=== PATIENT | female | born 1970 | race Two or more races ===

== ENCOUNTER 2016-06-05 12:08 | Emergency (ER) | payer OTHER ==
[~2016-06-05] VITALS: Ht 162.6 cm; Wt 50.0 kg
[~2016-06-05 12:08] MED LIST: HUMALOG SQ; LANTUS2P SQ; OXYC-259 PO; OXYC-395 PO; PROM2SUP RECTAL; ZOFR4TAB PO
[2016-06-05 12:11] VITALS: BP 141/91; PULSE 117; RESP 14; TEMP 98.2; O2SAT 98
[2016-06-05 12:57] LABS: BLOOD, URINE NEG (NEG); GLUCOSE,URINE 1000 mg/dL (NEG); KETONE, URINE NEG (NEG); NITRITE,URINE NEG (NEG); PH, URINE 6.5 (5.0-8.5); SQUAMOUS EPITHELIAL CELL URINE 3 /hpf (0-5); URINE COLOR DARK-YELLOW (YELLW/STRAW)
[2016-06-05 13:03] LABS: COMMENT (UR) CULT NOT INDICATED; CULTURE IF INDICATED CULT NOT INDICATED
--- NOTE | 2016-06-05 13:09 | PD ---
HPI Chief Complaint: Flank/Kidney Pain Time Seen by Provider: 13:09 Travel History International Travel<30 days: No Contact w/Intl Traveler<30days: No Traveled to known affect area: No History of Present Illness HPI 45-year-old female with history of primary sclerosing cholangitis, history of non-Hodgkin's lymphoma, chronic recurrent abdominal pain, kidney stones, diabetes mellitus, presents to emergency department for evaluation of right upper quadrant and flank pain or sustained for the last 3-4 weeks. Patient was seen here at the end of April, admitted at one point in evaluated by general surgery. Patient was referred to [facility]. Patient states that she did go to [facility] and followed up and she has another appointment in August. She tells me that they're "doing nothing." She has been nauseous. She reports urinary frequency, urgency, and decreased output. No burning. Feels as though her abdomen is bloated. She has had nights sweats with no definitive fever. She has no other symptoms reported this time. 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) Cardiovascular Problems: No Chemotherapy: Yes (10/02) Chest Pain: Yes Diabetes: Yes Diminished Hearing: No Endocrine: Yes Gastrointestinal Disorders: Yes (BILIARY DRAIN ) Headaches: No Heparin Induced Thrombocytopen: No Implanted Vascular Access Dvce: Yes Kidney Stones: Yes Psychiatric: Yes (SLIGHTLY CLAUSTROPHOBIC) Respiratory: No Immunizations Current: No Menopausal: Yes : 2 Para: 2 Miscarriage: 0 : 0 Past Surgical History Abdominal Surgery: Yes ( SPLENECTOMY, 2004, BILIARY DRAIN PLACEMENT , LIVER BIOPSY) Body Medical Devices: BILIARY DRAIN Neurologic Surgery: No Other Surgery: Yes (BILIARY DRAIN PLACED, LIVER BIOPSY) Social History Alcohol Use: No Tobacco Use: No Substance Use: No Allergies-Medications (Allergen,Severity, Reaction): Coded Allergies: Gadolinium Derivatives (Verified Allergy, Severe, BREATHING PROBLEMS, N/V, CHILLS, 06/05/16) MRI PRECAUTION (Verified Allergy, Severe, NAUSEA; PER PATIENT IT IS A GADOLINIUM ALLERGY KMD 11/25/12, 06/05/16) Morphine (Verified Allergy, Severe, BREATHING PROBLEMS, 06/05/16) Toradol (Verified Allergy, Severe, Shortness of Breath, 06/05/16) *MDRO Multi-Drug Resistant Organism (Verified Adverse Reaction, Unknown, ) MRSA (abdomen) - 03/2013, 04/2014 MRSA screen NEGATIVE - 04/15/16 & 04/17/16 Cleared per Infection Control Reported Meds & Prescriptions Reported Meds & Active Scripts Active Phenergan Supp (Promethazine HCl) 12.5 Mg Supp 12.5 Mg RECTAL Q6H PRN Zofran (Ondansetron HCl) 4 Mg Tab 4 Mg PO Q6HR PRN Oxycodone (Oxycodone HCl) 10 Mg Tab 10 Mg PO Q4H PRN Oxycontin (Oxycodone HCl) 10 Mg Tab 20 Mg PO Q12HR Reported Humalog Inj (Insulin Human Lispro) 1,000 Unit/10 Ml Vial 3 Units SQ ACHS Max dose at bedtime:( )units; sugars< 70,(0)units; sugars 150-199,(1)unit; sugars 200-249,(3)units; sugars 250-299,(5)units; sugars 300-349,(7)units; sugars more than 349,(9)units. Lantus Inj (Insulin Glargine) 1,000 Unit/10 Ml Vial 15 Units SQ BIDAC Review of Systems Except as stated in HPI: all other systems reviewed are Neg Physical Exam Narrative GENERAL: Well-nourished female patient, ambulatory no acute distress SKIN: Warm and dry. HEAD: Atraumatic. Normocephalic. EYES: Pupils equal and round. No scleral icterus. No injection or drainage. ENT: No nasal bleeding or discharge. Mucous membranes pink and moist. NECK: Trachea midline. No JVD. CARDIOVASCULAR: Regular rate and rhythm. No murmur appreciated. RESPIRATORY: No accessory muscle use. Clear to auscultation. Breath sounds equal bilaterally. GASTROINTESTINAL: Abdomen soft, nondistended. Tenderness elicited to palpation right upper quadrant. Patient does have scar tissue on the abdomen and what is seems to be palpable scar tissue around her umbilicus MUSCULOSKELETAL: No obvious deformities. No clubbing. No cyanosis. No edema. NEUROLOGICAL: Awake and alert. No obvious cranial nerve deficits. Motor grossly within normal limits. Normal speech. PSYCHIATRIC: Appropriate mood and affect; insight and judgment normal. Data Data Last Documented VS Vital Signs Date Time Temp Pulse Resp B/P Pulse Ox O2 Delivery O2 Flow Rate FiO2 06/05/16 12:11 98.2 117 14 141/91 98 Room Air Orders Urinalysis - C+S If Indicated (06/05/16 12:22) Complete Blood Count With Diff (06/05/16 12:22) Comprehensive Metabolic Panel (06/05/16 13:09) Lipase (06/05/16 13:09) Labs Laboratory Tests Test 06/05/16 06/05/16 12:25 13:41 Urine Color DARK-YELLOW Urine Turbidity CLEAR Urine pH 6.5 Urine Specific [place] 1.030 Urine Protein 30 mg/dL Urine Glucose (UA) 1000 mg/dL Urine Ketones NEG mg/dL Urine Occult Blood NEG Urine Nitrite NEG Urine Bilirubin SMALL Urine Urobilinogen LESS THAN 2.0 MG/DL Urine Leukocyte Esterase NEG Urine RBC 1 /hpf Urine WBC 1 /hpf Urine Squamous Epithelial 3 /hpf Cells Urine Amorphous Sediment RARE Microscopic Urinalysis Comment CULT NOT INDICATED White Blood Count 10.7 TH/MM3 Red Blood Count 4.22 MIL/MM3 Hemoglobin 12.5 GM/DL Hematocrit 37.3 % Mean Corpuscular Volume 88.4 FL Mean Corpuscular Hemoglobin 29.6 PG Mean Corpuscular Hemoglobin 33.5 % Concent Red Cell Distribution Width 15.7 % Platelet Count 404 TH/MM3 Mean Platelet Volume 10.6 FL Neutrophils (%) (Auto) % Lymphocytes (%) (Auto) % Monocytes (%) (Auto) % Eosinophils (%) (Auto) % Basophils (%) (Auto) % Neutrophils # (Auto) TH/MM3 Lymphocytes # (Auto) TH/MM3 Monocytes # (Auto) TH/MM3 Eosinophils # (Auto) TH/MM3 Basophils # (Auto) TH/MM3 CBC Comment AUTO DIFF Differential Total Cells 100 Counted Neutrophils % (Manual) 76 % Band Neutrophils % 8 % Lymphocytes % 12 % Monocytes % 4 % Neutrophils # (Manual) 9.0 TH/MM3 Differential Comment FINAL DIFF MANUAL Platelet Estimate NORMAL Platelet Morphology Comment NORMAL Target Cells 2+ Sodium Level 134 MEQ/L Potassium Level 3.9 MEQ/L Chloride Level 98 MEQ/L Carbon Dioxide Level 26.2 MEQ/L Anion Gap 10 MEQ/L Blood Urea Nitrogen 8 MG/DL Creatinine 0.46 MG/DL Estimat Glomerular Filtration 147 ML/MIN Rate Random Glucose 323 MG/DL Calcium Level 8.8 MG/DL Total Bilirubin 2.6 MG/DL Aspartate Amino Transf 145 U/L (AST/SGOT) Alanine Aminotransferase 134 U/L (ALT/SGPT) Alkaline Phosphatase 1342 U/L Total Protein 7.2 GM/DL Albumin 2.5 GM/DL Lipase 165 U/L MDM Medical Decision Making Medical Screen Exam Complete: Yes Emergency Medical Condition: Yes Medical Record Reviewed: Yes Differential Diagnosis Recurrent abdominal pain, sclerosing cholangitis, cirrhosis, renal calculi, pyelonephritis Narrative Course 45 year-old female presents to emergency department for evaluation. Workup was initiated in the triage area. Once a medical bed becomes available, patient will be transferred to the care of the provider did not pod. Condition: Stable Mohini Coffey Jun 05, 2016 13:09
[2016-06-05 13:48] LABS: HEMATOCRIT 37.3 % (35.0-46.0); MEAN CELL VOLUME 88.4 FL (80.0-100.0); MEAN CORPUSCULAR HEMOGLOBIN 29.6 PG (27.0-34.0); MEAN CORPUSCULAR HGB CONC 33.5 % (32.0-36.0); PLATELET COUNT 404 TH/MM3 (150-450); RED BLOOD COUNT 4.22 MIL/MM3 (4.00-5.30); RED CELL DISTRIBUTION WIDTH 15.7 % (11.6-17.2); WHITE BLOOD COUNT 10.7 TH/MM3 (4.0-11.0)
[2016-06-05 13:55] LABS: HEMO FLAGS AUTO DIFF
[2016-06-05 14:23] LABS: ANION GAP 10 MEQ/L (5-15); AST (GOT) 145 U/L (15-37); BICARBONATE 26.2 MEQ/L (21.0-32.0); BLOOD UREA NITROGEN 8 MG/DL (7-18); CHLORIDE 98 MEQ/L (98-107); GLOMERULAR FILTRATION RATE 147 ML/MIN (>89); POTASSIUM 3.9 MEQ/L (3.5-5.1); SODIUM (NA) 134 MEQ/L (136-145)
[2016-06-05 14:36] LABS: BANDS 8 % (0-6); PLATELET ESTIMATE SMEAR NORMAL (NORMAL); PLATELET MORPHOLOGY NORMAL (NORMAL); POLYS (SEG NEUTROPHILS) 76 % (16-70); SCAN/DIFF FINAL DIFF MANUAL; TARGET CELLS 2+ (NORMAL); WBC DIFF SAMPLE 100
[2016-06-05 14:40] LABS: ALKALINE PHOSPHATASE 1342 U/L (45-117); ALT (GPT) 134 U/L (10-53); TOTAL BILIRUBIN ADULT 2.6 MG/DL (0.2-1.0)
[2016-06-05] MEDS ORDERED: HYDROmorphone HCL PF 1 MG/ML VIAL IV PUSH ONE (15:30)
[2016-06-05] MEDS ORDERED: SODIUM CHLOR 0.9% 1000 ML INJ 1,000 ML IV ONE (15:30)
[2016-06-05] MEDS ORDERED: ONDANSETRON HCL 4 MG/2 ML VIAL IV PUSH ONE (15:30)
--- NOTE | 2016-06-05 16:26 | RADRPT ---
EXAM DATE/TIME: 06/05/2016 15:51 [facility] COMPARISON: MRCP W/O CONTRAST, April 19, 2016, 18:24. CT ABDOMEN & PELVIS W/O CONTRAS T, March 13, 2016, 22:13. INDICATIONS : Right flank pain and nausea. ORAL CONTRAST: No oral contrast ingested. RADIATION DOSE: 13.4 CTDIvol (mGy) MEDICAL HISTORY : Renal calculi. Diabetes mellitus type 1. "Liver tumor." non-Hodgkin's lymphoma. SURGICAL HISTORY : Splenectomy. Biliary drain. ENCOUNTER: Initial ACUITY: 1 month PAIN SCALE: 8/10 LOCATION: Right flank TECHNIQUE: Volumetric scanning of the abdomen and pelvis was performed. Using automated exposure control and adjustment of the mA and/or kV according to patient size, radiation dose was kept as low as reasonably achievable to obtain optimal diagnostic quality images. FINDINGS: There is a cirrhotic appearance of the liver with atrophy of the right lobe and hypertr ophy of the left lobe. There continues to be pneumobilia. This was present previously. There is rg e heterogeneity to the right lobe of the liver. This was present previously. The liver has a nodular surface. The spleen appears absent. There is a 0.7 cm nonobstructing left renal stone seen at the inferior collecting system. The kidneys appear otherwise normal for a noncontrast CT examination. T he adrenal glands are unremarkable. The pancreatic duct appears dilated measuring up to 9 mm in the pancreatic body. The duct does not appear clearly dilated at the pancreatic head. The bowel is gross ly unremarkable. The pelvic structures appear grossly intact. The lung bases are clear. There is some degenerative change at the lower lumbar spine. CONCLUSION: 1. Cirrhotic liver. 2. Pneumobilia. This was present previously. 3. Dilatation of the pancreatic duct at the pancreatic body measuring 9 mm. This appearance was prese nt previously. The pancreatic duct does not appear definitely dilated at the pancreatic head. A con trast enhanced CT examination using a pancreatic protocol could be used to further evaluate for any c ause for some ductal obstruction. 4. Nonobstructing left renal stones. Mele Cuba MD on June 05, 2016 at 16:11 Board Certified Radiologist. This report was verified electronically.
[2016-06-05] MEDS ORDERED: OXYC-395 PO (16:38)
[2016-06-05] MEDS ORDERED: ZOFR4TAB3 SL (16:38)
--- NOTE | 2016-06-05 16:38 | PD ---
Data Data Last Documented VS Vital Signs Date Time Temp Pulse Resp B/P Pulse Ox O2 Delivery O2 Flow Rate FiO2 06/05/16 12:11 98.2 117 14 141/91 98 Room Air Orders Urinalysis - C+S If Indicated (06/05/16 12:22) Complete Blood Count With Diff (06/05/16 12:22) Comprehensive Metabolic Panel (06/05/16 13:09) Lipase (06/05/16 13:09) Ct Abd/Pel W/O Iv Contrast (06/05/16 ) Sodium Chlor 0.9% 1000 Ml Inj (Ns 1000 M (06/05/16 15:30) Hydromorphone Pf Inj (Dilaudid Pf Inj) (06/05/16 15:30) Ondansetron Inj (Zofran Inj) (06/05/16 15:30) Labs Laboratory Tests Test 06/05/16 06/05/16 12:25 13:41 Urine Color DARK-YELLOW Urine Turbidity CLEAR Urine pH 6.5 Urine Specific [place] 1.030 Urine Protein 30 mg/dL Urine Glucose (UA) 1000 mg/dL Urine Ketones NEG mg/dL Urine Occult Blood NEG Urine Nitrite NEG Urine Bilirubin SMALL Urine Urobilinogen LESS THAN 2.0 MG/DL Urine Leukocyte Esterase NEG Urine RBC 1 /hpf Urine WBC 1 /hpf Urine Squamous Epithelial 3 /hpf Cells Urine Amorphous Sediment RARE Microscopic Urinalysis Comment CULT NOT INDICATED White Blood Count 10.7 TH/MM3 Red Blood Count 4.22 MIL/MM3 Hemoglobin 12.5 GM/DL Hematocrit 37.3 % Mean Corpuscular Volume 88.4 FL Mean Corpuscular Hemoglobin 29.6 PG Mean Corpuscular Hemoglobin 33.5 % Concent Red Cell Distribution Width 15.7 % Platelet Count 404 TH/MM3 Mean Platelet Volume 10.6 FL Neutrophils (%) (Auto) % Lymphocytes (%) (Auto) % Monocytes (%) (Auto) % Eosinophils (%) (Auto) % Basophils (%) (Auto) % Neutrophils # (Auto) TH/MM3 Lymphocytes # (Auto) TH/MM3 Monocytes # (Auto) TH/MM3 Eosinophils # (Auto) TH/MM3 Basophils # (Auto) TH/MM3 CBC Comment AUTO DIFF Differential Total Cells 100 Counted Neutrophils % (Manual) 76 % Band Neutrophils % 8 % Lymphocytes % 12 % Monocytes % 4 % Neutrophils # (Manual) 9.0 TH/MM3 Differential Comment FINAL DIFF MANUAL Platelet Estimate NORMAL Platelet Morphology Comment NORMAL Target Cells 2+ Sodium Level 134 MEQ/L Potassium Level 3.9 MEQ/L Chloride Level 98 MEQ/L Carbon Dioxide Level 26.2 MEQ/L Anion Gap 10 MEQ/L Blood Urea Nitrogen 8 MG/DL Creatinine 0.46 MG/DL Estimat Glomerular Filtration 147 ML/MIN Rate Random Glucose 323 MG/DL Calcium Level 8.8 MG/DL Total Bilirubin 2.6 MG/DL Aspartate Amino Transf 145 U/L (AST/SGOT) Alanine Aminotransferase 134 U/L (ALT/SGPT) Alkaline Phosphatase 1342 U/L Total Protein 7.2 GM/DL Albumin 2.5 GM/DL Lipase 165 U/L [facility] Supervised Visit with MYRON: Yes Narrative Course The history, exam, and medical decision-making in the associated midlevel provider note were completed with my assistance. I reviewed and agree with the findings presented. I attest that I had a [id number] encounter with the patient on the same day, and personally performed and documented my assessment and findings in the medical record. *My assessment and Findings: This is a 45-year-old female who has a history of primary sclerosing cholangitis who presents to the emergency department with persistent right upper quadrant and right flank pain, constant, moderate severity, associated with intermittent vomiting. Her symptoms of been chronic and intermittent going on for more than a month. She's been trying to get into her primary care physician but can't get into him until early June taken and her flaring machine operator in [place] until August. She's not taking anything for pain at home. Her symptoms are somewhat different in that she has more right flank pain than normal and she thinks she may have a kidney stone. She is nontoxic appearing on exam. She does not appear dehydrated. Her labs appear similar to her baseline. She is not febrile. I long conversation with this patient as her symptoms are chronic in nature and she requires chronic pain management and a flaring machine operator to follow her. I don't think she requires admission to the hospital at this time as her symptoms are unchanged. Patient can be discharged home with pain control. Diagnosis Primary Impression: Sclerosing cholangitis Patient Instructions: General Instructions Additional Instruction: If you develop severe or worsening abdominal pain, fever>100.4, persistent vomiting or inability to eat or drink return to the emergency department immediately. Follow up with your primary care physician as soon as possible for further evaluation. Med/Other Pt SpecificInfo: Prescription(s) given Scripts Ondansetron Odt (Zofran Odt)4 Mg Tab4 Mg SL Q6HR PRN (Nausea/Vomiting) #30 TAB Ref 0 Prov:Vivian Fortune MD 06/05/16 Oxycodone 10 Mg Tab10 Mg PO Q6H PRN (PAIN) #20 TAB Ref 0 Prov:Vivian Fortune MD 06/05/16 Disposition: 01 DISCHARGE HOME Condition: Stable Vivian Fortune MD Jun 05, 2016 16:38
[2016-06-05 17:47] VITALS: BP 131/72
== END 2016-06-05 17:49 | disposition home or self-care (01) ==
LOC: NEPC 12:08
DX: K83.0 Cholangitis (principal); R11.0 Nausea; R11.10 Vomiting, unspecified; R14.0 Abdominal distension (gaseous); R39.15 Urgency of urination; E11.9 Type 2 diabetes mellitus without complications
CPT/HCPCS: 74176; 80053; 81001; 83690; 85007; 85027; 96374; 96375; 99284; J1170; J2405; J7030

== ENCOUNTER 2016-06-13 16:12 | Emergency (ER) | payer OTHER ==
[~2016-06-13] VITALS: Ht 162.6 cm; Wt 52.5 kg
[~2016-06-13 16:12] MED LIST changes: +ZOFR4TAB3 SL
[2016-06-13 16:48] VITALS: BP 112/76; PULSE 89; TEMP 98.7; O2SAT 99
[2016-06-13] MEDS ORDERED: SODIUM CHLOR 0.9% 1000 ML INJ 1,000 ML IV ONE ×2 (17:00→19:00)
[2016-06-13] MEDS ORDERED: ONDANSETRON HCL 4 MG/2 ML VIAL IV PUSH ONE (17:00)
[2016-06-13] MEDS ORDERED: HYDROmorphone HCL PF 1 MG/ML VIAL IV PUSH ONE (17:00)
[2016-06-13] MEDS ORDERED: SODIUM CHLORIDE 0.9% FLUSH 5 ML FLUSH IVF PRN (17:00)
[2016-06-13 17:21] LABS: BLOOD, URINE NEG (NEG); GLUCOSE,URINE 1000 mg/dL (NEG); KETONE, URINE NEG (NEG); NITRITE,URINE NEG (NEG); PH, URINE 6.5 (5.0-8.5); SQUAMOUS EPITHELIAL CELL URINE 2 /hpf (0-5); URINE COLOR YELLOW (YELLW/STRAW)
--- NOTE | 2016-06-13 17:24 | PD ---
HPI Chief Complaint: Abdominal Pain Time Seen by Provider: 16:45 Travel History International Travel<30 days: No Contact w/Intl Traveler<30days: No Traveled to known affect area: No History of Present Illness HPI 45-year-old female with history of non-Hodgkin's lymphoma status post chemotherapy in 2004, sclerosing cholangitis, chronic abdominal pain, seen in the emergency department several times for recurrent abdominal pain, last seen on 06/05/16, here for evaluation of right upper quadrant abdominal pain. The patient reports that her chocolate refining roller is in [place]. She states that her pain has been gone for the last 2 months. She called her chocolate refining roller today who advised her to go to her nearest emergency department for evaluation. The patient has had subjective fevers and chills. Pain is sharp, right upper quadrant, goes up and down her right flank, constant , moderate to severe, worse with movement and palpation. The patient also reports feeling nauseous and having several episodes of vomiting. No diarrhea. She states that her urine is dark and she thinks her eyes looked yellow. 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) Cardiovascular Problems: No Chemotherapy: Yes (10/02) Chest Pain: Yes Diabetes: Yes (insulin diabetic) Patient Takes Glucophage: No Diminished Hearing: No Endocrine: Yes Gastrointestinal Disorders: Yes Genitourinary: Yes Headaches: No Heparin Induced Thrombocytopen: No Implanted Vascular Access Dvce: Yes Kidney Stones: Yes Medical other: Yes Musculoskeletal: Yes Psychiatric: Yes (SLIGHTLY CLAUSTROPHOBIC) Respiratory: No Immunizations Current: No Ulcer: Yes ?: Unknown Menopausal: Yes : 2 Para: 2 Miscarriage: 0 : 0 Past Surgical History Surgical History: No Previous Surgery Body Medical Devices: BILIARY DRAIN Neurologic Surgery: No Other Surgery: Yes (BILIARY DRAIN PLACED, LIVER BIOPSY) Social History Alcohol Use: No Tobacco Use: No Substance Use: No Allergies-Medications (Allergen,Severity, Reaction): Coded Allergies: Gadolinium Derivatives (Verified Allergy, Severe, BREATHING PROBLEMS, N/V, CHILLS, 06/13/16) MRI PRECAUTION (Verified Allergy, Severe, NAUSEA; PER PATIENT IT IS A GADOLINIUM ALLERGY KMD 11/25/12, 06/13/16) Morphine (Verified Allergy, Severe, BREATHING PROBLEMS, 06/13/16) Toradol (Verified Allergy, Severe, Shortness of Breath, 06/13/16) *MDRO Multi-Drug Resistant Organism (Verified Adverse Reaction, Unknown, ) MRSA (abdomen) - 03/2013, 04/2014 MRSA screen NEGATIVE - 04/15/16 & 04/17/16 Cleared per Infection Control Reported Meds & Prescriptions Reported Meds & Active Scripts Active Reported Humalog Inj (Insulin Human Lispro) 1,000 Unit/10 Ml Vial 3 Units SQ ACHS Max dose at bedtime:( )units; sugars< 70,(0)units; sugars 150-199,(1)unit; sugars 200-249,(3)units; sugars 250-299,(5)units; sugars 300-349,(7)units; sugars more than 349,(9)units. Lantus Inj (Insulin Glargine) 1,000 Unit/10 Ml Vial 15 Units SQ BIDAC Review of Systems Except as stated in HPI: all other systems reviewed are Neg Physical Exam Narrative GENERAL: Well-developed, thin, comfortable, no acute distress. SKIN: Warm and dry. No rash. HEAD: Atraumatic. Normocephalic. EYES: Pupils equal and round. Mild scleral icterus. No injection or drainage. ENT: No nasal bleeding or discharge. Mucous membranes pink and moist. NECK: Trachea midline. No JVD. CARDIOVASCULAR: Regular rate and rhythm. RESPIRATORY: No accessory muscle use. Clear to auscultation. Breath sounds equal bilaterally. GASTROINTESTINAL: Abdomen soft, nondistended. Mild diffuse abdominal tenderness without peritoneal signs. MUSCULOSKELETAL: No obvious deformities. No clubbing. No cyanosis. No edema. NEUROLOGICAL: Awake and alert. No obvious cranial nerve deficits. Motor grossly within normal limits. Normal speech. PSYCHIATRIC: Appropriate mood and affect; insight and judgment normal. Data Data Last Documented VS Vital Signs Date Time Temp Pulse Resp B/P Pulse Ox O2 Delivery O2 Flow Rate FiO2 06/13/16 18:36 87 138/83 96 Room Air 06/13/16 16:48 98.7 Orders Beta Hcg (Quant/Titer) (06/13/16 16:52) Complete Blood Count With Diff (06/13/16 16:52) Comprehensive Metabolic Panel (06/13/16 16:52) Lipase (06/13/16 16:52) Lactic Acid (06/13/16 16:52) Prothrombin Time / Inr (Pt) (06/13/16 16:52) Act Partial Throm Time (Ptt) (06/13/16 16:52) Urinalysis - C+S If Indicated (06/13/16 16:52) Ct Abd/Pel W Iv Contrast(Rout) (06/13/16 16:52) Iv Access Insert/Monitor (06/13/16 16:52) Ecg Monitoring (06/13/16 16:52) Oximetry (06/13/16 16:52) Sodium Chloride 0.9% Flush (Ns Flush) (06/13/16 17:00) Sodium Chlor 0.9% 1000 Ml Inj (Ns 1000 M (06/13/16 17:00) Hydromorphone Pf Inj (Dilaudid Pf Inj) (06/13/16 17:00) Ondansetron Inj (Zofran Inj) (06/13/16 17:00) Labs Laboratory Tests Test 06/13/16 06/13/16 16:59 17:30 Urine Color YELLOW Urine Turbidity CLEAR Urine pH 6.5 Urine Specific [place] 1.032 Urine Protein NEG mg/dL Urine Glucose (UA) 1000 mg/dL Urine Ketones NEG mg/dL Urine Occult Blood NEG Urine Nitrite NEG Urine Bilirubin NEG Urine Urobilinogen LESS THAN 2.0 MG/DL Urine Leukocyte Esterase NEG Urine RBC 2 /hpf Urine WBC 1 /hpf Urine Squamous Epithelial 2 /hpf Cells Microscopic Urinalysis Comment CULT NOT INDICATED White Blood Count 6.4 TH/MM3 Red Blood Count 3.90 MIL/MM3 Hemoglobin 11.5 GM/DL Hematocrit 34.6 % Mean Corpuscular Volume 88.8 FL Mean Corpuscular Hemoglobin 29.6 PG Mean Corpuscular Hemoglobin 33.3 % Concent Red Cell Distribution Width 15.8 % Platelet Count 359 TH/MM3 Mean Platelet Volume 11.7 FL Neutrophils (%) (Auto) 69.8 % Lymphocytes (%) (Auto) 12.0 % Monocytes (%) (Auto) 13.9 % Eosinophils (%) (Auto) 1.5 % Basophils (%) (Auto) 2.8 % Neutrophils # (Auto) 4.5 TH/MM3 Lymphocytes # (Auto) 0.8 TH/MM3 Monocytes # (Auto) 0.9 TH/MM3 Eosinophils # (Auto) 0.1 TH/MM3 Basophils # (Auto) 0.2 TH/MM3 CBC Comment AUTO DIFF Differential Comment AUTO DIFF CONFIRMED Platelet Estimate NORMAL Platelet Morphology Comment ENLARGED Target Cells 1+ Germain Cells 1+ Prothrombin Time 11.4 SEC Prothromb Time International 1.0 RATIO Ratio Activated Partial 28.0 SEC Thromboplast Time Sodium Level 134 MEQ/L Potassium Level 3.7 MEQ/L Chloride Level 98 MEQ/L Carbon Dioxide Level 26.5 MEQ/L Anion Gap 10 MEQ/L Blood Urea Nitrogen 7 MG/DL Creatinine 0.57 MG/DL Estimat Glomerular Filtration 115 ML/MIN Rate Random Glucose 443 MG/DL Lactic Acid Level 0.8 mmol/L Calcium Level 8.3 MG/DL Aspartate Amino Transf 131 U/L (AST/SGOT) Albumin 2.3 GM/DL Lipase 105 U/L [facility] Medical Decision Making Medical Screen Exam Complete: Yes Emergency Medical Condition: Yes Medical Record Reviewed: Yes Differential Diagnosis Chronic abdominal pain secondary to sclerosing cholangitis, ascending cholangitis, cholecystitis, nephrolithiasis, pyelonephritis, drug-seeking Narrative Course Initial vital signs show heart rate 89, blood pressure 112/76, pulse ox 99% on room air, oral temp of 98.7 degrees Fahrenheit. CBC shows WBC 6.4, hemoglobin 11.5, hematocrit 34.6, platelets 359, CMP is remarkable for random glucose 443. Her bicarbonate is 26.5. She is not in DKA. Lactic acid is 0.8. UA shows 1000 glucose which she has had in the past, not suggestive of UTI. Patient was given IV insulin, and 2 L of normal saline IV. At approximately 7:00 PM at the end of my shift the patient was signed out to oncoming provider Dr. Fortune who will follow up with imaging results and will disposition the patient. Naresh Almanza MD Jun 13, 2016 17:24
[2016-06-13 17:25] VITALS: O2SAT 95
[2016-06-13 17:26] LABS: COMMENT (UR) CULT NOT INDICATED; CULTURE IF INDICATED CULT NOT INDICATED
[2016-06-13 17:55] LABS: AUTOMATED NEUTROPHIL # 4.5 TH/MM3 (1.8-7.7); BASOPHIL # 0.2 TH/MM3 (0-0.2); BASOPHIL % 2.8 % (0.0-2.0); EOSINOPHIL # 0.1 TH/MM3 (0-0.4); EOSINOPHIL % 1.5 % (0.0-4.0); HEMATOCRIT 34.6 % (35.0-46.0); LYMPHOCYTE # 0.8 TH/MM3 (1.0-4.8); MEAN CELL VOLUME 88.8 FL (80.0-100.0); MEAN CORPUSCULAR HEMOGLOBIN 29.6 PG (27.0-34.0); MEAN CORPUSCULAR HGB CONC 33.3 % (32.0-36.0); MONO % 13.9 % (0.0-8.0); NEUT % 69.8 % (16.0-70.0); PLATELET COUNT 359 TH/MM3 (150-450); RED CELL DISTRIBUTION WIDTH 15.8 % (11.6-17.2); WHITE BLOOD COUNT 6.4 TH/MM3 (4.0-11.0)
[2016-06-13 18:00] LABS: HEMO FLAGS AUTO DIFF
[2016-06-13 18:08] LABS: PROTHROMBIN TIME - PATIENT 11.4 SEC (9.8-11.6)
[2016-06-13 18:35] LABS: SCAN/DIFF AUTO DIFF CONFIRMED
[2016-06-13 18:36] VITALS: BP 138/83; PULSE 87; O2SAT 96
[2016-06-13 18:36] LABS: BURR CELLS 1+ (NORMAL); PLATELET ESTIMATE SMEAR NORMAL (NORMAL); PLATELET MORPHOLOGY ENLARGED (NORMAL); TARGET CELLS 1+ (NORMAL)
[2016-06-13 18:41] LABS: ANION GAP 10 MEQ/L (5-15); AST (GOT) 131 U/L (15-37); BICARBONATE 26.5 MEQ/L (21.0-32.0); BLOOD UREA NITROGEN 7 MG/DL (7-18); CHLORIDE 98 MEQ/L (98-107); GLOMERULAR FILTRATION RATE 115 ML/MIN (>89); POTASSIUM 3.7 MEQ/L (3.5-5.1); SODIUM (NA) 134 MEQ/L (136-145)
[2016-06-13 18:56] LABS: ALKALINE PHOSPHATASE 1520 U/L (45-117); ALT (GPT) 126 U/L (10-53); BETA HCG QUANT LESS THAN 1 MIU/ML (0-5); TOTAL BILIRUBIN ADULT 1.9 MG/DL (0.2-1.0)
[2016-06-13] MEDS ORDERED: INSULIN HUMAN REGULAR 1,000 UNITS/10 ML VIAL IV PUSH ONE (19:00)
[2016-06-13] MEDS ORDERED: POTASSIUM CL 40 MEQ/30 ML LIQ UDC PO ONE (19:00)
[2016-06-13 19:06] VITALS: BP 129/89; PULSE 89; O2SAT 96
[2016-06-13] MEDS ORDERED: IOHEXOL 350 MG/ML 10 ML VIAL (for RAD DIAG) IV ONE (19:37)
--- NOTE | 2016-06-13 19:50 | RADRPT ---
EXAM DATE/TIME: 06/13/2016 19:32 [facility] COMPARISON: CT ABDOMEN & PELVIS W/O CONTRAST, June 05, 2016, 15:51. CT ABDOMEN & PELVIS W CONTRAST, April 14, 2016, 22:04. INDICATIONS : Right abdominal pain for 2 months; worsening over the past week. IV CONTRAST: 96 cc Omnipaque 350 (iohexol) IV ORAL CONTRAST: No oral contrast ingested. RADIATION DOSE: 4.52 CTDIvol (mGy) MEDICAL HISTORY : Ulcers. Diabetes mellitus type 2. Renal calculi. Cirrhosis; Non-hodgkin's lymphoma. SURGICAL HISTORY : Splenectomy. Liver biopsy. ENCOUNTER: Initial ACUITY: 2 months PAIN SCALE: 10/10 LOCATION: Right Abdomen/pelvis TECHNIQUE: Volumetric scanning of the abdomen and pelvis was performed. Using automated exposure control and ad justment of the mA and/or kV according to patient size, radiation dose was kept as low as reasonably achievable to obtain optimal diagnostic quality images. FINDINGS: LOWER LUNGS: The visualized lower lungs are clear. LIVER: He liver remains cirrhotic in appearance with atrophy of the right lobe and hypertrophy of the left l obe. Margins are mildly lobular and has mild heterogeneity with no distinct focal mass or definite du ctal and dilatation. Pneumobilia is again noted and the patient is status post cholecystectomy. The p ortal venous system is patent. SPLEEN: Status post splenectomy. PANCREAS: The pancreas remains atrophic in appearance with mild dilatation of the duct again noted in the pancr eatic tail and body are not changed. This measures up to approximately 6-7 mm. There is no definite m ass. KIDNEYS: Normal in size and shape. There is no mass or hydronephrosis. A nonobstructing calculus is again not ed in the left lower pole. ADRENAL GLANDS: Within normal limits. VASCULAR: There is no aortic aneurysm. BOWEL/MESENTERY: Is mildly nonspecific bowel gas pattern with moderate amount of stool. There are multiple loops of no ndilated air-containing small bowel no free air or fluid. There is no free intraperitoneal air or flu id. ABDOMINAL WALL: Within normal limits. RETROPERITONEUM: There is no lymphadenopathy. BLADDER: No wall thickening or mass. REPRODUCTIVE: Within normal limits. INGUINAL: There is no lymphadenopathy or hernia. MUSCULOSKELETAL: Within normal limits for patient age. CONCLUSION: 1. The liver remains cirrhotic in appearance with pneumobilia again noted. 2. Mildly nonspecific bowel gas pattern with moderate amount of stool no evidence of obstruction. 3. Nonobstructing left renal calculi again noted. 4. The pancreas remains atrophic in appearance with dilatation of portions of the pancreatic duct aga in noted in the body and tell. Ayan Metcalf MD on June 13, 2016 at 19:43 Board Certified Radiologist. This report was verified electronically.
--- NOTE | 2016-06-13 19:57 | PD ---
Data Data Last Documented VS Vital Signs Date Time Temp Pulse Resp B/P Pulse Ox O2 Delivery O2 Flow Rate FiO2 06/13/16 19:07 17 06/13/16 19:06 89 129/89 96 Room Air 06/13/16 16:48 98.7 Orders Beta Hcg (Quant/Titer) (06/13/16 16:52) Complete Blood Count With Diff (06/13/16 16:52) Comprehensive Metabolic Panel (06/13/16 16:52) Lipase (06/13/16 16:52) Lactic Acid (06/13/16 16:52) Prothrombin Time / Inr (Pt) (06/13/16 16:52) Act Partial Throm Time (Ptt) (06/13/16 16:52) Urinalysis - C+S If Indicated (06/13/16 16:52) Ct Abd/Pel W Iv Contrast(Rout) (06/13/16 16:52) Iv Access Insert/Monitor (06/13/16 16:52) Ecg Monitoring (06/13/16 16:52) Oximetry (06/13/16 16:52) Sodium Chloride 0.9% Flush (Ns Flush) (06/13/16 17:00) Sodium Chlor 0.9% 1000 Ml Inj (Ns 1000 M (06/13/16 17:00) Hydromorphone Pf Inj (Dilaudid Pf Inj) (06/13/16 17:00) Ondansetron Inj (Zofran Inj) (06/13/16 17:00) Sodium Chlor 0.9% 1000 Ml Inj (Ns 1000 M (06/13/16 19:00) Potassium Cl 40 Meq/30 Ml Liq (Kcl 40 Me (06/13/16 19:00) Insulin Human Regular Inj (Novolin R Inj (06/13/16 19:00) Iohexol 350 Inj (Omnipaque 350 Inj) (06/13/16 19:37) Labs Laboratory Tests Test 06/13/16 06/13/16 16:59 17:30 Urine Color YELLOW Urine Turbidity CLEAR Urine pH 6.5 Urine Specific [place] 1.032 Urine Protein NEG mg/dL Urine Glucose (UA) 1000 mg/dL Urine Ketones NEG mg/dL Urine Occult Blood NEG Urine Nitrite NEG Urine Bilirubin NEG Urine Urobilinogen LESS THAN 2.0 MG/DL Urine Leukocyte Esterase NEG Urine RBC 2 /hpf Urine WBC 1 /hpf Urine Squamous Epithelial 2 /hpf Cells Microscopic Urinalysis Comment CULT NOT INDICATED White Blood Count 6.4 TH/MM3 Red Blood Count 3.90 MIL/MM3 Hemoglobin 11.5 GM/DL Hematocrit 34.6 % Mean Corpuscular Volume 88.8 FL Mean Corpuscular Hemoglobin 29.6 PG Mean Corpuscular Hemoglobin 33.3 % Concent Red Cell Distribution Width 15.8 % Platelet Count 359 TH/MM3 Mean Platelet Volume 11.7 FL Neutrophils (%) (Auto) 69.8 % Lymphocytes (%) (Auto) 12.0 % Monocytes (%) (Auto) 13.9 % Eosinophils (%) (Auto) 1.5 % Basophils (%) (Auto) 2.8 % Neutrophils # (Auto) 4.5 TH/MM3 Lymphocytes # (Auto) 0.8 TH/MM3 Monocytes # (Auto) 0.9 TH/MM3 Eosinophils # (Auto) 0.1 TH/MM3 Basophils # (Auto) 0.2 TH/MM3 CBC Comment AUTO DIFF Differential Comment AUTO DIFF CONFIRMED Platelet Estimate NORMAL Platelet Morphology Comment ENLARGED Target Cells 1+ [place] Cells 1+ Prothrombin Time 11.4 SEC Prothromb Time International 1.0 RATIO Ratio Activated Partial 28.0 SEC Thromboplast Time Sodium Level 134 MEQ/L Potassium Level 3.7 MEQ/L Chloride Level 98 MEQ/L Carbon Dioxide Level 26.5 MEQ/L Anion Gap 10 MEQ/L Blood Urea Nitrogen 7 MG/DL Creatinine 0.57 MG/DL Estimat Glomerular Filtration 115 ML/MIN Rate Random Glucose 443 MG/DL Lactic Acid Level 0.8 mmol/L Calcium Level 8.3 MG/DL Total Bilirubin 1.9 MG/DL Aspartate Amino Transf 131 U/L (AST/SGOT) Alanine Aminotransferase 126 U/L (ALT/SGPT) Alkaline Phosphatase 1520 U/L Total Protein 6.8 GM/DL Albumin 2.3 GM/DL Lipase 105 U/L Human Chorionic Gonadotropin, LESS THAN 1 Quant MIU/ML MDM Supervised Visit with MYRON: No Narrative Course This is a patient with a severe over care for from Dr. Almanza. She has a history of primary sclerosing cholangitis and presents again with abdominal pain and vomiting. She came in because she says her GI doctor was concerned that she may have acute cholangitis. She has a normal white blood cell count. She does have some hyperglycemia. LFTs are similar to her prior. CT was obtained which is unchanged from prior. Patient has no evidence of dehydration with no ketones in the urine and a normal BUN/creatinine. I think the patient is safe for discharge and follow-up with her outpatient physicians. Diagnosis Primary Impression: Sclerosing cholangitis Patient Instructions: General Instructions Additional Instruction: If you develop severe or worsening abdominal pain, fever>100.4, persistent vomiting or inability to eat or drink return to the emergency department immediately. Follow up with your primary care physician in 1-2 days for a check-up. Med/Other Pt SpecificInfo: No Change to Meds Disposition: 01 DISCHARGE HOME Condition: Stable Vivian Fortune MD Jun 13, 2016 19:57
== END 2016-06-13 21:03 | disposition home or self-care (01) ==
LOC: NEPC 16:12
DX: K83.0 Cholangitis (principal); E11.9 Type 2 diabetes mellitus without complications; G89.29 Other chronic pain
CPT/HCPCS: 74177; 80053; 81001; 83605; 83690; 84702; 85025; 85610; 85730; 96374; 96375; 99284; J1170; J1815; J2405; J7030; Q9967

== ENCOUNTER 2016-07-19 11:16 | Inpatient (IN) | payer OTHER ==
[~2016-07-19] VITALS: Ht 162.6 cm; Wt 56.5 kg
[2016-07-19] VITALS (11 sets, daily range): BP systolic 71–116; BP diastolic 47–70; PULSE 69–130; RESP 14–28; TEMP 98.3–100.7; O2SAT 90–99
[~2016-07-19 11:16] MED LIST changes: -OXYC-259 PO; -OXYC-395 PO; -PROM2SUP RECTAL; -ZOFR4TAB PO; -ZOFR4TAB3 SL
[2016-07-19] MEDS ORDERED: SODIUM CHLOR 0.9% 1000 ML INJ 800 ML IV ONE (11:41)
[2016-07-19] MEDS ORDERED: SODIUM CHLOR 0.9% 1000 ML INJ 1,000 ML IV ONE ×2 (11:41→16:00)
[2016-07-19] MEDS ORDERED: HYDROmorphone HCL PF 1 MG/ML VIAL IV PUSH ONE (11:45)
[2016-07-19] MEDS ORDERED: ONDANSETRON HCL 4 MG/2 ML VIAL IV PUSH ONE (11:45)
[2016-07-19] MEDS ORDERED: ACETAMINOPHEN 325 MG TAB PO ONE (11:45)
--- NOTE | 2016-07-19 12:39 | RADRPT ---
EXAM DATE/TIME: 07/19/2016 12:25 [facility] COMPARISON: GI LAB ERCP, April 27, 2016, 14:02. INDICATIONS : Patient has had chest pain since yesterday. MEDICAL HISTORY : Ulcers. Diabetes mellitus type 2. Renal calculi. Cirrhosis; Non-hodgkin's lymphoma. SURGICAL HISTORY : Splenectomy. Liver biopsy. ENCOUNTER: Initial ACUITY: 1 day PAIN SCORE: 5/10 LOCATION: chest FINDINGS: A single view of the chest demonstrates the lungs to be symmetrically aerated without evidence of mas s, infiltrate or effusion. The cardiomediastinal contours are unremarkable. Osseous structures are intact. CONCLUSION: 1. No acute cardiopulmonary findings. Farzad Morales MD on July 19, 2016 at 12:37 Board Certified Radiologist. This report was verified electronically.
[2016-07-19 12:40] LABS: BASOPHIL % 0.2 % (0.0-2.0); HEMATOCRIT 38.7 % (35.0-46.0); LYMPH % 6.5 % (9.0-44.0); LYMPHOCYTE # 1.1 TH/MM3 (1.0-4.8); MEAN CELL VOLUME 83.5 FL (80.0-100.0); MEAN CORPUSCULAR HEMOGLOBIN 27.7 PG (27.0-34.0); MEAN CORPUSCULAR HGB CONC 33.2 % (32.0-36.0); MONO % 1.8 % (0.0-8.0); NEUT % 91.5 % (16.0-70.0); PLATELET COUNT 359 TH/MM3 (150-450); RED BLOOD COUNT 4.64 MIL/MM3 (4.00-5.30); RED CELL DISTRIBUTION WIDTH 17.1 % (11.6-17.2); WHITE BLOOD COUNT 16.4 TH/MM3 (4.0-11.0)
[2016-07-19 12:43] LABS: HEMO FLAGS AUTO DIFF
[2016-07-19 12:47] LABS: ALT (GPT) 196 U/L (10-53); ANION GAP 15 MEQ/L (5-15); BICARBONATE 21.8 MEQ/L (21.0-32.0); BLOOD UREA NITROGEN 20 MG/DL (7-18); CHLORIDE 97 MEQ/L (98-107); GLOMERULAR FILTRATION RATE 53 ML/MIN (>89); SODIUM (NA) 134 MEQ/L (136-145)
[2016-07-19 12:48] LABS: AST (GOT) 262 U/L (15-37); POTASSIUM 4.7 MEQ/L (3.5-5.1)
[2016-07-19 12:58] LABS: ALKALINE PHOSPHATASE 1744 U/L (45-117)
[2016-07-19 13:14] LABS: TARGET CELLS 2+ (NORMAL)
[2016-07-19 13:16] LABS: HOWELL-JOLLY BODIES PRESENT (NONE SEEN); PLATELET ESTIMATE SMEAR HIGH (NORMAL); PLATELET MORPHOLOGY ENLARGED (NORMAL)
[2016-07-19 13:17] LABS: SCAN/DIFF AUTO DIFF CONFIRMED
[2016-07-19] MEDS ORDERED: NOREPINEPHRINE 4 MG/4 ML AMP ONE (14:14)
[2016-07-19] MEDS ORDERED: TERBUTALINE INJ 1 MG/ML AMP SQ PRN (14:15)
[2016-07-19] MEDS ORDERED: SODIUM CHLOR 0.9% 1000 ML INJ 1,000 ML IV SCH (14:15)
[2016-07-19] MEDS ORDERED: VANCOMYCIN INJ 800 MG in SODIUM CHLOR 0.9% 250 ML INJ 250 ML IV ONE (14:15)
[2016-07-19] MEDS ORDERED: PIPERACIL-TAZO 3.375 GM PREMIX 50 ML IV ONE (14:15)
[2016-07-19 14:19] LABS: LACTIC ACID GHOST NOT REPORTABLE
[2016-07-19] MEDS ORDERED: RESP: ALBUTEROL 2.5 MG/IPRATROPIUM 0.5 MG NEB (PRN) INH (15:15)
[2016-07-19] MEDS ORDERED: MISCELLANEOUS NURSING INFORMATION XX SCH (15:15)
[2016-07-19] MEDS ORDERED: CHLORHEXIDINE GLUCONATE 2 % 1 PACK (2 CLOTHS) TOP PRN (15:15)
[2016-07-19] MEDS ORDERED: GLUCAGON 1 MG/ML VIAL OTHER PRN (15:15)
[2016-07-19] MEDS ORDERED: DEXTROSE 50% IN WATER 50 ML VIAL(D50) IV PUSH PRN (15:15)
[2016-07-19] MEDS ORDERED: IOHEXOL 350 MG/ML 10 ML VIAL (for RAD DIAG) IV ONE (16:00)
[2016-07-19] MEDS: RESP: ALBUTEROL 2.5 MG/IPRATROPIUM 0.5 MG NEB (SCH) INH ×2 (16:00→22:00)
[2016-07-19] MEDS ORDERED: Vancomycin Consult Pharmacy XX SCH (16:15)
--- NOTE | 2016-07-19 16:15 | RADRPT ---
EXAM DATE/TIME: 07/19/2016 16:01 [facility] COMPARISON: No previous studies available for comparison. INDICATIONS : Fever, syncopal episode, hypotension. RADIATION DOSE: 56.35 CTDIvol (mGy) MEDICAL HISTORY : Diabetes mellitus type 2. Non-Hodgkin's lymphoma. SURGICAL HISTORY : Splenectomy. ENCOUNTER: Initial ACUITY: 1 day PAIN SCALE: 10/10 LOCATION: cranial TECHNIQUE: Multiple contiguous axial images were obtained of the head. Using automated exposure control and adj ustment of the mA and/or kV according to patient size, radiation dose was kept as low as reasonably a chievable to obtain optimal diagnostic quality images. FINDINGS: CEREBRUM: The ventricles are normal for age. No evidence of midline shift, mass lesion, hemorrhage or acute in farction. No extra-axial fluid collections are seen. POSTERIOR FOSSA: The cerebellum and brainstem are intact. The 4th ventricle is midline. The cerebellopontine angle i s unremarkable. EXTRACRANIAL: The visualized portion of the orbits is intact. SKULL: The calvaria is intact. No evidence of skull fracture. CONCLUSION: 1. No evidence of acute intracranial pathology. No masses are identified. Nestor Isabel MD on July 19, 2016 at 16:13 Board Certified Radiologist. This report was verified electronically.
--- NOTE | 2016-07-19 16:48 | RADRPT ---
EXAM DATE/TIME: 07/19/2016 16:00 [facility] COMPARISON: Prior study 06/15/2016 used for comparison. INDICATIONS : Abdominal pain, hypertension, fever. Non-Hodgkin's lymphoma. IV CONTRAST: 100 cc Omnipaque 350 (iohexol) IV ORAL CONTRAST: No oral contrast ingested. RADIATION DOSE: 9.96 CTDIvol (mGy) MEDICAL HISTORY : Diabetes mellitus type 2. Non-Hodgkin's lymphoma. SURGICAL HISTORY : Splenectomy. ENCOUNTER: Initial ACUITY: 1 day PAIN SCALE: 10/10 LOCATION: Bilateral abdomen TECHNIQUE: Volumetric scanning of the abdomen and pelvis was performed. Using automated exposure control and adjustment of the mA and/or kV according to patient size, radiation dose was kept as low as reasonably achievable to obtain optimal diagnostic quality images. FINDINGS: CT scan of the abdomen and pelvis was performed with IV and oral contrast. The liver a gain has a very nodular cirrhotic appearance. There are some areas of lower density on the right lob e of the liver with some pneumobilia similar to May. The portal vein is patent. The spleen is s urgically absent. There is hypertrophy of the left lobe of the liver. The kidneys and adrenal glands are unremarkable. There is a 5 mm stone lower pole left kidney. Bowel gas pattern is unremarkable. There is stool and air throughout the colon. Small bowel is not d ilated. The uterus is anteverted slightly to the left. Bladder is unremarkable. CONCLUSION: Continued cirrhotic appearance of the liver. Some areas of scarring or volume loss throughout the right lobe similar to the previous study. No definite solid mass is seen . Status post splenectomy. No significant retroperitoneal adenopathy. Fadi Deng MD on July 19, 2016 at 16:30 Board Certified Radiologist. This report was verified electronically.
--- NOTE | 2016-07-19 16:52 | MH ---
cc: MANISHA HERRERA M.D. DATE OF ADMISSION: 07/19/2016 DATE OF : 1970 HISTORY OF PRESENT ILLNESS The patient is 45 years old with a past medical history of non-Hodgkin's lymphoma status post chemotherapy in 2005, primary sclerosing cholangitis and strictures with multiple ERCPs in the past and diabetes mellitus. She presented to [facility] ED with abdominal pain generalized for several months associated with intractable nausea and vomiting. In addition, the patient had one episode of non-bloody diarrhea today. According to her friend, she was also febrile and had a temperature of 101.4 at home. On arrival to the ED, she was hypotensive with systolic blood pressure in the 70s and had a temperature of 100.7. In the ER, she was given 3 liters of crystalloids in addition to Vancomycin and Zosyn. The patient also received Dilaudid for pain, Vancomycin and Zosyn and started on Levophed drip which is currently at 4 mics. The patient also had a presyncopal episode prior to arrival and she is scheduled to undergo a CT scan of the brain without contrast and CT abdomen and pelvis. Her laboratory data is significant for leukocytosis with a WBC of 16 and lactic acidemia with lactic acid level of 3.1. Her last CT abdomen and pelvis performed in May which showed pneumobilia and cirrhotic liver with no evidence of any obstruction. The patient is awake, alert and she denies any chest pain or shortness of breath. In addition, she denies any cough or edema of the lower extremities. PAST MEDICAL HISTORY Significant for - 1. Sclerosing cholangitis and strictures. 2. Non-Hodgkin's lymphoma status post chemo back in 2005. 3. Diabetes mellitus. PAST SURGICAL HISTORY 1. Previous ERCPs in the past. 2. Previous splenectomy and biliary drain placement. ALLERGIES TORADOL, MORPHINE, GADOLINIUM DERIVATIVES. SOCIAL HISTORY Nonsmoker, nondrinker. FAMILY HISTORY Noncontributory. MEDICATIONS Insulin. REVIEW OF SYSTEMS As per HPI. The rest of the review of systems is unremarkable. PHYSICAL EXAMINATION GENERAL: A 45-year-old female, critically ill-appearing, lying in bed in no acute respiratory distress, on Levophed. VITAL SIGNS: Temperature 100.7, pulse 97, blood pressure 88/53, saturation of 94%, respiratory rate of 14. HEENT: Atraumatic, normocephalic. Pupils equal, round, reactive to light and accommodation. Extraocular muscles intact. Conjunctivae pink. Mild icteric sclerae. NECK: Supple. No JVD, adenopathy or thyromegaly. Trachea in the midline. CARDIOVASCULAR: Regular rate and rhythm. Normal S1, S2. No murmurs, rubs or gallops noted. PULMONARY: Bilateral equal air entry. No rales or wheezing. ABDOMEN: Soft, mild tenderness on palpation. Positive bowel sounds. No peritoneal signs. EXTREMITIES: No cyanosis, clubbing or edema. NEUROLOGIC: No focal sensory deficit. LABORATORY DATA WBC 16.4, hemoglobin 12.8, hematocrit 38, platelet count of 359. Sodium 134, potassium 4.7, chloride 97, CO2 21, BUN 20, creatinine 1.11, glucose 296, lactic acid 3.1, total bilirubin 4, AST 262, ALT 196, alk phos 1744. RADIOGRAPHIC STUDIES Chest x-ray on admission showed no acute cardiopulmonary disease. IMPRESSION 1. Septic shock. 2. Abdominal pain, rule out acute cholangitis. 3. Lactic acidemia. 4. Mild acute kidney injury. 5. Elevated liver enzymes with hyperbilirubinemia. 6. History of primary sclerosing cholangitis and strictures. 7. Leukocytosis. 8. Hyperglycemia with underlying history of diabetes mellitus. 9. History of non-Hodgkin's lymphoma status post chemo 10 years ago. 10. Chronic abdominal pain. RECOMMENDATIONS 1. Monitor neuro status closely and avoid any sedatives. The patient for a CT scan of the brain without contrast. 2. Continue with oxygen and maintain sats above 92%. 3. Bronchodilators in the form of Duo-Neb q.6 plus q.2 p.r.n. for shortness of breath. 4. Continue with Levophed. Monitor heart rate and blood pressure closely and maintain MAP greater than 65 mmHg. 5. Serial lactic acid monitoring. 6. She was given 3 liters of crystalloids in the ED. We will give an additional 1 liter bolus of normal saline followed by NS at 125 mL/hr. 7. Monitor renal function, Is and Os and electrolyte replacement per protocol. 8. IV hydration as stated above. 9. Keep n.p.o. for now. 10. Place on Protonix 40 mg IV daily for GI prophylaxis. We will consult GI service. Case discussed with Dr. Newberry, the patient might need ERCP. 11. Followup on CT scan of the abdomen and pelvis with IV contrast. 12. We will continue with broad-spectrum antibiotics in the form of Vancomycin and Zosyn and monitor for signs of infections which include fever and WBC. Followup on blood cultures. A chest x-ray in the ED negative for acute disease. In addition, she had a nasal washing done in the ER which was negative for influenza. 13. Monitor CBC and coags. 14. Place on medium sliding scale insulin with Accu-Cheks q.6 hours for glycemic control. 15. GI prophylaxis with Protonix 40 mg daily and DVT prophylaxis with SCDs. We will hold off on chemical anticoagulation prophylaxis for now for possible procedures. 16. Utilize peripheral IV. We will place a central line for CVP and hemodynamic monitoring. Critical care time 40 minutes excluding procedures. MD KIMMIE Bronson/SIA /3:50 PM /4:10 PM
--- NOTE | 2016-07-19 17:06 | PD.PROCEDR ---
Central Line Procedure REASON FOR PROCEDURE Central venous access PROCEDURE PERFORMED Central line placement: Right subclavian CVP CONSENT Informed consent for procedure was obtained . The risks and benefits of the procedure were discussed to include but limited to bleeding, clot formation, infection, and even . ANESTHESIA Local injection of 1% Lidocaine DESCRIPTION OF THE PROCEDURE The patient was placed in supine, mild Trendelenburg position. The area was exposed and cleansed with ChloraPrep, times two. Large sterile drape was used to cover the patient, with the site exposed, under sterile conditions including cap, face mask, sterile gown, and sterile gloves. On single attempt, the introducer needle was inserted with negative pressure in syringe and venous flash was obtained. The guide wire was then advanced without any restriction and the needle was removed. The dilator was used without any complications. Using Seldinger technique the catheter was advanced over the guide wire to a depth of 20 centimeters. The guide wire was removed. All ports were aspirated with dark venous blood return and flushed easily with sterile saline. All ports were capped. Antibiotic disc was placed around central line at puncture site. The central line was secured to the skin with two interrupted 2.0 silk sutures. The area was bandaged with sterile see-through central line bandage. RADIOLOGICAL DATA CXR ordered to verify line placement COMPLICATIONS: No apparent complications ESTIMATED BLOOD LOSS: Less than 1 cc. Michele Nickerson MD Jul 19, 2016 17:06
--- NOTE | 2016-07-19 17:29 | PD ---
HPI Chief Complaint: Syncope/Near-Syncope Time Seen by Provider: 11:33 Travel History International Travel<30 days: No Contact w/Intl Traveler<30days: No Traveled to known affect area: No History of Present Illness HPI This is a 45-year-old female who has a history of primary sclerosing cholangitis who has had episodes of cholecystitis in the past been thought to be too complex to do a cholecystectomy. She's been seen in consultation with Raisa in the past. She presents to the emergency department today with lightheadedness and fatigue that started this morning resulting in her passing out. She's had fevers and chills throughout the day and describes severe right upper quadrant and epigastric abdominal pain, constant, similar to pain she's had in the past. She feels nauseous and has had some dry heaves. Her took her blood pressure at home and it was in the 60s systolic prior to him calling the ambulance. 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) Cardiovascular Problems: No Chemotherapy: Yes (10/02) Chest Pain: Yes Diabetes: Yes Patient Takes Glucophage: No Diminished Hearing: No Endocrine: Yes Gastrointestinal Disorders: Yes Genitourinary: Yes Headaches: No Heparin Induced Thrombocytopen: No Implanted Vascular Access Dvce: Yes Kidney Stones: Yes Medical other: Yes (HX OF ENLARGED SPLEEN, SPLENECTOMY 2004) Musculoskeletal: Yes Psychiatric: Yes (SLIGHTLY CLAUSTROPHOBIC) Respiratory: No Immunizations Current: No Ulcer: Yes ?: Not Menopausal: Yes : 2 Para: 2 Miscarriage: 0 : 0 Past Surgical History Body Medical Devices: BILIARY DRAIN Neurologic Surgery: No Other Surgery: Yes (BILIARY DRAIN PLACED, LIVER BIOPSY) Social History Alcohol Use: No Tobacco Use: No Substance Use: No Allergies-Medications (Allergen,Severity, Reaction): Coded Allergies: Gadolinium Derivatives (Verified Allergy, Severe, BREATHING PROBLEMS, N/V, CHILLS, 07/19/16) MRI PRECAUTION (Verified Allergy, Severe, NAUSEA; PER PATIENT IT IS A GADOLINIUM ALLERGY KMD 11/25/12, 07/19/16) Morphine (Verified Allergy, Severe, BREATHING PROBLEMS, 07/19/16) Toradol (Verified Allergy, Severe, Shortness of Breath, 07/19/16) *MDRO Multi-Drug Resistant Organism (Verified Adverse Reaction, Unknown, ) MRSA (abdomen) - 03/2013, 04/2014 MRSA screen NEGATIVE - 04/15/16 & 04/17/16 Cleared per Infection Control Reported Meds & Prescriptions Reported Meds & Active Scripts Active Reported Humalog Inj (Insulin Human Lispro) 1,000 Unit/10 Ml Vial 3 Units SQ ACHS Max dose at bedtime:( )units; sugars< 70,(0)units; sugars 150-199,(1)unit; sugars 200-249,(3)units; sugars 250-299,(5)units; sugars 300-349,(7)units; sugars more than 349,(9)units. Lantus Inj (Insulin Glargine) 1,000 Unit/10 Ml Vial 15 Units SQ BIDAC Review of Systems Except as stated in HPI: all other systems reviewed are Neg Physical Exam Narrative GENERAL: Chronically ill-appearing SKIN: Warm and dry. HEAD: Atraumatic. Normocephalic. EYES: Pupils equal and round. No injection or drainage. ENT: Dry mucous membranes NECK: Trachea midline. CARDIOVASCULAR: Regular rate and rhythm. No murmur appreciated. RESPIRATORY: Clear to auscultation. Breath sounds equal bilaterally. GASTROINTESTINAL: Abdomen soft, tender to palpation in the right upper quadrant and epigastrium with guarding MUSCULOSKELETAL: No obvious deformities. NEUROLOGICAL: Awake and alert. No obvious cranial nerve deficits. Moving all extremities. PSYCHIATRIC: Appropriate mood and affect; insight and judgment normal. Data Data Last Documented VS Vital Signs Date Time Temp Pulse Resp B/P Pulse Ox O2 Delivery O2 Flow Rate FiO2 07/19/16 14:23 84 20 76/49 93 07/19/16 13:22 Room Air 07/19/16 11:19 100.7 Orders Complete Blood Count With Diff (07/19/16 11:41) Comprehensive Metabolic Panel (07/19/16 11:41) Lactic Acid Sepsis Protocol (07/19/16 11:41) Lipase (07/19/16 11:41) Urinalysis - C+S If Indicated (07/19/16 11:41) Influenzae A/B Antigen (07/19/16 11:41) Blood Culture (07/19/16 11:41) Chest, Single Ap (07/19/16 11:41) Blood Glucose (07/19/16 11:41) Ecg Monitoring (07/19/16 11:41) Iv Access Insert/Monitor (07/19/16 11:41) Oximetry (07/19/16 11:41) Oxygen Administration (07/19/16 11:41) Acetaminophen (Tylenol) (07/19/16 11:45) Sodium Chlor 0.9% 1000 Ml Inj (Ns 1000 M (07/19/16 11:41) Sodium Chlor 0.9% 1000 Ml Inj (Ns 1000 M (07/19/16 11:41) Hydromorphone Pf Inj (Dilaudid Pf Inj) (07/19/16 11:45) Ondansetron Inj (Zofran Inj) (07/19/16 11:45) Electrocardiogram (07/19/16 ) Ct Abd/Pel W Iv Contrast(Rout) (07/19/16 ) Norepinephrine-Dextrose Drip (Levophed-D (07/19/16 14:15) Terbutaline Inj (Brethine Inj) (07/19/16 14:15) Sodium Chlor 0.9% 1000 Ml Inj (Ns 1000 M (07/19/16 14:15) Piperacil-Tazo 3.375 Gm Premix (Zosyn 3. (07/19/16 14:15) Vancomycin Inj (Vancomycin Inj) (07/19/16 14:15) Norepinephrine Inj (Levophed Inj) (07/19/16 14:14) Prothrombin Time / Inr (Pt) (07/19/16 14:28) Act Partial Throm Time (Ptt) (07/19/16 14:28) Admit Order (Ed Use Only) (07/19/16 14:28) Labs Laboratory Tests Test 07/19/16 12:10 White Blood Count 16.4 TH/MM3 Red Blood Count 4.64 MIL/MM3 Hemoglobin 12.8 GM/DL Hematocrit 38.7 % Mean Corpuscular Volume 83.5 FL Mean Corpuscular Hemoglobin 27.7 PG Mean Corpuscular Hemoglobin 33.2 % Concent Red Cell Distribution Width 17.1 % Platelet Count 359 TH/MM3 Mean Platelet Volume 11.8 FL Neutrophils (%) (Auto) 91.5 % Lymphocytes (%) (Auto) 6.5 % Monocytes (%) (Auto) 1.8 % Eosinophils (%) (Auto) 0.0 % Basophils (%) (Auto) 0.2 % Neutrophils # (Auto) 15.0 TH/MM3 Lymphocytes # (Auto) 1.1 TH/MM3 Monocytes # (Auto) 0.3 TH/MM3 Eosinophils # (Auto) 0.0 TH/MM3 Basophils # (Auto) 0.0 TH/MM3 CBC Comment AUTO DIFF Differential Comment AUTO DIFF CONFIRMED Platelet Estimate HIGH Platelet Morphology Comment ENLARGED Target Cells 2+ [place] Bodies PRESENT Sodium Level 134 MEQ/L Potassium Level 4.7 MEQ/L Chloride Level 97 MEQ/L Carbon Dioxide Level 21.8 MEQ/L Anion Gap 15 MEQ/L Blood Urea Nitrogen 20 MG/DL Creatinine 1.11 MG/DL Estimat Glomerular Filtration 53 ML/MIN Rate Random Glucose 296 MG/DL Lactic Acid Level 3.1 mmol/L Calcium Level 8.8 MG/DL Total Bilirubin 4.0 MG/DL Aspartate Amino Transf 262 U/L (AST/SGOT) Alanine Aminotransferase 196 U/L (ALT/SGPT) Alkaline Phosphatase 1744 U/L Total Protein 6.8 GM/DL Albumin 2.3 GM/DL Lipase 77 U/L [facility] Medical Decision Making Medical Screen Exam Complete: Yes Emergency Medical Condition: Yes Interpretation(s) Fever, tachycardia, normotensive Leukocytosis 91% neutrophils Electrolytes are reassuring Lactic acid is 3.1 LFTs are chronically elevated but total bilirubin is higher than normal Differential Diagnosis Cholangitis, cholecystitis, sepsis, urinary tract infection, pyelonephritis Narrative Course This is a 45-year-old female who presents to the emergency department and septic shock. She is placed in a monitor and an IV was established. She was given 2 L of IV fluid and her blood pressure improved. She was given vancomycin and Zosyn. Labs demonstrate a leukocytosis. Her LFTs are chronically elevated. CT abdomen and pelvis was at baseline. Patient dropped her blood pressure despite IV hydration. She was started on levophed. I attempted to put in a right internal jugular central line but felt an obstruction about 8 cm down and was unable to pass it. Dr. Nickerson will try to obtain central access once the patient is transferred to the ICU. Critical Care Narrative Aggregate critical care time was 50 minutes. Time to perform other separately billable procedures was not included in the critical care time. My time did not include minutes spent treating any other patients simultaneously or on activities that did not directly contribute to the patient's treatment. The services I provided to this patient were to treat and/or prevent clinically significant deterioration that could result in: Disability, I provided critical care services requiring my management, as noted below: Chart data review, documentation time, medication orders and management, vital sign assessments/reviewing monitor data, ordering and reviewing lab tests, ordering and interpreting/reviewing x-rays and diagnostic studies, care of the patient and discussion of the patient with the admitting physicians. Procedures Procedure Narrative CENTRAL VENOUS LINE: The site was prepped with ChloraPrep and sterilely draped. It was infiltrated with 1% lidocaine plain. The deep vein was cannulated using normal Seldinger technique. I was unable to pass the wire along the right internal jugular. I advanced it about 8 cm and then felt an obstruction so discontinued the procedure. Diagnosis Primary Impression: Septic shock Admitting Information Admitting Physician Requests: Admit Vivian Fortune MD Jul 19, 2016 17:29
--- NOTE | 2016-07-19 17:44 | RADRPT ---
EXAM DATE/TIME: 07/19/2016 17:23 [place] COMPARISON: CHEST SINGLE AP, July 19, 2016, 12:25. INDICATIONS : PICC line placement. MEDICAL HISTORY : Ulcers. Diabetes mellitus type 2. Renal calculi. Cirrhosis; Non-hodgkin's SURGICAL HISTORY : Splenectomy. Liver biopsy. ENCOUNTER: Initial ACUITY: 1 day PAIN SCORE: 0/10 LOCATION: chest FINDINGS: A single view of the chest demonstrates the lungs to be symmetrically aerated without evidence of mas s, infiltrate or effusion. The cardiomediastinal contours are unremarkable. Osseous structures are intact. CONCLUSION: Normal examination. Right subclavian central line in excellent position. Fadi Deng MD on July 19, 2016 at 17:42 Board Certified Radiologist. This report was verified electronically.
[2016-07-19 18:19] LABS: BLOOD, URINE LARGE (NEG); CALCIUM OXALATE CRYSTALS,URINE FEW /hpf; COMMENT (UR) CULT NOT INDICATED; CULTURE IF INDICATED CULT NOT INDICATED; GLUCOSE,URINE 1000 mg/dL (NEG); HYALINE CAST, URINE 1 /lpf (RARE); KETONE, URINE NEG (NEG); MUCUS URINE FEW /lpf (OCC); NITRITE,URINE NEG (NEG); SQUAMOUS EPITHELIAL CELL URINE <1 /hpf (0-5); URINE COLOR DARK-YELLOW (YELLW/STRAW)
[2016-07-19 19:19] LABS: APTT (PATIENT) 38.5 SEC (24.3-30.1); INTERNATIONAL NORMALIZED RATIO 3.4 RATIO; PROTHROMBIN TIME - PATIENT 40.1 SEC (9.8-11.6)
[2016-07-19] MEDS: SODIUM CHLOR 0.9% 1000 ML INJ 1,000 ML IV SCH (20:58)
[2016-07-19] MEDS: INSULIN NovoLIN REGULAR SUPPLEMENTAL SCALE SQ SCH ×2 (20:59→21:15)
[2016-07-19] MEDS: PIPERACIL-TAZO 4.5 GM PREMIX 100 ML IV SCH (20:59)
[2016-07-19] MEDS: HYDROmorphone HCL PF 1 MG/ML VIAL IV PRN (22:02)
[2016-07-19] MEDS: NOREPINEPHRINE-DEXTROSE DRIP 250 ML IV SCH (22:57)
[2016-07-20] VITALS (12 sets, daily range): BP systolic 87–124; BP diastolic 57–79; PULSE 77–129; RESP 13–23; TEMP 97.8–103.2; O2SAT 96–98
[2016-07-20] MEDS: PIPERACIL-TAZO 4.5 GM PREMIX 100 ML IV SCH ×4 (01:00→20:25)
[2016-07-20] MEDS: ACETAMINOPHEN 650 MG/20.3 ML UDC PO PRN (01:00)
[2016-07-20 01:58] LABS: BACTERIA, URINE RARE /hpf; BLOOD, URINE SMALL (NEG); COMMENT (UR) CATH-CULTURE IND; CULTURE IF INDICATED CATH CULTURE IND; GLUCOSE,URINE NEG (NEG); KETONE, URINE NEG (NEG); MUCUS URINE FEW /lpf (OCC); NITRITE,URINE NEG (NEG); PH, URINE 5.5 (5.0-8.5); RENAL EPITHELIAL CELLS <1 /hpf; SQUAMOUS EPITHELIAL CELL URINE <1 /hpf (0-5); URINE COLOR YELLOW (YELLW/STRAW)
[2016-07-20] MEDS: HYDROmorphone HCL PF 1 MG/ML VIAL IV PRN ×6 (02:48→22:39)
[2016-07-20] MEDS: INSULIN NovoLIN REGULAR SUPPLEMENTAL SCALE SQ SCH ×4 (02:54→20:32)
[2016-07-20] MEDS: RESP: ALBUTEROL 2.5 MG/IPRATROPIUM 0.5 MG NEB (SCH) INH ×4 (03:03→22:00)
[2016-07-20 03:38] LABS: HEMATOCRIT 33.6 % (35.0-46.0); MEAN CELL VOLUME 83.5 FL (80.0-100.0); MEAN CORPUSCULAR HEMOGLOBIN 27.6 PG (27.0-34.0); MEAN CORPUSCULAR HGB CONC 33.1 % (32.0-36.0); PLATELET COUNT 213 TH/MM3 (150-450); RED BLOOD COUNT 4.03 MIL/MM3 (4.00-5.30); RED CELL DISTRIBUTION WIDTH 16.7 % (11.6-17.2); WHITE BLOOD COUNT 22.1 TH/MM3 (4.0-11.0)
[2016-07-20 03:40] LABS: HEMO FLAGS AUTO DIFF
[2016-07-20 03:52] LABS: ALKALINE PHOSPHATASE 1086 U/L (45-117); ALT (GPT) 136 U/L (10-53); ANION GAP 11 MEQ/L (5-15); AST (GOT) 151 U/L (15-37); BICARBONATE 21.4 MEQ/L (21.0-32.0); BLOOD UREA NITROGEN 13 MG/DL (7-18); CHLORIDE 109 MEQ/L (98-107); GLOMERULAR FILTRATION RATE 102 ML/MIN (>89); MAGNESIUM 1.3 MG/DL (1.5-2.5); SODIUM (NA) 141 MEQ/L (136-145)
[2016-07-20 03:54] LABS: TOTAL BILIRUBIN ADULT 3.2 MG/DL (0.2-1.0)
[2016-07-20 03:59] LABS: POTASSIUM 2.7 MEQ/L (3.5-5.1)
[2016-07-20] MEDS: CHLORHEXIDINE GLUCONATE 2 % 1 PACK (2 CLOTHS) TOP SCH (04:00)
[2016-07-20] MEDS ORDERED: MAGNESIUM SULFATE INJ 4 GM in SODIUM CHLORIDE 0.9% INJ 92 ML IV PRN (04:45)
[2016-07-20] MEDS ORDERED: POTASSIUM CL 40 MEQ/30 ML LIQ UDC PO/TUBE PRN ×2 (04:45)
[2016-07-20] MEDS ORDERED: MAGNESIUM OXIDE 400 MG TAB PO PRN (04:45)
[2016-07-20] MEDS ORDERED: POTASSIUM CHLOR 40 MEQ PREMIX 100 ML IV PRN (04:45)
[2016-07-20] MEDS ORDERED: POTASSIUM PHOSPHATE MONOBASIC 500 MG TAB PO/TUBE PRN (04:45)
[2016-07-20] MEDS ORDERED: POTASSIUM CHLOR 20 MEQ PREMIX 100 ML IV PRN ×2 (04:45)
[2016-07-20] MEDS: POTASSIUM CHLOR 40 MEQ PREMIX 100 ML IV PRN ×2 (05:21→08:35)
[2016-07-20 05:55] LABS: BANDS 41 % (0-6); DOHLE BODIES PRESENT (NONE SEEN); HOWELL-JOLLY BODIES PRESENT (NONE SEEN); METAMYELOCYTES 2 % (0-1); NEUTROPHIL # MANUAL DIFF 21.4 TH/MM3 (1.8-7.7); PLATELET ESTIMATE SMEAR NORMAL (NORMAL); PLATELET MORPHOLOGY ENLARGED (NORMAL); POLYS (SEG NEUTROPHILS) 54 % (16-70); SCAN/DIFF FINAL DIFF MANUAL; TOXIC GRANULATION 1+ (NORMAL); TOXIC VACUOLATION PRESENT (NONE SEEN); WBC DIFF SAMPLE 100
[2016-07-20 05:59] LABS: SPHEROCYTES OCC (NORMAL); TARGET CELLS 2+ (NORMAL)
[2016-07-20] MEDS: NOREPINEPHRINE-DEXTROSE DRIP 250 ML IV SCH (06:38)
[2016-07-20] MEDS ORDERED: SODIUM CHLOR 0.9% 1000 ML INJ 1,000 ML IV ONE (08:00)
--- NOTE | 2016-07-20 08:03 | HHI.CCPN ---
Subjective Remarks/Hospital Course The patient is 45 years old with a past medical history of non-Hodgkin's lymphoma status post chemotherapy in 2005, primary sclerosing cholangitis and strictures with multiple ERCPs in the past and diabetes mellitus. She presented to [facility] ED with abdominal pain generalized for several months associated with intractable nausea and vomiting. In addition, the patient had one episode of non-bloody diarrhea today. According to her friend, she was also febrile and had a temperature of 101.4 at home. On arrival to the ED, she was hypotensive with systolic blood pressure in the 70s and had a temperature of 100.7. In the ER, she was given 3 liters of crystalloids in addition to Vancomycin and Zosyn. The patient also received Dilaudid for pain, Vancomycin and Zosyn and started on Levophed drip which is currently at 4 mics. The patient also had a presyncopal episode prior to arrival and she is scheduled to undergo a CT scan of the brain without contrast and CT abdomen and pelvis. Her laboratory data is significant for leukocytosis with a WBC of 16 and lactic acidemia with lactic acid level of 3.1. Her last CT abdomen and pelvis performed in May which showed pneumobilia and cirrhotic liver with no evidence of any obstruction. The patient is awake, alert and she denies any chest pain or shortness of breath. In addition, she denies any cough or edema of the lower extremities. 07/20 Patient remains on Levophed 9 mics, CVP 5. WBC increased 22 with 41 bands. T 103.2 Objective Vital Signs Date Time Temp Pulse Resp B/P Pulse Ox O2 Delivery O2 Flow Rate FiO2 07/20/16 07:10 9 07/20/16 04:00 98.3 93 91/58 96 07/19/16 13:22 Room Air Intake and Output 07/19/16 07/19/16 07/20/16 08:00 16:00 00:00 Intake Total 1259 ml Output Total 1265 ml Balance -6 ml Result Diagram: 07/20/16 0300 07/20/16 0300 Other Results Laboratory Tests Test 07/19/16 07/19/16 07/19/16 07/19/16 12:10 16:40 17:15 18:46 White Blood Count 16.4 TH/MM3 Red Blood Count 4.64 MIL/MM3 Hemoglobin 12.8 GM/DL Hematocrit 38.7 % Mean Corpuscular Volume 83.5 FL Mean Corpuscular Hemoglobin 27.7 PG Mean Corpuscular Hemoglobin 33.2 % Concent Red Cell Distribution Width 17.1 % Platelet Count 359 TH/MM3 Mean Platelet Volume 11.8 FL Neutrophils (%) (Auto) 91.5 % Lymphocytes (%) (Auto) 6.5 % Monocytes (%) (Auto) 1.8 % Eosinophils (%) (Auto) 0.0 % Basophils (%) (Auto) 0.2 % Neutrophils # (Auto) 15.0 TH/MM3 Lymphocytes # (Auto) 1.1 TH/MM3 Monocytes # (Auto) 0.3 TH/MM3 Eosinophils # (Auto) 0.0 TH/MM3 Basophils # (Auto) 0.0 TH/MM3 CBC Comment AUTO DIFF Differential Comment AUTO DIFF CONFIRMED Platelet Estimate HIGH Platelet Morphology Comment ENLARGED Target Cells 2+ Kelly-Moffett Bodies PRESENT Sodium Level 134 MEQ/L Potassium Level 4.7 MEQ/L Chloride Level 97 MEQ/L Carbon Dioxide Level 21.8 MEQ/L Anion Gap 15 MEQ/L Blood Urea Nitrogen 20 MG/DL Creatinine 1.11 MG/DL Estimat Glomerular Filtration 53 ML/MIN Rate Random Glucose 296 MG/DL Lactic Acid Level 3.1 mmol/L 1.0 mmol/L Calcium Level 8.8 MG/DL Total Bilirubin 4.0 MG/DL Aspartate Amino Transf 262 U/L (AST/SGOT) Alanine Aminotransferase 196 U/L (ALT/SGPT) Alkaline Phosphatase 1744 U/L Total Protein 6.8 GM/DL Albumin 2.3 GM/DL Lipase 77 U/L Nasal Screen MRSA (PCR) POSITIVE Urine Color DARK-YELLOW Urine Turbidity HAZY Urine pH 6.0 Urine Specific Harmon 1.024 Urine Protein 100 mg/dL Urine Glucose (UA) 1000 mg/dL Urine Ketones NEG mg/dL Urine Occult Blood LARGE Urine Nitrite NEG Urine Bilirubin MOD Urine Urobilinogen LESS THAN 2.0 MG/DL Urine Leukocyte Esterase NEG Urine RBC 76 /hpf Urine WBC 3 /hpf Urine Squamous Epithelial <1 /hpf Cells Urine Calcium Oxalate Crystals FEW /hpf Urine Amorphous Sediment FEW Urine Hyaline Casts 1 /lpf Urine Mucus FEW /lpf Microscopic Urinalysis Comment CULT NOT INDICATED Prothrombin Time 40.1 SEC Prothromb Time International 3.4 RATIO Ratio Activated Partial 38.5 SEC Thromboplast Time Test 07/20/16 07/20/16 01:00 03:00 Urine Color YELLOW Urine Turbidity CLEAR Urine pH 5.5 Urine Specific Harmon 1.017 Urine Protein 30 mg/dL Urine Glucose (UA) NEG mg/dL Urine Ketones NEG mg/dL Urine Occult Blood SMALL Urine Nitrite NEG Urine Bilirubin SMALL Urine Urobilinogen LESS THAN 2.0 MG/DL Urine Leukocyte Esterase TRACE Urine RBC 4 /hpf Urine WBC 14 /hpf Urine Squamous Epithelial <1 /hpf Cells Urine Renal Epithelial Cells <1 /hpf Urine Bacteria RARE /hpf Urine Mucus FEW /lpf Urine Yeast (Budding) RARE Microscopic Urinalysis Comment CATH-CULTURE IND White Blood Count 22.1 TH/MM3 Red Blood Count 4.03 MIL/MM3 Hemoglobin 11.1 GM/DL Hematocrit 33.6 % Mean Corpuscular Volume 83.5 FL Mean Corpuscular Hemoglobin 27.6 PG Mean Corpuscular Hemoglobin 33.1 % Concent Red Cell Distribution Width 16.7 % Platelet Count 213 TH/MM3 Mean Platelet Volume 11.7 FL Neutrophils (%) (Auto) % Lymphocytes (%) (Auto) % Monocytes (%) (Auto) % Eosinophils (%) (Auto) % Basophils (%) (Auto) % Neutrophils # (Auto) TH/MM3 Lymphocytes # (Auto) TH/MM3 Monocytes # (Auto) TH/MM3 Eosinophils # (Auto) TH/MM3 Basophils # (Auto) TH/MM3 CBC Comment AUTO DIFF Differential Total Cells 100 Counted Neutrophils % (Manual) 54 % Band Neutrophils % 41 % Lymphocytes % 2 % Monocytes % 1 % Neutrophils # (Manual) 21.4 TH/MM3 Metamyelocytes 2 % Differential Comment FINAL DIFF MANUAL Toxic Granulation 1+ Toxic Vacuolation PRESENT Dohle Bodies PRESENT Platelet Estimate NORMAL Platelet Morphology Comment ENLARGED Spherocytes OCC Target Cells 2+ Kelly-Moffett Bodies PRESENT Sodium Level 141 MEQ/L Potassium Level 2.7 MEQ/L Chloride Level 109 MEQ/L Carbon Dioxide Level 21.4 MEQ/L Anion Gap 11 MEQ/L Blood Urea Nitrogen 13 MG/DL Creatinine 0.63 MG/DL Estimat Glomerular Filtration 102 ML/MIN Rate Random Glucose 219 MG/DL Calcium Level 7.6 MG/DL Phosphorus Level 2.0 MG/DL Magnesium Level 1.3 MG/DL Total Bilirubin 3.2 MG/DL Aspartate Amino Transf 151 U/L (AST/SGOT) Alanine Aminotransferase 136 U/L (ALT/SGPT) Alkaline Phosphatase 1086 U/L Total Protein 5.4 GM/DL Albumin 1.7 GM/DL Imaging Last Impressions Chest X-Ray 07/19/16 1141 Signed Impressions: Service Date/Time: July 12:25 - CONCLUSION: 1. No acute cardiopulmonary findings. Farzad Morales MD Head CT 07/19/16 0000 Signed Impressions: Service Date/Time: July 16:01 - CONCLUSION: 1. No evidence of acute intracranial pathology. No masses are identified. Nestor Isabel MD Abdomen/Pelvis CT 07/19/16 0000 Signed Impressions: Service Date/Time: July 16:00 - CONCLUSION: Continued cirrhotic appearance of the liver. Some areas of scarring or volume loss throughout the right lobe similar to the previous study. No definite solid mass is seen. Status post splenectomy. No significant retroperitoneal adenopathy. Fadi Deng MD Objective Remarks GENERAL: Patient is 46 yo ill appearing remains on Levophed 9 mics. SKIN: Warm and dry. HEAD: Normocephalic. EYES: No scleral icterus. No injection or drainage. NECK: Supple, trachea midline. No JVD or lymphadenopathy. CARDIOVASCULAR: Regular rate and rhythm without murmurs, gallops, or rubs. RESPIRATORY: Breath sounds equal bilaterally. No accessory muscle use. GASTROINTESTINAL: Abdomen soft, nondistended. Mild tenderness on palpation. MUSCULOSKELETAL: No cyanosis, or edema. Neuro: Awake and alert A/P Assessment and Plan 1. Septic shock. -Gram negative bacteremia 2. Abdominal pain, rule out acute cholangitis. 3. Lactic acidemia..resolved 4. Mild acute kidney injury. 5. Elevated liver enzymes with hyperbilirubinemia. 6. History of primary sclerosing cholangitis and strictures. 7. Leukocytosis with bandemia. 8. Hyperglycemia with underlying history of diabetes mellitus. 9. History of non-Hodgkin's lymphoma status post chemo 10 years ago. 10. Chronic abdominal pain. 11 Coagulopathy likely 2md liver disease Plan: Neuro: Monitor neuro status closely and avoid any sedatives. CT brain: No acute process Pulm: Continue with oxygen and maintain sats above 92%. Bronchodilators CV: Wean off Levophed monitor HR and BP maintain MAP >65 mmHg. Lactic acid resolved. CVP monitoring. Continue with IVF. Give additional 1L bolus NS. Given total 4L crystalloids since arrival. : Monitor renal function, Is and Os and electrolyte replacement per protocol. On NS@125ml/hr, will need K, Mg, Phos replacement today GI: Keep n.p.o. for now. on Protonix 40 mg IV daily for GI prophylaxis. GI is following might need ERCP CT abdomen/pelvis: No masses, cirrhotic appearance of liver ID: Continue with abx( Vancomycin, Zosyn add Flagyl) monitor for signs of infections(fever and WBC). CXR in the ED negative for acute disease. Nasal washing negative for influenza. Follow up on BC, ID consulted Heme: Monitor CBC and coags. Endo: On medium SSI with Accu-Cheks q.6 hours for glycemic control. GI prophylaxis with Protonix 40 mg daily and DVT prophylaxis with SCDs. INR: 3.4 on 3.2. No need for further AC. Lines: Right subclavian CVP placed 3/2 CCT 30 mins Michele Nickerson MD Jul 20, 2016 08:03
[2016-07-20] MEDS: MAGNESIUM SULFATE INJ 2 GM in SODIUM CHLORIDE 0.9% INJ 96 ML IV PRN (08:35)
[2016-07-20] MEDS: POTASSIUM PHOSPHATE MONOBASIC 500 MG TAB PO PRN (08:36)
[2016-07-20] MEDS: SODIUM CHLOR 0.9% 1000 ML INJ 1,000 ML IV SCH ×3 (08:37→20:29)
[2016-07-20] MEDS: metroNIDAZOLE 500 MG INJ 100 ML IV SCH ×2 (08:37→15:51)
[2016-07-20] MEDS: PANTOPRAZOLE SODIUM 40 MG VIAL IV SCH (08:38)
[2016-07-20] MEDS ORDERED: VANCOMYCIN INJ 1,000 MG in SODIUM CHLOR 0.9% 250 ML INJ 250 ML IV SCH (09:00)
[2016-07-20] MEDS: SODIUM PHOSPHATE INJ 30 MMOL in SODIUM CHLOR 0.9% 250 ML INJ 240 ML IV PRN (10:35)
--- NOTE | 2016-07-20 12:01 | PD.CONS ---
HPI History of Present Illness This is a 46 year old female with history of non-Hodgkin's lymphoma and completed chemotherapy in 2005, but has had an ongoing problem with biliary strictures and sclerosing cholangitis. who presents to the ER at [facility] for worsening symptoms of abdomen pain, fever, fainting, nausea and intermittent vomiting. She has chronic issues that never go away but they get worse at times. Patient had a recent admission in April of last year and was recommended to f/u with tertiary center. She did f/u with [facility] beginning of June and work up in processes. Patient had extensive work up in the past and was requiring frequent ERCP with stent exchanges in the past. For several years, they were unable to place an internal stent and therefore she required biliary drains with periodic exchanges. In November 2012, IR/ERCP attempted a rendezvous procedure and noted her stricture in the common bile duct and left internal hepatic duct, right internal hepatic duct system not opacified. Because of her severe intrahepatic disease of the left and right IHD, an external drain was placed by IR. She was also evaluated by Dr. Aguillon for possible bypass procedure versus liver transplant during an December 2013 hospitalization. She underwent a liver biopsy pn 01/19/14 of both her normal liver parenchyma and her liver mass. The normal liver parenchyma revealed chronic hepatitis with bridging fibrosis and cirrhosis grade 2/4, stage 3-4/4 exhibiting bile duct tubular damage and ductopenia. The liver mass suggested chronic hepatitis with bridging fibrosis 2 /4, stage III/4. The patient reports that Dr. Aguillon suggested that she be evaluated it at a tertiary center for further evaluation and treatment. She had ERCP was in May of 2015 at [facility] but hasn't been following up with them for a while . Last ERCP (04/27/16)---> primary sclerosing cholangitis, dominant stricture right intrahepatic duct, periampullary diverticulum. IR consulted for possible PTHC- do not feel that this can be done and therefore this was cancelled. Abnormal imaging of the gallbladder. HIDA (04/27/16)----> Nonvisualization of the gallbladder. ADDENDUM : Delayed imaging of the abdomen documents an ovoid area of activity in the right upper quadrant in the expected location of the gallbladder based on prior cross-sectional imaging studies. Delayed visualization the gallbladder should exclude complete cystic duct obstruction. However, based on prior imaging studies, the gallbladder demonstrated severe diffuse wall edema. S/P GS evaluation, does not plan to perform cholecystectomy at this time, recommends tx to tertiary. Pt presented to the ER at [facility] with complaints of worsening abdominal pain, nausea, intermittent vomiting, fevers and fainting. The RUQ pain radiates to her back, which she describes as a sharp and constant. She also has associated nausea but no vomiting. She reported intermittent fevers at home with Tmax 103 Pt has been started on (Vancomycin, Zosyn add Flagyl) She has alternating constipation and diarrhea. She denies seeing blood in her stool. Total Bili 4.0, AST 262, [id number], AlkPhos 1744 on arrival. Repeat labs today with noted Tbili 3.2, AST 151, ALT 136, AlkPhos 1086, (T. Bilirubin, usually runs 1.5-2.5. ) CT abdomen/pelvis (07/19/16): No masses, cirrhotic appearance of liver. she has leukocytosis, lactic acid normalized (Rita Burgos) PFSH Past Medical History Biliary obstruction secondary to strictures Sclerosing cholangitis Non-Hodgkin's lymphoma Diabetes Ureterolithiasis MRSA and wound Liver Mass. Past Surgical History Multiple ERCP with stent placement Splenectomy Biliary drain Liver biopsy Shockwave lithotripsy (Rita Burgos) Coded Allergies: Gadolinium Derivatives (Verified Allergy, Severe, BREATHING PROBLEMS, N/V, CHILLS, 07/19/16) MRI PRECAUTION (Verified Allergy, Severe, NAUSEA; PER PATIENT IT IS A GADOLINIUM ALLERGY KMD 11/25/12, 07/19/16) Morphine (Verified Allergy, Severe, BREATHING PROBLEMS, 07/19/16) Toradol (Verified Allergy, Severe, Shortness of Breath, 07/19/16) *MDRO Multi-Drug Resistant Organism (Verified Adverse Reaction, Unknown, MRSA, 07/20/16) MRSA (abdomen) - 03/2013, 04/2014 MRSA PCR (nares) POSITIVE - 07/19/16 Medications Current Medications Medications (Trade) Dose Ordered Sig/Celso Route Start Time Stop Time Status Last Admin (Levophed-Dextrose Drip) 250 ml @ 0 mls/hr TITRATE IV 07/19/16 14:15 07/20/16 06:38 (Brethine Inj) 1 mg UNSCH PRN SQ 07/19/16 14:15 (Protonix Inj) 40 mg DAILY IV 07/19/16 15:15 07/20/16 08:38 Miscellaneous Information 1 [id number] XX 07/19/16 15:15 (Chlorhexidine 2% Cloth) 3 pack Taper DAILY@04 TOP 07/20/16 04:00 07/16/17 03:59 Chlorhexidine Gluconate 3 pack 3 pack UNSCH PRN TOP 07/19/16 15:15 (NS 1000 ml Inj) 1,000 ml @ 125 mls/hr Q8H IV 07/19/16 15:15 07/20/16 08:37 (D50w (Vial) Inj) 25 ml UNSCH PRN IV PUSH 07/19/16 15:15 (Glucagon Inj) 1 mg UNSCH PRN OTHER 07/19/16 15:15 Insulin Human Regular 1 1 Q6H SQ 07/19/16 15:15 07/20/16 09:13 Vancomycin HCl 1000 mg/Sodium Chloride 250 ml @ 250 mls/hr Q12H IV 07/20/16 09:00 07/20/16 08:57 Piperacillin Sod/ Tazobactam Sod 100 ml @ 200 mls/hr Q6H IV 07/19/16 20:00 07/20/16 08:36 (Vancomycin Consult Pharmacy) ml @ 0 mls/hr UNSCH XX 07/19/16 16:15 Miscellaneous Information SPECIFIC LAB TO BE OTIS... ONCE ONCE XX 07/21/16 20:45 07/21/16 20:46 (Dilaudid Pf Inj) 0.5 mg Q4H PRN IV 07/19/16 21:45 07/20/16 10:34 Acetaminophen 650 mg 650 mg Q6H PRN PO 07/20/16 00:30 07/20/16 01:00 Potassium Chloride 100 ml @ 50 mls/hr Q2H PRN IV 07/20/16 04:45 07/20/16 08:35 (KCl 20 Meq Premix Inj) 100 ml @ 50 mls/hr Q2H PRN IV 07/20/16 04:45 Potassium Chloride 40 meq 40 meq UNSCH PRN PO/TUBE 07/20/16 04:45 Potassium Chloride 100 ml @ 25 mls/hr UNSCH PRN IV 07/20/16 04:45 Potassium Chloride 100 ml @ 50 mls/hr Q2H PRN IV 07/20/16 04:45 (Magnesium Sulfate Inj/NS Inj) 100 ml @ 50 mls/hr UNSCH PRN IV 07/20/16 04:45 Magnesium Oxide 800 mg 800 mg UNSCH PRN PO 07/20/16 04:45 (Magnesium Sulfate Inj/NS Inj) 100 ml @ 50 mls/hr UNSCH PRN IV 07/20/16 04:45 07/20/16 08:35 Potassium Phosphate 2000 mg 2,000 mg Q4H PRN PO 07/20/16 04:45 07/20/16 08:36 (Sodium Phosphate Inj/NS 250 ml Inj) 250 ml @ 42 mls/hr UNSCH PRN IV 07/20/16 04:45 07/20/16 10:35 (KCl 40 Meq/30 ml Liq) 40 meq UNSCH PRN PO/TUBE 07/20/16 04:45 Potassium Phosphate 2000 mg 2,000 mg UNSCH PRN PO/TUBE 07/20/16 04:45 Potassium Phosphate 30 mmol/ Sodium Chloride 260 ml @ 42 mls/hr UNSCH PRN IV 07/20/16 04:45 (Flagyl 500 Mg Inj) 100 ml @ 100 mls/hr Q8H IV 07/20/16 09:00 07/20/16 08:37 Family History No significant family history Social History Denies tobacco use. Denies alcohol use. Denies illicit drug use. (Rita Burgos) Review of Systems Constitutional: COMPLAINS OF: Fatigue, Fever, Chills Endocrine: DENIES: Polyuria Eyes: DENIES: Double Vision Ears, nose, mouth, throat: DENIES: Hoarseness Respiratory: DENIES: Shortness of breath Cardiovascular: DENIES: Lower Extremity Edema Gastrointestinal: COMPLAINS OF: Abdominal pain, Diarrhea, Nausea, Anorexia, DENIES: Black stools, Bloody stools, Constipation, Vomiting, Difficulty Swallowing, Odynophagia, Swelling of Abdomen, Heartburn, Hematemesis Genitourinary: DENIES: Hematuria Musculoskeletal: COMPLAINS OF: Back pain, DENIES: Neck pain Hematologic/lymphatic: DENIES: Bruising Immunologic/allergic: DENIES: Eczema Neurologic: DENIES: Abnormal gait Psychiatric: DENIES: Anxiety (Rita Burgos) GI Exam Vitals I&O Vital Signs Date Time Temp Pulse Resp B/P Pulse Ox O2 Delivery O2 Flow Rate FiO2 07/20/16 07:10 9 07/20/16 04:00 98.3 93 15 91/58 96 07/20/16 02:23 16 07/20/16 00:00 129 07/20/16 00:00 103.2 129 23 124/79 96 07/19/16 22:00 127 07/19/16 20:00 98.8 106 15 114/70 99 07/19/16 20:00 108 07/19/16 18:00 97 07/19/16 17:00 98.3 89 26 100/62 90 07/19/16 15:38 94 14 101/60 94 07/19/16 15:30 99 26 75/51 96 07/19/16 15:16 103 20 71/47 94 07/19/16 14:33 69 26 110/59 97 07/19/16 14:23 84 20 76/49 93 07/19/16 13:22 98 07/19/16 13:22 98 Room Air 07/19/16 11:19 100.7 130 28 116/57 95 Room Air I/O 07/19/16 07/19/16 07/19/16 07/20/16 07/20/16 07/20/16 07:00 15:00 23:00 07:00 15:00 23:00 Intake Total 1259 ml 1205 ml Output Total 1265 ml 575 ml Balance -6 ml 630 ml Intake Oral 240 ml 240 ml IV Total 1019 ml 965 ml Output Urine Total 1265 ml 575 ml Imaging Last Impressions Chest X-Ray 07/19/16 1141 Signed Impressions: Service Date/Time: July 12:25 - CONCLUSION: 1. No acute cardiopulmonary findings. Farzad Morales MD Head CT 07/19/16 0000 Signed Impressions: Service Date/Time: July 16:01 - CONCLUSION: 1. No evidence of acute intracranial pathology. No masses are identified. Nestor Isabel MD Abdomen/Pelvis CT 07/19/16 0000 Signed Impressions: Service Date/Time: July 16:00 - CONCLUSION: Continued cirrhotic appearance of the liver. Some areas of scarring or volume loss throughout the right lobe similar to the previous study. No definite solid mass is seen. Status post splenectomy. No significant retroperitoneal adenopathy. Fadi Deng MD Laboratory Test 07/19/16 07/19/16 07/19/16 07/19/16 12:10 16:40 17:15 18:46 White Blood Count 16.4 TH/MM3 Red Blood Count 4.64 MIL/MM3 Hemoglobin 12.8 GM/DL Hematocrit 38.7 % Mean Corpuscular Volume 83.5 FL Mean Corpuscular Hemoglobin 27.7 PG Mean Corpuscular Hemoglobin 33.2 % Concent Red Cell Distribution Width 17.1 % Platelet Count 359 TH/MM3 Mean Platelet Volume 11.8 FL Neutrophils (%) (Auto) 91.5 % Lymphocytes (%) (Auto) 6.5 % Monocytes (%) (Auto) 1.8 % Eosinophils (%) (Auto) 0.0 % Basophils (%) (Auto) 0.2 % Neutrophils # (Auto) 15.0 TH/MM3 Lymphocytes # (Auto) 1.1 TH/MM3 Monocytes # (Auto) 0.3 TH/MM3 Eosinophils # (Auto) 0.0 TH/MM3 Basophils # (Auto) 0.0 TH/MM3 CBC Comment AUTO DIFF Differential Comment AUTO DIFF CONFIRMED Platelet Estimate HIGH Platelet Morphology Comment ENLARGED Target Cells 2+ Kelly-Brandermill Bodies PRESENT Sodium Level 134 MEQ/L Potassium Level 4.7 MEQ/L Chloride Level 97 MEQ/L Carbon Dioxide Level 21.8 MEQ/L Anion Gap 15 MEQ/L Blood Urea Nitrogen 20 MG/DL Creatinine 1.11 MG/DL Estimat Glomerular Filtration 53 ML/MIN Rate Random Glucose 296 MG/DL Lactic Acid Level 3.1 mmol/L 1.0 mmol/L Calcium Level 8.8 MG/DL Total Bilirubin 4.0 MG/DL Aspartate Amino Transf 262 U/L (AST/SGOT) Alanine Aminotransferase 196 U/L (ALT/SGPT) Alkaline Phosphatase 1744 U/L Total Protein 6.8 GM/DL Albumin 2.3 GM/DL Lipase 77 U/L Nasal Screen MRSA (PCR) POSITIVE Urine Color DARK-YELLOW Urine Turbidity HAZY Urine pH 6.0 Urine Specific [place] 1.024 Urine Protein 100 mg/dL Urine Glucose (UA) 1000 mg/dL Urine Ketones NEG mg/dL Urine Occult Blood LARGE Urine Nitrite NEG Urine Bilirubin MOD Urine Urobilinogen LESS THAN 2.0 MG/DL Urine Leukocyte Esterase NEG Urine RBC 76 /hpf Urine WBC 3 /hpf Urine Squamous Epithelial <1 /hpf Cells Urine Calcium Oxalate Crystals FEW /hpf Urine Amorphous Sediment FEW Urine Hyaline Casts 1 /lpf Urine Mucus FEW /lpf Microscopic Urinalysis Comment CULT NOT INDICATED Prothrombin Time 40.1 SEC Prothromb Time International 3.4 RATIO Ratio Activated Partial 38.5 SEC Thromboplast Time Test 07/20/16 07/20/16 01:00 03:00 Urine Color YELLOW Urine Turbidity CLEAR Urine pH 5.5 Urine Specific [place] 1.017 Urine Protein 30 mg/dL Urine Glucose (UA) NEG mg/dL Urine Ketones NEG mg/dL Urine Occult Blood SMALL Urine Nitrite NEG Urine Bilirubin SMALL Urine Urobilinogen LESS THAN 2.0 MG/DL Urine Leukocyte Esterase TRACE Urine RBC 4 /hpf Urine WBC 14 /hpf Urine Squamous Epithelial <1 /hpf Cells Urine Renal Epithelial Cells <1 /hpf Urine Bacteria RARE /hpf Urine Mucus FEW /lpf Urine Yeast (Budding) RARE Microscopic Urinalysis Comment CATH-CULTURE IND White Blood Count 22.1 TH/MM3 Red Blood Count 4.03 MIL/MM3 Hemoglobin 11.1 GM/DL Hematocrit 33.6 % Mean Corpuscular Volume 83.5 FL Mean Corpuscular Hemoglobin 27.6 PG Mean Corpuscular Hemoglobin 33.1 % Concent Red Cell Distribution Width 16.7 % Platelet Count 213 TH/MM3 Mean Platelet Volume 11.7 FL Neutrophils (%) (Auto) % Lymphocytes (%) (Auto) % Monocytes (%) (Auto) % Eosinophils (%) (Auto) % Basophils (%) (Auto) % Neutrophils # (Auto) TH/MM3 Lymphocytes # (Auto) TH/MM3 Monocytes # (Auto) TH/MM3 Eosinophils # (Auto) TH/MM3 Basophils # (Auto) TH/MM3 CBC Comment AUTO DIFF Differential Total Cells 100 Counted Neutrophils % (Manual) 54 % Band Neutrophils % 41 % Lymphocytes % 2 % Monocytes % 1 % Neutrophils # (Manual) 21.4 TH/MM3 Metamyelocytes 2 % Differential Comment FINAL DIFF MANUAL Toxic Granulation 1+ Toxic Vacuolation PRESENT Dohle Bodies PRESENT Platelet Estimate NORMAL Platelet Morphology Comment ENLARGED Spherocytes OCC Target Cells 2+ Kelly-Brandermill Bodies PRESENT Sodium Level 141 MEQ/L Potassium Level 2.7 MEQ/L Chloride Level 109 MEQ/L Carbon Dioxide Level 21.4 MEQ/L Anion Gap 11 MEQ/L Blood Urea Nitrogen 13 MG/DL Creatinine 0.63 MG/DL Estimat Glomerular Filtration 102 ML/MIN Rate Random Glucose 219 MG/DL Calcium Level 7.6 MG/DL Phosphorus Level 2.0 MG/DL Magnesium Level 1.3 MG/DL Total Bilirubin 3.2 MG/DL Aspartate Amino Transf 151 U/L (AST/SGOT) Alanine Aminotransferase 136 U/L (ALT/SGPT) Alkaline Phosphatase 1086 U/L Total Protein 5.4 GM/DL Albumin 1.7 GM/DL Date/Time Procedure Status Source Growth 07/20/16 01:00 Urine Culture Received Urine Clean Catch Pending 07/19/16 12:40 Influenza Types A,B Antigen (MARION) - Final Complete Nasal Washing NEGATIVE FOR FLU A AND B ANTIGEN.... 07/19/16 12:10 Aerobic Blood Culture - Preliminary Resulted Blood Peripheral Gram Negative [place] 07/19/16 12:10 Anaerobic Blood Culture - Preliminary Resulted Gram Negative Kurtis Physical Examination HEENT: Pupils round and reactive to light; normocephalic; atraumatic; no jaundice. Throat is clear. NECK: Neck is supple, no JVD, no lymphadenopathy. CHEST: Chest is clear to auscultation and percussion. CARDIAC: Regular rate and rhythm with no murmur gallop or rubs. ABDOMEN: Soft, nondistended, diffused tenderness; bowel sounds are present in all four quadrants. EXTREMITIES: No clubbing, cyanosis, or edema. SKIN: Normal; no rash; no jaundice. COMBINATION PRESSER: No focal deficits; alert and oriented times three. (Rita Burgos [employer]) Assessment and Plan Plan - Sclerosing Cholangitis, N/V Abdominal pain, fevers, elevated LFTs in patient with hx of biliary strictures, sclerosing cholangitis with multiple admissions and extensive history. and had extensive work up in the past and was evaluated by GS, IR, tertiary center ( in [place]) and previous ERCP and attempts for ERCP/ permanent stent failed [facility]16)---> primary sclerosing cholangitis, dominant stricture right intrahepatic duct, periampullary diverticulum. During that admission, IR consulted for possible PTHC- do not feel that this can be done and therefore this was cancelled. Abnormal imaging of the gallbladder. HIDA (04/27/16)----> Nonvisualization of the gallbladder. ADDENDUM: Delayed imaging of the abdomen documents an ovoid area of activity in the right upper quadrant in the expected location of the gallbladder based on prior cross-sectional imaging studies. Delayed visualization the gallbladder should exclude complete cystic duct obstruction. However, based on prior imaging studies, the gallbladder demonstrated severe diffuse wall edema. S/P GS evaluation, does not plan to perform cholecystectomy at this time, recommends tx to tertiary. Pt presented to the ER at [facility] with complaints of worsening abdominal pain, N/V but no vomiting and fevers and fainting. The RUQ pain radiates to her back, which she describes as a sharp and constant. She also has associated nausea but and intermittent vomiting. She reported intermittent fevers at home with Tmax 103 Pt has been started on (Vancomycin, Zosyn add Flagyl) She has alternating constipation and diarrhea. She denies seeing blood in her stool. ( T. Bilirubin, usually runs 1.5-2.5), Total Bili 4.0, AST 262, INX650, AlkPhos 1744 on arrival. Repeat labs today with noted Tbili 3.2, AST 151, ALT 136, AlkPhos 1086. Abdomen/Pelvis CT (07/19/16)----> Continued cirrhotic appearance of the liver. Some areas of scarring or volume loss throughout the right lobe similar to the previous study. No definite solid mass is seen. Status post splenectomy. No significant retroperitoneal adenopathy. Will consider ERCP with possible stent placement on Saturday. - Coagulopathy. 11.7, will add vit.K - low albumin- will give albumin - Abnormal imaging of the gallbladder. HIDA (04/27/16)----> Nonvisualization of the gallbladder. ADDENDUM: Delayed imaging of the abdomen documents an ovoid area of activity in the right upper quadrant in the expected location of the gallbladder based on prior cross-sectional imaging studies. Delayed visualization the gallbladder should exclude complete cystic duct obstruction. However, based on prior imaging studies, the gallbladder demonstrated severe diffuse wall edema. S/P GS evaluation during last admission who does not plan to perform cholecystectomy and recommended tx to tertiary. IR was also consulted for possible PTC, they did not feel that they could reach area. - Liver cirrhosis. S/P liver biopsy at that time of both her normal liver parenchyma and her liver mass. The normal liver parenchyma revealed chronic hepatitis with bridging fibrosis and cirrhosis grade 2/4, stage 3-4/4 exhibiting bile duct tubular damage and ductopenia. The liver mass suggested chronic hepatitis with bridging fibrosis 2/4, stage III/4. She was evaluated by [facility], but states she was told that her MELD score was too low to be considered for liver transplant. Pt was reportedly not considered a liver transplant candidate due to recurrent lymphoma. - Leukocytosis/fevers, concern for sepsis. Blood Cx . Abx per ID Zosyn, vanco , and Flagyl . - She has a history of non-Hodgkin's lymphoma and completed chemotherapy in 2005, but has had an ongoing problem with biliary strictures and sclerosing cholangitis. Plan: - Full liquids - Monitor labs - cont abx per ID - Patient is following with [facility] Failed previous measures and attempts, s/p IR, GS consult and previous tertiary evaluation - Will monitor for now - Correct coagulopathy - Will need consider ERCP/stent on Saturday - Supportive care - Patient seen and examined by dr. Newberry and myself and this note is written on his behalf. (Rita Burgos) Physician Comments Patient seen and examined Agree with above Continue with current supportive care Monitor labs We will need to correct coagulopathy patient is given vitamin K We will need to correct hypoalbuminemia and albumin is also given (Markus Newberry MD) Rita Burgos Jul 20, 2016 12:00 Markus Newberry MD Jul 20, 2016 13:31
[2016-07-20 13:08] LABS: PROTHROMBIN TIME - PATIENT 136.3 SEC (9.8-11.6)
[2016-07-20 13:12] LABS: INTERNATIONAL NORMALIZED RATIO 11.1 RATIO
[2016-07-20] MEDS ORDERED: PHYTONADIONE INJ 10 MG in SODIUM CHLORIDE 0.9% INJ 50 ML IV ONE (14:00)
[2016-07-20] MEDS: ALBUMIN HUMAN 25% 25 GM/100 ML BAGP IV SCH ×2 (14:50→20:26)
--- NOTE | 2016-07-20 15:42 | PD.ID.CON ---
History of Present Illness Service ID Consult Requested By Dr Barajas Reason for Consult sepsis Primary Care Physician Gilmar Matos DO Diagnoses: History of Present Illness PT 46 yo F known to me from previous hospitalisation She has primary sclerosisng cholangitits and sp multiple stents/procedures She has a h/o biliary sepsis in the apst This time she developped RUQ paina and fevers chills started abruptly 2 days ago , weakness, malaise and presented with above complaints in ER She waas hypotensive and febrile with temp up to 103 and was started on broad spectrum abx (zosyn, vancomycin, flagyl) She feels better toady and her BP is normal All blood clx are + for GNR (Klebsiella) without resistance markers detected by verigene Review of Systems Except as stated in HPI: all other systems reviewed are Neg Past Family Social History Allergies: Coded Allergies: Gadolinium Derivatives (Verified Allergy, Severe, BREATHING PROBLEMS, N/V, CHILLS, 07/19/16) MRI PRECAUTION (Verified Allergy, Severe, NAUSEA; PER PATIENT IT IS A GADOLINIUM ALLERGY KMD 11/25/12, 07/19/16) Morphine (Verified Allergy, Severe, BREATHING PROBLEMS, 07/19/16) Toradol (Verified Allergy, Severe, Shortness of Breath, 07/19/16) *MDRO Multi-Drug Resistant Organism (Verified Adverse Reaction, Unknown, MRSA, 07/20/16) MRSA (abdomen) - 03/2013, 04/2014 MRSA PCR (nares) POSITIVE - 07/19/16 Past Medical History Biliary obstruction secondary to strictures Sclerosing cholangitis Non-Hodgkin's lymphoma Diabetes Ureterolithiasis MRSA and wound Liver Mass. Past Surgical History Multiple ERCP with stent placement Splenectomy Biliary drain Liver biopsy Shockwave lithotripsyreviewed Active Ordered Medications Medications where reviewed in EMR Antibiotics Include: zosyn, vancomycin, flagy Family History Non-Contributory. Social History No Tobacco. No ETOH. No Illicit Drugs. Physical Exam Vital Signs Vital Signs Date Time Temp Pulse Resp B/P Pulse Ox O2 Delivery O2 Flow Rate FiO2 07/20/16 14:00 83 07/20/16 12:00 99.1 81 16 96/65 97 07/20/16 12:00 81 07/20/16 11:15 13 07/20/16 10:00 77 07/20/16 08:00 77 07/20/16 08:00 98.8 77 13 108/69 98 07/20/16 04:00 98.3 93 15 91/58 96 07/20/16 02:23 16 07/20/16 00:00 129 07/20/16 00:00 103.2 129 23 124/79 96 07/19/16 22:00 127 07/19/16 20:00 98.8 106 15 114/70 99 07/19/16 20:00 108 07/19/16 18:00 97 07/19/16 17:00 98.3 89 26 100/62 90 Physical Exam CONSTITUTIONAL/GENERAL: This is a thin chronically ill appearing patient, in no apparent distress. SKIN: noo jaundice, rashes, or lesions. . Skin temperature appropriate. Not diaphoretic. HEAD: Atraumatic. Normocephalic. EYES: Pupils equal and round and reactive. Extraocular motions intact. minimal scleral icterus. No injection or drainage. Fundi not examined. ENT: Hearing grossly normal. Nose without bleeding or purulent drainage. Oral mucosae without visible erythema, exudates, masses, or lesions. Edentulous NECK: Trachea midline. Supple, nontender. No palpable thyroid enlargement or nodularity. CARDIOVASCULAR: Regular rate and rhythm without murmurs, gallops, or rubs. No JVD. Peripheral pulses symmetric. RESPIRATORY/CHEST: Symmetric, unlabored respirations. Clear to auscultation. Breath sounds equal bilaterally. No wheezes, rales, or rhonchi. GASTROINTESTINAL: Abdomen soft, marked RUQ tenderness w/o guarding or rebound , nondistended. + tender hepatomegaly, or palpable masses. No guarding. Bowel sounds present. GENITOURINARY: Without palpable bladder distension. MUSCULOSKELETAL: Extremities without clubbing, cyanosis, or edema. No joint tenderness or effusion noted. No calf tenderness. No mottling or clubbing. LYMPHATICS: No palpable cervical or supraclavicular adenopathy. NEUROLOGICAL: Awake and alert. Motor and sensory grossly within normal limits. Follows commands. Normal speech. Moves all extremities. PSYCHIATRIC: No obvious anxiety/depression. no apparent hallucinations or other psychotic thought process. Laboratory Laboratory Tests Test 07/19/16 07/19/16 07/19/16 07/20/16 16:40 17:15 18:46 01:00 Nasal Screen MRSA (PCR) POSITIVE Urine Color DARK-YELLOW YELLOW Urine Turbidity HAZY CLEAR Urine pH 6.0 5.5 Urine Specific [place] 1.024 1.017 Urine Protein 100 30 Urine Glucose (UA) 1000 NEG Urine Ketones NEG NEG Urine Occult Blood LARGE SMALL Urine Nitrite NEG NEG Urine Bilirubin MOD SMALL Urine Urobilinogen LESS THAN 2.0 LESS THAN 2.0 Urine Leukocyte Esterase NEG TRACE Urine RBC 76 4 Urine WBC 3 14 Urine Squamous Epithelial <1 <1 Cells Urine Calcium Oxalate Crystals FEW Urine Amorphous Sediment FEW Urine Hyaline Casts 1 Urine Mucus FEW FEW Microscopic Urinalysis Comment CULT NOT CATH-CULTURE INDICATED IND Prothrombin Time 40.1 Prothromb Time International 3.4 Ratio Activated Partial 38.5 Thromboplast Time Lactic Acid Level 1.0 Urine Renal Epithelial Cells <1 Urine Bacteria RARE Urine Yeast (Budding) RARE Test 07/20/16 07/20/16 07/20/16 07/20/16 03:00 11:42 13:13 14:49 White Blood Count 22.1 Red Blood Count 4.03 Hemoglobin 11.1 Hematocrit 33.6 Mean Corpuscular Volume 83.5 Mean Corpuscular Hemoglobin 27.6 Mean Corpuscular Hemoglobin 33.1 Concent Red Cell Distribution Width 16.7 Platelet Count 213 Mean Platelet Volume 11.7 Neutrophils (%) (Auto) Lymphocytes (%) (Auto) Monocytes (%) (Auto) Eosinophils (%) (Auto) Basophils (%) (Auto) Neutrophils # (Auto) Lymphocytes # (Auto) Monocytes # (Auto) Eosinophils # (Auto) Basophils # (Auto) CBC Comment AUTO DIFF Differential Total Cells 100 Counted Neutrophils % (Manual) 54 Band Neutrophils % 41 Lymphocytes % 2 Monocytes % 1 Neutrophils # (Manual) 21.4 Metamyelocytes 2 Differential Comment FINAL DIFF MANUAL Toxic Granulation 1+ Toxic Vacuolation PRESENT Dohle Bodies PRESENT Platelet Estimate NORMAL Platelet Morphology Comment ENLARGED Spherocytes OCC Target Cells 2+ Kelly-Hammett Bodies PRESENT Sodium Level 141 Potassium Level 2.7 Chloride Level 109 Carbon Dioxide Level 21.4 Anion Gap 11 Blood Urea Nitrogen 13 Creatinine 0.63 Estimat Glomerular Filtration 102 Rate Random Glucose 219 Calcium Level 7.6 Phosphorus Level 2.0 Magnesium Level 1.3 Total Bilirubin 3.2 Aspartate Amino Transf 151 (AST/SGOT) Alanine Aminotransferase 136 (ALT/SGPT) Alkaline Phosphatase 1086 Total Protein 5.4 Albumin 1.7 Prothrombin Time 136.3 Prothromb Time International 11.1 Ratio Blood Bank Comment Blood Type O NEGATIVE Date/Time Procedure Status Source Growth 07/20/16 01:00 Urine Culture Received Urine Clean Catch Pending 07/19/16 12:40 Influenza Types A,B Antigen (MARION) - Final Complete Nasal Washing NEGATIVE FOR FLU A AND B ANTIGEN.... 07/19/16 12:10 Aerobic Blood Culture - Preliminary Resulted Blood Peripheral Klebsiella Pneumoniae 07/19/16 12:10 Anaerobic Blood Culture - Preliminary Resulted Gram Negative Kurtis Result Diagram: 07/20/16 0300 07/20/16 0300 Imaging Last Impressions Chest X-Ray 07/19/16 1141 Signed Impressions: Service Date/Time: July 12:25 - CONCLUSION: 1. No acute cardiopulmonary findings. Farzad Morales MD Head CT 07/19/16 0000 Signed Impressions: Service Date/Time: , July 19, 2016 16:01 - CONCLUSION: 1. No evidence of acute intracranial pathology. No masses are identified. Nestor Isabel MD Abdomen/Pelvis CT 07/19/16 0000 Signed Impressions: Service Date/Time: July 16:00 - CONCLUSION: Continued cirrhotic appearance of the liver. Some areas of scarring or volume loss throughout the right lobe similar to the previous study. No definite solid mass is seen. Status post splenectomy. No significant retroperitoneal adenopathy. Fadi Deng MD Assessment and Plan Assessment and Plan Sepsis, Kleb pneumo, biliary origin Cholangitis PSC underlysing dz cont zosyn dc vancimycin - dc flagyl Discussed Condition With Christiane Odom MD Jul 20, 2016 15:41
--- NOTE | 2016-07-20 23:29 | EKG ---
Date Performed: 07/19/2016 Time Performed: 15:54:16 PTAGE: 45 years EKG: Sinus rhythm MARKED LEFT AXIS DEVIATION SEPTAL MYOCARDIAL INFARCTION ABNORMAL ECG PREVIOUS TRACING : 03/13/2016 21.08 DOCTOR: Ghada Campo Interpretating Date/Time 07/20/2016 23:27:14
[2016-07-21] VITALS (12 sets, daily range): BP systolic 103–113; BP diastolic 67–71; PULSE 76–97; RESP 12–24; TEMP 97.8–98.8; O2SAT 96–98
[2016-07-21 00:28] LABS: INTERNATIONAL NORMALIZED RATIO 1.1 RATIO
[2016-07-21 00:48] LABS: APTT (PATIENT) 33.3 SEC (24.3-30.1)
[2016-07-21 00:51] LABS: BICARBONATE 24.8 MEQ/L (21.0-32.0); MAGNESIUM 1.9 MG/DL (1.5-2.5); POTASSIUM 3.5 MEQ/L (3.5-5.1)
[2016-07-21] MEDS: POTASSIUM PHOSPHATE INJ 30 MMOL in SODIUM CHLOR 0.9% 250 ML INJ 250 ML IV PRN (02:55)
[2016-07-21] MEDS: PIPERACIL-TAZO 4.5 GM PREMIX 100 ML IV SCH ×4 (02:56→19:35)
[2016-07-21] MEDS: HYDROmorphone HCL PF 1 MG/ML VIAL IV PRN ×5 (02:56→19:35)
[2016-07-21] MEDS: CHLORHEXIDINE GLUCONATE 2 % 1 PACK (2 CLOTHS) TOP SCH (03:00)
[2016-07-21] MEDS: INSULIN NovoLIN REGULAR SUPPLEMENTAL SCALE SQ SCH ×4 (03:00→22:23)
[2016-07-21] MEDS: RESP: ALBUTEROL 2.5 MG/IPRATROPIUM 0.5 MG NEB (SCH) INH ×3 (04:00→14:50)
[2016-07-21 05:45] LABS: PROTHROMBIN TIME - PATIENT 11.1 SEC (9.8-11.6)
[2016-07-21 05:52] LABS: AUTOMATED NEUTROPHIL # 8.9 TH/MM3 (1.8-7.7); BASOPHIL # 0.3 TH/MM3 (0-0.2); EOSINOPHIL # 0.1 TH/MM3 (0-0.4); EOSINOPHIL % 0.6 % (0.0-4.0); HEMATOCRIT 29.7 % (35.0-46.0); LYMPHOCYTE # 6.7 TH/MM3 (1.0-4.8); MEAN CELL VOLUME 83.4 FL (80.0-100.0); MEAN CORPUSCULAR HEMOGLOBIN 27.6 PG (27.0-34.0); MEAN CORPUSCULAR HGB CONC 33.1 % (32.0-36.0); MONO % 1.9 % (0.0-8.0); NEUT % 54.5 % (16.0-70.0); PLATELET COUNT 162 TH/MM3 (150-450); RED BLOOD COUNT 3.57 MIL/MM3 (4.00-5.30); RED CELL DISTRIBUTION WIDTH 16.4 % (11.6-17.2); WHITE BLOOD COUNT 16.3 TH/MM3 (4.0-11.0)
[2016-07-21 06:13] LABS: ALT (GPT) 116 U/L (10-53); ANION GAP 9 MEQ/L (5-15); AST (GOT) 161 U/L (15-37); BICARBONATE 23.9 MEQ/L (21.0-32.0); BLOOD UREA NITROGEN 9 MG/DL (7-18); CHLORIDE 112 MEQ/L (98-107); GLOMERULAR FILTRATION RATE 188 ML/MIN (>89); MAGNESIUM 1.8 MG/DL (1.5-2.5); POTASSIUM 3.5 MEQ/L (3.5-5.1); SODIUM (NA) 145 MEQ/L (136-145)
[2016-07-21 06:14] LABS: ALKALINE PHOSPHATASE 728 U/L (45-117); TOTAL BILIRUBIN ADULT 4.4 MG/DL (0.2-1.0)
[2016-07-21 06:19] LABS: HEMO FLAGS AUTO DIFF
[2016-07-21] MEDS: ALBUMIN HUMAN 25% 25 GM/100 ML BAGP IV SCH ×3 (07:22→22:00)
[2016-07-21] MEDS ORDERED: BUMETANIDE INJ 1 MG/4 ML VIAL IV PUSH ONE (07:30)
[2016-07-21 07:35] LABS: BANDS 6 % (0-6); EOSINOPHILS 2 % (0-4); POLYS (SEG NEUTROPHILS) 86 % (16-70); WBC DIFF SAMPLE 100
[2016-07-21 07:37] LABS: HOWELL-JOLLY BODIES PRESENT (NONE SEEN)
[2016-07-21 07:38] LABS: PLATELET ESTIMATE SMEAR NORMAL (NORMAL); PLATELET MORPHOLOGY ENLARGED (NORMAL); SCAN/DIFF FINAL DIFF MANUAL; TARGET CELLS 1+ (NORMAL)
--- NOTE | 2016-07-21 07:38 | HHI.CCPN ---
Subjective Remarks/Hospital Course The patient is 45 years old with a past medical history of non-Hodgkin's lymphoma status post chemotherapy in 2005, primary sclerosing cholangitis and strictures with multiple ERCPs in the past and diabetes mellitus. She presented to [facility] ED with abdominal pain generalized for several months associated with intractable nausea and vomiting. In addition, the patient had one episode of non-bloody diarrhea today. According to her friend, she was also febrile and had a temperature of 101.4 at home. On arrival to the ED, she was hypotensive with systolic blood pressure in the 70s and had a temperature of 100.7. In the ER, she was given 3 liters of crystalloids in addition to Vancomycin and Zosyn. The patient also received Dilaudid for pain, Vancomycin and Zosyn and started on Levophed drip which is currently at 4 mics. The patient also had a presyncopal episode prior to arrival and she is scheduled to undergo a CT scan of the brain without contrast and CT abdomen and pelvis. Her laboratory data is significant for leukocytosis with a WBC of 16 and lactic acidemia with lactic acid level of 3.1. Her last CT abdomen and pelvis performed in May which showed pneumobilia and cirrhotic liver with no evidence of any obstruction. The patient is awake, alert and she denies any chest pain or shortness of breath. In addition, she denies any cough or edema of the lower extremities. 07/20 Patient remains on Levophed 9 mics, CVP 5. WBC increased 22 with 41 bands. T 103.2 07/21 Patient is off Levophed still reports abd pain. BC from 07/19 Kleb pneumonia, GNR. Afebrile. WBC trending down. Patient was given 3 u FFP and Vitamin K 10mg IV for INR 11 repeat INR 1.0 Objective Vital Signs Date Time Temp Pulse Resp B/P Pulse Ox O2 Delivery O2 Flow Rate FiO2 07/21/16 06:19 13 07/21/16 06:00 76 07/21/16 04:00 98.6 113/71 97 07/19/16 13:22 Room Air Intake and Output 07/20/16 07/20/16 07/21/16 08:00 16:00 00:00 Intake Total 1205 ml 2956 ml 2660 ml Output Total 575 ml 750 ml 610 ml Balance 630 ml 2206 ml 2050 ml Result Diagram: 07/21/16 0515 07/21/16 0515 Other Results Laboratory Tests Test 07/20/16 07/20/16 07/20/16 07/21/16 11:42 13:13 14:49 00:00 Prothrombin Time 136.3 SEC 12.0 SEC Prothromb Time International 11.1 RATIO 1.1 RATIO Ratio Blood Bank Comment Blood Type O NEGATIVE Activated Partial 33.3 SEC Thromboplast Time Sodium Level 145 MEQ/L Potassium Level 3.5 MEQ/L Chloride Level 112 MEQ/L Carbon Dioxide Level 24.8 MEQ/L Anion Gap 8 MEQ/L Blood Urea Nitrogen 11 MG/DL Creatinine 0.41 MG/DL Estimat Glomerular Filtration 167 ML/MIN Rate Random Glucose 232 MG/DL Calcium Level 8.2 MG/DL Phosphorus Level 1.0 MG/DL Magnesium Level 1.9 MG/DL Test 07/21/16 05:15 White Blood Count 16.3 TH/MM3 Red Blood Count 3.57 MIL/MM3 Hemoglobin 9.8 GM/DL Hematocrit 29.7 % Mean Corpuscular Volume 83.4 FL Mean Corpuscular Hemoglobin 27.6 PG Mean Corpuscular Hemoglobin 33.1 % Concent Red Cell Distribution Width 16.4 % Platelet Count 162 TH/MM3 Mean Platelet Volume 11.8 FL Neutrophils (%) (Auto) 54.5 % Lymphocytes (%) (Auto) 41.0 % Monocytes (%) (Auto) 1.9 % Eosinophils (%) (Auto) 0.6 % Basophils (%) (Auto) 2.0 % Neutrophils # (Auto) 8.9 TH/MM3 Lymphocytes # (Auto) 6.7 TH/MM3 Monocytes # (Auto) 0.3 TH/MM3 Eosinophils # (Auto) 0.1 TH/MM3 Basophils # (Auto) 0.3 TH/MM3 CBC Comment AUTO DIFF Prothrombin Time 11.1 SEC Prothromb Time International 1.0 RATIO Ratio Sodium Level 145 MEQ/L Potassium Level 3.5 MEQ/L Chloride Level 112 MEQ/L Carbon Dioxide Level 23.9 MEQ/L Anion Gap 9 MEQ/L Blood Urea Nitrogen 9 MG/DL Creatinine 0.37 MG/DL Estimat Glomerular Filtration 188 ML/MIN Rate Random Glucose 187 MG/DL Calcium Level 8.5 MG/DL Phosphorus Level 1.6 MG/DL Magnesium Level 1.8 MG/DL Total Bilirubin 4.4 MG/DL Aspartate Amino Transf 161 U/L (AST/SGOT) Alanine Aminotransferase 116 U/L (ALT/SGPT) Alkaline Phosphatase 728 U/L Total Protein 5.6 GM/DL Albumin 2.4 GM/DL Imaging Last Impressions Chest X-Ray 07/19/16 1141 Signed Impressions: Service Date/Time: July 12:25 - CONCLUSION: 1. No acute cardiopulmonary findings. Farzad Morales MD Head CT 07/19/16 0000 Signed Impressions: Service Date/Time: , July 19, 2016 16:01 - CONCLUSION: 1. No evidence of acute intracranial pathology. No masses are identified. Nestor Isabel MD Abdomen/Pelvis CT 07/19/16 0000 Signed Impressions: Service Date/Time: , July 19, 2016 16:00 - CONCLUSION: Continued cirrhotic appearance of the liver. Some areas of scarring or volume loss throughout the right lobe similar to the previous study. No definite solid mass is seen. Status post splenectomy. No significant retroperitoneal adenopathy. Fadi Deng MD Objective Remarks GENERAL: Patient is 46 yo ill appearing remains on Levophed 9 mics. SKIN: Warm and dry. HEAD: Normocephalic. EYES: No scleral icterus. No injection or drainage. NECK: Supple, trachea midline. No JVD or lymphadenopathy. CARDIOVASCULAR: Regular rate and rhythm without murmurs, gallops, or rubs. RESPIRATORY: Breath sounds equal bilaterally. No accessory muscle use. GASTROINTESTINAL: Abdomen soft, nondistended. Mild tenderness on palpation. MUSCULOSKELETAL: No cyanosis, or edema. Neuro: Awake and alert A/P Assessment and Plan 1. s/p Septic shock. -Gram negative bacteremia( Kleb pneumonia) 2. Abdominal pain, ? acute cholangitis. 3. Lactic acidemia..resolved 4. Mild acute kidney injury. 5. Elevated liver enzymes with hyperbilirubinemia. 6. History of primary sclerosing cholangitis and strictures. 7. Leukocytosis with bandemia. 8. Hyperglycemia with underlying history of diabetes mellitus. 9. History of non-Hodgkin's lymphoma status post chemo 10 years ago. 10. Chronic abdominal pain. 11 Coagulopathy likely 2md liver disease Plan: Neuro: Monitor neuro status closely and avoid any sedatives. CT brain: No acute process Pulm: Continue with oxygen and maintain sats above 92%. Bronchodilators CV: Off Levophed monitor HR and BP maintain MAP >65 mmHg. Lactic acid resolved. CVP monitoring. Continue with IVF. Given total 4L crystalloids since arrival. : Monitor renal function, Is and Os and electrolyte replacement per protocol. D/c IVF, on Albumin 25gms Q8 GI: On full liquid diet. on Protonix 40 mg IV daily for GI prophylaxis. GI is following possible ERCP on Saturday . CT abdomen/pelvis: No masses, cirrhotic appearance of liver ID: Continue with abx per ID(Zosyn) monitor for signs of infections(fever and WBC). CXR in the ED negative for acute disease. Nasal washing negative for influenza. BC 3/ Kleb pneumonia, GNR Heme: Monitor CBC and coags. s/p transfusion 3 u FFP and Vitamin K 10mg IV x1 on 07/20 for INR 11 now INR 1.0 On Vitamin K 10mg daily per GI Endo: On medium SSI with Accu-Cheks q.6 hours for glycemic control. GI prophylaxis with Protonix 40 mg daily and DVT prophylaxis with SCDs. INR: 3.4 on 3.2. No need for further AC. Lines: Right subclavian CVP placed 3/2 CCT 30 mins Michele Nickerson MD Jul 21, 2016 07:38
[2016-07-21] MEDS ORDERED: ALTEPLASE RECOMBINANT 2 MG VIAL INTRACATH ONE (07:45)
[2016-07-21] MEDS: PHYTONADIONE 10 MG/ML VIAL SQ SCH (09:00)
[2016-07-21] MEDS: PANTOPRAZOLE SODIUM 40 MG VIAL IV SCH (09:00)
[2016-07-21] MEDS ORDERED: HYDROmorphone HCL PF 1 MG/ML VIAL IV PUSH ONE (09:30)
--- NOTE | 2016-07-21 12:16 | HHI.GIFU ---
Subjective Remarks Resting in bed. Continues to have abdominal pain- no change. Denies fevers. ( Aliyah Mosher) Objective Vitals I&O Vital Signs Date Time Temp Pulse Resp B/P Pulse Ox O2 Delivery O2 Flow Rate FiO2 07/21/16 10:00 87 07/21/16 08:00 82 07/21/16 08:00 98.4 82 22 110/69 98 07/21/16 06:19 13 07/21/16 06:00 76 07/21/16 04:00 97 07/21/16 04:00 98.6 97 21 113/71 97 07/21/16 02:00 88 07/21/16 00:00 98.3 91 17 107/70 96 07/21/16 00:00 91 07/20/16 22:00 93 07/20/16 20:00 96 07/20/16 20:00 97.8 89 16 105/59 96 07/20/16 18:30 98.1 101 17 112/70 96 07/20/16 18:00 98 07/20/16 16:00 97.9 79 16 87/57 98 07/20/16 16:00 78 07/20/16 15:00 97.8 88 16 108/71 97 07/20/16 14:00 83 I/O 07/20/16 07/20/16 07/20/16 07/21/16 07/21/16 07/21/16 07:00 15:00 23:00 07:00 15:00 23:00 Intake Total 1205 ml 2956 ml 2660 ml 3548 ml Output Total 575 ml 750 ml 610 ml 1340 ml Balance 630 ml 2206 ml 2050 ml 2208 ml Intake Oral 240 ml 720 ml 480 ml 960 ml IV Total 965 ml 2236 ml 2180 ml 2588 ml Output Urine Total 575 ml 750 ml 610 ml 1340 ml Laboratory Laboratory Tests Test 07/20/16 07/20/16 07/21/16 07/21/16 13:13 14:49 00:00 05:15 Blood Bank Comment Blood Type O NEGATIVE Prothrombin Time 12.0 11.1 Prothromb Time International 1.1 1.0 Ratio Activated Partial 33.3 Thromboplast Time Sodium Level 145 145 Potassium Level 3.5 3.5 Chloride Level 112 112 Carbon Dioxide Level 24.8 23.9 Anion Gap 8 9 Blood Urea Nitrogen 11 9 Creatinine 0.41 0.37 Estimat Glomerular Filtration 167 188 Rate Random Glucose 232 187 Calcium Level 8.2 8.5 Phosphorus Level 1.0 1.6 Magnesium Level 1.9 1.8 White Blood Count 16.3 Red Blood Count 3.57 Hemoglobin 9.8 Hematocrit 29.7 Mean Corpuscular Volume 83.4 Mean Corpuscular Hemoglobin 27.6 Mean Corpuscular Hemoglobin 33.1 Concent Red Cell Distribution Width 16.4 Platelet Count 162 Mean Platelet Volume 11.8 Neutrophils (%) (Auto) 54.5 Lymphocytes (%) (Auto) 41.0 Monocytes (%) (Auto) 1.9 Eosinophils (%) (Auto) 0.6 Basophils (%) (Auto) 2.0 Neutrophils # (Auto) 8.9 Lymphocytes # (Auto) 6.7 Monocytes # (Auto) 0.3 Eosinophils # (Auto) 0.1 Basophils # (Auto) 0.3 CBC Comment AUTO DIFF Differential Total Cells 100 Counted Neutrophils % (Manual) 86 Band Neutrophils % 6 Lymphocytes % 4 Monocytes % 2 Eosinophils % 2 Neutrophils # (Manual) 15.0 Differential Comment FINAL DIFF MANUAL Platelet Estimate NORMAL Platelet Morphology Comment ENLARGED Target Cells 1+ Kelly-Sparkill Bodies PRESENT Hematology Comments Total Bilirubin 4.4 Aspartate Amino Transf 161 (AST/SGOT) Alanine Aminotransferase 116 (ALT/SGPT) Alkaline Phosphatase 728 Total Protein 5.6 Albumin 2.4 Date/Time Procedure Status Source Growth 07/21/16 08:52 Aerobic Blood Culture Received Blood Peripheral Pending 07/21/16 08:52 Anaerobic Blood Culture Received Blood Peripheral Pending 07/20/16 01:00 Urine Culture Received Urine Clean Catch Pending 07/19/16 12:40 Influenza Types A,B Antigen (MARION) - Final Complete Nasal Washing NEGATIVE FOR FLU A AND B ANTIGEN.... 07/19/16 12:10 Aerobic Blood Culture - Preliminary Resulted Blood Peripheral Klebsiella Pneumoniae 07/19/16 12:10 Anaerobic Blood Culture - Preliminary Resulted Gram Negative Kurtis Imaging Last Impressions Chest X-Ray 07/19/16 1141 Signed Impressions: Service Date/Time: July 12:25 - CONCLUSION: 1. No acute cardiopulmonary findings. Farzad Morales MD Head CT 07/19/16 0000 Signed Impressions: Service Date/Time: July 16:01 - CONCLUSION: 1. No evidence of acute intracranial pathology. No masses are identified. Nestor Isabel MD Abdomen/Pelvis CT 07/19/16 0000 Signed Impressions: Service Date/Time: July 16:00 - CONCLUSION: Continued cirrhotic appearance of the liver. Some areas of scarring or volume loss throughout the right lobe similar to the previous study. No definite solid mass is seen. Status post splenectomy. No significant retroperitoneal adenopathy. Fadi Deng MD Physical Exam HEENT: Normocephalic; atraumatic CHEST: CTA CARDIAC: RRR ABDOMEN: Soft, nondistended, diffuse tenderness-moderate; no hepatosplenomegaly ; bowel sounds are present in all four quadrants. EXTREMITIES: No clubbing, cyanosis, or edema. SKIN: Normal; no rash; + jaundice. [employer]: No focal deficits; alert and oriented times three. (Aliyah Mosher) Assessment and Plan Plan ASSESSMENT: - Sclerosing Cholangitis/Biliary Strictures with sepsis/fever, N/V/Abdominal pain. She is currently following with [facility]. Last ERCP (04/27/16)---> primary sclerosing cholangitis, dominant stricture right intrahepatic duct, periampullary diverticulum. During that admission, IR was consulted for possible PTHC, but they did not feel that this could be done and therefore it was cancelled. Abnormal imaging of the gallbladder. Abdomen/Pelvis CT (07/19/16)---- > Continued cirrhotic appearance of the liver. Some areas of scarring or volume loss throughout the right lobe similar to the previous study. No definite solid mass is seen. Status post splenectomy. No significant retroperitoneal adenopathy. She currently has bacteremia with Klebsiella, GNR, Elevated LFTs above her baseline (T. Bilirubin, usually runs 1.5-2.5, currently 4.4, AST 161, ALT 116, Alk Phosph 728. ID is following and she is getting Zosyn. Will monitor and consider ERCP with possible stent placement on Saturday. - Sepsis, Bacteremia, Fevers, Leukocytosis. BCx with Klebsiella, GNR. ID following, On Zosyn. - Liver cirrhosis. S/P liver biopsy at that time of both her normal liver parenchyma and her liver mass. The normal liver parenchyma revealed chronic hepatitis with bridging fibrosis and cirrhosis grade 2/4, stage 3-4/4 exhibiting bile duct tubular damage and ductopenia. The liver mass suggested chronic hepatitis with bridging fibrosis 2/4, stage III/4. She was evaluated by [facility], but states she was told that her MELD score was too low to be considered for liver transplant. Pt was reportedly not considered a liver transplant candidate due to recurrent lymphoma. - Hx of abnormal imaging of the gallbladder. HIDA (04/27/16)----> Nonvisualization of the gallbladder. ADDENDUM: Delayed imaging of the abdomen documents an ovoid area of activity in the right upper quadrant in the expected location of the gallbladder based on prior cross-sectional imaging studies. Delayed visualization the gallbladder should exclude complete cystic duct obstruction. However, based on prior imaging studies, the gallbladder demonstrated severe diffuse wall edema. S/P GS evaluation during last admission who did not feel this was contributing to her symptoms and did not recommend cholecystectomy. - Hx of non-Hodgkin's lymphoma and completed chemotherapy in 2005, but has had an ongoing problem with biliary strictures and sclerosing cholangitis. Plan: - Full liquids - Monitor labs - Zosyn - CBC, CMP in am - Supportive care - Possible ERCP with stent placement on Saturday - Patient seen and examined by Dr. Newberry and myself and this note is written on his behalf. (Aliyah Mosher) Physician Comments Patient seen and examined Agree with above Continue with current supportive care Monitor labs ERCP on Saturday to evaluate for possible biliary obstruction especially noting that her bilirubin is way above its baseline level and now with sepsis we need to rule obstruction out (Markus Newberry MD) Aliyah Mosher Jul 21, 2016 12:16 Markus Newberry MD Jul 21, 2016 14:19
[2016-07-21] MEDS: ONDANSETRON HCL 4 MG/2 ML VIAL IV PUSH PRN (13:33)
--- NOTE | 2016-07-21 14:53 | HHI.IDPN ---
Subjective Subjective Remarks pt is afebrile non hypotensive bandemia from 41% down to 6% co RUQ pain Antibiotics zosyn Allergies: Coded Allergies: Gadolinium Derivatives (Verified Allergy, Severe, BREATHING PROBLEMS, N/V, CHILLS, 07/19/16) MRI PRECAUTION (Verified Allergy, Severe, NAUSEA; PER PATIENT IT IS A GADOLINIUM ALLERGY KMD 11/25/12, 07/19/16) Morphine (Verified Allergy, Severe, BREATHING PROBLEMS, 07/19/16) Toradol (Verified Allergy, Severe, Shortness of Breath, 07/19/16) *MDRO Multi-Drug Resistant Organism (Verified Adverse Reaction, Unknown, MRSA, 07/20/16) 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 Vital Signs Date Time Temp Pulse Resp B/P Pulse Ox O2 Delivery O2 Flow Rate FiO2 07/21/16 10:00 87 07/21/16 08:00 82 07/21/16 08:00 98.4 82 22 110/69 98 07/21/16 06:19 13 07/21/16 06:00 76 07/21/16 04:00 97 07/21/16 04:00 98.6 97 21 113/71 97 07/21/16 02:00 88 07/21/16 00:00 98.3 91 17 107/70 96 07/21/16 00:00 91 07/20/16 22:00 93 07/20/16 20:00 96 07/20/16 20:00 97.8 89 16 105/59 96 07/20/16 18:30 98.1 101 17 112/70 96 07/20/16 18:00 98 07/20/16 16:00 97.9 79 16 87/57 98 07/20/16 16:00 78 07/20/16 15:00 97.8 88 16 108/71 97 07/20/16 07/20/16 07/21/16 15:00 23:00 07:00 Intake Total 2956 ml 2660 ml 3548 ml Output Total 750 ml 610 ml 1340 ml Balance 2206 ml 2050 ml 2208 ml Intake Oral 720 ml 480 ml 960 ml IV Total 2236 ml 2180 ml 2588 ml Output Urine Total 750 ml 610 ml 1340 ml . Laboratory Tests Test 07/20/16 07/21/16 03:00 05:15 White Blood Count 22.1 TH/MM3 16.3 TH/MM3 Red Blood Count 4.03 MIL/MM3 3.57 MIL/MM3 Hemoglobin 11.1 GM/DL 9.8 GM/DL Hematocrit 33.6 % 29.7 % Mean Corpuscular Volume 83.5 FL 83.4 FL Mean Corpuscular Hemoglobin 27.6 PG 27.6 PG Mean Corpuscular Hemoglobin 33.1 % 33.1 % Concent Red Cell Distribution Width 16.7 % 16.4 % Platelet Count 213 TH/MM3 162 TH/MM3 Mean Platelet Volume 11.7 FL 11.8 FL Neutrophils (%) (Auto) % 54.5 % Lymphocytes (%) (Auto) % 41.0 % Monocytes (%) (Auto) % 1.9 % Eosinophils (%) (Auto) % 0.6 % Basophils (%) (Auto) % 2.0 % Neutrophils # (Auto) TH/MM3 8.9 TH/MM3 Lymphocytes # (Auto) TH/MM3 6.7 TH/MM3 Monocytes # (Auto) TH/MM3 0.3 TH/MM3 Eosinophils # (Auto) TH/MM3 0.1 TH/MM3 Basophils # (Auto) TH/MM3 0.3 TH/MM3 CBC Comment AUTO DIFF AUTO DIFF Differential Total Cells 100 100 Counted Neutrophils % (Manual) 54 % 86 % Band Neutrophils % 41 % 6 % Lymphocytes % 2 % 4 % Monocytes % 1 % 2 % Neutrophils # (Manual) 21.4 TH/MM3 15.0 TH/MM3 Metamyelocytes 2 % Differential Comment FINAL DIFF FINAL DIFF MANUAL MANUAL Toxic Granulation 1+ Toxic Vacuolation PRESENT Dohle Bodies PRESENT Platelet Estimate NORMAL NORMAL Platelet Morphology Comment ENLARGED ENLARGED Spherocytes OCC Target Cells 2+ 1+ Kelly-[place] Bodies PRESENT PRESENT Eosinophils % 2 % Hematology Comments Laboratory Tests Test 07/19/16 07/20/16 07/21/16 07/21/16 18:46 03:00 00:00 05:15 Lactic Acid Level 1.0 mmol/L Sodium Level 141 MEQ/L 145 MEQ/L 145 MEQ/L Potassium Level 2.7 MEQ/L 3.5 MEQ/L 3.5 MEQ/L Chloride Level 109 MEQ/L 112 MEQ/L 112 MEQ/L Carbon Dioxide Level 21.4 MEQ/L 24.8 MEQ/L 23.9 MEQ/L Anion Gap 11 MEQ/L 8 MEQ/L 9 MEQ/L Blood Urea Nitrogen 13 MG/DL 11 MG/DL 9 MG/DL Creatinine 0.63 MG/DL 0.41 MG/DL 0.37 MG/DL Estimat Glomerular Filtration 102 ML/MIN 167 ML/MIN 188 ML/MIN Rate Random Glucose 219 MG/DL 232 MG/DL 187 MG/DL Calcium Level 7.6 MG/DL 8.2 MG/DL 8.5 MG/DL Phosphorus Level 2.0 MG/DL 1.0 MG/DL 1.6 MG/DL Magnesium Level 1.3 MG/DL 1.9 MG/DL 1.8 MG/DL Total Bilirubin 3.2 MG/DL 4.4 MG/DL Aspartate Amino Transf 151 U/L 161 U/L (AST/SGOT) Alanine Aminotransferase 136 U/L 116 U/L (ALT/SGPT) Alkaline Phosphatase 1086 U/L 728 U/L Total Protein 5.4 GM/DL 5.6 GM/DL Albumin 1.7 GM/DL 2.4 GM/DL Microbiology Date/Time Procedure Status Source Growth 07/19/16 11:50 Aerobic Blood Culture - Preliminary Resulted Blood Peripheral Gram Negative Kurtis 07/19/16 11:50 Anaerobic Blood Culture - Preliminary Resulted Gram Negative [place] 07/19/16 12:10 Aerobic Blood Culture - Preliminary Resulted Blood Peripheral Klebsiella Pneumoniae 07/19/16 12:10 Anaerobic Blood Culture - Preliminary Resulted Gram Negative Kurtis 07/19/16 12:40 Influenza Types A,B Antigen (MARION) - Final Complete Nasal Washing NEGATIVE FOR FLU A AND B ANTIGEN.... 07/20/16 01:00 Urine Culture - Preliminary Resulted Urine Clean Catch NO GROWTH IN 24 HOURS. 07/21/16 08:31 Aerobic Blood Culture Received Blood Peripheral Pending 07/21/16 08:31 Anaerobic Blood Culture Received Blood Peripheral Pending 07/21/16 08:52 Aerobic Blood Culture Received Blood Peripheral Pending 07/21/16 08:52 Anaerobic Blood Culture Received Blood Peripheral Pending Imaging Last Impressions Chest X-Ray 07/19/16 1141 Signed Impressions: Service Date/Time: July 12:25 - CONCLUSION: 1. No acute cardiopulmonary findings. Farzad Morales MD Head CT 07/19/16 0000 Signed Impressions: Service Date/Time: July 16:01 - CONCLUSION: 1. No evidence of acute intracranial pathology. No masses are identified. Nestor Isabel MD Abdomen/Pelvis CT 07/19/16 0000 Signed Impressions: Service Date/Time: July 16:00 - CONCLUSION: Continued cirrhotic appearance of the liver. Some areas of scarring or volume loss throughout the right lobe similar to the previous study. No definite solid mass is seen. Status post splenectomy. No significant retroperitoneal adenopathy. Fadi Deng MD Physical Exam CONSTITUTIONAL/GENERAL: This is a thin chronically ill appearing patient, in no apparent distress. SKIN: no jaundice, rashes, or lesions. . Skin temperature appropriate. Not diaphoretic. EYES: Pupils equal and round and reactive. Extraocular motions intact. minimal scleral icterus. No injection or drainage. Fundi not examined. CARDIOVASCULAR: Regular rate and rhythm without murmurs, gallops, or rubs. No JVD. Peripheral pulses symmetric. RESPIRATORY/CHEST: Symmetric, unlabored respirations. Clear to auscultation. Breath sounds equal bilaterally. No wheezes, rales, or rhonchi. GASTROINTESTINAL: Abdomen soft, marked RUQ tenderness w/o guarding or rebound , nondistended. + tender hepatomegaly, or palpable masses. No guarding. Bowel sounds present. MUSCULOSKELETAL: Extremities without clubbing, cyanosis, or edema. No joint tenderness or effusion noted. No calf tenderness. No mottling or clubbing. NEUROLOGICAL: Awake and alert. Motor and sensory grossly within normal limits. Follows commands. Normal speech. Moves all extremities. Assessment & Plan Remarks Sepsis, Kleb pneumo, biliary origin - improving clinically Cholangitis PSC underlysing dz cont zosyn ERCP planned anticipate eventual transition to po abx Christiane Jackosn MD Jul 21, 2016 14:53
[2016-07-21] MEDS ORDERED: PHARMACY ORDERED LAB XX ONE (20:45)
[2016-07-22] VITALS (11 sets, daily range): BP systolic 112–124; BP diastolic 68–80; PULSE 73–94; RESP 12–20; TEMP 97.8–98.9; O2SAT 95–97
[2016-07-22] MEDS: HYDROmorphone HCL PF 1 MG/ML VIAL IV PRN ×5 (01:11→22:39)
[2016-07-22] MEDS: CHLORHEXIDINE GLUCONATE 2 % 1 PACK (2 CLOTHS) TOP SCH (03:25)
[2016-07-22] MEDS: PIPERACIL-TAZO 4.5 GM PREMIX 100 ML IV SCH ×4 (03:25→19:38)
[2016-07-22] MEDS: INSULIN NovoLIN REGULAR SUPPLEMENTAL SCALE SQ SCH ×4 (03:25→19:41)
[2016-07-22] MEDS: RESP: ALBUTEROL 2.5 MG/IPRATROPIUM 0.5 MG NEB (SCH) INH ×4 (03:31→21:01)
[2016-07-22] MEDS: ALBUMIN HUMAN 25% 25 GM/100 ML BAGP IV SCH ×3 (05:53→22:00)
[2016-07-22 07:12] LABS: HEMATOCRIT 30.4 % (35.0-46.0); MEAN CELL VOLUME 82.7 FL (80.0-100.0); MEAN CORPUSCULAR HEMOGLOBIN 27.8 PG (27.0-34.0); MEAN CORPUSCULAR HGB CONC 33.6 % (32.0-36.0); PLATELET COUNT 167 TH/MM3 (150-450); RED BLOOD COUNT 3.67 MIL/MM3 (4.00-5.30); RED CELL DISTRIBUTION WIDTH 16.8 % (11.6-17.2); WHITE BLOOD COUNT 9.9 TH/MM3 (4.0-11.0)
[2016-07-22 07:14] LABS: HEMO FLAGS AUTO DIFF
[2016-07-22 07:35] LABS: ALKALINE PHOSPHATASE 859 U/L (45-117); ALT (GPT) 113 U/L (10-53); ANION GAP 9 MEQ/L (5-15); AST (GOT) 141 U/L (15-37); BICARBONATE 28.7 MEQ/L (21.0-32.0); BLOOD UREA NITROGEN 9 MG/DL (7-18); CHLORIDE 105 MEQ/L (98-107); GLOMERULAR FILTRATION RATE 200 ML/MIN (>89); MAGNESIUM 1.4 MG/DL (1.5-2.5); SODIUM (NA) 143 MEQ/L (136-145); TOTAL BILIRUBIN ADULT 5.2 MG/DL (0.2-1.0)
[2016-07-22] MEDS: PHYTONADIONE 10 MG/ML VIAL SQ SCH (07:35)
[2016-07-22] MEDS: PANTOPRAZOLE SODIUM 40 MG VIAL IV SCH (07:35)
[2016-07-22 07:38] LABS: POTASSIUM 2.9 MEQ/L (3.5-5.1)
[2016-07-22] MEDS: POTASSIUM CHLOR 40 MEQ PREMIX 100 ML IV PRN (07:42)
--- NOTE | 2016-07-22 08:16 | HHI.CCPN ---
Subjective Remarks/Hospital Course The patient is 45 years old with a past medical history of non-Hodgkin's lymphoma status post chemotherapy in 2005, primary sclerosing cholangitis and strictures with multiple ERCPs in the past and diabetes mellitus. She presented to [facility] ED with abdominal pain generalized for several months associated with intractable nausea and vomiting. In addition, the patient had one episode of non-bloody diarrhea today. According to her friend, she was also febrile and had a temperature of 101.4 at home. On arrival to the ED, she was hypotensive with systolic blood pressure in the 70s and had a temperature of 100.7. In the ER, she was given 3 liters of crystalloids in addition to Vancomycin and Zosyn. The patient also received Dilaudid for pain, Vancomycin and Zosyn and started on Levophed drip which is currently at 4 mics. The patient also had a presyncopal episode prior to arrival and she is scheduled to undergo a CT scan of the brain without contrast and CT abdomen and pelvis. Her laboratory data is significant for leukocytosis with a WBC of 16 and lactic acidemia with lactic acid level of 3.1. Her last CT abdomen and pelvis performed in May which showed pneumobilia and cirrhotic liver with no evidence of any obstruction. The patient is awake, alert and she denies any chest pain or shortness of breath. In addition, she denies any cough or edema of the lower extremities. 07/20 Patient remains on Levophed 9 mics, CVP 5. WBC increased 22 with 41 bands. T 103.2 07/21 Patient is off Levophed still reports abd pain. BC from 07/19 Kleb pneumonia, GNR. Afebrile. WBC trending down. Patient was given 3 u FFP and Vitamin K 10mg IV for INR 11 repeat INR 1.0 07/22 No acute events overnight. Afebrile. For ERCP tomorrow. WBC continue to trend down. Feeling somewhat better. Objective Vital Signs Date Time Temp Pulse Resp B/P Pulse Ox O2 Delivery O2 Flow Rate FiO2 07/22/16 06:00 80 07/22/16 04:00 98.4 12 117/68 96 07/19/16 13:22 Room Air Intake and Output 07/21/16 07/21/16 07/22/16 08:00 16:00 00:00 Intake Total 3548 ml 953 ml 836 ml Output Total 1340 ml 3425 ml 650 ml Balance 2208 ml -2472 ml 186 ml Result Diagram: 07/22/16 0600 07/22/16 0600 Other Results Laboratory Tests Test 07/22/16 06:00 White Blood Count 9.9 TH/MM3 Red Blood Count 3.67 MIL/MM3 Hemoglobin 10.2 GM/DL Hematocrit 30.4 % Mean Corpuscular Volume 82.7 FL Mean Corpuscular Hemoglobin 27.8 PG Mean Corpuscular Hemoglobin 33.6 % Concent Red Cell Distribution Width 16.8 % Platelet Count 167 TH/MM3 Mean Platelet Volume 12.3 FL Neutrophils (%) (Auto) % Lymphocytes (%) (Auto) % Monocytes (%) (Auto) % Eosinophils (%) (Auto) % Basophils (%) (Auto) % Neutrophils # (Auto) TH/MM3 Lymphocytes # (Auto) TH/MM3 Monocytes # (Auto) TH/MM3 Eosinophils # (Auto) TH/MM3 Basophils # (Auto) TH/MM3 CBC Comment AUTO DIFF Sodium Level 143 MEQ/L Potassium Level 2.9 MEQ/L Chloride Level 105 MEQ/L Carbon Dioxide Level 28.7 MEQ/L Anion Gap 9 MEQ/L Blood Urea Nitrogen 9 MG/DL Creatinine 0.35 MG/DL Estimat Glomerular Filtration 200 ML/MIN Rate Random Glucose 147 MG/DL Calcium Level 8.3 MG/DL Phosphorus Level 1.9 MG/DL Magnesium Level 1.4 MG/DL Total Bilirubin 5.2 MG/DL Aspartate Amino Transf 141 U/L (AST/SGOT) Alanine Aminotransferase 113 U/L (ALT/SGPT) Alkaline Phosphatase 859 U/L Total Protein 5.5 GM/DL Albumin 2.4 GM/DL Imaging Last Impressions Chest X-Ray 07/19/16 1141 Signed Impressions: Service Date/Time: July 12:25 - CONCLUSION: 1. No acute cardiopulmonary findings. Farzad Morales MD Head CT 07/19/16 0000 Signed Impressions: Service Date/Time: July 16:01 - CONCLUSION: 1. No evidence of acute intracranial pathology. No masses are identified. Nestor Isabel MD Abdomen/Pelvis CT 07/19/16 0000 Signed Impressions: Service Date/Time: July 16:00 - CONCLUSION: Continued cirrhotic appearance of the liver. Some areas of scarring or volume loss throughout the right lobe similar to the previous study. No definite solid mass is seen. Status post splenectomy. No significant retroperitoneal adenopathy. Fadi Deng MD Objective Remarks GENERAL: Patient is 46 yo ill appearing lying in bed in NAD SKIN: Warm and dry. HEAD: Normocephalic. EYES: No scleral icterus. No injection or drainage. NECK: Supple, trachea midline. No JVD or lymphadenopathy. CARDIOVASCULAR: Regular rate and rhythm without murmurs, gallops, or rubs. RESPIRATORY: Breath sounds equal bilaterally. No accessory muscle use. GASTROINTESTINAL: Abdomen soft, nondistended. Mild tenderness on palpation. MUSCULOSKELETAL: No cyanosis, or edema. Neuro: Awake and alert A/P Assessment and Plan 1. s/p Septic shock. -Gram negative bacteremia( Kleb pneumonia) 2. Abdominal pain, ? acute cholangitis. 3. Lactic acidemia..resolved 4. Mild acute kidney injury. 5. Elevated liver enzymes with hyperbilirubinemia. 6. History of primary sclerosing cholangitis and strictures. 7. Leukocytosis with bandemia. 8. Hyperglycemia with underlying history of diabetes mellitus. 9. History of non-Hodgkin's lymphoma status post chemo 10 years ago. 10. Chronic abdominal pain. 11 Coagulopathy likely 2md liver disease Plan: Neuro: Monitor neuro status closely and avoid any sedatives. CT brain: No acute process Pulm: Continue with oxygen and maintain sats above 92%. Bronchodilators CV: Off Levophed monitor HR and BP maintain MAP >65 mmHg. Lactic acid resolved : Monitor renal function, Is and Os and electrolyte replacement per protocol. on Albumin 25gms Q8. Will need K, Mg, Phos replacement today GI: On full liquid diet. on Protonix 40 mg IV daily for GI prophylaxis. GI is following for ERCP tomorrow CT abdomen/pelvis: No masses, cirrhotic appearance of liver ID: Continue with abx per ID(Zosyn) monitor for signs of infections(fever and WBC). CXR in the ED negative for acute disease. Nasal washing negative for influenza. BC 07/19 Kleb pneumonia, GNR, follow up on BC from 07/21 Heme: Monitor CBC and coags. s/p transfusion 3 u FFP and Vitamin K 10mg IV x1 on 07/20 for INR 11 now INR 1.0 On Vitamin K 10mg daily per GI Endo: On medium SSI with Accu-Cheks q.6 hours for glycemic control. GI prophylaxis with Protonix 40 mg daily and DVT prophylaxis with SCDs only Lines: Right subclavian CVP placed 3/2 Level 3 Michele Nickerson MD Jul 22, 2016 08:16
[2016-07-22 08:19] LABS: BANDS 3 % (0-6); EOSINOPHILS 1 % (0-4); HOWELL-JOLLY BODIES PRESENT (NONE SEEN); NEUTROPHIL # MANUAL DIFF 8.2 TH/MM3 (1.8-7.7); PLATELET ESTIMATE SMEAR NORMAL (NORMAL); PLATELET MORPHOLOGY ENLARGED (NORMAL); POLYS (SEG NEUTROPHILS) 80 % (16-70); SCAN/DIFF FINAL DIFF MANUAL; TARGET CELLS 2+ (NORMAL); WBC DIFF SAMPLE 100
[2016-07-22] MEDS: MAGNESIUM SULFATE INJ 2 GM in SODIUM CHLORIDE 0.9% INJ 96 ML IV PRN (10:04)
[2016-07-22] MEDS: POTASSIUM PHOSPHATE INJ 30 MMOL in SODIUM CHLOR 0.9% 250 ML INJ 250 ML IV PRN (13:04)
--- NOTE | 2016-07-22 17:59 | HHI.GIFU ---
Subjective Remarks Resting in bed. Continues to have abdominal pain, nausea without vomiting. Tolerating clear liquids. Labs essentially unchanged. D/W patient further evaluation with ERCP with possible stent placement- procedure, risks, benefits, and she would like to proceed. (Aliyah Mosher) Objective Vitals I&O Vital Signs Date Time Temp Pulse Resp B/P Pulse Ox O2 Delivery O2 Flow Rate FiO2 07/22/16 16:00 98.1 87 17 124/80 95 07/22/16 16:00 87 07/22/16 14:00 80 07/22/16 12:00 97.8 73 20 112/69 97 07/22/16 12:00 73 07/22/16 10:00 76 07/22/16 08:00 98.7 86 16 116/70 97 07/22/16 08:00 86 07/22/16 06:00 80 07/22/16 04:00 98.4 74 12 117/68 96 07/22/16 04:00 74 07/22/16 00:00 77 07/22/16 00:00 98.9 77 12 122/71 95 07/21/16 22:00 95 07/21/16 20:00 98.5 88 12 103/68 97 07/21/16 20:00 88 07/21/16 18:00 80 I/O 07/21/16 07/21/16 07/21/16 07/22/16 07/22/16 07/22/16 07:00 15:00 23:00 07:00 15:00 23:00 Intake Total 3548 ml 953 ml 836 ml 230 ml 741 ml Output Total 1340 ml 3425 ml 650 ml 275 ml 400 ml Balance 2208 ml -2472 ml 186 ml -45 ml 341 ml Intake Oral 960 ml 480 ml 500 ml 240 ml IV Total 2588 ml 473 ml 336 ml 230 ml 501 ml Output Urine Total 1340 ml 3425 ml 650 ml 275 ml 400 ml # Bowel Movements 0 0 Laboratory Laboratory Tests Test 07/22/16 06:00 White Blood Count 9.9 Red Blood Count 3.67 Hemoglobin 10.2 Hematocrit 30.4 Mean Corpuscular Volume 82.7 Mean Corpuscular Hemoglobin 27.8 Mean Corpuscular Hemoglobin 33.6 Concent Red Cell Distribution Width 16.8 Platelet Count 167 Mean Platelet Volume 12.3 Neutrophils (%) (Auto) Lymphocytes (%) (Auto) Monocytes (%) (Auto) Eosinophils (%) (Auto) Basophils (%) (Auto) Neutrophils # (Auto) Lymphocytes # (Auto) Monocytes # (Auto) Eosinophils # (Auto) Basophils # (Auto) CBC Comment AUTO DIFF Differential Total Cells 100 Counted Neutrophils % (Manual) 80 Band Neutrophils % 3 Lymphocytes % 7 Monocytes % 9 Eosinophils % 1 Neutrophils # (Manual) 8.2 Differential Comment FINAL DIFF MANUAL Platelet Estimate NORMAL Platelet Morphology Comment ENLARGED Target Cells 2+ Kelly-[place] Bodies PRESENT Sodium Level 143 Potassium Level 2.9 Chloride Level 105 Carbon Dioxide Level 28.7 Anion Gap 9 Blood Urea Nitrogen 9 Creatinine 0.35 Estimat Glomerular Filtration 200 Rate Random Glucose 147 Calcium Level 8.3 Phosphorus Level 1.9 Magnesium Level 1.4 Total Bilirubin 5.2 Aspartate Amino Transf 141 (AST/SGOT) Alanine Aminotransferase 113 (ALT/SGPT) Alkaline Phosphatase 859 Total Protein 5.5 Albumin 2.4 Date/Time Procedure Status Source Growth 07/21/16 08:52 Aerobic Blood Culture - Preliminary Resulted Blood Peripheral NO GROWTH IN 1 DAY 07/21/16 08:52 Anaerobic Blood Culture - Preliminary Resulted Blood Peripheral NO GROWTH IN 1 DAY 07/20/16 01:00 Urine Culture - Final Complete Urine Clean Catch NO GROWTH IN 48 HOURS. 07/19/16 12:40 Influenza Types A,B Antigen (MARION) - Final Complete Nasal Washing NEGATIVE FOR FLU A AND B ANTIGEN.... 07/19/16 12:10 Aerobic Blood Culture - Final Complete Blood Peripheral Klebsiella Pneumoniae 07/19/16 12:10 Anaerobic Blood Culture - Final Complete Klebsiella Pneumoniae Imaging Last Impressions Chest X-Ray 07/19/16 1141 Signed Impressions: Service Date/Time: July 12:25 - CONCLUSION: 1. No acute cardiopulmonary findings. Farzad Morales MD Head CT 07/19/16 0000 Signed Impressions: Service Date/Time: July 16:01 - CONCLUSION: 1. No evidence of acute intracranial pathology. No masses are identified. Nestor Isabel MD Abdomen/Pelvis CT 07/19/16 0000 Signed Impressions: Service Date/Time: July 16:00 - CONCLUSION: Continued cirrhotic appearance of the liver. Some areas of scarring or volume loss throughout the right lobe similar to the previous study. No definite solid mass is seen. Status post splenectomy. No significant retroperitoneal adenopathy. Fadi Deng MD Physical Exam HEENT: Normocephalic; atraumatic CHEST: CTA CARDIAC: RRR ABDOMEN: Soft, nondistended, diffuse tenderness-moderate; no hepatosplenomegaly ; bowel sounds are present in all four quadrants. EXTREMITIES: No clubbing, cyanosis, or edema. SKIN: Normal; no rash; + jaundice. COMMUNITY ADMINISTRATOR: No focal deficits; alert and oriented times three. (MosherAliyah Laresramiro FU) Assessment and Plan Plan ASSESSMENT: - Sclerosing Cholangitis/Biliary Strictures with sepsis/fever, N/V/Abdominal pain. She is currently following with [facility]. Last ERCP (04/27/16)---> primary sclerosing cholangitis, dominant stricture right intrahepatic duct, periampullary diverticulum. During that admission, IR was consulted for possible PTHC, but they did not feel that this could be done and therefore it was cancelled. Abnormal imaging of the gallbladder. Abdomen/Pelvis CT (07/19/16)---- > Continued cirrhotic appearance of the liver. Some areas of scarring or volume loss throughout the right lobe similar to the previous study. No definite solid mass is seen. Status post splenectomy. No significant retroperitoneal adenopathy. She currently has bacteremia with Klebsiella, GNR, Elevated LFTs above her baseline (T. Bilirubin, usually runs 1.5-2.5, now with LFTs above baseline and trending up 5.2, AST 141, ALT 113, Alk Phosph 859. ID is following and she is getting Zosyn. Plan for ERCP to evaluate for possible biliary obstruction especially noting that her bilirubin is way above its baseline level and now with sepsis we need to rule obstruction out. - Sepsis, Bacteremia, Fevers, Leukocytosis. BCx with Klebsiella, GNR. ID following, On Zosyn. WBC 9.9. Afebrile. - Liver cirrhosis. S/P liver biopsy at that time of both her normal liver parenchyma and her liver mass. The normal liver parenchyma revealed chronic hepatitis with bridging fibrosis and cirrhosis grade 2/4, stage 3-4/4 exhibiting bile duct tubular damage and ductopenia. The liver mass suggested chronic hepatitis with bridging fibrosis 2/4, stage III/4. She was evaluated by [facility], but states she was told that her MELD score was too low to be considered for liver transplant. Pt was reportedly not considered a liver transplant candidate due to recurrent lymphoma. - Hx of abnormal imaging of the gallbladder. HIDA (04/27/16)----> Nonvisualization of the gallbladder. ADDENDUM: Delayed imaging of the abdomen documents an ovoid area of activity in the right upper quadrant in the expected location of the gallbladder based on prior cross-sectional imaging studies. Delayed visualization the gallbladder should exclude complete cystic duct obstruction. However, based on prior imaging studies, the gallbladder demonstrated severe diffuse wall edema. S/P GS evaluation during last admission who did not feel this was contributing to her symptoms and did not recommend cholecystectomy. - Hx of non-Hodgkin's lymphoma and completed chemotherapy in 2005, but has had an ongoing problem with biliary strictures and sclerosing cholangitis. Plan: - Plan for ERCP in am - Obtain consents - NPO after MN - PPI - Zosyn - CBC, CMP in am - Supportive care - Further recommendations to follow based on results of above - Patient seen and examined by Dr. Newberry and myself and this note is written on his behalf. (Aliyah Mosher) Physician Comments Patient Seen and examined Agree with above Continue with current supportive care Monitor labs Plan for ERCP tomorrow (Markus Newberry MD) Aliyah Mosher Jul 22, 2016 17:59 Markus Newberry MD Jul 22, 2016 19:30
[2016-07-23] VITALS (12 sets, daily range): BP systolic 119–137; BP diastolic 74–86; PULSE 78–96; RESP 10–18; TEMP 98.4–99.3; O2SAT 94–98
[2016-07-23 00:19] LABS: MAGNESIUM 1.5 MG/DL (1.5-2.5); POTASSIUM 3.4 MEQ/L (3.5-5.1)
[2016-07-23] MEDS: MAGNESIUM SULFATE INJ 2 GM in SODIUM CHLORIDE 0.9% INJ 96 ML IV PRN ×2 (01:59→21:26)
[2016-07-23] MEDS: PIPERACIL-TAZO 4.5 GM PREMIX 100 ML IV SCH ×4 (01:59→21:07)
[2016-07-23] MEDS: POTASSIUM PHOSPHATE INJ 30 MMOL in SODIUM CHLOR 0.9% 250 ML INJ 250 ML IV PRN ×2 (01:59→21:26)
[2016-07-23] MEDS: INSULIN NovoLIN REGULAR SUPPLEMENTAL SCALE SQ SCH ×4 (03:13→21:07)
[2016-07-23] MEDS: HYDROmorphone HCL PF 1 MG/ML VIAL IV PRN ×5 (03:13→21:08)
[2016-07-23] MEDS: RESP: ALBUTEROL 2.5 MG/IPRATROPIUM 0.5 MG NEB (SCH) INH ×3 (03:15→16:00)
[2016-07-23] MEDS: CHLORHEXIDINE GLUCONATE 2 % 1 PACK (2 CLOTHS) TOP SCH (04:00)
[2016-07-23] MEDS: ALBUMIN HUMAN 25% 25 GM/100 ML BAGP IV SCH (06:00)
--- NOTE | 2016-07-23 08:02 | HHI.CCPN ---
Subjective Remarks/Hospital Course The patient is 45 years old with a past medical history of non-Hodgkin's lymphoma status post chemotherapy in 2005, primary sclerosing cholangitis and strictures with multiple ERCPs in the past and diabetes mellitus. She presented to [facility] ED with abdominal pain generalized for several months associated with intractable nausea and vomiting. In addition, the patient had one episode of non-bloody diarrhea today. According to her friend, she was also febrile and had a temperature of 101.4 at home. On arrival to the ED, she was hypotensive with systolic blood pressure in the 70s and had a temperature of 100.7. In the ER, she was given 3 liters of crystalloids in addition to Vancomycin and Zosyn. The patient also received Dilaudid for pain, Vancomycin and Zosyn and started on Levophed drip which is currently at 4 mics. The patient also had a presyncopal episode prior to arrival and she is scheduled to undergo a CT scan of the brain without contrast and CT abdomen and pelvis. Her laboratory data is significant for leukocytosis with a WBC of 16 and lactic acidemia with lactic acid level of 3.1. Her last CT abdomen and pelvis performed in May which showed pneumobilia and cirrhotic liver with no evidence of any obstruction. The patient is awake, alert and she denies any chest pain or shortness of breath. In addition, she denies any cough or edema of the lower extremities. 07/20 Patient remains on Levophed 9 mics, CVP 5. WBC increased 22 with 41 bands. T 103.2 07/21 Patient is off Levophed still reports abd pain. BC from 07/19 Kleb pneumonia, GNR. Afebrile. WBC trending down. Patient was given 3 u FFP and Vitamin K 10mg IV for INR 11 repeat INR 1.0 07/22 No acute events overnight. Afebrile. For ERCP tomorrow. WBC continue to trend down. Feeling somewhat better. 07/23 No acute events overnight. Patient is for ERCP today. Afebrile. Objective Vital Signs Date Time Temp Pulse Resp B/P Pulse Ox O2 Delivery O2 Flow Rate FiO2 07/23/16 06:00 79 07/23/16 04:00 98.9 10 123/77 96 07/19/16 13:22 Room Air Intake and Output 07/22/16 07/22/16 07/23/16 08:00 16:00 00:00 Intake Total 230 ml 741 ml 400 ml Output Total 275 ml 400 ml 1000 ml Balance -45 ml 341 ml -600 ml Result Diagram: 07/22/16 0600 07/22/16 2340 Other Results Laboratory Tests Test 07/22/16 23:40 Potassium Level 3.4 MEQ/L Phosphorus Level 2.1 MG/DL Magnesium Level 1.5 MG/DL Imaging Last Impressions Chest X-Ray 07/19/16 1141 Signed Impressions: Service Date/Time: July 12:25 - CONCLUSION: 1. No acute cardiopulmonary findings. Farzad Morales MD Head CT 07/19/16 0000 Signed Impressions: Service Date/Time: , July 19, 2016 16:01 - CONCLUSION: 1. No evidence of acute intracranial pathology. No masses are identified. Nestor Isabel MD Abdomen/Pelvis CT 07/19/16 0000 Signed Impressions: Service Date/Time: July 16:00 - CONCLUSION: Continued cirrhotic appearance of the liver. Some areas of scarring or volume loss throughout the right lobe similar to the previous study. No definite solid mass is seen. Status post splenectomy. No significant retroperitoneal adenopathy. Fadi Deng MD Objective Remarks GENERAL: Patient is 46 yo ill appearing lying in bed in NAD SKIN: Warm and dry. HEAD: Normocephalic. EYES: No scleral icterus. No injection or drainage. NECK: Supple, trachea midline. No JVD or lymphadenopathy. CARDIOVASCULAR: Regular rate and rhythm without murmurs, gallops, or rubs. RESPIRATORY: Breath sounds equal bilaterally. No accessory muscle use. GASTROINTESTINAL: Abdomen soft, nondistended. Mild tenderness on palpation. MUSCULOSKELETAL: No cyanosis, or edema. Neuro: Awake and alert A/P Assessment and Plan 1. s/p Septic shock. -Gram negative bacteremia( Kleb pneumonia) 2. Abdominal pain, ? acute cholangitis. 3. Lactic acidemia..resolved 4. Mild acute kidney injury. 5. Elevated liver enzymes with hyperbilirubinemia. 6. History of primary sclerosing cholangitis and strictures. 7. Leukocytosis with bandemia. 8. Hyperglycemia with underlying history of diabetes mellitus. 9. History of non-Hodgkin's lymphoma status post chemo 10 years ago. 10. Chronic abdominal pain. 11 Coagulopathy likely 2md liver disease Plan: Neuro: Monitor neuro status closely and avoid any sedatives. CT brain: No acute process Pulm: Continue with oxygen and maintain sats above 92%. Bronchodilators CV: Monitor HR and BP maintain MAP >65 mmHg. Lactic acid resolved : Monitor renal function, Is and Os and electrolyte replacement per protocol. on Albumin 25gms Q8. GI: On full liquid diet. on Protonix 40 mg IV daily for GI prophylaxis. GI is following for ERCP today CT abdomen/pelvis: No masses, cirrhotic appearance of liver ID: Continue with abx per ID(Zosyn) monitor for signs of infections(fever and WBC). CXR in the ED negative for acute disease. Nasal washing negative for influenza. BC 07/19 Kleb pneumonia, GNR, follow up on BC from 07/21..NGTD Heme: Monitor CBC and coags. s/p transfusion 3 u FFP and Vitamin K 10mg IV x1 on 07/20 for INR 11 now INR 1.0 On Vitamin K 10mg daily per GI Endo: On medium SSI with Accu-Cheks q.6 hours for glycemic control. GI prophylaxis with Protonix 40 mg daily and DVT prophylaxis with SCDs only Lines: Right subclavian CVP placed 07/19 Will sign off and transfer acre to [facility] Level 2 Michele Nickerson MD Jul 23, 2016 08:02
[2016-07-23] MEDS: PANTOPRAZOLE SODIUM 40 MG VIAL IV SCH (08:24)
[2016-07-23 08:46] LABS: MEAN CELL VOLUME 83.5 FL (80.0-100.0); MEAN CORPUSCULAR HEMOGLOBIN 27.2 PG (27.0-34.0); MEAN CORPUSCULAR HGB CONC 32.6 % (32.0-36.0); PLATELET COUNT 176 TH/MM3 (150-450); RED BLOOD COUNT 3.71 MIL/MM3 (4.00-5.30); RED CELL DISTRIBUTION WIDTH 16.6 % (11.6-17.2); WHITE BLOOD COUNT 9.4 TH/MM3 (4.0-11.0)
[2016-07-23 08:47] LABS: INTERNATIONAL NORMALIZED RATIO 0.9 RATIO; PROTHROMBIN TIME - PATIENT 9.9 SEC (9.8-11.6)
[2016-07-23 08:48] LABS: HEMO FLAGS AUTO DIFF
[2016-07-23 09:14] LABS: BANDS 3 % (0-6); EOSINOPHILS 2 % (0-4); NEUTROPHIL # MANUAL DIFF 7.8 TH/MM3 (1.8-7.7); POLYS (SEG NEUTROPHILS) 80 % (16-70); WBC DIFF SAMPLE 100
[2016-07-23 09:15] LABS: TARGET CELLS 3+ (NORMAL)
[2016-07-23 09:16] LABS: HOWELL-JOLLY BODIES PRESENT (NONE SEEN); PLATELET ESTIMATE SMEAR NORMAL (NORMAL); PLATELET MORPHOLOGY ENLARGED (NORMAL); SCAN/DIFF FINAL DIFF MANUAL
--- NOTE | 2016-07-23 13:18 | RADRPT ---
EXAM DATE/TIME: 07/23/2016 12:01 [place] COMPARISON: MRCP W/O CONTRAST, December 24, 2012, 15:55. MRCP W/O CONTRAST, November 25, 2012, 9:57. MRCP W/O CONTRAS T, March 16, 2016, 9:54. CT ABDOMEN & PELVIS W CONTRAST, November 10, 2012, 23:17. MRCP W/O CONTRAST, September 08, 2014, 17:18. CT ABDOMEN & PELVIS W CONTRAST, July 19, 2016, 16:00. MRCP W/O CONTRAST, D ec2015, 18:24. INDICATIONS : Abdominal pain. MEDICAL HISTORY : Lymphoma. SURGICAL HISTORY : Splenectomy. LIVER BIOPSY ENCOUNTER: Subsequent ACUITY: 4-6 days PAIN SCORE: 3/10 LOCATION: upper quadrant ABDOMEN TECHNIQUE: Multiplanar, multisequence magnetic resonance imaging of the abdomen was performed. High-resolution 3D dataset was utilized to reconstruct maximum-intensity projection (MIP) images. FINDINGS: INTRAHEPATIC BILE DUCTS: The left intrahepatic bile ducts are mildly dilated measuring up to 4-5 mm in diameter. There is abru pt caliber change in the region of the ankit hepatis. Right intrahepatic bile ducts are nondilated. T his appearance was similar to the August 2014 examination. EXTRAHEPATIC BILE DUCTS: The common bile duct is normal in size and measures between 3 and 4 mm throughout. No filling defect is visualized. GALLBLADDER: Decompressed with severe wall edema. No stones are visualized. LIVER: The liver measures 15.7 cm in length. No fat or iron deposition is appreciated. However, there is a n odular contour with right lobe atrophy diagnostic of cirrhosis. There is a 7 mm cyst in the right lob e but no solid-appearing lesion is seen on this noncontrast exam. PANCREAS: The main pancreatic duct within the tail is dilated measuring between 6 and 7 mm in diameter. There a re associated dilated sidebranches. There is an abrupt caliber change in the mid body of the pancreas . The duct in the head and uncinate process is normal. This finding has been present on multiple prio r studies dating back to 2014. No mass is appreciated. OTHER: There are small bilateral pleural effusions. There is a small to moderate volume of free fluid within the abdomen and pelvis. The spleen is absent. There is a clip in the left upper quadrant. CONCLUSION: 1. Abnormally dilated left intrahepatic bile ducts with caliber change near the ankit hepatis at the confluence. No mass is appreciated in this area on this examination or the recent CT of the abdomen. Therefore, etiology is nonspecific. Stricture or small mass are the differential diagnostic considera tions. These ducts have a similar appearance on the August 2014 examination. Suggest correlation with the clinical history. 2. Normal right intrahepatic bile ducts and common bile duct. Gallbladder is decompressed but demonst rates severe diffuse wall edema which may be related to the portal hypertension and chronic liver dis ease. 3. Abnormally dilated main pancreatic duct in the tail with associated dilated sidebranches. There is abrupt caliber change in the mid body. The appearance is similar to multiple prior studies dating ba ck to 2014. I do not see a mass as the cause and since there has been no significant change this may be related to a stricture. Segmental IPMN is also a consideration but felt less likely. Suggest atten tion to this at followup imaging to confirm stability. 4. The liver demonstrates features diagnostic of cirrhosis. There is a moderate volume of free fluid within the abdomen and pelvis likely related to portal hypertension. There are also small bilateral p leural effusions. Mele Yoo MD on July 23, 2016 at 13:00 Board Certified Radiologist. This report was verified electronically.
[2016-07-23 17:21] LABS: ANION GAP 8 MEQ/L (5-15); AST (GOT) 89 U/L (15-37); BICARBONATE 27.7 MEQ/L (21.0-32.0); BLOOD UREA NITROGEN 7 MG/DL (7-18); CHLORIDE 103 MEQ/L (98-107); GLOMERULAR FILTRATION RATE 188 ML/MIN (>89); MAGNESIUM 1.6 MG/DL (1.5-2.5); POTASSIUM 3.4 MEQ/L (3.5-5.1); SODIUM (NA) 139 MEQ/L (136-145)
[2016-07-23 17:35] LABS: ALKALINE PHOSPHATASE 996 U/L (45-117); ALT (GPT) 90 U/L (10-53); TOTAL BILIRUBIN ADULT 6.4 MG/DL (0.2-1.0)
--- NOTE | 2016-07-23 20:19 | HHI.GIFU ---
Subjective Remarks feels about the same, slight improvement of the abdominal pain, no fever. still jaundice Objective Vitals I&O Vital Signs Date Time Temp Pulse Resp B/P Pulse Ox O2 Delivery O2 Flow Rate FiO2 07/23/16 19:09 18 07/23/16 18:00 78 07/23/16 16:00 98.9 79 18 125/82 98 07/23/16 16:00 79 07/23/16 14:00 79 07/23/16 12:00 79 07/23/16 12:00 98.9 79 18 125/82 98 07/23/16 10:00 79 07/23/16 08:00 98.4 79 16 124/83 96 07/23/16 08:00 79 07/23/16 06:00 79 07/23/16 04:00 98.9 81 10 123/77 96 07/23/16 04:00 81 07/23/16 02:00 80 07/23/16 00:00 98.4 79 14 119/74 94 07/23/16 00:00 79 07/22/16 22:00 89 I/O 07/22/16 07/22/16 07/22/16 07/23/16 07/23/16 07/23/16 07:00 15:00 23:00 07:00 15:00 23:00 Intake Total 230 ml 741 ml 400 ml 454 ml 200 ml Output Total 275 ml 400 ml 1000 ml 650 ml 500 ml Balance -45 ml 341 ml -600 ml -196 ml -300 ml Intake Oral 240 ml 0 ml IV Total 230 ml 501 ml 400 ml 454 ml 200 ml Output Urine Total 275 ml 400 ml 1000 ml 650 ml 500 ml # Bowel Movements 0 0 Laboratory Laboratory Tests Test 07/22/16 07/23/16 07/23/16 23:40 06:00 16:40 Potassium Level 3.4 3.4 Phosphorus Level 2.1 2.3 Magnesium Level 1.5 1.6 White Blood Count 9.4 Red Blood Count 3.71 Hemoglobin 10.1 Hematocrit 31.0 Mean Corpuscular Volume 83.5 Mean Corpuscular Hemoglobin 27.2 Mean Corpuscular Hemoglobin 32.6 Concent Red Cell Distribution Width 16.6 Platelet Count 176 Mean Platelet Volume 12.1 Neutrophils (%) (Auto) Lymphocytes (%) (Auto) Monocytes (%) (Auto) Eosinophils (%) (Auto) Basophils (%) (Auto) Neutrophils # (Auto) Lymphocytes # (Auto) Monocytes # (Auto) Eosinophils # (Auto) Basophils # (Auto) CBC Comment AUTO DIFF Differential Total Cells 100 Counted Neutrophils % (Manual) 80 Band Neutrophils % 3 Lymphocytes % 5 Monocytes % 10 Eosinophils % 2 Neutrophils # (Manual) 7.8 Differential Comment FINAL DIFF MANUAL Platelet Estimate NORMAL Platelet Morphology Comment ENLARGED Target Cells 3+ Kelly-Bock Bodies PRESENT Prothrombin Time 9.9 Prothromb Time International 0.9 Ratio Sodium Level 139 Chloride Level 103 Carbon Dioxide Level 27.7 Anion Gap 8 Blood Urea Nitrogen 7 Creatinine 0.37 Estimat Glomerular Filtration 188 Rate Random Glucose 176 Calcium Level 7.9 Total Bilirubin 6.4 Aspartate Amino Transf 89 (AST/SGOT) Alanine Aminotransferase 90 (ALT/SGPT) Alkaline Phosphatase 996 Total Protein 5.5 Albumin 2.1 Date/Time Procedure Status Source Growth 07/21/16 08:52 Aerobic Blood Culture - Preliminary Resulted Blood Peripheral NO GROWTH IN 2 DAYS 07/21/16 08:52 Anaerobic Blood Culture - Preliminary Resulted Blood Peripheral NO GROWTH IN 2 DAYS 07/20/16 01:00 Urine Culture - Final Complete Urine Clean Catch NO GROWTH IN 48 HOURS. 07/19/16 12:40 Influenza Types A,B Antigen ([facility]) - Final Complete Nasal Washing NEGATIVE FOR FLU A AND B ANTIGEN.... 07/19/16 12:10 Aerobic Blood Culture - Final Complete Blood Peripheral Klebsiella Pneumoniae 07/19/16 12:10 Anaerobic Blood Culture - Final Complete Klebsiella Pneumoniae Physical Exam HEENT: Normocephalic; atraumatic CHEST: CTA CARDIAC: RRR ABDOMEN: Soft, nondistended, diffuse tenderness-moderate; no hepatosplenomegaly ; bowel sounds are present in all four quadrants. EXTREMITIES: No clubbing, cyanosis, or edema. SKIN: Normal; no rash; + jaundice. DEVELOPER SUPPORT ENGINEER: No focal deficits; alert and oriented times three. Assessment and Plan Plan ASSESSMENT: - Sclerosing Cholangitis/Biliary Strictures with sepsis/fever, N/V/Abdominal pain. She is currently following with [facility]. Last ERCP (04/27/16)---> primary sclerosing cholangitis, dominant stricture right intrahepatic duct, periampullary diverticulum. During that admission, IR was consulted for possible PTHC, but they did not feel that this could be done and therefore it was cancelled. Abnormal imaging of the gallbladder. Abdomen/Pelvis CT (07/19/16)---- > Continued cirrhotic appearance of the liver. Some areas of scarring or volume loss throughout the right lobe similar to the previous study. No definite solid mass is seen. Status post splenectomy. No significant retroperitoneal adenopathy. She currently has bacteremia with Klebsiella, GNR, Elevated LFTs above her baseline (T. Bilirubin, usually runs 1.5-2.5, now with LFTs above baseline and trending up 5.2, AST 141, ALT 113, Alk Phosph 859. ID is following and she is getting Zosyn. Plan for ERCP to evaluate for possible biliary obstruction especially noting that her bilirubin is way above its baseline level and now with sepsis we need to rule obstruction out. - Sepsis, Bacteremia, Fevers, Leukocytosis. BCx with Klebsiella, GNR. ID following, On Zosyn. WBC 9.9. Afebrile. - Liver cirrhosis. S/P liver biopsy at that time of both her normal liver parenchyma and her liver mass. The normal liver parenchyma revealed chronic hepatitis with bridging fibrosis and cirrhosis grade 2/4, stage 3-4/4 exhibiting bile duct tubular damage and ductopenia. The liver mass suggested chronic hepatitis with bridging fibrosis 2/4, stage III/4. She was evaluated by [facility], but states she was told that her MELD score was too low to be considered for liver transplant. Pt was reportedly not considered a liver transplant candidate due to recurrent lymphoma. - Hx of abnormal imaging of the gallbladder. HIDA (04/27/16)----> Nonvisualization of the gallbladder. ADDENDUM: Delayed imaging of the abdomen documents an ovoid area of activity in the right upper quadrant in the expected location of the gallbladder based on prior cross-sectional imaging studies. Delayed visualization the gallbladder should exclude complete cystic duct obstruction. However, based on prior imaging studies, the gallbladder demonstrated severe diffuse wall edema. S/P GS evaluation during last admission who did not feel this was contributing to her symptoms and did not recommend cholecystectomy. - Hx of non-Hodgkin's lymphoma and completed chemotherapy in 2005, but has had an ongoing problem with biliary strictures and sclerosing cholangitis. 2--17, [facility], being FU by [facility], WBC is improving, she had many previous evaluations of her biliary tree and few ERCPs last one was 2.5 months ago it did not show any structure, I repeated MRCP and had Dr. Pacheco review this study and compare it the previous studies, he did not feel that there is significant changes, his feeling that ERCP will not help since it does not seem to be a stricture in the main CBD or CHD. because of that, I will not do the ERCP, we will continue the ABx and feed patient slowly. if LFTs continue to be elevated we may consider transfer to [facility] since they they are familiar with her for further management but know seems to be doing better and WBC is improving Plan: - clear liquid advance as tolerated - continue PPI - continue ABx - CBC, CMP in am - Supportive care Armani Batista MD Jul 23, 2016 20:19
[2016-07-24] VITALS (12 sets, daily range): BP systolic 109–125; BP diastolic 73–79; PULSE 75–105; RESP 18–23; TEMP 97.7–99.8; O2SAT 94–96
[2016-07-24] MEDS: PIPERACIL-TAZO 4.5 GM PREMIX 100 ML IV SCH ×3 (02:51→13:57)
[2016-07-24] MEDS: INSULIN NovoLIN REGULAR SUPPLEMENTAL SCALE SQ SCH ×4 (02:52→23:44)
[2016-07-24] MEDS: HYDROmorphone HCL PF 1 MG/ML VIAL IV PRN ×7 (02:52→23:43)
[2016-07-24] MEDS: CHLORHEXIDINE GLUCONATE 2 % 1 PACK (2 CLOTHS) TOP SCH (04:00)
[2016-07-24] MEDS: PANTOPRAZOLE SODIUM 40 MG VIAL IV SCH (07:34)
[2016-07-24 09:24] LABS: HEMATOCRIT 31.9 % (35.0-46.0); MEAN CELL VOLUME 83.5 FL (80.0-100.0); MEAN CORPUSCULAR HEMOGLOBIN 27.1 PG (27.0-34.0); MEAN CORPUSCULAR HGB CONC 32.5 % (32.0-36.0); PLATELET COUNT 228 TH/MM3 (150-450); RED BLOOD COUNT 3.81 MIL/MM3 (4.00-5.30); RED CELL DISTRIBUTION WIDTH 17.2 % (11.6-17.2); WHITE BLOOD COUNT 11.4 TH/MM3 (4.0-11.0)
[2016-07-24 09:28] LABS: HEMO FLAGS AUTO DIFF
[2016-07-24 09:39] LABS: ALT (GPT) 80 U/L (10-53); ANION GAP 11 MEQ/L (5-15); AST (GOT) 76 U/L (15-37); BICARBONATE 26.1 MEQ/L (21.0-32.0); BLOOD UREA NITROGEN 7 MG/DL (7-18); CHLORIDE 101 MEQ/L (98-107); GLOMERULAR FILTRATION RATE 194 ML/MIN (>89); MAGNESIUM 1.7 MG/DL (1.5-2.5); POTASSIUM 3.5 MEQ/L (3.5-5.1); SODIUM (NA) 138 MEQ/L (136-145)
--- NOTE | 2016-07-24 09:40 | HHI.GIFU ---
Subjective Remarks Resting in bed. Continues to have abdominal pain. Controlled with pain meds. Low-grade fevers. (Aliyah Mosher) Objective Vitals I&O Vital Signs Date Time Temp Pulse Resp B/P Pulse Ox O2 Delivery O2 Flow Rate FiO2 07/24/16 08:00 90 07/24/16 08:00 97.7 90 23 125/77 94 07/24/16 06:00 76 07/24/16 04:00 75 07/24/16 04:00 98.5 75 22 125/73 94 07/24/16 02:00 76 07/24/16 00:00 89 07/24/16 00:00 99.1 89 22 118/73 94 07/23/16 22:00 86 07/23/16 20:00 99.3 96 14 137/86 98 07/23/16 20:00 96 07/23/16 19:09 18 07/23/16 18:00 78 07/23/16 16:00 98.9 79 18 125/82 98 07/23/16 16:00 79 07/23/16 14:00 79 07/23/16 12:00 79 07/23/16 12:00 98.9 79 18 125/82 98 07/23/16 10:00 79 I/O 07/23/16 07/23/16 07/23/16 07/24/16 07/24/16 07/24/16 07:00 15:00 23:00 07:00 15:00 23:00 Intake Total 454 ml 200 ml 100 ml 450 ml Output Total 650 ml 500 ml 1050 ml 850 ml Balance -196 ml -300 ml -950 ml -400 ml Intake Oral 0 ml IV Total 454 ml 200 ml 100 ml 450 ml Output Urine Total 650 ml 500 ml 1050 ml 850 ml # Bowel Movements 0 Laboratory Laboratory Tests Test 07/23/16 16:40 Sodium Level 139 Potassium Level 3.4 Chloride Level 103 Carbon Dioxide Level 27.7 Anion Gap 8 Blood Urea Nitrogen 7 Creatinine 0.37 Estimat Glomerular Filtration 188 Rate Random Glucose 176 Calcium Level 7.9 Phosphorus Level 2.3 Magnesium Level 1.6 Total Bilirubin 6.4 Aspartate Amino Transf 89 (AST/SGOT) Alanine Aminotransferase 90 (ALT/SGPT) Alkaline Phosphatase 996 Total Protein 5.5 Albumin 2.1 Date/Time Procedure Status Source Growth 07/21/16 08:52 Aerobic Blood Culture - Preliminary Resulted Blood Peripheral NO GROWTH IN 2 DAYS 07/21/16 08:52 Anaerobic Blood Culture - Preliminary Resulted Blood Peripheral NO GROWTH IN 2 DAYS 07/20/16 01:00 Urine Culture - Final Complete Urine Clean Catch NO GROWTH IN 48 HOURS. 07/19/16 12:40 Influenza Types A,B Antigen ([facility]) - Final Complete Nasal Washing NEGATIVE FOR FLU A AND B ANTIGEN.... 07/19/16 12:10 Aerobic Blood Culture - Final Complete Blood Peripheral Klebsiella Pneumoniae 07/19/16 12:10 Anaerobic Blood Culture - Final Complete Klebsiella Pneumoniae Imaging Last Impressions Cholangiopancreatography MRI 07/23/16 0000 Signed Impressions: Service Date/Time: Saturday, July 23, 2016 12:01 - CONCLUSION: 1. Abnormally dilated left intrahepatic bile ducts with caliber change near the ankit hepatis at the confluence. No mass is appreciated in this area on this examination or the recent CT of the abdomen. Therefore, etiology is nonspecific. Stricture or small mass are the differential diagnostic considerations. These ducts have a similar appearance on the August 2014 examination. Suggest correlation with the clinical history. 2. Normal right intrahepatic bile ducts and common bile duct. Gallbladder is decompressed but demonstrates severe diffuse wall edema which may be related to the portal hypertension and chronic liver disease. 3. Abnormally dilated main pancreatic duct in the tail with associated dilated sidebranches. There is abrupt caliber change in the mid body. The appearance is similar to multiple prior studies dating back to 2014. I do not see a mass as the cause and since there has been no significant change this may be related to a stricture. Segmental IPMN is also a consideration but felt less likely. Suggest attention to this at followup imaging to confirm stability. 4. The liver demonstrates features diagnostic of cirrhosis. There is a moderate volume of free fluid within the abdomen and pelvis likely related to portal hypertension. There are also small bilateral pleural effusions. Mele Yoo MD Chest X-Ray 07/19/16 1141 Signed Impressions: Service Date/Time: July 12:25 - CONCLUSION: 1. No acute cardiopulmonary findings. Farzad Morales MD Head CT 07/19/16 0000 Signed Impressions: Service Date/Time: July 16:01 - CONCLUSION: 1. No evidence of acute intracranial pathology. No masses are identified. Nestor Isabel MD Abdomen/Pelvis CT 07/19/16 0000 Signed Impressions: Service Date/Time: July 16:00 - CONCLUSION: Continued cirrhotic appearance of the liver. Some areas of scarring or volume loss throughout the right lobe similar to the previous study. No definite solid mass is seen. Status post splenectomy. No significant retroperitoneal adenopathy. Fadi Deng MD Physical Exam HEENT: Normocephalic; atraumatic CHEST: CTA CARDIAC: RRR ABDOMEN: Soft, nondistended, diffuse tenderness-moderate; no hepatosplenomegaly ; bowel sounds are present in all four quadrants. EXTREMITIES: No clubbing, cyanosis, or edema. SKIN: Normal; no rash; + jaundice. COFFEE ATTENDANT: No focal deficits; alert and oriented times three. (Aliyah Mosher) Assessment and Plan Plan ASSESSMENT: - Sclerosing Cholangitis/Biliary Strictures with sepsis/fever, N/V/Abdominal pain. She is currently following with [facility]. Last ERCP (04/27/16)---> primary sclerosing cholangitis, dominant stricture right intrahepatic duct, periampullary diverticulum. During that admission, IR was consulted for possible PTHC, but they did not feel that this could be done and therefore it was cancelled. Abnormal imaging of the gallbladder. Abdomen/Pelvis CT (07/19/16)----> Continued cirrhotic appearance of the liver. Some areas of scarring or volume loss throughout the right lobe similar to the previous study. No definite solid mass is seen. Status post splenectomy. No significant retroperitoneal adenopathy. MRCP (07/23/16)----> 1. Abnormally dilated left intrahepatic bile ducts with caliber change near the ankit hepatis at the confluence. No mass is appreciated in this area on this examination or the recent CT of the abdomen. Therefore, etiology is nonspecific. Stricture or small mass are the differential diagnostic considerations. These ducts have a similar appearance on the August 2014 examination. Suggest correlation with the clinical history. 2. Normal right intrahepatic bile ducts and common bile duct. Gallbladder is decompressed but demonstrates severe diffuse wall edema which may be related to the portal hypertension and chronic liver disease. 3. Abnormally dilated main pancreatic duct in the tail with associated dilated side branches. There is abrupt caliber change in the mid body. The appearance is similar to multiple prior studies dating back to 2015. I do not see a mass as the cause and since there has been no significant change this may be related to a stricture. Segmental IPMN is also a consideration but felt less likely. Suggest attention to this at followup imaging to confirm stability. 4. The liver demonstrates features diagnostic of cirrhosis. There is a moderate volume of free fluid within the abdomen and pelvis likely related to portal hypertension. There are also small bilateral pleural effusions. Bacteremia with Klebsiella, GNR. Rpt Cx with no growth in 2 days. Elevated LFTs above her baseline (T. Bilirubin , usually runs 1.5-2.5, now with LFTs above baseline and trending up- yesterday was 5.2, AST 141, ALT 113, Alk Phosph 859, but today's are pending ID is following and she is getting Zosyn. - Sepsis, Bacteremia, Fevers, Leukocytosis. BCx with Klebsiella, GNR. ID following, On Zosyn. Low grade fever. - Liver cirrhosis. S/P liver biopsy at that time of both her normal liver parenchyma and her liver mass. The normal liver parenchyma revealed chronic hepatitis with bridging fibrosis and cirrhosis grade 2/4, stage 3-4/4 exhibiting bile duct tubular damage and ductopenia. The liver mass suggested chronic hepatitis with bridging fibrosis 2/4, stage III/4. She was evaluated by [facility], but states she was told that her MELD score was too low to be considered for liver transplant. Pt was reportedly not considered a liver transplant candidate due to recurrent lymphoma. - Hx of abnormal imaging of the gallbladder. HIDA (04/27/16)----> Nonvisualization of the gallbladder. ADDENDUM: Delayed imaging of the abdomen documents an ovoid area of activity in the right upper quadrant in the expected location of the gallbladder based on prior cross-sectional imaging studies. Delayed visualization the gallbladder should exclude complete cystic duct obstruction. However, based on prior imaging studies, the gallbladder demonstrated severe diffuse wall edema. S/P GS evaluation during last admission who did not feel this was contributing to her symptoms and did not recommend cholecystectomy. - Hx of non-Hodgkin's lymphoma and completed chemotherapy in 2005, but has had an ongoing problem with biliary strictures and sclerosing cholangitis. 2-6-17, PSC, being FU by [facility], WBC is improving, she had many previous evaluations of her biliary tree and few ERCPs last one was 2.5 months ago it did not show any structure, I repeated MRCP and had Dr. Pacheco review this study and compare it the previous studies, he did not feel that there is significant changes, his feeling that ERCP will not help since it does not seem to be a stricture in the main CBD or CHD. because of that, I will not do the ERCP, we will continue the ABx and feed patient slowly. if LFTs continue to be elevated we may consider transfer to [facility] since they they are familiar with her for further management but know seems to be doing better and WBC is improving Plan: - Full liquids, advance as tolerated - Cont. PPI - Cont. Abx - Await today's labs - Supportive care - If pt has persistent or worsening LFTs, then consider transfer to [facility] - Pt seen and examined by Dr. Batista and myself and this note is written on his behalf ADDENDUM: Today's LFTs T. Bili 7.6, AST 76, ALT 80, Alk Phosph 1113. Will consult CM for tx to [facility]. (Aliyah Mosher) Physician Comments patient was seen and examined, agree with above note, I had a discussion with patient about doing ERCP and possible liver Bx, before [facility], she stated that she want to wait to see if she get transferred in next 1-2 days then she will wait to have the procedures done there, if not she will consider that, I explained to her that her LFTs ids going up and that we will recheck it in am to see how it is doing. (Armani Batista MD) Aliyah Mosher Jul 24, 2016 09:40 Armani Batista MD Jul 24, 2016 19:50
[2016-07-24 09:54] LABS: ALKALINE PHOSPHATASE 1113 U/L (45-117); TOTAL BILIRUBIN ADULT 7.6 MG/DL (0.2-1.0)
[2016-07-24 10:06] LABS: BANDS 14 % (0-6); CORRECTED NUCLEATED RBC 1 /100 WBC (0-0); EOSINOPHILS 1 % (0-4); NEUTROPHIL # MANUAL DIFF 9.3 TH/MM3 (1.8-7.7); POLYS (SEG NEUTROPHILS) 68 % (16-70); WBC DIFF SAMPLE 100
[2016-07-24 10:07] LABS: PLATELET ESTIMATE SMEAR NORMAL (NORMAL); PLATELET MORPHOLOGY ENLARGED (NORMAL); SCAN/DIFF FINAL DIFF MANUAL; TARGET CELLS 2+ (NORMAL)
[2016-07-24] MEDS: POTASSIUM PHOSPHATE INJ 30 MMOL in SODIUM CHLOR 0.9% 250 ML INJ 250 ML IV PRN (11:28)
--- NOTE | 2016-07-24 16:28 | HHI.PR ---
Subjective Remarks Patient resting in bed He asked about the plan today, I informed him that his alkaline phosphatase increase but liver enzyme did not I told him I will discuss with GI for possible transfer to [facility] He is afebrile today Objective Vitals Vital Signs Date Time Temp Pulse Resp B/P Pulse Ox O2 Delivery O2 Flow Rate FiO2 07/24/16 14:00 93 07/24/16 12:00 97.8 87 21 115/74 95 07/24/16 12:00 87 07/24/16 10:00 92 07/24/16 08:00 90 07/24/16 08:00 97.7 90 23 125/77 94 07/24/16 06:00 76 07/24/16 04:00 75 07/24/16 04:00 98.5 75 22 125/73 94 07/24/16 02:00 76 07/24/16 00:00 89 07/24/16 00:00 99.1 89 22 118/73 94 07/23/16 22:00 86 07/23/16 20:00 99.3 96 14 137/86 98 07/23/16 20:00 96 07/23/16 19:09 18 07/23/16 18:00 78 I/O 07/23/16 07/23/16 07/23/16 07/24/16 07/24/16 07/24/16 07:00 15:00 23:00 07:00 15:00 23:00 Intake Total 454 ml 200 ml 100 ml 450 ml 208 ml Output Total 650 ml 500 ml 1050 ml 850 ml 350 ml Balance -196 ml -300 ml -950 ml -400 ml -142 ml Intake Oral 0 ml IV Total 454 ml 200 ml 100 ml 450 ml 208 ml Output Urine Total 650 ml 500 ml 1050 ml 850 ml 350 ml # Bowel Movements 0 0 Result Diagram: 07/24/1616 07/24/16815 Objective Remarks GENERAL: 46 years old female in no acute distress SKIN: Warm and dry. HEAD: Normocephalic. EYES: No scleral icterus. No injection or drainage. NECK: Supple, trachea midline. No JVD or lymphadenopathy. CARDIOVASCULAR: Regular rate and rhythm without murmurs, gallops, or rubs. RESPIRATORY: Breath sounds equal bilaterally. No accessory muscle use. GASTROINTESTINAL: Abdomen soft, nondistended. Mild tenderness on palpation. MUSCULOSKELETAL: No cyanosis, or edema. A/P Assessment and Plan 07/24/16:Alkaline phosphatase increase to 1113, bilirubin 7.6, ALT/AST 76/80, discussed with GI REHABILITATION CASE COORDINATOR, most likely plan to transfer to [facility], she will discuss with attending, cyanide case hardener will work on the transfer A/P: - s/p Septic shock. -Gram negative bacteremia( Kleb pneumonia) - Abdominal pain, ? acute cholangitis. - Lactic acidemia..resolved - Mild acute kidney injury. - Elevated liver enzymes with hyperbilirubinemia. - History of primary sclerosing cholangitis and strictures. - Leukocytosis with bandemia. - Hyperglycemia with underlying history of diabetes mellitus. - History of non-Hodgkin's lymphoma status post chemo 10 years ago. - Chronic abdominal pain. - Coagulopathy likely 2md liver disease Plan: Monitor neuro status closely and avoid any sedatives. CT brain: No acute process Continue with oxygen and maintain sats above 92%. Bronchodilators Monitor HR and BP maintain MAP >65 mmHg. Lactic acid resolved Monitor renal function, Is and Os and electrolyte replacement per protocol. on Albumin 25gms Q8. On full liquid diet. on Protonix 40 mg IV daily for GI prophylaxis. GI is following for ERCP today CT abdomen/pelvis: No masses, cirrhotic appearance of liver Continue with abx per ID(Zosyn) monitor for signs of infections(fever and WBC) . CXR in the ED negative for acute disease. Nasal washing negative for influenza. BC 07/19 Kleb pneumonia, GNR, follow up on BC from 07/21..NGTD Monitor CBC and coags. s/p transfusion 3 u FFP and Vitamin K 10mg IV x1 on 07/20 for INR 11 now INR 1.0 On Vitamin K 10mg daily per GI On medium SSI with Accu-Cheks q.6 hours for glycemic control. GI prophylaxis with Protonix 40 mg daily and DVT prophylaxis with SCDs only Lines: Right subclavian CVP placed 07/19 Elizabeth Mac MD Jul 24, 2016 16:28
[2016-07-24] MEDS ORDERED: MIDAZOLAM HCL 5 MG/ML VIAL (1 ML) ONE (18:34)
[2016-07-24] MEDS ORDERED: SODIUM CHLOR 0.9% 250 ML INJ 250 ML ONE (18:48)
--- NOTE | 2016-07-24 19:50 | HHI.IDPN ---
Subjective Subjective Remarks delayed entry - pt was seen earlier today afebrile ERCP done ; result noted and dw GI still some RUQ pian Antibiotics zosyn Allergies: Coded Allergies: Gadolinium Derivatives (Verified Allergy, Severe, BREATHING PROBLEMS, N/V, CHILLS, 07/19/16) MRI PRECAUTION (Verified Allergy, Severe, NAUSEA; PER PATIENT IT IS A GADOLINIUM ALLERGY KMD 11/25/12, 07/19/16) Morphine (Verified Allergy, Severe, BREATHING PROBLEMS, 07/19/16) Toradol (Verified Allergy, Severe, Shortness of Breath, 07/19/16) *MDRO Multi-Drug Resistant Organism (Verified Adverse Reaction, Unknown, MRSA, 07/20/16) 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 Vital Signs Date Time Temp Pulse Resp B/P Pulse Ox O2 Delivery O2 Flow Rate FiO2 07/24/16 16:00 97 07/24/16 16:00 98.5 97 19 109/75 95 07/24/16 14:00 93 07/24/16 12:00 97.8 87 21 115/74 95 07/24/16 12:00 87 07/24/16 10:00 92 07/24/16 08:00 90 07/24/16 08:00 97.7 90 23 125/77 94 07/24/16 06:00 76 07/24/16 04:00 75 07/24/16 04:00 98.5 75 22 125/73 94 07/24/16 02:00 76 07/24/16 00:00 89 07/24/16 00:00 99.1 89 22 118/73 94 07/23/16 22:00 86 07/23/16 20:00 99.3 96 14 137/86 98 07/23/16 20:00 96 07/23/16 07/23/16 07/24/16 15:00 23:00 07:00 Intake Total 200 ml 100 ml 450 ml Output Total 500 ml 1050 ml 850 ml Balance -300 ml -950 ml -400 ml Intake Oral 0 ml IV Total 200 ml 100 ml 450 ml Output Urine Total 500 ml 1050 ml 850 ml # Bowel Movements 0 . Laboratory Tests Test 07/23/16 07/24/16 06:00 08:16 White Blood Count 9.4 TH/MM3 11.4 TH/MM3 Red Blood Count 3.71 MIL/MM3 3.81 MIL/MM3 Hemoglobin 10.1 GM/DL 10.3 GM/DL Hematocrit 31.0 % 31.9 % Mean Corpuscular Volume 83.5 FL 83.5 FL Mean Corpuscular Hemoglobin 27.2 PG 27.1 PG Mean Corpuscular Hemoglobin 32.6 % 32.5 % Concent Red Cell Distribution Width 16.6 % 17.2 % Platelet Count 176 TH/MM3 228 TH/MM3 Mean Platelet Volume 12.1 FL 12.0 FL Neutrophils (%) (Auto) % % Lymphocytes (%) (Auto) % % Monocytes (%) (Auto) % % Eosinophils (%) (Auto) % % Basophils (%) (Auto) % % Neutrophils # (Auto) TH/MM3 TH/MM3 Lymphocytes # (Auto) TH/MM3 TH/MM3 Monocytes # (Auto) TH/MM3 TH/MM3 Eosinophils # (Auto) TH/MM3 TH/MM3 Basophils # (Auto) TH/MM3 TH/MM3 CBC Comment AUTO DIFF AUTO DIFF Differential Total Cells 100 100 Counted Neutrophils % (Manual) 80 % 68 % Band Neutrophils % 3 % 14 % Lymphocytes % 5 % 10 % Monocytes % 10 % 7 % Eosinophils % 2 % 1 % Neutrophils # (Manual) 7.8 TH/MM3 9.3 TH/MM3 Differential Comment FINAL DIFF FINAL DIFF MANUAL MANUAL Platelet Estimate NORMAL NORMAL Platelet Morphology Comment ENLARGED ENLARGED Target Cells 3+ 2+ [place] Bodies PRESENT Nucleated Red Blood Cells 1 /100 WBC Laboratory Tests Test 07/22/16 07/23/16 07/24/16 23:40 16:40 08:16 Potassium Level 3.4 MEQ/L 3.4 MEQ/L 3.5 MEQ/L Phosphorus Level 2.1 MG/DL 2.3 MG/DL 2.3 MG/DL Magnesium Level 1.5 MG/DL 1.6 MG/DL 1.7 MG/DL Sodium Level 139 MEQ/L 138 MEQ/L Chloride Level 103 MEQ/L 101 MEQ/L Carbon Dioxide Level 27.7 MEQ/L 26.1 MEQ/L Anion Gap 8 MEQ/L 11 MEQ/L Blood Urea Nitrogen 7 MG/DL 7 MG/DL Creatinine 0.37 MG/DL 0.36 MG/DL Estimat Glomerular Filtration 188 ML/MIN 194 ML/MIN Rate Random Glucose 176 MG/DL 205 MG/DL Calcium Level 7.9 MG/DL 8.1 MG/DL Total Bilirubin 6.4 MG/DL 7.6 MG/DL Aspartate Amino Transf 89 U/L 76 U/L (AST/SGOT) Alanine Aminotransferase 90 U/L 80 U/L (ALT/SGPT) Alkaline Phosphatase 996 U/L 1113 U/L Total Protein 5.5 GM/DL 5.9 GM/DL Albumin 2.1 GM/DL 2.1 GM/DL Imaging Last Impressions Cholangiopancreatography MRI 07/23/16 0000 Signed Impressions: Service Date/Time: Saturday, July 23, 2016 12:01 - CONCLUSION: 1. Abnormally dilated left intrahepatic bile ducts with caliber change near the ankit hepatis at the confluence. No mass is appreciated in this area on this examination or the recent CT of the abdomen. Therefore, etiology is nonspecific. Stricture or small mass are the differential diagnostic considerations. These ducts have a similar appearance on the August 2014 examination. Suggest correlation with the clinical history. 2. Normal right intrahepatic bile ducts and common bile duct. Gallbladder is decompressed but demonstrates severe diffuse wall edema which may be related to the portal hypertension and chronic liver disease. 3. Abnormally dilated main pancreatic duct in the tail with associated dilated sidebranches. There is abrupt caliber change in the mid body. The appearance is similar to multiple prior studies dating back to 2014. I do not see a mass as the cause and since there has been no significant change this may be related to a stricture. Segmental IPMN is also a consideration but felt less likely. Suggest attention to this at followup imaging to confirm stability. 4. The liver demonstrates features diagnostic of cirrhosis. There is a moderate volume of free fluid within the abdomen and pelvis likely related to portal hypertension. There are also small bilateral pleural effusions. Mele Yoo MD Chest X-Ray 07/19/16 1141 Signed Impressions: Service Date/Time: July 12:25 - CONCLUSION: 1. No acute cardiopulmonary findings. Farzad Morales MD Head CT 07/19/16 0000 Signed Impressions: Service Date/Time: July 16:01 - CONCLUSION: 1. No evidence of acute intracranial pathology. No masses are identified. Nestor Isabel MD Abdomen/Pelvis CT 07/19/16 0000 Signed Impressions: Service Date/Time: July 16:00 - CONCLUSION: Continued cirrhotic appearance of the liver. Some areas of scarring or volume loss throughout the right lobe similar to the previous study. No definite solid mass is seen. Status post splenectomy. No significant retroperitoneal adenopathy. Fadi Deng MD Physical Exam CONSTITUTIONAL/GENERAL: This is a thin chronically ill appearing patient, in no apparent distress. SKIN: no jaundice, rashes, or lesions. . Skin temperature appropriate. Not diaphoretic. EYES: Pupils equal and round and reactive. Extraocular motions intact. minimal scleral icterus. No injection or drainage. Fundi not examined. CARDIOVASCULAR: Regular rate and rhythm without murmurs, gallops, or rubs. No JVD. Peripheral pulses symmetric. RESPIRATORY/CHEST: Symmetric, unlabored respirations. Clear to auscultation. Breath sounds equal bilaterally. No wheezes, rales, or rhonchi. GASTROINTESTINAL: Abdomen soft, marked RUQ tenderness w/o guarding or rebound , nondistended. + tender hepatomegaly, or palpable masses. No guarding. Bowel sounds present. MUSCULOSKELETAL: Extremities without clubbing, cyanosis, or edema. No joint tenderness or effusion noted. No calf tenderness. No mottling or clubbing. NEUROLOGICAL: Awake and alert. Motor and sensory grossly within normal limits. Follows commands. Normal speech. Moves all extremities. Assessment & Plan Remarks Sepsis, Kleb pneumo, biliary origin - improving clinically Cholangitis ERCP planned PSC underlysing macey Joelsyn - eventually will switch to po Augmentin Christiane Jackson MD Jul 24, 2016 19:50
[2016-07-24 23:28] LABS: POTASSIUM 3.9 MEQ/L (3.5-5.1)
[2016-07-25] VITALS (12 sets, daily range): BP systolic 107–129; BP diastolic 7–80; PULSE 80–100; RESP 15–31; TEMP 97.5–99.4; O2SAT 94–96
[2016-07-25] MEDS: HYDROmorphone HCL PF 1 MG/ML VIAL IV PRN ×7 (02:42→21:42)
[2016-07-25] MEDS: SODIUM PHOSPHATE INJ 30 MMOL in SODIUM CHLOR 0.9% 250 ML INJ 240 ML IV PRN (02:44)
[2016-07-25] MEDS: INSULIN NovoLIN REGULAR SUPPLEMENTAL SCALE SQ SCH ×4 (02:49→21:40)
[2016-07-25] MEDS: CHLORHEXIDINE GLUCONATE 2 % 1 PACK (2 CLOTHS) TOP SCH (02:49)
[2016-07-25 02:53] LABS: HEMATOCRIT 29.5 % (35.0-46.0); MEAN CELL VOLUME 83.2 FL (80.0-100.0); MEAN CORPUSCULAR HGB CONC 32.4 % (32.0-36.0); PLATELET COUNT 247 TH/MM3 (150-450); RED BLOOD COUNT 3.54 MIL/MM3 (4.00-5.30); RED CELL DISTRIBUTION WIDTH 16.9 % (11.6-17.2); WHITE BLOOD COUNT 8.9 TH/MM3 (4.0-11.0)
[2016-07-25 02:57] LABS: HEMO FLAGS AUTO DIFF
[2016-07-25 03:33] LABS: INDIRECT BILIRUBIN 1.5 MG/DL (0.0-0.8); TOTAL BILIRUBIN ADULT 5.5 MG/DL (0.2-1.0)
[2016-07-25] MEDS: AMPICILLIN-SULBACTAM INJ 3 GM in SODIUM CHLORIDE 0.9% INJ 100 ML IV SCH ×4 (04:49→20:18)
[2016-07-25 06:57] LABS: BANDS 5 % (0-6); EOSINOPHILS 1 % (0-4); METAMYELOCYTES 1 % (0-1); MYELOCYTES 1 % (0-0); NEUTROPHIL # MANUAL DIFF 6.9 TH/MM3 (1.8-7.7); POLYS (SEG NEUTROPHILS) 70 % (16-70); WBC DIFF SAMPLE 100
[2016-07-25 06:59] LABS: PLATELET ESTIMATE SMEAR NORMAL (NORMAL); TARGET CELLS 2+ (NORMAL)
[2016-07-25 07:00] LABS: HOWELL-JOLLY BODIES PRESENT (NONE SEEN); PLATELET MORPHOLOGY ENLARGED (NORMAL); SCAN/DIFF FINAL DIFF MANUAL
[2016-07-25] MEDS: PANTOPRAZOLE SODIUM 40 MG VIAL IV SCH (09:14)
--- NOTE | 2016-07-25 14:17 | HHI.GIFU ---
Subjective Remarks Resting in bed. Continues to have diffuse abdominal pain. Pain controlled with pain medications. Hungry and would like diet advanced Objective Vitals I&O Vital Signs Date Time Temp Pulse Resp B/P Pulse Ox O2 Delivery O2 Flow Rate FiO2 07/25/16 12:00 81 07/25/16 12:00 97.8 81 17 129/75 96 07/25/16 10:00 89 07/25/16 08:00 97.8 80 16 107/71 96 07/25/16 08:00 80 07/25/16 06:40 30 07/25/16 06:00 100 07/25/16 04:00 98.8 90 15 107/67 94 07/25/16 04:00 90 07/25/16 02:00 94 07/25/16 00:00 98.8 97 31 125/80 95 07/25/16 00:00 97 07/24/16 22:00 92 07/24/16 20:00 105 07/24/16 20:00 99.8 104 18 120/79 96 07/24/16 18:00 100 07/24/16 16:00 97 07/24/16 16:00 98.5 97 19 109/75 95 I/O 07/24/16 07/24/16 07/24/16 07/25/16 07/25/16 07/25/16 07:00 15:00 23:00 07:00 15:00 23:00 Intake Total 450 ml 208 ml 369 ml 243 ml Output Total 850 ml 350 ml 750 ml 200 ml Balance -400 ml -142 ml -381 ml 43 ml IV Total 450 ml 208 ml 369 ml 243 ml Output Urine Total 850 ml 350 ml 750 ml 200 ml # Voids 2 1 # Bowel Movements 0 Laboratory Laboratory Tests Test 07/24/16 07/25/16 22:00 02:10 Potassium Level 3.9 Phosphorus Level 1.8 White Blood Count 8.9 Red Blood Count 3.54 Hemoglobin 9.6 Hematocrit 29.5 Mean Corpuscular Volume 83.2 Mean Corpuscular Hemoglobin 27.0 Mean Corpuscular Hemoglobin 32.4 Concent Red Cell Distribution Width 16.9 Platelet Count 247 Mean Platelet Volume 11.3 Neutrophils (%) (Auto) Lymphocytes (%) (Auto) Monocytes (%) (Auto) Eosinophils (%) (Auto) Basophils (%) (Auto) Neutrophils # (Auto) Lymphocytes # (Auto) Monocytes # (Auto) Eosinophils # (Auto) Basophils # (Auto) CBC Comment AUTO DIFF Differential Total Cells 100 Counted Neutrophils % (Manual) 70 Band Neutrophils % 5 Lymphocytes % 6 Monocytes % 16 Eosinophils % 1 Neutrophils # (Manual) 6.9 Metamyelocytes 1 Myelocytes 1 Differential Comment FINAL DIFF MANUAL Platelet Estimate NORMAL Platelet Morphology Comment ENLARGED Target Cells 2+ Kelly-Ben Bolt Bodies PRESENT Total Bilirubin 5.5 Direct Bilirubin 4.0 Indirect Bilirubin 1.5 Gamma Glutamyl Transpeptidase 702 Aspartate Amino Transf 77 (AST/SGOT) Alanine Aminotransferase 78 (ALT/SGPT) Alkaline Phosphatase 1056 Total Protein 5.5 Albumin 2.1 Date/Time Procedure Status Source Growth 07/21/16 08:52 Aerobic Blood Culture - Preliminary Resulted Blood Peripheral NO GROWTH IN 4 DAYS 07/21/16 08:52 Anaerobic Blood Culture - Preliminary Resulted Blood Peripheral NO GROWTH IN 4 DAYS Imaging Last Impressions Cholangiopancreatography MRI 07/23/16 0000 Signed Impressions: Service Date/Time: Saturday, July 23, 2016 12:01 - CONCLUSION: 1. Abnormally dilated left intrahepatic bile ducts with caliber change near the ankit hepatis at the confluence. No mass is appreciated in this area on this examination or the recent CT of the abdomen. Therefore, etiology is nonspecific. Stricture or small mass are the differential diagnostic considerations. These ducts have a similar appearance on the August 2014 examination. Suggest correlation with the clinical history. 2. Normal right intrahepatic bile ducts and common bile duct. Gallbladder is decompressed but demonstrates severe diffuse wall edema which may be related to the portal hypertension and chronic liver disease. 3. Abnormally dilated main pancreatic duct in the tail with associated dilated sidebranches. There is abrupt caliber change in the mid body. The appearance is similar to multiple prior studies dating back to 2015. I do not see a mass as the cause and since there has been no significant change this may be related to a stricture. Segmental IPMN is also a consideration but felt less likely. Suggest attention to this at followup imaging to confirm stability. 4. The liver demonstrates features diagnostic of cirrhosis. There is a moderate volume of free fluid within the abdomen and pelvis likely related to portal hypertension. There are also small bilateral pleural effusions. Mele Yoo MD Chest X-Ray 07/19/16 1141 Signed Impressions: Service Date/Time: July 12:25 - CONCLUSION: 1. No acute cardiopulmonary findings. Farzad Morales MD Head CT 07/19/16 0000 Signed Impressions: Service Date/Time: July 16:01 - CONCLUSION: 1. No evidence of acute intracranial pathology. No masses are identified. Nestor Isabel MD Abdomen/Pelvis CT 07/19/16 0000 Signed Impressions: Service Date/Time: July 16:00 - CONCLUSION: Continued cirrhotic appearance of the liver. Some areas of scarring or volume loss throughout the right lobe similar to the previous study. No definite solid mass is seen. Status post splenectomy. No significant retroperitoneal adenopathy. Fadi Deng MD Physical Exam HEENT: Normocephalic; atraumatic CHEST: CTA CARDIAC: RRR ABDOMEN: Soft, nondistended, diffuse tenderness-moderate; no hepatosplenomegaly ; bowel sounds are present in all four quadrants. EXTREMITIES: No clubbing, cyanosis, or edema. SKIN: Normal; no rash; + jaundice. EMISSIONS TESTING AND REPAIR TECHNICIAN: No focal deficits; alert and oriented times three. Assessment and Plan Plan ASSESSMENT: - Sclerosing Cholangitis/Biliary Strictures with sepsis/fever, N/V/Abdominal pain. She is currently following with [facility]. Last ERCP (04/27/16)---> primary sclerosing cholangitis, dominant stricture right intrahepatic duct, periampullary diverticulum. During that admission, IR was consulted for possible PTHC, but they did not feel that this could be done and therefore it was cancelled. Abnormal imaging of the gallbladder. Abdomen/Pelvis CT (07/19/16)----> Continued cirrhotic appearance of the liver. Some areas of scarring or volume loss throughout the right lobe similar to the previous study. No definite solid mass is seen. Status post splenectomy. No significant retroperitoneal adenopathy. MRCP (07/23/16)----> 1. Abnormally dilated left intrahepatic bile ducts with caliber change near the ankit hepatis at the confluence. No mass is appreciated in this area on this examination or the recent CT of the abdomen. Therefore, etiology is nonspecific. Stricture or small mass are the differential diagnostic considerations. These ducts have a similar appearance on the August 2014 examination. Suggest correlation with the clinical history. 2. Normal right intrahepatic bile ducts and common bile duct. Gallbladder is decompressed but demonstrates severe diffuse wall edema which may be related to the portal hypertension and chronic liver disease. 3. Abnormally dilated main pancreatic duct in the tail with associated dilated side branches. There is abrupt caliber change in the mid body. The appearance is similar to multiple prior studies dating back to 2015. I do not see a mass as the cause and since there has been no significant change this may be related to a stricture. Segmental IPMN is also a consideration but felt less likely. Suggest attention to this at followup imaging to confirm stability. 4. The liver demonstrates features diagnostic of cirrhosis. There is a moderate volume of free fluid within the abdomen and pelvis likely related to portal hypertension. There are also small bilateral pleural effusions. Bacteremia with Klebsiella, GNR. Rpt Cx with no growth in 4 days. Elevated LFTs above her baseline (T. Bilirubin , usually runs 1.5-2.5). Her labs have improved today. T. BIli 5.5, AST 77, ALT 78, Alk Phosph 1056. ID following. Ampicillin. Will repeat LFT in am, if continues to trend down, will hold on ERCP. If they are not trending down , then we will consider ERCP. [facility] declined patient for transfer because they feel there is nothing they will do differently than we are doing here with regards to her care. - Sepsis, Bacteremia, Fevers, Leukocytosis. BCx with Klebsiella, GNR. ID following, On Zosyn. Low grade fever. - Liver cirrhosis. S/P liver biopsy (2013) at that time of both her normal liver parenchyma and her liver mass. The normal liver parenchyma revealed chronic hepatitis with bridging fibrosis and cirrhosis grade 2/4, stage 3-4/4 exhibiting bile duct tubular damage and ductopenia, chronic hepaititis with bridging fibrosis. Of note, specimen #1 suggested a differential diagnosis of primary biliary cirrhosis vs. drug induced disease. The histopathology did not suggest that of primary sclerosing cholangitis. The liver mass suggested chronic hepatitis with bridging fibrosis 2/4, stage III/4. Of note, she was evaluated by [facility], but states she was told that her MELD score was too low to be considered for liver transplant. Will repeat liver workup and will likely need repeat liver biopsy after these are resulted. - Hx of abnormal imaging of the gallbladder. HIDA (04/27/16)----> Nonvisualization of the gallbladder. ADDENDUM: Delayed imaging of the abdomen documents an ovoid area of activity in the right upper quadrant in the expected location of the gallbladder based on prior cross-sectional imaging studies. Delayed visualization the gallbladder should exclude complete cystic duct obstruction. However, based on prior imaging studies, the gallbladder demonstrated severe diffuse wall edema. S/P GS evaluation during last admission who did not feel this was contributing to her symptoms and did not recommend cholecystectomy. - Hx of non-Hodgkin's lymphoma and completed chemotherapy in 2005, but has had an ongoing problem with biliary strictures and sclerosing cholangitis. Plan: - Regular diet - NPO after MN - Rpt. Liver W/U- hepatitis, afp, marcello, asma, ama, ceruloplasmin, alpha 1 antitrypsin, ferritin, iron saturation. - LFT in am - Cont. PPI - Cont. Abx - Add Miralax 17 gram po daily - Supportive care - [facility] declined patient because they do not feel that they would do anything different with regards to her care - Consider repeat liver biopsy after rpt. liver workup - Consider paracentesis (diagnostic/therapeutic) at time of liver biopsy - If LFTs are not trending down tomorrow, will consider ERCP - Pt seen and examined by Dr. Batista and myself and this note is written on his behalf Aliyah Mosher Jul 25, 2016 14:17
[2016-07-25] MEDS: POLYETHYLENE GLYCOL 17 GM PKG PO SCH (15:00)
--- NOTE | 2016-07-25 16:55 | HHI.PR ---
Subjective Remarks Patient resting in bed stable and comfortable, however still have abdominal soreness especially with palpation, no nausea or vomiting Her LFT and alkaline phosphatase slightly dropped today, mostly the plan now is for ERCP per GI Objective Vitals Vital Signs Date Time Temp Pulse Resp B/P Pulse Ox O2 Delivery O2 Flow Rate FiO2 07/25/16 12:00 81 07/25/16 12:00 97.8 81 17 129/75 96 07/25/16 10:00 89 07/25/16 08:00 97.8 80 16 107/71 96 07/25/16 08:00 80 07/25/16 06:40 30 07/25/16 06:00 100 07/25/16 04:00 98.8 90 15 107/67 94 07/25/16 04:00 90 07/25/16 02:00 94 07/25/16 00:00 98.8 97 31 125/80 95 07/25/16 00:00 97 07/24/16 22:00 92 07/24/16 20:00 105 07/24/16 20:00 99.8 104 18 120/79 96 07/24/16 18:00 100 I/O 07/24/16 07/24/16 07/24/16 07/25/16 07/25/16 07/25/16 07:00 15:00 23:00 07:00 15:00 23:00 Intake Total 450 ml 208 ml 369 ml 243 ml 305 ml Output Total 850 ml 350 ml 750 ml 200 ml 800 ml Balance -400 ml -142 ml -381 ml 43 ml -495 ml IV Total 450 ml 208 ml 369 ml 243 ml 305 ml Output Urine Total 850 ml 350 ml 750 ml 200 ml 800 ml # Voids 2 1 1 # Bowel Movements 0 Result Diagram: 07/25/16 0210 07/24/160 Objective Remarks GENERAL: 46 years old female in no acute distress SKIN: Warm and dry. HEAD: Normocephalic. EYES: No scleral icterus. No injection or drainage. NECK: Supple, trachea midline. No JVD or lymphadenopathy. CARDIOVASCULAR: Regular rate and rhythm without murmurs, gallops, or rubs. RESPIRATORY: Breath sounds equal bilaterally. No accessory muscle use. GASTROINTESTINAL: Abdomen soft, nondistended. Mild tenderness on palpation. MUSCULOSKELETAL: No cyanosis, or edema. A/P Assessment and Plan 07/24/16:Alkaline phosphatase increase to 1113, bilirubin 7.6, ALT/AST 76/80, discussed with GI [facility] TE[facility], most likely plan to transfer to [facility], she will discuss with attending, case fitter will work on the transfer 07/25/16: Alkaline phosphatase LFT slightly dropped today Alkaline phosphatase 1113>> 1056, AST 77, ALT 78, GGT 702, Total bilirubin dropped 7.6-5.5, possible plan for ERCP today per GI A/P: - s/p Septic shock. -Gram negative bacteremia( Kleb pneumonia) - Abdominal pain, ? acute cholangitis. - Lactic acidemia..resolved - Mild acute kidney injury. - Elevated liver enzymes with hyperbilirubinemia. - History of primary sclerosing cholangitis and strictures. - Leukocytosis with bandemia. - Hyperglycemia with underlying history of diabetes mellitus. - History of non-Hodgkin's lymphoma status post chemo 10 years ago. - Chronic abdominal pain. - Coagulopathy likely 2md liver disease Plan: Monitor neuro status closely and avoid any sedatives. CT brain: No acute process Continue with oxygen and maintain sats above 92%. Bronchodilators Monitor HR and BP maintain MAP >65 mmHg. Lactic acid resolved Monitor renal function, Is and Os and electrolyte replacement per protocol. on Albumin 25gms Q8. On full liquid diet. on Protonix 40 mg IV daily for GI prophylaxis. GI is following for ERCP today CT abdomen/pelvis: No masses, cirrhotic appearance of liver Continue with abx per ID(Zosyn) monitor for signs of infections(fever and WBC) . CXR in the ED negative for acute disease. Nasal washing negative for influenza. BC 07/19 Kleb pneumonia, GNR, follow up on BC from 07/21..NGTD Monitor CBC and coags. s/p transfusion 3 u FFP and Vitamin K 10mg IV x1 on 07/20 for INR 11 now INR 1.0 On Vitamin K 10mg daily per GI On medium SSI with Accu-Cheks q.6 hours for glycemic control. GI prophylaxis with Protonix 40 mg daily and DVT prophylaxis with SCDs only Lines: Right subclavian CVP placed 07/19 Elizabeth Mac MD Jul 25, 2016 16:55
[2016-07-25 20:05] LABS: FERRITIN 159 NG/ML (8-252); TRANSFERRIN IRON PROFILE 215 MG/DL (200-360)
[2016-07-26] VITALS (10 sets, daily range): BP systolic 111–165; BP diastolic 69–86; PULSE 61–96; RESP 12–18; TEMP 97.9–99.6; O2SAT 96–99
[2016-07-26] MEDS: HYDROmorphone HCL PF 1 MG/ML VIAL IV PRN ×7 (00:16→23:45)
[2016-07-26] MEDS: SODIUM PHOSPHATE INJ 30 MMOL in SODIUM CHLOR 0.9% 250 ML INJ 240 ML IV PRN (02:30)
[2016-07-26] MEDS: AMPICILLIN-SULBACTAM INJ 3 GM in SODIUM CHLORIDE 0.9% INJ 100 ML IV SCH ×4 (02:30→20:41)
[2016-07-26] MEDS: INSULIN NovoLIN REGULAR SUPPLEMENTAL SCALE SQ SCH ×4 (03:28→20:42)
[2016-07-26] MEDS: CHLORHEXIDINE GLUCONATE 2 % 1 PACK (2 CLOTHS) TOP SCH (04:00)
[2016-07-26 04:59] LABS: INDIRECT BILIRUBIN 1.3 MG/DL (0.0-0.8); TOTAL BILIRUBIN ADULT 5.5 MG/DL (0.2-1.0)
--- NOTE | 2016-07-26 08:42 | HHI.GIFU ---
Subjective Remarks Resting in bed. Continues to have abdominal pain. NPO for possible ERCP. Objective Vitals I&O Vital Signs Date Time Temp Pulse Resp B/P Pulse Ox O2 Delivery O2 Flow Rate FiO2 07/26/16 06:00 89 07/26/16 04:00 88 07/26/16 04:00 98.5 88 16 111/69 97 07/26/16 02:00 93 07/26/16 00:46 16 07/26/16 00:00 99.6 96 16 121/77 98 07/26/16 00:00 96 07/25/16 22:00 96 07/25/16 20:00 99.4 97 16 120/76 95 07/25/16 20:00 97 07/25/16 18:00 96 07/25/16 16:00 89 07/25/16 16:00 97.5 82 18 119/75 96 07/25/16 14:00 82 07/25/16 12:00 81 07/25/16 12:00 97.8 81 17 129/75 96 07/25/16 10:00 89 I/O 07/25/16 07/25/16 07/25/16 07/26/16 07/26/16 07/26/16 07:00 15:00 23:00 07:00 15:00 23:00 Intake Total 243 ml 305 ml 419 ml 290 ml Output Total 200 ml 800 ml 325 ml 375 ml Balance 43 ml -495 ml 94 ml -85 ml Intake Oral 180 ml 60 ml IV Total 243 ml 305 ml 239 ml 230 ml Output Urine Total 200 ml 800 ml 325 ml 375 ml # Voids 1 1 # Bowel Movements 0 0 Laboratory Laboratory Tests Test 07/25/16 07/25/16 07/26/16 18:10 21:50 03:30 Phosphorus Level 2.1 Iron Level 54 Total Iron Binding Capacity 301 Percent Iron Saturation 17.9 Ferritin 159 Tumor Marker Alpha Fetoprotein 9.5 Total Bilirubin 5.5 Direct Bilirubin 4.2 Indirect Bilirubin 1.3 Aspartate Amino Transf 83 (AST/SGOT) Alanine Aminotransferase 71 (ALT/SGPT) Alkaline Phosphatase 1137 Total Protein 5.6 Albumin 2.1 Date/Time Procedure Status Source Growth 07/21/16 08:52 Aerobic Blood Culture - Preliminary Resulted Blood Peripheral NO GROWTH IN 4 DAYS 07/21/16 08:52 Anaerobic Blood Culture - Preliminary Resulted Blood Peripheral NO GROWTH IN 4 DAYS Imaging Last Impressions Cholangiopancreatography MRI 07/23/16 0000 Signed Impressions: Service Date/Time: Saturday, July 23, 2016 12:01 - CONCLUSION: 1. Abnormally dilated left intrahepatic bile ducts with caliber change near the ankit hepatis at the confluence. No mass is appreciated in this area on this examination or the recent CT of the abdomen. Therefore, etiology is nonspecific. Stricture or small mass are the differential diagnostic considerations. These ducts have a similar appearance on the August 2014 examination. Suggest correlation with the clinical history. 2. Normal right intrahepatic bile ducts and common bile duct. Gallbladder is decompressed but demonstrates severe diffuse wall edema which may be related to the portal hypertension and chronic liver disease. 3. Abnormally dilated main pancreatic duct in the tail with associated dilated sidebranches. There is abrupt caliber change in the mid body. The appearance is similar to multiple prior studies dating back to 2014. I do not see a mass as the cause and since there has been no significant change this may be related to a stricture. Segmental IPMN is also a consideration but felt less likely. Suggest attention to this at followup imaging to confirm stability. 4. The liver demonstrates features diagnostic of cirrhosis. There is a moderate volume of free fluid within the abdomen and pelvis likely related to portal hypertension. There are also small bilateral pleural effusions. Mele Yoo MD Chest X-Ray 07/19/16 1141 Signed Impressions: Service Date/Time: July 12:25 - CONCLUSION: 1. No acute cardiopulmonary findings. Farzad Morales MD Head CT 07/19/16 0000 Signed Impressions: Service Date/Time: July 16:01 - CONCLUSION: 1. No evidence of acute intracranial pathology. No masses are identified. Nestor Isabel MD Abdomen/Pelvis CT 07/19/16 0000 Signed Impressions: Service Date/Time: July 16:00 - CONCLUSION: Continued cirrhotic appearance of the liver. Some areas of scarring or volume loss throughout the right lobe similar to the previous study. No definite solid mass is seen. Status post splenectomy. No significant retroperitoneal adenopathy. Fadi Deng MD Physical Exam HEENT: Normocephalic; atraumatic CHEST: CTA CARDIAC: RRR ABDOMEN: Soft, nondistended, diffuse tenderness-moderate; no hepatosplenomegaly ; bowel sounds are present in all four quadrants. EXTREMITIES: No clubbing, cyanosis, or edema. SKIN: Normal; no rash; + jaundice. RAP ARTIST: No focal deficits; alert and oriented times three. Assessment and Plan Plan ASSESSMENT: - Sclerosing Cholangitis/Biliary Strictures with sepsis/fever, N/V/Abdominal pain. She is currently following with [facility]. Last ERCP (04/27/16)---> primary sclerosing cholangitis, dominant stricture right intrahepatic duct, periampullary diverticulum. During that admission, IR was consulted for possible PTHC, but they did not feel that this could be done and therefore it was cancelled. Abnormal imaging of the gallbladder. Abdomen/Pelvis CT (07/19/16)----> Continued cirrhotic appearance of the liver. Some areas of scarring or volume loss throughout the right lobe similar to the previous study. No definite solid mass is seen. Status post splenectomy. No significant retroperitoneal adenopathy. MRCP (07/23/16)----> 1. Abnormally dilated left intrahepatic bile ducts with caliber change near the ankit hepatis at the confluence. No mass is appreciated in this area on this examination or the recent CT of the abdomen. Therefore, etiology is nonspecific. Stricture or small mass are the differential diagnostic considerations. These ducts have a similar appearance on the August 2014 examination. Suggest correlation with the clinical history. 2. Normal right intrahepatic bile ducts and common bile duct. Gallbladder is decompressed but demonstrates severe diffuse wall edema which may be related to the portal hypertension and chronic liver disease. 3. Abnormally dilated main pancreatic duct in the tail with associated dilated side branches. There is abrupt caliber change in the mid body. The appearance is similar to multiple prior studies dating back to 2015. I do not see a mass as the cause and since there has been no significant change this may be related to a stricture. Segmental IPMN is also a consideration but felt less likely. Suggest attention to this at followup imaging to confirm stability. 4. The liver demonstrates features diagnostic of cirrhosis. There is a moderate volume of free fluid within the abdomen and pelvis likely related to portal hypertension. There are also small bilateral pleural effusions. Bacteremia with Klebsiella, GNR. Rpt Cx with no growth in 4 days. Elevated LFTs above her baseline (T. Bilirubin , usually runs 1.5-2.5). Her labs have improved today. T. BIli 5.5, AST 83, ALT 71, Alk Phosph 1137. ID following. Ampicillin. [facility] declined patient for transfer because they feel there is nothing they will do differently than we are doing here with regards to her care. Will plan for ERCP with possible stent placement today, as labs are essentially the same. - Sepsis, Bacteremia, Fevers, Leukocytosis. BCx with Klebsiella, GNR. ID following, On Ampicillin. Low grade fever, 99.6 - Liver cirrhosis. S/P liver biopsy (2013) at that time of both her normal liver parenchyma and her liver mass. The normal liver parenchyma revealed chronic hepatitis with bridging fibrosis and cirrhosis grade 2/4, stage 3-4/4 exhibiting bile duct tubular damage and ductopenia, chronic hepaititis with bridging fibrosis. Of note, specimen #1 suggested a differential diagnosis of primary biliary cirrhosis vs. drug induced disease. The histopathology did not suggest that of primary sclerosing cholangitis. The liver mass suggested chronic hepatitis with bridging fibrosis 2/4, stage III/4. Of note, she was evaluated by [facility], but states she was told that her MELD score was too low to be considered for liver transplant. Will repeat liver workup and will likely need repeat liver biopsy after these are resulted. AFP 9.5, Alpha 1 Antitrypsin pending, Ceruloplasmin pending. Hepatitis pending, MARCELLO/ASMA/AMA pending, Ferritin 159, Iron sat 17.9% - Hx of abnormal imaging of the gallbladder. HIDA (04/27/16)----> Nonvisualization of the gallbladder. ADDENDUM: Delayed imaging of the abdomen documents an ovoid area of activity in the right upper quadrant in the expected location of the gallbladder based on prior cross-sectional imaging studies. Delayed visualization the gallbladder should exclude complete cystic duct obstruction. However, based on prior imaging studies, the gallbladder demonstrated severe diffuse wall edema. S/P GS evaluation during last admission who did not feel this was contributing to her symptoms and did not recommend cholecystectomy. - Hx of non-Hodgkin's lymphoma and completed chemotherapy in 2005, but has had an ongoing problem with biliary strictures and sclerosing cholangitis. Plan: - Plan for ERCP with possible stent placement today. - Obtain consents - NPO - Rpt. Liver W/U- hepatitis, afp, marcello, asma, ama, ceruloplasmin, alpha 1 antitrypsin, ferritin, iron saturation. - CBC, LFT in am - Cont. PPI - Cont. Abx - Cont. Miralax - Supportive care - [facility] declined patient because they do not feel that they would do anything different with regards to her care - Consider repeat liver biopsy after rpt. liver workup - Consider paracentesis (diagnostic/therapeutic) at time of liver biopsy - Pt seen and examined by Dr. Batista and myself and this note is written on his behalf Aliyah Mosher Jul 26, 2016 08:42
[2016-07-26] MEDS: POLYETHYLENE GLYCOL 17 GM PKG PO SCH (09:00)
[2016-07-26] MEDS ORDERED: IOHEXOL 350 MG/ML 100 ML BTL (for Cath Lab) OTHER ONE (10:00)
[2016-07-26] MEDS ORDERED: PROPOFOL 200 MG/20 ML AMP IV ONE (10:17)
[2016-07-26] MEDS ORDERED: SUGAMMADEX SODIUM 200 MG/2 ML VIAL IV PUSH ONE ×2 (10:26)
[2016-07-26] MEDS ORDERED: *HYDROmorphone PF 1 MG VIAL PERIprocedural Use ONLY ONE (10:47)
--- NOTE | 2016-07-26 11:31 | RADRPT ---
EXAM DATE/TIME: 07/26/2016 10:22 [facility] COMPARISON: No previous studies available for comparison. INDICATIONS : Obstruction. FLUORO TIME: 1.52 minutes IMAGE COUNT: 3 CONTRAST: Instilled by Ordering Physician MEDICAL HISTORY : None. SURGICAL HISTORY : None. ENCOUNTER: Initial ACUITY: 1 day PAIN SCORE: Non-responsive. LOCATION: Right lower quadrant FINDINGS: An ERCP was performed by the ordering physician. The images demonstrate injection of contrast into the common bile duct. No discrete filling defects a re identified. There are changes of the intrahepatic artery ductal system that could be compatible wi th the reported history of sclerosing cholangitis. CONCLUSION: ERCP as above. Feng Rod MD on July 26, 2016 at 11:27 Board Certified Radiologist. This report was verified electronically.
[2016-07-26] MEDS: PANTOPRAZOLE SODIUM 40 MG VIAL IV SCH (11:42)
--- NOTE | 2016-07-26 14:16 | HHI.PR ---
Subjective Remarks Patient had ERCP, feeling tired and somnolent Afebrile today I discussed with the nurse earlier regarding transfer to medical floor Objective Vitals Vital Signs Date Time Temp Pulse Resp B/P Pulse Ox O2 Delivery O2 Flow Rate FiO2 07/26/16 12:00 98.3 80 16 127/86 98 07/26/16 12:00 80 07/26/16 11:00 98.3 83 16 123/82 95 Nasal Cannula 4 07/26/16 10:45 86 16 123/81 94 Nasal Cannula 4 07/26/16 10:39 98.4 90 16 116/82 92 Nasal Cannula 4 07/26/16 08:00 97.9 76 14 119/75 99 07/26/16 08:00 76 07/26/16 06:00 89 07/26/16 04:00 88 07/26/16 04:00 98.5 88 16 111/69 97 07/26/16 02:00 93 07/26/16 00:46 16 07/26/16 00:00 99.6 96 16 121/77 98 07/26/16 00:00 96 07/25/16 22:00 96 07/25/16 20:00 99.4 97 16 120/76 95 07/25/16 20:00 97 07/25/16 18:00 96 07/25/16 16:00 89 07/25/16 16:00 97.5 82 18 119/75 96 I/O 07/25/16 07/25/16 07/25/16 07/26/16 07/26/16 07/26/16 07:00 15:00 23:00 07:00 15:00 23:00 Intake Total 243 ml 305 ml 419 ml 290 ml 400 ml Output Total 200 ml 800 ml 325 ml 375 ml 0 ml Balance 43 ml -495 ml 94 ml -85 ml 400 ml Intake Oral 180 ml 60 ml 0 ml IV Total 243 ml 305 ml 239 ml 230 ml 200 ml Other 200 ml Output Urine Total 200 ml 800 ml 325 ml 375 ml 0 ml Estimated Blood Loss 0 ml # Voids 1 1 0 # Bowel Movements 0 0 Result Diagram: 07/25/1620907/24/162199 Objective Remarks GENERAL: 46 years old female in no acute distress SKIN: Warm and dry. HEAD: Normocephalic. EYES: No scleral icterus. No injection or drainage. NECK: Supple, trachea midline. No JVD or lymphadenopathy. CARDIOVASCULAR: Regular rate and rhythm without murmurs, gallops, or rubs. RESPIRATORY: Breath sounds equal bilaterally. No accessory muscle use. GASTROINTESTINAL: Abdomen soft, nondistended. Mild tenderness on palpation. MUSCULOSKELETAL: No cyanosis, or edema. A/P Assessment and Plan 07/24/16:Alkaline phosphatase increase to 1113, bilirubin 7.6, ALT/AST 76/80, discussed with GI MEDIA MARKETING DIRECTOR, most likely plan to transfer to [facility], she will discuss with attending, skilled nursing case manager will work on the transfer 07/25/16: Alkaline phosphatase LFT slightly dropped today Alkaline phosphatase 1113>> 1056, AST 77, ALT 78, GGT 702, Total bilirubin dropped 7.6-5.5, possible plan for ERCP today per GI 07/25/16: ERCP today with possible stenting placement and paracentesis, will transfer to medical floor, LFT is about the same except for alkaline phosphatase slightly increased today to 1160, CBC BMP mg phos in am A/P: - s/p Septic shock. -Gram negative bacteremia( Kleb pneumonia) - Abdominal pain, ? acute cholangitis. - Lactic acidemia..resolved - Mild acute kidney injury. - Elevated liver enzymes with hyperbilirubinemia. - History of primary sclerosing cholangitis and strictures. - Leukocytosis with bandemia. - Hyperglycemia with underlying history of diabetes mellitus. - History of non-Hodgkin's lymphoma status post chemo 10 years ago. - Chronic abdominal pain. - Coagulopathy likely 2md liver disease Plan: Monitor neuro status closely and avoid any sedatives. CT brain: No acute process Continue with oxygen and maintain sats above 92%. Bronchodilators Monitor HR and BP maintain MAP >65 mmHg. Lactic acid resolved Monitor renal function, Is and Os and electrolyte replacement per protocol. on Albumin 25gms Q8. On full liquid diet. on Protonix 40 mg IV daily for GI prophylaxis. GI is following for ERCP today CT abdomen/pelvis: No masses, cirrhotic appearance of liver Continue with abx per ID(Zosyn) monitor for signs of infections(fever and WBC) . CXR in the ED negative for acute disease. Nasal washing negative for influenza. BC 07/19 Kleb pneumonia, GNR, follow up on BC from 07/21..NGTD Monitor CBC and coags. s/p transfusion 3 u FFP and Vitamin K 10mg IV x1 on 07/20 for INR 11 now INR 1.0 On Vitamin K 10mg daily per GI On medium SSI with Accu-Cheks q.6 hours for glycemic control. GI prophylaxis with Protonix 40 mg daily and DVT prophylaxis with SCDs only Lines: Right subclavian CVP placed 07/19 Elizabeth Mac MD Jul 26, 2016 14:16
[2016-07-26 15:56] LABS: MEAN CORPUSCULAR HEMOGLOBIN 27.1 PG (27.0-34.0); MEAN CORPUSCULAR HGB CONC 32.3 % (32.0-36.0); PLATELET COUNT 314 TH/MM3 (150-450); RED BLOOD COUNT 3.46 MIL/MM3 (4.00-5.30); RED CELL DISTRIBUTION WIDTH 17.3 % (11.6-17.2); WHITE BLOOD COUNT 7.1 TH/MM3 (4.0-11.0)
[2016-07-26 15:59] LABS: HEMO FLAGS AUTO DIFF
[2016-07-26 16:06] LABS: MAGNESIUM 1.4 MG/DL (1.5-2.5); POTASSIUM 3.1 MEQ/L (3.5-5.1)
[2016-07-26 16:20] LABS: INDIRECT BILIRUBIN 1.2 MG/DL (0.0-0.8); TOTAL BILIRUBIN ADULT 4.7 MG/DL (0.2-1.0)
[2016-07-26 16:27] LABS: BANDS 10 % (0-6); CORRECTED NUCLEATED RBC 1 /100 WBC (0-0); EOSINOPHILS 5 % (0-4); METAMYELOCYTES 1 % (0-1); MYELOCYTES 1 % (0-0); NEUTROPHIL # MANUAL DIFF 5.3 TH/MM3 (1.8-7.7); POLYS (SEG NEUTROPHILS) 62 % (16-70); SCAN/DIFF FINAL DIFF MANUAL; TARGET CELLS 3+ (NORMAL); WBC DIFF SAMPLE 100
[2016-07-26 16:29] LABS: HOWELL-JOLLY BODIES PRESENT (NONE SEEN); KERATOCYTES OCC (NORMAL); PLATELET ESTIMATE SMEAR NORMAL (NORMAL); PLATELET MORPHOLOGY ENLARGED (NORMAL)
[2016-07-26] MEDS ORDERED: POTASSIUM CHLOR 20 MEQ PREMIX 100 ML IV ONE (16:45)
[2016-07-26] MEDS: D5-1/2 NS + KCL 20 MEQ INJ 1,000 ML IV SCH (16:53)
[2016-07-27] VITALS (8 sets, daily range): BP systolic 102–141; BP diastolic 66–77; PULSE 18–87; RESP 13–23; TEMP 97.7–99; O2SAT 95–98
[2016-07-27] MEDS: HYDROmorphone HCL PF 1 MG/ML VIAL IV PRN ×6 (02:44→21:19)
[2016-07-27] MEDS: INSULIN NovoLIN REGULAR SUPPLEMENTAL SCALE SQ SCH ×4 (03:13→21:15)
[2016-07-27] MEDS: AMPICILLIN-SULBACTAM INJ 3 GM in SODIUM CHLORIDE 0.9% INJ 100 ML IV SCH ×4 (03:13→21:17)
[2016-07-27] MEDS: CHLORHEXIDINE GLUCONATE 2 % 1 PACK (2 CLOTHS) TOP SCH (03:43)
[2016-07-27 07:22] LABS: MEAN CELL VOLUME 85.1 FL (80.0-100.0); MEAN CORPUSCULAR HEMOGLOBIN 28.6 PG (27.0-34.0); MEAN CORPUSCULAR HGB CONC 33.6 % (32.0-36.0); PLATELET COUNT 309 TH/MM3 (150-450); RED BLOOD COUNT 3.65 MIL/MM3 (4.00-5.30); RED CELL DISTRIBUTION WIDTH 17.6 % (11.6-17.2); WHITE BLOOD COUNT 8.7 TH/MM3 (4.0-11.0)
[2016-07-27 07:39] LABS: HEMO FLAGS AUTO DIFF
[2016-07-27 07:59] LABS: INDIRECT BILIRUBIN 1.4 MG/DL (0.0-0.8); TOTAL BILIRUBIN ADULT 4.2 MG/DL (0.2-1.0)
[2016-07-27] MEDS: PANTOPRAZOLE SODIUM 40 MG VIAL IV SCH (08:08)
[2016-07-27] MEDS: POLYETHYLENE GLYCOL 17 GM PKG PO SCH (09:00)
[2016-07-27 09:12] LABS: BANDS 17 % (0-6); BASOPHILS 1 % (0-2); NEUTROPHIL # MANUAL DIFF 6.9 TH/MM3 (1.8-7.7); POLYS (SEG NEUTROPHILS) 62 % (16-70); WBC DIFF SAMPLE 100
[2016-07-27 09:13] LABS: PLATELET ESTIMATE SMEAR NORMAL (NORMAL); PLATELET MORPHOLOGY ENLARGED (NORMAL); TARGET CELLS 2+ (NORMAL)
[2016-07-27 09:14] LABS: SCAN/DIFF FINAL DIFF MANUAL
[2016-07-27] MEDS ORDERED: POTASSIUM PHOSPHATE/SODIUM PHOSPHATE 250 MG TAB PO SCH (09:30)
[2016-07-27] MEDS ORDERED: MAGNESIUM SULFATE 1 GM PREMIX 100 ML IV SCH (10:00)
--- NOTE | 2016-07-27 10:42 | HHI.PR ---
Subjective Remarks Patient resting in bed stated she still have soreness in her abdomen around 7-8 out of 10 No nausea or vomiting she had ERCP yesterday which showed left hepatic tree possible stricture, GI recommending continuing antibiotic and liver biopsy I discussed with the nurse will repeat her electrolyte panel today she was on K , phosphorus and magnesium yesterday Objective Vitals Vital Signs Date Time Temp Pulse Resp B/P Pulse Ox O2 Delivery O2 Flow Rate FiO2 07/27/16 08:00 97.7 71 13 141/77 97 07/27/16 08:00 72 07/27/16 04:00 75 07/27/16 04:00 98.7 75 20 131/74 96 07/27/16 03:15 22 07/27/16 00:00 77 07/27/16 00:00 98.3 18 18 124/75 96 07/26/16 20:49 96 21 07/26/16 20:00 99.0 79 18 117/73 96 07/26/16 20:00 79 07/26/16 16:00 99.3 62 12 165/83 98 07/26/16 16:00 61 07/26/16 12:00 98.3 80 16 127/86 98 07/26/16 12:00 80 07/26/16 11:00 98.3 83 16 123/82 95 Nasal Cannula 4 07/26/16 10:45 86 16 123/81 94 Nasal Cannula 4 I/O 07/26/16 07/26/16 07/26/16 07/27/16 07/27/16 07/27/16 07:00 15:00 23:00 07:00 15:00 23:00 Intake Total 290 ml 614 ml 281 ml 4001 ml Output Total 375 ml 800 ml 600 ml 400 ml Balance -85 ml -186 ml -319 ml 3601 ml Intake Oral 60 ml 0 ml IV Total 230 ml 414 ml 281 ml 4001 ml Other 200 ml Output Urine Total 375 ml 800 ml 600 ml 400 ml Estimated Blood Loss 0 ml # Voids 0 # Bowel Movements 0 Result Diagram: 07/27/16 0627 07/26/16 1250 Objective Remarks GENERAL: 46 years old female in no acute distress SKIN: Warm and dry. HEAD: Normocephalic. EYES: No scleral icterus. No injection or drainage. NECK: Supple, trachea midline. No JVD or lymphadenopathy. CARDIOVASCULAR: Regular rate and rhythm without murmurs, gallops, or rubs. RESPIRATORY: Breath sounds equal bilaterally. No accessory muscle use. GASTROINTESTINAL: Abdomen soft, nondistended. Mild tenderness on palpation. MUSCULOSKELETAL: No cyanosis, or edema. A/P Assessment and Plan 07/24/16:Alkaline phosphatase increase to 1113, bilirubin 7.6, ALT/AST 76/80, discussed with GI MOLD BUNCH TRIMMER, most likely plan to transfer to [facility], she will discuss with attending, case finisher will work on the transfer 07/25/16: Alkaline phosphatase LFT slightly dropped today Alkaline phosphatase 1113>> 1056, AST 77, ALT 78, GGT 702, Total bilirubin dropped 7.6-5.5, possible plan for ERCP today per GI 07/25/16: ERCP today with possible stenting placement and paracentesis, will transfer to medical floor, LFT is about the same except for alkaline phosphatase slightly increased today to 1160, CBC BMP mg phos in am 07/27/16: ERCP yesterday showed left hepatic tree stricture, plan for liver biopsy, continue antibiotic per GI, monitor BMP MG, phosphorus A/P: - s/p Septic shock. -Gram negative bacteremia( Kleb pneumonia) - Abdominal pain, ? acute cholangitis. - Lactic acidemia..resolved - Mild acute kidney injury. - Elevated liver enzymes with hyperbilirubinemia. - History of primary sclerosing cholangitis and strictures. - Leukocytosis with bandemia. - Hyperglycemia with underlying history of diabetes mellitus. - History of non-Hodgkin's lymphoma status post chemo 10 years ago. - Chronic abdominal pain. - Coagulopathy likely 2md liver disease Plan: Status post ERCP 07/26/16> left hepatic tree stricture, continue antibiotic, GI recommending liver biopsy Monitor neuro status closely and avoid any sedatives. CT brain: No acute process Continue with oxygen and maintain sats above 92%. Bronchodilators Monitor HR and BP maintain MAP >65 mmHg. Lactic acid resolved Monitor renal function, Is and Os and electrolyte replacement per protocol. on Albumin 25gms Q8. On full liquid diet. on Protonix 40 mg IV daily for GI prophylaxis. GI is following for ERCP today CT abdomen/pelvis: No masses, cirrhotic appearance of liver Continue with abx per ID(Zosyn) monitor for signs of infections(fever and WBC) . CXR in the ED negative for acute disease. Nasal washing negative for influenza. BC 07/19 Kleb pneumonia, GNR, follow up on BC from 07/21..NGTD Monitor CBC and coags. s/p transfusion 3 u FFP and Vitamin K 10mg IV x1 on 07/20 for INR 11 now INR 1.0 On Vitamin K 10mg daily per GI On medium SSI with Accu-Cheks q.6 hours for glycemic control. GI prophylaxis with Protonix 40 mg daily and DVT prophylaxis with SCDs only Lines: Right subclavian CVP placed 07/19 Elizabeth Mac MD Jul 27, 2016 10:41
[2016-07-27] MEDS: D5-1/2 NS + KCL 20 MEQ INJ 1,000 ML IV SCH (11:03)
[2016-07-27 12:01] LABS: BICARBONATE 22.2 MEQ/L (21.0-32.0); MAGNESIUM 1.5 MG/DL (1.5-2.5); POTASSIUM 3.3 MEQ/L (3.5-5.1)
[2016-07-27] MEDS: POTASSIUM PHOSPHATE MONOBASIC 500 MG TAB PO PRN (12:36)
--- NOTE | 2016-07-27 13:26 | HHI.GIFU ---
Subjective Remarks Resting in bed. NPO. Continues to have abdominal pain, although controlled with pain meds. (Aliyah Mosher) Objective Vitals I&O Vital Signs Date Time Temp Pulse Resp B/P Pulse Ox O2 Delivery O2 Flow Rate FiO2 07/27/16 12:00 97.7 75 13 135/77 98 07/27/16 12:00 75 07/27/16 08:00 97.7 71 13 141/77 97 07/27/16 08:00 72 07/27/16 04:00 75 07/27/16 04:00 98.7 75 20 131/74 96 07/27/16 03:15 22 07/27/16 00:00 77 07/27/16 00:00 98.3 18 18 124/75 96 07/26/16 20:49 96 21 07/26/16 20:00 99.0 79 18 117/73 96 07/26/16 20:00 79 07/26/16 16:00 99.3 62 12 165/83 98 07/26/16 16:00 61 I/O 07/26/16 07/26/16 07/26/16 07/27/16 07/27/16 07/27/16 06:59 14:59 22:59 06:59 14:59 22:59 Intake Total 290 ml 614 ml 281 ml 4001 ml Output Total 375 ml 800 ml 600 ml 400 ml Balance -85 ml -186 ml -319 ml 3601 ml Intake Oral 60 ml 0 ml IV Total 230 ml 414 ml 281 ml 4001 ml Other 200 ml Output Urine Total 375 ml 800 ml 600 ml 400 ml Estimated Blood Loss 0 ml # Voids 0 # Bowel Movements 0 Laboratory Laboratory Tests Test 07/27/16 06:27 White Blood Count 8.7 Red Blood Count 3.65 Hemoglobin 10.4 Hematocrit 31.0 Mean Corpuscular Volume 85.1 Mean Corpuscular Hemoglobin 28.6 Mean Corpuscular Hemoglobin 33.6 Concent Red Cell Distribution Width 17.6 Platelet Count 309 Mean Platelet Volume 11.1 Neutrophils (%) (Auto) Lymphocytes (%) (Auto) Monocytes (%) (Auto) Eosinophils (%) (Auto) Basophils (%) (Auto) Neutrophils # (Auto) Lymphocytes # (Auto) Monocytes # (Auto) Eosinophils # (Auto) Basophils # (Auto) CBC Comment AUTO DIFF Differential Total Cells 100 Counted Neutrophils % (Manual) 62 Band Neutrophils % 17 Lymphocytes % 7 Monocytes % 13 Basophils % 1 Neutrophils # (Manual) 6.9 Differential Comment FINAL DIFF MANUAL Platelet Estimate NORMAL Platelet Morphology Comment ENLARGED Target Cells 2+ Sodium Level 139 Potassium Level 3.3 Chloride Level 106 Carbon Dioxide Level 22.2 Anion Gap 11 Blood Urea Nitrogen 4 Creatinine 0.26 Estimat Glomerular Filtration 283 Rate Random Glucose 161 Calcium Level 8.4 Phosphorus Level 2.0 Magnesium Level 1.5 Total Bilirubin 4.2 Direct Bilirubin 2.8 Indirect Bilirubin 1.4 Aspartate Amino Transf 79 (AST/SGOT) Alanine Aminotransferase 68 (ALT/SGPT) Alkaline Phosphatase 1124 Total Protein 5.6 Albumin 2.1 Imaging Last Impressions GI Procedure 07/26/16 0000 Signed Impressions: Service Date/Time: July 10:22 - CONCLUSION: ERCP as above. Feng Rod MD Cholangiopancreatography MRI 07/23/16 0000 Signed Impressions: Service Date/Time: Saturday, July 23, 2016 12:01 - CONCLUSION: 1. Abnormally dilated left intrahepatic bile ducts with caliber change near the ankit hepatis at the confluence. No mass is appreciated in this area on this examination or the recent CT of the abdomen. Therefore, etiology is nonspecific. Stricture or small mass are the differential diagnostic considerations. These ducts have a similar appearance on the August 2014 examination. Suggest correlation with the clinical history. 2. Normal right intrahepatic bile ducts and common bile duct. Gallbladder is decompressed but demonstrates severe diffuse wall edema which may be related to the portal hypertension and chronic liver disease. 3. Abnormally dilated main pancreatic duct in the tail with associated dilated sidebranches. There is abrupt caliber change in the mid body. The appearance is similar to multiple prior studies dating back to 2015. I do not see a mass as the cause and since there has been no significant change this may be related to a stricture. Segmental IPMN is also a consideration but felt less likely. Suggest attention to this at followup imaging to confirm stability. 4. The liver demonstrates features diagnostic of cirrhosis. There is a moderate volume of free fluid within the abdomen and pelvis likely related to portal hypertension. There are also small bilateral pleural effusions. Mele Yoo MD Chest X-Ray 07/19/16 1141 Signed Impressions: Service Date/Time: July 12:25 - CONCLUSION: 1. No acute cardiopulmonary findings. Farzad Morales MD Head CT 07/19/16 0000 Signed Impressions: Service Date/Time: July 16:01 - CONCLUSION: 1. No evidence of acute intracranial pathology. No masses are identified. Nestor Isabel MD Abdomen/Pelvis CT 07/19/16 0000 Signed Impressions: Service Date/Time: July 16:00 - CONCLUSION: Continued cirrhotic appearance of the liver. Some areas of scarring or volume loss throughout the right lobe similar to the previous study. No definite solid mass is seen. Status post splenectomy. No significant retroperitoneal adenopathy. Fadi Deng MD Physical Exam HEENT: Normocephalic; atraumatic CHEST: CTA CARDIAC: RRR ABDOMEN: Soft, nondistended, diffuse tenderness-moderate; no hepatosplenomegaly ; bowel sounds are present in all four quadrants. EXTREMITIES: No clubbing, cyanosis, or edema. SKIN: Normal; no rash; + jaundice. TOWER CLIMBER: No focal deficits; alert and oriented times three. (Aliyah Mosher) Assessment and Plan Plan ASSESSMENT: - Sclerosing Cholangitis/Biliary Strictures with sepsis/fever, N/V/Abdominal pain. She is currently following with [facility]. Last ERCP (04/27/16)---> primary sclerosing cholangitis, dominant stricture right intrahepatic duct, periampullary diverticulum. During that admission, IR was consulted for possible PTHC, but they did not feel that this could be done and therefore it was cancelled. Abnormal imaging of the gallbladder. Abdomen/Pelvis CT (07/19/16)----> Continued cirrhotic appearance of the liver. Some areas of scarring or volume loss throughout the right lobe similar to the previous study. No definite solid mass is seen. Status post splenectomy. No significant retroperitoneal adenopathy. MRCP (07/23/16)----> 1. Abnormally dilated left intrahepatic bile ducts with caliber change near the ankit hepatis at the confluence. No mass is appreciated in this area on this examination or the recent CT of the abdomen. Therefore, etiology is nonspecific. Stricture or small mass are the differential diagnostic considerations. These ducts have a similar appearance on the August 2014 examination. Suggest correlation with the clinical history. 2. Normal right intrahepatic bile ducts and common bile duct. Gallbladder is decompressed but demonstrates severe diffuse wall edema which may be related to the portal hypertension and chronic liver disease. 3. Abnormally dilated main pancreatic duct in the tail with associated dilated side branches. There is abrupt caliber change in the mid body. The appearance is similar to multiple prior studies dating back to 2015. I do not see a mass as the cause and since there has been no significant change this may be related to a stricture. Segmental IPMN is also a consideration but felt less likely. Suggest attention to this at followup imaging to confirm stability. 4. The liver demonstrates features diagnostic of cirrhosis. There is a moderate volume of free fluid within the abdomen and pelvis likely related to portal hypertension. There are also small bilateral pleural effusions. Bacteremia with Klebsiella, GNR. Rpt Cx with no growth in 4 days. Elevated LFTs above her baseline (T. Bilirubin , usually runs 1.5-2.5). S/P ERCP (07/26/16)-----> Ampulla C/W previous sphinctertomy, some sludge removed by balloon, free flow of bile, not able to see the left hepatic tree. No dye in that area, possible stricture, possible stricture in the left hepatic duct. ID following. Ampicillin. [facility] declined patient for transfer because they feel there is nothing they will do differently than we are doing here with regards to her care. - Sepsis, Bacteremia, Fevers, Leukocytosis. BCx with Klebsiella, GNR. ID following, abx per ID - Liver cirrhosis. S/P liver biopsy (2013) at that time of both her normal liver parenchyma and her liver mass. The normal liver parenchyma revealed chronic hepatitis with bridging fibrosis and cirrhosis grade 2/4, stage 3-4/4 exhibiting bile duct tubular damage and ductopenia, chronic hepaititis with bridging fibrosis. Of note, specimen #1 suggested a differential diagnosis of primary biliary cirrhosis vs. drug induced disease. The histopathology did not suggest that of primary sclerosing cholangitis. The liver mass suggested chronic hepatitis with bridging fibrosis 2/4, stage III/4. Of note, she was evaluated by [facility], but states she was told that her MELD score was too low to be considered for liver transplant. Will repeat liver workup and will likely need repeat liver biopsy after these are resulted. AFP 9.5, Alpha 1 Antitrypsin pending, Ceruloplasmin pending. Hepatitis pending, MARCELLO/ASMA/AMA pending, Ferritin 159, Iron sat 17.9% - Hx of abnormal imaging of the gallbladder. HIDA (04/27/16)----> Nonvisualization of the gallbladder. ADDENDUM: Delayed imaging of the abdomen documents an ovoid area of activity in the right upper quadrant in the expected location of the gallbladder based on prior cross-sectional imaging studies. Delayed visualization the gallbladder should exclude complete cystic duct obstruction. However, based on prior imaging studies, the gallbladder demonstrated severe diffuse wall edema. S/P GS evaluation during last admission who did not feel this was contributing to her symptoms and did not recommend cholecystectomy. T. Bili 4.2, AST 79, ALT 68, Alk Phosph 1124. AFP 9.5, Hepatitis panel negative, alpha 1 antitrypsin 291, ceruloplasmin pending, marcello negative, asma negative, ama negative. - Hx of non-Hodgkin's lymphoma and completed chemotherapy in 2005, but has had an ongoing problem with biliary strictures and sclerosing cholangitis. Plan: - NPO for liver biopsy today- okay to eat after this - CT guided liver biopsy - Await repeat liver W/U- marcello, asma, ama, ceruloplasmin - Cont. PPI - Cont. Abx - Cont. Miralax - Supportive care - Monitor labs - [facility] declined patient because they do not feel that they would do anything different with regards to her care - Pt seen and examined by Dr. Jarvis and myself and this note is written on his behalf (Aliyah Mosher) Physician Comments Seen and examined with PROFESSOR OF LITERACY, doing better, s/p liver biopsy today. ? PTC, will discuss with IR if possible to do. (Madison Jarvis MD) Aliyah Mosher Jul 27, 2016 13:25 Madison Jarvis MD Jul 27, 2016 19:58
[2016-07-27 14:24] LABS: ANA SCREEN NEG (NEG)
[2016-07-27] MEDS ORDERED: LIDOCAINE 1%/EPINEPHrine 1:100,000 SOLN 20 ML VIAL ONE (14:53)
[2016-07-27] MEDS ORDERED: MIDAZOLAM HCL 5 MG/5 ML VIAL ONE (14:57)
[2016-07-27] MEDS ORDERED: fentaNYL CITRATE 250 MCG/5 ML AMP ONE (14:57)
[2016-07-27] MEDS ORDERED: HYDROmorphone HCL PF 2 MG/ML VIAL ONE (15:40)
[2016-07-28] VITALS (7 sets, daily range): BP systolic 130–141; BP diastolic 77–90; PULSE 80–94; RESP 16–18; TEMP 98.1–98.6; O2SAT 95–98
[2016-07-28] MEDS: HYDROmorphone HCL PF 1 MG/ML VIAL IV PRN ×8 (00:30→22:25)
[2016-07-28] MEDS: AMPICILLIN-SULBACTAM INJ 3 GM in SODIUM CHLORIDE 0.9% INJ 100 ML IV SCH ×4 (01:06→21:18)
[2016-07-28] MEDS: INSULIN NovoLIN REGULAR SUPPLEMENTAL SCALE SQ SCH ×4 (03:20→21:33)
[2016-07-28] MEDS: CHLORHEXIDINE GLUCONATE 2 % 1 PACK (2 CLOTHS) TOP SCH (04:00)
[2016-07-28] MEDS: POLYETHYLENE GLYCOL 17 GM PKG PO SCH (09:23)
[2016-07-28] MEDS: PANTOPRAZOLE SODIUM 40 MG VIAL IV SCH (09:27)
[2016-07-28 10:15] LABS: INDIRECT BILIRUBIN 2.6 MG/DL (0.0-0.8); MAGNESIUM 1.6 MG/DL (1.5-2.5); TOTAL BILIRUBIN ADULT 4.6 MG/DL (0.2-1.0)
[2016-07-28 10:17] LABS: POTASSIUM 5.8 MEQ/L (3.5-5.1)
--- NOTE | 2016-07-28 12:00 | HHI.GIFU ---
GI Follow-up Note Consult Follow-up Subjective: Patient laying in bed comfortably, no new complaints except some abdominal pain Objective: PHYSICAL EXAMINATION: Vitals signs stable No fever HEENT: Pupils round and reactive to light; normocephalic; atraumatic; no jaundice. Throat is clear. NECK: Neck is supple, no JVD, no lymphadenopathy. CHEST: Chest is clear to auscultation and percussion. CARDIAC: Regular rate and rhythm with no murmur gallop or rubs. ABDOMEN: Soft, nondistended, nontender; no hepatosplenomegaly; bowel sounds are present in all four quadrants. EXTREMITIES: No clubbing, cyanosis, or edema. SKIN: Normal; no rash; no jaundice. 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 Available Data (labs, X- Rays, Procedues) : Last Impressions GI Procedure 07/26/16 0000 Signed Impressions: Service Date/Time: July 10:22 - CONCLUSION: ERCP as above. Feng Rod MD Cholangiopancreatography MRI 07/23/16 0000 Signed Impressions: Service Date/Time: Saturday, July 23, 2016 12:01 - CONCLUSION: 1. Abnormally dilated left intrahepatic bile ducts with caliber change near the ankit hepatis at the confluence. No mass is appreciated in this area on this examination or the recent CT of the abdomen. Therefore, etiology is nonspecific. Stricture or small mass are the differential diagnostic considerations. These ducts have a similar appearance on the August 2014 examination. Suggest correlation with the clinical history. 2. Normal right intrahepatic bile ducts and common bile duct. Gallbladder is decompressed but demonstrates severe diffuse wall edema which may be related to the portal hypertension and chronic liver disease. 3. Abnormally dilated main pancreatic duct in the tail with associated dilated sidebranches. There is abrupt caliber change in the mid body. The appearance is similar to multiple prior studies dating back to 2015. I do not see a mass as the cause and since there has been no significant change this may be related to a stricture. Segmental IPMN is also a consideration but felt less likely. Suggest attention to this at followup imaging to confirm stability. 4. The liver demonstrates features diagnostic of cirrhosis. There is a moderate volume of free fluid within the abdomen and pelvis likely related to portal hypertension. There are also small bilateral pleural effusions. Mele Yoo MD Chest X-Ray 3/2/17 1141 Signed Impressions: Service Date/Time: July 12:25 - CONCLUSION: 1. No acute cardiopulmonary findings. Farzad Morales MD Head CT 07/19/16 0000 Signed Impressions: Service Date/Time: July 16:01 - CONCLUSION: 1. No evidence of acute intracranial pathology. No masses are identified. Nestor Isabel MD Abdomen/Pelvis CT 07/19/16 0000 Signed Impressions: Service Date/Time: July 16:00 - CONCLUSION: Continued cirrhotic appearance of the liver. Some areas of scarring or volume loss throughout the right lobe similar to the previous study. No definite solid mass is seen. Status post splenectomy. No significant retroperitoneal adenopathy. Fadi Deng MD Laboratory Tests Test 07/26/16 07/27/16 07/28/16 12:50 06:27 09:06 White Blood Count 7.1 TH/MM3 8.7 TH/MM3 Red Blood Count 3.46 MIL/MM3 3.65 MIL/MM3 Hemoglobin 9.4 GM/DL 10.4 GM/DL Hematocrit 29.0 % 31.0 % Mean Corpuscular Volume 84.0 FL 85.1 FL Mean Corpuscular Hemoglobin 27.1 PG 28.6 PG Mean Corpuscular Hemoglobin 32.3 % 33.6 % Concent Red Cell Distribution Width 17.3 % 17.6 % Platelet Count 314 TH/MM3 309 TH/MM3 Mean Platelet Volume 11.3 FL 11.1 FL Neutrophils (%) (Auto) % % Lymphocytes (%) (Auto) % % Monocytes (%) (Auto) % % Eosinophils (%) (Auto) % % Basophils (%) (Auto) % % Neutrophils # (Auto) TH/MM3 TH/MM3 Lymphocytes # (Auto) TH/MM3 TH/MM3 Monocytes # (Auto) TH/MM3 TH/MM3 Eosinophils # (Auto) TH/MM3 TH/MM3 Basophils # (Auto) TH/MM3 TH/MM3 CBC Comment AUTO DIFF AUTO DIFF Differential Total Cells 100 100 Counted Neutrophils % (Manual) 62 % 62 % Band Neutrophils % 10 % 17 % Lymphocytes % 6 % 7 % Monocytes % 15 % 13 % Eosinophils % 5 % Neutrophils # (Manual) 5.3 TH/MM3 6.9 TH/MM3 Metamyelocytes 1 % Myelocytes 1 % Nucleated Red Blood Cells 1 /100 WBC Differential Comment FINAL DIFF FINAL DIFF MANUAL MANUAL Platelet Estimate NORMAL NORMAL Platelet Morphology Comment ENLARGED ENLARGED Target Cells 3+ 2+ [place] Bodies PRESENT Keratocytes OCC Sodium Level 141 MEQ/L 139 MEQ/L 134 MEQ/L Potassium Level 3.1 MEQ/L 3.3 MEQ/L 5.8 MEQ/L Chloride Level 103 MEQ/L 106 MEQ/L 102 MEQ/L Carbon Dioxide Level 29.0 MEQ/L 22.2 MEQ/L 25.0 MEQ/L Anion Gap 9 MEQ/L 11 MEQ/L 7 MEQ/L Blood Urea Nitrogen 5 MG/DL 4 MG/DL 4 MG/DL Creatinine 0.22 MG/DL 0.26 MG/DL 0.39 MG/DL Estimat Glomerular Filtration 343 ML/MIN 283 ML/MIN 177 ML/MIN Rate Random Glucose 186 MG/DL 161 MG/DL 238 MG/DL Calcium Level 8.1 MG/DL 8.4 MG/DL 8.2 MG/DL Phosphorus Level 2.4 MG/DL 2.0 MG/DL 2.5 MG/DL Magnesium Level 1.4 MG/DL 1.5 MG/DL 1.6 MG/DL Total Bilirubin 4.7 MG/DL 4.2 MG/DL 4.6 MG/DL Direct Bilirubin 3.5 MG/DL 2.8 MG/DL 2.0 MG/DL Indirect Bilirubin 1.2 MG/DL 1.4 MG/DL 2.6 MG/DL Aspartate Amino Transf 84 U/L 79 U/L 121 U/L (AST/SGOT) Alanine Aminotransferase 69 U/L 68 U/L 75 U/L (ALT/SGPT) Alkaline Phosphatase 1065 U/L 1124 U/L 1250 U/L Total Protein 5.3 GM/DL 5.6 GM/DL 6.1 GM/DL Albumin 2.0 GM/DL 2.1 GM/DL 2.0 GM/DL Basophils % 1 % Allergies Coded Allergies Type Severity Reaction Last Updated Verified Gadolinium Derivatives Allergy Severe BREATHING PROBLEMS, N/V,CHILLS 07/19/16 Yes MRI PRECAUTION Allergy Severe NAUSEA; PER PATIENT IT IS A GADOLINIUM ALLERGY KMD 11/25/12 07/19/16 Yes Morphine Allergy Severe BREATHING PROBLEMS 07/19/16 Yes Toradol Allergy Severe Shortness of Breath 07/19/16 Yes *MDRO Multi-Drug Resistant Organism Adverse Reaction Unknown MRSA 07/20/16 Yes Active Scripts Medications Dose Route/Sig Days Date Category Dose Instructions Humalog Inj (Insulin Human Lispro) 1,000 Unit/10 Ml Vial 3 Units SQ ACHS 03/18/16 Reported Max dose at bedtime:( )units; sugars< 70,(0)units ; sugars 150-199,(1)unit; sugars 200-249,(3)units; sugars 250-299,(5)units; sugars 300-349,(7)units; sugars more than 349,(9)units. Lantus Inj (Insulin Glargine) 1,000 Unit/10 Ml Vial 15 Units SQ BIDAC 03/18/16 Reported ASSESSMENT/PLAN: Seen and examined , doing better, LFTs still markedly elevated. Previously evaluated for cholecystitis and referred to tertiary center for cholecystectomy. Liver biopsy -p. PTC recommended. Continue anti biotics. It was a pleasure seeing Suni Peterson. Thank you for this consult. Entered by: Madison Lugo MD Jul 28, 2016 12:00
--- NOTE | 2016-07-28 14:53 | HHI.PR ---
Subjective Remarks FF ON s/p Septic shock. Gram negative bacteremia( Kleb pneumonia), Abdominal pain, ? acute cholangitis INC lft alk PHOS PT S/P ERCP and liver bx stable today , abd sorness the same no n/v K5.5 today , will dc ivf w k , will give Kayexalate Objective Vitals Vital Signs Date Time Temp Pulse Resp B/P Pulse Ox O2 Delivery O2 Flow Rate FiO2 07/28/16 12:00 98.1 92 18 141/90 98 07/28/16 08:00 98.3 80 18 130/82 97 07/28/16 04:00 98.3 83 16 130/77 95 07/28/16 00:00 98.5 94 16 135/87 97 07/27/16 20:00 99.0 87 13 123/74 95 07/27/16 20:00 87 07/27/16 18:00 98.8 87 15 117/75 97 07/27/16 17:30 98.8 83 20 117/74 98 07/27/16 17:15 98.2 83 23 102/66 95 I/O 07/27/16 07/27/16 07/27/16 07/28/16 07/28/16 07/28/16 07:00 15:00 23:00 07:00 15:00 23:00 Intake Total 4001 ml 745 ml 764 ml 490 ml Output Total 400 ml 925 ml 925 ml Balance 3601 ml -180 ml -161 ml 490 ml Intake Oral 120 ml IV Total 4001 ml 745 ml 644 ml 490 ml Output Urine Total 400 ml 925 ml 925 ml Stool Total 0 ml # Voids 2 # Bowel Movements 0 0 Result Diagram: 07/27/16 0627 07/28/16 0906 Imaging Last Impressions GI Procedure 07/26/16 0000 Signed Impressions: Service Date/Time: July 10:22 - CONCLUSION: ERCP as above. Feng Rod MD Cholangiopancreatography MRI 07/23/16 0000 Signed Impressions: Service Date/Time: Saturday, July 23, 2016 12:01 - CONCLUSION: 1. Abnormally dilated left intrahepatic bile ducts with caliber change near the ankit hepatis at the confluence. No mass is appreciated in this area on this examination or the recent CT of the abdomen. Therefore, etiology is nonspecific. Stricture or small mass are the differential diagnostic considerations. These ducts have a similar appearance on the August 2014 examination. Suggest correlation with the clinical history. 2. Normal right intrahepatic bile ducts and common bile duct. Gallbladder is decompressed but demonstrates severe diffuse wall edema which may be related to the portal hypertension and chronic liver disease. 3. Abnormally dilated main pancreatic duct in the tail with associated dilated sidebranches. There is abrupt caliber change in the mid body. The appearance is similar to multiple prior studies dating back to 2014. I do not see a mass as the cause and since there has been no significant change this may be related to a stricture. Segmental IPMN is also a consideration but felt less likely. Suggest attention to this at followup imaging to confirm stability. 4. The liver demonstrates features diagnostic of cirrhosis. There is a moderate volume of free fluid within the abdomen and pelvis likely related to portal hypertension. There are also small bilateral pleural effusions. Mele Yoo MD Chest X-Ray 07/19/16 1141 Signed Impressions: Service Date/Time: July 12:25 - CONCLUSION: 1. No acute cardiopulmonary findings. Farzad Morales MD Head CT 07/19/16 0000 Signed Impressions: Service Date/Time: July 16:01 - CONCLUSION: 1. No evidence of acute intracranial pathology. No masses are identified. Nestor Isabel MD Abdomen/Pelvis CT 07/19/16 0000 Signed Impressions: Service Date/Time: July 16:00 - CONCLUSION: Continued cirrhotic appearance of the liver. Some areas of scarring or volume loss throughout the right lobe similar to the previous study. No definite solid mass is seen. Status post splenectomy. No significant retroperitoneal adenopathy. Fadi Deng MD Objective Remarks GENERAL: 46 years old female in no acute distress SKIN: Warm and dry. HEAD: Normocephalic. EYES: No scleral icterus. No injection or drainage. NECK: Supple, trachea midline. No JVD or lymphadenopathy. CARDIOVASCULAR: Regular rate and rhythm without murmurs, gallops, or rubs. RESPIRATORY: Breath sounds equal bilaterally. No accessory muscle use. GASTROINTESTINAL: Abdomen soft, nondistended. Mild tenderness on palpation. MUSCULOSKELETAL: No cyanosis, or edema. A/P Assessment and Plan A/P: - s/p Septic shock. -Gram negative bacteremia( Kleb pneumonia) - Abdominal pain, ? acute cholangitis. -hyperkalemia 07/28>>dc ivf w K , kayexelate - Lactic acidemia..resolved - Mild acute kidney injury. - Elevated liver enzymes with hyperbilirubinemia. - History of primary sclerosing cholangitis and strictures. - Leukocytosis with bandemia. - Hyperglycemia with underlying history of diabetes mellitus. - History of non-Hodgkin's lymphoma status post chemo 10 years ago. - Chronic abdominal pain. - Coagulopathy likely 2md liver disease Plan: Status post ERCP 07/26/16> left hepatic tree stricture, continue antibiotic, S/P liver biopsy, gi FF Monitor neuro status closely and avoid any sedatives. CT brain: No acute process Continue with oxygen and maintain sats above 92%. Bronchodilators Monitor HR and BP maintain MAP >65 mmHg. Lactic acid resolved Monitor renal function, Is and Os and electrolyte replacement per protocol. on Albumin 25gms Q8. On full liquid diet. on Protonix 40 mg IV daily for GI prophylaxis. GI is following for ERCP today CT abdomen/pelvis: No masses, cirrhotic appearance of liver Continue with abx per ID(Zosyn) monitor for signs of infections(fever and WBC) . CXR in the ED negative for acute disease. Nasal washing negative for influenza. BC 07/19 Kleb pneumonia, GNR, follow up on BC from 07/21..NGTD Monitor CBC and coags. s/p transfusion 3 u FFP and Vitamin K 10mg IV x1 on 07/20 for INR 11 now INR 1.0 On Vitamin K 10mg daily per GI On medium SSI with Accu-Cheks q.6 hours for glycemic control. GI prophylaxis with Protonix 40 mg daily and DVT prophylaxis with SCDs only Lines: Right subclavian CVP placed 07/19 Elizabeth Mac MD Jul 28, 2016 14:53
[2016-07-28] MEDS ORDERED: SODIUM POLYSTYRENE SULFONATE SUSP 15 GM/60 ML CUP PO ONE (15:00)
[2016-07-29] VITALS (7 sets, daily range): BP systolic 123–134; BP diastolic 77–81; PULSE 72–95; RESP 18–20; TEMP 97.8–98.6; O2SAT 96–99
[2016-07-29] MEDS: AMPICILLIN-SULBACTAM INJ 3 GM in SODIUM CHLORIDE 0.9% INJ 100 ML IV SCH ×4 (01:24→19:58)
[2016-07-29] MEDS: HYDROmorphone HCL PF 1 MG/ML VIAL IV PRN ×7 (01:25→22:53)
[2016-07-29] MEDS: INSULIN NovoLIN REGULAR SUPPLEMENTAL SCALE SQ SCH ×4 (02:05→21:15)
[2016-07-29] MEDS: CHLORHEXIDINE GLUCONATE 2 % 1 PACK (2 CLOTHS) TOP SCH (04:00)
[2016-07-29 08:23] LABS: HEMATOCRIT 30.5 % (35.0-46.0); MEAN CELL VOLUME 85.7 FL (80.0-100.0); MEAN CORPUSCULAR HEMOGLOBIN 28.2 PG (27.0-34.0); MEAN CORPUSCULAR HGB CONC 32.9 % (32.0-36.0); PLATELET COUNT 377 TH/MM3 (150-450); RED BLOOD COUNT 3.56 MIL/MM3 (4.00-5.30); RED CELL DISTRIBUTION WIDTH 18.1 % (11.6-17.2); WHITE BLOOD COUNT 9.3 TH/MM3 (4.0-11.0)
[2016-07-29 08:52] LABS: HEMO FLAGS AUTO DIFF
[2016-07-29 08:55] LABS: POTASSIUM 3.8 MEQ/L (3.5-5.1)
[2016-07-29 08:58] LABS: INDIRECT BILIRUBIN 1.6 MG/DL (0.0-0.8); TOTAL BILIRUBIN ADULT 4.3 MG/DL (0.2-1.0)
[2016-07-29] MEDS: POLYETHYLENE GLYCOL 17 GM PKG PO SCH (09:00)
[2016-07-29] MEDS: PANTOPRAZOLE SODIUM 40 MG VIAL IV SCH (09:31)
[2016-07-29 10:44] LABS: BANDS 6 % (0-6); EOSINOPHILS 1 % (0-4); HOWELL-JOLLY BODIES PRESENT (NONE SEEN); MYELOCYTES 1 % (0-0); NEUTROPHIL # MANUAL DIFF 8.1 TH/MM3 (1.8-7.7); POLYS (SEG NEUTROPHILS) 80 % (16-70); TARGET CELLS 2+ (NORMAL); WBC DIFF SAMPLE 100
[2016-07-29 10:45] LABS: PLATELET ESTIMATE SMEAR NORMAL (NORMAL); PLATELET MORPHOLOGY ENLARGED (NORMAL); SCAN/DIFF FINAL DIFF MANUAL
--- NOTE | 2016-07-29 12:00 | HHI.PR ---
Subjective Remarks Patient reports persistent abdominal pain but it is controlled with the pain medication. No nausea or vomiting. Liver enzymes still elevated. Not eating much. Objective Vitals Vital Signs Date Time Temp Pulse Resp B/P Pulse Ox O2 Delivery O2 Flow Rate FiO2 07/29/16 08:00 97.8 82 18 131/80 96 07/29/16 06:24 79 07/29/16 00:00 98.1 95 18 134/81 96 07/28/16 20:00 98.3 82 18 133/83 97 07/28/16 19:29 Room Air 07/28/16 16:00 98.6 84 18 132/80 98 I/O 07/28/16 07/28/16 07/28/16 07/29/16 07/29/16 07/29/16 07:00 15:00 23:00 07:00 15:00 23:00 Intake Total 490 ml 820 ml 580 ml Balance 490 ml 820 ml 580 ml Intake Oral 720 ml 480 ml IV Total 490 ml 100 ml 100 ml # Voids 2 2 # Bowel Movements 0 1 Result Diagram: 07/29/1621 07/29/1621 Imaging Last Impressions GI Procedure 07/26/16 0000 Signed Impressions: Service Date/Time: July 10:22 - CONCLUSION: ERCP as above. Feng Rod MD Cholangiopancreatography MRI 07/23/16 0000 Signed Impressions: Service Date/Time: Saturday, July 23, 2016 12:01 - CONCLUSION: 1. Abnormally dilated left intrahepatic bile ducts with caliber change near the ankit hepatis at the confluence. No mass is appreciated in this area on this examination or the recent CT of the abdomen. Therefore, etiology is nonspecific. Stricture or small mass are the differential diagnostic considerations. These ducts have a similar appearance on the August 2014 examination. Suggest correlation with the clinical history. 2. Normal right intrahepatic bile ducts and common bile duct. Gallbladder is decompressed but demonstrates severe diffuse wall edema which may be related to the portal hypertension and chronic liver disease. 3. Abnormally dilated main pancreatic duct in the tail with associated dilated sidebranches. There is abrupt caliber change in the mid body. The appearance is similar to multiple prior studies dating back to 2015. I do not see a mass as the cause and since there has been no significant change this may be related to a stricture. Segmental IPMN is also a consideration but felt less likely. Suggest attention to this at followup imaging to confirm stability. 4. The liver demonstrates features diagnostic of cirrhosis. There is a moderate volume of free fluid within the abdomen and pelvis likely related to portal hypertension. There are also small bilateral pleural effusions. Mele Yoo MD Chest X-Ray 07/19/16 1141 Signed Impressions: Service Date/Time: July 12:25 - CONCLUSION: 1. No acute cardiopulmonary findings. Farzad Morales MD Head CT 07/19/16 0000 Signed Impressions: Service Date/Time: , July 19, 2016 16:01 - CONCLUSION: 1. No evidence of acute intracranial pathology. No masses are identified. Nestor Isabel MD Abdomen/Pelvis CT 07/19/16 0000 Signed Impressions: Service Date/Time: July 16:00 - CONCLUSION: Continued cirrhotic appearance of the liver. Some areas of scarring or volume loss throughout the right lobe similar to the previous study. No definite solid mass is seen. Status post splenectomy. No significant retroperitoneal adenopathy. Fadi Deng MD Objective Remarks GENERAL: Chronically ill-appearing female in no apparent distress. CARDIOVASCULAR: Normal rate and regular rhythm without murmurs, gallops, or rubs. RESPIRATORY: Good respiratory efforts. Breath sounds equal and clear to auscultation bilaterally. GASTROINTESTINAL: Abdomen soft, diffusely tender to palpation. Normal active bowel sounds MUSCULOSKELETAL: Extremities without cyanosis, or edema. NEURO: Alert & Oriented x4 to person, place, time, situation. Moves all ext x4 PSYCH: Appropriate mood and affect. A/P Assessment and Plan 46-year-old female: Status post septic shock, Klebsiella pneumonia bacteremia: -Antibiotics per infectious disease. Zosyn discontinued. Continue Unasyn with plans to transition to Augmentin per ID. - Repeat blood cultures no growth to date. Acute cholangitis/Liver cirrhosis: - Appreciate GI following. Liver enzymes still elevated. Status post ERCP > left hepatic tree stricture, continue antibiotic, S/P liver biopsy. - Patient was being considered for transfer to [facility]. However [facility] declined transfer as they do not believe they would do anything different. - I do note a consult by GI for invasive radiology for PTC Coagulopathy: Likely secondary to liver disease. - Monitor CBC and coags. s/p transfusion 3 u FFP and Vitamin K 10mg IV x1 on 07/20 for INR 11 now INR 1.0 On Vitamin K 10mg daily per GI GI prophylaxis: PPI. Stool softener PRN constipation. DVT PPx: SCDs. Michelle Barney MD Jul 29, 2016 12:00
--- NOTE | 2016-07-29 13:01 | HHI.GIFU ---
Subjective Remarks 46 yo female lying in bed in no apparent distress. Continues to have continuous abdominal pain. (Margo Oviedo) Objective Vitals I&O Vital Signs Date Time Temp Pulse Resp B/P Pulse Ox O2 Delivery O2 Flow Rate FiO2 07/29/16 12:00 97.8 90 18 128/77 99 07/29/16 08:00 97.8 82 18 131/80 96 07/29/16 06:24 79 07/29/16 00:00 98.1 95 18 134/81 96 07/28/16 20:00 98.3 82 18 133/83 97 07/28/16 19:29 Room Air 07/28/16 16:00 98.6 84 18 132/80 98 I/O 07/28/16 07/28/16 07/28/16 07/29/16 07/29/16 07/29/16 07:00 15:00 23:00 07:00 15:00 23:00 Intake Total 490 ml 820 ml 580 ml Balance 490 ml 820 ml 580 ml Intake Oral 720 ml 480 ml IV Total 490 ml 100 ml 100 ml # Voids 2 2 # Bowel Movements 0 1 Laboratory Laboratory Tests Test 07/28/16 07/29/16 21:06 06:21 Potassium Level 3.4 3.8 White Blood Count 9.3 Red Blood Count 3.56 Hemoglobin 10.0 Hematocrit 30.5 Mean Corpuscular Volume 85.7 Mean Corpuscular Hemoglobin 28.2 Mean Corpuscular Hemoglobin 32.9 Concent Red Cell Distribution Width 18.1 Platelet Count 377 Mean Platelet Volume 11.3 Neutrophils (%) (Auto) Lymphocytes (%) (Auto) Monocytes (%) (Auto) Eosinophils (%) (Auto) Basophils (%) (Auto) Neutrophils # (Auto) Lymphocytes # (Auto) Monocytes # (Auto) Eosinophils # (Auto) Basophils # (Auto) CBC Comment AUTO DIFF Differential Total Cells 100 Counted Neutrophils % (Manual) 80 Band Neutrophils % 6 Lymphocytes % 3 Monocytes % 9 Eosinophils % 1 Neutrophils # (Manual) 8.1 Myelocytes 1 Differential Comment FINAL DIFF MANUAL Platelet Estimate NORMAL Platelet Morphology Comment ENLARGED Target Cells 2+ Kelly-Hall Bodies PRESENT Sodium Level 139 Chloride Level 102 Carbon Dioxide Level 26.0 Anion Gap 11 Blood Urea Nitrogen 5 Creatinine 0.31 Estimat Glomerular Filtration 231 Rate Random Glucose 196 Calcium Level 8.8 Total Bilirubin 4.3 Direct Bilirubin 2.7 Indirect Bilirubin 1.6 Aspartate Amino Transf 126 (AST/SGOT) Alanine Aminotransferase 83 (ALT/SGPT) Alkaline Phosphatase 1281 Total Protein 6.1 Albumin 2.4 Imaging Last Impressions GI Procedure 07/26/16 0000 Signed Impressions: Service Date/Time: July 10:22 - CONCLUSION: ERCP as above. Feng Rod MD Cholangiopancreatography MRI 07/23/16 0000 Signed Impressions: Service Date/Time: Saturday, July 23, 2016 12:01 - CONCLUSION: 1. Abnormally dilated left intrahepatic bile ducts with caliber change near the ankit hepatis at the confluence. No mass is appreciated in this area on this examination or the recent CT of the abdomen. Therefore, etiology is nonspecific. Stricture or small mass are the differential diagnostic considerations. These ducts have a similar appearance on the August 2014 examination. Suggest correlation with the clinical history. 2. Normal right intrahepatic bile ducts and common bile duct. Gallbladder is decompressed but demonstrates severe diffuse wall edema which may be related to the portal hypertension and chronic liver disease. 3. Abnormally dilated main pancreatic duct in the tail with associated dilated sidebranches. There is abrupt caliber change in the mid body. The appearance is similar to multiple prior studies dating back to 2014. I do not see a mass as the cause and since there has been no significant change this may be related to a stricture. Segmental IPMN is also a consideration but felt less likely. Suggest attention to this at followup imaging to confirm stability. 4. The liver demonstrates features diagnostic of cirrhosis. There is a moderate volume of free fluid within the abdomen and pelvis likely related to portal hypertension. There are also small bilateral pleural effusions. Mele Yoo MD Chest X-Ray 07/19/16 1141 Signed Impressions: Service Date/Time: July 12:25 - CONCLUSION: 1. No acute cardiopulmonary findings. Farzad Morales MD Head CT 07/19/16 0000 Signed Impressions: Service Date/Time: July 16:01 - CONCLUSION: 1. No evidence of acute intracranial pathology. No masses are identified. Nestor Isabel MD Abdomen/Pelvis CT 07/19/16 0000 Signed Impressions: Service Date/Time: July 16:00 - CONCLUSION: Continued cirrhotic appearance of the liver. Some areas of scarring or volume loss throughout the right lobe similar to the previous study. No definite solid mass is seen. Status post splenectomy. No significant retroperitoneal adenopathy. Fadi Deng MD Physical Exam HEENT: PERRLA. Normocephalic; atraumatic CHEST: CTA CARDIAC: RRR ABDOMEN: Soft, nondistended, diffuse tenderness-moderate; no hepatosplenomegaly ; bowel sounds x 4 quadrants. EXTREMITIES: No clubbing, cyanosis, or edema. SKIN: Normal; no rash; + jaundice. CIRCULAR SAW FILER: No focal deficits; A&O x3. (Margo Oviedo) Assessment and Plan Plan ASSESSMENT: - Sclerosing Cholangitis/Biliary Strictures with sepsis/fever, N/V/Abdominal pain. She is currently following with [facility]. Last ERCP (04/27/16)---> primary sclerosing cholangitis, dominant stricture right intrahepatic duct, periampullary diverticulum. During that admission, IR was consulted for possible PTHC, but they did not feel that this could be done and therefore it was cancelled. Abnormal imaging of the gallbladder. Abdomen/Pelvis CT (07/19/16)----> Continued cirrhotic appearance of the liver. Some areas of scarring or volume loss throughout the right lobe similar to the previous study. No definite solid mass is seen. Status post splenectomy. No significant retroperitoneal adenopathy. MRCP (07/23/16)----> 1. Abnormally dilated left intrahepatic bile ducts with caliber change near the ankit hepatis at the confluence. No mass is appreciated in this area on this examination or the recent CT of the abdomen. Therefore, etiology is nonspecific. Stricture or small mass are the differential diagnostic considerations. These ducts have a similar appearance on the August 2014 examination. Suggest correlation with the clinical history. 2. Normal right intrahepatic bile ducts and common bile duct. Gallbladder is decompressed but demonstrates severe diffuse wall edema which may be related to the portal hypertension and chronic liver disease. 3. Abnormally dilated main pancreatic duct in the tail with associated dilated side branches. There is abrupt caliber change in the mid body. The appearance is similar to multiple prior studies dating back to 2015. I do not see a mass as the cause and since there has been no significant change this may be related to a stricture. Segmental IPMN is also a consideration but felt less likely. Suggest attention to this at followup imaging to confirm stability. 4. The liver demonstrates features diagnostic of cirrhosis. There is a moderate volume of free fluid within the abdomen and pelvis likely related to portal hypertension. There are also small bilateral pleural effusions. Bacteremia with Klebsiella, GNR. Rpt Cx with no growth in 4 days. Elevated LFTs above her baseline (T. Bilirubin , usually runs 1.5-2.5). S/P ERCP (07/26/16)-----> Ampulla C/W previous sphinctertomy, some sludge removed by balloon, free flow of bile, not able to see the left hepatic tree. No dye in that area, possible stricture, possible stricture in the left hepatic duct. ID following. Ampicillin. [facility] declined patient for transfer because they feel there is nothing they will do differently than we are doing here with regards to her care. - Sepsis, Bacteremia, Fevers, Leukocytosis. BCx with Klebsiella, GNR. ID following, abx per ID - Liver cirrhosis. S/P liver biopsy 07/27/16, results pending. S/P liver biopsy ( 2013) at that time of both her normal liver parenchyma and her liver mass. The normal liver parenchyma revealed chronic hepatitis with bridging fibrosis and cirrhosis grade 2/4, stage 3-4/4 exhibiting bile duct tubular damage and ductopenia, chronic hepaititis with bridging fibrosis. Of note, specimen #1 suggested a differential diagnosis of primary biliary cirrhosis vs. drug induced disease. The histopathology did not suggest that of primary sclerosing cholangitis. The liver mass suggested chronic hepatitis with bridging fibrosis 2/4, stage III/4. Of note, she was evaluated by [facility], but states she was told that her MELD score was too low to be considered for liver transplant. AFP 9.5, Ceruloplasmin pending. MARCELLO negative, ASMA negative, AMA pending, Ferritin 159, Iron sat 17.9% - Hx of abnormal imaging of the gallbladder. HIDA (04/27/16)----> Nonvisualization of the gallbladder. ADDENDUM: Delayed imaging of the abdomen documents an ovoid area of activity in the right upper quadrant in the expected location of the gallbladder based on prior cross-sectional imaging studies. Delayed visualization the gallbladder should exclude complete cystic duct obstruction. However, based on prior imaging studies, the gallbladder demonstrated severe diffuse wall edema. S/P GS evaluation during last admission who did not feel this was contributing to her symptoms and did not recommend cholecystectomy. No improvement in liver enzymes, which have increased. T. Bili 4.3, AST 126, ALT 83, Alk Phosph 1281. AFP 9.5, Hepatitis panel negative, alpha 1 antitrypsin 291, ceruloplasmin pending, marcello negative, asma negative, ama pending - Hx of non-Hodgkin's lymphoma and completed chemotherapy in 2005, but has had an ongoing problem with biliary strictures and sclerosing cholangitis. Plan: - Liver biopsy pending - Cont. PPI - Cont. Abx - Cont. Miralax - Supportive care - Monitor labs - [facility] declined patient because they do not feel that they would do anything different with regards to her care - Further recommendations to follow based on results of above. Pt seen and examined by Dr. Jarvis and myself and this note is written on his behalf (Margo Oviedo) Physician Comments Seen and examined with [facility], still with a lot of upper abdominal pain. Liver biopsy -p. P.T.C requested for tomorrow. (Madison Jarvis MD) Margo Oviedo Jul 29, 2016 13:01 Madison Jarvis MD Jul 29, 2016 15:13
[2016-07-30] VITALS (7 sets, daily range): BP systolic 119–142; BP diastolic 67–87; PULSE 74–102; RESP 12–20; TEMP 97.8–99.5; O2SAT 96–100
[2016-07-30] MEDS: HYDROmorphone HCL PF 1 MG/ML VIAL IV PRN ×7 (02:00→21:41)
[2016-07-30] MEDS: AMPICILLIN-SULBACTAM INJ 3 GM in SODIUM CHLORIDE 0.9% INJ 100 ML IV SCH ×4 (02:01→21:41)
[2016-07-30] MEDS: INSULIN NovoLIN REGULAR SUPPLEMENTAL SCALE SQ SCH ×4 (02:52→21:57)
[2016-07-30] MEDS: CHLORHEXIDINE GLUCONATE 2 % 1 PACK (2 CLOTHS) TOP SCH (04:00)
[2016-07-30 07:13] LABS: POTASSIUM 3.2 MEQ/L (3.5-5.1)
[2016-07-30 07:19] LABS: HEMATOCRIT 30.6 % (35.0-46.0); MEAN CELL VOLUME 83.6 FL (80.0-100.0); MEAN CORPUSCULAR HGB CONC 33.5 % (32.0-36.0); PLATELET COUNT 311 TH/MM3 (150-450); RED BLOOD COUNT 3.66 MIL/MM3 (4.00-5.30); RED CELL DISTRIBUTION WIDTH 18.2 % (11.6-17.2); REVIEW FLAG FINAL; WHITE BLOOD COUNT 7.4 TH/MM3 (4.0-11.0)
[2016-07-30 07:30] LABS: INDIRECT BILIRUBIN 1.4 MG/DL (0.0-0.8); TOTAL BILIRUBIN ADULT 4.1 MG/DL (0.2-1.0)
[2016-07-30] MEDS: PANTOPRAZOLE SODIUM 40 MG VIAL IV SCH (08:27)
[2016-07-30] MEDS: POLYETHYLENE GLYCOL 17 GM PKG PO SCH (09:00)
--- NOTE | 2016-07-30 14:40 | RADRPT ---
EXAM DATE/TIME: 07/30/2016 13:21 [facility] COMPARISON: CT ABDOMEN & PELVIS W CONTRAST, June 13, 2016, 19:32. GI LAB ERCP, July 26, 2016, 10:22. MRCP W /O CONTRAST, July 23, 2016, 12:01. INDICATIONS : Obstruction. Abdominal pain. MEDICAL HISTORY : Lymphoma. SURGICAL HISTORY : Splenectomy. Liver biopsy. ENCOUNTER: Subsequent ACUITY: 1 week PAIN SCORE: 3/10 LOCATION: Abdomen TECHNIQUE: Multiplanar, multisequence magnetic resonance imaging of the abdomen was performed. High-resolution 3D dataset was utilized to reconstruct maximum-intensity projection (MIP) images. FINDINGS: There is very prominent hypertrophy of the left lobe and atrophy of the right lobe. There is dilatat ion of the biliary ducts in the left lobe measuring up to 6 mm. There are filling defects throughout the left system. On the prior CT examination, the patient had air in the biliary system. There barrett ears to be narrowing of the central biliary ducts at the ankit hepatis region. Dilatation of the rig ht intrahepatic biliary ducts is not clearly seen. The common bile duct is not well visualized. The re is a 0.6 cm cyst at the superior aspect of the liver between the right and left lobe. There does appear to be some dilatation of the pancreatic duct with some side-branch filling. This co nfiguration is unchanged. It appears the pancreatic head and uncinate process is displaced to the le ft secondary to the enlarged liver. The spleen is not seen. The kidneys appear prominent measuring 14.7 cm on the left and 13.2 cm on the right in near linear dimension. No hydronephrosis is seen. CONCLUSION: 1. Dilatation of the left intrahepatic biliary ducts with multiple filling defects likely related to air. There does appear to be narrowing of the central biliary ducts. The common bile duct is not c learly recognizable. The configuration at the left ducts appears similar to the prior examination. 2. Very prominent hypertrophy of the left lobe and atrophy of the right lobe likely secondary to cir rhosis. The liver does appear enlarged. Mele Cuba MD on July 30, 2016 at 14:21 Board Certified Radiologist. This report was verified electronically.
--- NOTE | 2016-07-30 16:43 | HHI.PR ---
Subjective Remarks Patient just had MRCP. She continues to have persistent diffuse abdominal pain. No nausea or vomiting currently. Objective Vitals Vital Signs Date Time Temp Pulse Resp B/P Pulse Ox O2 Delivery O2 Flow Rate FiO2 07/30/16 12:00 99.2 100 12 142/82 100 07/30/16 10:05 Room Air 07/30/16 08:00 98.1 84 12 126/87 96 07/30/16 08:00 81 07/30/16 04:00 98.0 79 18 133/79 97 07/30/16 00:00 97.8 74 18 132/83 98 07/29/16 20:03 Room Air 07/29/16 20:00 85 07/29/16 20:00 98.3 82 20 123/81 99 I/O 07/29/16 07/29/16 07/29/16 07/30/16 07/30/16 07/30/16 07:00 15:00 23:00 07:00 15:00 23:00 Intake Total 580 ml 685 ml 240 ml 240 ml Balance 580 ml 685 ml 240 ml 240 ml Intake Oral 480 ml 480 ml 240 ml 240 ml IV Total 100 ml 205 ml # Voids 2 4 2 3 # Bowel Movements 1 1 0 Result Diagram: 07/30/16 0530 07/30/16 0530 Objective Remarks GENERAL: Chronically ill-appearing female in no apparent distress. CARDIOVASCULAR: Normal rate and regular rhythm without murmurs, gallops, or rubs. RESPIRATORY: Good respiratory efforts. Breath sounds equal and clear to auscultation bilaterally. GASTROINTESTINAL: Abdomen soft, diffusely tender to palpation. Normal active bowel sounds MUSCULOSKELETAL: Extremities without cyanosis, or edema. NEURO: Alert & Oriented x4 to person, place, time, situation. Moves all ext x4 PSYCH: Appropriate mood and affect. A/P Assessment and Plan 46-year-old female: Status post septic shock, Klebsiella pneumonia bacteremia: -Antibiotics per infectious disease. Zosyn discontinued. Continue Unasyn with plans to transition to Augmentin per ID. - Repeat blood cultures no growth to date. Acute cholangitis/Liver cirrhosis: - Appreciate GI following. Liver enzymes still elevated. Status post ERCP > left hepatic tree stricture, continue antibiotic, S/P liver biopsy. - Patient was being [facility] to [facility]. However [facility] declined transfer as they do not believe they would do anything different. -MRCP today per GI. Coagulopathy: Likely secondary to liver disease. - Monitor CBC and coags. s/p transfusion 3 u FFP and Vitamin K 10mg IV x1 on 07/20 for INR 11 now INR 1.0 On Vitamin K 10mg daily per GI GI prophylaxis: PPI. Stool softener PRN constipation. DVT PPx: SCDs. Michelle Barney MD Jul 30, 2016 16:43
--- NOTE | 2016-07-30 17:14 | HHI.GIFU ---
Subjective Remarks Resting in bed, feels the same, no nausea (Sangeeta Mcdonald) Objective Vitals I&O Vital Signs Date Time Temp Pulse Resp B/P Pulse Ox O2 Delivery O2 Flow Rate FiO2 07/30/16 12:00 99.2 100 12 142/82 100 07/30/16 10:05 Room Air 07/30/16 08:00 98.1 84 12 126/87 96 07/30/16 08:00 81 07/30/16 04:00 98.0 79 18 133/79 97 07/30/16 00:00 97.8 74 18 132/83 98 07/29/16 20:03 Room Air 07/29/16 20:00 85 07/29/16 20:00 98.3 82 20 123/81 99 I/O 07/29/16 07/29/16 07/29/16 07/30/16 07/30/16 07/30/16 07:00 15:00 23:00 07:00 15:00 23:00 Intake Total 580 ml 685 ml 240 ml 240 ml Balance 580 ml 685 ml 240 ml 240 ml Intake Oral 480 ml 480 ml 240 ml 240 ml IV Total 100 ml 205 ml # Voids 2 4 2 3 # Bowel Movements 1 1 0 Laboratory Laboratory Tests Test 07/30/16 05:30 White Blood Count 7.4 Red Blood Count 3.66 Hemoglobin 10.2 Hematocrit 30.6 Mean Corpuscular Volume 83.6 Mean Corpuscular Hemoglobin 28.0 Mean Corpuscular Hemoglobin 33.5 Concent Red Cell Distribution Width 18.2 Platelet Count 311 Mean Platelet Volume 10.7 Hematology Comments Sodium Level 138 Potassium Level 3.2 Chloride Level 100 Carbon Dioxide Level 26.0 Anion Gap 12 Blood Urea Nitrogen 7 Creatinine 0.38 Estimat Glomerular Filtration 182 Rate Random Glucose 258 Calcium Level 8.4 Total Bilirubin 4.1 Direct Bilirubin 2.7 Indirect Bilirubin 1.4 Aspartate Amino Transf 129 (AST/SGOT) Alanine Aminotransferase 89 (ALT/SGPT) Alkaline Phosphatase 1322 Total Protein 6.0 Albumin 2.2 Imaging Last Impressions GI Procedure 07/26/16 0000 Signed Impressions: Service Date/Time: July 10:22 - CONCLUSION: ERCP as above. Feng Rod MD Cholangiopancreatography MRI 07/23/16 0000 Signed Impressions: Service Date/Time: Saturday, July 23, 2016 12:01 - CONCLUSION: 1. Abnormally dilated left intrahepatic bile ducts with caliber change near the ankit hepatis at the confluence. No mass is appreciated in this area on this examination or the recent CT of the abdomen. Therefore, etiology is nonspecific. Stricture or small mass are the differential diagnostic considerations. These ducts have a similar appearance on the August 2014 examination. Suggest correlation with the clinical history. 2. Normal right intrahepatic bile ducts and common bile duct. Gallbladder is decompressed but demonstrates severe diffuse wall edema which may be related to the portal hypertension and chronic liver disease. 3. Abnormally dilated main pancreatic duct in the tail with associated dilated sidebranches. There is abrupt caliber change in the mid body. The appearance is similar to multiple prior studies dating back to 2014. I do not see a mass as the cause and since there has been no significant change this may be related to a stricture. Segmental IPMN is also a consideration but felt less likely. Suggest attention to this at followup imaging to confirm stability. 4. The liver demonstrates features diagnostic of cirrhosis. There is a moderate volume of free fluid within the abdomen and pelvis likely related to portal hypertension. There are also small bilateral pleural effusions. Mele Yoo MD Chest X-Ray 07/19/16 1141 Signed Impressions: Service Date/Time: July 12:25 - CONCLUSION: 1. No acute cardiopulmonary findings. Farzad Morales MD Head CT 07/19/16 0000 Signed Impressions: Service Date/Time: July 16:01 - CONCLUSION: 1. No evidence of acute intracranial pathology. No masses are identified. Nesotr Isabel MD Abdomen/Pelvis CT 07/19/16 0000 Signed Impressions: Service Date/Time: July 16:00 - CONCLUSION: Continued cirrhotic appearance of the liver. Some areas of scarring or volume loss throughout the right lobe similar to the previous study. No definite solid mass is seen. Status post splenectomy. No significant retroperitoneal adenopathy. Fadi Deng MD Physical Exam Reported Meds & Active Scripts Active Reported Humalog Inj (Insulin Human Lispro) 1,000 Unit/10 Ml Vial 3 Units SQ ACHS Max dose at bedtime:( )units; sugars< 70,(0)units; sugars 150-199,(1)unit; sugars 200-249,(3)units; sugars 250-299,(5)units; sugars 300-349,(7)units; sugars more than 349,(9)units. Lantus Inj (Insulin Glargine) 1,000 Unit/10 Ml Vial 15 Units SQ BIDAC HEENT: PERRLA. Normocephalic; atraumatic CHEST: CTA CARDIAC: RRR ABDOMEN: Soft, nondistended, diffuse tenderness-moderate; no hepatosplenomegaly ; bowel sounds x 4 quadrants. EXTREMITIES: No clubbing, cyanosis, or edema. SKIN: Normal; no rash; + jaundice. HOME LIGHTING ADVISER: No focal deficits; A&O x3. (Sangeeta Mcdonald) Assessment and Plan Plan ASSESSMENT: - Sclerosing Cholangitis/Biliary Strictures with sepsis/fever, N/V/Abdominal pain. She is currently following with [facility]. Last ERCP (04/27/16)---> primary sclerosing cholangitis, dominant stricture right intrahepatic duct, periampullary diverticulum. During that admission, IR was consulted for possible PTHC, but they did not feel that this could be done and therefore it was cancelled. Abnormal imaging of the gallbladder. Abdomen/Pelvis CT (07/19/16)----> Continued cirrhotic appearance of the liver. Some areas of scarring or volume loss throughout the right lobe similar to the previous study. No definite solid mass is seen. Status post splenectomy. No significant retroperitoneal adenopathy. MRCP (07/23/16)----> 1. Abnormally dilated left intrahepatic bile ducts with caliber change near the ankit hepatis at the confluence. No mass is appreciated in this area on this examination or the recent CT of the abdomen. Therefore, etiology is nonspecific. Stricture or small mass are the differential diagnostic considerations. These ducts have a similar appearance on the August 2014 examination. Suggest correlation with the clinical history. 2. Normal right intrahepatic bile ducts and common bile duct. Gallbladder is decompressed but demonstrates severe diffuse wall edema which may be related to the portal hypertension and chronic liver disease. 3. Abnormally dilated main pancreatic duct in the tail with associated dilated side branches. There is abrupt caliber change in the mid body. The appearance is similar to multiple prior studies dating back to 2015. I do not see a mass as the cause and since there has been no significant change this may be related to a stricture. Segmental IPMN is also a consideration but felt less likely. Suggest attention to this at followup imaging to confirm stability. 4. The liver demonstrates features diagnostic of cirrhosis. There is a moderate volume of free fluid within the abdomen and pelvis likely related to portal hypertension. There are also small bilateral pleural effusions. Bacteremia with Klebsiella, GNR. Rpt Cx with no growth in 4 days. Elevated LFTs above her baseline (T. Bilirubin , usually runs 1.5-2.5). S/P ERCP (07/26/16)-----> Ampulla C/W previous sphinctertomy, some sludge removed by balloon, free flow of bile, not able to see the left hepatic tree. No dye in that area, possible stricture, possible stricture in the left hepatic duct. ID following. Ampicillin. [facility] declined patient for transfer because they feel there is nothing they will do differently than we are doing here with regards to her care. - Sepsis, Bacteremia, Fevers, Leukocytosis. BCx with Klebsiella, GNR. ID following, abx per ID - Liver cirrhosis. S/P liver biopsy 07/27/16, results pending. S/P liver biopsy ( 2013) at that time of both her normal liver parenchyma and her liver mass. The normal liver parenchyma revealed chronic hepatitis with bridging fibrosis and cirrhosis grade 2/4, stage 3-4/4 exhibiting bile duct tubular damage and ductopenia, chronic hepaititis with bridging fibrosis. Of note, specimen #1 suggested a differential diagnosis of primary biliary cirrhosis vs. drug induced disease. The histopathology did not suggest that of primary sclerosing cholangitis. The liver mass suggested chronic hepatitis with bridging fibrosis 2/4, stage III/4. Of note, she was evaluated by [facility], but states she was told that her MELD score was too low to be considered for liver transplant. AFP 9.5, Ceruloplasmin pending. MARCELLO negative, ASMA negative, AMA pending, Ferritin 159, Iron sat 17.9% - Hx of abnormal imaging of the gallbladder. HIDA (04/27/16)----> Nonvisualization of the gallbladder. ADDENDUM: Delayed imaging of the abdomen documents an ovoid area of activity in the right upper quadrant in the expected location of the gallbladder based on prior cross-sectional imaging studies. Delayed visualization the gallbladder should exclude complete cystic duct obstruction. However, based on prior imaging studies, the gallbladder demonstrated severe diffuse wall edema. S/P GS evaluation during last admission who did not feel this was contributing to her symptoms and did not recommend cholecystectomy. No improvement in liver enzymes, which have increased. T. Bili 4.1, AST 129, ALT 9, Alk Phosph 1322. AFP 9.5, Hepatitis panel negative, alpha 1 antitrypsin 291, ceruloplasmin negative marcello negative, asma negative, ama pending - Hx of non-Hodgkin's lymphoma and completed chemotherapy in 2005, but has had an ongoing problem with biliary strictures and sclerosing cholangitis. 07/30/16--Had MRCP today, dilation of left intrahepatic biliary ducts with multiple filling defects likely related to air. Common bile duct not clearly recognizable, Prominent right and left liver lobes likely secondary to cirrhosis.Plan is for hepatic duct drain tomorrow with IR Plan: - Liver biopsy pending -Ir to do hepatic duct drain tomorrow - Cont. PPI - Cont. Abx - Cont. Miralax - Supportive care - Monitor labs - [facility] declined patient because they do not feel that they would do anything different with regards to her care - Further recommendations to follow based on results of above. Pt seen and examined by Dr. Jarvis and myself and this note is written on his behalf (Sangeeta Mcdonald) Physician Comments Seen and examined with HEALTH PROGRAM DIRECTOR, PTC on hold after Discussion with Dr. Dillard. Repeat MRCP ordered. Left IHD not draining well more difficult to reach by PTC. My last ERCP showed Tight stricture in Left system too high to place biliary stent. Bilirubin twice baseline as well as ALK Phos above baseline. Continue antibiotics. (Madison Jarvis MD) Sangeeta Mcdonald Jul 30, 2016 17:14 Madison Jarvis MD Jul 30, 2016 18:53
[2016-07-31] VITALS (10 sets, daily range): BP systolic 102–154; BP diastolic 64–86; PULSE 83–133; RESP 12–24; TEMP 97.8–102.8; O2SAT 95–99
[2016-07-31] MEDS: AMPICILLIN-SULBACTAM INJ 3 GM in SODIUM CHLORIDE 0.9% INJ 100 ML IV SCH ×4 (00:49→19:57)
[2016-07-31] MEDS: HYDROmorphone HCL PF 1 MG/ML VIAL IV PRN ×6 (00:49→19:57)
[2016-07-31] MEDS: INSULIN NovoLIN REGULAR SUPPLEMENTAL SCALE SQ SCH ×4 (03:15→20:02)
[2016-07-31 03:36] LABS: HEMATOCRIT 30.5 % (35.0-46.0); MEAN CELL VOLUME 85.4 FL (80.0-100.0); MEAN CORPUSCULAR HEMOGLOBIN 27.6 PG (27.0-34.0); MEAN CORPUSCULAR HGB CONC 32.3 % (32.0-36.0); PLATELET COUNT 398 TH/MM3 (150-450); RED BLOOD COUNT 3.58 MIL/MM3 (4.00-5.30); REVIEW FLAG FINAL; WHITE BLOOD COUNT 11.5 TH/MM3 (4.0-11.0)
[2016-07-31 03:49] LABS: MITOCHONDRIAL ABS LESS THAN 20.0 U (())
[2016-07-31] MEDS: CHLORHEXIDINE GLUCONATE 2 % 1 PACK (2 CLOTHS) TOP SCH (04:00)
[2016-07-31 04:17] LABS: BICARBONATE 26.9 MEQ/L (21.0-32.0); INDIRECT BILIRUBIN 1.1 MG/DL (0.0-0.8); TOTAL BILIRUBIN ADULT 4.6 MG/DL (0.2-1.0)
[2016-07-31 04:34] LABS: POTASSIUM 2.9 MEQ/L (3.5-5.1)
[2016-07-31] MEDS ORDERED: POTASSIUM CHLORIDE 10 MEQ CONTROLLED RELEASE TAB PO ONE (05:00)
[2016-07-31 05:09] LABS: MAGNESIUM 1.6 MG/DL (1.5-2.5)
[2016-07-31] MEDS ORDERED: ONDANSETRON HCL 4 MG/2 ML VIAL IV PUSH ONE (07:28)
[2016-07-31] MEDS ORDERED: PROPOFOL 200 MG/20 ML AMP IV ONE (07:28)
[2016-07-31] MEDS: PANTOPRAZOLE SODIUM 40 MG VIAL IV SCH (07:31)
[2016-07-31] MEDS: POLYETHYLENE GLYCOL 17 GM PKG PO SCH (09:00)
--- NOTE | 2016-07-31 14:05 | PD.RAD ---
Post Procedure Progress Note Pre Procedure Diagnosis: (1) Liver disease, chronic, with cirrhosis (2) Sclerosing cholangitis Post Procedure Diagnosis: (1) Liver disease, chronic, with cirrhosis (2) Sclerosing cholangitis Procedure Date: Jul 31, 2016 Supervising Radiologist: Adeel Esteban Proceduralist/Assist: Vidhya Bailey, RT(R), Kathleen Garcias RT(R)() Anesthesia: General, Local Plan of Activity Patient to Unit: Nursing Unit Patient Condition: Fair See PACS Report for procedural detail/treatment Drainage Procedure Procedure 1 Imaging Guidance: Fluoroscopy Side: Left Procedure Type: Biliary Drainage Procedure: Placement Urdu: 8 Fluid Description: Bilious Adeel Esteban MD Jul 31, 2016 14:05
[2016-07-31] MEDS ORDERED: DO NOT ADM ANY ANTICOAGULANT DRUGS XX PRN (14:06)
[2016-07-31] MEDS ORDERED: IOHEXOL 350 MG/ML 50 ML BTL (for RAD DIAG) ONE (14:08)
[2016-07-31] MEDS ORDERED: MIDAZOLAM HCL 2 MG/2 ML VIAL ONE (14:14)
[2016-07-31] MEDS ORDERED: *HYDROmorphone PF 1 MG VIAL PERIprocedural Use ONLY ONE (14:33)
--- NOTE | 2016-07-31 16:02 | HHI.PR ---
Subjective Remarks Patient underwent biliary drain placement today. She is complaining of persistent pain. She wants to advance diet. No nausea or vomiting. Objective Vitals Vital Signs Date Time Temp Pulse Resp B/P Pulse Ox O2 Delivery O2 Flow Rate FiO2 07/31/16 15:30 97.5 79 15 116/80 97 Nasal Cannula 2 07/31/16 15:15 78 14 118/68 98 Nasal Cannula 2 07/31/16 15:00 77 14 105/72 97 Nasal Cannula 2 07/31/16 14:45 73 12 96/63 95 Nasal Cannula 2 07/31/16 14:30 84 15 108/82 95 Nasal Cannula 2 07/31/16 14:15 74 15 115/80 97 Nasal Cannula 2 07/31/16 14:05 97.6 85 14 130/88 99 Simple Mask 6 07/31/16 09:36 83 07/31/16 09:00 Room Air 07/31/16 08:00 98.5 84 12 102/67 95 07/31/16 05:28 97.8 104 22 124/78 99 07/31/16 00:44 98.5 109 20 129/77 97 07/30/16 22:38 98.4 102 20 128/78 98 07/30/16 21:00 Room Air 07/30/16 20:00 99 I/O 07/30/16 07/30/16 07/30/16 07/31/16 07/31/16 07/31/16 07:00 15:00 23:00 07:00 15:00 23:00 Intake Total 240 ml 0 ml 520 ml 0 ml 400 ml Balance 240 ml 0 ml 520 ml 0 ml 400 ml Intake Oral 240 ml 0 ml 420 ml 0 ml IV Total 100 ml Other 400 ml # Voids 3 5 2 # Bowel Movements 0 0 1 0 Result Diagram: 07/31/16 0322 07/31/16 0322 Objective Remarks GENERAL: Chronically ill-appearing female appear to be in pain. CARDIOVASCULAR: Normal rate and regular rhythm without murmurs, gallops, or rubs. RESPIRATORY: Good respiratory efforts. Breath sounds equal and clear to auscultation bilaterally. GASTROINTESTINAL: Abdomen soft, diffusely tender to palpation. Normal active bowel sounds. There is a drain in place mid abdomen draining bilious fluid. MUSCULOSKELETAL: Extremities without cyanosis, or edema. NEURO: Alert & Oriented x4 to person, place, time, situation. Moves all ext x4 PSYCH: Appropriate mood and affect. A/P Assessment and Plan 46-year-old female: Status post septic shock, Klebsiella pneumonia bacteremia: -Antibiotics per infectious disease. Zosyn discontinued. Continue Unasyn with plans to transition to Augmentin per ID. - Repeat blood cultures no growth to date. Acute cholangitis/Liver cirrhosis: - Appreciate GI following. Liver enzymes still elevated. Status post ERCP > left hepatic tree stricture, continue antibiotic, S/P liver biopsy. - Patient was being considered for transfer to [facility]. However [facility] declined transfer as they do not believe they would do anything different. - S/P biliary drain placement today by IR per GI recs - Advance to full liquid diet as tolerated. Coagulopathy: Likely secondary to liver disease. - Monitor CBC and coags. s/p transfusion 3 u FFP and Vitamin K 10mg IV x1 on 07/20 for INR 11 now INR 1.0 On Vitamin K 10mg daily per GI GI prophylaxis: PPI. Stool softener PRN constipation. DVT PPx: SCDs. Michelle Barney MD Jul 31, 2016 16:02
--- NOTE | 2016-07-31 16:38 | HHI.GIFU ---
Subjective Remarks Just returned from having biliary drain inserted. Having 10/10 pain in epigastric area. Drain bag has bile colored drainage, denies N/V. LFTs trending up, H&h 9.9/30.5 (Sangeeta Mcdonald) Objective Vitals I&O Vital Signs Date Time Temp Pulse Resp B/P Pulse Ox O2 Delivery O2 Flow Rate FiO2 07/31/16 15:30 97.5 79 15 116/80 97 Nasal Cannula 2 07/31/16 15:15 78 14 118/68 98 Nasal Cannula 2 07/31/16 15:00 77 14 105/72 97 Nasal Cannula 2 07/31/16 14:45 73 12 96/63 95 Nasal Cannula 2 07/31/16 14:30 84 15 108/82 95 Nasal Cannula 2 07/31/16 14:15 74 15 115/80 97 Nasal Cannula 2 07/31/16 14:05 97.6 85 14 130/88 99 Simple Mask 6 07/31/16 09:36 83 07/31/16 09:00 Room Air 07/31/16 08:00 98.5 84 12 102/67 95 07/31/16 05:28 97.8 104 22 124/78 99 07/31/16 00:44 98.5 109 20 129/77 97 07/30/16 22:38 98.4 102 20 128/78 98 07/30/16 21:00 Room Air 07/30/16 20:00 99 I/O 07/30/16 07/30/16 07/30/16 07/31/16 07/31/16 07/31/16 07:00 15:00 23:00 07:00 15:00 23:00 Intake Total 240 ml 0 ml 520 ml 0 ml 400 ml 125 ml Output Total 10 ml Balance 240 ml 0 ml 520 ml 0 ml 400 ml 115 ml Intake Oral 240 ml 0 ml 420 ml 0 ml IV Total 100 ml 125 ml Other 400 ml Drainage Total 10 ml # Voids 3 5 2 # Bowel Movements 0 0 1 0 Laboratory Laboratory Tests Test 07/31/16 07/31/16 03:20 03:22 Blood Type O NEGATIVE Antibody Screen NEGATIVE White Blood Count 11.5 Red Blood Count 3.58 Hemoglobin 9.9 Hematocrit 30.5 Mean Corpuscular Volume 85.4 Mean Corpuscular Hemoglobin 27.6 Mean Corpuscular Hemoglobin 32.3 Concent Red Cell Distribution Width 19.0 Platelet Count 398 Mean Platelet Volume 10.3 Sodium Level 140 Potassium Level 2.9 Chloride Level 102 Carbon Dioxide Level 26.9 Anion Gap 11 Blood Urea Nitrogen 7 Creatinine 0.31 Estimat Glomerular Filtration 231 Rate Random Glucose 131 Calcium Level 8.3 Magnesium Level 1.6 Total Bilirubin 4.6 Direct Bilirubin 3.5 Indirect Bilirubin 1.1 Aspartate Amino Transf 144 (AST/SGOT) Alanine Aminotransferase 98 (ALT/SGPT) Alkaline Phosphatase 1400 Total Protein 6.1 Albumin 2.3 Imaging Last Impressions Cholangiopancreatography MRI 07/30/16 0000 Signed Impressions: Service Date/Time: Saturday, July 30, 2016 13:21 - CONCLUSION: 1. Dilatation of the left intrahepatic biliary ducts with multiple filling defects likely related to air. There does appear to be narrowing of the central biliary ducts. The common bile duct is not clearly recognizable. The configuration at the left ducts appears similar to the prior examination. 2. Very prominent hypertrophy of the left lobe and atrophy of the right lobe likely secondary to cirrhosis. The liver does appear enlarged. Mele Cuba MD GI Procedure 07/26/16 0000 Signed Impressions: Service Date/Time: July 10:22 - CONCLUSION: ERCP as above. Feng Rod MD Chest X-Ray 07/19/16 1141 Signed Impressions: Service Date/Time: July 12:25 - CONCLUSION: 1. No acute cardiopulmonary findings. Farzad Morales MD Head CT 07/19/16 0000 Signed Impressions: Service Date/Time: July 16:01 - CONCLUSION: 1. No evidence of acute intracranial pathology. No masses are identified. Nestor Isabel MD Abdomen/Pelvis CT 07/19/16 0000 Signed Impressions: Service Date/Time: July 16:00 - CONCLUSION: Continued cirrhotic appearance of the liver. Some areas of scarring or volume loss throughout the right lobe similar to the previous study. No definite solid mass is seen. Status post splenectomy. No significant retroperitoneal adenopathy. Fadi Deng MD Physical Exam Reported Meds & Active Scripts Active Reported Humalog Inj (Insulin Human Lispro) 1,000 Unit/10 Ml Vial 3 Units SQ ACHS Max dose at bedtime:( )units; sugars< 70,(0)units; sugars 150-199,(1)unit; sugars 200-249,(3)units; sugars 250-299,(5)units; sugars 300-349,(7)units; sugars more than 349,(9)units. Lantus Inj (Insulin Glargine) 1,000 Unit/10 Ml Vial 15 Units SQ BIDAC HEENT: PERRLA. Normocephalic; atraumatic CHEST: CTA CARDIAC: RRR ABDOMEN: Soft, nondistended, diffuse tenderness-moderate; no hepatosplenomegaly ; bowel sounds x 4 quadrants. EXTREMITIES: No clubbing, cyanosis, or edema. SKIN: Normal; no rash; + jaundice. MECHANICAL TEST ENGINEER: No focal deficits; A&O x3. (Sangeeta Mcdonald) Assessment and Plan Plan ASSESSMENT: - Sclerosing Cholangitis/Biliary Strictures with sepsis/fever, N/V/Abdominal pain. She is currently following with [facility]. Last ERCP (04/27/16)---> primary sclerosing cholangitis, dominant stricture right intrahepatic duct, periampullary diverticulum. During that admission, IR was consulted for possible PTHC, but they did not feel that this could be done and therefore it was cancelled. Abnormal imaging of the gallbladder. Abdomen/Pelvis CT (07/19/16)----> Continued cirrhotic appearance of the liver. Some areas of scarring or volume loss throughout the right lobe similar to the previous study. No definite solid mass is seen. Status post splenectomy. No significant retroperitoneal adenopathy. MRCP (07/23/16)----> 1. Abnormally dilated left intrahepatic bile ducts with caliber change near the ankit hepatis at the confluence. No mass is appreciated in this area on this examination or the recent CT of the abdomen. Therefore, etiology is nonspecific. Stricture or small mass are the differential diagnostic considerations. These ducts have a similar appearance on the August 2014 examination. Suggest correlation with the clinical history. 2. Normal right intrahepatic bile ducts and common bile duct. Gallbladder is decompressed but demonstrates severe diffuse wall edema which may be related to the portal hypertension and chronic liver disease. 3. Abnormally dilated main pancreatic duct in the tail with associated dilated side branches. There is abrupt caliber change in the mid body. The appearance is similar to multiple prior studies dating back to 2015. I do not see a mass as the cause and since there has been no significant change this may be related to a stricture. Segmental IPMN is also a consideration but felt less likely. Suggest attention to this at followup imaging to confirm stability. 4. The liver demonstrates features diagnostic of cirrhosis. There is a moderate volume of free fluid within the abdomen and pelvis likely related to portal hypertension. There are also small bilateral pleural effusions. Bacteremia with Klebsiella, GNR. Rpt Cx with no growth in 4 days. Elevated LFTs above her baseline (T. Bilirubin , usually runs 1.5-2.5). S/P ERCP (07/26/16)-----> Ampulla C/W previous sphinctertomy, some sludge removed by balloon, free flow of bile, not able to see the left hepatic tree. No dye in that area, possible stricture, possible stricture in the left hepatic duct. ID following. Ampicillin. [facility] declined patient for transfer because they feel there is nothing they will do differently than we are doing here with regards to her care. - Sepsis, Bacteremia, Fevers, Leukocytosis. BCx with Klebsiella, GNR. ID following, abx per ID - Liver cirrhosis. S/P liver biopsy 07/27/16, results pending. S/P liver biopsy ( 2013) at that time of both her normal liver parenchyma and her liver mass. The normal liver parenchyma revealed chronic hepatitis with bridging fibrosis and cirrhosis grade 2/4, stage 3-4/4 exhibiting bile duct tubular damage and ductopenia, chronic hepaititis with bridging fibrosis. Of note, specimen #1 suggested a differential diagnosis of primary biliary cirrhosis vs. drug induced disease. The histopathology did not suggest that of primary sclerosing cholangitis. The liver mass suggested chronic hepatitis with bridging fibrosis 2/4, stage III/4. Of note, she was evaluated by [facility], but states she was told that her MELD score was too low to be considered for liver transplant. AFP 9.5, Ceruloplasmin pending. MARCELLO negative, ASMA negative, AMA pending, Ferritin 159, Iron sat 17.9% - Hx of abnormal imaging of the gallbladder. HIDA (04/27/16)----> Nonvisualization of the gallbladder. ADDENDUM: Delayed imaging of the abdomen documents an ovoid area of activity in the right upper quadrant in the expected location of the gallbladder based on prior cross-sectional imaging studies. Delayed visualization the gallbladder should exclude complete cystic duct obstruction. However, based on prior imaging studies, the gallbladder demonstrated severe diffuse wall edema. S/P GS evaluation during last admission who did not feel this was contributing to her symptoms and did not recommend cholecystectomy. No improvement in liver enzymes, which have increased. T. Bili 4.1, AST 129, ALT 9, Alk Phosph 1322. AFP 9.5, Hepatitis panel negative, alpha 1 antitrypsin 291, ceruloplasmin negative marcello negative, asma negative, ama pending - Hx of non-Hodgkin's lymphoma and completed chemotherapy in 2005, but has had an ongoing problem with biliary strictures and sclerosing cholangitis. 07/30/16--Had MRCP today, dilation of left intrahepatic biliary ducts with multiple filling defects likely related to air. Common bile duct not clearly recognizable, Prominent right and left liver lobes likely secondary to cirrhosis.Plan is for hepatic duct drain tomorrow with IR 07/31/16-Seen S/P biliary drain insertion, having alot of epigastric pain 02/26, denies N/V. LFT's today show upward trend with bilirubin of 4.6, direct bilirubin is 3.5 indirect is 1.1, AST 144 Alt 88, Alk phos is 1400. H&H is 9.9/ 30.5. Liver results are pending. Plan: - Liver biopsy pending - LFT's in am - Pain management - Cont. PPI - Cont. Abx - Cont. Miralax - Supportive care - Monitor labs - [facility] declined patient because they do not feel that they would do anything different with regards to her care - Further recommendations to follow based on results of above. Pt seen and examined by Dr. Jarvis and myself and this note is written on his behalf (Sangeeta Mcdonald) Physician Comments Seen and examined with BLUE LINE TRIMMER, MRCP noted. PTC done today ofthe L IHD. Official report pending. Monitor labs. Antibiotics. (Madison Jarvis MD) Sangeeta Mcdonald Jul 31, 2016 16:38 Madison Jarvis MD Jul 31, 2016 18:03
--- NOTE | 2016-07-31 17:44 | RADRPT ---
EXAM DATE/TIME: 07/31/2016 13:05 [place] COMPARISON: No previous studies available for comparison. INDICATIONS : Patient with history of cholangitis in need of biliary drainage catheter placement. MEDICAL HISTORY : Non-Hodgkin's lymphoma with chemotherapy, Primary sclerosing cholangitis and strictures with multiple ERCP's, Diabetes, Kidney stones, Liver disease SURGICAL HISTORY : Splenectomy, Biliary drain placement and removal, Nephrostomy tube placement and removal, Liver biops y, Ureteral stent placement and removal ENCOUNTER: Subsequent ACUITY: >1 year PAIN SCORE: 7/10 LOCATION: Abdomen FLUORO TIME: 6.6 minutes IMAGE SERIES: 2 CONTRAST: 25 cc Omnipaque (iohexol) 350 DEVICE(S): 1.) 8 [place] Island[place] X35cm biliary drain Anesthesia and pain control was provided by the Anesthesia department. PROCEDURE : 1. Ultrasound guided puncture of the biliary tree. 2. Percutaneous antegrade cholangiogram. 3. Biliary stent placement. 4. Conscious sedation with continuous EKG and oximetry monitoring. The risks, benefits and alternatives to the procedure were explained and verbal and written consent w as obtained. The site was prepped in sterile fashion. Full sterile technique was used, including ca p, mask, sterile gloves and gown and a large sterile sheet. Hand hygiene and 2% chlorhexidine and/or betadine/alcohol prep was utilized per protocol for cutaneous antisepsis. The skin and subcutaneous tissues were infiltrated with local anesthetic solution. With ultrasound and fluoroscopic guidance the biliary tree was punctured with a 22 gauge Chiba needle and the biliary tree was opacified. An Accustick set was used to gain access to the biliary tree and a guidewire was passed into the duodenum. Serial dilatation was performed to accept the prescribed catheter. Injection of positive contrast demonstrates appropriate position. Cholangiogram demonstrates stenotic lesion centrally within the biliary tree. The left intrahepatic b iliary ducts are mildly to moderately distended. Internal/external biliary drain was placed and through the left biliary system into the duodenum. Conscious sedation was performed with the prescribed dosages and duration as above in the presence of an independent trained radiology nurse to assist in the monitoring of the patient. EKG and oximetry remained stable throughout the procedure. The patient tolerated the procedure well and there were n o complications. The patient was sent to post anesthesia recovery in stable condition. CONCLUSION: Uncomplicated biliary stent placement as above. Abnormal cholangiogram with stenotic lesions characteristic of the patient's known sclerosing cholang itis. Adeel Esteban MD on July 31, 2016 at 17:39 Board Certified Radiologist. This report was verified electronically.
[2016-07-31] MEDS ORDERED: SODIUM CHLOR 0.9% 1000 ML INJ 1,000 ML IV ONE (19:15)
[2016-07-31] MEDS ORDERED: ACETAMINOPHEN 325 MG TAB PO ONE (19:15)
[2016-08-01] VITALS (8 sets, daily range): BP systolic 93–125; BP diastolic 58–78; PULSE 76–118; RESP 16–18; TEMP 98–103; O2SAT 94–98
[2016-08-01] MEDS: AMPICILLIN-SULBACTAM INJ 3 GM in SODIUM CHLORIDE 0.9% INJ 100 ML IV SCH ×3 (02:00→14:29)
[2016-08-01] MEDS: CHLORHEXIDINE GLUCONATE 2 % 1 PACK (2 CLOTHS) TOP SCH ×2 (04:00→20:41)
[2016-08-01] MEDS: INSULIN NovoLIN REGULAR SUPPLEMENTAL SCALE SQ SCH ×4 (04:58→20:59)
[2016-08-01] MEDS: HYDROmorphone HCL PF 1 MG/ML VIAL IV PRN ×7 (04:59→23:10)
[2016-08-01] MEDS: PANTOPRAZOLE SODIUM 40 MG VIAL IV SCH (08:03)
[2016-08-01] MEDS: ACETAMINOPHEN 650 MG/20.3 ML UDC PO PRN ×2 (08:03→16:25)
[2016-08-01] MEDS: POLYETHYLENE GLYCOL 17 GM PKG PO SCH (08:04)
[2016-08-01] MEDS: SODIUM CHLORIDE 0.9% 10 ML VIAL IRRIGATION SCH (09:40)
--- NOTE | 2016-08-01 11:55 | HHI.PR ---
Subjective Remarks Patient had a high fever 103 this morning. Currently reports she is feeling okay except for persistent abdominal discomfort. She wants to try regular food. No nausea or vomiting. Objective Vitals Vital Signs Date Time Temp Pulse Resp B/P Pulse Ox O2 Delivery O2 Flow Rate FiO2 08/01/16 08:55 117 08/01/16 08:06 103.0 114 18 125/78 96 08/01/16 08:00 Room Air 08/01/16 04:00 98.0 76 16 107/66 98 08/01/16 03:09 Room Air 08/01/16 00:00 98.2 88 16 97/63 97 07/31/16 21:10 100.1 07/31/16 20:02 102.8 115 18 105/64 96 07/31/16 20:00 110 07/31/16 18:41 101.0 101 20 115/74 96 07/31/16 18:35 133 07/31/16 16:00 98.7 101 24 154/86 95 07/31/16 15:30 97.5 79 15 116/80 97 Nasal Cannula 2 07/31/16 15:15 78 14 118/68 98 Nasal Cannula 2 07/31/16 15:00 77 14 105/72 97 Nasal Cannula 2 07/31/16 14:45 73 12 96/63 95 Nasal Cannula 2 07/31/16 14:30 84 15 108/82 95 Nasal Cannula 2 07/31/16 14:15 74 15 115/80 97 Nasal Cannula 2 07/31/16 14:05 97.6 85 14 130/88 99 Simple Mask 6 I/O 07/31/16 07/31/16 07/31/16 08/01/16 08/01/16 08/01/16 07:00 15:00 23:00 07:00 15:00 23:00 Intake Total 0 ml 400 ml 1775 ml 502 ml Output Total 10 ml 850 ml Balance 0 ml 400 ml 1765 ml -348 ml Intake Oral 0 ml 550 ml 400 ml IV Total 1225 ml 102 ml Other 400 ml Output Urine Total 800 ml Drainage Total 10 ml 50 ml # Voids 2 3 # Bowel Movements 0 0 0 Result Diagram: 07/31/16 0322 07/31/16 0322 Other Results Laboratory Tests Test 08/01/16 12:06 White Blood Count 14.0 Red Blood Count 3.86 Hemoglobin 10.9 Hematocrit 33.3 Mean Corpuscular Volume 86.1 Mean Corpuscular Hemoglobin 28.2 Mean Corpuscular Hemoglobin 32.7 Concent Red Cell Distribution Width 19.8 Platelet Count 371 Mean Platelet Volume 11.0 Neutrophils (%) (Auto) Lymphocytes (%) (Auto) Monocytes (%) (Auto) Eosinophils (%) (Auto) Basophils (%) (Auto) Neutrophils # (Auto) Lymphocytes # (Auto) Monocytes # (Auto) Eosinophils # (Auto) Basophils # (Auto) CBC Comment AUTO DIFF Differential Total Cells 100 Counted Neutrophils % (Manual) 83 Band Neutrophils % 11 Lymphocytes % 4 Monocytes % 2 Neutrophils # (Manual) 13.2 Differential Comment FINAL DIFF MANUAL Platelet Estimate NORMAL Platelet Morphology Comment ENLARGED Target Cells 3+ [place] Bodies PRESENT Sodium Level 134 Potassium Level 3.3 Chloride Level 97 Carbon Dioxide Level 25.5 Anion Gap 12 Blood Urea Nitrogen 6 Creatinine 0.51 Estimat Glomerular Filtration 130 Rate Random Glucose 266 Calcium Level 8.4 Total Bilirubin 7.2 Aspartate Amino Transf 142 (AST/SGOT) Alanine Aminotransferase 100 (ALT/SGPT) Alkaline Phosphatase 1285 Total Protein 6.0 Albumin 2.3 Imaging Last Impressions Bile Duct Drainage 07/31/16 0000 Signed Impressions: Service Date/Time: Sunday, July 31, 2016 13:05 - CONCLUSION: Uncomplicated biliary stent placement as above. 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 Adeel Esteban MD Cholangiopancreatography MRI 07/30/16 0000 Signed Impressions: Service Date/Time: Saturday, July 30, 2016 13:21 - CONCLUSION: 1. Dilatation of the left intrahepatic biliary ducts with multiple filling defects likely related to air. There does appear to be narrowing of the central biliary ducts. The common bile duct is not clearly recognizable. The configuration at the left ducts appears similar to the prior examination. 2. Very prominent hypertrophy of the left lobe and atrophy of the right lobe likely secondary to cirrhosis. The liver does appear enlarged. Mele Cuba MD GI Procedure 07/26/16 0000 Signed Impressions: Service Date/Time: July 10:22 - CONCLUSION: ERCP as above. Feng Rod MD Chest X-Ray 07/19/16 1141 Signed Impressions: Service Date/Time: July 12:25 - CONCLUSION: 1. No acute cardiopulmonary findings. Farzad Morales MD Head CT 07/19/16 0000 Signed Impressions: Service Date/Time: July 16:01 - CONCLUSION: 1. No evidence of acute intracranial pathology. No masses are identified. Nestor Isabel MD Abdomen/Pelvis CT 07/19/16 0000 Signed Impressions: Service Date/Time: July 16:00 - CONCLUSION: Continued cirrhotic appearance of the liver. Some areas of scarring or volume loss throughout the right lobe similar to the previous study. No definite solid mass is seen. Status post splenectomy. No significant retroperitoneal adenopathy. Fadi Deng MD Objective Remarks GENERAL: Chronically ill-appearing female appear to be in pain. CARDIOVASCULAR: Normal rate and regular rhythm without murmurs, gallops, or rubs. RESPIRATORY: Good respiratory efforts. Breath sounds equal and clear to auscultation bilaterally. GASTROINTESTINAL: Abdomen soft, very tender to palpation. Normal active bowel sounds. There is a drain in place mid abdomen draining bilious fluid. MUSCULOSKELETAL: Extremities without cyanosis, or edema. NEURO: Alert & Oriented x4 to person, place, time, situation. Moves all ext x4 PSYCH: Appropriate mood and affect. Procedures Biliary drain placement. A/P Assessment and Plan 46-year-old female: Status post septic shock, Klebsiella pneumonia bacteremia: -Antibiotics per infectious disease. Zosyn discontinued. Continue Unasyn. - Repeat blood cultures no growth to date. - Fever this morning. Follow closely. Will discuss with infectious disease. Acute cholangitis/Liver cirrhosis: ? Sclerosing cholangitis - Appreciate GI following. Liver enzymes still elevated. Status post ERCP > left hepatic tree stricture, continue antibiotic, S/P liver biopsy. - Patient was being considered for transfer to [facility]. However [facility] declined transfer as they do not believe they would do anything different. - S/P biliary drain placement on 07/31/16 by IR per GI recs -Regular diet as tolerated. Monitor drain output. Coagulopathy: Likely secondary to liver disease. - Monitor CBC and coags. s/p transfusion 3 u FFP and Vitamin K 10mg IV x1 on 07/20 for INR 11 now INR 1.0 On Vitamin K 10mg daily per GI Hypokalemia: Replace and monitor. GI prophylaxis: PPI. Stool softener PRN constipation. DVT PPx: SCDs. Michelle Barney MD Aug 01, 2016 11:55
[2016-08-01 12:47] LABS: HEMATOCRIT 33.3 % (35.0-46.0); MEAN CELL VOLUME 86.1 FL (80.0-100.0); MEAN CORPUSCULAR HEMOGLOBIN 28.2 PG (27.0-34.0); MEAN CORPUSCULAR HGB CONC 32.7 % (32.0-36.0); PLATELET COUNT 371 TH/MM3 (150-450); RED BLOOD COUNT 3.86 MIL/MM3 (4.00-5.30); RED CELL DISTRIBUTION WIDTH 19.8 % (11.6-17.2)
[2016-08-01 12:58] LABS: HEMO FLAGS AUTO DIFF
[2016-08-01 13:02] LABS: ALT (GPT) 100 U/L (10-53); ANION GAP 12 MEQ/L (5-15); AST (GOT) 142 U/L (15-37); BICARBONATE 25.5 MEQ/L (21.0-32.0); BLOOD UREA NITROGEN 6 MG/DL (7-18); CHLORIDE 97 MEQ/L (98-107); GLOMERULAR FILTRATION RATE 130 ML/MIN (>89); POTASSIUM 3.3 MEQ/L (3.5-5.1); SODIUM (NA) 134 MEQ/L (136-145)
[2016-08-01 13:19] LABS: ALKALINE PHOSPHATASE 1285 U/L (45-117); TOTAL BILIRUBIN ADULT 7.2 MG/DL (0.2-1.0)
[2016-08-01 13:26] LABS: BANDS 11 % (0-6); NEUTROPHIL # MANUAL DIFF 13.2 TH/MM3 (1.8-7.7); POLYS (SEG NEUTROPHILS) 83 % (16-70); WBC DIFF SAMPLE 100
[2016-08-01 13:27] LABS: PLATELET ESTIMATE SMEAR NORMAL (NORMAL)
[2016-08-01 13:28] LABS: PLATELET MORPHOLOGY ENLARGED (NORMAL)
[2016-08-01 13:29] LABS: HOWELL-JOLLY BODIES PRESENT (NONE SEEN)
[2016-08-01 13:30] LABS: SCAN/DIFF FINAL DIFF MANUAL; TARGET CELLS 3+ (NORMAL)
--- NOTE | 2016-08-01 14:02 | HHI.GIFU ---
Subjective Remarks Resting in bed. Continues to have abdominal pain. Had fevers overnight. ( Aliyah Mosher) Objective Vitals I&O Vital Signs Date Time Temp Pulse Resp B/P Pulse Ox O2 Delivery O2 Flow Rate FiO2 08/01/16 12:07 99.2 102 18 109/71 98 08/01/16 08:55 117 08/01/16 08:06 103.0 114 18 125/78 96 08/01/16 08:00 Room Air 08/01/16 04:00 98.0 76 16 107/66 98 08/01/16 03:09 Room Air 08/01/16 00:00 98.2 88 16 97/63 97 07/31/16 21:10 100.1 07/31/16 20:02 102.8 115 18 105/64 96 07/31/16 20:00 110 07/31/16 18:41 101.0 101 20 115/74 96 07/31/16 18:35 133 07/31/16 16:00 98.7 101 24 154/86 95 07/31/16 15:30 97.5 79 15 116/80 97 Nasal Cannula 2 07/31/16 15:15 78 14 118/68 98 Nasal Cannula 2 07/31/16 15:00 77 14 105/72 97 Nasal Cannula 2 07/31/16 14:45 73 12 96/63 95 Nasal Cannula 2 07/31/16 14:30 84 15 108/82 95 Nasal Cannula 2 07/31/16 14:15 74 15 115/80 97 Nasal Cannula 2 07/31/16 14:05 97.6 85 14 130/88 99 Simple Mask 6 I/O 07/31/16 07/31/16 07/31/16 08/01/16 08/01/16 08/01/16 07:00 15:00 23:00 07:00 15:00 23:00 Intake Total 0 ml 400 ml 1775 ml 502 ml Output Total 10 ml 850 ml Balance 0 ml 400 ml 1765 ml -348 ml Intake Oral 0 ml 550 ml 400 ml IV Total 1225 ml 102 ml Other 400 ml Output Urine Total 800 ml Drainage Total 10 ml 50 ml # Voids 2 3 # Bowel Movements 0 0 0 Laboratory Laboratory Tests Test 08/01/16 12:06 White Blood Count 14.0 Red Blood Count 3.86 Hemoglobin 10.9 Hematocrit 33.3 Mean Corpuscular Volume 86.1 Mean Corpuscular Hemoglobin 28.2 Mean Corpuscular Hemoglobin 32.7 Concent Red Cell Distribution Width 19.8 Platelet Count 371 Mean Platelet Volume 11.0 Neutrophils (%) (Auto) Lymphocytes (%) (Auto) Monocytes (%) (Auto) Eosinophils (%) (Auto) Basophils (%) (Auto) Neutrophils # (Auto) Lymphocytes # (Auto) Monocytes # (Auto) Eosinophils # (Auto) Basophils # (Auto) CBC Comment AUTO DIFF Differential Total Cells 100 Counted Neutrophils % (Manual) 83 Band Neutrophils % 11 Lymphocytes % 4 Monocytes % 2 Neutrophils # (Manual) 13.2 Differential Comment FINAL DIFF MANUAL Platelet Estimate NORMAL Platelet Morphology Comment ENLARGED Target Cells 3+ [place] Bodies PRESENT Sodium Level 134 Potassium Level 3.3 Chloride Level 97 Carbon Dioxide Level 25.5 Anion Gap 12 Blood Urea Nitrogen 6 Creatinine 0.51 Estimat Glomerular Filtration 130 Rate Random Glucose 266 Calcium Level 8.4 Total Bilirubin 7.2 Aspartate Amino Transf 142 (AST/SGOT) Alanine Aminotransferase 100 (ALT/SGPT) Alkaline Phosphatase 1285 Total Protein 6.0 Albumin 2.3 Imaging Last Impressions Bile Duct Drainage 07/31/16 0000 Signed Impressions: Service Date/Time: Sunday, July 31, 2016 13:05 - CONCLUSION: Uncomplicated biliary stent placement as above. 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 Adeel Esteban MD Cholangiopancreatography MRI 07/30/16 0000 Signed Impressions: Service Date/Time: Saturday, July 30, 2016 13:21 - CONCLUSION: 1. Dilatation of the left intrahepatic biliary ducts with multiple filling defects likely related to air. There does appear to be narrowing of the central biliary ducts. The common bile duct is not clearly recognizable. The configuration at the left ducts appears similar to the prior examination. 2. Very prominent hypertrophy of the left lobe and atrophy of the right lobe likely secondary to cirrhosis. The liver does appear enlarged. Mele Cuba MD GI Procedure 07/26/16 0000 Signed Impressions: Service Date/Time: July 10:22 - CONCLUSION: ERCP as above. Feng Rod MD Chest X-Ray 07/19/16 1141 Signed Impressions: Service Date/Time: July 12:25 - CONCLUSION: 1. No acute cardiopulmonary findings. Farzad Morales MD Head CT 07/19/16 0000 Signed Impressions: Service Date/Time: July 16:01 - CONCLUSION: 1. No evidence of acute intracranial pathology. No masses are identified. Nestor Isabel MD Abdomen/Pelvis CT 07/19/16 0000 Signed Impressions: Service Date/Time: July 16:00 - CONCLUSION: Continued cirrhotic appearance of the liver. Some areas of scarring or volume loss throughout the right lobe similar to the previous study. No definite solid mass is seen. Status post splenectomy. No significant retroperitoneal adenopathy. Fadi Deng MD Physical Exam HEENT: Normocephalic; atraumatic, + jaundice CHEST: CTA CARDIAC: RRR ABDOMEN: Soft, nondistended, diffuse tenderness-moderate; no hepatosplenomegaly ; bowel sounds x 4 quadrants. EXTREMITIES: No clubbing, cyanosis, or edema. SKIN: Normal; no rash; + jaundice. 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 (Aliyah Mosher) Assessment and Plan Plan ASSESSMENT: - Sclerosing Cholangitis/Biliary Strictures with sepsis/fever, N/V/Abdominal pain. She is currently following with [facility]. Last ERCP (04/27/16)---> primary sclerosing cholangitis, dominant stricture right intrahepatic duct, periampullary diverticulum. During that admission, IR was consulted for possible PTHC, but they did not feel that this could be done and therefore it was cancelled. Abnormal imaging of the gallbladder. Abdomen/Pelvis CT (07/19/16)----> Continued cirrhotic appearance of the liver. Some areas of scarring or volume loss throughout the right lobe similar to the previous study. No definite solid mass is seen. Status post splenectomy. No significant retroperitoneal adenopathy. MRCP (07/23/16)----> 1. Abnormally dilated left intrahepatic bile ducts with caliber change near the ankit hepatis at the confluence. No mass is appreciated in this area on this examination or the recent CT of the abdomen. Therefore, etiology is nonspecific. Stricture or small mass are the differential diagnostic considerations. These ducts have a similar appearance on the August 2014 examination. Suggest correlation with the clinical history. 2. Normal right intrahepatic bile ducts and common bile duct. Gallbladder is decompressed but demonstrates severe diffuse wall edema which may be related to the portal hypertension and chronic liver disease. 3. Abnormally dilated main pancreatic duct in the tail with associated dilated side branches. There is abrupt caliber change in the mid body. The appearance is similar to multiple prior studies dating back to 2015. I do not see a mass as the cause and since there has been no significant change this may be related to a stricture. Segmental IPMN is also a consideration but felt less likely. Suggest attention to this at followup imaging to confirm stability. 4. The liver demonstrates features diagnostic of cirrhosis. There is a moderate volume of free fluid within the abdomen and pelvis likely related to portal hypertension. There are also small bilateral pleural effusions. Bacteremia with Klebsiella, GNR. Rpt Cx with no growth in 4 days. Elevated LFTs above her baseline (T. Bilirubin , usually runs 1.5-2.5). [facility] declined patient for transfer because they feel there is nothing they will do differently than we are doing here with regards to her care. S/P ERCP (07/26/16)-----> Ampulla C/W previous sphincterotomy, some sludge removed by balloon, free flow of bile, not able to see the left hepatic tree. No dye in that area, possible stricture, possible stricture in the left hepatic duct. 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 Pt with ongoing abdominal pain, persistent fevers with T. Max 103.0. WBC 14.0. T. Bili 7.2, AST 142, ALT 100, Alk Phosph 1285. Will ask ID to re-evaluate. Unasyn. - Sepsis, Bacteremia, Fevers, Leukocytosis. BCx with Klebsiella, GNR. ID following, abx per ID. Pt with worsening leukocytosis and fever of 103.0. - Liver cirrhosis. S/P liver biopsy 07/27/16, results pending. S/P liver biopsy ( 2013) at that time of both her normal liver parenchyma and her liver mass. The normal liver parenchyma revealed chronic hepatitis with bridging fibrosis and cirrhosis grade 2/4, stage 3-4/4 exhibiting bile duct tubular damage and ductopenia, chronic hepaititis with bridging fibrosis. Of note, specimen #1 suggested a differential diagnosis of primary biliary cirrhosis vs. drug induced disease. The histopathology did not suggest that of primary sclerosing cholangitis. The liver mass suggested chronic hepatitis with bridging fibrosis 2/4, stage III/4. Of note, she was evaluated by [facility], but states she was told that her MELD score was too low to be considered for liver transplant. AFP 9.5, Ceruloplasmin pending. MARCELLO negative, ASMA negative, AMA pending, Ferritin 159, Iron sat 17.9%. Liver biopsy pending. - Hx of abnormal imaging of the gallbladder. HIDA (04/27/16)----> Nonvisualization of the gallbladder. ADDENDUM: Delayed imaging of the abdomen documents an ovoid area of activity in the right upper quadrant in the expected location of the gallbladder based on prior cross-sectional imaging studies. Delayed visualization the gallbladder should exclude complete cystic duct obstruction. However, based on prior imaging studies, the gallbladder demonstrated severe diffuse wall edema. S/P GS evaluation during last admission who did not feel this was contributing to her symptoms and did not recommend cholecystectomy. No improvement in liver enzymes, which have increased. T. Bili 7.2, AST 142, ALT 100, Alk Phosph 1285. AFP 9.5, Hepatitis panel negative, alpha 1 antitrypsin 291 ceruloplasmin negative marcello negative, asma negative, ama pending - Hx of non-Hodgkin's lymphoma and completed chemotherapy in 2005, but has had an ongoing problem with biliary strictures and sclerosing cholangitis. Plan: - TOO - Await pathology from liver biopsy - Reconsult ID, worsening fever/leukocytosis - CBC, LFT's in am - Pain management - Cont. PPI - Cont. Abx per ID recommendations - Cont. Miralax - Supportive care - [facility] declined patient because they do not feel that they would do anything different with regards to her care - Further recommendations to follow based on results of above. - Pt seen and examined by Dr. Jarvis and myself and this note is written on his behalf ADDENDUM: LFT came back with T. Bili 7.2, AST 142, ALT 100, Alk Phosph 1285. Abx changed to Zosyn, Vanco by ID. Biliary drain with 50cc this shift, asked nurse to flush again. (Aliyah Mosher) Physician Comments Seen and examined with [facility], worsening fevers and abdominal pain after PTC. CT ordered.ID reconsulted. Cholangitis vs. Cholecystitis. Previously cholecystectomy refused by surgery at [facility] [place], pt. deemed too high risk. She does fu at [facility] in [facility]. (Madison Jarvis MD) Aliyah Mosher Aug 01, 2016 14:02 Madison Jarvis MD Aug 01, 2016 20:40
--- NOTE | 2016-08-01 14:58 | HHI.IDPN ---
Subjective Subjective Remarks sp Biliary Drainage placement 07/31 fever up to 103 today co abdominal pain no diarrhea no vomiting Antibiotics unasyn Allergies: Coded Allergies: Gadolinium Derivatives (Verified Allergy, Severe, BREATHING PROBLEMS, N/V, CHILLS, 07/19/16) MRI PRECAUTION (Verified Allergy, Severe, NAUSEA; PER PATIENT IT IS A GADOLINIUM ALLERGY KMD 11/25/12, 07/19/16) Morphine (Verified Allergy, Severe, BREATHING PROBLEMS, 07/19/16) Toradol (Verified Allergy, Severe, Shortness of Breath, 07/19/16) *MDRO Multi-Drug Resistant Organism (Verified Adverse Reaction, Unknown, MRSA, 07/20/16) 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 Vital Signs Date Time Temp Pulse Resp B/P Pulse Ox O2 Delivery O2 Flow Rate FiO2 08/01/16 12:07 99.2 102 18 109/71 98 08/01/16 08:55 117 08/01/16 08:06 103.0 114 18 125/78 96 08/01/16 08:00 Room Air 08/01/16 04:00 98.0 76 16 107/66 98 08/01/16 03:09 Room Air 08/01/16 00:00 98.2 88 16 97/63 97 07/31/16 21:10 100.1 07/31/16 20:02 102.8 115 18 105/64 96 07/31/16 20:00 110 07/31/16 18:41 101.0 101 20 115/74 96 07/31/16 18:35 133 07/31/16 16:00 98.7 101 24 154/86 95 07/31/16 15:30 97.5 79 15 116/80 97 Nasal Cannula 2 07/31/16 15:15 78 14 118/68 98 Nasal Cannula 2 07/31/16 15:00 77 14 105/72 97 Nasal Cannula 2 07/31/16 07/31/16 08/01/16 15:00 23:00 07:00 Intake Total 400 ml 1775 ml 502 ml Output Total 10 ml 850 ml Balance 400 ml 1765 ml -348 ml Intake Oral 550 ml 400 ml IV Total 1225 ml 102 ml Other 400 ml Output Urine Total 800 ml Drainage Total 10 ml 50 ml # Voids 3 # Bowel Movements 0 0 . Laboratory Tests Test 07/31/16 08/01/16 03:22 12:06 White Blood Count 11.5 TH/MM3 14.0 TH/MM3 Red Blood Count 3.58 MIL/MM3 3.86 MIL/MM3 Hemoglobin 9.9 GM/DL 10.9 GM/DL Hematocrit 30.5 % 33.3 % Mean Corpuscular Volume 85.4 FL 86.1 FL Mean Corpuscular Hemoglobin 27.6 PG 28.2 PG Mean Corpuscular Hemoglobin 32.3 % 32.7 % Concent Red Cell Distribution Width 19.0 % 19.8 % Platelet Count 398 TH/MM3 371 TH/MM3 Mean Platelet Volume 10.3 FL 11.0 FL Neutrophils (%) (Auto) % Lymphocytes (%) (Auto) % Monocytes (%) (Auto) % Eosinophils (%) (Auto) % Basophils (%) (Auto) % Neutrophils # (Auto) TH/MM3 Lymphocytes # (Auto) TH/MM3 Monocytes # (Auto) TH/MM3 Eosinophils # (Auto) TH/MM3 Basophils # (Auto) TH/MM3 CBC Comment AUTO DIFF Differential Total Cells 100 Counted Neutrophils % (Manual) 83 % Band Neutrophils % 11 % Lymphocytes % 4 % Monocytes % 2 % Neutrophils # (Manual) 13.2 TH/MM3 Differential Comment FINAL DIFF MANUAL Platelet Estimate NORMAL Platelet Morphology Comment ENLARGED Target Cells 3+ Kelly-[place] Bodies PRESENT Laboratory Tests Test 07/31/16 08/01/16 03:22 12:06 Sodium Level 140 MEQ/L 134 MEQ/L Potassium Level 2.9 MEQ/L 3.3 MEQ/L Chloride Level 102 MEQ/L 97 MEQ/L Carbon Dioxide Level 26.9 MEQ/L 25.5 MEQ/L Anion Gap 11 MEQ/L 12 MEQ/L Blood Urea Nitrogen 7 MG/DL 6 MG/DL Creatinine 0.31 MG/DL 0.51 MG/DL Estimat Glomerular Filtration 231 ML/MIN 130 ML/MIN Rate Random Glucose 131 MG/DL 266 MG/DL Calcium Level 8.3 MG/DL 8.4 MG/DL Magnesium Level 1.6 MG/DL Total Bilirubin 4.6 MG/DL 7.2 MG/DL Direct Bilirubin 3.5 MG/DL Indirect Bilirubin 1.1 MG/DL Aspartate Amino Transf 144 U/L 142 U/L (AST/SGOT) Alanine Aminotransferase 98 U/L 100 U/L (ALT/SGPT) Alkaline Phosphatase 1400 U/L 1285 U/L Total Protein 6.1 GM/DL 6.0 GM/DL Albumin 2.3 GM/DL 2.3 GM/DL Imaging Last Impressions Bile Duct Drainage 07/31/16 0000 Signed Impressions: Service Date/Time: Sunday, July 31, 2016 13:05 - CONCLUSION: Uncomplicated biliary stent placement as above. 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 Adeel Esteban MD Cholangiopancreatography MRI 07/30/16 0000 Signed Impressions: Service Date/Time: Saturday, July 30, 2016 13:21 - CONCLUSION: 1. Dilatation of the left intrahepatic biliary ducts with multiple filling defects likely related to air. There does appear to be narrowing of the central biliary ducts. The common bile duct is not clearly recognizable. The configuration at the left ducts appears similar to the prior examination. 2. Very prominent hypertrophy of the left lobe and atrophy of the right lobe likely secondary to cirrhosis. The liver does appear enlarged. Mele Cuba MD GI Procedure 07/26/16 0000 Signed Impressions: Service Date/Time: July 10:22 - CONCLUSION: ERCP as above. Feng Rod MD Chest X-Ray 07/19/16 1141 Signed Impressions: Service Date/Time: July 12:25 - CONCLUSION: 1. No acute cardiopulmonary findings. Farzad Morales MD Head CT 07/19/16 0000 Signed Impressions: Service Date/Time: July 16:01 - CONCLUSION: 1. No evidence of acute intracranial pathology. No masses are identified. Nestor Isabel MD Abdomen/Pelvis CT 07/19/16 0000 Signed Impressions: Service Date/Time: July 16:00 - CONCLUSION: Continued cirrhotic appearance of the liver. Some areas of scarring or volume loss throughout the right lobe similar to the previous study. No definite solid mass is seen. Status post splenectomy. No significant retroperitoneal adenopathy. Fadi Deng MD Physical Exam CONSTITUTIONAL/GENERAL: This is a thin chronically ill appearing patient, in no apparent distress. LINES: b/l forearms PIVs wo e/o infx SKIN: + mild jaundice, rashes, or lesions. . Skin temperature appropriate. Not diaphoretic. EYES: Pupils equal and round and reactive. Extraocular motions intact. + some mild scleral icterus. No injection or drainage. Fundi not examined. CARDIOVASCULAR: Regular rate and rhythm without murmurs, gallops, or rubs. No JVD. Peripheral pulses symmetric. RESPIRATORY/CHEST: Symmetric, unlabored respirations. Clear to auscultation. Breath sounds equal bilaterally. No wheezes, rales, or rhonchi. GASTROINTESTINAL: Abdomen soft, marked abdominal tenderness with max in RUQ w/ o guarding or rebound , + moderate distended. + tender hepatomegaly, or palpable masses. No guarding. Bowel sounds present. Bile draine in place c serosang drainage MUSCULOSKELETAL: Extremities without clubbing, cyanosis, or edema. No joint tenderness or effusion noted. No calf tenderness. No mottling or clubbing. NEUROLOGICAL: Awake and alert. Motor and sensory grossly within normal limits. Follows commands. Normal speech. Moves all extremities. Assessment & Plan Remarks Sepsis, Kleb pneumo, biliary origin - improving clinically Cholangitis sp biliary draine placement PSC underlysing dz New fever dc Unasyn start tra valadez, ,icafungin aleshak BC Christiane Jackson MD Aug 01, 2016 14:58
[2016-08-01] MEDS ORDERED: POTASSIUM CHLORIDE 10 MEQ CONTROLLED RELEASE TAB PO ONE (15:00)
[2016-08-01] MEDS ORDERED: Vancomycin Consult Pharmacy 1 EA IV SCH (15:00)
--- NOTE | 2016-08-01 16:18 | HHI.PR ---
Addendum to Inpatient Note Additional Information RN called Pt is now hypotensive and tachycardic NS 500 dw RN - start new abx orders Likely new biliary sepsis PCP was notified Christiane Jackson MD Aug 01, 2016 16:18
[2016-08-01] MEDS ORDERED: SODIUM CHLOR 0.9% 1000 ML INJ 1,000 ML IV STA (16:23)
[2016-08-01] MEDS ORDERED: SODIUM CHLORID 0.9% 500 ML INJ 500 ML IV ONE (16:30)
[2016-08-01] MEDS: MICAFUNGIN INJ 150 MG in SODIUM CHLORIDE 0.9% INJ 100 ML IV SCH (16:44)
[2016-08-01] MEDS: SODIUM CHLOR 0.9% 1000 ML INJ 1,000 ML IV SCH ×2 (16:45→20:41)
[2016-08-01] MEDS: VANCOMYCIN 1,000 MG/NS 250 ML IV SCH ×2 (18:28)
[2016-08-01] MEDS: PIPERACIL-TAZO 3.375 GM PREMIX 50 ML IV SCH (20:40)
[2016-08-01] MEDS ORDERED: DIATRIZOATE MEGLUM/DIATRIZOATE SOD 9 ML CUP PO ONE (20:47)
[2016-08-02] VITALS (17 sets, daily range): BP systolic 95–133; BP diastolic 57–88; PULSE 72–113; RESP 16–26; TEMP 98.2–100.3; O2SAT 95–100
[2016-08-02] MEDS: PIPERACIL-TAZO 3.375 GM PREMIX 50 ML IV SCH ×4 (02:12→20:00)
[2016-08-02] MEDS: HYDROmorphone HCL PF 1 MG/ML VIAL IV PRN ×7 (02:12→21:39)
[2016-08-02] MEDS: INSULIN NovoLIN REGULAR SUPPLEMENTAL SCALE SQ SCH ×4 (03:15→21:39)
[2016-08-02] MEDS: VANCOMYCIN 1,000 MG/NS 250 ML IV SCH ×4 (05:06→17:09)
[2016-08-02 05:36] LABS: HEMATOCRIT 32.9 % (35.0-46.0); MEAN CELL VOLUME 87.3 FL (80.0-100.0); MEAN CORPUSCULAR HEMOGLOBIN 27.9 PG (27.0-34.0); MEAN CORPUSCULAR HGB CONC 31.9 % (32.0-36.0); PLATELET COUNT 343 TH/MM3 (150-450); RED BLOOD COUNT 3.76 MIL/MM3 (4.00-5.30); RED CELL DISTRIBUTION WIDTH 19.9 % (11.6-17.2); WHITE BLOOD COUNT 14.6 TH/MM3 (4.0-11.0)
[2016-08-02 05:41] LABS: PROTHROMBIN TIME - PATIENT 11.2 SEC (9.8-11.6)
[2016-08-02 05:43] LABS: HEMO FLAGS AUTO DIFF
[2016-08-02 06:21] LABS: ALT (GPT) 96 U/L (10-53); ANION GAP 12 MEQ/L (5-15); AST (GOT) 116 U/L (15-37); BICARBONATE 24.8 MEQ/L (21.0-32.0); BLOOD UREA NITROGEN 8 MG/DL (7-18); CHLORIDE 101 MEQ/L (98-107); GLOMERULAR FILTRATION RATE 182 ML/MIN (>89); POTASSIUM 3.2 MEQ/L (3.5-5.1); SODIUM (NA) 138 MEQ/L (136-145)
[2016-08-02 06:44] LABS: ALKALINE PHOSPHATASE 1189 U/L (45-117); TOTAL BILIRUBIN ADULT 7.8 MG/DL (0.2-1.0)
[2016-08-02 07:07] LABS: BANDS 11 % (0-6); NEUTROPHIL # MANUAL DIFF 13.7 TH/MM3 (1.8-7.7); PLATELET ESTIMATE SMEAR NORMAL (NORMAL); PLATELET MORPHOLOGY NORMAL (NORMAL); POLYS (SEG NEUTROPHILS) 83 % (16-70); SCAN/DIFF FINAL DIFF MANUAL; TARGET CELLS 3+ (NORMAL); WBC DIFF SAMPLE 100
[2016-08-02 07:08] LABS: HOWELL-JOLLY BODIES PRESENT (NONE SEEN)
[2016-08-02] MEDS: PANTOPRAZOLE SODIUM 40 MG VIAL IV SCH (08:18)
[2016-08-02] MEDS: POLYETHYLENE GLYCOL 17 GM PKG PO SCH (08:19)
[2016-08-02] MEDS: SODIUM CHLORIDE 0.9% 10 ML VIAL IRRIGATION SCH (08:19)
--- NOTE | 2016-08-02 10:25 | RADRPT ---
EXAM DATE/TIME: 07/27/2016 15:47 [facility] COMPARISON: CT NEEDLE BIOPSY LIVER, January 19, 2014, 12:10. INDICATIONS : Liver biopsy. SEDATION TIME: 30 minutes BIOPSY SITE: Right liver MEDICATION(S): 1.) 2 mg midazolam (Versed) IV 2.) 1 mcg fentanyl (Sublimaze) IV DEVICE(S): 1.) 18 Fr Temno core biopsy needle MEDICAL HISTORY : None. SURGICAL HISTORY : None. ENCOUNTER: Initial ACUITY: 1 day PAIN SCORE: 0/10 LOCATION: liver A total of two core specimen(s) were obtained and sent to the laboratory for pathologic evaluation. PROCEDURE: 1. CT guided liver biopsy. 2. Conscious sedation with continuous EKG and oximetry monitoring. 3. EKG and oximetry remained stable throughout the procedure. Prior to the procedure informed consent was obtained. Any appropriate prior imaging studies were rev iewed. Using automated exposure control and adjustment of the mA and/or kV according to patient size, radiat ion dose was kept as low as reasonably achievable to obtain optimal diagnostic quality images. The site was prepped in a sterile fashion. Full sterile technique was used, including cap, mask, dia rile gloves and gown and a large sterile sheet. Hand hygiene and 2% chlorhexidine and/or betadine/al cohol prep was utilized per protocol for cutaneous antisepsis. The skin and subcutaneous tissues wer e infiltrated with local anesthetic solution. With CT guidance the left lobe of the liver was localized. The liver demonstrates morphology diagnost ic of cirrhosis. There is trace ascites and there is pneumobilia. Biopsy was performed using the pres cribed needle as above. Adequate hemostasis was obtained with compression at the puncture site. Follow-up CT scan reveals no hemorrhage. The patient tolerated the procedure well and there were no complications. The patient was returned to the Radiology Outpatient Unit in stable condition. CONCLUSION: Uncomplicated CT guided biopsy of the liver. Mele Yoo MD on August 02, 2016 at 10:22 Board Certified Radiologist. This report was verified electronically.
--- NOTE | 2016-08-02 10:29 | HHI.GIFU ---
Subjective Remarks Patient resting in bed. Reports that she continues to have ongoing constant abdominal pain, worse than her "normal abdominal pain." Did not have any fevers overnight. Patient was transferred to the unit yesterday for high fever , tachycardia, hypotension (Aliyah Mosher) Objective Vitals I&O Vital Signs Date Time Temp Pulse Resp B/P Pulse Ox O2 Delivery O2 Flow Rate FiO2 08/02/16 08:00 102 08/02/16 07:00 Room Air 08/02/16 06:00 89 08/02/16 04:00 98.8 90 16 111/66 96 08/02/16 04:00 90 08/02/16 02:00 78 08/02/16 00:00 98.2 72 16 95/57 95 08/02/16 00:00 72 08/01/16 22:00 81 08/01/16 20:00 98.9 101 18 93/58 95 08/01/16 20:00 101 08/01/16 19:00 Room Air 08/01/16 16:30 103.0 118 17 99/62 94 08/01/16 12:07 99.2 102 18 109/71 98 I/O 08/01/16 08/01/16 08/01/16 08/02/16 08/02/16 08/02/16 07:00 15:00 23:00 07:00 15:00 23:00 Intake Total 502 ml 1062 ml 949 ml 1120 ml Output Total 850 ml 50 ml 580 ml 600 ml Balance -348 ml 1012 ml 369 ml 520 ml Intake Oral 400 ml 960 ml 550 ml IV Total 102 ml 102 ml 399 ml 1120 ml Output Urine Total 800 ml 550 ml 550 ml Drainage Total 50 ml 50 ml 30 ml 50 ml # Voids 3 2 # Bowel Movements 0 0 Laboratory Laboratory Tests Test 08/01/16 08/02/16 12:06 04:51 White Blood Count 14.0 14.6 Red Blood Count 3.86 3.76 Hemoglobin 10.9 10.5 Hematocrit 33.3 32.9 Mean Corpuscular Volume 86.1 87.3 Mean Corpuscular Hemoglobin 28.2 27.9 Mean Corpuscular Hemoglobin 32.7 31.9 Concent Red Cell Distribution Width 19.8 19.9 Platelet Count 371 343 Mean Platelet Volume 11.0 11.0 Neutrophils (%) (Auto) Lymphocytes (%) (Auto) Monocytes (%) (Auto) Eosinophils (%) (Auto) Basophils (%) (Auto) Neutrophils # (Auto) Lymphocytes # (Auto) Monocytes # (Auto) Eosinophils # (Auto) Basophils # (Auto) CBC Comment AUTO DIFF AUTO DIFF Differential Total Cells 100 100 Counted Neutrophils % (Manual) 83 83 Band Neutrophils % 11 11 Lymphocytes % 4 4 Monocytes % 2 2 Neutrophils # (Manual) 13.2 13.7 Differential Comment FINAL DIFF FINAL DIFF MANUAL MANUAL Platelet Estimate NORMAL NORMAL Platelet Morphology Comment ENLARGED NORMAL Target Cells 3+ 3+ Kelly-[place] Bodies PRESENT PRESENT Sodium Level 134 138 Potassium Level 3.3 3.2 Chloride Level 97 101 Carbon Dioxide Level 25.5 24.8 Anion Gap 12 12 Blood Urea Nitrogen 6 8 Creatinine 0.51 0.38 Estimat Glomerular Filtration 130 182 Rate Random Glucose 266 164 Calcium Level 8.4 8.9 Total Bilirubin 7.2 7.8 Aspartate Amino Transf 142 116 (AST/SGOT) Alanine Aminotransferase 100 96 (ALT/SGPT) Alkaline Phosphatase 1285 1189 Total Protein 6.0 6.7 Albumin 2.3 2.3 Prothrombin Time 11.2 Prothromb Time International 1.0 Ratio Date/Time Procedure Status Source Growth 08/01/16 16:15 Aerobic Blood Culture Received Blood Peripheral Pending 08/01/16 16:15 Anaerobic Blood Culture Received Blood Peripheral Pending Imaging Last Impressions Bile Duct Drainage 07/31/16 0000 Signed Impressions: Service Date/Time: Sunday, July 31, 2016 13:05 - CONCLUSION: Uncomplicated biliary stent placement as above. 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 Adeel Esteban MD Cholangiopancreatography MRI 07/30/16 0000 Signed Impressions: Service Date/Time: Saturday, July 30, 2016 13:21 - CONCLUSION: 1. Dilatation of the left intrahepatic biliary ducts with multiple filling defects likely related to air. There does appear to be narrowing of the central biliary ducts. The common bile duct is not clearly recognizable. The configuration at the left ducts appears similar to the prior examination. 2. Very prominent hypertrophy of the left lobe and atrophy of the right lobe likely secondary to cirrhosis. The liver does appear enlarged. Mele Cuba MD GI Procedure 07/26/16 0000 Signed Impressions: Service Date/Time: July 10:22 - CONCLUSION: ERCP as above. Feng Rod MD Chest X-Ray 07/19/16 1141 Signed Impressions: Service Date/Time: July 12:25 - CONCLUSION: 1. No acute cardiopulmonary findings. Farzad Morales MD Head CT 07/19/16 0000 Signed Impressions: Service Date/Time: July 16:01 - CONCLUSION: 1. No evidence of acute intracranial pathology. No masses are identified. Nestor Isabel MD Abdomen/Pelvis CT 07/19/16 0000 Signed Impressions: Service Date/Time: July 16:00 - CONCLUSION: Continued cirrhotic appearance of the liver. Some areas of scarring or volume loss throughout the right lobe similar to the previous study. No definite solid mass is seen. Status post splenectomy. No significant retroperitoneal adenopathy. Fadi Deng MD Physical Exam HEENT: Normocephalic; atraumatic, + jaundice CHEST: CTA CARDIAC: RRR ABDOMEN: Soft, nondistended, diffuse tenderness-moderate; no hepatosplenomegaly ; bowel sounds x 4 quadrants. EXTREMITIES: No clubbing, cyanosis, or edema. SKIN: Normal; no rash; + jaundice. MEDICAL BILLER CODER: No focal deficits; A&O x3. (Aliyah Mosher) Assessment and Plan Plan ASSESSMENT: - Sclerosing Cholangitis/Biliary Strictures with sepsis/fever, N/V/Abdominal pain. She is currently following with [facility]. Last ERCP (04/27/16)---> primary sclerosing cholangitis, dominant stricture right intrahepatic duct, periampullary diverticulum. During that admission, IR was consulted for possible PTHC, but they did not feel that this could be done and therefore it was cancelled. Abnormal imaging of the gallbladder. Abdomen/Pelvis CT (07/19/16)----> Continued cirrhotic appearance of the liver. Some areas of scarring or volume loss throughout the right lobe similar to the previous study. No definite solid mass is seen. Status post splenectomy. No significant retroperitoneal adenopathy. MRCP (07/23/16)----> 1. Abnormally dilated left intrahepatic bile ducts with caliber change near the ankit hepatis at the confluence. No mass is appreciated in this area on this examination or the recent CT of the abdomen. Therefore, etiology is nonspecific. Stricture or small mass are the differential diagnostic considerations. These ducts have a similar appearance on the August 2014 examination. Suggest correlation with the clinical history. 2. Normal right intrahepatic bile ducts and common bile duct. Gallbladder is decompressed but demonstrates severe diffuse wall edema which may be related to the portal hypertension and chronic liver disease. 3. Abnormally dilated main pancreatic duct in the tail with associated dilated side branches. There is abrupt caliber change in the mid body. The appearance is similar to multiple prior studies dating back to 2014. I do not see a mass as the cause and since there has been no significant change this may be related to a stricture. Segmental IPMN is also a consideration but felt less likely. Suggest attention to this at followup imaging to confirm stability. 4. The liver demonstrates features diagnostic of cirrhosis. There is a moderate volume of free fluid within the abdomen and pelvis likely related to portal hypertension. There are also small bilateral pleural effusions. Bacteremia with Klebsiella, GNR. [facility] declined patient for transfer because they feel there is nothing they will do differently than we are doing here with regards to her care. S/P ERCP (07/26/16)-----> Ampulla C/W previous sphincterotomy, some sludge removed by balloon, free flow of bile, not able to see the left hepatic tree. No dye in that area, possible stricture, possible stricture in the left hepatic duct. 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 Pt with ongoing abdominal pain and had high fever of 103.0 yesterday. Her abx were changed by ID and she has remained afebrile since 4pm yesterday. WBC 14.6. T. Bili 7.8, AST 116, ALT 96, Alk Phosph 1189. Zosyn, Vanco. CT pending- to be done today. - Sepsis, Bacteremia, Fevers, Leukocytosis. BCx with Klebsiella, GNR. ID following, abx per ID. Pt had fever of 103.0 yesterday, but has been afebrile since yesterday afternoon after abx changed. Currently on zosyn and vanco. Rpt. cx pending. - Liver cirrhosis. S/P liver biopsy 07/27/16, results pending. S/P liver biopsy ( 2013) at that time of both her normal liver parenchyma and her liver mass. The normal liver parenchyma revealed chronic hepatitis with bridging fibrosis and cirrhosis grade 2/4, stage 3-4/4 exhibiting bile duct tubular damage and ductopenia, chronic hepaititis with bridging fibrosis. Of note, specimen #1 suggested a differential diagnosis of primary biliary cirrhosis vs. drug induced disease. The histopathology did not suggest that of primary sclerosing cholangitis. The liver mass suggested chronic hepatitis with bridging fibrosis 2/4, stage III/4. Of note, she was evaluated by [facility], but states she was told that her MELD score was too low to be considered for liver transplant. AFP 9.5, Ceruloplasmin pending. MARCELLO negative, ASMA negative, AMA pending, Ferritin 159, Iron sat 17.9%. Liver biopsy pending. - Hx of abnormal imaging of the gallbladder. HIDA (04/27/16)----> Nonvisualization of the gallbladder. ADDENDUM: Delayed imaging of the abdomen documents an ovoid area of activity in the right upper quadrant in the expected location of the gallbladder based on prior cross-sectional imaging studies. Delayed visualization the gallbladder should exclude complete cystic duct obstruction. However, based on prior imaging studies, the gallbladder demonstrated severe diffuse wall edema. S/P GS evaluation during last admission who did not feel this was contributing to her symptoms and did not recommend cholecystectomy. No improvement in liver enzymes, which have increased. T. Bili 7.2, AST 142, ALT 100, Alk Phosph 1285. AFP 9.5, Hepatitis panel negative, alpha 1 antitrypsin 291, ceruloplasmin negative marcello negative, asma negative, ama < 20.0 Rpt. Liver biopsy (07/30/16) with severe chronic hepatitis with bridging fibrosis and cirrhosis (grade 2/4; stage 3-4/4) with associated bile stasis, fatty change and histopathologic features most suggestive of drug induced liver disease ( including alcohol)- There is no evidence of primary biliary cirrhosis or primary sclerosing cholangitis in this biopsy material. Cyotplasmic inclusions suggestive of Alpha-antitrypsin are prsent as may be observed in cirrhotic livers however it is suggested that serologic studies be performed. The pathologic features present in this biopsy are different from that observed in the liver biopsy of 01/19/14. - Hx of non-Hodgkin's lymphoma and completed chemotherapy in 2005, but has had an ongoing problem with biliary strictures and sclerosing cholangitis. Plan: - TOO - Await CT scan abdomen/pelvis - Cont. Abx per ID recommendations - Cont. PPI - Cont. Miralax - CBC, LFT's in am - Pain management - Supportive care - [facility] declined patient because they do not feel that they would do anything different with regards to her care - Further recommendations to follow based on results of above. - Pt seen and examined by Dr. Jarvis and myself and this note is written on his behalf (Aliyah Mosher) Physician Comments Seen and examined with NICK[facility], sepsis from cholangitis vs. pneumonia. CT -p. Discussed with Izzy Darby and Adeel Dillard.PTC drain draining well with no pus or blood. Appreciate ID consult. MOnitor labs. (Madison Jarvis MD) Aliyah Mosher Aug 02, 2016 10:29 Madison Jarvis MD Aug 02, 2016 13:39
[2016-08-02] MEDS ORDERED: IOHEXOL 350 MG/ML 10 ML VIAL (for RAD DIAG) IV ONE (10:43)
--- NOTE | 2016-08-02 11:56 | RADRPT ---
EXAM DATE/TIME: 08/02/2016 10:43 [facility] COMPARISON: CT ABDOMEN & PELVIS W CONTRAST, July 19, 2016, 16:00. INDICATIONS: Abdominal pain. IV CONTRAST: 95 cc Omnipaque 350 (iohexol) IV ORAL CONTRAST: Prescribed oral contrast ingested. RADIATION DOSE: 6.09 CTDIvol (mGy) MEDICAL HISTORY: Ulcers. Lymphoma. Kidney stones. Diabetes. SURGICAL HISTORY: Splenectomy. ENCOUNTER: Subsequent ACUITY: 2 weeks PAIN SCALE: 10/10 LOCATION: All quadrants. TECHNIQUE: Volumetric scanning of the abdomen and pelvis was performed. Using automated exposure control and adjustment of the mA and/or kV according to patient size, radiation dose was kept as low as reasonably achievable to obtain optimal diagnostic quality images. FINDINGS: There is a cirrhotic liver. There is hypertrophy of the let lobe and atrophy of the right lobe. Pat ient has a biliary drain in place from the left lobe. There is pneumobilia. There is mild ascites seen around the live r and in the right pericolic gutter region. There is also some mild ascites in the left pericolic gutter region. The gallbladder does not appear to be distended. The spleen is absent. Patient is likely status post splenectomy. There is some dilatation of the pancreatic duct in the pancreatic body measuring 7 mm. This appearance is unchange d. The adrenal glands appear grossly normal. There is an 8 mm non-obstructing renal stone at the inferior l eft collecting system. The kidneys otherwise appear normal. There is no hydronephrosis. There is moderate amount of stool seen throughout the colon especially on the right. Significantly d ilated small bowel is not seen. The pelvic structures appear grossly intact. There is a mild amount of free flui d in the pelvis. There is a mild left pleural effusion. There is areas of atelectasis or consolidation seen at the po sterior lower lobes bilaterally being more prominent on the left. The bony structures are grossly intact. CONCLUSION: 1. Cirrhotic liver. 2. Biliary drain in place from the left lobe. There is pneumobilia seen. 3. Non-obstructing 8 mm left renal stone. 4. Status post splenectomy. 5. Mild ascites in the pericolic regions and in the pelvis. 6. Dilatation of the pancreatic duct and the pancreatic body. The pancreatic head is unremarkable. 7. Mild left pleural effusion. There is areas of atelectasis or consolidation at the lung bases megan aterally. Mele Cuba MD on August 02, 2016 at 11:15 Board Certified Radiologist. This report was verified electronically.
[2016-08-02] MEDS: SODIUM CHLOR 0.9% 1000 ML INJ 1,000 ML IV SCH (12:12)
--- NOTE | 2016-08-02 12:25 | HHI.PR ---
Subjective Remarks Patient became more septic yesterday and was instructed to the ICU. She reports feeling slightly better today. Still tachycardic but her blood pressure is better. She denies shortness of breath is still having persistent diffuse abdominal pain Objective Vitals Vital Signs Date Time Temp Pulse Resp B/P Pulse Ox O2 Delivery O2 Flow Rate FiO2 08/02/16 10:00 98 08/02/16 08:00 102 08/02/16 08:00 100.0 102 26 115/75 100 08/02/16 07:00 Room Air 08/02/16 06:00 89 08/02/16 04:00 98.8 90 16 111/66 96 08/02/16 04:00 90 08/02/16 02:00 78 08/02/16 00:00 98.2 72 16 95/57 95 08/02/16 00:00 72 08/01/16 22:00 81 08/01/16 20:00 98.9 101 18 93/58 95 08/01/16 20:00 101 08/01/16 19:00 Room Air 08/01/16 16:30 103.0 118 17 99/62 94 I/O 08/01/16 08/01/16 08/01/16 08/02/16 08/02/16 08/02/16 07:00 15:00 23:00 07:00 15:00 23:00 Intake Total 502 ml 1062 ml 949 ml 1120 ml Output Total 850 ml 50 ml 580 ml 600 ml Balance -348 ml 1012 ml 369 ml 520 ml Intake Oral 400 ml 960 ml 550 ml IV Total 102 ml 102 ml 399 ml 1120 ml Output Urine Total 800 ml 550 ml 550 ml Drainage Total 50 ml 50 ml 30 ml 50 ml # Voids 3 2 # Bowel Movements 0 0 Result Diagram: 08/02/16 0451 08/02/16 0451 Objective Remarks GENERAL: Chronically ill-appearing female appear to be in pain. CARDIOVASCULAR: Normal rate and regular rhythm without murmurs, gallops, or rubs. RESPIRATORY: Good respiratory efforts. Breath sounds equal and clear to auscultation bilaterally. GASTROINTESTINAL: Abdomen soft, very tender to palpation. Normal active bowel sounds. There is a drain in place mid abdomen draining bilious fluid. MUSCULOSKELETAL: Extremities without cyanosis, or edema. NEURO: Alert & Oriented x4 to person, place, time, situation. Moves all ext x4 PSYCH: Appropriate mood and affect. Procedures Biliary drain placement. A/P Assessment and Plan 46-year-old female: Septic shock, Klebsiella pneumonia bacteremia, cholangitis: Setback yesterday and was transferred back to the ICU. Improved today. Not on pressors. -Antibiotics per infectious disease. - Repeat blood cultures growing gram-negative romeo. - Follow closely. Acute cholangitis/Liver cirrhosis: cholangitis. Per Pathologist liver biopsy not consistent with PSC, more suggestive of Cirrhosis. - Appreciate GI following. Liver enzymes slightly improved. Status post ERCP > left hepatic tree stricture, continue antibiotic, S/P liver biopsy. - Patient was being considered for transfer to [facility]. However [facility] declined transfer as they do not believe they would do anything different. - S/P biliary drain placement on 07/31/16 by IR per GI recs -Regular diet as tolerated. Monitor drain output. Discussed with GI. Repeat abdominal CT today. Case to be reviewed with IR. Coagulopathy: Likely secondary to liver disease. - Monitor CBC and coags. s/p transfusion 3 u FFP and Vitamin K 10mg IV x1 on 07/20 for INR 11 now INR 1.0 On Vitamin K 10mg daily per GI Hypokalemia: Replace and monitor. GI prophylaxis: PPI. Stool softener PRN constipation. DVT PPx: SCDs. Discharge Planning Stable for transfer to floor. Michelle Barney MD Aug 02, 2016 12:25
--- NOTE | 2016-08-02 12:27 | HHI.PR ---
Objective Vitals Vital Signs Date Time Temp Pulse Resp B/P Pulse Ox O2 Delivery O2 Flow Rate FiO2 08/02/16 10:00 98 08/02/16 08:00 102 08/02/16 08:00 100.0 102 26 115/75 100 08/02/16 07:00 Room Air 08/02/16 06:00 89 08/02/16 04:00 98.8 90 16 111/66 96 08/02/16 04:00 90 08/02/16 02:00 78 08/02/16 00:00 98.2 72 16 95/57 95 08/02/16 00:00 72 08/01/16 22:00 81 08/01/16 20:00 98.9 101 18 93/58 95 08/01/16 20:00 101 08/01/16 19:00 Room Air 08/01/16 16:30 103.0 118 17 99/62 94 I/O 08/01/16 08/01/16 08/01/16 08/02/16 08/02/16 08/02/16 07:00 15:00 23:00 07:00 15:00 23:00 Intake Total 502 ml 1062 ml 949 ml 1120 ml Output Total 850 ml 50 ml 580 ml 600 ml Balance -348 ml 1012 ml 369 ml 520 ml Intake Oral 400 ml 960 ml 550 ml IV Total 102 ml 102 ml 399 ml 1120 ml Output Urine Total 800 ml 550 ml 550 ml Drainage Total 50 ml 50 ml 30 ml 50 ml # Voids 3 2 # Bowel Movements 0 0 Result Diagram: 08/02/16 0451 08/02/16 045 Objective Remarks GENERAL: Chronically ill-appearing female appear to be in pain. CARDIOVASCULAR: Normal rate and regular rhythm without murmurs, gallops, or rubs. RESPIRATORY: Good respiratory efforts. Breath sounds equal and clear to auscultation bilaterally. GASTROINTESTINAL: Abdomen soft, very tender to palpation. Normal active bowel sounds. There is a drain in place mid abdomen draining bilious fluid. MUSCULOSKELETAL: Extremities without cyanosis, or edema. NEURO: Alert & Oriented x4 to person, place, time, situation. Moves all ext x4 PSYCH: Appropriate mood and affect. Procedures Biliary drain placement. A/P Assessment and Plan 46-year-old female: Status post septic shock, Klebsiella pneumonia bacteremia: -Antibiotics per infectious disease. Zosyn discontinued. Continue Unasyn. - Repeat blood cultures no growth to date. - Fever this morning. Follow closely. Will discuss with infectious disease. Acute cholangitis/Liver cirrhosis: ? Sclerosing cholangitis - Appreciate GI following. Liver enzymes still elevated. Status post ERCP > left hepatic tree stricture, continue antibiotic, S/P liver biopsy. - Patient was being considered for transfer to [facility]. However [facility] declined transfer as they do not believe they would do anything different. - S/P biliary drain placement on 07/31/16 by IR per GI recs -Regular diet as tolerated. Monitor drain output. Coagulopathy: Likely secondary to liver disease. - Monitor CBC and coags. s/p transfusion 3 u FFP and Vitamin K 10mg IV x1 on 07/20 for INR 11 now INR 1.0 On Vitamin K 10mg daily per GI Hypokalemia: Replace and monitor. GI prophylaxis: PPI. Stool softener PRN constipation. DVT PPx: SCDs. Michelle Barney MD Aug 02, 2016 12:26
--- NOTE | 2016-08-02 13:09 | HHI.IDPN ---
Subjective Subjective Remarks sp Biliary Drainage placement 07/31 events noted Pt yday became hypotensive and ta hycardic, transferred to ICU Responded to IVF Not on pressors CT abd/pelv showed peumobilia and chronic findings She is better today Takes small amount o f PO slowly + Low grade fever up to 100.0 co abdominal pain slightly better Antibiotics zosyn vanco micafungin Lines PIVs in BL forearms wo e/o infx Allergies: Coded Allergies: Gadolinium Derivatives (Verified Allergy, Severe, BREATHING PROBLEMS, N/V, CHILLS, 07/19/16) MRI PRECAUTION (Verified Allergy, Severe, NAUSEA; PER PATIENT IT IS A GADOLINIUM ALLERGY KMD 11/25/12, 07/19/16) Morphine (Verified Allergy, Severe, BREATHING PROBLEMS, 07/19/16) Toradol (Verified Allergy, Severe, Shortness of Breath, 07/19/16) *MDRO Multi-Drug Resistant Organism (Verified Adverse Reaction, Unknown, MRSA, 07/20/16) 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 Vital Signs Date Time Temp Pulse Resp B/P Pulse Ox O2 Delivery O2 Flow Rate FiO2 08/02/16 10:00 98 08/02/16 08:00 102 08/02/16 08:00 100.0 102 26 115/75 100 08/02/16 07:00 Room Air 08/02/16 06:00 89 08/02/16 04:00 98.8 90 16 111/66 96 08/02/16 04:00 90 08/02/16 02:00 78 08/02/16 00:00 98.2 72 16 95/57 95 08/02/16 00:00 72 08/01/16 22:00 81 08/01/16 20:00 98.9 101 18 93/58 95 08/01/16 20:00 101 08/01/16 19:00 Room Air 08/01/16 16:30 103.0 118 17 99/62 94 08/01/16 08/01/16 08/02/16 15:00 23:00 07:00 Intake Total 1062 ml 949 ml 1120 ml Output Total 50 ml 580 ml 600 ml Balance 1012 ml 369 ml 520 ml Intake Oral 960 ml 550 ml IV Total 102 ml 399 ml 1120 ml Output Urine Total 550 ml 550 ml Drainage Total 50 ml 30 ml 50 ml # Voids 3 2 # Bowel Movements 0 . Laboratory Tests Test 08/01/16 08/02/16 12:06 04:51 White Blood Count 14.0 TH/MM3 14.6 TH/MM3 Red Blood Count 3.86 MIL/MM3 3.76 MIL/MM3 Hemoglobin 10.9 GM/DL 10.5 GM/DL Hematocrit 33.3 % 32.9 % Mean Corpuscular Volume 86.1 FL 87.3 FL Mean Corpuscular Hemoglobin 28.2 PG 27.9 PG Mean Corpuscular Hemoglobin 32.7 % 31.9 % Concent Red Cell Distribution Width 19.8 % 19.9 % Platelet Count 371 TH/MM3 343 TH/MM3 Mean Platelet Volume 11.0 FL 11.0 FL Neutrophils (%) (Auto) % % Lymphocytes (%) (Auto) % % Monocytes (%) (Auto) % % Eosinophils (%) (Auto) % % Basophils (%) (Auto) % % Neutrophils # (Auto) TH/MM3 TH/MM3 Lymphocytes # (Auto) TH/MM3 TH/MM3 Monocytes # (Auto) TH/MM3 TH/MM3 Eosinophils # (Auto) TH/MM3 TH/MM3 Basophils # (Auto) TH/MM3 TH/MM3 CBC Comment AUTO DIFF AUTO DIFF Differential Total Cells 100 100 Counted Neutrophils % (Manual) 83 % 83 % Band Neutrophils % 11 % 11 % Lymphocytes % 4 % 4 % Monocytes % 2 % 2 % Neutrophils # (Manual) 13.2 TH/MM3 13.7 TH/MM3 Differential Comment FINAL DIFF FINAL DIFF MANUAL MANUAL Platelet Estimate NORMAL NORMAL Platelet Morphology Comment ENLARGED NORMAL Target Cells 3+ 3+ Kelly-[place] Bodies PRESENT PRESENT Laboratory Tests Test 08/01/16 08/02/16 12:06 04:51 Sodium Level 134 MEQ/L 138 MEQ/L Potassium Level 3.3 MEQ/L 3.2 MEQ/L Chloride Level 97 MEQ/L 101 MEQ/L Carbon Dioxide Level 25.5 MEQ/L 24.8 MEQ/L Anion Gap 12 MEQ/L 12 MEQ/L Blood Urea Nitrogen 6 MG/DL 8 MG/DL Creatinine 0.51 MG/DL 0.38 MG/DL Estimat Glomerular Filtration 130 ML/MIN 182 ML/MIN Rate Random Glucose 266 MG/DL 164 MG/DL Calcium Level 8.4 MG/DL 8.9 MG/DL Total Bilirubin 7.2 MG/DL 7.8 MG/DL Aspartate Amino Transf 142 U/L 116 U/L (AST/SGOT) Alanine Aminotransferase 100 U/L 96 U/L (ALT/SGPT) Alkaline Phosphatase 1285 U/L 1189 U/L Total Protein 6.0 GM/DL 6.7 GM/DL Albumin 2.3 GM/DL 2.3 GM/DL Microbiology Date/Time Procedure Status Source Growth 08/01/16 16:15 Aerobic Blood Culture - Preliminary Resulted Blood Peripheral Gram Negative Kurtis 08/01/16 16:15 Anaerobic Blood Culture - Final Resulted Blood Peripheral QNS - SEE AEROBE REPORT 08/01/16 16:15 Aerobic Blood Culture - Preliminary Resulted Blood Peripheral NO GROWTH IN 1 DAY 08/01/16 16:15 Anaerobic Blood Culture - Final Resulted Blood Peripheral QNS - SEE AEROBE REPORT Imaging Last Impressions Bile Duct Drainage 07/31/16 0000 Signed Impressions: Service Date/Time: Sunday, July 31, 2016 13:05 - CONCLUSION: Uncomplicated biliary stent placement as above. 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 Adeel Esteban MD Cholangiopancreatography MRI 07/30/16 0000 Signed Impressions: Service Date/Time: Saturday, July 30, 2016 13:21 - CONCLUSION: 1. Dilatation of the left intrahepatic biliary ducts with multiple filling defects likely related to air. There does appear to be narrowing of the central biliary ducts. The common bile duct is not clearly recognizable. The configuration at the left ducts appears similar to the prior examination. 2. Very prominent hypertrophy of the left lobe and atrophy of the right lobe likely secondary to cirrhosis. The liver does appear enlarged. Mele Cuba MD Liver Biopsy CT 07/27/16 0000 Signed Impressions: Service Date/Time: Wednesday, July 27, 2016 15:47 - CONCLUSION: Uncomplicated CT guided biopsy of the liver. Mele Yoo MD GI Procedure 07/26/16 0000 Signed Impressions: Service Date/Time: July 10:22 - CONCLUSION: ERCP as above. Feng Rod MD Chest X-Ray 07/19/16 1141 Signed Impressions: Service Date/Time: July 12:25 - CONCLUSION: 1. No acute cardiopulmonary findings. Farzad Morales MD Head CT 07/19/16 0000 Signed Impressions: Service Date/Time: July 16:01 - CONCLUSION: 1. No evidence of acute intracranial pathology. No masses are identified. Nestor Isabel MD Abdomen/Pelvis CT 07/19/16 0000 Signed Impressions: Service Date/Time: July 16:00 - CONCLUSION: Continued cirrhotic appearance of the liver. Some areas of scarring or volume loss throughout the right lobe similar to the previous study. No definite solid mass is seen. Status post splenectomy. No significant retroperitoneal adenopathy. Fadi Deng MD Physical Exam CONSTITUTIONAL/GENERAL: This is a thin chronically ill appearing patient, in no apparent distress. Appers ill LINES: b/l forearms PIVs wo e/o infx SKIN: + jaundice, rashes, or lesions. . Skin temperature appropriate. Not diaphoretic. EYES: Pupils equal and round and reactive. Extraocular motions intact. + more prominent scleral icterus. No injection or drainage. Fundi not examined. CARDIOVASCULAR: Regular rate and rhythm without murmurs, gallops, or rubs. No JVD. Peripheral pulses symmetric. RESPIRATORY/CHEST: Symmetric, unlabored respirations. Clear to auscultation. Breath sounds equal bilaterally. No wheezes, rales, or rhonchi. GASTROINTESTINAL: Abdomen soft, marked abdominal tenderness with max in RUQ w/ o guarding or rebound , at least moderate ly distended. + tender hepatomegaly , or palpable masses. No guarding. Bowel sounds present. Bile draine in place c cloudy light brown bile MUSCULOSKELETAL: Extremities without clubbing, cyanosis, or edema. No joint tenderness or effusion noted. No calf tenderness. No mottling or clubbing. Well perfused NEUROLOGICAL: Awake and alert. Motor and sensory grossly within normal limits. Follows commands. Normal speech. Moves all extremities. Assessment & Plan Remarks Recurrent biliary sepsis Sepsis, Kleb pneumo, biliary origin - on admission Cholangitis sp biliary draine placement PSC underlysing dz New septic episode with biliary sepsis: GNR bacteremia - source is biliary cont zoyn, cont micafungin for now fu BC untill final dc tra shaver RN at b/s will dw GI re further tx plan Christiane Jackson MD Aug 02, 2016 13:09
[2016-08-02] MEDS ORDERED: POTASSIUM CHLORIDE 10 MEQ CONTROLLED RELEASE TAB PO ONE (14:15)
[2016-08-02] MEDS: MICAFUNGIN INJ 150 MG in SODIUM CHLORIDE 0.9% INJ 100 ML IV SCH (16:09)
[2016-08-03] VITALS (15 sets, daily range): BP systolic 101–122; BP diastolic 67–80; PULSE 82–118; RESP 16–22; TEMP 98.1–98.7; O2SAT 95–100
[2016-08-03] MEDS: SODIUM CHLOR 0.9% 1000 ML INJ 1,000 ML IV SCH ×4 (00:30→22:50)
[2016-08-03] MEDS: HYDROmorphone HCL PF 1 MG/ML VIAL IV PRN ×7 (02:53→22:49)
[2016-08-03] MEDS: CHLORHEXIDINE GLUCONATE 2 % 1 PACK (2 CLOTHS) TOP SCH ×2 (04:00→22:00)
[2016-08-03] MEDS: INSULIN NovoLIN REGULAR SUPPLEMENTAL SCALE SQ SCH ×4 (04:19→21:30)
[2016-08-03] MEDS: PIPERACIL-TAZO 3.375 GM PREMIX 50 ML IV SCH ×4 (04:40→21:30)
[2016-08-03] MEDS ORDERED: PHARMACY ORDERED LAB XX ONE ×2 (05:45→17:45)
[2016-08-03 05:56] LABS: HEMATOCRIT 28.1 % (35.0-46.0); MEAN CELL VOLUME 85.1 FL (80.0-100.0); MEAN CORPUSCULAR HEMOGLOBIN 27.6 PG (27.0-34.0); MEAN CORPUSCULAR HGB CONC 32.5 % (32.0-36.0); PLATELET COUNT 326 TH/MM3 (150-450); RED CELL DISTRIBUTION WIDTH 20.7 % (11.6-17.2); WHITE BLOOD COUNT 8.9 TH/MM3 (4.0-11.0)
[2016-08-03 05:58] LABS: REVIEW FLAG FINAL
[2016-08-03 06:10] LABS: BICARBONATE 25.2 MEQ/L (21.0-32.0); POTASSIUM 3.1 MEQ/L (3.5-5.1)
[2016-08-03] MEDS ORDERED: POTASSIUM CHLORIDE 10 MEQ CONTROLLED RELEASE TAB PO ONE (06:15)
[2016-08-03 06:31] LABS: INDIRECT BILIRUBIN 1.2 MG/DL (0.0-0.8); TOTAL BILIRUBIN ADULT 5.2 MG/DL (0.2-1.0)
[2016-08-03] MEDS: VANCOMYCIN 1,000 MG/NS 250 ML IV SCH ×2 (06:47)
[2016-08-03] MEDS: PANTOPRAZOLE SODIUM 40 MG VIAL IV SCH (07:51)
[2016-08-03] MEDS: SODIUM CHLORIDE 0.9% 10 ML VIAL IRRIGATION SCH (07:52)
[2016-08-03] MEDS: POLYETHYLENE GLYCOL 17 GM PKG PO SCH (07:52)
--- NOTE | 2016-08-03 08:54 | HHI.GIFU ---
Subjective Remarks Pt resting in bed. Tolerating diet. Low grade fever yesterday evening. None since 1899. Still with abdominal pain, although improved. Nausea without vomiting. States she had a bowel movement yesterday. (Aliyah Mosher ) Objective Vitals I&O Vital Signs Date Time Temp Pulse Resp B/P Pulse Ox O2 Delivery O2 Flow Rate FiO2 08/03/16 06:00 84 08/03/16 05:00 84 08/03/16 04:15 87 08/03/16 04:15 98.4 89 16 103/72 95 08/03/16 04:00 84 08/03/16 03:00 88 08/03/16 03:00 96 Room Air 08/03/16 02:00 98 08/03/16 01:00 94 08/03/16 00:00 96 08/02/16 23:00 88 08/02/16 23:00 98.9 113 20 133/88 98 08/02/16 23:00 96 Room Air 08/02/16 22:00 100 08/02/16 21:24 98 21 08/02/16 21:00 100 08/02/16 20:00 112 08/02/16 19:00 100.3 101 18 109/77 98 08/02/16 19:00 97 Room Air 08/02/16 19:00 97 08/02/16 18:41 99.6 103 20 130/85 98 08/02/16 18:41 98 08/02/16 18:00 98 08/02/16 16:00 95 08/02/16 14:00 104 08/02/16 12:00 109 08/02/16 12:00 98.4 109 21 104/62 97 08/02/16 10:00 98 I/O 08/02/16 08/02/16 08/02/16 08/03/16 08/03/16 08/03/16 07:00 15:00 23:00 07:00 15:00 23:00 Intake Total 1120 ml 2189 ml Output Total 600 ml 1010 ml 1000 ml Balance 520 ml 1179 ml -1000 ml Intake Oral 1420 ml IV Total 1120 ml 769 ml Output Urine Total 550 ml 1000 ml 1000 ml Drainage Total 50 ml 10 ml # Voids 2 2 # Bowel Movements 1 Laboratory Laboratory Tests Test 08/03/16 05:03 White Blood Count 8.9 Red Blood Count 3.30 Hemoglobin 9.1 Hematocrit 28.1 Mean Corpuscular Volume 85.1 Mean Corpuscular Hemoglobin 27.6 Mean Corpuscular Hemoglobin 32.5 Concent Red Cell Distribution Width 20.7 Platelet Count 326 Mean Platelet Volume 10.8 Sodium Level 137 Potassium Level 3.1 Chloride Level 101 Carbon Dioxide Level 25.2 Anion Gap 11 Blood Urea Nitrogen 4 Creatinine 0.31 Estimat Glomerular Filtration 231 Rate Random Glucose 240 Calcium Level 8.3 Total Bilirubin 5.2 Direct Bilirubin 4.0 Indirect Bilirubin 1.2 Aspartate Amino Transf 92 (AST/SGOT) Alanine Aminotransferase 73 (ALT/SGPT) Alkaline Phosphatase 956 Total Protein 5.3 Albumin 1.8 Date/Time Procedure Status Source Growth 08/01/16 16:15 Aerobic Blood Culture - Preliminary Resulted Blood Peripheral Gram Negative Kurtis 08/01/16 16:15 Anaerobic Blood Culture - Final Resulted Blood Peripheral QNS - SEE AEROBE REPORT Imaging Last Impressions Abdomen/Pelvis CT 08/02/16 0000 Signed Impressions: Service Date/Time: July 10:43 - CONCLUSION: 1. Cirrhotic liver. 2. Biliary drain in place from the left lobe. There is pneumobilia seen. 3. Non-obstructing 8 mm left renal stone. 4. Status post splenectomy. 5. Mild ascites in the pericolic regions and in the pelvis. 6. Dilatation of the pancreatic duct and the pancreatic body. The pancreatic head is unremarkable. 7. Mild left pleural effusion. There is areas of atelectasis or consolidation at the lung bases bilaterally. Mele Cuba MD Bile Duct Drainage 07/31/16 0000 Signed Impressions: Service Date/Time: Sunday, July 31, 2016 13:05 - CONCLUSION: Uncomplicated biliary stent placement as above. 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 Adeel Esteban MD Cholangiopancreatography MRI 07/30/16 0000 Signed Impressions: Service Date/Time: Saturday, July 30, 2016 13:21 - CONCLUSION: 1. Dilatation of the left intrahepatic biliary ducts with multiple filling defects likely related to air. There does appear to be narrowing of the central biliary ducts. The common bile duct is not clearly recognizable. The configuration at the left ducts appears similar to the prior examination. 2. Very prominent hypertrophy of the left lobe and atrophy of the right lobe likely secondary to cirrhosis. The liver does appear enlarged. Mele Cuba MD Liver Biopsy CT 07/27/16 0000 Signed Impressions: Service Date/Time: Wednesday, July 27, 2016 15:47 - CONCLUSION: Uncomplicated CT guided biopsy of the liver. Mele Yoo MD GI Procedure 07/26/16 0000 Signed Impressions: Service Date/Time: July 10:22 - CONCLUSION: ERCP as above. Feng Rod MD Chest X-Ray 07/19/16 1141 Signed Impressions: Service Date/Time: July 12:25 - CONCLUSION: 1. No acute cardiopulmonary findings. Farzad Morales MD Head CT 07/19/16 0000 Signed Impressions: Service Date/Time: July 16:01 - CONCLUSION: 1. No evidence of acute intracranial pathology. No masses are identified. Nestor Isabel MD Physical Exam HEENT: Normocephalic; atraumatic, + jaundice CHEST: CTA CARDIAC: RRR ABDOMEN: Soft, mildly distended, diffuse tenderness-improved; no hepatosplenomegaly; bowel sounds x 4 quadrants. Biliary drain with small amount dark green drainage EXTREMITIES: No clubbing, cyanosis, or edema. SKIN: Normal; no rash; + jaundice. ACADEMIC DEAN: No focal deficits; A&O x3. (Aliyah Mosher) Assessment and Plan Plan ASSESSMENT: - Sclerosing Cholangitis/Biliary Strictures with sepsis/fever, N/V/Abdominal pain. She is currently following with [facility]. Abdomen/Pelvis CT (07/19/16)----> Continued cirrhotic appearance of the liver. Some areas of scarring or volume loss throughout the right lobe similar to the previous study. No definite solid mass is seen. Status post splenectomy. No significant retroperitoneal adenopathy. MRCP (07/23/16)----> 1. Abnormally dilated left intrahepatic bile ducts with caliber change near the ankit hepatis at the confluence. No mass is appreciated in this area on this examination or the recent CT of the abdomen. Therefore, etiology is nonspecific. Stricture or small mass are the differential diagnostic considerations. These ducts have a similar appearance on the August 2014 examination. Suggest correlation with the clinical history. 2. Normal right intrahepatic bile ducts and common bile duct. Gallbladder is decompressed but demonstrates severe diffuse wall edema which may be related to the portal hypertension and chronic liver disease. 3. Abnormally dilated main pancreatic duct in the tail with associated dilated side branches. There is abrupt caliber change in the mid body. The appearance is similar to multiple prior studies dating back to 2015. I do not see a mass as the cause and since there has been no significant change this may be related to a stricture. Segmental IPMN is also a consideration but felt less likely. Suggest attention to this at followup imaging to confirm stability. 4. The liver demonstrates features diagnostic of cirrhosis. There is a moderate volume of free fluid within the abdomen and pelvis likely related to portal hypertension. There are also small bilateral pleural effusions. Bacteremia with Klebsiella, GNR. [facility] declined patient for transfer because they feel there is nothing they will do differently than we are doing here with regards to her care. S/P ERCP (07/26/16)-----> Ampulla C/W previous sphincterotomy, some sludge removed by balloon, free flow of bile, not able to see the left hepatic tree. No dye in that area, possible stricture, possible stricture in the left hepatic duct. 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 Pt had worsening pain, high fevers, hypotension, tachycardia on 08/01 and her abx were changed by ID to Zosyn and Vanco. Rpt Bcx from 08/01 with GNR, Citrobacter species. Rpt. Abdomen/ Pelvis CT (08/02/16)-------> 1. Cirrhotic liver. 2. Biliary drain in place from the left lobe. There is pneumobilia seen. 3. Non-obstructing 8 mm left renal stone. 4. Status post splenectomy. 5. Mild ascites in the pericolic regions and in the pelvis. 6. Dilatation of the pancreatic duct and the pancreatic body. The pancreatic head is unremarkable. 7. Mild left pleural effusion. There is areas of atelectasis or consolidation at the lung bases bilaterally. She has improved since abx changed. Had low grade fever yesterday evening, was afebrile overnight. Still with abdominal pain, although improved from yesterday. Biliary drain draining. LFTs improved today with T. Bili 5.2, AST 92, ALT 73, Alk phosph 956. Zosyn, Vanco, Micafungin - Sepsis, Bacteremia, Fevers, Leukocytosis. Original BCx with Klebsiella, GNR. Rpt. with GNR, Citrobacter species. Low grade fevers yesterday evening, none overnight. Zosyn, Vanco, Micafungin. - Liver cirrhosis. S/P liver biopsy 07/27/16, results pending. S/P liver biopsy ( 2013) at that time of both her normal liver parenchyma and her liver mass. The normal liver parenchyma revealed chronic hepatitis with bridging fibrosis and cirrhosis grade 2/4, stage 3-4/4 exhibiting bile duct tubular damage and ductopenia, chronic hepaititis with bridging fibrosis. Of note, specimen #1 suggested a differential diagnosis of primary biliary cirrhosis vs. drug induced disease. The histopathology did not suggest that of primary sclerosing cholangitis. The liver mass suggested chronic hepatitis with bridging fibrosis 2/4, stage III/4. Of note, she was evaluated by [facility], but states she was told that her MELD score was too low to be considered for liver transplant. AFP 9.5, Ceruloplasmin pending. MARCELLO negative, ASMA negative, AMA <20.0, Ferritin 159, Iron sat 17.9%. Liver biopsy pending. - Hx of abnormal imaging of the gallbladder. HIDA (04/27/16)----> Nonvisualization of the gallbladder. ADDENDUM: Delayed imaging of the abdomen documents an ovoid area of activity in the right upper quadrant in the expected location of the gallbladder based on prior cross-sectional imaging studies. Delayed visualization the gallbladder should exclude complete cystic duct obstruction. However, based on prior imaging studies, the gallbladder demonstrated severe diffuse wall edema. S/P GS evaluation during last admission who did not feel this was contributing to her symptoms and did not recommend cholecystectomy. AFP 9.5, Hepatitis panel negative, alpha 1 antitrypsin 291, ceruloplasmin negative marcello negative, asma negative, ama < 20.0 Rpt. Liver biopsy (07/30/16) with severe chronic hepatitis with bridging fibrosis and cirrhosis (grade 2/4; stage 3-4/4) with associated bile stasis, fatty change and histopathologic features most suggestive of drug induced liver disease ( including alcohol)- There is no evidence of primary biliary cirrhosis or primary sclerosing cholangitis in this biopsy material. Cyotplasmic inclusions suggestive of Alpha-antitrypsin are prsent as may be observed in cirrhotic livers however it is suggested that serologic studies be performed. The pathologic features present in this biopsy are different from that observed in the liver biopsy of 01/19/14. LFT improved. - Hx of non-Hodgkin's lymphoma and completed chemotherapy in 2005, but has had an ongoing problem with biliary strictures and sclerosing cholangitis. Plan: - TOO - Cont. Abx per ID recommendations - Add Ursodiol - Cont. PPI - Cont. Miralax - Monitor labs - Pain management - Cap Biliary drain. - Supportive care - [facility] declined patient because they do not feel that they would do anything different with regards to her care - Further recommendations to follow based on results of above. - Pt seen and examined by Dr. Jarvis and myself and this note is written on his behalf (Aliyah Mosher) Physician Comments Seen and examined with NICKIE, doing better today. Cap biliary drain. Fu at [facility] for possible cholecystectomy and ERCP/ stent. Actigal 300mg 1 po bid. ( Madison Jarvis MD) Aliyah Mosher Aug 03, 2016 08:54 Madison Jarvis MD Aug 03, 2016 12:21
[2016-08-03] MEDS: URSODIOL 300 MG CAP PO SCH ×2 (10:55→21:30)
--- NOTE | 2016-08-03 11:13 | HHI.PR ---
Subjective Remarks Patient still complains of abdominal pain. Sleeping when I arrived. No nausea or vomiting. Objective Vitals Vital Signs Date Time Temp Pulse Resp B/P Pulse Ox O2 Delivery O2 Flow Rate FiO2 08/03/16 10:00 82 08/03/16 09:00 118 08/03/16 08:00 110 08/03/16 07:00 88 08/03/16 07:00 98.7 97 20 119/80 98 08/03/16 06:00 84 08/03/16 05:00 84 08/03/16 04:15 87 08/03/16 04:15 98.4 89 16 103/72 95 08/03/16 04:00 84 08/03/16 03:00 88 08/03/16 03:00 96 Room Air 08/03/16 02:00 98 08/03/16 01:00 94 08/03/16 00:00 96 08/02/16 23:00 88 08/02/16 23:00 98.9 113 20 133/88 98 08/02/16 23:00 96 Room Air 08/02/16 22:00 100 08/02/16 21:24 98 21 08/02/16 21:00 100 08/02/16 20:00 112 08/02/16 19:00 100.3 101 18 109/77 98 08/02/16 19:00 97 Room Air 08/02/16 19:00 97 08/02/16 18:41 99.6 103 20 130/85 98 08/02/16 18:41 98 08/02/16 18:00 98 08/02/16 16:00 95 08/02/16 14:00 104 08/02/16 12:00 109 08/02/16 12:00 98.4 109 21 104/62 97 I/O 08/02/16 08/02/16 08/02/16 08/03/16 08/03/16 08/03/16 07:00 15:00 23:00 07:00 15:00 23:00 Intake Total 1120 ml 2189 ml Output Total 600 ml 1010 ml 1000 ml Balance 520 ml 1179 ml -1000 ml Intake Oral 1420 ml IV Total 1120 ml 769 ml Output Urine Total 550 ml 1000 ml 1000 ml Drainage Total 50 ml 10 ml # Voids 2 2 # Bowel Movements 1 Result Diagram: 08/03/16 0503 08/03/16 0503 Objective Remarks GENERAL: Chronically ill-appearing female appear to be in pain. CARDIOVASCULAR: Normal rate and regular rhythm without murmurs, gallops, or rubs. RESPIRATORY: Good respiratory efforts. Breath sounds equal and clear to auscultation bilaterally. GASTROINTESTINAL: Abdomen soft, Tender to palpation. Normal active bowel sounds. There is a drain in place mid abdomen draining bilious fluid. MUSCULOSKELETAL: Extremities without cyanosis, or edema. NEURO: Alert & Oriented x4 to person, place, time, situation. Moves all ext x4 PSYCH: Appropriate mood and affect. Procedures Biliary drain placement. A/P Assessment and Plan 46-year-old female: Septic shock, Klebsiella pneumonia bacteremia, cholangitis: Setback yesterday and was transferred back to the ICU. Improved today. Not on pressors. -Antibiotics per infectious disease. - Repeat blood cultures growing Citrobacter. - Follow closely. Acute cholangitis/Liver cirrhosis: cholangitis. Per Pathologist liver biopsy not consistent with PSC, more suggestive of Cirrhosis. - Appreciate GI following. Liver enzymes improving. Status post ERCP 07/26/16> left hepatic tree stricture, continue antibiotic, S/P liver biopsy. - Patient was being considered for transfer to [facility]. However [facility] declined transfer as they do not believe they would do anything different. - S/P biliary drain placement on 07/31/16 by IR per GI recs - Regular diet as tolerated. Monitor drain output. Cont antibiotics. Coagulopathy: Likely secondary to liver disease. - Monitor CBC and coags. s/p transfusion 3 u FFP and Vitamin K 10mg IV x1 on 07/20 for INR 11 now INR 1.0 On Vitamin K 10mg daily per GI Hypokalemia: Replace and monitor. GI prophylaxis: PPI. Stool softener PRN constipation. DVT PPx: SCDs. Michelle Barney MD Aug 03, 2016 11:13
[2016-08-03] MEDS: MICAFUNGIN INJ 150 MG in SODIUM CHLORIDE 0.9% INJ 100 ML IV SCH (15:00)
--- NOTE | 2016-08-03 19:33 | HHI.IDPN ---
Subjective Subjective Remarks sp Biliary Drainage placement 07/31 doing good afebrile today yday T max 100.3 still co RUQ pain Antibiotics zosyn vanco micafungin Lines PIVs in BL forearms wo e/o infx Allergies: Coded Allergies: Gadolinium Derivatives (Verified Allergy, Severe, BREATHING PROBLEMS, N/V, CHILLS, 07/19/16) MRI PRECAUTION (Verified Allergy, Severe, NAUSEA; PER PATIENT IT IS A GADOLINIUM ALLERGY KMD 11/25/12, 07/19/16) Morphine (Verified Allergy, Severe, BREATHING PROBLEMS, 07/19/16) Toradol (Verified Allergy, Severe, Shortness of Breath, 07/19/16) *MDRO Multi-Drug Resistant Organism (Verified Adverse Reaction, Unknown, MRSA, 07/20/16) 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 Vital Signs Date Time Temp Pulse Resp B/P Pulse Ox O2 Delivery O2 Flow Rate FiO2 08/03/16 16:00 98.1 90 18 106/68 100 08/03/16 12:00 98.3 89 16 101/67 96 08/03/16 10:00 82 08/03/16 09:00 118 08/03/16 08:00 110 08/03/16 07:00 88 08/03/16 07:00 98.7 97 20 119/80 98 08/03/16 06:00 84 08/03/16 05:00 84 08/03/16 04:15 87 08/03/16 04:15 98.4 89 16 103/72 95 08/03/16 04:00 84 08/03/16 03:00 88 08/03/16 03:00 96 Room Air 08/03/16 02:00 98 08/03/16 01:00 94 08/03/16 00:00 96 08/02/16 23:00 88 08/02/16 23:00 98.9 113 20 133/88 98 08/02/16 23:00 96 Room Air 08/02/16 22:00 100 08/02/16 21:24 98 21 08/02/16 21:00 100 08/02/16 20:00 112 08/02/16 08/02/16 08/03/16 15:00 23:00 07:00 Intake Total 2189 ml Output Total 1010 ml 1000 ml Balance 1179 ml -1000 ml Intake Oral 1420 ml IV Total 769 ml Output Urine Total 1000 ml 1000 ml Drainage Total 10 ml # Voids 2 # Bowel Movements 1 . Laboratory Tests Test 08/02/16 08/03/16 04:51 05:03 White Blood Count 14.6 TH/MM3 8.9 TH/MM3 Red Blood Count 3.76 MIL/MM3 3.30 MIL/MM3 Hemoglobin 10.5 GM/DL 9.1 GM/DL Hematocrit 32.9 % 28.1 % Mean Corpuscular Volume 87.3 FL 85.1 FL Mean Corpuscular Hemoglobin 27.9 PG 27.6 PG Mean Corpuscular Hemoglobin 31.9 % 32.5 % Concent Red Cell Distribution Width 19.9 % 20.7 % Platelet Count 343 TH/MM3 326 TH/MM3 Mean Platelet Volume 11.0 FL 10.8 FL Neutrophils (%) (Auto) % Lymphocytes (%) (Auto) % Monocytes (%) (Auto) % Eosinophils (%) (Auto) % Basophils (%) (Auto) % Neutrophils # (Auto) TH/MM3 Lymphocytes # (Auto) TH/MM3 Monocytes # (Auto) TH/MM3 Eosinophils # (Auto) TH/MM3 Basophils # (Auto) TH/MM3 CBC Comment AUTO DIFF Differential Total Cells 100 Counted Neutrophils % (Manual) 83 % Band Neutrophils % 11 % Lymphocytes % 4 % Monocytes % 2 % Neutrophils # (Manual) 13.7 TH/MM3 Differential Comment FINAL DIFF MANUAL Platelet Estimate NORMAL Platelet Morphology Comment NORMAL Target Cells 3+ [place] Bodies PRESENT Laboratory Tests Test 08/02/16 08/03/16 04:51 05:03 Sodium Level 138 MEQ/L 137 MEQ/L Potassium Level 3.2 MEQ/L 3.1 MEQ/L Chloride Level 101 MEQ/L 101 MEQ/L Carbon Dioxide Level 24.8 MEQ/L 25.2 MEQ/L Anion Gap 12 MEQ/L 11 MEQ/L Blood Urea Nitrogen 8 MG/DL 4 MG/DL Creatinine 0.38 MG/DL 0.31 MG/DL Estimat Glomerular Filtration 182 ML/MIN 231 ML/MIN Rate Random Glucose 164 MG/DL 240 MG/DL Calcium Level 8.9 MG/DL 8.3 MG/DL Total Bilirubin 7.8 MG/DL 5.2 MG/DL Aspartate Amino Transf 116 U/L 92 U/L (AST/SGOT) Alanine Aminotransferase 96 U/L 73 U/L (ALT/SGPT) Alkaline Phosphatase 1189 U/L 956 U/L Total Protein 6.7 GM/DL 5.3 GM/DL Albumin 2.3 GM/DL 1.8 GM/DL Magnesium Level 1.6 MG/DL Direct Bilirubin 4.0 MG/DL Indirect Bilirubin 1.2 MG/DL Microbiology Date/Time Procedure Status Source Growth 08/01/16 16:15 Aerobic Blood Culture - Preliminary Resulted Blood Peripheral Citrobacter Species 08/01/16 16:15 Anaerobic Blood Culture - Final Resulted Blood Peripheral QNS - SEE AEROBE REPORT 08/01/16 16:15 Aerobic Blood Culture - Preliminary Resulted Blood Peripheral Citrobacter Species 08/01/16 16:15 Anaerobic Blood Culture - Final Resulted Blood Peripheral QNS - SEE AEROBE REPORT Imaging Last Impressions Abdomen/Pelvis CT 08/02/16 0000 Signed Impressions: Service Date/Time: July 10:43 - CONCLUSION: 1. Cirrhotic liver. 2. Biliary drain in place from the left lobe. There is pneumobilia seen. 3. Non-obstructing 8 mm left renal stone. 4. Status post splenectomy. 5. Mild ascites in the pericolic regions and in the pelvis. 6. Dilatation of the pancreatic duct and the pancreatic body. The pancreatic head is unremarkable. 7. Mild left pleural effusion. There is areas of atelectasis or consolidation at the lung bases bilaterally. Mele Cuba MD Bile Duct Drainage 07/31/16 0000 Signed Impressions: Service Date/Time: Sunday, July 31, 2016 13:05 - CONCLUSION: Uncomplicated biliary stent placement as above. 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 Adeel Esteban MD Cholangiopancreatography MRI 07/30/16 0000 Signed Impressions: Service Date/Time: Saturday, July 30, 2016 13:21 - CONCLUSION: 1. Dilatation of the left intrahepatic biliary ducts with multiple filling defects likely related to air. There does appear to be narrowing of the central biliary ducts. The common bile duct is not clearly recognizable. The configuration at the left ducts appears similar to the prior examination. 2. Very prominent hypertrophy of the left lobe and atrophy of the right lobe likely secondary to cirrhosis. The liver does appear enlarged. Mele Cuba MD Liver Biopsy CT 07/27/16 0000 Signed Impressions: Service Date/Time: Wednesday, July 27, 2016 15:47 - CONCLUSION: Uncomplicated CT guided biopsy of the liver. Mele Yoo MD GI Procedure 07/26/16 0000 Signed Impressions: Service Date/Time: July 10:22 - CONCLUSION: ERCP as above. Feng Rod MD Chest X-Ray 07/19/16 1141 Signed Impressions: Service Date/Time: , July 19, 2016 12:25 - CONCLUSION: 1. No acute cardiopulmonary findings. Farzad Morales MD Head CT 07/19/16 0000 Signed Impressions: Service Date/Time: July 16:01 - CONCLUSION: 1. No evidence of acute intracranial pathology. No masses are identified. Nestor Isabel MD Physical Exam CONSTITUTIONAL/GENERAL: This is a thin chronically ill appearing patient, in no apparent distress. Appers ill LINES: b/l forearms PIVs wo e/o infx SKIN: + jaundice, rashes, or lesions. . Skin temperature appropriate. Not diaphoretic. EYES: Pupils equal and round and reactive. Extraocular motions intact. + more prominent scleral icterus. No injection or drainage. Fundi not examined. CARDIOVASCULAR: Regular rate and rhythm without murmurs, gallops, or rubs. No JVD. Peripheral pulses symmetric. RESPIRATORY/CHEST: Symmetric, unlabored respirations. Clear to auscultation. Breath sounds equal bilaterally. No wheezes, rales, or rhonchi. GASTROINTESTINAL: Abdomen soft, marked abdominal tenderness with max in RUQ w/ o guarding or rebound , at least moderate ly distended. + tender hepatomegaly , or palpable masses. No guarding. Bowel sounds present. Bile draine in place c cloudy light brown bile MUSCULOSKELETAL: Extremities without clubbing, cyanosis, or edema. Well perfused NEUROLOGICAL: Awake and alert. Motor and sensory grossly within normal limits. Follows commands. Normal speech. Moves all extremities. Assessment & Plan Remarks Recurrent biliary sepsis Sepsis, Kleb pneumo, biliary origin - on admission Cholangitis sp biliary draine placement - ? cholecystits - dw GI: cholecystectomy at tertiary center was recommended on last admsission PSC underlysing dz New septic episode with biliary sepsis: Citrobacter bacteremia - source is biliary; P sensitivities cont zoyn, fu sensitivities - would avoid CFTX in this pt even if sensitive isolate dc micafungin Christiane Arevalo Dr, MD Aug 03, 2016 19:33
[2016-08-04] MEDS: INSULIN NovoLIN REGULAR SUPPLEMENTAL SCALE SQ SCH ×4 (02:25→21:49)
[2016-08-04] MEDS: HYDROmorphone HCL PF 1 MG/ML VIAL IV PRN ×7 (02:28→21:40)
[2016-08-04] MEDS: PIPERACIL-TAZO 3.375 GM PREMIX 50 ML IV SCH ×4 (02:28→19:57)
[2016-08-04 04:00] VITALS: BP 108/74; PULSE 88; RESP 20; TEMP 98.3; O2SAT 98
[2016-08-04 06:23] LABS: HEMATOCRIT 27.9 % (35.0-46.0); MEAN CELL VOLUME 85.5 FL (80.0-100.0); MEAN CORPUSCULAR HEMOGLOBIN 27.9 PG (27.0-34.0); MEAN CORPUSCULAR HGB CONC 32.6 % (32.0-36.0); PLATELET COUNT 370 TH/MM3 (150-450); RED BLOOD COUNT 3.26 MIL/MM3 (4.00-5.30); RED CELL DISTRIBUTION WIDTH 20.5 % (11.6-17.2); REVIEW FLAG FINAL; WHITE BLOOD COUNT 7.5 TH/MM3 (4.0-11.0)
[2016-08-04 06:31] LABS: BICARBONATE 25.6 MEQ/L (21.0-32.0)
[2016-08-04 06:35] LABS: INDIRECT BILIRUBIN 1.1 MG/DL (0.0-0.8); TOTAL BILIRUBIN ADULT 4.4 MG/DL (0.2-1.0)
[2016-08-04 08:00] VITALS: BP 111/73; PULSE 81; RESP 16; TEMP 98.1; O2SAT 96
[2016-08-04] MEDS: PANTOPRAZOLE SODIUM 40 MG VIAL IV SCH (08:54)
[2016-08-04] MEDS: SODIUM CHLOR 0.9% 1000 ML INJ 1,000 ML IV SCH ×2 (08:54→16:21)
[2016-08-04] MEDS: URSODIOL 300 MG CAP PO SCH ×2 (08:54→19:57)
[2016-08-04] MEDS: POLYETHYLENE GLYCOL 17 GM PKG PO SCH (08:55)
--- NOTE | 2016-08-04 10:02 | HHI.PR ---
Subjective Remarks Patient reports that she is feeling slightly better today but her abdominal "soreness" persist. She does not want to transition to oral pain medication for now. Objective Vitals Vital Signs Date Time Temp Pulse Resp B/P Pulse Ox O2 Delivery O2 Flow Rate FiO2 08/04/16 04:00 98.3 88 20 108/74 98 08/03/16 20:00 96 08/03/16 20:00 94 22 122/76 98 08/03/16 16:00 98.1 90 18 106/68 100 08/03/16 12:00 98.3 89 16 101/67 96 I/O 08/03/16 08/03/16 08/03/16 08/04/16 08/04/16 08/04/16 07:00 15:00 23:00 07:00 15:00 23:00 Intake Total 1526 ml 480 ml 2655 ml Output Total 1000 ml 30 ml 30 ml Balance -1000 ml 1496 ml 480 ml 2625 ml Intake Oral 480 ml 480 ml 820 ml IV Total 1046 ml 1835 ml Output Urine Total 1000 ml Drainage Total 30 ml 30 ml # Voids 3 2 7 Result Diagram: 08/04/16 0550 08/04/16 0550 Objective Remarks GENERAL: Chronically ill-appearing female. Appear comfortable. CARDIOVASCULAR: Normal rate and regular rhythm without murmurs, gallops, or rubs. RESPIRATORY: Good respiratory efforts. Breath sounds equal and clear to auscultation bilaterally. GASTROINTESTINAL: Abdomen soft, Tender to palpation. Normal active bowel sounds. There is a drain in place mid abdomen. MUSCULOSKELETAL: Extremities without cyanosis, or edema. NEURO: Alert & Oriented x4 to person, place, time, situation. Moves all ext x4 PSYCH: Appropriate mood and affect. Procedures Biliary drain placement. A/P Assessment and Plan 46-year-old female: Septic shock, Klebsiella pneumonia bacteremia, cholangitis: Improving. - Antibiotics per infectious disease. - Repeat blood cultures from 08/01/16 growing Citrobacter. Repeat blood cultures today - Follow closely. Acute cholangitis/Liver cirrhosis: cholangitis. ERCP suggestive of primary sclerosing cholangitis. Per Pathologist liver biopsy not consistent with PSC, more suggestive of Cirrhosis. - Appreciate GI following. Liver enzymes improving. Status post ERCP 07/26/16> left hepatic tree stricture, continue antibiotic, S/P liver biopsy. - Patient was being considered for transfer to [facility]. However [facility] declined transfer as they do not believe they would do anything different. - S/P biliary drain placement on 07/31/16 by IR per GI recs - Regular diet as tolerated. Biliary drain is capped per GI. Coagulopathy: Likely secondary to liver disease. - Monitor CBC and coags. s/p transfusion 3 u FFP and Vitamin K 10mg IV x1 on 07/20 for INR 11 now INR 1.0 On Vitamin K 10mg daily per GI Hypokalemia: Replace and monitor. GI prophylaxis: PPI. Stool softener PRN constipation. DVT PPx: SCDs. Michelle Barney MD Aug 04, 2016 10:02
[2016-08-04] MEDS ORDERED: POTASSIUM CHLORIDE 10 MEQ CONTROLLED RELEASE TAB PO ONE (10:45)
[2016-08-04] MEDS ORDERED: MAGNESIUM SULFATE 1 GM PREMIX 100 ML IV ONE (11:00)
--- NOTE | 2016-08-04 11:07 | HHI.GIFU ---
Subjective Remarks Pt resting in bed in no distress. Biliary drain was capped yesterday- no worsening of symptoms after this was capped. Tolerating diet. Pain controlled although she reports that she continues to have diffuse abdominal pain. (Aliyah Mosher) Objective Vitals I&O Vital Signs Date Time Temp Pulse Resp B/P Pulse Ox O2 Delivery O2 Flow Rate FiO2 08/04/16 04:00 98.3 88 20 108/74 98 08/03/16 20:00 96 08/03/16 20:00 94 22 122/76 98 08/03/16 16:00 98.1 90 18 106/68 100 08/03/16 12:00 98.3 89 16 101/67 96 I/O 08/03/16 08/03/16 08/03/16 08/04/16 08/04/16 08/04/16 07:00 15:00 23:00 07:00 15:00 23:00 Intake Total 1526 ml 480 ml 2655 ml Output Total 1000 ml 30 ml 30 ml Balance -1000 ml 1496 ml 480 ml 2625 ml Intake Oral 480 ml 480 ml 820 ml IV Total 1046 ml 1835 ml Output Urine Total 1000 ml Drainage Total 30 ml 30 ml # Voids 3 2 7 Laboratory Laboratory Tests Test 08/04/16 05:50 White Blood Count 7.5 Red Blood Count 3.26 Hemoglobin 9.1 Hematocrit 27.9 Mean Corpuscular Volume 85.5 Mean Corpuscular Hemoglobin 27.9 Mean Corpuscular Hemoglobin 32.6 Concent Red Cell Distribution Width 20.5 Platelet Count 370 Mean Platelet Volume 10.5 Sodium Level 138 Potassium Level 3.0 Chloride Level 103 Carbon Dioxide Level 25.6 Anion Gap 9 Blood Urea Nitrogen 4 Creatinine 0.31 Estimat Glomerular Filtration 231 Rate Random Glucose 155 Calcium Level 7.7 Total Bilirubin 4.4 Direct Bilirubin 3.3 Indirect Bilirubin 1.1 Aspartate Amino Transf 88 (AST/SGOT) Alanine Aminotransferase 71 (ALT/SGPT) Alkaline Phosphatase 983 Total Protein 5.4 Albumin 1.8 Date/Time Procedure Status Source Growth 08/01/16 16:15 Aerobic Blood Culture - Final Complete Blood Peripheral Citrobacter Species 08/01/16 16:15 Anaerobic Blood Culture - Final Complete Blood Peripheral QNS - SEE AEROBE REPORT Imaging Last Impressions Abdomen/Pelvis CT 08/02/16 0000 Signed Impressions: Service Date/Time: July 10:43 - CONCLUSION: 1. Cirrhotic liver. 2. Biliary drain in place from the left lobe. There is pneumobilia seen. 3. Non-obstructing 8 mm left renal stone. 4. Status post splenectomy. 5. Mild ascites in the pericolic regions and in the pelvis. 6. Dilatation of the pancreatic duct and the pancreatic body. The pancreatic head is unremarkable. 7. Mild left pleural effusion. There is areas of atelectasis or consolidation at the lung bases bilaterally. Mele Cuba MD Bile Duct Drainage 07/31/16 0000 Signed Impressions: Service Date/Time: Sunday, July 31, 2016 13:05 - CONCLUSION: Uncomplicated biliary stent placement as above. 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 Adeel Esteban MD Cholangiopancreatography MRI 07/30/16 0000 Signed Impressions: Service Date/Time: Saturday, July 30, 2016 13:21 - CONCLUSION: 1. Dilatation of the left intrahepatic biliary ducts with multiple filling defects likely related to air. There does appear to be narrowing of the central biliary ducts. The common bile duct is not clearly recognizable. The configuration at the left ducts appears similar to the prior examination. 2. Very prominent hypertrophy of the left lobe and atrophy of the right lobe likely secondary to cirrhosis. The liver does appear enlarged. Mele Cuba MD Liver Biopsy CT 07/27/16 0000 Signed Impressions: Service Date/Time: Wednesday, July 27, 2016 15:47 - CONCLUSION: Uncomplicated CT guided biopsy of the liver. Mele Yoo MD GI Procedure 07/26/16 0000 Signed Impressions: Service Date/Time: July 10:22 - CONCLUSION: ERCP as above. Feng Rod MD Chest X-Ray 07/19/16 1141 Signed Impressions: Service Date/Time: July 12:25 - CONCLUSION: 1. No acute cardiopulmonary findings. Farzad Morales MD Head CT 07/19/16 0000 Signed Impressions: Service Date/Time: July 16:01 - CONCLUSION: 1. No evidence of acute intracranial pathology. No masses are identified. Nestor Isabel MD Physical Exam HEENT: Normocephalic; atraumatic, + jaundice CHEST: CTA CARDIAC: RRR ABDOMEN: Soft, mildly distended, diffuse tenderness-improved; no hepatosplenomegaly; bowel sounds x 4 quadrants. Biliary drain capped EXTREMITIES: No clubbing, cyanosis, or edema. SKIN: Normal; no rash; + jaundice. PHILATELIC CONSULTANT: No focal deficits; A&O x3. (MosherAliyah Kramer LEADER TIER) Assessment and Plan Plan ASSESSMENT: - Sclerosing Cholangitis/Biliary Strictures with sepsis/fever, N/V/Abdominal pain. She is currently following with [facility]. Abdomen/Pelvis CT (07/19/16)----> Continued cirrhotic appearance of the liver. Some areas of scarring or volume loss throughout the right lobe similar to the previous study. No definite solid mass is seen. Status post splenectomy. No significant retroperitoneal adenopathy. MRCP (07/23/16)----> 1. Abnormally dilated left intrahepatic bile ducts with caliber change near the ankit hepatis at the confluence. No mass is appreciated in this area on this examination or the recent CT of the abdomen. Therefore, etiology is nonspecific. Stricture or small mass are the differential diagnostic considerations. These ducts have a similar appearance on the August 2014 examination. Suggest correlation with the clinical history. 2. Normal right intrahepatic bile ducts and common bile duct. Gallbladder is decompressed but demonstrates severe diffuse wall edema which may be related to the portal hypertension and chronic liver disease. 3. Abnormally dilated main pancreatic duct in the tail with associated dilated side branches. There is abrupt caliber change in the mid body. The appearance is similar to multiple prior studies dating back to 2014. I do not see a mass as the cause and since there has been no significant change this may be related to a stricture. Segmental IPMN is also a consideration but felt less likely. Suggest attention to this at followup imaging to confirm stability. 4. The liver demonstrates features diagnostic of cirrhosis. There is a moderate volume of free fluid within the abdomen and pelvis likely related to portal hypertension. There are also small bilateral pleural effusions. Bacteremia with Klebsiella, GNR. [facility] declined patient for transfer because they feel there is nothing they will do differently than we are doing here with regards to her care. S/P ERCP (07/26/16)-----> Ampulla C/W previous sphincterotomy, some sludge removed by balloon, free flow of bile, not able to see the left hepatic tree. No dye in that area, possible stricture, possible stricture in the left hepatic duct. 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 Pt had worsening pain, high fevers, hypotension, tachycardia on 08/01 and her abx were changed by ID to Zosyn and Vanco. Rpt Bcx from 08/01 with Citrobacter species. Rpt. Abdomen/Pelvis CT (08/02/16)-------> 1. Cirrhotic liver. 2. Biliary drain in place from the left lobe. There is pneumobilia seen. 3. Non-obstructing 8 mm left renal stone. 4. Status post splenectomy. 5. Mild ascites in the pericolic regions and in the pelvis. 6. Dilatation of the pancreatic duct and the pancreatic body. The pancreatic head is unremarkable. 7. Mild left pleural effusion. There is areas of atelectasis or consolidation at the lung bases bilaterally. She has improved since abx changed. Biliary drain capped on 08/04/16. Stable. Nausea without vomiting, pain controlled, tolerating diet. LFTs improved today with T. Bili 4.4, AST 88, ALT 71, Alk phosph 983. Afebrile. Zosyn, Ursodiol. - Sepsis, Bacteremia, Fevers, Leukocytosis. Original BCx with Klebsiella, GNR. Rpt. with GNR, Citrobacter species. Afebrile. Vanco/Micafungin stopped. Zosyn - Liver cirrhosis. S/P liver biopsy 07/27/16, results pending. S/P liver biopsy ( 2013) at that time of both her normal liver parenchyma and her liver mass. The normal liver parenchyma revealed chronic hepatitis with bridging fibrosis and cirrhosis grade 2/4, stage 3-4/4 exhibiting bile duct tubular damage and ductopenia, chronic hepaititis with bridging fibrosis. Of note, specimen #1 suggested a differential diagnosis of primary biliary cirrhosis vs. drug induced disease. The histopathology did not suggest that of primary sclerosing cholangitis. The liver mass suggested chronic hepatitis with bridging fibrosis 2/4, stage III/4. Of note, she was evaluated by [facility], but states she was told that her MELD score was too low to be considered for liver transplant. AFP 9.5, Ceruloplasmin 46. MARCELLO negative, ASMA negative, AMA <20.0, Ferritin 159, Iron sat 17.9%. Rpt. Liver biopsy (07/30/16) with severe chronic hepatitis with bridging fibrosis and cirrhosis (grade 2/4; stage 3-4/4) with associated bile stasis, fatty change and histopathologic features most suggestive of drug induced liver disease (including alcohol)- There is no evidence of primary biliary cirrhosis or primary sclerosing cholangitis in this biopsy material. Cytoplasmic inclusions suggestive of Alpha-antitrypsin are prsent as may be observed in cirrhotic livers however it is suggested that serologic studies be performed. The pathologic features present in this biopsy are different from that observed in the liver biopsy of 01/19/14. Of note, alpha one antitrypsin 291 - Hx of abnormal imaging of the gallbladder. HIDA (04/27/16)----> Nonvisualization of the gallbladder. ADDENDUM: Delayed imaging of the abdomen documents an ovoid area of activity in the right upper quadrant in the expected location of the gallbladder based on prior cross-sectional imaging studies. Delayed visualization the gallbladder should exclude complete cystic duct obstruction. However, based on prior imaging studies, the gallbladder demonstrated severe diffuse wall edema. S/P GS evaluation during last admission who did not feel this was contributing to her symptoms and did not recommend cholecystectomy. AFP 9.5, Hepatitis panel negative, alpha 1 antitrypsin 291, ceruloplasmin negative marcello negative, asma negative, ama < 20.0 Rpt. Liver biopsy (07/30/16) with severe chronic hepatitis with bridging fibrosis and cirrhosis (grade 2/4; stage 3-4/4) with associated bile stasis, fatty change and histopathologic features most suggestive of drug induced liver disease ( including alcohol)- There is no evidence of primary biliary cirrhosis or primary sclerosing cholangitis in this biopsy material. Cyotplasmic inclusions suggestive of Alpha-antitrypsin are prsent as may be observed in cirrhotic livers however it is suggested that serologic studies be performed. The pathologic features present in this biopsy are different from that observed in the liver biopsy of 01/19/14. LFT improved. However, previous ERCPs consistent with sclerosing cholangitis. - Hx of non-Hodgkin's lymphoma and completed chemotherapy in 2005, but has had an ongoing problem with biliary strictures and sclerosing cholangitis. Plan: - TOO - Cont. Abx per ID recommendations - Cont. Ursodiol - Cont. PPI - Cont. Miralax - Monitor labs - Pain management - Biliary drain capped 08/03 - Supportive care - [facility] declined patient because they do not feel that they would do anything different with regards to her care - Further recommendations to follow based on results of above. - Pt seen and examined by Dr. Newberry and myself and this note is written on his behalf (Aliyah Mosher) Physician Comments Patient seen and examined Agree with above Continue with current supportive care Monitor labs (Markus Newberry MD) Aliyah Mosher Aug 04, 2016 11:07 Markus Newberry MD Aug 04, 2016 17:05
[2016-08-04 12:00] VITALS: BP 108/72; PULSE 79; RESP 16; TEMP 98.4; O2SAT 96
[2016-08-04] MEDS: POTASSIUM CHLOR 20 MEQ PREMIX 100 ML IV SCH ×2 (12:43→12:44)
[2016-08-04 16:00] VITALS: BP 102/70; PULSE 95; RESP 16; TEMP 98.5; O2SAT 98
[2016-08-04 20:00] VITALS: PULSE 96
[2016-08-04 20:09] VITALS: BP 118/87; PULSE 93; RESP 22; TEMP 98.6; O2SAT 100
[2016-08-05 00:12] VITALS: BP 116/86; PULSE 95; RESP 20; TEMP 98.2; O2SAT 97
[2016-08-05] MEDS: SODIUM CHLOR 0.9% 1000 ML INJ 1,000 ML IV SCH ×4 (00:30→20:55)
[2016-08-05] MEDS: HYDROmorphone HCL PF 1 MG/ML VIAL IV PRN ×8 (00:31→23:47)
[2016-08-05] MEDS: PIPERACIL-TAZO 3.375 GM PREMIX 50 ML IV SCH ×4 (03:33→20:54)
[2016-08-05] MEDS: CHLORHEXIDINE GLUCONATE 2 % 1 PACK (2 CLOTHS) TOP SCH ×2 (03:34→20:55)
[2016-08-05] MEDS: INSULIN NovoLIN REGULAR SUPPLEMENTAL SCALE SQ SCH ×4 (03:34→21:00)
[2016-08-05 04:09] VITALS: BP 125/88; PULSE 94; RESP 20; TEMP 98.1; O2SAT 98
[2016-08-05 04:56] LABS: MEAN CELL VOLUME 85.5 FL (80.0-100.0); MEAN CORPUSCULAR HEMOGLOBIN 27.6 PG (27.0-34.0); MEAN CORPUSCULAR HGB CONC 32.2 % (32.0-36.0); PLATELET COUNT 353 TH/MM3 (150-450); RED BLOOD COUNT 3.28 MIL/MM3 (4.00-5.30); RED CELL DISTRIBUTION WIDTH 20.1 % (11.6-17.2); WHITE BLOOD COUNT 6.5 TH/MM3 (4.0-11.0)
[2016-08-05 05:02] LABS: REVIEW FLAG FINAL
[2016-08-05 08:00] VITALS: BP 111/77; PULSE 87; RESP 16; TEMP 98.5; O2SAT 97
--- NOTE | 2016-08-05 08:52 | HHI.PR ---
Subjective Remarks Patient reports worsening abdominal pain today. Issues with lab collection this morning. It is being redrawn. Objective Vitals Vital Signs Date Time Temp Pulse Resp B/P Pulse Ox O2 Delivery O2 Flow Rate FiO2 08/05/16 04:09 98.1 94 20 125/88 98 08/05/16 00:12 98.2 95 20 116/86 97 08/04/16 20:09 98.6 93 22 118/87 100 08/04/16 20:00 96 08/04/16 16:05 16 08/04/16 16:00 98.5 95 16 102/70 98 08/04/16 12:00 98.4 79 16 108/72 96 I/O 08/04/16 08/04/16 08/04/16 08/05/16 08/05/16 08/05/16 07:00 15:00 23:00 07:00 15:00 23:00 Intake Total 2655 ml 480 ml 1516 ml 420 ml Output Total 30 ml Balance 2625 ml 480 ml 1516 ml 420 ml Intake Oral 820 ml 480 ml 520 ml 420 ml IV Total 1835 ml 996 ml Drainage Total 30 ml # Voids 7 4 5 5 # Bowel Movements 1 1 0 Result Diagram: 08/05/16 0440 08/04/16 0550 Objective Remarks GENERAL: Chronically ill-appearing female. Appear comfortable. CARDIOVASCULAR: Normal rate and regular rhythm without murmurs, gallops, or rubs. RESPIRATORY: Good respiratory efforts. Breath sounds equal and clear to auscultation bilaterally. GASTROINTESTINAL: Abdomen soft, very tender to palpation. Normal active bowel sounds. There is a drain in place mid abdomen. MUSCULOSKELETAL: Extremities without cyanosis, or edema. NEURO: Alert & Oriented x4 to person, place, time, situation. Moves all ext x4 PSYCH: Appropriate mood and affect. Procedures Biliary drain placement. A/P Assessment and Plan 46-year-old female: Septic shock, Klebsiella pneumonia bacteremia, cholangitis: Improving. - Antibiotics per infectious disease. - Repeat blood cultures from 08/01/16 growing Citrobacter. Repeat blood cultures today - Follow closely. Acute cholangitis/Liver cirrhosis: cholangitis. ERCP suggestive of primary sclerosing cholangitis. Per Pathologist liver biopsy not consistent with PSC, more suggestive of Cirrhosis. - Appreciate GI following. Liver enzymes stable today. Status post ERCP 07/26/16 > left hepatic tree stricture, continue antibiotic, S/P liver biopsy. - Patient was being considered for transfer to [facility]. However [facility] declined transfer as they do not believe they would do anything different. - S/P biliary drain placement on 07/31/16 by IR per GI recs. - Regular diet as tolerated. Biliary drain is capped per GI on 08/04. - Continue to follow for improvement in liver enzymes and pain. Coagulopathy: Likely secondary to liver disease. - Monitor CBC and coags. s/p transfusion 3 u FFP and Vitamin K 10mg IV x1 on 07/20 for INR 11 now INR 1.0 On Vitamin K 10mg daily per GI Hypokalemia: Replace and monitor. GI prophylaxis: PPI. Stool softener PRN constipation. DVT PPx: SCDs. Michelle Barney MD Aug 05, 2016 08:52
[2016-08-05] MEDS: POLYETHYLENE GLYCOL 17 GM PKG PO SCH (09:00)
[2016-08-05] MEDS: PANTOPRAZOLE SODIUM 40 MG VIAL IV SCH (09:55)
[2016-08-05] MEDS: URSODIOL 300 MG CAP PO SCH ×2 (09:56→20:54)
[2016-08-05 11:01] LABS: BICARBONATE 26.8 MEQ/L (21.0-32.0); INDIRECT BILIRUBIN 1.2 MG/DL (0.0-0.8); POTASSIUM 4.3 MEQ/L (3.5-5.1)
[2016-08-05 12:00] VITALS: BP 119/76; PULSE 81; RESP 16; TEMP 98.1; O2SAT 97
[2016-08-05 16:00] VITALS: BP 122/81; PULSE 85; RESP 16; TEMP 98.6; O2SAT 98
--- NOTE | 2016-08-05 17:16 | HHI.GIFU ---
Subjective Remarks Pt reports that her abdominal pain is unchanged. She is tolerating her diet Pt had a normal BM today Denies any nausea/vomiting Afebrile. (Isaura Espino) Objective Vitals I&O Vital Signs Date Time Temp Pulse Resp B/P Pulse Ox O2 Delivery O2 Flow Rate FiO2 08/05/16 12:00 98.1 81 16 119/76 97 08/05/16 08:00 98.5 87 16 111/77 97 08/05/16 04:09 98.1 94 20 125/88 98 08/05/16 00:12 98.2 95 20 116/86 97 08/04/16 20:09 98.6 93 22 118/87 100 08/04/16 20:00 96 I/O 08/04/16 08/04/16 08/04/16 08/05/16 08/05/16 08/05/16 07:00 15:00 23:00 07:00 15:00 23:00 Intake Total 2655 ml 480 ml 1516 ml 420 ml 395 ml Output Total 30 ml Balance 2625 ml 480 ml 1516 ml 420 ml 395 ml Intake Oral 820 ml 480 ml 520 ml 420 ml IV Total 1835 ml 996 ml 395 ml Drainage Total 30 ml # Voids 7 4 5 5 # Bowel Movements 1 1 0 Laboratory Laboratory Tests Test 08/05/16 08/05/16 04:40 09:29 White Blood Count 6.5 Red Blood Count 3.28 Hemoglobin 9.0 Hematocrit 28.0 Mean Corpuscular Volume 85.5 Mean Corpuscular Hemoglobin 27.6 Mean Corpuscular Hemoglobin 32.2 Concent Red Cell Distribution Width 20.1 Platelet Count 353 Mean Platelet Volume 10.2 Sodium Level 137 Potassium Level 4.3 Chloride Level 102 Carbon Dioxide Level 26.8 Anion Gap 8 Blood Urea Nitrogen 3 Creatinine 0.33 Estimat Glomerular Filtration 215 Rate Random Glucose 182 Calcium Level 8.5 Total Bilirubin 4.0 Direct Bilirubin 2.8 Indirect Bilirubin 1.2 Aspartate Amino Transf 101 (AST/SGOT) Alanine Aminotransferase 73 (ALT/SGPT) Alkaline Phosphatase 999 Total Protein 5.8 Albumin 1.9 Date/Time Procedure Status Source Growth 08/04/16 17:19 Aerobic Blood Culture - Preliminary Resulted Blood Peripheral NO GROWTH IN 1 DAY 08/04/16 17:19 Anaerobic Blood Culture - Preliminary Resulted Blood Peripheral NO GROWTH IN 1 DAY 08/01/16 16:15 Aerobic Blood Culture - Final Complete Blood Peripheral Citrobacter Species 08/01/16 16:15 Anaerobic Blood Culture - Final Complete Blood Peripheral QNS - SEE AEROBE REPORT Imaging Last Impressions Abdomen/Pelvis CT 08/02/16 0000 Signed Impressions: Service Date/Time: July 10:43 - CONCLUSION: 1. Cirrhotic liver. 2. Biliary drain in place from the left lobe. There is pneumobilia seen. 3. Non-obstructing 8 mm left renal stone. 4. Status post splenectomy. 5. Mild ascites in the pericolic regions and in the pelvis. 6. Dilatation of the pancreatic duct and the pancreatic body. The pancreatic head is unremarkable. 7. Mild left pleural effusion. There is areas of atelectasis or consolidation at the lung bases bilaterally. Mele Cuba MD Bile Duct Drainage 07/31/16 0000 Signed Impressions: Service Date/Time: Sunday, July 31, 2016 13:05 - CONCLUSION: Uncomplicated biliary stent placement as above. 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 Adeel Esteban MD Cholangiopancreatography MRI 07/30/16 0000 Signed Impressions: Service Date/Time: Saturday, July 30, 2016 13:21 - CONCLUSION: 1. Dilatation of the left intrahepatic biliary ducts with multiple filling defects likely related to air. There does appear to be narrowing of the central biliary ducts. The common bile duct is not clearly recognizable. The configuration at the left ducts appears similar to the prior examination. 2. Very prominent hypertrophy of the left lobe and atrophy of the right lobe likely secondary to cirrhosis. The liver does appear enlarged. Mele Cuba MD Liver Biopsy CT 07/27/16 0000 Signed Impressions: Service Date/Time: Wednesday, July 27, 2016 15:47 - CONCLUSION: Uncomplicated CT guided biopsy of the liver. Mele Yoo MD GI Procedure 07/26/16 0000 Signed Impressions: Service Date/Time: July 10:22 - CONCLUSION: ERCP as above. Feng Rod MD Chest X-Ray 07/19/16 1141 Signed Impressions: Service Date/Time: July 12:25 - CONCLUSION: 1. No acute cardiopulmonary findings. Farzad Morales MD Head CT 07/19/16 0000 Signed Impressions: Service Date/Time: July 16:01 - CONCLUSION: 1. No evidence of acute intracranial pathology. No masses are identified. Nestor Isabel MD Physical Exam HEENT: Normocephalic; atraumatic, + jaundice CHEST: CTA CARDIAC: RRR ABDOMEN: Soft, mildly distended, diffuse tenderness-improved; no hepatosplenomegaly; bowel sounds x 4 quadrants. Biliary drain capped EXTREMITIES: No clubbing, cyanosis, or edema. SKIN: Normal; no rash; + jaundice. R[employer]ER: No focal deficits; A&O x3. (Isaura Espino) Assessment and Plan Plan ASSESSMENT: - Sclerosing Cholangitis/Biliary Strictures with sepsis/fever, N/V/Abdominal pain. She is currently following with [facility]. Abdomen/Pelvis CT (07/19/16)----> Continued cirrhotic appearance of the liver. Some areas of scarring or volume loss throughout the right lobe similar to the previous study. No definite solid mass is seen. Status post splenectomy. No significant retroperitoneal adenopathy. MRCP (07/23/16)----> 1. Abnormally dilated left intrahepatic bile ducts with caliber change near the ankit hepatis at the confluence. No mass is appreciated in this area on this examination or the recent CT of the abdomen. Therefore, etiology is nonspecific. Stricture or small mass are the differential diagnostic considerations. These ducts have a similar appearance on the August 2014 examination. Suggest correlation with the clinical history. 2. Normal right intrahepatic bile ducts and common bile duct. Gallbladder is decompressed but demonstrates severe diffuse wall edema which may be related to the portal hypertension and chronic liver disease. 3. Abnormally dilated main pancreatic duct in the tail with associated dilated side branches. There is abrupt caliber change in the mid body. The appearance is similar to multiple prior studies dating back to 2015. I do not see a mass as the cause and since there has been no significant change this may be related to a stricture. Segmental IPMN is also a consideration but felt less likely. Suggest attention to this at followup imaging to confirm stability. 4. The liver demonstrates features diagnostic of cirrhosis. There is a moderate volume of free fluid within the abdomen and pelvis likely related to portal hypertension. There are also small bilateral pleural effusions. Bacteremia with Klebsiella, GNR. [facility] declined patient for transfer because they feel there is nothing they will do differently than we are doing here with regards to her care. S/P ERCP (07/26/16)-----> Ampulla C/W previous sphincterotomy, some sludge removed by balloon, free flow of bile, not able to see the left hepatic tree. No dye in that area, possible stricture, possible stricture in the left hepatic duct. 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 Pt had worsening pain, high fevers, hypotension, tachycardia on 08/01 and her abx were changed by ID to Zosyn and Vanco. Rpt Bcx from 08/01 with Citrobacter species. Rpt. Abdomen/Pelvis CT (08/02/16)-------> 1. Cirrhotic liver. 2. Biliary drain in place from the left lobe. There is pneumobilia seen. 3. Non-obstructing 8 mm left renal stone. 4. Status post splenectomy. 5. Mild ascites in the pericolic regions and in the pelvis. 6. Dilatation of the pancreatic duct and the pancreatic body. The pancreatic head is unremarkable. 7. Mild left pleural effusion. There is areas of atelectasis or consolidation at the lung bases bilaterally. She has improved since abx changed. Biliary drain capped on 08/04/16. Stable. Nausea without vomiting, pain controlled, tolerating diet. LFTs today with T. Bili 4.0, DBili 2.8, AST 101, ALT 73, Alk phosph 999. Afebrile. Zosyn, Ursodiol. - Sepsis, Bacteremia, Fevers, Leukocytosis. Original BCx with Klebsiella, GNR. Rpt. with GNR, Citrobacter species. Afebrile. Vanco/Micafungin stopped. Zosyn - Liver cirrhosis. S/P liver biopsy 07/27/16, results pending. S/P liver biopsy ( 2013) at that time of both her normal liver parenchyma and her liver mass. The normal liver parenchyma revealed chronic hepatitis with bridging fibrosis and cirrhosis grade 2/4, stage 3-4/4 exhibiting bile duct tubular damage and ductopenia, chronic hepaititis with bridging fibrosis. Of note, specimen #1 suggested a differential diagnosis of primary biliary cirrhosis vs. drug induced disease. The histopathology did not suggest that of primary sclerosing cholangitis. The liver mass suggested chronic hepatitis with bridging fibrosis 2/4, stage III/4. Of note, she was evaluated by [facility], but states she was told that her MELD score was too low to be considered for liver transplant. AFP 9.5, Ceruloplasmin 46. MARCELLO negative, ASMA negative, AMA <20.0, Ferritin 159, Iron sat 17.9%. Rpt. Liver biopsy (07/30/16) with severe chronic hepatitis with bridging fibrosis and cirrhosis (grade 2/4; stage 3-4/4) with associated bile stasis, fatty change and histopathologic features most suggestive of drug induced liver disease (including alcohol)- There is no evidence of primary biliary cirrhosis or primary sclerosing cholangitis in this biopsy material. Cytoplasmic inclusions suggestive of Alpha-antitrypsin are prsent as may be observed in cirrhotic livers however it is suggested that serologic studies be performed. The pathologic features present in this biopsy are different from that observed in the liver biopsy of 01/19/14. Of note, alpha one antitrypsin 291 - Hx of abnormal imaging of the gallbladder. HIDA (04/27/16)----> Nonvisualization of the gallbladder. ADDENDUM: Delayed imaging of the abdomen documents an ovoid area of activity in the right upper quadrant in the expected location of the gallbladder based on prior cross-sectional imaging studies. Delayed visualization the gallbladder should exclude complete cystic duct obstruction. However, based on prior imaging studies, the gallbladder demonstrated severe diffuse wall edema. S/P GS evaluation during last admission who did not feel this was contributing to her symptoms and did not recommend cholecystectomy. AFP 9.5, Hepatitis panel negative, alpha 1 antitrypsin 291, ceruloplasmin negative marcello negative, asma negative, ama < 20.0 Rpt. Liver biopsy (07/30/16) with severe chronic hepatitis with bridging fibrosis and cirrhosis (grade 2/4; stage 3-4/4) with associated bile stasis, fatty change and histopathologic features most suggestive of drug induced liver disease ( including alcohol)- There is no evidence of primary biliary cirrhosis or primary sclerosing cholangitis in this biopsy material. Cytoplasmic inclusions suggestive of Alpha-antitrypsin are prsent as may be observed in cirrhotic livers however it is suggested that serologic studies be performed. The pathologic features present in this biopsy are different from that observed in the liver biopsy of 01/19/14. LFT improved. However, previous ERCPs consistent with sclerosing cholangitis. - Hx of non-Hodgkin's lymphoma and completed chemotherapy in 2005, but has had an ongoing problem with biliary strictures and sclerosing cholangitis. Plan: - TOO - Cont. Abx per ID recommendations - Cont. Ursodiol - Cont. PPI - Cont. Miralax - Monitor labs - Pain management - Biliary drain capped 08/04 - Supportive care - [facility] declined patient because they do not feel that they would do anything different with regards to her care - Further recommendations as the case develops - Pt seen and examined by Dr. Newberry and myself and this note is written on his behalf (Isaura Espino) Physician Comments Patient seen and examined Agree with above Continue with current supportive care Monitor labs (Markus Newberry MD) Isaura Espino Aug 05, 2016 17:16 Markus Newberry MD Aug 05, 2016 18:38
[2016-08-05 20:00] VITALS: BP 122/77; PULSE 85; PULSE 86; RESP 20; TEMP 98.8; O2SAT 100
[2016-08-06] VITALS: BP 116/78; PULSE 82; RESP 20; TEMP 97.6; O2SAT 97
[2016-08-06] MEDS: PIPERACIL-TAZO 3.375 GM PREMIX 50 ML IV SCH ×4 (03:02→20:22)
[2016-08-06] MEDS: HYDROmorphone HCL PF 1 MG/ML VIAL IV PRN ×7 (03:02→21:16)
[2016-08-06] MEDS: INSULIN NovoLIN REGULAR SUPPLEMENTAL SCALE SQ SCH ×4 (03:05→20:25)
[2016-08-06 04:00] VITALS: BP 116/78; PULSE 82; RESP 20; TEMP 97.6; O2SAT 97
[2016-08-06 05:20] LABS: HEMATOCRIT 28.4 % (35.0-46.0); MEAN CELL VOLUME 86.5 FL (80.0-100.0); MEAN CORPUSCULAR HEMOGLOBIN 27.9 PG (27.0-34.0); MEAN CORPUSCULAR HGB CONC 32.2 % (32.0-36.0); PLATELET COUNT 378 TH/MM3 (150-450); RED BLOOD COUNT 3.29 MIL/MM3 (4.00-5.30); RED CELL DISTRIBUTION WIDTH 20.9 % (11.6-17.2); WHITE BLOOD COUNT 7.7 TH/MM3 (4.0-11.0)
[2016-08-06 05:39] LABS: BICARBONATE 25.2 MEQ/L (21.0-32.0); POTASSIUM 3.6 MEQ/L (3.5-5.1)
[2016-08-06 05:42] LABS: INDIRECT BILIRUBIN 0.6 MG/DL (0.0-0.8)
[2016-08-06 05:43] LABS: REVIEW FLAG FINAL
[2016-08-06 08:00] VITALS: BP 109/68; PULSE 77; RESP 16; TEMP 98; O2SAT 96
[2016-08-06] MEDS: SODIUM CHLOR 0.9% 1000 ML INJ 1,000 ML IV SCH ×2 (08:17→20:25)
[2016-08-06] MEDS: PANTOPRAZOLE SODIUM 40 MG VIAL IV SCH (08:17)
[2016-08-06] MEDS: POLYETHYLENE GLYCOL 17 GM PKG PO SCH (08:17)
[2016-08-06] MEDS: URSODIOL 300 MG CAP PO SCH ×2 (08:17→20:21)
--- NOTE | 2016-08-06 10:17 | HHI.PR ---
Subjective Remarks tolerated po well, no nausea or vomiting + stools, soft voiding spontaneously complains of abdominal discomfort- epigastric and right upper quadrant barely touch belly and patient jumped already Objective Vitals Vital Signs Date Time Temp Pulse Resp B/P Pulse Ox O2 Delivery O2 Flow Rate FiO2 08/06/16 08:00 98.0 77 16 109/68 96 08/06/16 04:00 97.6 82 20 116/78 97 08/06/16 00:00 97.6 82 20 116/78 97 08/05/16 20:00 98.8 86 20 122/77 100 08/05/16 20:00 85 08/05/16 16:00 98.6 85 16 122/81 98 08/05/16 12:00 98.1 81 16 119/76 97 I/O 08/05/16 08/05/16 08/05/16 08/06/16 08/06/16 08/06/16 07:00 15:00 23:00 07:00 15:00 23:00 Intake Total 420 ml 995 ml 1375 ml 1410 ml Output Total 600 ml 550 ml Balance 420 ml 995 ml 775 ml 860 ml Intake Oral 420 ml 600 ml 440 ml 480 ml IV Total 395 ml 935 ml 930 ml Output Urine Total 600 ml 550 ml # Voids 5 4 # Bowel Movements 0 1 0 0 Result Diagram: 08/06/16 0441 08/06/16 0441 Imaging Last Impressions Abdomen/Pelvis CT 08/02/16 0000 Signed Impressions: Service Date/Time: July 10:43 - CONCLUSION: 1. Cirrhotic liver. 2. Biliary drain in place from the left lobe. There is pneumobilia seen. 3. Non-obstructing 8 mm left renal stone. 4. Status post splenectomy. 5. Mild ascites in the pericolic regions and in the pelvis. 6. Dilatation of the pancreatic duct and the pancreatic body. The pancreatic head is unremarkable. 7. Mild left pleural effusion. There is areas of atelectasis or consolidation at the lung bases bilaterally. Mele Cuba MD Bile Duct Drainage 07/31/16 0000 Signed Impressions: Service Date/Time: Sunday, July 31, 2016 13:05 - CONCLUSION: Uncomplicated biliary stent placement as above. 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 Adeel F. Eulalia, MD Cholangiopancreatography MRI 07/30/16 0000 Signed Impressions: Service Date/Time: Saturday, July 30, 2016 13:21 - CONCLUSION: 1. Dilatation of the left intrahepatic biliary ducts with multiple filling defects likely related to air. There does appear to be narrowing of the central biliary ducts. The common bile duct is not clearly recognizable. The configuration at the left ducts appears similar to the prior examination. 2. Very prominent hypertrophy of the left lobe and atrophy of the right lobe likely secondary to cirrhosis. The liver does appear enlarged. Mele Cuba MD Liver Biopsy CT 07/27/16 0000 Signed Impressions: Service Date/Time: Wednesday, July 27, 2016 15:47 - CONCLUSION: Uncomplicated CT guided biopsy of the liver. Mele Yoo MD GI Procedure 07/26/16 0000 Signed Impressions: Service Date/Time: July 10:22 - CONCLUSION: ERCP as above. Feng Rod MD Chest X-Ray 07/19/16 1141 Signed Impressions: Service Date/Time: July 12:25 - CONCLUSION: 1. No acute cardiopulmonary findings. Farzad Morales MD Head CT 07/19/16 0000 Signed Impressions: Service Date/Time: July 16:01 - CONCLUSION: 1. No evidence of acute intracranial pathology. No masses are identified. Nestor Isabel MD Objective Remarks awake and alert appears comfortable at rest, anxious when belly examined lungs clear regular rhythm abdomen - biliary stent in place, soft on light touch, barely touch abdomen- patient jumped, + bowel sounds extremities no edema Procedures Biliary drain placement. A/P Assessment and Plan 46-year-old female: Septic shock, Klebsiella pneumonia bacteremia, cholangitis: now recent culture growing citrobacter - Antibiotics per infectious disease. - on zosyn - Follow closely. Acute cholangitis/Liver cirrhosis: cholangitis. ERCP suggestive of primary sclerosing cholangitis. Per Pathologist liver biopsy not consistent with PSC, more suggestive of Cirrhosis. - Appreciate GI following. Liver enzymes stable today. Status post ERCP 07/26/16 > left hepatic tree stricture, continue antibiotic, S/P liver biopsy. - Patient was being considered for transfer to [facility]. However [facility] declined transfer as they do not believe they would do anything different. - S/P biliary drain placement on 07/31/16 by IR per GI recs. - Regular diet as tolerated. Biliary drain is capped per GI on 08/04. - Continue to follow for improvement in liver enzymes and pain. - prn pain meds Coagulopathy: Likely secondary to liver disease. - Monitor CBC and coags. s/p transfusion 3 u FFP and Vitamin K 10mg IV x1 on 07/20 for INR 11 now INR 1.0 On Vitamin K 10mg daily per GI Hypokalemia: Replace and monitor. DM, type 2 insulin requiring. FF blood sugar with sliding scale GI prophylaxis: PPI. Stool softener PRN constipation. DVT PPx: SCDs. Eleno Patel MD Aug 06, 2016 10:17
[2016-08-06 12:00] VITALS: BP 114/72; PULSE 86; RESP 12; TEMP 98; O2SAT 97
[2016-08-06 16:00] VITALS: BP 112/75; PULSE 85; RESP 14; TEMP 98.8; O2SAT 98
--- NOTE | 2016-08-06 18:20 | HHI.IDPN ---
Subjective Subjective Remarks sp Biliary Drainage placement 07/31 co abdominal pain and distention afebrile + nausea/vomiting Antibiotics zosyn Lines PIVs in BL forearms wo e/o infx Allergies: Coded Allergies: Gadolinium Derivatives (Verified Allergy, Severe, BREATHING PROBLEMS, N/V, CHILLS, 07/19/16) MRI PRECAUTION (Verified Allergy, Severe, NAUSEA; PER PATIENT IT IS A GADOLINIUM ALLERGY KMD 11/25/12, 07/19/16) Morphine (Verified Allergy, Severe, BREATHING PROBLEMS, 07/19/16) Toradol (Verified Allergy, Severe, Shortness of Breath, 07/19/16) *MDRO Multi-Drug Resistant Organism (Verified Adverse Reaction, Unknown, MRSA, 07/20/16) 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 Vital Signs Date Time Temp Pulse Resp B/P Pulse Ox O2 Delivery O2 Flow Rate FiO2 08/06/16 16:00 98.8 85 14 112/75 98 08/06/16 12:45 18 08/06/16 12:00 98.0 86 12 114/72 97 08/06/16 08:00 98.0 77 16 109/68 96 08/06/16 04:00 97.6 82 20 116/78 97 08/06/16 00:00 97.6 82 20 116/78 97 08/05/16 20:00 98.8 86 20 122/77 100 08/05/16 20:00 85 08/05/16 08/05/16 08/06/16 15:00 23:00 07:00 Intake Total 995 ml 1375 ml 1410 ml Output Total 600 ml 550 ml Balance 995 ml 775 ml 860 ml Intake Oral 600 ml 440 ml 480 ml IV Total 395 ml 935 ml 930 ml Output Urine Total 600 ml 550 ml # Voids 4 # Bowel Movements 1 0 0 . Laboratory Tests Test 08/05/16 08/06/16 04:40 04:41 White Blood Count 6.5 TH/MM3 7.7 TH/MM3 Red Blood Count 3.28 MIL/MM3 3.29 MIL/MM3 Hemoglobin 9.0 GM/DL 9.2 GM/DL Hematocrit 28.0 % 28.4 % Mean Corpuscular Volume 85.5 FL 86.5 FL Mean Corpuscular Hemoglobin 27.6 PG 27.9 PG Mean Corpuscular Hemoglobin 32.2 % 32.2 % Concent Red Cell Distribution Width 20.1 % 20.9 % Platelet Count 353 TH/MM3 378 TH/MM3 Mean Platelet Volume 10.2 FL 10.6 FL Laboratory Tests Test 08/05/16 08/06/16 09:29 04:41 Sodium Level 137 MEQ/L 139 MEQ/L Potassium Level 4.3 MEQ/L 3.6 MEQ/L Chloride Level 102 MEQ/L 104 MEQ/L Carbon Dioxide Level 26.8 MEQ/L 25.2 MEQ/L Anion Gap 8 MEQ/L 10 MEQ/L Blood Urea Nitrogen 3 MG/DL 4 MG/DL Creatinine 0.33 MG/DL 0.27 MG/DL Estimat Glomerular Filtration 215 ML/MIN 270 ML/MIN Rate Random Glucose 182 MG/DL 216 MG/DL Calcium Level 8.5 MG/DL 8.1 MG/DL Total Bilirubin 4.0 MG/DL 3.0 MG/DL Direct Bilirubin 2.8 MG/DL 2.4 MG/DL Indirect Bilirubin 1.2 MG/DL 0.6 MG/DL Aspartate Amino Transf 101 U/L 68 U/L (AST/SGOT) Alanine Aminotransferase 73 U/L 56 U/L (ALT/SGPT) Alkaline Phosphatase 999 U/L 841 U/L Total Protein 5.8 GM/DL 4.9 GM/DL Albumin 1.9 GM/DL 1.5 GM/DL Microbiology Date/Time Procedure Status Source Growth 08/04/16 17:10 Aerobic Blood Culture - Preliminary Resulted Blood Peripheral NO GROWTH IN 2 DAYS 08/04/16 17:10 Anaerobic Blood Culture - Preliminary Resulted Blood Peripheral NO GROWTH IN 2 DAYS 08/04/16 17:19 Aerobic Blood Culture - Preliminary Resulted Blood Peripheral NO GROWTH IN 2 DAYS 08/04/16 17:19 Anaerobic Blood Culture - Preliminary Resulted Blood Peripheral NO GROWTH IN 2 DAYS Imaging Last Impressions Abdomen/Pelvis CT 08/02/16 0000 Signed Impressions: Service Date/Time: July 10:43 - CONCLUSION: 1. Cirrhotic liver. 2. Biliary drain in place from the left lobe. There is pneumobilia seen. 3. Non-obstructing 8 mm left renal stone. 4. Status post splenectomy. 5. Mild ascites in the pericolic regions and in the pelvis. 6. Dilatation of the pancreatic duct and the pancreatic body. The pancreatic head is unremarkable. 7. Mild left pleural effusion. There is areas of atelectasis or consolidation at the lung bases bilaterally. Mele Cuba MD Bile Duct Drainage 07/31/16 0000 Signed Impressions: Service Date/Time: Sunday, July 31, 2016 13:05 - CONCLUSION: Uncomplicated biliary stent placement as above. 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 Adeel Esteban MD Cholangiopancreatography MRI 07/30/16 0000 Signed Impressions: Service Date/Time: Saturday, July 30, 2016 13:21 - CONCLUSION: 1. Dilatation of the left intrahepatic biliary ducts with multiple filling defects likely related to air. There does appear to be narrowing of the central biliary ducts. The common bile duct is not clearly recognizable. The configuration at the left ducts appears similar to the prior examination. 2. Very prominent hypertrophy of the left lobe and atrophy of the right lobe likely secondary to cirrhosis. The liver does appear enlarged. Mele Cuba MD Liver Biopsy CT 07/27/16 0000 Signed Impressions: Service Date/Time: Wednesday, July 27, 2016 15:47 - CONCLUSION: Uncomplicated CT guided biopsy of the liver. Mele Yoo MD GI Procedure 07/26/16 0000 Signed Impressions: Service Date/Time: July 10:22 - CONCLUSION: ERCP as above. Feng Rod MD Chest X-Ray 07/19/16 1141 Signed Impressions: Service Date/Time: July 12:25 - CONCLUSION: 1. No acute cardiopulmonary findings. Farzad Morales MD Head CT 07/19/16 0000 Signed Impressions: Service Date/Time: July 16:01 - CONCLUSION: 1. No evidence of acute intracranial pathology. No masses are identified. Nestor Isabel MD Physical Exam CONSTITUTIONAL/GENERAL: This is a thin chronically ill appearing patient, in no apparent distress. Appers ill LINES: b/l forearms PIVs wo e/o infx SKIN: + jaundice, rashes, or lesions. . Skin temperature appropriate. Not diaphoretic. EYES: Pupils equal and round and reactive. Extraocular motions intact. + more prominent scleral icterus. No injection or drainage. Fundi not examined. CARDIOVASCULAR: Regular rate and rhythm without murmurs, gallops, or rubs. No JVD. Peripheral pulses symmetric. RESPIRATORY/CHEST: Symmetric, unlabored respirations. Clear to auscultation. Breath sounds equal bilaterally. No wheezes, rales, or rhonchi. GASTROINTESTINAL: Abdomen soft, marked abdominal tenderness with max in RUQ w/ o guarding or rebound , at least moderately distended. + tender hepatomegaly, or palpable masses. No guarding. Bowel sounds present. Bile draine in place capped MUSCULOSKELETAL: Extremities without clubbing, cyanosis, or edema. Well perfused NEUROLOGICAL: Awake and alert. Motor and sensory grossly within normal limits. Follows commands. Normal speech. Moves all extremities. Assessment & Plan Remarks Recurrent biliary sepsis Sepsis, Kleb pneumo, biliary origin - on admission Cholangitis sp biliary draine placement - ? cholecystits - dw GI: cholecystectomy at tertiary center was recommended on last admsission PSC underlysing dz New septic episode with biliary sepsis: Citrobacter bacteremia - source is biliary; sensitive to levaquine ryan fel[place], switch levaquin po when nausea/vomiting resolves - awaiting hyun on cholecystectomy Christiane Jackson MD Aug 06, 2016 18:20
[2016-08-06 20:00] VITALS: BP 117/76; PULSE 76; PULSE 92; RESP 20; TEMP 99.5; O2SAT 97
[2016-08-07] VITALS: BP 122/72; PULSE 90; RESP 20; TEMP 98.8; O2SAT 96
[2016-08-07] MEDS: HYDROmorphone HCL PF 1 MG/ML VIAL IV PRN ×8 (00:10→23:43)
[2016-08-07] MEDS: PIPERACIL-TAZO 3.375 GM PREMIX 50 ML IV SCH ×4 (01:29→20:35)
[2016-08-07] MEDS: CHLORHEXIDINE GLUCONATE 2 % 1 PACK (2 CLOTHS) TOP SCH (02:04)
[2016-08-07] MEDS: INSULIN NovoLIN REGULAR SUPPLEMENTAL SCALE SQ SCH ×4 (02:59→20:34)
[2016-08-07 04:00] VITALS: BP 122/72; PULSE 90; RESP 20; TEMP 98.8; O2SAT 96
[2016-08-07 08:00] VITALS: BP 119/77; PULSE 76; RESP 16; TEMP 96.9; O2SAT 97
--- NOTE | 2016-08-07 08:43 | HHI.PR ---
Subjective Remarks states persistent pain meds, po intake- improved , had a good BM this am patient appears comfortable asking for pain meds round the clock Objective Vitals Vital Signs Date Time Temp Pulse Resp B/P Pulse Ox O2 Delivery O2 Flow Rate FiO2 08/07/16 04:00 98.8 90 20 122/72 96 08/07/16 03:44 12 08/07/16 00:00 98.8 90 20 122/72 96 08/06/16 20:00 76 08/06/16 20:00 99.5 92 20 117/76 97 08/06/16 16:00 98.8 85 14 112/75 98 08/06/16 12:00 98.0 86 12 114/72 97 I/O 08/06/16 08/06/16 08/06/16 08/07/16 08/07/16 08/07/16 07:00 15:00 23:00 07:00 15:00 23:00 Intake Total 1410 ml 700 ml 480 ml Output Total 550 ml 650 ml Balance 860 ml 700 ml -170 ml Intake Oral 480 ml 700 ml 480 ml IV Total 930 ml Output Urine Total 550 ml 650 ml # Voids 5 # Bowel Movements 0 2 0 Result Diagram: 08/06/16 0441 08/06/16 0441 Imaging Last Impressions Abdomen/Pelvis CT 08/02/16 0000 Signed Impressions: Service Date/Time: July 10:43 - CONCLUSION: 1. Cirrhotic liver. 2. Biliary drain in place from the left lobe. There is pneumobilia seen. 3. Non-obstructing 8 mm left renal stone. 4. Status post splenectomy. 5. Mild ascites in the pericolic regions and in the pelvis. 6. Dilatation of the pancreatic duct and the pancreatic body. The pancreatic head is unremarkable. 7. Mild left pleural effusion. There is areas of atelectasis or consolidation at the lung bases bilaterally. Mele Cuba MD Bile Duct Drainage 07/31/16 0000 Signed Impressions: Service Date/Time: Sunday, July 31, 2016 13:05 - CONCLUSION: Uncomplicated biliary stent placement as above. 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 Adeel Esteban MD Cholangiopancreatography MRI 07/30/16 0000 Signed Impressions: Service Date/Time: Saturday, July 30, 2016 13:21 - CONCLUSION: 1. Dilatation of the left intrahepatic biliary ducts with multiple filling defects likely related to air. There does appear to be narrowing of the central biliary ducts. The common bile duct is not clearly recognizable. The configuration at the left ducts appears similar to the prior examination. 2. Very prominent hypertrophy of the left lobe and atrophy of the right lobe likely secondary to cirrhosis. The liver does appear enlarged. Mele Cuba MD Liver Biopsy CT 07/27/16 0000 Signed Impressions: Service Date/Time: Wednesday, July 27, 2016 15:47 - CONCLUSION: Uncomplicated CT guided biopsy of the liver. Mele Yoo MD GI Procedure 07/26/16 0000 Signed Impressions: Service Date/Time: July 10:22 - CONCLUSION: ERCP as above. Feng Rod MD Chest X-Ray 07/19/16 1141 Signed Impressions: Service Date/Time: July 12:25 - CONCLUSION: 1. No acute cardiopulmonary findings. Farzad Morales MD Head CT 07/19/16 0000 Signed Impressions: Service Date/Time: July 16:01 - CONCLUSION: 1. No evidence of acute intracranial pathology. No masses are identified. Nestor Isabel MD Objective Remarks awake and alert appears comfortable at rest, lungs clear regular rhythm abdomen - biliary stent in place, soft, barely touch abdomen- patient jumped, + bowel sounds extremities no edema Procedures Biliary drain placement. A/P Assessment and Plan 46-year-old female: S/P Septic shock- patient up and ambulating Klebsiella pneumonia bacteremia, cholangitis: now recent culture growing citrobacter - Antibiotics per infectious disease. -T down, WBC down - on Zosyn Acute cholangitis/Liver cirrhosis: cholangitis. ERCP suggestive of primary sclerosing cholangitis. Per Pathologist liver biopsy not consistent with PSC, more suggestive of Cirrhosis. - Appreciate GI following. Liver enzymes stable today. Status post ERCP 07/26/16 > left hepatic tree stricture, continue antibiotic, S/P liver biopsy. - Patient was being considered for transfer to [facility]. However [facility] declined transfer as they do not believe they would do anything different. - S/P biliary drain placement on 07/31/16 by IR per GI recs. - Regular diet as tolerated. Biliary drain is capped per GI on 08/04. - Continue to follow for improvement in liver enzymes and pain. - prn pain meds - LFTs trending down- recheck today - reconsult [facility]- re: cholecystectomy Coagulopathy: Likely secondary to liver disease. - Monitor CBC and coags. s/p transfusion 3 u FFP and Vitamin K 10mg IV x1 on 07/20 for INR 11 now INR 1.0 On Vitamin K 10mg daily per GI - INR today Hypokalemia: Replace and monitor. Recheck today DM type 2. improve po. Start Levemir 5 units bid. comtinue SS GI prophylaxis: PPI. Stool softener PRN constipation. DVT PPx: SCDs. Eleno Patel MD Aug 07, 2016 08:43
[2016-08-07] MEDS: POLYETHYLENE GLYCOL 17 GM PKG PO SCH (08:44)
[2016-08-07] MEDS: PANTOPRAZOLE SODIUM 40 MG VIAL IV SCH (08:44)
[2016-08-07] MEDS: URSODIOL 300 MG CAP PO SCH ×2 (08:45→20:34)
[2016-08-07] MEDS: INSULIN DETEMIR 100 UNITS/ML VIAL SQ SCH ×2 (10:00→20:34)
[2016-08-07 11:29] LABS: PROTHROMBIN TIME - PATIENT 10.6 SEC (9.8-11.6)
[2016-08-07] MEDS: SODIUM CHLOR 0.9% 1000 ML INJ 1,000 ML IV SCH ×2 (11:38→23:42)
[2016-08-07 11:52] LABS: ALT (GPT) 65 U/L (10-53); ANION GAP 9 MEQ/L (5-15); AST (GOT) 78 U/L (15-37); BICARBONATE 26.5 MEQ/L (21.0-32.0); BLOOD UREA NITROGEN 4 MG/DL (7-18); CHLORIDE 100 MEQ/L (98-107); GLOMERULAR FILTRATION RATE 194 ML/MIN (>89); POTASSIUM 3.2 MEQ/L (3.5-5.1); SODIUM (NA) 135 MEQ/L (136-145)
[2016-08-07 12:00] VITALS: BP 109/77; PULSE 86; RESP 17; TEMP 97.7; O2SAT 98
[2016-08-07 12:15] LABS: ALKALINE PHOSPHATASE 953 U/L (45-117); TOTAL BILIRUBIN ADULT 3.6 MG/DL (0.2-1.0)
--- NOTE | 2016-08-07 13:49 | HHI.GIFU ---
Subjective Remarks Patient reports that she has had worsening abdominal pain for the past 2 days. She has nausea without vomiting. She reports low-grade fevers. Into the EMR she had a temperature of 99.5 last night but has been afebrile since. She is tolerating her diet. Discussed with patient placing her biliary drain back to drainage, but she is very hesitant would like to keep this capped for now and consider this tomorrow if worsening of pain/labs. (Aliyah Mosher) Objective Vitals I&O Vital Signs Date Time Temp Pulse Resp B/P Pulse Ox O2 Delivery O2 Flow Rate FiO2 08/07/16 12:00 97.7 86 17 109/77 98 08/07/16 08:00 96.9 76 16 119/77 97 08/07/16 04:00 98.8 90 20 122/72 96 08/07/16 03:44 12 08/07/16 00:00 98.8 90 20 122/72 96 08/06/16 20:00 76 08/06/16 20:00 99.5 92 20 117/76 97 08/06/16 16:00 98.8 85 14 112/75 98 I/O 08/06/16 08/06/16 08/06/16 08/07/16 08/07/16 08/07/16 07:00 15:00 23:00 07:00 15:00 23:00 Intake Total 1410 ml 700 ml 480 ml Output Total 550 ml 650 ml Balance 860 ml 700 ml -170 ml Intake Oral 480 ml 700 ml 480 ml IV Total 930 ml Output Urine Total 550 ml 650 ml # Voids 5 # Bowel Movements 0 2 0 Laboratory Laboratory Tests Test 08/07/16 10:15 Prothrombin Time 10.6 Prothromb Time International 1.0 Ratio Sodium Level 135 Potassium Level 3.2 Chloride Level 100 Carbon Dioxide Level 26.5 Anion Gap 9 Blood Urea Nitrogen 4 Creatinine 0.36 Estimat Glomerular Filtration 194 Rate Random Glucose 276 Calcium Level 8.8 Total Bilirubin 3.6 Aspartate Amino Transf 78 (AST/SGOT) Alanine Aminotransferase 65 (ALT/SGPT) Alkaline Phosphatase 953 Total Protein 6.7 Albumin 2.3 Date/Time Procedure Status Source Growth 08/04/16 17:19 Aerobic Blood Culture - Preliminary Resulted Blood Peripheral NO GROWTH IN 3 DAYS 08/04/16 17:19 Anaerobic Blood Culture - Preliminary Resulted Blood Peripheral NO GROWTH IN 3 DAYS Imaging Last Impressions Abdomen/Pelvis CT 08/02/16 0000 Signed Impressions: Service Date/Time: July 10:43 - CONCLUSION: 1. Cirrhotic liver. 2. Biliary drain in place from the left lobe. There is pneumobilia seen. 3. Non-obstructing 8 mm left renal stone. 4. Status post splenectomy. 5. Mild ascites in the pericolic regions and in the pelvis. 6. Dilatation of the pancreatic duct and the pancreatic body. The pancreatic head is unremarkable. 7. Mild left pleural effusion. There is areas of atelectasis or consolidation at the lung bases bilaterally. Mele Cuba MD Bile Duct Drainage 07/31/16 0000 Signed Impressions: Service Date/Time: Sunday, July 31, 2016 13:05 - CONCLUSION: Uncomplicated biliary stent placement as above. 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 Adeel Esteban MD Cholangiopancreatography MRI 07/30/16 0000 Signed Impressions: Service Date/Time: Saturday, July 30, 2016 13:21 - CONCLUSION: 1. Dilatation of the left intrahepatic biliary ducts with multiple filling defects likely related to air. There does appear to be narrowing of the central biliary ducts. The common bile duct is not clearly recognizable. The configuration at the left ducts appears similar to the prior examination. 2. Very prominent hypertrophy of the left lobe and atrophy of the right lobe likely secondary to cirrhosis. The liver does appear enlarged. Mele Cuba MD Liver Biopsy CT 07/27/16 0000 Signed Impressions: Service Date/Time: Wednesday, July 27, 2016 15:47 - CONCLUSION: Uncomplicated CT guided biopsy of the liver. Mele Yoo MD GI Procedure 07/26/16 0000 Signed Impressions: Service Date/Time: July 10:22 - CONCLUSION: ERCP as above. Feng Rod MD Chest X-Ray 07/19/16 1141 Signed Impressions: Service Date/Time: July 12:25 - CONCLUSION: 1. No acute cardiopulmonary findings. Farzad Morales MD Head CT 07/19/16 0000 Signed Impressions: Service Date/Time: July 16:01 - CONCLUSION: 1. No evidence of acute intracranial pathology. No masses are identified. Nestor Isabel MD Physical Exam HEENT: Normocephalic; atraumatic, + jaundice CHEST: CTA CARDIAC: RRR ABDOMEN: Soft, mildly distended, diffuse tenderness-improved; no hepatosplenomegaly; bowel sounds x 4 quadrants. Biliary drain capped EXTREMITIES: No clubbing, cyanosis, or edema. SKIN: Normal; no rash; + jaundice. 1[employer] GR[employer]: No focal deficits; A&O x3. (MosherAliyah FINISH PATCHER) Assessment and Plan Plan ASSESSMENT: - Sclerosing Cholangitis/Biliary Strictures with sepsis/fever, N/V/Abdominal pain. She is currently following with [facility]. Abdomen/Pelvis CT (07/19/16)----> Continued cirrhotic appearance of the liver. Some areas of scarring or volume loss throughout the right lobe similar to the previous study. No definite solid mass is seen. Status post splenectomy. No significant retroperitoneal adenopathy. MRCP (07/23/16)----> 1. Abnormally dilated left intrahepatic bile ducts with caliber change near the ankit hepatis at the confluence. No mass is appreciated in this area on this examination or the recent CT of the abdomen. Therefore, etiology is nonspecific. Stricture or small mass are the differential diagnostic considerations. These ducts have a similar appearance on the August 2014 examination. Suggest correlation with the clinical history. 2. Normal right intrahepatic bile ducts and common bile duct. Gallbladder is decompressed but demonstrates severe diffuse wall edema which may be related to the portal hypertension and chronic liver disease. 3. Abnormally dilated main pancreatic duct in the tail with associated dilated side branches. There is abrupt caliber change in the mid body. The appearance is similar to multiple prior studies dating back to 2015. I do not see a mass as the cause and since there has been no significant change this may be related to a stricture. Segmental IPMN is also a consideration but felt less likely. Suggest attention to this at followup imaging to confirm stability. 4. The liver demonstrates features diagnostic of cirrhosis. There is a moderate volume of free fluid within the abdomen and pelvis likely related to portal hypertension. There are also small bilateral pleural effusions. Bacteremia with Klebsiella, GNR. [facility] declined patient for transfer because they feel there is nothing they will do differently than we are doing here with regards to her care. S/P ERCP (07/26/16)-----> Ampulla C/W previous sphincterotomy, some sludge removed by balloon, free flow of bile, not able to see the left hepatic tree. No dye in that area, possible stricture, possible stricture in the left hepatic duct. 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 Pt had worsening pain, high fevers, hypotension, tachycardia on 08/01 and her abx were changed by ID to Zosyn and Vanco. Rpt Bcx from 08/01 with Citrobacter species. Rpt. Abdomen/Pelvis CT (08/02/16)-------> 1. Cirrhotic liver. 2. Biliary drain in place from the left lobe. There is pneumobilia seen. 3. Non-obstructing 8 mm left renal stone. 4. Status post splenectomy. 5. Mild ascites in the pericolic regions and in the pelvis. 6. Dilatation of the pancreatic duct and the pancreatic body. The pancreatic head is unremarkable. 7. Mild left pleural effusion. There is areas of atelectasis or consolidation at the lung bases bilaterally. She has improved since abx changed. Biliary drain capped on 08/04/16. States her pain has been worse for the past two days. Nausea without vomiting, tolerating diet. LFTs today with T. Bili 3.6, AST 70, ALT 65, Alk phosph 953. One low grade temp last night of 99.5. Has been afebrile since that time. D/W patient placing biliary drain back to drainage, but she is refusing for now and would like to keep capped until tomorrow and see if her pain and labs improve. Zosyn, Ursodiol. Will ask CM to assist with transfer to [facility] for primary sclerosing cholangitis, persistent elevation of LFTs/pain despite PTHC. - Sepsis, Bacteremia, Fevers, Leukocytosis. Original BCx with Klebsiella, GNR. Rpt. with GNR, Citrobacter species. Afebrile. Vanco/Micafungin stopped. Zosyn - Liver cirrhosis. S/P liver biopsy 07/27/16, results pending. S/P liver biopsy ( 2013) at that time of both her normal liver parenchyma and her liver mass. The normal liver parenchyma revealed chronic hepatitis with bridging fibrosis and cirrhosis grade 2/4, stage 3-4/4 exhibiting bile duct tubular damage and ductopenia, chronic hepaititis with bridging fibrosis. Of note, specimen #1 suggested a differential diagnosis of primary biliary cirrhosis vs. drug induced disease. The histopathology did not suggest that of primary sclerosing cholangitis. The liver mass suggested chronic hepatitis with bridging fibrosis 2/4, stage III/4. Of note, she was evaluated by [facility], but states she was told that her MELD score was too low to be considered for liver transplant. AFP 9.5, Ceruloplasmin 46. MARCELLO negative, ASMA negative, AMA <20.0, Ferritin 159, Iron sat 17.9%. Rpt. Liver biopsy (07/30/16) with severe chronic hepatitis with bridging fibrosis and cirrhosis (grade 2/4; stage 3-4/4) with associated bile stasis, fatty change and histopathologic features most suggestive of drug induced liver disease (including alcohol)- There is no evidence of primary biliary cirrhosis or primary sclerosing cholangitis in this biopsy material. Cytoplasmic inclusions suggestive of Alpha-antitrypsin are prsent as may be observed in cirrhotic livers however it is suggested that serologic studies be performed. The pathologic features present in this biopsy are different from that observed in the liver biopsy of 01/19/14. Of note, alpha one antitrypsin 291 - Hx of abnormal imaging of the gallbladder. HIDA (04/27/16)----> Nonvisualization of the gallbladder. ADDENDUM: Delayed imaging of the abdomen documents an ovoid area of activity in the right upper quadrant in the expected location of the gallbladder based on prior cross-sectional imaging studies. Delayed visualization the gallbladder should exclude complete cystic duct obstruction. However, based on prior imaging studies, the gallbladder demonstrated severe diffuse wall edema. S/P GS evaluation during last admission who did not feel this was contributing to her symptoms and did not recommend cholecystectomy. AFP 9.5, Hepatitis panel negative, alpha 1 antitrypsin 291, ceruloplasmin negative marcello negative, asma negative, ama < 20.0 Rpt. Liver biopsy (07/30/16) with severe chronic hepatitis with bridging fibrosis and cirrhosis (grade 2/4; stage 3-4/4) with associated bile stasis, fatty change and histopathologic features most suggestive of drug induced liver disease ( including alcohol)- There is no evidence of primary biliary cirrhosis or primary sclerosing cholangitis in this biopsy material. Cytoplasmic inclusions suggestive of Alpha-antitrypsin are prsent as may be observed in cirrhotic livers however it is suggested that serologic studies be performed. The pathologic features present in this biopsy are different from that observed in the liver biopsy of 01/19/14. LFT improved. However, previous ERCPs consistent with sclerosing cholangitis. - Hx of non-Hodgkin's lymphoma and completed chemotherapy in 2005, but has had an ongoing problem with biliary strictures and sclerosing cholangitis. Plan: - TOO - Cont. Abx per ID recommendations - Cont. Ursodiol - Cont. PPI - Cont. Miralax - Monitor labs - Pain management - Supportive care - Biliary drain capped 08/04- Recommended placing back to drainage, but patient is refusing and would like to wait until tomorrow if her labs/pain do not improve - [facility] declined patient because they do not feel that they would do anything different with regards to her care - CM to assist with transfer to [facility], primary sclerosing cholangitis with ongoing pain and elevated LFTs despite PTHC- known to them. - Further recommendations as the case develops - Pt seen and examined by Dr. Israel and myself and this note is written on her behalf 1523: Spoke to Dr. Wallace at [facility], states that at this point , they would hold on doing any procedures for further evaluation/treatment because the biliary drain was just placed on 07/31/16 and they would not want to remove this prematurely, for fear of possible bile leak. He states at this point, he would continue current treatment and if no improvement by the end of the week, they would accept as hospital to hospital transfer at that time. ( Aliyah Mosher) Physician Comments seen, examined agree with above (Edel Israel MD) Aliyah Mosher Aug 07, 2016 13:49 Edel Israel MD Aug 07, 2016 16:46
--- NOTE | 2016-08-07 14:16 | PD.CONS ---
HPI Service General Surgery Consult Requested By Dr. Patel Reason for Consult Eval GB Primary Care Physician Gilmar Matos, DO History of Present Illness This is a 46-year-old female with past medical history of non-Hodgkin's lymphoma , sclerosing cholangeitis and diabetes mellitus. The patient arrived to the emergency department on July 19 with generalized abdominal pain times several months with nausea vomiting. The patient reports a temperature at home of 101.4. The patient was admitted to the intensive care unit for septic shock. The patient has a complicated hospitalization including MRCP, ERCP and biliary drain placement. The patient has generalized abdominal pain and a general surgery consultation has been requested for evaluation of her gallbladder. Review of Systems Constitutional: COMPLAINS OF: Fatigue, Weight loss Endocrine: DENIES: Polydipsia, Polyuria, Polyphagia Eyes: DENIES: Diplopia, Eye inflammation Ears, nose, mouth, throat: DENIES: Hearing loss, Vertigo Respiratory: DENIES: Apneas, Cough, Snoring Cardiovascular: DENIES: Chest pain Gastrointestinal: COMPLAINS OF: Abdominal pain, Nausea, Vomiting Genitourinary: DENIES: Urinary frequency, Urinary incontinence, Urgency Musculoskeletal: DENIES: Joint pain Integumentary: DENIES: Abnormal pigmentation Hematologic/lymphatic: DENIES: Bruising Immunologic/allergic: DENIES: Eczema Neurologic: DENIES: Abnormal gait, Headache Psychiatric: DENIES: Confusion, Mood changes Past Family Social History Past Medical History Sclerosing cholangitis Non-Hodgkin's lymphoma status post chemotherapy in 2005 Diabetes Past Surgical History Splenectomy Biliary drain placement Allergies: Coded Allergies: Gadolinium Derivatives (Verified Allergy, Severe, BREATHING PROBLEMS, N/V, CHILLS, 07/19/16) MRI PRECAUTION (Verified Allergy, Severe, NAUSEA; PER PATIENT IT IS A GADOLINIUM ALLERGY KMD 11/25/12, 07/19/16) Morphine (Verified Allergy, Severe, BREATHING PROBLEMS, 07/19/16) Toradol (Verified Allergy, Severe, Shortness of Breath, 07/19/16) *MDRO Multi-Drug Resistant Organism (Verified Adverse Reaction, Unknown, MRSA, 07/20/16) MRSA (abdomen) - 03/2013, 04/2014 MRSA PCR (nares) POSITIVE - 07/19/16 Active Ordered Medications Current Medications Medications (Trade) Dose Ordered Sig/Celso Route Start Time Stop Time Status Last Admin (Levophed-Dextrose Drip) 250 ml @ 0 mls/hr TITRATE IV 07/19/16 14:15 07/20/16 06:38 (Brethine Inj) 1 mg UNSCH PRN SQ 07/19/16 14:15 (Protonix Inj) 40 mg DAILY IV 07/19/16 15:15 08/07/16 08:44 Miscellaneous Information 1 Q361D XX 07/19/16 15:15 07/21/16 07:37 (Chlorhexidine 2% Cloth) Taper DAILY@04 TOP 07/20/16 04:00 07/16/17 03:59 08/01/16 20:41 (Chlorhexidine 2% Cloth) 3 pack UNSCH PRN TOP 07/19/16 15:15 (D50w (Vial) Inj) 25 ml UNSCH PRN IV PUSH 07/19/16 15:15 (Glucagon Inj) 1 mg UNSCH PRN OTHER 07/19/16 15:15 (NovoLIN R SUPPLEMENTAL SCALE) 1 Q6H SQ 07/19/16 15:15 08/07/16 09:01 (Tylenol 650 Mg/ 20 ml Liq) 650 mg Q6H PRN PO 07/20/16 00:30 08/01/16 16:25 (Zofran Inj) 4 mg Q8H PRN IV PUSH 07/21/16 08:15 07/21/16 13:33 (Dilaudid Pf Inj) 0.5 mg Q3H PRN IV 07/24/16 11:45 08/07/16 11:49 Polyethylene Glycol 17 gm 17 gm DAILY PO 07/25/16 15:00 07/28/16 09:23 Piperacillin Sod/ Tazobactam Sod 50 ml @ 100 mls/hr Q6H IV 08/01/16 20:00 08/07/16 13:25 (NS 1000 ml Inj) 1,000 ml @ 70 mls/hr [id number] IV 08/01/16 16:30 08/06/16 08:17 (Actigall) 300 mg Q12HR PO 08/03/16 10:30 08/07/16 08:45 (Levemir Inj) 5 units Q12HR SQ 08/07/16 10:00 08/07/16 10:00 Family History Noncontributory Social History Denies tobacco use Denies EtOH use Denies illicit drug use Physical Exam Vital Signs Vital Signs Date Time Temp Pulse Resp B/P Pulse Ox O2 Delivery O2 Flow Rate FiO2 08/07/16 12:00 97.7 86 17 109/77 98 08/07/16 08:00 96.9 76 16 119/77 97 08/07/16 04:00 98.8 90 20 122/72 96 08/07/16 03:44 12 08/07/16 00:00 98.8 90 20 122/72 96 08/06/16 20:00 76 08/06/16 20:00 99.5 92 20 117/76 97 08/06/16 16:00 98.8 85 14 112/75 98 Physical Exam GENERAL: Alert and awake resting in bed in no acute distress SKIN: Warm and dry. HEAD: Atraumatic. Normocephalic. EYES: Pupils equal and round. No scleral icterus. No injection or drainage. ENT: No nasal bleeding or discharge. Mucous membranes pink and moist. NECK: Trachea midline. CARDIOVASCULAR: Regular rate and rhythm. RESPIRATORY: No accessory muscle use. Clear to auscultation. Breath sounds equal bilaterally. GASTROINTESTINAL: Abdomen soft; generalized tenderness over the abdomen with light palpation; biliary drain Capped with dressing over insertion site; right lower quadrant healed incision MUSCULOSKELETAL: Extremities without clubbing, cyanosis, or edema. No obvious deformities. NEUROLOGICAL: Awake and alert. No obvious cranial nerve deficits. Motor grossly within normal limits. Five out of 5 muscle strength in the arms and legs. Normal speech. PSYCHIATRIC: Appropriate mood and affect; insight and judgment normal. Laboratory Laboratory Tests Test 08/07/16 10:15 Prothrombin Time 10.6 Prothromb Time International 1.0 Ratio Sodium Level 135 Potassium Level 3.2 Chloride Level 100 Carbon Dioxide Level 26.5 Anion Gap 9 Blood Urea Nitrogen 4 Creatinine 0.36 Estimat Glomerular Filtration 194 Rate Random Glucose 276 Calcium Level 8.8 Total Bilirubin 3.6 Aspartate Amino Transf 78 (AST/SGOT) Alanine Aminotransferase 65 (ALT/SGPT) Alkaline Phosphatase 953 Total Protein 6.7 Albumin 2.3 Date/Time Procedure Status Source Growth 08/04/16 17:19 Aerobic Blood Culture - Preliminary Resulted Blood Peripheral NO GROWTH IN 3 DAYS 08/04/16 17:19 Anaerobic Blood Culture - Preliminary Resulted Blood Peripheral NO GROWTH IN 3 DAYS Result Diagram: 08/06/16 0441 08/07/16 1015 Assessment and Plan Assessment and Plan 46-year-old female with sclerosing cholangitis status post biliary drain placement; chronic cholecystitis -Diet as tolerated -Monitor WBC -GI following---discussed case and CM is working on possible transfer to [facility] -Billary drain per GI--currently capped -Pain control -No indication for any surgical procedures at this time -Discussed with Dr. Martínez -Thank you for this consult Attending Statement The exam, history, and the medical decision-making described in the above note were completed with the assistance of the mid-level provider. I reviewed and agree with the findings presented. I attest that I had a [id number] encounter with the patient on the same day, and personally performed and documented my assessment and findings in the medical record. Multiple medical issues, sclerosing cholangitis s/p stent, cirrhosis with ascites abdominal exam benign, no sepsis or acute process requiring emergency surgery, likely chronic cholecystitis agree with current management, will need transfer to [facility]/Transplant center if needs any surgery (Cholecystectomy) thank you, will sign off Moira Henry Aug 07, 2016 14:16 Zach Martínez MD Aug 08, 2016 16:44
[2016-08-07 16:00] VITALS: BP 102/67; PULSE 80; RESP 16; TEMP 98.3; O2SAT 97
[2016-08-07 20:00] VITALS: BP 114/75; PULSE 81; PULSE 86; RESP 20; TEMP 99.4; O2SAT 98
[2016-08-07] MEDS: POTASSIUM CHLOR 10 MEQ PREMIX 100 ML IV SCH (23:41)
[2016-08-08] VITALS: BP 114/77; PULSE 82; RESP 20; TEMP 98.7; O2SAT 97
[2016-08-08] MEDS: PIPERACIL-TAZO 3.375 GM PREMIX 50 ML IV SCH ×2 (01:49→08:53)
[2016-08-08] MEDS: POTASSIUM CHLOR 10 MEQ PREMIX 100 ML IV SCH ×2 (02:25→04:35)
[2016-08-08] MEDS: HYDROmorphone HCL PF 1 MG/ML VIAL IV PRN ×7 (02:41→21:08)
[2016-08-08] MEDS: INSULIN NovoLIN REGULAR SUPPLEMENTAL SCALE SQ SCH ×4 (02:42→23:03)
[2016-08-08 04:00] VITALS: BP 116/76; PULSE 78; RESP 20; TEMP 98.5; O2SAT 97
[2016-08-08] MEDS: CHLORHEXIDINE GLUCONATE 2 % 1 PACK (2 CLOTHS) TOP SCH (04:00)
[2016-08-08 04:58] LABS: BICARBONATE 25.8 MEQ/L (21.0-32.0); INDIRECT BILIRUBIN 0.5 MG/DL (0.0-0.8); POTASSIUM 3.5 MEQ/L (3.5-5.1); TOTAL BILIRUBIN ADULT 2.5 MG/DL (0.2-1.0)
[2016-08-08 06:56] LABS: HEMATOCRIT 30.9 % (35.0-46.0); HEMO FLAGS AUTO DIFF; MEAN CELL VOLUME 89.1 FL (80.0-100.0); MEAN CORPUSCULAR HEMOGLOBIN 27.5 PG (27.0-34.0); MEAN CORPUSCULAR HGB CONC 30.9 % (32.0-36.0); PLATELET COUNT 412 TH/MM3 (150-450); RED BLOOD COUNT 3.47 MIL/MM3 (4.00-5.30); RED CELL DISTRIBUTION WIDTH 20.5 % (11.6-17.2); WHITE BLOOD COUNT 8.1 TH/MM3 (4.0-11.0)
[2016-08-08 07:42] LABS: BANDS 2 % (0-6); BASOPHILS 1 % (0-2); EOSINOPHILS 4 % (0-4); MYELOCYTES 1 % (0-0); NEUTROPHIL # MANUAL DIFF 5.8 TH/MM3 (1.8-7.7); POLYS (SEG NEUTROPHILS) 68 % (16-70); WBC DIFF SAMPLE 100
[2016-08-08 07:43] LABS: HOWELL-JOLLY BODIES PRESENT (NONE SEEN); PLATELET ESTIMATE SMEAR NORMAL (NORMAL); PLATELET MORPHOLOGY NORMAL (NORMAL); SCAN/DIFF FINAL DIFF MANUAL; TARGET CELLS 1+ (NORMAL)
[2016-08-08 08:00] VITALS: BP 108/74; PULSE 80; RESP 19; TEMP 98; O2SAT 97
[2016-08-08] MEDS: POLYETHYLENE GLYCOL 17 GM PKG PO SCH (08:52)
[2016-08-08] MEDS: INSULIN DETEMIR 100 UNITS/ML VIAL SQ SCH ×2 (08:52→21:08)
[2016-08-08] MEDS: URSODIOL 300 MG CAP PO SCH ×2 (08:53→21:08)
[2016-08-08] MEDS: PANTOPRAZOLE SODIUM 40 MG VIAL IV SCH (08:53)
[2016-08-08 12:00] VITALS: BP 110/71; PULSE 87; RESP 19; TEMP 97.9; O2SAT 96
--- NOTE | 2016-08-08 13:46 | HHI.IDPN ---
Subjective Subjective Remarks feeling OK biliary drain clampped for 3 days now co abdominal pain and distention, stable or slightly better afebrile no nausea/vomiting takes po Antibiotics zosyn Lines PIVs in BL forearms wo e/o infx Allergies: Coded Allergies: Gadolinium Derivatives (Verified Allergy, Severe, BREATHING PROBLEMS, N/V, CHILLS, 07/19/16) MRI PRECAUTION (Verified Allergy, Severe, NAUSEA; PER PATIENT IT IS A GADOLINIUM ALLERGY KMD 11/25/12, 07/19/16) Morphine (Verified Allergy, Severe, BREATHING PROBLEMS, 07/19/16) Toradol (Verified Allergy, Severe, Shortness of Breath, 07/19/16) *MDRO Multi-Drug Resistant Organism (Verified Adverse Reaction, Unknown, MRSA, 07/20/16) 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 Vital Signs Date Time Temp Pulse Resp B/P Pulse Ox O2 Delivery O2 Flow Rate FiO2 08/08/16 12:00 97.9 87 19 110/71 96 08/08/16 08:00 98.0 80 19 108/74 97 08/08/16 04:00 98.5 78 20 116/76 97 08/08/16 00:00 98.7 82 20 114/77 97 08/07/16 20:00 99.4 86 20 114/75 98 08/07/16 20:00 81 08/07/16 16:00 98.3 80 16 102/67 97 08/07/16 08/07/16 08/08/16 15:00 23:00 07:00 Intake Total 2361 ml 480 ml 120 ml Balance 2361 ml 480 ml 120 ml Intake Oral 840 ml 480 ml 120 ml IV Total 1521 ml # Voids 6 3 2 # Bowel Movements 2 1 . Laboratory Tests Test 08/08/16 04:13 White Blood Count 8.1 TH/MM3 Red Blood Count 3.47 MIL/MM3 Hemoglobin 9.5 GM/DL Hematocrit 30.9 % Mean Corpuscular Volume 89.1 FL Mean Corpuscular Hemoglobin 27.5 PG Mean Corpuscular Hemoglobin 30.9 % Concent Red Cell Distribution Width 20.5 % Platelet Count 412 TH/MM3 Mean Platelet Volume 10.7 FL Neutrophils (%) (Auto) % Lymphocytes (%) (Auto) % Monocytes (%) (Auto) % Eosinophils (%) (Auto) % Basophils (%) (Auto) % Neutrophils # (Auto) TH/MM3 Lymphocytes # (Auto) TH/MM3 Monocytes # (Auto) TH/MM3 Eosinophils # (Auto) TH/MM3 Basophils # (Auto) TH/MM3 CBC Comment AUTO DIFF Differential Total Cells 100 Counted Neutrophils % (Manual) 68 % Band Neutrophils % 2 % Lymphocytes % 12 % Monocytes % 12 % Eosinophils % 4 % Basophils % 1 % Neutrophils # (Manual) 5.8 TH/MM3 Myelocytes 1 % Differential Comment FINAL DIFF MANUAL Platelet Estimate NORMAL Platelet Morphology Comment NORMAL Target Cells 1+ [place] Bodies PRESENT Hematology Comments Laboratory Tests Test 08/07/16 08/08/16 10:15 04:13 Sodium Level 135 MEQ/L 140 MEQ/L Potassium Level 3.2 MEQ/L 3.5 MEQ/L Chloride Level 100 MEQ/L 105 MEQ/L Carbon Dioxide Level 26.5 MEQ/L 25.8 MEQ/L Anion Gap 9 MEQ/L 9 MEQ/L Blood Urea Nitrogen 4 MG/DL 4 MG/DL Creatinine 0.36 MG/DL 0.21 MG/DL Estimat Glomerular Filtration 194 ML/MIN 361 ML/MIN Rate Random Glucose 276 MG/DL 147 MG/DL Calcium Level 8.8 MG/DL 8.1 MG/DL Total Bilirubin 3.6 MG/DL 2.5 MG/DL Aspartate Amino Transf 78 U/L 64 U/L (AST/SGOT) Alanine Aminotransferase 65 U/L 50 U/L (ALT/SGPT) Alkaline Phosphatase 953 U/L 779 U/L Total Protein 6.7 GM/DL 5.3 GM/DL Albumin 2.3 GM/DL 1.8 GM/DL Direct Bilirubin 2.0 MG/DL Indirect Bilirubin 0.5 MG/DL Imaging Last Impressions Abdomen/Pelvis CT 08/02/16 0000 Signed Impressions: Service Date/Time: July 10:43 - CONCLUSION: 1. Cirrhotic liver. 2. Biliary drain in place from the left lobe. There is pneumobilia seen. 3. Non-obstructing 8 mm left renal stone. 4. Status post splenectomy. 5. Mild ascites in the pericolic regions and in the pelvis. 6. Dilatation of the pancreatic duct and the pancreatic body. The pancreatic head is unremarkable. 7. Mild left pleural effusion. There is areas of atelectasis or consolidation at the lung bases bilaterally. Mele Cuba MD Bile Duct Drainage 07/31/16 0000 Signed Impressions: Service Date/Time: Sunday, July 31, 2016 13:05 - CONCLUSION: Uncomplicated biliary stent placement as above. 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 Adeel Esteban MD Cholangiopancreatography MRI 07/30/16 0000 Signed Impressions: Service Date/Time: Saturday, July 30, 2016 13:21 - CONCLUSION: 1. Dilatation of the left intrahepatic biliary ducts with multiple filling defects likely related to air. There does appear to be narrowing of the central biliary ducts. The common bile duct is not clearly recognizable. The configuration at the left ducts appears similar to the prior examination. 2. Very prominent hypertrophy of the left lobe and atrophy of the right lobe likely secondary to cirrhosis. The liver does appear enlarged. eMle Cuba MD Liver Biopsy CT 07/27/16 0000 Signed Impressions: Service Date/Time: Wednesday, July 27, 2016 15:47 - CONCLUSION: Uncomplicated CT guided biopsy of the liver. Mele oYo MD GI Procedure 07/26/16 0000 Signed Impressions: Service Date/Time: July 10:22 - CONCLUSION: ERCP as above. Feng Rod MD Chest X-Ray 07/19/16 1141 Signed Impressions: Service Date/Time: July 12:25 - CONCLUSION: 1. No acute cardiopulmonary findings. Farzad Morales MD Head CT 07/19/16 0000 Signed Impressions: Service Date/Time: July 16:01 - CONCLUSION: 1. No evidence of acute intracranial pathology. No masses are identified. Nestor Isabel MD Physical Exam CONSTITUTIONAL/GENERAL: This is a thin chronically ill appearing patient, in no apparent distress. Appers ill LINES: b/l forearms PIVs wo e/o infx SKIN: less jaundice, rashes, or lesions. . Skin temperature appropriate. Not diaphoretic. EYES: Pupils equal and round and reactive. Extraocular motions intact. + less of scleral icterus. No injection or drainage. Fundi not examined. CARDIOVASCULAR: Regular rate and rhythm without murmurs, gallops, or rubs. No JVD. Peripheral pulses symmetric. RESPIRATORY/CHEST: Symmetric, unlabored respirations. Clear to auscultation. Breath sounds equal bilaterally. No wheezes, rales, or rhonchi. GASTROINTESTINAL: Abdomen soft, less of abdominal tenderness with max in RUQ w /o guarding or rebound , moderately distended. + tender hepatomegaly, or palpable masses. No guarding. Bowel sounds present. Bile draine in place capped MUSCULOSKELETAL: Extremities without clubbing, cyanosis, or edema. Well perfused NEUROLOGICAL: Awake and alert. Motor and sensory grossly within normal limits. Follows commands. Normal speech. Moves all extremities. Assessment & Plan Remarks Recurrent biliary sepsis Sepsis, Kleb pneumo, biliary origin - on admission Cholangitis sp biliary draine placement - ? cholecystits - dw GI: cholecystectomy at tertiary center was recommended on last admsission - seen by surgeon - transfer to tertiary enter recommended PSC underlysing dz New septic episode with biliary sepsis: Citrobacter bacteremia - source is biliary; sensitive to levaquine ryan felton, switch levaquin po when nausea/vomiting resolves - complete 14 days of abx - awaiting transfer to tertiary enter Christiane Jackson MD Aug 08, 2016 13:46
--- NOTE | 2016-08-08 15:01 | HHI.PR ---
Subjective Remarks tolerating po more still with abdominal discomfort + stools- loose, brown voiding spontaneously requiring and asking for IV pain meds q 3 hours Objective Vitals Vital Signs Date Time Temp Pulse Resp B/P Pulse Ox O2 Delivery O2 Flow Rate FiO2 08/08/16 12:00 97.9 87 19 110/71 96 08/08/16 08:00 98.0 80 19 108/74 97 08/08/16 04:00 98.5 78 20 116/76 97 08/08/16 00:00 98.7 82 20 114/77 97 08/07/16 20:00 99.4 86 20 114/75 98 08/07/16 20:00 81 08/07/16 16:00 98.3 80 16 102/67 97 I/O 08/07/16 08/07/16 08/07/16 08/08/16 08/08/16 08/08/16 07:00 15:00 23:00 07:00 15:00 23:00 Intake Total 2361 ml 480 ml 120 ml 120 ml Balance 2361 ml 480 ml 120 ml 120 ml Intake Oral 840 ml 480 ml 120 ml 120 ml IV Total 1521 ml # Voids 6 3 2 # Bowel Movements 2 1 Result Diagram: 08/08/16 0413 08/08/16 0413 Imaging Last Impressions Abdomen/Pelvis CT 08/02/16 0000 Signed Impressions: Service Date/Time: July 10:43 - CONCLUSION: 1. Cirrhotic liver. 2. Biliary drain in place from the left lobe. There is pneumobilia seen. 3. Non-obstructing 8 mm left renal stone. 4. Status post splenectomy. 5. Mild ascites in the pericolic regions and in the pelvis. 6. Dilatation of the pancreatic duct and the pancreatic body. The pancreatic head is unremarkable. 7. Mild left pleural effusion. There is areas of atelectasis or consolidation at the lung bases bilaterally. Mele Cuba MD Bile Duct Drainage 07/31/16 0000 Signed Impressions: Service Date/Time: Sunday, July 31, 2016 13:05 - CONCLUSION: Uncomplicated biliary stent placement as above. 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 Adeel Esteban MD Cholangiopancreatography MRI 07/30/16 0000 Signed Impressions: Service Date/Time: Saturday, July 30, 2016 13:21 - CONCLUSION: 1. Dilatation of the left intrahepatic biliary ducts with multiple filling defects likely related to air. There does appear to be narrowing of the central biliary ducts. The common bile duct is not clearly recognizable. The configuration at the left ducts appears similar to the prior examination. 2. Very prominent hypertrophy of the left lobe and atrophy of the right lobe likely secondary to cirrhosis. The liver does appear enlarged. Mele Cuba MD Liver Biopsy CT 07/27/16 0000 Signed Impressions: Service Date/Time: Wednesday, July 27, 2016 15:47 - CONCLUSION: Uncomplicated CT guided biopsy of the liver. Mele Yoo MD GI Procedure 07/26/16 0000 Signed Impressions: Service Date/Time: July 10:22 - CONCLUSION: ERCP as above. Feng Rod MD Chest X-Ray 07/19/16 1141 Signed Impressions: Service Date/Time: July 12:25 - CONCLUSION: 1. No acute cardiopulmonary findings. Farzad Morales MD Head CT 07/19/16 0000 Signed Impressions: Service Date/Time: July 16:01 - CONCLUSION: 1. No evidence of acute intracranial pathology. No masses are identified. Nestor Isabel MD Objective Remarks awake and alert appears comfortable lungs clear regular rhythm abdomen - biliary stent in place, soft, tender to even minmal touch, + bowel sounds extremities no edema Procedures Biliary drain placement. A/P Assessment and Plan 46-year-old female: S/P Septic shock- patient up and ambulating Klebsiella pneumonia bacteremia, cholangitis: now recent culture growing citrobacter - Antibiotics per infectious disease. -T down, WBC down - on Zosyn Acute cholangitis/Liver cirrhosis: cholangitis. ERCP suggestive of primary sclerosing cholangitis. Per Pathologist liver biopsy not consistent with PSC, more suggestive of Cirrhosis. - Appreciate GI following. Liver enzymes stable today. Status post ERCP 07/26/16 > left hepatic tree stricture, continue antibiotic, S/P liver biopsy. - Patient was being considered for transfer to [facility]. However [facility] declined transfer as they do not believe they would do anything different. - S/P biliary drain placement on 07/31/16 by IR per GI recs. - Regular diet as tolerated. Biliary drain is capped per GI on 08/04. - Continue to follow for improvement in liver enzymes and pain. - prn pain meds - LFTs trending down- recheck today - reconsulted GS- 08/07- recommended transfer to [facility] working with us Coagulopathy:.- corrected - Monitor CBC and coags. s/p transfusion 3 u FFP and Vitamin K 10mg IV x1 on 07/20 for INR 11 now INR 1.0 - INR good Hypokalemia: Replace and monitor. correcred DM type 2. improve po. continue Levemir 5 units bid. and increase gradually as po improvesomtinue SS GI prophylaxis: PPI. Stool softener PRN constipation. DVT PPx: SCDs. patient sitting on chair encourage IS hourly Eleno Patel MD Aug 08, 2016 15:01 Eleno Paetl MD Aug 08, 2016 15:01
[2016-08-08 16:00] VITALS: BP 108/71; PULSE 81; RESP 20; TEMP 97; O2SAT 98
[2016-08-08] MEDS: LEVOFLOXACIN 750 MG TAB PO SCH (16:06)
[2016-08-08] MEDS: SODIUM CHLOR 0.9% 1000 ML INJ 1,000 ML IV SCH ×2 (16:14→23:03)
[2016-08-08 20:00] VITALS: BP 113/70; PULSE 91; RESP 20; TEMP 98; O2SAT 98
[2016-08-09] VITALS: BP 118/72; PULSE 88; RESP 20; TEMP 97.4; O2SAT 97
[2016-08-09] MEDS: HYDROmorphone HCL PF 1 MG/ML VIAL IV PRN ×8 (00:12→21:25)
[2016-08-09] MEDS: INSULIN NovoLIN REGULAR SUPPLEMENTAL SCALE SQ SCH ×4 (03:15→21:24)
[2016-08-09 04:00] VITALS: BP 116/68; PULSE 84; RESP 20; TEMP 97.8; O2SAT 96
[2016-08-09] MEDS: CHLORHEXIDINE GLUCONATE 2 % 1 PACK (2 CLOTHS) TOP SCH (04:00)
[2016-08-09] MEDS: POLYETHYLENE GLYCOL 17 GM PKG PO SCH (07:45)
[2016-08-09] MEDS: PANTOPRAZOLE SODIUM 40 MG VIAL IV SCH (07:45)
[2016-08-09] MEDS: URSODIOL 300 MG CAP PO SCH (07:45)
[2016-08-09] MEDS: LEVOFLOXACIN 750 MG TAB PO SCH (07:46)
[2016-08-09] MEDS: INSULIN DETEMIR 100 UNITS/ML VIAL SQ SCH ×2 (07:47→21:24)
[2016-08-09 08:00] VITALS: BP 121/78; PULSE 89; RESP 20; TEMP 98.7; O2SAT 97
[2016-08-09] MEDS: ONDANSETRON HCL 4 MG/2 ML VIAL IV PUSH PRN (09:08)
[2016-08-09 12:00] VITALS: BP 122/77; PULSE 79; RESP 16; TEMP 97.6; O2SAT 98
--- NOTE | 2016-08-09 14:05 | HHI.PR ---
Subjective Remarks toelrating po, + BM minimal abdominal pain patient appears very comfortable from observation from outside when walked in- patient would start groaming jumped off the bed with barely touching the abdomen Objective Vitals Vital Signs Date Time Temp Pulse Resp B/P Pulse Ox O2 Delivery O2 Flow Rate FiO2 08/09/16 12:00 97.6 79 16 122/77 98 08/09/16 08:00 98.7 89 20 121/78 97 08/09/16 04:00 97.8 84 20 116/68 96 08/09/16 00:00 97.4 88 20 118/72 97 08/08/16 20:00 98.0 91 20 113/70 98 08/08/16 16:00 97.0 81 20 108/71 98 I/O 08/08/16 08/08/16 08/08/16 08/09/16 08/09/16 08/09/16 07:00 15:00 23:00 07:00 15:00 23:00 Intake Total 120 ml 880 ml 480 ml 440 ml 418 ml Output Total 450 ml 650 ml 700 ml Balance 120 ml 430 ml -170 ml -260 ml 418 ml Intake Oral 120 ml 880 ml 480 ml 440 ml IV Total 418 ml Output Urine Total 450 ml 650 ml 700 ml # Voids 2 # Bowel Movements 1 0 0 Result Diagram: 08/08/16 0413 08/08/16 0413 Imaging Last Impressions Abdomen/Pelvis CT 08/02/16 0000 Signed Impressions: Service Date/Time: July 10:43 - CONCLUSION: 1. Cirrhotic liver. 2. Biliary drain in place from the left lobe. There is pneumobilia seen. 3. Non-obstructing 8 mm left renal stone. 4. Status post splenectomy. 5. Mild ascites in the pericolic regions and in the pelvis. 6. Dilatation of the pancreatic duct and the pancreatic body. The pancreatic head is unremarkable. 7. Mild left pleural effusion. There is areas of atelectasis or consolidation at the lung bases bilaterally. Mele Cuba MD Bile Duct Drainage 07/31/16 0000 Signed Impressions: Service Date/Time: Sunday, July 31, 2016 13:05 - CONCLUSION: Uncomplicated biliary stent placement as above. 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 Adeel Esteban MD Cholangiopancreatography MRI 07/30/16 0000 Signed Impressions: Service Date/Time: Saturday, July 30, 2016 13:21 - CONCLUSION: 1. Dilatation of the left intrahepatic biliary ducts with multiple filling defects likely related to air. There does appear to be narrowing of the central biliary ducts. The common bile duct is not clearly recognizable. The configuration at the left ducts appears similar to the prior examination. 2. Very prominent hypertrophy of the left lobe and atrophy of the right lobe likely secondary to cirrhosis. The liver does appear enlarged. Mele Cuba MD Liver Biopsy CT 07/27/16 0000 Signed Impressions: Service Date/Time: Wednesday, July 27, 2016 15:47 - CONCLUSION: Uncomplicated CT guided biopsy of the liver. Mele Yoo MD GI Procedure 07/26/16 0000 Signed Impressions: Service Date/Time: July 10:22 - CONCLUSION: ERCP as above. Feng Rod MD Chest X-Ray 07/19/16 1141 Signed Impressions: Service Date/Time: July 12:25 - CONCLUSION: 1. No acute cardiopulmonary findings. Farzad Morales MD Head CT 07/19/16 0000 Signed Impressions: Service Date/Time: July 16:01 - CONCLUSION: 1. No evidence of acute intracranial pathology. No masses are identified. Nestor Isabel MD Objective Remarks awake and alert appears comfortable lungs clear regular rhythm abdomen - biliary stent in place, soft, + bowel sounds extremities no edema Procedures Biliary drain placement. A/P Assessment and Plan 46-year-old female: S/P Septic shock- patient up and ambulating Klebsiella pneumonia bacteremia, cholangitis: now recent culture growing citrobacter - Antibiotics per infectious disease. -T down, WBC down - on Zosyn Acute cholangitis/Liver cirrhosis: cholangitis. ERCP suggestive of primary sclerosing cholangitis. Per Pathologist liver biopsy not consistent with PSC, more suggestive of Cirrhosis. - Appreciate GI following. Liver enzymes stable today. Status post ERCP 07/26/16 > left hepatic tree stricture, continue antibiotic, S/P liver biopsy. - Patient was being considered for transfer to [facility]. However [facility] declined transfer as they do not believe they would do anything different. - S/P biliary drain placement on 07/31/16 by IR per GI recs. - Regular diet as tolerated. Biliary drain is capped per GI on 08/04. - Continue to follow for improvement in liver enzymes and pain. - prn pain meds - LFTs trending down- r - reconsulted GS- 08/07- recommended transfer to [facility] working with us -continue current pain regimen Coagulopathy:- corrected Likely secondary to liver disease.- - Monitor CBC and coags. s/p transfusion 3 u FFP and Vitamin K 10mg IV x1 on 07/20 for INR 11 now INR 1.0 - INR good Hypokalemia: Replace and monitor. correcred DM type 2. improve po. continue Levemir 5 units bid. and increase gradually as po improvesomtinue SS GI prophylaxis: PPI. Stool softener PRN constipation. DVT PPx: SCDs. patient sitting on chair encourage IS hourly Eleno Patel MD Aug 09, 2016 14:05 Eleno Patel MD Aug 09, 2016 14:05
[2016-08-09 16:00] VITALS: BP 152/44; PULSE 71; RESP 18; TEMP 98.3; O2SAT 99
--- NOTE | 2016-08-09 16:58 | HHI.GIFU ---
Subjective Remarks Sitting on the edge of bed. Nausea without vomiting. States her pain is the same. She and significant other at bedside state they are frustrated because they feel no one is "fixing her." They state many people have told them that her gallbladder was bad and needed to come out, but no one will take this and she is suffering in pain. D/W patient conversation with [facility] and how they said earlier in week that if there was no improvement, they would accept her at that time. Will call Dr. Wallace tomorrow to d/w him possible transfer. Pt is agreeable to this. (Aliyah Mosher) Objective Vitals I&O Vital Signs Date Time Temp Pulse Resp B/P Pulse Ox O2 Delivery O2 Flow Rate FiO2 08/09/16 16:00 98.3 71 18 152/44 99 08/09/16 12:00 97.6 79 16 122/77 98 08/09/16 08:00 98.7 89 20 121/78 97 08/09/16 04:00 97.8 84 20 116/68 96 08/09/16 00:00 97.4 88 20 118/72 97 08/08/16 20:00 98.0 91 20 113/70 98 I/O 08/08/16 08/08/16 08/08/16 08/09/16 08/09/16 08/09/16 07:00 15:00 23:00 07:00 15:00 23:00 Intake Total 120 ml 880 ml 480 ml 440 ml 898 ml Output Total 450 ml 650 ml 700 ml Balance 120 ml 430 ml -170 ml -260 ml 898 ml Intake Oral 120 ml 880 ml 480 ml 440 ml 480 ml IV Total 418 ml Output Urine Total 450 ml 650 ml 700 ml # Voids 2 3 # Bowel Movements 1 0 0 Laboratory Date/Time Procedure Status Source Growth 08/04/16 17:19 Aerobic Blood Culture - Final Complete Blood Peripheral NO GROWTH IN 5 DAYS 08/04/16 17:19 Anaerobic Blood Culture - Final Complete Blood Peripheral NO GROWTH IN 5 DAYS Imaging Last Impressions Abdomen/Pelvis CT 08/02/16 0000 Signed Impressions: Service Date/Time: July 10:43 - CONCLUSION: 1. Cirrhotic liver. 2. Biliary drain in place from the left lobe. There is pneumobilia seen. 3. Non-obstructing 8 mm left renal stone. 4. Status post splenectomy. 5. Mild ascites in the pericolic regions and in the pelvis. 6. Dilatation of the pancreatic duct and the pancreatic body. The pancreatic head is unremarkable. 7. Mild left pleural effusion. There is areas of atelectasis or consolidation at the lung bases bilaterally. Mele Cuba MD Bile Duct Drainage 07/31/16 0000 Signed Impressions: Service Date/Time: Sunday, July 31, 2016 13:05 - CONCLUSION: Uncomplicated biliary stent placement as above. 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 Adeel Esteban MD Cholangiopancreatography MRI 07/30/16 0000 Signed Impressions: Service Date/Time: Saturday, July 30, 2016 13:21 - CONCLUSION: 1. Dilatation of the left intrahepatic biliary ducts with multiple filling defects likely related to air. There does appear to be narrowing of the central biliary ducts. The common bile duct is not clearly recognizable. The configuration at the left ducts appears similar to the prior examination. 2. Very prominent hypertrophy of the left lobe and atrophy of the right lobe likely secondary to cirrhosis. The liver does appear enlarged. Mele Cuba MD Liver Biopsy CT 07/27/16 0000 Signed Impressions: Service Date/Time: Wednesday, July 27, 2016 15:47 - CONCLUSION: Uncomplicated CT guided biopsy of the liver. Mele Yoo MD GI Procedure 07/26/16 0000 Signed Impressions: Service Date/Time: July 10:22 - CONCLUSION: ERCP as above. Feng Rod MD Chest X-Ray 07/19/16 1141 Signed Impressions: Service Date/Time: July 12:25 - CONCLUSION: 1. No acute cardiopulmonary findings. Farzad Morales MD Head CT 07/19/16 0000 Signed Impressions: Service Date/Time: July 16:01 - CONCLUSION: 1. No evidence of acute intracranial pathology. No masses are identified. Nestor Isabel MD Physical Exam HEENT: Normocephalic; atraumatic, + jaundice CHEST: CTA CARDIAC: RRR ABDOMEN: Soft, mildly distended, diffuse tenderness-improved; no hepatosplenomegaly; bowel sounds x 4 quadrants. Biliary drain capped EXTREMITIES: No clubbing, cyanosis, or edema. SKIN: Normal; no rash; + jaundice. PAPER BAG MAKER: No focal deficits; A&O x3. (Aliyah Mosher) Assessment and Plan Plan ASSESSMENT: - Sclerosing Cholangitis/Biliary Strictures with sepsis/fever, N/V/Abdominal pain. She is currently following with [facility]. Abdomen/Pelvis CT (07/19/16)----> Continued cirrhotic appearance of the liver. Some areas of scarring or volume loss throughout the right lobe similar to the previous study. No definite solid mass is seen. Status post splenectomy. No significant retroperitoneal adenopathy. MRCP (07/23/16)----> 1. Abnormally dilated left intrahepatic bile ducts with caliber change near the ankit hepatis at the confluence. No mass is appreciated in this area on this examination or the recent CT of the abdomen. Therefore, etiology is nonspecific. Stricture or small mass are the differential diagnostic considerations. These ducts have a similar appearance on the August 2014 examination. Suggest correlation with the clinical history. 2. Normal right intrahepatic bile ducts and common bile duct. Gallbladder is decompressed but demonstrates severe diffuse wall edema which may be related to the portal hypertension and chronic liver disease. 3. Abnormally dilated main pancreatic duct in the tail with associated dilated side branches. There is abrupt caliber change in the mid body. The appearance is similar to multiple prior studies dating back to 2014. I do not see a mass as the cause and since there has been no significant change this may be related to a stricture. Segmental IPMN is also a consideration but felt less likely. Suggest attention to this at followup imaging to confirm stability. 4. The liver demonstrates features diagnostic of cirrhosis. There is a moderate volume of free fluid within the abdomen and pelvis likely related to portal hypertension. There are also small bilateral pleural effusions. Bacteremia with Klebsiella, GNR. [facility] declined patient for transfer because they feel there is nothing they will do differently than we are doing here with regards to her care. S/P ERCP (07/26/16)-----> Ampulla C/W previous sphincterotomy, some sludge removed by balloon, free flow of bile, not able to see the left hepatic tree. No dye in that area, possible stricture, possible stricture in the left hepatic duct. 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 Pt had worsening pain, high fevers, hypotension, tachycardia on 08/01 and her abx were changed by ID to Zosyn and Vanco. Rpt Bcx from 08/01 with Citrobacter species. Rpt. Abdomen/Pelvis CT (08/02/16)-------> 1. Cirrhotic liver. 2. Biliary drain in place from the left lobe. There is pneumobilia seen. 3. Non-obstructing 8 mm left renal stone. 4. Status post splenectomy. 5. Mild ascites in the pericolic regions and in the pelvis. 6. Dilatation of the pancreatic duct and the pancreatic body. The pancreatic head is unremarkable. 7. Mild left pleural effusion. There is areas of atelectasis or consolidation at the lung bases bilaterally. She has improved since abx changed. Biliary drain capped on 08/04/16. States her pain has been worse for the past two days. Nausea without vomiting, tolerating diet. Her LFTs are trending down and she seems to be tolerating capping of biliary drain by labs, but she continues to have abdominal pain- no improvement. Spoke to Dr. Wallace earlier in week and he was reluctant to accept pt at that time because he did not want to remove the biliary drain too soon for fear of a bile leak, but said if there was no improvement by the end of the week, he would accept patient as hospital to hospital transfer at that time. Will call in am to update on patient's condition, ongoing pain. Levaquin, Ursodiol. CM following. - Sepsis, Bacteremia, Fevers, Leukocytosis. Original BCx with Klebsiella, GNR. Rpt. with GNR, Citrobacter species. Afebrile. Levaquin. - Liver cirrhosis. S/P liver biopsy 07/27/16, results pending. S/P liver biopsy ( 2013) at that time of both her normal liver parenchyma and her liver mass. The normal liver parenchyma revealed chronic hepatitis with bridging fibrosis and cirrhosis grade 2/4, stage 3-4/4 exhibiting bile duct tubular damage and ductopenia, chronic hepaititis with bridging fibrosis. Of note, specimen #1 suggested a differential diagnosis of primary biliary cirrhosis vs. drug induced disease. The histopathology did not suggest that of primary sclerosing cholangitis. The liver mass suggested chronic hepatitis with bridging fibrosis 2/4, stage III/4. Of note, she was evaluated by [facility], but states she was told that her MELD score was too low to be considered for liver transplant. AFP 9.5, Ceruloplasmin 46. MARCELLO negative, ASMA negative, AMA <20.0, Ferritin 159, Iron sat 17.9%. Rpt. Liver biopsy (07/30/16) with severe chronic hepatitis with bridging fibrosis and cirrhosis (grade 2/4; stage 3-4/4) with associated bile stasis, fatty change and histopathologic features most suggestive of drug induced liver disease (including alcohol)- There is no evidence of primary biliary cirrhosis or primary sclerosing cholangitis in this biopsy material. Cytoplasmic inclusions suggestive of Alpha-antitrypsin are prsent as may be observed in cirrhotic livers however it is suggested that serologic studies be performed. The pathologic features present in this biopsy are different from that observed in the liver biopsy of 01/19/14. Of note, alpha one antitrypsin 291 - Hx of abnormal imaging of the gallbladder. HIDA (04/27/16)----> Nonvisualization of the gallbladder. ADDENDUM: Delayed imaging of the abdomen documents an ovoid area of activity in the right upper quadrant in the expected location of the gallbladder based on prior cross-sectional imaging studies. Delayed visualization the gallbladder should exclude complete cystic duct obstruction. However, based on prior imaging studies, the gallbladder demonstrated severe diffuse wall edema. S/P GS evaluation during last admission who did not feel this was contributing to her symptoms and did not recommend cholecystectomy. AFP 9.5, Hepatitis panel negative, alpha 1 antitrypsin 291, ceruloplasmin negative marcello negative, asma negative, ama < 20.0 Rpt. Liver biopsy (07/30/16) with severe chronic hepatitis with bridging fibrosis and cirrhosis (grade 2/4; stage 3-4/4) with associated bile stasis, fatty change and histopathologic features most suggestive of drug induced liver disease ( including alcohol)- There is no evidence of primary biliary cirrhosis or primary sclerosing cholangitis in this biopsy material. Cytoplasmic inclusions suggestive of Alpha-antitrypsin are prsent as may be observed in cirrhotic livers however it is suggested that serologic studies be performed. The pathologic features present in this biopsy are different from that observed in the liver biopsy of 01/19/14. LFT improved. However, previous ERCPs consistent with sclerosing cholangitis. - Hx of non-Hodgkin's lymphoma and completed chemotherapy in 2005, but has had an ongoing problem with biliary strictures and sclerosing cholangitis. Plan: - TOO - Cont. Abx per ID recommendations - Cont. Ursodiol - Cont. PPI - Cont. Miralax - Monitor labs - Pain management - Supportive care - Biliary drain capped 08/04- Recommended placing back to drainage, but patient is refusing and would like to wait until tomorrow if her labs/pain do not improve - [facility] declined patient because they do not feel that they would do anything different with regards to her care - Will contact Dr. Wallace at [facility] in am for possible transfer- he had said earlier in week if no improvement by Saturday, he would accept patient as hospital to hospital transfer. - Further recommendations as the case develops - Pt seen and examined by Dr. Israel and myself and this note is written on her behalf (Aliyah Mosher) Physician Comments seen, examined agree with above we will start Actigall/creon (Edel Israel MD) Aliyah Mosher Aug 09, 2016 16:58 Edel Israel MD Aug 09, 2016 17:47
[2016-08-09 20:14] VITALS: BP 119/74; PULSE 79; RESP 16; TEMP 98.9; O2SAT 97
[2016-08-10] MEDS: HYDROmorphone HCL PF 1 MG/ML VIAL IV PRN ×8 (00:14→21:37)
[2016-08-10 00:25] VITALS: BP 123/77; PULSE 100; RESP 16; TEMP 98.2; O2SAT 96
[2016-08-10] MEDS: INSULIN NovoLIN REGULAR SUPPLEMENTAL SCALE SQ SCH ×4 (03:28→21:36)
[2016-08-10] MEDS: CHLORHEXIDINE GLUCONATE 2 % 1 PACK (2 CLOTHS) TOP SCH ×2 (04:00→22:30)
[2016-08-10 04:45] VITALS: BP 108/69; PULSE 90; RESP 16; TEMP 97.7; O2SAT 96
[2016-08-10] MEDS: URSODIOL 300 MG CAP PO SCH ×2 (06:18→15:24)
[2016-08-10] MEDS: POLYETHYLENE GLYCOL 17 GM PKG PO SCH (07:17)
[2016-08-10 08:00] VITALS: BP 112/75; PULSE 87; RESP 16; TEMP 97.5; O2SAT 97
[2016-08-10] MEDS: LEVOFLOXACIN 750 MG TAB PO SCH (08:05)
[2016-08-10] MEDS: LIPASE/PROTEASE/AMYLASE (12,000/38,000/60,000) CAP PO SCH ×3 (08:05→15:24)
[2016-08-10] MEDS: INSULIN DETEMIR 100 UNITS/ML VIAL SQ SCH ×2 (08:07→21:37)
[2016-08-10] MEDS: PANTOPRAZOLE SODIUM 40 MG VIAL IV SCH (08:10)
--- NOTE | 2016-08-10 11:29 | HHI.GIFU ---
GI Follow-up Note Consult Follow-up Called [facility] to update on patient's condition- pt having ongoing abdominal pain- no improvement clinically/possible transfer to their facility. Spoke to Elvira, she will have the concrete rubber physician either call Dr. Israel or myself to further discuss. Entered by: Aliyah Jade Aug 10, 2016 11:28
[2016-08-10 12:00] VITALS: BP 123/78; PULSE 81; RESP 16; TEMP 96.9; O2SAT 99
[2016-08-10] MEDS: SODIUM CHLOR 0.9% 1000 ML INJ 1,000 ML IV SCH (12:16)
--- NOTE | 2016-08-10 13:16 | HHI.PR ---
Subjective Remarks appears very very comfortable, observed from afar- she is ambulating, sat on chair watching TV- states ate 1/2 of a sandwich and bowl of soup and tolerated well + BM brown soft stools, no chills, no nausea or vomiting states still with pain but states "better" - asking for meds RTC- - on exam -just even barely touching with scope and - she will groan instantly Objective Vitals Vital Signs Date Time Temp Pulse Resp B/P Pulse Ox O2 Delivery O2 Flow Rate FiO2 08/10/16 12:00 96.9 81 16 123/78 99 08/10/16 08:00 97.5 87 16 112/75 97 08/10/16 04:45 97.7 90 16 108/69 96 08/10/16 00:25 98.2 100 16 123/77 96 08/09/16 20:14 98.9 79 16 119/74 97 08/09/16 16:00 98.3 71 18 152/44 99 I/O 08/09/16 08/09/16 08/09/16 08/10/16 08/10/16 08/10/16 07:00 15:00 23:00 07:00 15:00 23:00 Intake Total 440 ml 898 ml 760 ml 480 ml 187 ml Output Total 700 ml Balance -260 ml 898 ml 760 ml 480 ml 187 ml Intake Oral 440 ml 480 ml 760 ml 480 ml IV Total 418 ml 187 ml Output Urine Total 700 ml # Voids 3 2 3 # Bowel Movements 0 1 Result Diagram: 08/08/16 0413 08/08/16 0413 Imaging Last Impressions Abdomen/Pelvis CT 08/02/16 0000 Signed Impressions: Service Date/Time: July 10:43 - CONCLUSION: 1. Cirrhotic liver. 2. Biliary drain in place from the left lobe. There is pneumobilia seen. 3. Non-obstructing 8 mm left renal stone. 4. Status post splenectomy. 5. Mild ascites in the pericolic regions and in the pelvis. 6. Dilatation of the pancreatic duct and the pancreatic body. The pancreatic head is unremarkable. 7. Mild left pleural effusion. There is areas of atelectasis or consolidation at the lung bases bilaterally. Mele Cuba MD Bile Duct Drainage 07/31/16 0000 Signed Impressions: Service Date/Time: Sunday, July 31, 2016 13:05 - CONCLUSION: Uncomplicated biliary stent placement as above. 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 Adeel Esteban MD Cholangiopancreatography MRI 07/30/16 0000 Signed Impressions: Service Date/Time: Saturday, July 30, 2016 13:21 - CONCLUSION: 1. Dilatation of the left intrahepatic biliary ducts with multiple filling defects likely related to air. There does appear to be narrowing of the central biliary ducts. The common bile duct is not clearly recognizable. The configuration at the left ducts appears similar to the prior examination. 2. Very prominent hypertrophy of the left lobe and atrophy of the right lobe likely secondary to cirrhosis. The liver does appear enlarged. Mele Cuba MD Liver Biopsy CT 07/27/16 0000 Signed Impressions: Service Date/Time: Wednesday, July 27, 2016 15:47 - CONCLUSION: Uncomplicated CT guided biopsy of the liver. Mele Yoo MD GI Procedure 07/26/16 0000 Signed Impressions: Service Date/Time: July 10:22 - CONCLUSION: ERCP as above. Feng Rod MD Chest X-Ray 07/19/16 1141 Signed Impressions: Service Date/Time: July 12:25 - CONCLUSION: 1. No acute cardiopulmonary findings. Farzad Morales MD Head CT 07/19/16 0000 Signed Impressions: Service Date/Time: July 16:01 - CONCLUSION: 1. No evidence of acute intracranial pathology. No masses are identified. Nestor Isabel MD Objective Remarks awake and alert appears comfortable lungs clear regular rhythm abdomen - biliary stent in place, soft, good bowel sounds, mild tenderness on right upper quadrant area extremities no edema Procedures Biliary drain placement. A/P Assessment and Plan 46-year-old female: S/P Septic shock- patient up and ambulating- clinically improved Klebsiella pneumonia bacteremia, cholangitis: now recent culture growing citrobacter - Antibiotics per infectious disease. 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 Per Pathologist liver biopsy not consistent with PSC, more suggestive of Cirrhosis. - Appreciate GI following. Liver enzymes stable today. Status post ERCP 07/26/16 > left hepatic tree stricture, continue antibiotic, S/P liver biopsy. - Patient being considered for transfer to [facility]. - - S/P biliary drain placement on 07/31/16 by IR - Regular diet as tolerated. Biliary drain is capped per GI since 08/04. - Continue to follow for improvement in liver enzymes and pain. - prn pain meds - LFTs trending down- - reconsulted GS- 08/07- recommended transfer to [facility] working with us - d.w her will not increase pain meds - continue pain regimen- IV dilaudid dosed decreased to 0.25 mg IV prn q3 -08/08 - watches the clock - - D/W Ms Mosher- - Dr. Urbina will be talking to GI specialist to get an accepting GI physician Coagulopathy: corrected Likely secondary to liver disease. - Monitor CBC and coags. s/p transfusion 3 u FFP and Vitamin K 10mg IV x1 on 07/20 for INR 11 now INR 1.0 - INR good Hypokalemia: Replace and corrected DM type 2. improve po. continue Levemir 5 units bid. and increase gradually as po improve. continue SS GI prophylaxis: PPI. Stool softener PRN for constipation. DVT PPx: SCDs. patient up and ambulating encourage IS hourly Eleno Patel MD Aug 10, 2016 13:16 Eleno Patel MD Aug 10, 2016 13:16 Eleno Patel MD Aug 10, 2016 13:16 Eleno Patel MD Aug 10, 2016 13:16
[2016-08-10 16:00] VITALS: BP 116/77; PULSE 91; RESP 17; TEMP 99.4; O2SAT 98
--- NOTE | 2016-08-10 16:34 | HHI.GIFU ---
GI Follow-up Note Consult Follow-up Subjective: Patient laying in bed comfortably, complaining of pain, nausea, no vomiting .Awaiting answer from [facility] for possible transfer if indicated . Objective: PHYSICAL EXAMINATION: Vitals signs stable No fever Vital Signs Date Time Temp Pulse Resp B/P Pulse Ox O2 Delivery O2 Flow Rate FiO2 08/10/16 16:00 99.4 91 17 116/77 98 08/10/16 12:00 96.9 81 16 123/78 99 HEENT: Pupils round and reactive to light; normocephalic; atraumatic; jaundice. Throat is clear. NECK: Neck is supple, no JVD, no lymphadenopathy. CHEST: Chest is clear to auscultation and percussion. CARDIAC: Regular rate and rhythm with no murmur gallop or rubs. ABDOMEN: Soft, mildly distended, tenderness epigastrium ; no hepatosplenomegaly ; bowel sounds are present in all four quadrants. EXTREMITIES: No clubbing, cyanosis, or edema. SKIN: Normal; no rash; jaundice. QUANTOMETER OPERATOR: No focal deficits; alert and oriented times three. Available Data (labs, X- Rays, Procedues) : ASSESSMENT/PLAN: recurrent biliary stricture, cholangitis -s/p biliary drainage, ercp sclerosing cholangitis liver cirrhosis -recent liver biopsy reviewed-patient denies any use of etoh , was not considered a liver transplant candidate sepsis secondary cholangitis-on antibiotics, management as per ID abnormal gb on ct /hida-was evaluated by local general surgeons and [facility]-no surgery indicated at this point Recommendations continue Actigall/Creon continue IV antibiotics supportive care transfer to [facility] if accepted if not and she remains stable consider d/c home with possible home care a fu with them op It was a pleasure seeing Suni Peterson. Thank you for this consult. Entered by: Edel Israel discussed with [facility]- nothing to offer at this point Edel Israel MD Aug 10, 2016 16:34
--- NOTE | 2016-08-10 17:16 | HHI.GIFU ---
GI Follow-up Note Consult Follow-up Spoke to Dr. Daley at [facility] re: possible transfer. He does not feel that they can do any interventional GI procedures at this time because the biliary drain takes 6 weeks to form a track and they would not remove this prior to that time. He thinks the best route to go if she is not improving would be to transfer her through the hepatology service and would like for us to call Chastity back at and she will connect us to the theater education teacher to see if he will approve transfer. Entered by: Aliyah Jade Aug 10, 2016 17:16
[2016-08-10 20:31] VITALS: BP 109/67; PULSE 84; RESP 18; TEMP 96.7; O2SAT 96
[2016-08-11] VITALS (7 sets, daily range): BP systolic 110–126; BP diastolic 69–80; PULSE 88–110; RESP 16–18; TEMP 96.2–99.5; O2SAT 96–99
[2016-08-11] MEDS: HYDROmorphone HCL PF 1 MG/ML VIAL IV PRN ×7 (01:07→20:55)
[2016-08-11] MEDS: INSULIN NovoLIN REGULAR SUPPLEMENTAL SCALE SQ SCH ×4 (03:14→21:00)
[2016-08-11] MEDS: URSODIOL 300 MG CAP PO SCH ×2 (06:07→17:54)
[2016-08-11] MEDS: LEVOFLOXACIN 750 MG TAB PO SCH (08:11)
[2016-08-11] MEDS: PANTOPRAZOLE SOD 40 MG DELAYED RELEASE TAB PO SCH (08:11)
[2016-08-11] MEDS: LIPASE/PROTEASE/AMYLASE (12,000/38,000/60,000) CAP PO SCH ×3 (08:11→17:54)
[2016-08-11] MEDS: POLYETHYLENE GLYCOL 17 GM PKG PO SCH (08:12)
[2016-08-11] MEDS: INSULIN DETEMIR 100 UNITS/ML VIAL SQ SCH ×2 (10:31→21:00)
--- NOTE | 2016-08-11 19:58 | HHI.PR ---
Subjective Remarks Patient crying ,states she lives in constant generalized abdominal pain, only IV pain medications work. C/o nausea but no vomiting. Objective Vitals Vital Signs Date Time Temp Pulse Resp B/P Pulse Ox O2 Delivery O2 Flow Rate FiO2 08/11/16 16:00 97.0 89 17 122/80 99 08/11/16 12:00 98.0 93 16 114/75 99 08/11/16 08:00 97.2 90 16 110/69 98 08/11/16 04:00 96.2 88 18 118/72 96 08/11/16 00:07 97.5 90 16 110/71 97 08/10/16 20:31 96.7 84 18 109/67 96 I/O 08/10/16 08/10/16 08/10/16 08/11/16 08/11/16 08/11/16 07:00 15:00 23:00 07:00 15:00 23:00 Intake Total 480 ml 1867 ml 700 ml 686 ml 660 ml Balance 480 ml 1867 ml 700 ml 686 ml 660 ml Intake Oral 480 ml 1680 ml 480 ml 480 ml 660 ml IV Total 187 ml 220 ml 206 ml 0 ml # Voids 3 3 3 2 3 # Bowel Movements 1 0 0 1 1 Result Diagram: 08/08/1641208/08/16412 Objective Remarks GENERAL: petite chronically ill CF patient. SKIN: Warm and dry. HEAD: Normocephalic. EYES: No scleral icterus. No injection or drainage. NECK: Supple, trachea midline. No JVD or lymphadenopathy. CARDIOVASCULAR: Regular rate and rhythm without murmurs, gallops, or rubs. RESPIRATORY: Breath sounds equal bilaterally. No accessory muscle use. GASTROINTESTINAL: Abdomen soft, tender to palpation throughout, left abdomen has biliary drain in place no erythema. EXTREMITIES: trace-1+pdema. NEUROLOGICAL: Awake, alert, and oriented x 3. Non-focal. Procedures Biliary drain placement. A/P Assessment and Plan 46-year-old female: S/P Septic shock- patient up and ambulating- clinically improved Klebsiella pneumonia bacteremia, cholangitis: now recent culture growing citrobacter - Antibiotics per infectious disease. 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 Per Pathologist liver biopsy not consistent with PSC, more suggestive of Cirrhosis. -GI ff. Status post ERCP 07/26/16> left hepatic tree stricture, continue antibiotic, S/P liver biopsy. - Patient being considered for transfer to [facility]. - - S/P biliary drain placement on 07/31/16 by IR - Regular diet as tolerated. Biliary drain is capped per GI since 08/04. - Continue to follow for improvement in liver enzymes and pain. LFts in a.m. - prn pain meds - LFTs trending down nicely - reconsulted GS- 08/07- recommended transfer to [facility] attempting/Dr. Israel -chronic constant abdominal pain - difficult to control, clock watching - patient agreeable to palliative care consult, but not interested in hospice, wants cure -apparently not a candidate for liver transfer Coagulopathy: corrected Likely secondary to liver disease. - Monitor CBC and coags. s/p transfusion 3 u FFP and Vitamin K 10mg IV x1 on 07/20 for INR 11 now INR 1.0 - INR good Hypokalemia: Replace and corrected DM type 2. improve po. continue Levemir 5 units bid. and increase gradually as po improve. continue SS GI prophylaxis: PPI. Stool softener PRN for constipation. DVT PPx: SCDs. Discharge Planning Per GI - attempt transfer to tertiary care center, but if not accepted and patient remain stable, may DC with OP f/u Arin Hickey MD Aug 11, 2016 19:58
[2016-08-12] VITALS (7 sets, daily range): BP systolic 105–132; BP diastolic 68–83; PULSE 93–116; RESP 16–17; TEMP 98.5–101.4; O2SAT 97–98
[2016-08-12] MEDS: HYDROmorphone HCL PF 1 MG/ML VIAL IV PRN ×8 (00:15→21:44)
[2016-08-12] MEDS: CHLORHEXIDINE GLUCONATE 2 % 1 PACK (2 CLOTHS) TOP SCH (01:28)
[2016-08-12] MEDS: INSULIN NovoLIN REGULAR SUPPLEMENTAL SCALE SQ SCH ×4 (03:26→21:48)
[2016-08-12 04:37] LABS: HEMATOCRIT 29.1 % (35.0-46.0); MEAN CORPUSCULAR HEMOGLOBIN 28.5 PG (27.0-34.0); MEAN CORPUSCULAR HGB CONC 33.6 % (32.0-36.0); PLATELET COUNT 462 TH/MM3 (150-450); RED BLOOD COUNT 3.43 MIL/MM3 (4.00-5.30); RED CELL DISTRIBUTION WIDTH 20.9 % (11.6-17.2); WHITE BLOOD COUNT 10.5 TH/MM3 (4.0-11.0)
[2016-08-12 04:43] LABS: ALT (GPT) 50 U/L (10-53); ANION GAP 7 MEQ/L (5-15); AST (GOT) 98 U/L (15-37); BICARBONATE 26.8 MEQ/L (21.0-32.0); BLOOD UREA NITROGEN 8 MG/DL (7-18); CHLORIDE 105 MEQ/L (98-107); GLOMERULAR FILTRATION RATE 432 ML/MIN (>89); POTASSIUM 3.6 MEQ/L (3.5-5.1); SODIUM (NA) 139 MEQ/L (136-145)
[2016-08-12 04:53] LABS: HEMO FLAGS AUTO DIFF
[2016-08-12 04:55] LABS: ALKALINE PHOSPHATASE 1008 U/L (45-117); TOTAL BILIRUBIN ADULT 2.2 MG/DL (0.2-1.0)
[2016-08-12] MEDS: URSODIOL 300 MG CAP PO SCH ×2 (06:35→15:55)
[2016-08-12 06:49] LABS: BANDS 1 % (0-6); EOSINOPHILS 3 % (0-4); METAMYELOCYTES 1 % (0-1); NEUTROPHIL # MANUAL DIFF 9.1 TH/MM3 (1.8-7.7); POLYS (SEG NEUTROPHILS) 85 % (16-70); WBC DIFF SAMPLE 100
[2016-08-12 06:50] LABS: OVALOCYTES 1+ (NORMAL); TARGET CELLS 1+ (NORMAL)
[2016-08-12 06:51] LABS: PLATELET ESTIMATE SMEAR HIGH (NORMAL); PLATELET MORPHOLOGY NORMAL (NORMAL); SCAN/DIFF FINAL DIFF MANUAL
[2016-08-12] MEDS: LIPASE/PROTEASE/AMYLASE (12,000/38,000/60,000) CAP PO SCH ×3 (08:49→17:04)
[2016-08-12] MEDS: PANTOPRAZOLE SOD 40 MG DELAYED RELEASE TAB PO SCH (08:49)
[2016-08-12] MEDS: LEVOFLOXACIN 750 MG TAB PO SCH (08:49)
[2016-08-12] MEDS: POLYETHYLENE GLYCOL 17 GM PKG PO SCH (08:51)
[2016-08-12] MEDS: INSULIN DETEMIR 100 UNITS/ML VIAL SQ SCH ×2 (08:52→21:48)
--- NOTE | 2016-08-12 21:15 | HHI.PR ---
Subjective Remarks Abdominal pain is much improved. Patient less tearful. Mood better. Objective Vitals Vital Signs Date Time Temp Pulse Resp B/P Pulse Ox O2 Delivery O2 Flow Rate FiO2 08/12/16 20:00 101.4 116 17 105/68 97 08/12/16 16:00 99.1 104 16 117/72 97 08/12/16 12:00 98.8 99 16 121/78 98 08/12/16 08:00 98.7 95 16 107/72 98 08/12/16 04:00 98.7 93 17 118/72 98 08/12/16 00:00 98.5 99 17 132/83 98 I/O 08/11/16 08/11/16 08/11/16 08/12/16 08/12/16 08/12/16 07:00 15:00 23:00 07:00 15:00 23:00 Intake Total 686 ml 660 ml 480 ml 240 ml 720 ml Balance 686 ml 660 ml 480 ml 240 ml 720 ml Intake Oral 480 ml 660 ml 480 ml 240 ml 720 ml IV Total 206 ml 0 ml 0 ml # Voids 2 3 3 3 5 # Bowel Movements 1 1 1 Result Diagram: 08/12/1640808/12/16408 Objective Remarks GENERAL: petite chronically ill CF patient. SKIN: Warm and dry. HEAD: Normocephalic. EYES: No scleral icterus. No injection or drainage. NECK: Supple, trachea midline. No JVD or lymphadenopathy. CARDIOVASCULAR: Regular rate and rhythm without murmurs, gallops, or rubs. RESPIRATORY: Breath sounds equal bilaterally. No accessory muscle use. GASTROINTESTINAL: Abdomen soft, tender to palpation throughout, left abdomen has biliary drain in place no erythema. EXTREMITIES: trace-1+pdema. NEUROLOGICAL: Awake, alert, and oriented x 3. Non-focal. Procedures Biliary drain placement. A/P Assessment and Plan 46-year-old female: S/P Septic shock- patient up and ambulating- clinically improved Klebsiella pneumonia bacteremia, cholangitis: now recent culture growing citrobacter - Antibiotics per infectious disease. 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 Per Pathologist liver biopsy not consistent with PSC, more suggestive of Cirrhosis. -GI ff. Status post ERCP 07/26/16> left hepatic tree stricture, continue antibiotic, S/P liver biopsy. - Patient being considered for transfer to [facility]. - - S/P biliary drain placement on 07/31/16 by IR - Regular diet as tolerated. Biliary drain is capped per GI since 08/04. - Continue to follow for improvement in liver enzymes and pain. LFts in a.m. - prn pain meds - LFTs trending down nicely - reconsulted GS- 08/07- recommended transfer to [place]- GI attempting/Dr. Israel -chronic constant abdominal pain - difficult to control, clock watching - patient agreeable to palliative care consult, but not interested in hospice, wants cure -apparently not a candidate for liver transfer Coagulopathy: corrected Likely secondary to liver disease. - Monitor CBC and coags. s/p transfusion 3 u FFP and Vitamin K 10mg IV x1 on 07/20 for INR 11 now INR 1.0 - INR good Hypokalemia: Replace and corrected DM type 2. improve po. continue Levemir 5 units bid. and increase gradually as po improve. continue SS GI prophylaxis: PPI. Stool softener PRN for constipation. DVT PPx: SCDs. Discharge Planning Per GI - attempt transfer to tertiary care center, but if not accepted and patient remain stable, may DC with OP f/u. Clinically she looks pretty good to me and if okay with GI I think she could be discharged, however she has questions regarding her biliary drain that will need to be answered by GI. Also palliative care consult is pending to see if pain management can be improved in the outpatient setting. Arin Hickey MD Aug 12, 2016 21:14
[2016-08-12] MEDS: ACETAMINOPHEN 650 MG/20.3 ML UDC PO PRN (21:44)
[2016-08-13] VITALS (7 sets, daily range): BP systolic 98–128; BP diastolic 62–82; PULSE 84–113; RESP 16–18; TEMP 96.7–98.4; O2SAT 97–99
[2016-08-13] MEDS: HYDROmorphone HCL PF 1 MG/ML VIAL IV PRN ×8 (00:49→22:08)
[2016-08-13] MEDS: CHLORHEXIDINE GLUCONATE 2 % 1 PACK (2 CLOTHS) TOP SCH ×2 (02:51→20:59)
[2016-08-13] MEDS: INSULIN NovoLIN REGULAR SUPPLEMENTAL SCALE SQ SCH ×4 (03:45→20:59)
[2016-08-13] MEDS: URSODIOL 300 MG CAP PO SCH ×2 (06:48→16:30)
[2016-08-13] MEDS: POLYETHYLENE GLYCOL 17 GM PKG PO SCH (09:00)
[2016-08-13] MEDS: PANTOPRAZOLE SOD 40 MG DELAYED RELEASE TAB PO SCH (09:17)
[2016-08-13] MEDS: LEVOFLOXACIN 750 MG TAB PO SCH (09:17)
[2016-08-13] MEDS: LIPASE/PROTEASE/AMYLASE (12,000/38,000/60,000) CAP PO SCH ×3 (09:17→16:30)
[2016-08-13] MEDS: INSULIN DETEMIR 100 UNITS/ML VIAL SQ SCH ×2 (09:18→20:58)
--- NOTE | 2016-08-13 11:44 | HHI.PR ---
Subjective Remarks Follow-up for acute cholangitis and bacteremia. Patient had fever last night 101.6. She stated that she feels awful but she is the same since hospitalization. Denying nausea or vomiting. No other issues. continue to have abdominal pain. Objective Vitals Vital Signs Date Time Temp Pulse Resp B/P Pulse Ox O2 Delivery O2 Flow Rate FiO2 08/13/16 08:00 96.7 86 16 110/74 98 08/13/16 04:00 97.1 84 17 114/70 98 08/13/16 00:00 97.7 113 17 114/71 97 08/12/16 20:00 101.4 116 17 105/68 97 08/12/16 19:01 110 08/12/16 16:00 99.1 104 16 117/72 97 08/12/16 12:00 98.8 99 16 121/78 98 I/O 08/12/16 08/12/16 08/12/16 08/13/16 08/13/16 08/13/16 07:00 15:00 23:00 07:00 15:00 23:00 Intake Total 240 ml 720 ml 480 ml 240 ml Balance 240 ml 720 ml 480 ml 240 ml Intake Oral 240 ml 720 ml 480 ml 240 ml IV Total 0 ml # Voids 3 5 3 3 # Bowel Movements 1 Result Diagram: 08/12/16 0409 08/12/16 0409 Objective Remarks GENERAL: in nad CARDIOVASCULAR: Regular rate and rhythm without murmurs, gallops, or rubs. RESPIRATORY: Breath sounds equal bilaterally. No accessory muscle use. GASTROINTESTINAL: Positive diffuse tenderness with palpation. Negative for any peritoneal signs. Drain in place. Wound is dry clean and intact. Procedures Biliary drain placement. Medications and IVs Current Medications Acetaminophen 650 mg 650 mg ONCE ONCE PO Last administered on 07/19/16 12:40; Start 07/19/16 at 11:45; Stop 07/19/16 at 11:46; Status DC Sodium Chloride 1,000 ml @ 1,000 mls/hr Q1H ONCE IV Last administered on 12:39; Start 07/19/16 at 11:41; Stop 07/19/16 at 12:40; Status DC Sodium Chloride (NS 1000 ml Inj) 800 ml @ 1,000 mls/hr Q48M ONCE IV Last administered on 07/19/16 12:40; Start 07/19/16 at 11:41; Stop 07/19/16 at 12:28; Status DC Hydromorphone HCl (Dilaudid Pf Inj) 1 mg ONCE ONCE IV PUSH Last administered on 07/19/16 12:39; Start 07/19/16 at 11:45; Stop 07/19/16 at 11:46; Status DC Ondansetron HCl 4 mg 4 mg ONCE ONCE IV PUSH Last administered on 07/19/16 12: 40; Start 07/19/16 at 11:45; Stop 07/19/16 at 11:46; Status DC Norepinephrine Bitartrate (Levophed-Dextrose Drip) 250 ml @ 0 mls/hr TITRATE IV Last administered on 07/20/16 06:38; Start 07/19/16 at 14:15; Stop 08/11/16 at 20:00; Status DC Terbutaline Sulfate 1 mg 1 mg UNSCH PRN SQ For Extravasation; Start 07/19/16 at 14:15; Stop 08/11/16 at 20:00; Status DC Sodium Chloride 1,000 ml @ 999 mls/hr Q1H1M IV Last administered on 07/19/16 14:26; Start 07/19/16 at 14:15; Stop 07/19/16 at 15:15; Status DC Piperacillin Sod/ Tazobactam Sod 50 ml @ 100 mls/hr ONCE ONCE IV Last administered on 07/19/16 14:25; Start 07/19/16 at 14:15; Stop 07/19/16 at 14:44; Status DC Vancomycin HCl/ Sodium Chloride (Vancomycin Inj/ NS 250 ml Inj) 258 ml @ 250 mls/hr ONCE ONCE IV ; Start 07/19/16 at 14:15; Stop 07/19/16 at 15:16; Status DC Norepinephrine Bitartrate (Levophed Inj) 4 mg STK-MED ONCE .ROUTE Last administered on 07/19/16 14:24; Start 07/19/16 at 14:14; Stop 07/19/16 at 14:15; Status DC Pantoprazole Sodium (Protonix Inj) 40 mg DAILY IV Last administered on 08:10; Start 07/19/16 at 15:15; Stop 08/10/16 at 21:00; Status DC Albuterol/ Ipratropium (Duoneb Neb) 1 ampule Q6HR NEB INH Last administered on 07/23/16 16:00; Start 07/19/16 at 16:00; Stop 07/23/16 at 16:00; Status DC Albuterol/ Ipratropium (Duoneb Neb) 1 ampule Q2HR NEB PRN INH WHEEZING; Start 07/19/16 at 15:15 Miscellaneous Information 1 Q361D XX Last administered on 07/21/16 07:37; Start 07/19/16 at 15:15 Chlorhexidine Gluconate (Chlorhexidine 2% Cloth) Taper DAILY@04 TOP Last administered on 08/01/16 20:41; Start 07/20/16 at 04:00; Stop 07/16/17 at 03:59 Chlorhexidine Gluconate 3 pack 3 pack UNSCH PRN TOP HYGIENIC CARE; Start at 15:15 Sodium Chloride (NS 1000 ml Inj) 1,000 ml @ 125 mls/hr Q8H IV Last administered on 07/20/16 20:29; Start 07/19/16 at 15:15; Stop 07/21/16 at 07:42; Status DC Dextrose (D50w (Vial) Inj) 25 ml UNSCH PRN IV PUSH HYPOGLYCEMIA-SEE COMMENTS; Start 07/19/16 at 15:15 Glucagon (Glucagon Inj) 1 mg UNSCH PRN OTHER HYPOGLYCEMIA-SEE COMMENTS; Start 07/19/16 at 15:15 Insulin Human Regular 1 1 Q6H SQ Last administered on 08/13/16 09:15; Start at 15:15 Vancomycin HCl 1000 mg/Sodium Chloride 250 ml @ 250 mls/hr Q12H IV Last administered on 07/20/16 08:57; Start 07/20/16 at 09:00; Stop 07/20/16 at 17:29; Status DC Piperacillin Sod/ Tazobactam Sod 100 ml @ 200 mls/hr Q6H IV Last administered on 07/24/16 13:57; Start 07/19/16 at 20:00; Stop 07/24/16 at 19:52; Status DC Sodium Chloride 1,000 ml @ 999 mls/hr BOLUS ONCE IV ; Start 07/19/16 at 16:00; Stop 07/19/16 at 17:00; Status DC Pharmacy Profile Note (Vancomycin Consult Pharmacy) ml @ 0 mls/hr UNSCH XX ; Start 07/19/16 at 16:15; Stop 07/20/16 at 17:29; Status DC Miscellaneous Information SPECIFIC LAB TO BE OTIS... ONCE ONCE XX ; Start at 20:45; Stop 07/21/16 at 20:45; Status DC Hydromorphone HCl (Dilaudid Pf Inj) 0.5 mg Q4H PRN IV Last administered on 07/24 07:10; Start 07/19/16 at 21:45; Stop 07/24/16 at 08:51; Status DC Acetaminophen 650 mg 650 mg Q6H PRN PO temp>101 Last administered on 08/12/16 21:44; Start 07/20/16 at 00:30 Potassium Chloride 100 ml @ 50 mls/hr Q2H PRN IV For Potassium 2.8 - 3.2 mEq/ L Last administered on 07/22/16 07:42; Start 07/20/16 at 04:45; Stop 07/28/16 at 07:29; Status DC Potassium Chloride (KCl 20 Meq Premix Inj) 100 ml @ 50 mls/hr Q2H PRN IV For Potassium 2.8 - 3.2 mEq/L; Start 07/20/16 at 04:45; Stop 07/28/16 at 07:29; Status DC Potassium Chloride 40 meq 40 meq UNSCH PRN PO/TUBE For Potassium 3.3 - 3.5 mEq/ L; Start 07/20/16 at 04:45; Stop 07/28/16 at 07:29; Status DC Potassium Chloride 100 ml @ 25 mls/hr UNSCH PRN IV For Potassium 3.3 - 3.5 mEq /L; Start 07/20/16 at 04:45; Stop 07/28/16 at 07:29; Status DC Potassium Chloride 100 ml @ 50 mls/hr Q2H PRN IV For Potassium 3.3 - 3.5 mEq/ L Last administered on 07/27/16 18:11; Start 07/20/16 at 04:45; Stop 07/28/16 at 07:29; Status DC Magnesium Sulfate/ Sodium Chloride (Magnesium Sulfate Inj/NS Inj) 100 ml @ 50 mls/hr UNSCH PRN IV For Magnesium 0.9 - 1.1 mg/dL; Start 07/20/16 at 04:45; Stop 07/28/16 at 07:29; Status DC Magnesium Oxide 800 mg 800 mg UNSCH PRN PO For Magnesium 1.2 - 1.6 mg/dL Last administered on 07/27/16 12:36; Start 07/20/16 at 04:45; Stop 07/28/16 at 07:29 ; Status DC Magnesium Sulfate/ Sodium Chloride (Magnesium Sulfate Inj/NS Inj) 100 ml @ 50 mls/hr UNSCH PRN IV For Magnesium 1.2 - 1.6 mg/dL Last administered on 21:26; Start 07/20/16 at 04:45; Stop 07/28/16 at 07:29; Status DC Potassium Phosphate 2000 mg 2,000 mg Q4H PRN PO For Phosphorus < 2.5 mg/dL Last administered on 07/20/16 08:36; Start 07/20/16 at 04:45; Stop 07/28/16 at 07 :29; Status DC Sodium Phosphate/ Sodium Chloride (Sodium Phosphate Inj/NS 250 ml Inj) 250 ml @ 42 mls/hr UNSCH PRN IV For Phosphorus < 2.5 mg/dL Last administered on 02:30; Start 07/20/16 at 04:45; Stop 07/28/16 at 07:29; Status DC Potassium Chloride (KCl 40 Meq/30 ml Liq) 40 meq UNSCH PRN PO/TUBE SEE LABEL COMMENTS; Start 07/20/16 at 04:45; Stop 07/28/16 at 07:29; Status DC Potassium Phosphate 2000 mg 2,000 mg UNSCH PRN PO/TUBE SEE LABEL COMMENTS Last administered on 07/27/16 16:56; Start 07/20/16 at 04:45; Stop 07/28/16 at 07:29 ; Status DC Potassium Phosphate 30 mmol/ Sodium Chloride 260 ml @ 42 mls/hr UNSCH PRN IV SEE LABEL COMMENTS Last administered on 07/24/16 11:28; Start 07/20/16 at 04:45; Stop 07/28/16 at 07:29; Status DC Sodium Chloride 1,000 ml @ 999 mls/hr BOLUS ONCE IV Last administered on 08:35; Start 07/20/16 at 08:00; Stop 07/20/16 at 09:00; Status DC Metronidazole 100 ml @ 100 mls/hr Q8H IV Last administered on 07/20/16 15:51; Start 07/20/16 at 09:00; Stop 07/20/16 at 17:29; Status DC Phytonadione/ Sodium Chloride (Vitamin K Inj/ NS Inj) 51 ml @ 102 mls/hr ONCE ONCE IV Last administered on 07/20/16 14:01; Start 07/20/16 at 14:00; Stop at 14:29; Status DC Phytonadione (Vitamin K Inj) 10 mg DAILY SQ Last administered on 07/22/16 07:35 ; Start 07/21/16 at 09:00; Stop 07/23/16 at 08:59; Status DC Albumin Human (Albumin 25% Inj) 25 gm Q8HR IV Last administered on 07/21/16 07: 22; Start 07/20/16 at 14:00; Stop 07/23/16 at 13:59; Status DC Iohexol (Omnipaque 350 Inj) 100 ml STK-MED ONCE IV ; Start 07/19/16 at 16:00; Stop 07/20/16 at 14:13; Status DC Bumetanide (Bumex Inj) 1 mg ONCE ONCE IV PUSH Last administered on 07/21/16 09 :00; Start 07/21/16 at 07:30; Stop 07/21/16 at 07:50; Status DC Alteplase, Recombinant (Cathflo Activase Inj) 2 mg ONCE ONCE INTRACATH Last administered on 07/21/16 09:00; Start 07/21/16 at 07:45; Stop 07/21/16 at 07:50; Status DC Ondansetron HCl (Zofran Inj) 4 mg Q8H PRN IV PUSH n/v Last administered on 08/09 09:08; Start 07/21/16 at 08:15 Hydromorphone HCl (Dilaudid Pf Inj) 0.5 mg NOW ONCE IV PUSH Last administered on 07/21/16 10:04; Start 07/21/16 at 09:30; Stop 07/21/16 at 09:31; Status DC Hydromorphone HCl (Dilaudid Pf Inj) 0.5 mg Q3H PRN IV pain 3-10 Last administered on 08/09/16 12:11; Start 07/24/16 at 11:45; Stop 08/09/16 at 14:08 ; Status DC Midazolam HCl 5 mg 5 mg STK-MED ONCE .ROUTE ; Start 07/24/16 at 18:34; Stop at 18:35; Status DC Sodium Chloride 250 ml @ As Directed STK-MED ONCE .ROUTE ; Start 07/24/16 at 18: 48; Stop 07/24/16 at 18:49; Status DC Ampicillin Sodium/ Sulbactam Sodium/ Sodium Chloride (Unasyn Inj/NS Inj) 100 ml @ 200 mls/hr Q6H IV Last administered on 08/01/16 14:29; Start 07/24/16 at 20: 00; Stop 08/01/16 at 15:00; Status DC Polyethylene Glycol (Miralax) 17 gm DAILY PO Last administered on 07/28/16 09: 23; Start 07/25/16 at 15:00 Sugammadex Sodium (Bridion Inj) 200 mg STK-MED ONCE IV PUSH ; Start 07/26/16 at 10:26; Stop 07/26/16 at 10:27; Status DC Hydromorphone HCl 1 mg 1 mg STK-MED ONCE .ROUTE Last administered on 07/26/16 10:47; Start 07/26/16 at 10:47; Stop 07/26/16 at 10:48; Status DC Potassium Chloride/Dextrose/ Sod Cl 1,000 ml @ 60 mls/hr [id number] IV Last administered on 07/27/16 11:03; Start 07/26/16 at 16:45; Stop 07/28/16 at 14:48 ; Status DC Potassium Chloride (KCl 20 Meq Premix Inj) 100 ml @ 50 mls/hr ONCE ONCE IV Last administered on 07/26/16 16:53; Start 07/26/16 at 16:45; Stop 07/27/16 at 09 :55; Status DC Iohexol 100 ml 100 ml STK-MED ONCE OTHER Last administered on 07/26/16 10:00; Start 07/26/16 at 10:00; Stop 07/26/16 at 16:58; Status DC Magnesium Sulfate/ Dextrose (Magnesium Sulfate 1 Gm Premix) 100 ml @ 100 mls/ hr Q1H IV ; Start 07/27/16 at 10:00; Stop 07/27/16 at 10:00; Status DC Potassium Phos/ Sodium Phos (K-Phos Neutral) 250 mg Q8HR PO ; Start 07/27/16 at 09:30; Stop 07/27/16 at 09:56; Status DC Propofol (Diprivan 200 Mg/20 ml Inj) 200 mg STK-MED ONCE IV ; Start 07/26/16 at 10:17; Stop 07/27/16 at 10:48; Status DC Lidocaine/ Epinephrine (Xylocaine-Epi 1%-1:100,000 Inj) 20 ml STK-MED ONCE .ROUTE ; Start 07/27/16 at 14:53; Stop 07/27/16 at 14:54; Status DC Midazolam HCl (Versed Inj) 5 mg STK-MED ONCE .ROUTE Last administered on 14:57; Start 07/27/16 at 14:57; Stop 07/27/16 at 14:58; Status DC Fentanyl Citrate (fentaNYL INJ) 250 mcg STK-MED ONCE .ROUTE ; Start 07/27/16 at 14:57; Stop 07/27/16 at 14:58; Status DC Hydromorphone HCl (Dilaudid Pf Inj) 2 mg STK-MED ONCE .ROUTE Last administered on 07/27/16 15:40; Start 07/27/16 at 15:40; Stop 07/27/16 at 15:41; Status DC Sodium Polystyrene Sulfonate (Kayexalate Liq) 15 gm ONCE ONCE PO Last administered on 07/28/16 15:43; Start 07/28/16 at 15:00; Stop 07/28/16 at 15:01 ; Status DC Potassium Chloride (KCl) 60 meq ONCE ONCE PO Last administered on 07/31/16 05 :17; Start 07/31/16 at 05:00; Stop 07/31/16 at 05:01; Status DC Sodium Chloride (NS Inj) 10 ml DAILY IRRIGATION Last administered on 08/03/16 07:52; Start 08/01/16 at 09:00; Stop 08/04/16 at 08:59; Status DC Iohexol (Omnipaque 350 Inj) 25 ml STK-MED ONCE .XX Last administered on 13:30; Start 07/31/16 at 14:08; Stop 07/31/16 at 14:09; Status DC Midazolam HCl (Versed Inj) 2 mg STK-MED ONCE .ROUTE ; Start 07/31/16 at 14:14; Stop 07/31/16 at 14:15; Status DC Fentanyl Citrate (fentaNYL INJ) 100 mcg STK-MED ONCE .ROUTE ; Start 07/31/16 at 14:14; Stop 07/31/16 at 14:15; Status DC Hydromorphone HCl (*DILAUDID PF INJ PERIprocedural ONLY) 1 mg STK-MED ONCE .ROUTE Last administered on 07/31/16 14:33; Start 07/31/16 at 14:33; Stop at 14:34; Status DC Miscellaneous Information ALL NURSING DEPARTME... UNSCH PRN XX SEE LABEL COMMENTS; Start 07/31/16 at 14:06; Stop 08/01/16 at 14:05; Status DC Sodium Chloride (NS 1000 ml Inj) 1,000 ml @ 999 mls/hr Q1H1M ONCE IV Last administered on 07/31/16 19:17; Start 07/31/16 at 19:15; Stop 07/31/16 at 20:15 ; Status DC Acetaminophen (Tylenol) 650 mg ONCE ONCE PO Last administered on 07/31/16 19: 15; Start 07/31/16 at 19:15; Stop 07/31/16 at 19:16; Status DC Potassium Chloride 30 meq 30 meq ONCE ONCE PO Last administered on 08/01/16 14:29; Start 08/01/16 at 15:00; Stop 08/01/16 at 15:01; Status DC Piperacillin Sod/ Tazobactam Sod 50 ml @ 100 mls/hr Q6H IV Last administered on 08/08/16 08:53; Start 08/01/16 at 20:00; Stop 08/08/16 at 13:48; Status DC Pharmacy Profile Note 0 ml @ 0 mls/hr UNSCH IV ; Start 08/01/16 at 15:00; Stop 08/03/16 at 12:26; Status DC Micafungin Sodium 150 mg/Sodium Chloride 100 ml @ 100 mls/hr Q24H IV Last administered on 08/03/16 15:00; Start 08/01/16 at 16:00; Stop 08/03/16 at 19:34 ; Status DC Vancomycin HCl/ Sodium Chloride (Vancomycin Inj/ NS 250 ml Inj) 250 ml @ 250 mls/hr Q12H IV Last administered on 08/03/16 06:47; Start 08/01/16 at 18:00; Stop 08/03/16 at 12:26; Status DC Miscellaneous Information SPECIFIC LAB TO BE DRAWN:VANCOMYCIN TROUGH DATE TO... ONCE ONCE XX Last administered on 08/03/16 05:45; Start 08/03/16 at 05:45; Stop 08/03/16 at 05:46; Status DC Sodium Chloride 500 ml @ 0 mls/hr NOW ONCE IV ; Start 08/01/16 at 16:30; Stop 08/01/16 at 16:31; Status DC Sodium Chloride 1,000 ml @ 999 mls/hr BOLUS STAT IV Last administered on 08/01 16:34; Start 08/01/16 at 16:23; Stop 08/01/16 at 17:23; Status DC Sodium Chloride (NS 1000 ml Inj) 1,000 ml @ 30 mls/hr Q24H IV Last administered on 08/10/16 12:16; Start 08/01/16 at 16:30; Stop 08/11/16 at 20:00 ; Status DC Diatrizoate Meglum/ Diatrizoate Sod ( Gastroview Liq) 18 ml ONCE ONCE PO Last administered on 08/02/16 06:25; Start 08/01/16 at 20:47; Stop 08/01/16 at 21:18; Status DC Propofol (Diprivan 200 Mg/20 ml Inj) 20 mg STK-MED ONCE IV ; Start 07/31/16 at 07:28; Stop 08/02/16 at 07:28; Status DC Ondansetron HCl (Zofran Inj) 4 mg STK-MED ONCE IV PUSH ; Start 07/31/16 at 07:28 ; Stop 08/02/16 at 07:28; Status DC Potassium Chloride (KCl) 30 meq ONCE ONCE PO Last administered on 08/02/16 14 :37; Start 08/02/16 at 14:15; Stop 08/02/16 at 14:17; Status DC Potassium Chloride (KCl) 60 meq ONCE ONCE PO Last administered on 08/03/16 06 :47; Start 08/03/16 at 06:15; Stop 08/03/16 at 06:16; Status DC Ursodiol (Actigall) 300 mg Q12HR PO Last administered on 08/09/16 07:45; Start 08/03/16 at 10:30; Stop 08/09/16 at 17:55; Status DC Miscellaneous Information SPECIFIC LAB TO BE OTIS... ONCE ONCE XX ; Start at 17:45; Stop 08/03/16 at 17:45; Status DC Magnesium Sulfate/ Dextrose (Magnesium Sulfate 1 Gm Premix) 100 ml @ 100 mls/ hr ONCE ONCE IV Last administered on 08/04/16 12:40; Start 08/04/16 at 11:00 ; Stop 08/04/16 at 11:59; Status DC Potassium Chloride 40 meq 40 meq ONCE ONCE PO Last administered on 08/04/16 12:40; Start 08/04/16 at 10:45; Stop 08/04/16 at 10:46; Status DC Potassium Chloride (KCl 20 Meq Premix Inj) 100 ml @ 50 mls/hr Q2H IV ; Start at 12:00; Stop 08/04/16 at 15:59; Status DC Iohexol (Omnipaque 350 Inj) 95 ml STK-MED ONCE IV Last administered on 10:43; Start 08/02/16 at 10:43; Stop 08/06/16 at 13:58; Status DC Insulin Detemir 5 units 5 units Q12HR SQ Last administered on 08/13/16 09:18; Start 08/07/16 at 10:00 Potassium Chloride (KCl 10 Meq Premix Inj) 100 ml @ 100 mls/hr Q1H IV Last administered on 08/08/16 04:35; Start 08/07/16 at 22:15; Stop 08/08/16 at 01:14 ; Status DC Levofloxacin (Levaquin) 750 mg DAILY PO Last administered on 08/13/16 09:17; Start 08/08/16 at 14:00; Stop 08/13/16 at 13:59 Hydromorphone HCl (Dilaudid Pf Inj) 0.25 mg Q3H PRN IV pain 3-10 Last administered on 08/11/16 17:55; Start 08/09/16 at 15:10; Stop 08/11/16 at 20:01 ; Status DC Ursodiol (Actigall) 300 mg BIDAC PO Last administered on 08/13/16 06:48; Start 08/10/16 at 07:00 Amylase/Lipase/ Protease (Creon 12-38-60) 1 cap TIDAC PO Last administered on 09:17; Start 08/10/16 at 08:00 Pantoprazole Sodium (Protonix) 40 mg DAILY PO Last administered on 08/13/16 09 :17; Start 08/11/16 at 09:00 Hydromorphone HCl (Dilaudid Pf Inj) 0.5 mg Q3H PRN IV pain 3-10 IF NPO Last administered on 08/13/16 09:31; Start 08/11/16 at 21:10 A/P Assessment and Plan 46-year-old female: Fever -Will get 2 sets of blood cultures, UA and chest x-ray. Patient has no leukocytosis. -Patient currently on Levaquin. We'll continue to monitor. S/P Septic shock Klebsiella pneumonia bacteremia, cholangitis: now recent culture growing citrobacter - Antibiotics per infectious disease. 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 Per Pathologist liver biopsy not consistent with PSC, more suggestive of Cirrhosis. -GI ff. Status post ERCP 07/26/16> left hepatic tree stricture, continue antibiotic, S/P liver biopsy. - Patient being considered for transfer to [facility]. - - S/P biliary drain placement on 07/31/16 by IR - Regular diet as tolerated. Biliary drain is capped per GI since 08/04. - Continue to follow for improvement in liver enzymes and pain. - prn pain meds - LFTs trending down nicely - Palliative care consulted. Unable to transfer patient. Once medically stable condition discharge to home. Coagulopathy: corrected Likely secondary to liver disease. - Monitor CBC and coags. s/p transfusion 3 u FFP and Vitamin K 10mg IV x1 on 07/20 for INR 11 now INR 1.0 - INR good Hypokalemia: Replace and corrected DM type 2. improve po. continue Levemir 5 units bid. and increase gradually as po improve. continue SS GI prophylaxis: PPI. Stool softener PRN for constipation. Discharge Planning Patient spiked a fever last night. When he obtained 2 more blood cultures. She needs to be afebrile for 48 hours. Once medically stable patient can be discharged to home. Poor prognosis. Palliative care following. Jayshree Whitehead MD Aug 13, 2016 11:44
--- NOTE | 2016-08-13 13:21 | RADRPT ---
EXAM DATE/TIME: 08/13/2016 12:12 [facility] COMPARISON: CHEST PA & LAT, April 26, 2016, 17:06. INDICATIONS : Fever MEDICAL HISTORY : Ulcers. Lymphoma. Kidney stones. Diabetes. SURGICAL HISTORY : Splenectomy. ENCOUNTER: Initial ACUITY: 2 weeks PAIN SCORE: 0/10 LOCATION: Bilateral chest FINDINGS: There are minimal consolidative changes in the left base with small left pleural effusion. Right ava g is clear. Heart is minimally enlarged, pulmonary vascularity is normal. CONCLUSION: Small left pleural effusion with minimal consolidative changes left base. Effusion has increased sli ghtly from 04/26/2016. You Morales MD FACR on August 13, 2016 at 12:55 Board Certified Radiologist. This report was verified electronically.
--- NOTE | 2016-08-13 14:39 | PD.CONS ---
Consult Service Palliative Care Consult Requested By Dr. Hickey . Primary Care Physician Gilmar Matos DO . Reason for Consultation a. To assist with evaluation and management of symptoms including: pain b. To assist medical decision maker(s) with: better understanding of current medical conditions; weighing benefits/burdens of medical treatment options; making medical treatment decisions. . HPI History of Present Illness This 46-year-old female was admitted on 07/19/16 with fever, abdominal pain, nausea, vomiting. The patient has had numerous hospitalizations at this facility, as well as at other [facility] facilities over the past 13 years. She was diagnosed with non-Hodgkin's lymphoma in 2004, and underwent chemotherapy that concluded in 2005. She says she has had no recurrence of the lymphoma since then, but has had other complications. She reports that complications with biliary and liver disease have become progressively worse over the past few years, and she has been hospitalized numerous times for recurrent cholangitis, sepsis, and pain. Biopsies of liver have revealed fibrosis, chronic hepatitis, cirrhosis. She has had repetitive, recurrent, persistent biliary strictures, and has undergone numerous stenting procedures and attempts , and currently has a transcutaneous drain. When the patient presented to the emergency department on 07/19/16, findings included: * Moderate pain * White count 16.4, hemoglobin 12.8 * Lactic acid 3.1, albumin 2 * Bilirubin 3.2, AST 151, ALT 136, alkaline phosphatase 1086 * CT abdomen/pelvis consistent with cirrhotic liver, contracted gallbladder Blood cultures at the time of admission eventually grew Klebsiella pneumoniae. The patient was admitted, and her abdominal pain was managed with parenteral opiates. Her pain is fairly constant, across the abdomen but worse on the right half, radiates to the right flank and right back, is worse with touch or movement, and is improved temporarily by the IV hydromorphone that she is receiving now. Over the last several days, she received 0.5 mg doses of parenteral hydromorphone 5 or 6 or 7 times per day (a total hydromorphone dose of 2.5 to 3.5 mg per 24 hours). She reports that that schedule does control her pain in a fashion that she feels is adequate. When she was at home, the patient has been on and off of hydrocodone/acetaminophen for pain, and at times was on oxycodone. She reports that she stopped taking the Lortab because of its Tylenol content, and that the oxycodone "would only work for a short time." She was tried on a fentanyl transdermal patch, but said it caused nausea within an hour or 2 of application and it subsided when the patch was removed. She does not believe she has ever been on morphine. Fever recurred yesterday, up to 101.4, but she is afebrile today. The patient' s blood grew Klebsiella from cultures on 07/19/16, and then grew Citrobacter from 08/01/16. Palliative Care was consulted to address the patient's chronic pain issues, particularly with the possibility of her returning home in the near future. There is still some attempt at finding a tertiary center to which she could be transferred, but it does not appear that that effort has been successful up to this time. . Function/Cognitive Trajectory The patient lives with her roommate Doug, but she reports that she is fairly independent at home. . Review of Systems Constitutional: COMPLAINS OF: Fever, Weight loss Endocrine: DENIES: Polyuria Eyes: DENIES: Eye inflammation Ears, nose, mouth, throat: DENIES: Epistaxis Respiratory: DENIES: Cough, Shortness of breath Cardiovascular: DENIES: Chest pain, Syncope Gastrointestinal: COMPLAINS OF: Abdominal pain, Diarrhea, Nausea, Vomiting Genitourinary: DENIES: Hematuria Musculoskeletal: DENIES: Back pain (lower back) Integumentary: DENIES: Rash Hematologic/Lymphatics: DENIES: Bruising Immunologic/Allergic: DENIES: Urticaria Neurologic: DENIES: Localized weakness, Seizures Psychiatric: COMPLAINS OF: Depression, DENIES: Hallucinations, Agitation Past Family Social History Coded Allergies: Gadolinium Derivatives (Verified Allergy, Severe, BREATHING PROBLEMS, N/V, CHILLS, 07/19/16) MRI PRECAUTION (Verified Allergy, Severe, NAUSEA; PER PATIENT IT IS A GADOLINIUM ALLERGY KMD 11/25/12, 07/19/16) Morphine (Verified Allergy, Severe, BREATHING PROBLEMS, 07/19/16) Toradol (Verified Allergy, Severe, Shortness of Breath, 07/19/16) *MDRO Multi-Drug Resistant Organism (Verified Adverse Reaction, Unknown, MRSA, 07/20/16) MRSA (abdomen) - 03/2013, 04/2014 MRSA PCR (nares) POSITIVE - 07/19/16 Past Medical History * Abdominal pain, acute and chronic * Biliary strictures/obstruction, with sclerosing cholangitis * Recurrent sepsis/cholangitis, with Klebsiella and Citrobacter bacteremias during this hospitalization * Non-Hodgkin's lymphoma 2004, no known residual disease * Hepatic cirrhosis/fibrosis/chronic hepatitis * Chronic anemia * Diabetes * Nephrolithiasis . Past Surgical History * Multiple ERCP with stent placement * Splenectomy 2004 * Biliary drain * Liver biopsy * lithotripsy . Reported Medications She had been on oxycodone at home . Current Medications Medications (Trade) Dose Ordered Sig/Celso Route Start Time Stop Time Status Last Admin Miscellaneous Information 1 Q361D XX 07/19/16 15:15 07/21/16 07:37 (Chlorhexidine 2% Cloth) Taper DAILY@04 TOP 07/20/16 04:00 07/16/17 03:59 08/01/16 20:41 (Chlorhexidine 2% Cloth) 3 pack UNSCH PRN TOP 07/19/16 15:15 (D50w (Vial) Inj) 25 ml UNSCH PRN IV PUSH 07/19/16 15:15 (Glucagon Inj) 1 mg UNSCH PRN OTHER 07/19/16 15:15 (NovoLIN R SUPPLEMENTAL SCALE) 1 Q6H SQ 07/19/16 15:15 08/13/16 09:15 (Tylenol 650 Mg/ 20 ml Liq) 650 mg Q6H PRN PO 07/20/16 00:30 08/12/16 21:44 (Zofran Inj) 4 mg Q8H PRN IV PUSH 07/21/16 08:15 08/09/16 09:08 (Miralax) 17 gm DAILY PO 07/25/16 15:00 07/28/16 09:23 (Levemir Inj) 5 units Q12HR SQ 08/07/16 10:00 08/13/16 09:18 (Actigall) 300 mg BIDAC PO 08/10/16 07:00 08/13/16 06:48 (Creon 12-38-60) 1 cap TIDAC PO 08/10/16 08:00 08/13/16 12:42 (Protonix) 40 mg DAILY PO 08/11/16 09:00 08/13/16 09:17 (Dilaudid Pf Inj) 0.5 mg Q3H PRN IV 08/11/16 21:10 08/13/16 12:43 Family History The patient's father is living. The patient's mother of an IN while in her 70s. There is no family history of chronic liver disease. . Substance Use Tobacco: None. Alcohol: None. Prescription med abuse: None. Illicits: None. . Psychosocial History The patient was born in [place], [place], but moved to [place] in 1984. She was once, but several years ago. She lives with a roommate, Doug German. The patient has 2 daughters, 22-year-old Aisha Peterson, and a 16-year-old. The patient worked as a banking center manager, as a paraprofessional aide teacher, and in the local [employer]. She is currently receiving disability payments because of her chronic illness. . Spiritual/Cultural Factors The patient has a Alevism background, she does not want visits from a carton stapler. . Living Will: Never completed Health Care Surrogate: Never completed Durable Power of Bottom Liquor Attendant: Never completed Today's verbally stated goals: The patient wants to continue aggressive care, and would want full resuscitation should the need arise. . Ethical and Legal Issues There are no ethical issues that would impact her care or decision-making at this time. The patient has capacity for decision-making. At the time of the initial consultation, she tells me that she would want to designate her daughter Aisha Peterson and her roommate/friend marry German has [id number] (co- healthcare surrogates) at this time. . Physical Exam Vital Signs Date Time Temp Pulse Resp B/P Pulse Ox O2 Delivery O2 Flow Rate FiO2 08/13/16 12:00 97.2 88 16 98/62 98 08/13/16 08:00 96.7 86 16 110/74 98 08/13/16 04:00 97.1 84 17 114/70 98 08/13/16 00:00 97.7 113 17 114/71 97 08/12/16 20:00 101.4 116 17 105/68 97 08/12/16 19:01 110 08/12/16 16:00 99.1 104 16 117/72 97 08/12/16 08/13/16 19:00 07:00 Intake Total 720 ml 720 ml Balance 720 ml 720 ml Intake Oral 720 ml 720 ml IV Total 0 ml # Voids 5 6 # Bowel Movements 1 Exam CONSTITUTIONAL/GENERAL: This is a chronically ill-appearing patient, in some pain when moving in the bed. Tearful at times. TUBES/LINES/DRAINS: Peripheral IV, transcutaneous biliary drain SKIN: No jaundice, rashes, or lesions. Ecchymoses on upper extremities. No wounds seen anteriorly. Skin temperature appropriate. Not diaphoretic. HEAD: Atraumatic. Normocephalic. EYES: Pupils equal and round and reactive. Extraocular motions intact. No scleral icterus. No injection or drainage. Fundi not examined. ENT: Hearing grossly normal. Nose without bleeding or purulent drainage. Throat without visible erythema, exudates, masses, or lesions. NECK: Trachea midline. Supple, nontender. No palpable thyroid enlargement or nodularity. CARDIOVASCULAR: Regular rate and rhythm without murmurs, gallops, or rubs. No JVD. Peripheral pulses symmetric. RESPIRATORY/CHEST: Symmetric, unlabored respirations. Clear to auscultation. Breath sounds equal bilaterally. No wheezes, rales, or rhonchi. GASTROINTESTINAL: Abdomen soft, and nondistended. Moderate tenderness diffusely , right side worse than left; no guarding or rebound. Some right flank tenderness. Bowel sounds present. GENITOURINARY: Without palpable bladder distension. MUSCULOSKELETAL: Extremities without clubbing, cyanosis, or edema. No joint tenderness or effusion noted. No calf tenderness. No mottling or clubbing. LYMPHATICS: No palpable cervical or supraclavicular adenopathy. NEUROLOGICAL: Awake and alert. Motor and sensory grossly within normal limits. Follows commands. Cognitively sharp. Moves all extremities. PSYCHIATRIC: Appears depressed at times. . Diagnostic Tests Laboratory Laboratory Tests Test 08/12/16 04:09 White Blood Count 10.5 TH/MM3 (4.0-11.0) Red Blood Count 3.43 MIL/MM3 (4.00-5.30) Hemoglobin 9.8 GM/DL (11.6-15.3) Hematocrit 29.1 % (35.0-46.0) Mean Corpuscular Volume 85.0 FL (80.0-100.0) Mean Corpuscular Hemoglobin 28.5 PG (27.0-34.0) Mean Corpuscular Hemoglobin 33.6 % Concent (32.0-36.0) Red Cell Distribution Width 20.9 % (11.6-17.2) Platelet Count 462 TH/MM3 (150-450) Mean Platelet Volume 10.2 FL (7.0-11.0) Neutrophils (%) (Auto) % (16.0-70.0) Lymphocytes (%) (Auto) % (9.0-44.0) Monocytes (%) (Auto) % (0.0-8.0) Eosinophils (%) (Auto) % (0.0-4.0) Basophils (%) (Auto) % (0.0-2.0) Neutrophils # (Auto) TH/MM3 (1.8-7.7) Lymphocytes # (Auto) TH/MM3 (1.0-4.8) Monocytes # (Auto) TH/MM3 (0-0.9) Eosinophils # (Auto) TH/MM3 (0-0.4) Basophils # (Auto) TH/MM3 (0-0.2) CBC Comment AUTO DIFF Differential Total Cells 100 Counted Neutrophils % (Manual) 85 % (16-70) Band Neutrophils % 1 % (0-6) Lymphocytes % 5 % (9-44) Monocytes % 5 % (0-8) Eosinophils % 3 % (0-4) Neutrophils # (Manual) 9.1 TH/MM3 (1.8-7.7) Metamyelocytes 1 % (0-1) Differential Comment FINAL DIFF MANUAL Platelet Estimate HIGH (NORMAL) Platelet Morphology Comment NORMAL (NORMAL) Target Cells 1+ (NORMAL) Ovalocytes 1+ (NORMAL) Sodium Level 139 MEQ/L (136-145) Potassium Level 3.6 MEQ/L (3.5-5.1) Chloride Level 105 MEQ/L (98-107) Carbon Dioxide Level 26.8 MEQ/L (21.0-32.0) Anion Gap 7 MEQ/L (5-15) Blood Urea Nitrogen 8 MG/DL (7-18) Creatinine 0.18 MG/DL (0.50-1.00) Estimat Glomerular Filtration 432 ML/MIN Rate (>89) Random Glucose 144 MG/DL (74-106) Calcium Level 8.7 MG/DL (8.5-10.1) Total Bilirubin 2.2 MG/DL (0.2-1.0) Aspartate Amino Transf 98 U/L (15-37) (AST/SGOT) Alanine Aminotransferase 50 U/L (10-53) (ALT/SGPT) Alkaline Phosphatase 1008 U/L (45-117) Total Protein 5.9 GM/DL (6.4-8.2) Albumin 2.1 GM/DL (3.4-5.0) Result Diagram: 08/12/16 0409 08/12/16 0409 Microbiology Microbiology Date/Time Procedure Status Source Growth 08/13/16 11:05 Aerobic Blood Culture Received Blood Peripheral Pending 08/13/16 11:05 Anaerobic Blood Culture Received Blood Peripheral Pending 08/13/16 11:12 Aerobic Blood Culture Received Blood Peripheral Pending 08/13/16 11:12 Anaerobic Blood Culture Received Blood Peripheral Pending Imaging Last Impressions Abdomen/Pelvis CT 08/02/16 0000 Signed Impressions: Service Date/Time: July 10:43 - CONCLUSION: 1. Cirrhotic liver. 2. Biliary drain in place from the left lobe. There is pneumobilia seen. 3. Non-obstructing 8 mm left renal stone. 4. Status post splenectomy. 5. Mild ascites in the pericolic regions and in the pelvis. 6. Dilatation of the pancreatic duct and the pancreatic body. The pancreatic head is unremarkable. 7. Mild left pleural effusion. There is areas of atelectasis or consolidation at the lung bases bilaterally. Mele Cuba MD Bile Duct Drainage 07/31/16 0000 Signed Impressions: Service Date/Time: Sunday, July 31, 2016 13:05 - CONCLUSION: Uncomplicated biliary stent placement as above. 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 Adeel Esteban MD Cholangiopancreatography MRI 07/30/16 0000 Signed Impressions: Service Date/Time: Saturday, July 30, 2016 13:21 - CONCLUSION: 1. Dilatation of the left intrahepatic biliary ducts with multiple filling defects likely related to air. There does appear to be narrowing of the central biliary ducts. The common bile duct is not clearly recognizable. The configuration at the left ducts appears similar to the prior examination. 2. Very prominent hypertrophy of the left lobe and atrophy of the right lobe likely secondary to cirrhosis. The liver does appear enlarged. Mele Cuba MD Liver Biopsy CT 07/27/16 0000 Signed Impressions: Service Date/Time: Wednesday, July 27, 2016 15:47 - CONCLUSION: Uncomplicated CT guided biopsy of the liver. Mele Yoo MD GI Procedure 07/26/16 0000 Signed Impressions: Service Date/Time: July 10:22 - CONCLUSION: ERCP as above. Feng Rod MD Chest X-Ray 07/19/16 1141 Signed Impressions: Service Date/Time: July 12:25 - CONCLUSION: 1. No acute cardiopulmonary findings. Farzad Morales MD Head CT 07/19/16 0000 Signed Impressions: Service Date/Time: , July 19, 2016 16:01 - CONCLUSION: 1. No evidence of acute intracranial pathology. No masses are identified. Nestor Isabel MD Procedures ERCP MRCP Biliary drain . Patient/Family Conference Present at Family Conference: The patient . Family Conference Time (mins): 76 Family Conference Location: Bedside Issues Discussed: * Palliative care role, purpose, approach * Additional medical, psychosocial, and spiritual history * Patients general health, functional status, and cognitive changes in the months leading up to the current hospitalization * Patient/family understanding of the current medical problems * Patient/family understanding of prognosis * Patients goals of care as best understood from advance directives and/or conversations and/or values * Current medical treatment options and benefits/burdens of those options * Likely scenarios comparing ongoing aggressive care with a transition to comfort measures only * Questions answered to the best of my ability * Palliative care contact information provided . Assessment and Plan Disease Oriented Problem List: (1) abdominal pain, acute and chronic (2) recurrent sepsis/cholangitis, with Klebsiella and Citrobacter bacteremias during this hospitalization (3) biliary strictures/obstruction, with sclerosing cholangitis (4) hepatic cirrhosis/fibrosis/chronic hepatitis (5) nephrolithiasis (6) non-Hodgkin's lymphoma 2004, no known residual disease (7) chronic anemia Symptom Scale: (1) pain 0-10 Scale: 4 (2) depression 0-10 Scale: Unable to quantify Pertinent Non-Medical Issues Psychosocial: , disabled, 2 daughters (22 years and 16 years old), lives with friend Doug German. Spiritual: Alevism but once no carton stapler visits Legal: The patient has capacity for decision-making. At the time of the initial consultation, she tells me that she would want to designate her daughter Aisha Peterson and her roommate/friend Doug German as co-decision- makers (co-healthcare surrogates) at this time. Ethical issues impacting care: None. . Prognosis The patient has chronic illness, including diabetes, chronic anemia, chronic pain, and gradually worsening hepatic cirrhosis and sclerosing cholangitis. She also has had recurrent sepsis episodes. With continued aggressive care, it is likely that she can live for some period of months or years. . Code Status: Full Code Plan * FULL CODE * DECISION-MAKING: The patient has capacity for decision-making. At the time of the initial consultation, she tells me that she would want to designate her daughter Aisha Peterson and her roommate/friend Doug German as co-decision- makers (co-healthcare surrogates) at this time. * GOALS: The patient wants to continue aggressive care; she would like her pain better managed when she eventually leaves the hospital. * SYMPTOMS: The patient's abdominal pain is acute and chronic. Prior trials of oxycodone and Lortab/hydrocodone at home have failed to manage her pain. A trial of transdermal fentanyl resulted in intolerable nausea. I discussed with her the advantages of being on a long-acting medication for pain, and she is willing to try that but not until she is back home. She does not want to consider a different pain medication regimen than what she is currently on as long as she is in the hospital, i.e., she wants to continue the PRN hydromorphone 0.5 mg IV dosing. === When it is time for her to go home, one pain medication regimen that could be considered would be long-acting morphine 30 mg PO q12h, and short acting morphine 15 mg q4h PRN for breakthrough pain. * Palliative Care will continue to check on the patient intermittently while she is hospitalized here. . Time Spent Total Floor Time (mins): 81 Face to Face Time (mins): 77 >50% Counseling/Coord of Care: Yes Thank you for the opportunity to participate in the care of Ms. Peterson. Attestation To help prompt me to consider important information that might be impacting today's encounter and assessment, information from prior notes written by myself or my colleagues may have been "brought forward" into today's note. My signature on this note, however, is an attestation that I personally performed the exam, history, and/or decision-making noted today, and, unless otherwise indicated, the interactions with patient, family, and staff as well as the review of records all occurred today. I also attest that the listed assessment and stated plan reflect my best clinical judgment today based on the combination of historical information, prior notes, and today's exam/ interactions. When time spent is documented, it refers only to time spent today by the signer, or if indicated, combined time spent today by collaborating physician/nurse practitioner. Denise Hewitt MD Aug 13, 2016 14:39
[2016-08-13 15:57] LABS: BLOOD, URINE NEG (NEG); CALCIUM OXALATE CRYSTALS,URINE MOD /hpf; GLUCOSE,URINE 70 mg/dL (NEG); KETONE, URINE NEG (NEG); MUCUS URINE FEW /lpf (OCC); NITRITE,URINE NEG (NEG); PH, URINE 6.5 (5.0-8.5); SQUAMOUS EPITHELIAL CELL URINE <1 /hpf (0-5); URINE COLOR YELLOW (YELLW/STRAW)
[2016-08-13 16:00] LABS: COMMENT (UR) CULT NOT INDICATED; CULTURE IF INDICATED CULT NOT INDICATED
[2016-08-14] VITALS: BP 109/71; PULSE 104; RESP 18; TEMP 99.4; O2SAT 99
[2016-08-14] MEDS: HYDROmorphone HCL PF 1 MG/ML VIAL IV PRN ×8 (01:40→23:55)
[2016-08-14] MEDS: INSULIN NovoLIN REGULAR SUPPLEMENTAL SCALE SQ SCH ×4 (04:05→20:04)
[2016-08-14 05:13] LABS: HEMATOCRIT 32.8 % (35.0-46.0); MEAN CELL VOLUME 85.1 FL (80.0-100.0); MEAN CORPUSCULAR HEMOGLOBIN 28.3 PG (27.0-34.0); MEAN CORPUSCULAR HGB CONC 33.2 % (32.0-36.0); PLATELET COUNT 471 TH/MM3 (150-450); RED BLOOD COUNT 3.85 MIL/MM3 (4.00-5.30); RED CELL DISTRIBUTION WIDTH 20.9 % (11.6-17.2); WHITE BLOOD COUNT 9.9 TH/MM3 (4.0-11.0)
[2016-08-14] MEDS: URSODIOL 300 MG CAP PO SCH ×2 (05:13→15:20)
[2016-08-14 05:24] LABS: REVIEW FLAG FINAL
[2016-08-14 05:39] LABS: BICARBONATE 27.9 MEQ/L (21.0-32.0); POTASSIUM 3.6 MEQ/L (3.5-5.1)
[2016-08-14 05:53] LABS: INDIRECT BILIRUBIN 0.8 MG/DL (0.0-0.8); TOTAL BILIRUBIN ADULT 2.9 MG/DL (0.2-1.0)
[2016-08-14 08:00] VITALS: BP 111/65; PULSE 95; RESP 17; TEMP 97.3; O2SAT 98
[2016-08-14] MEDS: LIPASE/PROTEASE/AMYLASE (12,000/38,000/60,000) CAP PO SCH ×3 (08:28→17:20)
[2016-08-14] MEDS: PANTOPRAZOLE SOD 40 MG DELAYED RELEASE TAB PO SCH (08:28)
[2016-08-14] MEDS: INSULIN DETEMIR 100 UNITS/ML VIAL SQ SCH ×2 (08:32→20:04)
[2016-08-14] MEDS: POLYETHYLENE GLYCOL 17 GM PKG PO SCH (08:34)
[2016-08-14] MEDS: ONDANSETRON HCL 4 MG/2 ML VIAL IV PUSH PRN (08:43)
[2016-08-14 12:00] VITALS: BP 112/70; PULSE 79; RESP 18; TEMP 96.6; O2SAT 99
[2016-08-14 16:00] VITALS: BP 118/79; PULSE 88; RESP 16; TEMP 97.8; O2SAT 99
--- NOTE | 2016-08-14 16:48 | HHI.PR ---
Subjective Remarks Follow for abdominal pain. Patient is sitting up and eating her food comfortably. She is asking me to not discontinue IV Dilaudid into give her until tonight. Otherwise she has no complaints. Deny nausea vomiting. She continues to complain the same chronic pain. Objective Vitals Vital Signs Date Time Temp Pulse Resp B/P Pulse Ox O2 Delivery O2 Flow Rate FiO2 08/14/16 12:00 96.6 79 18 112/70 99 08/14/16 08:00 97.3 95 17 111/65 98 08/14/16 00:00 99.4 104 18 109/71 99 08/13/16 20:00 97.4 92 18 128/82 99 08/13/16 19:10 87 I/O 08/13/16 08/13/16 08/13/16 08/14/16 08/14/16 08/14/16 07:00 15:00 23:00 07:00 15:00 23:00 Intake Total 240 ml 840 ml 360 ml 480 ml 700 ml Output Total 600 ml 950 ml 975 ml Balance 240 ml 840 ml -240 ml -470 ml -275 ml Intake Oral 240 ml 840 ml 360 ml 480 ml 700 ml IV Total 0 ml Output Urine Total 600 ml 950 ml 975 ml # Voids 3 3 # Bowel Movements 2 0 1 1 Result Diagram: 08/14/16 0454 08/14/16 0454 Objective Remarks GENERAL: in nad CARDIOVASCULAR: Regular rate and rhythm without murmurs, gallops, or rubs. RESPIRATORY: Breath sounds equal bilaterally. No accessory muscle use. GASTROINTESTINAL: Positive diffuse tenderness with palpation. Negative for any peritoneal signs. Drain in place. Wound is dry clean and intact. Procedures Biliary drain placement. Medications and IVs Current Medications Acetaminophen 650 mg 650 mg ONCE ONCE PO Last administered on 07/19/16 12:40; Start 07/19/16 at 11:45; Stop 07/19/16 at 11:46; Status DC Sodium Chloride 1,000 ml @ 1,000 mls/hr Q1H ONCE IV Last administered on 12:39; Start 07/19/16 at 11:41; Stop 07/19/16 at 12:40; Status DC Sodium Chloride (NS 1000 ml Inj) 800 ml @ 1,000 mls/hr Q48M ONCE IV Last administered on 07/19/16 12:40; Start 07/19/16 at 11:41; Stop 07/19/16 at 12:28; Status DC Hydromorphone HCl (Dilaudid Pf Inj) 1 mg ONCE ONCE IV PUSH Last administered on 07/19/16 12:39; Start 07/19/16 at 11:45; Stop 07/19/16 at 11:46; Status DC Ondansetron HCl 4 mg 4 mg ONCE ONCE IV PUSH Last administered on 07/19/16 12: 40; Start 07/19/16 at 11:45; Stop 07/19/16 at 11:46; Status DC Norepinephrine Bitartrate (Levophed-Dextrose Drip) 250 ml @ 0 mls/hr TITRATE IV Last administered on 07/20/16 06:38; Start 07/19/16 at 14:15; Stop 08/11/16 at 20:00; Status DC Terbutaline Sulfate 1 mg 1 mg UNSCH PRN SQ For Extravasation; Start 07/19/16 at 14:15; Stop 08/11/16 at 20:00; Status DC Sodium Chloride 1,000 ml @ 999 mls/hr Q1H1M IV Last administered on 07/19/16 14:26; Start 07/19/16 at 14:15; Stop 07/19/16 at 15:15; Status DC Piperacillin Sod/ Tazobactam Sod 50 ml @ 100 mls/hr ONCE ONCE IV Last administered on 07/19/16 14:25; Start 07/19/16 at 14:15; Stop 07/19/16 at 14:44; Status DC Vancomycin HCl/ Sodium Chloride (Vancomycin Inj/ NS 250 ml Inj) 258 ml @ 250 mls/hr ONCE ONCE IV ; Start 07/19/16 at 14:15; Stop 07/19/16 at 15:16; Status DC Norepinephrine Bitartrate (Levophed Inj) 4 mg STK-MED ONCE .ROUTE Last administered on 07/19/16 14:24; Start 07/19/16 at 14:14; Stop 07/19/16 at 14:15; Status DC Pantoprazole Sodium (Protonix Inj) 40 mg DAILY IV Last administered on 08:10; Start 07/19/16 at 15:15; Stop 08/10/16 at 21:00; Status DC Albuterol/ Ipratropium (Duoneb Neb) 1 ampule Q6HR NEB INH Last administered on 07/23/16 16:00; Start 07/19/16 at 16:00; Stop 07/23/16 at 16:00; Status DC Albuterol/ Ipratropium (Duoneb Neb) 1 ampule Q2HR NEB PRN INH WHEEZING; Start 07/19/16 at 15:15 Miscellaneous Information 1 [id number] XX Last administered on 07/21/16 07:37; Start 07/19/16 at 15:15 Chlorhexidine Gluconate (Chlorhexidine 2% Cloth) Taper DAILY@04 TOP Last administered on 08/01/16 20:41; Start 07/20/16 at 04:00; Stop 07/16/17 at 03:59 Chlorhexidine Gluconate 3 pack 3 pack UNSCH PRN TOP HYGIENIC CARE; Start at 15:15 Sodium Chloride (NS 1000 ml Inj) 1,000 ml @ 125 mls/hr Q8H IV Last administered on 07/20/16 20:29; Start 07/19/16 at 15:15; Stop 07/21/16 at 07:42; Status DC Dextrose (D50w (Vial) Inj) 25 ml UNSCH PRN IV PUSH HYPOGLYCEMIA-SEE COMMENTS; Start 07/19/16 at 15:15 Glucagon (Glucagon Inj) 1 mg UNSCH PRN OTHER HYPOGLYCEMIA-SEE COMMENTS; Start 07/19/16 at 15:15 Insulin Human Regular 1 1 Q6H SQ Last administered on 08/14/16 15:19; Start at 15:15 Vancomycin HCl 1000 mg/Sodium Chloride 250 ml @ 250 mls/hr Q12H IV Last administered on 07/20/16 08:57; Start 07/20/16 at 09:00; Stop 07/20/16 at 17:29; Status DC Piperacillin Sod/ Tazobactam Sod 100 ml @ 200 mls/hr Q6H IV Last administered on 07/24/16 13:57; Start 07/19/16 at 20:00; Stop 07/24/16 at 19:52; Status DC Sodium Chloride 1,000 ml @ 999 mls/hr BOLUS ONCE IV ; Start 07/19/16 at 16:00; Stop 07/19/16 at 17:00; Status DC Pharmacy Profile Note (Vancomycin Consult Pharmacy) ml @ 0 mls/hr UNSCH XX ; Start 07/19/16 at 16:15; Stop 07/20/16 at 17:29; Status DC Miscellaneous Information SPECIFIC LAB TO BE OTIS... ONCE ONCE XX ; Start at 20:45; Stop 07/21/16 at 20:45; Status DC Hydromorphone HCl (Dilaudid Pf Inj) 0.5 mg Q4H PRN IV Last administered on 07/24 07:10; Start 07/19/16 at 21:45; Stop 07/24/16 at 08:51; Status DC Acetaminophen 650 mg 650 mg Q6H PRN PO temp>101 Last administered on 08/12/16 21:44; Start 07/20/16 at 00:30 Potassium Chloride 100 ml @ 50 mls/hr Q2H PRN IV For Potassium 2.8 - 3.2 mEq/ L Last administered on 07/22/16 07:42; Start 07/20/16 at 04:45; Stop 07/28/16 at 07:29; Status DC Potassium Chloride (KCl 20 Meq Premix Inj) 100 ml @ 50 mls/hr Q2H PRN IV For Potassium 2.8 - 3.2 mEq/L; Start 07/20/16 at 04:45; Stop 07/28/16 at 07:29; Status DC Potassium Chloride 40 meq 40 meq UNSCH PRN PO/TUBE For Potassium 3.3 - 3.5 mEq/ L; Start 07/20/16 at 04:45; Stop 07/28/16 at 07:29; Status DC Potassium Chloride 100 ml @ 25 mls/hr UNSCH PRN IV For Potassium 3.3 - 3.5 mEq /L; Start 07/20/16 at 04:45; Stop 07/28/16 at 07:29; Status DC Potassium Chloride 100 ml @ 50 mls/hr Q2H PRN IV For Potassium 3.3 - 3.5 mEq/ L Last administered on 07/27/16 18:11; Start 07/20/16 at 04:45; Stop 07/28/16 at 07:29; Status DC Magnesium Sulfate/ Sodium Chloride (Magnesium Sulfate Inj/NS Inj) 100 ml @ 50 mls/hr UNSCH PRN IV For Magnesium 0.9 - 1.1 mg/dL; Start 07/20/16 at 04:45; Stop 07/28/16 at 07:29; Status DC Magnesium Oxide 800 mg 800 mg UNSCH PRN PO For Magnesium 1.2 - 1.6 mg/dL Last administered on 07/27/16 12:36; Start 07/20/16 at 04:45; Stop 07/28/16 at 07:29 ; Status DC Magnesium Sulfate/ Sodium Chloride (Magnesium Sulfate Inj/NS Inj) 100 ml @ 50 mls/hr UNSCH PRN IV For Magnesium 1.2 - 1.6 mg/dL Last administered on 21:26; Start 07/20/16 at 04:45; Stop 07/28/16 at 07:29; Status DC Potassium Phosphate 2000 mg 2,000 mg Q4H PRN PO For Phosphorus < 2.5 mg/dL Last administered on 07/20/16 08:36; Start 07/20/16 at 04:45; Stop 07/28/16 at 07 :29; Status DC Sodium Phosphate/ Sodium Chloride (Sodium Phosphate Inj/NS 250 ml Inj) 250 ml @ 42 mls/hr UNSCH PRN IV For Phosphorus < 2.5 mg/dL Last administered on 02:30; Start 07/20/16 at 04:45; Stop 07/28/16 at 07:29; Status DC Potassium Chloride (KCl 40 Meq/30 ml Liq) 40 meq UNSCH PRN PO/TUBE SEE LABEL COMMENTS; Start 07/20/16 at 04:45; Stop 07/28/16 at 07:29; Status DC Potassium Phosphate 2000 mg 2,000 mg UNSCH PRN PO/TUBE SEE LABEL COMMENTS Last administered on 07/27/16 16:56; Start 07/20/16 at 04:45; Stop 07/28/16 at 07:29 ; Status DC Potassium Phosphate 30 mmol/ Sodium Chloride 260 ml @ 42 mls/hr UNSCH PRN IV SEE LABEL COMMENTS Last administered on 07/24/16 11:28; Start 07/20/16 at 04:45; Stop 07/28/16 at 07:29; Status DC Sodium Chloride 1,000 ml @ 999 mls/hr BOLUS ONCE IV Last administered on 08:35; Start 07/20/16 at 08:00; Stop 07/20/16 at 09:00; Status DC Metronidazole 100 ml @ 100 mls/hr Q8H IV Last administered on 07/20/16 15:51; Start 07/20/16 at 09:00; Stop 07/20/16 at 17:29; Status DC Phytonadione/ Sodium Chloride (Vitamin K Inj/ NS Inj) 51 ml @ 102 mls/hr ONCE ONCE IV Last administered on 07/20/16 14:01; Start 07/20/16 at 14:00; Stop at 14:29; Status DC Phytonadione (Vitamin K Inj) 10 mg DAILY SQ Last administered on 07/22/16 07:35 ; Start 07/21/16 at 09:00; Stop 07/23/16 at 08:59; Status DC Albumin Human (Albumin 25% Inj) 25 gm Q8HR IV Last administered on 07/21/16 07: 22; Start 07/20/16 at 14:00; Stop 07/23/16 at 13:59; Status DC Iohexol (Omnipaque 350 Inj) 100 ml STK-MED ONCE IV ; Start 07/19/16 at 16:00; Stop 07/20/16 at 14:13; Status DC Bumetanide (Bumex Inj) 1 mg ONCE ONCE IV PUSH Last administered on 07/21/16 09 :00; Start 07/21/16 at 07:30; Stop 07/21/16 at 07:50; Status DC Alteplase, Recombinant (Cathflo Activase Inj) 2 mg ONCE ONCE INTRACATH Last administered on 07/21/16 09:00; Start 07/21/16 at 07:45; Stop 07/21/16 at 07:50; Status DC Ondansetron HCl (Zofran Inj) 4 mg Q8H PRN IV PUSH n/v Last administered on 08/14 08:43; Start 07/21/16 at 08:15 Hydromorphone HCl (Dilaudid Pf Inj) 0.5 mg NOW ONCE IV PUSH Last administered on 07/21/16 10:04; Start 07/21/16 at 09:30; Stop 07/21/16 at 09:31; Status DC Hydromorphone HCl (Dilaudid Pf Inj) 0.5 mg Q3H PRN IV pain 3-10 Last administered on 08/09/16 12:11; Start 07/24/16 at 11:45; Stop 08/09/16 at 14:08 ; Status DC Midazolam HCl 5 mg 5 mg STK-MED ONCE .ROUTE ; Start 07/24/16 at 18:34; Stop at 18:35; Status DC Sodium Chloride 250 ml @ As Directed STK-MED ONCE .ROUTE ; Start 07/24/16 at 18: 48; Stop 07/24/16 at 18:49; Status DC Ampicillin Sodium/ Sulbactam Sodium/ Sodium Chloride (Unasyn Inj/NS Inj) 100 ml @ 200 mls/hr Q6H IV Last administered on 08/01/16 14:29; Start 07/24/16 at 20: 00; Stop 08/01/16 at 15:00; Status DC Polyethylene Glycol (Miralax) 17 gm DAILY PO Last administered on 07/28/16 09: 23; Start 07/25/16 at 15:00 Sugammadex Sodium (Bridion Inj) 200 mg STK-MED ONCE IV PUSH ; Start 07/26/16 at 10:26; Stop 07/26/16 at 10:27; Status DC Hydromorphone HCl 1 mg 1 mg STK-MED ONCE .ROUTE Last administered on 07/26/16 10:47; Start 07/26/16 at 10:47; Stop 07/26/16 at 10:48; Status DC Potassium Chloride/Dextrose/ Sod Cl 1,000 ml @ 60 mls/hr [id number] IV Last administered on 07/27/16 11:03; Start 07/26/16 at 16:45; Stop 07/28/16 at 14:48 ; Status DC Potassium Chloride (KCl 20 Meq Premix Inj) 100 ml @ 50 mls/hr ONCE ONCE IV Last administered on 07/26/16 16:53; Start 07/26/16 at 16:45; Stop 07/27/16 at 09 :55; Status DC Iohexol 100 ml 100 ml STK-MED ONCE OTHER Last administered on 07/26/16 10:00; Start 07/26/16 at 10:00; Stop 07/26/16 at 16:58; Status DC Magnesium Sulfate/ Dextrose (Magnesium Sulfate 1 Gm Premix) 100 ml @ 100 mls/ hr Q1H IV ; Start 07/27/16 at 10:00; Stop 07/27/16 at 10:00; Status DC Potassium Phos/ Sodium Phos (K-Phos Neutral) 250 mg Q8HR PO ; Start 07/27/16 at 09:30; Stop 07/27/16 at 09:56; Status DC Propofol (Diprivan 200 Mg/20 ml Inj) 200 mg STK-MED ONCE IV ; Start 07/26/16 at 10:17; Stop 07/27/16 at 10:48; Status DC Lidocaine/ Epinephrine (Xylocaine-Epi 1%-1:100,000 Inj) 20 ml STK-MED ONCE .ROUTE ; Start 07/27/16 at 14:53; Stop 07/27/16 at 14:54; Status DC Midazolam HCl (Versed Inj) 5 mg STK-MED ONCE .ROUTE Last administered on 14:57; Start 07/27/16 at 14:57; Stop 07/27/16 at 14:58; Status DC Fentanyl Citrate (fentaNYL INJ) 250 mcg STK-MED ONCE .ROUTE ; Start 07/27/16 at 14:57; Stop 07/27/16 at 14:58; Status DC Hydromorphone HCl (Dilaudid Pf Inj) 2 mg STK-MED ONCE .ROUTE Last administered on 07/27/16 15:40; Start 07/27/16 at 15:40; Stop 07/27/16 at 15:41; Status DC Sodium Polystyrene Sulfonate (Kayexalate Liq) 15 gm ONCE ONCE PO Last administered on 07/28/16 15:43; Start 07/28/16 at 15:00; Stop 07/28/16 at 15:01 ; Status DC Potassium Chloride (KCl) 60 meq ONCE ONCE PO Last administered on 07/31/16 05 :17; Start 07/31/16 at 05:00; Stop 07/31/16 at 05:01; Status DC Sodium Chloride (NS Inj) 10 ml DAILY IRRIGATION Last administered on 08/03/16 07:52; Start 08/01/16 at 09:00; Stop 08/04/16 at 08:59; Status DC Iohexol (Omnipaque 350 Inj) 25 ml STK-MED ONCE .XX Last administered on 13:30; Start 07/31/16 at 14:08; Stop 07/31/16 at 14:09; Status DC Midazolam HCl (Versed Inj) 2 mg STK-MED ONCE .ROUTE ; Start 07/31/16 at 14:14; Stop 07/31/16 at 14:15; Status DC Fentanyl Citrate (fentaNYL INJ) 100 mcg STK-MED ONCE .ROUTE ; Start 07/31/16 at 14:14; Stop 07/31/16 at 14:15; Status DC Hydromorphone HCl (*DILAUDID PF INJ PERIprocedural ONLY) 1 mg STK-MED ONCE .ROUTE Last administered on 07/31/16 14:33; Start 07/31/16 at 14:33; Stop at 14:34; Status DC Miscellaneous Information ALL NURSING DEPARTME... UNSCH PRN XX SEE LABEL COMMENTS; Start 07/31/16 at 14:06; Stop 08/01/16 at 14:05; Status DC Sodium Chloride (NS 1000 ml Inj) 1,000 ml @ 999 mls/hr Q1H1M ONCE IV Last administered on 07/31/16 19:17; Start 07/31/16 at 19:15; Stop 07/31/16 at 20:15 ; Status DC Acetaminophen (Tylenol) 650 mg ONCE ONCE PO Last administered on 07/31/16 19: 15; Start 07/31/16 at 19:15; Stop 07/31/16 at 19:16; Status DC Potassium Chloride 30 meq 30 meq ONCE ONCE PO Last administered on 08/01/16 14:29; Start 08/01/16 at 15:00; Stop 08/01/16 at 15:01; Status DC Piperacillin Sod/ Tazobactam Sod 50 ml @ 100 mls/hr Q6H IV Last administered on 08/08/16 08:53; Start 08/01/16 at 20:00; Stop 08/08/16 at 13:48; Status DC Pharmacy Profile Note 0 ml @ 0 mls/hr UNSCH IV ; Start 08/01/16 at 15:00; Stop 08/03/16 at 12:26; Status DC Micafungin Sodium 150 mg/Sodium Chloride 100 ml @ 100 mls/hr Q24H IV Last administered on 08/03/16 15:00; Start 08/01/16 at 16:00; Stop 08/03/16 at 19:34 ; Status DC Vancomycin HCl/ Sodium Chloride (Vancomycin Inj/ NS 250 ml Inj) 250 ml @ 250 mls/hr Q12H IV Last administered on 08/03/16 06:47; Start 08/01/16 at 18:00; Stop 08/03/16 at 12:26; Status DC Miscellaneous Information SPECIFIC LAB TO BE DRAWN:VANCOMYCIN TROUGH DATE TO... ONCE ONCE XX Last administered on 08/03/16 05:45; Start 08/03/16 at 05:45; Stop 08/03/16 at 05:46; Status DC Sodium Chloride 500 ml @ 0 mls/hr NOW ONCE IV ; Start 08/01/16 at 16:30; Stop 08/01/16 at 16:31; Status DC Sodium Chloride 1,000 ml @ 999 mls/hr BOLUS STAT IV Last administered on 08/01 16:34; Start 08/01/16 at 16:23; Stop 08/01/16 at 17:23; Status DC Sodium Chloride (NS 1000 ml Inj) 1,000 ml @ 30 mls/hr Q24H IV Last administered on 08/10/16 12:16; Start 08/01/16 at 16:30; Stop 08/11/16 at 20:00 ; Status DC Diatrizoate Meglum/ Diatrizoate Sod ( Gastroview Liq) 18 ml ONCE ONCE PO Last administered on 08/02/16 06:25; Start 08/01/16 at 20:47; Stop 08/01/16 at 21:18; Status DC Propofol (Diprivan 200 Mg/20 ml Inj) 20 mg STK-MED ONCE IV ; Start 07/31/16 at 07:28; Stop 08/02/16 at 07:28; Status DC Ondansetron HCl (Zofran Inj) 4 mg STK-MED ONCE IV PUSH ; Start 07/31/16 at 07:28 ; Stop 08/02/16 at 07:28; Status DC Potassium Chloride (KCl) 30 meq ONCE ONCE PO Last administered on 08/02/16 14 :37; Start 08/02/16 at 14:15; Stop 08/02/16 at 14:17; Status DC Potassium Chloride (KCl) 60 meq ONCE ONCE PO Last administered on 08/03/16 06 :47; Start 08/03/16 at 06:15; Stop 08/03/16 at 06:16; Status DC Ursodiol (Actigall) 300 mg Q12HR PO Last administered on 08/09/16 07:45; Start 08/03/16 at 10:30; Stop 08/09/16 at 17:55; Status DC Miscellaneous Information SPECIFIC LAB TO BE OTIS... ONCE ONCE XX ; Start at 17:45; Stop 08/03/16 at 17:45; Status DC Magnesium Sulfate/ Dextrose (Magnesium Sulfate 1 Gm Premix) 100 ml @ 100 mls/ hr ONCE ONCE IV Last administered on 08/04/16 12:40; Start 08/04/16 at 11:00 ; Stop 08/04/16 at 11:59; Status DC Potassium Chloride 40 meq 40 meq ONCE ONCE PO Last administered on 08/04/16 12:40; Start 08/04/16 at 10:45; Stop 08/04/16 at 10:46; Status DC Potassium Chloride (KCl 20 Meq Premix Inj) 100 ml @ 50 mls/hr Q2H IV ; Start at 12:00; Stop 08/04/16 at 15:59; Status DC Iohexol (Omnipaque 350 Inj) 95 ml STK-MED ONCE IV Last administered on 10:43; Start 08/02/16 at 10:43; Stop 08/06/16 at 13:58; Status DC Insulin Detemir 5 units 5 units Q12HR SQ Last administered on 08/14/16 08:32; Start 08/07/16 at 10:00 Potassium Chloride (KCl 10 Meq Premix Inj) 100 ml @ 100 mls/hr Q1H IV Last administered on 08/08/16 04:35; Start 08/07/16 at 22:15; Stop 08/08/16 at 01:14 ; Status DC Levofloxacin (Levaquin) 750 mg DAILY PO Last administered on 08/13/16 09:17; Start 08/08/16 at 14:00; Stop 08/13/16 at 13:59; Status DC Hydromorphone HCl (Dilaudid Pf Inj) 0.25 mg Q3H PRN IV pain 3-10 Last administered on 08/11/16 17:55; Start 08/09/16 at 15:10; Stop 08/11/16 at 20:01 ; Status DC Ursodiol (Actigall) 300 mg BIDAC PO Last administered on 08/14/16 15:20; Start 08/10/16 at 07:00 Amylase/Lipase/ Protease (Creon 12-38-60) 1 cap TIDAC PO Last administered on 11:59; Start 08/10/16 at 08:00 Pantoprazole Sodium (Protonix) 40 mg DAILY PO Last administered on 08/14/16 08 :28; Start 08/11/16 at 09:00 Hydromorphone HCl (Dilaudid Pf Inj) 0.5 mg Q3H PRN IV pain 3-10 IF NPO Last administered on 08/14/16 11:57; Start 08/11/16 at 21:10 A/P Assessment and Plan 46-year-old female: Fever -No fever since that one episode. -Workup so far negative. Pending urine cultures. S/P Septic shock Klebsiella pneumonia bacteremia, cholangitis: now recent culture growing citrobacter - Antibiotics per infectious disease. 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 Per Pathologist liver biopsy not consistent with PSC, more suggestive of Cirrhosis. -GI ff. Status post ERCP 07/26/16> left hepatic tree stricture, continue antibiotic, S/P liver biopsy. - Patient being considered for transfer to [facility]. - - S/P biliary drain placement on 07/31/16 by IR - Regular diet as tolerated. Biliary drain is capped per GI since 08/04. - Continue to follow for improvement in liver enzymes and pain. - prn pain meds - LFTs trending down nicely - Palliative care consulted. Unable to transfer patient. Once medically stable condition discharge to home. Coagulopathy: corrected Likely secondary to liver disease. - Monitor CBC and coags. s/p transfusion 3 u FFP and Vitamin K 10mg IV x1 on 07/20 for INR 11 now INR 1.0 - INR good Hypokalemia: Replace and corrected DM type 2. improve po. continue Levemir 5 units bid. and increase gradually as po improve. continue SS GI prophylaxis: PPI. Stool softener PRN for constipation. Discharge Planning If blood cultures are negative for 48 hours remains afebrile she can be discharged then. Jayshree Whitehead MD Aug 14, 2016 16:48
[2016-08-14 20:00] VITALS: BP 127/77; PULSE 100; PULSE 98; RESP 18; TEMP 97.7; O2SAT 98
[2016-08-14] MEDS: CHLORHEXIDINE GLUCONATE 2 % 1 PACK (2 CLOTHS) TOP SCH (20:05)
--- NOTE | 2016-08-14 23:13 | HHI.GIFU ---
Subjective Remarks Complaining of abdominal discomfort Objective Vitals I&O Vital Signs Date Time Temp Pulse Resp B/P Pulse Ox O2 Delivery O2 Flow Rate FiO2 08/14/16 20:00 97.7 98 18 127/77 98 08/14/16 18:33 17 08/14/16 16:00 97.8 88 16 118/79 99 08/14/16 12:00 96.6 79 18 112/70 99 08/14/16 08:00 97.3 95 17 111/65 98 08/14/16 00:00 99.4 104 18 109/71 99 I/O 08/13/16 08/13/16 08/13/16 08/14/16 08/14/16 08/14/16 07:00 15:00 23:00 07:00 15:00 23:00 Intake Total 240 ml 840 ml 360 ml 480 ml 700 ml Output Total 600 ml 950 ml 975 ml Balance 240 ml 840 ml -240 ml -470 ml -275 ml Intake Oral 240 ml 840 ml 360 ml 480 ml 700 ml IV Total 0 ml Output Urine Total 600 ml 950 ml 975 ml # Voids 3 3 # Bowel Movements 2 0 1 1 Laboratory Laboratory Tests Test 08/14/16 04:54 White Blood Count 9.9 Red Blood Count 3.85 Hemoglobin 10.9 Hematocrit 32.8 Mean Corpuscular Volume 85.1 Mean Corpuscular Hemoglobin 28.3 Mean Corpuscular Hemoglobin 33.2 Concent Red Cell Distribution Width 20.9 Platelet Count 471 Mean Platelet Volume 10.3 Sodium Level 137 Potassium Level 3.6 Chloride Level 101 Carbon Dioxide Level 27.9 Anion Gap 8 Blood Urea Nitrogen 9 Creatinine 0.29 Estimat Glomerular Filtration 249 Rate Random Glucose 166 Calcium Level 9.3 Total Bilirubin 2.9 Direct Bilirubin 2.1 Indirect Bilirubin 0.8 Aspartate Amino Transf 156 (AST/SGOT) Alanine Aminotransferase 84 (ALT/SGPT) Alkaline Phosphatase 1271 Total Protein 7.0 Albumin 2.6 Date/Time Procedure Status Source Growth 08/13/16 11:12 Aerobic Blood Culture - Preliminary Resulted Blood Peripheral NO GROWTH IN 1 DAY 08/13/16 11:12 Anaerobic Blood Culture - Preliminary Resulted Blood Peripheral NO GROWTH IN 1 DAY Imaging Last 48 hours Impressions Chest X-Ray 08/13/16 0000 Signed Impressions: Service Date/Time: Saturday, August 13, 2016 12:12 - CONCLUSION: Small left pleural effusion with minimal consolidative changes left base. Effusion has increased slightly from 04/26/2016. You Morales MD FACR Physical Exam HEENT: Normocephalic; atraumatic, + jaundice CHEST: CTA CARDIAC: RRR ABDOMEN: Soft, mildly distended, moderate tenderness; no hepatosplenomegaly; bowel sounds x 4 quadrants. Biliary drain capped EXTREMITIES: No clubbing, cyanosis, or edema. SKIN: Normal; no rash; + jaundice. AEROSPACE MECHANIC: No focal deficits; A&O x3. Assessment and Plan Plan ASSESSMENT: - Sclerosing Cholangitis/Biliary Strictures with sepsis/fever, N/V/Abdominal pain. She is currently following with [facility]. Abdomen/Pelvis CT (07/19/16)----> Continued cirrhotic appearance of the liver. Some areas of scarring or volume loss throughout the right lobe similar to the previous study. No definite solid mass is seen. Status post splenectomy. No significant retroperitoneal adenopathy. MRCP (07/23/16)----> 1. Abnormally dilated left intrahepatic bile ducts with caliber change near the ankit hepatis at the confluence. No mass is appreciated in this area on this examination or the recent CT of the abdomen. Therefore, etiology is nonspecific. Stricture or small mass are the differential diagnostic considerations. These ducts have a similar appearance on the August 2014 examination. Suggest correlation with the clinical history. 2. Normal right intrahepatic bile ducts and common bile duct. Gallbladder is decompressed but demonstrates severe diffuse wall edema which may be related to the portal hypertension and chronic liver disease. 3. Abnormally dilated main pancreatic duct in the tail with associated dilated side branches. There is abrupt caliber change in the mid body. The appearance is similar to multiple prior studies dating back to 2015. I do not see a mass as the cause and since there has been no significant change this may be related to a stricture. Segmental IPMN is also a consideration but felt less likely. Suggest attention to this at followup imaging to confirm stability. 4. The liver demonstrates features diagnostic of cirrhosis. There is a moderate volume of free fluid within the abdomen and pelvis likely related to portal hypertension. There are also small bilateral pleural effusions. Bacteremia with Klebsiella, GNR. [facility] declined patient for transfer because they feel there is nothing they will do differently than we are doing here with regards to her care. S/P ERCP (07/26/16)-----> Ampulla C/W previous sphincterotomy, some sludge removed by balloon, free flow of bile, not able to see the left hepatic tree. No dye in that area, possible stricture, possible stricture in the left hepatic duct. 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 Pt had worsening pain, high fevers, hypotension, tachycardia on 08/01 and her abx were changed by ID to Zosyn and Vanco. Rpt Bcx from 08/01 with Citrobacter species. Rpt. Abdomen/Pelvis CT (08/02/16)-------> 1. Cirrhotic liver. 2. Biliary drain in place from the left lobe. There is pneumobilia seen. 3. Non-obstructing 8 mm left renal stone. 4. Status post splenectomy. 5. Mild ascites in the pericolic regions and in the pelvis. 6. Dilatation of the pancreatic duct and the pancreatic body. The pancreatic head is unremarkable. 7. Mild left pleural effusion. There is areas of atelectasis or consolidation at the lung bases bilaterally. She has improved since abx changed. Biliary drain capped on 08/04/16. States her pain has been worse for the past two days. Nausea without vomiting, tolerating diet. Her LFTs are trending down and she seems to be tolerating capping of biliary drain by labs, but she continues to have abdominal pain- no improvement. Spoke to Dr. Wallace earlier in week and he was reluctant to accept pt at that time because he did not want to remove the biliary drain too soon for fear of a bile leak, but said if there was no improvement by the end of the week, he would accept patient as hospital to hospital transfer at that time. Will call in am to update on patient's condition, ongoing pain. Levaquin, Ursodiol. CM following. - Sepsis, Bacteremia, Fevers, Leukocytosis. Original BCx with Klebsiella, GNR. Rpt. with GNR, Citrobacter species. Afebrile. Levaquin. - Liver cirrhosis. S/P liver biopsy 07/27/16, results pending. S/P liver biopsy ( 2013) at that time of both her normal liver parenchyma and her liver mass. The normal liver parenchyma revealed chronic hepatitis with bridging fibrosis and cirrhosis grade 2/4, stage 3-4/4 exhibiting bile duct tubular damage and ductopenia, chronic hepaititis with bridging fibrosis. Of note, specimen #1 suggested a differential diagnosis of primary biliary cirrhosis vs. drug induced disease. The histopathology did not suggest that of primary sclerosing cholangitis. The liver mass suggested chronic hepatitis with bridging fibrosis 2/4, stage III/4. Of note, she was evaluated by [facility], but states she was told that her MELD score was too low to be considered for liver transplant. AFP 9.5, Ceruloplasmin 46. MARCELLO negative, ASMA negative, AMA <20.0, Ferritin 159, Iron sat 17.9%. Rpt. Liver biopsy (07/30/16) with severe chronic hepatitis with bridging fibrosis and cirrhosis (grade 2/4; stage 3-4/4) with associated bile stasis, fatty change and histopathologic features most suggestive of drug induced liver disease (including alcohol)- There is no evidence of primary biliary cirrhosis or primary sclerosing cholangitis in this biopsy material. Cytoplasmic inclusions suggestive of Alpha-antitrypsin are prsent as may be observed in cirrhotic livers however it is suggested that serologic studies be performed. The pathologic features present in this biopsy are different from that observed in the liver biopsy of 01/19/14. Of note, alpha one antitrypsin 291 - Hx of abnormal imaging of the gallbladder. HIDA (04/27/16)----> Nonvisualization of the gallbladder. ADDENDUM: Delayed imaging of the abdomen documents an ovoid area of activity in the right upper quadrant in the expected location of the gallbladder based on prior cross-sectional imaging studies. Delayed visualization the gallbladder should exclude complete cystic duct obstruction. However, based on prior imaging studies, the gallbladder demonstrated severe diffuse wall edema. S/P GS evaluation during last admission who did not feel this was contributing to her symptoms and did not recommend cholecystectomy. AFP 9.5, Hepatitis panel negative, alpha 1 antitrypsin 291, ceruloplasmin negative marcello negative, asma negative, ama < 20.0 Rpt. Liver biopsy (07/30/16) with severe chronic hepatitis with bridging fibrosis and cirrhosis (grade 2/4; stage 3-4/4) with associated bile stasis, fatty change and histopathologic features most suggestive of drug induced liver disease ( including alcohol)- There is no evidence of primary biliary cirrhosis or primary sclerosing cholangitis in this biopsy material. Cytoplasmic inclusions suggestive of Alpha-antitrypsin are prsent as may be observed in cirrhotic livers however it is suggested that serologic studies be performed. The pathologic features present in this biopsy are different from that observed in the liver biopsy of 01/19/14. LFT improved. However, previous ERCPs consistent with sclerosing cholangitis. - Hx of non-Hodgkin's lymphoma and completed chemotherapy in 2005, but has had an ongoing problem with biliary strictures and sclerosing cholangitis. Plan: - TOO - Cont. Abx per ID recommendations - Cont. Ursodiol - Cont. PPI - Cont. Miralax - Monitor labs -LFTs seem to be rising we will obtain CT of the abdomen - Supportive care - Biliary drain capped 08/04- Recommended placing back to drainage, but patient is refusing and would like to wait until tomorrow if her labs/pain do not improve - [facility] declined patient because they do not feel that they would do anything different with regards to her care -We will continue to look for a tertiary care center that would be willing to accept her. - Further recommendations as the case develops Markus Newberry MD Aug 14, 2016 23:13
[2016-08-15] VITALS: BP 108/65; PULSE 85; RESP 18; TEMP 96.6; O2SAT 100
[2016-08-15] MEDS: HYDROmorphone HCL PF 1 MG/ML VIAL IV PRN ×3 (02:56→08:46)
[2016-08-15] MEDS: INSULIN NovoLIN REGULAR SUPPLEMENTAL SCALE SQ SCH ×5 (03:01→22:01)
[2016-08-15 04:56] LABS: HEMATOCRIT 29.2 % (35.0-46.0); MEAN CORPUSCULAR HEMOGLOBIN 27.8 PG (27.0-34.0); MEAN CORPUSCULAR HGB CONC 32.3 % (32.0-36.0); PLATELET COUNT 408 TH/MM3 (150-450); RED BLOOD COUNT 3.39 MIL/MM3 (4.00-5.30); RED CELL DISTRIBUTION WIDTH 20.8 % (11.6-17.2); REVIEW FLAG FINAL; WHITE BLOOD COUNT 8.2 TH/MM3 (4.0-11.0)
[2016-08-15 05:35] LABS: ALKALINE PHOSPHATASE 1052 U/L (45-117); ALT (GPT) 71 U/L (10-53); ANION GAP 6 MEQ/L (5-15); AST (GOT) 117 U/L (15-37); BICARBONATE 27.8 MEQ/L (21.0-32.0); BLOOD UREA NITROGEN 11 MG/DL (7-18); CHLORIDE 102 MEQ/L (98-107); GLOMERULAR FILTRATION RATE 259 ML/MIN (>89); POTASSIUM 3.8 MEQ/L (3.5-5.1); SODIUM (NA) 136 MEQ/L (136-145); TOTAL BILIRUBIN ADULT 2.2 MG/DL (0.2-1.0)
[2016-08-15] MEDS: URSODIOL 300 MG CAP PO SCH ×2 (05:54→15:24)
[2016-08-15 08:00] VITALS: BP 117/74; PULSE 97; RESP 15; TEMP 98.2; O2SAT 99
[2016-08-15] MEDS: PANTOPRAZOLE SOD 40 MG DELAYED RELEASE TAB PO SCH (08:47)
[2016-08-15] MEDS: LIPASE/PROTEASE/AMYLASE (12,000/38,000/60,000) CAP PO SCH ×3 (08:47→17:57)
[2016-08-15] MEDS: INSULIN DETEMIR 100 UNITS/ML VIAL SQ SCH ×2 (08:48→21:03)
[2016-08-15] MEDS: POLYETHYLENE GLYCOL 17 GM PKG PO SCH (08:52)
[2016-08-15] MEDS ORDERED: LANTUS2P SQ (09:27)
[2016-08-15] MEDS ORDERED: HUMALOG SQ (09:27)
[2016-08-15] MEDS ORDERED: POLY17S PO (09:27)
[2016-08-15] MEDS ORDERED: Ursodiol PO (09:27)
[2016-08-15] MEDS ORDERED: PANT40TA3 PO (09:27)
[2016-08-15] MEDS ORDERED: CREON12 PO (09:27)
[2016-08-15] MEDS ORDERED: MORP1TAB25 PO (09:28)
[2016-08-15] MEDS ORDERED: MSIR15 PO (09:28)
[2016-08-15] MEDS ORDERED: MORPHINE SULFATE 15 MG TAB PO PRN (09:30)
--- NOTE | 2016-08-15 09:38 | HHI.PR ---
Subjective Remarks f/u for abdominal pain. patient asking to keep her IV pain medication until tomorrow. c/o same pain. remains afebrile. no other issues. tolerating PO intake. Objective Vitals Vital Signs Date Time Temp Pulse Resp B/P Pulse Ox O2 Delivery O2 Flow Rate FiO2 08/15/16 08:00 98.2 97 15 117/74 99 08/15/16 00:00 96.6 85 18 108/65 100 08/14/16 20:00 97.7 98 18 127/77 98 08/14/16 20:00 100 08/14/16 20:00 100 08/14/16 18:33 17 08/14/16 16:00 97.8 88 16 118/79 99 08/14/16 12:00 96.6 79 18 112/70 99 I/O 08/14/16 08/14/16 08/14/16 08/15/16 08/15/16 08/15/16 07:00 15:00 23:00 07:00 15:00 23:00 Intake Total 480 ml 700 ml 320 ml 480 ml Output Total 950 ml 975 ml 1000 ml 950 ml Balance -470 ml -275 ml -680 ml -470 ml Intake Oral 480 ml 700 ml 320 ml 480 ml IV Total 0 ml Output Urine Total 950 ml 975 ml 1000 ml 950 ml # Bowel Movements 1 1 0 0 Result Diagram: 08/15/1640908/15/16409 Objective Remarks GENERAL: in nad CARDIOVASCULAR: Regular rate and rhythm without murmurs, gallops, or rubs. RESPIRATORY: Breath sounds equal bilaterally. No accessory muscle use. GASTROINTESTINAL: Positive diffuse tenderness with palpation. Negative for any peritoneal signs. Drain in place. Wound is dry clean and intact. Procedures Biliary drain placement. Medications and IVs Current Medications Acetaminophen 650 mg 650 mg ONCE ONCE PO Last administered on 07/19/16 12:40; Start 07/19/16 at 11:45; Stop 07/19/16 at 11:46; Status DC Sodium Chloride 1,000 ml @ 1,000 mls/hr Q1H ONCE IV Last administered on 12:39; Start 07/19/16 at 11:41; Stop 07/19/16 at 12:40; Status DC Sodium Chloride (NS 1000 ml Inj) 800 ml @ 1,000 mls/hr Q48M ONCE IV Last administered on 07/19/16 12:40; Start 07/19/16 at 11:41; Stop 07/19/16 at 12:28; Status DC Hydromorphone HCl (Dilaudid Pf Inj) 1 mg ONCE ONCE IV PUSH Last administered on 07/19/16 12:39; Start 07/19/16 at 11:45; Stop 07/19/16 at 11:46; Status DC Ondansetron HCl 4 mg 4 mg ONCE ONCE IV PUSH Last administered on 07/19/16 12: 40; Start 07/19/16 at 11:45; Stop 07/19/16 at 11:46; Status DC Norepinephrine Bitartrate (Levophed-Dextrose Drip) 250 ml @ 0 mls/hr TITRATE IV Last administered on 07/20/16 06:38; Start 07/19/16 at 14:15; Stop 08/11/16 at 20:00; Status DC Terbutaline Sulfate 1 mg 1 mg UNSCH PRN SQ For Extravasation; Start 07/19/16 at 14:15; Stop 08/11/16 at 20:00; Status DC Sodium Chloride 1,000 ml @ 999 mls/hr Q1H1M IV Last administered on 07/19/16 14:26; Start 07/19/16 at 14:15; Stop 07/19/16 at 15:15; Status DC Piperacillin Sod/ Tazobactam Sod 50 ml @ 100 mls/hr ONCE ONCE IV Last administered on 07/19/16 14:25; Start 07/19/16 at 14:15; Stop 07/19/16 at 14:44; Status DC Vancomycin HCl/ Sodium Chloride (Vancomycin Inj/ NS 250 ml Inj) 258 ml @ 250 mls/hr ONCE ONCE IV ; Start 07/19/16 at 14:15; Stop 07/19/16 at 15:16; Status DC Norepinephrine Bitartrate (Levophed Inj) 4 mg STK-MED ONCE .ROUTE Last administered on 07/19/16 14:24; Start 07/19/16 at 14:14; Stop 07/19/16 at 14:15; Status DC Pantoprazole Sodium (Protonix Inj) 40 mg DAILY IV Last administered on 08:10; Start 07/19/16 at 15:15; Stop 08/10/16 at 21:00; Status DC Albuterol/ Ipratropium (Duoneb Neb) 1 ampule Q6HR NEB INH Last administered on 07/23/16 16:00; Start 07/19/16 at 16:00; Stop 07/23/16 at 16:00; Status DC Albuterol/ Ipratropium (Duoneb Neb) 1 ampule Q2HR NEB PRN INH WHEEZING; Start 07/19/16 at 15:15 Miscellaneous Information 1 [id number] XX Last administered on 07/21/16 07:37; Start 07/19/16 at 15:15 Chlorhexidine Gluconate (Chlorhexidine 2% Cloth) Taper DAILY@04 TOP Last administered on 08/01/16 20:41; Start 07/20/16 at 04:00; Stop 07/16/17 at 03:59 Chlorhexidine Gluconate 3 pack 3 pack UNSCH PRN TOP HYGIENIC CARE; Start at 15:15 Sodium Chloride (NS 1000 ml Inj) 1,000 ml @ 125 mls/hr Q8H IV Last administered on 07/20/16 20:29; Start 07/19/16 at 15:15; Stop 07/21/16 at 07:42; Status DC Dextrose (D50w (Vial) Inj) 25 ml UNSCH PRN IV PUSH HYPOGLYCEMIA-SEE COMMENTS; Start 07/19/16 at 15:15 Glucagon (Glucagon Inj) 1 mg UNSCH PRN OTHER HYPOGLYCEMIA-SEE COMMENTS; Start 07/19/16 at 15:15 Insulin Human Regular 1 1 Q6H SQ Last administered on 08/15/16 08:57; Start at 15:15 Vancomycin HCl 1000 mg/Sodium Chloride 250 ml @ 250 mls/hr Q12H IV Last administered on 07/20/16 08:57; Start 07/20/16 at 09:00; Stop 07/20/16 at 17:29; Status DC Piperacillin Sod/ Tazobactam Sod 100 ml @ 200 mls/hr Q6H IV Last administered on 07/24/16 13:57; Start 07/19/16 at 20:00; Stop 07/24/16 at 19:52; Status DC Sodium Chloride 1,000 ml @ 999 mls/hr BOLUS ONCE IV ; Start 07/19/16 at 16:00; Stop 07/19/16 at 17:00; Status DC Pharmacy Profile Note (Vancomycin Consult Pharmacy) ml @ 0 mls/hr UNSCH XX ; Start 07/19/16 at 16:15; Stop 07/20/16 at 17:29; Status DC Miscellaneous Information SPECIFIC LAB TO BE OTIS... ONCE ONCE XX ; Start at 20:45; Stop 07/21/16 at 20:45; Status DC Hydromorphone HCl (Dilaudid Pf Inj) 0.5 mg Q4H PRN IV Last administered on 07/24 07:10; Start 07/19/16 at 21:45; Stop 07/24/16 at 08:51; Status DC Acetaminophen 650 mg 650 mg Q6H PRN PO temp>101 Last administered on 08/12/16 21:44; Start 07/20/16 at 00:30 Potassium Chloride 100 ml @ 50 mls/hr Q2H PRN IV For Potassium 2.8 - 3.2 mEq/ L Last administered on 07/22/16 07:42; Start 07/20/16 at 04:45; Stop 07/28/16 at 07:29; Status DC Potassium Chloride (KCl 20 Meq Premix Inj) 100 ml @ 50 mls/hr Q2H PRN IV For Potassium 2.8 - 3.2 mEq/L; Start 07/20/16 at 04:45; Stop 07/28/16 at 07:29; Status DC Potassium Chloride 40 meq 40 meq UNSCH PRN PO/TUBE For Potassium 3.3 - 3.5 mEq/ L; Start 07/20/16 at 04:45; Stop 07/28/16 at 07:29; Status DC Potassium Chloride 100 ml @ 25 mls/hr UNSCH PRN IV For Potassium 3.3 - 3.5 mEq /L; Start 07/20/16 at 04:45; Stop 07/28/16 at 07:29; Status DC Potassium Chloride 100 ml @ 50 mls/hr Q2H PRN IV For Potassium 3.3 - 3.5 mEq/ L Last administered on 07/27/16 18:11; Start 07/20/16 at 04:45; Stop 07/28/16 at 07:29; Status DC Magnesium Sulfate/ Sodium Chloride (Magnesium Sulfate Inj/NS Inj) 100 ml @ 50 mls/hr UNSCH PRN IV For Magnesium 0.9 - 1.1 mg/dL; Start 07/20/16 at 04:45; Stop 07/28/16 at 07:29; Status DC Magnesium Oxide 800 mg 800 mg UNSCH PRN PO For Magnesium 1.2 - 1.6 mg/dL Last administered on 07/27/16 12:36; Start 07/20/16 at 04:45; Stop 07/28/16 at 07:29 ; Status DC Magnesium Sulfate/ Sodium Chloride (Magnesium Sulfate Inj/NS Inj) 100 ml @ 50 mls/hr UNSCH PRN IV For Magnesium 1.2 - 1.6 mg/dL Last administered on 21:26; Start 07/20/16 at 04:45; Stop 07/28/16 at 07:29; Status DC Potassium Phosphate 2000 mg 2,000 mg Q4H PRN PO For Phosphorus < 2.5 mg/dL Last administered on 07/20/16 08:36; Start 07/20/16 at 04:45; Stop 07/28/16 at 07 :29; Status DC Sodium Phosphate/ Sodium Chloride (Sodium Phosphate Inj/NS 250 ml Inj) 250 ml @ 42 mls/hr UNSCH PRN IV For Phosphorus < 2.5 mg/dL Last administered on 02:30; Start 07/20/16 at 04:45; Stop 07/28/16 at 07:29; Status DC Potassium Chloride (KCl 40 Meq/30 ml Liq) 40 meq UNSCH PRN PO/TUBE SEE LABEL COMMENTS; Start 07/20/16 at 04:45; Stop 07/28/16 at 07:29; Status DC Potassium Phosphate 2000 mg 2,000 mg UNSCH PRN PO/TUBE SEE LABEL COMMENTS Last administered on 07/27/16 16:56; Start 07/20/16 at 04:45; Stop 07/28/16 at 07:29 ; Status DC Potassium Phosphate 30 mmol/ Sodium Chloride 260 ml @ 42 mls/hr UNSCH PRN IV SEE LABEL COMMENTS Last administered on 07/24/16 11:28; Start 07/20/16 at 04:45; Stop 07/28/16 at 07:29; Status DC Sodium Chloride 1,000 ml @ 999 mls/hr BOLUS ONCE IV Last administered on 08:35; Start 07/20/16 at 08:00; Stop 07/20/16 at 09:00; Status DC Metronidazole 100 ml @ 100 mls/hr Q8H IV Last administered on 07/20/16 15:51; Start 07/20/16 at 09:00; Stop 07/20/16 at 17:29; Status DC Phytonadione/ Sodium Chloride (Vitamin K Inj/ NS Inj) 51 ml @ 102 mls/hr ONCE ONCE IV Last administered on 07/20/16 14:01; Start 07/20/16 at 14:00; Stop at 14:29; Status DC Phytonadione (Vitamin K Inj) 10 mg DAILY SQ Last administered on 07/22/16 07:35 ; Start 07/21/16 at 09:00; Stop 07/23/16 at 08:59; Status DC Albumin Human (Albumin 25% Inj) 25 gm Q8HR IV Last administered on 07/21/16 07: 22; Start 07/20/16 at 14:00; Stop 07/23/16 at 13:59; Status DC Iohexol (Omnipaque 350 Inj) 100 ml STK-MED ONCE IV ; Start 07/19/16 at 16:00; Stop 07/20/16 at 14:13; Status DC Bumetanide (Bumex Inj) 1 mg ONCE ONCE IV PUSH Last administered on 07/21/16 09 :00; Start 07/21/16 at 07:30; Stop 07/21/16 at 07:50; Status DC Alteplase, Recombinant (Cathflo Activase Inj) 2 mg ONCE ONCE INTRACATH Last administered on 07/21/16 09:00; Start 07/21/16 at 07:45; Stop 07/21/16 at 07:50; Status DC Ondansetron HCl (Zofran Inj) 4 mg Q8H PRN IV PUSH n/v Last administered on 08/14 08:43; Start 07/21/16 at 08:15 Hydromorphone HCl (Dilaudid Pf Inj) 0.5 mg NOW ONCE IV PUSH Last administered on 07/21/16 10:04; Start 07/21/16 at 09:30; Stop 07/21/16 at 09:31; Status DC Hydromorphone HCl (Dilaudid Pf Inj) 0.5 mg Q3H PRN IV pain 3-10 Last administered on 08/09/16 12:11; Start 07/24/16 at 11:45; Stop 08/09/16 at 14:08 ; Status DC Midazolam HCl 5 mg 5 mg STK-MED ONCE .ROUTE ; Start 07/24/16 at 18:34; Stop at 18:35; Status DC Sodium Chloride 250 ml @ As Directed STK-MED ONCE .ROUTE ; Start 07/24/16 at 18: 48; Stop 07/24/16 at 18:49; Status DC Ampicillin Sodium/ Sulbactam Sodium/ Sodium Chloride (Unasyn Inj/NS Inj) 100 ml @ 200 mls/hr Q6H IV Last administered on 08/01/16 14:29; Start 07/24/16 at 20: 00; Stop 08/01/16 at 15:00; Status DC Polyethylene Glycol (Miralax) 17 gm DAILY PO Last administered on 07/28/16 09: 23; Start 07/25/16 at 15:00 Sugammadex Sodium (Bridion Inj) 200 mg STK-MED ONCE IV PUSH ; Start 07/26/16 at 10:26; Stop 07/26/16 at 10:27; Status DC Hydromorphone HCl 1 mg 1 mg STK-MED ONCE .ROUTE Last administered on 07/26/16 10:47; Start 07/26/16 at 10:47; Stop 07/26/16 at 10:48; Status DC Potassium Chloride/Dextrose/ Sod Cl 1,000 ml @ 60 mls/hr [id number] IV Last administered on 07/27/16 11:03; Start 07/26/16 at 16:45; Stop 07/28/16 at 14:48 ; Status DC Potassium Chloride (KCl 20 Meq Premix Inj) 100 ml @ 50 mls/hr ONCE ONCE IV Last administered on 07/26/16 16:53; Start 07/26/16 at 16:45; Stop 07/27/16 at 09 :55; Status DC Iohexol 100 ml 100 ml STK-MED ONCE OTHER Last administered on 07/26/16 10:00; Start 07/26/16 at 10:00; Stop 07/26/16 at 16:58; Status DC Magnesium Sulfate/ Dextrose (Magnesium Sulfate 1 Gm Premix) 100 ml @ 100 mls/ hr Q1H IV ; Start 07/27/16 at 10:00; Stop 07/27/16 at 10:00; Status DC Potassium Phos/ Sodium Phos (K-Phos Neutral) 250 mg Q8HR PO ; Start 07/27/16 at 09:30; Stop 07/27/16 at 09:56; Status DC Propofol (Diprivan 200 Mg/20 ml Inj) 200 mg STK-MED ONCE IV ; Start 07/26/16 at 10:17; Stop 07/27/16 at 10:48; Status DC Lidocaine/ Epinephrine (Xylocaine-Epi 1%-1:100,000 Inj) 20 ml STK-MED ONCE .ROUTE ; Start 07/27/16 at 14:53; Stop 07/27/16 at 14:54; Status DC Midazolam HCl (Versed Inj) 5 mg STK-MED ONCE .ROUTE Last administered on 14:57; Start 07/27/16 at 14:57; Stop 07/27/16 at 14:58; Status DC Fentanyl Citrate (fentaNYL INJ) 250 mcg STK-MED ONCE .ROUTE ; Start 07/27/16 at 14:57; Stop 07/27/16 at 14:58; Status DC Hydromorphone HCl (Dilaudid Pf Inj) 2 mg STK-MED ONCE .ROUTE Last administered on 07/27/16 15:40; Start 07/27/16 at 15:40; Stop 07/27/16 at 15:41; Status DC Sodium Polystyrene Sulfonate (Kayexalate Liq) 15 gm ONCE ONCE PO Last administered on 07/28/16 15:43; Start 07/28/16 at 15:00; Stop 07/28/16 at 15:01 ; Status DC Potassium Chloride (KCl) 60 meq ONCE ONCE PO Last administered on 07/31/16 05 :17; Start 07/31/16 at 05:00; Stop 07/31/16 at 05:01; Status DC Sodium Chloride (NS Inj) 10 ml DAILY IRRIGATION Last administered on 08/03/16 07:52; Start 08/01/16 at 09:00; Stop 08/04/16 at 08:59; Status DC Iohexol (Omnipaque 350 Inj) 25 ml STK-MED ONCE .XX Last administered on 13:30; Start 07/31/16 at 14:08; Stop 07/31/16 at 14:09; Status DC Midazolam HCl (Versed Inj) 2 mg STK-MED ONCE .ROUTE ; Start 07/31/16 at 14:14; Stop 07/31/16 at 14:15; Status DC Fentanyl Citrate (fentaNYL INJ) 100 mcg STK-MED ONCE .ROUTE ; Start 07/31/16 at 14:14; Stop 07/31/16 at 14:15; Status DC Hydromorphone HCl (*DILAUDID PF INJ PERIprocedural ONLY) 1 mg STK-MED ONCE .ROUTE Last administered on 07/31/16 14:33; Start 07/31/16 at 14:33; Stop at 14:34; Status DC Miscellaneous Information ALL NURSING DEPARTME... UNSCH PRN XX SEE LABEL COMMENTS; Start 07/31/16 at 14:06; Stop 08/01/16 at 14:05; Status DC Sodium Chloride (NS 1000 ml Inj) 1,000 ml @ 999 mls/hr Q1H1M ONCE IV Last administered on 07/31/16 19:17; Start 07/31/16 at 19:15; Stop 07/31/16 at 20:15 ; Status DC Acetaminophen (Tylenol) 650 mg ONCE ONCE PO Last administered on 07/31/16 19: 15; Start 07/31/16 at 19:15; Stop 07/31/16 at 19:16; Status DC Potassium Chloride 30 meq 30 meq ONCE ONCE PO Last administered on 08/01/16 14:29; Start 08/01/16 at 15:00; Stop 08/01/16 at 15:01; Status DC Piperacillin Sod/ Tazobactam Sod 50 ml @ 100 mls/hr Q6H IV Last administered on 08/08/16 08:53; Start 08/01/16 at 20:00; Stop 08/08/16 at 13:48; Status DC Pharmacy Profile Note 0 ml @ 0 mls/hr UNSCH IV ; Start 08/01/16 at 15:00; Stop 08/03/16 at 12:26; Status DC Micafungin Sodium 150 mg/Sodium Chloride 100 ml @ 100 mls/hr Q24H IV Last administered on 08/03/16 15:00; Start 08/01/16 at 16:00; Stop 08/03/16 at 19:34 ; Status DC Vancomycin HCl/ Sodium Chloride (Vancomycin Inj/ NS 250 ml Inj) 250 ml @ 250 mls/hr Q12H IV Last administered on 08/03/16 06:47; Start 08/01/16 at 18:00; Stop 08/03/16 at 12:26; Status DC Miscellaneous Information SPECIFIC LAB TO BE DRAWN:VANCOMYCIN TROUGH DATE TO... ONCE ONCE XX Last administered on 08/03/16 05:45; Start 08/03/16 at 05:45; Stop 08/03/16 at 05:46; Status DC Sodium Chloride 500 ml @ 0 mls/hr NOW ONCE IV ; Start 08/01/16 at 16:30; Stop 08/01/16 at 16:31; Status DC Sodium Chloride 1,000 ml @ 999 mls/hr BOLUS STAT IV Last administered on 08/01 16:34; Start 08/01/16 at 16:23; Stop 08/01/16 at 17:23; Status DC Sodium Chloride (NS 1000 ml Inj) 1,000 ml @ 30 mls/hr Q24H IV Last administered on 08/10/16 12:16; Start 08/01/16 at 16:30; Stop 08/11/16 at 20:00 ; Status DC Diatrizoate Meglum/ Diatrizoate Sod ( Gastroview Liq) 18 ml ONCE ONCE PO Last administered on 08/02/16 06:25; Start 08/01/16 at 20:47; Stop 08/01/16 at 21:18; Status DC Propofol (Diprivan 200 Mg/20 ml Inj) 20 mg STK-MED ONCE IV ; Start 07/31/16 at 07:28; Stop 08/02/16 at 07:28; Status DC Ondansetron HCl (Zofran Inj) 4 mg STK-MED ONCE IV PUSH ; Start 07/31/16 at 07:28 ; Stop 08/02/16 at 07:28; Status DC Potassium Chloride (KCl) 30 meq ONCE ONCE PO Last administered on 08/02/16 14 :37; Start 08/02/16 at 14:15; Stop 08/02/16 at 14:17; Status DC Potassium Chloride (KCl) 60 meq ONCE ONCE PO Last administered on 08/03/16 06 :47; Start 08/03/16 at 06:15; Stop 08/03/16 at 06:16; Status DC Ursodiol (Actigall) 300 mg Q12HR PO Last administered on 08/09/16 07:45; Start 08/03/16 at 10:30; Stop 08/09/16 at 17:55; Status DC Miscellaneous Information SPECIFIC LAB TO BE OTIS... ONCE ONCE XX ; Start at 17:45; Stop 08/03/16 at 17:45; Status DC Magnesium Sulfate/ Dextrose (Magnesium Sulfate 1 Gm Premix) 100 ml @ 100 mls/ hr ONCE ONCE IV Last administered on 08/04/16 12:40; Start 08/04/16 at 11:00 ; Stop 08/04/16 at 11:59; Status DC Potassium Chloride 40 meq 40 meq ONCE ONCE PO Last administered on 08/04/16 12:40; Start 08/04/16 at 10:45; Stop 08/04/16 at 10:46; Status DC Potassium Chloride (KCl 20 Meq Premix Inj) 100 ml @ 50 mls/hr Q2H IV ; Start at 12:00; Stop 08/04/16 at 15:59; Status DC Iohexol (Omnipaque 350 Inj) 95 ml STK-MED ONCE IV Last administered on 10:43; Start 08/02/16 at 10:43; Stop 08/06/16 at 13:58; Status DC Insulin Detemir 5 units 5 units Q12HR SQ Last administered on 08/15/16 08:48; Start 08/07/16 at 10:00 Potassium Chloride (KCl 10 Meq Premix Inj) 100 ml @ 100 mls/hr Q1H IV Last administered on 08/08/16 04:35; Start 08/07/16 at 22:15; Stop 08/08/16 at 01:14 ; Status DC Levofloxacin (Levaquin) 750 mg DAILY PO Last administered on 08/13/16 09:17; Start 08/08/16 at 14:00; Stop 08/13/16 at 13:59; Status DC Hydromorphone HCl (Dilaudid Pf Inj) 0.25 mg Q3H PRN IV pain 3-10 Last administered on 08/11/16 17:55; Start 08/09/16 at 15:10; Stop 08/11/16 at 20:01 ; Status DC Ursodiol (Actigall) 300 mg BIDAC PO Last administered on 08/15/16 05:54; Start 08/10/16 at 07:00 Amylase/Lipase/ Protease (Creon 12-38-60) 1 cap TIDAC PO Last administered on 08:47; Start 08/10/16 at 08:00 Pantoprazole Sodium (Protonix) 40 mg DAILY PO Last administered on 08/15/16 08 :47; Start 08/11/16 at 09:00 Hydromorphone HCl (Dilaudid Pf Inj) 0.5 mg Q3H PRN IV pain 3-10 IF NPO Last administered on 08/15/16 08:46; Start 08/11/16 at 21:10; Stop 08/15/16 at 09:22 ; Status DC Morphine Sulfate (Oramorph Sr) 30 mg Q12HR PO ; Start 08/15/16 at 09:30; Status UNV Morphine Sulfate (Msir) 15 mg Q4H PRN PO pain; Start 08/15/16 at 09:30; Status UNV A/P Assessment and Plan 46-year-old female: Fever -No fever since that one episode on -Workup so far negative. -sp far blood cultures negative. S/P Septic shock Klebsiella pneumonia bacteremia, cholangitis: now recent culture growing citrobacter - Antibiotics per infectious disease. -T down, WBC down - patient on Levaquin po till 08/13. Acute cholangitis/Liver cirrhosis: cholangitis. ERCP suggestive of primary sclerosing cholangitis. Per Pathologist liver biopsy not consistent with PSC, more suggestive of Cirrhosis. -GI ff. Status post ERCP 07/26/16> left hepatic tree stricture, continue antibiotic, S/P liver biopsy. - S/P biliary drain placement on 07/31/16 by IR - Regular diet as tolerated. Biliary drain is capped per GI since 08/04. 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 she has been stable and very comfortable. d/c IV dilaudid and per recommendations of palliative care start morphine SR 30 mg PO BID and IR 15 mg PO Q4H PRN for breakthrough pain. - Palliative care consulted. Unable to transfer patient. Once medically stable condition discharge to home. -Gi ordered CT scan of ab/pel. patient clinically stable. will d/w GI in regards to management. Coagulopathy: corrected Likely secondary to liver disease. - Monitor CBC and coags. s/p transfusion 3 u FFP and Vitamin K 10mg IV x1 on 07/20 for INR 11 now INR 1.0 - INR good Hypokalemia: Replace and corrected DM type 2. improve po. continue Levemir 5 units bid. and increase gradually as po improve. continue SS GI prophylaxis: PPI. Stool softener PRN for constipation. Discharge Planning If blood cultures are negative for 48 hours remains afebrile she can be discharged then. Will d/w GI in regards to discharge. Jayshree Whitehead MD Aug 15, 2016 09:38
[2016-08-15] MEDS ORDERED: DIATRIZOATE MEGLUM/DIATRIZOATE SOD 9 ML CUP PO ONE (09:45)
[2016-08-15] MEDS ORDERED: MORPHINE SULFATE 30 MG CONTROLLED RELEASE TAB PO SCH (10:00)
[2016-08-15 12:00] VITALS: BP 122/78; PULSE 95; RESP 12; TEMP 97.8; O2SAT 99
--- NOTE | 2016-08-15 13:52 | HHI.HCPN ---
Reason for visit a. To assist with evaluation and management of symptoms including: pain b. To assist medical decision maker(s) with: better understanding of current medical conditions; weighing benefits/burdens of medical treatment options; making medical treatment decisions. . Subjective/Interval History INTERVAL NOTE: No new pain. Patient is up in chair. She remains afebrile. White count today 8.2, and transaminase enzymes changed only slightly. Dr. Whitehead has initiated long-acting opiate today.. . Advance Directives Living Will: Never completed Health Care Surrogate: Never completed Durable Power of Mixed Crop Farmer: Never completed Objective Vital Signs Date Time Temp Pulse Resp B/P Pulse Ox O2 Delivery O2 Flow Rate FiO2 08/15/16 12:00 97.8 95 12 122/78 99 08/15/16 08:00 98.2 97 15 117/74 99 08/15/16 00:00 96.6 85 18 108/65 100 08/14/16 20:00 97.7 98 18 127/77 98 08/14/16 20:00 100 08/14/16 20:00 100 08/14/16 18:33 17 08/14/16 16:00 97.8 88 16 118/79 99 Intake & Output 08/15/16 08/15/16 07:00 19:00 Intake Total 800 ml Output Total 1950 ml Balance -1150 ml Intake Oral 800 ml Output Urine Total 1950 ml # Bowel Movements 0 Physical Exam CONSTITUTIONAL/GENERAL: This is a chronically ill-appearing patient, in some pain when moving in the bed. Tearful at times. TUBES/LINES/DRAINS: Peripheral IV, transcutaneous biliary drain NECK: Trachea midline. Supple, nontender. No palpable thyroid enlargement or nodularity. CARDIOVASCULAR: Regular rate and rhythm without murmurs, gallops, or rubs. No JVD. Peripheral pulses symmetric. RESPIRATORY/CHEST: Symmetric, unlabored respirations. Clear to auscultation. Breath sounds equal bilaterally. No wheezes, rales, or rhonchi. GASTROINTESTINAL: Abdomen soft, and nondistended. Moderate tenderness diffusely , right side worse than left; no guarding or rebound. Some right flank tenderness. Bowel sounds present. GENITOURINARY: Without palpable bladder distension. MUSCULOSKELETAL: Extremities without clubbing, cyanosis, or edema. No joint tenderness or effusion noted. No calf tenderness. No mottling or clubbing. NEUROLOGICAL: Awake and alert. Motor and sensory grossly within normal limits. Follows commands. Cognitively sharp. Moves all extremities. PSYCHIATRIC: Appears depressed at times. . Diagnostic Tests Laboratory Laboratory Tests Test 08/13/16 08/14/16 08/15/16 09:49 04:54 04:10 Urine Color YELLOW (YELLW/STRAW) Urine Turbidity CLEAR (CLEAR) Urine pH 6.5 (5.0-8.5) Urine Specific [place]well 1.010 (1.002-1.035) Urine Protein TRACE mg/dL (NEG-TRACE) Urine Glucose (UA) 70 mg/dL (NEG) Urine Ketones NEG mg/dL (NEG) Urine Occult Blood NEG (NEG) Urine Nitrite NEG (NEG) Urine Bilirubin SMALL (NEG) Urine Urobilinogen LESS THAN 2.0 MG/DL (LESS THAN 2.0) Urine Leukocyte Esterase NEG (NEG) Urine RBC 2 /hpf (0-3) Urine WBC 2 /hpf (0-5) Urine Squamous Epithelial <1 /hpf (0-5) Cells Urine Calcium Oxalate Crystals MOD /hpf (NONE) Urine Mucus FEW /lpf (OCC) Microscopic Urinalysis Comment CULT NOT INDICATED White Blood Count 9.9 TH/MM3 8.2 TH/MM3 (4.0-11.0) (4.0-11.0) Red Blood Count 3.85 MIL/MM3 3.39 MIL/MM3 (4.00-5.30) (4.00-5.30) Hemoglobin 10.9 GM/DL 9.4 GM/DL (11.6-15.3) (11.6-15.3) Hematocrit 32.8 % 29.2 % (35.0-46.0) (35.0-46.0) Mean Corpuscular Volume 85.1 FL 86.0 FL (80.0-100.0) (80.0-100.0) Mean Corpuscular Hemoglobin 28.3 PG 27.8 PG (27.0-34.0) (27.0-34.0) Mean Corpuscular Hemoglobin 33.2 % 32.3 % Concent (32.0-36.0) (32.0-36.0) Red Cell Distribution Width 20.9 % 20.8 % (11.6-17.2) (11.6-17.2) Platelet Count 471 TH/MM3 408 TH/MM3 (150-450) (150-450) Mean Platelet Volume 10.3 FL 10.5 FL (7.0-11.0) (7.0-11.0) Sodium Level 137 MEQ/L 136 MEQ/L (136-145) (136-145) Potassium Level 3.6 MEQ/L 3.8 MEQ/L (3.5-5.1) (3.5-5.1) Chloride Level 101 MEQ/L 102 MEQ/L (98-107) (98-107) Carbon Dioxide Level 27.9 MEQ/L 27.8 MEQ/L (21.0-32.0) (21.0-32.0) Anion Gap 8 MEQ/L (5-15) 6 MEQ/L (5-15) Blood Urea Nitrogen 9 MG/DL (7-18) 11 MG/DL (7-18) Creatinine 0.29 MG/DL 0.28 MG/DL (0.50-1.00) (0.50-1.00) Estimat Glomerular Filtration 249 ML/MIN 259 ML/MIN Rate (>89) (>89) Random Glucose 166 MG/DL 326 MG/DL (74-106) (74-106) Calcium Level 9.3 MG/DL 8.3 MG/DL (8.5-10.1) (8.5-10.1) Total Bilirubin 2.9 MG/DL 2.2 MG/DL (0.2-1.0) (0.2-1.0) Direct Bilirubin 2.1 MG/DL 1.6 MG/DL (0.0-0.2) (0.0-0.2) Indirect Bilirubin 0.8 MG/DL (0.0-0.8) Aspartate Amino Transf 156 U/L (15-37) 117 U/L (15-37) (AST/SGOT) Alanine Aminotransferase 84 U/L (10-53) 71 U/L (10-53) (ALT/SGPT) Alkaline Phosphatase 1271 U/L 1052 U/L (45-117) (45-117) Total Protein 7.0 GM/DL 5.8 GM/DL (6.4-8.2) (6.4-8.2) Albumin 2.6 GM/DL 2.1 GM/DL (3.4-5.0) (3.4-5.0) Result Diagram: 08/15/1640908/15/16 041 Microbiology Microbiology Date/Time Procedure Status Source Growth 08/13/16 11:05 Aerobic Blood Culture - Preliminary Resulted Blood Peripheral NO GROWTH IN 2 DAYS 08/13/16 11:05 Anaerobic Blood Culture - Preliminary Resulted Blood Peripheral NO GROWTH IN 2 DAYS 08/13/16 11:12 Aerobic Blood Culture - Preliminary Resulted Blood Peripheral NO GROWTH IN 2 DAYS 08/13/16 11:12 Anaerobic Blood Culture - Preliminary Resulted Blood Peripheral NO GROWTH IN 2 DAYS Procedures ERCP MRCP Biliary drain . Assessment and Plan Disease Oriented Problem List: (1) abdominal pain, acute and chronic (2) recurrent sepsis/cholangitis, with Klebsiella and Citrobacter bacteremias during this hospitalization (3) biliary strictures/obstruction, with sclerosing cholangitis (4) hepatic cirrhosis/fibrosis/chronic hepatitis (5) nephrolithiasis (6) non-Hodgkin's lymphoma 2004, no known residual disease (7) chronic anemia Symptom Scale: (1) pain 0-10 Scale: 4 (2) depression 0-10 Scale: Unable to quantify Pertinent Non-Medical Issues Psychosocial: , disabled, 2 daughters (22 years and 16 years old), lives with friend Doug German. 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 At the time of the initial consultation, she tells me that she would want to designate her daughter Aisha Tellez and her roommate/friend Doug German as co-decision- makers (co-healthcare surrogates) at this time. Ethical issues impacting care: None. . Prognosis The patient has chronic illness, including diabetes, chronic anemia, chronic pain, and gradually worsening hepatic cirrhosis and sclerosing cholangitis. She also has had recurrent sepsis episodes. With continued aggressive care, it is likely that she can live for some period of months or years. . Code Status: Full Code Plan * FULL CODE * DECISION-MAKING: The patient has capacity for decision-making. At the time of the initial consultation, she tells me that she would want to designate her daughter Aisha Tellez and her roommate/friend Doug German as co-decision- makers (co-healthcare surrogates) at this time. * GOALS: The patient wants to continue aggressive care; she would like her pain better managed when she eventually leaves the hospital. * SYMPTOMS: The patient's abdominal pain is acute and chronic. Prior trials of oxycodone and Lortab/hydrocodone at home have failed to manage her pain. A trial of transdermal fentanyl resulted in intolerable nausea. I discussed with her the advantages of being on a long-acting medication for pain, and she is willing to try that.. === When it is time for her to go home, she could be kept on a long-acting opiate for her pain, and a short-acting dose PRN for breakthrough pain. She was started on OxyContin 08/15/16. * Palliative Care will continue to check on the patient intermittently while she is hospitalized here. . Attestation To help prompt me to consider important information that might be impacting today's encounter and assessment, information from prior notes written by myself or my colleagues may have been "brought forward" into today's note. My signature on this note, however, is an attestation that I personally performed the exam, history, and/or decision-making noted today, and, unless otherwise indicated, the interactions with patient, family, and staff as well as the review of records all occurred today. I also attest that the listed assessment and stated plan reflect my best clinical judgment today based on the combination of historical information, prior notes, and today's exam/ interactions. When time spent is documented, it refers only to time spent today by the signer, or if indicated, combined time spent today by collaborating physician/nurse practitioner. Denise Hewitt MD Aug 15, 2016 13:52
[2016-08-15] MEDS: oxyCODONE HCL 10 MG CONTROLLED RELEASE TAB PO SCH ×2 (14:31→22:00)
[2016-08-15 16:00] VITALS: BP 110/74; PULSE 96; RESP 14; TEMP 98.9; O2SAT 100
[2016-08-15] MEDS ORDERED: IOHEXOL 350 MG/ML 10 ML VIAL (for RAD DIAG) IV ONE (18:51)
--- NOTE | 2016-08-15 19:13 | RADRPT ---
EXAM DATE/TIME: 08/15/2016 17:13 [facility] COMPARISON: CT ABDOMEN & PELVIS W CONTRAST, August 02, 2016, 10:43. INDICATIONS : History of primary sclerosis cholangitis with a rising LFTs IV CONTRAST: 93 cc Omnipaque 350 (iohexol) IV ORAL CONTRAST: Prescribed oral contrast ingested. RADIATION DOSE: 4.65 CTDIvol (mGy) MEDICAL HISTORY : Non-Hodgkin's lymphoma. Diabetes. SURGICAL HISTORY : Splenectomy. ENCOUNTER: Initial ACUITY: 1 day PAIN SCALE: 0/10 LOCATION: Abdomen TECHNIQUE: Volumetric scanning of the abdomen and pelvis was performed. Using automated exposure control and ad justment of the mA and/or kV according to patient size, radiation dose was kept as low as reasonably achievable to obtain optimal diagnostic quality images. FINDINGS: The liver is enlarged and nodular in contour consistent with cirrhosis. An internal/external biliary drain is identified and appears to be in good position. No biliary ductal dilatation is noted. Min imal ascites is noted along the edge of the liver. The gallbladder is nondistended and unchanged in appearance compared to the previous examination. Pneumobilia is again noted. The patient is status post splenectomy. A tiny residual left pleural effusion is noted. The visualized lung bases are elisha ar. The main pancreatic duct remains mildly dilated. There is no pancreatic mass or acute pancreati tis. The adrenal glands are normal bilaterally. There is a stable calcified lower pole nonobstructi ng left renal calculus. The kidneys demonstrate no solid mass or hydronephrosis. The abdominal aorta and inferior vena cava are unremarkable. There is no paraaortic, retroperitoneal or mesenteric lymp hadenopathy. No pelvic lymphadenopathy is noted. The urinary bladder is unremarkable. No bowel obs truction is noted. The bony structures are unremarkable. CONCLUSION: 1. Enlarged nodular liver consistent with cirrhosis. 2. No evidence of biliary ductal dilatation status post placement of internal/external biliary drain which appears to be adequate in position. 3. Mild pancreatic ductal dilatation. 4. Tiny left pleural effusion. 5. 8 mm calcified nonobstructing lower pole left renal calculus. 6. Minimal ascites. Tunde Hdez MD on August 15, 2016 at 18:47 Board Certified Radiologist. This report was verified electronically.
[2016-08-15 20:00] VITALS: BP 107/74; PULSE 95; PULSE 97; RESP 17; TEMP 99.5; O2SAT 98
[2016-08-16] VITALS: BP 112/76; PULSE 94; RESP 17; TEMP 96.7; O2SAT 98
[2016-08-16] MEDS: INSULIN NovoLIN REGULAR SUPPLEMENTAL SCALE SQ SCH ×3 (03:15→15:35)
[2016-08-16] MEDS: CHLORHEXIDINE GLUCONATE 2 % 1 PACK (2 CLOTHS) TOP SCH (03:24)
[2016-08-16 04:00] VITALS: BP 113/75; PULSE 85; RESP 17; TEMP 96.3; O2SAT 98
[2016-08-16] MEDS: URSODIOL 300 MG CAP PO SCH ×2 (05:49→15:34)
[2016-08-16] MEDS: oxyCODONE HCL 10 MG CONTROLLED RELEASE TAB PO SCH ×2 (05:49→15:24)
[2016-08-16 08:00] VITALS: BP 104/70; PULSE 85; RESP 17; TEMP 97.4; O2SAT 100
[2016-08-16] MEDS ORDERED: OXYC-392 PO (08:59)
[2016-08-16] MEDS ORDERED: OXYC-259 PO (08:59)
--- NOTE | 2016-08-16 10:46 | HHI.GIFU ---
Subjective Remarks Ambulating in room without distress. Tolerating diet. No n/v. States she always has pain. She is concerned about being discharged today- not sure how she will be able to follow up, as her GI physician is in [place]. (Aliyah Mosher) Objective Vitals I&O Vital Signs Date Time Temp Pulse Resp B/P Pulse Ox O2 Delivery O2 Flow Rate FiO2 08/16/16 08:00 97.4 85 17 104/70 100 08/16/16 04:00 96.3 85 17 113/75 98 08/16/16 00:00 96.7 94 17 112/76 98 08/15/16 20:00 95 08/15/16 20:00 99.5 97 17 107/74 98 08/15/16 16:00 98.9 96 14 110/74 100 08/15/16 12:00 97.8 95 12 122/78 99 I/O 08/15/16 08/15/16 08/15/16 08/16/16 08/16/16 08/16/16 07:00 15:00 23:00 07:00 15:00 23:00 Intake Total 480 ml 960 ml 480 ml 240 ml Output Total 950 ml Balance -470 ml 960 ml 480 ml 240 ml Intake Oral 480 ml 960 ml 480 ml 240 ml IV Total 0 ml 0 ml 0 ml Output Urine Total 950 ml # Voids 5 3 4 # Bowel Movements 0 2 Laboratory Date/Time Procedure Status Source Growth 08/13/16 11:12 Aerobic Blood Culture - Preliminary Resulted Blood Peripheral NO GROWTH IN 2 DAYS 08/13/16 11:12 Anaerobic Blood Culture - Preliminary Resulted Blood Peripheral NO GROWTH IN 2 DAYS Imaging Last Impressions Abdomen/Pelvis CT 08/14/16 0000 Signed Impressions: Service Date/Time: Monday, August 15, 2016 17:13 - CONCLUSION: 1. Enlarged nodular liver consistent with cirrhosis. 2. No evidence of biliary ductal dilatation status post placement of internal/external biliary drain which appears to be adequate in position. 3. Mild pancreatic ductal dilatation. 4. Tiny left pleural effusion. 5. 8 mm calcified nonobstructing lower pole left renal calculus. 6. Minimal ascites. Tunde Hdez MD Chest X-Ray 08/13/16 0000 Signed Impressions: Service Date/Time: Saturday, August 13, 2016 12:12 - CONCLUSION: Small left pleural effusion with minimal consolidative changes left base. Effusion has increased slightly from 04/26/2016. You Morales MD FACR Bile Duct Drainage 07/31/16 0000 Signed Impressions: Service Date/Time: Sunday, July 31, 2016 13:05 - CONCLUSION: Uncomplicated biliary stent placement as above. 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 Adeel Esteban MD Cholangiopancreatography MRI 07/30/16 0000 Signed Impressions: Service Date/Time: Saturday, July 30, 2016 13:21 - CONCLUSION: 1. Dilatation of the left intrahepatic biliary ducts with multiple filling defects likely related to air. There does appear to be narrowing of the central biliary ducts. The common bile duct is not clearly recognizable. The configuration at the left ducts appears similar to the prior examination. 2. Very prominent hypertrophy of the left lobe and atrophy of the right lobe likely secondary to cirrhosis. The liver does appear enlarged. Mele Cuba MD Liver Biopsy CT 07/27/16 0000 Signed Impressions: Service Date/Time: Wednesday, July 27, 2016 15:47 - CONCLUSION: Uncomplicated CT guided biopsy of the liver. Mele Yoo MD GI Procedure 07/26/16 0000 Signed Impressions: Service Date/Time: July 10:22 - CONCLUSION: ERCP as above. Feng Rod MD Head CT 07/19/16 0000 Signed Impressions: Service Date/Time: July 16:01 - CONCLUSION: 1. No evidence of acute intracranial pathology. No masses are identified. Nestor Isabel MD Physical Exam HEENT: Normocephalic; atraumatic, + jaundice CHEST: CTA CARDIAC: RRR ABDOMEN: Soft, non distended, mild tenderness; no hepatosplenomegaly; bowel sounds x 4 quadrants. Biliary drain capped EXTREMITIES: No clubbing, cyanosis, or edema. SKIN: Normal; no rash; + jaundice. TANKER DRIVER: No focal deficits; A&O x3. (Aliyah Mosher) Assessment and Plan Plan ASSESSMENT: - Sclerosing Cholangitis/Biliary Strictures with sepsis/fever, N/V/Abdominal pain. She is currently following with [facility]. Abdomen/Pelvis CT (07/19/16)----> Continued cirrhotic appearance of the liver. Some areas of scarring or volume loss throughout the right lobe similar to the previous study. No definite solid mass is seen. Status post splenectomy. No significant retroperitoneal adenopathy. MRCP (07/23/16)----> 1. Abnormally dilated left intrahepatic bile ducts with caliber change near the ankit hepatis at the confluence. No mass is appreciated in this area on this examination or the recent CT of the abdomen. Therefore, etiology is nonspecific. Stricture or small mass are the differential diagnostic considerations. These ducts have a similar appearance on the August 2014 examination. Suggest correlation with the clinical history. 2. Normal right intrahepatic bile ducts and common bile duct. Gallbladder is decompressed but demonstrates severe diffuse wall edema which may be related to the portal hypertension and chronic liver disease. 3. Abnormally dilated main pancreatic duct in the tail with associated dilated side branches. There is abrupt caliber change in the mid body. The appearance is similar to multiple prior studies dating back to 2014. I do not see a mass as the cause and since there has been no significant change this may be related to a stricture. Segmental IPMN is also a consideration but felt less likely. Suggest attention to this at followup imaging to confirm stability. 4. The liver demonstrates features diagnostic of cirrhosis. There is a moderate volume of free fluid within the abdomen and pelvis likely related to portal hypertension. There are also small bilateral pleural effusions. Bacteremia with Klebsiella, GNR. [facility] declined patient for transfer because they feel there is nothing they will do differently than we are doing here with regards to her care. S/P ERCP (07/26/16)-----> Ampulla C/W previous sphincterotomy, some sludge removed by balloon, free flow of bile, not able to see the left hepatic tree. No dye in that area, possible stricture, possible stricture in the left hepatic duct. 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 Pt had worsening pain, high fevers, hypotension, tachycardia on 08/01 and her abx were changed by ID to Zosyn and Vanco. Rpt Bcx from 08/01 with Citrobacter species. Rpt. Abdomen/Pelvis CT (08/02/16)-------> 1. Cirrhotic liver. 2. Biliary drain in place from the left lobe. There is pneumobilia seen. 3. Non-obstructing 8 mm left renal stone. 4. Status post splenectomy. 5. Mild ascites in the pericolic regions and in the pelvis. 6. Dilatation of the pancreatic duct and the pancreatic body. The pancreatic head is unremarkable. 7. Mild left pleural effusion. There is areas of atelectasis or consolidation at the lung bases bilaterally. She has improved since abx changed. Biliary drain capped on 08/04/16. States her pain has been worse for the past two days. Nausea without vomiting, tolerating diet. Her LFTs are trending down and she seems to be tolerating capping of biliary drain. She continues to have chronic abdominal pain. Rpt. Abdomen/ Pelvis CT (08/14/16)----> 1. Enlarged nodular liver consistent with cirrhosis. 2. No evidence of biliary ductal dilatation status post placement of internal/external biliary drain which appears to be adequate in position. 3. Mild pancreatic ductal dilatation. 4. Tiny left pleural effusion. 5. 8 mm calcified nonobstructing lower pole left renal calculus. 6. Minimal ascites. Creon, Ursodiol. She has been declined for transfer at [facility] and [facility]. [facility] will see patient once Biliary drain has been in place for 6 weeks. We have also placed referral to [place] as outpatient for second opinion. - Sepsis, Bacteremia, Fevers, Leukocytosis. S/P tx. RESOLVED. - Liver cirrhosis. S/P liver biopsy 07/27/16, results pending. S/P liver biopsy ( 2013) at that time of both her normal liver parenchyma and her liver mass. The normal liver parenchyma revealed chronic hepatitis with bridging fibrosis and cirrhosis grade 2/4, stage 3-4/4 exhibiting bile duct tubular damage and ductopenia, chronic hepaititis with bridging fibrosis. Of note, specimen #1 suggested a differential d diagnosis of primary biliary cirrhosis vs. drug induced disease. The histopathology did not suggest that of primary sclerosing cholangitis. The liver mass suggested chronic hepatitis with bridging fibrosis 2/4, stage III/4. Of note, she was evaluated by [facility], but states she was told that her MELD score was too low to be considered for liver transplant. AFP 9.5, Ceruloplasmin 46. MARCELLO negative, ASMA negative, AMA <20.0, Ferritin 159, Iron sat 17.9%. Rpt. Liver biopsy (07/30/16) with severe chronic hepatitis with bridging fibrosis and cirrhosis (grade 2/4; stage 3-4/4) with associated bile stasis, fatty change and histopathologic features most suggestive of drug induced liver disease (including alcohol)- There is no evidence of primary biliary cirrhosis or primary sclerosing cholangitis in this biopsy material. Cytoplasmic inclusions suggestive of Alpha-antitrypsin are prsent as may be observed in cirrhotic livers however it is suggested that serologic studies be performed. The pathologic features present in this biopsy are different from that observed in the liver biopsy of 01/19/14. Of note, alpha one antitrypsin 291 - Hx of abnormal imaging of the gallbladder. HIDA (04/27/16)----> Nonvisualization of the gallbladder. ADDENDUM: Delayed imaging of the abdomen documents an ovoid area of activity in the right upper quadrant in the expected location of the gallbladder based on prior cross-sectional imaging studies. Delayed visualization the gallbladder should exclude complete cystic duct obstruction. However, based on prior imaging studies, the gallbladder demonstrated severe diffuse wall edema. S/P GS evaluation during last admission who did not feel this was contributing to her symptoms and did not recommend cholecystectomy. AFP 9.5, Hepatitis panel negative, alpha 1 antitrypsin 291, ceruloplasmin negative marcello negative, asma negative, ama < 20.0 Rpt. Liver biopsy (07/30/16) with severe chronic hepatitis with bridging fibrosis and cirrhosis (grade 2/4; stage 3-4/4) with associated bile stasis, fatty change and histopathologic features most suggestive of drug induced liver disease ( including alcohol)- There is no evidence of primary biliary cirrhosis or primary sclerosing cholangitis in this biopsy material. Cytoplasmic inclusions suggestive of Alpha-antitrypsin are prsent as may be observed in cirrhotic livers however it is suggested that serologic studies be performed. The pathologic features present in this biopsy are different from that observed in the liver biopsy of 01/19/14. LFT improved. However, previous ERCPs consistent with sclerosing cholangitis. - Hx of non-Hodgkin's lymphoma and completed chemotherapy in 2005, but has had an ongoing problem with biliary strictures and sclerosing cholangitis. Plan: - Okay to d/c home from GI standpoint - TOO - Cont. Ursodiol - Cont. PPI - [facility] has agreed to see patient after biliary drain has been in place for 6 weeks (any procedure they would do would require removal of biliary drain and they would like to wait 6 weeks to allow tract to form, to reduce the risk of biliary leak. - Outpatient referral to [place] for second opinion - FU with [facility] as outpatient (her primary qa developer at this time) - Instructed to notify her physician of any signs of infection (fever/chills/etc ) - Pt seen and examined by Dr. Newberry and myself and this note is written on his behalf (Aliyah Mosher) Physician Comments Patient seen and examined Agree with above Continue with current supportive care Monitor labs Okay for discharge to follow-up with GI and hopefully will be able to get her to a tertiary care center (Markus Newberry MD) Aliyah Mosher Aug 16, 2016 10:46 Markus Newberry MD Aug 16, 2016 19:12
[2016-08-16] MEDS: LIPASE/PROTEASE/AMYLASE (12,000/38,000/60,000) CAP PO SCH ×2 (10:52→15:35)
[2016-08-16] MEDS: PANTOPRAZOLE SOD 40 MG DELAYED RELEASE TAB PO SCH (10:52)
[2016-08-16] MEDS: POLYETHYLENE GLYCOL 17 GM PKG PO SCH (10:52)
[2016-08-16] MEDS: INSULIN DETEMIR 100 UNITS/ML VIAL SQ SCH (10:53)
--- NOTE | 2016-08-16 11:36 | HHI.DCPOC ---
Discharge Care Plan Diagnosis: (1) blocked biliary tube (2) recurrent sepsis/cholangitis, with Klebsiella and Citrobacter bacteremias during this hospitalization (3) biliary strictures/obstruction, with sclerosing cholangitis (4) pain (5) hepatic cirrhosis/fibrosis/chronic hepatitis (6) abdominal pain, acute and chronic Goals to Promote Your Health * To prevent worsening of your condition and complications * To maintain your health at the optimal level Directions to Meet Your Goals Take your medications as prescribed Follow your dietary instruction Follow activity as directed Keep your appointments as scheduled Take your immunizations and boosters as scheduled If your symptoms worsen call your PCP, if no PCP go to Urgent Care Center or Emergency Room Smoking is Dangerous to Your Health. Avoid second hand smoke Call the 24-hour hour crisis hotline for domestic abuse at Jayshree Whitehead MD Aug 16, 2016 11:36
--- NOTE | 2016-08-16 11:36 | HHI.DS ---
Discharge Summary Admission Date Jul 19, 2016 at 14:30 Discharge Date: Aug 16, 2016 Admitting Diagnosis septic shock (1) recurrent sepsis/cholangitis, with Klebsiella and Citrobacter bacteremias during this hospitalization Diagnosis: Principal (2) biliary strictures/obstruction, with sclerosing cholangitis Diagnosis: Principal (3) hepatic cirrhosis/fibrosis/chronic hepatitis Diagnosis: Secondary (4) Septic shock ICD Code: A41.9 Diagnosis: Principal Procedures Biliary drain placement. Brief History - From Admission The patient is 45 years old with a past medical history of non-Hodgkin's lymphoma status post chemotherapy in 2005, primary sclerosing cholangitis and strictures with multiple ERCPs in the past and diabetes mellitus. She presented to [facility] ED with abdominal pain generalized for, several months associated with intractable nausea and vomiting. In addition, the patient had one episode of non-bloody diarrhea today. CBC/BMP: 08/15/16 0410 08/15/16 0410 Significant Findings Laboratory Tests Test 08/14/16 08/15/16 04:54 04:10 Red Blood Count 3.85 MIL/MM3 3.39 MIL/MM3 (4.00-5.30) (4.00-5.30) Hemoglobin 10.9 GM/DL 9.4 GM/DL (11.6-15.3) (11.6-15.3) Hematocrit 32.8 % 29.2 % (35.0-46.0) (35.0-46.0) Red Cell Distribution Width 20.9 % 20.8 % (11.6-17.2) (11.6-17.2) Platelet Count 471 TH/MM3 (150-450) Creatinine 0.29 MG/DL 0.28 MG/DL (0.50-1.00) (0.50-1.00) Random Glucose 166 MG/DL 326 MG/DL (74-106) (74-106) Total Bilirubin 2.9 MG/DL 2.2 MG/DL (0.2-1.0) (0.2-1.0) Direct Bilirubin 2.1 MG/DL 1.6 MG/DL (0.0-0.2) (0.0-0.2) Aspartate Amino Transf 156 U/L (15-37) 117 U/L (15-37) (AST/SGOT) Alanine Aminotransferase 84 U/L (10-53) 71 U/L (10-53) (ALT/SGPT) Alkaline Phosphatase 1271 U/L 1052 U/L (45-117) (45-117) Albumin 2.6 GM/DL 2.1 GM/DL (3.4-5.0) (3.4-5.0) Calcium Level 8.3 MG/DL (8.5-10.1) Total Protein 5.8 GM/DL (6.4-8.2) Imaging Last Impressions Lower Extremity Ultrasound 08/16/16 0000 Signed Impressions: Service Date/Time: July 12:57 - CONCLUSION: No evidence of right lower extremity DVT. Parminder Corbin MD Abdomen/Pelvis CT 08/14/16 0000 Signed Impressions: Service Date/Time: Monday, August 15, 2016 17:13 - CONCLUSION: 1. Enlarged nodular liver consistent with cirrhosis. 2. No evidence of biliary ductal dilatation status post placement of internal/external biliary drain which appears to be adequate in position. 3. Mild pancreatic ductal dilatation. 4. Tiny left pleural effusion. 5. 8 mm calcified nonobstructing lower pole left renal calculus. 6. Minimal ascites. Tunde Hdez MD Chest X-Ray 08/13/16 0000 Signed Impressions: Service Date/Time: Saturday, August 13, 2016 12:12 - CONCLUSION: Small left pleural effusion with minimal consolidative changes left base. Effusion has increased slightly from 04/26/2016. You Morales MD FACR Bile Duct Drainage 07/31/16 0000 Signed Impressions: Service Date/Time: Sunday, July 31, 2016 13:05 - CONCLUSION: Uncomplicated biliary stent placement as above. 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 Adeel Esteban MD Cholangiopancreatography MRI 07/30/16 0000 Signed Impressions: Service Date/Time: Saturday, July 30, 2016 13:21 - CONCLUSION: 1. Dilatation of the left intrahepatic biliary ducts with multiple filling defects likely related to air. There does appear to be narrowing of the central biliary ducts. The common bile duct is not clearly recognizable. The configuration at the left ducts appears similar to the prior examination. 2. Very prominent hypertrophy of the left lobe and atrophy of the right lobe likely secondary to cirrhosis. The liver does appear enlarged. Mele Cuba MD Liver Biopsy CT 07/27/16 0000 Signed Impressions: Service Date/Time: Wednesday, July 27, 2016 15:47 - CONCLUSION: Uncomplicated CT guided biopsy of the liver. Mele Yoo MD GI Procedure 07/26/16 0000 Signed Impressions: Service Date/Time: July 10:22 - CONCLUSION: ERCP as above. Feng Rod MD Head CT 07/19/16 0000 Signed Impressions: Service Date/Time: July 16:01 - CONCLUSION: 1. No evidence of acute intracranial pathology. No masses are identified. Nestor Isabel MD PE at Discharge GENERAL: in nad CARDIOVASCULAR: Regular rate and rhythm without murmurs, gallops, or rubs. RESPIRATORY: Breath sounds equal bilaterally. No accessory muscle use. GASTROINTESTINAL: Positive diffuse tenderness with palpation. Negative for any peritoneal signs. Drain in place. Wound is dry clean and intact. Pt update on day of discharge f/u for acute cholangitis and chronic abdominal pain. Patient continues to c/o same chronic abdominal pain. Denied any N/V. She is ambulating and eating PO intake without any difficulty. Looks very comfortable. patient stated she is okay with going home today. + right foot swelling. Otherwise no complaints. Hospital Course Septic shock -due to Klebsiella pneumonia bacteremia, cholangitis:recent culture growing citrobacter -sepsis protocol followed. patient given IVFs, IV antibiotics and supportive care. blood cultures obtained and + Klebsiella penumonia. -repeat blood cultures grew citrobacter. - infectious disease ff. -finished antibiotic treatment on 08/13. Acute cholangitis/Liver cirrhosis: cholangitis. ERCP suggestive of primary sclerosing cholangitis. Per Pathologist liver biopsy not consistent with PSC, more suggestive of Cirrhosis. -GI ff. Status post ERCP 07/26/16> left hepatic tree stricture, continue antibiotic, S/P liver biopsy. - S/P biliary drain placement on 07/31/16 by IR - Biliary drain is capped per GI since 08/04. GI wanted to uncap again on 08/14 but patient refused. patient was tolerating diet very well. -Gi ordered CT scan of ab/pel repeat on 08/14 which was reviewed and showed no obstruction. - [facility] has agreed to see patient after biliary drain has been in place for 6 weeks (any procedure they would do would require removal of biliary drain and they would like to wait 6 weeks to allow tract to form, to reduce the risk of biliary leak. - Outpatient referral to [place] for second opinion - patient told to FU with Raisa as outpatient (her primary patient care technician at this time) - Instructed to notify her physician of any signs of infection (fever/chills/etc ) - Pt seen and examined by Dr. Newberry and myself and this note is written on his behalf Chronic pain in abdomen -due to the above. -patient put on IV dialudid and refused to be weaned off of it. - patient seems to display addiction to IV dilaudid since she did not want to be weaned off of IV and refused to try PO medication. She stated that when she is discharge she will not required IV. After treatment of illness patient did not display any signs or symptoms of pain and was very comfortable. Before discharge I told patient I had to get her off the IV pain medication and see how she does on oral medication. She was very upset with this. IV dilaudid was discontinued and per recommendations of palliative care start morphine SR 30 mg PO BID and IR 15 mg PO Q4H PRN for breakthrough pain. Initially when I told patient that I will put her on morphine she stated only at home and not in the hospital. But when I put her on morphine in the hospital to see how she does she told nurse she was allergic to it and get SOB. Then I tried oxycodone. Patient was upset without even trying the medication, but the next day she was stable and stated pain is the same as always. She stated on day of discharge she had no complaints and was okay with the regimen. Coagulopathy -Likely secondary to liver disease. - patient transfusion 3 u FFP and Vitamin K 10mg IV x1 on 07/20 for INR 11 now INR 1.0 - INR was then normal. Hypokalemia - Replace and corrected DM type 2. -labile varies from 90s to 400s depending on what she eats. -patient was put on Levemir 5 units bid. -he was on SSI. Pt Condition on Discharge: Stable Discharge Disposition: Discharge Home Discharge Time: > 30 minutes Discharge Instructions DIET: Follow Instructions for: Heart Healthy Diet Activities you can perform: Regular-No Restrictions Other Activity Instructions: Drainaged to be kept as directed by your [facility]. They will need it in for 6 weeks in order for any procedure to be done. Follow up Referrals: Gastroenterology - 08/30/16 with Armani Batista MD PCP Follow-up - 1 Week New Medications: Oxycodone (Oxycodone) 5 Mg Tab 5 MG PO Q4H PRN breakthrough pain #30 Ref 0 TAB Oxycodone ER (Oxycontin) 10 Mg Tab 10 MG PO Q8HR chronic pain #30 Ref 0 TAB Pancrelipase (Creon) 12,000-38,000-60,000 Units Cap 1 CAP PO TIDAC supplement Days 30 Ref 0 CAP Pantoprazole (Pantoprazole) 40 Mg Tab 40 MG PO DAILY GERD #30 TAB Polyethylene Glycol 3350 Powder (Polyethylene Glycol 3350 Powder) 17 Gm Pow 17 GM PO DAILY constipation #10 Ref 0 PACK ([Ursodiol]) 300 MG CAP 300 MG PO BIDAC GI Days 30 Ref 0 CAP Changed Medications: Insulin Glargine Inj (Lantus Inj) 1,000 Unit/10 Ml Vial 5 UNITS SQ BIDAC Blood Sugar Management Days 30 Ref 0 VIAL (Changed from: 15 UNITS) Insulin Lispro (Human) Inj (Humalog Inj) 1,000 Unit/10 Ml Vial 1 UNITS SQ ACHS Max dose at bedtime:( )units; sugars< 70,(0)units; sugars 150- 199,(1)unit; sugars 200-249,(3)units; sugars 250-299,(5)units; sugars 300-349,(7 )units; sugars more than 349,(9)units. blood pressure management #1 Ref 0 VIAL ( Changed from: 3 UNITS) Jayshree Whitehead MD Aug 16, 2016 11:36
--- NOTE | 2016-08-16 14:13 | RADRPT ---
EXAM DATE/TIME: 08/16/2016 12:57 [facility] COMPARISON: No previous studies available for comparison. INDICATIONS : Right leg swelling. MEDICAL HISTORY : Renal calculi. Methicillin-resistant Staphylococcus aureus. Non Hodgkins lymphoma. Chest pain. Abdomi nal pain. Paresthesia. Diabetes. Liver disease. Depression. SURGICAL HISTORY : Splenectomy. Biliary drain placement. Liver biopsy. Chemotherapy. Blood transfusions. ENCOUNTER: Initial ACUITY: 1 day PAIN SCORE: 7/10 LOCATION: Right leg. TECHNIQUE: Venous ultrasound of the leg was performed from the inguinal ligament to the proximal calf. Real-dg e, color Doppler and spectral tracing, compression and augmentation techniques were used. FINDINGS: There is normal compressibility of the deep venous system from the inguinal region to the proximal ca lf. No echogenic clot is seen in the lumen of the common femoral, femoral, popliteal, and posterior tibial veins. There is a normal response of the venous system to proximal and distal augmentation an d respiration. CONCLUSION: No evidence of right lower extremity DVT. Parminder Corbin MD on August 16, 2016 at 14:12 Board Certified Radiologist. This report was verified electronically.
== END 2016-08-16 16:06 | disposition home or self-care (01) | DRG 871 ==
LOC: NEPE 11:16 → NEDA 14:30 → HIME 16:25 → N04A 07-27 23:15 → HIMN 08-01 19:00 → HCIS 08-02 18:23 → HCPC 08-03 11:10 → N07B 08-05 07:41
PROVIDERS: ADMIT Family Medicine; ATTEND Family Medicine
PROC: 02HV33Z Insertion of Infusion Device into Superior Vena Cava, Percutaneous Approach (ICD-10-PCS; principal; 2016-07-19)
PROC: 30243K1 Transfusion of Nonautologous Frozen Plasma into Central Vein, Percutaneous Approach (ICD-10-PCS; 2016-07-20)
PROC: 0F998ZX Drainage of Common Bile Duct, Via Natural or Artificial Opening Endoscopic, Diagnostic (ICD-10-PCS; 2016-07-26)
PROC: BF101ZZ Fluoroscopy of Bile Ducts using Low Osmolar Contrast (ICD-10-PCS; 2016-07-31)
PROC: 0F793DZ Dilation of Common Bile Duct with Intraluminal Device, Percutaneous Approach (ICD-10-PCS; 2016-07-31)
PROC: 0FB03ZX Excision of Liver, Percutaneous Approach, Diagnostic (ICD-10-PCS; 2016-08-02)
DX: A41.59 Other Gram-negative sepsis (principal); R65.21 Severe sepsis with septic shock; E87.2 Acidosis; N17.9 Acute kidney failure, unspecified; J90 Pleural effusion, not elsewhere classified; D68.4 Acquired coagulation factor deficiency; K83.1 Obstruction of bile duct; D68.9 Coagulation defect, unspecified; K83.0 Cholangitis; R18.8 Other ascites; K76.6 Portal hypertension; J98.11 Atelectasis; E87.6 Hypokalemia; E88.09 Other disorders of plasma-protein metabolism, not elsewhere classified; D64.9 Anemia, unspecified; E87.5 Hyperkalemia; N20.0 Calculus of kidney; E11.9 Type 2 diabetes mellitus without complications; G89.29 Other chronic pain; K59.00 Constipation, unspecified; K81.1 Chronic cholecystitis; K74.60 Unspecified cirrhosis of liver; K73.9 Chronic hepatitis, unspecified; Z79.4 Long term (current) use of insulin; F32.9 Major depressive disorder, single episode, unspecified; Z85.72 Personal history of non-Hodgkin lymphomas; Z88.5 Allergy status to narcotic agent; Z86.14 Personal history of Methicillin resistant Staphylococcus aureus infection; Z90.81 Acquired absence of spleen; Z92.21 Personal history of antineoplastic chemotherapy
CPT/HCPCS: 36430; 36556; 47000; 47534; 70450; 71010; 71020; 74177; 74181; 74330; 76377; 76937; 77012; 80048; 80053; 80074; 80076; 80202; 81001; 82103; 82105; 82248; 82390; 82728; 82948; 82977; 83520; 83540; 83550; 83605; 83690; 83735; 84100; 84132; 85007; 85025; 85027; 85610; 85730; 86038; 86256; 86850; 86900; 86901; 86927; 87040; 87077; 87086; 87186; 87205; 87641; 87804; 88307; 88313; 93005; 93971; 96374; 96375; C1729; C1769; C1887; C1894; C9113; J0295; J1170; J2248; J2250; J2405; J2543; J2997; J3010; J3370; J3430; J3475; J3480; J7030; J7050; P9017; P9047; Q9963; Q9967

== ENCOUNTER 2016-08-19 14:21 | Observation (INO) | payer OTHER ==
[~2016-08-19] VITALS: Ht 162.6 cm; Wt 50.0 kg
[~2016-08-19 14:21] MED LIST changes: +CREON12 PO; +OXYC-259 PO; +OXYC-392 PO; +PANT40TA3 PO; +POLY17S PO; +Ursodiol PO
[2016-08-19 14:25] VITALS: BP 171/100; PULSE 113; RESP 20; TEMP 98.2; O2SAT 99
[2016-08-19 14:43] VITALS: BP 153/97; PULSE 99; RESP 24; O2SAT 98
[2016-08-19] MEDS ORDERED: SODIUM CHLOR 0.9% 1000 ML INJ 1,000 ML IV SCH (14:51)
--- NOTE | 2016-08-19 14:53 | PD ---
HPI Chief Complaint: Abdominal Pain Time Seen by Provider: 14:53 Travel History International Travel<30 days: No Contact w/Intl Traveler<30days: No Traveled to known affect area: No History of Present Illness HPI This is a 46-year-old female with a past medical history of non-Hodgkin's lymphoma status post chemotherapy in 2005, primary sclerosing cholangitis and strictures with multiple ERCPs in the past, hepatic cirrhosis, and diabetes mellitus. She was discharged on August 16, 2016 after being admitted for septic shock. The patient states that she has had not yet filled her prescriptions that she was discharged with including insulin, oxycodone, Creon, Protonix, MiraLAX. The patient states that she was doing fine until approximately 1-2 hours ago she started with severe abdominal pain. She states is diffuse, but worse in the right upper and epigastric region. She states she has nausea, no vomiting. She's had 2 episodes of diarrhea today and states she had a little bit of blood in each stool. She is supposed to follow up at [facility] this month, but has been unable to follow-up since she has been discharged. She reports low -grade temperatures of 99. She denies any chest pain or shortness of breath. She has a biliary drain to the abdomen which is currently capped. 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) Cardiovascular Problems: No Chemotherapy: Yes (10/02) Chest Pain: Yes Diabetes: Yes Patient Takes Glucophage: No Diminished Hearing: No Endocrine: Yes Gastrointestinal Disorders: Yes (NON-FUNCTIONAL GALLBLADDER) Genitourinary: Yes Headaches: No Heparin Induced Thrombocytopen: No Implanted Vascular Access Dvce: Yes Kidney Stones: Yes Medical other: Yes (HX OF ENLARGED SPLEEN, SPLENECTOMY 2004) Musculoskeletal: Yes Psychiatric: Yes (SLIGHTLY CLAUSTROPHOBIC) Respiratory: No Immunizations Current: No Ulcer: Yes Influenza Vaccination: Yes ?: Not Menopausal: Yes : 2 Para: 2 Miscarriage: 0 : 0 Past Surgical History Abdominal Surgery: Yes (splenectomy, liver biopsy) Body Medical Devices: BILIARY DRAIN Neurologic Surgery: No Other Surgery: Yes (BILIARY DRAIN PLACED, LIVER BIOPSY) Social History Alcohol Use: No Tobacco Use: No Substance Use: No Allergies-Medications (Allergen,Severity, Reaction): Coded Allergies: Gadolinium Derivatives (Verified Allergy, Severe, BREATHING PROBLEMS, N/V, CHILLS, 4/2/17) MRI PRECAUTION (Verified Allergy, Severe, NAUSEA; PER PATIENT IT IS A GADOLINIUM ALLERGY KMD 11/25/12, 08/19/16) Morphine (Verified Allergy, Severe, BREATHING PROBLEMS, 08/19/16) Toradol (Verified Allergy, Severe, Shortness of Breath, 08/19/16) *MDRO Multi-Drug Resistant Organism (Verified Adverse Reaction, Unknown, MRSA, 08/19/16) MRSA (abdomen) - 03/2013, 04/2014 MRSA PCR (nares) POSITIVE - 07/19/16 Reported Meds & Prescriptions Reported Meds & Active Scripts Active Oxycodone (Oxycodone HCl) 5 Mg Tab 5 Mg PO Q4H PRN Oxycontin (Oxycodone HCl) 10 Mg Tab 10 Mg PO Q8HR [Ursodiol] 300 MG Cap 300 Mg PO BIDAC 30 Days Polyethylene Glycol 3350 Powder (Polyethylene Glycol) 17 Gm Pow 17 Gm PO DAILY Pantoprazole (Pantoprazole Sodium) 40 Mg Tab 40 Mg PO DAILY Creon (Amylase/Lipase/Protease) 12,000-38,000-60,000 Units Cap 1 Cap PO TIDAC 30 Days Humalog Inj (Insulin Human Lispro) 1,000 Unit/10 Ml Vial 1 Units SQ ACHS Max dose at bedtime:( )units; sugars< 70,(0)units; sugars 150-199,(1)unit; sugars 200-249,(3)units; sugars 250-299,(5)units; sugars 300-349,(7)units; sugars more than 349,(9)units. Lantus Inj (Insulin Glargine) 1,000 Unit/10 Ml Vial 5 Units SQ BIDAC 30 Days Review of Systems Except as stated in HPI: all other systems reviewed are Neg Physical Exam Narrative GENERAL: Well-nourished, well-developed female patient, patient is crying in pain. SKIN: Focused skin assessment warm/dry. HEAD: Normocephalic. Atraumatic. EYES: No scleral icterus. No injection or drainage. NECK: Supple, trachea midline. No JVD or lymphadenopathy. CARDIOVASCULAR: Regular rate and rhythm without murmurs, gallops, or rubs. RESPIRATORY: Breath sounds equal bilaterally. No accessory muscle use. Lungs sounds are clear to auscultation. GASTROINTESTINAL: Abdomen soft and distended. She has tenderness over the diffuse abdomen, worse in the right upper quadrant epigastric region. She has a biliary drain noted to the epigastric region which is currently capped. MUSCULOSKELETAL: No cyanosis, or edema. BACK: Nontender without obvious deformity. No CVA tenderness. Data Data Last Documented VS Vital Signs Date Time Temp Pulse Resp B/P Pulse Ox O2 Delivery O2 Flow Rate FiO2 08/19/16 16:10 85 13 124/80 99 Room Air 08/19/16 14:25 98.2 Orders Complete Blood Count With Diff (08/19/16 14:51) Comprehensive Metabolic Panel (08/19/16 14:51) Lipase (08/19/16 14:51) Prothrombin Time / Inr (Pt) (08/19/16 14:51) Act Partial Throm Time (Ptt) (08/19/16 14:51) Urinalysis - C+S If Indicated (08/19/16 14:51) Ct Abd/Pel W Iv Contrast(Rout) (08/19/16 14:51) Iv Access Insert/Monitor (08/19/16 14:51) Ecg Monitoring (08/19/16 14:51) Oximetry (08/19/16 14:51) Ondansetron Inj (Zofran Inj) (08/19/16 15:00) Sodium Chlor 0.9% 1000 Ml Inj (Ns 1000 M (08/19/16 14:51) Sodium Chloride 0.9% Flush (Ns Flush) (08/19/16 15:00) Electrocardiogram (08/19/16 14:51) Lactic Acid Sepsis Protocol (08/19/16 14:51) Blood Culture (08/19/16 14:51) Hydromorphone Pf Inj (Dilaudid Pf Inj) (08/19/16 15:00) Piperacil-Tazo 4.5 Gm Premix (Zosyn 4.5 (08/19/16 16:36) Iohexol 350 Inj (Omnipaque 350 Inj) (08/19/16 17:15) Invasive Rad Dept Consult (08/19/16 ) Labs Laboratory Tests Test 08/19/16 08/19/16 15:05 16:08 White Blood Count 7.8 TH/MM3 Red Blood Count 4.54 MIL/MM3 Hemoglobin 12.6 GM/DL Hematocrit 39.3 % Mean Corpuscular Volume 86.6 FL Mean Corpuscular Hemoglobin 27.7 PG Mean Corpuscular Hemoglobin 32.0 % Concent Red Cell Distribution Width 20.7 % Platelet Count 500 TH/MM3 Mean Platelet Volume 11.1 FL Neutrophils (%) (Auto) % Lymphocytes (%) (Auto) % Monocytes (%) (Auto) % Eosinophils (%) (Auto) % Basophils (%) (Auto) % Neutrophils # (Auto) TH/MM3 Lymphocytes # (Auto) TH/MM3 Monocytes # (Auto) TH/MM3 Eosinophils # (Auto) TH/MM3 Basophils # (Auto) TH/MM3 CBC Comment AUTO DIFF Differential Total Cells 100 Counted Neutrophils % (Manual) 80 % Band Neutrophils % 6 % Lymphocytes % 11 % Monocytes % 3 % Neutrophils # (Manual) 6.7 TH/MM3 Differential Comment FINAL DIFF MANUAL Platelet Estimate HIGH Platelet Morphology Comment ENLARGED Target Cells 2+ Ovalocytes 1+ Prothrombin Time 10.1 SEC Prothromb Time International 0.9 RATIO Ratio Activated Partial 26.7 SEC Thromboplast Time Sodium Level 133 MEQ/L Potassium Level 4.3 MEQ/L Chloride Level 95 MEQ/L Carbon Dioxide Level 27.9 MEQ/L Anion Gap 10 MEQ/L Blood Urea Nitrogen 7 MG/DL Creatinine 0.73 MG/DL Estimat Glomerular Filtration 86 ML/MIN Rate Random Glucose 498 MG/DL Lactic Acid Level 1.7 mmol/L Calcium Level 9.7 MG/DL Total Bilirubin 3.7 MG/DL Aspartate Amino Transf 207 U/L (AST/SGOT) Alanine Aminotransferase 159 U/L (ALT/SGPT) Alkaline Phosphatase 1900 U/L Total Protein 8.5 GM/DL Albumin 3.2 GM/DL Lipase 185 U/L Urine Color YELLOW Urine Turbidity CLEAR Urine pH 6.0 Urine Specific [place] 1.026 Urine Protein TRACE mg/dL Urine Glucose (UA) 1000 mg/dL Urine Ketones NEG mg/dL Urine Occult Blood NEG Urine Nitrite NEG Urine Bilirubin NEG Urine Urobilinogen LESS THAN 2.0 MG/DL Urine Leukocyte Esterase NEG Urine RBC 1 /hpf Urine WBC 1 /hpf Urine Squamous Epithelial 1 /hpf Cells Urine Mucus FEW /lpf Microscopic Urinalysis Comment CULT NOT INDICATED MDM Medical Decision Making Medical Screen Exam Complete: Yes Emergency Medical Condition: Yes Medical Record Reviewed: Yes Interpretation(s) Last Impressions Abdomen/Pelvis CT 08/19/16 1591 Signed Impressions: Service Date/Time: Friday, August 19, 2016 17:02 - CONCLUSION: 1. Stable appearance of internal/external biliary drain in good position. Stable pneumobilia. No new fluid collections within the abdomen and pelvis. 2. Mild constipation. Overall no significant change since August 15. Feng Rod MD Differential Diagnosis sclerosing cholangitis vs. sepsis vs. chronic pain vs. cirrhosis Narrative Course This is a 46-year-old female who was discharged in the hospital on , 3 days ago after being admitted for septic shock. She states that she was doing fine until approximately 2 hours ago she started with severe abdominal pain. She does have a biliary drain that is currently capped. EKG, CBC, CMP, lipase, PTT, PTT/INR, lactic acid, blood cultures 2, CT abdomen/pelvis are ordered and pending. Patient is given normal saline liter IV bolus, Zofran 4 mg IV push, Dilaudid [address] abdomen/pelvis with IV contrast is ordered and pending. EKG shows sinus rhythm, heart rate 70, no acute ST changes.. CBC shows no acute abnormality. CMP shows glucose 498, bilirubin 3.7, AST 207, LT 159, alkaline phosphatase 1900. Lipase is 185. Coags are unremarkable. Lactic acid is 1.7. UA shows no evidence of acute infection. CT abdomen/pelvis shows 1. Stable appearance of internal/external biliary drain in good position. Stable pneumobilia. No new fluid collections within the abdomen and pelvis. 2. Mild constipation. Overall no significant change since August 15. Dr. Rogers spoke to radiologist and interventional radiology. Dr. Rogers admitted patient to Dr. Patel who accepted admission. Diagnosis Primary Impression: Sclerosing cholangitis Admitting Information Admitting Physician Requests: Observation Jess Hermosillo Aug 19, 2016 14:53
[2016-08-19] MEDS ORDERED: ONDANSETRON HCL 4 MG/2 ML VIAL IVP ONE (15:00)
[2016-08-19] MEDS ORDERED: SODIUM CHLORIDE 0.9% FLUSH 10 ML FLUSH IV FLUSH PRN ×2 (15:00→19:30)
[2016-08-19] MEDS ORDERED: HYDROmorphone HCL PF 1 MG/ML VIAL IV PUSH ONE (15:00)
[2016-08-19 15:25] LABS: HEMATOCRIT 39.3 % (35.0-46.0); MEAN CELL VOLUME 86.6 FL (80.0-100.0); MEAN CORPUSCULAR HEMOGLOBIN 27.7 PG (27.0-34.0); PLATELET COUNT 500 TH/MM3 (150-450); RED BLOOD COUNT 4.54 MIL/MM3 (4.00-5.30); RED CELL DISTRIBUTION WIDTH 20.7 % (11.6-17.2); WHITE BLOOD COUNT 7.8 TH/MM3 (4.0-11.0)
[2016-08-19 15:33] LABS: HEMO FLAGS AUTO DIFF
[2016-08-19 15:34] LABS: APTT (PATIENT) 26.7 SEC (24.3-30.1); INTERNATIONAL NORMALIZED RATIO 0.9 RATIO; PROTHROMBIN TIME - PATIENT 10.1 SEC (9.8-11.6)
[2016-08-19 15:57] LABS: BANDS 6 % (0-6); NEUTROPHIL # MANUAL DIFF 6.7 TH/MM3 (1.8-7.7); OVALOCYTES 1+ (NORMAL); PLATELET ESTIMATE SMEAR HIGH (NORMAL); PLATELET MORPHOLOGY ENLARGED (NORMAL); POLYS (SEG NEUTROPHILS) 80 % (16-70); SCAN/DIFF FINAL DIFF MANUAL; TARGET CELLS 2+ (NORMAL); WBC DIFF SAMPLE 100
[2016-08-19 16:04] LABS: ALKALINE PHOSPHATASE 1900 U/L (45-117); ALT (GPT) 159 U/L (10-53); ANION GAP 10 MEQ/L (5-15); AST (GOT) 207 U/L (15-37); BICARBONATE 27.9 MEQ/L (21.0-32.0); BLOOD UREA NITROGEN 7 MG/DL (7-18); CHLORIDE 95 MEQ/L (98-107); GLOMERULAR FILTRATION RATE 86 ML/MIN (>89); SODIUM (NA) 133 MEQ/L (136-145); TOTAL BILIRUBIN ADULT 3.7 MG/DL (0.2-1.0)
[2016-08-19 16:05] LABS: POTASSIUM 4.3 MEQ/L (3.5-5.1)
[2016-08-19 16:10] VITALS: BP 124/80; PULSE 85; RESP 13; O2SAT 99
[2016-08-19 16:31] LABS: BLOOD, URINE NEG (NEG); COMMENT (UR) CULT NOT INDICATED; CULTURE IF INDICATED CULT NOT INDICATED; GLUCOSE,URINE 1000 mg/dL (NEG); KETONE, URINE NEG (NEG); MUCUS URINE FEW /lpf (OCC); NITRITE,URINE NEG (NEG); SQUAMOUS EPITHELIAL CELL URINE 1 /hpf (0-5); URINE COLOR YELLOW (YELLW/STRAW)
[2016-08-19] MEDS ORDERED: PIPERACIL-TAZO 4.5 GM PREMIX 100 ML IV STA (16:36)
[2016-08-19] MEDS ORDERED: IOHEXOL 350 MG/ML 10 ML VIAL (for RAD DIAG) IV ONE (17:15)
--- NOTE | 2016-08-19 18:01 | RADRPT ---
EXAM DATE/TIME: 08/19/2016 17:02 [facility] COMPARISON: CT ABDOMEN & PELVIS W CONTRAST, August 15, 2016, 17:13. INDICATIONS : Right abdominal pain near drain placement. IV CONTRAST: 95 cc Omnipaque 350 (iohexol) IV ORAL CONTRAST: No oral contrast ingested. RADIATION DOSE: 7.41 CTDIvol (mGy) MEDICAL HISTORY : Non hodgkins lymphoma. Diabetes. SURGICAL HISTORY : Splenectomy. ENCOUNTER: Initial ACUITY: 3 days PAIN SCALE: 6/10 LOCATION: abdomen/pelvis TECHNIQUE: Volumetric scanning of the abdomen and pelvis was performed. Using automated exposure control and ad justment of the mA and/or kV according to patient size, radiation dose was kept as low as reasonably achievable to obtain optimal diagnostic quality images. FINDINGS: Compare August 15. Again seen are changes of suspected liver cirrhosis. There is pneumobilia. There is an internal/external biliary drain in good position. Minimal prominence of the biliary ductal system . Minimal free fluid. Postop changes of splenectomy are noted. Trace left pleural fluid. No focal consolidation at the lung bases. No significant abnormality in the adrenals. Kidneys unremarkable except nonobstructing calculus lower pole left kidney. No adenopathy. No bowel obstruction. No acute bony abnormality. Mild constipation. CONCLUSION: 1. Stable appearance of internal/external biliary drain in good position. Stable pneumobilia. No new fluid collections within the abdomen and pelvis. 2. Mild constipation. Overall no significant change since August 15. Feng Rod MD on August 19, 2016 at 17:51 Board Certified Radiologist. This report was verified electronically.
[2016-08-19] MEDS ORDERED: SODIUM CHLORID 0.9% 500 ML INJ 500 ML IV ONE (18:15)
--- NOTE | 2016-08-19 18:22 | PD ---
Physical Exam Narrative GENERAL: Thin patient in no apparent distress SKIN: Warm and dry. Biliary drain noted with cap in place HEAD: Normocephalic EYES: No injection or drainage. ENT: No nasal drainage noted. NECK: Supple, trachea midline. CARDIOVASCULAR: Regular rate and rhythm RESPIRATORY: No increased effort. No accessory muscle use. GASTROINTESTINAL: Abdomen soft, mild tenderness diffusely NEUROLOGICAL: Awake and alert. Moves all extremities. Normal speech. Data Data Last Documented VS Vital Signs Date Time Temp Pulse Resp B/P Pulse Ox O2 Delivery O2 Flow Rate FiO2 08/19/16 16:10 85 13 124/80 99 Room Air 08/19/16 14:25 98.2 Orders Complete Blood Count With Diff (08/19/16 14:51) Comprehensive Metabolic Panel (08/19/16 14:51) Lipase (08/19/16 14:51) Prothrombin Time / Inr (Pt) (08/19/16 14:51) Act Partial Throm Time (Ptt) (08/19/16 14:51) Urinalysis - C+S If Indicated (08/19/16 14:51) Ct Abd/Pel W Iv Contrast(Rout) (08/19/16 14:51) Iv Access Insert/Monitor (08/19/16 14:51) Ecg Monitoring (08/19/16 14:51) Oximetry (08/19/16 14:51) Ondansetron Inj (Zofran Inj) (08/19/16 15:00) Sodium Chlor 0.9% 1000 Ml Inj (Ns 1000 M (08/19/16 14:51) Sodium Chloride 0.9% Flush (Ns Flush) (08/19/16 15:00) Electrocardiogram (08/19/16 14:51) Lactic Acid Sepsis Protocol (08/19/16 14:51) Blood Culture (08/19/16 14:51) Hydromorphone Pf Inj (Dilaudid Pf Inj) (08/19/16 15:00) Piperacil-Tazo 4.5 Gm Premix (Zosyn 4.5 (08/19/16 16:36) Iohexol 350 Inj (Omnipaque 350 Inj) (08/19/16 17:15) Invasive Rad Dept Consult (08/19/16 ) Admit Order (Ed Use Only) (08/19/16 18:06) ^ Other Nursing Orders (08/19/16 18:12) Ns (Bolus) Inj (08/19/16 18:15) Labs Laboratory Tests Test 08/19/16 08/19/16 15:05 16:08 White Blood Count 7.8 TH/MM3 Red Blood Count 4.54 MIL/MM3 Hemoglobin 12.6 GM/DL Hematocrit 39.3 % Mean Corpuscular Volume 86.6 FL Mean Corpuscular Hemoglobin 27.7 PG Mean Corpuscular Hemoglobin 32.0 % Concent Red Cell Distribution Width 20.7 % Platelet Count 500 TH/MM3 Mean Platelet Volume 11.1 FL Neutrophils (%) (Auto) % Lymphocytes (%) (Auto) % Monocytes (%) (Auto) % Eosinophils (%) (Auto) % Basophils (%) (Auto) % Neutrophils # (Auto) TH/MM3 Lymphocytes # (Auto) TH/MM3 Monocytes # (Auto) TH/MM3 Eosinophils # (Auto) TH/MM3 Basophils # (Auto) TH/MM3 CBC Comment AUTO DIFF Differential Total Cells 100 Counted Neutrophils % (Manual) 80 % Band Neutrophils % 6 % Lymphocytes % 11 % Monocytes % 3 % Neutrophils # (Manual) 6.7 TH/MM3 Differential Comment FINAL DIFF MANUAL Platelet Estimate HIGH Platelet Morphology Comment ENLARGED Target Cells 2+ Ovalocytes 1+ Prothrombin Time 10.1 SEC Prothromb Time International 0.9 RATIO Ratio Activated Partial 26.7 SEC Thromboplast Time Sodium Level 133 MEQ/L Potassium Level 4.3 MEQ/L Chloride Level 95 MEQ/L Carbon Dioxide Level 27.9 MEQ/L Anion Gap 10 MEQ/L Blood Urea Nitrogen 7 MG/DL Creatinine 0.73 MG/DL Estimat Glomerular Filtration 86 ML/MIN Rate Random Glucose 498 MG/DL Lactic Acid Level 1.7 mmol/L Calcium Level 9.7 MG/DL Total Bilirubin 3.7 MG/DL Aspartate Amino Transf 207 U/L (AST/SGOT) Alanine Aminotransferase 159 U/L (ALT/SGPT) Alkaline Phosphatase 1900 U/L Total Protein 8.5 GM/DL Albumin 3.2 GM/DL Lipase 185 U/L Urine Color YELLOW Urine Turbidity CLEAR Urine pH 6.0 Urine Specific [place] 1.026 Urine Protein TRACE mg/dL Urine Glucose (UA) 1000 mg/dL Urine Ketones NEG mg/dL Urine Occult Blood NEG Urine Nitrite NEG Urine Bilirubin NEG Urine Urobilinogen LESS THAN 2.0 MG/DL Urine Leukocyte Esterase NEG Urine RBC 1 /hpf Urine WBC 1 /hpf Urine Squamous Epithelial 1 /hpf Cells Urine Mucus FEW /lpf Microscopic Urinalysis Comment CULT NOT INDICATED MDM Supervised Visit with MYRON: Yes Interpretation(s) CBC & BMP Diagram 08/19/16 15:05 Last 24 hours Impressions Abdomen/Pelvis CT 08/19/16 1451 Signed Impressions: Service Date/Time: Friday, August 19, 2016 17:02 - CONCLUSION: 1. Stable appearance of internal/external biliary drain in good position. Stable pneumobilia. No new fluid collections within the abdomen and pelvis. 2. Mild constipation. Overall no significant change since August 15. Feng Rod MD Narrative Course I, Dr. rogers, have reviewed the advance practice practitioner's documentation and am in agreement, met with the patient face to face, made the diagnosis, and the medical decision making was done by me. *My assessment and Findings: 46 y/o female with h/o biliary strictures and sclerosing cholangitis with biliary drain notes abdominal pain with recent admission for sepsis. LFTs are elevated from prior and CT is stable. Elevated white count with recent sepsis Will give 1 dose of Zosyn. Blood work shows elevated glucose but no signs of DKA. IR states to place drained to gravity and bring into the hospital for monitoring. Will proceed with plan of care. Physician Communication Physician Communication Dr. Rod states to talk with IR dr alamo states to place a drain to gravity with all-purpose bag and they will follow Dr. coronel states to place under Dr. ambrocio, will place initial orders Diagnosis Primary Impression: biliary tube dysfunction Additional Impressions: Elevated LFTs Poorly controlled diabetes mellitus Admitting Information Admitting Physician Requests: Admit Cara Rogers MD Aug 19, 2016 18:22
[2016-08-19 18:44] VITALS: BP 136/91; PULSE 95; RESP 17; O2SAT 98
--- NOTE | 2016-08-19 19:21 | HHI.HP ---
[facility] Primary Care Physician Gilmar Matos DO Admission Diagnosis abdominal pain, elevated bilirubin Diagnoses: (1) Biliary drain displacement Diagnosis: Principal (2) PSC (primary sclerosing cholangitis) Diagnosis: Principal (3) Abdominal pain Diagnosis: Principal (4) Chronic pain Diagnosis: Principal (5) DM (diabetes mellitus) Diagnosis: Principal Travel History International Travel<30 Days: No Contact w/Intl Traveler <30 Da: No Traveled to Known Affected Are: No History of Present Illness This is a 46-year-old female with a PMH of NHL s/p Chemo, PSC/Cirrhosis, Chronic Pain, Narcotic Dependence and DM who presented to the ER w/ complaints of severe abdominal pain starting earlier today. Reports associated nausea and few episodes of diarrhea, however no vomiting. Recent admit w/ prolonged hospitalization from 07/19-08/16/16 for Sepsis secondary to Klebsiella PNA/ Bacteremia s/p IV Abx, Acute Cholangitis s/p Biliary Drain Placement 07/31/16 and capped 08/04/16, ERCP 08/05/16 w/ left hepatic tree stricture, s/p liver biopsy suggestive of PSC vs Cirrhosis, plan to uncap drain by GI on 08/14/16 however pt had refused. Repeat CT Abd/Pelvis 08/14/16 negative for obstruction. Per records, O agreed to eval pt after drain in place x6 wks and given outpatient referral to [facility] w/ follow up to [facility] w/ her primary GI doctor. Per pt she has not filled her prescriptions from time of discharge on 08/16/16, including Oxycodone, Creon, Protonix, Miralax and Insulin. On arrival, BP 171/ 100, HR 113, O2 sat 99% on RA, Afebrile. Currently BP 124/80, HR 85. CBC at baseline. BS 498. Lactic Acid 1.7. LFTs elevated, mildly increased in comparison the labs on 08/15/16. UA negative. CT Abd/Pelvis w. Stable appearance of internal/external biliary drain in good position, stable pneumobilia no new fluid collections in the abdomen and pelvis, mild constipation. ER physician spoke w/ IR, recommended drain be placed to gravity and they will evaluate in am for drain malfunction. Review of Systems Except as stated in HPI: all other systems reviewed are Neg ROS: 14 point review of systems otherwise negative. Past Family Social History Past Medical History PMH: NHL s/p Chemo, PSC/Cirrhosis, Chronic Pain, Narcotic Dependence and DM Past Surgical History PAST SURGICAL HISTORY: Splenectomy, Biliary Drain, Liver Biopsy Allergies: Coded Allergies: Gadolinium Derivatives (Verified Allergy, Severe, BREATHING PROBLEMS, N/V, CHILLS, 08/19/16) MRI PRECAUTION (Verified Allergy, Severe, NAUSEA; PER PATIENT IT IS A GADOLINIUM ALLERGY KMD 11/25/12, 08/19/16) Morphine (Verified Allergy, Severe, BREATHING PROBLEMS, 08/19/16) Toradol (Verified Allergy, Severe, Shortness of Breath, 08/19/16) *MDRO Multi-Drug Resistant Organism (Verified Adverse Reaction, Unknown, MRSA, 08/19/16) MRSA (abdomen) - 03/2013, 04/2014 MRSA PCR (nares) POSITIVE - 07/19/16 Family History PAST FAMILY HISTORY: Reviewed. No h/o DM or CAD Social History PAST SOCIAL HISTORY: Negative for alcohol, tobacco or drugs. Physical Exam Vital Signs Vital Signs Date Time Temp Pulse Resp B/P Pulse Ox O2 Delivery O2 Flow Rate FiO2 08/19/16 18:44 95 17 136/91 98 Room Air 08/19/16 16:10 85 13 124/80 99 Room Air 08/19/16 14:43 99 24 153/97 98 Room Air 08/19/16 14:25 98.2 113 20 171/100 99 Physical Exam PE: GENERAL: Middle-aged white female in no acute distress, sitting up in bed. HEENT: PERRLA, EOMI. No scleral icterus or conjunctival pallor. No lid lag or facial droop. CARDIOVASCULAR: Regular rate and rhythm. No obvious murmurs to auscultation. No chest tenderness to palpation. RESPIRATORY: No obvious rhonchi or wheezing. Clear to auscultation. Breath sounds equal bilaterally. GASTROINTESTINAL: Abdomen soft, mild generalized tenderness to palpation, nondistended. BS normal. Biliary drain in place, MUSCULOSKELETAL: Extremities without clubbing, cyanosis, or edema. No obvious deformities. NEUROLOGICAL: Awake, alert and oriented x4. No focal neurologic deficits. Moving both upper and lower extremities spontaneously. Laboratory Laboratory Tests Test 08/19/16 08/19/16 15:05 16:08 White Blood Count 7.8 Red Blood Count 4.54 Hemoglobin 12.6 Hematocrit 39.3 Mean Corpuscular Volume 86.6 Mean Corpuscular Hemoglobin 27.7 Mean Corpuscular Hemoglobin 32.0 Concent Red Cell Distribution Width 20.7 Platelet Count 500 Mean Platelet Volume 11.1 Neutrophils (%) (Auto) Lymphocytes (%) (Auto) Monocytes (%) (Auto) Eosinophils (%) (Auto) Basophils (%) (Auto) Neutrophils # (Auto) Lymphocytes # (Auto) Monocytes # (Auto) Eosinophils # (Auto) Basophils # (Auto) CBC Comment AUTO DIFF Differential Total Cells 100 Counted Neutrophils % (Manual) 80 Band Neutrophils % 6 Lymphocytes % 11 Monocytes % 3 Neutrophils # (Manual) 6.7 Differential Comment FINAL DIFF MANUAL Platelet Estimate HIGH Platelet Morphology Comment ENLARGED Target Cells 2+ Ovalocytes 1+ Prothrombin Time 10.1 Prothromb Time International 0.9 Ratio Activated Partial 26.7 Thromboplast Time Sodium Level 133 Potassium Level 4.3 Chloride Level 95 Carbon Dioxide Level 27.9 Anion Gap 10 Blood Urea Nitrogen 7 Creatinine 0.73 Estimat Glomerular Filtration 86 Rate Random Glucose 498 Lactic Acid Level 1.7 Calcium Level 9.7 Total Bilirubin 3.7 Aspartate Amino Transf 207 (AST/SGOT) Alanine Aminotransferase 159 (ALT/SGPT) Alkaline Phosphatase 1900 Total Protein 8.5 Albumin 3.2 Lipase 185 Urine Color YELLOW Urine Turbidity CLEAR Urine pH 6.0 Urine Specific [place] 1.026 Urine Protein TRACE Urine Glucose (UA) 1000 Urine Ketones NEG Urine Occult Blood NEG Urine Nitrite NEG Urine Bilirubin NEG Urine Urobilinogen LESS THAN 2.0 Urine Leukocyte Esterase NEG Urine RBC 1 Urine WBC 1 Urine Squamous Epithelial 1 Cells Urine Mucus FEW Microscopic Urinalysis Comment CULT NOT INDICATED Date/Time Procedure Status Source Growth 08/19/16 15:45 Aerobic Blood Culture Received Blood Peripheral Pending 08/19/16 15:45 Anaerobic Blood Culture Received Blood Peripheral Pending Result Diagram: 08/19/16 1505 08/19/16 1505 Assessment and Plan Problem List: (1) Biliary drain displacement ICD Code: T85.520A Status: Acute (2) Abdominal pain ICD Code: R10.9 Status: Acute (3) Chronic pain ICD Code: G89.29 Status: Acute (4) PSC (primary sclerosing cholangitis) ICD Code: K83.0 Status: Acute (5) DM (diabetes mellitus) ICD Code: E11.9 Status: Chronic Assessment and Plan A/P: 1. Biliary Drain Malfunction: recent admit 3-08/16/16 w/ prolonged hospitalization secondary to Sepsis/Bacteremia, found to have acute cholangitis s/p ERCP and Liver Biopsy, s/p Biliary Drain 07/31/16 by IR, drain currently capped, now w/ severe abdominal pain and increasing LFTs. CT Abd/Pelvis w/ stable appearance of internal/external biliary drain in good position and stable pneumobilia with no new fluid collections, images reviewed by me. ER physician spoke with Dr. Rod w/ Radiology who recommended IR consultation, Dr. Isaac consulted by ER physician, recommended drain be placed to gravity and will eval in am for Biliary Drain Malfunction. IR Consult placed. NPO after midnight. 2. PSC: Recent admit w/ Acute Cholangitis, s/p ERCP 07/26/16 w/ hepatic stricture, s/p liver biopsy w/ pathology suggestive of PSC/Cirrhosis. S/p eval by Dr. Newberry on last admit, [facility] has agreed to eval pt after drain in place x6 wks. Pt referred to [facility] for 2nd opinion and instructed to follow up w/ [facility] w/ her primary GI doctor. Has not followed up as of yet, questionable compliance, urged to follow up and fill prescriptions-reports hasn't gotten prescriptions since her d/c on 08/16/16. 3. Chronic Pain: w/ Narcotic Dependence, per previous records, pt w/ evidence of drug seeking behavior. Will resume home Oxycodone IR/SR. 4. Abdominal Pain: H/o chronic pain w/ acute exacerbation, likely compounded by malfunctioning biliary drain, caution w/ reported drug seeking behavior. Continue home medications. Protonix IV, Dilaudid IV 5. DM: Uncontrolled. Non-compliant w/ meds. Resume home Insulin. Sliding scale w/ Accu-Cheks. 6. DVT Prophylaxis: h/o coagulopathy requiring Vit K and FFP, no anticoagulation. INR 0.9. 7. Social work for d/c planning as needed. 8. Case discussed w/ ER physician at length Ai Bellamy MD Aug 19, 2016 19:21
[2016-08-19] MEDS ORDERED: DEXTROSE 50% IN WATER 50 ML VIAL(D50) IV PUSH PRN (19:30)
[2016-08-19] MEDS ORDERED: GLUCAGON 1 MG/ML VIAL OTHER PRN (19:30)
[2016-08-19] MEDS ORDERED: BISACODYL 10 MG SUPP RECTAL PRN (19:30)
[2016-08-19 20:12] VITALS: BP 137/93; PULSE 89; RESP 17; O2SAT 99
[2016-08-19] MEDS: PANTOPRAZOLE SODIUM 40 MG VIAL IV PUSH SCH (20:13)
[2016-08-19] MEDS: HYDROmorphone HCL PF 1 MG/ML VIAL IV PRN ×2 (20:14→23:13)
[2016-08-19] MEDS: INSULIN ASPART SUPPLEMENTAL SCALE SQ SCH (20:14)
[2016-08-19 20:59] VITALS: BP 137/93
[2016-08-19] MEDS: SODIUM CHLORIDE 0.9% FLUSH 10 ML FLUSH IV FLUSH SCH (21:21)
[2016-08-19] MEDS: oxyCODONE HCL 10 MG CONTROLLED RELEASE TAB PO SCH (21:22)
[2016-08-20] VITALS (7 sets, daily range): BP systolic 105–130; BP diastolic 73–84; PULSE 74–99; RESP 17–21; TEMP 95.9–98.8; O2SAT 94–98
[2016-08-20] MEDS: HYDROmorphone HCL PF 1 MG/ML VIAL IV PRN ×7 (02:40→23:32)
[2016-08-20 03:56] LABS: MEAN CELL VOLUME 84.7 FL (80.0-100.0); MEAN CORPUSCULAR HEMOGLOBIN 27.6 PG (27.0-34.0); MEAN CORPUSCULAR HGB CONC 32.6 % (32.0-36.0); PLATELET COUNT 405 TH/MM3 (150-450); RED BLOOD COUNT 3.54 MIL/MM3 (4.00-5.30); RED CELL DISTRIBUTION WIDTH 20.1 % (11.6-17.2)
[2016-08-20 03:58] LABS: HEMO FLAGS AUTO DIFF
[2016-08-20 04:37] LABS: ALKALINE PHOSPHATASE 1320 U/L (45-117); ALT (GPT) 125 U/L (10-53); ANION GAP 7 MEQ/L (5-15); AST (GOT) 170 U/L (15-37); BICARBONATE 28.1 MEQ/L (21.0-32.0); BLOOD UREA NITROGEN 7 MG/DL (7-18); CHLORIDE 108 MEQ/L (98-107); GLOMERULAR FILTRATION RATE 296 ML/MIN (>89); POTASSIUM 3.3 MEQ/L (3.5-5.1); SODIUM (NA) 143 MEQ/L (136-145); TOTAL BILIRUBIN ADULT 2.5 MG/DL (0.2-1.0)
[2016-08-20] MEDS: oxyCODONE HCL 10 MG CONTROLLED RELEASE TAB PO SCH ×3 (05:40→21:26)
[2016-08-20] MEDS: ONDANSETRON HCL 4 MG/2 ML VIAL IVP PRN ×2 (05:43→15:29)
[2016-08-20] MEDS: INSULIN ASPART SUPPLEMENTAL SCALE SQ SCH ×4 (05:54→21:00)
[2016-08-20] MEDS: INSULIN DETEMIR 100 UNITS/ML VIAL SQ SCH ×2 (05:54→16:00)
[2016-08-20 07:01] LABS: BANDS 6 % (0-6); BASOPHILS 1 % (0-2); EOSINOPHILS 1 % (0-4); NEUTROPHIL # MANUAL DIFF 7.8 TH/MM3 (1.8-7.7); POLYS (SEG NEUTROPHILS) 81 % (16-70); WBC DIFF SAMPLE 100
[2016-08-20 07:02] LABS: HOWELL-JOLLY BODIES PRESENT (NONE SEEN); PLATELET ESTIMATE SMEAR NORMAL (NORMAL); PLATELET MORPHOLOGY NORMAL (NORMAL); SCAN/DIFF FINAL DIFF MANUAL; TARGET CELLS 2+ (NORMAL)
[2016-08-20] MEDS: LIPASE/PROTEASE/AMYLASE (12,000/38,000/60,000) CAP PO SCH ×3 (08:00→17:00)
[2016-08-20] MEDS: POLYETHYLENE GLYCOL 17 GM PKG PO SCH (09:00)
[2016-08-20] MEDS: PANTOPRAZOLE SODIUM 40 MG VIAL IV PUSH SCH ×2 (09:27→20:30)
[2016-08-20] MEDS: SODIUM CHLORIDE 0.9% FLUSH 10 ML FLUSH IV FLUSH SCH ×2 (09:30→20:30)
--- NOTE | 2016-08-20 10:19 | HHI.PR ---
Subjective Remarks Follow up for acute cholangitis, possible malfunctioning biliary drain. The patient reports continued diffuse abdominal pain, worse at epigastric and RUQ, temporarily relieved by IV Dilaudid. She also reports continued nausea, relieved by IV Zofran. No episodes of vomiting overnight. She would like to eat. Denies fevers or chills. Denies any other medical complaints at this time. Objective Vitals Vital Signs Date Time Temp Pulse Resp B/P Pulse Ox O2 Delivery O2 Flow Rate FiO2 08/20/16 07:53 98.0 84 17 124/84 97 08/20/16 06:17 16 08/20/16 05:35 98.8 90 21 130/83 96 08/19/16 22:56 16 08/19/16 20:59 92 18 137/93 98 08/19/16 20:12 89 17 137/93 99 Room Air 08/19/16 18:44 95 17 136/91 98 Room Air 08/19/16 16:10 85 13 124/80 99 Room Air 08/19/16 14:43 99 24 153/97 98 Room Air 08/19/16 14:25 98.2 113 20 171/100 99 Result Diagram: 08/20/16 0309 08/20/16 0309 Imaging Last Impressions Abdomen/Pelvis CT 08/19/16 1451 Signed Impressions: Service Date/Time: Friday, August 19, 2016 17:02 - CONCLUSION: 1. Stable appearance of internal/external biliary drain in good position. Stable pneumobilia. No new fluid collections within the abdomen and pelvis. 2. Mild constipation. Overall no significant change since August 15. Feng Rod MD Objective Remarks GENERAL: Thin female patient in NAD. SKIN: Warm and dry. No rash. HEENT: Normocephalic. Atraumatic. Pupils equal and round. No scleral icterus. No injection or drainage. Mucous membranes pink and moist. NECK: Supple. Trachea midline. CARDIOVASCULAR: Regular rate and rhythm. S1, S2 noted. No murmur appreciated. RESPIRATORY: No accessory muscle use. Clear to auscultation. Breath sounds equal bilaterally. GASTROINTESTINAL: Abdomen soft, nondistended, diffuse TTP, worse at RUQ. Normoactive bowel sounds x4. Biliary drain in place. MUSCULOSKELETAL: No obvious deformities. Extremities without clubbing, cyanosis , or edema. NEUROLOGICAL: Awake and alert. No obvious cranial nerve deficits. Motor grossly within normal limits. 5/5 muscle strength in bilateral upper and lower extremities. Normal speech. PSYCHIATRIC: Appropriate mood and affect; insight and judgment normal. Medications and IVs Current Medications Medications (Trade) Dose Ordered Sig/Celso Route Start Time Stop Time Status Last Admin (NS Flush) 2 ml UNSCH PRN IV FLUSH 08/19/16 15:00 (D50w (Vial) Inj) 25 ml UNSCH PRN IV PUSH 08/19/16 19:30 (Glucagon Inj) 1 mg UNSCH PRN OTHER 08/19/16 19:30 (NS Flush) 2 ml UNSCH PRN IV FLUSH 08/19/16 19:30 (NS Flush) 2 ml BID IV FLUSH 08/19/16 21:00 08/20/16 09:30 (Zofran Inj) 4 mg Q6H PRN IVP 08/19/16 19:30 08/20/16 05:43 (Dulcolax Supp) 10 mg DAILY PRN RECTAL 08/19/16 19:30 (Dilaudid Pf Inj) 1 mg Q3H PRN IV 08/19/16 19:30 08/20/16 09:27 (Roxicodone) 5 mg Q4H PRN PO 08/19/16 19:30 (OxyCONTIN CR) 10 mg Q8HR PO 08/19/16 22:00 08/19/16 21:22 (Creon 12-38-60) 1 cap TIDAC PO 08/20/16 08:00 (Protonix Inj) 40 mg Q12H IV PUSH 08/19/16 20:00 08/20/16 09:27 (Levemir Inj) 5 units BIDAC SQ 08/20/16 07:00 (Miralax) 17 gm DAILY PO 08/20/16 09:00 A/P Problem List: (1) Biliary drain displacement ICD Code: T85.520A Status: Acute (2) Abdominal pain ICD Code: R10.9 Status: Acute (3) Chronic pain ICD Code: G89.29 Status: Acute (4) PSC (primary sclerosing cholangitis) ICD Code: K83.0 Status: Acute (5) DM (diabetes mellitus) ICD Code: E11.9 Status: Chronic Assessment and Plan 46-year-old female with a PMH of NHL s/p Chemo, PSC/Cirrhosis, Chronic Pain, Narcotic Dependence and DM who presented to the ER w/ complaints of severe abdominal pain starting earlier today. Biliary Drain Malfunction: recent admit 07/19-08/16/16 w/ prolonged hospitalization secondary to Sepsis/Bacteremia, found to have acute cholangitis s/p ERCP and Liver Biopsy, s/p Biliary Drain 07/31/16 by IR, drain currently capped, now w/ severe abdominal pain and increasing LFTs. CT Abd/Pelvis w/ stable appearance of internal/external biliary drain in good position and stable pneumobilia with no new fluid collections, images reviewed by me. ER physician spoke with Dr. Rod w/ Radiology who recommended IR consultation, Dr. Isaac consulted by ER physician, recommended drain be placed to gravity and will eval today for Biliary Drain Malfunction. -IR Consult placed. -NPO after midnight. -monitor LFTs PSC: Recent admit w/ Acute Cholangitis, s/p ERCP 07/26/16 w/ hepatic stricture, s /p liver biopsy w/ pathology suggestive of PSC/Cirrhosis. S/p eval by Dr. Newberry on last admit, [facility] has agreed to eval pt after drain in place x6 wks. Pt referred to [facility] for 2nd opinion and instructed to follow up w/ [facility] w/ her primary GI doctor. Has not followed up yet, questionable compliance, hasn' t gotten prescriptions since her d/c on 08/16/16. -Counseled on compliance with medications and treatment plan, patient verbalized understanding. Chronic Pain: w/ Narcotic Dependence, per previous records, pt w/ evidence of drug seeking behavior. -Resume home Oxycodone IR/SR. Abdominal Pain: H/o chronic pain w/ acute exacerbation, likely compounded by malfunctioning biliary drain, caution w/ reported drug seeking behavior. -Continue home medications. -Protonix IV, Dilaudid IV DM: Uncontrolled. Non-compliant w/ meds. -Resume home Insulin. -Sliding scale w/ Accu-Cheks. DVT Prophylaxis: h/o coagulopathy requiring Vit K and FFP, no anticoagulation. INR 0.9. Vidhya Mcgowan PA-C Aug 20, 2016 10:19 am
--- NOTE | 2016-08-20 10:42 | EKG ---
Date Performed: 08/19/2016 Time Performed: 15:50:54 PTAGE: 46 years EKG: Sinus rhythm MINIMAL VOLTAGE CRITERIA FOR LVH, CONSIDER NORMAL VARIANT SEPTAL MYOCARDIAL INFARCTION ABNORMAL ECG PREVIOUS TRACING : 07/19/2016 15.54 DOCTOR: Zi Bowen Interpretating Date/Time 08/20/2016 10:37:37
[2016-08-20] MEDS ORDERED: fentaNYL CITRATE 250 MCG/5 ML AMP ONE (11:51)
[2016-08-20] MEDS ORDERED: MIDAZOLAM HCL 5 MG/5 ML VIAL ONE (11:51)
[2016-08-20] MEDS ORDERED: LEVOFLOXACIN 500 MG PREMIX INJ 100 ML IV ONE (11:54)
[2016-08-20] MEDS ORDERED: IOHEXOL 350 MG/ML 50 ML BTL (for RAD DIAG) ONE (12:34)
--- NOTE | 2016-08-20 12:42 | PD.RAD ---
Post Procedure Progress Note Pre Procedure Diagnosis: (1) hepatic cirrhosis/fibrosis/chronic hepatitis (2) Elevated LFTs (3) blocked biliary tube Post Procedure Diagnosis: (1) hepatic cirrhosis/fibrosis/chronic hepatitis (2) Biliary drain displacement (3) blocked biliary tube Procedure Date: Aug 20, 2016 Supervising Radiologist: Noel Isaac Proceduralist/Assist: Vidhya Bailey, RT(R), Kathleen Garcias RT(R)() Anesthesia: Local, Analgesia, Conscious Sedation Plan of Activity Patient to Unit: ROPU Patient Condition: Good See PACS Report for procedural detail/treatment Drainage Procedure Procedure 1 Imaging Guidance: Fluoroscopy Procedure Type: Biliary Drainage Procedure: Replacement Citizen Of The [place]: 8 Drainage: [place] drainage Fluid Description: Bilious Findings: Exisiting tube pulled back above ampulla in CBD. New tube placed with cope loop in duodenum Noel Isaac MD Aug 20, 2016 12:42
--- NOTE | 2016-08-20 15:50 | RADRPT ---
EXAM DATE/TIME: 08/20/2016 11:44 [place] COMPARISON: BILIARY DRAINAGE W STENT PLACE, July 31, 2016, 13:05. CHANGE OF BILIARY CATHETER, May 17, 2014 , 14:50. INDICATIONS : Patient with history of acute cholangitis in need of biliary drain exchange. MEDICAL HISTORY : Diabetes, Cirrhosis, Chronic pain, Sepsis, Non-Hodgkin's lymphoma, Chemotherapy, Narcotic dependence SURGICAL HISTORY : Splenectomy, Biliary drain, Liver biopsy, Nephrostomy tube placement and removal, Ureteral stent plac ement and removal ENCOUNTER: Subsequent ACUITY: >1 year PAIN SCORE: 8/10 LOCATION: Abdomen FLUORO TIME: 3.2 minutes IMAGE SERIES: 2 SEDATION TIME: 30 minutes CONTRAST: 10 cc Omnipaque (iohexol) 350 MEDICATION(S): 1.) 2 mg midazolam (Versed) IV 2.) 100 mcg fentanyl (Sublimaze) IV 3.) 500 mg Levaquin IV Prophylactic antibiotics were administered with appropriate pre-procedure timing. Intra-procedural antibiotics were given as prescribed above. DEVICE(S): 1.) 8 [place] X35cm biliary drain PROCEDURE : 1. Cholangiogram through existing catheter. 2. Biliary stent change. 3. Conscious sedation with continuous EKG and oximetry monitoring. The risks, benefits and alternatives to the procedure were explained and verbal and written consent w as obtained. The site was prepped in sterile fashion. Full sterile technique was used, including ca p, mask, sterile gloves and gown and a large sterile sheet. Hand hygiene and 2% chlorhexidine and/or betadine/alcohol prep was utilized per protocol for cutaneous antisepsis. The skin and subcutaneous tissues were infiltrated with local anesthetic solution. Contrast injection into the original tube shows the [place] loop to retracted above the sphincter of [place]rick e into the CBD. Catheter was accessed and a straight Glidewire. The malposition catheter was removed. Wire was guided into the duodenum with a hockey-stick catheter. A new 8 [place]ic biliary drainage cath eter was then advanced over the wire. [place] loop was formed in the second portion of the duodenum. Conscious sedation was performed with the prescribed dosages and duration as above in the presence of an independent trained radiology nurse to assist in the monitoring of the patient. EKG and oximetry remained stable throughout the procedure. The patient tolerated the procedure well and there were n o complications. The patient was sent to post anesthesia recovery in stable condition. CONCLUSION: 1. Uncomplicated biliary catheter change. 2. Malfunction of the original catheter was due to the fact that the [place] loop had retracted above th e sphincter of [place] into the common bile duct. 3. Patient was instructed to leave the catheter to gravity drainage for 24-48 hours. If symptoms reso lve, can cap catheter the catheter at that time Noel Isaac MD on August 20, 2016 at 15:44 Board Certified Radiologist. This report was verified electronically.
[2016-08-21] MEDS: HYDROmorphone HCL PF 1 MG/ML VIAL IV PRN ×3 (02:32→09:14)
[2016-08-21] MEDS: oxyCODONE HCL 10 MG CONTROLLED RELEASE TAB PO SCH (05:20)
[2016-08-21] MEDS: INSULIN ASPART SUPPLEMENTAL SCALE SQ SCH ×2 (05:46→12:37)
[2016-08-21] MEDS: INSULIN DETEMIR 100 UNITS/ML VIAL SQ SCH (06:00)
[2016-08-21 06:07] VITALS: BP 124/81; PULSE 95; RESP 20; O2SAT 96
[2016-08-21 08:10] LABS: HEMATOCRIT 29.2 % (35.0-46.0); MEAN CELL VOLUME 84.3 FL (80.0-100.0); MEAN CORPUSCULAR HEMOGLOBIN 28.4 PG (27.0-34.0); MEAN CORPUSCULAR HGB CONC 33.7 % (32.0-36.0); PLATELET COUNT 373 TH/MM3 (150-450); RED BLOOD COUNT 3.46 MIL/MM3 (4.00-5.30); RED CELL DISTRIBUTION WIDTH 20.2 % (11.6-17.2); WHITE BLOOD COUNT 7.1 TH/MM3 (4.0-11.0)
[2016-08-21 08:11] LABS: HEMO FLAGS AUTO DIFF
[2016-08-21 08:17] VITALS: BP 116/76; PULSE 88; RESP 17; TEMP 98.4; O2SAT 97
[2016-08-21 08:44] LABS: BANDS 8 % (0-6); EOSINOPHILS 3 % (0-4); NEUTROPHIL # MANUAL DIFF 5.3 TH/MM3 (1.8-7.7); POLYS (SEG NEUTROPHILS) 67 % (16-70); TARGET CELLS 2+ (NORMAL); WBC DIFF SAMPLE 100
[2016-08-21 08:45] LABS: PLATELET ESTIMATE SMEAR NORMAL (NORMAL); PLATELET MORPHOLOGY ENLARGED (NORMAL); SCAN/DIFF FINAL DIFF MANUAL
[2016-08-21 08:56] LABS: ALKALINE PHOSPHATASE 1189 U/L (45-117); ALT (GPT) 97 U/L (10-53); ANION GAP 10 MEQ/L (5-15); AST (GOT) 112 U/L (15-37); BICARBONATE 30.4 MEQ/L (21.0-32.0); BLOOD UREA NITROGEN 7 MG/DL (7-18); CHLORIDE 100 MEQ/L (98-107); GLOMERULAR FILTRATION RATE 325 ML/MIN (>89); MAGNESIUM 1.7 MG/DL (1.5-2.5); SODIUM (NA) 140 MEQ/L (136-145); TOTAL BILIRUBIN ADULT 2.5 MG/DL (0.2-1.0)
[2016-08-21] MEDS: POLYETHYLENE GLYCOL 17 GM PKG PO SCH (09:00)
[2016-08-21] MEDS: LIPASE/PROTEASE/AMYLASE (12,000/38,000/60,000) CAP PO SCH ×2 (09:15→12:34)
[2016-08-21] MEDS: PANTOPRAZOLE SODIUM 40 MG VIAL IV PUSH SCH (09:15)
[2016-08-21] MEDS: SODIUM CHLORIDE 0.9% FLUSH 10 ML FLUSH IV FLUSH SCH (09:15)
[2016-08-21] MEDS ORDERED: POTASSIUM CHLORIDE 20 MEQ CONTROLLED RELEASE TAB PO ONE (10:00)
--- NOTE | 2016-08-21 10:08 | HHI.PR ---
Subjective Remarks Follow up for cholangitis, biliary drain malfunction, elevated LFTs. The patient reports feeling slightly better today, had some chronic mild abdominal pain. She is very hesitant about trying po pain medication, discussed extensively. She is also hesitant about being discharged. She vomited twice yesterday but none today. She was able to tolerate breakfast. 05/23 blood cultures positive, patient evaluated by ID on last admission with +Citrobacter bacteremia, recommended po Levaquin [id number]. Patient says she dropped off her prescriptions but never picked up the medications after discharge. Objective Vitals Vital Signs Date Time Temp Pulse Resp B/P Pulse Ox O2 Delivery O2 Flow Rate FiO2 08/21/16 08:17 98.4 88 17 116/76 97 08/21/16 06:36 16 08/21/16 06:07 95 20 124/81 96 08/20/16 19:47 99 18 124/82 96 08/20/16 15:48 95.9 94 17 123/73 98 08/20/16 13:20 74 18 115/77 95 08/20/16 12:50 78 18 105/73 94 08/20/16 12:35 97.7 80 18 117/82 94 I/O 08/20/16 08/20/16 08/20/16 08/21/16 08/21/16 08/21/16 07:00 15:00 23:00 07:00 15:00 23:00 Output Total 50 ml Balance -50 ml Output Drainage Total 50 ml # Voids 2 6 # Bowel Movements 0 Result Diagram: 08/21/16 0700 08/21/16 0700 Imaging Last Impressions Catheter Change 08/20/16 0000 Signed Impressions: Service Date/Time: Saturday, August 20, 2016 11:44 - CONCLUSION: 1. Uncomplicated biliary catheter change. 2. Malfunction of the original catheter was due to the fact that the [place] loop had retracted above the sphincter of [place] into the common bile duct. 3. Patient was instructed to leave the catheter to gravity drainage for 24-48 hours. If symptoms resolve, can cap catheter the catheter at that time Noel Isaac MD Abdomen/Pelvis CT 08/19/16 1451 Signed Impressions: Service Date/Time: Friday, August 19, 2016 17:02 - CONCLUSION: 1. Stable appearance of internal/external biliary drain in good position. Stable pneumobilia. No new fluid collections within the abdomen and pelvis. 2. Mild constipation. Overall no significant change since August 15. Feng Rod MD Objective Remarks GENERAL: Thin female patient in NAD. Sitting upright on side of bed. SKIN: Warm and dry. No rash. HEENT: Normocephalic. Atraumatic. Pupils equal and round. No scleral icterus. No injection or drainage. Mucous membranes pink and moist. NECK: Supple. Trachea midline. CARDIOVASCULAR: Regular rate and rhythm. S1, S2 noted. No murmur appreciated. RESPIRATORY: No accessory muscle use. Clear to auscultation. Breath sounds equal bilaterally. GASTROINTESTINAL: Abdomen soft, nondistended, mild diffuse TTP, worse at RUQ. Normoactive bowel sounds x4. Biliary drain in place with green/brown drainage.. MUSCULOSKELETAL: No obvious deformities. Extremities without clubbing, cyanosis , or edema. NEUROLOGICAL: Awake and alert. No obvious cranial nerve deficits. Motor grossly within normal limits. Normal speech. PSYCHIATRIC: Appropriate mood and affect; insight and judgment normal. Medications and IVs Current Medications Medications (Trade) Dose Ordered Sig/Celso Route Start Time Stop Time Status Last Admin (NS Flush) 2 ml UNSCH PRN IV FLUSH 08/19/16 15:00 08/21/16 05:46 (D50w (Vial) Inj) 25 ml UNSCH PRN IV PUSH 08/19/16 19:30 (Glucagon Inj) 1 mg UNSCH PRN OTHER 08/19/16 19:30 (NS Flush) 2 ml UNSCH PRN IV FLUSH 08/19/16 19:30 08/21/16 05:46 (NS Flush) 2 ml BID IV FLUSH 08/19/16 21:00 08/21/16 09:15 (Zofran Inj) 4 mg Q6H PRN IVP 08/19/16 19:30 08/20/16 15:29 (Dulcolax Supp) 10 mg DAILY PRN RECTAL 08/19/16 19:30 (Dilaudid Pf Inj) 1 mg Q3H PRN IV 08/19/16 19:30 08/21/16 09:14 (Roxicodone) 5 mg Q4H PRN PO 08/19/16 19:30 (OxyCONTIN CR) 10 mg Q8HR PO 08/19/16 22:00 4/2/17 21:22 (Creon 12-38-60) 1 cap TIDAC PO 08/20/16 08:00 08/21/16 09:15 (Protonix Inj) 40 mg Q12H IV PUSH 08/19/16 20:00 08/21/16 09:15 (Levemir Inj) 5 units BIDAC SQ 08/20/16 07:00 08/21/16 06:00 (Miralax) 17 gm DAILY PO 08/20/16 09:00 Urinary Catheter: No Vascular Central Line Catheter: No A/P Problem List: (1) Biliary drain displacement ICD Code: T85.520A Status: Acute (2) Abdominal pain ICD Code: R10.9 Status: Acute (3) Chronic pain ICD Code: G89.29 Status: Acute (4) PSC (primary sclerosing cholangitis) ICD Code: K83.0 Status: Acute (5) DM (diabetes mellitus) ICD Code: E11.9 Status: Chronic Assessment and Plan 46-year-old female with a PMH of NHL s/p Chemo, PSC/Cirrhosis, Chronic Pain, Narcotic Dependence and DM who presented to the ER w/ complaints of severe abdominal pain starting earlier today. Biliary Drain Malfunction: recent admit 07/19-08/16/16 w/ prolonged hospitalization secondary to Sepsis/Bacteremia, found to have acute cholangitis s/p ERCP and Liver Biopsy, s/p Biliary Drain 07/31/16 by IR, drain currently capped, now w/ severe abdominal pain and increasing LFTs. CT Abd/Pelvis w/ stable appearance of internal/external biliary drain in good position and stable pneumobilia with no new fluid collections, images reviewed by me. ER physician spoke with Dr. Rod w/ Radiology who recommended IR consultation, Dr. Isaac consulted by ER physician, recommended drain be placed to gravity and will eval today for Biliary Drain Malfunction. -IR Consulted, biliary drain replaced / -LFTs trending down, abdominal pain improving PSC: Recent admit w/ Acute Cholangitis, s/p ERCP 07/26/16 w/ hepatic stricture, s /p liver biopsy w/ pathology suggestive of PSC/Cirrhosis. S/p eval by Dr. Newberry on last admit, [facility] has agreed to eval pt after drain in place x6 wks. Pt referred to [place] for 2nd opinion and instructed to follow up w/ [facility] w/ her primary GI doctor. Has not followed up yet, questionable compliance, hasn' t gotten prescriptions since her d/c on 08/16/16. -Counseled on compliance with medications and treatment plan, patient verbalized understanding -LFTs trended down to patient's baseline -outpatient f/up at [facility] with primary GI doctor Citrobacter Bacteremia: seen in aerobic blood cultures on last admission -ID recommended po Levaquin [id number] -repeat blood cultures 05/23 with staph epidermidis, likely contaminant; afebrile , no leukocytosis -continue to follow cultures Chronic Pain: w/ Narcotic Dependence, per previous records, pt w/ evidence of drug seeking behavior. -Resume home Oxycodone IR/SR. -wean off IV dilaudid Abdominal Pain: H/o chronic pain w/ acute exacerbation, likely compounded by malfunctioning biliary drain, caution w/ reported drug seeking behavior. (see prior discharge summary) -Continue home medications. -Protonix IV, Dilaudid IV q8h breakthrough pain DM: Uncontrolled. Non-compliant w/ meds. -Resume home Insulin. -Sliding scale w/ Accu-Cheks. DVT Prophylaxis: h/o coagulopathy requiring Vit K and FFP, no anticoagulation. INR 0.9. Written by Vidhya Mcgowan, acting as scribe for Dr. Sky on 08/21/16 at 09:58. All or portions of this note were transcribed by ROXANE Andrews . I , Dr. Ton Sky personally performed the history, physical exam, and medical decision making; and confirmed the accuracy of the information in the transcribed note. Authenticated by Dr. Ton Sky on 08/22/16 at 00:03. Discharge Planning Likely discharge today if tolerating oral intake. Discharge patient to home Condition on discharge: Improved Diabetic Diet as tolerated Ad Linda activity Rx written: Levaquin Follow-up with primary care physician and gastroenterology at [facility] Vidhya Mcgowan PA-C Aug 21, 2016 10:08 Anibal Sky DO Aug 22, 2016 00:05
[2016-08-21] MEDS ORDERED: LEVOFLOXACIN 500 MG TAB PO SCH (12:00)
[2016-08-21 12:05] VITALS: BP 106/71; PULSE 87; RESP 16; TEMP 98.4; O2SAT 97
[2016-08-21] MEDS ORDERED: LEVA750T PO (13:18)
--- NOTE | 2016-08-21 13:18 | HHI.DCPOC ---
Discharge Care Plan Diagnosis: (1) Biliary drain displacement (2) Abdominal pain (3) Elevated LFTs Goals to Promote Your Health * To prevent worsening of your condition and complications * To maintain your health at the optimal level Directions to Meet Your Goals Take your medications as prescribed Follow your dietary instruction Follow activity as directed Keep your appointments as scheduled Take your immunizations and boosters as scheduled If your symptoms worsen call your PCP, if no PCP go to Urgent Care Center or Emergency Room Smoking is Dangerous to Your Health. Avoid second hand smoke Call the 24-hour hour crisis hotline for domestic abuse at Vidhya Mcgowan PA-C Aug 21, 2016 1:18 pm
[2016-08-21] MEDS ORDERED: HYDROmorphone HCL PF 1 MG/ML VIAL IV PRN (13:30)
== END 2016-08-21 14:26 | disposition home or self-care (01) ==
LOC: NEPE 14:21 → NEDA 18:08 → NEPHCDU 20:59
PROVIDERS: ADMIT Hospitalist; ATTEND Hospitalist
DX: T85.520A Displacement of bile duct prosthesis, initial encounter (principal); E11.65 Type 2 diabetes mellitus with hyperglycemia; R10.9 Unspecified abdominal pain; G89.29 Other chronic pain; K83.0 Cholangitis; Z92.21 Personal history of antineoplastic chemotherapy; Z88.5 Allergy status to narcotic agent; Z88.8 Allergy status to other drugs, medicaments and biological substances; Z85.72 Personal history of non-Hodgkin lymphomas; Z90.81 Acquired absence of spleen; Z79.4 Long term (current) use of insulin; Z91.14 Patient's other noncompliance with medication regimen; Z98.890 Other specified postprocedural states; Y83.1 Surgical operation with implant of artificial internal device as the cause of abnormal reaction of the patient, or of later complication, without mention of misadventure at the time of the procedure
CPT/HCPCS: 47536; 74177; 80053; 81001; 82948; 83605; 83690; 83735; 85007; 85027; 85610; 85730; 87040; 87149; 87186; 87205; 93005; 96361; 96365; 96375; 99152; 99153; 99285; C1729; C1769; C1887; C9113; G0378; J1170; J1815; J1956; J2250; J2405; J2543; J3010; J7030; J7040; Q9967

== ENCOUNTER 2016-09-04 18:10 | Emergency (ER) | payer OTHER ==
[~2016-09-04] VITALS: Ht 162.6 cm; Wt 50.0 kg
[~2016-09-04 18:10] MED LIST changes: +LEVA750T PO
[2016-09-04 18:14] VITALS: BP 143/92; PULSE 100; RESP 20; TEMP 99; O2SAT 97
[2016-09-04] MEDS ORDERED: SODIUM CHLOR 0.9% 1000 ML INJ 1,000 ML IV SCH (23:59)
[2016-09-05] MEDS ORDERED: MORPHINE SULFATE 4 MG/ML INJ IV PUSH ONE
[2016-09-05] MEDS ORDERED: ONDANSETRON HCL 4 MG/2 ML VIAL IVP ONE
--- NOTE | 2016-09-05 00:14 | PD ---
HPI Chief Complaint: GI Complaint Time Seen by Provider: 23:49 Travel History International Travel<30 days: No Contact w/Intl Traveler<30days: No Traveled to known affect area: No History of Present Illness HPI 46 years old female complains of abdominal pain with nausea. Patient has history of chronic recurrent abdominal pain with nausea. Patient has biliary drain in place. Patient states that she was admitted to [facility] and discharged 4 days ago. Patient was seen by personal physician this morning. Patient states that she has increasing pain and nausea for the past few days. Patient denies any fever chills. Patient denies any dysuria or frequency. Patient denies any blood in the stool. Patient states that she was on oxycodone for pain and that does not help to alleviate the abdominal pain. Patient also has history of primary sclerosing cholangitis and diabetes. 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) Cardiovascular Problems: No Chemotherapy: Yes (10/02) Chest Pain: Yes Cirrhosis: Yes Diabetes: Yes Diminished Hearing: No Endocrine: Yes Gastrointestinal Disorders: Yes (NON-FUNCTIONAL GALLBLADDER) Genitourinary: Yes Headaches: No Heparin Induced Thrombocytopen: No Implanted Vascular Access Dvce: Yes Kidney Stones: Yes Musculoskeletal: Yes Psychiatric: Yes (SLIGHTLY CLAUSTROPHOBIC) Respiratory: No Immunizations Current: No Ulcer: Yes Menopausal: Yes : 2 Para: 2 Miscarriage: 0 : 0 Past Surgical History Abdominal Surgery: Yes (splenectomy, liver biopsy) Body Medical Devices: BILIARY DRAIN Other Surgery: Yes (BILIARY DRAIN PLACED, LIVER BIOPSY) Social History Alcohol Use: No Tobacco Use: No Substance Use: No Allergies-Medications (Allergen,Severity, Reaction): Coded Allergies: Gadolinium Derivatives (Verified Allergy, Severe, BREATHING PROBLEMS, N/V, CHILLS, 09/04/16) MRI PRECAUTION (Verified Allergy, Severe, NAUSEA; PER PATIENT IT IS A GADOLINIUM ALLERGY KMD 11/25/12, 09/04/16) Morphine (Verified Allergy, Severe, BREATHING PROBLEMS, 09/04/16) Toradol (Verified Allergy, Severe, Shortness of Breath, 09/04/16) *MDRO Multi-Drug Resistant Organism (Verified Adverse Reaction, Unknown, MRSA, 09/04/16) MRSA (abdomen) - 03/2013, 04/2014 MRSA PCR (nares) POSITIVE - 07/19/16 Reported Meds & Prescriptions Reported Meds & Active Scripts Active Levaquin (Levofloxacin) 750 Mg Tab 750 Mg PO DAILY Oxycodone (Oxycodone HCl) 5 Mg Tab 5 Mg PO Q4H PRN Oxycontin (Oxycodone HCl) 10 Mg Tab 10 Mg PO Q8HR [Ursodiol] 300 MG Cap 300 Mg PO BIDAC 30 Days Polyethylene Glycol 3350 Powder (Polyethylene Glycol) 17 Gm Pow 17 Gm PO DAILY Pantoprazole (Pantoprazole Sodium) 40 Mg Tab 40 Mg PO DAILY Creon (Amylase/Lipase/Protease) 12,000-38,000-60,000 Units Cap 1 Cap PO TIDAC 30 Days Humalog Inj (Insulin Human Lispro) 1,000 Unit/10 Ml Vial 1 Units SQ ACHS Max dose at bedtime:( )units; sugars< 70,(0)units; sugars 150-199,(1)unit; sugars 200-249,(3)units; sugars 250-299,(5)units; sugars 300-349,(7)units; sugars more than 349,(9)units. Lantus Inj (Insulin Glargine) 1,000 Unit/10 Ml Vial 5 Units SQ BIDAC 30 Days Review of Systems General / Constitutional: No: Fever Eyes: No: Visual changes HENT: No: Headaches Cardiovascular: No: Chest Pain or Discomfort Respiratory: No: Shortness of Breath Gastrointestinal: Positive: Nausea, Abdominal Pain Genitourinary: No: Dysuria Musculoskeletal: No: Pain Skin: No Rash Neurologic: No: Weakness Psychiatric: No: Depression Endocrine: No: Polydipsia Hematologic/Lymphatic: No: Easy Bruising Physical Exam Narrative GENERAL: Well-nourished, well-developed patient. SKIN: Focused skin assessment warm/dry. HEAD: Normocephalic. EYES: No scleral icterus. No injection or drainage. NECK: Supple, trachea midline. No JVD or lymphadenopathy. CARDIOVASCULAR: Regular rate and rhythm without murmurs, gallops, or rubs. RESPIRATORY: Breath sounds equal bilaterally. No accessory muscle use. GASTROINTESTINAL: Abdomen soft, nondistended. Biliary drain in place. Patient has moderate diffuse tenderness over the abdomen. No rebound tenderness. No mass. MUSCULOSKELETAL: No cyanosis, or edema. BACK: Nontender without obvious deformity. No CVA tenderness. Neurologic exam normal. Data Data Last Documented VS Vital Signs Date Time Temp Pulse Resp B/P Pulse Ox O2 Delivery O2 Flow Rate FiO2 09/05/16 00:20 99 20 141/93 100 09/04/16 18:14 99.0 Orders Complete Blood Count With Diff (09/04/16 23:59) Comprehensive Metabolic Panel (09/04/16 23:59) Lipase (09/04/16 23:59) Prothrombin Time / Inr (Pt) (09/04/16 23:59) Act Partial Throm Time (Ptt) (09/04/16 23:59) Urinalysis - C+S If Indicated (09/04/16 23:59) Abdomen, Flat & Upright (09/04/16 ) Iv Access Insert/Monitor (09/04/16 23:59) Ecg Monitoring (09/04/16 23:59) Oximetry (09/04/16 23:59) Morphine Inj (Morphine Inj) (09/05/16 00:00) Ondansetron Inj (Zofran Inj) (09/05/16 00:00) Sodium Chlor 0.9% 1000 Ml Inj (Ns 1000 M (09/04/16 23:59) Hydromorphone Pf Inj (Dilaudid Pf Inj) (09/05/16 00:15) Ondansetron Inj (Zofran Inj) (09/05/16 00:28) Labs Laboratory Tests Test 09/05/16 00:05 White Blood Count 9.7 TH/MM3 Red Blood Count 4.18 MIL/MM3 Hemoglobin 11.4 GM/DL Hematocrit 34.6 % Mean Corpuscular Volume 82.8 FL Mean Corpuscular Hemoglobin 27.3 PG Mean Corpuscular Hemoglobin 33.0 % Concent Red Cell Distribution Width 19.2 % Platelet Count 437 TH/MM3 Mean Platelet Volume 10.6 FL Neutrophils (%) (Auto) % Lymphocytes (%) (Auto) % Monocytes (%) (Auto) % Eosinophils (%) (Auto) % Basophils (%) (Auto) % Neutrophils # (Auto) TH/MM3 Lymphocytes # (Auto) TH/MM3 Monocytes # (Auto) TH/MM3 Eosinophils # (Auto) TH/MM3 Basophils # (Auto) TH/MM3 CBC Comment AUTO DIFF Differential Total Cells 100 Counted Neutrophils % (Manual) 77 % Band Neutrophils % 1 % Lymphocytes % 16 % Monocytes % 5 % Basophils % 1 % Neutrophils # (Manual) 7.6 TH/MM3 Differential Comment FINAL DIFF MANUAL Platelet Estimate HIGH Platelet Morphology Comment ENLARGED Target Cells 2+ [place] Bodies PRESENT Prothrombin Time 10.0 SEC Prothromb Time International 0.9 RATIO Ratio Activated Partial 26.4 SEC Thromboplast Time Sodium Level 134 MEQ/L Potassium Level 3.3 MEQ/L Chloride Level 100 MEQ/L Carbon Dioxide Level 27.1 MEQ/L Anion Gap 7 MEQ/L Blood Urea Nitrogen 12 MG/DL Creatinine 0.29 MG/DL Estimat Glomerular Filtration 249 ML/MIN Rate Random Glucose 267 MG/DL Calcium Level 9.1 MG/DL Total Bilirubin 2.4 MG/DL Aspartate Amino Transf 163 U/L (AST/SGOT) Alanine Aminotransferase 157 U/L (ALT/SGPT) Alkaline Phosphatase 1817 U/L Total Protein 6.9 GM/DL Albumin 2.6 GM/DL Lipase 616 U/L MDM Medical Decision Making Medical Screen Exam Complete: Yes Emergency Medical Condition: Yes Interpretation(s) 2 AM. Last Impressions Abdomen X-Ray 09/04/16 0000 Signed Impressions: Service Date/Time: Monday, September 05, 2016 00:39 - CONCLUSION: Normal examination with a cholangiogram catheter in good position. Moderate stool throughout the colon. Fadi Deng MD 2 AM. CBC within normal limit. Sodium 134. Potassium 3.3. Lipase 616 Differential Diagnosis Differential diagnosis including gastritis, PUD, pancreatitis, colitis, UTI, pyelonephritis, acute exacerbation of chronic pain. Narrative Course 46 years old female with worsening of abdominal pain and nausea. History of biliary drain in place. Normal saline solution 1 25 cc an hour. Morphine 4 mg IV. Zofran 4 mg IV. Patient has mild elevation of lipase. Diagnosis Primary Impression: abdominal pain, acute and chronic Additional Impression: Pancreatitis Qualified Code: K85.90 - Acute pancreatitis without infection or necrosis, unspecified pancreatitis type Patient Instructions: General Instructions Additional Instructions: Take medications as needed for pain and nausea. Follow-up with personal physician GI specialist. Return if worse. Med/Other Pt SpecificInfo: Prescription(s) given Scripts Hydrocodone-Acetaminophen ([place])5-325 mg Tab1 Tab PO Q6H PRN (PAIN) #20 TAB Ref 0 Prov:Pete Kirk MD 4/19/17 Promethazine (Phenergan)25 Mg Tab25 Mg PO Q6H PRN (Nausea/Vomiting) #20 TAB Ref 0 Prov:Pete Kirk MD 09/05/16 Ondansetron Odt (Zofran Odt)4 Mg Tab4 Mg SL Q6HR PRN (Nausea/Vomiting) #20 TAB Prov:Pete Kirk MD 09/05/16 Disposition: 01 DISCHARGE HOME Condition: Stable Pete Kirk MD Sep 05, 2016 00:13
[2016-09-05] MEDS ORDERED: HYDROmorphone HCL PF 1 MG/ML VIAL IM ONE (00:15)
[2016-09-05 00:20] VITALS: BP 141/93; PULSE 99; RESP 20; O2SAT 100
[2016-09-05] MEDS ORDERED: ONDANSETRON HCL 4 MG/2 ML VIAL ONE (00:28)
[2016-09-05 00:29] LABS: HEMATOCRIT 34.6 % (35.0-46.0); MEAN CELL VOLUME 82.8 FL (80.0-100.0); MEAN CORPUSCULAR HEMOGLOBIN 27.3 PG (27.0-34.0); PLATELET COUNT 437 TH/MM3 (150-450); RED BLOOD COUNT 4.18 MIL/MM3 (4.00-5.30); RED CELL DISTRIBUTION WIDTH 19.2 % (11.6-17.2); WHITE BLOOD COUNT 9.7 TH/MM3 (4.0-11.0)
[2016-09-05 00:40] LABS: APTT (PATIENT) 26.4 SEC (24.3-30.1); INTERNATIONAL NORMALIZED RATIO 0.9 RATIO
[2016-09-05 00:45] LABS: HEMO FLAGS AUTO DIFF
[2016-09-05 00:49] LABS: ANION GAP 7 MEQ/L (5-15); AST (GOT) 163 U/L (15-37); BICARBONATE 27.1 MEQ/L (21.0-32.0); BLOOD UREA NITROGEN 12 MG/DL (7-18); CHLORIDE 100 MEQ/L (98-107); GLOMERULAR FILTRATION RATE 249 ML/MIN (>89); POTASSIUM 3.3 MEQ/L (3.5-5.1); SODIUM (NA) 134 MEQ/L (136-145)
[2016-09-05 00:56] LABS: ALT (GPT) 157 U/L (10-53); TOTAL BILIRUBIN ADULT 2.4 MG/DL (0.2-1.0)
--- NOTE | 2016-09-05 01:08 | RADRPT ---
EXAM DATE/TIME: 09/05/2016 00:39 [facility] COMPARISON: No previous studies available for comparison. INDICATIONS : Right flank pain. MEDICAL HISTORY : Non hodgkins lymphoma. Diabetes SURGICAL HISTORY : Splenectomy. Biliary cath ENCOUNTER: Initial ACUITY: 2 days PAIN SCORE: 8/10 LOCATION: Right abdomen FINDINGS: Supine and upright views of the abdomen were performed. The abdominal bowel gas pattern is normal. No air fluid levels are seen. No abnormal masses, calcifications, or organomegaly is seen. The visu alized lower lungs are clear. No evidence of free intraperitoneal gas. The osseous structures are u nremarkable. CONCLUSION: Normal examination with a cholangiogram catheter in good position. Moderate stool throughout the col on. Fadi Deng MD on September 05, 2016 at 1:06 Board Certified Radiologist. This report was verified electronically.
[2016-09-05 01:20] LABS: ALKALINE PHOSPHATASE 1817 U/L (45-117)
[2016-09-05 01:37] LABS: BANDS 1 % (0-6); BASOPHILS 1 % (0-2); NEUTROPHIL # MANUAL DIFF 7.6 TH/MM3 (1.8-7.7); POLYS (SEG NEUTROPHILS) 77 % (16-70); WBC DIFF SAMPLE 100
[2016-09-05 01:38] LABS: HOWELL-JOLLY BODIES PRESENT (NONE SEEN); TARGET CELLS 2+ (NORMAL)
[2016-09-05 01:40] LABS: PLATELET ESTIMATE SMEAR HIGH (NORMAL); PLATELET MORPHOLOGY ENLARGED (NORMAL); SCAN/DIFF FINAL DIFF MANUAL
[2016-09-05 01:59] VITALS: BP 141/76; PULSE 87; RESP 20; O2SAT 97
[2016-09-05] MEDS ORDERED: NORC5TAB PO (02:09)
[2016-09-05] MEDS ORDERED: PROM25TA5 PO (02:09)
[2016-09-05] MEDS ORDERED: ZOFR4TAB3 SL (02:09)
== END 2016-09-05 02:12 | disposition home or self-care (01) ==
LOC: NEPC 18:10
DX: K85.90 Acute pancreatitis without necrosis or infection, unspecified (principal)
CPT/HCPCS: 74020; 80053; 83690; 85007; 85027; 85610; 85730; 96372; 96374; 99284; J1170; J2405

== ENCOUNTER 2016-09-11 09:24 | Emergency (ER) | payer OTHER ==
[~2016-09-11 09:24] MED LIST changes: +NORC5TAB PO; +PROM25TA5 PO; +ZOFR4TAB3 SL
[2016-09-11 09:25] VITALS: BP 147/87; PULSE 85; RESP 17; TEMP 98.1; O2SAT 100
[2016-09-11] MEDS ORDERED: LANTUS2P SQ (09:49)
[2016-09-11] MEDS ORDERED: ONDANSETRON HCL 4 MG/2 ML VIAL IV PUSH ONE ×2 (10:15→12:30)
[2016-09-11] MEDS ORDERED: HYDROmorphone HCL PF 1 MG/ML VIAL IV PUSH ONE ×2 (10:30→12:30)
[2016-09-11 10:42] LABS: APTT (PATIENT) 26.1 SEC (24.3-30.1); INTERNATIONAL NORMALIZED RATIO 0.9 RATIO; PROTHROMBIN TIME - PATIENT 10.3 SEC (9.8-11.6)
[2016-09-11 10:44] LABS: AUTOMATED NEUTROPHIL # 6.3 TH/MM3 (1.8-7.7); BASOPHIL # 0.2 TH/MM3 (0-0.2); BASOPHIL % 2.2 % (0.0-2.0); EOSINOPHIL % 0.6 % (0.0-4.0); HEMATOCRIT 36.1 % (35.0-46.0); LYMPH % 7.8 % (9.0-44.0); LYMPHOCYTE # 0.6 TH/MM3 (1.0-4.8); MEAN CELL VOLUME 84.2 FL (80.0-100.0); MEAN CORPUSCULAR HEMOGLOBIN 28.3 PG (27.0-34.0); MEAN CORPUSCULAR HGB CONC 33.6 % (32.0-36.0); MONO % 12.8 % (0.0-8.0); NEUT % 76.6 % (16.0-70.0); PLATELET COUNT 342 TH/MM3 (150-450); RED BLOOD COUNT 4.29 MIL/MM3 (4.00-5.30); RED CELL DISTRIBUTION WIDTH 19.1 % (11.6-17.2); WHITE BLOOD COUNT 8.3 TH/MM3 (4.0-11.0)
[2016-09-11 10:46] LABS: HEMO FLAGS AUTO DIFF
[2016-09-11 10:52] LABS: ALT (GPT) 149 U/L (10-53); ANION GAP 9 MEQ/L (5-15); AST (GOT) 130 U/L (15-37); BICARBONATE 27.5 MEQ/L (21.0-32.0); BLOOD UREA NITROGEN 6 MG/DL (7-18); CHLORIDE 103 MEQ/L (98-107); GLOMERULAR FILTRATION RATE 239 ML/MIN (>89); MAGNESIUM 1.7 MG/DL (1.5-2.5); POTASSIUM 3.1 MEQ/L (3.5-5.1); SODIUM (NA) 139 MEQ/L (136-145)
[2016-09-11 11:05] LABS: ALKALINE PHOSPHATASE 1496 U/L (45-117); TOTAL BILIRUBIN ADULT 1.9 MG/DL (0.2-1.0)
[2016-09-11 11:15] LABS: HOWELL-JOLLY BODIES PRESENT (NONE SEEN); TARGET CELLS 2+ (NORMAL)
[2016-09-11 11:16] LABS: PLATELET ESTIMATE SMEAR HIGH (NORMAL); PLATELET MORPHOLOGY ENLARGED (NORMAL); SCAN/DIFF AUTO DIFF CONFIRMED
[2016-09-11] MEDS ORDERED: IOHEXOL 350 MG/ML 10 ML VIAL (for RAD DIAG) IV ONE (11:33)
--- NOTE | 2016-09-11 11:58 | RADRPT ---
EXAM DATE/TIME: 09/11/2016 11:19 [facility] COMPARISON: CT ABDOMEN & PELVIS W CONTRAST, September 08, 2014, 1:31. CT ABDOMEN & PELVIS W CONTRAST, February 28 16, 18:52. MRCP W/O CONTRAST, April 19, 2016, 18:24. MRCP W/O CONTRAST, July 30, 2016, 13:21. CT ABDOMEN & PELVIS W CONTRAST, August 15, 2016, 17:13. CT ABDOMEN & PELVIS W CONTRAST, August 19, 17:02. INDICATIONS : Vomiting bile. IV CONTRAST: 95 cc Omnipaque 350 (iohexol) IV ORAL CONTRAST: No oral contrast ingested. RADIATION DOSE: 7.05 CTDIvol (mGy) MEDICAL HISTORY : Diabetes, Non-Hodgkins Lymphoma, cirrhosis SURGICAL HISTORY : Splenectomy. ENCOUNTER: Initial ACUITY: 1 day PAIN SCALE: 6/10 LOCATION: Bilateral abdomen TECHNIQUE: Volumetric scanning of the abdomen and pelvis was performed. Using automated exposure control and ad justment of the mA and/or kV according to patient size, radiation dose was kept as low as reasonably achievable to obtain optimal diagnostic quality images. FINDINGS: LOWER LUNGS: The visualized lower lungs are clear. LIVER: Left lobe hypertrophy with nodular contours indicative of cirrhosis. There is chronic capsular retrac tion along the lateral margin of the right anterior liver. Pneumobilia remains present. There is a in ternal/external bile duct drain present which extends to the left lobe the liver, through the common duct, and distal end looped within the duodenum at the junction of the second and third portion. Ther e is minimal intrahepatic bile duct distention is similar to the prior examinations. No enhancing marcelina er lesion is identified. The gallbladder is absent. Portal vein demonstrates no abnormality. SPLEEN: Surgically absent. There is a clip in the left upper quadrant. PANCREAS: The pancreas has a stable appearance with abnormal duct dilatation and the pancreatic tail measuring up to 6 mm with abrupt caliber change in the proximal body or neck region. This has been present on [facility] prior studies dating back to 2014. No mass is identified at the transition point. There is no pancreas calcifications. KIDNEYS: Normal in size and shape. There is no mass or hydronephrosis. There is a stable 7 mm nonobstructing stone in the left lower pole collecting system. ADRENAL GLANDS: Within normal limits. VASCULAR: There is no aortic aneurysm. There is mild atherosclerotic disease. BOWEL/MESENTERY: The stomach, small bowel, and colon demonstrate no acute abnormality. There is no free intraperitone al air. There is contrast within the appendix. Trace perihepatic free fluid is present. ABDOMINAL WALL: Within normal limits. RETROPERITONEUM: There is no lymphadenopathy. BLADDER: No wall thickening or mass. REPRODUCTIVE: Within normal limits. INGUINAL: There is no lymphadenopathy or hernia. MUSCULOSKELETAL: No acute osseous abnormality is identified. There is a stable bone island in the right femoral head. CONCLUSION: 1. Liver demonstrates morphology characteristic of cirrhosis. No enhancing liver lesion is identified . 2. Internal and external bile duct drain remains present. Distal end is looped within the duodenum. T here is stable mild distention of the intrahepatic bile ducts but no significant bile duct dilatation is present. 3. Stable appearance of the pancreas with dilated duct in the distal body and tail with abrupt calibe r change in the midline. This has been present since at least 2014 and is of uncertain etiology. No m ass is visualized so a benign stricture is a consideration. Suggest continued attention to this that followup imaging. 4. Trace perihepatic free fluid. Mele Yoo MD on September 11, 2016 at 11:43 Board Certified Radiologist. This report was verified electronically.
[2016-09-11 12:10] LABS: BLOOD, URINE NEG (NEG); COMMENT (UR) CULT NOT INDICATED; CULTURE IF INDICATED CULT NOT INDICATED; GLUCOSE,URINE TRACE mg/dL (NEG); KETONE, URINE NEG (NEG); MUCUS URINE FEW /lpf (OCC); NITRITE,URINE NEG (NEG); PH, URINE 7.5 (5.0-8.5); SQUAMOUS EPITHELIAL CELL URINE 3 /hpf (0-5); URINE COLOR YELLOW (YELLW/STRAW)
[2016-09-11] MEDS ORDERED: ZOFR4TAB3 SL (12:25)
--- NOTE | 2016-09-11 12:26 | PD ---
HPI Chief Complaint: GI Complaint Time Seen by Provider: 10:08 Travel History International Travel<30 days: No Contact w/Intl Traveler<30days: No Traveled to known affect area: No History of Present Illness HPI 46-year-old female notes nonbloody emesis and abdominal pain. She states she talked with her international exchange coordinator at [facility] who said she likely will need to be transferred up there. She states she's working on getting on the transplant list. She states that she hasn't had any fever or other concurrent complaints. She notes multiple episodes. She denies specific modifying factors. She provides me with a number of her international exchange coordinator. Quality of pain is sharp. It is severe per patient. Duration is months. She states it feels worse today. 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) Cardiovascular Problems: No Chemotherapy: Yes (10/02) Chest Pain: Yes Cirrhosis: Yes Diabetes: Yes Patient Takes Glucophage: Yes Diminished Hearing: No Endocrine: Yes Gastrointestinal Disorders: Yes (NON-FUNCTIONAL GALLBLADDER) Genitourinary: Yes Headaches: No Heparin Induced Thrombocytopen: No Hypertension: No Implanted Vascular Access Dvce: Yes Kidney Stones: Yes Medical other: Yes (HX OF ENLARGED SPLEEN, SPLENECTOMY 2004) Musculoskeletal: Yes Psychiatric: Yes (SLIGHTLY CLAUSTROPHOBIC) Respiratory: No Immunizations Current: No Ulcer: Yes ?: Not Menopausal: Yes : 2 Para: 2 Miscarriage: 0 : 0 Past Surgical History Abdominal Surgery: Yes (splenectomy, liver biopsy) Body Medical Devices: BILIARY DRAIN Neurologic Surgery: No Other Surgery: Yes (BILIARY DRAIN PLACED, LIVER BIOPSY) Social History Alcohol Use: No Tobacco Use: No Substance Use: No Allergies-Medications (Allergen,Severity, Reaction): Coded Allergies: Gadolinium Derivatives (Verified Allergy, Severe, BREATHING PROBLEMS, N/V, CHILLS, 09/04/16) MRI PRECAUTION (Verified Allergy, Severe, NAUSEA; PER PATIENT IT IS A GADOLINIUM ALLERGY KMD 11/25/12, 09/04/16) Morphine (Verified Allergy, Severe, BREATHING PROBLEMS, 09/04/16) Toradol (Verified Allergy, Severe, Shortness of Breath, 09/04/16) *MDRO Multi-Drug Resistant Organism (Verified Adverse Reaction, Unknown, MRSA, 09/04/16) MRSA (abdomen) - 03/2013, 04/2014 MRSA PCR (nares) POSITIVE - 07/19/16 Reported Meds & Prescriptions Reported Meds & Active Scripts Active Zofran Odt (Ondansetron Odt) 4 Mg Tab 4 Mg SL Q6HR PRN Humalog Inj (Insulin Human Lispro) 1,000 Unit/10 Ml Vial 1 Units SQ ACHS Max dose at bedtime:( )units; sugars< 70,(0)units; sugars 150-199,(1)unit; sugars 200-249,(3)units; sugars 250-299,(5)units; sugars 300-349,(7)units; sugars more than 349,(9)units. Reported Lantus Inj (Insulin Glargine) 1,000 Unit/10 Ml Vial 30 Units SQ HS Review of Systems Except as stated in HPI: all other systems reviewed are Neg Physical Exam Narrative GENERAL: thin, well-developed patient. SKIN: Warm and dry. HEAD: Normocephalic and atraumatic. EYES: No injection or drainage. ENT: No nasal drainage noted. NECK: Supple, trachea midline. CARDIOVASCULAR: Regular rate and rhythm RESPIRATORY: No increased effort. No accessory muscle use. GASTROINTESTINAL: Abdomen soft, ttp and right upper quadrant, nondistended. NEUROLOGICAL: Awake and alert. Moves all extremities. Normal speech. Data Data Last Documented VS Vital Signs Date Time Temp Pulse Resp B/P Pulse Ox O2 Delivery O2 Flow Rate FiO2 09/11/16 09:44 16 09/11/16 09:25 98.1 85 147/87 100 Orders Complete Blood Count With Diff (09/11/16 10:08) Comprehensive Metabolic Panel (09/11/16 10:08) Urinalysis - C+S If Indicated (09/11/16 10:08) Lipase (09/11/16 10:08) Iv Access Insert/Monitor (09/11/16 10:08) Magnesium (Mg) (09/11/16 10:08) Phosphorus (Po4) (09/11/16 10:08) Act Partial Throm Time (Ptt) (09/11/16 10:08) Prothrombin Time / Inr (Pt) (09/11/16 10:08) Ammonia (09/11/16 10:08) Ondansetron Inj (Zofran Inj) (09/11/16 10:15) Hydromorphone Pf Inj (Dilaudid Pf Inj) (09/11/16 10:30) Ct Abd/Pel W Iv Contrast(Rout) (09/11/16 ) Iohexol 350 Inj (Omnipaque 350 Inj) (09/11/16 11:33) Radiology Film Requests (09/11/16 ) Ondansetron Inj (Zofran Inj) (09/11/16 12:30) Hydromorphone Pf Inj (Dilaudid Pf Inj) (09/11/16 12:30) Labs Laboratory Tests Test 09/11/16 09/11/16 10:20 11:45 White Blood Count 8.3 TH/MM3 Red Blood Count 4.29 MIL/MM3 Hemoglobin 12.1 GM/DL Hematocrit 36.1 % Mean Corpuscular Volume 84.2 FL Mean Corpuscular Hemoglobin 28.3 PG Mean Corpuscular Hemoglobin 33.6 % Concent Red Cell Distribution Width 19.1 % Platelet Count 342 TH/MM3 Mean Platelet Volume 11.1 FL Neutrophils (%) (Auto) 76.6 % Lymphocytes (%) (Auto) 7.8 % Monocytes (%) (Auto) 12.8 % Eosinophils (%) (Auto) 0.6 % Basophils (%) (Auto) 2.2 % Neutrophils # (Auto) 6.3 TH/MM3 Lymphocytes # (Auto) 0.6 TH/MM3 Monocytes # (Auto) 1.1 TH/MM3 Eosinophils # (Auto) 0.0 TH/MM3 Basophils # (Auto) 0.2 TH/MM3 CBC Comment AUTO DIFF Differential Comment AUTO DIFF CONFIRMED Platelet Estimate HIGH Platelet Morphology Comment ENLARGED Target Cells 2+ [place] Bodies PRESENT Prothrombin Time 10.3 SEC Prothromb Time International 0.9 RATIO Ratio Activated Partial 26.1 SEC Thromboplast Time Sodium Level 139 MEQ/L Potassium Level 3.1 MEQ/L Chloride Level 103 MEQ/L Carbon Dioxide Level 27.5 MEQ/L Anion Gap 9 MEQ/L Blood Urea Nitrogen 6 MG/DL Creatinine 0.30 MG/DL Estimat Glomerular Filtration 239 ML/MIN Rate Random Glucose 118 MG/DL Calcium Level 9.5 MG/DL Phosphorus Level 3.1 MG/DL Magnesium Level 1.7 MG/DL Total Bilirubin 1.9 MG/DL Aspartate Amino Transf 130 U/L (AST/SGOT) Alanine Aminotransferase 149 U/L (ALT/SGPT) Alkaline Phosphatase 1496 U/L Total Protein 7.3 GM/DL Albumin 2.8 GM/DL Lipase 385 U/L Urine Color YELLOW Urine Turbidity CLEAR Urine pH 7.5 Urine Specific [place] 1.023 Urine Protein TRACE mg/dL Urine Glucose (UA) TRACE mg/dL Urine Ketones NEG mg/dL Urine Occult Blood NEG Urine Nitrite NEG Urine Bilirubin NEG Urine Urobilinogen LESS THAN 2.0 MG/DL Urine Leukocyte Esterase NEG Urine RBC LESS THAN 1 /hpf Urine WBC LESS THAN 1 /hpf Urine Squamous Epithelial 3 /hpf Cells Urine Mucus FEW /lpf Microscopic Urinalysis Comment CULT NOT INDICATED MDM Medical Decision Making Medical Screen Exam Complete: Yes Emergency Medical Condition: Yes Medical Record Reviewed: Yes (past history confirm, recent visit reviewed) Interpretation(s) CBC & BMP Diagram 09/11/16 10:20 Last 24 hours Impressions Abdomen/Pelvis CT 09/11/16 0000 Signed Impressions: Service Date/Time: Sunday, September 11, 2016 11:19 - CONCLUSION: 1. Liver demonstrates morphology characteristic of cirrhosis. No enhancing liver lesion is identified. 2. Internal and external bile duct drain remains present. Distal end is looped within the duodenum. There is stable mild distention of the intrahepatic bile ducts but no significant bile duct dilatation is present. 3. Stable appearance of the pancreas with dilated duct in the distal body and tail with abrupt caliber change in the midline. This has been present since at least 2014 and is of uncertain etiology. No mass is visualized so a benign stricture is a consideration. Suggest continued attention to this that followup imaging. 4. Trace perihepatic free fluid. Mele Yoo MD Differential Diagnosis Biliary drain blockage, renal failure, electrolyte abnormality, pancreatitis Narrative Course Will check blood work and discuss with her international exchange coordinator Patient updated and agrees to CT, given Zofran, Dilaudid and fluids No emesis here, workup stable. Agrees to follow-up with transplant team on as an outpatient, Patient denies any new complaints, all questions answered. Patient knows that follow up is incumbent on them and to return to the emergency room immediately if new or worsening symptoms develop. Patient given strict return precautions, vitals reviewed and are normal, agrees to further workup as an outpatient. Physician Communication Physician Communication ollie her nurse international exchange coordinator states that they are working her up to see if she can be on the transplant list. She has needing triphasic CT Discussed with radiologist who will help coordinate triphasic CT Transplant team updated and agree to discharge and requests CD to go home with, will call her for close follow-up with home Zofran Diagnosis Primary Impression: abdominal pain, acute and chronic Additional Impression: Hypokalemia Patient Instructions: General Instructions Additional Instructions: return as needed, follow with the transplant team on , zofran as needed , keep hydrated Med/Other Pt SpecificInfo: Prescription(s) given Scripts Ondansetron Odt (Zofran Odt)4 Mg Tab4 Mg SL Q6HR PRN (Nausea/Vomiting) #10 TAB Ref 0 Prov:Cara Rogers MD 09/11/16 Disposition: 01 DISCHARGE HOME Condition: Stable Cara Rogers MD Sep 11, 2016 12:26
== END 2016-09-11 14:07 | disposition home or self-care (01) ==
LOC: NEPC 09:24
DX: R10.9 Unspecified abdominal pain (principal); E87.6 Hypokalemia; R11.10 Vomiting, unspecified; E11.9 Type 2 diabetes mellitus without complications; K74.60 Unspecified cirrhosis of liver; Z79.4 Long term (current) use of insulin; Z85.72 Personal history of non-Hodgkin lymphomas
CPT/HCPCS: 74177; 80053; 81001; 83690; 83735; 84100; 85025; 85610; 85730; 96374; 96375; 96376; 99284; J1170; J2405; Q9967

== ENCOUNTER 2017-01-14 10:21 | Inpatient (IN) | payer OTHER ==
[~2017-01-14] VITALS: Ht 152.4 cm; Wt 66.5 kg
[2017-01-14] VITALS (15 sets, daily range): BP systolic 61–112; BP diastolic 40–71; PULSE 94–143; RESP 15–22; TEMP 99–103.2; O2SAT 93–100
[~2017-01-14 10:21] MED LIST changes: -CREON12 PO; -LEVA750T PO; -NORC5TAB PO; -OXYC-259 PO; -OXYC-392 PO; -PANT40TA3 PO; -POLY17S PO; -PROM25TA5 PO; -Ursodiol PO
[2017-01-14] MEDS ORDERED: SODIUM CHLOR 0.9% 1000 ML INJ 1,000 ML IV ONE ×3 (10:36→13:45)
[2017-01-14] MEDS ORDERED: SODIUM CHLOR 0.9% 1000 ML INJ 800 ML IV ONE (10:36)
[2017-01-14] MEDS ORDERED: ACETAMINOPHEN 325 MG TAB PO ONE (10:45)
[2017-01-14] MEDS ORDERED: ONDANSETRON HCL 4 MG/2 ML VIAL IV ONE (10:45)
[2017-01-14] MEDS ORDERED: HYDROmorphone HCL PF 1 MG/ML VIAL IV PUSH ONE (10:45)
--- NOTE | 2017-01-14 11:08 | PD ---
HPI Chief Complaint: Abdominal Pain Time Seen by Provider: 10:26 Travel History International Travel<30 days: No Contact w/Intl Traveler<30days: No Traveled to known affect area: No History of Present Illness HPI The patient is a 46-year-old female who presents to the emergency department for 3 days of back pain, abdominal pain, nausea, and fever. The patient notes a three-day history of back pain located bilaterally in the mid lumbar region. She also complains of mild nausea, decreased appetite, dark colored urine. The patient denies any dysuria, frequency, or urgency. The patient also complains of fevers high as 104 at home. 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 She has been followed at [facility] in the past for possible future liver transplant, however, is not currently on the transplant list. She does note decreased appetite over the last several days with increasing weakness and pain. The patient denies any history of alcohol use. She denies any acute chest pain, cough, sore throat, or rash. However, a friend in the room does state that the patient's skin appears discolored. 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) Cardiovascular Problems: No Chemotherapy: Yes (10/02) Chest Pain: Yes Cirrhosis: Yes Diabetes: Yes Patient Takes Glucophage: No Diminished Hearing: No Endocrine: Yes Gastrointestinal Disorders: Yes (NON-FUNCTIONAL GALLBLADDER) Genitourinary: Yes Headaches: No Heparin Induced Thrombocytopen: No Hypertension: No Implanted Vascular Access Dvce: Yes Kidney Stones: Yes Medical other: Yes (HX OF ENLARGED SPLEEN, SPLENECTOMY 2004) Musculoskeletal: Yes Psychiatric: Yes (SLIGHTLY CLAUSTROPHOBIC) Respiratory: No Immunizations Current: No Migraines: No Thyroid Disease: No Ulcer: Yes ?: Not Menopausal: Yes : 2 Para: 2 Miscarriage: 0 : 0 Past Surgical History Abdominal Surgery: Yes (splenectomy, liver biopsy) Body Medical Devices: BILIARY DRAIN Neurologic Surgery: No Other Surgery: Yes (BILIARY DRAIN PLACED, LIVER BIOPSY) Social History Alcohol Use: No Tobacco Use: No Substance Use: No Allergies-Medications (Allergen,Severity, Reaction): Coded Allergies: MRI PRECAUTION (Verified Allergy, Severe, NAUSEA; PER PATIENT IT IS A GADOLINIUM ALLERGY KMD 11/25/12, 09/04/16) gadobenic acid (Unverified Allergy, Severe, BREATHING PROBLEMS, N/V,CHILLS , 01/01/17) gadodiamide (Unverified Allergy, Severe, BREATHING PROBLEMS, N/V,CHILLS, ) gadoteridol (Unverified Allergy, Severe, BREATHING PROBLEMS, N/V,CHILLS, ) ketorolac (Unverified Allergy, Severe, Shortness of Breath, 01/01/17) morphine (Unverified Allergy, Severe, BREATHING PROBLEMS, 01/01/17) *MDRO Multi-Drug Resistant Organism (Verified Adverse Reaction, Unknown, MRSA, 09/04/16) MRSA (abdomen) - 03/2013, 04/2014 MRSA PCR (nares) POSITIVE - 07/19/16 Reported Meds & Prescriptions Reported Meds & Active Scripts Active Zofran Odt (Ondansetron Odt) 4 Mg Tab 4 Mg SL Q6HR PRN Humalog Inj (Insulin Human Lispro) 1,000 Unit/10 Ml Vial 1 Units SQ ACHS Max dose at bedtime:( )units; sugars< 70,(0)units; sugars 150-199,(1)unit; sugars 200-249,(3)units; sugars 250-299,(5)units; sugars 300-349,(7)units; sugars more than 349,(9)units. Reported Lantus Inj (Insulin Glargine) 1,000 Unit/10 Ml Vial 30 Units SQ HS Review of Systems Except as stated in HPI: all other systems reviewed are Neg General / Constitutional: Positive: Fever HENT: No: Lightheadedness Cardiovascular: No: Chest Pain or Discomfort Respiratory: No: Cough, Shortness of Breath Gastrointestinal: Positive: Nausea, Abdominal Pain, Loss of Appetite, No: Vomiting, Diarrhea Genitourinary: Positive: Other (dark-colored urine), No: Dysuria Musculoskeletal: Positive: Weakness, Pain (back pain) Skin: Positive Change in Pigmentation Neurologic: Positive: Weakness Physical Exam Narrative GENERAL: Awake, alert, cachectic appearing 46-year-old female. SKIN: Focused skin assessment warm/dry. Jaundiced. HEAD: Atraumatic. Normocephalic. EYES: Pupils equal and round. Bilateral icterus. ENT: No nasal bleeding or discharge. Dry mucous membranes. NECK: Trachea midline. No JVD. CARDIOVASCULAR: Regular, tachycardic with a heart rate in the 130s. RESPIRATORY: No accessory muscle use. Diminished in the right base. GASTROINTESTINAL: Abdomen reveals an enlarged liver border. Mild tenderness. MUSCULOSKELETAL: No obvious deformities. No clubbing. No cyanosis. No edema. NEUROLOGICAL: Awake and alert. No obvious cranial nerve deficits. Motor grossly within normal limits. Normal speech. Nonfocal. PSYCHIATRIC: Appropriate mood and affect; insight and judgment normal. Data Data Last Documented VS Vital Signs Date Time Temp Pulse Resp B/P (MAP) Pulse Ox O2 Delivery O2 Flow Rate FiO2 01/14/17 15:15 62/46 (51) Automatic Cuff 01/14/17 14:57 100 01/14/17 13:48 99.0 01/14/17 13:48 94 Room Air 01/14/17 13:42 20 Orders Orders Electrocardiogram (01/14/17 10:36) Complete Blood Count With Diff (01/14/17 10:36) Comprehensive Metabolic Panel (01/14/17 10:36) Lactic Acid Sepsis Protocol (01/14/17 10:36) Lipase (01/14/17 10:36) Urinalysis - C+S If Indicated (01/14/17 10:36) Blood Culture (01/14/17 10:36) Chest, Single Ap (01/14/17 10:36) Blood Glucose (01/14/17 10:36) Ecg Monitoring (01/14/17 10:36) Iv Access Insert/Monitor (01/14/17 10:36) Oximetry (01/14/17 10:36) Oxygen Administration (01/14/17 10:36) Acetaminophen (Tylenol) (01/14/17 10:45) Ondansetron Inj (Zofran Inj) (01/14/17 10:45) Ct Abd/Pel W Iv Contrast(Rout) (01/14/17 10:36) Sodium Chlor 0.9% 1000 Ml Inj (Ns 1000 M (01/14/17 10:36) Sodium Chlor 0.9% 1000 Ml Inj (Ns 1000 M (01/14/17 10:36) Hydromorphone Pf Inj (Dilaudid Pf Inj) (01/14/17 10:45) Piperacil-Tazo 4.5 Gm Premix (Zosyn 4.5 (01/14/17 13:30) Sodium Chlor 0.9% 1000 Ml Inj (Ns 1000 M (01/14/17 13:45) Sodium Chlor 0.9% 1000 Ml Inj (Ns 1000 M (01/14/17 13:45) Norepinephrine-Dextrose Drip (Levophed-D (01/14/17 14:09) Terbutaline Inj (Brethine Inj) (01/14/17 14:15) Lactic Acid Sepsis Protocol (01/14/17 14:09) Iohexol 350 Inj (Omnipaque 350 Inj) (01/14/17 15:00) Cath For Specimen (01/14/17 15:17) Insulin Aspart Inj (Novolog Inj) (01/14/17 16:15) Urine Culture (01/14/17 16:00) Admit Order (Ed Use Only) (01/14/17 16:43) Labs Laboratory Tests Test 01/14/17 11:00 01/14/17 13:00 01/14/17 16:00 White Blood Count 10.7 TH/MM3 Red Blood Count 4.62 MIL/MM3 Hemoglobin 12.5 GM/DL Hematocrit 40.3 % Mean Corpuscular Volume 87.3 FL Mean Corpuscular Hemoglobin 27.1 PG Mean Corpuscular Hemoglobin Concent 31.1 % Red Cell Distribution Width 17.9 % Platelet Count 189 TH/MM3 Mean Platelet Volume 11.7 FL CBC Comment AUTO DIFF Differential Total Cells Counted 100 Neutrophils % (Manual) 72 % Band Neutrophils % 26 % Lymphocytes % 1 % Neutrophils # (Manual) 10.6 TH/MM3 Metamyelocytes 1 % Differential Comment FINAL DIFF MANUAL Toxic Vacuolation PRESENT Platelet Estimate NORMAL Platelet Morphology Comment ENLARGED Target Cells 1+ Blood Urea Nitrogen 29 MG/DL Creatinine 1.10 MG/DL Random Glucose 475 MG/DL Total Protein 5.4 GM/DL Albumin 1.5 GM/DL Calcium Level 7.8 MG/DL Alkaline Phosphatase 1173 U/L Aspartate Amino Transf (AST/SGOT) 155 U/L Alanine Aminotransferase (ALT/SGPT) 174 U/L Total Bilirubin 6.3 MG/DL Sodium Level 131 MEQ/L Potassium Level 3.9 MEQ/L Chloride Level 99 MEQ/L Carbon Dioxide Level 19.8 MEQ/L Anion Gap 12 MEQ/L Estimat Glomerular Filtration Rate 53 ML/MIN Lactic Acid Level 1.8 mmol/L Lipase 77 U/L Urine Color DARK-YELLOW Urine Turbidity HAZY Urine pH 5.5 Urine Specific [place] 1.022 Urine Protein 30 mg/dL Urine Glucose (UA) 1000 mg/dL Urine Ketones NEG mg/dL Urine Occult Blood NEG Urine Nitrite NEG Urine Bilirubin MOD Urine Urobilinogen LESS THAN 2.0 MG/DL Urine Leukocyte Esterase NEG Urine RBC 1 /hpf Urine WBC 16 /hpf Urine Squamous Epithelial Cells <1 /hpf Urine Transitional Epithelial Cells 2 /hpf Urine Amorphous Sediment RARE Urine Bacteria OCC /hpf Microscopic Urinalysis Comment CATH-CULTURE IND MDM Medical Decision Making Medical Screen Exam Complete: Yes Emergency Medical Condition: Yes Medical Record Reviewed: Yes Interpretation(s) EKG reveals sinus tachycardia with a heart rate of 137. Q wave noted in lead V1 and V2. Differential Diagnosis Differential diagnosis includes sepsis, pneumonia, UTI, cholangitis, dehydration , electrolyte abnormality, pyelonephritis, hyponatremia. Narrative Course IV was established, labs are drawn and sent, and the patient was placed on cardiac telemetry monitoring and continuous pulse oximetry monitoring. EKG was ordered and interpreted. Chest x-ray was obtained. Blood culture and lactic acid were sent to lab. The patient was administered 2 L of IV fluids. CT of the abdomen and pelvis was ordered with IV contrast. The patient's white count was normal, however, the patient had bandemia of 26. The patient's LFTs were elevated, glucose was elevated at 475, however, anion gap is normal. This does not appear to be DKA. Lactic acid was normal. The patient's blood pressure trended down to a systolic in the 60s, however heart rate did improve from the 140s down to 100 and her temperature came down to 99. The blood pressure did not correlate with her clinical exam as she was awake, alert, however, the patient was administered 2 more liters of IV fluids and placed on Levophed to keep the maps above 65. An ultrasound-guided IV was placed in the right upper extremity for the administration of Levophed. The patient's repeat blood glucose was 405, therefore, the patient was administered insulin 8 units subcutaneously. The patient had a manual blood pressure which revealed a systolic in the 60s, however, patient continued be awake and alert. The patient will be admitted to the intensive care unit, catheter UA was sent to lab. The on-call intake coordinator was paged for admission. UA reveals 16 WBCs, otherwise unremarkable. CT of the abdomen and pelvis reveals ascites. Critical Care Narrative Aggregate critical care time was 45 minutes. Time to perform other separately billable procedures was not included in the critical care time. My time did not include minutes spent treating any other patients simultaneously or on activities that did not directly contribute to the patient's treatment. The services I provided to this patient were to treat and/or prevent clinically significant deterioration that could result in: Septic shock, multiorgan dysfunction/failure, . I provided critical care services requiring my management, as noted below: Chart data review, documentation time, medication orders and management, vital sign assessments/reviewing monitor data, ordering and reviewing lab tests, ordering and interpreting/reviewing x-rays and diagnostic studies, care of the patient and discussion of the patient with the admitting physicians. Procedures Procedure Narrative I placed a 1.88 inch, 18-gauge ultrasound-guided IV in the right upper extremity using a linear probe. There was good blood return, the IV flowed easily, there is no obvious complications. The patient tolerated the procedure without difficulty. Sepsis Criteria SIRS Criteria (2 or more): Temp > 100.9 or < 96.8, Heart rate over 90, WBC > 10660, < 4000 or > 10% bands Severe Sepsis (+one): Hypotension Septic Shock Criteria: Unresponsive to 30ml/kg fluid bolus Criteria Outcome: Meets septic shock criteria Physician Communication Physician Communication The on-call intake coordinator was paged for admission. I discussed the patient with Dr. Marshall who agrees with admission. Diagnosis Primary Impression: Septic shock Additional Impressions: UTI (urinary tract infection) Qualified Codes: N10 - Acute pyelonephritis Ascites Qualified Codes: R18.8 - Other ascites Admitting Information Admitting Physician Requests: Admit Condition: Serious Burt Wilkins MD Jan 14, 2017 11:08
[2017-01-14 11:44] LABS: HEMATOCRIT 40.3 % (35.0-46.0); MEAN CELL VOLUME 87.3 FL (80.0-100.0); MEAN CORPUSCULAR HEMOGLOBIN 27.1 PG (27.0-34.0); MEAN CORPUSCULAR HGB CONC 31.1 % (32.0-36.0); PLATELET COUNT 189 TH/MM3 (150-450); RED BLOOD COUNT 4.62 MIL/MM3 (4.00-5.30); RED CELL DISTRIBUTION WIDTH 17.9 % (11.6-17.2); WHITE BLOOD COUNT 10.7 TH/MM3 (4.0-11.0)
[2017-01-14 11:45] LABS: HEMO FLAGS AUTO DIFF
--- NOTE | 2017-01-14 11:45 | RADRPT ---
EXAM DATE/TIME: 01/14/2017 11:09 [facility] COMPARISON: CHEST SINGLE AP, July 19, 2016, 17:23. INDICATIONS : Fever. MEDICAL HISTORY : Diabetes, Non-Hodgkins Lymphoma, cirrhosis. SURGICAL HISTORY : Splenectomy. ENCOUNTER: Initial ACUITY: 1 day PAIN SCORE: 0/10 LOCATION: Bilateral chest FINDINGS: A single view of the chest demonstrates the lungs to be symmetrically aerated without evidence of mas s, infiltrate or effusion. The cardiomediastinal contours are unremarkable. Osseous structures are intact. CONCLUSION: No acute disease. You Morales MD FACR on January 14, 2017 at 11:43 Board Certified Radiologist. This report was verified electronically.
[2017-01-14 12:21] LABS: BANDS 26 % (0-6); METAMYELOCYTES 1 % (0-1); NEUTROPHIL # MANUAL DIFF 10.6 TH/MM3 (1.8-7.7); POLYS (SEG NEUTROPHILS) 72 % (16-70); WBC DIFF SAMPLE 100
[2017-01-14 12:22] LABS: PLATELET ESTIMATE SMEAR NORMAL (NORMAL); PLATELET MORPHOLOGY ENLARGED (NORMAL); SCAN/DIFF FINAL DIFF MANUAL; TARGET CELLS 1+ (NORMAL); TOXIC VACUOLATION PRESENT (NONE SEEN)
[2017-01-14] MEDS ORDERED: PIPERACIL-TAZO 4.5 GM PREMIX 100 ML IV ONE (13:30)
[2017-01-14 13:52] LABS: ALKALINE PHOSPHATASE 1173 U/L (45-117); ALT (GPT) 174 U/L (10-53); ANION GAP 12 MEQ/L (5-15); AST (GOT) 155 U/L (15-37); BICARBONATE 19.8 MEQ/L (21.0-32.0); BLOOD UREA NITROGEN 29 MG/DL (7-18); CHLORIDE 99 MEQ/L (98-107); GLOMERULAR FILTRATION RATE 53 ML/MIN (>89); POTASSIUM 3.9 MEQ/L (3.5-5.1); SODIUM (NA) 131 MEQ/L (136-145); TOTAL BILIRUBIN ADULT 6.3 MG/DL (0.2-1.0)
[2017-01-14] MEDS ORDERED: NOREPINEPHRINE-DEXTROSE DRIP 250 ML IV PRN (14:09)
[2017-01-14] MEDS ORDERED: TERBUTALINE INJ 1 MG/ML AMP SQ PRN ×2 (14:15→17:30)
[2017-01-14] MEDS ORDERED: IOHEXOL 350 MG/ML 10 ML VIAL (for RAD DIAG) IVCONTRAST ONE (15:00)
--- NOTE | 2017-01-14 15:45 | RADRPT ---
EXAM DATE/TIME: 01/14/2017 14:53 [facility] COMPARISON: CT ABDOMEN & PELVIS W CONTRAST, September 11, 2016, 11:19. INDICATIONS : Diffuse abdomen pain with nausea and vomiting today. IV CONTRAST: 70 cc Omnipaque 350 (iohexol) IV ORAL CONTRAST: No oral contrast ingested. RADIATION DOSE: 6.64 CTDIvol (mGy) MEDICAL HISTORY : Lymphoma. Renal calculi. diabetes SURGICAL HISTORY : Splenectomy. ENCOUNTER: Initial ACUITY: 1 day PAIN SCALE: 8/10 LOCATION: Bilateral abdomen TECHNIQUE: Volumetric scanning of the abdomen and pelvis was performed. Using automated exposure control and adjustment of the mA and/or kV according to patient size, radiation dose was kept as low as reasonably achievable to obtain optimal diagnostic quality images. DICOM format image data is av ailable electronically for review and comparison. FINDINGS: Minimal bibasilar parenchymal changes are evident. There is moderate ascites. There is intrahepatic air in the biliary tree. There is inhomogeneous enhancement in the liver. Spleen is surgically abs ent. Pancreas is unremarkable. Renal stone is present on the left than obstruction. In the pelvis there is moderate ascites evident. Moderate stool is present in the colon. CONCLUSION: Moderate ascites is evident intrahepatic air evident. Inhomogeneous contrast enhancement of the liver. Nonobstructing left renal stone There is no free air. You Morales MD FACR on January 14, 2017 at 15:40 Board Certified Radiologist. This report was verified electronically.
[2017-01-14] MEDS ORDERED: INSULIN ASPART 1,000 UNITS/10 ML VIAL SQ ONE (16:15)
[2017-01-14 16:16] LABS: BACTERIA, URINE OCC /hpf; BLOOD, URINE NEG (NEG); GLUCOSE,URINE 1000 mg/dL (NEG); KETONE, URINE NEG (NEG); NITRITE,URINE NEG (NEG); PH, URINE 5.5 (5.0-8.5); SQUAMOUS EPITHELIAL CELL URINE <1 /hpf (0-5); TRANSITIONAL EPI CELLS, URINE 2 /hpf; URINE COLOR DARK-YELLOW (YELLW/STRAW)
[2017-01-14 16:26] LABS: COMMENT (UR) CATH-CULTURE IND; CULTURE IF INDICATED CATH CULTURE IND
--- NOTE | 2017-01-14 17:26 | HHI.HP ---
[facility] Service Critical Care Medicine Primary Care Physician Gilmar Matos, DO Admission Diagnosis septic shock, UTI, ascites, rule out cholangitis Diagnosis: (1) Septic shock Diagnosis: Principal (2) Sclerosing cholangitis Diagnosis: Principal (3) Calculus of kidney Diagnosis: Secondary (4) Non-Hodgkin lymphoma Diagnosis: Secondary (5) Diabetes mellitus Diagnosis: Principal (6) Ascites Diagnosis: Principal (7) Elevated LFTs Diagnosis: Principal (8) hepatic cirrhosis/fibrosis/chronic hepatitis Diagnosis: Principal Chief Complaint: Abdominal pain Travel History International Travel<30 Days: No Contact w/Intl Traveler <30 Da: No Traveled to Known Affected Are: No Sepsis Criteria Sepsis Criteria (SIRS+source): Infect source susp/known Severe Sepsis (+one): Organ Dysfunction, Hypotension History of Present Illness This is a 46-year-old female. Date of admission 01/06/2017. Past medical history includes PSC - follows Dr. Elian Moncada [facility], biliary stenosis/strictures, non-Hodgkin's lymphomas completed chemotherapy 2005, IVs mellitus, chronic abdominal pain, urolithiasis and history of MRSA. Back in July, patient had a liver biopsy revealed severe chronic hepatitis, bridging cirrhosis and grade 2/4,'s stage 3/4 biliary stasis, fatty liver. No signs of PBC or PSC. Patient presented as an years piece indicative of PSC. Transitions with elevated during hospitalization patient was on vasopressors for short period time. Patient be hospitalized in August at [facility]. Patient still has her gallbladder. Patient presented to [place] with a 2-3 day history generalized abdominal pain associated with nausea. Resume upon presentation patient was normotensive however became hypotensive. CT abdomen/pelvis revealed moderate ascites. Intrahepatic gas, similar to 06/05, nonobstructing left renal stone. Patient received 4 L normal saline and peripheral norepinephrine to maintain map. Patient is mentating appropriately present time. Received piperacillin/tazobactam P blood cultures sent 7 drawn. Lactate 1.8. Review of Systems Constitutional: COMPLAINS OF: Fatigue, Weight loss, DENIES: Fever, Weight gain , Chills, Dizziness Endocrine: DENIES: Polydipsia, Polyuria Eyes: DENIES: Blurred vision Ears, nose, mouth, throat: DENIES: Tinnitus Respiratory: DENIES: Apneas Cardiovascular: DENIES: Chest pain Gastrointestinal: COMPLAINS OF: Abdominal pain, Nausea, Vomiting, Anorexia, DENIES: Difficulty Swallowing Genitourinary: DENIES: Urgency Musculoskeletal: DENIES: Joint pain Integumentary: DENIES: Abnormal pigmentation Hematologic/lymphatic: DENIES: Bruising Immunologic/allergic: DENIES: Eczema Neurologic: DENIES: Abnormal gait Psychiatric: DENIES: Anxiety, Confusion, Depression Past Family Social History Allergies: Coded Allergies: MRI PRECAUTION (Verified Allergy, Severe, NAUSEA; PER PATIENT IT IS A GADOLINIUM ALLERGY KMD 11/25/12, 09/04/16) gadobenic acid (Unverified Allergy, Severe, BREATHING PROBLEMS, N/V,CHILLS , 01/01/17) gadodiamide (Unverified Allergy, Severe, BREATHING PROBLEMS, N/V,CHILLS, ) gadoteridol (Unverified Allergy, Severe, BREATHING PROBLEMS, N/V,CHILLS, ) ketorolac (Unverified Allergy, Severe, Shortness of Breath, 01/01/17) morphine (Unverified Allergy, Severe, BREATHING PROBLEMS, 01/01/17) Past Medical History Primary sclerosing cholangitis Biliary stenosis History of non-Hodgkin's lymphoma status post chemotherapy 2005 Diabetes mellitus Chronic abdominal pain Left-sided nephrolithiasis Past Surgical History History of ERCP Status post splenectomy History biliary drain History of shock lithotripsy Reported Medications Zofran Odt (Ondansetron Odt) 4 Mg Tab 4 Mg SL Q6HR PRN Humalog Inj (Insulin Human Lispro) 1,000 Unit/10 Ml Vial 1 Units SQ ACHS Max dose at bedtime:( )units; sugars< 70,(0)units; sugars 150-199,(1)unit; sugars 200-249,(3)units; sugars 250-299,(5)units; sugars 300-349,(7)units; sugars more than 349,(9)units. Reported Lantus Inj (Insulin Glargine) 1,000 Unit/10 Ml Vial 30 Units SQ HS Active Ordered Medications Reviewed in EMR Family History No family history of primary biliary cirrhosis. No history of heart disease. Social History Denies tobacco, alcohol or IV drug use Physical Exam Vital Signs Vital Signs Date Time Temp Pulse Resp B/P (MAP) Pulse Ox O2 Delivery O2 Flow Rate FiO2 01/14/17 15:15 62/46 (51) Automatic Cuff 01/14/17 14:57 100 70/47 (55) 01/14/17 14:46 94 63/43 01/14/17 14:45 102 61/41 (48) 01/14/17 13:48 99.0 01/14/17 13:48 94 Room Air 01/14/17 13:42 110 20 66/46 (53) 94 Room Air 01/14/17 13:31 118 20 67/46 (53) 93 Room Air 01/14/17 11:31 103.1 135 22 95/61 (72) 97 Room Air 01/14/17 11:30 103.1 135 22 95/61 (72) 96 Room Air 01/14/17 10:23 103.2 143 22 112/71 (85) 99 Physical Exam GENERAL: 46-year-old female, critically ill currently resting in bed in no acute distress SKIN: Warm and dry. Well perfused. No rash. Positive jaundice. HEAD: Atraumatic. Normocephalic. EYES: Pupils equal and round about 2 mm bilaterally and reactive. Positive scleral icterus. No injection or drainage. ENT: No nasal bleeding or discharge. Mucous membranes pink and moist. NECK: Trachea midline. No JVD. CARDIOVASCULAR: Tachycardic, RR. S1, S2 no S4. RESPIRATORY: Clear to auscultation. Breath sounds equal bilaterally. GASTROINTESTINAL: Abdomen soft, tender to palpation epigastric region with radiation effect. Voluntary guarding. No rigidity.. MUSCULOSKELETAL: Extremities without significant peripheral edema. No obvious deformities. NEUROLOGICAL: Awake and alert. No obvious cranial nerve deficits. Motor grossly within normal limits. Five out of 5 muscle strength in the arms and legs. Normal speech. PSYCHIATRIC: Appropriate mood and affect; insight and judgment normal. Laboratory Laboratory Tests Test 01/14/17 11:00 01/14/17 13:00 01/14/17 16:00 White Blood Count 10.7 Red Blood Count 4.62 Hemoglobin 12.5 Hematocrit 40.3 Mean Corpuscular Volume 87.3 Mean Corpuscular Hemoglobin 27.1 Mean Corpuscular Hemoglobin Concent 31.1 Red Cell Distribution Width 17.9 Platelet Count 189 Mean Platelet Volume 11.7 CBC Comment AUTO DIFF Differential Total Cells Counted 100 Neutrophils % (Manual) 72 Band Neutrophils % 26 Lymphocytes % 1 Neutrophils # (Manual) 10.6 Metamyelocytes 1 Differential Comment FINAL DIFF MANUAL Toxic Vacuolation PRESENT Platelet Estimate NORMAL Platelet Morphology Comment ENLARGED Target Cells 1+ Blood Urea Nitrogen 29 Creatinine 1.10 Random Glucose 475 Total Protein 5.4 Albumin 1.5 Calcium Level 7.8 Alkaline Phosphatase 1173 Aspartate Amino Transf (AST/SGOT) 155 Alanine Aminotransferase (ALT/SGPT) 174 Total Bilirubin 6.3 Sodium Level 131 Potassium Level 3.9 Chloride Level 99 Carbon Dioxide Level 19.8 Anion Gap 12 Estimat Glomerular Filtration Rate 53 Lactic Acid Level 1.8 Lipase 77 Urine Color DARK-YELLOW Urine Turbidity HAZY Urine pH 5.5 Urine Specific [place] 1.022 Urine Protein 30 Urine Glucose (UA) 1000 Urine Ketones NEG Urine Occult Blood NEG Urine Nitrite NEG Urine Bilirubin MOD Urine Urobilinogen LESS THAN 2.0 Urine Leukocyte Esterase NEG Urine RBC 1 Urine WBC 16 Urine Squamous Epithelial Cells <1 Urine Transitional Epithelial Cells 2 Urine Amorphous Sediment RARE Urine Bacteria OCC Microscopic Urinalysis Comment CATH-CULTURE IND Date/Time Source Procedure Growth Status 01/14/17 11:10 Blood Peripheral Aerobic Blood Culture Pending Received 01/14/17 11:10 Blood Peripheral Anaerobic Blood Culture Pending Received 01/14/17 16:00 Urine Catheterized Urine Urine Culture Pending Received Result Diagram: 01/14/17 1100 01/14/17 1300 Imaging Last Impressions Chest X-Ray 01/14/17 1036 Signed Impressions: Service Date/Time: Saturday, January 14, 2017 11:09 - CONCLUSION: No acute disease. You Morales MD FACR Abdomen/Pelvis CT 01/14/17 1036 Signed Impressions: Service Date/Time: Saturday, January 14, 2017 14:53 - CONCLUSION: Moderate ascites is evident intrahepatic air evident. Inhomogeneous contrast enhancement of the liver. Nonobstructing left renal stone There is no free air. You Morales MD FACR Caprini VTE Risk Assessment Caprini VTE Risk Assessment: No/Low Risk (score <= 1) VTE Pharm Contraindication: Caprini Risk Assessment Model Point Value = 1 Point Value = 2 Point Value = 3 Point Value = 5 Age 41-60 Minor surgery BMI > 25 kg/m2 Swollen legs Varicose veins or History of unexplained or recurrent spontaneous Oral contraceptives or hormone replacement Sepsis (< 1 month) Serious lung disease, including pneumonia (< 1 month) Abnormal pulmonary function Acute myocardial infarction Congestive heart failure (< 1 month) History of inflammatory bowel disease Medical patient at bed rest Age 61-74 Arthroscopic surgery Major open surgery (> 45 min) Laparoscopic surgery (> 45 min) Malignancy Confined to bed (> 72 hours) Immobilizing plaster cast Central venous access Age >= 75 History of VTE Family history of VTE Factor V Leiden Prothrombin [id number] Lupus anticoagulant Anticardiolipin antibodies Elevated serum homocysteine Heparin-induced thrombocytopenia Other congenital or acquired thrombophilia Stroke (< 1 month) Elective arthroplasty Hip, pelvis, or leg fracture Acute spinal cord injury (< 1 month) Prophylaxis Regimen Total Risk Factor Score Risk Level Prophylaxis Regimen 0-1 Low Early ambulation 2 Moderate Order ONE of the following: *Sequential Compression Device (SCD) *Heparin 5000 units SQ BID 3-4 Higher Order ONE of the following medications: *Heparin 5000 units SQ TID *Enoxaparin/Lovenox 40 mg SQ daily (WT < 150 kg, CrCl > 30 mL/min) *Enoxaparin/Lovenox 30 mg SQ daily (WT < 150 kg, CrCl > 10-29 mL/min) *Enoxaparin/Lovenox 30 mg SQ BID (WT < 150 kg, CrCl > 30 mL/min) AND/OR *Sequential Compression Device (SCD) 5 or more Highest Order ONE of the following medications: *Heparin 5000 units SQ TID (Preferred with Epidurals) *Enoxaparin/Lovenox 40 mg SQ daily (WT < 150 kg, CrCl > 30 mL/min) *Enoxaparin/Lovenox 30 mg SQ daily (WT < 150 kg, CrCl > 10-29 mL/min) *Enoxaparin/Lovenox 30 mg SQ BID (WT < 150 kg, CrCl > 30 mL/min) AND *Sequential Compression Device (SCD) Assessment and Plan Assessment and Plan Neuro/Psych: Chronic abdominal pain Hold acetaminophen secondary to elevated transaminases initially Hydromorphone as needed for pain management CV: Severe septic shock Status post 4 L crystalloid. Will give 50 g colloid stat. Norepinephrine to maintain MAP greater than 65 Currently normal saline at 84 cc an hour. Initial lactate 1.8. Recheck at midnight and at 6 AM. Resp: Nasal cannula to maintain saturations greater than or equal to 92% Incentive spirometry while awake Chest x-ray revealed no acute cardio pulmonary findings GI: History of primary sclerosing cholangitis Elevated transaminases Intrahepatic air - chronic? History biliary stenosis Hypoalbuminemia CT abdomen/pelvis revealed hepatic air. Left renal stone. Moderate ascites. Gastric urology consultation. Has had ERCPs in the past which indicated PSC. Her GI doctors Dr. Plummer at [facility]. IF Surgical intervention indicated she will need transfer to tertiary facility. Evaluated by general surgeon this facility in April and July. They recommended transfer. : History of ureterolithiasis Fuentes catheter only if indicated Endo: Diabetes mellitus Hyperglycemia with a normal anion gap Home medication is insulin glargine 30 units at night and insulin lispro sliding scale as needed. Currently on sliding scale insulin with Accu-Cheks before meals/at bedtime 0300 hours. High protocol. Novulog Renal: Monitor creatinine. Accurate I's and O's Monitor urine output Heme: CBC within normal limits. ID: Currently on piperacillin//tazobactam, vancomycin and metronidazole. Blood cultures 2 ordered. Source of infection biliary tract likely Infectious disease consulted. MSK: PT evaluate and treat FEN: Hyponatremia Follow BMP in a.m. Access - Utilize peripheral IV. Central line if indicated Prophylaxis - GI - pantoprazole - DVT - SCDs, enoxaparin Critical Care: The total critical care time was 35 minutes. Time to perform other separately billable procedures was not included in the critical care time. Code Status Full code Discussed Condition With Patient. ED physician. Care plan discussed. All questions answered. Problem Qualifiers (1) Non-Hodgkin lymphoma: Qualified Codes: C85.90 - Non-Hodgkin lymphoma, unspecified, unspecified site (2) Diabetes mellitus: Qualified Codes: E10.8 - Type 1 diabetes mellitus with unspecified complications (3) Ascites: Qualified Codes: R18.8 - Other ascites John Marshall MD Jan 14, 2017 17:26
[2017-01-14] MEDS ORDERED: SENNOSIDES 8.6 MG TAB PO PRN (17:30)
[2017-01-14] MEDS ORDERED: Vancomycin Consult Pharmacy 1 EA OTHER SCH (17:30)
[2017-01-14] MEDS ORDERED: RESP: ALBUTEROL 2.5 MG/3 ML NEB (PRN) INH (17:30)
[2017-01-14] MEDS ORDERED: ONDANSETRON HCL 4 MG/2 ML VIAL IV PRN (17:30)
[2017-01-14] MEDS ORDERED: MISCELLANEOUS NURSING INFORMATION XX SCH (17:30)
[2017-01-14] MEDS ORDERED: LACTULOSE SYRUP 20 GM/30 ML CUP PO PRN (17:30)
[2017-01-14] MEDS ORDERED: BISACODYL 10 MG SUPP RECTAL PRN (17:30)
[2017-01-14] MEDS ORDERED: GLUCAGON 1 MG/ML VIAL OTHER PRN (17:30)
[2017-01-14] MEDS ORDERED: DEXTROSE 50% IN WATER 50 ML VIAL(D50) IV PRN (17:30)
[2017-01-14] MEDS ORDERED: MAGNESIUM HYDROXIDE SUSP 30 ML CUP PO PRN (17:30)
[2017-01-14] MEDS ORDERED: CHLORHEXIDINE GLUCONATE 2 % 1 PACK (2 CLOTHS) TOP PRN (17:30)
[2017-01-14] MEDS: ARTIFICIAL TEARS OPTH SOLN 15 ML BTL EACH EYE SCH (18:00)
[2017-01-14] MEDS ORDERED: ALBUMIN HUMAN 25% 25 GM/100 ML BAGP IV ONE (19:30)
[2017-01-14] MEDS ORDERED: VANCOMYCIN 1,000 MG/NS 250 ML IV ONE ×2 (20:00)
[2017-01-14] MEDS: metroNIDAZOLE 500 MG INJ 100 ML IV SCH (20:00)
[2017-01-14] MEDS: INSULIN NovoLIN REGULAR SUPPLEMENTAL SCALE SQ SCH (20:07)
[2017-01-14] MEDS: SODIUM CHLOR 0.9% 1000 ML INJ 1,000 ML IV SCH (20:07)
[2017-01-14] MEDS: NOREPINEPHRINE INJ 4 MG in SODIUM CHLOR 0.9% 250 ML INJ 246 ML IV PRN (20:08)
[2017-01-14] MEDS: PIPERACIL-TAZO 4.5 GM PREMIX 100 ML IV SCH (20:53)
[2017-01-14] MEDS: HYDROmorphone HCL PF 1 MG/ML VIAL IV PRN (20:53)
[2017-01-14] MEDS: HEPARIN SODIUM - SQ 10,000 UNITS/ML VIAL SQ SCH (20:54)
[2017-01-14] MEDS: DOCUSATE SODIUM 50 MG/SENNA 8.6 MG TAB PO SCH (20:55)
[2017-01-14] MEDS: SODIUM CHLORIDE 0.9% FLUSH 10 ML FLUSH IV FLUSH SCH (20:55)
--- NOTE | 2017-01-14 21:50 | PD.PROCEDR ---
Procedure Note Procedure Centerline placement A time-out was completed verifying correct patient, procedure, site, positioning , and special equipment if applicable. The patient was placed in a dependent position appropriate for central line placement based on the vein to be cannulated. The patients left neck was prepped and draped in sterile fashion. 1 % Lidocaine was used to anesthetize the surrounding skin area. A triple lumen 9 Polish Cordis catheter was introduced into the the internal jugular vein using the Seldinger technique and under ultrasound guidance. The catheter was threaded smoothly over the guide wire and appropriate blood return was obtained. Each lumen of the catheter was evacuated of air and flushed with sterile saline. The catheter was then sutured in place to the skin and a sterile dressing applied. Perfusion to the extremity distal to the point of catheter insertion was checked and found to be adequate. Estimated Blood Loss: 1ml The patient tolerated the procedure well and there were no complications. Manolo Belle MD Jan 14, 2017 21:50
--- NOTE | 2017-01-14 23:19 | RADRPT ---
EXAM DATE/TIME: 01/14/2017 22:01 [place] COMPARISON: CHEST SINGLE AP, January 14, 2017, 11:09. INDICATIONS : Central line placement. MEDICAL HISTORY : Diabetes, Non-Hodgkins Lymphoma, cirrhosis. SURGICAL HISTORY : Splenectomy. ENCOUNTER: Subsequent ACUITY: 1 week PAIN SCORE: 0/10 LOCATION: Bilateral chest FINDINGS: There is a left internal jugular central line in place with the tip overlying the right atrium. No pn eumothorax is seen. The heart size is normal. There is increased density at the left base. The right lung is grossly clear. CONCLUSION: 1. Left base atelectasis or consolidation. This is new. 2. New left internal jugular central line in place without evidence of a pneumothorax. Mele Cuba MD on January 14, 2017 at 23:16 Board Certified Radiologist. This report was verified electronically.
[2017-01-14 23:56] LABS: LACTIC ACID GHOST NOT REPORTABLE
[2017-01-15] VITALS (30 sets, daily range): BP systolic 83–103; BP diastolic 51–65; PULSE 89–125; RESP 11–30; TEMP 98.5–99.2; O2SAT 89–99
[2017-01-15] MEDS: HYDROmorphone HCL PF 1 MG/ML VIAL IV PRN ×6 (01:15→22:16)
[2017-01-15] MEDS: metroNIDAZOLE 500 MG INJ 100 ML IV SCH ×3 (03:28→22:04)
[2017-01-15] MEDS: PIPERACIL-TAZO 4.5 GM PREMIX 100 ML IV SCH ×4 (03:28→22:04)
[2017-01-15] MEDS: CHLORHEXIDINE GLUCONATE 2 % 1 PACK (2 CLOTHS) TOP SCH (03:33)
[2017-01-15] MEDS: NOREPINEPHRINE INJ 4 MG in SODIUM CHLOR 0.9% 250 ML INJ 246 ML IV PRN ×2 (05:15→22:08)
[2017-01-15] MEDS: INSULIN NovoLIN REGULAR SUPPLEMENTAL SCALE SQ SCH ×4 (06:00→17:30)
[2017-01-15 06:11] LABS: HEMATOCRIT 31.4 % (35.0-46.0); MEAN CELL VOLUME 85.7 FL (80.0-100.0); MEAN CORPUSCULAR HEMOGLOBIN 27.9 PG (27.0-34.0); MEAN CORPUSCULAR HGB CONC 32.5 % (32.0-36.0); PLATELET COUNT 86 TH/MM3 (150-450); RED BLOOD COUNT 3.66 MIL/MM3 (4.00-5.30); RED CELL DISTRIBUTION WIDTH 17.2 % (11.6-17.2); WHITE BLOOD COUNT 17.2 TH/MM3 (4.0-11.0)
[2017-01-15 06:18] LABS: HEMO FLAGS AUTO DIFF
[2017-01-15 06:21] LABS: APTT (PATIENT) 32.2 SEC (24.3-30.1); INTERNATIONAL NORMALIZED RATIO 1.1 RATIO; PROTHROMBIN TIME - PATIENT 12.2 SEC (9.8-11.6)
[2017-01-15 06:44] LABS: ALKALINE PHOSPHATASE 784 U/L (45-117); ALT (GPT) 146 U/L (10-53); ANION GAP 12 MEQ/L (5-15); AST (GOT) 166 U/L (15-37); BICARBONATE 19.6 MEQ/L (21.0-32.0); BLOOD UREA NITROGEN 19 MG/DL (7-18); CHLORIDE 105 MEQ/L (98-107); GLOMERULAR FILTRATION RATE 124 ML/MIN (>89); MAGNESIUM 1.9 MG/DL (1.5-2.5); POTASSIUM 3.5 MEQ/L (3.5-5.1); SODIUM (NA) 137 MEQ/L (136-145); TOTAL BILIRUBIN ADULT 6.5 MG/DL (0.2-1.0)
[2017-01-15 08:09] LABS: BANDS 32 % (0-6); NEUTROPHIL # MANUAL DIFF 16.3 TH/MM3 (1.8-7.7); PLATELET ESTIMATE SMEAR LOW (NORMAL); POLYS (SEG NEUTROPHILS) 63 % (16-70); WBC DIFF SAMPLE 100
[2017-01-15 08:10] LABS: PLATELET MORPHOLOGY NORMAL (NORMAL); SCAN/DIFF FINAL DIFF MANUAL; TOXIC VACUOLATION PRESENT (NONE SEEN)
[2017-01-15 08:11] LABS: HOWELL-JOLLY BODIES PRESENT (NONE SEEN); TARGET CELLS 1+ (NORMAL)
[2017-01-15] MEDS: PANTOPRAZOLE SODIUM 40 MG VIAL IV SCH (08:49)
[2017-01-15] MEDS: DOCUSATE SODIUM 50 MG/SENNA 8.6 MG TAB PO SCH ×2 (08:49→21:00)
[2017-01-15] MEDS: ARTIFICIAL TEARS OPTH SOLN 15 ML BTL EACH EYE SCH ×3 (09:00→17:31)
[2017-01-15] MEDS: SODIUM CHLORIDE 0.9% FLUSH 10 ML FLUSH IV FLUSH SCH ×2 (09:00→22:05)
[2017-01-15] MEDS: HEPARIN SODIUM - SQ 10,000 UNITS/ML VIAL SQ SCH ×2 (09:18→22:04)
[2017-01-15] MEDS: VANCOMYCIN 1,000 MG/NS 250 ML IV SCH ×4 (11:17→22:08)
--- NOTE | 2017-01-15 11:58 | HHI.CCPN ---
Subjective Remarks/Hospital Course This is a 46-year-old female. Date of admission 01/06/2017. Past medical history includes PSC - follows Dr. Elian Moncada [facility], biliary stenosis/strictures, non-Hodgkin's lymphomas completed chemotherapy 2005, IVs mellitus, chronic abdominal pain, urolithiasis and history of MRSA. Back in July, patient had a liver biopsy revealed severe chronic hepatitis, bridging cirrhosis and grade 2/4,'s stage 3/4 biliary stasis, fatty liver. No signs of PBC or PSC. Patient presented as an years piece indicative of PSC. Transitions with elevated during hospitalization patient was on vasopressors for short period time. Patient be hospitalized in August at [facility]. Patient still has her gallbladder. Patient presented to [place] with a 2-3 day history generalized abdominal pain associated with nausea. Resume upon presentation patient was normotensive however became hypotensive. CT abdomen/pelvis revealed moderate ascites. Intrahepatic gas, similar to 06/05, nonobstructing left renal stone. Patient received 4 L normal saline and peripheral norepinephrine to maintain map. Patient is mentating appropriately present time. Received piperacillin/tazobactam P blood cultures sent 7 drawn. Lactate 1.8. Subjective 01/15: Blood cultures positive for gram-negative rods. Continues to have abdominal pain requiring hydromorphone. Tolerating clear ice chips. Requesting discontinuation of vancomycin. Objective Vital Signs Date Time Temp Pulse Resp B/P (MAP) Pulse Ox O2 Delivery O2 Flow Rate FiO2 01/15/17 06:00 102 01/15/17 04:00 98.5 17 103/57 (72) 95 01/14/17 20:33 21 01/14/17 20:00 Room Air Intake and Output 01/15/17 01/15/17 01/16/17 08:00 16:00 00:00 Intake Total 1501 ml 100 ml Balance 1501 ml 100 ml Result Diagram: 01/15/17 0600 01/15/17 0600 Other Results Microbiology Date/Time Source Procedure Growth Status 01/14/17 11:10 Blood Peripheral Aerobic Blood Culture - Preliminary Gram Negative Kurtis Resulted 01/14/17 11:10 Anaerobic Blood Culture - Preliminary Gram Negative Kurtis Resulted 01/14/17 16:00 Urine Catheterized Urine Urine Culture Pending Received Imaging Last Impressions Chest X-Ray 01/14/17 1036 Signed Impressions: Service Date/Time: Saturday, January 14, 2017 11:09 - CONCLUSION: No acute disease. You Morales MD FACR Abdomen/Pelvis CT 01/14/17 1036 Signed Impressions: Service Date/Time: Saturday, January 14, 2017 14:53 - CONCLUSION: Moderate ascites is evident intrahepatic air evident. Inhomogeneous contrast enhancement of the liver. Nonobstructing left renal stone There is no free air. You Morales MD FACR Objective Remarks GENERAL: 46-year-old female, critically ill currently resting in bed in no acute distress SKIN: Warm and dry. Well perfused. No rash. Positive jaundice. HEAD: Atraumatic. Normocephalic. EYES: Pupils equal and round about 2 mm bilaterally and reactive. Positive scleral icterus. No injection or drainage. ENT: No nasal bleeding or discharge. Mucous membranes pink and moist. NECK: Trachea midline. No JVD. CARDIOVASCULAR: Tachycardic, RR. S1, S2 no S4. RESPIRATORY: Clear to auscultation. Breath sounds equal bilaterally. GASTROINTESTINAL: Abdomen soft, tender to palpation epigastric region with radiation effect. Voluntary guarding. No rigidity.. MUSCULOSKELETAL: Extremities without significant peripheral edema. No obvious deformities. NEUROLOGICAL: Awake and alert. No obvious cranial nerve deficits. Motor grossly within normal limits. Five out of 5 muscle strength in the arms and legs. Normal speech. PSYCHIATRIC: Appropriate mood and affect; insight and judgment normal. Vascular Central Line Catheter: Yes Assessment to: Continue Line: Central Venous Catheter Side: Left Location: Internal, Jugular A/P Assessment and Plan Neuro/Psych: Chronic abdominal pain Hold acetaminophen secondary to elevated transaminases initially Hydromorphone as needed for pain management CV: Severe septic shock Status post 4 L crystalloid and 50 g colloid stat. Norepinephrine currently at 4 mics grams per minute to maintain MAP greater than 65 Currently normal saline at 84 cc an hour. Initial lactate 1.8. Recheck at midnight was elevated currently down to 0.3 Resp: Nasal cannula to maintain saturations greater than or equal to 92% Incentive spirometry while awake Chest x-ray revealed no acute cardio pulmonary findings GI: History of primary sclerosing cholangitis Elevated transaminases Intrahepatic air - chronic? History biliary stenosis Hypoalbuminemia CT abdomen/pelvis revealed hepatic air. Left renal stone. Moderate ascites. Gastric urology consultation. Has had ERCPs in the past which indicated PSC. Her GI doctors Dr. Plummer at [facility]. IF Surgical intervention indicated she will need transfer to tertiary facility. Evaluated by general surgeon this facility in April and July. They recommended transfer at that time. : History of ureterolithiasis Fuentes catheter only if indicated Endo: Diabetes mellitus Hyperglycemia with a normal anion gap Home medication is insulin glargine 30 units at night and insulin lispro sliding scale as needed. Currently on sliding scale insulin with Accu-Cheks before meals/at bedtime 0300 hours. High protocol. Novulog Renal: Monitor creatinine. Accurate I's and O's Monitor urine output Heme: Leukocytosis Anemia Thrombocytopenia Likely secondary to underlying inflammatory type process. Recheck in AM. Monitor trends. ID: Gram-negative kurtis bacteremia Currently on piperacillin//tazobactam, vancomycin and metronidazole. Blood cultures 2 01/14 gram-negative rods Source of infection biliary tract likely Infectious disease consulted. MSK: PT evaluate and treat FEN: Hyponatremia Hypophosphatemia Follow BMP in a.m. 30 mmol sodium phosphate IV 1 now. Recheck in a.m. Access - Utilize peripheral IV. Central line if indicated Prophylaxis - GI - pantoprazole - DVT - SCDs, heparin Critical Care: The total critical care time was 35 minutes. Time to perform other separately billable procedures was not included in the critical care time. John Marshall MD Jan 15, 2017 11:58
--- NOTE | 2017-01-15 13:17 | PD.CONS ---
HPI History of Present Illness This is a 46 year old female who came to the emergency room for evaluation of abdominal pain and high fevers. She has a history of non-Hodgkin's lymphoma and completed chemotherapy in 2005, but has had an ongoing problem with biliary strictures and sclerosing cholangitis. At one point, she was requiring frequent ERCP with stent exchanges for this, but more recently, she has not been able to have an internal stent placed and has required biliary drains periodically. Her last liver biopsy was on (07/27/16) and revealed severe chronic hepatitis with bridging fibrosis and cirrhosis (grade 2/4; stage 3-4/4) with associated bile stasis, fatty change and histopathologic features most suggestive of drug induced liver disease (including alcohol)- no evidence of primary biliary cirrhosis or primary sclerosing cholangitis in this biopsy. Cytoplasmic inclusions suggestive of Alpha 1 Antitrypsin are present as may be observed in cirrhotic livers however it is suggested that serologic studies be performed. The pathological features present in this biopsy material are different from that observed in the liver biopsy of 01/19/14. She was seen at [facility] for liver transplant evaluation and states that she underwent ERCP in May of 2015 with them. More recently she has been seen by [facility] and was last hospitalized in August of this year for cholangitis/sepsis. She did not require any procedures at that time. The patient reports that they are starting the workup for possible liver transplant at [facility]. She reports that she has been doing pretty well at home and has been able to eat without abdominal pain and has gained some weight. However, about 3 days ago, she had the sudden onset of severe pressure/dull ache pain in her epigastric area that radiates around her right side and to her back. She has some associated nausea without vomiting and has been having about 2 loose stools per day. She denies any mucous or blood in her stools. She also reports that she has been having fever and chills with a T. Max at home of 104.0. (Aliyah Mosher) [facility] Past Medical History Biliary obstruction secondary to strictures Gastroparesis Sclerosing cholangitis Non-Hodgkin's lymphoma Diabetes Ureterolithiasis MRSA and wound Liver Mass. Past Surgical History Multiple ERCP with stent placement Splenectomy Biliary drain Liver biopsy Shockwave lithotripsy Biliary drain placement (Aliyah Mosher) Coded Allergies: MRI PRECAUTION (Verified Allergy, Severe, NAUSEA; PER PATIENT IT IS A GADOLINIUM ALLERGY D 11/25/12, 09/04/16) gadobenic acid (Unverified Allergy, Severe, BREATHING PROBLEMS, N/V,CHILLS , 01/01/17) gadodiamide (Unverified Allergy, Severe, BREATHING PROBLEMS, N/V,CHILLS, ) gadoteridol (Unverified Allergy, Severe, BREATHING PROBLEMS, N/V,CHILLS, ) ketorolac (Unverified Allergy, Severe, Shortness of Breath, 01/01/17) morphine (Unverified Allergy, Severe, BREATHING PROBLEMS, 01/01/17) Medications Allergies Coded Allergies Type Severity Reaction Last Updated Verified MRI PRECAUTION Allergy Severe NAUSEA; PER PATIENT IT IS A GADOLINIUM ALLERGY D 11/25/12 09/04/16 Yes gadobenic acid Allergy Severe BREATHING PROBLEMS, N/V,CHILLS 01/01/17 No gadodiamide Allergy Severe BREATHING PROBLEMS, N/V,CHILLS 01/01/17 No gadoteridol Allergy Severe BREATHING PROBLEMS, N/V,CHILLS 01/01/17 No ketorolac Allergy Severe Shortness of Breath 01/01/17 No morphine Allergy Severe BREATHING PROBLEMS 01/01/17 No Active Scripts Medications Dose Route/Sig Max Daily Dose Days Date Category Dose Instructions Lantus Inj (Insulin Glargine) 1,000 Unit/10 Ml Vial 30 Units SQ HS 09/11/16 Reported Humalog Inj (Insulin Human Lispro) 1,000 Unit/10 Ml Vial 1 Units SQ ACHS 08/15/16 Rx Max dose at bedtime:( )units; sugars< 70,(0)units; sugars 150-199,(1)unit; sugars 200-249,(3)units; sugars 250-299,(5)units; sugars 300-349,(7)units; sugars more than 349,(9)units. Family History States father had mild stomach issues, but she is not sure what these were. Social History No use of tobacco, illicit drug use, alcohol (Aliyah MosherP) Review of Systems Constitutional: COMPLAINS OF: Fatigue, Fever, Chills, DENIES: Weight loss Respiratory: DENIES: Cough, Shortness of breath Cardiovascular: DENIES: Chest pain Gastrointestinal: COMPLAINS OF: Abdominal pain, Diarrhea, Nausea, DENIES: Black stools, Bloody stools, Constipation, Vomiting, Heartburn Musculoskeletal: COMPLAINS OF: Back pain Integumentary: DENIES: Abnormal pigmentation Hematologic/lymphatic: DENIES: Bruising Neurologic: COMPLAINS OF: Headache Psychiatric: DENIES: Confusion (Aliyah Mosher) GI Exam Vitals I&O Vital Signs Date Time Temp Pulse Resp B/P (MAP) Pulse Ox O2 Delivery O2 Flow Rate FiO2 01/15/17 12:00 98.9 01/15/17 08:00 99.0 01/15/17 06:00 102 01/15/17 04:00 98.5 118 17 103/57 (72) 95 01/15/17 04:00 108 01/15/17 02:00 103 01/15/17 00:00 99.2 103 27 83/56 (65) 93 01/15/17 00:00 107 01/14/17 20:33 97 21 01/14/17 20:15 99.0 107 15 80/60 (67) 95 01/14/17 20:13 01/14/17 20:00 98 01/14/17 20:00 108 18 88/62 (71) 98 Room Air 01/14/17 19:00 108 18 86/58 (67) 97 Room Air 01/14/17 17:00 100 15 69/51 (57) 100 Room Air 01/14/17 15:15 62/46 (51) Automatic Cuff 01/14/17 14:57 100 70/47 (55) 01/14/17 14:46 94 63/43 01/14/17 14:45 102 61/41 (48) 01/14/17 13:48 99.0 01/14/17 13:48 94 Room Air 01/14/17 13:42 110 20 66/46 (53) 94 Room Air 01/14/17 13:31 118 20 67/46 (53) 93 Room Air 01/14/17 13:30 94 16 63/40 (48) 97 I/O 01/14/17 01/14/17 01/14/17 01/15/17 01/15/17 01/15/17 06:59 14:59 22:59 06:59 14:59 22:59 Intake Total 3900 ml 1501 ml 350 ml Balance 3900 ml 1501 ml 350 ml Intake IV Total 3900 ml 1501 ml 350 ml # Voids 2 # Bowel Movements 1 Imaging Last Impressions Chest X-Ray 01/14/17 1036 Signed Impressions: Service Date/Time: Saturday, January 14, 2017 11:09 - CONCLUSION: No acute disease. You Morales MD FACR Abdomen/Pelvis CT 01/14/17 1036 Signed Impressions: Service Date/Time: Saturday, January 14, 2017 14:53 - CONCLUSION: Moderate ascites is evident intrahepatic air evident. Inhomogeneous contrast enhancement of the liver. Nonobstructing left renal stone There is no free air. You Morales MD FACR Laboratory Test 01/14/17 16:00 01/14/17 21:46 01/15/17 06:00 Urine Color DARK-YELLOW Urine Turbidity HAZY Urine pH 5.5 Urine Specific [place] 1.022 Urine Protein 30 mg/dL Urine Glucose (UA) 1000 mg/dL Urine Ketones NEG mg/dL Urine Occult Blood NEG Urine Nitrite NEG Urine Bilirubin MOD Urine Urobilinogen LESS THAN 2.0 MG/DL Urine Leukocyte Esterase NEG Urine RBC 1 /hpf Urine WBC 16 /hpf Urine Squamous Epithelial Cells <1 /hpf Urine Transitional Epithelial Cells 2 /hpf Urine Amorphous Sediment RARE Urine Bacteria OCC /hpf Microscopic Urinalysis Comment CATH-CULTURE IND Lactic Acid Level 2.5 mmol/L 0.3 mmol/L White Blood Count 17.2 TH/MM3 Red Blood Count 3.66 MIL/MM3 Hemoglobin 10.2 GM/DL Hematocrit 31.4 % Mean Corpuscular Volume 85.7 FL Mean Corpuscular Hemoglobin 27.9 PG Mean Corpuscular Hemoglobin Concent 32.5 % Red Cell Distribution Width 17.2 % Platelet Count 86 TH/MM3 Mean Platelet Volume 11.8 FL CBC Comment AUTO DIFF Differential Total Cells Counted 100 Neutrophils % (Manual) 63 % Band Neutrophils % 32 % Lymphocytes % 5 % Neutrophils # (Manual) 16.3 TH/MM3 Differential Comment FINAL DIFF MANUAL Toxic Vacuolation PRESENT Platelet Estimate LOW Platelet Morphology Comment NORMAL Target Cells 1+ Kelly-Secor Bodies PRESENT Prothrombin Time 12.2 SEC Prothromb Time International Ratio 1.1 RATIO Activated Partial Thromboplast Time 32.2 SEC Blood Urea Nitrogen 19 MG/DL Creatinine 0.53 MG/DL Random Glucose 248 MG/DL Total Protein 5.4 GM/DL Albumin 2.1 GM/DL Calcium Level 7.6 MG/DL Phosphorus Level 1.5 MG/DL Magnesium Level 1.9 MG/DL Alkaline Phosphatase 784 U/L Aspartate Amino Transf (AST/SGOT) 166 U/L Alanine Aminotransferase (ALT/SGPT) 146 U/L Total Bilirubin 6.5 MG/DL Sodium Level 137 MEQ/L Potassium Level 3.5 MEQ/L Chloride Level 105 MEQ/L Carbon Dioxide Level 19.6 MEQ/L Anion Gap 12 MEQ/L Estimat Glomerular Filtration Rate 124 ML/MIN Date/Time Source Procedure Growth Status 01/14/17 11:10 Blood Peripheral Aerobic Blood Culture - Preliminary Gram Negative Kurtis Resulted 01/14/17 11:10 Anaerobic Blood Culture - Preliminary Gram Negative Kurtis Resulted 01/14/17 16:00 Urine Catheterized Urine Urine Culture - Preliminary NO GROWTH IN 24 HOURS. Resulted Physical Examination HEENT: Normocephalic; atraumatic; + jaundice. CHEST: CTA CARDIAC: RRR ABDOMEN: Soft, nondistended, moderate epigastric/ruq tenderness; hepatosplenomegaly; bowel sounds are present in all four quadrants. EXTREMITIES: No clubbing, cyanosis, or edema. SKIN: Normal; no rash; + jaundice. 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 (Aliyah Mosher) Assessment and Plan Plan ASSESSMENT: - Abdominal pain/nausea/diarrhea fevers with hx of recurrent cholangitis, biliary strictures. Pt has recurrent abdominal pain/cholangitis. States she has been good recently, but started having epigastric/ruq pain 3 days ago with associated fever of 104.0. CT Scan abdomen and pelvis with IV contrast (01/14/17)----> Moderate ascites is evident intrahepatic air evident, inhomogeneous contrast enhancement of the liver, nonobstructing left renal stone, there is no free air. LFTs elevated 6.5, AST 166, ALT 146, Alk Phosph 784. (In august, LFTs were 1.9, 130, 149, 1496.). Suspect cholangitis. Vanco, Zosyn. Flagyl - Sepsis, Bandemia, Bacteremia, Leukocytosis. Suspect Cholangitis. WBC 17.2. BCx with GNR, Citrobacter species, GNR. Vanco, Zosyn. Flagyl - Liver cirrhosis. 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 Cytoplasmic inclusions suggestive of Alpha 1 Antitrypsin are present as may be observed in cirrhotic livers however it is suggested that serologic studies be performed. The pathological features present in this biopsy material are different from that observed in the liver biopsy of 01/19/14. She is followed by Dr. Plummer at [facility]- she states that they are starting workup for liver transplant evaluation. She was last seen in August of this year. - Anemia. No acute blood loss. .4. - Gastroparesis. Dx a few months ago - DM per attending. 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 At one point, she was requiring frequent ERCP with stent exchanges for this, but more recently, she has not been able to have an internal stent placed and has required biliary drains periodically. She was evaluated at [facility] for liver transplant evaluation and states that she underwent ERCP in May of 2015 with them. More recently she has been seen by [facility] (Dr. Plummer) and was last hospitalized in August of this year for cholangitis/sepsis. She did not require any procedures at that time. The patient reports that they are starting the workup for possible liver transplant at [facility]. PLAN: - NPO - MRCP without contrast secondary to allergy - Await final cultures - Cont. Abx- Vanco, Zosyn, Flagyl - CBC, CMP in am - Supportive care - Further recommendations to follow based on results of above - ? need for PTC - If worsening condition, consider tx to [facility] - PT seen and examined by Dr. Crawford and myself and this note is written on his behalf (Aliyah Mosher) Physician Comments Agree with the plan as above, will check MRCP and will consider transfer to [facility] if listed there for transplant. Further recommendations to follow. (Ty,MohammaAliyah Perales Jan 15, 2017 13:17 Junior Crawford MD Jan 15, 2017 14:44
--- NOTE | 2017-01-15 15:06 | EKG ---
Date Performed: 01/14/2017 Time Performed: 11:10:55 PTAGE: 46 years EKG: SINUS TACHYCARDIA MARKED LEFT AXIS DEVIATION PATTERN CONSISTENT WITH PULMONARY DISEASE SEPT AL MYOCARDIAL INFARCTION ABNORMAL ECG PREVIOUS TRACING : 08/19/2016 15.50 Since the prior tracing, the marked sinus tachycardia is a new finding. Clinical correlation advised. DOCTOR: Alejandra Joshua Interpretating Date/Time 01/15/2017 15:05:23
[2017-01-15] MEDS: SODIUM CHLOR 0.9% 1000 ML INJ 1,000 ML IV SCH (16:30)
[2017-01-15] MEDS ORDERED: VANCOMYCIN INJ 850 MG in SODIUM CHLOR 0.9% 250 ML INJ 250 ML IV SCH (23:00)
[2017-01-16] VITALS (14 sets, daily range): BP systolic 101–122; BP diastolic 64–81; PULSE 75–137; RESP 13–18; TEMP 97.7–98.5; O2SAT 92–98
[2017-01-16] MEDS: HYDROmorphone HCL PF 1 MG/ML VIAL IV PRN ×5 (02:35→21:39)
[2017-01-16] MEDS: metroNIDAZOLE 500 MG INJ 100 ML IV SCH ×3 (02:35→21:36)
[2017-01-16] MEDS: CHLORHEXIDINE GLUCONATE 2 % 1 PACK (2 CLOTHS) TOP SCH (04:00)
[2017-01-16] MEDS: PIPERACIL-TAZO 4.5 GM PREMIX 100 ML IV SCH ×3 (05:41→21:37)
[2017-01-16] MEDS: SODIUM CHLOR 0.9% 1000 ML INJ 1,000 ML IV SCH ×2 (05:45→10:00)
[2017-01-16] MEDS: INSULIN NovoLIN REGULAR SUPPLEMENTAL SCALE SQ SCH ×4 (06:00→18:00)
[2017-01-16 06:13] LABS: HEMATOCRIT 34.6 % (35.0-46.0); MEAN CELL VOLUME 85.9 FL (80.0-100.0); MEAN CORPUSCULAR HEMOGLOBIN 27.8 PG (27.0-34.0); MEAN CORPUSCULAR HGB CONC 32.4 % (32.0-36.0); PLATELET COUNT 90 TH/MM3 (150-450); RED BLOOD COUNT 4.02 MIL/MM3 (4.00-5.30); RED CELL DISTRIBUTION WIDTH 17.6 % (11.6-17.2); WHITE BLOOD COUNT 14.5 TH/MM3 (4.0-11.0)
[2017-01-16 06:18] LABS: HEMO FLAGS AUTO DIFF
[2017-01-16 06:26] LABS: ANION GAP 12 MEQ/L (5-15); AST (GOT) 219 U/L (15-37); BICARBONATE 20.3 MEQ/L (21.0-32.0); BLOOD UREA NITROGEN 13 MG/DL (7-18); CHLORIDE 106 MEQ/L (98-107); GLOMERULAR FILTRATION RATE 215 ML/MIN (>89); POTASSIUM 3.2 MEQ/L (3.5-5.1); SODIUM (NA) 138 MEQ/L (136-145)
[2017-01-16 06:28] LABS: ALT (GPT) 172 U/L (10-53)
[2017-01-16 06:30] LABS: ALKALINE PHOSPHATASE 902 U/L (45-117); INDIRECT BILIRUBIN 1.1 MG/DL (0.0-0.8); MAGNESIUM 1.6 MG/DL (1.5-2.5); TOTAL BILIRUBIN ADULT 6.4 MG/DL (0.2-1.0)
[2017-01-16 08:05] LABS: BANDS 6 % (0-6); CORRECTED NUCLEATED RBC 2 /100 WBC (0-0); METAMYELOCYTES 6 % (0-1); NEUTROPHIL # MANUAL DIFF 13.6 TH/MM3 (1.8-7.7); POLYS (SEG NEUTROPHILS) 82 % (16-70); WBC DIFF SAMPLE 100
[2017-01-16 08:06] LABS: HOWELL-JOLLY BODIES PRESENT (NONE SEEN); PLATELET ESTIMATE SMEAR LOW (NORMAL); PLATELET MORPHOLOGY ENLARGED (NORMAL); TARGET CELLS 1+ (NORMAL)
[2017-01-16 08:07] LABS: SCAN/DIFF FINAL DIFF MANUAL; TOXIC VACUOLATION PRESENT (NONE SEEN)
[2017-01-16] MEDS: ARTIFICIAL TEARS OPTH SOLN 15 ML BTL EACH EYE SCH ×3 (09:00→17:00)
[2017-01-16] MEDS: DOCUSATE SODIUM 50 MG/SENNA 8.6 MG TAB PO SCH ×2 (09:00→21:00)
[2017-01-16] MEDS: SODIUM CHLORIDE 0.9% FLUSH 10 ML FLUSH IV FLUSH SCH ×2 (09:00→21:00)
[2017-01-16] MEDS: PANTOPRAZOLE SODIUM 40 MG VIAL IV SCH (09:59)
[2017-01-16] MEDS: HEPARIN SODIUM - SQ 10,000 UNITS/ML VIAL SQ SCH ×2 (10:00→21:36)
[2017-01-16] MEDS ORDERED: PHARMACY ORDERED LAB ONE ×2 (10:45→22:45)
[2017-01-16] MEDS: VANCOMYCIN 1,000 MG/NS 250 ML IV SCH ×4 (13:12→23:00)
--- NOTE | 2017-01-16 13:51 | HHI.GIFU ---
Subjective Remarks Resting in bed. States pain is better controlled, but still having abdominal discomfort. Refused MRCP earlier today secondary to claustrophobia, but is now agreeable to have it done tomorrow. Requesting diet. (Aliyah Mosher) Objective Vitals I&O Vital Signs Date Time Temp Pulse Resp B/P (MAP) Pulse Ox O2 Delivery O2 Flow Rate FiO2 01/16/17 12:00 75 01/16/17 10:00 79 01/16/17 08:54 97 01/16/17 08:00 125 01/16/17 08:00 97.7 95 16 118/78 (91) 95 01/16/17 06:00 79 01/16/17 04:00 98.5 91 14 103/67 (79) 92 01/16/17 04:00 103 01/16/17 02:00 106 01/16/17 00:00 98.2 108 13 101/64 (76) 95 01/16/17 00:00 114 01/15/17 22:00 116 01/15/17 21:18 99 21 01/15/17 20:00 114 01/15/17 20:00 98.7 101 19 93/62 (72) 92 01/15/17 18:30 113 19 95/65 (75) 97 01/15/17 18:15 105 24 93/59 (70) 94 01/15/17 18:00 105 01/15/17 18:00 105 17 96/65 (75) 92 01/15/17 17:45 116 17 94/63 (73) 93 01/15/17 17:30 123 26 99/61 (74) 94 01/15/17 17:15 120 30 92/53 (66) 89 01/15/17 17:00 123 27 94/56 (69) 94 01/15/17 16:45 125 11 90/55 (67) 94 01/15/17 16:30 119 17 95/60 (72) 92 01/15/17 16:15 113 14 91/57 (68) 92 01/15/17 16:00 121 19 87/51 (63) 93 01/15/17 14:54 96 21 01/15/17 14:18 121 01/15/17 14:15 105 01/15/17 14:00 105 01/15/17 13:45 110 I/O 01/15/17 01/15/17 01/15/17 01/16/17 01/16/17 01/16/17 07:00 15:00 23:00 07:00 15:00 23:00 Intake Total 1501 ml 450 ml 761 ml 1989 ml 400 ml Output Total 500 ml Balance 1501 ml -50 ml 761 ml 1989 ml 400 ml Intake Oral 120 ml IV Total 1501 ml 450 ml 641 ml 1989 ml 400 ml Output Urine Total 500 ml # Voids 2 1 # Bowel Movements 1 Laboratory Laboratory Tests Test 01/15/17 19:53 01/16/17 05:45 Tumor Marker Alpha Fetoprotein 6.1 White Blood Count 14.5 Red Blood Count 4.02 Hemoglobin 11.2 Hematocrit 34.6 Mean Corpuscular Volume 85.9 Mean Corpuscular Hemoglobin 27.8 Mean Corpuscular Hemoglobin Concent 32.4 Red Cell Distribution Width 17.6 Platelet Count 90 Mean Platelet Volume 12.8 CBC Comment AUTO DIFF Differential Total Cells Counted 100 Neutrophils % (Manual) 82 Band Neutrophils % 6 Lymphocytes % 4 Monocytes % 2 Neutrophils # (Manual) 13.6 Metamyelocytes 6 Nucleated Red Blood Cells 2 Differential Comment FINAL DIFF MANUAL Toxic Vacuolation PRESENT Platelet Estimate LOW Platelet Morphology Comment ENLARGED Target Cells 1+ Kelly-Merino Bodies PRESENT Blood Urea Nitrogen 13 Creatinine 0.33 Random Glucose 224 Total Protein 5.4 Albumin 1.9 Calcium Level 8.1 Phosphorus Level 0.8 Magnesium Level 1.6 Alkaline Phosphatase 902 Aspartate Amino Transf (AST/SGOT) 219 Alanine Aminotransferase (ALT/SGPT) 172 Total Bilirubin 6.4 Direct Bilirubin 5.3 Sodium Level 138 Potassium Level 3.2 Chloride Level 106 Carbon Dioxide Level 20.3 Anion Gap 12 Estimat Glomerular Filtration Rate 215 Indirect Bilirubin 1.1 Date/Time Source Procedure Growth Status 01/14/17 11:10 Blood Peripheral Aerobic Blood Culture - Preliminary Gram Negative Kurtis Resulted 01/14/17 11:10 Anaerobic Blood Culture - Preliminary Gram Negative Kurtis Resulted 01/14/17 16:00 Urine Catheterized Urine Urine Culture - Final NO GROWTH IN 48 HOURS. Complete Imaging Last Impressions Chest X-Ray 01/14/17 1036 Signed Impressions: Service Date/Time: Saturday, January 14, 2017 11:09 - CONCLUSION: No acute disease. You Morales MD FACR Abdomen/Pelvis CT 01/14/17 1036 Signed Impressions: Service Date/Time: Saturday, January 14, 2017 14:53 - CONCLUSION: Moderate ascites is evident intrahepatic air evident. Inhomogeneous contrast enhancement of the liver. Nonobstructing left renal stone There is no free air. You Morales MD FACR Physical Exam HEENT: Normocephalic; atraumatic;+ jaundice. CHEST: CTA CARDIAC: RRR. ABDOMEN: Soft,mildly bloated, mild epigastric/ruq tenderness; hepatosplenomegaly; bowel sounds are present in all four quadrants. EXTREMITIES: No clubbing, cyanosis, or edema. SKIN: Normal; no rash;+ jaundice. 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 (Aliyah Mosher) Assessment and Plan Plan ASSESSMENT: - Abdominal pain/nausea/diarrhea fevers with hx of recurrent cholangitis, biliary strictures. Pt has recurrent abdominal pain/cholangitis. States she has been good recently, but started having epigastric/ruq pain 3 days ago with associated fever of 104.0. CT Scan abdomen and pelvis with IV contrast (01/14/17)----> Moderate ascites is evident intrahepatic air evident, inhomogeneous contrast enhancement of the liver, nonobstructing left renal stone, there is no free air. LFTs elevated 6.4, AST 219, ALT 172, Alk Phosph 902. (In august, LFTs were 1.9, 130, 149, 1496.). Suspect cholangitis. Refused MRCP, but is agreeable to have it done tomorrow. Vanco, Zosyn. Flagyl. WBC improved, 14.5. ? need for PTC. - Sepsis, Bandemia, Bacteremia, Leukocytosis. Suspect Cholangitis. WBC 14.5. BCx with GNR, Citrobacter species, GNR. Vanco, Zosyn. Flagyl - Liver cirrhosis. 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 Cytoplasmic inclusions suggestive of Alpha 1 Antitrypsin are present as may be observed in cirrhotic livers however it is suggested that serologic studies be performed. The pathological features present in this biopsy material are different from that observed in the liver biopsy of 01/19/14. She is followed by Dr. Plummer at [facility]- she states that they are starting workup for liver transplant evaluation. She was last seen in August of this year. - Anemia. No acute blood loss. 11.2/34.6. - Gastroparesis. Dx a few months ago - DM per attending. 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 At one point, she was requiring frequent ERCP with stent exchanges for this, but more recently, she has not been able to have an internal stent placed and has required biliary drains periodically. She was evaluated at [facility] for liver transplant evaluation and states that she underwent ERCP in May of 2015 with them. More recently she has been seen by [facility] (Dr. Plummer) and was last hospitalized in August of this year for cholangitis/sepsis. She did not require any procedures at that time. The patient reports that they are starting the workup for possible liver transplant at [facility]. AFP 6.1. PLAN: - Full liquids - NPO after MN for MRCP, in case intervention needed - MRCP without contrast secondary to allergy- refused today, okay for tomorrow - Await final cultures - Cont. Abx- Vanco, Zosyn, Flagyl - CBC, CMP in am - Supportive care - Further recommendations to follow based on results of above - ? need for PTC - If worsening condition, consider tx to [facility] - PT seen and examined by Dr. Crawford and myself and this note is written on his behalf (Aliyah Mosher) Physician Comments Agree with the assessment and plan as above, check MRCP results, continue current treatment plan. (Junior Crawford MD) Aliyah Mosher Jan 16, 2017 13:51 Junior Crawford MD Jan 16, 2017 14:14
--- NOTE | 2017-01-16 14:33 | HHI.CCPN ---
Subjective Remarks/Hospital Course This is a 46-year-old female. Date of admission 01/06/2017. Past medical history includes PSC - follows Dr. Elian Moncada [facility], biliary stenosis/strictures, non-Hodgkin's lymphomas completed chemotherapy 2005, IVs mellitus, chronic abdominal pain, urolithiasis and history of MRSA. Back in July, patient had a liver biopsy revealed severe chronic hepatitis, bridging cirrhosis and grade 2/4,'s stage 3/4 biliary stasis, fatty liver. No signs of PBC or PSC. Patient presented as an years piece indicative of PSC. Transitions with elevated during hospitalization patient was on vasopressors for short period time. Patient be hospitalized in August at [facility]. Patient still has her gallbladder. Patient presented to [facility] with a 2-3 day history generalized abdominal pain associated with nausea. Resume upon presentation patient was normotensive however became hypotensive. CT abdomen/pelvis revealed moderate ascites. Intrahepatic gas, similar to 06/05, nonobstructing left renal stone. Patient received 4 L normal saline and peripheral norepinephrine to maintain map. Patient is mentating appropriately present time. Received piperacillin/tazobactam P blood cultures sent 7 drawn. Lactate 1.8. 01/15: Blood cultures positive for gram-negative rods. Continues to have abdominal pain requiring hydromorphone. Tolerating clear ice chips. Requesting discontinuation of vancomycin. Subjective 01/16: Currently resting in bed in no acute distress. Receiving IV hydromorphone for pain management. Requesting advancement in diet. Agreeable to MRCP in AM. Objective Vital Signs Date Time Temp Pulse Resp B/P (MAP) Pulse Ox O2 Delivery O2 Flow Rate FiO2 01/16/17 12:00 75 01/16/17 08:54 97 01/16/17 08:00 97.7 16 118/78 (91) 01/15/17 21:18 21 01/14/17 20:00 Room Air Intake and Output 01/16/17 01/16/17 01/16/17 07:59 15:59 23:59 Intake Total 1989 ml 400 ml Balance 1989 ml 400 ml Result Diagram: 01/16/17 0545 01/16/17 0545 Other Results Microbiology Date/Time Source Procedure Growth Status 01/14/17 11:10 Blood Peripheral Aerobic Blood Culture - Preliminary Gram Negative Kurtis Resulted 01/14/17 11:10 Anaerobic Blood Culture - Preliminary Gram Negative Kurtis Resulted 01/14/17 16:00 Urine Catheterized Urine Urine Culture - Final NO GROWTH IN 48 HOURS. Complete Imaging Last Impressions Chest X-Ray 01/14/17 1036 Signed Impressions: Service Date/Time: Saturday, January 14, 2017 11:09 - CONCLUSION: No acute disease. You Morales MD FACR Abdomen/Pelvis CT 01/14/17 1036 Signed Impressions: Service Date/Time: Saturday, January 14, 2017 14:53 - CONCLUSION: Moderate ascites is evident intrahepatic air evident. Inhomogeneous contrast enhancement of the liver. Nonobstructing left renal stone There is no free air. You Morales MD FACR Objective Remarks GENERAL: 46-year-old female, critically ill currently resting in bed in no acute distress SKIN: Warm and dry. Well perfused. No rash. Positive jaundice. HEAD: Atraumatic. Normocephalic. EYES: Pupils equal and round about 2 mm bilaterally and reactive. Positive scleral icterus. No injection or drainage. ENT: No nasal bleeding or discharge. Mucous membranes pink and moist. NECK: Trachea midline. No JVD. CARDIOVASCULAR: Tachycardic, RR. S1, S2 no S4. RESPIRATORY: Clear to auscultation. Breath sounds equal bilaterally. GASTROINTESTINAL: Abdomen soft, tender to palpation epigastric region with radiation effect. Voluntary guarding. No rigidity.. MUSCULOSKELETAL: Extremities without significant peripheral edema. No obvious deformities. NEUROLOGICAL: Awake and alert. No obvious cranial nerve deficits. Motor grossly within normal limits. Five out of 5 muscle strength in the arms and legs. Normal speech. PSYCHIATRIC: Appropriate mood and affect; insight and judgment normal. Vascular Central Line Catheter: Yes Assessment to: Continue Date of Insertion: Jan 14, 2017 Line: Central Venous Catheter Side: Left Location: Internal, Jugular A/P Assessment and Plan Neuro/Psych: Chronic abdominal pain Hold acetaminophen secondary to elevated transaminases initially Hydromorphone as needed for pain management CV: Severe septic shock Status post 4 L crystalloid and 50 g colloid Norepinephrine currently at 4 mics grams per minute to maintain MAP greater than 65 Currently normal saline at 84 cc an hour. Initial lactate 1.8. Recheck at midnight was elevated currently down to 0.3 Resp: Nasal cannula to maintain saturations greater than or equal to 92% Incentive spirometry while awake Chest x-ray revealed no acute cardio pulmonary findings GI: History of primary sclerosing cholangitis Elevated transaminases Intrahepatic air - chronic? History biliary stenosis Hypoalbuminemia CT abdomen/pelvis revealed hepatic air. Left renal stone. Moderate ascites. Gastroenterology consultation. Has had ERCPs in the past which indicated PSC. Plan for MRCP in a.m. Her GI doctors Dr. Plummer at [facility]. IF Surgical intervention indicated she will need transfer to tertiary facility. Evaluated by general surgeon this facility in April and July. They recommended transfer at that time. : History of ureterolithiasis Fuentes catheter only if indicated Endo: Diabetes mellitus Hyperglycemia with a normal anion gap Home medication is insulin glargine 30 units at night and insulin lispro sliding scale as needed. Currently on sliding scale insulin with Accu-Cheks every 6 hours. High protocol. Novulog Renal: Monitor creatinine. Accurate I's and O's Monitor urine output Heme: Leukocytosis Anemia Thrombocytopenia Likely secondary to underlying inflammatory type process. Recheck in AM. Monitor trends. ID: Gram-negative kurtis bacteremia Currently on piperacillin//tazobactam, vancomycin and metronidazole. Blood cultures 2 01/14 gram-negative rods Source of infection biliary tract likely Infectious disease consulted. MSK: PT evaluate and treat FEN: Hyponatremia Hypophosphatemia Hypopotassemia Follow BMP in a.m. 30 mmol sodium phosphate IV 1 now. Recheck at 2100 Access - Utilize peripheral IV. Central line if indicated Prophylaxis - GI - pantoprazole - DVT - SCDs, heparin Level II follow-up John Marshall MD Jan 16, 2017 14:33
[2017-01-16] MEDS ORDERED: POTASSIUM PHOSPHATE INJ 30 MMOL in SODIUM CHLOR 0.9% 250 ML INJ 250 ML IV ONE (15:00)
[2017-01-16] MEDS: MAGNESIUM SULFATE 1 GM PREMIX 100 ML IV SCH ×2 (16:46→18:23)
[2017-01-17] VITALS (22 sets, daily range): BP systolic 89–157; BP diastolic 56–77; PULSE 81–128; RESP 12–25; TEMP 98.3–98.5; O2SAT 95–99
[2017-01-17 02:03] LABS: MAGNESIUM 1.8 MG/DL (1.5-2.5)
[2017-01-17] MEDS: metroNIDAZOLE 500 MG INJ 100 ML IV SCH ×2 (02:35→11:09)
[2017-01-17] MEDS: HYDROmorphone HCL PF 1 MG/ML VIAL IV PRN ×4 (02:35→20:43)
[2017-01-17] MEDS ORDERED: POTASSIUM CHLORIDE 25 MEQ EFFERVESCENT TAB PO PRN (04:00)
[2017-01-17] MEDS ORDERED: POTASSIUM PHOSPHATE MONOBASIC 500 MG TAB PO/TUBE PRN (04:00)
[2017-01-17] MEDS ORDERED: MAGNESIUM SULFATE INJ 2 GM in SODIUM CHLORIDE 0.9% INJ 96 ML IV PRN (04:00)
[2017-01-17] MEDS: CHLORHEXIDINE GLUCONATE 2 % 1 PACK (2 CLOTHS) TOP SCH (04:00)
[2017-01-17] MEDS ORDERED: SODIUM PHOSPHATE INJ 30 MMOL in SODIUM CHLOR 0.9% 250 ML INJ 240 ML IV PRN (04:00)
[2017-01-17] MEDS ORDERED: POTASSIUM PHOSPHATE MONOBASIC 500 MG TAB PO PRN (04:00)
[2017-01-17] MEDS ORDERED: POTASSIUM CHLOR 40 MEQ PREMIX 100 ML IV PRN ×2 (04:00)
[2017-01-17] MEDS ORDERED: MAGNESIUM OXIDE 400 MG TAB PO PRN (04:00)
[2017-01-17] MEDS ORDERED: POTASSIUM CHLOR 20 MEQ PREMIX 100 ML IV PRN ×2 (04:00)
[2017-01-17] MEDS ORDERED: MAGNESIUM SULFATE INJ 4 GM in SODIUM CHLORIDE 0.9% INJ 92 ML IV PRN (04:00)
[2017-01-17] MEDS: PIPERACIL-TAZO 4.5 GM PREMIX 100 ML IV SCH ×4 (05:00→23:32)
[2017-01-17] MEDS: SODIUM CHLOR 0.9% 1000 ML INJ 1,000 ML IV SCH ×2 (05:35→20:45)
[2017-01-17] MEDS: POTASSIUM PHOSPHATE INJ 30 MMOL in SODIUM CHLOR 0.9% 250 ML INJ 250 ML IV PRN (05:45)
[2017-01-17] MEDS: INSULIN NovoLIN REGULAR SUPPLEMENTAL SCALE SQ SCH ×4 (06:00→18:00)
[2017-01-17 06:59] LABS: HEMATOCRIT 35.8 % (35.0-46.0); MEAN CELL VOLUME 85.7 FL (80.0-100.0); MEAN CORPUSCULAR HEMOGLOBIN 28.1 PG (27.0-34.0); MEAN CORPUSCULAR HGB CONC 32.8 % (32.0-36.0); PLATELET COUNT 98 TH/MM3 (150-450); RED BLOOD COUNT 4.18 MIL/MM3 (4.00-5.30); RED CELL DISTRIBUTION WIDTH 17.3 % (11.6-17.2)
[2017-01-17 07:02] LABS: ANION GAP 10 MEQ/L (5-15); AST (GOT) 187 U/L (15-37); BICARBONATE 22.5 MEQ/L (21.0-32.0); BLOOD UREA NITROGEN 5 MG/DL (7-18); CHLORIDE 107 MEQ/L (98-107); GLOMERULAR FILTRATION RATE 207 ML/MIN (>89); MAGNESIUM 1.7 MG/DL (1.5-2.5); POTASSIUM 3.2 MEQ/L (3.5-5.1); SODIUM (NA) 139 MEQ/L (136-145)
[2017-01-17 07:03] LABS: ALT (GPT) 160 U/L (10-53)
[2017-01-17 07:09] LABS: HEMO FLAGS AUTO DIFF
[2017-01-17 07:16] LABS: ALKALINE PHOSPHATASE 1196 U/L (45-117)
[2017-01-17] MEDS: SODIUM CHLORIDE 0.9% FLUSH 10 ML FLUSH IV FLUSH SCH ×2 (07:57→20:44)
[2017-01-17] MEDS: SODIUM CHLORIDE 0.9% FLUSH 10 ML FLUSH IV FLUSH PRN (07:57)
[2017-01-17 08:46] LABS: BANDS 3 % (0-6); NEUTROPHIL # MANUAL DIFF 6.3 TH/MM3 (1.8-7.7); PLATELET ESTIMATE SMEAR LOW (NORMAL); POLYS (SEG NEUTROPHILS) 76 % (16-70); SCAN/DIFF FINAL DIFF MANUAL; WBC DIFF SAMPLE 100
[2017-01-17 08:47] LABS: HOWELL-JOLLY BODIES PRESENT (NONE SEEN); PLATELET MORPHOLOGY ENLARGED (NORMAL); TARGET CELLS 2+ (NORMAL); TOXIC VACUOLATION PRESENT (NONE SEEN)
[2017-01-17] MEDS: ARTIFICIAL TEARS OPTH SOLN 15 ML BTL EACH EYE SCH ×3 (09:00→18:00)
--- NOTE | 2017-01-17 10:56 | HHI.CCPN ---
Subjective Remarks/Hospital Course This is a 46-year-old female. Date of admission 01/06/2017. Past medical history includes PSC - follows Dr. Elian Moncada [facility], biliary stenosis/strictures, non-Hodgkin's lymphomas completed chemotherapy 2005, IVs mellitus, chronic abdominal pain, urolithiasis and history of MRSA. Back in July, patient had a liver biopsy revealed severe chronic hepatitis, bridging cirrhosis and grade 2/4,'s stage 3/4 biliary stasis, fatty liver. No signs of PBC or PSC. Patient presented as an years piece indicative of PSC. Transitions with elevated during hospitalization patient was on vasopressors for short period time. Patient be hospitalized in August at [facility]. Patient still has her gallbladder. Patient presented to [facility] with a 2-3 day history generalized abdominal pain associated with nausea. Resume upon presentation patient was normotensive however became hypotensive. CT abdomen/pelvis revealed moderate ascites. Intrahepatic gas, similar to 06/05, nonobstructing left renal stone. Patient received 4 L normal saline and peripheral norepinephrine to maintain map. Patient is mentating appropriately present time. Received piperacillin/tazobactam P blood cultures sent 7 drawn. Lactate 1.8. 01/15: Blood cultures positive for gram-negative rods. Continues to have abdominal pain requiring hydromorphone. Tolerating clear ice chips. Requesting discontinuation of vancomycin. 01/16: Currently resting in bed in no acute distress. Receiving IV hydromorphone for pain management. Requesting advancement in diet. Agreeable to MRCP in AM. Subjective 01/17: Currently resting in bed. States pain is 9 out of 10. Plan for MRCP today. Off all vasopressors. Objective Vital Signs Date Time Temp Pulse Resp B/P (MAP) Pulse Ox O2 Delivery O2 Flow Rate FiO2 01/17/17 09:19 96 21 01/17/17 06:00 89 01/17/17 04:00 98.3 15 118/77 (91) 01/14/17 20:00 Room Air Intake and Output 01/17/17 01/17/17 01/18/17 08:00 16:00 00:00 Output Total 1000 ml Balance -1000 ml Result Diagram: 01/17/17 0630 01/17/17 06 Other Results Microbiology Date/Time Source Procedure Growth Status 01/14/17 11:10 Blood Peripheral Aerobic Blood Culture - Final Klebsiella Pneumoniae Complete 01/14/17 11:10 Anaerobic Blood Culture - Final Klebsiella Pneumoniae Complete 01/14/17 16:00 Urine Catheterized Urine Urine Culture - Final NO GROWTH IN 48 HOURS. Complete Imaging Last Impressions Chest X-Ray 01/14/17 1036 Signed Impressions: Service Date/Time: Saturday, January 14, 2017 11:09 - CONCLUSION: No acute disease. You Morales MD FACR Abdomen/Pelvis CT 01/14/17 1036 Signed Impressions: Service Date/Time: Saturday, January 14, 2017 14:53 - CONCLUSION: Moderate ascites is evident intrahepatic air evident. Inhomogeneous contrast enhancement of the liver. Nonobstructing left renal stone There is no free air. You Morales MD FACR Objective Remarks GENERAL: 46-year-old female, critically ill currently resting in bed in no acute distress SKIN: Warm and dry. Well perfused. No rash. Positive jaundice. HEAD: Atraumatic. Normocephalic. EYES: Pupils equal and round about 2 mm bilaterally and reactive. Positive scleral icterus. No injection or drainage. ENT: No nasal bleeding or discharge. Mucous membranes pink and moist. NECK: Trachea midline. No JVD. CARDIOVASCULAR: Tachycardic, RR. S1, S2 no S4. RESPIRATORY: Clear to auscultation. Breath sounds equal bilaterally. GASTROINTESTINAL: Abdomen soft, tender to palpation epigastric region with radiation effect. Voluntary guarding. No rigidity.. MUSCULOSKELETAL: Extremities without significant peripheral edema. No obvious deformities. NEUROLOGICAL: Awake and alert. No obvious cranial nerve deficits. Motor grossly within normal limits. Five out of 5 muscle strength in the arms and legs. Normal speech. PSYCHIATRIC: Appropriate mood and affect; insight and judgment normal. Date of Insertion: Jan 14, 2017 Line: Central Venous Catheter Side: Left Location: Internal, Jugular A/P Assessment and Plan Neuro/Psych: Chronic abdominal pain Hold acetaminophen secondary to elevated transaminases initially Hydromorphone as needed for pain management CV: Severe septic shock Status post 4 L crystalloid and 50 g colloid Norepinephrine currently has been weaned off to maintain MAP greater than 65 Currently normal saline at 84 cc an hour. Initial lactate 1.8. Recheck at midnight was elevated currently down to 0.3 Resp: Nasal cannula to maintain saturations greater than or equal to 92% Incentive spirometry while awake Chest x-ray revealed no acute cardio pulmonary findings GI: History of primary sclerosing cholangitis Elevated transaminases Intrahepatic air - chronic? History biliary stenosis Hypoalbuminemia CT abdomen/pelvis revealed hepatic air. Left renal stone. Moderate ascites. Gastroenterology consultation. Has had ERCPs in the past which indicated PSC. Plan for MRCP in a.m. 01/17. Her GI doctors Dr. Plummer at [facility]. IF Surgical intervention indicated she will need transfer to tertiary facility. Evaluated by general surgeon this facility in April and July. They recommended transfer at that time. : History of ureterolithiasis Feuntes catheter only if indicated Endo: Diabetes mellitus Hyperglycemia with a normal anion gap Home medication is insulin glargine 30 units at night and insulin lispro sliding scale as needed. Currently on sliding scale insulin with Accu-Cheks every 6 hours. High protocol. Novulog Renal: Monitor creatinine. Accurate I's and O's Monitor urine output Heme: Thrombocytopenia Likely secondary to underlying inflammatory type process. Recheck in AM. Monitor trends. ID: Klebsiella pneumonia bacteremia Currently on piperacillin//tazobactam, vancomycin and metronidazole. Blood cultures 2 01/14 Klebsiella pneumonia Source of infection biliary tract likely Infectious disease consulted. MSK: PT evaluate and treat FEN: Hypopotassemia Follow BMP in a.m. 40 mEq KCl IV 1. Recheck at 1800 Access -Left IJ CVL day 4 Prophylaxis - GI - pantoprazole - DVT - SCDs, heparin Level II follow-up John Marshall MD Jan 17, 2017 10:56
[2017-01-17] MEDS ORDERED: POTASSIUM CHLOR 40 MEQ PREMIX 100 ML IV ONE (11:00)
[2017-01-17] MEDS: PANTOPRAZOLE SODIUM 40 MG VIAL IV SCH (11:04)
[2017-01-17] MEDS: DOCUSATE SODIUM 50 MG/SENNA 8.6 MG TAB PO SCH ×2 (11:04→20:44)
[2017-01-17] MEDS: HEPARIN SODIUM - SQ 10,000 UNITS/ML VIAL SQ SCH ×2 (11:07→20:44)
[2017-01-17] MEDS ORDERED: VANCOMYCIN 1,000 MG/NS 250 ML IV SCH ×2 (12:00)
[2017-01-17] MEDS: MAGNESIUM SULFATE 1 GM PREMIX 100 ML IV SCH ×2 (12:00→13:27)
[2017-01-17] MEDS ORDERED: LORazepam 2 MG/ML VIAL IV PUSH ONE (14:00)
--- NOTE | 2017-01-17 14:59 | PD.ID.CON ---
History of Present Illness Service ID Consult Requested By Breezy Marshall Reason for Consult PSC; bacteremia Primary Care Physician Gilmar Matos, DO Diagnoses: History of Present Illness 46 yo female well known to me from her previous numerous admissions Pt has a h/o primary sclerosing cholangitis (PSC) and numerous biliary stents placed i the padst, she was admitted multiple times with biliary sepsis She is followed by [facility] for her PSC, but is not yet on transplant list She presented with ,malaise, fever and RUQ pain as well as back pain x few days to 1 week On admission she w as hypotensice, febrile, up to 103, has leukocytosis and bandemia Her blood clx are growing Kleb pneum Urine is mildly abnormal (16 WBC), but clx with no growth QUite abnormal LFTs will alk phos > 1100 CT showed Moderate ascites is evident intrahepatic air evident Pt significant ly improved and today she is off pressors and afebrile MRCP is planned Review of Systems Constitutional: COMPLAINS OF: Fatigue, Fever Gastrointestinal: COMPLAINS OF: Abdominal pain Musculoskeletal: COMPLAINS OF: Back pain Except as stated in HPI: all other systems reviewed are Neg Past Family Social History Allergies: Coded Allergies: MRI PRECAUTION (Verified Allergy, Severe, NAUSEA; PER PATIENT IT IS A GADOLINIUM ALLERGY KMD 11/25/12, 02/14/17) gadobenic acid (Unverified Allergy, Severe, BREATHING PROBLEMS, N/V,CHILLS , 02/14/17) gadodiamide (Unverified Allergy, Severe, BREATHING PROBLEMS, N/V,CHILLS, ) gadoteridol (Unverified Allergy, Severe, BREATHING PROBLEMS, N/V,CHILLS, ) ketorolac (Unverified Allergy, Severe, Shortness of Breath, 02/14/17) morphine (Unverified Allergy, Severe, BREATHING PROBLEMS, 02/14/17) Past Medical History Biliary obstruction secondary to strictures Sclerosing cholangitis Non-Hodgkin's lymphoma Diabetes Ureterolithiasis MRSA and wound Liver Mass. Past Surgical History Multiple ERCP with stent placement Splenectomy Biliary drain Liver biopsy Shockwave lithotripsyreviewed Active Ordered Medications Medications where reviewed in EMR Antibiotics Include: zosyn flagyl vancomycin Family History reviewed Non-Contributory. Social History No Tobacco. No ETOH. No Illicit Drugs. Physical Exam Vital Signs Vital Signs Date Time Temp Pulse Resp B/P (MAP) Pulse Ox O2 Delivery O2 Flow Rate FiO2 01/17/17 09:19 96 21 01/17/17 08:24 12 01/17/17 08:00 157/54 01/17/17 06:00 89 01/17/17 04:00 98.3 86 15 118/77 (91) 95 01/17/17 04:00 86 01/17/17 02:00 94 01/17/17 00:00 91 01/17/17 00:00 98.3 91 18 116/76 (89) 97 01/16/17 22:00 96 01/16/17 20:00 84 01/16/17 20:00 98.4 84 18 122/78 (93) 98 01/16/17 19:13 97 01/16/17 18:00 107 01/16/17 16:00 97.9 79 16 103/73 (83) 95 01/16/17 16:00 137 Physical Exam CONSTITUTIONAL/GENERAL: This is a thin chronically ill appearing patient, in no apparent distress. SKIN: + mild jaundice, rashes, or lesions. . Skin temperature appropriate. Not diaphoretic. HEAD: Atraumatic. Normocephalic. EYES: Pupils equal and round and reactive. Extraocular motions intact. mild scleral icterus. No injection or drainage. Fundi not examined. ENT: Hearing grossly normal. Nose without bleeding or purulent drainage. Oral mucosae without visible erythema, exudates, masses, or lesions. Edentulous NECK: Trachea midline. Supple, nontender. CARDIOVASCULAR: Regular rate and rhythm without murmurs, gallops, or rubs. No JVD. Peripheral pulses symmetric. RESPIRATORY/CHEST: Symmetric, unlabored respirations. Clear to auscultation. Breath sounds equal bilaterally. No wheezes, rales, or rhonchi. GASTROINTESTINAL: Abdomen soft, marked RUQ tenderness w/o guarding or rebound , nondistended. No guarding. Bowel sounds present. GENITOURINARY: Without palpable bladder distension. No suprapubic tenderness + b/l CVA tenderness MUSCULOSKELETAL: Extremities without clubbing, cyanosis, or edema. No joint tenderness or effusion noted. No calf tenderness. No mottling or clubbing. LYMPHATICS: No palpable cervical or supraclavicular adenopathy. NEUROLOGICAL: Awake and alert. Motor and sensory grossly within normal limits. Follows commands. Normal speech. Moves all extremities. PSYCHIATRIC: No obvious anxiety/depression. no apparent hallucinations or other psychotic thought process. Laboratory Laboratory Tests Test 01/16/17 23:30 01/17/17 06:30 Potassium Level 3.0 3.2 Phosphorus Level 1.8 1.1 Magnesium Level 1.8 1.7 Vancomycin Level Trough 7.8 White Blood Count 8.0 Red Blood Count 4.18 Hemoglobin 11.7 Hematocrit 35.8 Mean Corpuscular Volume 85.7 Mean Corpuscular Hemoglobin 28.1 Mean Corpuscular Hemoglobin Concent 32.8 Red Cell Distribution Width 17.3 Platelet Count 98 Mean Platelet Volume 12.5 CBC Comment AUTO DIFF Differential Total Cells Counted 100 Neutrophils % (Manual) 76 Band Neutrophils % 3 Lymphocytes % 8 Monocytes % 13 Neutrophils # (Manual) 6.3 Differential Comment FINAL DIFF MANUAL Toxic Vacuolation PRESENT Platelet Estimate LOW Platelet Morphology Comment ENLARGED Target Cells 2+ Kelly-Yuba Bodies PRESENT Blood Urea Nitrogen 5 Creatinine 0.34 Random Glucose 268 Total Protein 5.1 Albumin 1.7 Calcium Level 8.0 Alkaline Phosphatase 1196 Aspartate Amino Transf (AST/SGOT) 187 Alanine Aminotransferase (ALT/SGPT) 160 Total Bilirubin 6.0 Sodium Level 139 Chloride Level 107 Carbon Dioxide Level 22.5 Anion Gap 10 Estimat Glomerular Filtration Rate 207 Date/Time Source Procedure Growth Status 01/14/17 11:10 Blood Peripheral Aerobic Blood Culture - Final Klebsiella Pneumoniae Complete 01/14/17 11:10 Anaerobic Blood Culture - Final Klebsiella Pneumoniae Complete 01/14/17 16:00 Urine Catheterized Urine Urine Culture - Final NO GROWTH IN 48 HOURS. Complete Result Diagram: 01/17/1730 01/17/17 0630 Imaging Last Impressions Chest X-Ray 01/14/17 1036 Signed Impressions: Service Date/Time: Saturday, January 14, 2017 11:09 - CONCLUSION: No acute disease. You Morales MD FACR Abdomen/Pelvis CT 01/14/17 1036 Signed Impressions: Service Date/Time: Saturday, January 14, 2017 14:53 - CONCLUSION: Moderate ascites is evident intrahepatic air evident. Inhomogeneous contrast enhancement of the liver. Nonobstructing left renal stone There is no free air. You Morales MD FACR Assessment and Plan Assessment and Plan PSC : primary sclerosing cholangitis Cholangitis Kleb pneumo, citrobacter bacteremia, sepsis, recurrent - she ws here in July with the same problem Source is likely billiary, pt probably has another episode of cholangitis Unlikely UTI cont zosyn - dc vancomycin, flagyl - will fu MRCP results Discussed Condition With Christiane Gardner MD Jan 17, 2017 14:59
--- NOTE | 2017-01-17 15:23 | HHI.GIFU ---
Subjective Remarks Sitting up in bed. Pain is controlled and she is feeling better. She wants to eat. MRCP is scheduled for today. (Aliyah Mosher) Objective Vitals I&O Vital Signs Date Time Temp Pulse Resp B/P (MAP) Pulse Ox O2 Delivery O2 Flow Rate FiO2 01/17/17 11:00 90 19 92/57 (69) 95 01/17/17 10:00 91 21 97/62 (74) 97 01/17/17 09:19 96 21 01/17/17 09:00 93 13 98/63 (75) 95 01/17/17 08:24 12 01/17/17 08:01 98.5 128 15 157/64 (95) 96 01/17/17 08:00 157/54 01/17/17 07:00 120 25 132/63 (86) 96 01/17/17 06:00 89 01/17/17 04:00 98.3 86 15 118/77 (91) 95 01/17/17 04:00 86 01/17/17 02:00 94 01/17/17 00:00 91 01/17/17 00:00 98.3 91 18 116/76 (89) 97 01/16/17 22:00 96 01/16/17 20:00 84 01/16/17 20:00 98.4 84 18 122/78 (93) 98 01/16/17 19:13 97 01/16/17 18:00 107 01/16/17 16:00 97.9 79 16 103/73 (83) 95 01/16/17 16:00 137 I/O 01/16/17 01/16/17 01/16/17 01/17/17 01/17/17 01/17/17 07:00 15:00 23:00 07:00 15:00 23:00 Intake Total 1989 ml 500 ml 1020 ml 250 ml 232 ml Output Total 800 ml 1000 ml Balance 1989 ml 500 ml 220 ml -750 ml 232 ml Intake Oral 120 ml IV Total 1989 ml 500 ml 900 ml 250 ml 232 ml Output Urine Total 800 ml 1000 ml # Voids 1 # Bowel Movements 0 Laboratory Laboratory Tests Test 01/16/17 23:30 01/17/17 06:30 Potassium Level 3.0 3.2 Phosphorus Level 1.8 1.1 Magnesium Level 1.8 1.7 Vancomycin Level Trough 7.8 White Blood Count 8.0 Red Blood Count 4.18 Hemoglobin 11.7 Hematocrit 35.8 Mean Corpuscular Volume 85.7 Mean Corpuscular Hemoglobin 28.1 Mean Corpuscular Hemoglobin Concent 32.8 Red Cell Distribution Width 17.3 Platelet Count 98 Mean Platelet Volume 12.5 CBC Comment AUTO DIFF Differential Total Cells Counted 100 Neutrophils % (Manual) 76 Band Neutrophils % 3 Lymphocytes % 8 Monocytes % 13 Neutrophils # (Manual) 6.3 Differential Comment FINAL DIFF MANUAL Toxic Vacuolation PRESENT Platelet Estimate LOW Platelet Morphology Comment ENLARGED Target Cells 2+ [place] Bodies PRESENT Blood Urea Nitrogen 5 Creatinine 0.34 Random Glucose 268 Total Protein 5.1 Albumin 1.7 Calcium Level 8.0 Alkaline Phosphatase 1196 Aspartate Amino Transf (AST/SGOT) 187 Alanine Aminotransferase (ALT/SGPT) 160 Total Bilirubin 6.0 Sodium Level 139 Chloride Level 107 Carbon Dioxide Level 22.5 Anion Gap 10 Estimat Glomerular Filtration Rate 207 Date/Time Source Procedure Growth Status 01/14/17 11:10 Blood Peripheral Aerobic Blood Culture - Final Klebsiella Pneumoniae Complete 01/14/17 11:10 Anaerobic Blood Culture - Final Klebsiella Pneumoniae Complete 01/14/17 16:00 Urine Catheterized Urine Urine Culture - Final NO GROWTH IN 48 HOURS. Complete Imaging Last Impressions Chest X-Ray 01/14/17 1036 Signed Impressions: Service Date/Time: Saturday, January 14, 2017 11:09 - CONCLUSION: No acute disease. You Morales MD FACR Abdomen/Pelvis CT 01/14/17 1036 Signed Impressions: Service Date/Time: Saturday, January 14, 2017 14:53 - CONCLUSION: Moderate ascites is evident intrahepatic air evident. Inhomogeneous contrast enhancement of the liver. Nonobstructing left renal stone There is no free air. You Morales MD FACR Physical Exam HEENT: Normocephalic; atraumatic;+ jaundice. CHEST: CTA CARDIAC: RRR. ABDOMEN: Soft,mildly bloated, mild epigastric/ruq tenderness; hepatosplenomegaly; bowel sounds are present in all four quadrants. EXTREMITIES: No clubbing, cyanosis, or edema. SKIN: Normal; no rash;+ jaundice. GREASE MAKER HEAD: No focal deficits; alert and oriented times three. (Aliyah Mosher) Assessment and Plan Plan ASSESSMENT: - Abdominal pain/nausea/diarrhea fevers with hx of recurrent cholangitis, biliary strictures. Pt has recurrent abdominal pain/cholangitis. States she has been good recently, but started having epigastric/ruq pain 3 days ago with associated fever of 104.0. CT Scan abdomen and pelvis with IV contrast (01/14/17)----> Moderate ascites is evident intrahepatic air evident, inhomogeneous contrast enhancement of the liver, nonobstructing left renal stone, there is no free air. LFTs elevated 6.0, AST 187, ALT 160, Alk Phosph 1196. (In august, LFTs were 1.9, 130, 149, 1496.). Suspect cholangitis. MRCP is ordered- spoke to MRI, they have a few stat MRI's and then will call. Ruben Dodge. WBC improved, 8.0. ? need for PTC- await MRCP, will follow this. - Sepsis, Bandemia, Bacteremia, Leukocytosis. Suspect Cholangitis. WBC 14.5. BCx with Klebseilla pneumoniae, Citrobacter species Ruben Dodge. Improving, WBC down to 8.0. Afebrile, feeling better. - Liver cirrhosis. 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 Cytoplasmic inclusions suggestive of Alpha 1 Antitrypsin are present as may be observed in cirrhotic livers however it is suggested that serologic studies be performed. The pathological features present in this biopsy material are different from that observed in the liver biopsy of 01/19/14. She is followed by Dr. Plummer at [facility]- she states that they are starting workup for liver transplant evaluation. She was last seen in August of this year. - Anemia. No acute blood loss. 11.7/35.8. - Gastroparesis. Dx a few months ago - DM per attending. 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 At one point, she was requiring frequent ERCP with stent exchanges for this, but more recently, she has not been able to have an internal stent placed and has required biliary drains periodically. She was evaluated at [facility] for liver transplant evaluation and states that she underwent ERCP in May of 2015 with them. More recently she has been seen by [facility] (Dr. Plummer) and was last hospitalized in August of this year for cholangitis/sepsis. She did not require any procedures at that time. The patient reports that they are starting the workup for possible liver transplant at [facility]. AFP 6.1. PLAN: - NPO for MRCP - Can have full liquids after MRCP - Await MRCP - Cont. Abx- Vanco, Zosyn - Monitor labs - Supportive care - Further recommendations to follow based on results of above - ? need for PTC, await MRCP - If worsening condition, consider tx to [facility] - PT seen and examined by Dr. Crawford and myself and this note is written on his behalf (Aliyah Mosher) Physician Comments Agreed to have MRCP, will check results and recommendations to follow. (Junior Crawford MD) Aliyah Mosher Jan 17, 2017 15:23 Junior Crawford MD Jan 17, 2017 17:43
[2017-01-17] MEDS ORDERED: NOREPINEPHRINE INJ 4 MG in SODIUM CHLOR 0.9% 250 ML INJ 246 ML IV PRN (17:30)
--- NOTE | 2017-01-17 19:33 | RADRPT ---
EXAM DATE/TIME: 01/17/2017 17:12 [facility] COMPARISON: BILIARY DRAINAGE W STENT PLACE, July 31, 2016, 13:05. CHOLANGIOGRAM, PERCUT ANEOUS, July 31, 2016, 0:00. CHEST SINGLE AP, January 14, 2017, 11:09. CT ABDOMEN & PELVIS W CONTRA ST, September 11, 2016, 11:19. MRCP W/O CONTRAST, July 30, 2016, 13:21. INDICATIONS : Abdominal pain. MEDICAL HISTORY : Diabetes mellitus type 2. Cirrhosis. Non-Hodgkin's lymphoma. SURGICAL HISTORY : Splenectomy. ENCOUNTER: Initial ACUITY: 4-6 days PAIN SCORE: 5/10 LOCATION: Abdomen. TECHNIQUE: Multiplanar, multisequence magnetic resonance imaging of the abdomen was performed. H igh-resolution 3D dataset was utilized to reconstruct maximum-intensity projection (MIP) images. FINDINGS: The liver is diffusely abnormal with very prominent hypertrophy at the left lobe. There is a nodular liver surface consistent with cirrhosis. There does appear to be atrophy of the right lobe of the liver. There is some persistent increased signal seen at the right lobe of the liver whi ch is nonspecific. The patient is status post splenectomy. It appears the pancreatic tail has been at least partially resected. The pancreatic duct remains dilated in the pancreatic body measuring 1.1 cm. Dilatation of the pancreatic duct in the pancreatic head is not seen. The common bile duct belo w the ankit hepatis is seen. It appears slightly distended at 7 mm. The common bile duct at the port a hepatis is not clearly identified. There is dilatation of the intrahepatic biliary ducts. Biliary ducts at the confluence between the right and left biliary ductal system is not clearly seen. The dil atation of the intrahepatic biliary ducts appears worse on the left lobe. There is some nonspecific increased signal seen in the ankit hepatis region at the expected location of the confluence of the i ntrahepatic biliary ducts. The patient is status post cholecystectomy. There is a moderate amount o f ascites present. The kidneys are unremarkable. The adrenal glands appear normal. There is a mild right pleural effus ion. There is consolidation or atelectasis at the lung bases posteriorly. CONCLUSION: 1. Diffusely abnormal appearance of the liver consistent with cirrhosis. 2. Dilatation of the intrahepatic biliary ducts. The common bile duct below the ankit hepatis appears only minimally distended at 7 mm. There is nonvisualization of the biliary confluence and common he patic duct. This could be secondary to these areas being scarred down versus a mass in this region. A distinct mass on this MRI is not clearly identified. There is some increased signal which is nonspe cific in this region. This should be correlated with the patient's history. 3. Status post splenectomy. 4. Dilatation of the pancreatic duct in the pancreatic body. The pancreatic duct does not appear dis tended in the pancreatic head region. An underlying mass causing this change cannot be excluded. Gi joseph the difficulty in evaluating the biliary system and the pancreatic duct, an ERCP may be helpful. 5. Moderate ascites. 6. Mild right pleural effusion with areas of atelectasis or consolidation at the lung bases bilateral ly. Mele Cuba MD on January 17, 2017 at 19:06 Board Certified Radiologist. This report was verified electronically.
[2017-01-18] VITALS (20 sets, daily range): BP systolic 90–150; BP diastolic 55–94; PULSE 91–133; RESP 11–30; TEMP 98–98.4; O2SAT 91–95
[2017-01-18] MEDS ORDERED: PHARMACY ORDERED LAB ONE (03:45)
[2017-01-18] MEDS: CHLORHEXIDINE GLUCONATE 2 % 1 PACK (2 CLOTHS) TOP SCH (04:00)
[2017-01-18] MEDS: SODIUM CHLOR 0.9% 1000 ML INJ 1,000 ML IV SCH ×2 (04:59→14:38)
[2017-01-18] MEDS: PIPERACIL-TAZO 4.5 GM PREMIX 100 ML IV SCH ×5 (04:59→23:52)
[2017-01-18] MEDS: HYDROmorphone HCL PF 1 MG/ML VIAL IV PRN ×5 (05:08→23:52)
[2017-01-18] MEDS: INSULIN NovoLIN REGULAR SUPPLEMENTAL SCALE SQ SCH ×4 (05:22→18:00)
[2017-01-18 08:04] LABS: HEMATOCRIT 35.9 % (35.0-46.0); MEAN CELL VOLUME 87.3 FL (80.0-100.0); MEAN CORPUSCULAR HEMOGLOBIN 27.1 PG (27.0-34.0); MEAN CORPUSCULAR HGB CONC 31.1 % (32.0-36.0); PLATELET COUNT 114 TH/MM3 (150-450); RED BLOOD COUNT 4.11 MIL/MM3 (4.00-5.30); RED CELL DISTRIBUTION WIDTH 17.3 % (11.6-17.2); WHITE BLOOD COUNT 7.2 TH/MM3 (4.0-11.0)
--- NOTE | 2017-01-18 08:04 | HHI.GIFU ---
Subjective Remarks Resting in bed. No distress. Clinically improved. Upset that she was made NPO - explained that this is only until I speak to IR and if they have no plans for any interventions I will resume her diet. States she cannot go on without eating. Pain controlled No vomiting. Afebrile (Aliyah Mosher) Objective Vitals I&O Vital Signs Date Time Temp Pulse Resp B/P (MAP) Pulse Ox O2 Delivery O2 Flow Rate FiO2 01/18/17 06:00 97 01/18/17 05:42 16 01/18/17 04:00 98.0 96 16 99/55 (70) 94 01/18/17 04:00 96 01/18/17 02:00 98 01/18/17 00:00 98.2 96 18 102/63 (76) 95 01/18/17 00:00 96 01/17/17 22:00 95 01/17/17 20:00 93 01/17/17 20:00 98.4 93 17 110/76 (87) 95 01/17/17 19:27 96 01/17/17 18:11 88 13 104/56 (72) 96 01/17/17 18:03 86 12 105/66 (79) 97 01/17/17 17:00 85 12 94/66 (75) 98 01/17/17 16:53 86 14 103/67 (79) 96 01/17/17 16:00 98.3 84 14 93/62 (72) 97 01/17/17 15:00 93 22 89/57 (68) 96 01/17/17 14:00 87 23 98/65 (76) 99 01/17/17 13:00 81 12 96/63 (74) 96 01/17/17 12:00 86 18 90/61 (71) 96 01/17/17 11:00 90 19 92/57 (69) 95 01/17/17 10:00 91 21 97/62 (74) 97 01/17/17 09:19 96 21 01/17/17 09:00 93 13 98/63 (75) 95 01/17/17 08:01 98.5 128 15 157/64 (95) 96 01/17/17 08:00 157/54 I/O 01/17/17 01/17/17 01/17/17 01/18/1701/18/17 9/1/17 07:00 15:00 23:00 07:00 15:00 23:00 Intake Total 250 ml 232 ml 830 ml 0 ml Output Total 1000 ml 450 ml 350 ml Balance -750 ml 232 ml 380 ml -350 ml Intake Oral 30 ml 0 ml IV Total 250 ml 232 ml 800 ml Output Urine Total 1000 ml 450 ml 350 ml # Bowel Movements 0 0 0 Laboratory Laboratory Tests Test 01/17/17 19:32 01/18/17 04:30 Potassium Level 3.9 Date/Time Source Procedure Growth Status 01/14/17 11:10 Blood Peripheral Aerobic Blood Culture - Final Klebsiella Pneumoniae Complete 01/14/17 11:10 Anaerobic Blood Culture - Final Klebsiella Pneumoniae Complete 01/14/17 16:00 Urine Catheterized Urine Urine Culture - Final NO GROWTH IN 48 HOURS. Complete Imaging Last Impressions Cholangiopancreatography MRI 01/17/17 0000 Signed Impressions: Service Date/Time: December 17:12 - CONCLUSION: 1. Diffusely abnormal appearance of the liver consistent with cirrhosis. 2. Dilatation of the intrahepatic biliary ducts. The common bile duct below the ankit hepatis appears only minimally distended at 7 mm. There is nonvisualization of the biliary confluence and common hepatic duct. This could be secondary to these areas being scarred down versus a mass in this region. A distinct mass on this MRI is not clearly identified. There is some increased signal which is nonspecific in this region. This should be correlated with the patient's history. 3. Status post splenectomy. 4. Dilatation of the pancreatic duct in the pancreatic body. The pancreatic duct does not appear distended in the pancreatic head region. An underlying mass causing this change cannot be excluded. Given the difficulty in evaluating the biliary system and the pancreatic duct, an ERCP may be helpful. 5. Moderate ascites. 6. Mild right pleural effusion with areas of atelectasis or consolidation at the lung bases bilaterally. Mele Cuba MD Chest X-Ray 01/14/17 1036 Signed Impressions: Service Date/Time: Saturday, January 14, 2017 11:09 - CONCLUSION: No acute disease. You Morales MD FACR Abdomen/Pelvis CT 01/14/17 1036 Signed Impressions: Service Date/Time: Saturday, January 14, 2017 14:53 - CONCLUSION: Moderate ascites is evident intrahepatic air evident. Inhomogeneous contrast enhancement of the liver. Nonobstructing left renal stone There is no free air. You Morales MD FACR Physical Exam HEENT: Normocephalic; atraumatic;+ jaundice. CHEST: CTA CARDIAC: RRR. ABDOMEN: Soft,mildly bloated, mild epigastric/ruq tenderness; hepatosplenomegaly; bowel sounds are present in all four quadrants. EXTREMITIES: No clubbing, cyanosis, or edema. SKIN: Normal; no rash;+ jaundice. BOWLING ALLEY MANAGER: No focal deficits; alert and oriented times three. (MosherAliyah Laresissa DIGITAL COURT REPORTER) Assessment and Plan Plan ASSESSMENT: - Recurrent cholangitis, biliary strictures, obstruction with abdominal pain. Presented to ER with 3 day hx of epigastric/ruq pain and fever of 104.0. CT Scan abdomen and pelvis with IV contrast (01/14/17)----> Moderate ascites is evident intrahepatic air evident, inhomogeneous contrast enhancement of the liver, nonobstructing left renal stone, there is no free air. MRCP without contrast (01/17/17)----> Diffusely abnormal appearance of the liver consistent with cirrhosis. Dilatation of the intrahepatic biliary ducts. The CBD below the ankit hepatis appears only minimally distended at 7 mm. There is nonvisualization of the biliary confluence and common hepatic duct. this could be secondary to these areas being scarred down versus a mass in this region. A distinct mass on this MRI is not clearly identified. There is some increased signal which is nonspecific in this region. This should be correlated with the patient's history. S/P splenectomy. Dilatation of the pancreatic duct in the pancreatic body. The pancreatic duct does not appear distended in the pancreatic head region. An underlying mass causing this change cannot be excluded. Given the difficulty in evaluating the biliary system and the pancreatic duct, an ERCP may be helpful. Moderate ascites. Mild right pleural effusion with areas of atelectasis or consolidation at the lung bases bilaterally. LFTs remain elevated with T. Bilirubin 6.0, AST 187, ALT 160, Alk Phosph 1196. Blood cx (+) on 01/14 with Klebsiella pneumoniae, citrobacter species. WBC/ fever improving with abx- Zosyn. We have not been able to perform successful ERCP due to anatomy/strictures. Will discuss case with IR, if they do not feel that they have any interventions to offer, will contact Dr. Plummer at [facility] for possible transfer to tertiary ( pt known to him) - Sepsis, Bandemia, Bacteremia, Leukocytosis. Suspect Cholangitis. BCx with Klebseilla pneumoniae, Citrobacter species (01/14) improving on abx. Zosyn. Afebrile. - Liver cirrhosis. 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 Cytoplasmic inclusions suggestive of Alpha 1 Antitrypsin are present as may be observed in cirrhotic livers however it is suggested that serologic studies be performed. The pathological features present in this biopsy material are different from that observed in the liver biopsy of 01/19/14. She is followed by Dr. Plummer at [facility]- she states that they are starting workup for liver transplant evaluation. She was last seen in August of this year. AFP 6.1. - Anemia. No acute blood loss. CBC pending. - Gastroparesis. Dx a few months ago - DM per attending. 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 At one point, she was requiring frequent ERCP with stent exchanges for this, but more recently, she has not been able to have an internal stent placed and has required biliary drains periodically. She was evaluated at [facility] for liver transplant evaluation and states that she underwent ERCP in May of 2015 with them. More recently she has been seen by [facility] (Dr. Plummer) and was last hospitalized in August of this year for cholangitis/sepsis. She did not require any procedures at that time. The patient reports that they are starting the workup for possible liver transplant at [facility]. AFP 6.1. PLAN: - NPO until I am able to speak to IR - Cont. Abx- Zosyn - Monitor labs - Supportive care - Further recommendations to follow based on results of above - Will discuss case with IR for possible PTBD, if they feel patient is not a candidate, will contact Dr. Plummer at [facility] for possible tx - PT seen and examined by Dr. Prince and myself and this note is written on his behalf [id number], d/w Dr. Limon in IR, does not feel she is a candidate for PTBD, as she has multiple ducts obstructed. Call placed to [facility] . Dr. Zapata is asset protection professional- awaiting call back, face sheet needs to be faxed to [phone], but unable to print fax sheet from this computer. . (Aliyah Mosher) Plan Agree with above. Patient needs transfer to tertiary care if possible. She has cholangitis, may develop sepsis. Her illness is severe. (Wilfredo Prince MD) Aliyah Mosher Jan 18, 2017 08:04 Wilfredo Prince MD Jan 18, 2017 12:49
[2017-01-18 08:07] LABS: ALT (GPT) 123 U/L (10-53); ANION GAP 10 MEQ/L (5-15); AST (GOT) 130 U/L (15-37); BLOOD UREA NITROGEN 7 MG/DL (7-18); CHLORIDE 108 MEQ/L (98-107); GLOMERULAR FILTRATION RATE 361 ML/MIN (>89); MAGNESIUM 1.7 MG/DL (1.5-2.5); POTASSIUM 3.6 MEQ/L (3.5-5.1); SODIUM (NA) 142 MEQ/L (136-145)
[2017-01-18 08:11] LABS: HEMO FLAGS AUTO DIFF
[2017-01-18 08:21] LABS: ALKALINE PHOSPHATASE 1330 U/L (45-117); TOTAL BILIRUBIN ADULT 5.4 MG/DL (0.2-1.0)
[2017-01-18] MEDS: SODIUM CHLORIDE 0.9% FLUSH 10 ML FLUSH IV FLUSH SCH ×2 (08:59→15:17)
[2017-01-18] MEDS: HEPARIN SODIUM - SQ 10,000 UNITS/ML VIAL SQ SCH ×2 (08:59→09:46)
[2017-01-18] MEDS: POTASSIUM PHOSPHATE INJ 30 MMOL in SODIUM CHLOR 0.9% 250 ML INJ 250 ML IV PRN (09:00)
[2017-01-18] MEDS: DOCUSATE SODIUM 50 MG/SENNA 8.6 MG TAB PO SCH ×2 (09:00→19:41)
[2017-01-18] MEDS: ARTIFICIAL TEARS OPTH SOLN 15 ML BTL EACH EYE SCH ×3 (09:00→18:00)
[2017-01-18] MEDS: PANTOPRAZOLE SODIUM 40 MG VIAL IV SCH (09:47)
[2017-01-18 10:01] LABS: BANDS 9 % (0-6); EOSINOPHILS 3 % (0-4); NEUTROPHIL # MANUAL DIFF 4.8 TH/MM3 (1.8-7.7); PLATELET ESTIMATE SMEAR LOW (NORMAL); POLYS (SEG NEUTROPHILS) 57 % (16-70); SCAN/DIFF FINAL DIFF MANUAL; WBC DIFF SAMPLE 100
[2017-01-18 10:02] LABS: HOWELL-JOLLY BODIES PRESENT (NONE SEEN); TARGET CELLS 2+ (NORMAL)
[2017-01-18 10:03] LABS: PLATELET MORPHOLOGY ENLARGED (NORMAL)
--- NOTE | 2017-01-18 10:26 | HHI.CCPN ---
Subjective Remarks/Hospital Course This is a 46-year-old female. Date of admission 01/06/2017. Past medical history includes PSC - follows Dr. Elian Moncada [facility], biliary stenosis/strictures, non-Hodgkin's lymphomas completed chemotherapy 2005, IVs mellitus, chronic abdominal pain, urolithiasis and history of MRSA. Back in July, patient had a liver biopsy revealed severe chronic hepatitis, bridging cirrhosis and grade 2/4,'s stage 3/4 biliary stasis, fatty liver. No signs of PBC or PSC. Patient presented as an years piece indicative of PSC. Transitions with elevated during hospitalization patient was on vasopressors for short period time. Patient be hospitalized in August at [facility]. Patient still has her gallbladder. Patient presented to [place] with a 2-3 day history generalized abdominal pain associated with nausea. Resume upon presentation patient was normotensive however became hypotensive. CT abdomen/pelvis revealed moderate ascites. Intrahepatic gas, similar to 06/05, nonobstructing left renal stone. Patient received 4 L normal saline and peripheral norepinephrine to maintain map. Patient is mentating appropriately present time. Received piperacillin/tazobactam P blood cultures sent 7 drawn. Lactate 1.8. 01/15: Blood cultures positive for gram-negative rods. Continues to have abdominal pain requiring hydromorphone. Tolerating clear ice chips. Requesting discontinuation of vancomycin. 01/16: Currently resting in bed in no acute distress. Receiving IV hydromorphone for pain management. Requesting advancement in diet. Agreeable to MRCP in AM. Subjective 01/17: Currently resting in bed. States pain is 9 out of 10. Plan for MRCP today. Off all vasopressors. Objective Vital Signs Date Time Temp Pulse Resp B/P (MAP) Pulse Ox O2 Delivery O2 Flow Rate FiO2 01/18/17 08:56 94 01/18/17 06:00 97 01/18/17 05:42 16 01/18/17 04:00 98.0 99/55 (70) 01/17/17 09:19 21 01/14/17 20:00 Room Air Intake and Output 01/18/17 01/18/17 01/18/17 07:59 15:59 23:59 Intake Total 0 ml Output Total 350 ml Balance -350 ml Result Diagram: 01/18/17 04301/18/17 043 Imaging Last Impressions Chest X-Ray 01/14/17 1036 Signed Impressions: Service Date/Time: Saturday, January 14, 2017 11:09 - CONCLUSION: No acute disease. You Morales MD FACR Abdomen/Pelvis CT 01/14/17 1036 Signed Impressions: Service Date/Time: Saturday, January 14, 2017 14:53 - CONCLUSION: Moderate ascites is evident intrahepatic air evident. Inhomogeneous contrast enhancement of the liver. Nonobstructing left renal stone There is no free air. You Morales MD FACR Objective Remarks GENERAL: 46-year-old female, critically ill currently resting in bed in no acute distress SKIN: Warm and dry. Well perfused. No rash. Positive jaundice. HEAD: Atraumatic. Normocephalic. EYES: Pupils equal and round about 2 mm bilaterally and reactive. Positive scleral icterus. No injection or drainage. ENT: No nasal bleeding or discharge. Mucous membranes pink and moist. NECK: Trachea midline. No JVD. CARDIOVASCULAR: Tachycardic, RR. S1, S2 no S4. RESPIRATORY: Clear to auscultation. Breath sounds equal bilaterally. GASTROINTESTINAL: Abdomen soft, tender to palpation epigastric region with radiation effect. Voluntary guarding. No rigidity.. MUSCULOSKELETAL: Extremities without significant peripheral edema. No obvious deformities. NEUROLOGICAL: Awake and alert. No obvious cranial nerve deficits. Motor grossly within normal limits. Five out of 5 muscle strength in the arms and legs. Normal speech. PSYCHIATRIC: Appropriate mood and affect; insight and judgment normal. Date of Insertion: Jan 14, 2017 Line: Central Venous Catheter Side: Left Location: Internal, Jugular A/P Assessment and Plan Neuro/Psych: Chronic abdominal pain Hold acetaminophen secondary to elevated transaminases initially Hydromorphone as needed for pain management CV: Severe septic shock Status post 4 L crystalloid and 50 g colloid Norepinephrine currently has been weaned off to maintain MAP greater than 65 Currently normal saline at 84 cc an hour. Initial lactate 1.8. Recheck at midnight was elevated currently down to 0.3 Resp: Nasal cannula to maintain saturations greater than or equal to 92% Incentive spirometry while awake Chest x-ray revealed no acute cardio pulmonary findings GI: History of primary sclerosing cholangitis Elevated transaminases Intrahepatic air - chronic? History biliary stenosis Hypoalbuminemia CT abdomen/pelvis revealed hepatic air. Left renal stone. Moderate ascites. Gastroenterology consultation. Has had ERCPs in the past which indicated PSC. MRCP 01/17 - Diffusely abnormal appearance of the liver consistent with cirrhosis. Dilatation of the intrahepatic biliary ducts. The common bile duct below the ankit hepatis appears only minimally distended at 7 mm. There is nonvisualization of the biliary confluence and common hepatic duct. This could be secondary to these areas being scarred down versus a mass in this region. A distinct mass on this MRI is not clearly identified. There is some increased signal which is nonspecific in this region. This should be correlated with the patient's history. Status post splenectomy. Dilatation of the pancreatic duct in the pancreatic body. The pancreatic duct does not appear distended in the pancreatic head region. An underlying mass causing this change cannot be excluded. Given the difficulty in evaluating the biliary system and the pancreatic duct, an ERCP may be helpful. Moderate ascites. Mild right pleural effusion with areas of atelectasis or consolidation at the lung bases bilaterally. Her GI doctors Dr. Plummer at [facility]. Dr. Limon - RICHAR, does not feel she is a candidate for PTBD, as she has multiple ducts obstructed. Call placed to [facility] . Dr. Zapata is construction site crossing guard- awaiting call back, face sheet needs to be faxed to . IF Surgical intervention indicated she will need transfer to tertiary facility. Evaluated by general surgeon this facility in April and July. They recommended transfer at that time. : History of ureterolithiasis Fuentes catheter only if indicated Endo: Diabetes mellitus Hyperglycemia with a normal anion gap Home medication is insulin glargine 30 units at night and insulin lispro sliding scale as needed. Currently on sliding scale insulin with Accu-Cheks every 6 hours. High protocol. Novulog Renal: Monitor creatinine. Accurate I's and O's Monitor urine output Heme: Thrombocytopenia Likely secondary to underlying inflammatory type process. Recheck in AM. Monitor trends. ID: Klebsiella pneumonia bacteremia Currently on piperacillin//tazobactam enough for 01/16 vancomycin and metronidazole. Discontinued Blood cultures 2 01/14 Klebsiella pneumonia Source of infection biliary tract likely Infectious disease MSK: PT evaluate and treat FEN: Hypopotassemia Hypophosphatemia Follow BMP in a.m. Electrolyte protocol initiated. Access -Left IJ CVL day 5 Prophylaxis - GI - pantoprazole - DVT - SCDs, heparin Level II follow-up John Marshall MD Jan 18, 2017 10:26
[2017-01-18] MEDS: SODIUM CHLORIDE 0.9% FLUSH 10 ML FLUSH IV FLUSH PRN (10:39)
[2017-01-18] MEDS ORDERED: POTASSIUM CHLOR 20 MEQ PREMIX 100 ML IV ONE (11:00)
[2017-01-18] MEDS ORDERED: POTASSIUM PHOSPHATE INJ 30 MMOL in SODIUM CHLOR 0.9% 250 ML INJ 250 ML IV ONE (11:15)
[2017-01-18] MEDS: MAGNESIUM SULFATE 1 GM PREMIX 100 ML IV SCH ×3 (12:43→16:30)
[2017-01-18] MEDS ORDERED: MAGNESIUM SULFATE 1 GM PREMIX 100 ML ONE (16:26)
[2017-01-19] VITALS (19 sets, daily range): BP systolic 97–132; BP diastolic 64–89; PULSE 78–109; RESP 11–21; TEMP 98.3–98.5; O2SAT 92–96
[2017-01-19] MEDS: PIPERACIL-TAZO 4.5 GM PREMIX 100 ML IV SCH ×4 (03:57→23:21)
[2017-01-19] MEDS: HYDROmorphone HCL PF 1 MG/ML VIAL IV PRN ×2 (03:57→08:48)
[2017-01-19] MEDS: CHLORHEXIDINE GLUCONATE 2 % 1 PACK (2 CLOTHS) TOP SCH (04:00)
[2017-01-19 05:57] LABS: HEMATOCRIT 33.4 % (35.0-46.0); MEAN CELL VOLUME 85.3 FL (80.0-100.0); MEAN CORPUSCULAR HEMOGLOBIN 27.7 PG (27.0-34.0); MEAN CORPUSCULAR HGB CONC 32.5 % (32.0-36.0); PLATELET COUNT 123 TH/MM3 (150-450); RED BLOOD COUNT 3.92 MIL/MM3 (4.00-5.30); RED CELL DISTRIBUTION WIDTH 17.6 % (11.6-17.2); WHITE BLOOD COUNT 8.8 TH/MM3 (4.0-11.0)
[2017-01-19] MEDS: INSULIN NovoLIN REGULAR SUPPLEMENTAL SCALE SQ SCH ×6 (06:00→21:00)
[2017-01-19 06:03] LABS: HEMO FLAGS AUTO DIFF
[2017-01-19 07:12] LABS: BICARBONATE 26.5 MEQ/L (21.0-32.0); CALCIUM-PROTEIN CORRECTED 8.7 MG/DL (8.5-10.1); MAGNESIUM 1.9 MG/DL (1.5-2.5); POTASSIUM 3.5 MEQ/L (3.5-5.1)
[2017-01-19 07:57] LABS: BANDS 3 % (0-6); EOSINOPHILS 3 % (0-4); MYELOCYTES 1 % (0-0); NEUTROPHIL # MANUAL DIFF 7.2 TH/MM3 (1.8-7.7); POLYS (SEG NEUTROPHILS) 78 % (16-70); WBC DIFF SAMPLE 100
[2017-01-19 07:58] LABS: HOWELL-JOLLY BODIES PRESENT (NONE SEEN); PLATELET ESTIMATE SMEAR LOW (NORMAL); PLATELET MORPHOLOGY ENLARGED (NORMAL); SCAN/DIFF FINAL DIFF MANUAL; TARGET CELLS 1+ (NORMAL)
[2017-01-19] MEDS: SODIUM CHLORIDE 0.9% FLUSH 10 ML FLUSH IV FLUSH SCH ×2 (08:24→23:19)
[2017-01-19] MEDS: PANTOPRAZOLE SODIUM 40 MG VIAL IV SCH (08:24)
[2017-01-19] MEDS: DOCUSATE SODIUM 50 MG/SENNA 8.6 MG TAB PO SCH ×2 (08:24→21:00)
[2017-01-19] MEDS: HEPARIN SODIUM - SQ 10,000 UNITS/ML VIAL SQ SCH ×2 (08:25→23:20)
[2017-01-19] MEDS ORDERED: POTASSIUM PHOSPHATE/SODIUM PHOSPHATE 250 MG TAB PO ONE (10:45)
[2017-01-19] MEDS ORDERED: POTASSIUM PHOSPHATE INJ 30 MMOL in SODIUM CHLOR 0.9% 250 ML INJ 250 ML IV ONE (10:45)
[2017-01-19] MEDS: ARTIFICIAL TEARS OPTH SOLN 15 ML BTL EACH EYE SCH (11:10)
--- NOTE | 2017-01-19 12:24 | HHI.CCPN ---
Subjective Remarks/Hospital Course This is a 46-year-old female. Date of admission 01/06/2017. Past medical history includes PSC - follows Dr. Elian Moncada [facility], biliary stenosis/strictures, non-Hodgkin's lymphomas completed chemotherapy 2005, IVs mellitus, chronic abdominal pain, urolithiasis and history of MRSA. Back in July, patient had a liver biopsy revealed severe chronic hepatitis, bridging cirrhosis and grade 2/4,'s stage 3/4 biliary stasis, fatty liver. No signs of PBC or PSC. Patient presented as an years piece indicative of PSC. Transitions with elevated during hospitalization patient was on vasopressors for short period time. Patient be hospitalized in August at [facility]. Patient still has her gallbladder. Patient presented to [place] with a 2-3 day history generalized abdominal pain associated with nausea. Resume upon presentation patient was normotensive however became hypotensive. CT abdomen/pelvis revealed moderate ascites. Intrahepatic gas, similar to 06/05, nonobstructing left renal stone. Patient received 4 L normal saline and peripheral norepinephrine to maintain map. Patient is mentating appropriately present time. Received piperacillin/tazobactam P blood cultures sent 7 drawn. Lactate 1.8. 01/15: Blood cultures positive for gram-negative rods. Continues to have abdominal pain requiring hydromorphone. Tolerating clear ice chips. Requesting discontinuation of vancomycin. 01/16: Currently resting in bed in no acute distress. Receiving IV hydromorphone for pain management. Requesting advancement in diet. Agreeable to MRCP in AM. 01/17: Currently resting in bed. States pain is 9 out of 10. Plan for MRCP today. Off all vasopressors. 01/18: Afebrile. Plan for to transfer to [facility] once bed available if they accept. Awaiting phone call per GI. Transaminase continued decline. Subjective 01/19: Still requiring pain medication. Hemodynamically stable. Transaminase continued to decline. Afebrile. Objective Vital Signs Date Time Temp Pulse Resp B/P (MAP) Pulse Ox O2 Delivery O2 Flow Rate FiO2 01/19/17 12:00 91 01/19/17 10:12 12 01/19/17 09:35 113/80 (91) 96 01/19/17 08:00 98.3 01/18/17 23:00 21 Intake and Output 9/201/19/17 01/19/17 07:59 15:59 23:59 Intake Total 850 ml Output Total 650 ml Balance 200 ml Result Diagram: 01/19/17 0515 01/19/17 0515 Other Results Microbiology Date/Time Source Procedure Growth Status 01/14/17 11:10 Blood Peripheral Aerobic Blood Culture - Final Klebsiella Pneumoniae Complete 01/14/17 11:10 Anaerobic Blood Culture - Final Klebsiella Pneumoniae Complete 01/14/17 16:00 Urine Catheterized Urine Urine Culture - Final NO GROWTH IN 48 HOURS. Complete Imaging Last Impressions Cholangiopancreatography MRI 01/17/17 0000 Signed Impressions: Service Date/Time: December 17:12 - CONCLUSION: 1. Diffusely abnormal appearance of the liver consistent with cirrhosis. 2. Dilatation of the intrahepatic biliary ducts. The common bile duct below the ankit hepatis appears only minimally distended at 7 mm. There is nonvisualization of the biliary confluence and common hepatic duct. This could be secondary to these areas being scarred down versus a mass in this region. A distinct mass on this MRI is not clearly identified. There is some increased signal which is nonspecific in this region. This should be correlated with the patient's history. 3. Status post splenectomy. 4. Dilatation of the pancreatic duct in the pancreatic body. The pancreatic duct does not appear distended in the pancreatic head region. An underlying mass causing this change cannot be excluded. Given the difficulty in evaluating the biliary system and the pancreatic duct, an ERCP may be helpful. 5. Moderate ascites. 6. Mild right pleural effusion with areas of atelectasis or consolidation at the lung bases bilaterally. Mele Cuba MD Chest X-Ray 01/14/17 1036 Signed Impressions: Service Date/Time: Saturday, January 14, 2017 11:09 - CONCLUSION: No acute disease. You Morales MD FACR Abdomen/Pelvis CT 01/14/17 1036 Signed Impressions: Service Date/Time: Saturday, January 14, 2017 14:53 - CONCLUSION: Moderate ascites is evident intrahepatic air evident. Inhomogeneous contrast enhancement of the liver. Nonobstructing left renal stone There is no free air. You Morales MD FACR Objective Remarks GENERAL: 46-year-old female, critically ill currently resting in bed in no acute distress SKIN: Warm and dry. Well perfused. No rash. Positive jaundice. HEAD: Atraumatic. Normocephalic. EYES: Pupils equal and round about 2 mm bilaterally and reactive. Positive scleral icterus. No injection or drainage. ENT: No nasal bleeding or discharge. Mucous membranes pink and moist. NECK: Trachea midline. No JVD. CARDIOVASCULAR: Tachycardic, RR. S1, S2 no S4. RESPIRATORY: Clear to auscultation. Breath sounds equal bilaterally. GASTROINTESTINAL: Abdomen soft, tender to palpation epigastric region with radiation effect. Voluntary guarding. No rigidity.. MUSCULOSKELETAL: Extremities without significant peripheral edema. No obvious deformities. NEUROLOGICAL: Awake and alert. No obvious cranial nerve deficits. Motor grossly within normal limits. Five out of 5 muscle strength in the arms and legs. Normal speech. PSYCHIATRIC: Appropriate mood and affect; insight and judgment normal. Date of Insertion: Jan 14, 2017 Line: Central Venous Catheter Side: Left Location: Internal, Jugular A/P Assessment and Plan Neuro/Psych: Chronic abdominal pain Hold acetaminophen secondary to elevated transaminases initially Hydromorphone as needed for pain management CV: Severe septic shock Status post 4 L crystalloid and 50 g colloid Norepinephrine currently has been weaned off to maintain MAP greater than 65 Discontinued IV fluids Resp: Nasal cannula to maintain saturations greater than or equal to 92% Incentive spirometry while awake Chest x-ray revealed no acute cardio pulmonary findings GI: History of primary sclerosing cholangitis Elevated transaminases Intrahepatic air - chronic? History biliary stenosis Hypoalbuminemia CT abdomen/pelvis revealed hepatic air. Left renal stone. Moderate ascites. Gastroenterology consultation. Has had ERCPs in the past which indicated PSC. MRCP 01/17 - Diffusely abnormal appearance of the liver consistent with cirrhosis. Dilatation of the intrahepatic biliary ducts. The common bile duct below the ankit hepatis appears only minimally distended at 7 mm. There is nonvisualization of the biliary confluence and common hepatic duct. This could be secondary to these areas being scarred down versus a mass in this region. A distinct mass on this MRI is not clearly identified. There is some increased signal which is nonspecific in this region. This should be correlated with the patient's history. Status post splenectomy. Dilatation of the pancreatic duct in the pancreatic body. The pancreatic duct does not appear distended in the pancreatic head region. An underlying mass causing this change cannot be excluded. Given the difficulty in evaluating the biliary system and the pancreatic duct, an ERCP may be helpful. Moderate ascites. Mild right pleural effusion with areas of atelectasis or consolidation at the lung bases bilaterally. Her GI doctors Dr. Plummer at [facility]. Dr. Limon - RICHAR, does not feel she is a candidate for PTBD, as she has multiple ducts obstructed. Call placed to [facility] [phone]. Dr. Zapata is flight operations engineer- awaiting call back, face sheet needs to be faxed to . IF Surgical intervention indicated she will need transfer to tertiary facility. Evaluated by general surgeon this facility in April and July. They recommended transfer at that time. : History of ureterolithiasis Fuentes catheter only if indicated Endo: Diabetes mellitus Hyperglycemia with a normal anion gap Home medication is insulin glargine 30 units at night and insulin lispro sliding scale as needed. Currently on sliding scale insulin with Accu-Cheks every 6 hours. High protocol. Novulog We'll start on low-dose detemir 7 units twice a day Renal: Monitor creatinine. Accurate I's and O's Monitor urine output Heme: Thrombocytopenia Likely secondary to underlying inflammatory type process. Recheck in AM. Monitor trends. ID: Klebsiella pneumonia bacteremia Currently on piperacillin//tazobactam 01/16 vancomycin and metronidazole. Discontinued Blood cultures 2 01/14 Klebsiella pneumonia Source of infection biliary tract likely Infectious disease consul appreciated MSK: PT evaluate and treat FEN: Hypopotassemia Hypophosphatemia Follow BMP in a.m. Electrolyte protocol initiated. Access -Left IJ CVL day 6 Prophylaxis - GI - pantoprazole - DVT - SCDs, heparin Level II follow-up John Marshall MD Jan 19, 2017 12:24
--- NOTE | 2017-01-19 12:48 | HHI.IDPN ---
Subjective Subjective Remarks pt feels better afebrile tolerates ab ok She is growing Citrobacter and Klebsiella, same organisms she grew in July Antibiotics derrick Past Medical History PBS Allergies: Coded Allergies: MRI PRECAUTION (Verified Allergy, Severe, NAUSEA; PER PATIENT IT IS A GADOLINIUM ALLERGY KMD 11/25/12, 09/04/16) gadobenic acid (Unverified Allergy, Severe, BREATHING PROBLEMS, N/V,CHILLS , 01/01/17) gadodiamide (Unverified Allergy, Severe, BREATHING PROBLEMS, N/V,CHILLS, ) gadoteridol (Unverified Allergy, Severe, BREATHING PROBLEMS, N/V,CHILLS, ) ketorolac (Unverified Allergy, Severe, Shortness of Breath, 01/01/17) morphine (Unverified Allergy, Severe, BREATHING PROBLEMS, 01/01/17) Objective . Vital Signs Date Time Temp Pulse Resp B/P (MAP) Pulse Ox O2 Delivery O2 Flow Rate FiO2 01/19/17 12:00 91 01/19/17 11:00 87 01/19/17 10:12 12 01/19/17 10:00 91 01/19/17 09:35 99 20 113/80 (91) 96 01/19/17 09:35 99 01/19/17 09:01 96 16 114/67 (83) 94 01/19/17 09:01 96 01/19/17 09:00 92 01/19/17 09:00 92 11 93 01/19/17 08:46 109 01/19/17 08:46 109 21 132/89 (103) 93 01/19/17 08:01 95 01/19/17 08:00 87 01/19/17 08:00 98.3 01/19/17 08:00 78 01/19/17 08:00 87 12 01/19/17 06:00 102 01/19/17 04:00 95 01/19/17 04:00 98.5 95 21 119/88 (98) 96 01/19/17 02:00 89 01/19/17 00:00 98.3 91 12 97/64 (75) 92 01/19/17 00:00 91 01/18/17 23:00 93 21 01/18/17 22:00 105 01/18/17 20:00 104 01/18/17 20:00 98.1 104 15 92/59 (70) 91 01/18/17 17:00 119 19 90/65 (73) 92 01/18/17 16:01 133 26 150/93 (112) 92 01/18/17 16:00 97 26 93 01/18/17 15:00 128 30 126/94 (105) 91 01/18/17 15:00 99 22 126/94 (105) 92 01/18/17 14:00 100 24 128/82 (97) 92 01/18/17 13:00 91 12 98/70 (79) 93 . Laboratory Tests Test 01/18/17 04:30 01/19/17 05:15 White Blood Count 7.2 TH/MM3 8.8 TH/MM3 Red Blood Count 4.11 MIL/MM3 3.92 MIL/MM3 Hemoglobin 11.2 GM/DL 10.9 GM/DL Hematocrit 35.9 % 33.4 % Mean Corpuscular Volume 87.3 FL 85.3 FL Mean Corpuscular Hemoglobin 27.1 PG 27.7 PG Mean Corpuscular Hemoglobin Concent 31.1 % 32.5 % Red Cell Distribution Width 17.3 % 17.6 % Platelet Count 114 TH/MM3 123 TH/MM3 Mean Platelet Volume 11.8 FL 10.8 FL CBC Comment AUTO DIFF AUTO DIFF Differential Total Cells Counted 100 100 Neutrophils % (Manual) 57 % 78 % Band Neutrophils % 9 % 3 % Lymphocytes % 7 % 9 % Monocytes % 24 % 6 % Eosinophils % 3 % 3 % Neutrophils # (Manual) 4.8 TH/MM3 7.2 TH/MM3 Differential Comment FINAL DIFF MANUAL FINAL DIFF MANUAL Platelet Estimate LOW LOW Platelet Morphology Comment ENLARGED ENLARGED Target Cells 2+ 1+ [place] Bodies PRESENT PRESENT Myelocytes 1 % Laboratory Tests Test 01/17/17 19:32 01/18/17 04:30 01/19/17 05:15 Potassium Level 3.9 MEQ/L 3.6 MEQ/L 3.5 MEQ/L Blood Urea Nitrogen 7 MG/DL 4 MG/DL Creatinine 0.21 MG/DL 0.29 MG/DL Random Glucose 206 MG/DL 155 MG/DL Total Protein 4.9 GM/DL 4.6 GM/DL Albumin 1.5 GM/DL 1.4 GM/DL Calcium Level 7.5 MG/DL 7.3 MG/DL Phosphorus Level 1.0 MG/DL 1.0 MG/DL Magnesium Level 1.7 MG/DL 1.9 MG/DL Alkaline Phosphatase 1330 U/L 1454 U/L Aspartate Amino Transf (AST/SGOT) 130 U/L 123 U/L Alanine Aminotransferase (ALT/SGPT) 123 U/L 105 U/L Total Bilirubin 5.4 MG/DL 5.0 MG/DL Sodium Level 142 MEQ/L 139 MEQ/L Chloride Level 108 MEQ/L 106 MEQ/L Carbon Dioxide Level 24.0 MEQ/L 26.5 MEQ/L Anion Gap 10 MEQ/L 7 MEQ/L Estimat Glomerular Filtration Rate 361 ML/MIN 249 ML/MIN Protein Corrected Calcium 8.7 MG/DL Imaging Last Impressions Cholangiopancreatography MRI 01/17/17 0000 Signed Impressions: Service Date/Time: December 17:12 - CONCLUSION: 1. Diffusely abnormal appearance of the liver consistent with cirrhosis. 2. Dilatation of the intrahepatic biliary ducts. The common bile duct below the ankit hepatis appears only minimally distended at 7 mm. There is nonvisualization of the biliary confluence and common hepatic duct. This could be secondary to these areas being scarred down versus a mass in this region. A distinct mass on this MRI is not clearly identified. There is some increased signal which is nonspecific in this region. This should be correlated with the patient's history. 3. Status post splenectomy. 4. Dilatation of the pancreatic duct in the pancreatic body. The pancreatic duct does not appear distended in the pancreatic head region. An underlying mass causing this change cannot be excluded. Given the difficulty in evaluating the biliary system and the pancreatic duct, an ERCP may be helpful. 5. Moderate ascites. 6. Mild right pleural effusion with areas of atelectasis or consolidation at the lung bases bilaterally. Mele Cuba MD Chest X-Ray 01/14/17 1036 Signed Impressions: Service Date/Time: Saturday, January 14, 2017 11:09 - CONCLUSION: No acute disease. You Morales MD FACR Abdomen/Pelvis CT 01/14/17 1036 Signed Impressions: Service Date/Time: Saturday, January 14, 2017 14:53 - CONCLUSION: Moderate ascites is evident intrahepatic air evident. Inhomogeneous contrast enhancement of the liver. Nonobstructing left renal stone There is no free air. You Morales MD FACR Physical Exam CONSTITUTIONAL/GENERAL: This is a thin chronically ill appearing patient, in no apparent distress. SKIN: + mild jaundice, rashes, or lesions. . Skin temperature appropriate. Not diaphoretic. HEAD: Atraumatic. Normocephalic. EYES: Pupils equal and round and reactive. Extraocular motions intact. mild scleral icterus. No injection or drainage. Fundi not examined. ENT: Hearing grossly normal. Nose without bleeding or purulent drainage. Oral mucosae without visible erythema, exudates, masses, or lesions. Edentulous NECK: Trachea midline. Supple, nontender. CARDIOVASCULAR: Regular rate and rhythm without murmurs, gallops, or rubs. No JVD. Peripheral pulses symmetric. RESPIRATORY/CHEST: Symmetric, unlabored respirations. Clear to auscultation. Breath sounds equal bilaterally. No wheezes, rales, or rhonchi. GASTROINTESTINAL: Abdomen soft, marked RUQ tenderness w/o guarding or rebound , markedly distended. No guarding. Bowel sounds present. GENITOURINARY: Without palpable bladder distension. MUSCULOSKELETAL: Extremities without clubbing, cyanosis, or edema. No joint tenderness or effusion noted. No calf tenderness. No mottling or clubbing. LYMPHATICS: No palpable cervical or supraclavicular adenopathy. NEUROLOGICAL: Awake and alert. Motor and sensory grossly within normal limits. Follows commands. Normal speech. Moves all extremities. PSYCHIATRIC: No obvious anxiety/depression. no apparent hallucinations or other psychotic thought process. Assessment & Plan Remarks PSC Cholangitis Kleb pneumo, citrobacter bacteremia, sepsis, recurrent - source is biliary - she ws here in July with the same problem MRCP with cirrhosis. nonvisualization of the biliary confluence and common hepatic duct. ? mass i Moderate ascites Source is likely billiary, pt probably has another episode of cholangitis - ERCP was recommended, but IR found her not a good candidate for PTBD, as she has multiple ducts obstructed. - she is awiting [facility]fer to [facility] UTI cont zosyn monitor clinically agree with plan to [facility]fer pt to [facility] dw Christiane Gardner MD Jan 19, 2017 12:48
[2017-01-19] MEDS: HYDROmorphone HCL PF 1 MG/ML VIAL IV PUSH PRN ×3 (14:43→23:20)
[2017-01-19] MEDS ORDERED: GLUCAGON 1 MG/ML VIAL OTHER PRN (15:30)
[2017-01-19] MEDS ORDERED: LACTULOSE SYRUP 20 GM/30 ML CUP PO PRN (15:30)
[2017-01-19] MEDS ORDERED: ONDANSETRON HCL 4 MG/2 ML VIAL IV PRN (15:30)
[2017-01-19] MEDS ORDERED: SENNOSIDES 8.6 MG TAB PO PRN (15:30)
[2017-01-19] MEDS ORDERED: MAGNESIUM HYDROXIDE SUSP 30 ML CUP PO PRN (15:30)
[2017-01-19] MEDS ORDERED: RESP: ALBUTEROL 2.5 MG/3 ML NEB (PRN) INH (15:30)
[2017-01-19] MEDS ORDERED: SODIUM CHLORIDE 0.9% FLUSH 10 ML FLUSH IV FLUSH PRN (15:30)
[2017-01-19] MEDS ORDERED: DEXTROSE 50% IN WATER 50 ML VIAL(D50) IV PRN (15:30)
[2017-01-19] MEDS ORDERED: BISACODYL 10 MG SUPP RECTAL PRN (15:30)
[2017-01-19] MEDS ORDERED: PANT40P IV (15:35)
[2017-01-19] MEDS ORDERED: PIPE4INJ IV (15:35)
[2017-01-19] MEDS ORDERED: NOVORP2 SQ (15:35)
--- NOTE | 2017-01-19 15:37 | HHI.DS ---
Discharge Summary Admission Date Jan 14, 2017 at 16:45 Admitting Diagnosis septic shock, UTI, ascites, rule out cholangitis (1) Septic shock ICD Code: A41.9 - Sepsis, unspecified organism; R65.21 - Severe sepsis with septic shock Diagnosis: Principal Status: Acute (2) Sclerosing cholangitis ICD Code: K83.0 - Sclerosing cholangitis Diagnosis: Principal Status: Chronic (3) Calculus of kidney ICD Code: N20.0 - Calculus of kidney Diagnosis: Secondary Status: Chronic (4) Non-Hodgkin lymphoma ICD Code: C85.90 - Non-Hodgkin lymphoma Diagnosis: Secondary Status: Acute (5) Diabetes mellitus ICD Code: E11.9 - Diabetes mellitus Diagnosis: Principal Status: Acute (6) Ascites ICD Code: R18.8 - Other ascites Diagnosis: Principal Status: Acute (7) Elevated LFTs ICD Code: R94.5 - Abnormal results of liver function studies Diagnosis: Principal Status: Acute (8) hepatic cirrhosis/fibrosis/chronic hepatitis Diagnosis: Principal Status: Acute Brief History This is a 46-year-old female. Date of admission 01/06/2017. Past medical history includes PSC - follows Dr. Elian Moncada [facility], biliary stenosis/strictures, non-Hodgkin's lymphomas completed chemotherapy 2005, IVs mellitus, chronic abdominal pain, urolithiasis and history of MRSA. Back in July, patient had a liver biopsy revealed severe chronic hepatitis, bridging cirrhosis and grade 2/4,'s stage 3/4 biliary stasis, fatty liver. No signs of PBC or PSC. Patient presented as an years piece indicative of PSC. Transitions with elevated during hospitalization patient was on vasopressors for short period time. Patient be hospitalized in August at [facility]. Patient still has her gallbladder. Patient presented to [place] with a 2-3 day history generalized abdominal pain associated with nausea. Resume upon presentation patient was normotensive however became hypotensive. CT abdomen/pelvis revealed moderate ascites. Intrahepatic gas, similar to 06/05, nonobstructing left renal stone. Patient received 4 L normal saline and peripheral norepinephrine to maintain map. Patient is mentating appropriately present time. Received piperacillin/tazobactam P blood cultures sent 7 drawn. Lactate 1.8. CBC/BMP: 01/19/17 0515 01/19/17 0515 Significant Findings Laboratory Tests Test 01/16/17 23:30 01/17/17 06:30 01/17/17 19:32 01/18/17 04:30 Potassium Level 3.0 MEQ/L (3.5-5.1) 3.2 MEQ/L (3.5-5.1) Phosphorus Level 1.8 MG/DL (2.5-4.9) 1.1 MG/DL (2.5-4.9) 1.0 MG/DL (2.5-4.9) Red Cell Distribution Width 17.3 % (11.6-17.2) 17.3 % (11.6-17.2) Platelet Count 98 TH/MM3 (150-450) 114 TH/MM3 (150-450) Mean Platelet Volume 12.5 FL (7.0-11.0) 11.8 FL (7.0-11.0) Neutrophils % (Manual) 76 % (16-70) Lymphocytes % 8 % (9-44) 7 % (9-44) Monocytes % 13 % (0-8) 24 % (0-8) Toxic Vacuolation PRESENT (NONE SEEN) Platelet Estimate LOW (NORMAL) LOW (NORMAL) Platelet Morphology Comment ENLARGED (NORMAL) ENLARGED (NORMAL) Target Cells 2+ (NORMAL) 2+ (NORMAL) Blood Urea Nitrogen 5 MG/DL (7-18) Creatinine 0.34 MG/DL (0.50-1.00) 0.21 MG/DL (0.50-1.00) Random Glucose 268 MG/DL (74-106) 206 MG/DL (74-106) Total Protein 5.1 GM/DL (6.4-8.2) 4.9 GM/DL (6.4-8.2) Albumin 1.7 GM/DL (3.4-5.0) 1.5 GM/DL (3.4-5.0) Calcium Level 8.0 MG/DL (8.5-10.1) 7.5 MG/DL (8.5-10.1) Alkaline Phosphatase 1196 U/L (45-117) 1330 U/L (45-117) Aspartate Amino Transf (AST/SGOT) 187 U/L (15-37) 130 U/L (15-37) Alanine Aminotransferase (ALT/SGPT) 160 U/L (10-53) 123 U/L (10-53) Total Bilirubin 6.0 MG/DL (0.2-1.0) 5.4 MG/DL (0.2-1.0) Hemoglobin 11.2 GM/DL (11.6-15.3) Mean Corpuscular Hemoglobin Concent 31.1 % (32.0-36.0) Band Neutrophils % 9 % (0-6) Chloride Level 108 MEQ/L (98-107) Test 01/19/17 05:15 Red Blood Count 3.92 MIL/MM3 (4.00-5.30) Hemoglobin 10.9 GM/DL (11.6-15.3) Hematocrit 33.4 % (35.0-46.0) Red Cell Distribution Width 17.6 % (11.6-17.2) Platelet Count 123 TH/MM3 (150-450) Neutrophils % (Manual) 78 % (16-70) Myelocytes 1 % (0-0) Platelet Estimate LOW (NORMAL) Platelet Morphology Comment ENLARGED (NORMAL) Target Cells 1+ (NORMAL) Blood Urea Nitrogen 4 MG/DL (7-18) Creatinine 0.29 MG/DL (0.50-1.00) Random Glucose 155 MG/DL (74-106) Total Protein 4.6 GM/DL (6.4-8.2) Albumin 1.4 GM/DL (3.4-5.0) Calcium Level 7.3 MG/DL (8.5-10.1) Phosphorus Level 1.0 MG/DL (2.5-4.9) Alkaline Phosphatase 1454 U/L (45-117) Aspartate Amino Transf (AST/SGOT) 123 U/L (15-37) Alanine Aminotransferase (ALT/SGPT) 105 U/L (10-53) Total Bilirubin 5.0 MG/DL (0.2-1.0) Imaging Last Impressions Cholangiopancreatography MRI 01/17/17 0000 Signed Impressions: Service Date/Time: December 17:12 - CONCLUSION: 1. Diffusely abnormal appearance of the liver consistent with cirrhosis. 2. Dilatation of the intrahepatic biliary ducts. The common bile duct below the ankit hepatis appears only minimally distended at 7 mm. There is nonvisualization of the biliary confluence and common hepatic duct. This could be secondary to these areas being scarred down versus a mass in this region. A distinct mass on this MRI is not clearly identified. There is some increased signal which is nonspecific in this region. This should be correlated with the patient's history. 3. Status post splenectomy. 4. Dilatation of the pancreatic duct in the pancreatic body. The pancreatic duct does not appear distended in the pancreatic head region. An underlying mass causing this change cannot be excluded. Given the difficulty in evaluating the biliary system and the pancreatic duct, an ERCP may be helpful. 5. Moderate ascites. 6. Mild right pleural effusion with areas of atelectasis or consolidation at the lung bases bilaterally. Mele Cuba MD Chest X-Ray 01/14/17 1036 Signed Impressions: Service Date/Time: Saturday, January 14, 2017 11:09 - CONCLUSION: No acute disease. You Morales MD FACR Abdomen/Pelvis CT 01/14/17 1036 Signed Impressions: Service Date/Time: Saturday, January 14, 2017 14:53 - CONCLUSION: Moderate ascites is evident intrahepatic air evident. Inhomogeneous contrast enhancement of the liver. Nonobstructing left renal stone There is no free air. You Morales MD FACR PE at Discharge GENERAL: 46-year-old female, critically ill currently resting in bed in no acute distress SKIN: Warm and dry. Well perfused. No rash. Positive jaundice. HEAD: Atraumatic. Normocephalic. EYES: Pupils equal and round about 2 mm bilaterally and reactive. Positive scleral icterus. No injection or drainage. ENT: No nasal bleeding or discharge. Mucous membranes pink and moist. NECK: Trachea midline. No JVD. CARDIOVASCULAR: Tachycardic, RR. S1, S2 no S4. RESPIRATORY: Clear to auscultation. Breath sounds equal bilaterally. GASTROINTESTINAL: Abdomen soft, tender to palpation epigastric region with radiation effect. Voluntary guarding. No rigidity.. MUSCULOSKELETAL: Extremities without significant peripheral edema. No obvious deformities. NEUROLOGICAL: Awake and alert. No obvious cranial nerve deficits. Motor grossly within normal limits. Five out of 5 muscle strength in the arms and legs. Normal speech. PSYCHIATRIC: Appropriate mood and affect; insight and judgment normal. Date of Insertion: Jan 14, 2017 Line: Central Venous Catheter Side: Left Location: Internal, Jugular Transfer Summary Neuro/Psych: Chronic abdominal pain Hold acetaminophen secondary to elevated transaminases initially Hydromorphone as needed for pain management CV: Severe septic shock Status post 4 L crystalloid and 50 g colloid Norepinephrine currently has been weaned off to maintain MAP greater than 65 Discontinued IV fluids Resp: Nasal cannula to maintain saturations greater than or equal to 92% Incentive spirometry while awake Chest x-ray revealed no acute cardio pulmonary findings GI: History of primary sclerosing cholangitis Elevated transaminases Intrahepatic air - chronic? History biliary stenosis Hypoalbuminemia CT abdomen/pelvis revealed hepatic air. Left renal stone. Moderate ascites. Gastroenterology consultation. Has had ERCPs in the past which indicated PSC. MRCP 01/17 - Diffusely abnormal appearance of the liver consistent with cirrhosis. Dilatation of the intrahepatic biliary ducts. The common bile duct below the ankit hepatis appears only minimally distended at 7 mm. There is nonvisualization of the biliary confluence and common hepatic duct. This could be secondary to these areas being scarred down versus a mass in this region. A distinct mass on this MRI is not clearly identified. There is some increased signal which is nonspecific in this region. This should be correlated with the patient's history. Status post splenectomy. Dilatation of the pancreatic duct in the pancreatic body. The pancreatic duct does not appear distended in the pancreatic head region. An underlying mass causing this change cannot be excluded. Given the difficulty in evaluating the biliary system and the pancreatic duct, an ERCP may be helpful. Moderate ascites. Mild right pleural effusion with areas of atelectasis or consolidation at the lung bases bilaterally. Her GI doctors Dr. Plummer at [facility]. Dr. Limon - RICHAR, does not feel she is a candidate for PTBD, as she has multiple ducts obstructed. Call placed to [facility] . Dr. Zapata is carbon paper coating machine setter- awaiting call back, face sheet needs to be faxed to . Discussed with Dr Zapata on recorded line for [facility]. Agree to except patient to hospital service in elective transfer. IF Surgical intervention indicated she will need transfer to tertiary facility. Evaluated by general surgeon this facility in April and July. They recommended transfer at that time. : History of ureterolithiasis Fuentes catheter only if indicated Endo: Diabetes mellitus Hyperglycemia with a normal anion gap Home medication is insulin glargine 30 units at night and insulin lispro sliding scale as needed. Currently on sliding scale insulin with Accu-Cheks every 6 hours. High protocol. Novulog We'll start on low-dose detemir 7 units twice a day Renal: Monitor creatinine. Accurate I's and O's Monitor urine output Heme: Thrombocytopenia Likely secondary to underlying inflammatory type process. Recheck in AM. Monitor trends. ID: Klebsiella pneumonia bacteremia Currently on piperacillin//tazobactam 01/16 vancomycin and metronidazole. Discontinued Blood cultures 2 01/14 Klebsiella pneumonia Source of infection biliary tract likely Infectious disease consul appreciated MSK: PT evaluate and treat FEN: Hypopotassemia Hypophosphatemia Follow BMP in a.m. Electrolyte protocol initiated. Access -Left IJ CVL day 6 Prophylaxis - GI - pantoprazole - DVT - SCDs, heparin Discussed with Dr Zapata on recorded line for [facility]. Agree to except patient to hospital service in elective transfer. Hospital Course This is a 46-year-old female. Date of admission 01/06/2017. Past medical history includes PSC - follows Dr. Elian Moncada [facility], biliary stenosis/strictures, non-Hodgkin's lymphomas completed chemotherapy 2005, IVs mellitus, chronic abdominal pain, urolithiasis and history of MRSA. Back in July, patient had a liver biopsy revealed severe chronic hepatitis, bridging cirrhosis and grade 2/4,'s stage 3/4 biliary stasis, fatty liver. No signs of PBC or PSC. Patient presented as an years piece indicative of PSC. Transitions with elevated during hospitalization patient was on vasopressors for short period time. Patient be hospitalized in August at [facility]. Patient still has her gallbladder. Patient presented to [place] with a 2-3 day history generalized abdominal pain associated with nausea. Resume upon presentation patient was normotensive however became hypotensive. CT abdomen/pelvis revealed moderate ascites. Intrahepatic gas, similar to 06/05, nonobstructing left renal stone. Patient received 4 L normal saline and peripheral norepinephrine to maintain map. Patient is mentating appropriately present time. Received piperacillin/tazobactam P blood cultures sent 7 drawn. Lactate 1.8. 01/15: Blood cultures positive for gram-negative rods. Continues to have abdominal pain requiring hydromorphone. Tolerating clear ice chips. Requesting discontinuation of vancomycin. 01/16: Currently resting in bed in no acute distress. Receiving IV hydromorphone for pain management. Requesting advancement in diet. Agreeable to MRCP in AM. 01/17: Currently resting in bed. States pain is 9 out of 10. Plan for MRCP today. Off all vasopressors. 01/18: Afebrile. Plan for to transfer to [facility] once bed available if they accept. Awaiting phone call per GI. Transaminase continued decline. Subjective 01/19: Still requiring pain medication. Hemodynamically stable. Transaminase continued to decline. Afebrile. Pt Condition on Discharge: Stable Discharge Disposition: Trnsfr to Other Facility Discharge Instructions DIET: Follow Instructions for: Full Liquid Diet Activities you can perform: Regular-No Restrictions John Marshall MD Jan 19, 2017 15:37
--- NOTE | 2017-01-19 16:27 | HHI.GIFU ---
Subjective Remarks Patient is resting in bed, still with abd pain, some nausea but no vomiting. (Rita Burgos PROCESS AUTOMATION ENGINEER) Objective Vitals I&O Vital Signs Date Time Temp Pulse Resp B/P (MAP) Pulse Ox O2 Delivery O2 Flow Rate FiO2 01/19/17 15:19 14 01/19/17 12:00 91 01/19/17 11:00 87 01/19/17 10:12 12 01/19/17 10:00 91 01/19/17 09:35 99 20 113/80 (91) 96 01/19/17 09:35 99 01/19/17 09:01 96 16 114/67 (83) 94 01/19/17 09:01 96 01/19/17 09:00 92 01/19/17 09:00 92 11 93 01/19/17 08:46 109 01/19/17 08:46 109 21 132/89 (103) 93 01/19/17 08:01 95 01/19/17 08:00 87 01/19/17 08:00 98.3 01/19/17 08:00 78 01/19/17 08:00 87 12 01/19/17 06:00 102 01/19/17 04:00 95 01/19/17 04:00 98.5 95 21 119/88 (98) 96 01/19/17 02:00 89 01/19/17 00:00 98.3 91 12 97/64 (75) 92 01/19/17 00:00 91 01/18/17 23:00 93 21 01/18/17 22:00 105 01/18/17 20:00 104 01/18/17 20:00 98.1 104 15 92/59 (70) 91 01/18/17 17:00 119 19 90/65 (73) 92 I/O 01/18/17 01/18/17 01/18/17 01/19/17 01/19/17 01/19/17 06:59 14:59 22:59 06:59 14:59 22:59 Intake Total 0 ml 1000 ml 1270 ml 850 ml 1000 ml Output Total 350 ml 850 ml 650 ml Balance -350 ml 150 ml 1270 ml 200 ml 1000 ml Intake Oral 0 ml 720 ml 850 ml IV Total 1000 ml 550 ml 1000 ml Output Urine Total 350 ml 850 ml 650 ml # Bowel Movements 0 0 0 1 Laboratory Laboratory Tests Test 01/19/17 05:15 White Blood Count 8.8 Red Blood Count 3.92 Hemoglobin 10.9 Hematocrit 33.4 Mean Corpuscular Volume 85.3 Mean Corpuscular Hemoglobin 27.7 Mean Corpuscular Hemoglobin Concent 32.5 Red Cell Distribution Width 17.6 Platelet Count 123 Mean Platelet Volume 10.8 CBC Comment AUTO DIFF Differential Total Cells Counted 100 Neutrophils % (Manual) 78 Band Neutrophils % 3 Lymphocytes % 9 Monocytes % 6 Eosinophils % 3 Neutrophils # (Manual) 7.2 Myelocytes 1 Differential Comment FINAL DIFF MANUAL Platelet Estimate LOW Platelet Morphology Comment ENLARGED Target Cells 1+ Kelly-Kl[place]ike Bodies PRESENT Blood Urea Nitrogen 4 Creatinine 0.29 Random Glucose 155 Total Protein 4.6 Albumin 1.4 Calcium Level 7.3 Phosphorus Level 1.0 Magnesium Level 1.9 Alkaline Phosphatase 1454 Aspartate Amino Transf (AST/SGOT) 123 Alanine Aminotransferase (ALT/SGPT) 105 Total Bilirubin 5.0 Sodium Level 139 Potassium Level 3.5 Chloride Level 106 Carbon Dioxide Level 26.5 Anion Gap 7 Estimat Glomerular Filtration Rate 249 Protein Corrected Calcium 8.7 Date/Time Source Procedure Growth Status 01/14/17 11:10 Blood Peripheral Aerobic Blood Culture - Final Klebsiella Pneumoniae Complete 01/14/17 11:10 Anaerobic Blood Culture - Final Klebsiella Pneumoniae Complete 01/14/17 16:00 Urine Catheterized Urine Urine Culture - Final NO GROWTH IN 48 HOURS. Complete Imaging Last Impressions Cholangiopancreatography MRI 01/17/17 0000 Signed Impressions: Service Date/Time: December 17:12 - CONCLUSION: 1. Diffusely abnormal appearance of the liver consistent with cirrhosis. 2. Dilatation of the intrahepatic biliary ducts. The common bile duct below the ankit hepatis appears only minimally distended at 7 mm. There is nonvisualization of the biliary confluence and common hepatic duct. This could be secondary to these areas being scarred down versus a mass in this region. A distinct mass on this MRI is not clearly identified. There is some increased signal which is nonspecific in this region. This should be correlated with the patient's history. 3. Status post splenectomy. 4. Dilatation of the pancreatic duct in the pancreatic body. The pancreatic duct does not appear distended in the pancreatic head region. An underlying mass causing this change cannot be excluded. Given the difficulty in evaluating the biliary system and the pancreatic duct, an ERCP may be helpful. 5. Moderate ascites. 6. Mild right pleural effusion with areas of atelectasis or consolidation at the lung bases bilaterally. Mele Cuba MD Chest X-Ray 01/14/17 1036 Signed Impressions: Service Date/Time: Saturday, January 14, 2017 11:09 - CONCLUSION: No acute disease. You Morales MD FACR Abdomen/Pelvis CT 01/14/17 1036 Signed Impressions: Service Date/Time: Saturday, January 14, 2017 14:53 - CONCLUSION: Moderate ascites is evident intrahepatic air evident. Inhomogeneous contrast enhancement of the liver. Nonobstructing left renal stone There is no free air. You Morales MD FACR Physical Exam HEENT: Normocephalic; atraumatic;+ jaundice. CHEST: CTA CARDIAC: RRR. ABDOMEN: Soft,mildly bloated, mild epigastric/ruq tenderness; hepatosplenomegaly; bowel sounds are present in all four quadrants. EXTREMITIES: No clubbing, cyanosis, or edema. SKIN: Normal; no rash;+ jaundice. ORNAMENTAL IRONWORKER: No focal deficits; alert and oriented times three. (Rita Burgos) Assessment and Plan Plan ASSESSMENT: - Recurrent cholangitis, biliary strictures, obstruction with abdominal pain. Presented to ER with 3 day hx of epigastric/ruq pain and fever of 104.0. CT Scan abdomen and pelvis with IV contrast (01/14/17)----> Moderate ascites is evident intrahepatic air evident, inhomogeneous contrast enhancement of the liver, nonobstructing left renal stone, there is no free air. MRCP without contrast (01/17/17)----> Diffusely abnormal appearance of the liver consistent with cirrhosis. Dilatation of the intrahepatic biliary ducts. The CBD below the ankit hepatis appears only minimally distended at 7 mm. There is nonvisualization of the biliary confluence and common hepatic duct. this could be secondary to these areas being scarred down versus a mass in this region. A distinct mass on this MRI is not clearly identified. There is some increased signal which is nonspecific in this region. This should be correlated with the patient's history. S/P splenectomy. Dilatation of the pancreatic duct in the pancreatic body. The pancreatic duct does not appear distended in the pancreatic head region. An underlying mass causing this change cannot be excluded. Given the difficulty in evaluating the biliary system and the pancreatic duct, an ERCP may be helpful. Moderate ascites. Mild right pleural effusion with areas of atelectasis or consolidation at the lung bases bilaterally. LFTs remain elevated with T. Bilirubin 6.0, AST 187, ALT 160, Alk Phosph 1196. Blood cx (+) on 01/14 with Klebsiella pneumoniae, citrobacter species. WBC/ fever improving with abx- Zosyn. We have not been able to perform successful ERCP due to anatomy/strictures. Will discuss case with IR, if they do not feel that they have any interventions to offer, will contact Dr. Plummer at [facility] for possible transfer to tertiary ( pt known to him) - Sepsis, Bandemia, Bacteremia, Leukocytosis. Suspect Cholangitis. BCx with Klebseilla pneumoniae, Citrobacter species (01/14) improving on abx. Zosyn. Afebrile. - Liver cirrhosis. 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 Cytoplasmic inclusions suggestive of Alpha 1 Antitrypsin are present as may be observed in cirrhotic livers however it is suggested that serologic studies be performed. The pathological features present in this biopsy material are different from that observed in the liver biopsy of 01/19/14. She is followed by Dr. Plummer at [facility]- she states that they are starting workup for liver transplant evaluation. She was last seen in August of this year. AFP 6.1. - Anemia. No acute blood loss. CBC pending. - Gastroparesis. Dx a few months ago - DM per attending. 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 At one point, she was requiring frequent ERCP with stent exchanges for this, but more recently, she has not been able to have an internal stent placed and has required biliary drains periodically. She was evaluated at [facility] for liver transplant evaluation and states that she underwent ERCP in May of 2015 with them. More recently she has been seen by [facility] (Dr. Plummer) and was last hospitalized in August of this year for cholangitis/sepsis. She did not require any procedures at that time. The patient reports that they are starting the workup for possible liver transplant at [facility]. AFP 6.1. 9-2-17- LFTs trending down, WBC is normalizing, patient is stable PLAN: - Full liquid diet - Cont. Abx- Zosyn - ID following - Monitor labs - Supportive care - Further recommendations to follow based on results of above - IR for possible PTBD, they feel patient is not a candidate,as she has multiple ducts obstructed. - Spoke to Dr. Zapata today who feels it is up to the attending physician to assess for the need for the transfer and initiate the processes. [facility] - PT seen and examined by Dr. Prince and myself and this note is written on his behalf (Rita Burgos) Plan I spoke with GI physicians at [facility] who have accepted the patient for transfer. The ICU physician will call ICU physician here to discuss and arrange the rest of transfer. (Wilfredo Prince MD) Rita Burgos Jan 19, 2017 16:27 Wilfredo Prince MD Jan 19, 2017 16:49
[2017-01-20] VITALS (15 sets, daily range): PULSE 90–135; RESP 16; O2SAT 92–94
[2017-01-20] MEDS: INSULIN NovoLIN REGULAR SUPPLEMENTAL SCALE SQ SCH ×5 (03:00→15:58)
[2017-01-20] MEDS: HYDROmorphone HCL PF 1 MG/ML VIAL IV PUSH PRN ×4 (03:33→15:58)
[2017-01-20] MEDS: PIPERACIL-TAZO 4.5 GM PREMIX 100 ML IV SCH ×3 (03:33→15:58)
[2017-01-20 06:16] LABS: HEMATOCRIT 35.1 % (35.0-46.0); MEAN CELL VOLUME 86.1 FL (80.0-100.0); MEAN CORPUSCULAR HEMOGLOBIN 27.7 PG (27.0-34.0); MEAN CORPUSCULAR HGB CONC 32.2 % (32.0-36.0); PLATELET COUNT 147 TH/MM3 (150-450); RED BLOOD COUNT 4.07 MIL/MM3 (4.00-5.30); RED CELL DISTRIBUTION WIDTH 17.2 % (11.6-17.2); WHITE BLOOD COUNT 10.4 TH/MM3 (4.0-11.0)
[2017-01-20 06:28] LABS: HEMO FLAGS AUTO DIFF
[2017-01-20 06:37] LABS: ANION GAP 7 MEQ/L (5-15); AST (GOT) 151 U/L (15-37); BICARBONATE 27.8 MEQ/L (21.0-32.0); BLOOD UREA NITROGEN 4 MG/DL (7-18); CHLORIDE 104 MEQ/L (98-107); GLOMERULAR FILTRATION RATE 325 ML/MIN (>89); MAGNESIUM 1.7 MG/DL (1.5-2.5); POTASSIUM 3.5 MEQ/L (3.5-5.1); SODIUM (NA) 139 MEQ/L (136-145)
[2017-01-20 06:39] LABS: ALT (GPT) 112 U/L (10-53)
[2017-01-20 06:52] LABS: ALKALINE PHOSPHATASE 1615 U/L (45-117); TOTAL BILIRUBIN ADULT 5.6 MG/DL (0.2-1.0)
--- NOTE | 2017-01-20 07:34 | HHI.PR ---
Subjective Remarks Patient seen and examined this am. Vitals stable and afebrile. Feels well overall. Reports RUQ abdominal pain. Tolerating her diet. Denies CP or SOB. Plan to transfer to [facility], she is aware. Objective Vital Signs Date Time Temp Pulse Resp B/P (MAP) Pulse Ox O2 Delivery O2 Flow Rate FiO2 01/20/17 00:00 95 01/19/17 22:00 95 01/19/17 20:00 107 01/19/17 19:55 93 21 01/19/17 18:00 97 01/19/17 17:00 99 01/19/17 16:00 106 01/19/17 15:19 14 01/19/17 12:00 91 01/19/17 11:00 87 01/19/17 10:12 12 01/19/17 10:00 91 01/19/17 09:35 99 20 113/80 (91) 96 01/19/17 09:35 99 01/19/17 09:01 96 16 114/67 (83) 94 01/19/17 09:01 96 01/19/17 09:00 92 01/19/17 09:00 92 11 93 01/19/17 08:46 109 01/19/17 08:46 109 21 132/89 (103) 93 01/19/17 08:01 95 01/19/17 08:00 87 01/19/17 08:00 98.3 01/19/17 08:00 78 01/19/17 08:00 87 12 I/O 01/19/17 01/19/17 01/19/17 01/20/17 01/20/17 01/20/17 07:00 15:00 23:00 07:00 15:00 23:00 Intake Total 850 ml 1000 ml 960 ml Output Total 650 ml Balance 200 ml 1000 ml 960 ml Intake Oral 850 ml 960 ml IV Total 1000 ml Output Urine Total 650 ml # Voids 1 # Bowel Movements 1 1 Result Diagram: 01/20/17 0535 01/20/17 0535 Imaging Last Impressions Cholangiopancreatography MRI 01/17/17 0000 Signed Impressions: Service Date/Time: December 17:12 - CONCLUSION: 1. Diffusely abnormal appearance of the liver consistent with cirrhosis. 2. Dilatation of the intrahepatic biliary ducts. The common bile duct below the ankit hepatis appears only minimally distended at 7 mm. There is nonvisualization of the biliary confluence and common hepatic duct. This could be secondary to these areas being scarred down versus a mass in this region. A distinct mass on this MRI is not clearly identified. There is some increased signal which is nonspecific in this region. This should be correlated with the patient's history. 3. Status post splenectomy. 4. Dilatation of the pancreatic duct in the pancreatic body. The pancreatic duct does not appear distended in the pancreatic head region. An underlying mass causing this change cannot be excluded. Given the difficulty in evaluating the biliary system and the pancreatic duct, an ERCP may be helpful. 5. Moderate ascites. 6. Mild right pleural effusion with areas of atelectasis or consolidation at the lung bases bilaterally. Mele Cuba MD Chest X-Ray 01/14/17 1036 Signed Impressions: Service Date/Time: Saturday, January 14, 2017 11:09 - CONCLUSION: No acute disease. You Morales MD FACR Abdomen/Pelvis CT 01/14/17 1036 Signed Impressions: Service Date/Time: Saturday, January 14, 2017 14:53 - CONCLUSION: Moderate ascites is evident intrahepatic air evident. Inhomogeneous contrast enhancement of the liver. Nonobstructing left renal stone There is no free air. You Morales MD FACR Objective Remarks GENERAL: nad SKIN: Warm and dry. Jaundice HEAD: Normocephalic. EYES: + scleral icterus. No injection or drainage. NECK: Supple, trachea midline. No JVD or lymphadenopathy. CARDIOVASCULAR: Regular rate and rhythm without murmurs, gallops, or rubs. RESPIRATORY: Breath sounds equal bilaterally. No accessory muscle use. GASTROINTESTINAL: Abdomen soft, epigastric and RUQ tenderness. Hepatomegaly. MUSCULOSKELETAL: No cyanosis, or edema. BACK: Nontender without obvious deformity. A/P Problem List: (1) recurrent sepsis/cholangitis, with Klebsiella and Citrobacter bacteremias during this hospitalization Status: Acute (2) biliary strictures/obstruction, with sclerosing cholangitis Status: Acute (3) DM (diabetes mellitus) ICD Code: E11.9 - Type 2 diabetes mellitus without complications Status: Chronic (4) Elevated LFTs ICD Code: R94.5 - Abnormal results of liver function studies Status: Acute (5) UTI (urinary tract infection) ICD Code: N39.0 - UTI (urinary tract infection) Status: Acute Assessment and Plan This is a 46-year-old female with recurrent cholangitis, biliary strictures with obstruction who presented to [place] ER on January 06 found to be in septic shock. GI and I infectious disease were consulted. The patient was initially managed by critical care and care was transferred to hospitalist on 01/19. Per Dr. farah on January 19 he has discussed the case with Dr. Zapata at [facility] who agreed to accept the patient. Septic cholangitis, sclerosing cholangitis - Blood cultures positive Klebsiella pneumonia, Citrobacter. Blood cultures in July for the same. She is status post aggressive IV fluids and pressors. She status post MRCP with cirrhosis. ERCP was recommended but patient was do not a good candidate for PTBD due to multiple obstructed ducts. Plan is for the patient to be transferred to . - Hold acetaminophen, hydromorphone as needed for pain - Imaging MRCP 01/17 - "Diffusely abnormal appearance of the liver consistent with cirrhosis. Dilatation of the intrahepatic biliary ducts. The common bile duct below the ankit hepatis appears only minimally distended at 7 mm. There is nonvisualization of the biliary confluence and common hepatic duct. This could be secondary to these areas being scarred down versus a mass in this region. A distinct mass on this MRI is not clearly identified. There is some increased signal which is nonspecific in this region. This should be correlated with the patient's history. Status post splenectomy. Dilatation of the pancreatic duct in the pancreatic body. The pancreatic duct does not appear distended in the pancreatic head region. An underlying mass causing this change cannot be excluded. Given the difficulty in evaluating the biliary system and the pancreatic duct, an ERCP may be helpful. Moderate ascites." - Consults GI, she is known to Dr. Elian whitmore ID Dr. Jackson following, the patient is currently on Zosyn. Abx hx: vanc & flagyl d/c Non-Hodgkin's lymphoma Diabetes - Continue sliding scale - Levemir 7 units twice a day Ascites Chronic hepatitis - Trending LFTs UTI - UA is suggestive of UTI, urine culture shows no growth in 48 hours Discharge Planning Transfer to medical floor Plan to transfer to [facility], discussed with Dr. Marshall & patients nurse Paper work has been submitted, case management to assist Problem Qualifiers (1) UTI (urinary tract infection): Qualified Codes: N10 - Acute pyelonephritis Kathleen Freeman MD Jan 20, 2017 07:34
[2017-01-20] MEDS: SODIUM CHLORIDE 0.9% FLUSH 10 ML FLUSH IV FLUSH SCH (08:06)
[2017-01-20] MEDS: HEPARIN SODIUM - SQ 10,000 UNITS/ML VIAL SQ SCH (08:06)
[2017-01-20] MEDS: DOCUSATE SODIUM 50 MG/SENNA 8.6 MG TAB PO SCH ×2 (08:07→08:19)
[2017-01-20 08:20] LABS: BANDS 3 % (0-6); EOSINOPHILS 1 % (0-4); MYELOCYTES 1 % (0-0); NEUTROPHIL # MANUAL DIFF 8.2 TH/MM3 (1.8-7.7); POLYS (SEG NEUTROPHILS) 75 % (16-70); WBC DIFF SAMPLE 100
[2017-01-20 08:22] LABS: HOWELL-JOLLY BODIES PRESENT (NONE SEEN); PLATELET ESTIMATE SMEAR LOW (NORMAL); PLATELET MORPHOLOGY ENLARGED (NORMAL); SCAN/DIFF FINAL DIFF MANUAL; TARGET CELLS 2+ (NORMAL)
[2017-01-20] MEDS ORDERED: PANTOPRAZOLE SODIUM 40 MG VIAL IV SCH (09:00)
--- NOTE | 2017-01-20 10:40 | HHI.GIFU ---
Subjective Remarks Lying in bed in no apparent distress. Continues to have abdominal pain at right side with radiation to back. Denies nausea or vomiting. Tolerating diet Objective Vitals I&O Vital Signs Date Time Temp Pulse Resp B/P (MAP) Pulse Ox O2 Delivery O2 Flow Rate FiO2 01/20/17 08:37 16 01/20/17 06:00 96 01/20/17 04:00 90 01/20/17 02:00 102 01/20/17 00:00 95 01/19/17 22:00 95 01/19/17 20:00 107 01/19/17 19:55 93 21 01/19/17 18:00 97 01/19/17 17:00 99 01/19/17 16:00 106 01/19/17 12:00 91 01/19/17 11:00 87 I/O 01/19/17 01/19/17 01/19/17 01/20/17 01/20/17 01/20/17 06:59 14:59 22:59 06:59 14:59 22:59 Intake Total 850 ml 1000 ml 960 ml Output Total 650 ml 675 ml Balance 200 ml 1000 ml 960 ml -675 ml Intake Oral 850 ml 960 ml IV Total 1000 ml Output Urine Total 650 ml 675 ml # Voids 1 # Bowel Movements 1 1 1 Laboratory Laboratory Tests Test 01/20/17 05:35 White Blood Count 10.4 Red Blood Count 4.07 Hemoglobin 11.3 Hematocrit 35.1 Mean Corpuscular Volume 86.1 Mean Corpuscular Hemoglobin 27.7 Mean Corpuscular Hemoglobin Concent 32.2 Red Cell Distribution Width 17.2 Platelet Count 147 Mean Platelet Volume 10.7 CBC Comment AUTO DIFF Differential Total Cells Counted 100 Neutrophils % (Manual) 75 Band Neutrophils % 3 Lymphocytes % 9 Monocytes % 11 Eosinophils % 1 Neutrophils # (Manual) 8.2 Myelocytes 1 Differential Comment FINAL DIFF MANUAL Platelet Estimate LOW Platelet Morphology Comment ENLARGED Target Cells 2+ [place] Bodies PRESENT Blood Urea Nitrogen 4 Creatinine 0.23 Random Glucose 203 Total Protein 5.0 Albumin 1.5 Calcium Level 7.7 Phosphorus Level 1.8 Magnesium Level 1.7 Alkaline Phosphatase 1615 Aspartate Amino Transf (AST/SGOT) 151 Alanine Aminotransferase (ALT/SGPT) 112 Total Bilirubin 5.6 Sodium Level 139 Potassium Level 3.5 Chloride Level 104 Carbon Dioxide Level 27.8 Anion Gap 7 Estimat Glomerular Filtration Rate 325 Date/Time Source Procedure Growth Status 01/14/17 11:10 Blood Peripheral Aerobic Blood Culture - Final Klebsiella Pneumoniae Complete 01/14/17 11:10 Anaerobic Blood Culture - Final Klebsiella Pneumoniae Complete 01/14/17 16:00 Urine Catheterized Urine Urine Culture - Final NO GROWTH IN 48 HOURS. Complete Imaging Last Impressions Cholangiopancreatography MRI 01/17/17 0000 Signed Impressions: Service Date/Time: December 17:12 - CONCLUSION: 1. Diffusely abnormal appearance of the liver consistent with cirrhosis. 2. Dilatation of the intrahepatic biliary ducts. The common bile duct below the ankit hepatis appears only minimally distended at 7 mm. There is nonvisualization of the biliary confluence and common hepatic duct. This could be secondary to these areas being scarred down versus a mass in this region. A distinct mass on this MRI is not clearly identified. There is some increased signal which is nonspecific in this region. This should be correlated with the patient's history. 3. Status post splenectomy. 4. Dilatation of the pancreatic duct in the pancreatic body. The pancreatic duct does not appear distended in the pancreatic head region. An underlying mass causing this change cannot be excluded. Given the difficulty in evaluating the biliary system and the pancreatic duct, an ERCP may be helpful. 5. Moderate ascites. 6. Mild right pleural effusion with areas of atelectasis or consolidation at the lung bases bilaterally. Mele Cuba MD Chest X-Ray 01/14/17 1036 Signed Impressions: Service Date/Time: Saturday, January 14, 2017 11:09 - CONCLUSION: No acute disease. You Morales MD FACR Abdomen/Pelvis CT 01/14/17 1036 Signed Impressions: Service Date/Time: Saturday, January 14, 2017 14:53 - CONCLUSION: Moderate ascites is evident intrahepatic air evident. Inhomogeneous contrast enhancement of the liver. Nonobstructing left renal stone There is no free air. You Morales MD FACR Physical Exam HEENT: Normocephalic; atraumatic;+ jaundice. CHEST: CTA CARDIAC: RRR. ABDOMEN: Soft,mildly bloated, mild epigastric/ruq tenderness; hepatosplenomegaly; bowel sounds are present x 4. SKIN: Normal; no rash;+ jaundice. NUT FEEDER: No focal deficits; alert and oriented x 3 Assessment and Plan Plan ASSESSMENT: - Recurrent cholangitis, biliary strictures, obstruction with abdominal pain. Presented to ER with 3 day hx of epigastric/ruq pain and fever of 104.0. CT Scan abdomen and pelvis with IV contrast (01/14/17)----> Moderate ascites is evident intrahepatic air evident, inhomogeneous contrast enhancement of the liver, nonobstructing left renal stone, there is no free air. MRCP without contrast (01/17/17)----> Diffusely abnormal appearance of the liver consistent with cirrhosis. Dilatation of the intrahepatic biliary ducts. The CBD below the ankit hepatis appears only minimally distended at 7 mm. There is nonvisualization of the biliary confluence and common hepatic duct. this could be secondary to these areas being scarred down versus a mass in this region. A distinct mass on this MRI is not clearly identified. There is some increased signal which is nonspecific in this region. This should be correlated with the patient's history. S/P splenectomy. Dilatation of the pancreatic duct in the pancreatic body. The pancreatic duct does not appear distended in the pancreatic head region. An underlying mass causing this change cannot be excluded. Given the difficulty in evaluating the biliary system and the pancreatic duct, an ERCP may be helpful. Moderate ascites. Mild right pleural effusion with areas of atelectasis or consolidation at the lung bases bilaterally. LFTs remain elevated with T. Bilirubin 6.0, AST 187, ALT 160, Alk Phosph 1196. Blood cx (+) on 01/14 with Klebsiella pneumoniae, citrobacter species. WBC/ fever improving with abx- Zosyn. We have not been able to perform successful ERCP due to anatomy/strictures. Will discuss case with IR, if they do not feel that they have any interventions to offer, will contact Dr. Plummer at [facility] for possible transfer to tertiary ( pt known to him) - Sepsis, Bandemia, Bacteremia, Leukocytosis. Suspect Cholangitis. BCx with Klebseilla pneumoniae, Citrobacter species (01/14) improving on abx. Zosyn. Afebrile. - Liver cirrhosis. 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 Cytoplasmic inclusions suggestive of Alpha 1 Antitrypsin are present as may be observed in cirrhotic livers however it is suggested that serologic studies be performed. The pathological features present in this biopsy material are different from that observed in the liver biopsy of 01/19/14. She is followed by Dr. Plummer at [facility]- she states that they are starting workup for liver transplant evaluation. She was last seen in August of this year. AFP 6.1. - Anemia. No acute blood loss. CBC pending. - Gastroparesis. Dx a few months ago - DM per attending. 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 At one point, she was requiring frequent ERCP with stent exchanges for this, but more recently, she has not been able to have an internal stent placed and has required biliary drains periodically. She was evaluated at [facility] for liver transplant evaluation and states that she underwent ERCP in May of 2015 with them. More recently she has been seen by [facility] (Dr. Plummer) and was last hospitalized in August of this year for cholangitis/sepsis. She did not require any procedures at that time. The patient reports that they are starting the workup for possible liver transplant at [facility]. AFP 6.1. 01-19-17- LFTs trending down, WBC is normalizing, patient is stable 01-20-17--AST 151, ALT 112, ALK PHOS 1615, T Bili 5.6. Tolerating diet. Continues to have right sided abdominal pain. No N/V this morning. PLAN: - Full liquid diet - Cont. Abx- Zosyn - ID following - Monitor labs - Supportive care - Patient has been accepted to [facility] for transfer. ICU physician to call ICU physician here to discuss and arrange the transfer. - Further recommendations to follow based on results of above Patient seen and examined by Dr. Prince and myself and this note is written on his behalf Margo Oviedo Jan 20, 2017 10:40
--- NOTE | 2017-01-20 11:11 | HHI.FPPN ---
Addendum to progress note ADDENDUM Reason for addendum: Additonal documentation Additional information Received call from nurse that patient HR in the 130s since 10:15am. She was not complaining of CP. Reports someone had just been in the room and patient may be a little anxious. Telemetry recorded sinus. BP was stable. O2 sat dropped to 88% on room air so she was placed on nasal canula. I had a stat EKG done which showed sinus tach in the 130s, when compared to previous appears unchanged except for rate. I order a 500 cc bolus. Went and examined the patient. She denies CP or SOB. She reported feeling some anxiety, by not knowing when shes being transferred and her daughter is worried. Will order a one time ativan dose to see if this helps with her anxiety. May also d/c central line. Discussed case with nurse and Kathleen Gonazlez MD Jan 20, 2017 11:11
[2017-01-20] MEDS ORDERED: SODIUM CHLORID 0.9% 500 ML INJ 500 ML IV ONE (12:00)
--- NOTE | 2017-01-20 12:35 | EKG ---
Date Performed: 01/20/2017 Time Performed: 10:59:48 PTAGE: 46 years EKG: SINUS TACHYCARDIA SEPTAL MYOCARDIAL INFARCTION , OF INDETERMINATE AGE ABNORMAL ECG PREVIOUS TRACING : 01/14/2017 11.10 DOCTOR: Fadi Campbell Interpretating Date/Time 01/20/2017 12:34:44
[2017-01-20] MEDS ORDERED: LORazepam 0.5 MG TAB PO ONE (13:00)
== END 2017-01-20 19:20 | disposition short-term general hospital (02) | DRG 871 ==
LOC: NEPC 10:21 → NEDH 16:45 → NEDA 19:03 → HIMN 20:10
PROVIDERS: ADMIT Family Medicine; ATTEND Family Medicine
PROC: 02H633Z Insertion of Infusion Device into Right Atrium, Percutaneous Approach (ICD-10-PCS; principal; 2017-01-14)
PROC: B544ZZA Ultrasonography of Left Jugular Veins, Guidance (ICD-10-PCS; 2017-01-14)
DX: A41.4 Sepsis due to anaerobes (principal); R65.21 Severe sepsis with septic shock; K83.0 Cholangitis; J90 Pleural effusion, not elsewhere classified; R18.8 Other ascites; E87.1 Hypo-osmolality and hyponatremia; E10.65 Type 1 diabetes mellitus with hyperglycemia; J98.11 Atelectasis; E88.09 Other disorders of plasma-protein metabolism, not elsewhere classified; K31.84 Gastroparesis; E10.43 Type 1 diabetes mellitus with diabetic autonomic (poly)neuropathy; K73.9 Chronic hepatitis, unspecified; K74.60 Unspecified cirrhosis of liver; N20.0 Calculus of kidney; D64.9 Anemia, unspecified; E83.39 Other disorders of phosphorus metabolism; E87.6 Hypokalemia; K76.0 Fatty (change of) liver, not elsewhere classified; F40.240 Claustrophobia; Z79.4 Long term (current) use of insulin; Z85.72 Personal history of non-Hodgkin lymphomas; Z86.14 Personal history of Methicillin resistant Staphylococcus aureus infection; Z88.5 Allergy status to narcotic agent; Z90.81 Acquired absence of spleen; Z92.21 Personal history of antineoplastic chemotherapy
CPT/HCPCS: 36556; 71010; 74177; 74181; 76377; 76937; 80053; 80202; 81001; 82105; 82248; 82948; 83605; 83690; 83735; 84100; 84132; 85007; 85027; 85610; 85730; 87040; 87077; 87086; 87186; 87205; 87641; 93005; 94150; 96360; 96361; 96365; 96366; 96372; 96374; 96375; C9113; J1170; J1644; J1815; J2060; J2405; J2543; J3370; J3475; J3480; J7030; J7040; J7050; P9047; P9612; Q9967

== ENCOUNTER 2017-02-14 19:03 | Inpatient (IN) | payer OTHER ==
[~2017-02-14] VITALS: Ht 162.6 cm; Wt 53.8 kg
[~2017-02-14 19:03] MED LIST changes: -HUMALOG SQ; -LANTUS2P SQ; +NOVORP2 SQ; +PANT40P IV; +PIPE4INJ IV; -ZOFR4TAB3 SL
[2017-02-14 19:06] VITALS: BP 112/78; PULSE 98; RESP 15; TEMP 99; O2SAT 98
[2017-02-14 20:31] VITALS: BP 109/78; PULSE 81; RESP 18; O2SAT 99
[2017-02-14] MEDS ORDERED: SODIUM CHLORIDE 0.9% FLUSH 10 ML FLUSH IV FLUSH PRN (20:45)
[2017-02-14] MEDS ORDERED: PIPERACIL-TAZO 4.5 GM PREMIX 100 ML IV ONE (20:45)
--- NOTE | 2017-02-14 21:21 | RADRPT ---
EXAM DATE/TIME: 02/14/2017 21:02 [facility] COMPARISON: No previous studies available for comparison. INDICATIONS : Free air. MEDICAL HISTORY : Cirrhosis. Diabetes mellitus type I. Colongitis, Non-Hodgkins lymphoma. SURGICAL HISTORY : Splenectomy. Liver biopsy. ENCOUNTER: Initial ACUITY: 1 month PAIN SCORE: 10/10 LOCATION: abdomen FINDINGS: Mild left base consolidation and a small pleural effusion. Right lung appears reasonably clear. Heart size stable, upper limits of normal. No pneumothorax. CONCLUSION: Mild consolidation and small pleural effusion of the left lung base. Mele Shelton MD on February 14, 2017 at 21:19 Board Certified Radiologist. This report was verified electronically.
--- NOTE | 2017-02-14 21:39 | PD ---
HPI Chief Complaint: Edema Time Seen by Provider: 20:42 Travel History International Travel<30 days: No Contact w/Intl Traveler<30days: No Traveled to known affect area: No History of Present Illness HPI 46-year-old female with known cirrhosis presents to the emergency department with expanding abdominal girth abdominal pain and back pain 2 days with lower extremity pain and swelling. PFSH Past Medical History Narrative Medical Septic shock December 2016 primary sclerosing cholangitis chronic kidney stones non-Hodgkin lymphoma completed chemotherapy 2005 diabetes ascites secondary to hepatic cirrhosis/fibrosis/chronic hepatitis elevated LFTs under care of Dr. Elian Nelson MRSA infection liver biopsy 2016 severe chronic hepatitis bridging cirrhosis biliary stasis fatty liver; no tobacco no alcohol; nursing notes and medical record reviewed Arthritis: No Asthma: No Autoimmune Disease: No Anxiety: No Depression: No Heart Rhythm Problems: No Cancer: Yes (NON HODGKINS LYMPHOMA 2004 -- CHEMOTHERAPY) Cardiovascular Problems: No High Cholesterol: No Chemotherapy: Yes (10/02) Chest Pain: Yes Congestive Heart Failure: No Cirrhosis: Yes COPD: No Cerebrovascular Accident: No Diabetes: Yes Patient Takes Glucophage: No Diminished Hearing: No Endocrine: Yes Gastrointestinal Disorders: Yes (NON-FUNCTIONAL GALLBLADDER) GERD: No Genitourinary: Yes Headaches: No Hiatal Hernia: No Heparin Induced Thrombocytopen: No Hypertension: No Immune Disorder: No Implanted Vascular Access Dvce: Yes Kidney Stones: Yes Medical other: Yes (HX OF ENLARGED SPLEEN, SPLENECTOMY 2004) Musculoskeletal: Yes Neurologic: No Psychiatric: Yes (SLIGHTLY CLAUSTROPHOBIC) Reproductive: No Respiratory: No Immunizations Current: No Migraines: No Radiation Therapy: No Renal Failure: No Seizures: No Sickle Cell Disease: No Sleep Apnea: No Thyroid Disease: No Ulcer: Yes Tetanus Vaccination: < 5 Years Influenza Vaccination: No ?: Not Menopausal: Yes : 2 Para: 2 Miscarriage: 0 : 0 Past Surgical History Abdominal Surgery: Yes (splenectomy, liver biopsy) AICD: No Arteriovenous Shunt: No Body Medical Devices: BILIARY DRAIN Cardiac Surgery: No Ear Surgery: No Endocrine Surgery: No Eye Surgery: No Genitourinary Surgery: No Gynecologic Surgery: No Insulin Pump: No Joint Replacement: No Neurologic Surgery: No Oral Surgery: No Pacemaker: No Thoracic Surgery: No Other Surgery: Yes (BILIARY DRAIN PLACED, LIVER BIOPSY) Social History Alcohol Use: No Tobacco Use: No Substance Use: No Allergies-Medications (Allergen,Severity, Reaction): Coded Allergies: MRI PRECAUTION (Verified Allergy, Severe, NAUSEA; PER PATIENT IT IS A GADOLINIUM ALLERGY KMD 11/25/12, 02/14/17) gadobenic acid (Unverified Allergy, Severe, BREATHING PROBLEMS, N/V,CHILLS , 02/14/17) gadodiamide (Unverified Allergy, Severe, BREATHING PROBLEMS, N/V,CHILLS, ) gadoteridol (Unverified Allergy, Severe, BREATHING PROBLEMS, N/V,CHILLS, ) ketorolac (Unverified Allergy, Severe, Shortness of Breath, 02/14/17) morphine (Unverified Allergy, Severe, BREATHING PROBLEMS, 02/14/17) Reported Meds & Prescriptions Reported Meds & Active Scripts Active Novolin R Inj (Insulin Human Regular) 1,000 Unit/10 Ml Vial 1 % SQ ACHS03 SLIDE SCALE Review of Systems Except as stated in HPI: all other systems reviewed are Neg General / Constitutional: No: Fever, Chills HENT: No: Congestion Cardiovascular: No: Chest Pain or Discomfort Respiratory: No: Shortness of Breath Gastrointestinal: Positive: Diarrhea, Abdominal Pain, No: Nausea Genitourinary: No: Dysuria Musculoskeletal: Positive: Edema, No: Myalgias, Arthralgias Neurologic: Positive: Weakness, No: Dizziness, Syncope, Focal Abnormalities, Coordination Problem Psychiatric: No: Anxiety Hematologic/Lymphatic: No: Easy Bruising Physical Exam Narrative GENERAL: Well-developed mildly ill-appearing female in no acute distress no respiratory distress SKIN: Warm and dry. HEAD: Normocephalic. EYES: No scleral icterus. No injection or drainage. NECK: Supple, trachea midline. No JVD or lymphadenopathy. CARDIOVASCULAR: Regular rate and rhythm without murmurs, gallops, or rubs. RESPIRATORY: Breath sounds equal bilaterally. No accessory muscle use. GASTROINTESTINAL: Abdomen soft, diffusely mildly tender to palpation, positive fluid wave, increased non-tense abdominal girth. MUSCULOSKELETAL: No cyanosis, bilateral lower leg 2+ pitting edema. BACK: Nontender without obvious deformity. No CVA tenderness. Data Data Last Documented VS Vital Signs Date Time Temp Pulse Resp B/P (MAP) Pulse Ox O2 Delivery O2 Flow Rate FiO2 02/14/17 23:20 92 18 99/61 (74) 99 Room Air 02/14/17 19:06 99.0 Orders Orders Complete Blood Count With Diff (02/14/17 20:42) Comprehensive Metabolic Panel (02/14/17 20:42) Lipase (02/14/17 20:42) Lactic Acid (02/14/17 20:42) Prothrombin Time / Inr (Pt) (02/14/17 20:42) Act Partial Throm Time (Ptt) (02/14/17 20:42) Urinalysis - C+S If Indicated (02/14/17 20:42) Ct Abd/Pel W Iv Contrast(Rout) (02/14/17 20:42) Iv Access Insert/Monitor (02/14/17 20:42) Ecg Monitoring (02/14/17 20:42) Oximetry (02/14/17 20:42) Sodium Chloride 0.9% Flush (Ns Flush) (02/14/17 20:45) Electrocardiogram (02/14/17 20:42) Chest, Single Ap (02/14/17 20:42) Ammonia (02/14/17 20:42) Magnesium (Mg) (02/14/17 20:42) Blood Culture (02/14/17 20:42) Enteric Path (Stool) (02/14/17 20:42) C Diff Toxin Pcr (02/14/17 20:42) Piperacil-Tazo 4.5 Gm Premix (Zosyn 4.5 (02/14/17 20:45) Ondansetron Inj (Zofran Inj) (02/14/17 22:00) Hydromorphone Pf Inj (Dilaudid Pf Inj) (02/14/17 22:00) Sodium Chlor 0.9% 250 Ml Inj (Ns 250 Ml (02/14/17 22:15) Iohexol 350 Inj (Omnipaque 350 Inj) (02/14/17 22:51) Admit Order (Ed Use Only) (02/15/17 ) ^ Saline Lock (02/15/17 00:31) Resp Oxygen [place] C Titrat 1-4 L (02/15/17 ) Notify Dr: Other (02/15/17 00:31) Sodium Chloride 0.9% Flush (Ns Flush) (02/15/17 09:00) Sodium Chloride 0.9% Flush (Ns Flush) (02/15/17 00:45) Labs Laboratory Tests Test 02/14/17 21:10 02/14/17 23:01 02/14/17 23:20 Prothrombin Time 10.3 SEC Prothromb Time International Ratio 0.9 RATIO Activated Partial Thromboplast Time 23.9 SEC Blood Urea Nitrogen 9 MG/DL Creatinine 0.24 MG/DL Random Glucose 347 MG/DL Total Protein 5.6 GM/DL Albumin 1.5 GM/DL Calcium Level 8.1 MG/DL Magnesium Level 1.6 MG/DL Alkaline Phosphatase 1721 U/L Aspartate Amino Transf (AST/SGOT) 118 U/L Alanine Aminotransferase (ALT/SGPT) 75 U/L Total Bilirubin 3.0 MG/DL Sodium Level 135 MEQ/L Potassium Level 3.9 MEQ/L Chloride Level 104 MEQ/L Carbon Dioxide Level 24.7 MEQ/L Anion Gap 6 MEQ/L Estimat Glomerular Filtration Rate 310 ML/MIN Lactic Acid Level 0.4 mmol/L Ammonia LESS THAN 10 MCMOL/L Lipase 137 U/L White Blood Count 9.0 TH/MM3 Red Blood Count 3.49 MIL/MM3 Hemoglobin 10.2 GM/DL Hematocrit 32.4 % Mean Corpuscular Volume 92.8 FL Mean Corpuscular Hemoglobin 29.2 PG Mean Corpuscular Hemoglobin Concent 31.5 % Red Cell Distribution Width 19.9 % Platelet Count 325 TH/MM3 Mean Platelet Volume 12.3 FL CBC Comment AUTO DIFF Differential Total Cells Counted 100 Neutrophils % (Manual) 78 % Lymphocytes % 7 % Monocytes % 11 % Eosinophils % 3 % Neutrophils # (Manual) 7.1 TH/MM3 Myelocytes 1 % Differential Comment FINAL DIFF MANUAL Platelet Estimate NORMAL Platelet Morphology Comment ENLARGED Target Cells 1+ Kelly-Poteau Bodies PRESENT Urine Color YELLOW Urine Turbidity CLEAR Urine pH 7.5 Urine Specific [place] 1.034 Urine Protein NEG mg/dL Urine Glucose (UA) 1000 mg/dL Urine Ketones NEG mg/dL Urine Occult Blood NEG Urine Nitrite NEG Urine Bilirubin SMALL Urine Urobilinogen LESS THAN 2.0 MG/DL Urine Leukocyte Esterase NEG Urine RBC 2 /hpf Urine WBC 4 /hpf Urine Squamous Epithelial Cells 4 /hpf Urine Bacteria RARE /hpf Microscopic Urinalysis Comment CULT NOT INDICATED MDM Medical Decision Making Medical Screen Exam Complete: Yes Emergency Medical Condition: Yes Medical Record Reviewed: Yes Interpretation(s) EKG: Normal sinus rhythm first degree AV block rate 75 QS septally V1 V2 age- indeterminate no acute ST elevation or injury pattern change noted; septal infarct previously noted on prior EKG Differential Diagnosis Abdominal pain, cholecystitis, ascending cholangitis, pancreatitis, peritonitis , UTI, pneumonia, colitis, diverticulitis Narrative Course Patient placed on cardiac rn and pulse oximetry IV access obtained blood cultures lactic acid and serum ammonia levels collected patient presumptively treated with Zosyn 4.5 g IV times one dose Patient or crusting repeatedly pain medication systolic blood pressure is 106 mmHg will administer small fluid bolus along with Dilaudid 0.2 mg IV and Zofran 4 mg IV Diagnosis Primary Impression: abdominal pain, acute and chronic Additional Impressions: Liver disease, chronic, with cirrhosis Diabetes mellitus Amaris Bishop MD Feb 14, 2017 21:39
[2017-02-14] MEDS ORDERED: HYDROmorphone HCL PF 1 MG/ML VIAL IV PUSH ONE (22:00)
[2017-02-14] MEDS ORDERED: ONDANSETRON HCL 4 MG/2 ML VIAL IV PUSH ONE (22:00)
[2017-02-14 22:05] LABS: APTT (PATIENT) 23.9 SEC (24.3-30.1); INTERNATIONAL NORMALIZED RATIO 0.9 RATIO; PROTHROMBIN TIME - PATIENT 10.3 SEC (9.8-11.6)
[2017-02-14 22:06] LABS: ANION GAP 6 MEQ/L (5-15); AST (GOT) 118 U/L (15-37); BICARBONATE 24.7 MEQ/L (21.0-32.0); BLOOD UREA NITROGEN 9 MG/DL (7-18); CHLORIDE 104 MEQ/L (98-107); GLOMERULAR FILTRATION RATE 310 ML/MIN (>89); MAGNESIUM 1.6 MG/DL (1.5-2.5); POTASSIUM 3.9 MEQ/L (3.5-5.1); SODIUM (NA) 135 MEQ/L (136-145)
[2017-02-14 22:08] LABS: ALT (GPT) 75 U/L (10-53)
[2017-02-14] MEDS ORDERED: SODIUM CHLOR 0.9% 250 ML INJ 250 ML IV ONE (22:15)
[2017-02-14 22:19] LABS: ALKALINE PHOSPHATASE 1721 U/L (45-117)
[2017-02-14 22:23] VITALS: BP 98/67; PULSE 84; RESP 18; O2SAT 98
[2017-02-14] MEDS ORDERED: IOHEXOL 350 MG/ML 10 ML VIAL (for RAD DIAG) IVCONTRAST ONE (22:51)
--- NOTE | 2017-02-14 23:03 | RADRPT ---
EXAM DATE/TIME: 02/14/2017 22:40 [facility] COMPARISON: CT ABDOMEN & PELVIS W CONTRAST, January 14, 2017, 14:53. INDICATIONS : Back pain with edema. IV CONTRAST: 100 cc Omnipaque 350 (iohexol) IV ORAL CONTRAST: No oral contrast ingested. RADIATION DOSE: 6.64 CTDIvol (mGy) MEDICAL HISTORY : Lymphoma. Renal calculi. Cirrhosis.Ulcer. SURGICAL HISTORY : Splenectomy. ENCOUNTER: Initial ACUITY: 1 day PAIN SCALE: 6/10 LOCATION: Bilateral abdomen TECHNIQUE: Volumetric scanning of the abdomen and pelvis was performed. Using automated exposure control and ad justment of the mA and/or kV according to patient size, radiation dose was kept as low as reasonably achievable to obtain optimal diagnostic quality images. DICOM format image data is available electro nically for review and comparison. FINDINGS: Small to moderate left effusion increased from January 14. Trace right pleural fluid. There is moderate ascites, increased from January 14. There is placement of a biliary stent. Pneumobil ia is present. Diffuse liver cirrhosis. Spleen surgically absent. No hydronephrosis. Nonobstructing calculus lower pole left kidney measuring about 8 mm. Right kidney unremarkable. Pancreas unremarkable. No pelvic masses. Moderate anasarca. CONCLUSION: 1. Moderate ascites, increased from January 14. Liver cirrhosis. Splenectomy. Interval placement of bi liary stent without significant ductal dilatation.. 2. Moderate-sized left effusion increased from January 14. 3. Moderate anasarca. 4. Nonobstructing left renal calculus. Feng Rod MD on February 14, 2017 at 22:55 Board Certified Radiologist. This report was verified electronically.
[2017-02-14 23:16] LABS: HEMATOCRIT 32.4 % (35.0-46.0); MEAN CELL VOLUME 92.8 FL (80.0-100.0); MEAN CORPUSCULAR HEMOGLOBIN 29.2 PG (27.0-34.0); MEAN CORPUSCULAR HGB CONC 31.5 % (32.0-36.0); PLATELET COUNT 325 TH/MM3 (150-450); RED BLOOD COUNT 3.49 MIL/MM3 (4.00-5.30); RED CELL DISTRIBUTION WIDTH 19.9 % (11.6-17.2)
[2017-02-14 23:20] VITALS: BP 99/61; PULSE 92; RESP 18; O2SAT 99
[2017-02-14 23:23] LABS: HEMO FLAGS AUTO DIFF
[2017-02-14 23:54] LABS: BACTERIA, URINE RARE /hpf; BLOOD, URINE NEG (NEG); COMMENT (UR) CULT NOT INDICATED; CULTURE IF INDICATED CULT NOT INDICATED; GLUCOSE,URINE 1000 mg/dL (NEG); KETONE, URINE NEG (NEG); NITRITE,URINE NEG (NEG); PH, URINE 7.5 (5.0-8.5); SQUAMOUS EPITHELIAL CELL URINE 4 /hpf (0-5); URINE COLOR YELLOW (YELLW/STRAW)
[2017-02-15] VITALS (11 sets, daily range): BP systolic 93–111; BP diastolic 54–72; PULSE 62–75; RESP 14–20; TEMP 96.8–98.2; O2SAT 94–99
[2017-02-15 00:01] LABS: EOSINOPHILS 3 % (0-4); MYELOCYTES 1 % (0-0); NEUTROPHIL # MANUAL DIFF 7.1 TH/MM3 (1.8-7.7); POLYS (SEG NEUTROPHILS) 78 % (16-70); WBC DIFF SAMPLE 100
[2017-02-15 00:02] LABS: PLATELET ESTIMATE SMEAR NORMAL (NORMAL); PLATELET MORPHOLOGY ENLARGED (NORMAL); SCAN/DIFF FINAL DIFF MANUAL
[2017-02-15 00:03] LABS: HOWELL-JOLLY BODIES PRESENT (NONE SEEN); TARGET CELLS 1+ (NORMAL)
[2017-02-15] MEDS ORDERED: SODIUM CHLORIDE 0.9% FLUSH 10 ML FLUSH IVF PRN (00:45)
[2017-02-15] MEDS ORDERED: NALOXONE HCL 0.4 MG/ML AMP IV PUSH PRN (01:00)
[2017-02-15] MEDS ORDERED: SODIUM CHLORIDE 0.9% FLUSH 10 ML FLUSH IV FLUSH PRN (01:00)
--- NOTE | 2017-02-15 02:01 | HHI.HP ---
[facility] Gilmar Matos DO Admission Diagnosis abdominal pain/ascites; L pleural effusion; hyperglycemia/DM Diagnoses: Chief Complaint: abdominal pain Travel History International Travel<30 Days: No Contact w/Intl Traveler <30 Da: No Traveled to Known Affected Are: No History of Present Illness Written by NICKIE Farfan acting as scribe for [Dariana] on 02/15/17 at 01: 49. 46 y/o with a history of cirrhosis due to sclerosing cholangitis, DM, and non Hodgkin lymphoma 2005 presented to the ED with multiple complaints. Patient states for the last 2 days she has had increased abdominal pressure pain and distention with associated nausea. She also complains of increased leg swelling , fatigue and diarrhea, orange in color and foul smelling, 5-6x a day. She states she was so weak her friend had to help her get around. She denies any vomiting, chest pain, fevers or sob. She does have an appointment at [facility] for evaluation for a transplant list. It is unclear if they have started the process yet. She is currently not on any medications for cirrhosis, and states she was not told she had to be. PCP: Dr. Matos GI: Dr. Plummer at [facility] Past Family Social History Past Medical History Sclerosing cholangitis Cirrhosis DM Non Hodgkin lymphoma 2005 Past Surgical History Splenectomy Biliary stent placement Liver biopsy Reported Medications Reported Meds & Active Scripts Active Novolin R Inj (Insulin Human Regular) 1,000 Unit/10 Ml Vial 1 % SQ ACHS03 SLIDE SCALE Allergies: Coded Allergies: MRI PRECAUTION (Verified Allergy, Severe, NAUSEA; PER PATIENT IT IS A GADOLINIUM ALLERGY KMD 11/25/12, 02/14/17) gadobenic acid (Unverified Allergy, Severe, BREATHING PROBLEMS, N/V,CHILLS , 02/14/17) gadodiamide (Unverified Allergy, Severe, BREATHING PROBLEMS, N/V,CHILLS, ) gadoteridol (Unverified Allergy, Severe, BREATHING PROBLEMS, N/V,CHILLS, ) ketorolac (Unverified Allergy, Severe, Shortness of Breath, 02/14/17) morphine (Unverified Allergy, Severe, BREATHING PROBLEMS, 02/14/17) Active Ordered Medications Current Medications Medications (Trade) Dose Ordered Sig/Celso Route Start Time Stop Time Status Last Admin (NS Flush) 2 ml UNSCH PRN IV FLUSH 02/15/17 01:00 (NS Flush) 2 ml BID IV FLUSH 02/15/17 09:00 (Narcan Inj) 0.4 mg UNSCH PRN IV PUSH 02/15/17 01:00 Family History Dad: Heart disease, CVA x 2 Mom: DM Social History Tobacco use: Denies Alcohol use: Denies Illicit drug use: Denies Physical Exam Vital Signs Vital Signs Date Time Temp Pulse Resp B/P (MAP) Pulse Ox O2 Delivery O2 Flow Rate FiO2 02/15/17 01:40 02/15/17 01:29 66 18 100/67 (78) 99 Room Air 02/14/17 23:20 92 18 99/61 (74) 99 Room Air 02/14/17 22:23 84 18 98/67 (77) 98 Room Air 02/14/17 20:31 81 18 109/78 (88) 99 Room Air 02/14/17 20:05 18 98 Room Air 02/14/17 19:06 99.0 98 15 112/78 (89) 98 Room Air Physical Exam GENERAL: This is a ill looking patient who is very painful SKIN: Jaundice HEAD: Atraumatic. Normocephalic. EYES: sceral icterus. ENT: Nose without bleeding, purulent drainage or septal hematoma. Airway patent. NECK: Trachea midline. No JVD. CARDIOVASCULAR: Regular rate and rhythm without murmurs, gallops, or rubs. RESPIRATORY: Clear to auscultation. Breath sounds equal bilaterally. No wheezes , rales, or rhonchi. GASTROINTESTINAL: Abdomen round, tender in all quadrants, moderately distended. MUSCULOSKELETAL: +3 pitting edema in bilateral lower extremities. No calf tenderness. NEUROLOGICAL: Awake and alert. Motor and sensory grossly within normal limits. Normal speech. Laboratory Laboratory Tests Test 02/14/17 21:10 02/14/17 23:01 02/14/17 23:20 Prothrombin Time 10.3 Prothromb Time International Ratio 0.9 Activated Partial Thromboplast Time 23.9 Blood Urea Nitrogen 9 Creatinine 0.24 Random Glucose 347 Total Protein 5.6 Albumin 1.5 Calcium Level 8.1 Magnesium Level 1.6 Alkaline Phosphatase 1721 Aspartate Amino Transf (AST/SGOT) 118 Alanine Aminotransferase (ALT/SGPT) 75 Total Bilirubin 3.0 Sodium Level 135 Potassium Level 3.9 Chloride Level 104 Carbon Dioxide Level 24.7 Anion Gap 6 Estimat Glomerular Filtration Rate 310 Lactic Acid Level 0.4 Ammonia LESS THAN 10 Lipase 137 White Blood Count 9.0 Red Blood Count 3.49 Hemoglobin 10.2 Hematocrit 32.4 Mean Corpuscular Volume 92.8 Mean Corpuscular Hemoglobin 29.2 Mean Corpuscular Hemoglobin Concent 31.5 Red Cell Distribution Width 19.9 Platelet Count 325 Mean Platelet Volume 12.3 CBC Comment AUTO DIFF Differential Total Cells Counted 100 Neutrophils % (Manual) 78 Lymphocytes % 7 Monocytes % 11 Eosinophils % 3 Neutrophils # (Manual) 7.1 Myelocytes 1 Differential Comment FINAL DIFF MANUAL Platelet Estimate NORMAL Platelet Morphology Comment ENLARGED Target Cells 1+ Kelly-Joppa Bodies PRESENT Urine Color YELLOW Urine Turbidity CLEAR Urine pH 7.5 Urine Specific [place] 1.034 Urine Protein NEG Urine Glucose (UA) 1000 Urine Ketones NEG Urine Occult Blood NEG Urine Nitrite NEG Urine Bilirubin SMALL Urine Urobilinogen LESS THAN 2.0 Urine Leukocyte Esterase NEG Urine RBC 2 Urine WBC 4 Urine Squamous Epithelial Cells 4 Urine Bacteria RARE Microscopic Urinalysis Comment CULT NOT INDICATED Date/Time Source Procedure Growth Status 02/14/17 21:10 Blood Peripheral Aerobic Blood Culture Pending Received 02/14/17 21:10 Blood Peripheral Anaerobic Blood Culture Pending Received Result Diagram: 02/14/17 2301 02/14/172109 Imaging Last Impressions Chest X-Ray 02/14/172041 Signed Impressions: Service Date/Time: January 21:02 - CONCLUSION: Mild consolidation and small pleural effusion of the left lung base. Mele Shelton MD Abdomen/Pelvis CT 02/14/172041 Signed Impressions: Service Date/Time: January 22:40 - CONCLUSION: 1. Moderate ascites, increased from January 14. Liver cirrhosis. Splenectomy. Interval placement of biliary stent without significant ductal dilatation.. 2. Moderate-sized left effusion increased from January 14. 3. Moderate anasarca. 4. Nonobstructing left renal calculus. Feng Rod MD [place] VTE Risk Assessment Caprini VTE Risk Assessment: Mod/High Risk (score >= 2) VTE Pharm Contraindication: End Stage Liver Disease Caprini Risk Assessment Model Point Value = 1 Point Value = 2 Point Value = 3 Point Value = 5 Age 41-60 Minor surgery BMI > 25 kg/m2 Swollen legs Varicose veins or History of unexplained or recurrent spontaneous Oral contraceptives or hormone replacement Sepsis (< 1 month) Serious lung disease, including pneumonia (< 1 month) Abnormal pulmonary function Acute myocardial infarction Congestive heart failure (< 1 month) History of inflammatory bowel disease Medical patient at bed rest Age 61-74 Arthroscopic surgery Major open surgery (> 45 min) Laparoscopic surgery (> 45 min) Malignancy Confined to bed (> 72 hours) Immobilizing plaster cast Central venous access Age >= 75 History of VTE Family history of VTE Factor V Leiden Prothrombin [id number] Lupus anticoagulant Anticardiolipin antibodies Elevated serum homocysteine Heparin-induced thrombocytopenia Other congenital or acquired thrombophilia Stroke (< 1 month) Elective arthroplasty Hip, pelvis, or leg fracture Acute spinal cord injury (< 1 month) Prophylaxis Regimen Total Risk Factor Score Risk Level Prophylaxis Regimen 0-1 Low Early ambulation 2 Moderate Order ONE of the following: *Sequential Compression Device (SCD) *Heparin 5000 units SQ BID 3-4 Higher Order ONE of the following medications: *Heparin 5000 units SQ TID *Enoxaparin/Lovenox 40 mg SQ daily (WT < 150 kg, CrCl > 30 mL/min) *Enoxaparin/Lovenox 30 mg SQ daily (WT < 150 kg, CrCl > 10-29 mL/min) *Enoxaparin/Lovenox 30 mg SQ BID (WT < 150 kg, CrCl > 30 mL/min) AND/OR *Sequential Compression Device (SCD) 5 or more Highest Order ONE of the following medications: *Heparin 5000 units SQ TID (Preferred with Epidurals) *Enoxaparin/Lovenox 40 mg SQ daily (WT < 150 kg, CrCl > 30 mL/min) *Enoxaparin/Lovenox 30 mg SQ daily (WT < 150 kg, CrCl > 10-29 mL/min) *Enoxaparin/Lovenox 30 mg SQ BID (WT < 150 kg, CrCl > 30 mL/min) AND *Sequential Compression Device (SCD) Assessment and Plan Problem List: (1) Ascites ICD Code: R18.8 - Other ascites (2) Diabetes ICD Code: E11.9 - Type 2 diabetes mellitus without complications (3) Sclerosing cholangitis ICD Code: K83.0 - Sclerosing cholangitis Status: Chronic Assessment and Plan 46 y/o with a history of cirrhosis secondary to PSC, DM, Hepatitis, and non Hodgkin lymphoma 2005 presented to the ED with multiple complaints. Ascites due to chronic cirrhosis from sclerosing cholangitis Abdominal CT reviewed and shows Moderate ascites, and moderate left effusion that is increased from January 14. -US guided Paracentesis in AM, peritoneal cell count and culture and gram stain ordered- will not give antibiotics yet as suspicion for SBP is low and pt is having diarrhea- would need to rule out cdiff -Consult GI for recommendations regarding treatment for cirrhosis -Patient will need thoracentesis after paracentesis for left effusion- please to order -Dilaudid IV for pain management Diarrhea, recent hospitalization with antibiotic use -Check c diff DM, chronic, uncontrolled -Accu checks AC/Hs -Resume home medication when patient is no longer NPO DVT prophylaxis: SCDs This note was transcribed by dionne [Mireya Burns]. I, Dr. Mackenzie Westbrook personally performed the history, physical exam, and medical decision making; and confirmed the accuracy of the information in the transcribed note. Authenticated by Dr. Mackenzie Westbrook on 02/15/17 at 01:49. Discussed Condition With Patient and RN Physician Certification 2 Midnight Certification Type: Admission for Inpatient Services Order for Inpatient Services The services are ordered in accordance with Medicare regulations or non- Medicare payer requirements, as applicable. In the case of services not specified as inpatient-only, they are appropriately provided as inpatient services in accordance with the 2-midnight benchmark. Estimated LOS (days): 3 days is the estimated time the patient will need to remain in the hospital, assuming treatment plan goals are met and no additional complications. Post-Hospital Plan: Mireya Freeman Feb 15, 2017 02:01 Mackenzie Westbrook MD Feb 15, 2017 10:37
[2017-02-15] MEDS: HYDROmorphone HCL PF 1 MG/ML VIAL IV PUSH PRN ×5 (02:37→20:57)
[2017-02-15] MEDS ORDERED: DEXTROSE 50% IN WATER 50 ML VIAL(D50) IV PUSH PRN (03:45)
[2017-02-15] MEDS ORDERED: GLUCAGON 1 MG/ML VIAL OTHER PRN (03:45)
[2017-02-15] MEDS ORDERED: SODIUM CHLORIDE 0.9% FLUSH 10 ML FLUSH IV FLUSH SCH (09:00)
[2017-02-15] MEDS ORDERED: LIDOCAINE HCL 1% 20 ML VIAL ONE (09:55)
--- NOTE | 2017-02-15 10:03 | RADRPT ---
EXAM DATE/TIME: 02/15/2017 08:32 [facility] COMPARISON: No previous studies available for comparison. EXTERNAL COMPARISON: [facility], US ABDOMEN - UPPER LIMITED February 09, 2016 INDICATIONS : Ascites. MEDICAL HISTORY : Sclerosing cholangitis. Gallbladder disease. Ulcer. Diabetes. Cirrhosis. Non hodgkins lymphoma. Chemo therapy. MRSA. SURGICAL HISTORY : Splenectomy. Liver biopsy. Biliary drain placed in liver and stents. ENCOUNTER: Initial ACUITY: 1 day PAIN SCORE: 0/10 LOCATION: Right lower quadrant FLUID: Total volume of 2,700 cc of clear, yellow fluid was removed. Fluid was sent to lab for ordered studies. Post procedure scanning reveals no hematoma or other complication. TECHNIQUE: 1. Ultrasound guidance for abdominal paracentesis. 2. Paracentesis. The risks, benefits, and alternatives to ultrasound guided paracentesis were explained to the patient in detail including the risk of bleeding and infection. Written and verbal informed consent was obt ained. With the patient on the ultrasound table, ultrasound imaging was used to select the most appropriate approach for paracentesis. Overlying skin was prepped and draped in the usual sterile fashion and wi th a local anesthetic, a dermatotomy was made with an 11 blade scalpel. A 6 [place] [id number] ca theter was introduced into the peritoneal cavity and fluid was collected. The patient tolerated the procedure well and left the ultrasound suite in stable condition. CONCLUSION: Uncomplicated ultrasound guided paracentesis. Carlos Tobias MD on February 15, 2017 at 10:02 Board Certified Radiologist. This report was verified electronically.
--- NOTE | 2017-02-15 10:24 | EKG ---
Date Performed: 02/14/2017 Time Performed: 21:20:09 PTAGE: 46 years EKG: Sinus rhythm WITH FIRST DEGREE AV BLOCK SEPTAL MYOCARDIAL INFARCTION ABNORMAL ECG PREVIOUS TRACING : 01/20/2017 10.59 Compared to prior tracing no significant change DOCTOR: Nestor Perez Interpretating Date/Time 02/15/2017 10:18:47
[2017-02-15 10:42] LABS: PERITONEAL HISTIOCYTES 44 %; PERITONEAL LYMPHS 29 %; PERITONEAL MESOTHELIAL 21 %; PERITONEAL MONOS 1 %; PERITONEAL POLYS(SEGS) 5 %; PERITONEAL WBC 331 /MM3 (0-10)
[2017-02-15] MEDS: SODIUM CHLORIDE 0.9% FLUSH 10 ML FLUSH IV FLUSH SCH ×2 (10:53→20:58)
--- NOTE | 2017-02-15 13:27 | HHI.PR ---
Subjective Remarks feeling better abdomen softer, tolerated paracentesis- 2.9 L out with abdominal pain- generalized Objective Vitals Vital Signs Date Time Temp Pulse Resp B/P (MAP) Pulse Ox O2 Delivery O2 Flow Rate FiO2 02/15/17 09:55 96.8 62 14 93/61 (72) 97 02/15/17 09:40 97.0 62 14 100/65 (77) 98 02/15/17 08:38 97.0 71 14 100/72 (81) 94 02/15/17 04:34 75 02/15/17 04:00 Room Air 02/15/17 02:15 97.1 64 16 111/61 (78) 97 02/15/17 01:48 98 21 02/15/17 01:40 02/15/17 01:29 66 18 100/67 (78) 99 Room Air 02/14/17 23:20 92 18 99/61 (74) 99 Room Air 02/14/17 22:23 84 18 98/67 (77) 98 Room Air 02/14/17 20:31 81 18 109/78 (88) 99 Room Air 02/14/17 20:05 18 98 Room Air 02/14/17 19:06 99.0 98 15 112/78 (89) 98 Room Air I/O 02/14/17 02/14/17 02/14/17 02/15/17 02/15/17 02/15/17 07:00 15:00 23:00 07:00 15:00 23:00 Intake Total 0 ml Output Total 400 ml Balance -400 ml Intake Oral 0 ml Output Urine Total 400 ml # Bowel Movements 0 Result Diagram: 02/14/17 2301 02/14/172109 Imaging Last Impressions Cyst Biopsy Asp-Paracentesis US 02/15/17 0000 Signed Impressions: Service Date/Time: Wednesday, February 15, 2017 08:32 - CONCLUSION: Uncomplicated ultrasound guided paracentesis. Carlos Tobias MD Chest X-Ray 02/14/172041 Signed Impressions: Service Date/Time: January 21:02 - CONCLUSION: Mild consolidation and small pleural effusion of the left lung base. Mele Shelton MD Abdomen/Pelvis CT 02/14/172041 Signed Impressions: Service Date/Time: January 22:40 - CONCLUSION: 1. Moderate ascites, increased from January 14. Liver cirrhosis. Splenectomy. Interval placement of biliary stent without significant ductal dilatation.. 2. Moderate-sized left effusion increased from January 14. 3. Moderate anasarca. 4. Nonobstructing left renal calculus. 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 Ascites due to chronic cirrhosis from sclerosing cholangitis S/P Paracentesis- 2.9 L out- fluid + neutrophils R/P SBP- ff fluid studies Start patient on Ceftriaxone -Consult GI for recommendations regarding treatment for cirrhosis - consider paracentesis tomorrow -Dilaudid IV for pain management - Aldactone 25 mg po bid Diarrhea, recent hospitalization with antibiotic use -Check c diff DM, chronic, uncontrolled -Accu checks AC/Hs start diet DVT prophylaxis: Eleno Rhoades MD Feb 15, 2017 13:27
[2017-02-15] MEDS: cefTRIAXone INJ 2,000 MG in SODIUM CHLORIDE 0.9% INJ 100 ML IV SCH (15:00)
--- NOTE | 2017-02-15 15:31 | PD.CONS ---
HPI History of Present Illness This is a 46 year old female who came to the emergency room for evaluation of bilateral lower extremity and abdominal swelling x 3 days and diarrhea. She has a history of non-Hodgkin's lymphoma and completed chemotherapy in 2005, but has had an ongoing problem with biliary strictures and sclerosing cholangitis. At one point, she was requiring frequent ERCP with stent exchanges for this, but more recently, she has not been able to have an internal stent placed and has required biliary drains periodically. Her last liver biopsy was on (07/27/16 ) and revealed severe chronic hepatitis with bridging fibrosis and cirrhosis ( grade 2/4; stage 3-4/4) with associated bile stasis, fatty change and histopathologic features most suggestive of drug induced liver disease ( including alcohol)- no evidence of primary biliary cirrhosis or primary sclerosing cholangitis in this biopsy. Cytoplasmic inclusions suggestive of Alpha 1 Antitrypsin are present as may be observed in cirrhotic livers however it is suggested that serologic studies be performed. The pathological features present in this biopsy material are different from that observed in the liver biopsy of 01/19/14. She was seen at [facility] for liver transplant evaluation and states that she underwent ERCP in May of 2015 with them. More recently she has been seen by [facility] for tertiary. She was hospitalized in late December/early January of this year for sepsis secondary to recurrent cholangitis, biliary strictures, obstruction. During that hospitalization, we discussed with Dr. Limon in IR her abnormal imaging on MRCP, but he did not feel that she was a candidate for PTBD, as she had multiple ducts obstructed. We did contact [facility] for possible inpatient transfer, but they did not accept patient and wanted her to follow up as outpatient. Since her last hospitalization, she did go to [facility] (Dr. Plummer) for liver transplant evaluation. Afterwards, she also went to the ER at [facility] for abdominal pain and was hospitalized and had a stent placed. She cannot tell me the details of this, but states she had a ERCP with stent placement. She has a follow up appointment next month at [facility]. She now presents to the ER with a 3 day history of lower extremity and abdominal swelling. She has never had this before. She denies any fevers or chills. She also has some associated abdominal discomfort/pressure like, more in the LUQ with no aggravating or alleviating factors. She started having diarrhea with 4-5 loose orangish "odd smelling" stools per day about 2 days ago. Of note, she has had multiple hospitalizations and courses of antibiotics. She is not on any diuretics at home, but states she has never had any issues with fluid retention in the past. (Aliyah Mosher) PFSH Past Medical History Biliary obstruction secondary to strictures Gastroparesis Sclerosing cholangitis Non-Hodgkin's lymphoma Diabetes Ureterolithiasis MRSA and wound Liver Mass. Past Surgical History Multiple ERCP with stent placement Splenectomy Biliary drain Liver biopsy Shockwave lithotripsy Biliary drain placement (Aliyah Mosher) Coded Allergies: MRI PRECAUTION (Verified Allergy, Severe, NAUSEA; PER PATIENT IT IS A GADOLINIUM ALLERGY KMD 11/25/12, 02/14/17) gadobenic acid (Unverified Allergy, Severe, BREATHING PROBLEMS, N/V,CHILLS , 02/14/17) gadodiamide (Unverified Allergy, Severe, BREATHING PROBLEMS, N/V,CHILLS, ) gadoteridol (Unverified Allergy, Severe, BREATHING PROBLEMS, N/V,CHILLS, ) ketorolac (Unverified Allergy, Severe, Shortness of Breath, 02/14/17) morphine (Unverified Allergy, Severe, BREATHING PROBLEMS, 02/14/17) Medications Allergies Coded Allergies Type Severity Reaction Last Updated Verified MRI PRECAUTION Allergy Severe NAUSEA; PER PATIENT IT IS A GADOLINIUM ALLERGY D 11/25/12 02/14/17 Yes gadobenic acid Allergy Severe BREATHING PROBLEMS, N/V,CHILLS 02/14/17 No gadodiamide Allergy Severe BREATHING PROBLEMS, N/V,CHILLS 02/14/17 No gadoteridol Allergy Severe BREATHING PROBLEMS, N/V,CHILLS 02/14/17 No ketorolac Allergy Severe Shortness of Breath 02/14/17 No morphine Allergy Severe BREATHING PROBLEMS 02/14/17 No Active Scripts Medications Dose Route/Sig Max Daily Dose Days Date Category Novolin R Inj (Insulin Human Regular) 1,000 Unit/10 Ml Vial 1 % SQ [id number] SLIDE SCALE 01/19/17 Rx Family History Dad: Heart disease, CVA x 2 Mom: DM Social History No use of tobacco, illicit drug use, alcohol (Aliyah Mosher) Review of Systems Constitutional: DENIES: Fever, Weight loss, Chills, Change in appetite Respiratory: COMPLAINS OF: Shortness of breath, DENIES: Cough Cardiovascular: COMPLAINS OF: Lower Extremity Edema, DENIES: Chest pain Gastrointestinal: COMPLAINS OF: Abdominal pain, Diarrhea, Swelling of Abdomen, DENIES: Black stools, Bloody stools, Constipation, Nausea, Vomiting, Heartburn, Hematemesis Musculoskeletal: COMPLAINS OF: Joint pain, Muscle aches, Back pain Integumentary: DENIES: Jaundice Neurologic: DENIES: Headache Psychiatric: DENIES: Confusion (Aliyah Mosher) GI Exam Vitals I&O Vital Signs Date Time Temp Pulse Resp B/P (MAP) Pulse Ox O2 Delivery O2 Flow Rate FiO2 02/15/17 12:07 97.5 62 16 97/62 (74) 96 02/15/17 09:55 96.8 62 14 93/61 (72) 97 02/15/17 09:40 97.0 62 14 100/65 (77) 98 02/15/17 08:38 97.0 71 14 100/72 (81) 94 02/15/17 04:34 75 02/15/17 04:00 Room Air 02/15/17 02:15 97.1 64 16 111/61 (78) 97 02/15/17 01:48 98 21 02/15/17 01:40 02/15/17 01:29 66 18 100/67 (78) 99 Room Air 02/14/17 23:20 92 18 99/61 (74) 99 Room Air 02/14/17 22:23 84 18 98/67 (77) 98 Room Air 02/14/17 20:31 81 18 109/78 (88) 99 Room Air 02/14/17 20:05 18 98 Room Air 02/14/17 19:06 99.0 98 15 112/78 (89) 98 Room Air I/O 02/14/17 02/14/17 02/14/17 02/15/17 02/15/17 02/15/17 07:00 15:00 23:00 07:00 15:00 23:00 Intake Total 0 ml Output Total 400 ml Balance -400 ml Intake Oral 0 ml Output Urine Total 400 ml # Bowel Movements 0 Imaging Last Impressions Cyst Biopsy Asp-Paracentesis US 02/15/17 0000 Signed Impressions: Service Date/Time: Wednesday, February 15, 2017 08:32 - CONCLUSION: Uncomplicated ultrasound guided paracentesis. Carlos Tobias MD Chest X-Ray 02/14/172041 Signed Impressions: Service Date/Time: January 21:02 - CONCLUSION: Mild consolidation and small pleural effusion of the left lung base. Mele Shelton MD Abdomen/Pelvis CT 02/14/172041 Signed Impressions: Service Date/Time: January 22:40 - CONCLUSION: 1. Moderate ascites, increased from January 14. Liver cirrhosis. Splenectomy. Interval placement of biliary stent without significant ductal dilatation.. 2. Moderate-sized left effusion increased from January 14. 3. Moderate anasarca. 4. Nonobstructing left renal calculus. Feng Rod MD Laboratory Test 02/14/17 21:10 02/14/17 23:01 02/14/17 23:20 02/15/17 09:00 Prothrombin Time 10.3 SEC Prothromb Time International Ratio 0.9 RATIO Activated Partial Thromboplast Time 23.9 SEC Blood Urea Nitrogen 9 MG/DL Creatinine 0.24 MG/DL Random Glucose 347 MG/DL Total Protein 5.6 GM/DL Albumin 1.5 GM/DL Calcium Level 8.1 MG/DL Magnesium Level 1.6 MG/DL Alkaline Phosphatase 1721 U/L Aspartate Amino Transf (AST/SGOT) 118 U/L Alanine Aminotransferase (ALT/SGPT) 75 U/L Total Bilirubin 3.0 MG/DL Sodium Level 135 MEQ/L Potassium Level 3.9 MEQ/L Chloride Level 104 MEQ/L Carbon Dioxide Level 24.7 MEQ/L Anion Gap 6 MEQ/L Estimat Glomerular Filtration Rate 310 ML/MIN Lactic Acid Level 0.4 mmol/L Ammonia LESS THAN 10 MCMOL/L Lipase 137 U/L White Blood Count 9.0 TH/MM3 Red Blood Count 3.49 MIL/MM3 Hemoglobin 10.2 GM/DL Hematocrit 32.4 % Mean Corpuscular Volume 92.8 FL Mean Corpuscular Hemoglobin 29.2 PG Mean Corpuscular Hemoglobin Concent 31.5 % Red Cell Distribution Width 19.9 % Platelet Count 325 TH/MM3 Mean Platelet Volume 12.3 FL CBC Comment AUTO DIFF Differential Total Cells Counted 100 Neutrophils % (Manual) 78 % Lymphocytes % 7 % Monocytes % 11 % Eosinophils % 3 % Neutrophils # (Manual) 7.1 TH/MM3 Myelocytes 1 % Differential Comment FINAL DIFF MANUAL Platelet Estimate NORMAL Platelet Morphology Comment ENLARGED Target Cells 1+ Kelly-Walworth Bodies PRESENT Urine Color YELLOW Urine Turbidity CLEAR Urine pH 7.5 Urine Specific [place] 1.034 Urine Protein NEG mg/dL Urine Glucose (UA) 1000 mg/dL Urine Ketones NEG mg/dL Urine Occult Blood NEG Urine Nitrite NEG Urine Bilirubin SMALL Urine Urobilinogen LESS THAN 2.0 MG/DL Urine Leukocyte Esterase NEG Urine RBC 2 /hpf Urine WBC 4 /hpf Urine Squamous Epithelial Cells 4 /hpf Urine Bacteria RARE /hpf Microscopic Urinalysis Comment CULT NOT INDICATED Peritoneal Fluid WBC 331 /MM3 Peritoneal Fluid RBC 281 /MM3 Peritoneal Fluid Neutrophils 5 % Peritoneal Fluid Lymphocytes 29 % Peritoneal Fluid Monocytes 1 % Peritoneal Fluid Histiocytes 44 % Peritoneal Fluid Mesothelial Cells 21 % Date/Time Source Procedure Growth Status 02/14/17 21:10 Blood Peripheral Aerobic Blood Culture - Preliminary NO GROWTH IN 1 DAY Resulted 02/14/17 21:10 Blood Peripheral Anaerobic Blood Culture - Preliminary NO GROWTH IN 1 DAY Resulted 02/15/17 09:00 Fluid Peritoneal Fluid Gram Stain - Final Resulted 02/15/17 09:00 Fluid Peritoneal Fluid Body Fluid Culture Pending Resulted Physical Examination HEENT: Normocephalic; atraumatic; no jaundice. CHEST: Resp. even/unlabored, bases diminished CARDIAC: RRR. ABDOMEN: Soft, mildly distended, mild diffuse tenderness; bowel sounds are present in all four quadrants. EXTREMITIES: BLE edema. SKIN: Normal; no rash; no jaundice. BILLIARD TABLE MECHANIC: No focal deficits; alert and oriented times three. (Aliyah Mosher [facility]) Assessment and Plan Plan ASSESSMENT: - New onset ascites, lower extremity edema. S/P US Guided paracentesis (02/15/17 )---> 2,700cc removed. Peritoneal WBC 331. RBC 281. Cx pending. - Diarrhea. 2 day hx. She started having diarrhea with 4-5 loose orangish " odd smelling" stools per day about 2 days ago. Of note, she has had multiple hospitalizations and courses of antibiotics. Will check for CDiff, stool studies. - Liver cirrhosis. 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 Cytoplasmic inclusions suggestive of Alpha 1 Antitrypsin are present as may be observed in cirrhotic livers however it is suggested that serologic studies be performed. The pathological features present in this biopsy material are different from that observed in the liver biopsy of 01/19/14. She is followed by Dr. Plummer at [facility]. She was seen earlier this month and has follow up appointment next month. - Recurrent cholangitis, biliary strictures, obstruction with abdominal pain. S/P recent ERCP with stent placement at [facility] in January. LFTs seem to be at her baseline. T. BIli 3.0, AST 118 , ALT 75, ALT 1721. - Anemia. No acute blood loss. .32.4. - Gastroparesis. Dx a few months ago - DM per attending. 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 PLAN: - 2 gram sodium diet - Lasix 20mg IV daily - Spironolactone 25mg po BID - Cont. Ceftriaxone - CBC, CMP in am - Obtain records from [facility], recent hospitalization, ERCP. Dr. Plummer - Supportive care - Further recommendations to follow based on results of above - Pt seen and examined by Dr. Batista and myself and this note is written on his behalf (Aliyah Mosher) Plan Patient was seen and examined, agree with above note, continue current care, we will try to obtain old records (Armani Batista MD) Aliyah Mosher Feb 15, 2017 15:31 Armani Batista MD Feb 16, 2017 20:24
[2017-02-15] MEDS: SPIRONOLACTONE 25 MG TAB PO SCH (17:07)
[2017-02-15] MEDS: INSULIN ASPART SUPPLEMENTAL SCALE SQ SCH (23:42)
[2017-02-16] VITALS (8 sets, daily range): BP systolic 94–110; BP diastolic 57–71; PULSE 66–83; RESP 16–19; TEMP 97.6–98.2; O2SAT 96–98
[2017-02-16] MEDS: HYDROmorphone HCL PF 1 MG/ML VIAL IV PUSH PRN ×6 (01:13→21:57)
[2017-02-16 06:12] LABS: HEMATOCRIT 27.2 % (35.0-46.0); MEAN CELL VOLUME 90.9 FL (80.0-100.0); MEAN CORPUSCULAR HEMOGLOBIN 29.6 PG (27.0-34.0); MEAN CORPUSCULAR HGB CONC 32.6 % (32.0-36.0); PLATELET COUNT 267 TH/MM3 (150-450); RED CELL DISTRIBUTION WIDTH 18.9 % (11.6-17.2); WHITE BLOOD COUNT 7.6 TH/MM3 (4.0-11.0)
[2017-02-16 06:22] LABS: INTERNATIONAL NORMALIZED RATIO 0.9 RATIO; PROTHROMBIN TIME - PATIENT 10.3 SEC (9.8-11.6)
[2017-02-16 06:37] LABS: HEMO FLAGS AUTO DIFF
[2017-02-16 06:49] LABS: ALT (GPT) 71 U/L (10-53); ANION GAP 8 MEQ/L (5-15); AST (GOT) 121 U/L (15-37); BICARBONATE 27.1 MEQ/L (21.0-32.0); BLOOD UREA NITROGEN 8 MG/DL (7-18); CHLORIDE 102 MEQ/L (98-107); GLOMERULAR FILTRATION RATE 461 ML/MIN (>89); SODIUM (NA) 137 MEQ/L (136-145)
[2017-02-16 06:51] LABS: POTASSIUM 4.4 MEQ/L (3.5-5.1)
[2017-02-16 06:57] LABS: ALKALINE PHOSPHATASE 1574 U/L (45-117); TOTAL BILIRUBIN ADULT 2.7 MG/DL (0.2-1.0)
[2017-02-16 07:34] LABS: BANDS 3 % (0-6); EOSINOPHILS 1 % (0-4); NEUTROPHIL # MANUAL DIFF 5.2 TH/MM3 (1.8-7.7); POLYS (SEG NEUTROPHILS) 66 % (16-70); WBC DIFF SAMPLE 100
[2017-02-16 07:35] LABS: PLATELET ESTIMATE SMEAR NORMAL (NORMAL); PLATELET MORPHOLOGY ENLARGED (NORMAL); SCAN/DIFF FINAL DIFF MANUAL; TARGET CELLS 1+ (NORMAL)
[2017-02-16] MEDS: INSULIN ASPART SUPPLEMENTAL SCALE SQ SCH ×4 (08:00→21:15)
[2017-02-16] MEDS ORDERED: PNEUMOCOCCAL POLYVALENT INJ 25 MCG/0.5 ML SYR IM ONE (09:00)
[2017-02-16] MEDS ORDERED: INFLUENZA VIRUS VACCINE (QUADRIVALENT) 0.5 ML SYR IM ONE (09:00)
[2017-02-16] MEDS: SPIRONOLACTONE 25 MG TAB PO SCH ×2 (09:08→18:00)
[2017-02-16] MEDS: FUROSEMIDE 20 MG/2 ML VIAL IV PUSH SCH (09:09)
[2017-02-16] MEDS: SODIUM CHLORIDE 0.9% FLUSH 10 ML FLUSH IV FLUSH SCH ×2 (09:16→20:41)
--- NOTE | 2017-02-16 14:56 | HHI.GIFU ---
Subjective Remarks Lying in bed. Reports continued diffuse abdominal pain and LE swelling. States she is tolerating her diet. No nausea or vomiting. (Margo Oviedo) Objective Vitals I&O Vital Signs Date Time Temp Pulse Resp B/P (MAP) Pulse Ox O2 Delivery O2 Flow Rate FiO2 02/16/17 12:00 97.6 69 16 98/62 (74) 97 02/16/17 11:04 21 02/16/17 08:00 98.2 70 16 106/64 (78) 96 02/16/17 04:00 70 96/64 (75) 02/16/17 00:00 97.8 72 19 94/64 (74) 97 02/15/17 20:43 Room Air 02/15/17 20:00 98.0 70 20 106/54 (71) 94 02/15/17 20:00 71 02/15/17 16:07 98.2 67 16 102/60 (74) 98 I/O 02/15/17 02/15/17 02/15/17 02/16/17 02/16/17 02/16/17 07:00 15:00 23:00 07:00 15:00 23:00 Intake Total 0 ml 420 ml 480 ml Output Total 400 ml 1200 ml Balance -400 ml 420 ml -720 ml Intake Oral 0 ml 420 ml 480 ml Output Urine Total 400 ml 1200 ml # Voids 5 # Bowel Movements 0 1 Laboratory Laboratory Tests Test 02/16/17 05:04 White Blood Count 7.6 Red Blood Count 3.00 Hemoglobin 8.9 Hematocrit 27.2 Mean Corpuscular Volume 90.9 Mean Corpuscular Hemoglobin 29.6 Mean Corpuscular Hemoglobin Concent 32.6 Red Cell Distribution Width 18.9 Platelet Count 267 Mean Platelet Volume 12.0 CBC Comment AUTO DIFF Differential Total Cells Counted 100 Neutrophils % (Manual) 66 Band Neutrophils % 3 Lymphocytes % 11 Monocytes % 19 Eosinophils % 1 Neutrophils # (Manual) 5.2 Differential Comment FINAL DIFF MANUAL Platelet Estimate NORMAL Platelet Morphology Comment ENLARGED Target Cells 1+ Prothrombin Time 10.3 Prothromb Time International Ratio 0.9 Blood Urea Nitrogen 8 Creatinine 0.17 Random Glucose 208 Total Protein 5.1 Albumin 1.4 Calcium Level 8.2 Alkaline Phosphatase 1574 Aspartate Amino Transf (AST/SGOT) 121 Alanine Aminotransferase (ALT/SGPT) 71 Total Bilirubin 2.7 Sodium Level 137 Potassium Level 4.4 Chloride Level 102 Carbon Dioxide Level 27.1 Anion Gap 8 Estimat Glomerular Filtration Rate 461 Date/Time Source Procedure Growth Status 02/14/17 21:10 Blood Peripheral Aerobic Blood Culture - Preliminary NO GROWTH IN 2 DAYS Resulted 02/14/17 21:10 Blood Peripheral Anaerobic Blood Culture - Preliminary NO GROWTH IN 2 DAYS Resulted 02/15/17 09:00 Fluid Peritoneal Fluid Gram Stain - Final Resulted 02/15/17 09:00 Fluid Peritoneal Fluid Body Fluid Culture Pending Resulted Imaging Last Impressions Cyst Biopsy Asp-Paracentesis US 02/15/17 0000 Signed Impressions: Service Date/Time: Wednesday, February 15, 2017 08:32 - CONCLUSION: Uncomplicated ultrasound guided paracentesis. Carlos Tobias MD Chest X-Ray 02/14/172041 Signed Impressions: Service Date/Time: January 21:02 - CONCLUSION: Mild consolidation and small pleural effusion of the left lung base. Mele Shelton MD Abdomen/Pelvis CT 02/14/172041 Signed Impressions: Service Date/Time: January 22:40 - CONCLUSION: 1. Moderate ascites, increased from January 14. Liver cirrhosis. Splenectomy. Interval placement of biliary stent without significant ductal dilatation.. 2. Moderate-sized left effusion increased from January 14. 3. Moderate anasarca. 4. Nonobstructing left renal calculus. Feng Rod MD Physical Exam HEENT: Normocephalic; atraumatic; no jaundice. NECK: Neck is supple. CHEST: CTA, diminished in bases CARDIAC: RRR ABDOMEN: Soft, distended, mild diffuse tenderness to light palpation; bowel sounds are present EXTREMITIES: BLE edema SKIN: Normal; no rash; no jaundice. AIRCRAFT PNEUDRAULIC SYSTEMS MECHANIC: No focal deficits; alert and oriented times three. (Margo Oviedo) Assessment and Plan Plan ASSESSMENT: - New onset ascites, lower extremity edema. S/P US Guided paracentesis (02/15/17 )---> 2,700cc removed. Peritoneal WBC 331. RBC 281. Cx pending. - Diarrhea. 2 day hx. She started having diarrhea with 4-5 loose orangish " odd smelling" stools per day about 2 days ago. Of note, she has had multiple hospitalizations and courses of antibiotics. Stool studies pending. - Liver cirrhosis. 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 Cytoplasmic inclusions suggestive of Alpha 1 Antitrypsin are present as may be observed in cirrhotic livers however it is suggested that serologic studies be performed. The pathological features present in this biopsy material are different from that observed in the liver biopsy of 01/19/14. She is followed by Dr. Plummer at [facility]. She was seen earlier this month and has follow up appointment next month. - Recurrent cholangitis, biliary strictures, obstruction with abdominal pain. S/P recent ERCP with stent placement at [facility] in January. LFTs seem to be at her baseline. T. BIli 2.7, AST 121 , ALT 71, ALK PHOS 1574 - Anemia. No acute blood loss. 10.2/32.4 (02/14), 8.9/27.2 (02/16) - Gastroparesis. Dx a few months ago - DM per attending. 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 PLAN: - 2 gram sodium diet - Lasix 20mg IV daily - Spironolactone 25mg po BID - Cont. Ceftriaxone - Await stool studies - Obtain records from [facility], recent hospitalization, ERCP. Dr. Plummer - Supportive care - Further recommendations to follow based on results of above Patient seen and examined by Dr. Batista and myself and this note is written on his behalf (Margo Oviedo) Plan Patient was seen and examined, agree with the above notes, awaiting for [facility], which seems to be doing better today, less edema in her legs, still having abdominal discomfort (Armani Batista MD) Margo Oviedo Feb 16, 2017 14:56 Armani Batista MD Feb 17, 2017 08:51
[2017-02-16] MEDS: cefTRIAXone INJ 2,000 MG in SODIUM CHLORIDE 0.9% INJ 100 ML IV SCH (15:00)
[2017-02-17] VITALS (9 sets, daily range): BP systolic 90–113; BP diastolic 52–68; PULSE 64–76; RESP 16–20; TEMP 97.4–98.1; O2SAT 94–98
[2017-02-17] MEDS: HYDROmorphone HCL PF 1 MG/ML VIAL IV PUSH PRN ×5 (02:22→21:05)
[2017-02-17] MEDS: FUROSEMIDE 20 MG/2 ML VIAL IV PUSH SCH (07:55)
[2017-02-17] MEDS: SPIRONOLACTONE 25 MG TAB PO SCH ×2 (07:56→18:25)
[2017-02-17] MEDS: INSULIN ASPART SUPPLEMENTAL SCALE SQ SCH ×4 (07:57→21:08)
[2017-02-17] MEDS: SODIUM CHLORIDE 0.9% FLUSH 10 ML FLUSH IV FLUSH SCH ×2 (09:00→21:06)
--- NOTE | 2017-02-17 09:54 | HHI.PR ---
Subjective Remarks late entry notes from 02/16 visit tolerated paracentesis still with abdominal pain complains no diarrhea Objective Vitals Vital Signs Date Time Temp Pulse Resp B/P (MAP) Pulse Ox O2 Delivery O2 Flow Rate FiO2 02/17/17 08:07 97.5 76 16 102/68 (79) 94 02/17/17 04:00 98.1 74 20 105/65 (78) 95 02/17/17 02:21 113/58 (76) 02/17/17 00:00 97.7 74 18 90/59 (69) 96 02/16/17 21:58 107/71 (83) 02/16/17 20:45 98.0 68 18 94/57 (69) 97 02/16/17 20:40 Room Air 02/16/17 20:00 66 02/16/17 16:00 98.0 71 16 110/62 (78) 98 02/16/17 12:00 97.6 69 16 98/62 (74) 97 02/16/17 11:04 21 I/O 02/16/17 02/16/17 02/16/17 02/17/17 02/17/17 02/17/17 07:00 15:00 23:00 07:00 15:00 23:00 Intake Total 480 ml 1060 ml Output Total 1200 ml Balance -720 ml 1060 ml Intake Oral 480 ml 960 ml IV Total 100 ml Output Urine Total 1200 ml # Voids 5 4 # Bowel Movements 1 0 Result Diagram: 02/16/17 0504 02/16/17 0504 Imaging Last Impressions Cyst Biopsy Asp-Paracentesis US 02/15/17 0000 Signed Impressions: Service Date/Time: Wednesday, February 15, 2017 08:32 - CONCLUSION: Uncomplicated ultrasound guided paracentesis. Carlos Tobias MD Chest X-Ray 02/14/172041 Signed Impressions: Service Date/Time: January 21:02 - CONCLUSION: Mild consolidation and small pleural effusion of the left lung base. Mele Shelton MD Abdomen/Pelvis CT 02/14/172041 Signed Impressions: Service Date/Time: January 22:40 - CONCLUSION: 1. Moderate ascites, increased from January 14. Liver cirrhosis. Splenectomy. Interval placement of biliary stent without significant ductal dilatation.. 2. Moderate-sized left effusion increased from January 14. 3. Moderate anasarca. 4. Nonobstructing left renal calculus. 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 Ascites due to chronic cirrhosis from sclerosing cholangitis S/P Paracentesis- 2.9 L out- fluid + neutrophils R/P SBP- ff fluid studies - on IV antibiotics start on Lasix 20 mg IV daily continue on Aldactone 25 mg po bid Diarrhea, recent hospitalization with antibiotic use -Check c diff- negative DM, chronic, uncontrolled -Accu checks AC/Hs start diet DVT prophylaxis: Eleno Rhoades MD Feb 17, 2017 09:54
--- NOTE | 2017-02-17 10:11 | HHI.PR ---
Subjective Remarks tolerating po well states still with some loose stools- yellow green, no melena still complains of epigastric pain, no nausea or vomiting Objective Vitals Vital Signs Date Time Temp Pulse Resp B/P (MAP) Pulse Ox O2 Delivery O2 Flow Rate FiO2 02/17/17 08:07 97.5 76 16 102/68 (79) 94 02/17/17 04:00 98.1 74 20 105/65 (78) 95 02/17/17 02:21 113/58 (76) 02/17/17 00:00 97.7 74 18 90/59 (69) 96 02/16/17 21:58 107/71 (83) 02/16/17 20:45 98.0 68 18 94/57 (69) 97 02/16/17 20:40 Room Air 02/16/17 20:00 66 02/16/17 16:00 98.0 71 16 110/62 (78) 98 02/16/17 12:00 97.6 69 16 98/62 (74) 97 02/16/17 11:04 21 I/O 02/16/17 02/16/17 02/16/17 02/17/17 02/17/17 02/17/17 07:00 15:00 23:00 07:00 15:00 23:00 Intake Total 480 ml 1060 ml Output Total 1200 ml Balance -720 ml 1060 ml Intake Oral 480 ml 960 ml IV Total 100 ml Output Urine Total 1200 ml # Voids 5 4 # Bowel Movements 1 0 Result Diagram: 02/16/17 0504 02/16/17 0504 Imaging Last Impressions Cyst Biopsy Asp-Paracentesis US 02/15/17 0000 Signed Impressions: Service Date/Time: Wednesday, February 15, 2017 08:32 - CONCLUSION: Uncomplicated ultrasound guided paracentesis. Carlos Tobias MD Chest X-Ray 02/14/172041 Signed Impressions: Service Date/Time: January 21:02 - CONCLUSION: Mild consolidation and small pleural effusion of the left lung base. Mele Shelton MD Abdomen/Pelvis CT 02/14/172041 Signed Impressions: Service Date/Time: January 22:40 - CONCLUSION: 1. Moderate ascites, increased from January 14. Liver cirrhosis. Splenectomy. Interval placement of biliary stent without significant ductal dilatation.. 2. Moderate-sized left effusion increased from January 14. 3. Moderate anasarca. 4. Nonobstructing left renal calculus. 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 Ascites due to chronic cirrhosis from sclerosing cholangitis History of Kebsiella sepsis S/P Paracentesis- 2.9 L out- fluid + neutrophils- 02/15 R/P SBP + WBC on fluid, culture negative so far. NO leukocytosis on CBC DC Ceftriaxone. Reviewed previous admissions- was resistant to it change to Zosyn 4.5 gm IV q 6 GI ff. ID consult for recommendation- need for continuation of antibiotics -Dilaudid 0.2 mg IV for pain management- patient asks for it RTC - Aldactone 25 mg po bid -started on Lsix 20 mg IV daily -weigh patient daily - monitor - for need of repeat paracentesis Diarrhea, recent hospitalization with antibiotic use -Check c diff- d./w patient to call nurse for specimen when she have BM DM, chronic, uncontrolled -Accu checks AC/Hs started on diet start on Insulin standing- (as OP on Lantus hs start levemer here 5 units hs DVT prophylaxis: SCDs patient up and ambulating daily- 2-3x a day in her room Eleno Patel MD Feb 17, 2017 10:11
--- NOTE | 2017-02-17 12:02 | HHI.GIFU ---
Subjective Remarks Have not received records from [facility]. Resting in bed in no distress. Swelling in ble, abdomen much improves. Tolerating diet. Still with some mid abdominal discomfort. (Aliyah Mosher) Objective Vitals I&O Vital Signs Date Time Temp Pulse Resp B/P (MAP) Pulse Ox O2 Delivery O2 Flow Rate FiO2 02/17/17 09:00 Room Air 02/17/17 08:07 97.5 76 16 102/68 (79) 94 02/17/17 04:00 98.1 74 20 105/65 (78) 95 02/17/17 02:21 113/58 (76) 02/17/17 00:00 97.7 74 18 90/59 (69) 96 02/16/17 21:58 107/71 (83) 02/16/17 20:45 98.0 68 18 94/57 (69) 97 02/16/17 20:40 Room Air 02/16/17 20:00 66 02/16/17 16:00 98.0 71 16 110/62 (78) 98 02/16/17 12:00 97.6 69 16 98/62 (74) 97 I/O 02/16/17 02/16/17 02/16/17 02/17/17 02/17/17 02/17/17 07:00 15:00 23:00 07:00 15:00 23:00 Intake Total 480 ml 1060 ml Output Total 1200 ml Balance -720 ml 1060 ml Intake Oral 480 ml 960 ml IV Total 100 ml Output Urine Total 1200 ml # Voids 5 4 # Bowel Movements 1 0 Laboratory Date/Time Source Procedure Growth Status 02/14/17 21:10 Blood Peripheral Aerobic Blood Culture - Preliminary NO GROWTH IN 3 DAYS Resulted 02/14/17 21:10 Blood Peripheral Anaerobic Blood Culture - Preliminary NO GROWTH IN 3 DAYS Resulted 02/15/17 09:00 Fluid Peritoneal Fluid Gram Stain - Final Resulted 02/15/17 09:00 Fluid Peritoneal Fluid Body Fluid Culture - Preliminary NO GROWTH IN 48 HOURS. Resulted Imaging Last Impressions Cyst Biopsy Asp-Paracentesis US 02/15/17 0000 Signed Impressions: Service Date/Time: Wednesday, February 15, 2017 08:32 - CONCLUSION: Uncomplicated ultrasound guided paracentesis. Carlos Tobias MD Chest X-Ray 02/14/172041 Signed Impressions: Service Date/Time: January 21:02 - CONCLUSION: Mild consolidation and small pleural effusion of the left lung base. Mele Shelton MD Abdomen/Pelvis CT 02/14/172041 Signed Impressions: Service Date/Time: January 22:40 - CONCLUSION: 1. Moderate ascites, increased from January 14. Liver cirrhosis. Splenectomy. Interval placement of biliary stent without significant ductal dilatation.. 2. Moderate-sized left effusion increased from January 14. 3. Moderate anasarca. 4. Nonobstructing left renal calculus. Feng Rod MD Physical Exam HEENT: Normocephalic; atraumatic; no jaundice. NECK: Neck is supple. CHEST: CTA, diminished in bases CARDIAC: RRR ABDOMEN: Soft, distended, mild diffuse tenderness to light palpation; bowel sounds are present EXTREMITIES: Mild BLE edema (much improved) SKIN: Normal; no rash; no jaundice. 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 (Aliyah MosherP) Assessment and Plan Plan ASSESSMENT: - New onset ascites, lower extremity edema. S/P US Guided paracentesis (02/15/17 )---> 2,700cc removed. Peritoneal WBC 331. RBC 281. Cx no growth 48 hours. Much improved clinically. Lasix, Spironolactone, Ceftriaxone. - Diarrhea. 2 day hx. She started having diarrhea with 4-5 loose orangish " odd smelling" stools per day about 2 days ago. Of note, she has had multiple hospitalizations and courses of antibiotics. CDiff, stool studies not sent yet. Improved. - Liver cirrhosis. 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 Cytoplasmic inclusions suggestive of Alpha 1 Antitrypsin are present as may be observed in cirrhotic livers however it is suggested that serologic studies be performed. The pathological features present in this biopsy material are different from that observed in the liver biopsy of 01/19/14. She is followed by Dr. Plummer at [facility]. She was seen earlier this month and has follow up appointment next month. - Recurrent cholangitis, biliary strictures, obstruction with abdominal pain. S/P recent ERCP with stent placement at [facility] in January. LFTs seem to be at her baseline. LFTs stable- T. Bili 2.7, 121, 71, 1574. This seems to be at her baseline. Awaiting records from [facility]- has not arrived yet. - Anemia, drop in hgb. No acute blood loss. 10.2/32.4---> 8.9/27.2 with no obvious blood loss. Will recheck for today. - Gastroparesis. Dx a few months ago, not having n/v at this time. Tolerating diet. - DM per attending. 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 PLAN: - 2 gram sodium diet - Lasix 20mg IV daily - Spironolactone 25mg po BID - Cont. Ceftriaxone - CBC today - Hemoccult stool - CBC, CMP in am - Await records from [facility], recent hospitalization, ERCP. Dr. Plummer - Supportive care - Further recommendations to follow based on results of above - Pt seen and examined by Dr. Batista and myself and this note is written on his behalf (Aliyah Mosher) Plan Patient was seen and examined, agree with above Notes, we will check ultrasound to rule out residual ascites (Armani Batista MD) Aliyah Mosher Feb 17, 2017 12:02 Armani Batista MD Feb 17, 2017 17:44
[2017-02-17 13:05] LABS: HEMATOCRIT 32.3 % (35.0-46.0); MEAN CELL VOLUME 90.5 FL (80.0-100.0); PLATELET COUNT 334 TH/MM3 (150-450); RED BLOOD COUNT 3.57 MIL/MM3 (4.00-5.30); WHITE BLOOD COUNT 9.2 TH/MM3 (4.0-11.0)
[2017-02-17 13:06] LABS: HEMO FLAGS AUTO DIFF
[2017-02-17 13:35] LABS: NEUTROPHIL # MANUAL DIFF 8.4 TH/MM3 (1.8-7.7); PLATELET ESTIMATE SMEAR NORMAL (NORMAL); PLATELET MORPHOLOGY NORMAL (NORMAL); POLYS (SEG NEUTROPHILS) 91 % (16-70); SCAN/DIFF FINAL DIFF MANUAL; TARGET CELLS 2+ (NORMAL); WBC DIFF SAMPLE 100
[2017-02-17] MEDS: cefTRIAXone INJ 2,000 MG in SODIUM CHLORIDE 0.9% INJ 100 ML IV SCH (16:10)
[2017-02-17] MEDS: PIPERACIL-TAZO 4.5 GM PREMIX 100 ML IV SCH ×2 (18:25→22:33)
[2017-02-17] MEDS: INSULIN DETEMIR 100 UNITS/ML VIAL SQ SCH (21:07)
[2017-02-18] VITALS (8 sets, daily range): BP systolic 97–106; BP diastolic 61–67; PULSE 58–87; RESP 16–18; TEMP 97.9–98.4; O2SAT 95–97
[2017-02-18] MEDS: HYDROmorphone HCL PF 1 MG/ML VIAL IV PUSH PRN ×6 (01:20→23:15)
[2017-02-18] MEDS: PIPERACIL-TAZO 4.5 GM PREMIX 100 ML IV SCH ×4 (05:17→23:15)
[2017-02-18] MEDS: FUROSEMIDE 20 MG/2 ML VIAL IV PUSH SCH (08:34)
[2017-02-18] MEDS: SPIRONOLACTONE 25 MG TAB PO SCH ×2 (08:34→17:09)
[2017-02-18] MEDS: SODIUM CHLORIDE 0.9% FLUSH 10 ML FLUSH IV FLUSH SCH ×2 (08:35→22:10)
[2017-02-18] MEDS: INSULIN ASPART SUPPLEMENTAL SCALE SQ SCH ×4 (08:35→22:11)
[2017-02-18 10:24] LABS: HEMATOCRIT 32.2 % (35.0-46.0); MEAN CELL VOLUME 90.7 FL (80.0-100.0); MEAN CORPUSCULAR HEMOGLOBIN 29.4 PG (27.0-34.0); MEAN CORPUSCULAR HGB CONC 32.4 % (32.0-36.0); PLATELET COUNT 327 TH/MM3 (150-450); RED BLOOD COUNT 3.56 MIL/MM3 (4.00-5.30); RED CELL DISTRIBUTION WIDTH 19.3 % (11.6-17.2); WHITE BLOOD COUNT 7.8 TH/MM3 (4.0-11.0)
[2017-02-18 10:35] LABS: HEMO FLAGS AUTO DIFF
[2017-02-18 10:43] LABS: ALT (GPT) 77 U/L (10-53); ANION GAP 8 MEQ/L (5-15); AST (GOT) 137 U/L (15-37); BICARBONATE 25.4 MEQ/L (21.0-32.0); BLOOD UREA NITROGEN 10 MG/DL (7-18); CHLORIDE 105 MEQ/L (98-107); GLOMERULAR FILTRATION RATE 296 ML/MIN (>89); POTASSIUM 3.2 MEQ/L (3.5-5.1); SODIUM (NA) 138 MEQ/L (136-145)
--- NOTE | 2017-02-18 10:58 | HHI.PR ---
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 She states she was so weak her friend had to help her get around. She does have an appointment at [facility] for evaluation for a transplant list. seen in her bedroom no complaint status post paracentesis GI specialist following. Objective Vital Signs Date Time Temp Pulse Resp B/P (MAP) Pulse Ox O2 Delivery O2 Flow Rate FiO2 02/18/17 09:45 98.0 87 16 106/64 (78) 97 02/18/17 08:47 98.3 71 16 103/65 (78) 96 02/18/17 08:09 58 02/18/17 08:00 Room Air 02/18/17 04:00 Room Air 02/18/17 04:00 98.4 64 18 101/62 (75) 95 02/18/17 02:20 18 02/18/17 00:00 98.1 76 17 99/63 (75) 96 02/18/17 00:00 Room Air 02/17/17 21:10 Room Air 02/17/17 20:01 69 02/17/17 20:00 97.4 64 16 102/52 (69) 98 02/17/17 16:07 97.6 65 16 98/54 (69) 96 02/17/17 12:07 97.6 64 16 99/58 (72) 96 I/O 02/17/17 02/17/17 02/17/17 02/18/17 02/18/17 02/18/17 07:00 15:00 23:00 07:00 15:00 23:00 Intake Total 560 ml 680 ml Output Total 1800 ml Balance 560 ml -1120 ml Intake Oral 360 ml 480 ml IV Total 200 ml 200 ml Output Urine Total 1800 ml # Voids 4 6 # Bowel Movements 0 1 Result Diagram: 02/18/17 0956 02/18/17 0956 Imaging Last Impressions Cyst Biopsy Asp-Paracentesis US 02/15/17 0000 Signed Impressions: Service Date/Time: Wednesday, February 15, 2017 08:32 - CONCLUSION: Uncomplicated ultrasound guided paracentesis. Carlos Tobias MD Chest X-Ray 02/14/172041 Signed Impressions: Service Date/Time: January 21:02 - CONCLUSION: Mild consolidation and small pleural effusion of the left lung base. Mele Shelton MD Abdomen/Pelvis CT 02/14/172041 Signed Impressions: Service Date/Time: January 22:40 - CONCLUSION: 1. Moderate ascites, increased from January 14. Liver cirrhosis. Splenectomy. Interval placement of biliary stent without significant ductal dilatation.. 2. Moderate-sized left effusion increased from January 14. 3. Moderate anasarca. 4. Nonobstructing left renal calculus. Feng Rod MD Procedures 02/15 Paracentesis. Other Results Laboratory Tests Test 02/14/17 21:10 02/14/17 23:01 02/14/17 23:20 02/15/17 09:00 Activated Partial Thromboplast Time 23.9 SEC Lactic Acid Level 0.4 mmol/L Blood Urea Nitrogen 9 MG/DL Creatinine 0.24 MG/DL Random Glucose 347 MG/DL Total Protein 5.6 GM/DL Albumin 1.5 GM/DL Calcium Level 8.1 MG/DL Magnesium Level 1.6 MG/DL Alkaline Phosphatase 1721 U/L Aspartate Amino Transf (AST/SGOT) 118 U/L Alanine Aminotransferase (ALT/SGPT) 75 U/L Total Bilirubin 3.0 MG/DL Sodium Level 135 MEQ/L Potassium Level 3.9 MEQ/L Chloride Level 104 MEQ/L Carbon Dioxide Level 24.7 MEQ/L Ammonia LESS THAN 10 MCMOL/L Lipase 137 U/L Myelocytes 1 % Kelly-[place] Bodies PRESENT Urine Color YELLOW Urine Turbidity CLEAR Urine pH 7.5 Urine Specific [place] 1.034 Urine Protein NEG mg/dL Urine Glucose (UA) 1000 mg/dL Urine Ketones NEG mg/dL Urine Occult Blood NEG Urine Nitrite NEG Urine Bilirubin SMALL Urine Urobilinogen LESS THAN 2.0 MG/DL Urine Leukocyte Esterase NEG Urine RBC 2 /hpf Urine WBC 4 /hpf Urine Squamous Epithelial Cells 4 /hpf Urine Bacteria RARE /hpf Microscopic Urinalysis Comment CULT NOT INDICATED Peritoneal Fluid WBC 331 /MM3 Peritoneal Fluid RBC 281 /MM3 Peritoneal Fluid Neutrophils 5 % Peritoneal Fluid Lymphocytes 29 % Peritoneal Fluid Monocytes 1 % Peritoneal Fluid Histiocytes 44 % Peritoneal Fluid Mesothelial Cells 21 % Test 02/16/17 05:04 02/18/17 09:56 02/18/17 13:20 Prothrombin Time 10.3 SEC Prothromb Time International Ratio 0.9 RATIO White Blood Count 7.8 TH/MM3 Red Blood Count 3.56 MIL/MM3 Hemoglobin 10.4 GM/DL Hematocrit 32.2 % Mean Corpuscular Volume 90.7 FL Mean Corpuscular Hemoglobin 29.4 PG Mean Corpuscular Hemoglobin Concent 32.4 % Red Cell Distribution Width 19.3 % Platelet Count 327 TH/MM3 Mean Platelet Volume 11.2 FL CBC Comment AUTO DIFF Differential Total Cells Counted 100 Neutrophils % (Manual) 67 % Band Neutrophils % 10 % Lymphocytes % 10 % Monocytes % 10 % Eosinophils % 3 % Neutrophils # (Manual) 6.0 TH/MM3 Differential Comment FINAL DIFF MANUAL Platelet Estimate NORMAL Platelet Morphology Comment ENLARGED Target Cells 2+ Blood Urea Nitrogen 10 MG/DL Creatinine 0.25 MG/DL Random Glucose 177 MG/DL Total Protein 5.7 GM/DL Albumin 1.7 GM/DL Calcium Level 8.0 MG/DL Alkaline Phosphatase 1678 U/L Aspartate Amino Transf (AST/SGOT) 137 U/L Alanine Aminotransferase (ALT/SGPT) 77 U/L Total Bilirubin 2.5 MG/DL Sodium Level 138 MEQ/L Potassium Level 3.2 MEQ/L Chloride Level 105 MEQ/L Carbon Dioxide Level 25.4 MEQ/L Anion Gap 8 MEQ/L Estimat Glomerular Filtration Rate 296 ML/MIN Stool C. difficile Toxin (PCR) NEGATIVE Stl C. difficile Toxin Epiderm 027 PRESUMPTIVE NEGATIVE Objective Remarks GENERAL: Alert and oriented x 3. no acute distress. SKIN: Warm and dry. HEAD: Atraumatic. Normocephalic. EYES: Pupils equal and round. scleral icteric. ENT: No nasal bleeding or discharge. Mucous membranes pink and moist. NECK: Trachea midline. No JVD. CARDIOVASCULAR: Regular rate and rhythm. RESPIRATORY: No accessory muscle use. Clear to auscultation. GASTROINTESTINAL: Soft and mild distention. MUSCULOSKELETAL: Extremities without clubbing, cyanosis, or edema. NEUROLOGICAL: Awake and alert. No obvious cranial nerve deficits. PSYCHIATRIC: Appropriate mood and affect. Medications and IVs Current Medications Medications (Trade) Dose Ordered Sig/Celso Route Start Time Stop Time Status Last Admin (NS Flush) 2 ml UNSCH PRN IV FLUSH 02/15/17 01:00 (NS Flush) 2 ml BID IV FLUSH 02/15/17 09:00 02/18/17 08:35 (Narcan Inj) 0.4 mg UNSCH PRN IV PUSH 02/15/17 01:00 (Dilaudid Pf Inj) 0.2 mg Q4H PRN IV PUSH 02/15/17 02:15 02/18/17 14:48 (D50w (Vial) Inj) 50 ml UNSCH PRN IV PUSH 02/15/17 03:45 (Glucagon Inj) 1 mg UNSCH PRN OTHER 02/15/17 03:45 (Aldactone) 25 mg BID@09,18 PO 02/15/17 18:00 02/18/17 08:34 (Lasix Inj) 20 mg DAILY IV PUSH 02/16/17 09:00 02/18/17 08:34 (NovoLOG SUPPLEMENTAL SCALE) 1 ACHS SLIDING SCALE SQ 02/16/17 08:00 02/18/17 13:23 (Levemir Inj) 5 units HS SQ 02/17/17 21:00 02/17/17 21:07 Piperacillin Sod/ Tazobactam Sod 100 ml @ 200 mls/hr Q6H IV 02/17/17 17:00 02/18/17 10:03 A/P Assessment and Plan 1. Sclerosing Cholangitis with secondary Cirrhosis, S/P US Guided paracentesis (02/15/17)---> 2,700cc removed. Peritoneal WBC 331.RBC 281. Cx no growth 48 hours. Much improved clinically. Lasix, Spironolactone, Ceftriaxone. Liver Biopsy revealed severe chronic hepatitis with bridging fibrosis and cirrhosis (grade 2/4; stage 3-4/4) with associated bile stasis , fatty change and histopathologic features most suggestive of drug induced liver disease (including alcohol)- no evidence of primary biliary cirrhosis or primary sclerosing cholangitis in this biopsy. Cytoplasmic inclusions suggestive of Alpha 1 Antitrypsin are present as may be observed in cirrhotic livers however it is suggested that serologic studies be performed. The pathological features present in this biopsy material are different from that observed in the liver biopsy of 01/19/14. She is followed by Dr. Plummer at [facility]. She was seen earlier this month and has follow up appointment next month. S/P recent ERCP with stent placement at [facility] in January. LFTs seem to be at her baseline. LFTs stable- T. Bili 2.7, 121, 71, 1574. Ceftriaxone discontinued changed to Zosyn, ID consulted by Doctor Patel, Negative culture, Zosyn discontinued by ID specialist. 2. Diarrhea, recent hospitalization with antibiotic use -Check c diff- d./w patient to call nurse for specimen when she have BM 3. DM, chronic, better control. -Accu checks AC/Hs slidkng scale and Long lasting insulin. 4. electrolyte derangement replaced. DVT prophylaxis: SCDs = Discharge Planning Once cleared by GI specialist. Feliberto Stephenson MD Feb 18, 2017 10:58
[2017-02-18 10:59] LABS: ALKALINE PHOSPHATASE 1678 U/L (45-117); TOTAL BILIRUBIN ADULT 2.5 MG/DL (0.2-1.0)
--- NOTE | 2017-02-18 11:37 | PD.ID.CON ---
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 Liver cirrhosis. Splenectomy. Interval placement of biliary stent without significant ductal dilatation She is afebrile with normal WBC studiess and her BC are negative 2/2 @ 4 days She presented with ascites and paracenthesis was perforemed Her ANC is 16.5 anfd negative culture which essentially rules out SBP Review of Systems Gastrointestinal: COMPLAINS OF: Abdominal pain, Diarrhea, Nausea, Vomiting Except as stated in HPI: all other systems reviewed are Neg Past Family Social History Allergies: Coded Allergies: MRI PRECAUTION (Verified Allergy, Severe, NAUSEA; PER PATIENT IT IS A GADOLINIUM ALLERGY KMD 11/25/12, 02/14/17) gadobenic acid (Unverified Allergy, Severe, BREATHING PROBLEMS, N/V,CHILLS , 02/14/17) gadodiamide (Unverified Allergy, Severe, BREATHING PROBLEMS, N/V,CHILLS, ) gadoteridol (Unverified Allergy, Severe, BREATHING PROBLEMS, N/V,CHILLS, ) ketorolac (Unverified Allergy, Severe, Shortness of Breath, 02/14/17) morphine (Unverified Allergy, Severe, BREATHING PROBLEMS, 02/14/17) Past Medical History Biliary obstruction secondary to strictures Gastroparesis Sclerosing cholangitis Non-Hodgkin's lymphoma Diabetes Ureterolithiasis MRSA and wound Liver Mass. Past Surgical History Multiple ERCP with stent placement Splenectomy Biliary drain Liver biopsy Shockwave lithotripsy Biliary drain placement Active Ordered Medications Medications where reviewed in EMR Antibiotics Include: CFTX Family History reviewed [place] disaeas, CVA Social History No Tobacco. No ETOH. No Illicit Drugs. Physical Exam Vital Signs Vital Signs Date Time Temp Pulse Resp B/P (MAP) Pulse Ox O2 Delivery O2 Flow Rate FiO2 02/18/17 09:45 98.0 87 16 106/64 (78) 97 02/18/17 08:47 98.3 71 16 103/65 (78) 96 02/18/17 08:09 58 02/18/17 08:00 Room Air 02/18/17 04:00 Room Air 02/18/17 04:00 98.4 64 18 101/62 (75) 95 02/18/17 02:20 18 02/18/17 00:00 98.1 76 17 99/63 (75) 96 02/18/17 00:00 Room Air 02/17/17 21:10 Room Air 02/17/17 20:01 69 02/17/17 20:00 97.4 64 16 102/52 (69) 98 02/17/17 16:07 97.6 65 16 98/54 (69) 96 02/17/17 12:07 97.6 64 16 99/58 (72) 96 Physical Exam CONSTITUTIONAL/GENERAL: This is a thin middle aged patient, in no apparent distress. TUBES/LINES/DRAINS: SKIN: + minimally apparent jaundice, rashes, or lesions. Skin temperature appropriate. Not diaphoretic. HEAD: Atraumatic. Normocephalic. EYES: Pupils equal and round and reactive. Extraocular motions intact. + very mild scleral icterus. No injection or drainage. Fundi not examined. ENT: Hearing grossly normal. Nose without bleeding or purulent drainage. Oral mucosae without visible erythema, exudates, masses, or lesions. NECK: Trachea midline. Supple, nontender. CARDIOVASCULAR: Regular rate and rhythm without murmurs, gallops, or rubs. No JVD. Peripheral pulses symmetric. RESPIRATORY/CHEST: Symmetric, unlabored respirations. Clear to auscultation. Breath sounds equal bilaterally. No wheezes, rales, or rhonchi. GASTROINTESTINAL: Abdomen soft, + quite tender with some guarding RUQ, nondistended. No hepato-splenomegaly, or palpable masses. No guarding. Bowel sounds present. MUSCULOSKELETAL: Extremities without clubbing, cyanosis, or edema. No joint tenderness or effusion noted. No calf tenderness. No mottling or clubbing. LYMPHATICS: No palpable cervical or supraclavicular adenopathy. NEUROLOGICAL: Awake and alert. Motor and sensory grossly within normal limits. Follows commands. Clear speech. Moves all extremities. PSYCHIATRIC: No obvious anxiety/depression. no apparent hallucinations or other psychotic thought process. Laboratory Laboratory Tests Test 02/17/17 12:40 02/18/17 09:56 White Blood Count 9.2 7.8 Red Blood Count 3.57 3.56 Hemoglobin 10.3 10.4 Hematocrit 32.3 32.2 Mean Corpuscular Volume 90.5 90.7 Mean Corpuscular Hemoglobin 29.0 29.4 Mean Corpuscular Hemoglobin Concent 32.0 32.4 Red Cell Distribution Width 19.0 19.3 Platelet Count 334 327 Mean Platelet Volume 11.4 11.2 CBC Comment AUTO DIFF AUTO DIFF Differential Total Cells Counted 100 Neutrophils % (Manual) 91 Lymphocytes % 6 Monocytes % 3 Neutrophils # (Manual) 8.4 Differential Comment FINAL DIFF MANUAL Platelet Estimate NORMAL Platelet Morphology Comment NORMAL Target Cells 2+ Blood Urea Nitrogen 10 Creatinine 0.25 Random Glucose 177 Total Protein 5.7 Albumin 1.7 Calcium Level 8.0 Alkaline Phosphatase 1678 Aspartate Amino Transf (AST/SGOT) 137 Alanine Aminotransferase (ALT/SGPT) 77 Total Bilirubin 2.5 Sodium Level 138 Potassium Level 3.2 Chloride Level 105 Carbon Dioxide Level 25.4 Anion Gap 8 Estimat Glomerular Filtration Rate 296 Date/Time Source Procedure Growth Status 02/14/17 21:10 Blood Peripheral Aerobic Blood Culture - Preliminary NO GROWTH IN 4 DAYS Resulted 02/14/17 21:10 Blood Peripheral Anaerobic Blood Culture - Preliminary NO GROWTH IN 4 DAYS Resulted 02/15/17 09:00 Fluid Peritoneal Fluid Gram Stain - Final Complete 02/15/17 09:00 Fluid Peritoneal Fluid Body Fluid Culture - Final NO GROWTH IN 72 HRS.--AEROBICALLY OR ... Complete Result Diagram: 02/18/1756 02/18/1756 Imaging Last Impressions Cyst Biopsy Asp-Paracentesis US 02/15/17 0000 Signed Impressions: Service Date/Time: Wednesday, February 15, 2017 08:32 - CONCLUSION: Uncomplicated ultrasound guided paracentesis. Carlos Tobias MD Chest X-Ray 02/14/172041 Signed Impressions: Service Date/Time: January 21:02 - CONCLUSION: Mild consolidation and small pleural effusion of the left lung base. Mele Shelton MD Abdomen/Pelvis CT 02/14/172041 Signed Impressions: Service Date/Time: January 22:40 - CONCLUSION: 1. Moderate ascites, increased from January 14. Liver cirrhosis. Splenectomy. Interval placement of biliary stent without significant ductal dilatation.. 2. Moderate-sized left effusion increased from January 14. 3. Moderate anasarca. 4. Nonobstructing left renal calculus. Feng Rod MD Assessment and Plan Assessment and Plan PSC Recurrent cholangitis, though this time I doubt it ( no fever, no chills, negatve clx, no leukocytosis, basline LFTs) Diarrhea, h/o abx exposure Ascites, not cw SBP Dc zosyedwin ro C.diff Christiane Jackson MD Feb 18, 2017 11:37
[2017-02-18 11:42] LABS: BANDS 10 % (0-6); EOSINOPHILS 3 % (0-4); PLATELET ESTIMATE SMEAR NORMAL (NORMAL); PLATELET MORPHOLOGY ENLARGED (NORMAL); POLYS (SEG NEUTROPHILS) 67 % (16-70); SCAN/DIFF FINAL DIFF MANUAL; TARGET CELLS 2+ (NORMAL); WBC DIFF SAMPLE 100
[2017-02-18 15:20] LABS: C. DIFF EPI 027 PRESUMPTIVE NEGATIVE (NEGATIVE)
[2017-02-18] MEDS ORDERED: POTASSIUM CHLORIDE 20 MEQ CONTROLLED RELEASE TAB PO ONE ×2 (16:45→18:00)
[2017-02-18] MEDS: INSULIN DETEMIR 100 UNITS/ML VIAL SQ SCH (22:10)
[2017-02-19] VITALS (8 sets, daily range): BP systolic 94–120; BP diastolic 57–69; PULSE 62–84; RESP 18–20; TEMP 97.3–97.9; O2SAT 96–99
[2017-02-19] MEDS: HYDROmorphone HCL PF 1 MG/ML VIAL IV PUSH PRN ×5 (03:18→20:53)
[2017-02-19] MEDS: PIPERACIL-TAZO 4.5 GM PREMIX 100 ML IV SCH ×2 (05:22→08:32)
[2017-02-19] MEDS: FUROSEMIDE 20 MG/2 ML VIAL IV PUSH SCH (08:32)
[2017-02-19] MEDS: SPIRONOLACTONE 25 MG TAB PO SCH ×2 (08:32→16:57)
[2017-02-19] MEDS: SODIUM CHLORIDE 0.9% FLUSH 10 ML FLUSH IV FLUSH SCH ×2 (08:32→20:15)
[2017-02-19] MEDS: INSULIN ASPART SUPPLEMENTAL SCALE SQ SCH ×4 (08:33→20:15)
--- NOTE | 2017-02-19 16:15 | HHI.PR ---
Addendum to Inpatient Note Additional Information final clx are negative will dc abx Christiane Jackson MD Feb 19, 2017 16:15
--- NOTE | 2017-02-19 16:53 | HHI.PR ---
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 She states she was so weak her friend had to help her get around. She does have an appointment at [facility] for evaluation for a transplant list. seen in her bedroom no complaint status post paracentesis GI specialist following. Seen in her room no new issues, awaiting final recommendations by GI specialist and ID for discharge, as per ID specialist okay to discharge no need for further antibiotics. No nausea, vomit or diarrhea. Objective Vital Signs Date Time Temp Pulse Resp B/P (MAP) Pulse Ox O2 Delivery O2 Flow Rate FiO2 02/19/17 12:00 97.3 73 20 102/69 (80) 96 02/19/17 08:44 62 02/19/17 08:44 Room Air 02/19/17 08:00 97.5 70 20 120/66 (84) 97 02/19/17 04:00 Room Air 02/19/17 04:00 97.5 74 18 102/62 (75) 97 02/19/17 00:00 Room Air 02/19/17 00:00 97.6 73 18 96/58 (71) 99 02/18/17 20:00 97.9 85 18 97/65 (76) 96 02/18/17 20:00 81 02/18/17 20:00 Room Air 02/18/17 17:17 98.3 77 16 104/61 (75) 97 I/O 02/18/17 02/18/17 02/18/17 02/19/17 02/19/17 02/19/17 07:00 15:00 23:00 07:00 15:00 23:00 Intake Total 680 ml 100 ml 100 ml 720 ml 100 ml Output Total 1800 ml 900 ml Balance -1120 ml -800 ml 100 ml 720 ml 100 ml Intake Oral 480 ml 720 ml IV Total 200 ml 100 ml 100 ml 100 ml Output Urine Total 1800 ml 900 ml # Voids 4 # Bowel Movements 0 Result Diagram: 02/18/1756 02/18/17955 Imaging Last Impressions Cyst Biopsy Asp-Paracentesis US 02/15/17 0000 Signed Impressions: Service Date/Time: Wednesday, February 15, 2017 08:32 - CONCLUSION: Uncomplicated ultrasound guided paracentesis. Carlos Tobias MD Chest X-Ray 02/14/172041 Signed Impressions: Service Date/Time: January 21:02 - CONCLUSION: Mild consolidation and small pleural effusion of the left lung base. Mele Shelton MD Abdomen/Pelvis CT 02/14/172041 Signed Impressions: Service Date/Time: January 22:40 - CONCLUSION: 1. Moderate ascites, increased from January 14. Liver cirrhosis. Splenectomy. Interval placement of biliary stent without significant ductal dilatation.. 2. Moderate-sized left effusion increased from January 14. 3. Moderate anasarca. 4. Nonobstructing left renal calculus. Feng Rod MD Procedures 02/15 Paracentesis. Other Results Laboratory Tests Test 02/14/17 21:10 02/14/17 23:01 02/14/17 23:20 02/15/17 09:00 Activated Partial Thromboplast Time 23.9 SEC Lactic Acid Level 0.4 mmol/L Blood Urea Nitrogen 9 MG/DL Creatinine 0.24 MG/DL Random Glucose 347 MG/DL Total Protein 5.6 GM/DL Albumin 1.5 GM/DL Calcium Level 8.1 MG/DL Magnesium Level 1.6 MG/DL Alkaline Phosphatase 1721 U/L Aspartate Amino Transf (AST/SGOT) 118 U/L Alanine Aminotransferase (ALT/SGPT) 75 U/L Total Bilirubin 3.0 MG/DL Sodium Level 135 MEQ/L Potassium Level 3.9 MEQ/L Chloride Level 104 MEQ/L Carbon Dioxide Level 24.7 MEQ/L Ammonia LESS THAN 10 MCMOL/L Lipase 137 U/L Myelocytes 1 % [place] Bodies PRESENT Urine Color YELLOW Urine Turbidity CLEAR Urine pH 7.5 Urine Specific [place] 1.034 Urine Protein NEG mg/dL Urine Glucose (UA) 1000 mg/dL Urine Ketones NEG mg/dL Urine Occult Blood NEG Urine Nitrite NEG Urine Bilirubin SMALL Urine Urobilinogen LESS THAN 2.0 MG/DL Urine Leukocyte Esterase NEG Urine RBC 2 /hpf Urine WBC 4 /hpf Urine Squamous Epithelial Cells 4 /hpf Urine Bacteria RARE /hpf Microscopic Urinalysis Comment CULT NOT INDICATED Peritoneal Fluid WBC 331 /MM3 Peritoneal Fluid RBC 281 /MM3 Peritoneal Fluid Neutrophils 5 % Peritoneal Fluid Lymphocytes 29 % Peritoneal Fluid Monocytes 1 % Peritoneal Fluid Histiocytes 44 % Peritoneal Fluid Mesothelial Cells 21 % Test 02/16/17 05:04 02/18/17 09:56 02/18/17 13:20 02/19/17 05:10 Prothrombin Time 10.3 SEC Prothromb Time International Ratio 0.9 RATIO White Blood Count 7.8 TH/MM3 Red Blood Count 3.56 MIL/MM3 Hemoglobin 10.4 GM/DL Hematocrit 32.2 % Mean Corpuscular Volume 90.7 FL Mean Corpuscular Hemoglobin 29.4 PG Mean Corpuscular Hemoglobin Concent 32.4 % Red Cell Distribution Width 19.3 % Platelet Count 327 TH/MM3 Mean Platelet Volume 11.2 FL CBC Comment AUTO DIFF Differential Total Cells Counted 100 Neutrophils % (Manual) 67 % Band Neutrophils % 10 % Lymphocytes % 10 % Monocytes % 10 % Eosinophils % 3 % Neutrophils # (Manual) 6.0 TH/MM3 Differential Comment FINAL DIFF MANUAL Platelet Estimate NORMAL Platelet Morphology Comment ENLARGED Target Cells 2+ Blood Urea Nitrogen 10 MG/DL Creatinine 0.25 MG/DL Random Glucose 177 MG/DL Total Protein 5.7 GM/DL Albumin 1.7 GM/DL Calcium Level 8.0 MG/DL Alkaline Phosphatase 1678 U/L Aspartate Amino Transf (AST/SGOT) 137 U/L Alanine Aminotransferase (ALT/SGPT) 77 U/L Total Bilirubin 2.5 MG/DL Sodium Level 138 MEQ/L Potassium Level 3.2 MEQ/L Chloride Level 105 MEQ/L Carbon Dioxide Level 25.4 MEQ/L Anion Gap 8 MEQ/L Estimat Glomerular Filtration Rate 296 ML/MIN Stool C. difficile Toxin (PCR) NEGATIVE Stl C. difficile Toxin Epiderm 027 PRESUMPTIVE NEGATIVE Fasting Glucose 215 MG/DL Objective Remarks GENERAL: Alert and oriented x 3. no acute distress. SKIN: Warm and dry. HEAD: Atraumatic. Normocephalic. EYES: Pupils equal and round. scleral icteric. ENT: No nasal bleeding or discharge. Mucous membranes pink and moist. NECK: Trachea midline. No JVD. CARDIOVASCULAR: Regular rate and rhythm. RESPIRATORY: No accessory muscle use. Clear to auscultation. GASTROINTESTINAL: Soft and mild distention. MUSCULOSKELETAL: Extremities without clubbing, cyanosis, or edema. NEUROLOGICAL: Awake and alert. No obvious cranial nerve deficits. PSYCHIATRIC: Appropriate mood and affect. Medications and IVs Current Medications Medications (Trade) Dose Ordered Sig/Celso Route Start Time Stop Time Status Last Admin (NS Flush) 2 ml UNSCH PRN IV FLUSH 02/15/17 01:00 (NS Flush) 2 ml BID IV FLUSH 02/15/17 09:00 02/19/17 08:32 (Narcan Inj) 0.4 mg UNSCH PRN IV PUSH 02/15/17 01:00 (Dilaudid Pf Inj) 0.2 mg Q4H PRN IV PUSH 02/15/17 02:15 02/19/17 12:36 (D50w (Vial) Inj) 50 ml UNSCH PRN IV PUSH 02/15/17 03:45 (Glucagon Inj) 1 mg UNSCH PRN OTHER 02/15/17 03:45 (Aldactone) 25 mg BID@09,18 PO 02/15/17 18:00 02/19/17 08:32 (Lasix Inj) 20 mg DAILY IV PUSH 02/16/17 09:00 02/19/17 08:32 (NovoLOG SUPPLEMENTAL SCALE) 1 ACHS SLIDING SCALE SQ 02/16/17 08:00 02/19/17 12:35 (Levemir Inj) 5 units HS SQ 02/17/17 21:00 02/18/17 22:10 A/P Assessment and Plan 1. Sclerosing Cholangitis with secondary Cirrhosis, S/P US Guided paracentesis (02/15/17)---> 2,700cc removed. Peritoneal WBC 331.RBC 281. Cx no growth 48 hours. Much improved clinically. Lasix, Spironolactone, Ceftriaxone. Liver Biopsy revealed severe chronic hepatitis with bridging fibrosis and cirrhosis (grade 2/4; stage 3-4/4) with associated bile stasis , fatty change and histopathologic features most suggestive of drug induced liver disease (including alcohol)- no evidence of primary biliary cirrhosis or primary sclerosing cholangitis in this biopsy. Cytoplasmic inclusions suggestive of Alpha 1 Antitrypsin are present as may be observed in cirrhotic livers however it is suggested that serologic studies be performed. The pathological features present in this biopsy material are different from that observed in the liver biopsy of 01/19/14. She is followed by Dr. Plummer at [facility]. She was seen earlier this month and has follow up appointment next month. S/P recent ERCP with stent placement at [facility] in January. LFTs seem to be at her baseline. LFTs stable- T. Bili 2.7, 121, 71, 1574. Ceftriaxone discontinued changed to Zosyn, ID consulted by Doctor Amanda, Negative culture, Zosyn discontinued by ID specialist. no need to continue antibiotics as per ID not yet cleared for discharge by GI specialist. 2. Diarrhea, recent hospitalization with antibiotic use -Check c diff- negative on no antibiotics. 3. DM, chronic, better control. -Accu checks AC/Hs slidkng scale and Long lasting insulin. 4. electrolyte derangement replaced. DVT prophylaxis: SCDs = Discharge Planning Once cleared by GI specialist. Feliberto Stephenson MD Feb 19, 2017 16:53
[2017-02-19 17:28] LABS: MAGNESIUM 1.5 MG/DL (1.5-2.5); POTASSIUM 3.5 MEQ/L (3.5-5.1)
[2017-02-19] MEDS: INSULIN DETEMIR 100 UNITS/ML VIAL SQ SCH (20:14)
[2017-02-20] VITALS (8 sets, daily range): BP systolic 94–126; BP diastolic 60–69; PULSE 65–93; RESP 18–19; TEMP 97.5–98.1; O2SAT 94–98
[2017-02-20] MEDS: HYDROmorphone HCL PF 1 MG/ML VIAL IV PUSH PRN ×6 (00:51→21:10)
[2017-02-20] MEDS: FUROSEMIDE 40 MG TAB PO SCH (09:32)
[2017-02-20] MEDS: SPIRONOLACTONE 25 MG TAB PO SCH ×2 (09:33→17:22)
[2017-02-20] MEDS: INSULIN ASPART SUPPLEMENTAL SCALE SQ SCH ×4 (09:35→21:10)
[2017-02-20] MEDS: SODIUM CHLORIDE 0.9% FLUSH 10 ML FLUSH IV FLUSH SCH ×2 (09:36→21:00)
[2017-02-20] MEDS ORDERED: POTASSIUM CHLORIDE 20 MEQ CONTROLLED RELEASE TAB PO ONE (10:00)
--- NOTE | 2017-02-20 10:01 | HHI.PR ---
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 She states she was so weak her friend had to help her get around. She does have an appointment at [facility] for evaluation for a transplant list. seen in her bedroom no complaint status post paracentesis GI specialist following. Stable no complaint, wants to go home, Records from [facility] are in Chart right now, discussed with Charge nurse will follow final recommendations by GI specialist for possible discharge later, as per ID specialist no further antibiotics, no nausea, vomit or diarrhea. Objective Vital Signs Date Time Temp Pulse Resp B/P (MAP) Pulse Ox O2 Delivery O2 Flow Rate FiO2 02/20/17 08:00 97.5 73 18 126/68 (87) 96 02/20/17 04:00 Room Air 02/20/17 03:46 97.8 67 18 106/69 (81) 97 02/20/17 00:28 97.6 70 18 103/60 (74) 96 02/20/17 00:00 Room Air 02/19/17 20:37 69 02/19/17 20:22 97.9 84 18 94/64 (74) 96 02/19/17 20:00 Room Air 02/19/17 16:00 97.9 83 20 94/57 (69) 98 02/19/17 12:00 97.3 73 20 102/69 (80) 96 I/O 02/19/17 02/19/17 02/19/17 02/20/17 02/20/17 02/20/17 07:00 15:00 23:00 07:00 15:00 23:00 Intake Total 720 ml 860 ml Output Total 1000 ml Balance 720 ml -140 ml Intake Oral 720 ml 760 ml IV Total 100 ml Output Urine Total 1000 ml # Voids 4 # Bowel Movements 0 1 Result Diagram: 02/18/17 0956 02/19/17 0414 Imaging Last Impressions Cyst Biopsy Asp-Paracentesis US 02/15/17 0000 Signed Impressions: Service Date/Time: Wednesday, February 15, 2017 08:32 - CONCLUSION: Uncomplicated ultrasound guided paracentesis. Carlos Tobias MD Chest X-Ray 02/14/172041 Signed Impressions: Service Date/Time: January 21:02 - CONCLUSION: Mild consolidation and small pleural effusion of the left lung base. Mele Shelton MD Abdomen/Pelvis CT 02/14/172041 Signed Impressions: Service Date/Time: January 22:40 - CONCLUSION: 1. Moderate ascites, increased from January 14. Liver cirrhosis. Splenectomy. Interval placement of biliary stent without significant ductal dilatation.. 2. Moderate-sized left effusion increased from January 14. 3. Moderate anasarca. 4. Nonobstructing left renal calculus. Feng Rod MD Procedures 02/15 Paracentesis. Other Results Laboratory Tests Test 02/14/17 21:10 02/14/17 23:01 02/14/17 23:20 02/15/17 09:00 Activated Partial Thromboplast Time 23.9 SEC Lactic Acid Level 0.4 mmol/L Ammonia LESS THAN 10 MCMOL/L Lipase 137 U/L Myelocytes 1 % [place] Bodies PRESENT Urine Color YELLOW Urine Turbidity CLEAR Urine pH 7.5 Urine Specific [place] 1.034 Urine Protein NEG mg/dL Urine Glucose (UA) 1000 mg/dL Urine Ketones NEG mg/dL Urine Occult Blood NEG Urine Nitrite NEG Urine Bilirubin SMALL Urine Urobilinogen LESS THAN 2.0 MG/DL Urine Leukocyte Esterase NEG Urine RBC 2 /hpf Urine WBC 4 /hpf Urine Squamous Epithelial Cells 4 /hpf Urine Bacteria RARE /hpf Microscopic Urinalysis Comment CULT NOT INDICATED Peritoneal Fluid WBC 331 /MM3 Peritoneal Fluid RBC 281 /MM3 Peritoneal Fluid Neutrophils 5 % Peritoneal Fluid Lymphocytes 29 % Peritoneal Fluid Monocytes 1 % Peritoneal Fluid Histiocytes 44 % Peritoneal Fluid Mesothelial Cells 21 % Test 02/16/17 05:04 02/18/17 09:56 02/18/17 13:20 02/19/17 04:14 Prothrombin Time 10.3 SEC Prothromb Time International Ratio 0.9 RATIO White Blood Count 7.8 TH/MM3 Red Blood Count 3.56 MIL/MM3 Hemoglobin 10.4 GM/DL Hematocrit 32.2 % Mean Corpuscular Volume 90.7 FL Mean Corpuscular Hemoglobin 29.4 PG Mean Corpuscular Hemoglobin Concent 32.4 % Red Cell Distribution Width 19.3 % Platelet Count 327 TH/MM3 Mean Platelet Volume 11.2 FL CBC Comment AUTO DIFF Differential Total Cells Counted 100 Neutrophils % (Manual) 67 % Band Neutrophils % 10 % Lymphocytes % 10 % Monocytes % 10 % Eosinophils % 3 % Neutrophils # (Manual) 6.0 TH/MM3 Differential Comment FINAL DIFF MANUAL Platelet Estimate NORMAL Platelet Morphology Comment ENLARGED Target Cells 2+ Blood Urea Nitrogen 10 MG/DL Creatinine 0.25 MG/DL Random Glucose 177 MG/DL Total Protein 5.7 GM/DL Albumin 1.7 GM/DL Calcium Level 8.0 MG/DL Alkaline Phosphatase 1678 U/L Aspartate Amino Transf (AST/SGOT) 137 U/L Alanine Aminotransferase (ALT/SGPT) 77 U/L Total Bilirubin 2.5 MG/DL Sodium Level 138 MEQ/L Potassium Level 3.2 MEQ/L 3.5 MEQ/L Chloride Level 105 MEQ/L Carbon Dioxide Level 25.4 MEQ/L Anion Gap 8 MEQ/L Estimat Glomerular Filtration Rate 296 ML/MIN Stool C. difficile Toxin (PCR) NEGATIVE Stl C. difficile Toxin Epiderm 027 PRESUMPTIVE NEGATIVE Magnesium Level 1.5 MG/DL Test 02/19/17 05:10 Fasting Glucose 215 MG/DL Objective Remarks GENERAL: Alert and oriented x 3. no acute distress. SKIN: Warm and dry. HEAD: Atraumatic. Normocephalic. EYES: Pupils equal and round. scleral icteric. ENT: No nasal bleeding or discharge. Mucous membranes pink and moist. NECK: Trachea midline. No JVD. CARDIOVASCULAR: Regular rate and rhythm. RESPIRATORY: No accessory muscle use. Clear to auscultation. GASTROINTESTINAL: Soft and mild distention. MUSCULOSKELETAL: Extremities without clubbing, cyanosis, or edema. NEUROLOGICAL: Awake and alert. No obvious cranial nerve deficits. PSYCHIATRIC: Appropriate mood and affect. Medications and IVs Current Medications Medications (Trade) Dose Ordered Sig/Celso Route Start Time Stop Time Status Last Admin (NS Flush) 2 ml UNSCH PRN IV FLUSH 02/15/17 01:00 (NS Flush) 2 ml BID IV FLUSH 02/15/17 09:00 02/20/17 09:36 (Narcan Inj) 0.4 mg UNSCH PRN IV PUSH 02/15/17 01:00 (Dilaudid Pf Inj) 0.2 mg Q4H PRN IV PUSH 02/15/17 02:15 02/20/17 09:33 (D50w (Vial) Inj) 50 ml UNSCH PRN IV PUSH 02/15/17 03:45 (Glucagon Inj) 1 mg UNSCH PRN OTHER 02/15/17 03:45 (Aldactone) 25 mg BID@09,18 PO 02/15/17 18:00 02/20/17 09:33 (NovoLOG SUPPLEMENTAL SCALE) 1 ACHS SLIDING SCALE SQ 02/16/17 08:00 02/20/17 09:35 (Levemir Inj) 5 units HS SQ 02/17/17 21:00 02/19/17 20:14 (Lasix) 40 mg DAILY PO 02/20/17 09:00 02/20/17 09:32 A/P Assessment and Plan 1. Sclerosing Cholangitis with secondary Cirrhosis, S/P US Guided paracentesis (02/15/17)---> 2,700cc removed. Peritoneal WBC 331.RBC 281. Cx no growth 48 hours. Much improved clinically. Lasix, Spironolactone, Ceftriaxone. Liver Biopsy revealed severe chronic hepatitis with bridging fibrosis and cirrhosis (grade 2/4; stage 3-4/4) with associated bile stasis , fatty change and histopathologic features most suggestive of drug induced liver disease (including alcohol)- no evidence of primary biliary cirrhosis or primary sclerosing cholangitis in this biopsy. Cytoplasmic inclusions suggestive of Alpha 1 Antitrypsin are present as may be observed in cirrhotic livers however it is suggested that serologic studies be performed. The pathological features present in this biopsy material are different from that observed in the liver biopsy of 01/19/14. She is followed by Dr. Plummer at [facility]. She was seen earlier this month and has follow up appointment next month. S/P recent ERCP with stent placement at [facility] in January. LFTs seem to be at her baseline. LFTs stable- T. Bili 2.7, 121, 71, 1574. Ceftriaxone discontinued changed to Zosyn, ID consulted by Doctor Patel, Negative culture, Zosyn discontinued by ID specialist. no need to continue antibiotics as per ID not yet cleared for discharge by GI specialist. 2. Diarrhea, recent hospitalization with antibiotic use -Check c diff- negative on no antibiotics. 3. DM, chronic, better control. -Accu checks AC/Hs sliding scale and Long lasting insulin. 4. electrolyte derangement replaced today. DVT prophylaxis: SCDs = Discharge Planning Once cleared by GI specialist. Feliberto Stephenson MD Feb 20, 2017 10:01
--- NOTE | 2017-02-20 12:26 | HHI.GIFU ---
Subjective Remarks Resting in bed. Tolerating diet. Continues to have mild abdominal discomfort. 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) Objective Vitals I&O Vital Signs Date Time Temp Pulse Resp B/P (MAP) Pulse Ox O2 Delivery O2 Flow Rate FiO2 02/20/17 08:00 97.5 73 18 126/68 (87) 96 02/20/17 04:00 Room Air 02/20/17 03:46 97.8 67 18 106/69 (81) 97 02/20/17 00:28 97.6 70 18 103/60 (74) 96 02/20/17 00:00 Room Air 02/19/17 20:37 69 02/19/17 20:22 97.9 84 18 94/64 (74) 96 02/19/17 20:00 Room Air 02/19/17 16:00 97.9 83 20 94/57 (69) 98 I/O 02/19/17 02/19/17 02/19/17 02/20/17 02/20/17 02/20/17 07:00 15:00 23:00 07:00 15:00 23:00 Intake Total 720 ml 860 ml Output Total 1000 ml Balance 720 ml -140 ml Intake Oral 720 ml 760 ml IV Total 100 ml Output Urine Total 1000 ml # Voids 4 # Bowel Movements 0 1 Laboratory Date/Time Source Procedure Growth Status 02/14/17 21:10 Blood Peripheral Aerobic Blood Culture - Final NO GROWTH IN 5 DAYS Complete 02/14/17 21:10 Blood Peripheral Anaerobic Blood Culture - Final NO GROWTH IN 5 DAYS Complete 02/15/17 09:00 Fluid Peritoneal Fluid Gram Stain - Final Complete 02/15/17 09:00 Fluid Peritoneal Fluid Body Fluid Culture - Final NO GROWTH IN 72 HRS.--AEROBICALLY OR ... Complete Imaging Last Impressions Cyst Biopsy Asp-Paracentesis US 02/15/17 0000 Signed Impressions: Service Date/Time: Wednesday, February 15, 2017 08:32 - CONCLUSION: Uncomplicated ultrasound guided paracentesis. Carlos Tobias MD Chest X-Ray 02/14/172041 Signed Impressions: Service Date/Time: January 21:02 - CONCLUSION: Mild consolidation and small pleural effusion of the left lung base. Mele Shelton MD Abdomen/Pelvis CT 02/14/172041 Signed Impressions: Service Date/Time: January 22:40 - CONCLUSION: 1. Moderate ascites, increased from January 14. Liver cirrhosis. Splenectomy. Interval placement of biliary stent without significant ductal dilatation.. 2. Moderate-sized left effusion increased from January 14. 3. Moderate anasarca. 4. Nonobstructing left renal calculus. Feng Rod MD Physical Exam HEENT: Normocephalic; atraumatic; no jaundice. NECK: Neck is supple. CHEST: CTA, diminished in bases CARDIAC: RRR ABDOMEN: Soft, mildly distended, mild diffuse tenderness to light palpation; bowel sounds are present EXTREMITIES: Mild BLE edema (much improved) SKIN: Normal; no rash; no jaundice. VENDETTE: No focal deficits; alert and oriented times three. (Aliyah Mosher) Assessment and Plan Plan ASSESSMENT: - New onset ascites, lower extremity edema. S/P US Guided paracentesis (02/15/17 )---> 2,700cc removed. Peritoneal WBC 331. RBC 281. Cx no growth 48 hours. Much improved clinically, although still with some lower extremity edema and mild ascites. Lasix, Spironolactone. Reviewed records from [facility], she actually was seen there for decompensated liver disease with ascites. She was evaluated for TIPS but this was held secondary to EF 30-35% and portal vein thrombosis. She told me she was not on diuretics at home. I cannot see what meds she was discharged home on. Will go up on Spironolactone to 50mg po daily Cont. lasix. - Diarrhea. 2 day hx. She started having diarrhea with 4-5 loose orangish " odd smelling" stools per day about 2 days ago. Of note, she has had multiple hospitalizations and courses of antibiotics. CDiff neg. stool studies were not sent yet. Improved. - Liver cirrhosis. 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 Cytoplasmic inclusions suggestive of Alpha 1 Antitrypsin are present as may be observed in cirrhotic livers however it is suggested that serologic studies be performed. The pathological features present in this biopsy material are different from that observed in the liver biopsy of 01/19/14. She is followed by Dr. Plummer at [facility]. She was seen earlier this month and has follow up appointment next month. See records below. - Recurrent cholangitis, biliary strictures, obstruction with abdominal pain. Pt reports that she had a recent ERCP with stent placement at [facility] in January. I reviewed records and it appears that her cholangitis was treated with abx. - Anemia. Stable. - Gastroparesis. Dx a few months ago, not having n/v at this time. Tolerating diet. - DM per attending. 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 PLAN: - 2 gram sodium diet - Lasix 20mg po daily - Spironolactone 50mg po BID - Monitor labs - Records reviewed from [facility]----> Records obtained from [facility]. I do not see where she had an ERCP. From the records that were sent to this facility, it looks like she was tx'd for cholangitis with abx and while there, she developed ascites, requiring a paracentesis. She was evaluated by IR for possible TIPS, but this was held secondary to VISHAL showing EF of 30-35% and a portal veint thrombosis. They decided that it would be best to do EGD with variceal banding given the hx of decompensated cirrhosis with ascites accumulation as prior EGD showed varices. She underwent EGD, but this was negative for varices. She remained stable and was discharged home. OI do not see what meds she was discharged home on. LFTs seem to be at her baseline. - Okay to d/c home from GI standpoint - FU OAN[facility] in 2 weeks - Keep appointment with [facility] - Pt seen and examined by Dr. Israel and myself and this note is written on her behalf (Aliyah Mosher) Aliyah Mosher Feb 20, 2017 12:26 Edel Israel MD Feb 20, 2017 18:49
[2017-02-20] MEDS: MAGNESIUM SULFATE 1 GM PREMIX 100 ML IV SCH ×2 (13:52→15:05)
[2017-02-20] MEDS: INSULIN DETEMIR 100 UNITS/ML VIAL SQ SCH (21:09)
[2017-02-21] VITALS: BP 100/52; PULSE 88; RESP 18; TEMP 98.4; O2SAT 95
[2017-02-21] MEDS: HYDROmorphone HCL PF 1 MG/ML VIAL IV PUSH PRN ×3 (01:16→09:14)
[2017-02-21 04:00] VITALS: BP 112/73; PULSE 77; RESP 18; TEMP 97.7; O2SAT 97
[2017-02-21 08:00] VITALS: BP 104/65; PULSE 63; PULSE 65; RESP 16; TEMP 98; O2SAT 99
[2017-02-21] MEDS: FUROSEMIDE 40 MG TAB PO SCH (08:27)
[2017-02-21] MEDS: SODIUM CHLORIDE 0.9% FLUSH 10 ML FLUSH IV FLUSH SCH (08:28)
[2017-02-21] MEDS: SPIRONOLACTONE 25 MG TAB PO SCH (08:28)
[2017-02-21] MEDS: INSULIN ASPART SUPPLEMENTAL SCALE SQ SCH (08:29)
[2017-02-21] MEDS ORDERED: MAGNESIUM OXIDE 400 MG TAB PO SCH (09:00)
--- NOTE | 2017-02-21 10:04 | HHI.PR ---
Subjective Remarks Tolerating diet. Pain control; no other concerns at this time. will follow-up with KILO Kline. Objective Vitals Vital Signs Date Time Temp Pulse Resp B/P (MAP) Pulse Ox O2 Delivery O2 Flow Rate FiO2 02/21/17 08:00 98.0 63 16 104/65 (78) 99 02/21/17 04:00 97.7 77 18 112/73 (86) 97 02/21/17 00:00 98.4 88 18 100/52 (68) 95 02/21/17 00:00 Room Air 02/20/17 20:14 93 02/20/17 20:00 Room Air 02/20/17 20:00 97.9 86 19 96/60 (72) 94 02/20/17 16:00 98.1 85 18 94/66 (75) 98 02/20/17 12:00 97.8 69 18 110/65 (80) 95 I/O 02/20/17 02/20/17 02/20/17 02/21/17 02/21/17 02/21/17 07:00 15:00 23:00 07:00 15:00 23:00 Intake Total 2060 ml 925 ml Output Total 1600 ml Balance 460 ml 925 ml Intake Oral 1960 ml 925 ml IV Total 100 ml Output Urine Total 1600 ml # Voids 1 3 # Bowel Movements 0 3 Result Diagram: 02/18/17 0956 02/19/17 0414 Other Results Item Value Date Time Bedside Blood Glucose 190 mg/dl 02/21/17 0829 Bedside Blood Glucose 249 mg/dl 02/20/172109 Objective Remarks GENERAL: This is a well-nourished, well-developed patient, in no apparent distress. CARDIOVASCULAR: Regular rate and rhythm RESPIRATORY: Clear to auscultation. Breath sounds equal bilaterally. No wheezes , rales, or rhonchi. GASTROINTESTINAL: Abdomen soft, non-tender, mild distention. Normal active bowel sounds MUSCULOSKELETAL: Extremities without clubbing, cyanosis, trace edema NEURO: Alert & Oriented x4 to person, place, time, situation. Moves all ext x4 Procedures 02/15- paracentesis A/P Problem List: (1) Ascites ICD Code: R18.8 - Other ascites Status: Resolved (2) Diabetes ICD Code: E11.9 - Type 2 diabetes mellitus without complications Status: Chronic (3) Sclerosing cholangitis ICD Code: K83.0 - Sclerosing cholangitis Status: Chronic Assessment and Plan 1. Sclerosing Cholangitis with secondary Cirrhosis, S/P US Guided paracentesis (02/15/17)---> 2,700 ml removed. Initial Peritoneal WBC 331.RBC 281. Ascitic fluid cultures showed no growth 48 hours. Much improved clinically. Anaprox was discontinued by infectious disease Lasix, Spironolactone, Liver Biopsy revealed severe chronic hepatitis with bridging fibrosis and cirrhosis (grade 2/4; stage 3-4/4) with associated bile stasis, fatty change and histopathologic features most suggestive of drug induced liver disease (including alcohol)- no evidence of primary biliary cirrhosis or primary sclerosing cholangitis in this biopsy. Cytoplasmic inclusions suggestive of Alpha 1 Antitrypsin are present as may be observed in cirrhotic livers however it is suggested that serologic studies be performed. The pathological features present in this biopsy material are different from that observed in the liver biopsy of 01/19/14. She is followed by Dr. Plummer at [facility]. She was seen earlier this month and has follow up appointment next month. S/P recent ERCP with stent placement at [facility] in January. LFTs seem to be at her baseline. LFTs stable- T. Bili 2.7, 121, 71, 1574. GI has also review records and now cleared the patient for discharge. 2. Diarrhea, recent hospitalization with antibiotic use - has improved. -Check c diff- negative on no antibiotics. 3. DM, chronic, uncontrolled but overall adequately controlled -Accu checks AC/Hs sliding scale and Long acting basal insulin, LEVEMIR. DVT prophylaxis: SCDs, no anti-coagulation due to chronic liver disease. Problem Qualifiers (1) Ascites: Qualified Codes: R18.8 - Other ascites (2) Diabetes: Nica Logan MD Feb 21, 2017 10:04
[2017-02-21] MEDS ORDERED: SPIR25 PO (10:07)
[2017-02-21] MEDS ORDERED: FURO40TA PO (10:07)
[2017-02-21] MEDS ORDERED: MAGN400T3 PO (10:07)
--- NOTE | 2017-02-21 10:11 | HHI.DS ---
Discharge Summary Admission Date Feb 15, 2017 at 00:56 Discharge Date: Feb 21, 2017 Admitting Diagnosis abdominal pain/ascites; L pleural effusion; hyperglycemia/DM (1) Sclerosing cholangitis ICD Code: K83.0 - Sclerosing cholangitis Diagnosis: Principal Status: Chronic (2) Ascites ICD Code: R18.8 - Other ascites Diagnosis: Principal Status: Resolved (3) Diabetes ICD Code: E11.9 - Type 2 diabetes mellitus without complications Status: Chronic Procedures 02/15- paracentesis Brief History - From Admission Written by NICKIE Farfan acting as scribe for [Dariana] on 02/15/17 at 01: 49. 46 y/o with a history of cirrhosis due to sclerosing cholangitis, DM, and non Hodgkin lymphoma 2006 presented to the ED with multiple complaints. Patient states for the last 2 days she has had increased abdominal pressure pain and distention with associated nausea. She also complains of increased leg swelling , fatigue and diarrhea, orange in color and foul smelling, 5-6x a day. She states she was so weak her friend had to help her get around. She denies any vomiting, chest pain, fevers or sob. She does have an appointment at [facility] for evaluation for a transplant list. It is unclear if they have started the process yet. She is currently not on any medications for cirrhosis, and states she was not told she had to be. PCP: Dr. Matos GI: Dr. Plummer at [facility] CBC/BMP: 02/18/17 0956 02/19/17 0414 Significant Findings Laboratory Tests Test 02/18/17 13:20 02/19/17 04:14 02/19/17 05:10 Fasting Glucose 215 MG/DL (74-99) Imaging Last Impressions Cyst Biopsy Asp-Paracentesis US 02/15/17 0000 Signed Impressions: Service Date/Time: Wednesday, February 15, 2017 08:32 - CONCLUSION: Uncomplicated ultrasound guided paracentesis. Carlos Tobias MD Chest X-Ray 02/14/172041 Signed Impressions: Service Date/Time: January 21:02 - CONCLUSION: Mild consolidation and small pleural effusion of the left lung base. Mele Shelton MD Abdomen/Pelvis CT 02/14/172041 Signed Impressions: Service Date/Time: January 22:40 - CONCLUSION: 1. Moderate ascites, increased from January 14. Liver cirrhosis. Splenectomy. Interval placement of biliary stent without significant ductal dilatation.. 2. Moderate-sized left effusion increased from January 14. 3. Moderate anasarca. 4. Nonobstructing left renal calculus. Feng Rod MD PE at Discharge GENERAL: This is a well-nourished, well-developed patient, in no apparent distress. CARDIOVASCULAR: Regular rate and rhythm RESPIRATORY: Clear to auscultation. Breath sounds equal bilaterally. No wheezes , rales, or rhonchi. GASTROINTESTINAL: Abdomen soft, non-tender, mild distention. Normal active bowel sounds MUSCULOSKELETAL: Extremities without clubbing, cyanosis, trace edema NEURO: Alert & Oriented x4 to person, place, time, situation. Moves all ext x4 Hospital Course These are the medical issues addressed during this hospitalization: 1. Sclerosing Cholangitis with secondary Cirrhosis, S/P US Guided paracentesis (02/15/17)---> 2,700cc removed. Initial result revealed Peritoneal WBC 331.RBC 281 with acidic fluids culture showed. no growth 48 hours. Patient's presenting as ascites improved on Lasix, Spironolactone; initially patient was placed on Zosyn and switch to Ceftriaxone and which infectious disease was consulted. Wound cultures did not show any organism, and box was discontinued. Liver Biopsy revealed severe chronic hepatitis with bridging fibrosis and cirrhosis (grade 2/4; stage 3-4/4) with associated bile stasis, fatty change and histopathologic features most suggestive of drug induced liver disease ( including alcohol)- no evidence of primary biliary cirrhosis or primary sclerosing cholangitis in this biopsy. Cytoplasmic inclusions suggestive of Alpha 1 Antitrypsin are present as may be observed in cirrhotic livers however it is suggested that serologic studies be performed. The pathological features present in this biopsy material are different from that observed in the liver biopsy of 01/19/14. She is followed by Dr. Plummer at [facility]. She was seen earlier this month and has follow up appointment next month. S/P recent ERCP with stent placement at [facility] in January. LFTs seem to be at her baseline. LFTs stable- T. Bili 2.7, 121, 71, 1574. Patient was Was placed on LEVEMIR & scale insulin for her history of diabetes mellitus with adequate blood sugar control during the hospitalization. At this time GI has cleared patient for discharge and she has gained maximum benefit from hospital stay, she will be discharged home with outpatient follow with [facility]. Pt Condition on Discharge: Good Discharge Disposition: Discharge Home Discharge Time: <= 30 minutes Discharge Instructions DIET: Follow Instructions for: As Tolerated, No Restrictions, Diabetic Diet Activities you can perform: Regular-No Restrictions Follow up Referrals: Gastroenterology - 2 Weeks @ [facility] PCP Follow-up New Medications: Furosemide (Furosemide) 40 Mg Tab 40 MG PO DAILY for prevent swelling, #30 TAB Magnesium Oxide (Magnesium Oxide) 400 Mg Tab 400 MG PO DAILY for Electrolyte Replacement, #30 TAB Spironolactone (Aldactone) 25 Mg Tab 50 MG PO BID@,18 for prevent swelling, #60 TAB Continued Medications: Insulin Human Regular Inj (Novolin R Inj) 1,000 Unit/10 Ml Vial 1 % SQ ACHS03 SLIDE SCALE for dm, #1 INJECTION Nica Logan MD Feb 21, 2017 10:11
== END 2017-02-21 11:42 | disposition home or self-care (01) | DRG 433 ==
LOC: NEPC 19:03 → NEDA 02-15 00:34 → OBSVTOIN 02-15 00:56 → N04B 02-15 02:15
PROVIDERS: ADMIT Family Medicine; ATTEND Family Medicine
PROC: 0W9G3ZZ Drainage of Peritoneal Cavity, Percutaneous Approach (ICD-10-PCS; principal; 2017-02-15)
DX: K74.69 Other cirrhosis of liver (principal); K83.0 Cholangitis; J91.8 Pleural effusion in other conditions classified elsewhere; R18.8 Other ascites; K31.84 Gastroparesis; E11.43 Type 2 diabetes mellitus with diabetic autonomic (poly)neuropathy; E11.65 Type 2 diabetes mellitus with hyperglycemia; Z23 Encounter for immunization; Z79.4 Long term (current) use of insulin; Z92.21 Personal history of antineoplastic chemotherapy; Z85.72 Personal history of non-Hodgkin lymphomas; Z86.14 Personal history of Methicillin resistant Staphylococcus aureus infection; R19.7 Diarrhea, unspecified; D64.9 Anemia, unspecified; F40.240 Claustrophobia; K73.9 Chronic hepatitis, unspecified; K76.0 Fatty (change of) liver, not elsewhere classified; K72.90 Hepatic failure, unspecified without coma; R60.0 Localized edema
CPT/HCPCS: 49083; 71010; 74177; 76937; 80053; 81001; 82140; 82947; 82948; 83605; 83690; 83735; 84132; 85007; 85027; 85610; 85730; 87040; 87070; 87205; 87493; 89051; 90686; 93005; 96361; 96365; 96375; C1729; J0696; J1170; J1815; J1940; J2405; J2543; J3475; J7050; Q2038; Q9967

== ENCOUNTER 2017-02-23 13:02 | Observation (INO) | payer OTHER ==
[2017-02-23] VITALS (7 sets, daily range): BP systolic 107–141; BP diastolic 69–89; PULSE 69–91; RESP 16–21; TEMP 97.8–98; O2SAT 97–100
[~2017-02-23] VITALS: Ht 162.6 cm; Wt 50.4 kg
[~2017-02-23 13:02] MED LIST changes: +FURO40TA PO; +MAGN400T3 PO; -PANT40P IV; -PIPE4INJ IV; +SPIR25 PO
[2017-02-23] MEDS ORDERED: SODIUM CHLORIDE 0.9% FLUSH 10 ML FLUSH IV FLUSH PRN ×2 (14:00→17:30)
[2017-02-23] MEDS ORDERED: HYDROmorphone HCL PF 1 MG/ML VIAL SQ ONE (14:30)
[2017-02-23] MEDS ORDERED: ONDANSETRON ODT 4 MG TAB PO ONE (14:30)
--- NOTE | 2017-02-23 14:30 | PD ---
HPI Chief Complaint: Abdominal Pain Time Seen by Provider: 13:27 Travel History International Travel<30 days: No Contact w/Intl Traveler<30days: No Traveled to known affect area: No History of Present Illness HPI Patient is a 46-year-old female presents emergency department for evaluation of epigastric abdominal pain. Patient has significant history of malignancy at or around her liver which was previously treated with radiation and chemotherapy. She states she's not had a dose of either in some time. She was recently admitted to the hospital for end-stage liver disease and ascites, suspicion of spontaneous bacterial peritonitis with negative ascites cultures at 48 hours. Patient was ultimately discharged to follow-up with her physicians at [facility] for consideration of liver transplant. The patient states that ever since leaving she's had gradually worsening epigastric pain. Denies history of alcohol use denies a history of Tylenol use. Denies any fevers. PFSH Past Medical History Arthritis: No Asthma: No Autoimmune Disease: No Anxiety: No Depression: No Heart Rhythm Problems: No Cancer: Yes (NON HODGKINS LYMPHOMA 2004 -- CHEMOTHERAPY) Cardiovascular Problems: No High Cholesterol: No Chemotherapy: Yes (10/02) Chest Pain: No Congestive Heart Failure: No Cirrhosis: Yes COPD: No Cerebrovascular Accident: No Diabetes: Yes Patient Takes Glucophage: No Diminished Hearing: No Endocrine: Yes Gastrointestinal Disorders: Yes (NON-FUNCTIONAL GALLBLADDER) GERD: No Genitourinary: Yes Headaches: No Hiatal Hernia: No Heparin Induced Thrombocytopen: No Hypertension: No Immune Disorder: No Implanted Vascular Access Dvce: Yes Kidney Stones: Yes Medical other: Yes (HX OF ENLARGED SPLEEN, SPLENECTOMY 2004) Musculoskeletal: No Neurologic: No Psychiatric: Yes (SLIGHTLY CLAUSTROPHOBIC) Reproductive: No Respiratory: No Immunizations Current: No Migraines: No Radiation Therapy: No Renal Failure: No Seizures: No Sickle Cell Disease: No Sleep Apnea: No Thyroid Disease: No Ulcer: Yes ?: Not Menopausal: Yes : 2 Para: 2 Miscarriage: 0 : 0 Past Surgical History Abdominal Surgery: Yes (splenectomy, liver biopsy) AICD: No Arteriovenous Shunt: No Body Medical Devices: BILIARY DRAIN Cardiac Surgery: No Ear Surgery: No Endocrine Surgery: No Eye Surgery: No Genitourinary Surgery: No Gynecologic Surgery: No Insulin Pump: No Joint Replacement: No Neurologic Surgery: No Oral Surgery: No Pacemaker: No Thoracic Surgery: No Other Surgery: Yes (BILIARY DRAIN PLACED, LIVER BIOPSY,splenectomy, biliary stents) Social History Alcohol Use: No Tobacco Use: No Substance Use: No Allergies-Medications (Allergen,Severity, Reaction): Coded Allergies: MRI PRECAUTION (Verified Allergy, Severe, NAUSEA; PER PATIENT IT IS A GADOLINIUM ALLERGY KMD 11/25/12, 02/23/17) gadobenic acid (Unverified Allergy, Severe, BREATHING PROBLEMS, N/V,CHILLS , 02/23/17) gadodiamide (Unverified Allergy, Severe, BREATHING PROBLEMS, N/V,CHILLS, 02/23/17) gadoteridol (Unverified Allergy, Severe, BREATHING PROBLEMS, N/V,CHILLS, 02/23/17) ketorolac (Unverified Allergy, Severe, Shortness of Breath, 02/23/17) morphine (Unverified Allergy, Severe, BREATHING PROBLEMS, 02/23/17) Reported Meds & Prescriptions Reported Meds & Active Scripts Active Novolin R Inj (Insulin Human Regular) 1,000 Unit/10 Ml Vial 1 % SQ ACHS03 SLIDE SCALE Review of Systems Except as stated in HPI: all other systems reviewed are Neg Physical Exam Narrative GENERAL: Well-developed, jaundiced, thin. SKIN: Jaundiced, no skin breakdown the lacerations or bruising. HEAD: Atraumatic. Normocephalic. EYES: Pupils equal and round. Positive scleral icterus. No injection or drainage. ENT: No nasal bleeding or discharge. Mucous membranes pink and moist. NECK: Trachea midline. No JVD. CARDIOVASCULAR: Regular rate and rhythm. No murmur appreciated. RESPIRATORY: No accessory muscle use. Clear to auscultation. Breath sounds equal bilaterally. GASTROINTESTINAL: Abdomen soft, non-tender, in moderately distended ascites present consistent with late second term abdomen. No rebound no percussive tenderness. No CVA tenderness. MUSCULOSKELETAL: No obvious deformities. No clubbing. No cyanosis. No edema. NEUROLOGICAL: Awake and alert. No obvious cranial nerve deficits. Motor grossly within normal limits. Normal speech. PSYCHIATRIC: Appropriate mood and affect; insight and judgment normal. Data Data Last Documented VS Vital Signs Date Time Temp Pulse Resp B/P (MAP) Pulse Ox O2 Delivery O2 Flow Rate FiO2 02/23/17 16:31 91 16 134/89 (104) 98 Room Air 02/23/17 13:30 98.0 Orders Orders Complete Blood Count With Diff (02/23/17 13:49) Comprehensive Metabolic Panel (02/23/17 13:49) Lipase (02/23/17 13:49) Lactic Acid (02/23/17 13:49) Prothrombin Time / Inr (Pt) (02/23/17 13:49) Act Partial Throm Time (Ptt) (02/23/17 13:49) Urinalysis - C+S If Indicated (02/23/17 13:49) Iv Access Insert/Monitor (02/23/17 13:49) Ecg Monitoring (02/23/17 13:49) Oximetry (02/23/17 13:49) Sodium Chloride 0.9% Flush (Ns Flush) (02/23/17 14:00) Ed Urine Pregnancytest Poc (02/23/17 13:49) Vascular Access Team Consult/P PRN (02/23/17 14:25) Vascular Poc Ultrasound (02/23/17 ) Hydromorphone Pf Inj (Dilaudid Pf Inj) (02/23/17 14:30) Ondansetron Odt (Zofran Odt) (02/23/17 14:30) Hydromorphone Pf Inj (Dilaudid Pf Inj) (02/23/17 16:30) Admit Order (Ed Use Only) (02/23/17 ) Labs Laboratory Tests Test 02/23/17 14:53 02/23/17 15:05 Urine Color YELLOW Urine Turbidity CLEAR Urine pH 6.5 Urine Specific [place] 1.030 Urine Protein NEG mg/dL Urine Glucose (UA) 1000 mg/dL Urine Ketones NEG mg/dL Urine Occult Blood NEG Urine Nitrite NEG Urine Bilirubin NEG Urine Urobilinogen LESS THAN 2.0 MG/DL Urine Leukocyte Esterase NEG Urine RBC 1 /hpf Urine WBC LESS THAN 1 /hpf Urine Squamous Epithelial Cells 1 /hpf Microscopic Urinalysis Comment CULT NOT INDICATED White Blood Count 8.5 TH/MM3 Red Blood Count 3.35 MIL/MM3 Hemoglobin 9.9 GM/DL Hematocrit 30.2 % Mean Corpuscular Volume 90.0 FL Mean Corpuscular Hemoglobin 29.5 PG Mean Corpuscular Hemoglobin Concent 32.8 % Red Cell Distribution Width 18.6 % Platelet Count 410 TH/MM3 Mean Platelet Volume 11.3 FL CBC Comment AUTO DIFF Differential Total Cells Counted 100 Neutrophils % (Manual) 84 % Band Neutrophils % 2 % Lymphocytes % 11 % Monocytes % 3 % Neutrophils # (Manual) 7.3 TH/MM3 Differential Comment FINAL DIFF MANUAL Platelet Estimate HIGH Platelet Morphology Comment ENLARGED Target Cells 3+ Prothrombin Time 10.4 SEC Prothromb Time International Ratio 0.9 RATIO Activated Partial Thromboplast Time 25.9 SEC Blood Urea Nitrogen 8 MG/DL Creatinine 0.37 MG/DL Random Glucose 390 MG/DL Total Protein 6.5 GM/DL Albumin 2.3 GM/DL Calcium Level 8.6 MG/DL Alkaline Phosphatase 1592 U/L Aspartate Amino Transf (AST/SGOT) 115 U/L Alanine Aminotransferase (ALT/SGPT) 88 U/L Total Bilirubin 3.2 MG/DL Sodium Level 136 MEQ/L Potassium Level 3.3 MEQ/L Chloride Level 103 MEQ/L Carbon Dioxide Level 25.8 MEQ/L Anion Gap 7 MEQ/L Estimat Glomerular Filtration Rate 188 ML/MIN Lactic Acid Level 0.7 mmol/L Lipase 1348 U/L [facility] Medical Decision Making Medical Screen Exam Complete: Yes Emergency Medical Condition: Yes Differential Diagnosis Abdominal pain, pancreatitis, chronic liver disease, cirrhosis, Narrative Course Patient roomed emergency department, appears to be chronically ill from failing liver. She does have a tender abdomen but certainly no peritoneal signs. She has a positive lipase which is new for her in the low thousands. She states that she has been at home throwing up and vomiting. She states the pain is fairly severe in her abdomen. She was given initially 0.5 mg of Dilaudid IM, vascular access team arrived to start IV, she was given an additional dose of 1 mg of IV Dilaudid at that time. Patient quite concerned over her failing health. Discussed with her that she could consider following up with her GI doctor in [facility] but she would like to have her nausea under control prior to going home. At this time I think the patient warrants observation status and the patient was discussed with hospitalist on-call and will be admitted for observation. Diagnosis Primary Impression: Pancreatitis Qualified Codes: K85.90 - Acute pancreatitis without necrosis or infection, unspecified Additional Impression: Liver disease, chronic, with cirrhosis Admitting Information Admitting Physician Requests: Observation Condition: Stable Tunde Moses MD Feb 23, 2017 14:30
[2017-02-23 15:33] LABS: HEMATOCRIT 30.2 % (35.0-46.0); MEAN CORPUSCULAR HEMOGLOBIN 29.5 PG (27.0-34.0); MEAN CORPUSCULAR HGB CONC 32.8 % (32.0-36.0); PLATELET COUNT 410 TH/MM3 (150-450); RED BLOOD COUNT 3.35 MIL/MM3 (4.00-5.30); RED CELL DISTRIBUTION WIDTH 18.6 % (11.6-17.2); WHITE BLOOD COUNT 8.5 TH/MM3 (4.0-11.0)
[2017-02-23 15:35] LABS: HEMO FLAGS AUTO DIFF
[2017-02-23 15:50] LABS: APTT (PATIENT) 25.9 SEC (24.3-30.1); INTERNATIONAL NORMALIZED RATIO 0.9 RATIO; PROTHROMBIN TIME - PATIENT 10.4 SEC (9.8-11.6)
[2017-02-23 16:01] LABS: ALT (GPT) 88 U/L (10-53); ANION GAP 7 MEQ/L (5-15); AST (GOT) 115 U/L (15-37); BANDS 2 % (0-6); BICARBONATE 25.8 MEQ/L (21.0-32.0); BLOOD UREA NITROGEN 8 MG/DL (7-18); CHLORIDE 103 MEQ/L (98-107); GLOMERULAR FILTRATION RATE 188 ML/MIN (>89); NEUTROPHIL # MANUAL DIFF 7.3 TH/MM3 (1.8-7.7); PLATELET ESTIMATE SMEAR HIGH (NORMAL); PLATELET MORPHOLOGY ENLARGED (NORMAL); POLYS (SEG NEUTROPHILS) 84 % (16-70); POTASSIUM 3.3 MEQ/L (3.5-5.1); SCAN/DIFF FINAL DIFF MANUAL; SODIUM (NA) 136 MEQ/L (136-145); TARGET CELLS 3+ (NORMAL); WBC DIFF SAMPLE 100
[2017-02-23 16:14] LABS: BLOOD, URINE NEG (NEG); COMMENT (UR) CULT NOT INDICATED; CULTURE IF INDICATED CULT NOT INDICATED; GLUCOSE,URINE 1000 mg/dL (NEG); KETONE, URINE NEG (NEG); NITRITE,URINE NEG (NEG); PH, URINE 6.5 (5.0-8.5); SQUAMOUS EPITHELIAL CELL URINE 1 /hpf (0-5); URINE COLOR YELLOW (YELLW/STRAW)
[2017-02-23 16:15] LABS: ALKALINE PHOSPHATASE 1592 U/L (45-117); TOTAL BILIRUBIN ADULT 3.2 MG/DL (0.2-1.0)
[2017-02-23] MEDS ORDERED: HYDROmorphone HCL PF 1 MG/ML VIAL IV PUSH ONE (16:30)
--- NOTE | 2017-02-23 17:28 | HHI.HP ---
[facility] Gil[facility] Admission Diagnosis Pancreatitis, Anasarca Diagnoses: Chief Complaint: Abdominal pain, bilateral leg swelling Travel History International Travel<30 Days: No Contact w/Intl Traveler <30 Da: No Traveled to Known Affected Are: No History of Present Illness Written by Landy Jaimes, acting as scribe for Dr. Mac on 02/23/17 at 17:30. Patient is a 46 year old female with primary medical history of liver failure, non-Hodgkin's lymphoma, DM 2 who came into the hospital for complaints of increasing abdominal pain, leg swelling. Patient states "my stomach is enlarged and is painful and also I have my legs and feet were swollen." Male Friend at the bedside, states that previous days ago in the swelling of her legs were more so than now and that she was also jaundiced. Patient states that abdominal pain is 10 over 10 more on the right upper quadrant associated with nausea, low-grade temperature of 99, radiating to the back, is not being relieved by anything or is not being aggravated by movement. States that she is newly getting established at [facility], not on transplant list yet as she is fairly new. Denies SOB/ dyspnea. Denies chest pain, palpitations, headaches, dizziness. Denies vomiting, diarrhea, constipation. Denies hematuria , dysuria. Review of Systems Constitutional: COMPLAINS OF: Fatigue, Fever Eyes: DENIES: Vision loss Ears, nose, mouth, throat: DENIES: Hearing loss Respiratory: DENIES: Cough, Sputum production, Shortness of breath Cardiovascular: DENIES: Chest pain Gastrointestinal: COMPLAINS OF: Abdominal pain, Nausea, DENIES: Black stools, Bloody stools, Constipation, Diarrhea, Vomiting, Difficulty Swallowing Except as stated in HPI: all other systems reviewed are Neg Past Family Social History Past Medical History Liver failure Non-Hodgkin's lymphoma in 2004 underwent chemotherapy DM 2 Past Surgical History Splenectomy Biliary stent Tumor removal in the liver Reported Medications Reported Meds & Active Scripts Active Novolin R Inj (Insulin Human Regular) 1,000 Unit/10 Ml Vial 1 % SQ ACHS03 SLIDE SCALE Allergies: Coded Allergies: MRI PRECAUTION (Verified Allergy, Severe, NAUSEA; PER PATIENT IT IS A GADOLINIUM ALLERGY KMD 11/25/12, 02/23/17) gadobenic acid (Unverified Allergy, Severe, BREATHING PROBLEMS, N/V,CHILLS , 02/23/17) gadodiamide (Unverified Allergy, Severe, BREATHING PROBLEMS, N/V,CHILLS, 02/23/17) gadoteridol (Unverified Allergy, Severe, BREATHING PROBLEMS, N/V,CHILLS, 02/23/17) ketorolac (Unverified Allergy, Severe, Shortness of Breath, 02/23/17) morphine (Unverified Allergy, Severe, BREATHING PROBLEMS, 02/23/17) Active Ordered Medications Current Medications Medications (Trade) Dose Ordered Sig/Celso Route Start Time Stop Time Status Last Admin (NS Flush) 2 ml UNSCH PRN IV FLUSH 02/23/17 14:00 Family History Onset have lymphoma cancer Social History Denies alcohol use Denies tobacco use Denies illicit drug use Physical Exam Vital Signs Vital Signs Date Time Temp Pulse Resp B/P (MAP) Pulse Ox O2 Delivery O2 Flow Rate FiO2 02/23/17 16:31 91 16 134/89 (104) 98 Room Air 02/23/17 15:00 69 21 141/76 (97) 99 Room Air 02/23/17 14:34 20 98 Room Air 02/23/17 13:30 21 02/23/17 13:30 98.0 79 20 109/71 (84) 99 Room Air 02/23/17 13:04 97.8 89 16 116/70 (85) 97 Physical Exam GENERAL: This is a thin appearing, well-developed patient, in no apparent distress. SKIN: Warm and dry. HEAD: Normocephalic. No temporal or scalp tenderness. EYES: Pupils equal round and reactive. Extraocular motions intact. Positive mild scleral icterus. No injection or drainage. ENT: Nose without bleeding. Throat without erythema. Uvula midline. Airway patent. NECK: Trachea midline. Supple. CARDIOVASCULAR: Regular rate and rhythm without murmurs, gallops, or rubs. RESPIRATORY: Clear to auscultation. Breath sounds equal bilaterally. No wheezes , rales, or rhonchi. GASTROINTESTINAL: Abdomen soft, ascites noted. Tenderness to bilateral flank area, right upper quadrant, mid epigastric region MUSCULOSKELETAL: Extremities without clubbing, cyanosis, bilateral lower extremity +2 edema. NEUROLOGICAL: Awake and alert. Cranial nerves II through XII intact. Motor and sensory grossly within normal limits. Normal speech. Laboratory Laboratory Tests Test 02/23/17 14:53 02/23/17 15:05 Urine Color YELLOW Urine Turbidity CLEAR Urine pH 6.5 Urine Specific [place] 1.030 Urine Protein NEG Urine Glucose (UA) 1000 Urine Ketones NEG Urine Occult Blood NEG Urine Nitrite NEG Urine Bilirubin NEG Urine Urobilinogen LESS THAN 2.0 Urine Leukocyte Esterase NEG Urine RBC 1 Urine WBC LESS THAN 1 Urine Squamous Epithelial Cells 1 Microscopic Urinalysis Comment CULT NOT INDICATED White Blood Count 8.5 Red Blood Count 3.35 Hemoglobin 9.9 Hematocrit 30.2 Mean Corpuscular Volume 90.0 Mean Corpuscular Hemoglobin 29.5 Mean Corpuscular Hemoglobin Concent 32.8 Red Cell Distribution Width 18.6 Platelet Count 410 Mean Platelet Volume 11.3 CBC Comment AUTO DIFF Differential Total Cells Counted 100 Neutrophils % (Manual) 84 Band Neutrophils % 2 Lymphocytes % 11 Monocytes % 3 Neutrophils # (Manual) 7.3 Differential Comment FINAL DIFF MANUAL Platelet Estimate HIGH Platelet Morphology Comment ENLARGED Target Cells 3+ Prothrombin Time 10.4 Prothromb Time International Ratio 0.9 Activated Partial Thromboplast Time 25.9 Blood Urea Nitrogen 8 Creatinine 0.37 Random Glucose 390 Total Protein 6.5 Albumin 2.3 Calcium Level 8.6 Alkaline Phosphatase 1592 Aspartate Amino Transf (AST/SGOT) 115 Alanine Aminotransferase (ALT/SGPT) 88 Total Bilirubin 3.2 Sodium Level 136 Potassium Level 3.3 Chloride Level 103 Carbon Dioxide Level 25.8 Anion Gap 7 Estimat Glomerular Filtration Rate 188 Lactic Acid Level 0.7 Lipase 1348 Result Diagram: 02/23/17 1505 02/23/17 1505 Caprini VTE Risk Assessment Caprini VTE Risk Assessment: Mod/High Risk (score >= 2) Caprini Risk Assessment Model Point Value = 1 Point Value = 2 Point Value = 3 Point Value = 5 Age 41-60 Minor surgery BMI > 25 kg/m2 Swollen legs Varicose veins or History of unexplained or recurrent spontaneous Oral contraceptives or hormone replacement Sepsis (< 1 month) Serious lung disease, including pneumonia (< 1 month) Abnormal pulmonary function Acute myocardial infarction Congestive heart failure (< 1 month) History of inflammatory bowel disease Medical patient at bed rest Age 61-74 Arthroscopic surgery Major open surgery (> 45 min) Laparoscopic surgery (> 45 min) Malignancy Confined to bed (> 72 hours) Immobilizing plaster cast Central venous access Age >= 75 History of VTE Family history of VTE Factor V Leiden Prothrombin [id number] Lupus anticoagulant Anticardiolipin antibodies Elevated serum homocysteine Heparin-induced thrombocytopenia Other congenital or acquired thrombophilia Stroke (< 1 month) Elective arthroplasty Hip, pelvis, or leg fracture Acute spinal cord injury (< 1 month) Prophylaxis Regimen Total Risk Factor Score Risk Level Prophylaxis Regimen 0-1 Low Early ambulation 2 Moderate Order ONE of the following: *Sequential Compression Device (SCD) *Heparin 5000 units SQ BID 3-4 Higher Order ONE of the following medications: *Heparin 5000 units SQ TID *Enoxaparin/Lovenox 40 mg SQ daily (WT < 150 kg, CrCl > 30 mL/min) *Enoxaparin/Lovenox 30 mg SQ daily (WT < 150 kg, CrCl > 10-29 mL/min) *Enoxaparin/Lovenox 30 mg SQ BID (WT < 150 kg, CrCl > 30 mL/min) AND/OR *Sequential Compression Device (SCD) 5 or more Highest Order ONE of the following medications: *Heparin 5000 units SQ TID (Preferred with Epidurals) *Enoxaparin/Lovenox 40 mg SQ daily (WT < 150 kg, CrCl > 30 mL/min) *Enoxaparin/Lovenox 30 mg SQ daily (WT < 150 kg, CrCl > 10-29 mL/min) *Enoxaparin/Lovenox 30 mg SQ BID (WT < 150 kg, CrCl > 30 mL/min) AND *Sequential Compression Device (SCD) Assessment and Plan Problem List: (1) Non-Hodgkin lymphoma ICD Code: C85.90 - Non-Hodgkin lymphoma Status: Acute (2) Pancreatitis ICD Code: K85.9 - Pancreatitis Status: Acute (3) Liver disease, chronic, with cirrhosis ICD Code: K74.60 - Unspecified cirrhosis of liver; K76.9 - Liver disease, unspecified Status: Chronic (4) DM (diabetes mellitus) ICD Code: E11.9 - Type 2 diabetes mellitus without complications Status: Chronic Assessment and Plan Patient is a 46 year old female with primary medical history of liver failure, non-Hodgkin's lymphoma, DM 2 who came into the hospital for complaints of increasing abdominal pain, leg swelling. Pancreatitis, acute - Lipase 1348 - Nothing by mouth for now - Hold off IV fluids since patient has liver failure and anasarca - Pain management - Follow up labs in a.m. Liver failure, acute on chronic - Reports of jaundice, anasarca, bilateral lowers extremity edema - Newly followed in [facility] - Trend LFTs. Compared to prior admission 02/18/17 LFTs have improved slightly - Consult GI for recommendations. Patient has biliary stent prior. - Patient has recently had paracentesis 02/15/17 removed 2700 cc of clear, yellow fluid - 02/14/17 CT of the abdomen and pelvis reviewed by me showed moderate ascites , increased from January 14. Liver cirrhosis. Splenectomy. Interval placement of biliary stent without significant ductal dilatation. 2. Moderate size left effusion increased from January 14. 3. Moderate anasarca. 4. Nonobstructive left renal calculus DM 2, hyperglycemia - Blood glucose 390 - Insulin sliding scale. Monitor Accu-Cheks - Monitor for hypoglycemia - Check hemoglobin A1c DVT prop SCDs Code Status Full code Discussed Condition With Patient, nursing, ED attending Physician Certification 2 Midnight Certification Type: Admission for Inpatient Services Order for Inpatient Services The services are ordered in accordance with Medicare regulations or non- Medicare payer requirements, as applicable. In the case of services not specified as inpatient-only, they are appropriately provided as inpatient services in accordance with the 2-midnight benchmark. Estimated LOS (days): 1 days is the estimated time the patient will need to remain in the hospital, assuming treatment plan goals are met and no additional complications. Post-Hospital Plan: Home Notes: Observational Status Landy Lopez Feb 23, 2017 17:28 Elizabeth Mac MD Feb 23, 2017 17:30
[2017-02-23] MEDS ORDERED: LACTULOSE SYRUP 20 GM/30 ML CUP PO PRN (17:30)
[2017-02-23] MEDS ORDERED: MORPHINE SULFATE 4 MG/ML INJ IV PUSH PRN ×2 (17:30)
[2017-02-23] MEDS ORDERED: MAGNESIUM HYDROXIDE SUSP 30 ML CUP PO PRN (17:30)
[2017-02-23] MEDS ORDERED: BISACODYL 10 MG SUPP RECTAL PRN (17:30)
[2017-02-23] MEDS ORDERED: SENNOSIDES 8.6 MG TAB PO PRN (17:30)
[2017-02-23] MEDS ORDERED: NALOXONE HCL 0.4 MG/ML AMP IV PUSH PRN (17:30)
[2017-02-23] MEDS ORDERED: ONDANSETRON HCL 4 MG/2 ML VIAL IVP PRN (17:30)
--- NOTE | 2017-02-23 17:58 | HHI.HP ---
HPI Service [facility] [place] Primary Care Physician Gilmar Matos DO Admission Diagnosis Pancreatitis, Anasarca Diagnoses: (1) Non-Hodgkin lymphoma (2) Pancreatitis (3) Liver disease, chronic, with cirrhosis (4) DM (diabetes mellitus) Travel History International Travel<30 Days: No Contact w/Intl Traveler <30 Da: No Traveled to Known Affected Are: No History of Present Illness Written by Landy Jaimes, acting as scribe for Dr. Mac on 02/23/17 at 18:01. Patient is a 46 year old female with primary medical history of liver failure, non-Hodgkin's lymphoma, DM 2 who came into the hospital for complaints of increasing abdominal pain, leg swelling. Patient states "my stomach is enlarged and is painful and also I have my legs and feet were swollen." Male Friend at the bedside, states that previous days ago in the swelling of her legs were more so than now and that she was also jaundiced. Patient states that abdominal pain is 10 over 10 more on the right upper quadrant associated with nausea, low-grade temperature of 99, radiating to the back, is not being relieved by anything or is not being aggravated by movement. States that she is newly getting established at [facility], not on transplant list yet as she is fairly new. Denies SOB/ dyspnea. Denies chest pain, palpitations, headaches, dizziness. Denies vomiting, diarrhea, constipation. Denies hematuria , dysuria. Review of Systems Constitutional: COMPLAINS OF: Fatigue, Fever Eyes: DENIES: Vision loss Ears, nose, mouth, throat: DENIES: Tinnitus, Throat pain, Hoarseness, Running Nose Respiratory: DENIES: Sputum production, Shortness of breath Cardiovascular: DENIES: Palpitations Gastrointestinal: COMPLAINS OF: Abdominal pain, Nausea, DENIES: Black stools, Bloody stools, Constipation, Diarrhea, Vomiting, Difficulty Swallowing Except as stated in HPI: all other systems reviewed are Neg Past Family Social History Past Medical History Liver failure Non-Hodgkin's lymphoma in 2004 underwent chemotherapy DM 2 Past Surgical History Splenectomy Biliary stent Tumor removal in the liver Reported Medications Reported Meds & Active Scripts Active Novolin R Inj (Insulin Human Regular) 1,000 Unit/10 Ml Vial 1 % SQ ACHS03 SLIDE SCALE Allergies: Coded Allergies: MRI PRECAUTION (Verified Allergy, Severe, NAUSEA; PER PATIENT IT IS A GADOLINIUM ALLERGY KMD 11/25/12, 02/23/17) gadobenic acid (Unverified Allergy, Severe, BREATHING PROBLEMS, N/V,CHILLS , 02/23/17) gadodiamide (Unverified Allergy, Severe, BREATHING PROBLEMS, N/V,CHILLS, 02/23/17) gadoteridol (Unverified Allergy, Severe, BREATHING PROBLEMS, N/V,CHILLS, 02/23/17) ketorolac (Unverified Allergy, Severe, Shortness of Breath, 02/23/17) morphine (Unverified Allergy, Severe, BREATHING PROBLEMS, 02/23/17) Active Ordered Medications Current Medications Medications (Trade) Dose Ordered Sig/Celso Route Start Time Stop Time Status Last Admin (NS Flush) 2 ml UNSCH PRN IV FLUSH 02/23/17 14:00 (NS Flush) 2 ml UNSCH PRN IV FLUSH 02/23/17 17:30 UNV (NS Flush) 2 ml BID IV FLUSH 02/23/17 21:00 UNV (Zofran Inj) 4 mg Q6H PRN IVP 02/23/17 17:30 UNV (Heparin Inj) 5,000 units Q12H SQ 02/23/17 17:30 UNV (Morphine Inj) 2 mg Q3H PRN IV PUSH 02/23/17 17:30 UNV (Morphine Inj) 4 mg Q3H PRN IV PUSH 02/23/17 17:30 UNV (Narcan Inj) 0.4 mg UNSCH PRN IV PUSH 02/23/17 17:30 UNV (Tish-Colace) 1 tab BID PO 02/23/17 21:00 UNV (Milk Of Magnesia Liq) 30 ml Q12H PRN PO 02/23/17 17:30 UNV (Senokot) 17.2 mg Q12H PRN PO 02/23/17 17:30 UNV (Dulcolax Supp) 10 mg DAILY PRN RECTAL 02/23/17 17:30 UNV (Lactulose Liq) 30 ml DAILY PRN PO 02/23/17 17:30 UNV Family History Aunts have lymphoma cancer Social History Denies alcohol use Denies tobacco use Denies illicit drug use Physical Exam Vital Signs Vital Signs Date Time Temp Pulse Resp B/P (MAP) Pulse Ox O2 Delivery O2 Flow Rate FiO2 02/23/17 17:40 78 21 130/81 (97) 99 Room Air 02/23/17 16:31 91 16 134/89 (104) 98 Room Air 02/23/17 15:00 69 21 141/76 (97) 99 Room Air 02/23/17 14:34 20 98 Room Air 02/23/17 13:30 21 02/23/17 13:30 98.0 79 20 109/71 (84) 99 Room Air 02/23/17 13:04 97.8 89 16 116/70 (85) 97 Physical Exam GENERAL: This is a thin appearing, well-developed patient, in no apparent distress. SKIN: Warm and dry. HEAD: Normocephalic. No temporal or scalp tenderness. EYES: Pupils equal round and reactive. Extraocular motions intact. Positive mild scleral icterus. No injection or drainage. ENT: Nose without bleeding. Throat without erythema. Uvula midline. Airway patent. NECK: Trachea midline. Supple. CARDIOVASCULAR: Regular rate and rhythm without murmurs, gallops, or rubs. RESPIRATORY: Clear to auscultation. Breath sounds equal bilaterally. No wheezes , rales, or rhonchi. GASTROINTESTINAL: Abdomen soft, ascites noted. Tenderness to bilateral flank area, right upper quadrant, mid epigastric region MUSCULOSKELETAL: Extremities without clubbing, cyanosis, bilateral lower extremity +2 edema. NEUROLOGICAL: Awake and alert. Cranial nerves II through XII intact. Motor and sensory grossly within normal limits. Normal speech. Laboratory Laboratory Tests Test 02/23/17 14:53 02/23/17 15:05 Urine Color YELLOW Urine Turbidity CLEAR Urine pH 6.5 Urine Specific [place] 1.030 Urine Protein NEG Urine Glucose (UA) 1000 Urine Ketones NEG Urine Occult Blood NEG Urine Nitrite NEG Urine Bilirubin NEG Urine Urobilinogen LESS THAN 2.0 Urine Leukocyte Esterase NEG Urine RBC 1 Urine WBC LESS THAN 1 Urine Squamous Epithelial Cells 1 Microscopic Urinalysis Comment CULT NOT INDICATED White Blood Count 8.5 Red Blood Count 3.35 Hemoglobin 9.9 Hematocrit 30.2 Mean Corpuscular Volume 90.0 Mean Corpuscular Hemoglobin 29.5 Mean Corpuscular Hemoglobin Concent 32.8 Red Cell Distribution Width 18.6 Platelet Count 410 Mean Platelet Volume 11.3 CBC Comment AUTO DIFF Differential Total Cells Counted 100 Neutrophils % (Manual) 84 Band Neutrophils % 2 Lymphocytes % 11 Monocytes % 3 Neutrophils # (Manual) 7.3 Differential Comment FINAL DIFF MANUAL Platelet Estimate HIGH Platelet Morphology Comment ENLARGED Target Cells 3+ Prothrombin Time 10.4 Prothromb Time International Ratio 0.9 Activated Partial Thromboplast Time 25.9 Blood Urea Nitrogen 8 Creatinine 0.37 Random Glucose 390 Total Protein 6.5 Albumin 2.3 Calcium Level 8.6 Alkaline Phosphatase 1592 Aspartate Amino Transf (AST/SGOT) 115 Alanine Aminotransferase (ALT/SGPT) 88 Total Bilirubin 3.2 Sodium Level 136 Potassium Level 3.3 Chloride Level 103 Carbon Dioxide Level 25.8 Anion Gap 7 Estimat Glomerular Filtration Rate 188 Lactic Acid Level 0.7 Lipase 1348 Result Diagram: 02/23/17 1505 02/23/17 1505 Caprini VTE Risk Assessment Caprini VTE Risk Assessment: Mod/High Risk (score >= 2) Caprini Risk Assessment Model Point Value = 1 Point Value = 2 Point Value = 3 Point Value = 5 Age 41-60 Minor surgery BMI > 25 kg/m2 Swollen legs Varicose veins or History of unexplained or recurrent spontaneous Oral contraceptives or hormone replacement Sepsis (< 1 month) Serious lung disease, including pneumonia (< 1 month) Abnormal pulmonary function Acute myocardial infarction Congestive heart failure (< 1 month) History of inflammatory bowel disease Medical patient at bed rest Age 61-74 Arthroscopic surgery Major open surgery (> 45 min) Laparoscopic surgery (> 45 min) Malignancy Confined to bed (> 72 hours) Immobilizing plaster cast Central venous access Age >= 75 History of VTE Family history of VTE Factor V Leiden Prothrombin [id number] Lupus anticoagulant Anticardiolipin antibodies Elevated serum homocysteine Heparin-induced thrombocytopenia Other congenital or acquired thrombophilia Stroke (< 1 month) Elective arthroplasty Hip, pelvis, or leg fracture Acute spinal cord injury (< 1 month) Prophylaxis Regimen Total Risk Factor Score Risk Level Prophylaxis Regimen 0-1 Low Early ambulation 2 Moderate Order ONE of the following: *Sequential Compression Device (SCD) *Heparin 5000 units SQ BID 3-4 Higher Order ONE of the following medications: *Heparin 5000 units SQ TID *Enoxaparin/Lovenox 40 mg SQ daily (WT < 150 kg, CrCl > 30 mL/min) *Enoxaparin/Lovenox 30 mg SQ daily (WT < 150 kg, CrCl > 10-29 mL/min) *Enoxaparin/Lovenox 30 mg SQ BID (WT < 150 kg, CrCl > 30 mL/min) AND/OR *Sequential Compression Device (SCD) 5 or more Highest Order ONE of the following medications: *Heparin 5000 units SQ TID (Preferred with Epidurals) *Enoxaparin/Lovenox 40 mg SQ daily (WT < 150 kg, CrCl > 30 mL/min) *Enoxaparin/Lovenox 30 mg SQ daily (WT < 150 kg, CrCl > 10-29 mL/min) *Enoxaparin/Lovenox 30 mg SQ BID (WT < 150 kg, CrCl > 30 mL/min) AND *Sequential Compression Device (SCD) Assessment and Plan Problem List: (1) Non-Hodgkin lymphoma ICD Code: C85.90 - Non-Hodgkin lymphoma Status: Acute (2) Pancreatitis ICD Code: K85.9 - Pancreatitis Status: Acute (3) Liver disease, chronic, with cirrhosis ICD Code: K74.60 - Unspecified cirrhosis of liver; K76.9 - Liver disease, unspecified Status: Chronic (4) DM (diabetes mellitus) ICD Code: E11.9 - Type 2 diabetes mellitus without complications Status: Chronic Assessment and Plan Patient is a 46 year old female with primary medical history of liver failure, non-Hodgkin's lymphoma, DM 2 who came into the hospital for complaints of increasing abdominal pain, leg swelling. Pancreatitis, acute - Lipase 1348 - Nothing by mouth for now - Hold off IV fluids since patient has liver failure and anasarca - Pain management - Follow up labs in a.m. Liver failure, acute on chronic - Reports of jaundice, anasarca, bilateral lowers extremity edema - Newly followed in [facility] - Trend LFTs. Compared to prior admission 02/18/17 LFTs have improved slightly - Consult GI for recommendations. Patient has biliary stent prior. - Patient has recently had paracentesis 02/15/17 removed 2700 cc of clear, yellow fluid - 02/14/17 CT of the abdomen and pelvis reviewed by me showed moderate ascites , increased from January 14. Liver cirrhosis. Splenectomy. Interval placement of biliary stent without significant ductal dilatation. 2. Moderate size left effusion increased from January 14. 3. Moderate anasarca. 4. Nonobstructive left renal calculus DM 2, hyperglycemia - Blood glucose 390 - Insulin sliding scale. Monitor Accu-Cheks - Monitor for hypoglycemia - Check hemoglobin A1c DVT prop SCDs Code Status Full code Discussed Condition With Patient, nursing, ED attending This note was transcribed by scribe [ Landy Jaimes ]. I, Dr. Elizabeth Mac personally performed the history, physical exam, and medical decision making; and confirmed the accuracy of the information in the transcribed note. Authenticated by Dr. Elizabeth Mac on 02/23/17 at 18:01. Problem Qualifiers (1) Pancreatitis: Qualified Codes: K85.90 - Acute pancreatitis without necrosis or infection, unspecified Landy Lopez Feb 23, 2017 17:58 Elizabeth Mac MD Feb 23, 2017 18:01
[2017-02-23] MEDS: HEPARIN SODIUM - SQ 10,000 UNITS/ML VIAL SQ SCH (18:09)
[2017-02-23] MEDS ORDERED: HYDROmorphone HCL PF 1 MG/ML VIAL IV PUSH PRN (18:30)
[2017-02-23] MEDS ORDERED: GLUCAGON 1 MG/ML VIAL OTHER PRN (20:30)
[2017-02-23] MEDS ORDERED: DEXTROSE 50% IN WATER 50 ML VIAL(D50) IV PUSH PRN (20:30)
[2017-02-23] MEDS: DOCUSATE SODIUM 50 MG/SENNA 8.6 MG TAB PO SCH (21:00)
[2017-02-23] MEDS: INSULIN ASPART SUPPLEMENTAL SCALE SQ SCH (21:00)
[2017-02-23] MEDS: SODIUM CHLORIDE 0.9% FLUSH 10 ML FLUSH IV FLUSH SCH (22:40)
[2017-02-23] MEDS: HYDROmorphone HCL PF 1 MG/ML VIAL IV PUSH PRN (22:40)
[2017-02-24] VITALS (11 sets, daily range): BP systolic 99–113; BP diastolic 61–75; PULSE 65–94; RESP 12–18; TEMP 96.8–98.5; O2SAT 96–100
[2017-02-24] MEDS: HYDROmorphone HCL PF 1 MG/ML VIAL IV PUSH PRN ×5 (03:45→20:46)
[2017-02-24] MEDS: HEPARIN SODIUM - SQ 10,000 UNITS/ML VIAL SQ SCH ×2 (06:19→16:43)
[2017-02-24] MEDS: DOCUSATE SODIUM 50 MG/SENNA 8.6 MG TAB PO SCH ×2 (08:16→20:46)
[2017-02-24] MEDS: INSULIN ASPART SUPPLEMENTAL SCALE SQ SCH ×3 (08:38→20:46)
--- NOTE | 2017-02-24 09:27 | PD.CONS ---
HPI History of Present Illness This is a 46 year old female who came to the emergency room for evaluation of severe abd pain, bilateral lower extremity and abdominal swelling, bloating and diarrhea. She has a history of non-Hodgkin's lymphoma and completed chemotherapy in 2005, but has had an ongoing problem with biliary strictures and sclerosing cholangitis. At one point, she was requiring frequent ERCP with stent exchanges for this, but more recently, she has not been able to have an internal stent placed and has required biliary drains periodically. Her last liver biopsy was on (07/27/16) and revealed severe chronic hepatitis with bridging fibrosis and cirrhosis (grade 2/4; stage 3-4/4) with associated bile stasis, fatty change and histopathologic features most suggestive of drug induced liver disease (including alcohol)- no evidence of primary biliary cirrhosis or primary sclerosing cholangitis in this biopsy. Cytoplasmic inclusions suggestive of Alpha 1 Antitrypsin are present as may be observed in cirrhotic livers however it is suggested that serologic studies be performed. The pathological features present in this biopsy material are different from that observed in the liver biopsy of 01/19/14. She was seen at [facility] for liver transplant evaluation and states that she underwent ERCP in May of 2015 with them. More recently she has been seen by [facility] for tertiary. She was hospitalized in late December/early January of this year for sepsis secondary to recurrent cholangitis, biliary strictures, obstruction. During that hospitalization, we discussed with Dr. Limon in IR her abnormal imaging on MRCP, but he did not feel that she was a candidate for PTBD, as she had multiple ducts obstructed. We did contact [facility] for possible inpatient transfer, but they did not accept patient and wanted her to follow up as outpatient. Since her last hospitalization, she did go to [facility] (Dr. Plummer) for liver transplant evaluation. She is not suer if she had a recent ERCP at [facility] or not. She has a follow up appointment next month at [facility]. She now presents to the ER with severe abd pain, this in RUQ area associated with nausea , bloating and low grad fever. She reports loose stools few times a day for few days . she has had multiple hospitalizations and courses of antibiotics. She is not on any diuretics at home. She is S/P US Guided paracentesis (02/15/17) ---> 2,700cc removed. Peritoneal WBC 331. RBC 281. Cx negative. (Rita Burgos) PFSH Past Medical History Liver failure Non-Hodgkin's lymphoma in 2005 underwent chemotherapy DM 2 Past Surgical History Splenectomy Biliary stent Tumor removal in the liver (Rita Burgos) Coded Allergies: MRI PRECAUTION (Verified Allergy, Severe, NAUSEA; PER PATIENT IT IS A GADOLINIUM ALLERGY KMD 11/25/12, 02/28/17) gadobenic acid (Unverified Allergy, Severe, BREATHING PROBLEMS, N/V,CHILLS , 02/28/17) gadodiamide (Unverified Allergy, Severe, BREATHING PROBLEMS, N/V,CHILLS, 02/28/17) gadoteridol (Unverified Allergy, Severe, BREATHING PROBLEMS, N/V,CHILLS, 02/28/17) ketorolac (Unverified Allergy, Severe, Shortness of Breath, 02/28/17) morphine (Unverified Allergy, Severe, BREATHING PROBLEMS, 02/28/17) Medications Current Medications Medications (Trade) Dose Ordered Sig/Celso Route Start Time Stop Time Status Last Admin (NS Flush) 2 ml UNSCH PRN IV FLUSH 02/23/17 17:30 (NS Flush) 2 ml BID IV FLUSH 02/23/17 21:00 02/23/17 22:40 (Zofran Inj) 4 mg Q6H PRN IVP 02/23/17 17:30 (Heparin Inj) 5,000 units Q12H SQ 02/23/17 18:00 02/24/17 06:19 (Narcan Inj) 0.4 mg UNSCH PRN IV PUSH 02/23/17 17:30 (Tish-Colace) 1 tab BID PO 02/23/17 21:00 (Milk Of Magnesia Liq) 30 ml Q12H PRN PO 02/23/17 17:30 (Senokot) 17.2 mg Q12H PRN PO 02/23/17 17:30 (Dulcolax Supp) 10 mg DAILY PRN RECTAL 02/23/17 17:30 (Lactulose Liq) 30 ml DAILY PRN PO 02/23/17 17:30 (Dilaudid Pf Inj) 0.2 mg Q4H PRN IV PUSH 02/23/17 18:30 (Dilaudid Pf Inj) 0.5 mg Q4H PRN IV PUSH 02/23/17 18:30 02/24/17 08:16 (NovoLOG SUPPLEMENTAL SCALE) 1 ACHS SLIDING SCALE SQ 02/23/17 21:00 02/24/17 08:38 (D50w (Vial) Inj) 50 ml UNSCH PRN IV PUSH 02/23/17 20:30 (Glucagon Inj) 1 mg UNSCH PRN OTHER 02/23/17 20:30 Family History Aunts have lymphoma cancer Social History Denies alcohol use Denies tobacco use Denies illicit drug use (Rita Burgos) Review of Systems Constitutional: COMPLAINS OF: Fatigue, Change in appetite Endocrine: DENIES: Polyuria Eyes: DENIES: Double Vision Ears, nose, mouth, throat: DENIES: Hoarseness Respiratory: DENIES: Shortness of breath Cardiovascular: COMPLAINS OF: Lower Extremity Edema Gastrointestinal: COMPLAINS OF: Abdominal pain, Diarrhea, Nausea, Swelling of Abdomen, DENIES: Black stools, Bloody stools, Constipation, Vomiting, Difficulty Swallowing, Anorexia, Odynophagia, Heartburn, Hematemesis Genitourinary: DENIES: Hematuria Musculoskeletal: DENIES: Neck pain Integumentary: COMPLAINS OF: Jaundice Hematologic/lymphatic: DENIES: Bruising Immunologic/allergic: DENIES: Eczema Neurologic: DENIES: Abnormal gait Psychiatric: DENIES: Anxiety (Rita Burgos) GI Exam Vitals I&O Vital Signs Date Time Temp Pulse Resp B/P (MAP) Pulse Ox O2 Delivery O2 Flow Rate FiO2 02/24/17 08:28 98.1 86 16 101/64 (76) 96 02/24/17 04:00 97.8 87 18 113/74 (87) 99 02/24/17 00:00 96.8 94 18 110/66 (81) 99 02/23/17 20:00 97.8 73 18 107/69 (82) 100 02/23/17 18:56 02/23/17 17:40 78 21 130/81 (97) 99 Room Air 02/23/17 16:31 91 16 134/89 (104) 98 Room Air 02/23/17 15:00 69 21 141/76 (97) 99 Room Air 02/23/17 14:34 20 98 Room Air 02/23/17 13:30 21 02/23/17 13:30 98.0 79 20 109/71 (84) 99 Room Air 02/23/17 13:04 97.8 89 16 116/70 (85) 97 Laboratory Test 02/23/17 14:53 02/23/17 15:05 Urine Color YELLOW Urine Turbidity CLEAR Urine pH 6.5 Urine Specific [place] 1.030 Urine Protein NEG mg/dL Urine Glucose (UA) 1000 mg/dL Urine Ketones NEG mg/dL Urine Occult Blood NEG Urine Nitrite NEG Urine Bilirubin NEG Urine Urobilinogen LESS THAN 2.0 MG/DL Urine Leukocyte Esterase NEG Urine RBC 1 /hpf Urine WBC LESS THAN 1 /hpf Urine Squamous Epithelial Cells 1 /hpf Microscopic Urinalysis Comment CULT NOT INDICATED White Blood Count 8.5 TH/MM3 Red Blood Count 3.35 MIL/MM3 Hemoglobin 9.9 GM/DL Hematocrit 30.2 % Mean Corpuscular Volume 90.0 FL Mean Corpuscular Hemoglobin 29.5 PG Mean Corpuscular Hemoglobin Concent 32.8 % Red Cell Distribution Width 18.6 % Platelet Count 410 TH/MM3 Mean Platelet Volume 11.3 FL CBC Comment AUTO DIFF Differential Total Cells Counted 100 Neutrophils % (Manual) 84 % Band Neutrophils % 2 % Lymphocytes % 11 % Monocytes % 3 % Neutrophils # (Manual) 7.3 TH/MM3 Differential Comment FINAL DIFF MANUAL Platelet Estimate HIGH Platelet Morphology Comment ENLARGED Target Cells 3+ Prothrombin Time 10.4 SEC Prothromb Time International Ratio 0.9 RATIO Activated Partial Thromboplast Time 25.9 SEC Blood Urea Nitrogen 8 MG/DL Creatinine 0.37 MG/DL Random Glucose 390 MG/DL Total Protein 6.5 GM/DL Albumin 2.3 GM/DL Calcium Level 8.6 MG/DL Alkaline Phosphatase 1592 U/L Aspartate Amino Transf (AST/SGOT) 115 U/L Alanine Aminotransferase (ALT/SGPT) 88 U/L Total Bilirubin 3.2 MG/DL Sodium Level 136 MEQ/L Potassium Level 3.3 MEQ/L Chloride Level 103 MEQ/L Carbon Dioxide Level 25.8 MEQ/L Anion Gap 7 MEQ/L Estimat Glomerular Filtration Rate 188 ML/MIN Lactic Acid Level 0.7 mmol/L Lipase 1348 U/L Physical Examination HEENT: normocephalic; atraumatic; no jaundice. Throat is clear. NECK: Neck is supple, no JVD, no lymphadenopathy. CHEST: Chest is clear to auscultation and percussion. CARDIAC: Regular rate and rhythm with no murmur gallop or rubs. ABDOMEN: Soft, nondistended, diffused tenderness;bowel sounds are present in all four quadrants. EXTREMITIES:BLE edema. SKIN: Normal; no rash; no jaundice. CAN SORTER: No focal deficits; alert and oriented times three. (Rita Burgos) Assessment and Plan Plan - RUQ pain associated with bloating, nausea, swelling. Lipase is 1348. 02/14/17 CT of the abdomen and pelvis showed moderate ascites, increased from January 14. Liver cirrhosis. Splenectomy. Interval placement of biliary stent without significant ductal dilatation. 2. Moderate size left effusion increased from January 14. 3. Moderate anasarca. 4. Nonobstructive left renal calculus She is S/P US Guided paracentesis (02/15/17)---> 2,700cc removed. Peritoneal WBC 331. RBC 281. Cx negative - Diarrhea. for few days multiple hospitalizations and courses of antibiotics. Will check for CDiff, stool studies. - Liver cirrhosis. 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 Cytoplasmic inclusions suggestive of Alpha 1 Antitrypsin are present as may be observed in cirrhotic livers however it is suggested that serologic studies be performed. The pathological features present in this biopsy material are different from that observed in the liver biopsy of 01/19/14. She is followed by Dr. Plummer at [facility]. She was seen earlier this month and has follow up appointment next month. - Recurrent cholangitis, biliary strictures, obstruction with abdominal pain. Not sure if she had an ERCP with stent at [facility]. LFTs seem to be at her baseline. - Anemia. No acute blood loss. .2 - Gastroparesis. Dx a few months ago - DM per attending. 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 PLAN: - NPO/ can have few ice chips - Aggressive IV hydration - Pain and antiemetics meds - Ceftriaxone - CBC, CMP, lipase in am - US to asses for ascites - Stool studies - She had multiple CTs this year alone, will discuss with Dr. Israel if she would like to have another one done - Obtain records from [facility], recent hospitalization, Dr. Plummer - Supportive care - Further recommendations to follow based on results of above - Pt seen and examined by Dr. Israel and myself and this note is written on her behalf (Rita Burgos) Physician Comments seen, examined agree with above clear liquid diet supportive care (Edel Israel MD) Rita Burgos Feb 24, 2017 09:27 Edel Israel MD Feb 24, 2017 15:23
[2017-02-24] MEDS ORDERED: GLUCAGON 1 MG/ML VIAL OTHER PRN (10:45)
[2017-02-24] MEDS ORDERED: PLEASE DISCONTINUE PREVIOUS SUPPLEMENTAL SCALE INSULIN ORDERS ONE (10:45)
[2017-02-24] MEDS ORDERED: DEXTROSE 50% IN WATER 50 ML VIAL(D50) IV PUSH PRN (10:45)
--- NOTE | 2017-02-24 11:05 | RADRPT ---
EXAM DATE/TIME: 02/24/2017 09:55 [place] COMPARISON: CT ABDOMEN & PELVIS W CONTRAST, February 14, 2017, 22:40. US GUIDED ABD PARACENTESIS, February 15, 2017, 8:32. INDICATIONS : Cirrhosis. MEDICAL HISTORY : Enlarged liver. Cholangitis. Diabetes. Kidney stones. Liver tumor. Carcinoma, non-hodgkins lymp galileo. Chemotherapy. Cirrhosis. MRSA. SURGICAL HISTORY : Splenectomy. Liver biopsy. Bile duct stent. Mass removal lower left abdomen. ENCOUNTER: Initial ACUITY: 2 months PAIN SCORE: 7/10 LOCATION: Bilateral upper quadrant MEASUREMENTS: LIVER: 18.1 cm length COMMON DUCT: 3 mm RIGHT KIDNEY: 13.4 x 6.8 x 5.6 cm SPLEEN: NOT VISUALIZED. cm length FINDINGS: LIVER: The liver is heterogeneous in echotexture with a nodular contour suggesting moderate cirrhosis. There is ascites within the upper abdomen. No intrahepatic biliary duct dilation is identified. COMMON DUCT: No intraluminal mass or stone visualized. GALLBLADDER: Not identified. PANCREAS: The visualized portions are within normal limits. RIGHT KIDNEY: No hydronephrosis, stone or mass. SPLEEN: Not identified. CONCLUSION: 1. Heterogeneous, cirrhotic appearing liver. No definite focal mass or intrahepatic biliary ductal di lation identified. 2. Ascites. 3. The patient is post splenectomy and cholecystectomy. 4. The right kidney is normal in appearance. Farzad Morales MD on February 24, 2017 at 11:01 Board Certified Radiologist. This report was verified electronically.
[2017-02-24] MEDS ORDERED: INSULIN DETEMIR 100 UNITS/ML VIAL SQ ONE (12:00)
[2017-02-24] MEDS ORDERED: MEDIUM DOSE INSULIN NOVOLOG SUPPLEMENTAL SCALE SQ SCH (12:00)
[2017-02-24] MEDS: SODIUM CHLORIDE 0.9% FLUSH 10 ML FLUSH IV FLUSH SCH ×2 (12:09→20:46)
[2017-02-24] MEDS: cefTRIAXone INJ 1,000 MG in SODIUM CHLORIDE 0.9% INJ 100 ML IV SCH ×2 (12:09→21:57)
[2017-02-24 13:49] LABS: ALT (GPT) 80 U/L (10-53); ANION GAP 10 MEQ/L (5-15); AST (GOT) 129 U/L (15-37); BICARBONATE 24.9 MEQ/L (21.0-32.0); BLOOD UREA NITROGEN 5 MG/DL (7-18); CHLORIDE 104 MEQ/L (98-107); GLOMERULAR FILTRATION RATE 533 ML/MIN (>89); POTASSIUM 3.1 MEQ/L (3.5-5.1); SODIUM (NA) 139 MEQ/L (136-145)
[2017-02-24 13:56] LABS: ALKALINE PHOSPHATASE 1536 U/L (45-117); TOTAL BILIRUBIN ADULT 2.6 MG/DL (0.2-1.0)
--- NOTE | 2017-02-24 17:05 | HHI.PR ---
Subjective Remarks laying in bed , still in abd pain no n/v bg 425 today while npo Objective Vitals Vital Signs Date Time Temp Pulse Resp B/P (MAP) Pulse Ox O2 Delivery O2 Flow Rate FiO2 02/24/17 15:46 98.2 67 16 106/68 (81) 100 02/24/17 12:18 97.6 78 16 99/65 (76) 98 02/24/17 08:28 98.1 86 16 101/64 (76) 96 02/24/17 04:00 97.8 87 18 113/74 (87) 99 02/24/17 00:00 96.8 94 18 110/66 (81) 99 02/23/17 20:00 97.8 73 18 107/69 (82) 100 02/23/17 18:56 02/23/17 17:40 78 21 130/81 (97) 99 Room Air Result Diagram: 02/23/17 1505 02/24/17 1238 Objective Remarks GENERAL: This is a thin appearing, well-developed patient, in no apparent distress. SKIN: Warm and dry. HEAD: Normocephalic. No temporal or scalp tenderness. EYES: Pupils equal round and reactive. Extraocular motions intact. Positive mild scleral icterus. No injection or drainage. ENT: Nose without bleeding. Throat without erythema. Uvula midline. Airway patent. NECK: Trachea midline. Supple. CARDIOVASCULAR: Regular rate and rhythm without murmurs, gallops, or rubs. RESPIRATORY: Clear to auscultation. Breath sounds equal bilaterally. No wheezes , rales, or rhonchi. GASTROINTESTINAL: Abdomen soft, ascites noted. Tenderness to bilateral flank area, right upper quadrant, mid epigastric region MUSCULOSKELETAL: Extremities without clubbing, cyanosis, bilateral lower extremity +2 edema. NEUROLOGICAL: Awake and alert. Cranial nerves II through XII intact. Motor and sensory grossly within normal limits. Normal speech. A/P Problem List: (1) Non-Hodgkin lymphoma ICD Code: C85.90 - Non-Hodgkin lymphoma Status: Acute (2) Pancreatitis ICD Code: K85.9 - Pancreatitis Status: Acute (3) Liver disease, chronic, with cirrhosis ICD Code: K74.60 - Unspecified cirrhosis of liver; K76.9 - Liver disease, unspecified Status: Chronic (4) DM (diabetes mellitus) ICD Code: E11.9 - Type 2 diabetes mellitus without complications Status: Chronic Assessment and Plan 02/24: appreciate GI consult , npo , with hydration , monitor LFT. hyperglycemia , BG 400s despite ISS , given 3 units NovoLog with close monitoring of BG q3h A/P Patient is a 46 year old female with primary medical history of liver failure, non-Hodgkin's lymphoma, DM 2 who came into the hospital for complaints of increasing abdominal pain, leg swelling. Pancreatitis, acute - Lipase 1348 - Nothing by mouth for now - Hold off IV fluids since patient has liver failure and anasarca - Pain management - Follow up labs in a.m. Liver failure, acute on chronic - Reports of jaundice, anasarca, bilateral lowers extremity edema - Newly followed in [facility] - Trend LFTs. Compared to prior admission 02/18/17 LFTs have improved slightly - Consult GI for recommendations. Patient has biliary stent prior. - Patient has recently had paracentesis 02/15/17 removed 2700 cc of clear, yellow fluid - 02/14/17 CT of the abdomen and pelvis reviewed by me showed moderate ascites , increased from January 14. Liver cirrhosis. Splenectomy. Interval placement of biliary stent without significant ductal dilatation. 2. Moderate size left effusion increased from January 14. 3. Moderate anasarca. 4. Nonobstructive left renal calculus DM 2, hyperglycemia - Blood glucose 390 - Insulin sliding scale. Monitor Accu-Cheks - Monitor for hypoglycemia - Check hemoglobin A1c DVT prop SCDs Problem Qualifiers (1) Pancreatitis: Qualified Codes: K85.90 - Acute pancreatitis without necrosis or infection, unspecified Elizabeth Mac MD Feb 24, 2017 17:05
[2017-02-25] VITALS (10 sets, daily range): BP systolic 98–106; BP diastolic 58–70; PULSE 60–103; RESP 17–22; TEMP 98.1–99.7; O2SAT 97–98
[2017-02-25] MEDS: HYDROmorphone HCL PF 1 MG/ML VIAL IV PUSH PRN ×5 (00:52→22:31)
[2017-02-25] MEDS: HEPARIN SODIUM - SQ 10,000 UNITS/ML VIAL SQ SCH ×2 (05:05→17:30)
[2017-02-25 07:42] LABS: BASOPHIL # 0.1 TH/MM3 (0-0.2); BASOPHIL % 1.7 % (0.0-2.0); EOSINOPHIL # 0.1 TH/MM3 (0-0.4); EOSINOPHIL % 2.1 % (0.0-4.0); HEMATOCRIT 29.8 % (35.0-46.0); LYMPHOCYTE # 0.6 TH/MM3 (1.0-4.8); MEAN CELL VOLUME 88.9 FL (80.0-100.0); MEAN CORPUSCULAR HEMOGLOBIN 28.6 PG (27.0-34.0); MEAN CORPUSCULAR HGB CONC 32.2 % (32.0-36.0); MONO % 15.5 % (0.0-8.0); NEUT % 71.7 % (16.0-70.0); PLATELET COUNT 383 TH/MM3 (150-450); RED BLOOD COUNT 3.36 MIL/MM3 (4.00-5.30); RED CELL DISTRIBUTION WIDTH 18.6 % (11.6-17.2); WHITE BLOOD COUNT 6.9 TH/MM3 (4.0-11.0)
[2017-02-25 07:57] LABS: HEMO FLAGS AUTO DIFF
[2017-02-25] MEDS: INSULIN ASPART SUPPLEMENTAL SCALE SQ SCH ×4 (08:00→20:29)
[2017-02-25 08:13] LABS: ANION GAP 7 MEQ/L (5-15); AST (GOT) 174 U/L (15-37); BLOOD UREA NITROGEN 5 MG/DL (7-18); CHLORIDE 104 MEQ/L (98-107); GLOMERULAR FILTRATION RATE 495 ML/MIN (>89); POTASSIUM 3.4 MEQ/L (3.5-5.1); SODIUM (NA) 138 MEQ/L (136-145)
[2017-02-25 08:15] LABS: ALT (GPT) 88 U/L (10-53)
--- NOTE | 2017-02-25 08:17 | HHI.GIFU ---
Subjective Remarks Resting in bed. Continues to have epigastric pain radiating to both sides of abdomen and nausea without vomiting. No fevers/chills. States she is on a clear liquid diet and would like this advanced to a regular diet. (Aliyah Mosher) Objective Vitals I&O Vital Signs Date Time Temp Pulse Resp B/P (MAP) Pulse Ox O2 Delivery O2 Flow Rate FiO2 02/25/17 07:38 21 02/25/17 06:03 18 02/25/17 03:55 60 02/25/17 03:32 98.5 70 17 103/63 (76) 98 02/24/17 23:55 89 18 106/61 (76) 97 02/24/17 23:24 70 02/24/17 20:01 72 02/24/17 19:45 98.5 88 18 111/75 (87) 99 02/24/17 15:46 98.2 67 16 106/68 (81) 100 02/24/17 15:00 77 02/24/17 12:18 97.6 78 16 99/65 (76) 98 02/24/17 08:28 98.1 86 16 101/64 (76) 96 I/O 02/24/17 02/24/17 02/24/17 02/25/17 02/25/17 02/25/17 07:00 15:00 23:00 07:00 15:00 23:00 Intake Total 300 ml Balance 300 ml Intake IV Total 300 ml Laboratory Laboratory Tests Test 02/24/17 12:38 02/24/17 20:00 02/25/17 06:35 Blood Urea Nitrogen 5 Creatinine LESS THAN 0.15 Random Glucose 87 Total Protein 5.7 Albumin 2.0 Calcium Level 8.8 Alkaline Phosphatase 1536 Aspartate Amino Transf (AST/SGOT) 129 Alanine Aminotransferase (ALT/SGPT) 80 Total Bilirubin 2.6 Sodium Level 139 Potassium Level 3.1 Chloride Level 104 Carbon Dioxide Level 24.9 Anion Gap 10 Estimat Glomerular Filtration Rate 533 Lipase 101 White Blood Count 6.9 Red Blood Count 3.36 Hemoglobin 9.6 Hematocrit 29.8 Mean Corpuscular Volume 88.9 Mean Corpuscular Hemoglobin 28.6 Mean Corpuscular Hemoglobin Concent 32.2 Red Cell Distribution Width 18.6 Platelet Count 383 Mean Platelet Volume 11.1 Neutrophils (%) (Auto) 71.7 Lymphocytes (%) (Auto) 9.0 Monocytes (%) (Auto) 15.5 Eosinophils (%) (Auto) 2.1 Basophils (%) (Auto) 1.7 Neutrophils # (Auto) 5.0 Lymphocytes # (Auto) 0.6 Monocytes # (Auto) 1.1 Eosinophils # (Auto) 0.1 Basophils # (Auto) 0.1 CBC Comment AUTO DIFF Imaging Last Impressions Liver Ultrasound 02/24/17 0000 Signed Impressions: Service Date/Time: Friday, February 24, 2017 09:55 - CONCLUSION: 1. Heterogeneous, cirrhotic appearing liver. No definite focal mass or intrahepatic biliary ductal dilation identified. 2. Ascites. 3. The patient is post splenectomy and cholecystectomy. 4. The right kidney is normal in appearance. Farzad Morales MD Physical Exam HEENT: Normocephalic; atraumatic; no jaundice. CHEST: Resp. even/unlabored CARDIAC: RRR ABDOMEN: Soft, nondistended, mild epigastric tenderness; hepatosplenomegaly; bowel sounds are present in all four quadrants. Mild ascites EXTREMITIES: Trace ble edema. SKIN: Normal; no rash; no jaundice. HOSPITAL EDUCATION COORDINATOR: No focal deficits; alert and oriented times three. (Aliyah Mosher) Assessment and Plan Plan ASSESSMENT: - RUQ pain associated with bloating, nausea, swelling. US (02/24/17)----> heterogeneous, cirrhotic appearing liver. No definite focal mass or intrahepatic biliary ductal dilatation identified. Ascites. The patient is post splenectomy and cholecystectomy. The right kidney is normal in appearance. WBC unremarkable. Lipase was 1348 on admission, normalized yesterday. Today's labs are pending, but her LFTs were stable/at baseline yesterday. Clinically, c/o pain still, but requesting that her diet be changed to regular diet. - Diarrhea. for few days multiple hospitalizations and courses of antibiotics. Will check for CDiff, stool studies. None documented. - Ascites. Recently evaluated at [facility] for possible TIPS, but was not a candidate secondary to portal vein thrombosis and low EF. She was discharged on Lasix 40mg po daily, Spironolactone 50mg po BID. She reports that she was taking this, but it is not listed on home meds. She had a US Guided paracentesis ()---> 2,700cc removed. Cx was negative. and it was thought that she did NOT have SBP based on neutrophil count and negative cx. - Liver cirrhosis. 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 Cytoplasmic inclusions suggestive of Alpha 1 Antitrypsin are present as may be observed in cirrhotic livers however it is suggested that serologic studies be performed. The pathological features present in this biopsy material are different from that observed in the liver biopsy of 01/19/14. She is followed by Dr. Plummer at [facility]. She was seen earlier this month and has follow up appointment next month. - Recurrent cholangitis, biliary strictures, obstruction. She does not have any signs of cholangitis at this time. Her LFTs are at her baseline. She did not recently have ERCP at [facility] (records reviewed during last hospitalization). - Anemia. No acute blood loss. 8. - Gastroparesis. Dx a few months ago - DM per attending. 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 PLAN: - 2 gram sodium diet - Add Lasix 40mg po daily - Add Spironolactone 50mg po BID - Monitor labs - Stool studies if diarrhea, she is not currently having - Supportive care - Further recommendations to follow based on results of above - Pt seen and examined by Dr. Jarvis and myself and this note is written on his behalf (Aliyah Mosher) Physician Comments Seen and examined with NICKIE, doing better . Monitor labs, advance diet. Fu at [facility]. (Madison Jarvis MD) Aliyah Mosher Feb 25, 2017 08:17 Madison Jarvis MD Feb 25, 2017 11:13
[2017-02-25 08:29] LABS: ALKALINE PHOSPHATASE 1577 U/L (45-117); TOTAL BILIRUBIN ADULT 2.4 MG/DL (0.2-1.0)
[2017-02-25 08:44] LABS: PLATELET ESTIMATE SMEAR NORMAL (NORMAL); PLATELET MORPHOLOGY ENLARGED (NORMAL); TARGET CELLS 1+ (NORMAL)
[2017-02-25 08:45] LABS: SCAN/DIFF AUTO DIFF CONFIRMED
[2017-02-25] MEDS: DOCUSATE SODIUM 50 MG/SENNA 8.6 MG TAB PO SCH ×2 (09:00→20:28)
[2017-02-25] MEDS: cefTRIAXone INJ 1,000 MG in SODIUM CHLORIDE 0.9% INJ 100 ML IV SCH ×2 (10:07→22:30)
[2017-02-25] MEDS: FUROSEMIDE 40 MG TAB PO SCH (10:08)
[2017-02-25] MEDS: SODIUM CHLORIDE 0.9% FLUSH 10 ML FLUSH IV FLUSH SCH ×2 (10:08→20:28)
[2017-02-25] MEDS: SPIRONOLACTONE 50 MG TAB PO SCH ×2 (10:41→17:30)
[2017-02-25 10:44] LABS: HEMOGLOBIN A1a 1.2 %; HEMOGLOBIN A1b 0.7 %; HEMOGLOBIN Ao 83.1 %; HEMOGLOBIN F 1.3 %; HEMOGLOBIN LA1C 1.4 %; HEMOGLOBIN P3 4.5 %
--- NOTE | 2017-02-25 19:56 | HHI.PR ---
Subjective Remarks Follow-up for abdominal pain, diabetes, liver failure. Pt seen and examined. Pt reporting abdominal pain going to her right flank. Pt reported she is receiving pain medication that "helps a bit." Pt reported her abdomen is "bigger than I like" and is due to swelling. She reported having had "3L of fluid drained off my stomach a few months ago." Pt reported having had 'swollen legs". No other acute issues noted or reported by pt. Objective Vitals Vital Signs Date Time Temp Pulse Resp B/P (MAP) Pulse Ox O2 Delivery O2 Flow Rate FiO2 02/25/17 15:56 98.5 92 22 104/64 (77) 97 02/25/17 12:36 98.1 88 22 103/70 (81) 98 02/25/17 08:09 98.2 67 20 98/58 (71) 97 02/25/17 07:38 21 02/25/17 06:03 18 02/25/17 03:55 60 02/25/17 03:32 98.5 70 17 103/63 (76) 98 02/24/17 23:55 89 18 106/61 (76) 97 02/24/17 23:24 70 02/24/17 20:01 72 02/24/17 19:45 98.5 88 18 111/75 (87) 99 I/O 02/24/17 02/24/17 02/24/17 02/25/17 02/25/17 02/25/17 07:00 15:00 23:00 07:00 15:00 23:00 Intake Total 300 ml 100 ml Output Total 950 ml 700 ml Balance 300 ml -850 ml -700 ml Intake IV Total 300 ml 100 ml Output Urine Total 950 ml 700 ml Result Diagram: 02/25/17 0635 02/25/17 0635 Imaging Last Impressions Liver Ultrasound 02/24/17 0000 Signed Impressions: Service Date/Time: Friday, February 24, 2017 09:55 - CONCLUSION: 1. Heterogeneous, cirrhotic appearing liver. No definite focal mass or intrahepatic biliary ductal dilation identified. 2. Ascites. 3. The patient is post splenectomy and cholecystectomy. 4. The right kidney is normal in appearance. Farzad Morales MD Objective Remarks GENERAL: Pt encountered laying a bed, thin in appearance (BMI 18.9), NAD. SKIN: Warm and dry. HEAD: Normocephalic. EYES: No scleral icterus. No injection or drainage. NECK: Supple, trachea midline. No lymphadenopathy. CARDIOVASCULAR: Regular rate and rhythm without murmurs, gallops, or rubs. RESPIRATORY: Breath sounds equal bilaterally. No wheezing, rhonchi or crackles. No accessory muscle use. GASTROINTESTINAL: Abdomen soft, diffusely tender with guarding noted, distended. MUSCULOSKELETAL: No cyanosis, or edema. PSYCHIATRIC: Mood and affect appropriate, no overt signs of anxiety/depression, speech was clear and fluent. Medications and IVs Current Medications Medications (Trade) Dose Ordered Sig/Celso Route Start Time Stop Time Status Last Admin (NS Flush) 2 ml UNSCH PRN IV FLUSH 02/23/17 17:30 (NS Flush) 2 ml BID IV FLUSH 02/23/17 21:00 02/25/17 10:08 (Zofran Inj) 4 mg Q6H PRN IVP 02/23/17 17:30 (Heparin Inj) 5,000 units Q12H SQ 02/23/17 18:00 02/25/17 17:30 (Narcan Inj) 0.4 mg UNSCH PRN IV PUSH 02/23/17 17:30 (Tish-Colace) 1 tab BID PO 02/23/17 21:00 (Milk Of Magnesia Liq) 30 ml Q12H PRN PO 02/23/17 17:30 (Senokot) 17.2 mg Q12H PRN PO 02/23/17 17:30 (Dulcolax Supp) 10 mg DAILY PRN RECTAL 02/23/17 17:30 (Lactulose Liq) 30 ml DAILY PRN PO 02/23/17 17:30 (Dilaudid Pf Inj) 0.2 mg Q4H PRN IV PUSH 02/23/17 18:30 02/25/17 14:27 (Dilaudid Pf Inj) 0.5 mg Q4H PRN IV PUSH 02/23/17 18:30 02/25/17 18:36 Ceftriaxone Sodium 1000 mg/ Sodium Chloride 100 ml @ 200 mls/hr Q12H IV 02/24/17 10:00 02/25/17 10:07 (D50w (Vial) Inj) 50 ml UNSCH PRN IV PUSH 02/24/17 10:45 (Glucagon Inj) 1 mg UNSCH PRN OTHER 02/24/17 10:45 (NovoLOG SUPPLEMENTAL SCALE) 1 ACHS SLIDING SCALE SQ 02/24/17 17:00 02/25/17 17:00 (Lasix) 40 mg DAILY PO 02/25/17 09:00 02/25/17 10:08 (Aldactone) 50 mg BID@09,18 PO 02/25/17 09:00 02/25/17 17:30 A/P Problem List: (1) Non-Hodgkin lymphoma ICD Code: C85.90 - Non-Hodgkin lymphoma Status: Acute (2) Pancreatitis ICD Code: K85.9 - Pancreatitis Status: Acute (3) Liver disease, chronic, with cirrhosis ICD Code: K74.60 - Unspecified cirrhosis of liver; K76.9 - Liver disease, unspecified Status: Chronic (4) DM (diabetes mellitus) ICD Code: E11.9 - Type 2 diabetes mellitus without complications Status: Chronic Assessment and Plan Patient is a 46 year old female with primary medical history of liver failure, non-Hodgkin's lymphoma, DM 2 who came into the hospital for complaints of increasing abdominal pain, leg swelling. Acute pancreatitis: Lipase level 75. GI has ordered healthy heart diet. Pain medication administered on PRN basis. Liver failure, acute on chronic: LFT's increased over past 24 hours. Albumin 1.8, decreased from 2.3 upon admission. Check labs in am. GI following. Diabetes: A1c 7.8. Pt on sliding scale insulin protocol.13 units given over past 24 hours. Pancreatitis, acute - Lipase 1348 - Nothing by mouth for now - Hold off IV fluids since patient has liver failure and anasarca - Pain management - Follow up labs in a.m. Liver failure, acute on chronic - Reports of jaundice, anasarca, bilateral lowers extremity edema - Newly followed in [facility] - Trend LFTs. Compared to prior admission 02/18/17 LFTs have improved slightly - Consult GI for recommendations. Patient has biliary stent prior. - Patient has recently had paracentesis 02/15/17 removed 2700 cc of clear, yellow fluid - 02/14/17 CT of the abdomen and pelvis reviewed by me showed moderate ascites , increased from January 14. Liver cirrhosis. Splenectomy. Interval placement of biliary stent without significant ductal dilatation. 2. Moderate size left effusion increased from January 14. 3. Moderate anasarca. 4. Nonobstructive left renal calculus DM 2, hyperglycemia - Blood glucose 390 - Insulin sliding scale. Monitor Accu-Cheks - Monitor for hypoglycemia - Check hemoglobin A1c DVT prop SCDs Case discussed with pt and Dr. Mac Problem Qualifiers (1) Pancreatitis: Qualified Codes: K85.90 - Acute pancreatitis without necrosis or infection, unspecified (2) DM (diabetes mellitus): Qualified Codes: E11.65 - Type 2 diabetes mellitus with hyperglycemia; Z79.4 - [facility] (current) use of insulin Davy Del Real Jr. Feb 25, 2017 19:56
[2017-02-26] MEDS: HYDROmorphone HCL PF 1 MG/ML VIAL IV PUSH PRN ×4 (03:15→16:43)
[2017-02-26] MEDS: HEPARIN SODIUM - SQ 10,000 UNITS/ML VIAL SQ SCH (06:42)
[2017-02-26 07:59] VITALS: BP 107/68; PULSE 76; RESP 22; TEMP 98; O2SAT 98
--- NOTE | 2017-02-26 09:14 | HHI.PR ---
Subjective Remarks Written by Chelly Mendez, acting as scribe for Dr. Mac on 02/26/17 at 11:46. Follow up abdominal pain, DM and liver failure. Patient seen and examined today , lying in bed comfortably in nad. Denies any new acute complaint overnight. Slept well. Has been eating well, denies any associated vomiting or diarrhea. Does complain of intermittent nausea. Ambulating well. Denies any recent fever, chills, cough, chest pain, shortness of breath, dysuria. Does complain of diffuse abdominal tenderness to palpation. Objective Vitals Vital Signs Date Time Temp Pulse Resp B/P (MAP) Pulse Ox O2 Delivery O2 Flow Rate FiO2 02/26/17 07:59 98.0 76 22 107/68 (81) 98 02/25/17 23:45 98 02/25/17 23:25 99.1 97 18 106/60 (75) 97 02/25/17 20:00 103 02/25/17 19:57 97 02/25/17 19:42 99.7 93 18 105/67 (80) 98 02/25/17 15:56 98.5 92 22 104/64 (77) 97 02/25/17 12:36 98.1 88 22 103/70 (81) 98 I/O 02/25/17 02/25/17 02/25/17 02/26/17 02/26/17 02/26/17 07:00 15:00 23:00 07:00 15:00 23:00 Intake Total 100 ml Output Total 950 ml 700 ml Balance -850 ml -700 ml Intake IV Total 100 ml Output Urine Total 950 ml 700 ml Result Diagram: 02/25/17 0635 02/25/17 0635 Imaging Last Impressions Liver Ultrasound 02/24/17 0000 Signed Impressions: Service Date/Time: Friday, February 24, 2017 09:55 - CONCLUSION: 1. Heterogeneous, cirrhotic appearing liver. No definite focal mass or intrahepatic biliary ductal dilation identified. 2. Ascites. 3. The patient is post splenectomy and cholecystectomy. 4. The right kidney is normal in appearance. Farzad Morales MD Objective Remarks GENERAL: Pt encountered laying in bed, thin in appearance, in NAD. SKIN: Warm and dry. No rash. HEAD: Normocephalic. PERRL. IEOMs. No scleral icterus. No injection or drainage. NECK: Supple, trachea midline. No lymphadenopathy. CARDIOVASCULAR: Regular rate and rhythm without murmurs, gallops, or rubs. S1 and S2 present. RESPIRATORY: Breath sounds equal bilaterally. No wheezing, rhonchi or crackles. No accessory muscle use. GASTROINTESTINAL: Abdomen soft, diffusely tender with guarding noted, distended. Active bs x 4q. MUSCULOSKELETAL: No cyanosis, or edema. PSYCHIATRIC: Mood and affect appropriate, no overt signs of anxiety/depression, speech was clear and fluent. A/P Problem List: (1) Non-Hodgkin lymphoma ICD Code: C85.90 - Non-Hodgkin lymphoma Status: Acute (2) Pancreatitis ICD Code: K85.9 - Pancreatitis Status: Acute (3) Liver disease, chronic, with cirrhosis ICD Code: K74.60 - Unspecified cirrhosis of liver; K76.9 - Liver disease, unspecified Status: Chronic (4) DM (diabetes mellitus) ICD Code: E11.9 - Type 2 diabetes mellitus without complications Status: Chronic Assessment and Plan Patient is a 46 year old female with primary medical history of liver failure, non-Hodgkin's lymphoma, DM 2 who came into the hospital for complaints of increasing abdominal pain, leg swelling. Pancreatitis, acute - Lipase 1348 --> 75. - GI has been following patient, appreciate input. Awaiting stool cultures. - Continue heart healthy diet. - Hold off IV fluids since patient has liver failure and anasarca - Pain management Liver failure, acute on chronic - Reports of jaundice, anasarca, bilateral lowers extremity edema - Newly followed in [facility] - Trend LFTs. Compared to prior admission 02/18/17 LFTs have improved slightly - Patient has biliary stent prior. - Patient has recently had paracentesis 02/15/17 removed 2700 cc of clear, yellow fluid - 02/14/17 CT of the abdomen and pelvis reviewed by me showed moderate ascites , increased from January 14. Liver cirrhosis. Splenectomy. Interval placement of biliary stent without significant ductal dilatation. 2. Moderate size left effusion increased from January 14. 3. Moderate anasarca. 4. Nonobstructive left renal calculus - Continue Lasix 40 mg PO daily and Spironolactone 50 mg PO BID. DM 2, hyperglycemia - Blood sugars uncontrolled. Patient states that she usually has labile blood sugars at home. Takes Levemir 30 units sq HS. Will give Levemir 15 units sq now and 15 units tonight. - Insulin sliding scale. Monitor Accu-Cheks - Monitor for hypoglycemia - hemoglobin A1c 7.8 DVT prophylaxis: SCDs Case discussed with pt and Dr. Mac 1400: Spoke to GI who said to have patient follow up in office and OK to DC today. Patient tolerating PO intake. Denies any vomiting. Blood sugars are elevated, given Levemir 15 units x 1 and encouraged patient to take additional Levemir 15 units tonight. Random glucose 243. Patient agreeable with plan and eager to go home. Discharge Planning Discharge today. Attending Statement This note was transcribed by scribe [Chelly Mendez ]. I, Dr. Elizabeth Mac personally performed the history, physical exam, and medical decision making; and confirmed the accuracy of the information in the transcribed note. Authenticated by Dr. Elizabeth Mac on 02/26/17 at 11:46. Problem Qualifiers (1) Pancreatitis: Qualified Codes: K85.90 - Acute pancreatitis without necrosis or infection, unspecified (2) DM (diabetes mellitus): Qualified Codes: E11.65 - Type 2 diabetes mellitus with hyperglycemia; Z79.4 - [facility] Chelly Mendez Feb 26, 2017 09:13 Elizabeth Mac MD Feb 26, 2017 13:47
[2017-02-26] MEDS: FUROSEMIDE 40 MG TAB PO SCH (10:15)
[2017-02-26] MEDS: DOCUSATE SODIUM 50 MG/SENNA 8.6 MG TAB PO SCH (10:15)
[2017-02-26] MEDS: SPIRONOLACTONE 50 MG TAB PO SCH (10:15)
[2017-02-26] MEDS: INSULIN ASPART SUPPLEMENTAL SCALE SQ SCH (10:26)
[2017-02-26 11:39] VITALS: BP 109/74; PULSE 87; RESP 24; TEMP 98.5; O2SAT 99
[2017-02-26] MEDS ORDERED: INSULIN DETEMIR 100 UNITS/ML VIAL SQ SCH ×2 (11:45→21:00)
[2017-02-26] MEDS: SODIUM CHLORIDE 0.9% FLUSH 10 ML FLUSH IV FLUSH SCH (12:00)
[2017-02-26] MEDS: cefTRIAXone INJ 1,000 MG in SODIUM CHLORIDE 0.9% INJ 100 ML IV SCH (12:02)
[2017-02-26 13:03] LABS: HEMATOCRIT 30.8 % (35.0-46.0); MEAN CELL VOLUME 88.9 FL (80.0-100.0); MEAN CORPUSCULAR HEMOGLOBIN 29.2 PG (27.0-34.0); MEAN CORPUSCULAR HGB CONC 32.8 % (32.0-36.0); PLATELET COUNT 357 TH/MM3 (150-450); RED BLOOD COUNT 3.47 MIL/MM3 (4.00-5.30); RED CELL DISTRIBUTION WIDTH 18.5 % (11.6-17.2); WHITE BLOOD COUNT 6.3 TH/MM3 (4.0-11.0)
[2017-02-26 13:11] LABS: HEMO FLAGS AUTO DIFF
[2017-02-26 13:36] LABS: BICARBONATE 23.6 MEQ/L (21.0-32.0); POTASSIUM 3.6 MEQ/L (3.5-5.1)
--- NOTE | 2017-02-26 13:52 | HHI.DCPOC ---
Discharge Care Plan Diagnosis: (1) Abdominal pain (2) Liver disease, chronic, with cirrhosis (3) DM (diabetes mellitus) (4) Elevated LFTs (5) hepatic cirrhosis/fibrosis/chronic hepatitis Additional Problems Abdominal pain Elevated blood sugars Goals to Promote Your Health * To prevent worsening of your condition and complications * To maintain your health at the optimal level Directions to Meet Your Goals Take your medications as prescribed Follow your dietary instruction Follow activity as directed Keep your appointments as scheduled Take your immunizations and boosters as scheduled If your symptoms worsen call your PCP, if no PCP go to Urgent Care Center or Emergency Room Smoking is Dangerous to Your Health. Avoid second hand smoke Call the 24-hour hour crisis hotline for domestic abuse at Chelly Mendez Feb 26, 2017 13:52
--- NOTE | 2017-02-26 13:52 | HHI.DS ---
Discharge Summary Admission Date Feb 23, 2017 at 16:54 Discharge Date: Feb 26, 2017 Admitting Diagnosis Pancreatitis, Anasarca (1) Non-Hodgkin lymphoma ICD Code: C85.90 - Non-Hodgkin lymphoma Status: Acute (2) Pancreatitis ICD Code: K85.9 - Pancreatitis Status: Acute (3) Liver disease, chronic, with cirrhosis ICD Code: K74.60 - Unspecified cirrhosis of liver; K76.9 - Liver disease, unspecified Status: Chronic (4) DM (diabetes mellitus) ICD Code: E11.9 - Type 2 diabetes mellitus without complications Status: Chronic Procedures see attached Brief History - From Admission Patient is a 46 year old female with primary medical history of liver failure, non-Hodgkin's lymphoma, DM 2 who came into the hospital for complaints of increasing abdominal pain, leg swelling. Patient states "my stomach is enlarged and is painful and also I have my legs and feet were swollen." Male Friend at the bedside, states that previous days ago in the swelling of her legs were more so than now and that she was also jaundiced. Patient states that abdominal pain is 10 over 10 more on the right upper quadrant associated with nausea, low-grade temperature of 99, radiating to the back, is not being relieved by anything or is not being aggravated by movement. States that she is newly getting established at [facility], not on transplant list yet as she is fairly new. Denies SOB/ dyspnea. Denies chest pain, palpitations, headaches, dizziness. Denies vomiting, diarrhea, constipation. Denies hematuria , dysuria. CBC/BMP: 02/26/17 1242 02/26/17 1242 Significant Findings Laboratory Tests Test 02/23/17 14:53 02/23/17 15:05 02/24/17 12:38 02/24/17 20:00 Urine Glucose (UA) 1000 mg/dL (NEG) Red Blood Count 3.35 MIL/MM3 (4.00-5.30) Hemoglobin 9.9 GM/DL (11.6-15.3) Hematocrit 30.2 % (35.0-46.0) Red Cell Distribution Width 18.6 % (11.6-17.2) Mean Platelet Volume 11.3 FL (7.0-11.0) Neutrophils % (Manual) 84 % (16-70) Platelet Estimate HIGH (NORMAL) Platelet Morphology Comment ENLARGED (NORMAL) Target Cells 3+ (NORMAL) Creatinine 0.37 MG/DL (0.50-1.00) LESS THAN 0.15 MG/DL Random Glucose 390 MG/DL (74-106) Albumin 2.3 GM/DL (3.4-5.0) 2.0 GM/DL (3.4-5.0) Alkaline Phosphatase 1592 U/L (45-117) 1536 U/L (45-117) Aspartate Amino Transf (AST/SGOT) 115 U/L (15-37) 129 U/L (15-37) Alanine Aminotransferase (ALT/SGPT) 88 U/L (10-53) 80 U/L (10-53) Total Bilirubin 3.2 MG/DL (0.2-1.0) 2.6 MG/DL (0.2-1.0) Potassium Level 3.3 MEQ/L (3.5-5.1) 3.1 MEQ/L (3.5-5.1) Lipase 1348 U/L (73-393) Blood Urea Nitrogen 5 MG/DL (7-18) Total Protein 5.7 GM/DL (6.4-8.2) Hemoglobin A1c 7.8 % (4.3-6.0) Test 02/25/17 06:35 02/26/17 12:42 Red Blood Count 3.36 MIL/MM3 (4.00-5.30) 3.47 MIL/MM3 (4.00-5.30) Hemoglobin 9.6 GM/DL (11.6-15.3) 10.1 GM/DL (11.6-15.3) Hematocrit 29.8 % (35.0-46.0) 30.8 % (35.0-46.0) Red Cell Distribution Width 18.6 % (11.6-17.2) 18.5 % (11.6-17.2) Mean Platelet Volume 11.1 FL (7.0-11.0) Neutrophils (%) (Auto) 71.7 % (16.0-70.0) Monocytes (%) (Auto) 15.5 % (0.0-8.0) Lymphocytes # (Auto) 0.6 TH/MM3 (1.0-4.8) Monocytes # (Auto) 1.1 TH/MM3 (0-0.9) Platelet Morphology Comment ENLARGED (NORMAL) Target Cells 1+ (NORMAL) Blood Urea Nitrogen 5 MG/DL (7-18) Creatinine 0.16 MG/DL (0.50-1.00) 0.21 MG/DL (0.50-1.00) Random Glucose 138 MG/DL (74-106) 243 MG/DL (74-106) Total Protein 5.4 GM/DL (6.4-8.2) Albumin 1.8 GM/DL (3.4-5.0) Alkaline Phosphatase 1577 U/L (45-117) Aspartate Amino Transf (AST/SGOT) 174 U/L (15-37) Alanine Aminotransferase (ALT/SGPT) 88 U/L (10-53) Total Bilirubin 2.4 MG/DL (0.2-1.0) Potassium Level 3.4 MEQ/L (3.5-5.1) Sodium Level 134 MEQ/L (136-145) Imaging Last Impressions Liver Ultrasound 02/24/17 0000 Signed Impressions: Service Date/Time: Friday, February 24, 2017 09:55 - CONCLUSION: 1. Heterogeneous, cirrhotic appearing liver. No definite focal mass or intrahepatic biliary ductal dilation identified. 2. Ascites. 3. The patient is post splenectomy and cholecystectomy. 4. The right kidney is normal in appearance. Farzad Morales MD PE at Discharge GENERAL: Pt encountered laying in bed, thin in appearance, in NAD. SKIN: Warm and dry. No rash. HEAD: Normocephalic. PERRL. IEOMs. No scleral icterus. No injection or drainage. NECK: Supple, trachea midline. No lymphadenopathy. CARDIOVASCULAR: Regular rate and rhythm without murmurs, gallops, or rubs. S1 and S2 present. RESPIRATORY: Breath sounds equal bilaterally. No wheezing, rhonchi or crackles. No accessory muscle use. GASTROINTESTINAL: Abdomen soft, diffusely tender with guarding noted, distended. Active bs x 4q. MUSCULOSKELETAL: No cyanosis, or edema. PSYCHIATRIC: Mood and affect appropriate, no overt signs of anxiety/depression, speech was clear and fluent. Pt update on day of discharge Follow up abdominal pain, DM and liver failure. Patient seen and examined today , lying in bed comfortably in [facility]. Denies any new acute complaint overnight. Slept well. Has been eating well, denies any associated vomiting or diarrhea. Does complain of intermittent nausea. Ambulating well. Denies any recent fever, chills, cough, chest pain, shortness of breath, dysuria. Does complain of diffuse abdominal tenderness to palpation. Hospital Course Patient is a 46 year old female with primary medical history of liver failure, non-Hodgkin's lymphoma, DM 2 who came into the hospital for complaints of increasing abdominal pain, leg swelling. Patient reportedly has been followed at [facility] for newly reported liver failure. 02/14/17 CT of the abdomen and pelvis reviewed by me showed moderate ascites, increased from January 14. Liver cirrhosis. Splenectomy. Interval placement of biliary stent without significant ductal dilatation. Moderate size left effusion increased from January 14. Moderate anasarca. Nonobstructive left renal calculus. Acute pancreatitis lipase of 1348 on presentation, decreased to 75. Gi followed patient during hospitalization, LFTs trended. Compared to prior admission LFTs have improved slightly. Patient has recently had paracentesis 02/15/17 removed 2700 cc of clear, yellow fluid. Continued Lasix 40 mg PO daily and Spironolactone 50 mg PO BID. Blood sugars were controlled in the beginning of hospitalization and uncontrolled later, Levemir was held due to NPO status. Patient states that she usually has labile blood sugars at home. Takes Levemir 30 units sq HS. Spoke to GI who said to have patient follow up in office and OK to [place] today. Patient tolerating PO intake. Denies any vomiting. Blood sugar is333, given Levemir 15 units x 1. and encouraged to check her BG q4 h and cover with ISS . Patient agreeable with plan and eager to go home. Pt Condition on Discharge: Stable Discharge Disposition: Discharge Home Discharge Time: > 30 minutes Discharge Instructions DIET: Follow Instructions for: Diabetic Diet (Also 2 gram sodium restricted diet) Speech Therapy-Diet Recommends: Regular Activities you can perform: Regular-No Restrictions Follow up Referrals: Gastroenterology - 1 Week PCP Follow-up - 1 Week New Medications: Furosemide (Furosemide) 40 Mg Tab 40 MG PO DAILY for ascites for 30 Days, #30 TAB Spironolactone (Aldactone) 50 Mg Tab 50 MG PO BID@,18 for ascites for 30 Days, #60 TAB Continued Medications: Insulin Human Regular Inj (Novolin R Inj) 1,000 Unit/10 Ml Vial 1 % SQ [id number] SLIDE SCALE for dm, #1 INJECTION Additional Information This note was transcribed by scribe [Chelly Mendez ]. I, Dr. Elizabeth Mac personally performed the history, physical exam, and medical decision making; and confirmed the accuracy of the information in the transcribed note. Authenticated by Dr. Elizabeth Mac 02/26/17 at 11:46. Chelly Mendez Feb 26, 2017 13:52 Elizabeth Mac MD Feb 26, 2017 18:19
[2017-02-26] MEDS ORDERED: FURO40TA PO (13:54)
[2017-02-26] MEDS ORDERED: ALDA50TA2 PO (13:54)
[2017-02-26 14:08] LABS: BANDS 2 % (0-6); BASOPHILS 1 % (0-2); NEUTROPHIL # MANUAL DIFF 4.7 TH/MM3 (1.8-7.7); POLYS (SEG NEUTROPHILS) 73 % (16-70); WBC DIFF SAMPLE 100
[2017-02-26 14:09] LABS: TARGET CELLS 2+ (NORMAL)
[2017-02-26 14:11] LABS: PLATELET ESTIMATE SMEAR NORMAL (NORMAL); PLATELET MORPHOLOGY ENLARGED (NORMAL); SCAN/DIFF FINAL DIFF MANUAL
[2017-02-26] MEDS ORDERED: INSULIN ASPART SUPPLEMENTAL SCALE SQ SCH (17:00)
[2017-02-26] MEDS ORDERED: LEVEMIR SQ (18:23)
== END 2017-02-26 17:53 | disposition home or self-care (01) ==
LOC: NEPC 13:02 → INTOOBSV 16:54 → NEDA 16:54 → NEPHCDU 18:59
PROVIDERS: ADMIT Hospitalist; ATTEND Hospitalist
DX: C85.90 Non-Hodgkin lymphoma, unspecified, unspecified site (principal); K85.90 Acute pancreatitis without necrosis or infection, unspecified; K74.60 Unspecified cirrhosis of liver; M79.89 Other specified soft tissue disorders; R18.8 Other ascites; N20.0 Calculus of kidney; K72.90 Hepatic failure, unspecified without coma; E11.65 Type 2 diabetes mellitus with hyperglycemia; Z92.21 Personal history of antineoplastic chemotherapy; E11.43 Type 2 diabetes mellitus with diabetic autonomic (poly)neuropathy; K31.84 Gastroparesis; F40.240 Claustrophobia; D64.9 Anemia, unspecified; K83.0 Cholangitis; K73.9 Chronic hepatitis, unspecified; Z79.4 Long term (current) use of insulin; Z79.899 Other long term (current) drug therapy; Z92.3 Personal history of irradiation
CPT/HCPCS: 76705; 80048; 80053; 81001; 82948; 83036; 83605; 83690; 84703; 85007; 85025; 85027; 85610; 85730; 96365; 96366; 96372; 96375; 96376; 99285; G0378; J0696; J1170; J1644; J1815

== ENCOUNTER 2017-02-28 20:07 | Emergency (ER) | payer OTHER ==
[~2017-02-28] VITALS: Ht 162.6 cm; Wt 50.0 kg
[~2017-02-28 20:07] MED LIST changes: +ALDA50TA2 PO; +LEVEMIR SQ; -MAGN400T3 PO; -SPIR25 PO
[2017-02-28 20:10] VITALS: BP 117/79; PULSE 90; RESP 16; TEMP 99.1; O2SAT 98
[2017-02-28] MEDS ORDERED: SODIUM CHLOR 0.9% 1000 ML INJ 1,000 ML IV SCH (21:25)
[2017-02-28] MEDS ORDERED: SODIUM CHLORIDE 0.9% FLUSH 10 ML FLUSH IV FLUSH PRN (21:30)
--- NOTE | 2017-02-28 21:38 | PD ---
HPI Chief Complaint: Abdominal Pain Time Seen by Provider: 21:25 Travel History International Travel<30 days: No Contact w/Intl Traveler<30days: No Traveled to known affect area: No History of Present Illness HPI C/O 3 DAYS OF DIFFUSE ABD PAIN, CRAMPY, 8/10, NONRAD, ASSOC WITH NAUSEA, NO ACTUAL V/D YET. ALL: TORADOL AND MORPHINE CAUSE "BREATHING PROBLEMS" BUT STATES THAT "DILAUDID DOES NOT CAUSE ANY PROBLEMS" PCP DR ROSANNE BRASWELL PSHX: SPLENECTOMY, GB FOR CHOLANGITIS, PMHX:NONHODGKINS PFSH Past Medical History Arthritis: No Asthma: No Autoimmune Disease: No Blood Disorders: No Anxiety: No Depression: No Heart Rhythm Problems: No Cancer: Yes (NON HODGKINS LYMPHOMA) Cardiovascular Problems: No High Cholesterol: No Chemotherapy: Yes Chest Pain: No Congestive Heart Failure: No Cirrhosis: Yes COPD: No Cerebrovascular Accident: No Diabetes: Yes Diminished Hearing: No Endocrine: No Gastrointestinal Disorders: Yes (NON-FUNCTIONAL GALLBLADDER) GERD: No Genitourinary: No Headaches: No Hiatal Hernia: No Heparin Induced Thrombocytopen: No Hypertension: No Immune Disorder: No Implanted Vascular Access Dvce: Yes Kidney Stones: Yes Musculoskeletal: No Neurologic: No Psychiatric: No Reproductive: No Respiratory: No Immunizations Current: No Migraines: No Radiation Therapy: No Renal Failure: No Seizures: No Sickle Cell Disease: No Sleep Apnea: No Thyroid Disease: No Ulcer: Yes Menopausal: Yes : 2 Para: 2 Miscarriage: 0 : 0 Past Surgical History Abdominal Surgery: Yes (splenectomy, liver biopsy) AICD: No Arteriovenous Shunt: No Body Medical Devices: BILIARY DRAIN Cardiac Surgery: No Ear Surgery: No Endocrine Surgery: No Eye Surgery: No Genitourinary Surgery: No Gynecologic Surgery: No Insulin Pump: No Joint Replacement: No Neurologic Surgery: No Oral Surgery: No Pacemaker: No Thoracic Surgery: No Other Surgery: Yes (BILIARY DRAIN PLACED, LIVER BIOPSY,splenectomy, biliary stents) Social History Alcohol Use: No Tobacco Use: No Substance Use: No Allergies-Medications (Allergen,Severity, Reaction): Coded Allergies: MRI PRECAUTION (Verified Allergy, Severe, NAUSEA; PER PATIENT IT IS A GADOLINIUM ALLERGY KMD 11/25/12, 02/28/17) gadobenic acid (Unverified Allergy, Severe, BREATHING PROBLEMS, N/V,CHILLS , 02/28/17) gadodiamide (Unverified Allergy, Severe, BREATHING PROBLEMS, N/V,CHILLS, 02/28/17) gadoteridol (Unverified Allergy, Severe, BREATHING PROBLEMS, N/V,CHILLS, 02/28/17) ketorolac (Unverified Allergy, Severe, Shortness of Breath, 02/28/17) morphine (Unverified Allergy, Severe, BREATHING PROBLEMS, 02/28/17) Reported Meds & Prescriptions Reported Meds & Active Scripts Active Zofran Odt (Ondansetron Odt) 4 Mg Tab 4 Mg SL Q6HR PRN Ultram (Tramadol HCl) 50 Mg Tab 50 Mg PO Q4H PRN Levemir Inj (Insulin Detemir) 1,000 unit/ 10 ML Vial 20 Units SQ HS Do not mix with any other Insulin. Furosemide 40 Mg Tab 40 Mg PO DAILY 30 Days Aldactone (Spironolactone) 50 Mg Tab 50 Mg PO BID@,18 30 Days Novolin R Inj (Insulin Human Regular) 1,000 Unit/10 Ml Vial 1 % SQ [id number] SLIDE SCALE Review of Systems Except as stated in HPI: all other systems reviewed are Neg Gastrointestinal: Positive: Nausea, Abdominal Pain Physical Exam Narrative GENERAL: SKIN: Warm and dry. HEAD: Atraumatic. Normocephalic. EYES: Pupils equal and round. No scleral icterus. No injection or drainage. ENT: No nasal bleeding or discharge. Mucous membranes pink and moist. NECK: Trachea midline. No JVD. CARDIOVASCULAR: Regular rate and rhythm. RESPIRATORY: No accessory muscle use. Clear to auscultation. Breath sounds equal bilaterally. GASTROINTESTINAL: Abdomen DIFFUSELY TTP, distended. HYPOACTIVE BOWEL SOUNDS, NO RIGIDITY, MUSCULOSKELETAL: Extremities without clubbing, cyanosis, or edema. No obvious deformities. NEUROLOGICAL: Awake and alert. No obvious cranial nerve deficits. Motor grossly within normal limits. Five out of 5 muscle strength in the arms and legs. Normal speech. PSYCHIATRIC: Appropriate mood and affect; insight and judgment normal. Data Data Last Documented VS Vital Signs Date Time Temp Pulse Resp B/P (MAP) Pulse Ox O2 Delivery O2 Flow Rate FiO2 03/01/17 01:25 03/01/17 01:24 16 03/01/17 01:23 72 95 Room Air 02/28/17 20:10 99.1 Orders Orders Complete Blood Count With Diff (02/28/17 21:25) Comprehensive Metabolic Panel (02/28/17 21:25) Lipase (02/28/17 21:25) Ct Abd/Pel W/O Iv Contrast (02/28/17 21:25) Iv Access Insert/Monitor (02/28/17 21:25) Ecg Monitoring (02/28/17 21:25) Oximetry (02/28/17 21:25) Sodium Chlor 0.9% 1000 Ml Inj (Ns 1000 M (02/28/17 21:25) Sodium Chloride 0.9% Flush (Ns Flush) (02/28/17 21:30) Ed Urine Pregnancytest Poc (02/28/17 21:25) Insulin Human Regular Inj (Novolin R Inj (03/01/17 00:30) Ed Discharge Order (03/01/17 00:26) Hydromorphone Pf Inj (Dilaudid Pf Inj) (03/01/17 00:45) Labs Laboratory Tests Test 02/28/17 22:07 02/28/17 23:30 Blood Urea Nitrogen 13 MG/DL Creatinine 0.47 MG/DL Random Glucose 460 MG/DL Total Protein 7.4 GM/DL Albumin 2.5 GM/DL Calcium Level 9.2 MG/DL Alkaline Phosphatase 2011 U/L Aspartate Amino Transf (AST/SGOT) 183 U/L Alanine Aminotransferase (ALT/SGPT) 121 U/L Total Bilirubin 3.3 MG/DL Sodium Level 129 MEQ/L Potassium Level 5.0 MEQ/L Chloride Level 98 MEQ/L Carbon Dioxide Level 25.2 MEQ/L Anion Gap 6 MEQ/L Estimat Glomerular Filtration Rate 143 ML/MIN Lipase 181 U/L White Blood Count 7.4 TH/MM3 Red Blood Count 3.33 MIL/MM3 Hemoglobin 9.5 GM/DL Hematocrit 29.9 % Mean Corpuscular Volume 89.7 FL Mean Corpuscular Hemoglobin 28.6 PG Mean Corpuscular Hemoglobin Concent 31.9 % Red Cell Distribution Width 18.1 % Platelet Count 351 TH/MM3 Mean Platelet Volume 11.2 FL CBC Comment AUTO DIFF Differential Total Cells Counted 100 Neutrophils % (Manual) 84 % Band Neutrophils % 3 % Lymphocytes % 8 % Monocytes % 4 % Basophils % 1 % Neutrophils # (Manual) 6.4 TH/MM3 Differential Comment FINAL DIFF MANUAL Platelet Estimate NORMAL Platelet Morphology Comment NORMAL Target Cells 1+ Kelly-Ball Bodies PRESENT MDM Medical Decision Making Medical Screen Exam Complete: Yes Emergency Medical Condition: Yes Medical Record Reviewed: Yes Differential Diagnosis SBO V PERF V ILEUS V PANCREATITIS Narrative Course patient has h/o sclerosing cholangitis which explain the patient developing chonic liver disease/cirrhosis. similar lab values as in past, no new findings today. currently patient tolerated po challenge in ed, will d/c home Diagnosis Primary Impression: abdominal pain, acute and chronic Additional Impressions: Hyperglycemia PSEUDOHYPONATREMIA DUE TO HYPERGLYCEMIA ABNORMAL LIVER ENZYMES DUE TO CIRRHOSIS Scripts Ondansetron Odt (Zofran Odt) 4 Mg Tab 4 MG SL Q6HR Y for Nausea/Vomiting, #12 TAB 0 Refills Prov: Neal Ríos MD 03/01/17 Tramadol (Ultram) 50 Mg Tab 50 MG PO Q4H Y for PAIN, #20 TAB 0 Refills Prov: Neal Ríos MD 03/01/17 Disposition: 01 DISCHARGE HOME Condition: Stable Neal Ríos MD Feb 28, 2017 21:38
[2017-02-28 22:48] LABS: ALT (GPT) 121 U/L (10-53); ANION GAP 6 MEQ/L (5-15); AST (GOT) 183 U/L (15-37); BICARBONATE 25.2 MEQ/L (21.0-32.0); BLOOD UREA NITROGEN 13 MG/DL (7-18); CHLORIDE 98 MEQ/L (98-107); GLOMERULAR FILTRATION RATE 143 ML/MIN (>89); SODIUM (NA) 129 MEQ/L (136-145)
[2017-02-28 23:17] LABS: ALKALINE PHOSPHATASE 2011 U/L (45-117); TOTAL BILIRUBIN ADULT 3.3 MG/DL (0.2-1.0)
--- NOTE | 2017-02-28 23:22 | RADRPT ---
EXAM DATE/TIME: 02/28/2017 22:53 [facility] COMPARISON: CT ABDOMEN & PELVIS W CONTRAST, February 14, 2017, 22:40. INDICATIONS : Right flank pain with nausea and vomiting. ORAL CONTRAST: No oral contrast ingested. RADIATION DOSE: 7.24 CTDIvol (mGy) MEDICAL HISTORY : Ulcers. Renal calculi. Lymphoma.Diabetes. Cirrhosis. SURGICAL HISTORY : Splenectomy. Bile duct stent. Mass removal lower left abdomen. ENCOUNTER: Initial ACUITY: 1 day PAIN SCALE: 6/10 LOCATION: Right flank TECHNIQUE: Volumetric scanning of the abdomen and pelvis was performed. Using automated exposure control and ad justment of the mA and/or kV according to patient size, radiation dose was kept as low as reasonably achievable to obtain optimal diagnostic quality images. DICOM format image data is available electro nically for review and comparison. FINDINGS: Compare February 14. Previous left pleural effusion has resolved. Lung bases clear. There is mild ascites, improved from February 14. Biliary stent remains present with pneumobilia. Di ffuse liver cirrhosis. Spleen is surgically absent. No hydronephrosis. Nonobstructing calculus lower pole left kidney measuring up to about [address] Right kidney unremarkable. Pancreas unremarkable. No pelvic masses. Mild anasarca. No acute bony findings. CONCLUSION: 1. No obstructive uropathy. Nonobstructing 10 mm calculus left kidney. 2. Resolution of previous pleural effusions. 3. Mild ascites improved from February 14. 4. Biliary stent unchanged. Diffuse liver cirrhosis. Feng Rod MD on February 28, 2017 at 23:17 Board Certified Radiologist. This report was verified electronically.
[2017-02-28 23:42] LABS: HEMATOCRIT 29.9 % (35.0-46.0); MEAN CELL VOLUME 89.7 FL (80.0-100.0); MEAN CORPUSCULAR HEMOGLOBIN 28.6 PG (27.0-34.0); MEAN CORPUSCULAR HGB CONC 31.9 % (32.0-36.0); PLATELET COUNT 351 TH/MM3 (150-450); RED BLOOD COUNT 3.33 MIL/MM3 (4.00-5.30); RED CELL DISTRIBUTION WIDTH 18.1 % (11.6-17.2); WHITE BLOOD COUNT 7.4 TH/MM3 (4.0-11.0)
[2017-02-28 23:45] LABS: HEMO FLAGS AUTO DIFF
[2017-03-01 00:15] LABS: BANDS 3 % (0-6); BASOPHILS 1 % (0-2); NEUTROPHIL # MANUAL DIFF 6.4 TH/MM3 (1.8-7.7); POLYS (SEG NEUTROPHILS) 84 % (16-70); SCAN/DIFF FINAL DIFF MANUAL; WBC DIFF SAMPLE 100
[2017-03-01 00:16] LABS: PLATELET ESTIMATE SMEAR NORMAL (NORMAL)
[2017-03-01 00:17] LABS: PLATELET MORPHOLOGY NORMAL (NORMAL); TARGET CELLS 1+ (NORMAL)
[2017-03-01 00:18] LABS: HOWELL-JOLLY BODIES PRESENT (NONE SEEN)
[2017-03-01] MEDS ORDERED: ZOFR4TAB3 SL ×2 (00:25→01:07)
[2017-03-01] MEDS ORDERED: ULTR50TA5 PO ×2 (00:25→01:07)
[2017-03-01] MEDS ORDERED: INSULIN HUMAN REGULAR 1,000 UNITS/10 ML VIAL IV PUSH ONE (00:30)
[2017-03-01] MEDS ORDERED: HYDROmorphone HCL PF 1 MG/ML VIAL IV PUSH ONE (00:45)
[2017-03-01 01:23] VITALS: BP 120/80; PULSE 72; RESP 16; O2SAT 95
[2017-03-01 01:24] VITALS: RESP 16
== END 2017-03-01 01:38 | disposition home or self-care (01) ==
LOC: NEPD 20:07
DX: E11.65 Type 2 diabetes mellitus with hyperglycemia (principal); R10.9 Unspecified abdominal pain; E87.1 Hypo-osmolality and hyponatremia; K74.60 Unspecified cirrhosis of liver; Z79.4 Long term (current) use of insulin; Z79.899 Other long term (current) drug therapy
CPT/HCPCS: 74176; 80053; 83690; 84703; 85007; 85027; 96361; 96374; 96375; 99285; J1170; J1815; J7030

== ENCOUNTER 2017-03-09 15:04 | Emergency (ER) | payer OTHER ==
[~2017-03-09 15:04] MED LIST changes: +ULTR50TA5 PO; +ZOFR4TAB3 SL
[2017-03-09 15:07] VITALS: BP 126/82; PULSE 99; RESP 16; TEMP 98.6; O2SAT 99
[2017-03-09] MEDS ORDERED: LANTUS2P SQ (15:41)
[2017-03-09] MEDS ORDERED: HUMALOG SQ (15:52)
[2017-03-09] MEDS ORDERED: SODIUM CHLORIDE 0.9% FLUSH 10 ML FLUSH IV FLUSH PRN (16:15)
--- NOTE | 2017-03-09 16:50 | PD ---
HPI . Abdominal pain Chief Complaint: Abdominal Pain Time Seen by Provider: 16:01 Travel History International Travel<30 days: No Contact w/Intl Traveler<30days: No Traveled to known affect area: No History of Present Illness HPI This patient presents with a chief complaint of abdominal pain. Her significant other reports chronic abdominal pain. She states that her abdominal pain became worse approximately a week ago. The majority of the pain is on the right side. She is also complaining with abdominal swelling and extremity swelling. She states that she has had this before and has been treated with Lasix before. She believes that she finished that approximately 1- 2 months ago. She states that she did well as far as her swelling was concerned until a week ago. She has not noted any exacerbating or relieving factors. She states that her pain is severe. Her pertinent past history includes lymphoma which is in remission, ascending cholangitis, cirrhosis, history of splenectomy secondary to lymphoma, DM and recent pancreatitis She is followed by Dr. Gilmar Matos locally and at [facility] [place] for her chronic liver disease. She states that she is allergic to Toradol and morphine but can take Dilaudid. [id number]: Right upper quadrant SEVERITY: Severe DURATION: Chronic but worse for the past week TIMING: Continuous CONTEXT: History of cirrhosis MODIFYING FACTORS: No modifying factors ASSOCIATED SYMPTOMS: Abdominal and lower extremity swelling PFSH Past Medical History Arthritis: No Asthma: No Autoimmune Disease: No Blood Disorders: No Anxiety: No Depression: No Heart Rhythm Problems: No Cancer: Yes (NON HODGKINS LYMPHOMA) Cardiovascular Problems: No High Cholesterol: No Chemotherapy: Yes Chest Pain: No Congestive Heart Failure: No Cirrhosis: Yes COPD: No Cerebrovascular Accident: No Diabetes: Yes (INSULIN) Patient Takes Glucophage: No Diminished Hearing: No Endocrine: No Gastrointestinal Disorders: Yes (NON-FUNCTIONAL GALLBLADDER) GERD: No Genitourinary: No Headaches: No Hiatal Hernia: No Heparin Induced Thrombocytopen: No Hypertension: No Immune Disorder: No Implanted Vascular Access Dvce: Yes Kidney Stones: Yes Medical other: Yes (HX OF ENLARGED SPLEEN, SPLENECTOMY 2004) Musculoskeletal: No Neurologic: No Psychiatric: No Reproductive: No Respiratory: No Immunizations Current: No Migraines: No Radiation Therapy: No Renal Failure: No Seizures: No Sickle Cell Disease: No Sleep Apnea: No Thyroid Disease: No Ulcer: Yes Tetanus Vaccination: < 5 Years Influenza Vaccination: Yes ?: Not Menopausal: Yes : 2 Para: 2 Miscarriage: 0 : 0 Past Surgical History Abdominal Surgery: Yes (splenectomy, liver biopsy) AICD: No Arteriovenous Shunt: No Body Medical Devices: BILIARY DRAIN Cardiac Surgery: No Ear Surgery: No Endocrine Surgery: No Eye Surgery: No Genitourinary Surgery: No Gynecologic Surgery: No Insulin Pump: No Joint Replacement: No Neurologic Surgery: No Oral Surgery: No Pacemaker: No Thoracic Surgery: No Other Surgery: Yes (BILIARY DRAIN PLACED, LIVER BIOPSY,splenectomy, biliary stents) Social History Alcohol Use: No Tobacco Use: No Substance Use: No Allergies-Medications (Allergen,Severity, Reaction): Coded Allergies: gadobenic acid (Verified Allergy, Severe, BREATHING PROBLEMS, N/V,CHILLS, 03/09/17) gadodiamide (Verified Allergy, Severe, BREATHING PROBLEMS, N/V,CHILLS, ) gadoteridol (Verified Allergy, Severe, BREATHING PROBLEMS, N/V,CHILLS, ) ketorolac (Verified Allergy, Severe, Shortness of Breath, 03/09/17) morphine (Verified Allergy, Severe, BREATHING PROBLEMS, 03/09/17) MRI PRECAUTION (Verified Adverse Reaction, Severe, NAUSEA; PER PATIENT IT IS A GADOLINIUM ALLERGY KMD 11/25/12, 03/09/17) Reported Meds & Prescriptions Reported Meds & Active Scripts Active Reported Humalog Inj (Insulin Human Lispro) 1,000 Unit/10 Ml Vial 8 Units SQ TID Max dose at bedtime:( )units; sugars< 70,(0)units; sugars 150-199,(1)unit; sugars 200-249,(3)units; sugars 250-299,(5)units; sugars 300-349,(7)units; sugars more than 349,(9)units. Lantus Inj (Insulin Glargine) 1,000 Unit/10 Ml Vial 30 Units SQ HS Review of Systems Except as stated in HPI: all other systems reviewed are Neg General / Constitutional: No: Fever, Chills Gastrointestinal: Positive: Abdominal Pain, No: Loss of Appetite Genitourinary: No: Urgency, Frequency, Dysuria Musculoskeletal: Positive: Edema Physical Exam Narrative GENERAL: This is a thin woman who is awake and alert and does not appear to be in any acute distress. SKIN: warm/dry. Normal color. HEAD: Normocephalic. Atraumatic. EYES: Pupils equal and round. No scleral icterus. No injection or drainage. ENT: No nasal bleeding or discharge. Mucous membranes pink and moist. NECK: Trachea midline. Full range of motion without pain.. CARDIOVASCULAR: Regular rate and rhythm. Heart sounds are normal. RESPIRATORY: No accessory muscle use. Clear to auscultation. Breath sounds equal bilaterally. GASTROINTESTINAL: She has a scar on the left side of her upper abdomen and another scar on the right side of her upper abdomen. Abdomen soft. Nontender. Her liver is palpable to at least the umbilicus. Bowel sounds present. Her abdomen does not look ascitic. MUSCULOSKELETAL: No obvious deformities. NEUROLOGICAL: Awake and alert. No obvious cranial nerve deficits. Motor grossly within normal limits. Normal speech. PSYCHIATRIC: Appropriate mood and affect; insight and judgment normal. Data Data Last Documented VS Vital Signs Date Time Temp Pulse Resp B/P (MAP) Pulse Ox O2 Delivery O2 Flow Rate FiO2 03/09/17 18:29 17 03/09/17 18:01 97.8 89 128/83 (98) 98 Room Air Orders Orders Complete Blood Count With Diff (03/09/17 16:01) Comprehensive Metabolic Panel (03/09/17 16:01) Lipase (03/09/17 16:01) Urinalysis - C+S If Indicated (03/09/17 16:01) Iv Access Insert/Monitor (03/09/17 16:01) Sodium Chloride 0.9% Flush (Ns Flush) (03/09/17 16:15) Tramadol (Ultram) (03/09/17 17:45) Sodium Chlor 0.9% 1000 Ml Inj (Ns 1000 M (03/09/17 18:00) Sodium Chlor 0.9% 1000 Ml Inj (Ns 1000 M (03/09/17 18:00) Insulin Human Regular Inj (Novolin R Inj (03/09/17 18:00) Blood Glucose (03/09/17 17:50) Blood Glucose (03/09/17 17:50) Blood Glucose (03/09/17 18:50) Hydromorphone Pf Inj (Dilaudid Pf Inj) (03/09/17 18:00) Labs Laboratory Tests Test 03/09/17 16:15 White Blood Count 6.9 TH/MM3 Red Blood Count 3.66 MIL/MM3 Hemoglobin 10.5 GM/DL Hematocrit 33.1 % Mean Corpuscular Volume 90.2 FL Mean Corpuscular Hemoglobin 28.7 PG Mean Corpuscular Hemoglobin Concent 31.8 % Red Cell Distribution Width 18.4 % Platelet Count 350 TH/MM3 Mean Platelet Volume 11.9 FL Neutrophils (%) (Auto) 71.5 % Lymphocytes (%) (Auto) 8.0 % Monocytes (%) (Auto) 17.1 % Eosinophils (%) (Auto) 1.7 % Basophils (%) (Auto) 1.7 % Neutrophils # (Auto) 4.9 TH/MM3 Lymphocytes # (Auto) 0.6 TH/MM3 Monocytes # (Auto) 1.2 TH/MM3 Eosinophils # (Auto) 0.1 TH/MM3 Basophils # (Auto) 0.1 TH/MM3 CBC Comment AUTO DIFF Differential Comment AUTO DIFF CONFIRMED Urine Color YELLOW Urine Turbidity CLEAR Urine pH 6.5 Urine Specific [place] 1.030 Urine Protein NEG mg/dL Urine Glucose (UA) 1000 mg/dL Urine Ketones NEG mg/dL Urine Occult Blood NEG Urine Nitrite NEG Urine Bilirubin NEG Urine Urobilinogen LESS THAN 2.0 MG/DL Urine Leukocyte Esterase NEG Urine WBC LESS THAN 1 /hpf Urine Squamous Epithelial Cells 1 /hpf Microscopic Urinalysis Comment CULT NOT INDICATED Blood Urea Nitrogen 10 MG/DL Creatinine 0.47 MG/DL Random Glucose 543 MG/DL Total Protein 6.9 GM/DL Albumin 2.4 GM/DL Calcium Level 8.3 MG/DL Alkaline Phosphatase 1447 U/L Aspartate Amino Transf (AST/SGOT) 145 U/L Alanine Aminotransferase (ALT/SGPT) 112 U/L Total Bilirubin 2.6 MG/DL Sodium Level 129 MEQ/L Potassium Level 5.3 MEQ/L Chloride Level 100 MEQ/L Carbon Dioxide Level 23.8 MEQ/L Anion Gap 5 MEQ/L Estimat Glomerular Filtration Rate 143 ML/MIN Lipase 165 U/L MDM Medical Decision Making Medical Screen Exam Complete: Yes Emergency Medical Condition: Yes Medical Record Reviewed: Yes (records reviewed. Pertinent history is noted in the history of present illness.) Differential Diagnosis Differential diagnosis of abdominal pain includes but is not limited to gastritis, pancreatitis, hepatitis, gastroenteritis, gallbladder disease, constipation, urinary retention, UTI, peptic ulcer disease, diverticulitis or appendicitis Narrative Course Patient presents complaining with upper abdominal pain. Her significant other reports that this is a chronic problem for her. She states that his been worse for the last week. She is complaining with abdominal bloating and peripheral edema. Her abdomen is not tight. Her extremities do not have any pitting edema. She is asking repeatedly for pain medications. She reports allergies to Toradol and morphine. I have ordered Ultram. This should be safe in a patient who has cirrhosis. The patient reports that she is allergic to Ultram. CBC & BMP Diagram 03/09/17 16:15 Total Protein 6.9, Albumin 2.4 L, Calcium Level 8.3 L, Alkaline Phosphatase 1447 H, Aspartate Amino Transf (AST/SGOT) 145 H, Alanine Aminotransferase (ALT/ SGPT) 112 H, Total Bilirubin 2.6 H These liver function studies are actually improved since her most recent labs done here on 02/28. I have ordered IV fluids 2 L and regular insulin 5 units IV. We will recheck her sugar in an hour. Her potassium should improve with this treatment. Case discussed with Dr. Mac who does not feel the patient needs to be admitted to the hospital. He states that he knows her well. This is her typical presentation. He suggests that we get her sugar down a little bit and then discharge her to follow-up with her doctor. Physician Communication Physician Communication Dr. Mac Diagnosis Primary Impression: Chronic pain Qualified Codes: G89.4 - Chronic pain syndrome Additional Impressions: Hyperglycemia DM (diabetes mellitus) Qualified Codes: E11.9 - Type 2 diabetes mellitus without complications; Z79.4 - terminal computer operator (current) use of insulin Hyperkalemia Patient Instructions: Chronic Abdominal Pain (ED), Diabetic Hyperglycemia (DC) , General Instructions, Narcotic given in the ED Disposition: 01 DISCHARGE HOME Condition: Stable Mayte Brink MD Mar 09, 2017 16:50
[2017-03-09 17:19] LABS: BILIRUBIN, URINE NEG (NEG); BLOOD, URINE NEG (NEG); GLUCOSE,URINE 1000 mg/dL (NEG); KETONE, URINE NEG (NEG); NITRITE,URINE NEG (NEG); PH, URINE 6.5 (5.0-8.5); SQUAMOUS EPITHELIAL CELL URINE 1 /hpf (0-5); URINE COLOR YELLOW (YELLW/STRAW); URINE LEUKOCYTE ESTERASE NEG (NEG)
[2017-03-09 17:23] LABS: AUTOMATED NEUTROPHIL # 4.9 TH/MM3 (1.8-7.7); BASOPHIL # 0.1 TH/MM3 (0-0.2); BASOPHIL % 1.7 % (0.0-2.0); EOSINOPHIL # 0.1 TH/MM3 (0-0.4); EOSINOPHIL % 1.7 % (0.0-4.0); HEMATOCRIT 33.1 % (35.0-46.0); HEMOGLOBIN 10.5 GM/DL (11.6-15.3); LYMPHOCYTE # 0.6 TH/MM3 (1.0-4.8); MEAN CELL VOLUME 90.2 FL (80.0-100.0); MEAN CORPUSCULAR HEMOGLOBIN 28.7 PG (27.0-34.0); MEAN CORPUSCULAR HGB CONC 31.8 % (32.0-36.0); MEAN PLATELET VOLUME 11.9 FL (7.0-11.0); MONO % 17.1 % (0.0-8.0); MONOCYTE # 1.2 TH/MM3 (0-0.9); NEUT % 71.5 % (16.0-70.0); PLATELET COUNT 350 TH/MM3 (150-450); RED BLOOD COUNT 3.66 MIL/MM3 (4.00-5.30); RED CELL DISTRIBUTION WIDTH 18.4 % (11.6-17.2); WHITE BLOOD COUNT 6.9 TH/MM3 (4.0-11.0)
[2017-03-09 17:44] LABS: ALBUMIN 2.4 GM/DL (3.4-5.0); ALKALINE PHOSPHATASE 1447 U/L (45-117); ALT (GPT) 112 U/L (10-53); AST (GOT) 145 U/L (15-37); BICARBONATE 23.8 MEQ/L (21.0-32.0); BLOOD UREA NITROGEN 10 MG/DL (7-18); CALCIUM 8.3 MG/DL (8.5-10.1); CHLORIDE 100 MEQ/L (98-107); CREATININE 0.47 MG/DL (0.50-1.00); GLOMERULAR FILTRATION RATE 143 ML/MIN (>89); LIPASE 165 U/L (73-393); SODIUM (NA) 129 MEQ/L (136-145); TOTAL BILIRUBIN ADULT 2.6 MG/DL (0.2-1.0); TOTAL PROTEIN 6.9 GM/DL (6.4-8.2)
[2017-03-09] MEDS ORDERED: traMADol HCL 50 MG TAB PO ONE (17:45)
[2017-03-09 17:47] LABS: GLUCOSE,RANDOM 543 MG/DL (74-106)
[2017-03-09] MEDS ORDERED: SODIUM CHLOR 0.9% 1000 ML INJ 1,000 ML IV ONE ×2 (18:00)
[2017-03-09] MEDS ORDERED: INSULIN HUMAN REGULAR 1,000 UNITS/10 ML VIAL IV PUSH ONE (18:00)
[2017-03-09] MEDS ORDERED: HYDROmorphone HCL PF 0.5 MG/0.5 ML SYRINGE IV PUSH ONE (18:00)
[2017-03-09 18:01] VITALS: BP 128/83; PULSE 89; RESP 17; TEMP 97.8; O2SAT 98
[2017-03-09 19:14] VITALS: BP 116/79; PULSE 89; RESP 18
== END 2017-03-09 19:37 | disposition home or self-care (01) ==
LOC: NEPE 15:04
DX: G89.4 Chronic pain syndrome (principal); E11.65 Type 2 diabetes mellitus with hyperglycemia; E87.5 Hyperkalemia; K74.60 Unspecified cirrhosis of liver; Z79.4 Long term (current) use of insulin; Z85.72 Personal history of non-Hodgkin lymphomas
CPT/HCPCS: 80053; 81001; 83690; 85025; 96361; 96374; 96375; 99284; J1170; J1815; J7030

== ENCOUNTER 2017-04-01 16:21 | Observation (INO) | payer OTHER ==
[~2017-04-01 16:21] MED LIST changes: -ALDA50TA2 PO; -FURO40TA PO; +HUMALOG SQ; +LANTUS2P SQ; -LEVEMIR SQ; -NOVORP2 SQ; -ULTR50TA5 PO; -ZOFR4TAB3 SL
[2017-04-01 16:38] VITALS: BP 125/78; PULSE 112; RESP 18; TEMP 98.6; O2SAT 98
[2017-04-01 17:15] LABS: HEMATOCRIT 33.4 % (35.0-46.0); MEAN CELL VOLUME 85.1 FL (80.0-100.0); MEAN CORPUSCULAR HEMOGLOBIN 26.8 PG (27.0-34.0); MEAN CORPUSCULAR HGB CONC 31.5 % (32.0-36.0); PLATELET COUNT 346 TH/MM3 (150-450); RED BLOOD COUNT 3.92 MIL/MM3 (4.00-5.30); RED CELL DISTRIBUTION WIDTH 17.8 % (11.6-17.2); WHITE BLOOD COUNT 7.5 TH/MM3 (4.0-11.0)
[2017-04-01 17:15] LABS: BLOOD, URINE NEG (NEG); GLUCOSE,URINE 1000 mg/dL (NEG); KETONE, URINE NEG (NEG); NITRITE,URINE NEG (NEG); PH, URINE 6.5 (5.0-8.5); SQUAMOUS EPITHELIAL CELL URINE 1 /hpf (0-5); URINE COLOR YELLOW (YELLW/STRAW)
[2017-04-01 17:23] LABS: COMMENT (UR) CULT NOT INDICATED; CULTURE IF INDICATED CULT NOT INDICATED
[2017-04-01 17:33] LABS: BICARBONATE 23.6 MEQ/L (21.0-32.0); POTASSIUM 3.7 MEQ/L (3.5-5.1)
[2017-04-01 17:38] LABS: HEMO FLAGS AUTO DIFF
[2017-04-01 18:35] LABS: BANDS 2 % (0-6); EOSINOPHILS 1 % (0-4); NEUTROPHIL # MANUAL DIFF 6.4 TH/MM3 (1.8-7.7); POLYS (SEG NEUTROPHILS) 83 % (16-70); SCAN/DIFF FINAL DIFF MANUAL; TARGET CELLS 2+ (NORMAL); WBC DIFF SAMPLE 100
[2017-04-01 18:36] LABS: PLATELET ESTIMATE SMEAR NORMAL (NORMAL); PLATELET MORPHOLOGY ENLARGED (NORMAL)
--- NOTE | 2017-04-01 18:36 | PD ---
HPI Chief Complaint: Abdominal Pain Time Seen by Provider: 18:08 Travel History International Travel<30 days: No Contact w/Intl Traveler<30days: No Traveled to known affect area: No History of Present Illness HPI Patient is a 46-year-old female presenting to the emergency department for evaluation of abdominal pain. Patient localizes the pain to the right upper quadrant with radiation to her back. She states this has been going on for over 2 years. She reports that the pain has been the same but has increased in intensity. She states it's a 10 out of 10 and sharp. She reports diarrhea, nausea and vomiting, last episode of vomiting was 2 days ago. She reports chills but no fevers. She reports a 20 pound weight loss last 2 months. She reports a history of type 1 diabetes which she states was diagnosed 4 years ago. She states that she is always in pain, she has no quality of life. She reports respiratory depression with morphine and pain medications. Her primary care provider is Dr. Matos, she has no GI specialist that she follows with. She was recently seen at [facility] and she states she had gallstones removed at that time. PFS Past Medical History Arthritis: No Asthma: No Autoimmune Disease: No Blood Disorders: No Anxiety: No Depression: No Heart Rhythm Problems: No Cancer: Yes (NON HODGKINS LYMPHOMA) Cardiovascular Problems: No High Cholesterol: No Chemotherapy: Yes Chest Pain: No Congestive Heart Failure: No Cirrhosis: Yes COPD: No Cerebrovascular Accident: No Diabetes: Yes Patient Takes Glucophage: No Diminished Hearing: No Endocrine: No Gastrointestinal Disorders: Yes (sclerosing cholangitis) GERD: No Genitourinary: No Headaches: No Hiatal Hernia: No Heparin Induced Thrombocytopen: No Hypertension: No Immune Disorder: No Kidney Stones: Yes Musculoskeletal: No Neurologic: No Psychiatric: No Reproductive: No Respiratory: No Immunizations Current: No Migraines: No Radiation Therapy: No Renal Failure: No Seizures: No Sickle Cell Disease: No Sleep Apnea: No Thyroid Disease: No Ulcer: Yes Tetanus Vaccination: < 5 Years Influenza Vaccination: Yes ?: Not Menopausal: Yes : 2 Para: 2 Miscarriage: 0 : 0 Past Surgical History Abdominal Surgery: Yes (splenectomy, liver biopsy) AICD: No Arteriovenous Shunt: No Body Medical Devices: BILIARY DRAIN Cardiac Surgery: No Cholecystectomy: Yes Ear Surgery: No Endocrine Surgery: No Eye Surgery: No Genitourinary Surgery: No Gynecologic Surgery: No Insulin Pump: No Joint Replacement: No Neurologic Surgery: No Oral Surgery: No Pacemaker: No Thoracic Surgery: No Other Surgery: Yes (BILIARY DRAIN PLACED, LIVER BIOPSY,splenectomy, biliary stents) Social History Alcohol Use: No Tobacco Use: No Substance Use: No Allergies-Medications (Allergen,Severity, Reaction): Coded Allergies: gadobenic acid (Verified Allergy, Severe, BREATHING PROBLEMS, N/V,CHILLS, 03/09/17) gadodiamide (Verified Allergy, Severe, BREATHING PROBLEMS, N/V,CHILLS, ) gadoteridol (Verified Allergy, Severe, BREATHING PROBLEMS, N/V,CHILLS, ) ketorolac (Verified Allergy, Severe, Shortness of Breath, 03/09/17) morphine (Verified Allergy, Severe, BREATHING PROBLEMS, 03/09/17) tramadol (Verified Allergy, Mild, Shortness of Breath, 04/01/17) MRI PRECAUTION (Verified Adverse Reaction, Severe, NAUSEA; PER PATIENT IT IS A GADOLINIUM ALLERGY KMD 11/25/12, 03/09/17) Reported Meds & Prescriptions Reported Meds & Active Scripts Active Reported Humalog Inj (Insulin Human Lispro) 1,000 Unit/10 Ml Vial 8 Units SQ TID Max dose at bedtime:( )units; sugars< 70,(0)units; sugars 150-199,(1)unit; sugars 200-249,(3)units; sugars 250-299,(5)units; sugars 300-349,(7)units; sugars more than 349,(9)units. Lantus Inj (Insulin Glargine) 1,000 Unit/10 Ml Vial 30 Units SQ HS Review of Systems Except as stated in HPI: all other systems reviewed are Neg General / Constitutional: No: Fever HENT: No: Headaches Cardiovascular: No: Chest Pain or Discomfort Respiratory: No: Shortness of Breath Gastrointestinal: Positive: Nausea, Vomiting, Diarrhea, Abdominal Pain Genitourinary: No: Dysuria Neurologic: No: Weakness, Dizziness Physical Exam Narrative GENERAL: Thin, well-developed, alert female. Resting comfortably in no acute distress. SKIN: Warm and dry. HEAD: Atraumatic. Normocephalic. EYES: Pupils equal and round. No scleral icterus. No injection or drainage. ENT: No nasal bleeding or discharge. Mucous membranes pink and moist. NECK: Trachea midline. No JVD. CARDIOVASCULAR: Regular rate and rhythm. RESPIRATORY: No accessory muscle use. Clear to auscultation. Breath sounds equal bilaterally. GASTROINTESTINAL: Abdomen soft, mildly tender to palpation diffusely, positive bowel sounds, no rebound, no guarding. Positive CVAT on the right MUSCULOSKELETAL: Extremities without clubbing, cyanosis, or edema. No obvious deformities. NEUROLOGICAL: Awake and alert. No obvious cranial nerve deficits. Motor grossly within normal limits. Five out of 5 muscle strength in the arms and legs. Normal speech. PSYCHIATRIC: Appropriate mood and affect; insight and judgment normal. Data Data Last Documented VS Vital Signs Date Time Temp Pulse Resp B/P (MAP) Pulse Ox O2 Delivery O2 Flow Rate FiO2 04/01/17 20:49 100 18 113/75 (88) 97 Room Air 04/01/17 16:38 98.6 Orders Orders Basic Metabolic Panel (Bmp) (04/01/17 16:43) Complete Blood Count With Diff (04/01/17 16:43) Urinalysis - C+S If Indicated (04/01/17 16:43) Beta Hydroxybutyrate (Acetone) (04/01/17 18:08) Ct Abd/Pel W/O Iv Contrast (04/01/17 ) Ed Urine Pregnancytest Poc (04/01/17 18:12) Blood Glucose (04/01/17 18:13) Insulin Human Regular Inj (Novolin R Inj (04/01/17 18:45) Sodium Chlor 0.9% 1000 Ml Inj (Ns 1000 M (04/01/17 18:45) Hydromorphone Pf Inj (Dilaudid Pf Inj) (04/01/17 18:45) Ondansetron Inj (Zofran Inj) (04/01/17 18:45) Hepatic Functional Panel (04/01/17 19:41) Lipase (04/01/17 19:41) Prochlorperazine Inj (Compazine Inj) (04/01/17 20:00) Hydromorphone Pf Inj (Dilaudid Pf Inj) (04/01/17 20:45) Insulin Human Regular Inj (Novolin R Inj (04/01/17 20:45) Admit Order (Ed Use Only) (04/01/17 21:38) Labs Laboratory Tests Test 04/01/17 16:50 04/01/17 16:57 White Blood Count 7.5 TH/MM3 Red Blood Count 3.92 MIL/MM3 Hemoglobin 10.5 GM/DL Hematocrit 33.4 % Mean Corpuscular Volume 85.1 FL Mean Corpuscular Hemoglobin 26.8 PG Mean Corpuscular Hemoglobin Concent 31.5 % Red Cell Distribution Width 17.8 % Platelet Count 346 TH/MM3 Mean Platelet Volume 11.7 FL CBC Comment AUTO DIFF Differential Total Cells Counted 100 Neutrophils % (Manual) 83 % Band Neutrophils % 2 % Lymphocytes % 7 % Monocytes % 7 % Eosinophils % 1 % Neutrophils # (Manual) 6.4 TH/MM3 Differential Comment FINAL DIFF MANUAL Platelet Estimate NORMAL Platelet Morphology Comment ENLARGED Target Cells 2+ Blood Urea Nitrogen 7 MG/DL Creatinine 0.61 MG/DL Random Glucose 788 MG/DL Calcium Level 8.3 MG/DL Sodium Level 130 MEQ/L Potassium Level 3.7 MEQ/L Chloride Level 96 MEQ/L Carbon Dioxide Level 23.6 MEQ/L Anion Gap 10 MEQ/L Estimat Glomerular Filtration Rate 106 ML/MIN Total Bilirubin 2.5 MG/DL Direct Bilirubin 2.1 MG/DL Indirect Bilirubin 0.4 MG/DL Aspartate Amino Transf (AST/SGOT) 203 U/L Alanine Aminotransferase (ALT/SGPT) 166 U/L Alkaline Phosphatase 1521 U/L Total Protein 6.6 GM/DL Albumin 2.3 GM/DL Lipase 106 U/L B-Hydroxybutyrate 0.09 MMOL/L Urine Color YELLOW Urine Turbidity CLEAR Urine pH 6.5 Urine Specific [place] 1.031 Urine Protein NEG mg/dL Urine Glucose (UA) 1000 mg/dL Urine Ketones NEG mg/dL Urine Occult Blood NEG Urine Nitrite NEG Urine Bilirubin NEG Urine Urobilinogen LESS THAN 2.0 MG/DL Urine Leukocyte Esterase NEG Urine WBC 1 /hpf Urine Squamous Epithelial Cells 1 /hpf Microscopic Urinalysis Comment CULT NOT INDICATED MDM Medical Decision Making Medical Screen Exam Complete: Yes Emergency Medical Condition: Yes Medical Record Reviewed: Yes Interpretation(s) Vital Signs Date Time Temp Pulse Resp B/P (MAP) Pulse Ox O2 Delivery O2 Flow Rate FiO2 04/01/17 18:07 18 04/01/17 16:38 98.6 112 18 125/78 (94) 98 Laboratory Tests Test 04/01/17 16:50 04/01/17 16:57 White Blood Count 7.5 TH/MM3 Red Blood Count 3.92 MIL/MM3 Hemoglobin 10.5 GM/DL Hematocrit 33.4 % Mean Corpuscular Volume 85.1 FL Mean Corpuscular Hemoglobin 26.8 PG Mean Corpuscular Hemoglobin Concent 31.5 % Red Cell Distribution Width 17.8 % Platelet Count 346 TH/MM3 Mean Platelet Volume 11.7 FL CBC Comment AUTO DIFF Differential Total Cells Counted 100 Neutrophils % (Manual) 83 % Band Neutrophils % 2 % Lymphocytes % 7 % Monocytes % 7 % Eosinophils % 1 % Neutrophils # (Manual) 6.4 TH/MM3 Differential Comment FINAL DIFF MANUAL Platelet Estimate NORMAL Platelet Morphology Comment ENLARGED Target Cells 2+ Blood Urea Nitrogen 7 MG/DL Creatinine 0.61 MG/DL Random Glucose 788 MG/DL Calcium Level 8.3 MG/DL Sodium Level 130 MEQ/L Potassium Level 3.7 MEQ/L Chloride Level 96 MEQ/L Carbon Dioxide Level 23.6 MEQ/L Anion Gap 10 MEQ/L Estimat Glomerular Filtration Rate 106 ML/MIN B-Hydroxybutyrate 0.09 MMOL/L Urine Color YELLOW Urine Turbidity CLEAR Urine pH 6.5 Urine Specific [place] 1.031 Urine Protein NEG mg/dL Urine Glucose (UA) 1000 mg/dL Urine Ketones NEG mg/dL Urine Occult Blood NEG Urine Nitrite NEG Urine Bilirubin NEG Urine Urobilinogen LESS THAN 2.0 MG/DL Urine Leukocyte Esterase NEG Urine WBC 1 /hpf Urine Squamous Epithelial Cells 1 /hpf Microscopic Urinalysis Comment CULT NOT INDICATED Vital Signs Date Time Temp Pulse Resp B/P (MAP) Pulse Ox O2 Delivery O2 Flow Rate FiO2 04/01/17 18:07 18 04/01/17 16:38 98.6 112 18 125/78 (94) 98 Differential Diagnosis Pyelonephritis versus kidney stone versus metabolic abnormality versus obstruction versus musculoskeletal pain versus cholangitis versus other Narrative Course Patient is a 46-year-old female that presented to emergency department for evaluation of right upper quadrant abdominal pain that has been going on for several years with exacerbation for the last few days. Patient's vital signs are stable, she is mildly tachycardic on arrival. There was no complaint of shortness of breath or chest pain. Protocols were ordered while patient was waiting in triage. Dilaudid and Zofran ordered for pain, IV fluids. CBC reviewed, stable when compared to prior results. Chemistry with a sodium of 130, blood glucose of 788. Blood glucose fingerstick was reassessed with patient arrived to the room at 578. 10 units of regular insulin ordered. CT the abdomen and pelvis which was read by the radiologist shows a cirrhotic liver, persistent pneumobilia. The biliary stent is no longer seen. There is a hazy density seen around the pancreas concerning for pancreatitis. The appearance is unchanged. There is persistent dilatation of the pancreatic duct. There also nonobstructing renal stones seen bilaterally measuring 8 mm in the inferior left collecting system and 2 mm at the superior right collecting system. Patient is status post splenectomy. Due to patient's persistent pain and symptomology she will be admitted under observation. Discussed with Dr. Whyte who accepted admission. Patient and friend are agreeable to plan. Diagnosis Primary Impression: Elevated LFTs Additional Impressions: Abdominal pain Qualified Codes: R10.11 - Right upper quadrant pain Hyperglycemia Hyponatremia Admitting Information Admitting Physician Requests: Observation Condition: Stable Tiffani Gonzales [facility] Apr 01, 2017 18:36
[2017-04-01] MEDS ORDERED: ONDANSETRON HCL 4 MG/2 ML VIAL IV PUSH ONE (18:45)
[2017-04-01] MEDS ORDERED: SODIUM CHLOR 0.9% 1000 ML INJ 1,000 ML IV ONE (18:45)
[2017-04-01] MEDS ORDERED: INSULIN HUMAN REGULAR 1,000 UNITS/10 ML VIAL SQ ONE ×2 (18:45→20:45)
[2017-04-01] MEDS ORDERED: HYDROmorphone HCL PF 0.5 MG/0.5 ML SYRINGE IV PUSH ONE ×2 (18:45→20:45)
--- NOTE | 2017-04-01 19:48 | RADRPT ---
EXAM DATE/TIME: 04/01/2017 19:09 [place] COMPARISON: CT ABDOMEN & PELVIS W/O CONTRAST, February 28, 2017, 22:53. INDICATIONS : Left upper abdomen pain today. ORAL CONTRAST: No oral contrast ingested. RADIATION DOSE: 4.58 CTDIvol (mGy) MEDICAL HISTORY : Lymphoma. diabetes SURGICAL HISTORY : Splenectomy. ENCOUNTER: Initial ACUITY: 1 day PAIN SCALE: 7/10 LOCATION: Left upper quadrant TECHNIQUE: Volumetric scanning of the abdomen and pelvis was performed. Using automated exposure control and ad justment of the mA and/or kV according to patient size, radiation dose was kept as low as reasonably achievable to obtain optimal diagnostic quality images. DICOM format image data is available electro nically for review and comparison. FINDINGS: LOWER LUNGS: The visualized lower lungs are clear. LIVER: The liver appears cirrhotic with hypertrophy of the left lobe and caudate and atrophy of the right lo be. There is pneumobilia. The previously seen biliary stent is no longer present. SPLEEN: The patient is status post splenectomy. PANCREAS: There is dilatation of the pancreatic duct measuring 7 mm. There is absence of the pancreatic tail. T here is atrophy of the remaining aspect of the pancreas. There is hazy density seen in the fat around the pancreas. KIDNEYS: There is an 8mm nonobstructing left renal stone seen in the inferior left collecting system. There is a 2 mm nonobstructing stone seen in the superior right collecting system, best seen on coronal image s. No hydronephrosis is seen. ADRENAL GLANDS: Within normal limits. VASCULAR: There is no aortic aneurysm. BOWEL/MESENTERY: The stomach, small bowel, and colon demonstrate no acute abnormality. There is no free intraperitone al air or fluid. ABDOMINAL WALL: Within normal limits. RETROPERITONEUM: There is no lymphadenopathy. BLADDER: No wall thickening or mass. REPRODUCTIVE: Within normal limits. INGUINAL: There is no lymphadenopathy or hernia. Clips are seen at the left inguinal region. MUSCULOSKELETAL: There is degenerative change in the lumbar spine. CONCLUSION: 1. Cirrhotic liver. 2. Persistent pneumobilia. The biliary stent is no longer seen. 3. Hazy density seen around the pancreas concerning for pancreatitis. This appearance is unchanged. T here is persistent dilatation of the pancreatic duct. 4. Nonobstructing renal stones seen bilaterally measuring 8 mm at the inferior left collecting system and 2 mm at the superior right collecting system. 5. Status post splenectomy. Mele Cuba MD on April 01, 2017 at 19:39 Board Certified Radiologist. This report was verified electronically.
[2017-04-01 19:50] VITALS: BP 124/82; PULSE 100; RESP 18; O2SAT 98
[2017-04-01] MEDS ORDERED: PROCHLORPERAZINE INJ 10 MG/2 ML VIAL IV PUSH ONE (20:00)
[2017-04-01 20:47] LABS: INDIRECT BILIRUBIN 0.4 MG/DL (0.0-0.8); TOTAL BILIRUBIN ADULT 2.5 MG/DL (0.2-1.0)
[2017-04-01 20:49] VITALS: BP 113/75; PULSE 100; RESP 18; O2SAT 97
[2017-04-01] MEDS ORDERED: SODIUM CHLOR 0.9% 1000 ML INJ 1,000 ML IV SCH (22:08)
[2017-04-01] MEDS ORDERED: ONDANSETRON HCL 4 MG/2 ML VIAL IVP PRN (22:15)
[2017-04-01] MEDS ORDERED: DEXTROSE 50% IN WATER 50 ML VIAL(D50) IV PUSH PRN ×2 (22:15→23:00)
[2017-04-01] MEDS ORDERED: GLUCAGON 1 MG/ML VIAL OTHER PRN ×2 (22:15→23:00)
[2017-04-01] MEDS ORDERED: NALOXONE HCL 0.4 MG/ML AMP IV PUSH PRN (22:15)
[2017-04-01] MEDS: HEPARIN SODIUM - SQ 10,000 UNITS/ML VIAL SQ SCH (22:58)
--- NOTE | 2017-04-01 23:16 | HHI.HP ---
[facility] Primary Care Physician Gilmar Matos DO Admission Diagnosis ABDOMINAL PAIN, TRANSAMINITIS, HYPONATREMIA Diagnoses: Travel History International Travel<30 Days: No Contact w/Intl Traveler <30 Da: No Traveled to Known Affected Are: No History of Present Illness 46-year-old female with a past medical history significant for primary sclerosing cholangitis, non-Hodgkin's lymphoma and type 1 diabetes mellitus presents with acutely worsening right upper quadrant abdominal pain. The patient reports she has had abdominal pain for months and has been undergoing workup for a liver transplant at [facility] in [place]. She states 2 months ago she had an endoscopy and GI workup that showed biliary and pancreatic duct strictures. She cannot remember if any stenting was performed. She presents today with intractable abdominal pain that acutely worsened today. She endorses subjective chills, nausea and diarrhea. Blood glucose was 788 on her arrival, beta hydroxybutyrate 0.09. Hyperglycemia resolved with IV insulin 2, current blood sugar is 112. She has a transaminitis with AST/ALT of 203/166 and an alkaline phosphatase of 1521. CT of the abdomen and pelvis showed a cirrhotic liver with a hazy density around the pancreas concerning for pancreatitis that is unchanged from previous imaging and persistent dilation of the pancreatic duct. Review of Systems Denies fever, positive subjective chills Denies blurry vision, otorrhea, rhinorrhea Denies sore throat and cough No chest pain, palpitations, shortness of breath Abdominal pain Nausea and diarrhea Denies muscle pain/weakness No rashes Past Family Social History Past Medical History Primary sclerosing cholangitis History of non-Hodgkin's lymphoma Biliary/pancreatic strictures Type 1 diabetes mellitus Past Surgical History Liver tumor resection in 2004 Splenectomy Reported Medications Reported Meds & Active Scripts Active Reported Humalog Inj (Insulin Human Lispro) 1,000 Unit/10 Ml Vial 8 Units SQ TID Max dose at bedtime:( )units; sugars< 70,(0)units; sugars 150-199,(1)unit; sugars 200-249,(3)units; sugars 250-299,(5)units; sugars 300-349,(7)units; sugars more than 349,(9)units. Lantus Inj (Insulin Glargine) 1,000 Unit/10 Ml Vial 30 Units SQ HS Allergies: Coded Allergies: gadobenic acid (Verified Allergy, Severe, BREATHING PROBLEMS, N/V,CHILLS, 03/09/17) gadodiamide (Verified Allergy, Severe, BREATHING PROBLEMS, N/V,CHILLS, ) gadoteridol (Verified Allergy, Severe, BREATHING PROBLEMS, N/V,CHILLS, ) ketorolac (Verified Allergy, Severe, Shortness of Breath, 03/09/17) morphine (Verified Allergy, Severe, BREATHING PROBLEMS, 03/09/17) tramadol (Verified Allergy, Mild, Shortness of Breath, 04/01/17) MRI PRECAUTION (Verified Adverse Reaction, Severe, NAUSEA; PER PATIENT IT IS A GADOLINIUM ALLERGY KMD 11/25/12, 03/09/17) Family History Father with coronary artery disease. Social History Less tobacco, alcohol or illicit drugs. Physical Exam Vital Signs Vital Signs Date Time Temp Pulse Resp B/P (MAP) Pulse Ox O2 Delivery O2 Flow Rate FiO2 04/01/17 22:06 18 04/01/17 20:49 100 18 113/75 (88) 97 Room Air 04/01/17 19:50 100 18 124/82 (96) 98 Room Air 04/01/17 18:07 18 04/01/17 16:38 98.6 112 18 125/78 (94) 98 Physical Exam GENERAL: female lying in bed SKIN: No rashes, ecchymoses or lesions. Cool and dry. HEAD: Atraumatic. Normocephalic. No temporal or scalp tenderness. EYES: Pupils equal round and reactive. Extraocular motions intact. No scleral icterus. No injection or drainage. ENT: Nose without bleeding, purulent drainage or septal hematoma. Throat without erythema, tonsillar hypertrophy or exudate. Uvula midline. Airway patent. NECK: Trachea midline. No JVD or lymphadenopathy. Supple, nontender, no meningeal signs. CARDIOVASCULAR: Regular rate and rhythm without murmurs, gallops, or rubs. RESPIRATORY: Clear to auscultation. Breath sounds equal bilaterally. No wheezes , rales, or rhonchi. GASTROINTESTINAL: Abdomen soft, nondistended. Tender to palpation in all 4 quadrants, worse in the right upper quadrant. Voluntary guarding. No peritoneal signs. MUSCULOSKELETAL: Extremities without clubbing, cyanosis, or edema. No joint tenderness, effusion, or edema noted. No calf tenderness. NEUROLOGICAL: Awake and alert. Cranial nerves II through XII intact. Motor and sensory grossly within normal limits. Normal speech. Laboratory Laboratory Tests Test 04/01/17 16:50 04/01/17 16:57 White Blood Count 7.5 Red Blood Count 3.92 Hemoglobin 10.5 Hematocrit 33.4 Mean Corpuscular Volume 85.1 Mean Corpuscular Hemoglobin 26.8 Mean Corpuscular Hemoglobin Concent 31.5 Red Cell Distribution Width 17.8 Platelet Count 346 Mean Platelet Volume 11.7 CBC Comment AUTO DIFF Differential Total Cells Counted 100 Neutrophils % (Manual) 83 Band Neutrophils % 2 Lymphocytes % 7 Monocytes % 7 Eosinophils % 1 Neutrophils # (Manual) 6.4 Differential Comment FINAL DIFF MANUAL Platelet Estimate NORMAL Platelet Morphology Comment ENLARGED Target Cells 2+ Blood Urea Nitrogen 7 Creatinine 0.61 Random Glucose 788 Calcium Level 8.3 Sodium Level 130 Potassium Level 3.7 Chloride Level 96 Carbon Dioxide Level 23.6 Anion Gap 10 Estimat Glomerular Filtration Rate 106 Total Bilirubin 2.5 Direct Bilirubin 2.1 Indirect Bilirubin 0.4 Aspartate Amino Transf (AST/SGOT) 203 Alanine Aminotransferase (ALT/SGPT) 166 Alkaline Phosphatase 1521 Total Protein 6.6 Albumin 2.3 Lipase 106 B-Hydroxybutyrate 0.09 Urine Color YELLOW Urine Turbidity CLEAR Urine pH 6.5 Urine Specific [place] 1.031 Urine Protein NEG Urine Glucose (UA) 1000 Urine Ketones NEG Urine Occult Blood NEG Urine Nitrite NEG Urine Bilirubin NEG Urine Urobilinogen LESS THAN 2.0 Urine Leukocyte Esterase NEG Urine WBC 1 Urine Squamous Epithelial Cells 1 Microscopic Urinalysis Comment CULT NOT INDICATED Result Diagram: 04/01/17 1650 04/01/17 1650 Imaging Last Impressions Abdomen/Pelvis CT 04/01/17 0000 Signed Impressions: Service Date/Time: Saturday, April 01, 2017 19:09 - CONCLUSION: 1. Cirrhotic liver. 2. Persistent pneumobilia. The biliary stent is no longer seen. 3. Hazy density seen around the pancreas concerning for pancreatitis. This appearance is unchanged. There is persistent dilatation of the pancreatic duct. 4. Nonobstructing renal stones seen bilaterally measuring 8 mm at the inferior left collecting system and 2 mm at the superior right collecting system. 5. Status post splenectomy. Mele Cuba MD Caprini VTE Risk Assessment Caprini VTE Risk Assessment: No/Low Risk (score <= 1) Caprini Risk Assessment Model Point Value = 1 Point Value = 2 Point Value = 3 Point Value = 5 Age 41-60 Minor surgery BMI > 25 kg/m2 Swollen legs Varicose veins or History of unexplained or recurrent spontaneous Oral contraceptives or hormone replacement Sepsis (< 1 month) Serious lung disease, including pneumonia (< 1 month) Abnormal pulmonary function Acute myocardial infarction Congestive heart failure (< 1 month) History of inflammatory bowel disease Medical patient at bed rest Age 61-74 Arthroscopic surgery Major open surgery (> 45 min) Laparoscopic surgery (> 45 min) Malignancy Confined to bed (> 72 hours) Immobilizing plaster cast Central venous access Age >= 75 History of VTE Family history of VTE Factor V Leiden Prothrombin [id number] Lupus anticoagulant Anticardiolipin antibodies Elevated serum homocysteine Heparin-induced thrombocytopenia Other congenital or acquired thrombophilia Stroke (< 1 month) Elective arthroplasty Hip, pelvis, or leg fracture Acute spinal cord injury (< 1 month) Prophylaxis Regimen Total Risk Factor Score Risk Level Prophylaxis Regimen 0-1 Low Early ambulation 2 Moderate Order ONE of the following: *Sequential Compression Device (SCD) *Heparin 5000 units SQ BID 3-4 Higher Order ONE of the following medications: *Heparin 5000 units SQ TID *Enoxaparin/Lovenox 40 mg SQ daily (WT < 150 kg, CrCl > 30 mL/min) *Enoxaparin/Lovenox 30 mg SQ daily (WT < 150 kg, CrCl > 10-29 mL/min) *Enoxaparin/Lovenox 30 mg SQ BID (WT < 150 kg, CrCl > 30 mL/min) AND/OR *Sequential Compression Device (SCD) 5 or more Highest Order ONE of the following medications: *Heparin 5000 units SQ TID (Preferred with Epidurals) *Enoxaparin/Lovenox 40 mg SQ daily (WT < 150 kg, CrCl > 30 mL/min) *Enoxaparin/Lovenox 30 mg SQ daily (WT < 150 kg, CrCl > 10-29 mL/min) *Enoxaparin/Lovenox 30 mg SQ BID (WT < 150 kg, CrCl > 30 mL/min) AND *Sequential Compression Device (SCD) Assessment and Plan Assessment and Plan 46-year-old female with PSC, biliary and pancreatic duct strictures and type 1 diabetes mellitus presents with a 1 day history of intractable right upper quadrant pain. 1. Abdominal pain/PSC/Strictures/Cirrhosis/Transaminitis Consult Gastroenterology, appreciate recommendations NPO Dilaudid for pain Patient being followed at [facility] for possible liver transplant Transaminitis is chronic CT of the abdomen with no acute changes 2. Diabetes mellitus with hyperglycemia Patient responded to insulin in the ED Continue home insulin Add sliding scale A1c pending 3. Hyponatremia Sodium 130, this is baseline Normal saline FEN NPO NS at 60 cc/hr Electrolytes: Replete prn SCDs Isaura Whyte MD Apr 01, 2017 23:16
[2017-04-01 23:21] VITALS: BP 108/62; PULSE 67; RESP 18; TEMP 98.4; O2SAT 98
[2017-04-02] MEDS: SODIUM CHLORIDE 0.9% FLUSH 10 ML FLUSH IV FLUSH PRN ×2 (01:25→05:25)
[2017-04-02] MEDS: HYDROmorphone HCL PF 0.5 MG/0.5 ML SYRINGE IV PUSH PRN ×5 (01:25→21:41)
[2017-04-02 03:45] VITALS: BP 111/74; PULSE 90; RESP 18; TEMP 98.5; O2SAT 99
[2017-04-02 07:52] VITALS: BP 103/65; PULSE 80; RESP 16; TEMP 98.1; O2SAT 98
[2017-04-02] MEDS ORDERED: INSULIN ASPART SUPPLEMENTAL SCALE SQ SCH ×2 (08:00)
[2017-04-02] MEDS ORDERED: SENNOSIDES 8.6 MG TAB PO PRN (08:45)
[2017-04-02] MEDS ORDERED: MAGNESIUM HYDROXIDE SUSP 30 ML CUP PO PRN (08:45)
[2017-04-02] MEDS ORDERED: HYDROmorphone HCL 2 MG TAB PO PRN ×2 (08:45)
[2017-04-02] MEDS ORDERED: BISACODYL 10 MG SUPP RECTAL PRN (08:45)
[2017-04-02] MEDS ORDERED: LACTULOSE SYRUP 20 GM/30 ML CUP PO PRN (08:45)
[2017-04-02] MEDS ORDERED: PILL SPLITTER OTHER PRN (09:00)
[2017-04-02 09:20] LABS: HEMATOCRIT 29.3 % (35.0-46.0); MEAN CELL VOLUME 82.6 FL (80.0-100.0); MEAN CORPUSCULAR HEMOGLOBIN 28.3 PG (27.0-34.0); MEAN CORPUSCULAR HGB CONC 34.2 % (32.0-36.0); PLATELET COUNT 309 TH/MM3 (150-450); RED BLOOD COUNT 3.54 MIL/MM3 (4.00-5.30); RED CELL DISTRIBUTION WIDTH 17.3 % (11.6-17.2); WHITE BLOOD COUNT 10.3 TH/MM3 (4.0-11.0)
[2017-04-02 09:21] LABS: HEMO FLAGS AUTO DIFF
[2017-04-02 09:24] LABS: ALKALINE PHOSPHATASE 1212 U/L (45-117); ALT (GPT) 141 U/L (10-53); ANION GAP 7 MEQ/L (5-15); AST (GOT) 214 U/L (15-37); BICARBONATE 26.7 MEQ/L (21.0-32.0); BLOOD UREA NITROGEN 7 MG/DL (7-18); CHLORIDE 107 MEQ/L (98-107); GLOMERULAR FILTRATION RATE 382 ML/MIN (>89); SODIUM (NA) 141 MEQ/L (136-145); TOTAL BILIRUBIN ADULT 2.3 MG/DL (0.2-1.0)
[2017-04-02 09:56] LABS: BANDS 7 % (0-6); NEUTROPHIL # MANUAL DIFF 8.5 TH/MM3 (1.8-7.7); PLATELET ESTIMATE SMEAR NORMAL (NORMAL); POLYS (SEG NEUTROPHILS) 76 % (16-70); SCAN/DIFF FINAL DIFF MANUAL; WBC DIFF SAMPLE 100
[2017-04-02 09:57] LABS: PLATELET MORPHOLOGY ENLARGED (NORMAL); TARGET CELLS 3+ (NORMAL)
[2017-04-02] MEDS: PANTOPRAZOLE SOD 40 MG DELAYED RELEASE TAB PO SCH (10:01)
[2017-04-02] MEDS: SODIUM CHLORIDE 0.9% FLUSH 10 ML FLUSH IV FLUSH SCH ×2 (10:01→21:00)
[2017-04-02] MEDS: D5-NS + KCL 20 MEQ INJ 1,000 ML IV SCH (10:02)
[2017-04-02 11:18] VITALS: BP 113/77; PULSE 80; RESP 16; TEMP 98.1; O2SAT 98
[2017-04-02] MEDS: HEPARIN SODIUM - SQ 10,000 UNITS/ML VIAL SQ SCH ×2 (12:10→21:41)
[2017-04-02] MEDS: INSULIN ASPART SUPPLEMENTAL SCALE SQ SCH ×3 (13:18→21:42)
[2017-04-02 13:27] LABS: FERRITIN 22 NG/ML (8-252); HDL CHOLESTEROL 25.3 MG/DL (40.0-60.0); LDL CHOLESTEROL 224 MG/DL (0-99); TRANSFERRIN IRON PROFILE 261 MG/DL (200-360)
[2017-04-02 16:11] VITALS: BP 126/85; PULSE 78; RESP 18; TEMP 98; O2SAT 100
[2017-04-02] MEDS ORDERED: POTASSIUM CHLORIDE 10 MEQ CONTROLLED RELEASE TAB PO ONE (17:00)
--- NOTE | 2017-04-02 17:02 | HHI.PR ---
Subjective Remarks Follow-up abdominal pain. Requesting to continue intravenous narcotics at this time. Dw RN Objective Vitals Vital Signs Date Time Temp Pulse Resp B/P (MAP) Pulse Ox O2 Delivery O2 Flow Rate FiO2 04/02/17 16:11 98.0 78 18 126/85 (99) 100 04/02/17 11:18 98.1 80 16 113/77 (89) 98 04/02/17 07:52 98.1 80 16 103/65 (78) 98 04/02/17 03:45 98.5 90 18 111/74 (86) 99 04/01/17 23:21 98.4 67 18 108/62 (77) 98 04/01/17 23:13 04/01/17 22:06 18 04/01/17 20:49 100 18 113/75 (88) 97 Room Air 04/01/17 19:50 100 18 124/82 (96) 98 Room Air 04/01/17 18:07 18 I/O 04/01/17 04/01/17 04/01/17 04/02/17 04/02/17 04/02/17 07:00 15:00 23:00 07:00 15:00 23:00 Intake Total 1000 ml Balance 1000 ml Intake IV Total 1000 ml Result Diagram: 04/02/17 0624 04/02/17 0624 Imaging Last Impressions Abdomen/Pelvis CT 04/01/17 0000 Signed Impressions: Service Date/Time: Saturday, April 01, 2017 19:09 - CONCLUSION: 1. Cirrhotic liver. 2. Persistent pneumobilia. The biliary stent is no longer seen. 3. Hazy density seen around the pancreas concerning for pancreatitis. This appearance is unchanged. There is persistent dilatation of the pancreatic duct. 4. Nonobstructing renal stones seen bilaterally measuring 8 mm at the inferior left collecting system and 2 mm at the superior right collecting system. 5. Status post splenectomy. Mele Cuba MD Objective Remarks GENERAL: female lying in bed in pain SKIN: No rashes, ecchymoses or lesions. Cool and dry. CARDIOVASCULAR: Regular rate and rhythm without murmurs, gallops, or rubs. RESPIRATORY: Clear to auscultation. Breath sounds equal bilaterally. No wheezes , rales, or rhonchi. GASTROINTESTINAL: Abdomen soft, nondistended. Tender to palpation in all 4 quadrants, worse in the right upper quadrant. Voluntary guarding. No peritoneal signs. MUSCULOSKELETAL: Extremities without clubbing, cyanosis, or edema. No joint tenderness, effusion, or edema noted. No calf tenderness. NEUROLOGICAL: Awake and alert. Cranial nerves II through XII intact. Motor and sensory grossly within normal limits. Normal speech. A/P Problem List: (1) Abdominal pain ICD Code: R10.9 - Abdominal pain Status: Acute (2) Diabetes mellitus ICD Code: E11.9 - Diabetes mellitus Status: Acute Assessment and Plan 46-year-old female with PSC, biliary and pancreatic duct strictures and type 1 diabetes mellitus presents with a 1 day history of intractable right upper quadrant pain. 1. Abdominal pain/PSC/Strictures/Cirrhosis/Transaminitis Consult Gastroenterology, appreciate recommendations Start clear liquid Dilaudid for pain consulted regarding narcotics Patient being followed at [facility] for possible liver transplant Transaminitis is chronic CT of the abdomen with no acute changes 2. Diabetes mellitus with erratic control Patient responded to insulin in the ED Continue home insulin Add sliding scale A1c pending 3. Hyponatremia. Improved Hypokalemia. Potassium 60 mEq by mouth 1. Repeat BMP in the morning FEN prn NS at 60 cc/hr Electrolytes: Replete prn SCDs Discharge Planning Not ready for discharge Problem Qualifiers (1) Abdominal pain: Qualified Codes: R10.11 - Right upper quadrant pain Dillon Landeros MD Apr 02, 2017 17:02
--- NOTE | 2017-04-02 17:03 | PD.CONS ---
HPI History of Present Illness This is a 46 year old with hx cirrhosis, primary sclerosing cholangitis, biliary strictures who presented with abdominal pain. Pain is on the right side , onset 1 week ago, sharp in nature. NO exacerbating or relieving factors. NOt affected by eating. Some nausea, soft stools. Admits loss 20 lbs in 2 months. Admits jaundice, chills. NO vomiting, blood in stool, black and tarry. SHe admits recent ERCP but does not know when or where. She says she may have had the stent taken out in [place] but is unable to provide further details. She says she had liver transplant eval at [facility] in December and is due to go back next month. Poor historian. Never had colonoscopy. (Brionna Cisse) PFSH Past Medical History Primary sclerosing cholangitis History of non-Hodgkin's lymphoma Biliary/pancreatic strictures Type 1 diabetes mellitus Past Surgical History Liver tumor resection in 2004 Splenectomy (Brionna Cisse) Coded Allergies: gadobenic acid (Verified Allergy, Severe, BREATHING PROBLEMS, N/V,CHILLS, 03/09/17) gadodiamide (Verified Allergy, Severe, BREATHING PROBLEMS, N/V,CHILLS, ) gadoteridol (Verified Allergy, Severe, BREATHING PROBLEMS, N/V,CHILLS, ) ketorolac (Verified Allergy, Severe, Shortness of Breath, 03/09/17) morphine (Verified Allergy, Severe, BREATHING PROBLEMS, 03/09/17) tramadol (Verified Allergy, Mild, Shortness of Breath, 04/01/17) MRI PRECAUTION (Verified Adverse Reaction, Severe, NAUSEA; PER PATIENT IT IS A GADOLINIUM ALLERGY KMD 11/25/12, 03/09/17) Family History Father with coronary artery disease. Social History no ETOH, tobacco, illicit drug use. (Brionna Cisse) GI Exam Vitals I&O Vital Signs Date Time Temp Pulse Resp B/P (MAP) Pulse Ox O2 Delivery O2 Flow Rate FiO2 04/02/17 16:11 98.0 78 18 126/85 (99) 100 04/02/17 11:18 98.1 80 16 113/77 (89) 98 04/02/17 07:52 98.1 80 16 103/65 (78) 98 04/02/17 03:45 98.5 90 18 111/74 (86) 99 04/01/17 23:21 98.4 67 18 108/62 (77) 98 04/01/17 23:13 04/01/17 22:06 18 04/01/17 20:49 100 18 113/75 (88) 97 Room Air 04/01/17 19:50 100 18 124/82 (96) 98 Room Air 04/01/17 18:07 18 I/O 04/01/17 04/01/17 04/01/17 04/02/17 04/02/17 04/02/17 07:00 15:00 23:00 07:00 15:00 23:00 Intake Total 1000 ml Balance 1000 ml Intake IV Total 1000 ml Laboratory Test 04/01/17 16:57 04/02/17 06:24 Urine Color YELLOW Urine Turbidity CLEAR Urine pH 6.5 Urine Specific [place] 1.031 Urine Protein NEG mg/dL Urine Glucose (UA) 1000 mg/dL Urine Ketones NEG mg/dL Urine Occult Blood NEG Urine Nitrite NEG Urine Bilirubin NEG Urine Urobilinogen LESS THAN 2.0 MG/DL Urine Leukocyte Esterase NEG Urine WBC 1 /hpf Urine Squamous Epithelial Cells 1 /hpf Microscopic Urinalysis Comment CULT NOT INDICATED White Blood Count 10.3 TH/MM3 Red Blood Count 3.54 MIL/MM3 Hemoglobin 10.0 GM/DL Hematocrit 29.3 % Mean Corpuscular Volume 82.6 FL Mean Corpuscular Hemoglobin 28.3 PG Mean Corpuscular Hemoglobin Concent 34.2 % Red Cell Distribution Width 17.3 % Platelet Count 309 TH/MM3 Mean Platelet Volume 11.7 FL CBC Comment AUTO DIFF Differential Total Cells Counted 100 Neutrophils % (Manual) 76 % Band Neutrophils % 7 % Lymphocytes % 9 % Monocytes % 8 % Neutrophils # (Manual) 8.5 TH/MM3 Differential Comment FINAL DIFF MANUAL Platelet Estimate NORMAL Platelet Morphology Comment ENLARGED Target Cells 3+ Blood Urea Nitrogen 7 MG/DL Creatinine 0.20 MG/DL Random Glucose 89 MG/DL Total Protein 5.4 GM/DL Albumin 1.9 GM/DL Calcium Level 8.1 MG/DL Alkaline Phosphatase 1212 U/L Aspartate Amino Transf (AST/SGOT) 214 U/L Alanine Aminotransferase (ALT/SGPT) 141 U/L Total Bilirubin 2.3 MG/DL Sodium Level 141 MEQ/L Potassium Level 3.0 MEQ/L Chloride Level 107 MEQ/L Carbon Dioxide Level 26.7 MEQ/L Anion Gap 7 MEQ/L Estimat Glomerular Filtration Rate 382 ML/MIN Iron Level 35 MCG/DL Total Iron Binding Capacity 365 MCG/DL Percent Iron Saturation 9.6 % Ferritin 22 NG/ML Triglycerides Level 138 MG/DL Cholesterol Level 277 MG/DL LDL Cholesterol 224 MG/DL HDL Cholesterol 25.3 MG/DL Cholesterol/HDL Ratio 10.94 RATIO Vitamin B12 Level 894 PG/ML Folate 19.8 NG/ML Physical Examination HEENT: PERRL; normocephalic; atraumatic; mild icterus CHEST: CTA CARDIAC: RRR ABDOMEN: Soft, firmness palpated epigastrium, diffusely TTP; bowel sounds are present in all four quadrants. EXTREMITIES: No clubbing, cyanosis, or edema. SKIN: Normal; no rash; no jaundice. CONCESSION WORKER: No focal deficits; alert and oriented times three. (Brionna Cisse) Assessment and Plan Plan ASSESSMENT - RUQ pain, nausea - hx cirrhosis, sclerosing cholangitis, biliary strictures. CT showing cirrhotic liver, biliary stent no longer seen, unchanged appearance of pancreatitis, persistent dilatation pancreatic duct. WBC WNL at this time. lipase WNL. undergoing eval for liver transplant at [facility], pt says she has upcoming appointment. - elevated LFTs - chronic, close to baseline. cirrhosis, sclerosing cholangitis , biliary strictures. PLAN - pain management - advance diet as tolerated - f/u at [facility] - supportive care This pt seen by myself and Dr Newberry and this note is written on his behalf (Brionna Cisse) Physician Comments Patient seen and examined Agree with above Continue with current supportive care Monitor labs At this point the patient appears to be at baseline with regards to her liver function tests Patient will need to follow-up with [facility] [place] [facility] [place] more in [place] care Main issue of focus at this point is pain control and we will defer to attending physician Not much to add from a GI perspective we will sign off (Markus Newberry MD) Brionna Cisse Apr 02, 2017 17:03 Markus Newberry MD Apr 02, 2017 21:26
[2017-04-02 20:40] LABS: HEMOGLOBIN A1b 0.8 %; HEMOGLOBIN Ao 78.7 %; HEMOGLOBIN F 1.7 %; HEMOGLOBIN LA1C 1.5 %; HEMOGLOBIN P3 4.9 %
[2017-04-02] MEDS ORDERED: INSULIN DETEMIR 100 UNITS/ML VIAL SQ SCH (21:00)
[2017-04-02 21:13] VITALS: BP 114/74; PULSE 93; RESP 18; TEMP 98.4; O2SAT 99
[2017-04-02] MEDS: ASCORBIC ACID 500 MG TAB PO SCH (21:41)
[2017-04-02] MEDS: FERROUS SULFATE 325 MG (65 MG ELEMENTAL IRON) TAB PO SCH (21:41)
[2017-04-02] MEDS ORDERED: SODIUM CHLOR 0.9% 1000 ML INJ 1,000 ML IV PRN (22:08)
[2017-04-02 23:20] VITALS: BP 110/67; PULSE 91; RESP 16; TEMP 96.6; O2SAT 100
[2017-04-03] MEDS: D5-NS + KCL 20 MEQ INJ 1,000 ML IV SCH (01:02)
[2017-04-03] MEDS: HYDROmorphone HCL PF 0.5 MG/0.5 ML SYRINGE IV PUSH PRN ×3 (02:09→10:37)
[2017-04-03] MEDS: INSULIN ASPART SUPPLEMENTAL SCALE SQ SCH ×2 (03:00→08:00)
[2017-04-03 03:50] VITALS: BP 110/73; PULSE 88; RESP 16; TEMP 96.3; O2SAT 98
[2017-04-03 07:17] VITALS: BP 100/60; PULSE 91; RESP 18; TEMP 98.2; O2SAT 99
[2017-04-03] MEDS: SODIUM CHLORIDE 0.9% FLUSH 10 ML FLUSH IV FLUSH SCH (08:01)
[2017-04-03] MEDS: HEPARIN SODIUM - SQ 10,000 UNITS/ML VIAL SQ SCH (09:22)
[2017-04-03] MEDS: FERROUS SULFATE 325 MG (65 MG ELEMENTAL IRON) TAB PO SCH (09:23)
[2017-04-03] MEDS: PANTOPRAZOLE SOD 40 MG DELAYED RELEASE TAB PO SCH (09:23)
[2017-04-03] MEDS: ASCORBIC ACID 500 MG TAB PO SCH (09:23)
[2017-04-03 09:51] LABS: BICARBONATE 27.1 MEQ/L (21.0-32.0); MAGNESIUM 1.8 MG/DL (1.5-2.5); POTASSIUM 3.5 MEQ/L (3.5-5.1)
[2017-04-03 11:11] VITALS: RESP 20
[2017-04-03] MEDS ORDERED: INSULIN ASPART SUPPLEMENTAL SCALE SQ SCH (12:00)
[2017-04-03] MEDS ORDERED: HYDROmorphone HCL 2 MG TAB PO PRN ×2 (13:00)
[2017-04-03] MEDS ORDERED: FERR325T20 PO (15:38)
--- NOTE | 2017-04-03 15:40 | HHI.DCPOC ---
Discharge Care Plan Diagnosis: (1) abdominal pain, acute and chronic Goals to Promote Your Health * To prevent worsening of your condition and complications * To maintain your health at the optimal level Directions to Meet Your Goals Take your medications as prescribed Follow your dietary instruction Follow activity as directed Keep your appointments as scheduled Take your immunizations and boosters as scheduled If your symptoms worsen call your PCP, if no PCP go to Urgent Care Center or Emergency Room Smoking is Dangerous to Your Health. Avoid second hand smoke Call the 24-hour hour crisis hotline for domestic abuse at Margie Collins Apr 03, 2017 15:40
[2017-04-03] MEDS ORDERED: DILA2TAB4 PO (16:31)
[2017-04-03] MEDS ORDERED: ASCO500 PO (16:32)
--- NOTE | 2017-04-03 16:46 | HHI.PR ---
Subjective Remarks Follow-up abdominal pain. She is improved tolerating diet. Counseled regarding narcotics. Cleared for discharge by GI Objective Vitals Vital Signs Date Time Temp Pulse Resp B/P (MAP) Pulse Ox O2 Delivery O2 Flow Rate FiO2 04/03/17 11:11 20 04/03/17 08:00 18 04/03/17 07:17 98.2 91 18 100/60 (73) 99 04/03/17 03:50 96.3 88 16 110/73 (85) 98 04/02/17 23:20 96.6 91 16 110/67 (81) 100 04/02/17 21:13 98.4 93 18 114/74 (87) 99 I/O 04/02/17 04/02/17 04/02/17 04/03/17 04/03/17 04/03/17 07:00 15:00 23:00 07:00 15:00 23:00 Intake Total 600 ml Balance 600 ml Intake IV Total 600 ml Result Diagram: 04/02/17 0624 04/03/17 0836 Imaging Last Impressions Abdomen/Pelvis CT 04/01/17 0000 Signed Impressions: Service Date/Time: Saturday, April 01, 2017 19:09 - CONCLUSION: 1. Cirrhotic liver. 2. Persistent pneumobilia. The biliary stent is no longer seen. 3. Hazy density seen around the pancreas concerning for pancreatitis. This appearance is unchanged. There is persistent dilatation of the pancreatic duct. 4. Nonobstructing renal stones seen bilaterally measuring 8 mm at the inferior left collecting system and 2 mm at the superior right collecting system. 5. Status post splenectomy. Mele Cuba MD Objective Remarks GENERAL: female lying in bed in no distress SKIN: No rashes, ecchymoses or lesions. Cool and dry. CARDIOVASCULAR: Regular rate and rhythm without murmurs, gallops, or rubs. RESPIRATORY: Clear to auscultation. Breath sounds equal bilaterally. No wheezes , rales, or rhonchi. GASTROINTESTINAL: Abdomen soft, nondistended. No peritoneal signs. MUSCULOSKELETAL: Extremities without clubbing, cyanosis, or edema. No joint tenderness, effusion, or edema noted. No calf tenderness. NEUROLOGICAL: Awake and alert. Cranial nerves II through XII intact. Motor and sensory grossly within normal limits. Normal speech. Procedures None A/P Problem List: (1) Abdominal pain ICD Code: R10.9 - Abdominal pain Status: Acute (2) Diabetes mellitus ICD Code: E11.9 - Diabetes mellitus Status: Acute Assessment and Plan 46-year-old female with PSC, biliary and pancreatic duct strictures and type 1 diabetes mellitus presents with a 1 day history of intractable right upper quadrant pain. 1. Abdominal pain/PSC/Strictures/Cirrhosis/Transaminitis Consult Gastroenterology, appreciate recommendations. Conservative management. Stable for discharge if tolerating by mouth and pain management with by mouth medication Diet as tolerated Dilaudid for pain consulted regarding narcotics Patient being followed at [facility] for possible liver transplant Transaminitis is chronic CT of the abdomen with no acute changes 2. Diabetes mellitus with erratic control Patient responded to insulin in the ED Continue home insulin Add sliding scale A1c 10.7. Diabetic education 3. Hyponatremia. Improved Hypokalemia. Potassium 60 mEq by mouth 1. Repeat BMP improved FEN prn NS at 60 cc/hr Electrolytes: Replete prn SCDs Discharge Planning Discharge patient to home Condition on discharge: Improved Regular Diet as tolerated Ad Linda activity no driving Rx written: Dilaudid, iron and ascorbic acid Follow-up with primary care physician and GI Problem Qualifiers (1) Abdominal pain: Qualified Codes: R10.11 - Right upper quadrant pain Dillon Landeros MD Apr 03, 2017 16:46
== END 2017-04-03 18:28 | disposition home or self-care (01) ==
LOC: NEPE 16:21 → NEDA 21:41 → NEPHCDU 23:00
PROVIDERS: ADMIT Internal Medicine; ATTEND Internal Medicine
DX: R10.11 Right upper quadrant pain (principal); E10.65 Type 1 diabetes mellitus with hyperglycemia; E87.1 Hypo-osmolality and hyponatremia; K74.60 Unspecified cirrhosis of liver; K83.0 Cholangitis; R74.0 Nonspecific elevation of levels of transaminase and lactic acid dehydrogenase [LDH]; N20.0 Calculus of kidney; R68.83 Chills (without fever); R19.7 Diarrhea, unspecified; R11.2 Nausea with vomiting, unspecified; R00.0 Tachycardia, unspecified; E87.6 Hypokalemia; R79.89 Other specified abnormal findings of blood chemistry; Z85.72 Personal history of non-Hodgkin lymphomas; Z87.442 Personal history of urinary calculi; Z90.81 Acquired absence of spleen
CPT/HCPCS: 74176; 80048; 80053; 80061; 80076; 81001; 82010; 82607; 82728; 82746; 82948; 83036; 83540; 83550; 83690; 83735; 84703; 85007; 85027; 96361; 96365; 96366; 96372; 96375; 96376; 99285; G0378; J0780; J1170; J1644; J1815; J2405; J3480; J7030

== ENCOUNTER 2017-04-08 10:49 | Emergency (ER) | payer OTHER ==
[~2017-04-08] VITALS: Ht 162.6 cm; Wt 60.0 kg
[~2017-04-08 10:49] MED LIST changes: +ASCO500 PO; +DILA2TAB4 PO; +FERR325T20 PO
[2017-04-08 10:51] VITALS: BP 124/79; PULSE 89; RESP 18; TEMP 98.2; O2SAT 95
[2017-04-08] MEDS ORDERED: SODIUM CHLOR 0.9% 1000 ML INJ 1,000 ML IV SCH ×2 (11:53→14:33)
--- NOTE | 2017-04-08 11:58 | PD ---
HPI Chief Complaint: Diabetic Time Seen by Provider: 11:50 Travel History International Travel<30 days: No Contact w/Intl Traveler<30days: No Traveled to known affect area: No History of Present Illness HPI This is a 46-year-old female with history of type 1 diabetes, PTSD, biliary and pancreatic duct strictures who presents for evaluation. She reports that she took her typical 30 units of Lantus yesterday evening. This morning the patient felt that her blood sugar was low as she and her were driving to [facility]. She drinks 3 glasses of orange juice and drinks legs. Since then she has felt some nausea, some dizziness, she has had increased abdominal pain. Pain is a sharp pain in the right upper quadrant and right flank which is constant, worse this morning. She reports some increased urinary frequency and pressure when urinating for the past few weeks as well. She denies vomiting, acute diarrhea, chest pain or shortness of breath, fevers or chills. Her blood sugar is noted to be critically high in triage. She follows with GI at [facility] in [place]. This patient was admitted here for abdominal pain on April 01 with consultation to gastroenterology. She reports that she is prescribed oxycodone however she does not take it because it causes nausea. No other complaints. PFSH Past Medical History Arthritis: No Asthma: No Autoimmune Disease: No Blood Disorders: No Anxiety: No Depression: No Heart Rhythm Problems: No Cancer: Yes (NON HODGKINS LYMPHOMA) Cardiovascular Problems: No High Cholesterol: No Chemotherapy: Yes Chest Pain: No Congestive Heart Failure: No Cirrhosis: Yes COPD: No Cerebrovascular Accident: No Diabetes: Yes Patient Takes Glucophage: No Diminished Hearing: No Endocrine: No Gastrointestinal Disorders: Yes (sclerosing cholangitis) GERD: No Genitourinary: No Headaches: No Hiatal Hernia: No Heparin Induced Thrombocytopen: No Hypertension: No Immune Disorder: No Implanted Vascular Access Dvce: Yes Kidney Stones: Yes Medical other: Yes (HX OF ENLARGED SPLEEN, SPLENECTOMY 2004) Musculoskeletal: No Neurologic: No Psychiatric: No Reproductive: No Respiratory: No Immunizations Current: No Migraines: No Radiation Therapy: No Renal Failure: No Seizures: No Sickle Cell Disease: No Sleep Apnea: No Thyroid Disease: No Ulcer: Yes Tetanus Vaccination: < 5 Years ?: Not Menopausal: Yes : 2 Para: 2 Miscarriage: 0 : 0 Past Surgical History Abdominal Surgery: Yes (splenectomy, liver biopsy) AICD: No Arteriovenous Shunt: No Body Medical Devices: BILIARY DRAIN Cardiac Surgery: No Cholecystectomy: Yes Ear Surgery: No Endocrine Surgery: No Eye Surgery: No Genitourinary Surgery: No Gynecologic Surgery: No Insulin Pump: No Joint Replacement: No Neurologic Surgery: No Oral Surgery: No Pacemaker: No Thoracic Surgery: No Other Surgery: Yes (BILIARY DRAIN PLACED, LIVER BIOPSY,splenectomy, biliary stents) Social History Alcohol Use: No Tobacco Use: No Substance Use: No Allergies-Medications (Allergen,Severity, Reaction): Coded Allergies: gadobenic acid (Verified Allergy, Severe, BREATHING PROBLEMS, N/V,CHILLS, 04/08/17) gadodiamide (Verified Allergy, Severe, BREATHING PROBLEMS, N/V,CHILLS, ) gadoteridol (Verified Allergy, Severe, BREATHING PROBLEMS, N/V,CHILLS, ) ketorolac (Verified Allergy, Severe, Shortness of Breath, 04/08/17) morphine (Verified Allergy, Severe, BREATHING PROBLEMS, 04/08/17) tramadol (Verified Allergy, Mild, Shortness of Breath, 04/08/17) MRI PRECAUTION (Verified Adverse Reaction, Severe, NAUSEA; PER PATIENT IT IS A GADOLINIUM ALLERGY KMD 11/25/12, 04/08/17) Reported Meds & Prescriptions Reported Meds & Active Scripts Active Sm Chewable C (Ascorbic Acid) 500 Mg Chw 500 Mg PO BID 30 Days Dilaudid (Hydromorphone HCl) 2 Mg Tab 1 Mg PO Q6HR PRN Ferosul (Ferrous Sulfate) 325 Mg (65 Mg Iron) Tablet 325 Mg PO BID Reported Humalog Inj (Insulin Human Lispro) 1,000 Unit/10 Ml Vial 8 Units SQ TID Max dose at bedtime:( )units; sugars< 70,(0)units; sugars 150-199,(1)unit; sugars 200-249,(3)units; sugars 250-299,(5)units; sugars 300-349,(7)units; sugars more than 349,(9)units. Lantus Inj (Insulin Glargine) 1,000 Unit/10 Ml Vial 30 Units SQ HS Review of Systems Except as stated in HPI: all other systems reviewed are Neg Physical Exam Narrative GENERAL: Well-developed well-nourished female in no acute distress SKIN: Warm and dry. HEAD: Atraumatic. Normocephalic. EYES: Pupils equal and round. No scleral icterus. No injection or drainage. ENT: No nasal bleeding or discharge. Mucous membranes pink and moist. NECK: Trachea midline. No JVD. CARDIOVASCULAR: Regular rate and rhythm. No murmur appreciated. RESPIRATORY: No accessory muscle use. Clear to auscultation. Breath sounds equal bilaterally. GASTROINTESTINAL: Abdomen soft, hepatomegaly noted, right upper quadrant/ epigastric/right CVA tenderness is present without guarding. MUSCULOSKELETAL: No obvious deformities. No clubbing. No cyanosis. No edema. NEUROLOGICAL: Awake and alert. No obvious cranial nerve deficits. Motor grossly within normal limits. Normal speech. PSYCHIATRIC: Appropriate mood and affect; insight and judgment normal. Data Data Last Documented VS Vital Signs Date Time Temp Pulse Resp B/P (MAP) Pulse Ox O2 Delivery O2 Flow Rate FiO2 04/08/17 13:45 86 18 132/74 (93) 99 Room Air 04/08/17 10:51 98.2 Orders Orders Complete Blood Count With Diff (04/08/17 11:53) Comprehensive Metabolic Panel (04/08/17 11:53) Lipase (04/08/17 11:53) Urinalysis - C+S If Indicated (04/08/17 11:53) Iv Access Insert/Monitor (04/08/17 11:53) Ecg Monitoring (04/08/17 11:53) Sodium Chlor 0.9% 1000 Ml Inj (Ns 1000 M (04/08/17 11:53) Electrocardiogram (04/08/17 11:53) Beta Hydroxybutyrate (Acetone) (04/08/17 11:53) Hydromorphone Pf Inj (Dilaudid Pf Inj) (04/08/17 12:00) Ondansetron Inj (Zofran Inj) (04/08/17 12:00) Hydromorphone Pf Inj (Dilaudid Pf Inj) (04/08/17 13:45) Insulin Human Regular Inj (Novolin R Inj (04/08/17 14:45) Sodium Chlor 0.9% 1000 Ml Inj (Ns 1000 M (04/08/17 14:33) Ed Discharge Order (04/08/17 15:26) Labs Laboratory Tests Test 04/08/17 11:45 11/20/17 12:20 04/08/17 13:30 Urine Color YELLOW Urine Turbidity CLEAR Urine pH 6.0 Urine Specific [place] 1.031 Urine Protein NEG mg/dL Urine Glucose (UA) 1000 mg/dL Urine Ketones NEG mg/dL Urine Occult Blood NEG Urine Nitrite NEG Urine Bilirubin NEG Urine Urobilinogen LESS THAN 2.0 MG/DL Urine Leukocyte Esterase NEG Urine RBC LESS THAN 1 /hpf Urine WBC 1 /hpf Microscopic Urinalysis Comment CULT NOT INDICATED White Blood Count 8.8 TH/MM3 Red Blood Count 4.49 MIL/MM3 Hemoglobin 11.9 GM/DL Hematocrit 38.4 % Mean Corpuscular Volume 85.6 FL Mean Corpuscular Hemoglobin 26.4 PG Mean Corpuscular Hemoglobin Concent 30.9 % Red Cell Distribution Width 18.3 % Platelet Count 380 TH/MM3 Mean Platelet Volume 11.7 FL CBC Comment AUTO DIFF Differential Total Cells Counted 100 Neutrophils % (Manual) 74 % Band Neutrophils % 2 % Lymphocytes % 12 % Monocytes % 12 % Neutrophils # (Manual) 6.7 TH/MM3 Differential Comment FINAL DIFF MANUAL Platelet Estimate NORMAL Platelet Morphology Comment ENLARGED Target Cells 2+ Blood Urea Nitrogen 11 MG/DL Creatinine 0.42 MG/DL Random Glucose 626 MG/DL Total Protein 6.6 GM/DL Albumin 2.3 GM/DL Calcium Level 8.5 MG/DL Alkaline Phosphatase 1502 U/L Aspartate Amino Transf (AST/SGOT) 140 U/L Alanine Aminotransferase (ALT/SGPT) 127 U/L Total Bilirubin 2.7 MG/DL Sodium Level 127 MEQ/L Potassium Level 4.4 MEQ/L Chloride Level 97 MEQ/L Carbon Dioxide Level 21.0 MEQ/L Anion Gap 9 MEQ/L Estimat Glomerular Filtration Rate 162 ML/MIN Lipase 145 U/L B-Hydroxybutyrate 0.16 MMOL/L [facility] Medical Decision Making Medical Screen Exam Complete: Yes Emergency Medical Condition: Yes Medical Record Reviewed: Yes Differential Diagnosis Hyperglycemia, DKA, primary sclerosing cholangitis, chronic pain, pancreatitis, renal stone, pyelonephritis Narrative Course The patient was placed on a monitor and pulse oximetry. Blood sugar was obtained in triage reading "critically high." The patient was given IV fluids, Zofran, Dilaudid. Plan is for basic lab work, urinalysis. CBC reveals no acute abnormalities. CMP reveals a random glucose of 627 with resultant pseudohyponatremia, anion gap is normal with a normal carbon dioxide level, no evidence for DKA. AST 140, ALT 127, ALP 05/24/01, total bilirubin 2.7, consistent with her baseline liver function tests. Urinalysis reveals 1000 glucose with no ketones. Upon reexamination she is feeling improved. The patient will be given IV insulin bolus and then she will be discharged- repeat blood sugar 350. Diagnosis Primary Impression: abdominal pain, acute and chronic Additional Impression: Hyperglycemia Additional Instructions: Monitor blood sugar on a regular basis, advance diet as tolerated, follow-up with your solar energy technician and primary care physician and return for any emergent medical conditions. Med/Other Pt SpecificInfo: No Change to Meds Disposition: 01 DISCHARGE HOME Condition: Stable Damaso Panda Apr 08, 2017 11:58
[2017-04-08] MEDS ORDERED: ONDANSETRON HCL 4 MG/2 ML VIAL IV PUSH ONE (12:00)
[2017-04-08] MEDS ORDERED: HYDROmorphone HCL PF 0.5 MG/0.5 ML SYRINGE IV PUSH ONE ×2 (12:00→13:45)
[2017-04-08 12:26] LABS: BLOOD, URINE NEG (NEG); GLUCOSE,URINE 1000 mg/dL (NEG); KETONE, URINE NEG (NEG); NITRITE,URINE NEG (NEG); URINE COLOR YELLOW (YELLW/STRAW)
[2017-04-08 12:32] LABS: COMMENT (UR) CULT NOT INDICATED; CULTURE IF INDICATED CULT NOT INDICATED
[2017-04-08 12:47] LABS: HEMATOCRIT 38.4 % (35.0-46.0); MEAN CELL VOLUME 85.6 FL (80.0-100.0); MEAN CORPUSCULAR HEMOGLOBIN 26.4 PG (27.0-34.0); MEAN CORPUSCULAR HGB CONC 30.9 % (32.0-36.0); PLATELET COUNT 380 TH/MM3 (150-450); RED BLOOD COUNT 4.49 MIL/MM3 (4.00-5.30); RED CELL DISTRIBUTION WIDTH 18.3 % (11.6-17.2); WHITE BLOOD COUNT 8.8 TH/MM3 (4.0-11.0)
[2017-04-08 12:55] LABS: HEMO FLAGS AUTO DIFF
[2017-04-08 13:30] LABS: BANDS 2 % (0-6); NEUTROPHIL # MANUAL DIFF 6.7 TH/MM3 (1.8-7.7); POLYS (SEG NEUTROPHILS) 74 % (16-70); WBC DIFF SAMPLE 100
[2017-04-08 13:31] LABS: PLATELET ESTIMATE SMEAR NORMAL (NORMAL); PLATELET MORPHOLOGY ENLARGED (NORMAL); TARGET CELLS 2+ (NORMAL)
[2017-04-08 13:32] LABS: SCAN/DIFF FINAL DIFF MANUAL
[2017-04-08 13:45] VITALS: BP 132/74; PULSE 86; RESP 18; O2SAT 99
[2017-04-08 14:14] LABS: ANION GAP 9 MEQ/L (5-15)
[2017-04-08 14:19] LABS: ALT (GPT) 127 U/L (10-53); AST (GOT) 140 U/L (15-37); BETA-HYDROXYBUTYRATE 0.16 MMOL/L (0.00-0.39); BLOOD UREA NITROGEN 11 MG/DL (7-18); CHLORIDE 97 MEQ/L (98-107); GLOMERULAR FILTRATION RATE 162 ML/MIN (>89); POTASSIUM 4.4 MEQ/L (3.5-5.1); SODIUM (NA) 127 MEQ/L (136-145); TOTAL BILIRUBIN ADULT 2.7 MG/DL (0.2-1.0)
[2017-04-08 14:31] LABS: ALKALINE PHOSPHATASE 1502 U/L (45-117)
[2017-04-08] MEDS ORDERED: INSULIN HUMAN REGULAR 1,000 UNITS/10 ML VIAL IV PUSH ONE (14:45)
[2017-04-08 15:31] VITALS: RESP 18
[2017-04-08 15:43] VITALS: BP 112/68
== END 2017-04-08 15:59 | disposition home or self-care (01) ==
LOC: NEPE 10:49
DX: R10.9 Unspecified abdominal pain (principal); E10.65 Type 1 diabetes mellitus with hyperglycemia; F43.10 Post-traumatic stress disorder, unspecified; R11.0 Nausea; R42 Dizziness and giddiness; R10.11 Right upper quadrant pain; K74.60 Unspecified cirrhosis of liver; Z85.72 Personal history of non-Hodgkin lymphomas; Z87.442 Personal history of urinary calculi
CPT/HCPCS: 80053; 81001; 82010; 83690; 85007; 85027; 96361; 96374; 96375; 99284; J1170; J1815; J2405; J7030

== ENCOUNTER 2017-04-16 12:51 | Emergency (ER) | payer OTHER ==
[~2017-04-16] VITALS: Ht 162.6 cm; Wt 45.0 kg
[2017-04-16 12:53] VITALS: BP 130/76; PULSE 99; RESP 18; TEMP 99.2; O2SAT 100
[2017-04-16 13:22] VITALS: BP_DIAS 82; PULSE 96; RESP 20; O2SAT 100
[2017-04-16] MEDS ORDERED: ONDANSETRON HCL 4 MG/2 ML VIAL IV PUSH ONE (14:00)
[2017-04-16] MEDS ORDERED: HYDROmorphone HCL 2 MG TAB PO ONE ×2 (14:00→15:15)
--- NOTE | 2017-04-16 14:00 | PD ---
HPI Chief Complaint: GI Complaint Time Seen by Provider: 13:08 Travel History International Travel<30 days: No Contact w/Intl Traveler<30days: No Traveled to known affect area: No History of Present Illness HPI Is a 46-year-old woman with a primary sclerosing cholangitis, recurrent pancreatitis, biliary and pancreatic strictures, non-Hodgkin's lymphoma, type 1 diabetes. She has recurrent chronic abdominal pain. She reports not taking any medicine at home. She is given oxycodone earlier in the month from [facility]. She states she hasn't taken it makes her feel sick. She's had worsening pain last night and feels more jaundiced. She states she feels miserable. History Past Medical History Narrative Medical Primary Zosyn cholangitis Non-Hodgkin's lymphoma 2004, no recurrent disease Diabetes Biliary suspect extraction is Chronic recurrent abdominal pain Tetanus Vaccination: > 5 Years Influenza Vaccination: Yes Menopausal: Yes : 2 Para: 2 Social History Alcohol Use: No Tobacco Use: No Allergies-Medications (Allergen,Severity, Reaction): Coded Allergies: Gadolinium-Containing Contrast Medi (Verified Allergy, Severe, 04/16/17) gadobenic acid (Verified Allergy, Severe, BREATHING PROBLEMS, N/V,CHILLS, 04/16/17) gadodiamide (Verified Allergy, Severe, BREATHING PROBLEMS, N/V,CHILLS, ) gadoteridol (Verified Allergy, Severe, BREATHING PROBLEMS, N/V,CHILLS, ) ketorolac (Verified Allergy, Severe, Shortness of Breath, 04/16/17) morphine (Verified Allergy, Severe, BREATHING PROBLEMS, 04/16/17) tramadol (Verified Allergy, Mild, Shortness of Breath, 04/16/17) MRI PRECAUTION (Verified Adverse Reaction, Severe, NAUSEA; PER PATIENT IT IS A GADOLINIUM ALLERGY KMD 11/25/12, 04/16/17) Reported Meds & Prescriptions Reported Meds & Active Scripts Active Zofran Odt (Ondansetron Odt) 4 Mg Tab 4 Mg SL Q6HR PRN Hydromorphone (Hydromorphone HCl) 2 Mg Tab 2 Mg PO Q6H PRN Reported Humalog Inj (Insulin Human Lispro) 1,000 Unit/10 Ml Vial 8 Units SQ TID Max dose at bedtime:( )units; sugars< 70,(0)units; sugars 150-199,(1)unit; sugars 200-249,(3)units; sugars 250-299,(5)units; sugars 300-349,(7)units; sugars more than 349,(9)units. Lantus Inj (Insulin Glargine) 1,000 Unit/10 Ml Vial 30 Units SQ HS Review of Systems Except as stated in HPI: all other systems reviewed are Neg Physical Exam Narrative GENERAL: The 46-year-old woman, chronically ill-appearing, nontoxic. SKIN: Focused skin assessment warm/dry. HEAD: Atraumatic. Normocephalic. EYES: Pupils equal and round. No scleral icterus. No injection or drainage. ENT: No nasal bleeding or discharge. Mucous membranes pink and moist. NECK: Trachea midline. No JVD. CARDIOVASCULAR: Regular rate and rhythm. No murmur appreciated. RESPIRATORY: No accessory muscle use. Clear to auscultation. Breath sounds equal bilaterally. GASTROINTESTINAL: Abdomen flat. There is a epigastric ventral wall hernia that is tender but reducible. Otherwise abdomen is fairly scaphoid with moderate generalized tenderness. MUSCULOSKELETAL: No obvious deformities. No edema. NEUROLOGICAL: Awake and alert. No obvious cranial nerve deficits. Motor grossly within normal limits. Normal speech. Data Data Last Documented VS Vital Signs Date Time Temp Pulse Resp B/P (MAP) Pulse Ox O2 Delivery O2 Flow Rate FiO2 04/16/17 15:05 16 04/16/17 13:22 96 /82 100 Room Air 04/16/17 12:53 99.2 Orders Orders Complete Blood Count With Diff (04/16/17 13:47) Comprehensive Metabolic Panel (04/16/17 13:47) Lipase (04/16/17 13:47) Iv Access Insert/Monitor (04/16/17 13:47) Ondansetron Inj (Zofran Inj) (04/16/17 14:00) Hydromorphone (Dilaudid) (04/16/17 14:00) Hydromorphone (Dilaudid) (04/16/17 15:15) Insulin Human Regular Inj (Novolin R Inj (04/16/17 16:30) Labs Laboratory Tests Test 04/16/17 14:10 04/16/17 14:45 White Blood Count 12.7 TH/MM3 Red Blood Count 4.31 MIL/MM3 Hemoglobin 11.4 GM/DL Hematocrit 36.1 % Mean Corpuscular Volume 83.6 FL Mean Corpuscular Hemoglobin 26.3 PG Mean Corpuscular Hemoglobin Concent 31.5 % Red Cell Distribution Width 18.9 % Platelet Count 435 TH/MM3 Mean Platelet Volume 12.0 FL CBC Comment AUTO DIFF Differential Total Cells Counted 100 Neutrophils % (Manual) 78 % Band Neutrophils % 3 % Lymphocytes % 13 % Monocytes % 4 % Basophils % 2 % Neutrophils # (Manual) 10.3 TH/MM3 Differential Comment FINAL DIFF MANUAL Atypical Lymphocytes % Platelet Estimate NORMAL Platelet Morphology Comment ENLARGED Target Cells 2+ Blood Urea Nitrogen 6 MG/DL Creatinine 0.47 MG/DL Random Glucose 514 MG/DL Total Protein 7.5 GM/DL Albumin 2.4 GM/DL Calcium Level 8.9 MG/DL Alkaline Phosphatase 1890 U/L Aspartate Amino Transf (AST/SGOT) 251 U/L Alanine Aminotransferase (ALT/SGPT) 182 U/L Total Bilirubin 3.5 MG/DL Sodium Level 128 MEQ/L Potassium Level 4.9 MEQ/L Chloride Level 96 MEQ/L Carbon Dioxide Level 26.5 MEQ/L Anion Gap 6 MEQ/L Estimat Glomerular Filtration Rate 143 ML/MIN Lipase 103 U/L MDM Medical Decision Making Medical Screen Exam Complete: Yes Emergency Medical Condition: Yes Interpretation(s) LABS: CBC remarkable for mild leukocytosis. CMP: Remarkable for total bili 3.5, mildly elevated AST and ALT consistent with previous. Glucose is 514. Lipase: Normal. Differential Diagnosis Biliary obstruction, cholecystitis, biliary strictures, score sick cholangitis, other Narrative Course 46-year-old woman, chronic recurrent abdominal pain related to primary sclerosing cholangitis,11 CT scans this year alone, here for recurrent pain. Recent admission to [facility] with reportedly choledocholithiasis treated with ERCP. Feels like she is more jaundiced. Bilirubin runs between 6 and 2. We' ll recheck labs. Recommend oral medications for pain given her chronic recurrent abdominal pain, in the fact she is not taking anything regularly at home. Reassess. FINAL: 4:30 PM: On reassessment, patient was much more comfortable, using her phone, states she feels somewhat improved. Blood sugars elevated. We'll give her IV insulin. Offered to keep her from observation in the ED that she prefer to follow up at home. She has styloid tendon slip home and is comfortable managing her blood sugar. She'll follow-up with her specialist at [facility]. Diagnosis Primary Impression: abdominal pain, acute and chronic Additional Impression: Diabetes mellitus Additional Instructions: Hydromorphone as needed for pain. Use Zofran as needed for pain. Follow-up with your GI doctor at [facility]. Recheck your blood sugar when you get home. Monitor blood sugar and take insulin regularly as prescribed. Med/Other Pt SpecificInfo: Prescription(s) given Scripts Ondansetron Odt (Zofran Odt) 4 Mg Tab 4 MG SL Q6HR Y for Nausea/Vomiting, #30 TAB 0 Refills Prov: Fadi Ashford MD 04/16/17 Hydromorphone (Hydromorphone) 2 Mg Tab 2 MG PO Q6H Y for PAIN, #20 TAB 0 Refills Prov: Fadi Ashford MD 04/16/17 Disposition: 01 DISCHARGE HOME Condition: Stable Fadi Ashford MD Apr 16, 2017 14:00
[2017-04-16 14:33] LABS: HEMATOCRIT 36.1 % (35.0-46.0); HEMO FLAGS AUTO DIFF; MEAN CELL VOLUME 83.6 FL (80.0-100.0); MEAN CORPUSCULAR HEMOGLOBIN 26.3 PG (27.0-34.0); MEAN CORPUSCULAR HGB CONC 31.5 % (32.0-36.0); PLATELET COUNT 435 TH/MM3 (150-450); RED BLOOD COUNT 4.31 MIL/MM3 (4.00-5.30); RED CELL DISTRIBUTION WIDTH 18.9 % (11.6-17.2); WHITE BLOOD COUNT 12.7 TH/MM3 (4.0-11.0)
[2017-04-16 15:55] LABS: BANDS 3 % (0-6); BASOPHILS 2 % (0-2); NEUTROPHIL # MANUAL DIFF 10.3 TH/MM3 (1.8-7.7); POLYS (SEG NEUTROPHILS) 78 % (16-70); WBC DIFF SAMPLE 100
[2017-04-16 15:56] LABS: PLATELET ESTIMATE SMEAR NORMAL (NORMAL); PLATELET MORPHOLOGY ENLARGED (NORMAL); SCAN/DIFF FINAL DIFF MANUAL
[2017-04-16 15:58] LABS: TARGET CELLS 2+ (NORMAL)
[2017-04-16 16:12] LABS: ALT (GPT) 182 U/L (10-53); ANION GAP 6 MEQ/L (5-15); AST (GOT) 251 U/L (15-37); BICARBONATE 26.5 MEQ/L (21.0-32.0); CHLORIDE 96 MEQ/L (98-107); GLOMERULAR FILTRATION RATE 143 ML/MIN (>89); SODIUM (NA) 128 MEQ/L (136-145); TOTAL BILIRUBIN ADULT 3.5 MG/DL (0.2-1.0)
[2017-04-16 16:20] VITALS: RESP 16
[2017-04-16 16:21] LABS: POTASSIUM 4.9 MEQ/L (3.5-5.1)
[2017-04-16 16:23] LABS: BLOOD UREA NITROGEN 6 MG/DL (7-18)
[2017-04-16] MEDS ORDERED: ZOFR4TAB3 SL (16:30)
[2017-04-16] MEDS ORDERED: HYDR2TAB PO (16:30)
[2017-04-16] MEDS ORDERED: INSULIN HUMAN REGULAR 1,000 UNITS/10 ML VIAL IV PUSH ONE (16:30)
[2017-04-16 16:33] LABS: ALKALINE PHOSPHATASE 1890 U/L (45-117)
== END 2017-04-16 17:05 | disposition home or self-care (01) ==
LOC: NEPD 12:51
DX: R10.9 Unspecified abdominal pain (principal); G89.29 Other chronic pain; E10.9 Type 1 diabetes mellitus without complications; K83.0 Cholangitis; K86.1 Other chronic pancreatitis; Z85.72 Personal history of non-Hodgkin lymphomas; Z79.4 Long term (current) use of insulin
CPT/HCPCS: 80053; 83690; 85007; 85027; 96374; 96375; 99285; J1815; J2405

== ENCOUNTER 2017-04-24 14:18 | Emergency (ER) | payer OTHER ==
[~2017-04-24 14:18] MED LIST changes: -ASCO500 PO; -DILA2TAB4 PO; -FERR325T20 PO; +HYDR2TAB PO; +ZOFR4TAB3 SL
[2017-04-24 14:19] VITALS: BP 132/83; PULSE 90; RESP 16; TEMP 98.5; O2SAT 98
[2017-04-24] MEDS ORDERED: SODIUM CHLOR 0.9% 1000 ML INJ 1,000 ML IV SCH (15:42)
[2017-04-24] MEDS ORDERED: SODIUM CHLORIDE 0.9% FLUSH 10 ML FLUSH IV FLUSH PRN (15:45)
[2017-04-24] MEDS ORDERED: ONDANSETRON HCL 4 MG/2 ML VIAL IVP ONE (15:45)
[2017-04-24] MEDS ORDERED: HYDROmorphone HCL PF 1 MG/ML VIAL IVS ONE (15:45)
--- NOTE | 2017-04-24 15:50 | PD ---
HPI Chief Complaint: Abdominal Pain Time Seen by Provider: 15:37 Travel History International Travel<30 days: No Contact w/Intl Traveler<30days: No Traveled to known affect area: No History of Present Illness HPI 46-year-old woman with a primary sclerosing cholangitis, recurrent pancreatitis , biliary and pancreatic strictures, non-Hodgkin's lymphoma, type 1 diabetes. She has recurrent chronic abdominal pain. She reports not taking any medicine at home. She was recently seen here by Dr. Ashford on April 16, treated with insulin for hyperglycemia, as given 2 mg hydromorphone by mouth #20, as well as Zofran 4 mg by mouth. She has not filled either of these prescriptions at this time. Patient is followed by [facility], has an appointment next week with them. Patient is concerned about her worsening pain today. Convinced her skin turned yellow earlier but now has improved. Patient's current pain is 8 out of 10. Patient has multiple allergies please see list. PFSH Past Medical History Arthritis: No Asthma: No Autoimmune Disease: No Blood Disorders: No Anxiety: No Depression: No Heart Rhythm Problems: No Cancer: Yes (NON HODGKINS LYMPHOMA) Cardiovascular Problems: No High Cholesterol: No Chemotherapy: Yes Chest Pain: No Congestive Heart Failure: No Cirrhosis: Yes COPD: No Cerebrovascular Accident: No Diabetes: Yes Diminished Hearing: No Endocrine: No Gastrointestinal Disorders: Yes (sclerosing cholangitis) GERD: No Genitourinary: No Headaches: No Hiatal Hernia: No Heparin Induced Thrombocytopen: No Hypertension: No Immune Disorder: No Implanted Vascular Access Dvce: Yes Kidney Stones: Yes Musculoskeletal: No Neurologic: No Psychiatric: No Reproductive: No Respiratory: No Immunizations Current: No Migraines: No Radiation Therapy: No Renal Failure: No Seizures: No Sickle Cell Disease: No Sleep Apnea: No Thyroid Disease: No Ulcer: Yes Menopausal: Yes : 2 Para: 2 Miscarriage: 0 : 0 Past Surgical History Abdominal Surgery: Yes (splenectomy, liver biopsy) AICD: No Arteriovenous Shunt: No Body Medical Devices: BILIARY DRAIN Cardiac Surgery: No Cholecystectomy: Yes Ear Surgery: No Endocrine Surgery: No Eye Surgery: No Genitourinary Surgery: No Gynecologic Surgery: No Insulin Pump: No Joint Replacement: No Neurologic Surgery: No Oral Surgery: No Pacemaker: No Thoracic Surgery: No Other Surgery: Yes (BILIARY DRAIN PLACED, LIVER BIOPSY,splenectomy, biliary stents) Social History Alcohol Use: No Tobacco Use: No Substance Use: No Allergies-Medications (Allergen,Severity, Reaction): Coded Allergies: Gadolinium-Containing Contrast Medi (Verified Allergy, Severe, 04/16/17) gadobenic acid (Verified Allergy, Severe, BREATHING PROBLEMS, N/V,CHILLS, 04/16/17) gadodiamide (Verified Allergy, Severe, BREATHING PROBLEMS, N/V,CHILLS, ) gadoteridol (Verified Allergy, Severe, BREATHING PROBLEMS, N/V,CHILLS, ) ketorolac (Verified Allergy, Severe, Shortness of Breath, 04/16/17) morphine (Verified Allergy, Severe, BREATHING PROBLEMS, 04/16/17) tramadol (Verified Allergy, Mild, Shortness of Breath, 04/16/17) MRI PRECAUTION (Verified Adverse Reaction, Severe, NAUSEA; PER PATIENT IT IS A GADOLINIUM ALLERGY KMD 11/25/12, 04/16/17) Reported Meds & Prescriptions Reported Meds & Active Scripts Active Zofran Odt (Ondansetron Odt) 4 Mg Tab 4 Mg SL Q6HR PRN Hydromorphone (Hydromorphone HCl) 2 Mg Tab 2 Mg PO Q6H PRN Reported Humalog Inj (Insulin Human Lispro) 1,000 Unit/10 Ml Vial 8 Units SQ TID Max dose at bedtime:( )units; sugars< 70,(0)units; sugars 150-199,(1)unit; sugars 200-249,(3)units; sugars 250-299,(5)units; sugars 300-349,(7)units; sugars more than 349,(9)units. Lantus Inj (Insulin Glargine) 1,000 Unit/10 Ml Vial 30 Units SQ HS Review of Systems Except as stated in HPI: all other systems reviewed are Neg General / Constitutional: No: Fever Eyes: No: Visual changes HENT: No: Headaches Cardiovascular: No: Chest Pain or Discomfort Respiratory: No: Shortness of Breath Gastrointestinal: Positive: Nausea, Abdominal Pain Genitourinary: No: Dysuria Musculoskeletal: No: Pain Skin: No Rash Neurologic: No: Weakness Psychiatric: No: Depression Endocrine: No: Polydipsia Hematologic/Lymphatic: No: Easy Bruising Physical Exam Narrative GENERAL: Patient is in mild to moderate distress. Patient has cachectic appearance. SKIN: Warm and dry. Mild if any jaundice noted, decreased turgor with mild tenting. HEAD: Atraumatic. Normocephalic. EYES: Pupils equal and round. No scleral icterus. No injection or drainage. ENT: No nasal bleeding or discharge. Mucous membranes pink and moist. Normal pharynx. Airway is patent. NECK: Trachea midline. Supple and nontender. CARDIOVASCULAR: Regular rate and rhythm. RESPIRATORY: No accessory muscle use. Clear to auscultation. Breath sounds equal bilaterally. GASTROINTESTINAL: Abdomen soft, moderate generalized tenderness, nondistended. Hepatic and splenic margins not palpable. MUSCULOSKELETAL: Extremities without clubbing, cyanosis, or edema. No obvious deformities. NEUROLOGICAL: Awake and alert. No obvious cranial nerve deficits. Motor grossly within normal limits. Five out of 5 muscle strength in the arms and legs. Normal speech. PSYCHIATRIC: Appropriate mood and affect; insight and judgment normal. Data Data Last Documented VS Vital Signs Date Time Temp Pulse Resp B/P (MAP) Pulse Ox O2 Delivery O2 Flow Rate FiO2 04/24/17 16:01 98 04/24/17 14:19 98.5 90 16 Orders Orders Complete Blood Count With Diff (04/24/17 14:55) Comprehensive Metabolic Panel (04/24/17 14:55) Direct Bilirubin (04/24/17 14:55) Lipase (04/24/17 14:55) Urinalysis - C+S If Indicated (04/24/17 15:42) Iv Access Insert/Monitor (04/24/17 15:42) Ecg Monitoring (04/24/17 15:42) Oximetry (04/24/17 15:42) Ondansetron Inj (Zofran Inj) (04/24/17 15:45) Sodium Chlor 0.9% 1000 Ml Inj (Ns 1000 M (04/24/17 15:42) Sodium Chloride 0.9% Flush (Ns Flush) (04/24/17 15:45) Hydromorphone Pf Inj (Dilaudid Pf Inj) (04/24/17 15:45) Insulin Human Regular Inj (Novolin R Inj (04/24/17 17:00) Labs Laboratory Tests Test 04/24/17 15:45 04/24/17 16:00 White Blood Count 8.9 TH/MM3 Red Blood Count 4.62 MIL/MM3 Hemoglobin 12.0 GM/DL Hematocrit 37.9 % Mean Corpuscular Volume 82.1 FL Mean Corpuscular Hemoglobin 25.9 PG Mean Corpuscular Hemoglobin Concent 31.5 % Red Cell Distribution Width 18.5 % Platelet Count 354 TH/MM3 Mean Platelet Volume 11.2 FL CBC Comment AUTO DIFF Blood Urea Nitrogen 6 MG/DL Creatinine 0.49 MG/DL Random Glucose 419 MG/DL Total Protein 7.3 GM/DL Albumin 2.4 GM/DL Calcium Level 8.9 MG/DL Alkaline Phosphatase 1995 U/L Aspartate Amino Transf (AST/SGOT) 223 U/L Alanine Aminotransferase (ALT/SGPT) 190 U/L Total Bilirubin 3.1 MG/DL Direct Bilirubin 2.5 MG/DL Sodium Level 132 MEQ/L Potassium Level 4.0 MEQ/L Chloride Level 102 MEQ/L Carbon Dioxide Level 21.8 MEQ/L Anion Gap 8 MEQ/L Estimat Glomerular Filtration Rate 136 ML/MIN Lipase 134 U/L Urine Color YELLOW Urine Turbidity CLEAR Urine pH 6.5 Urine Specific [place] 1.035 Urine Protein NEG mg/dL Urine Glucose (UA) 1000 mg/dL Urine Ketones NEG mg/dL Urine Occult Blood NEG Urine Nitrite NEG Urine Bilirubin NEG Urine Urobilinogen LESS THAN 2.0 MG/DL Urine Leukocyte Esterase NEG Urine RBC LESS THAN 1 /hpf Urine WBC 2 /hpf Urine Squamous Epithelial Cells 8 /hpf Microscopic Urinalysis Comment CULT NOT INDICATED MDM Medical Decision Making Medical Screen Exam Complete: Yes Emergency Medical Condition: Yes Medical Record Reviewed: Yes Differential Diagnosis Abdominal pain. Nausea. Cholangitis. Chronic liver disease with cirrhosis. History of pancreatitis. Diabetes. Narrative Course Patient appears medically stable at time of exam. Labs are checked including CBC, CMP, and lipase. IV access is obtained patient is given 4 mg Zofran IV as well as 1 mg hydromorphone IV. Patient is given 1000 mg normal saline bolus. Blood sugar is 419. Labs otherwise are essentially unchanged from previous. She continues to have transaminitis. These are not significantly elevated compared to previous lab. She is given 5 units regular insulin IV. Patient feels improved. Patient will be discharged home with recommendation to fill the pain medicine she received on April 16, 2017. Patient to follow up with [facility] next week as scheduled. Diagnosis Primary Impression: abdominal pain, acute and chronic Additional Impressions: Hyperglycemia diabetes Referrals: Primary Care Physician Patient Instructions: Abdominal Pain (ED), Diabetic Hyperglycemia (ED), General Instructions Additional Instructions: Patient will be discharged home with recommendation to fill the pain medicine she received on April 16, 2017. Patient to follow up with [facility] next week as scheduled. Med/Other Pt SpecificInfo: No Change to Meds Disposition: 01 DISCHARGE HOME Condition: Stable Zach Soliman Apr 24, 2017 15:50
[2017-04-24 16:01] VITALS: O2SAT 98
[2017-04-24 16:11] LABS: HEMATOCRIT 37.9 % (35.0-46.0); MEAN CELL VOLUME 82.1 FL (80.0-100.0); MEAN CORPUSCULAR HEMOGLOBIN 25.9 PG (27.0-34.0); MEAN CORPUSCULAR HGB CONC 31.5 % (32.0-36.0); PLATELET COUNT 354 TH/MM3 (150-450); RED BLOOD COUNT 4.62 MIL/MM3 (4.00-5.30); RED CELL DISTRIBUTION WIDTH 18.5 % (11.6-17.2); WHITE BLOOD COUNT 8.9 TH/MM3 (4.0-11.0)
[2017-04-24 16:13] LABS: BLOOD, URINE NEG (NEG); COMMENT (UR) CULT NOT INDICATED; CULTURE IF INDICATED CULT NOT INDICATED; GLUCOSE,URINE 1000 mg/dL (NEG); KETONE, URINE NEG (NEG); NITRITE,URINE NEG (NEG); PH, URINE 6.5 (5.0-8.5); SQUAMOUS EPITHELIAL CELL URINE 8 /hpf (0-5); URINE COLOR YELLOW (YELLW/STRAW)
[2017-04-24 16:21] LABS: HEMO FLAGS AUTO DIFF
[2017-04-24 16:32] LABS: ANION GAP 8 MEQ/L (5-15)
[2017-04-24 16:44] LABS: ALKALINE PHOSPHATASE 1995 U/L (45-117); ALT (GPT) 190 U/L (10-53); AST (GOT) 223 U/L (15-37); BICARBONATE 21.8 MEQ/L (21.0-32.0); BLOOD UREA NITROGEN 6 MG/DL (7-18); CHLORIDE 102 MEQ/L (98-107); GLOMERULAR FILTRATION RATE 136 ML/MIN (>89); SODIUM (NA) 132 MEQ/L (136-145); TOTAL BILIRUBIN ADULT 3.1 MG/DL (0.2-1.0)
[2017-04-24] MEDS ORDERED: INSULIN HUMAN REGULAR 1,000 UNITS/10 ML VIAL IV PUSH ONE (17:00)
[2017-04-24 17:02] LABS: BANDS 2 % (0-6); BASOPHILS 2 % (0-2); NEUTROPHIL # MANUAL DIFF 6.9 TH/MM3 (1.8-7.7); POLYS (SEG NEUTROPHILS) 75 % (16-70); WBC DIFF SAMPLE 100
[2017-04-24 17:03] LABS: TARGET CELLS 2+ (NORMAL)
[2017-04-24 17:04] LABS: PLATELET ESTIMATE SMEAR NORMAL (NORMAL); PLATELET MORPHOLOGY ENLARGED (NORMAL); SCAN/DIFF FINAL DIFF MANUAL
== END 2017-04-24 18:11 | disposition home or self-care (01) ==
LOC: NEPD 14:18
DX: R10.9 Unspecified abdominal pain (principal); G89.29 Other chronic pain; E10.65 Type 1 diabetes mellitus with hyperglycemia; Z79.4 Long term (current) use of insulin
CPT/HCPCS: 80053; 81001; 82248; 83690; 85007; 85027; 96374; 96375; 99284; J1170; J1815; J2405; J7030

== ENCOUNTER 2017-06-01 12:07 | Emergency (ER) | payer OTHER ==
[~2017-06-01] VITALS: Ht 162.6 cm; Wt 46.0 kg
[2017-06-01 12:09] VITALS: BP 135/75; PULSE 94; RESP 14; TEMP 97.7; O2SAT 100
[2017-06-01 13:10] VITALS: BP 123/82; PULSE 93; RESP 18; O2SAT 99
[2017-06-01] MEDS ORDERED: SODIUM CHLOR 0.9% 1000 ML INJ 1,000 ML IV SCH (13:17)
--- NOTE | 2017-06-01 13:26 | PD ---
HPI Chief Complaint: Abdominal Pain Time Seen by Provider: 13:03 Travel History International Travel<30 days: No Contact w/Intl Traveler<30days: No Traveled to known affect area: No History of Present Illness HPI 46-year-old female with a history of noncompliance and primary sclerosing cholangitis and type 1 diabetes presents emergency department with diffuse abdominal pain for approximately 5 days. Patient states that she is also has some nausea with occasional nonbloody vomiting. States she has had intermittent diarrhea and constipation as well. Patient states her abdominal pain is mainly in the right upper quadrant but also extends into the left upper quadrant. Nothing improves or relieves her pain. Patient does not take any medication at home for this. Patient has not taken any medication to relieve her pain. She states this pain is similar to previous episodes. Patient has a surgical history significant for a liver biopsy and splenectomy. Denies fever but does state she has had chills. Her father states that she has had a 20 pound weight loss in the last year. PFSH Past Medical History Arthritis: No Asthma: No Autoimmune Disease: No Blood Disorders: No Anxiety: No Depression: No Heart Rhythm Problems: No Cancer: Yes (NON HODGKINS LYMPHOMA) Cardiovascular Problems: No High Cholesterol: No Chemotherapy: Yes Chest Pain: No Congestive Heart Failure: No Cirrhosis: Yes COPD: No Cerebrovascular Accident: No Diabetes: Yes Patient Takes Glucophage: No Diminished Hearing: No Endocrine: No Gastrointestinal Disorders: Yes (sclerosing cholangitis) GERD: No Genitourinary: No Headaches: No Hepatitis: No Hiatal Hernia: No Heparin Induced Thrombocytopen: No Hypertension: No Immune Disorder: No Implanted Vascular Access Dvce: Yes Kidney Stones: Yes Medical other: Yes (HX OF ENLARGED SPLEEN, SPLENECTOMY 2004) Musculoskeletal: No Neurologic: No Psychiatric: No Reproductive: No Respiratory: No Immunizations Current: No Migraines: No Radiation Therapy: No Renal Failure: No Seizures: No Sickle Cell Disease: No Sleep Apnea: No Thyroid Disease: No Ulcer: Yes ?: Not Menopausal: Yes : 2 Para: 2 Miscarriage: 0 : 0 Past Surgical History Abdominal Surgery: Yes (splenectomy, liver biopsy) AICD: No Arteriovenous Shunt: No Body Medical Devices: BILIARY DRAIN Cardiac Surgery: No Cholecystectomy: Yes Ear Surgery: No Endocrine Surgery: No Eye Surgery: No Genitourinary Surgery: No Gynecologic Surgery: No Insulin Pump: No Joint Replacement: No Neurologic Surgery: No Oral Surgery: No Pacemaker: No Thoracic Surgery: No Other Surgery: Yes (BILIARY DRAIN PLACED, LIVER BIOPSY,splenectomy, biliary stents) Social History Alcohol Use: No Tobacco Use: No Substance Use: No Allergies-Medications (Allergen,Severity, Reaction): Coded Allergies: Gadolinium-Containing Contrast Medi (Verified Allergy, Severe, 06/01/17) fentanyl (Verified Allergy, Severe, SOB, 06/01/17) gadobenic acid (Verified Allergy, Severe, BREATHING PROBLEMS, N/V,CHILLS, 06/01/17) gadodiamide (Verified Allergy, Severe, BREATHING PROBLEMS, N/V,CHILLS, ) gadoteridol (Verified Allergy, Severe, BREATHING PROBLEMS, N/V,CHILLS, ) ketorolac (Verified Allergy, Severe, Shortness of Breath, 06/01/17) morphine (Verified Allergy, Severe, BREATHING PROBLEMS, 06/01/17) tramadol (Verified Allergy, Mild, Shortness of Breath, 06/01/17) MRI PRECAUTION (Verified Adverse Reaction, Severe, NAUSEA; PER PATIENT IT IS A GADOLINIUM ALLERGY KMD 11/25/12, 06/01/17) Reported Meds & Prescriptions Reported Meds & Active Scripts Active Zofran Odt (Ondansetron Odt) 4 Mg Tab 4 Mg SL Q8HR PRN 7 Days Lantus Inj (Insulin Glargine) 1,000 Unit/10 Ml Vial 30 Units SQ HS 14 Days Reported Humalog Inj (Insulin Human Lispro) 1,000 Unit/10 Ml Vial 8 Units SQ TID Max dose at bedtime:( )units; sugars< 70,(0)units; sugars 150-199,(1)unit; sugars 200-249,(3)units; sugars 250-299,(5)units; sugars 300-349,(7)units; sugars more than 349,(9)units. Lantus Inj (Insulin Glargine) 1,000 Unit/10 Ml Vial 30 Units SQ HS Review of Systems Except as stated in HPI: all other systems reviewed are Neg Physical Exam Narrative GENERAL: Well developed, well-nourished sitting comfortably in bed SKIN: Focused skin assessment warm/dry. HEAD: Atraumatic. Normocephalic. EYES: Pupils equal and round. Scleral icterus present. No injection or drainage. ENT: No nasal bleeding or discharge. Mucous membranes pink and moist. NECK: Trachea midline. No JVD. No lymphadenopathy CARDIOVASCULAR: Regular rate and rhythm. No murmur appreciated. RESPIRATORY: No accessory muscle use. Clear to auscultation. Breath sounds equal bilaterally. GASTROINTESTINAL: Abdomen soft, nondistended. No fluid wave. No caput descent. TTP diffusely but localizes to the right upper and left upper quadrants. No rebound tenderness. No ecchymosis or rashes. 2 scars consistent with patient's history of his splenectomy and liver biopsy. MUSCULOSKELETAL: No obvious deformities. No clubbing. No cyanosis. No edema. NEUROLOGICAL: Awake and alert. No obvious cranial nerve deficits. Motor grossly within normal limits. Normal speech. PSYCHIATRIC: Appropriate mood and affect; insight and judgment normal. Data Data Last Documented VS Vital Signs Date Time Temp Pulse Resp B/P (MAP) Pulse Ox O2 Delivery O2 Flow Rate FiO2 06/01/17 18:26 06/01/17 14:47 84 14 100 Room Air 06/01/17 12:09 97.7 Orders Orders Complete Blood Count With Diff (06/01/17 13:17) Comprehensive Metabolic Panel (06/01/17 13:17) Lipase (06/01/17 13:17) Urinalysis - C+S If Indicated (06/01/17 13:17) Ondansetron Inj (Zofran Inj) (06/01/17 13:30) Sodium Chlor 0.9% 1000 Ml Inj (Ns 1000 M (06/01/17 13:17) Hydromorphone Pf Inj (Dilaudid Pf Inj) (06/01/17 13:30) Direct Bilirubin (06/01/17 13:18) Ct Abd/Pel W/O Iv Contrast (06/01/17 ) Hydromorphone Pf Inj (Dilaudid Pf Inj) (06/01/17 15:30) Sodium Chlor 0.9% 1000 Ml Inj (Ns 1000 M (06/01/17 15:30) Beta Hydroxybutyrate (Acetone) (06/01/17 15:32) Insulin Human Regular Inj (Novolin R Inj (06/01/17 16:15) Ed Discharge Order (06/01/17 17:39) Labs Laboratory Tests Test 1/13/18 13:40 06/01/17 16:15 White Blood Count 15.3 TH/MM3 Red Blood Count 4.05 MIL/MM3 Hemoglobin 11.2 GM/DL Hematocrit 35.5 % Mean Corpuscular Volume 87.7 FL Mean Corpuscular Hemoglobin 27.7 PG Mean Corpuscular Hemoglobin Concent 31.6 % Red Cell Distribution Width 19.2 % Platelet Count 290 TH/MM3 Mean Platelet Volume 12.0 FL Neutrophils (%) (Auto) 30.7 % Lymphocytes (%) (Auto) 62.5 % Monocytes (%) (Auto) 5.0 % Eosinophils (%) (Auto) 0.8 % Basophils (%) (Auto) 1.0 % Neutrophils # (Auto) 4.7 TH/MM3 Lymphocytes # (Auto) 9.6 TH/MM3 Monocytes # (Auto) 0.8 TH/MM3 Eosinophils # (Auto) 0.1 TH/MM3 Basophils # (Auto) 0.2 TH/MM3 CBC Comment AUTO DIFF Differential Total Cells Counted 100 Neutrophils % (Manual) 80 % Band Neutrophils % 1 % Lymphocytes % 15 % Monocytes % 4 % Neutrophils # (Manual) 12.4 TH/MM3 Differential Comment FINAL DIFF MANUAL Platelet Estimate NORMAL Platelet Morphology Comment ENLARGED Target Cells 2+ Urine Color YELLOW Urine Turbidity CLEAR Urine pH 7.0 Urine Specific [place] 1.028 Urine Protein NEG mg/dL Urine Glucose (UA) 1000 mg/dL Urine Ketones NEG mg/dL Urine Occult Blood NEG Urine Nitrite NEG Urine Bilirubin NEG Urine Urobilinogen LESS THAN 2.0 MG/DL Urine Leukocyte Esterase NEG Urine RBC 1 /hpf Urine WBC 1 /hpf Urine Squamous Epithelial Cells 5 /hpf Microscopic Urinalysis Comment CULT NOT INDICATED Blood Urea Nitrogen 8 MG/DL Creatinine 0.50 MG/DL Random Glucose 562 MG/DL Total Protein 6.7 GM/DL Albumin 2.1 GM/DL Calcium Level 8.4 MG/DL Alkaline Phosphatase 1916 U/L Aspartate Amino Transf (AST/SGOT) 215 U/L Alanine Aminotransferase (ALT/SGPT) 178 U/L Total Bilirubin 4.1 MG/DL Sodium Level 128 MEQ/L Potassium Level 4.2 MEQ/L Chloride Level 95 MEQ/L Carbon Dioxide Level 24.9 MEQ/L Anion Gap 8 MEQ/L Estimat Glomerular Filtration Rate 133 ML/MIN Direct Bilirubin 3.6 MG/DL Lipase 85 U/L B-Hydroxybutyrate 0.08 MMOL/L MDM Medical Decision Making Medical Screen Exam Complete: Yes Emergency Medical Condition: Yes Differential Diagnosis Primary sclerosing cholangitis, hepatitis, urinary tract infection, Narrative Course 46-year-old female with a history of noncompliance, primary sclerosing cholangitis, and type 1 diabetes presents emergency department with diffuse abdominal pain for approximately 5 days. Patient states that she is also has some nausea with occasional nonbloody vomiting. States she has had intermittent diarrhea and constipation as well. Patient states her abdominal pain is mainly in the right upper quadrant but also extends into the left upper quadrant. Nothing improves or relieves her pain. Patient does not take any medication at home for this. Patient has not taken any medication to relieve her pain. She states this pain is similar to previous episodes. Patient has a surgical history significant for a liver biopsy and splenectomy. Denies fever but does state she has had chills. Her father states that she has had a 20 pound weight loss in the last year. Patient is a poor historian. She is unable to tell me what medications she has used for her nausea and vomiting previously. She does not follow-up with a gastrointestinal doctor or other specialist. She states that she was secondary to insurance issues and that not many gastric intestinal doctors take her insurance. CBC & BMP Diagram 06/01/17 13:40 Total Protein 6.7, Albumin 2.1 L, Calcium Level 8.4 L, Alkaline Phosphatase 1916 H, Aspartate Amino Transf (AST/SGOT) 215 H, Alanine Aminotransferase (ALT/ SGPT) 178 H, Total Bilirubin 4.1 H Last Impressions Abdomen/Pelvis CT 06/01/17 0000 Signed Impressions: Service Date/Time: Thursday, June 01, 2017 14:52 - CONCLUSION: 1. The liver remains cirrhotic in appearance. There is stable pneumobilia. 2. Nonobstructing renal calculi again noted. 3. Status post splenectomy. 4. The pancreas is not well visualized were evaluated due to lack of intravenous and oral contrast. There is apparent ductal dilatation in the tail region again noted without change. Ayan Metcalf MD 1000 cc normal saline bolus administer. Beta hydroxybutyrate normal. An additional 0.5 hydromorphone and 1000 cc normal saline administered. Patient will be admitted for abdominal pain, leukocytosis, and hyperglycemia. Patient has had similar episodes previously however, she is not had leukocytosis and combination with her abdominal pain. She is unable to have contrast with her CT abdomen and pelvis so this really limits our evaluation however, patient should be admitted for observation. After review of the EMR, it appears the patient goes to [facility] for her chronic abdominal pain. After inquiring about her visits to [facility], patient states that she went out there a couple of days ago for the same issue but did not want to wait so she left. I spoke with Dr. Whyte who is familiar with this patient from previous admissions. Patient was previously admitted for observation given pain medication, IVF, and discharged. I explained to the patient and her father that based off of all the information that I received today, patient is stable to return home. Patient is highly encouraged to follow-up with the gastrointestinal doctor. Patient will be discharged with nausea medication along with a refill of her Lantus. I gave the patient Dr. Oviedo's information on the discharge paperwork. Advised patient may return at any point for her abdominal pain will be evaluated. Diagnosis Primary Impression: Diabetes mellitus Qualified Codes: E10.8 - Type 1 diabetes mellitus with unspecified complications Additional Impressions: Hyperglycemia Leukocytosis Qualified Codes: D72.829 - Elevated white blood cell count, unspecified abdominal pain, acute and chronic Referrals: Edel Israel MD Additional Instructions: Follow-up with the gastrointestinal doctor as soon as possible. Take all medication as prescribed. Encourage healthy fluid intake with proper nutrition. If your symptoms persist or worsen return to the emergency department. Scripts Ondansetron Odt (Zofran Odt) 4 Mg Tab 4 MG SL Q8HR Y for Nausea/Vomiting for 7 Days, #21 TAB 0 Refills Prov: Sue Andrade 06/01/17 Insulin Glargine Inj (Lantus Inj) 1,000 Unit/10 Ml Vial 30 UNITS SQ HS for Blood Sugar Management for 14 Days, #1 VIAL Prov: Sue Andrade 06/01/17 Disposition: 01 DISCHARGE HOME Condition: Stable Sue Andrade Jun 01, 2017 13:26
[2017-06-01] MEDS ORDERED: ONDANSETRON HCL 4 MG/2 ML VIAL IVP ONE (13:30)
[2017-06-01] MEDS ORDERED: HYDROmorphone HCL PF 1 MG/ML VIAL IVS ONE (13:30)
[2017-06-01 13:53] LABS: AUTOMATED NEUTROPHIL # 4.7 TH/MM3 (1.8-7.7); BASOPHIL # 0.2 TH/MM3 (0-0.2); EOSINOPHIL # 0.1 TH/MM3 (0-0.4); EOSINOPHIL % 0.8 % (0.0-4.0); HEMATOCRIT 35.5 % (35.0-46.0); HEMOGLOBIN 11.2 GM/DL (11.6-15.3); LYMPH % 62.5 % (9.0-44.0); LYMPHOCYTE # 9.6 TH/MM3 (1.0-4.8); MEAN CELL VOLUME 87.7 FL (80.0-100.0); MEAN CORPUSCULAR HEMOGLOBIN 27.7 PG (27.0-34.0); MEAN CORPUSCULAR HGB CONC 31.6 % (32.0-36.0); MONOCYTE # 0.8 TH/MM3 (0-0.9); NEUT % 30.7 % (16.0-70.0); PLATELET COUNT 290 TH/MM3 (150-450); RED BLOOD COUNT 4.05 MIL/MM3 (4.00-5.30); RED CELL DISTRIBUTION WIDTH 19.2 % (11.6-17.2); WHITE BLOOD COUNT 15.3 TH/MM3 (4.0-11.0)
[2017-06-01 14:02] LABS: BILIRUBIN, URINE NEG (NEG); BLOOD, URINE NEG (NEG); GLUCOSE,URINE 1000 mg/dL (NEG); KETONE, URINE NEG (NEG); NITRITE,URINE NEG (NEG); SQUAMOUS EPITHELIAL CELL URINE 5 /hpf (0-5); URINE COLOR YELLOW (YELLW/STRAW); URINE LEUKOCYTE ESTERASE NEG (NEG)
[2017-06-01 14:23] LABS: ALBUMIN 2.1 GM/DL (3.4-5.0); ALKALINE PHOSPHATASE 1916 U/L (45-117); ALT (GPT) 178 U/L (10-53); AST (GOT) 215 U/L (15-37); BANDS 1 % (0-6); BICARBONATE 24.9 MEQ/L (21.0-32.0); BLOOD UREA NITROGEN 8 MG/DL (7-18); CALCIUM 8.4 MG/DL (8.5-10.1); CHLORIDE 95 MEQ/L (98-107); GLOMERULAR FILTRATION RATE 133 ML/MIN (>89); LIPASE 85 U/L (73-393); LYMPHOCYTES 15 % (9-44); MONOCYTES 4 % (0-8); NEUTROPHIL # MANUAL DIFF 12.4 TH/MM3 (1.8-7.7); POLYS (SEG NEUTROPHILS) 80 % (16-70); SODIUM (NA) 128 MEQ/L (136-145); TOTAL BILIRUBIN ADULT 4.1 MG/DL (0.2-1.0); TOTAL PROTEIN 6.7 GM/DL (6.4-8.2)
[2017-06-01 14:24] LABS: TARGET CELLS 2+ (NORMAL)
[2017-06-01 14:26] LABS: GLUCOSE,RANDOM 562 MG/DL (74-106)
[2017-06-01 14:47] VITALS: BP 119/77; PULSE 84; RESP 14; O2SAT 100
--- NOTE | 2017-06-01 15:07 | RADRPT ---
EXAM DATE/TIME: 06/01/2017 14:52 [facility] COMPARISON: CT ABDOMEN & PELVIS W/O CONTRAST, April 01, 2017, 19:09. INDICATIONS : Right upper abdomen pain for five days. ORAL CONTRAST: No oral contrast ingested. RADIATION DOSE: 4.52 CTDIvol (mGy) MEDICAL HISTORY : Lymphoma. SURGICAL HISTORY : Cholecystectomy. Splenectomy. ENCOUNTER: Initial ACUITY: 4 - 6 days PAIN SCALE: 7/10 LOCATION: Right upper quadrant TECHNIQUE: Volumetric scanning of the abdomen and pelvis was performed. Using automated exposure control and ad justment of the mA and/or kV according to patient size, radiation dose was kept as low as reasonably achievable to obtain optimal diagnostic quality images. DICOM format image data is available electro nically for review and comparison. FINDINGS: LOWER LUNGS: The visualized lower lungs are clear. LIVER: Liver remains cirrhotic in appearance with hypertrophy of left lobe and caudate lobe. There is atroph y of the right lobe lobular contour. Pneumobilia is again noted without significant change. There is no discrete focal mass identified on this noncontrast exam limiting sensitivity. Status post cholecys tectomy. SPLEEN: Status post splenectomy. PANCREAS: Stable appearance. The pancreas is not well delineated and evaluated. Ductal dilatation is again note d canal without change. Measures approximately 7 mm in size. No distinct mass is identified. KIDNEYS: Normal in size and shape. There is no mass or hydronephrosis. An 8mm nonobstructing left renal calcu sivakumar is again noted. There is a tiny nonobstructing right renal calculus. ADRENAL GLANDS: Within normal limits. VASCULAR: There is no aortic aneurysm. BOWEL/MESENTERY: The stomach, small bowel, and colon demonstrate no acute abnormality. There is no free intraperitone al air or fluid. ABDOMINAL WALL: Within normal limits. RETROPERITONEUM: There is no lymphadenopathy. BLADDER: No wall thickening or mass. REPRODUCTIVE: Within normal limits. INGUINAL: There is no lymphadenopathy or hernia. MUSCULOSKELETAL: Stable appearance with mild degenerative change. CONCLUSION: 1. The liver remains cirrhotic in appearance. There is stable pneumobilia. 2. Nonobstructing renal calculi again noted. 3. Status post splenectomy. 4. The pancreas is not well visualized were evaluated due to lack of intravenous and oral contrast. T here is apparent ductal dilatation in the tail region again noted without change. Ayan Metcalf MD on June 01, 2017 at 14:58 Board Certified Radiologist. This report was verified electronically.
[2017-06-01] MEDS ORDERED: HYDROmorphone HCL PF 1 MG/ML VIAL IV PUSH ONE (15:30)
[2017-06-01] MEDS ORDERED: SODIUM CHLOR 0.9% 1000 ML INJ 1,000 ML IV ONE (15:30)
[2017-06-01] MEDS ORDERED: INSULIN HUMAN REGULAR 1,000 UNITS/10 ML VIAL IV PUSH ONE (16:15)
--- NOTE | 2017-06-01 17:35 | PD ---
Physical Exam Date Seen by Provider: Jun 01, 2017 Time Seen by Provider: 16:00 Narrative I, Dr. Flores, have reviewed the advance practice practitioner's documentation and am in agreement, met with the patient face to face, made the diagnosis, and the medical decision making was done by me. *My assessment and Findings: Patient seen and evaluated with PA, please see PA note for further details. She has had history of long-standing liver disease, cholangitis, and has been in to the hospital multiple times for related issues. She apparently was recently admitted. She is here for worsening nausea, vomiting, abdominal discomfort. Laboratory Tests Test 06/01/17 13:40 06/01/17 16:15 White Blood Count 15.3 TH/MM3 (4.0-11.0) Hemoglobin 11.2 GM/DL (11.6-15.3) Mean Corpuscular Hemoglobin Concent 31.6 % (32.0-36.0) Red Cell Distribution Width 19.2 % (11.6-17.2) Mean Platelet Volume 12.0 FL (7.0-11.0) Lymphocytes (%) (Auto) 62.5 % (9.0-44.0) Lymphocytes # (Auto) 9.6 TH/MM3 (1.0-4.8) Neutrophils % (Manual) 80 % (16-70) Neutrophils # (Manual) 12.4 TH/MM3 (1.8-7.7) Platelet Morphology Comment ENLARGED (NORMAL) Target Cells 2+ (NORMAL) Urine Glucose (UA) 1000 mg/dL (NEG) Random Glucose 562 MG/DL (74-106) Albumin 2.1 GM/DL (3.4-5.0) Calcium Level 8.4 MG/DL (8.5-10.1) Alkaline Phosphatase 1916 U/L (45-117) Aspartate Amino Transf (AST/SGOT) 215 U/L (15-37) Alanine Aminotransferase (ALT/SGPT) 178 U/L (10-53) Total Bilirubin 4.1 MG/DL (0.2-1.0) Sodium Level 128 MEQ/L (136-145) Chloride Level 95 MEQ/L (98-107) Direct Bilirubin 3.6 MG/DL (0.0-0.2) Last 24 hours Impressions Abdomen/Pelvis CT 06/01/17 0000 Signed Impressions: Service Date/Time: Thursday, June 01, 2017 14:52 - CONCLUSION: 1. The liver remains cirrhotic in appearance. There is stable pneumobilia. 2. Nonobstructing renal calculi again noted. 3. Status post splenectomy. 4. The pancreas is not well visualized were evaluated due to lack of intravenous and oral contrast. There is apparent ductal dilatation in the tail region again noted without change. Ayan Metcalf MD Lab work shows significant liver enzyme elevations and she has underlying icterus and significant bilirubin elevations. However, these appear to be fairly baseline when compared to previous lab work. Her CAT scan did not show any signs of acute processes. And considering her symptoms, I was considering getting her admitted as an observation. Case is discussed with Dr. Whyte who states that she knows her well, states that this is baseline for this patient. She is post to be following up with [facility] regarding this issue. Dr. Whyte would encourage treatment of blood sugars and if she does not have any further episodes of vomiting, can be released with follow-up to [facility]. Data Data Last Documented VS Vital Signs Date Time Temp Pulse Resp B/P (MAP) Pulse Ox O2 Delivery O2 Flow Rate FiO2 06/01/17 14:47 84 14 119/77 (91) 100 Room Air 06/01/17 12:09 97.7 Orders Orders Complete Blood Count With Diff (06/01/17 13:17) Comprehensive Metabolic Panel (06/01/17 13:17) Lipase (06/01/17 13:17) Urinalysis - C+S If Indicated (06/01/17 13:17) Ondansetron Inj (Zofran Inj) (06/01/17 13:30) Sodium Chlor 0.9% 1000 Ml Inj (Ns 1000 M (06/01/17 13:17) Hydromorphone Pf Inj (Dilaudid Pf Inj) (06/01/17 13:30) Direct Bilirubin (06/01/17 13:18) Ct Abd/Pel W/O Iv Contrast (06/01/17 ) Hydromorphone Pf Inj (Dilaudid Pf Inj) (06/01/17 15:30) Sodium Chlor 0.9% 1000 Ml Inj (Ns 1000 M (06/01/17 15:30) Beta Hydroxybutyrate (Acetone) (06/01/17 15:32) Insulin Human Regular Inj (Novolin R Inj (06/01/17 16:15) Labs Laboratory Tests Test 06/01/17 13:40 06/01/17 16:15 White Blood Count 15.3 TH/MM3 Red Blood Count 4.05 MIL/MM3 Hemoglobin 11.2 GM/DL Hematocrit 35.5 % Mean Corpuscular Volume 87.7 FL Mean Corpuscular Hemoglobin 27.7 PG Mean Corpuscular Hemoglobin Concent 31.6 % Red Cell Distribution Width 19.2 % Platelet Count 290 TH/MM3 Mean Platelet Volume 12.0 FL Neutrophils (%) (Auto) 30.7 % Lymphocytes (%) (Auto) 62.5 % Monocytes (%) (Auto) 5.0 % Eosinophils (%) (Auto) 0.8 % Basophils (%) (Auto) 1.0 % Neutrophils # (Auto) 4.7 TH/MM3 Lymphocytes # (Auto) 9.6 TH/MM3 Monocytes # (Auto) 0.8 TH/MM3 Eosinophils # (Auto) 0.1 TH/MM3 Basophils # (Auto) 0.2 TH/MM3 CBC Comment AUTO DIFF Differential Total Cells Counted 100 Neutrophils % (Manual) 80 % Band Neutrophils % 1 % Lymphocytes % 15 % Monocytes % 4 % Neutrophils # (Manual) 12.4 TH/MM3 Differential Comment FINAL DIFF MANUAL Platelet Estimate NORMAL Platelet Morphology Comment ENLARGED Target Cells 2+ Urine Color YELLOW Urine Turbidity CLEAR Urine pH 7.0 Urine Specific [place] 1.028 Urine Protein NEG mg/dL Urine Glucose (UA) 1000 mg/dL Urine Ketones NEG mg/dL Urine Occult Blood NEG Urine Nitrite NEG Urine Bilirubin NEG Urine Urobilinogen LESS THAN 2.0 MG/DL Urine Leukocyte Esterase NEG Urine RBC 1 /hpf Urine WBC 1 /hpf Urine Squamous Epithelial Cells 5 /hpf Microscopic Urinalysis Comment CULT NOT INDICATED Blood Urea Nitrogen 8 MG/DL Creatinine 0.50 MG/DL Random Glucose 562 MG/DL Total Protein 6.7 GM/DL Albumin 2.1 GM/DL Calcium Level 8.4 MG/DL Alkaline Phosphatase 1916 U/L Aspartate Amino Transf (AST/SGOT) 215 U/L Alanine Aminotransferase (ALT/SGPT) 178 U/L Total Bilirubin 4.1 MG/DL Sodium Level 128 MEQ/L Potassium Level 4.2 MEQ/L Chloride Level 95 MEQ/L Carbon Dioxide Level 24.9 MEQ/L Anion Gap 8 MEQ/L Estimat Glomerular Filtration Rate 133 ML/MIN Direct Bilirubin 3.6 MG/DL Lipase 85 U/L B-Hydroxybutyrate 0.08 MMOL/L [facility] Medical Record Reviewed: Yes Supervised Visit with MYRON: Yes Diagnosis Primary Impression: Diabetes mellitus Qualified Codes: E10.8 - Type 1 diabetes mellitus with unspecified complications Additional Impressions: Hyperglycemia Leukocytosis Qualified Codes: D72.829 - Elevated white blood cell count, unspecified abdominal pain, acute and chronic Disposition: 01 DISCHARGE HOME Condition: Stable Franky Flores MD Jun 01, 2017 17:35
[2017-06-01] MEDS ORDERED: ZOFR4TAB3 SL (17:36)
[2017-06-01] MEDS ORDERED: LANTUS2P SQ (17:36)
== END 2017-06-01 18:27 | disposition home or self-care (01) ==
LOC: NEPE 12:07
DX: E10.65 Type 1 diabetes mellitus with hyperglycemia (principal); D72.829 Elevated white blood cell count, unspecified; K74.60 Unspecified cirrhosis of liver; K83.0 Cholangitis; K76.89 Other specified diseases of liver; N20.0 Calculus of kidney; R19.7 Diarrhea, unspecified; K59.00 Constipation, unspecified; Z87.442 Personal history of urinary calculi
CPT/HCPCS: 74176; 80053; 81001; 82010; 82248; 83690; 85007; 85027; 96361; 96374; 96375; 96376; 99285; J1170; J1815; J2405; J7030

== ENCOUNTER 2017-06-03 15:22 | Emergency (ER) | payer OTHER ==
[~2017-06-03] VITALS: Ht 162.6 cm; Wt 45.9 kg
[2017-06-03 15:24] VITALS: BP 126/76; PULSE 96; RESP 16; TEMP 98.6; O2SAT 99
[2017-06-03 16:42] LABS: HEMATOCRIT 35.8 % (35.0-46.0); HEMOGLOBIN 11.4 GM/DL (11.6-15.3); MEAN CELL VOLUME 87.2 FL (80.0-100.0); MEAN CORPUSCULAR HEMOGLOBIN 27.8 PG (27.0-34.0); MEAN CORPUSCULAR HGB CONC 31.8 % (32.0-36.0); PLATELET COUNT 291 TH/MM3 (150-450); RED CELL DISTRIBUTION WIDTH 18.5 % (11.6-17.2); WHITE BLOOD COUNT 9.1 TH/MM3 (4.0-11.0)
--- NOTE | 2017-06-03 16:52 | PD ---
HPI Chief Complaint: Abdominal Pain Time Seen by Provider: 16:08 Travel History International Travel<30 days: No Contact w/Intl Traveler<30days: No Traveled to known affect area: No History of Present Illness HPI This is a 46-year-old female who has a history of primary sclerosing cholangitis with repeated strictures who presents to the emergency department with 1 week of worsening jaundice. She says her skin is been yellowing, constant, associated with itching and some increasing sharp right upper quadrant abdominal pain. She denies any fevers or chills. She is followed by Dr. Plummer at [facility] and last saw them in April. She is currently being evaluated for a liver transplant. The patient was seen in the emergency department 2 evenings ago for similar symptoms. She says her liver function tests were trending upward and she spoke to her software support specialist today who told her to come back to the emergency department. PFSH Past Medical History Arthritis: No Asthma: No Autoimmune Disease: No Blood Disorders: No Anxiety: No Depression: No Heart Rhythm Problems: No Cancer: Yes (HX NON HODGKINS LYMPHOMA) Cardiovascular Problems: No High Cholesterol: No Chemotherapy: Yes (HX) Chest Pain: No Congestive Heart Failure: No Cirrhosis: Yes COPD: No Cerebrovascular Accident: No Diabetes: Yes Patient Takes Glucophage: No Diminished Hearing: No Endocrine: No Gastrointestinal Disorders: Yes (sclerosing cholangitis) GERD: No Genitourinary: No Headaches: No Hepatitis: No Hiatal Hernia: No Heparin Induced Thrombocytopen: No Hypertension: No Immune Disorder: No Implanted Vascular Access Dvce: Yes Kidney Stones: Yes Medical other: Yes (HX OF ENLARGED SPLEEN, SPLENECTOMY 2004) Musculoskeletal: No Neurologic: No Psychiatric: No Reproductive: No Respiratory: No Immunizations Current: No Migraines: No Radiation Therapy: No Renal Failure: No Seizures: No Sickle Cell Disease: No Sleep Apnea: No Thyroid Disease: No Ulcer: Yes ?: Not Menopausal: Yes : 2 Para: 2 Miscarriage: 0 : 0 Past Surgical History Abdominal Surgery: Yes (splenectomy, liver biopsy) AICD: No Arteriovenous Shunt: No Body Medical Devices: BILIARY DRAIN Cardiac Surgery: No Cholecystectomy: Yes Ear Surgery: No Endocrine Surgery: No Eye Surgery: No Genitourinary Surgery: No Gynecologic Surgery: No Insulin Pump: No Joint Replacement: No Neurologic Surgery: No Oral Surgery: No Pacemaker: No Thoracic Surgery: No Other Surgery: Yes (BILIARY DRAIN PLACED, LIVER BIOPSY, biliary stents) Social History Alcohol Use: No Tobacco Use: No Substance Use: No Allergies-Medications (Allergen,Severity, Reaction): Coded Allergies: Gadolinium-Containing Contrast Medi (Verified Allergy, Severe, 06/03/17) fentanyl (Verified Allergy, Severe, SOB, 06/03/17) gadobenic acid (Verified Allergy, Severe, BREATHING PROBLEMS, N/V,CHILLS, 06/03/17) gadodiamide (Verified Allergy, Severe, BREATHING PROBLEMS, N/V,CHILLS, ) gadoteridol (Verified Allergy, Severe, BREATHING PROBLEMS, N/V,CHILLS, ) ketorolac (Verified Allergy, Severe, Shortness of Breath, 06/03/17) morphine (Verified Allergy, Severe, BREATHING PROBLEMS, 06/03/17) tramadol (Verified Allergy, Mild, Shortness of Breath, 06/03/17) MRI PRECAUTION (Verified Adverse Reaction, Severe, NAUSEA; PER PATIENT IT IS A GADOLINIUM ALLERGY KMD 11/25/12, 06/03/17) Reported Meds & Prescriptions Reported Meds & Active Scripts Active Zofran Odt (Ondansetron Odt) 4 Mg Tab 4 Mg SL Q8HR PRN 7 Days Lantus Inj (Insulin Glargine) 1,000 Unit/10 Ml Vial 30 Units SQ HS 14 Days Reported Humalog Inj (Insulin Human Lispro) 1,000 Unit/10 Ml Vial 8 Units SQ TID Max dose at bedtime:( )units; sugars< 70,(0)units; sugars 150-199,(1)unit; sugars 200-249,(3)units; sugars 250-299,(5)units; sugars 300-349,(7)units; sugars more than 349,(9)units. Lantus Inj (Insulin Glargine) 1,000 Unit/10 Ml Vial 30 Units SQ HS Review of Systems Except as stated in HPI: all other systems reviewed are Neg Physical Exam Narrative GENERAL:cachectic, chronically ill appearing SKIN: jaundiced HEAD: Atraumatic. Normocephalic. EYES: Pupils equal and round. No injection or drainage. scleral icterus. ENT: Moist mucous membranes NECK: Trachea midline. CARDIOVASCULAR: Regular rate and rhythm. No murmur appreciated. RESPIRATORY: Clear to auscultation. Breath sounds equal bilaterally. GASTROINTESTINAL: Abdomen soft, tender to palpation to the right upper quadrant with no rebound/guarding. MUSCULOSKELETAL: No obvious deformities. NEUROLOGICAL: Awake and alert. No obvious cranial nerve deficits. Moving all extremities PSYCHIATRIC: Appropriate mood and affect; insight and judgment normal. Data Data Last Documented VS Vital Signs Date Time Temp Pulse Resp B/P (MAP) Pulse Ox O2 Delivery O2 Flow Rate FiO2 06/03/17 15:24 98.6 96 16 126/76 (93) 99 Orders Orders Complete Blood Count With Diff (06/03/17 16:18) Comprehensive Metabolic Panel (06/03/17 16:18) ^ Insert Iv (06/03/17 16:18) Lipase (06/03/17 16:18) Labs Laboratory Tests Test 06/03/17 16:26 [facility] Medical Decision Making Medical Screen Exam Complete: Yes Emergency Medical Condition: Yes Differential Diagnosis Cholangitis, urinary tract infection, sepsis, electrolyte abnormality, dehydration Narrative Course This is a 46-year-old female who has a history of primary sclerosing cholangitis who presents to the emergency department with increasing jaundice. She also says she's had increasing abdominal pain. She is followed at [facility] by Dr. Plummer. Her total bilirubin is elevated from prior on her labs from 2 days ago and she did have a leukocytosis. I think it's reasonable to recheck labs today. If they're trending worse she may require admission for imminent cholangitis as the patient has had septic shock in the past due to biliary obstruction. Patient will be dispositioned by oncoming provider. Vivian Fortune MD Jun 03, 2017 16:52
[2017-06-03 17:14] LABS: ALKALINE PHOSPHATASE 2009 U/L (45-117); ALT (GPT) 183 U/L (10-53); AST (GOT) 216 U/L (15-37); BICARBONATE 23.1 MEQ/L (21.0-32.0); BLOOD UREA NITROGEN 9 MG/DL (7-18); CALCIUM 8.3 MG/DL (8.5-10.1); CHLORIDE 99 MEQ/L (98-107); GLOMERULAR FILTRATION RATE 133 ML/MIN (>89); LIPASE 73 U/L (73-393); SODIUM (NA) 130 MEQ/L (136-145); TOTAL BILIRUBIN ADULT 4.1 MG/DL (0.2-1.0); TOTAL PROTEIN 6.6 GM/DL (6.4-8.2)
[2017-06-03 17:18] LABS: GLUCOSE,RANDOM 455 MG/DL (74-106)
[2017-06-03 17:38] LABS: BANDS 6 % (0-6); LYMPHOCYTES 15 % (9-44); MONOCYTES 7 % (0-8); NEUTROPHIL # MANUAL DIFF 7.1 TH/MM3 (1.8-7.7); POLYS (SEG NEUTROPHILS) 72 % (16-70); TARGET CELLS 2+ (NORMAL)
--- NOTE | 2017-06-03 18:03 | PD ---
Physical Exam Narrative Patient was seen by ED physician and signed out to me. Data Data Last Documented VS Vital Signs Date Time Temp Pulse Resp B/P (MAP) Pulse Ox O2 Delivery O2 Flow Rate FiO2 06/03/17 15:24 98.6 96 16 126/76 (93) 99 Orders Orders Complete Blood Count With Diff (06/03/17 16:18) Comprehensive Metabolic Panel (06/03/17 16:18) ^ Insert Iv (06/03/17 16:18) Lipase (06/03/17 16:18) Labs Laboratory Tests Test 06/03/17 16:26 White Blood Count 9.1 TH/MM3 Red Blood Count 4.10 MIL/MM3 Hemoglobin 11.4 GM/DL Hematocrit 35.8 % Mean Corpuscular Volume 87.2 FL Mean Corpuscular Hemoglobin 27.8 PG Mean Corpuscular Hemoglobin Concent 31.8 % Red Cell Distribution Width 18.5 % Platelet Count 291 TH/MM3 Mean Platelet Volume 11.0 FL CBC Comment AUTO DIFF Differential Total Cells Counted 100 Neutrophils % (Manual) 72 % Band Neutrophils % 6 % Lymphocytes % 15 % Monocytes % 7 % Neutrophils # (Manual) 7.1 TH/MM3 Differential Comment FINAL DIFF MANUAL Platelet Estimate NORMAL Platelet Morphology Comment ENLARGED Target Cells 2+ Blood Urea Nitrogen 9 MG/DL Creatinine 0.50 MG/DL Random Glucose 455 MG/DL Total Protein 6.6 GM/DL Albumin 2.0 GM/DL Calcium Level 8.3 MG/DL Alkaline Phosphatase 2009 U/L Aspartate Amino Transf (AST/SGOT) 216 U/L Alanine Aminotransferase (ALT/SGPT) 183 U/L Total Bilirubin 4.1 MG/DL Sodium Level 130 MEQ/L Potassium Level 4.0 MEQ/L Chloride Level 99 MEQ/L Carbon Dioxide Level 23.1 MEQ/L Anion Gap 8 MEQ/L Estimat Glomerular Filtration Rate 133 ML/MIN Lipase 73 U/L [facility] Supervised Visit with MYRON: No Interpretation(s) 1753 PM. CBC WBC 9.1. Hemoglobin 11.4 hematocrit 35.8. 72 neutrophil. Sodium 1:30. Bicarbonate 23.1. Glucose 455. Calcium 8.3. AST 216. ALT 183. Alkaline phosphatase 2008. Narrative Course Patient was seen and examined by ED physician and signed out to me. History of chronic abdominal pain from primary sclerosing cholangitis and repeated strictures. Patient has increasing jaundice and persistent right upper quadrant abdominal pain. Patient has been seen by physician at [facility]. Patient's awaiting liver transplant. Blood test including CBC and CMP done today and patient's at baseline. Total bili has not change much. Patient has elevated blood glucose. Patient will be given insulin subcutaneous injection and discharged for follow-up with local physician. Novolin R, 5 units IV given. Diagnosis Primary Impression: PSC (primary sclerosing cholangitis) Additional Impressions: Abdominal pain, non-surgical Hyperglycemia Patient Instructions: General Instructions Additional Instruction: Accu-Chek blood sugar daily. Follow-up with personal physician. Follow-up with [facility] for liver problem and abdominal pain. Return if worse. Med/Other Pt SpecificInfo: No Change to Meds Disposition: 01 DISCHARGE HOME Condition: Stable Pete Kirk MD Jun 03, 2017 18:03
[2017-06-03] MEDS ORDERED: INSULIN HUMAN REGULAR 1,000 UNITS/10 ML VIAL IV PUSH ONE (18:15)
== END 2017-06-03 18:28 | disposition home or self-care (01) ==
LOC: NEPD 15:22
DX: K83.0 Cholangitis (principal); R10.9 Unspecified abdominal pain; E11.65 Type 2 diabetes mellitus with hyperglycemia
CPT/HCPCS: 80053; 83690; 85007; 85027; 96374; 99284; J1815

== ENCOUNTER 2017-06-06 13:04 | Emergency (ER) | payer OTHER ==
[~2017-06-06] VITALS: Ht 162.6 cm; Wt 46.0 kg
[~2017-06-06 13:04] MED LIST changes: -HYDR2TAB PO
[2017-06-06 13:06] VITALS: BP 123/83; PULSE 108; RESP 18; O2SAT 98
[2017-06-06 15:12] LABS: BILIRUBIN, URINE NEG (NEG); BLOOD, URINE NEG (NEG); GLUCOSE,URINE 1000 mg/dL (NEG); KETONE, URINE NEG (NEG); NITRITE,URINE NEG (NEG); SQUAMOUS EPITHELIAL CELL URINE 1 /hpf (0-5); URINE COLOR YELLOW (YELLW/STRAW); URINE LEUKOCYTE ESTERASE NEG (NEG)
[2017-06-06] MEDS ORDERED: ONDANSETRON HCL 4 MG/2 ML VIAL IV PUSH ONE (15:45)
[2017-06-06] MEDS ORDERED: MORPHINE SULFATE 2 MG/ML INJ IV PUSH ONE ×2 (15:45→18:00)
--- NOTE | 2017-06-06 15:45 | PD ---
HPI Chief Complaint: Abdominal Pain Time Seen by Provider: 15:38 Travel History International Travel<30 days: No Contact w/Intl Traveler<30days: No Traveled to known affect area: No History of Present Illness HPI Patient has a 46-year-old female presents the emergency department for evaluation of right upper quadrant abdominal pain. She weighs here a few days ago with similar complaints, has a history of sclerosing cholangitis in his on the liver transplant list at [facility]. She had blood work then because she noticed that she with increased jaundice, it showed that she was not hyperglycemic, she is concerned because can continues to be jaundiced has been hurting in her abdomen for 2 weeks. She denies any chest pain shortness of breath easy bruising or bleeding. Mild nausea without vomiting no diarrhea no blood in the stool no blood in emesis she states she has not tried anything for pain prior to arrival. She has not followed up with her doctors at [facility] since this pain started 2 weeks ago. States symptoms are moderate, constant, context as above, associated signs symptoms as above PFSH Past Medical History Arthritis: No Asthma: No Autoimmune Disease: No Blood Disorders: No Anxiety: No Depression: No Heart Rhythm Problems: No Cancer: Yes (HX NON HODGKINS LYMPHOMA) Cardiovascular Problems: No High Cholesterol: No Chemotherapy: Yes (HX) Chest Pain: No Congestive Heart Failure: No Cirrhosis: Yes COPD: No Cerebrovascular Accident: No Diabetes: Yes Patient Takes Glucophage: No Diminished Hearing: No Endocrine: No Gastrointestinal Disorders: Yes (sclerosing cholangitis) GERD: No Genitourinary: No Headaches: No Hepatitis: No Hiatal Hernia: No Heparin Induced Thrombocytopen: No Hypertension: No Immune Disorder: No Implanted Vascular Access Dvce: Yes Kidney Stones: Yes Medical other: Yes (HX OF ENLARGED SPLEEN, SPLENECTOMY 2004) Musculoskeletal: No Neurologic: No Psychiatric: No Reproductive: No Respiratory: No Immunizations Current: No Migraines: No Radiation Therapy: No Renal Failure: No Seizures: No Sickle Cell Disease: No Sleep Apnea: No Thyroid Disease: No Ulcer: Yes Tetanus Vaccination: < 5 Years Influenza Vaccination: Yes ?: Not Menopausal: Yes : 2 Para: 2 Miscarriage: 0 : 0 Past Surgical History Abdominal Surgery: Yes (splenectomy, liver biopsy) AICD: No Arteriovenous Shunt: No Body Medical Devices: BILIARY DRAIN Cardiac Surgery: No Cholecystectomy: Yes Ear Surgery: No Endocrine Surgery: No Eye Surgery: No Genitourinary Surgery: No Gynecologic Surgery: No Insulin Pump: No Joint Replacement: No Neurologic Surgery: No Oral Surgery: No Pacemaker: No Thoracic Surgery: No Other Surgery: Yes (BILIARY DRAIN PLACED, LIVER BIOPSY, biliary stents) Social History Alcohol Use: No Tobacco Use: No Substance Use: No Allergies-Medications (Allergen,Severity, Reaction): Coded Allergies: Gadolinium-Containing Contrast Medi (Verified Allergy, Severe, 06/06/17) fentanyl (Verified Allergy, Severe, SOB, 06/06/17) gadobenic acid (Verified Allergy, Severe, BREATHING PROBLEMS, N/V,CHILLS, 06/06/17) gadodiamide (Verified Allergy, Severe, BREATHING PROBLEMS, N/V,CHILLS, ) gadoteridol (Verified Allergy, Severe, BREATHING PROBLEMS, N/V,CHILLS, ) ketorolac (Verified Allergy, Severe, Shortness of Breath, 06/06/17) tramadol (Verified Allergy, Mild, Shortness of Breath, 06/06/17) MRI PRECAUTION (Verified Adverse Reaction, Severe, NAUSEA; PER PATIENT IT IS A GADOLINIUM ALLERGY KMD 11/25/12, 06/06/17) Reported Meds & Prescriptions Reported Meds & Active Scripts Active Reported Humalog Inj (Insulin Human Lispro) 1,000 Unit/10 Ml Vial 8 Units SQ TID Max dose at bedtime:( )units; sugars< 70,(0)units; sugars 150-199,(1)unit; sugars 200-249,(3)units; sugars 250-299,(5)units; sugars 300-349,(7)units; sugars more than 349,(9)units. Lantus Inj (Insulin Glargine) 1,000 Unit/10 Ml Vial 30 Units SQ HS Review of Systems Except as stated in HPI: all other systems reviewed are Neg Physical Exam Narrative GENERAL: Well-developed thin female, no obvious distress. Ambulates with an even narrow-base gait. SKIN: Focused skin assessment warm/dry. HEAD: Atraumatic. Normocephalic. EYES: Pupils equal and round. No scleral icterus. No injection or drainage. ENT: No nasal bleeding or discharge. Mucous membranes pink and moist. NECK: Trachea midline. No JVD. CARDIOVASCULAR: Regular rate and rhythm. No murmur appreciated. RESPIRATORY: No accessory muscle use. Clear to auscultation. Breath sounds equal bilaterally. GASTROINTESTINAL: Abdomen soft, non-tender, nondistended. Massive hepatomegaly , no splenomegaly appreciated, there are some dilated veins on the abdominal skin consistent with portal hypertension. No rebound no percussive tenderness, Raygoza's sign negative. MUSCULOSKELETAL: No obvious deformities. No clubbing. No cyanosis. No edema. NEUROLOGICAL: Awake and alert. No obvious cranial nerve deficits. Motor grossly within normal limits. Normal speech. PSYCHIATRIC: Appropriate mood and affect; insight and judgment normal. Data Data Last Documented VS Vital Signs Date Time Temp Pulse Resp B/P (MAP) Pulse Ox O2 Delivery O2 Flow Rate FiO2 06/06/17 19:27 06/06/17 17:54 99 20 97 Room Air Orders Orders Complete Blood Count With Diff (06/06/17 13:12) Comprehensive Metabolic Panel (06/06/17 13:12) Lipase (06/06/17 13:12) Prothrombin Time / Inr (Pt) (06/06/17 13:12) Act Partial Throm Time (Ptt) (06/06/17 13:12) Urinalysis - C+S If Indicated (06/06/17 13:12) Morphine Inj (Morphine Inj) (06/06/17 15:45) Ondansetron Inj (Zofran Inj) (06/06/17 15:45) Morphine Inj (Morphine Inj) (06/06/17 18:00) Ed Discharge Order (06/06/17 19:02) Labs Laboratory Tests Test 06/06/17 13:53 06/06/17 16:00 06/06/17 17:15 Urine Color YELLOW Urine Turbidity CLEAR Urine pH 6.0 Urine Specific [place] 1.034 Urine Protein NEG mg/dL Urine Glucose (UA) 1000 mg/dL Urine Ketones NEG mg/dL Urine Occult Blood NEG Urine Nitrite NEG Urine Bilirubin NEG Urine Urobilinogen LESS THAN 2.0 MG/DL Urine Leukocyte Esterase NEG Urine RBC 2 /hpf Urine WBC 1 /hpf Urine Squamous Epithelial Cells 1 /hpf Microscopic Urinalysis Comment CULT NOT INDICATED White Blood Count 10.5 TH/MM3 Red Blood Count 4.30 MIL/MM3 Hemoglobin 11.9 GM/DL Hematocrit 37.6 % Mean Corpuscular Volume 87.5 FL Mean Corpuscular Hemoglobin 27.6 PG Mean Corpuscular Hemoglobin Concent 31.6 % Red Cell Distribution Width 18.5 % Platelet Count 303 TH/MM3 Mean Platelet Volume 11.9 FL CBC Comment AUTO DIFF Differential Total Cells Counted 100 Neutrophils % (Manual) 76 % Band Neutrophils % 2 % Lymphocytes % 13 % Monocytes % 9 % Neutrophils # (Manual) 8.2 TH/MM3 Differential Comment FINAL DIFF MANUAL Platelet Estimate NORMAL Platelet Morphology Comment NORMAL Target Cells 2+ Stomatocytes 1+ Prothrombin Time 9.6 SEC Prothromb Time International Ratio 0.9 RATIO Activated Partial Thromboplast Time 24.7 SEC Blood Urea Nitrogen 8 MG/DL Creatinine 0.39 MG/DL Random Glucose 367 MG/DL Total Protein 6.6 GM/DL Albumin 2.0 GM/DL Calcium Level 8.4 MG/DL Alkaline Phosphatase 2155 U/L Aspartate Amino Transf (AST/SGOT) 231 U/L Alanine Aminotransferase (ALT/SGPT) 182 U/L Total Bilirubin 4.0 MG/DL Sodium Level 132 MEQ/L Potassium Level 4.0 MEQ/L Chloride Level 99 MEQ/L Carbon Dioxide Level 24.1 MEQ/L Anion Gap 9 MEQ/L Estimat Glomerular Filtration Rate 177 ML/MIN Lipase 89 U/L [facility] Medical Decision Making Medical Screen Exam Complete: Yes Emergency Medical Condition: Yes Differential Diagnosis Chronic abdominal pain, diabetes, hyperglycemia, chronic abdominal pain, sclerosing cholangitis. Highly doubt DKA. Narrative Course Patient room to the emergency department, morphine Zofran given, review of the records show that a few days ago the patient had a CT abdomen at this facility showing no acute intra-abdominal process: CONCLUSION: 1. The liver remains cirrhotic in appearance. There is stable pneumobilia. 2. Nonobstructing renal calculi again noted. 3. Status post splenectomy. 4. The pancreas is not well visualized were evaluated due to lack of intravenous and oral contrast. There is apparent ductal dilatation in the tail region again noted without change. Patient CBC as unremarkable, chemistry has called several times requesting repeat draws. At the end of my shift at 1700 the patient with discussed with Dr. Naresh Almanza To follow-up the lives in disposition the patient appropriately. My impression of this patient should probably at her baseline bilirubin levels and baseline abdominal pain. She unfortunately does need a liver transplant according to her history. Likely her symptoms do not represent a medical emergency. Tunde Moses MD Jun 06, 2017 15:45
[2017-06-06 16:25] LABS: HEMATOCRIT 37.6 % (35.0-46.0); HEMOGLOBIN 11.9 GM/DL (11.6-15.3); MEAN CELL VOLUME 87.5 FL (80.0-100.0); MEAN CORPUSCULAR HEMOGLOBIN 27.6 PG (27.0-34.0); MEAN CORPUSCULAR HGB CONC 31.6 % (32.0-36.0); MEAN PLATELET VOLUME 11.9 FL (7.0-11.0); PLATELET COUNT 303 TH/MM3 (150-450); RED CELL DISTRIBUTION WIDTH 18.5 % (11.6-17.2); WHITE BLOOD COUNT 10.5 TH/MM3 (4.0-11.0)
[2017-06-06 16:26] LABS: INTERNATIONAL NORMALIZED RATIO 0.9 RATIO; PROTHROMBIN TIME - PATIENT 9.6 SEC (9.8-11.6)
[2017-06-06 17:09] LABS: BANDS 2 % (0-6); LYMPHOCYTES 13 % (9-44); MONOCYTES 9 % (0-8); NEUTROPHIL # MANUAL DIFF 8.2 TH/MM3 (1.8-7.7); POLYS (SEG NEUTROPHILS) 76 % (16-70)
[2017-06-06 17:10] LABS: STOMATOCYTES 1+ (NORMAL); TARGET CELLS 2+ (NORMAL)
[2017-06-06 17:54] VITALS: BP 126/79; PULSE 99; RESP 20; O2SAT 97
[2017-06-06 18:33] LABS: ALT (GPT) 182 U/L (10-53); AST (GOT) 231 U/L (15-37); BICARBONATE 24.1 MEQ/L (21.0-32.0); BLOOD UREA NITROGEN 8 MG/DL (7-18); CALCIUM 8.4 MG/DL (8.5-10.1); CHLORIDE 99 MEQ/L (98-107); CREATININE 0.39 MG/DL (0.50-1.00); GLOMERULAR FILTRATION RATE 177 ML/MIN (>89); GLUCOSE,RANDOM 367 MG/DL (74-106); LIPASE 89 U/L (73-393); SODIUM (NA) 132 MEQ/L (136-145)
[2017-06-06 18:43] LABS: ALKALINE PHOSPHATASE 2155 U/L (45-117); TOTAL PROTEIN 6.6 GM/DL (6.4-8.2)
--- NOTE | 2017-06-06 18:57 | PD ---
Data Data Last Documented VS Vital Signs Date Time Temp Pulse Resp B/P (MAP) Pulse Ox O2 Delivery O2 Flow Rate FiO2 06/06/17 17:54 99 20 126/79 (95) 97 Room Air Orders Orders Complete Blood Count With Diff (06/06/17 13:12) Comprehensive Metabolic Panel (06/06/17 13:12) Lipase (06/06/17 13:12) Prothrombin Time / Inr (Pt) (06/06/17 13:12) Act Partial Throm Time (Ptt) (06/06/17 13:12) Urinalysis - C+S If Indicated (06/06/17 13:12) Morphine Inj (Morphine Inj) (06/06/17 15:45) Ondansetron Inj (Zofran Inj) (06/06/17 15:45) Type And Screen (06/06/17 16:15) Morphine Inj (Morphine Inj) (06/06/17 18:00) Labs Laboratory Tests Test 06/06/17 13:53 06/06/17 16:00 06/06/17 17:15 Urine Color YELLOW Urine Turbidity CLEAR Urine pH 6.0 Urine Specific [place] 1.034 Urine Protein NEG mg/dL Urine Glucose (UA) 1000 mg/dL Urine Ketones NEG mg/dL Urine Occult Blood NEG Urine Nitrite NEG Urine Bilirubin NEG Urine Urobilinogen LESS THAN 2.0 MG/DL Urine Leukocyte Esterase NEG Urine RBC 2 /hpf Urine WBC 1 /hpf Urine Squamous Epithelial Cells 1 /hpf Microscopic Urinalysis Comment CULT NOT INDICATED White Blood Count 10.5 TH/MM3 Red Blood Count 4.30 MIL/MM3 Hemoglobin 11.9 GM/DL Hematocrit 37.6 % Mean Corpuscular Volume 87.5 FL Mean Corpuscular Hemoglobin 27.6 PG Mean Corpuscular Hemoglobin Concent 31.6 % Red Cell Distribution Width 18.5 % Platelet Count 303 TH/MM3 Mean Platelet Volume 11.9 FL CBC Comment AUTO DIFF Differential Total Cells Counted 100 Neutrophils % (Manual) 76 % Band Neutrophils % 2 % Lymphocytes % 13 % Monocytes % 9 % Neutrophils # (Manual) 8.2 TH/MM3 Differential Comment FINAL DIFF MANUAL Platelet Estimate NORMAL Platelet Morphology Comment NORMAL Target Cells 2+ Stomatocytes 1+ Prothrombin Time 9.6 SEC Prothromb Time International Ratio 0.9 RATIO Activated Partial Thromboplast Time 24.7 SEC Blood Urea Nitrogen 8 MG/DL Creatinine 0.39 MG/DL Random Glucose 367 MG/DL Total Protein 6.6 GM/DL Albumin 2.0 GM/DL Calcium Level 8.4 MG/DL Alkaline Phosphatase 2155 U/L Aspartate Amino Transf (AST/SGOT) 231 U/L Alanine Aminotransferase (ALT/SGPT) 182 U/L Total Bilirubin 4.0 MG/DL Sodium Level 132 MEQ/L Potassium Level 4.0 MEQ/L Chloride Level 99 MEQ/L Carbon Dioxide Level 24.1 MEQ/L Anion Gap 9 MEQ/L Estimat Glomerular Filtration Rate 177 ML/MIN Lipase 89 U/L MDM Supervised Visit with MYRON: No Narrative Course The patient was initially evaluated by the previous provider and sent out to me at the beginning of my shift pending labs and disposition. See his note for further details. Briefly this is a 46 old female with history of primary sclerosing cholangitis who is currently on the liver transplant list at [facility], here for evaluation because she believes she is having increasing jaundice. She also has chronic abdominal pain which is no worse than usual. She had a CT abdomen pelvis performed one week ago that showed several chronic changes without acute pathology. An exam she is very comfortable and there are no peritoneal signs. CBC is essentially unremarkable. CMP is remarkable for random glucose 367, T bili 4, AST 231, ALT 182, alkaline phosphatase 2155. All of these values are around her baseline. The patient was given 2 doses of morphine with improvement in symptoms. She does not want me to prescribe anything for pain. At this point she is stable for discharge home with outpatient follow-up with her doctors at [facility]. She was advised on when to return to the emergency department pitcher verbalizes understanding and agreement with plan. Diagnosis Primary Impression: abdominal pain, acute and chronic Referrals: Primary Care Physician 3 days Additional Instruction: Follow-up with all of your physicians at [facility] this week. Return to the emergency department for worsening symptoms or any other concerns. Disposition: 01 DISCHARGE HOME Condition: Stable Naresh Almanza MD Jun 06, 2017 18:57
== END 2017-06-06 19:28 | disposition home or self-care (01) ==
LOC: NEPD 13:04
DX: R10.11 Right upper quadrant pain (principal); N20.0 Calculus of kidney; K83.0 Cholangitis; K74.60 Unspecified cirrhosis of liver; E11.9 Type 2 diabetes mellitus without complications; Z79.4 Long term (current) use of insulin; Z76.82 Awaiting organ transplant status; Z90.81 Acquired absence of spleen
CPT/HCPCS: 80053; 81001; 83690; 85007; 85027; 85610; 85730; 96374; 96375; 96376; 99284; J2270; J2405

== ENCOUNTER 2017-06-26 14:26 | Emergency (ER) | payer OTHER ==
[~2017-06-26] VITALS: Ht 162.6 cm; Wt 48.0 kg
[~2017-06-26 14:26] MED LIST changes: -ZOFR4TAB3 SL
[2017-06-26 14:27] VITALS: BP 126/82; PULSE 87; RESP 18; TEMP 97.6; O2SAT 99
[2017-06-26 16:02] LABS: BILIRUBIN, URINE NEG (NEG); BLOOD, URINE NEG (NEG); GLUCOSE,URINE 1000 mg/dL (NEG); KETONE, URINE NEG (NEG); NITRITE,URINE NEG (NEG); PH, URINE 6.5 (5.0-8.5); SQUAMOUS EPITHELIAL CELL URINE <1 /hpf (0-5); URINE COLOR YELLOW (YELLW/STRAW); URINE LEUKOCYTE ESTERASE NEG (NEG)
[2017-06-26 16:03] LABS: INTERNATIONAL NORMALIZED RATIO 0.9 RATIO; PROTHROMBIN TIME - PATIENT 9.4 SEC (9.8-11.6)
[2017-06-26 16:12] LABS: ALBUMIN 2.2 GM/DL (3.4-5.0); ALT (GPT) 212 U/L (10-53); AST (GOT) 276 U/L (15-37); BICARBONATE 25.1 MEQ/L (21.0-32.0); BLOOD UREA NITROGEN 6 MG/DL (7-18); CALCIUM 8.5 MG/DL (8.5-10.1); CHLORIDE 98 MEQ/L (98-107); CREATININE 0.72 MG/DL (0.50-1.00); GLOMERULAR FILTRATION RATE 87 ML/MIN (>89); SODIUM (NA) 131 MEQ/L (136-145)
[2017-06-26 16:18] LABS: GLUCOSE,RANDOM 496 MG/DL (74-106)
[2017-06-26 16:40] LABS: ALKALINE PHOSPHATASE 2216 U/L (45-117); TOTAL BILIRUBIN ADULT 3.7 MG/DL (0.2-1.0); TOTAL PROTEIN 7.5 GM/DL (6.4-8.2)
[2017-06-26] MEDS ORDERED: INSU100C SQ (17:59)
[2017-06-26] MEDS ORDERED: LANTUS2P SQ (17:59)
[2017-06-26] MEDS ORDERED: ONDANSETRON HCL 4 MG/2 ML VIAL IV PUSH ONE (18:00)
[2017-06-26] MEDS ORDERED: MORPHINE SULFATE 2 MG/ML INJ IV PUSH ONE (18:00)
[2017-06-26 18:01] VITALS: BP 126/80; PULSE 92; RESP 19; O2SAT 100
--- NOTE | 2017-06-26 18:06 | PD ---
HPI Chief Complaint: Abdominal Pain Time Seen by Provider: 17:48 Travel History International Travel<30 days: No Contact w/Intl Traveler<30days: No Traveled to known affect area: No History of Present Illness HPI 46-year-old female with history of primary sclerosing cholangitis, followed closely at [facility] in [place], on the transplant list, here for evaluation of abdominal pain, chills, nausea, lower extremity edema. Symptoms have been going on for a couple of days, worse last night and today. Pain is diffuse, moderate, worse with movements. She is unsure if she has had a fever. No vomiting. She states that a few hours after eating she feels as though her abdomen is distended. PFSH Past Medical History Arthritis: No Asthma: No Autoimmune Disease: No Blood Disorders: No Anxiety: No Depression: No Heart Rhythm Problems: No Cancer: Yes (HX NON HODGKINS LYMPHOMA) Cardiovascular Problems: No High Cholesterol: No Chemotherapy: Yes (HX) Chest Pain: No Congestive Heart Failure: No Cirrhosis: Yes COPD: No Cerebrovascular Accident: No Diabetes: Yes Patient Takes Glucophage: No Diminished Hearing: No Endocrine: No Gastrointestinal Disorders: Yes (sclerosing cholangitis) GERD: No Genitourinary: No Headaches: No Hepatitis: No Hiatal Hernia: No Heparin Induced Thrombocytopen: No Hypertension: No Immune Disorder: No Implanted Vascular Access Dvce: Yes Kidney Stones: Yes Medical other: Yes (HX OF ENLARGED SPLEEN, SPLENECTOMY 2004) Musculoskeletal: No Neurologic: No Psychiatric: No Reproductive: No Respiratory: No Immunizations Current: No Migraines: No Radiation Therapy: No Renal Failure: No Seizures: No Sickle Cell Disease: No Sleep Apnea: No Thyroid Disease: No Ulcer: Yes Tetanus Vaccination: < 5 Years Influenza Vaccination: Yes ?: Not Menopausal: Yes : 2 Para: 2 Miscarriage: 0 : 0 Past Surgical History Abdominal Surgery: Yes (splenectomy, liver biopsy) AICD: No Arteriovenous Shunt: No Body Medical Devices: BILIARY DRAIN Cardiac Surgery: No Cholecystectomy: Yes Ear Surgery: No Endocrine Surgery: No Eye Surgery: No Genitourinary Surgery: No Gynecologic Surgery: No Insulin Pump: No Joint Replacement: No Neurologic Surgery: No Oral Surgery: No Pacemaker: No Thoracic Surgery: No Other Surgery: Yes (BILIARY DRAIN PLACED, LIVER BIOPSY, biliary stents) Social History Alcohol Use: No Tobacco Use: No Substance Use: No Allergies-Medications (Allergen,Severity, Reaction): Coded Allergies: Gadolinium-Containing Contrast Medi (Verified Allergy, Severe, 06/06/17) fentanyl (Verified Allergy, Severe, SOB, 06/06/17) gadobenic acid (Verified Allergy, Severe, BREATHING PROBLEMS, N/V,CHILLS, 06/06/17) gadodiamide (Verified Allergy, Severe, BREATHING PROBLEMS, N/V,CHILLS, ) gadoteridol (Verified Allergy, Severe, BREATHING PROBLEMS, N/V,CHILLS, ) ketorolac (Verified Allergy, Severe, Shortness of Breath, 06/06/17) morphine (Verified Allergy, Severe, SOB, 06/26/17) tramadol (Verified Allergy, Mild, Shortness of Breath, 06/06/17) MRI PRECAUTION (Verified Adverse Reaction, Severe, NAUSEA; PER PATIENT IT IS A GADOLINIUM ALLERGY KMD 11/25/12, 06/06/17) Reported Meds & Prescriptions Reported Meds & Active Scripts Active Reported Lantus Inj (Insulin Glargine) 1,000 Unit/10 Ml Vial 35 Units SQ HS Humalog (Insulin Lispro) 100 Unit/Ml Cartridge 12 SQ TID Humalog Inj (Insulin Human Lispro) 1,000 Unit/10 Ml Vial 8 Units SQ TID Max dose at bedtime:( )units; sugars< 70,(0)units; sugars 150-199,(1)unit; sugars 200-249,(3)units; sugars 250-299,(5)units; sugars 300-349,(7)units; sugars more than 349,(9)units. Lantus Inj (Insulin Glargine) 1,000 Unit/10 Ml Vial 30 Units SQ HS Review of Systems Except as stated in HPI: all other systems reviewed are Neg Physical Exam Narrative GENERAL: Well-developed, thin, comfortable, no apparent distress. SKIN: Focused skin assessment warm/dry. HEAD: Atraumatic. Normocephalic. EYES: Pupils equal and round. No scleral icterus. No injection or drainage. ENT: No nasal bleeding or discharge. Mucous membranes pink and moist. NECK: Trachea midline. No JVD. CARDIOVASCULAR: Regular rate and rhythm. No murmur appreciated. RESPIRATORY: No accessory muscle use. Clear to auscultation. Breath sounds equal bilaterally. GASTROINTESTINAL: Abdomen soft, distended, fluid wave, hepatomegaly, mild diffuse tenderness, no peritoneal signs. MUSCULOSKELETAL: No obvious deformities. No clubbing. No cyanosis. Mild bilateral lower extremity edema. NEUROLOGICAL: Awake and alert. No obvious cranial nerve deficits. Motor grossly within normal limits. Normal speech. PSYCHIATRIC: Appropriate mood and affect; insight and judgment normal. Data Data Last Documented VS Vital Signs Date Time Temp Pulse Resp B/P (MAP) Pulse Ox O2 Delivery O2 Flow Rate FiO2 06/26/17 18:01 18 06/26/17 18:01 92 126/80 (95) 100 Room Air 06/26/17 14:27 97.6 Orders Orders Complete Blood Count With Diff (06/26/17 14:38) Comprehensive Metabolic Panel (06/26/17 14:38) Lipase (06/26/17 14:38) Prothrombin Time / Inr (Pt) (06/26/17 14:38) Act Partial Throm Time (Ptt) (06/26/17 14:38) Urinalysis - C+S If Indicated (06/26/17 14:38) Ed Urine Pregnancytest Poc (06/26/17 14:38) Morphine Inj (Morphine Inj) (06/26/17 18:00) Ondansetron Inj (Zofran Inj) (06/26/17 18:00) Insulin Human Regular Inj (Novolin R Inj (06/26/17 18:15) Hydromorphone Pf Inj (Dilaudid Pf Inj) (06/26/17 18:15) Bedside Glucose ZANE.CSUGAR (06/26/17 19:06) Labs Laboratory Tests Test 06/26/17 15:15 06/26/17 15:20 06/26/17 18:20 Prothrombin Time 9.4 SEC Prothromb Time International Ratio 0.9 RATIO Activated Partial Thromboplast Time 24.6 SEC Blood Urea Nitrogen 6 MG/DL Creatinine 0.72 MG/DL Random Glucose 496 MG/DL Total Protein 7.5 GM/DL Albumin 2.2 GM/DL Calcium Level 8.5 MG/DL Alkaline Phosphatase 2216 U/L Aspartate Amino Transf (AST/SGOT) 276 U/L Alanine Aminotransferase (ALT/SGPT) 212 U/L Total Bilirubin 3.7 MG/DL Sodium Level 131 MEQ/L Potassium Level 3.7 MEQ/L Chloride Level 98 MEQ/L Carbon Dioxide Level 25.1 MEQ/L Anion Gap 8 MEQ/L Estimat Glomerular Filtration Rate 87 ML/MIN Lipase 95 U/L Urine Color YELLOW Urine Turbidity CLEAR Urine pH 6.5 Urine Specific [place] 1.032 Urine Protein NEG mg/dL Urine Glucose (UA) 1000 mg/dL Urine Ketones NEG mg/dL Urine Occult Blood NEG Urine Nitrite NEG Urine Bilirubin NEG Urine Urobilinogen LESS THAN 2.0 MG/DL Urine Leukocyte Esterase NEG Urine RBC LESS THAN 1 /hpf Urine Squamous Epithelial Cells <1 /hpf Microscopic Urinalysis Comment CULT NOT INDICATED White Blood Count 7.9 TH/MM3 Red Blood Count 4.45 MIL/MM3 Hemoglobin 12.8 GM/DL Hematocrit 39.6 % Mean Corpuscular Volume 89.1 FL Mean Corpuscular Hemoglobin 28.9 PG Mean Corpuscular Hemoglobin Concent 32.4 % Red Cell Distribution Width 17.0 % Platelet Count 274 TH/MM3 Mean Platelet Volume 12.5 FL CBC Comment AUTO DIFF Differential Total Cells Counted 100 Neutrophils % (Manual) 82 % Lymphocytes % 10 % Monocytes % 5 % Eosinophils % 2 % Basophils % 1 % Neutrophils # (Manual) 6.5 TH/MM3 Differential Comment FINAL DIFF MANUAL Platelet Estimate NORMAL Platelet Morphology Comment ENLARGED Target Cells 2+ MDM Medical Decision Making Medical Screen Exam Complete: Yes Emergency Medical Condition: Yes Medical Record Reviewed: Yes Differential Diagnosis Chronic abdominal pain, ascites, SBP unlikely Narrative Course Vital signs reviewed and are within normal limits. CBC is essentially unremarkable. CMP is remarkable for sodium 131, random glucose 496, T bili 3.7, AST 276, ALT 212, alkaline phosphatase 2216. LFTs are around the patient's baseline. UA shows 1000 glucose, otherwise unremarkable. Patient was given 10 units of IV insulin and repeat BGL is 229. The patient was also given a dose of Dilaudid. There are no peritoneal signs on her exam. She does have fluid wave indicative of ascites, however her abdomen is soft. She does have an enlarged liver on exam. She appears comfortable. Patient has primary sclerosing cholangitis and is followed closely by physicians at [facility] in [place]. At this point I believe she is stable for discharge home with follow-up with them. She has an appointment with them for 07/12/17. She was advised on when to return to the emergency department. She verbalizes understanding and agreement with plan. Diagnosis Primary Impression: abdominal pain, acute and chronic Referrals: Primary Care Physician 1 week Additional Instructions: Follow-up with your physicians at [facility] as scheduled. Return to the emergency department for worsening symptoms or any other concerns. Disposition: 01 DISCHARGE HOME Condition: Stable Naresh Almanza MD Jun 26, 2017 18:06
[2017-06-26] MEDS ORDERED: HYDROmorphone HCL PF 2 MG/ML VIAL IV PUSH ONE (18:15)
[2017-06-26] MEDS ORDERED: INSULIN HUMAN REGULAR 1,000 UNITS/10 ML VIAL IV PUSH ONE (18:15)
[2017-06-26 18:45] LABS: HEMATOCRIT 39.6 % (35.0-46.0); HEMOGLOBIN 12.8 GM/DL (11.6-15.3); MEAN CELL VOLUME 89.1 FL (80.0-100.0); MEAN CORPUSCULAR HEMOGLOBIN 28.9 PG (27.0-34.0); MEAN CORPUSCULAR HGB CONC 32.4 % (32.0-36.0); MEAN PLATELET VOLUME 12.5 FL (7.0-11.0); PLATELET COUNT 274 TH/MM3 (150-450); RED BLOOD COUNT 4.45 MIL/MM3 (4.00-5.30); WHITE BLOOD COUNT 7.9 TH/MM3 (4.0-11.0)
[2017-06-26 19:16] LABS: BASOPHILS 1 % (0-2); LYMPHOCYTES 10 % (9-44); MONOCYTES 5 % (0-8); NEUTROPHIL # MANUAL DIFF 6.5 TH/MM3 (1.8-7.7); POLYS (SEG NEUTROPHILS) 82 % (16-70); TARGET CELLS 2+ (NORMAL)
== END 2017-06-26 19:50 | disposition home or self-care (01) ==
LOC: NEPD 14:26
DX: R10.9 Unspecified abdominal pain (principal); G89.29 Other chronic pain; K83.0 Cholangitis; E11.9 Type 2 diabetes mellitus without complications; K74.60 Unspecified cirrhosis of liver; Z85.72 Personal history of non-Hodgkin lymphomas; Z79.4 Long term (current) use of insulin
CPT/HCPCS: 80053; 81001; 83690; 84703; 85007; 85027; 85610; 85730; 96374; 96375; 99284; J1170; J1815; J2405

== ENCOUNTER 2017-06-29 14:33 | Emergency (ER) | payer OTHER ==
[~2017-06-29] VITALS: Ht 162.6 cm; Wt 47.5 kg
[~2017-06-29 14:33] MED LIST changes: +INSU100C SQ
[2017-06-29 14:35] VITALS: BP 113/69; PULSE 91; RESP 14; TEMP 98.2; O2SAT 98
--- NOTE | 2017-06-29 17:22 | PD ---
HPI Chief Complaint: Abdominal Pain Time Seen by Provider: 17:11 Travel History International Travel<30 days: No Contact w/Intl Traveler<30days: No Traveled to known affect area: No History of Present Illness HPI patient is here c/o ruq pain, and increased swelling to her feet/lower extremity , states pain is 5/10, denies n/v/d/, is having bm's but noted there's been a change in color for 2 days and then resolved. PFSH Past Medical History Arthritis: No Asthma: No Autoimmune Disease: No Blood Disorders: No Anxiety: No Depression: No Heart Rhythm Problems: No Cancer: Yes (HX NON HODGKINS LYMPHOMA) Cardiovascular Problems: No High Cholesterol: No Chemotherapy: Yes (HX) Chest Pain: No Congestive Heart Failure: No Cirrhosis: Yes COPD: No Cerebrovascular Accident: No Diabetes: Yes Diminished Hearing: No Endocrine: No Gastrointestinal Disorders: Yes (sclerosing cholangitis) GERD: No Genitourinary: No Headaches: No Hepatitis: No Hiatal Hernia: No Heparin Induced Thrombocytopen: No Hypertension: No Immune Disorder: No Implanted Vascular Access Dvce: Yes Kidney Stones: Yes Musculoskeletal: No Neurologic: No Psychiatric: No Reproductive: No Respiratory: No Immunizations Current: No Migraines: No Radiation Therapy: No Renal Failure: No Seizures: No Sickle Cell Disease: No Sleep Apnea: No Thyroid Disease: No Ulcer: Yes Menopausal: Yes : 2 Para: 2 Miscarriage: 0 : 0 Past Surgical History Abdominal Surgery: Yes (splenectomy, liver biopsy) AICD: No Arteriovenous Shunt: No Body Medical Devices: BILIARY DRAIN Cardiac Surgery: No Cholecystectomy: Yes Ear Surgery: No Endocrine Surgery: No Eye Surgery: No Genitourinary Surgery: No Gynecologic Surgery: No Insulin Pump: No Joint Replacement: No Neurologic Surgery: No Oral Surgery: No Pacemaker: No Thoracic Surgery: No Other Surgery: Yes (BILIARY DRAIN PLACED, LIVER BIOPSY, biliary stents) Social History Alcohol Use: No Tobacco Use: No Substance Use: No Allergies-Medications (Allergen,Severity, Reaction): Coded Allergies: Gadolinium-Containing Contrast Medi (Verified Allergy, Severe, 06/06/17) fentanyl (Verified Allergy, Severe, SOB, 06/06/17) gadobenic acid (Verified Allergy, Severe, BREATHING PROBLEMS, N/V,CHILLS, 06/06/17) gadodiamide (Verified Allergy, Severe, BREATHING PROBLEMS, N/V,CHILLS, ) gadoteridol (Verified Allergy, Severe, BREATHING PROBLEMS, N/V,CHILLS, ) ketorolac (Verified Allergy, Severe, Shortness of Breath, 06/06/17) morphine (Verified Allergy, Severe, SOB, 06/26/17) tramadol (Verified Allergy, Mild, Shortness of Breath, 06/06/17) MRI PRECAUTION (Verified Adverse Reaction, Severe, NAUSEA; PER PATIENT IT IS A GADOLINIUM ALLERGY KMD 11/25/12, 06/06/17) Reported Meds & Prescriptions Reported Meds & Active Scripts Active Reported Lantus Inj (Insulin Glargine) 1,000 Unit/10 Ml Vial 35 Units SQ HS Humalog (Insulin Lispro) 100 Unit/Ml Cartridge 12 SQ TID Humalog Inj (Insulin Human Lispro) 1,000 Unit/10 Ml Vial 8 Units SQ TID Max dose at bedtime:( )units; sugars< 70,(0)units; sugars 150-199,(1)unit; sugars 200-249,(3)units; sugars 250-299,(5)units; sugars 300-349,(7)units; sugars more than 349,(9)units. Lantus Inj (Insulin Glargine) 1,000 Unit/10 Ml Vial 30 Units SQ HS Review of Systems General / Constitutional: No: Fever Eyes: No: Visual changes HENT: No: Headaches Cardiovascular: No: Chest Pain or Discomfort Respiratory: No: Shortness of Breath Gastrointestinal: Positive: Abdominal Pain (ruq) Genitourinary: No: Dysuria Musculoskeletal: No: Pain Skin: No Rash Neurologic: No: Weakness Psychiatric: No: Depression Endocrine: No: Polydipsia Hematologic/Lymphatic: No: Easy Bruising Physical Exam Narrative GENERAL: pt is not in any distress, was fully clothed and seemed bothered to have to undo her skinderian jeans for examination. . SKIN: Warm and dry. HEAD: Atraumatic. Normocephalic. EYES: Pupils equal and round. No scleral icterus. No injection or drainage. ENT: No nasal bleeding or discharge. Mucous membranes pink and moist. NECK: Trachea midline. No JVD. CARDIOVASCULAR: Regular rate and rhythm. RESPIRATORY: No accessory muscle use. Clear to auscultation. Breath sounds equal bilaterally. GASTROINTESTINAL: Abdomen soft, nontender, distension noted with fluid shift c/ w ascites....when distracted no rebound/guarding/rigidity noted at all MUSCULOSKELETAL: Extremities without clubbing, cyanosis, or edema. No obvious deformities. NEUROLOGICAL: Awake and alert. No obvious cranial nerve deficits. Motor grossly within normal limits. Five out of 5 muscle strength in the arms and legs. Normal speech. PSYCHIATRIC: Appropriate mood and affect; insight and judgment normal. Data Data Last Documented VS Vital Signs Date Time Temp Pulse Resp B/P (MAP) Pulse Ox O2 Delivery O2 Flow Rate FiO2 06/29/17 14:35 98.2 91 14 113/69 (84) 98 Orders Orders Complete Blood Count With Diff (06/29/17 17:13) Comprehensive Metabolic Panel (06/29/17 17:13) Prothrombin Time / Inr (Pt) (06/29/17 17:13) Act Partial Throm Time (Ptt) (06/29/17 17:13) Urinalysis - C+S If Indicated (06/29/17 17:13) Abdomen, Flat & Upright (06/29/17 ) Iv Access Insert/Monitor (06/29/17 17:13) Ecg Monitoring (06/29/17 17:13) Oximetry (06/29/17 17:13) NPO (06/29/17 17:13) Sodium Chloride 0.9% Flush (Ns Flush) (06/29/17 17:15) Furosemide Inj (Lasix Inj) (06/29/17 17:30) Insulin Human Regular Inj (Novolin R Inj (06/29/17 19:45) Insulin Human Regular Inj (Novolin R Inj (06/29/17 19:45) Labs Laboratory Tests Test 06/29/17 17:50 06/29/17 18:45 Urine Color YELLOW Urine Turbidity CLEAR Urine pH 7.0 Urine Specific [place] 1.031 Urine Protein NEG mg/dL Urine Glucose (UA) 1000 mg/dL Urine Ketones NEG mg/dL Urine Occult Blood NEG Urine Nitrite NEG Urine Bilirubin NEG Urine Urobilinogen LESS THAN 2.0 MG/DL Urine Leukocyte Esterase NEG Urine RBC 1 /hpf Urine WBC LESS THAN 1 /hpf Urine Squamous Epithelial Cells 3 /hpf Urine Bacteria RARE /hpf Microscopic Urinalysis Comment CULT NOT INDICATED White Blood Count 7.1 TH/MM3 Red Blood Count 4.15 MIL/MM3 Hemoglobin 11.8 GM/DL Hematocrit 36.1 % Mean Corpuscular Volume 86.9 FL Mean Corpuscular Hemoglobin 28.4 PG Mean Corpuscular Hemoglobin Concent 32.7 % Red Cell Distribution Width 16.5 % Platelet Count 293 TH/MM3 Mean Platelet Volume 12.1 FL CBC Comment AUTO DIFF Differential Total Cells Counted 100 Neutrophils % (Manual) 78 % Band Neutrophils % 4 % Lymphocytes % 11 % Monocytes % 7 % Neutrophils # (Manual) 5.8 TH/MM3 Differential Comment FINAL DIFF MANUAL Platelet Estimate NORMAL Platelet Morphology Comment ENLARGED Target Cells 2+ Prothrombin Time 9.6 SEC Prothromb Time International Ratio 0.9 RATIO Activated Partial Thromboplast Time 24.7 SEC Blood Urea Nitrogen 6 MG/DL Creatinine 0.43 MG/DL Random Glucose 410 MG/DL Total Protein 6.1 GM/DL Albumin 1.8 GM/DL Calcium Level 8.1 MG/DL Alkaline Phosphatase 1631 U/L Aspartate Amino Transf (AST/SGOT) 188 U/L Alanine Aminotransferase (ALT/SGPT) 162 U/L Total Bilirubin 2.9 MG/DL Sodium Level 133 MEQ/L Potassium Level 3.4 MEQ/L Chloride Level 101 MEQ/L Carbon Dioxide Level 24.8 MEQ/L Anion Gap 7 MEQ/L Estimat Glomerular Filtration Rate 158 ML/MIN [facility] Medical Decision Making Medical Screen Exam Complete: Yes Emergency Medical Condition: Yes Medical Record Reviewed: Yes Differential Diagnosis perforation v free air v sbo v ileus v sepsis v poorly controlled diabetes Narrative Course patient has had multiple visits for same complainte, patient is made aware that she has cirrhosis from primary sclerosing cholangitis and that her condition is chronic...below is last CT in may 2017: CONCLUSION: 1. The liver remains cirrhotic in appearance. There is stable pneumobilia. 2. Nonobstructing renal calculi again noted. 3. Status post splenectomy. 4. The pancreas is not well visualized were evaluated due to lack of intravenous and oral contrast. There is apparent ductal dilatation in the tail region again noted without change. Ayan Metcalf MD on June 01, 2017 at 14:58 Board Certified Radiologist. This report was verified electronically. 3 days ago patient seen here for same complaints. had cmp/cbc/coags done at that time which were c/w cirrhosis patient. today will repeat to ensure no e/o bacteremia/sepsis/ which are highly doubted since patient is nontoxic appearing feb 2 to jun 7 labs AST 276 down to 188 today, alt 212 down to 162, alk phos 2216 down to 1631 so although all labs are abnl, which is expected from her PSG they are actually improving. thus today paitnet is treated as acute exac of chronic pain Diagnosis Primary Impression: abdominal pain, acute and chronic Patient Instructions: Chronic Abdominal Pain (ED), Diabetic Hyperglycemia (ED) , General Instructions Scripts Dicyclomine (Bentyl) 10 Mg Cap 10 MG PO TID Y for Bowel Management, #15 CAP 0 Refills Prov: Neal Ríos MD 06/29/17 Disposition: 01 DISCHARGE HOME Condition: Stable Neal Ríos MD Jun 29, 2017 17:21
[2017-06-29] MEDS ORDERED: FUROSEMIDE 20 MG/2 ML VIAL IVP ONE (17:30)
--- NOTE | 2017-06-29 18:19 | RADRPT ---
EXAM DATE/TIME: 06/29/2017 17:54 [facility] COMPARISON: CT ABDOMEN & PELVIS W/O CONTRAST, April 01, 2017, 19:09. ABDOMEN FLAT & UPRIGHT, September 05, 2016, 0:39. INDICATIONS : Right side abdominal pain. Diarrhea. MEDICAL HISTORY : Lymphoma. SURGICAL HISTORY : Splenectomy. Cholecystectomy. ENCOUNTER: Initial ACUITY: 2 weeks PAIN SCORE: 8/10 LOCATION: Right abdomen. FINDINGS: Supine and upright views of the abdomen were performed. The abdominal bowel gas pattern is normal. No air fluid levels are seen. No abnormal masses, calcifications, or organomegaly is seen. Gas is s een in several biliary ducts, similar to prior. The visualized lower lungs are clear. No evidence o f free intraperitoneal gas. The osseous structures are unremarkable. CONCLUSION: No dilated loops of small or large bowel. Stable pneumobilia. Michael Santamaria MD on June 29, 2017 at 18:15 Board Certified Radiologist. This report was verified electronically.
[2017-06-29 18:32] LABS: BACTERIA, URINE RARE /hpf; BILIRUBIN, URINE NEG (NEG); BLOOD, URINE NEG (NEG); GLUCOSE,URINE 1000 mg/dL (NEG); KETONE, URINE NEG (NEG); NITRITE,URINE NEG (NEG); SQUAMOUS EPITHELIAL CELL URINE 3 /hpf (0-5); URINE COLOR YELLOW (YELLW/STRAW); URINE LEUKOCYTE ESTERASE NEG (NEG)
[2017-06-29 19:19] LABS: INTERNATIONAL NORMALIZED RATIO 0.9 RATIO; PROTHROMBIN TIME - PATIENT 9.6 SEC (9.8-11.6)
[2017-06-29 19:24] LABS: HEMATOCRIT 36.1 % (35.0-46.0); HEMOGLOBIN 11.8 GM/DL (11.6-15.3); MEAN CELL VOLUME 86.9 FL (80.0-100.0); MEAN CORPUSCULAR HEMOGLOBIN 28.4 PG (27.0-34.0); MEAN CORPUSCULAR HGB CONC 32.7 % (32.0-36.0); MEAN PLATELET VOLUME 12.1 FL (7.0-11.0); PLATELET COUNT 293 TH/MM3 (150-450); RED BLOOD COUNT 4.15 MIL/MM3 (4.00-5.30); RED CELL DISTRIBUTION WIDTH 16.5 % (11.6-17.2); WHITE BLOOD COUNT 7.1 TH/MM3 (4.0-11.0)
[2017-06-29] MEDS: SODIUM CHLORIDE 0.9% FLUSH 10 ML FLUSH IV FLUSH PRN ×2 (19:32→20:04)
[2017-06-29 19:38] LABS: ALBUMIN 1.8 GM/DL (3.4-5.0); ALT (GPT) 162 U/L (10-53); AST (GOT) 188 U/L (15-37); BICARBONATE 24.8 MEQ/L (21.0-32.0); BLOOD UREA NITROGEN 6 MG/DL (7-18); CALCIUM 8.1 MG/DL (8.5-10.1); CHLORIDE 101 MEQ/L (98-107); CREATININE 0.43 MG/DL (0.50-1.00); GLOMERULAR FILTRATION RATE 158 ML/MIN (>89); SODIUM (NA) 133 MEQ/L (136-145)
[2017-06-29 19:39] LABS: GLUCOSE,RANDOM 410 MG/DL (74-106)
[2017-06-29] MEDS ORDERED: INSULIN HUMAN REGULAR 1,000 UNITS/10 ML VIAL IV PUSH ONE (19:45)
[2017-06-29] MEDS ORDERED: INSULIN HUMAN REGULAR 1,000 UNITS/10 ML VIAL SQ ONE (19:45)
[2017-06-29 19:51] LABS: ALKALINE PHOSPHATASE 1631 U/L (45-117); TOTAL BILIRUBIN ADULT 2.9 MG/DL (0.2-1.0); TOTAL PROTEIN 6.1 GM/DL (6.4-8.2)
[2017-06-29 19:56] LABS: BANDS 4 % (0-6); LYMPHOCYTES 11 % (9-44); MONOCYTES 7 % (0-8); NEUTROPHIL # MANUAL DIFF 5.8 TH/MM3 (1.8-7.7); POLYS (SEG NEUTROPHILS) 78 % (16-70)
[2017-06-29 19:57] LABS: TARGET CELLS 2+ (NORMAL)
[2017-06-29] MEDS ORDERED: DICY10 PO (20:27)
[2017-06-29] MEDS ORDERED: DICYCLOMINE HCL 20 MG/2 ML VIAL IM ONE (20:30)
== END 2017-06-29 21:04 | disposition home or self-care (01) ==
LOC: NEPD 14:33
DX: R10.11 Right upper quadrant pain (principal); G89.29 Other chronic pain; M79.89 Other specified soft tissue disorders; K74.60 Unspecified cirrhosis of liver; E11.9 Type 2 diabetes mellitus without complications
CPT/HCPCS: 74019; 80053; 81001; 85007; 85027; 85610; 85730; 96372; 96374; 96375; 99284; J1815; J1940

== ENCOUNTER 2017-07-13 13:13 | Emergency (ER) | payer OTHER ==
[~2017-07-13] VITALS: Ht 162.6 cm; Wt 47.5 kg
[~2017-07-13 13:13] MED LIST changes: +DICY10 PO
[2017-07-13 13:15] VITALS: BP 117/75; PULSE 94; RESP 14; TEMP 97.9; O2SAT 100
[2017-07-13] MEDS ORDERED: SODIUM CHLOR 0.9% 1000 ML INJ 1,000 ML IV SCH (13:29)
[2017-07-13] MEDS ORDERED: SODIUM CHLORIDE 0.9% FLUSH 10 ML FLUSH IV FLUSH PRN (13:30)
[2017-07-13] MEDS ORDERED: ONDANSETRON HCL 4 MG/2 ML VIAL IVP ONE (13:30)
[2017-07-13 13:35] VITALS: RESP 16; O2SAT 99
[2017-07-13] MEDS ORDERED: MORPHINE SULFATE 2 MG/ML INJ IV PUSH ONE (13:45)
[2017-07-13 13:50] VITALS: BP 125/80; PULSE 94; RESP 16; TEMP 97.8; O2SAT 99
--- NOTE | 2017-07-13 13:52 | PD ---
HPI Chief Complaint: Abdominal Pain Time Seen by Provider: 13:28 Travel History International Travel<30 days: No Contact w/Intl Traveler<30days: No Traveled to known affect area: No History of Present Illness HPI 46-year-old female with history of primary sclerosing cholangitis, T2 DM presents to the ED for evaluation of worsening right upper quadrant abdominal pain, jaundice, increased urinary urgency and left sided flank pain. Abdominal pain is rated 9/10, constant, sharp. She endorses mild nausea. She denies fever, chills, vomiting, dysuria. She states that she is being evaluated for transplant at the [facility]. She states that she missed her last appointment. She states that her blood sugar was high this morning but has not administered insulin today. She states that she is not currently taking any other medications at home. PCP Dr. Gilmar Matos. [facility] Past Medical History Hx Anticoagulant Therapy: No Arthritis: No Asthma: No Autoimmune Disease: No Blood Disorders: No Anxiety: No Depression: No Heart Rhythm Problems: No Cancer: Yes (HX NON HODGKINS LYMPHOMA) Cardiovascular Problems: No High Cholesterol: No Chemotherapy: No Chest Pain: No Congestive Heart Failure: No Cirrhosis: Yes COPD: No Cerebrovascular Accident: No Diabetes: Yes Patient Takes Glucophage: No Diminished Hearing: No Endocrine: No Gastrointestinal Disorders: Yes (sclerosing cholangitis) GERD: No Genitourinary: No Headaches: No Hepatitis: No Hiatal Hernia: No Heparin Induced Thrombocytopen: No Hypertension: No Immune Disorder: No Implanted Vascular Access Dvce: Yes Kidney Stones: Yes Medical other: Yes (HX OF ENLARGED SPLEEN, SPLENECTOMY 2004) Musculoskeletal: No Neurologic: No Psychiatric: No Reproductive: No Respiratory: No Immunizations Current: No Migraines: No Radiation Therapy: No Renal Failure: No Seizures: No Sickle Cell Disease: No Sleep Apnea: No Thyroid Disease: No Ulcer: Yes Tetanus Vaccination: < 5 Years Influenza Vaccination: Yes ?: Unknown Menopausal: Yes : 2 Para: 2 Miscarriage: 0 : 0 Past Surgical History Abdominal Surgery: Yes (splenectomy, liver biopsy) AICD: No Arteriovenous Shunt: No Body Medical Devices: BILIARY DRAIN Cardiac Surgery: No Cholecystectomy: Yes Ear Surgery: No Endocrine Surgery: No Eye Surgery: No Genitourinary Surgery: No Gynecologic Surgery: No Hysterectomy: No Insulin Pump: No Joint Replacement: No Neurologic Surgery: No Oral Surgery: No Pacemaker: No Thoracic Surgery: No Other Surgery: Yes (BILIARY DRAIN PLACED, LIVER BIOPSY, biliary stents) Social History Alcohol Use: No (pt denies) Tobacco Use: No (pt denies ) Substance Use: No (pt denies) Allergies-Medications (Allergen,Severity, Reaction): Coded Allergies: fentanyl (Verified Allergy, Severe, SOB, 06/06/17) gadobenic acid (Verified Allergy, Severe, BREATHING PROBLEMS, N/V,CHILLS, 06/06/17) gadodiamide (Verified Allergy, Severe, BREATHING PROBLEMS, N/V,CHILLS, ) gadoteridol (Verified Allergy, Severe, BREATHING PROBLEMS, N/V,CHILLS, ) ketorolac (Verified Allergy, Severe, Shortness of Breath, 06/06/17) morphine (Verified Allergy, Severe, SOB, 06/26/17) tramadol (Verified Allergy, Mild, Shortness of Breath, 06/06/17) Gadolinium-Containing Contrast Medi (Verified Adverse Reaction, Severe, nauseas /vomiting, 07/13/17) MRI PRECAUTION (Verified Adverse Reaction, Severe, NAUSEA; PER PATIENT IT IS A GADOLINIUM ALLERGY KMD 11/25/12, 06/06/17) Reported Meds & Prescriptions Reported Meds & Active Scripts Active Reported Lantus Inj (Insulin Glargine) 1,000 Unit/10 Ml Vial 35 Units SQ HS Humalog Inj (Insulin Human Lispro) 1,000 Unit/10 Ml Vial 8 Units SQ TID Max dose at bedtime:( )units; sugars< 70,(0)units; sugars 150-199,(1)unit; sugars 200-249,(3)units; sugars 250-299,(5)units; sugars 300-349,(7)units; sugars more than 349,(9)units. Review of Systems Except as stated in HPI: all other systems reviewed are Neg Physical Exam Narrative GENERAL: Well-nourished, well-developed petite female in no acute distress. SKIN: Focused skin assessment warm/dry. Mild jaundice. HEAD: Normocephalic. EYES: No scleral icterus. No injection or drainage. NECK: Supple, trachea midline. No JVD or lymphadenopathy. CARDIOVASCULAR: Regular rate and rhythm without murmurs, gallops, or rubs. RESPIRATORY: Breath sounds clear and equal bilaterally. No accessory muscle use. GASTROINTESTINAL: Abdomen soft. Hepatomegaly noted. ++ RUQ TTP. Active bowel sounds. No fluid wave. MUSCULOSKELETAL: No cyanosis, or edema. BACK: Nontender without obvious deformity. + bilateral CVA tenderness. Data Data Last Documented VS Vital Signs Date Time Temp Pulse Resp B/P (MAP) Pulse Ox O2 Delivery O2 Flow Rate FiO2 07/13/17 16:04 97.8 76 16 130/78 (95) 99 07/13/17 14:45 Room Air Orders Orders Complete Blood Count With Diff (07/13/17 13:29) Comprehensive Metabolic Panel (07/13/17 13:29) Prothrombin Time / Inr (Pt) (07/13/17 13:29) Act Partial Throm Time (Ptt) (07/13/17 13:29) Urinalysis - C+S If Indicated (07/13/17 13:29) Iv Access Insert/Monitor (07/13/17 13:29) Ecg Monitoring (07/13/17 13:29) Oximetry (07/13/17 13:29) Ondansetron Inj (Zofran Inj) (07/13/17 13:30) Sodium Chlor 0.9% 1000 Ml Inj (Ns 1000 M (07/13/17 13:29) Sodium Chloride 0.9% Flush (Ns Flush) (07/13/17 13:30) Ed Urine Pregnancytest Poc (07/13/17 13:29) Blood Glucose (07/13/17 13:35) Lipase (07/13/17 13:56) Hydromorphone Pf Inj (Dilaudid Pf Inj) (07/13/17 14:15) Ed Discharge Order (07/13/17 15:48) Acetamin-Hydrocod 325-5 Mg ([place] 5-325 (07/13/17 16:00) Labs Laboratory Tests Test 07/13/17 13:40 07/13/17 14:45 White Blood Count 8.9 TH/MM3 Red Blood Count 4.33 MIL/MM3 Hemoglobin 12.4 GM/DL Hematocrit 37.3 % Mean Corpuscular Volume 86.1 FL Mean Corpuscular Hemoglobin 28.7 PG Mean Corpuscular Hemoglobin Concent 33.3 % Red Cell Distribution Width 16.4 % Platelet Count 285 TH/MM3 Mean Platelet Volume 11.6 FL CBC Comment AUTO DIFF Differential Total Cells Counted 100 Neutrophils % (Manual) 77 % Lymphocytes % 11 % Monocytes % 11 % Eosinophils % 1 % Neutrophils # (Manual) 6.9 TH/MM3 Differential Comment FINAL DIFF MANUAL Platelet Estimate NORMAL Platelet Morphology Comment NORMAL Target Cells 2+ Prothrombin Time 9.7 SEC Prothromb Time International Ratio 1.0 RATIO Activated Partial Thromboplast Time 25.0 SEC Blood Urea Nitrogen 5 MG/DL Creatinine 0.41 MG/DL Random Glucose 450 MG/DL Total Protein 6.7 GM/DL Albumin 1.9 GM/DL Calcium Level 8.1 MG/DL Alkaline Phosphatase 1453 U/L Aspartate Amino Transf (AST/SGOT) 207 U/L Alanine Aminotransferase (ALT/SGPT) 144 U/L Total Bilirubin 3.1 MG/DL Sodium Level 132 MEQ/L Potassium Level 4.3 MEQ/L Chloride Level 98 MEQ/L Carbon Dioxide Level 27.1 MEQ/L Anion Gap 7 MEQ/L Estimat Glomerular Filtration Rate 167 ML/MIN Lipase 71 U/L Urine Color YELLOW Urine Turbidity CLEAR Urine pH 7.5 Urine Specific [place] 1.028 Urine Protein NEG mg/dL Urine Glucose (UA) 1000 mg/dL Urine Ketones NEG mg/dL Urine Occult Blood NEG Urine Nitrite NEG Urine Bilirubin NEG Urine Urobilinogen LESS THAN 2.0 MG/DL Urine Leukocyte Esterase SMALL Urine RBC 1 /hpf Urine WBC 1 /hpf Urine Squamous Epithelial Cells 4 /hpf Urine Mucus FEW /lpf Microscopic Urinalysis Comment CULT NOT INDICATED MDM Medical Decision Making Medical Screen Exam Complete: Yes Emergency Medical Condition: Yes Differential Diagnosis Acute on chronic abdominal pain versus UTI versus cholangitis versus other Narrative Course 46-year-old female with history of primary sclerosing cholangitis, T2 DM presents to the ED for evaluation of worsening RUQ abdominal pain, jaundice, increased urinary urgency and left sided flank pain. Abdominal pain is rated 9/ 10, constant, sharp. She endorses mild nausea. She is being evaluated for transplant at the . She missed her last appointment. She states that her blood sugar was high this morning but has not administered insulin today. PCP Dr. Gilmar Matos. Vitals reviewed. On exam this is a thin, nontoxic-appearing female in no acute distress. There is hepatomegaly, tenderness diffusely throughout the abdomen, and bilateral CVA tenderness. Bedside blood glucose is 482. IV was established. Patient was administered 1 L normal saline, 4 mg Zofran, half milligram of Dilaudid. 07/13/17 13:40 Total Protein 6.7, Albumin 1.9 L, Calcium Level 8.1 L, Alkaline Phosphatase 1453 H, Aspartate Amino Transf (AST/SGOT) 207 H, Alanine Aminotransferase (ALT/ SGPT) 144 H, Total Bilirubin 3.1 H UA: No culture indicated Lipase: 71. I reviewed the patient's chart. Liver functions are actually improved from last visit. Patient's had over a dozen CT scans in the last few years. I discussed the results of the workup with the patient. Pain is improved but not fully resolved on presentation. She is administered as well as 5 mg [place]. I recommended the patient seek chronic pain management. I feel that her presentation to the emergency room with these symptoms generally results in a full workup including a CT abdomen. I recommended that the patient seek with her primary care provider regarding regular pain medications as well. The patient and her actually are in agreement with my evaluation and further reassured by the improving labs as well as the otherwise negative workup. The patient is stable and discharged for follow-up with the primary care and specialists at . Diagnosis Primary Impression: abdominal pain, acute and chronic Additional Impression: Poorly controlled diabetes mellitus Referrals: Primary Care Physician Patient Instructions: Chronic Abdominal Pain (ED), General Instructions Additional Instructions: Rest, hydrate. Monitor blood glucose and administer insulin as prescribed. Follow up with the PCP and specialist in [place]. Return to the ED for worsening symptoms or any urgent/emergent medical condition. Disposition: 01 DISCHARGE HOME Condition: Stable Eloise Griffiths Jul 13, 2017 13:52
[2017-07-13 14:11] LABS: HEMATOCRIT 37.3 % (35.0-46.0); HEMOGLOBIN 12.4 GM/DL (11.6-15.3); MEAN CELL VOLUME 86.1 FL (80.0-100.0); MEAN CORPUSCULAR HEMOGLOBIN 28.7 PG (27.0-34.0); MEAN CORPUSCULAR HGB CONC 33.3 % (32.0-36.0); MEAN PLATELET VOLUME 11.6 FL (7.0-11.0); PLATELET COUNT 285 TH/MM3 (150-450); RED BLOOD COUNT 4.33 MIL/MM3 (4.00-5.30); RED CELL DISTRIBUTION WIDTH 16.4 % (11.6-17.2); WHITE BLOOD COUNT 8.9 TH/MM3 (4.0-11.0)
[2017-07-13] MEDS ORDERED: HYDROmorphone HCL PF 2 MG/ML VIAL IV PUSH ONE (14:15)
[2017-07-13 14:17] LABS: PROTHROMBIN TIME - PATIENT 9.7 SEC (9.8-11.6)
[2017-07-13 14:45] VITALS: BP 132/85; PULSE 93; RESP 15; TEMP 97.7; O2SAT 99
[2017-07-13 14:47] LABS: LYMPHOCYTES 11 % (9-44); MONOCYTES 11 % (0-8); NEUTROPHIL # MANUAL DIFF 6.9 TH/MM3 (1.8-7.7); POLYS (SEG NEUTROPHILS) 77 % (16-70)
[2017-07-13 14:48] LABS: ALBUMIN 1.9 GM/DL (3.4-5.0); ALKALINE PHOSPHATASE 1453 U/L (45-117); ALT (GPT) 144 U/L (10-53); AST (GOT) 207 U/L (15-37); BICARBONATE 27.1 MEQ/L (21.0-32.0); BLOOD UREA NITROGEN 5 MG/DL (7-18); CALCIUM 8.1 MG/DL (8.5-10.1); CHLORIDE 98 MEQ/L (98-107); CREATININE 0.41 MG/DL (0.50-1.00); GLOMERULAR FILTRATION RATE 167 ML/MIN (>89); GLUCOSE,RANDOM 450 MG/DL (74-106); SODIUM (NA) 132 MEQ/L (136-145); TARGET CELLS 2+ (NORMAL); TOTAL BILIRUBIN ADULT 3.1 MG/DL (0.2-1.0); TOTAL PROTEIN 6.7 GM/DL (6.4-8.2)
[2017-07-13 15:02] VITALS: RESP 16
[2017-07-13 15:12] LABS: BILIRUBIN, URINE NEG (NEG); BLOOD, URINE NEG (NEG); GLUCOSE,URINE 1000 mg/dL (NEG); KETONE, URINE NEG (NEG); MUCUS URINE FEW /lpf (OCC); NITRITE,URINE NEG (NEG); PH, URINE 7.5 (5.0-8.5); SQUAMOUS EPITHELIAL CELL URINE 4 /hpf (0-5); URINE COLOR YELLOW (YELLW/STRAW); URINE LEUKOCYTE ESTERASE SMALL (NEG)
[2017-07-13] MEDS ORDERED: ACETAMINOPHEN/HYDROcodone 325 MG/5 MG TAB PO ONE (16:00)
[2017-07-13 16:04] VITALS: BP 130/78; TEMP 97.8
== END 2017-07-13 16:05 | disposition home or self-care (01) ==
LOC: NEPC 13:13
DX: R10.11 Right upper quadrant pain (principal); E11.65 Type 2 diabetes mellitus with hyperglycemia; R39.15 Urgency of urination; K83.0 Cholangitis; Z79.4 Long term (current) use of insulin
CPT/HCPCS: 80053; 81001; 83690; 84703; 85007; 85027; 85610; 85730; 96361; 96374; 96375; 99284; J1170; J2405; J7030

== ENCOUNTER 2017-07-17 09:09 | Emergency (ER) | payer OTHER ==
[~2017-07-17] VITALS: Ht 165.1 cm; Wt 48.0 kg
[~2017-07-17 09:09] MED LIST changes: -DICY10 PO; -INSU100C SQ
[2017-07-17 09:13] VITALS: BP 100/75; PULSE 100; RESP 16; TEMP 97.8; O2SAT 99
--- NOTE | 2017-07-17 09:59 | PD ---
HPI Chief Complaint: GI Complaint Time Seen by Provider: 09:30 Travel History International Travel<30 days: No Contact w/Intl Traveler<30days: No Traveled to known affect area: No History of Present Illness HPI The patient was seen and examined in the presence of the nurse. She complains of diarrhea. She also has chronic abdominal pain. She is trying to get on the liver transplant list. She is a frequent visitor here. This is her fourth visit this month alone. She was seen here 4 days ago for the abdominal pain. Severity is moderate. She denies vomiting but has some nausea. No fever. No ill contacts. No alleviating factors. No exacerbating factors. She does not have any stents or drains and at present. She drinks no alcohol. Duration of diarrhea is 2 days PFSH Past Medical History Hx Anticoagulant Therapy: No Arthritis: No Asthma: No Autoimmune Disease: No Blood Disorders: No Anxiety: No Depression: No Heart Rhythm Problems: No Cancer: Yes (HX NON HODGKINS LYMPHOMA) Cardiovascular Problems: No High Cholesterol: No Chemotherapy: Yes Chest Pain: No Congestive Heart Failure: No Cirrhosis: Yes COPD: No Cerebrovascular Accident: No Diabetes: Yes Patient Takes Glucophage: No Diminished Hearing: No Endocrine: No Gastrointestinal Disorders: Yes (sclerosing cholangitis) GERD: No Genitourinary: No Headaches: No Hepatitis: No Hiatal Hernia: No Heparin Induced Thrombocytopen: No Hypertension: No Immune Disorder: No Implanted Vascular Access Dvce: Yes Kidney Stones: Yes Medical other: Yes (HX OF ENLARGED SPLEEN, SPLENECTOMY 2004) Musculoskeletal: No Neurologic: No Psychiatric: No Reproductive: No Respiratory: No Immunizations Current: No Migraines: No Radiation Therapy: No Renal Failure: No Seizures: No Sickle Cell Disease: No Sleep Apnea: No Thyroid Disease: No Ulcer: Yes ?: Not Menopausal: Yes : 2 Para: 2 Miscarriage: 0 : 0 Past Surgical History Abdominal Surgery: Yes (splenectomy, liver biopsy) AICD: No Arteriovenous Shunt: No Body Medical Devices: BILIARY DRAIN Cardiac Surgery: No Cholecystectomy: Yes Ear Surgery: No Endocrine Surgery: No Eye Surgery: No Genitourinary Surgery: No Gynecologic Surgery: No Hysterectomy: No Insulin Pump: No Joint Replacement: No Neurologic Surgery: No Oral Surgery: No Pacemaker: No Thoracic Surgery: No Other Surgery: Yes (BILIARY DRAIN PLACED, LIVER BIOPSY, biliary stents) Social History Alcohol Use: No (pt denies) Tobacco Use: No (pt denies ) Substance Use: No Allergies-Medications (Allergen,Severity, Reaction): Coded Allergies: fentanyl (Verified Allergy, Severe, SOB, 07/17/17) gadobenic acid (Verified Allergy, Severe, BREATHING PROBLEMS, N/V,CHILLS, 07/17/17) gadodiamide (Verified Allergy, Severe, BREATHING PROBLEMS, N/V,CHILLS, ) gadoteridol (Verified Allergy, Severe, BREATHING PROBLEMS, N/V,CHILLS, ) ketorolac (Verified Allergy, Severe, Shortness of Breath, 07/17/17) morphine (Verified Allergy, Severe, SOB, 07/17/17) tramadol (Verified Allergy, Mild, Shortness of Breath, 07/17/17) Gadolinium-Containing Contrast Medi (Verified Adverse Reaction, Severe, nauseas /vomiting, 07/17/17) MRI PRECAUTION (Verified Adverse Reaction, Severe, NAUSEA; PER PATIENT IT IS A GADOLINIUM ALLERGY KMD 11/25/12, 07/17/17) Reported Meds & Prescriptions Reported Meds & Active Scripts Active Reported Lantus Inj (Insulin Glargine) 1,000 Unit/10 Ml Vial 35 Units SQ HS Humalog Inj (Insulin Human Lispro) 1,000 Unit/10 Ml Vial 8 Units SQ TID Max dose at bedtime:( )units; sugars< 70,(0)units; sugars 150-199,(1)unit; sugars 200-249,(3)units; sugars 250-299,(5)units; sugars 300-349,(7)units; sugars more than 349,(9)units. Review of Systems General / Constitutional: No: Fever Eyes: No: Visual changes HENT: No: Headaches Cardiovascular: No: Chest Pain or Discomfort Respiratory: No: Shortness of Breath Gastrointestinal: Positive: Nausea, Diarrhea, Abdominal Pain Genitourinary: No: Dysuria Musculoskeletal: No: Pain Skin: Positive Change in Pigmentation, No Rash Neurologic: No: Weakness Psychiatric: No: Depression Endocrine: No: Polydipsia Hematologic/Lymphatic: No: Easy Bruising Physical Exam Narrative GENERAL: Well-nourished, well-developed patient with abdominal pain and diarrhea . SKIN: Focused skin assessment reveals no rash and nodules. Skin is Warm and dry. HEAD: Atraumatic. Normocephalic. EYES: Pupils equal and round. No scleral icterus. No injection or drainage. ENT: No nasal bleeding or discharge. Mucous membranes pink and moist. NECK: Trachea midline. No JVD. CARDIOVASCULAR: Regular rate and rhythm. No murmur appreciated. RESPIRATORY: No accessory muscle use. Clear to auscultation. Breath sounds equal bilaterally. GASTROINTESTINAL: Abdomen soft, non-tender, nondistended. Hepatic and splenic margins not palpable. Multiple surgical scars well-healed. Vague fullness in the epigastrium MUSCULOSKELETAL: No obvious deformities. No clubbing. No cyanosis. No edema. NEUROLOGICAL: Awake and alert. No obvious cranial nerve deficits. Motor grossly within normal limits. Normal speech. PSYCHIATRIC: Appropriate mood and affect; insight and judgment normal. Data Data Last Documented VS Vital Signs Date Time Temp Pulse Resp B/P (MAP) Pulse Ox O2 Delivery O2 Flow Rate FiO2 07/17/17 09:13 97.8 100 16 100/75 (83) 99 Orders Orders Complete Blood Count With Diff (07/17/17 09:48) Comprehensive Metabolic Panel (07/17/17 09:48) Lipase (07/17/17 09:48) Iv Access Insert/Monitor (07/17/17 09:48) Ondansetron Inj (Zofran Inj) (07/17/17 10:00) Sodium Chloride 0.9% Flush (Ns Flush) (07/17/17 10:00) Sodium Chlor 0.9% 1000 Ml Inj (Ns 1000 M (07/17/17 10:00) Labs Laboratory Tests Test 07/17/17 10:05 White Blood Count 8.7 TH/MM3 Red Blood Count 4.59 MIL/MM3 Hemoglobin 12.9 GM/DL Hematocrit 39.4 % Mean Corpuscular Volume 85.9 FL Mean Corpuscular Hemoglobin 28.2 PG Mean Corpuscular Hemoglobin Concent 32.8 % Red Cell Distribution Width 16.4 % Platelet Count 299 TH/MM3 Mean Platelet Volume 11.6 FL CBC Comment AUTO DIFF Differential Total Cells Counted 100 Neutrophils % (Manual) 79 % Band Neutrophils % 3 % Lymphocytes % 6 % Monocytes % 11 % Eosinophils % 1 % Neutrophils # (Manual) 7.1 TH/MM3 Differential Comment FINAL DIFF MANUAL Platelet Estimate NORMAL Platelet Morphology Comment ENLARGED Target Cells 2+ Blood Urea Nitrogen 5 MG/DL Creatinine 0.32 MG/DL Random Glucose 148 MG/DL Total Protein 6.6 GM/DL Albumin 1.9 GM/DL Calcium Level 8.7 MG/DL Alkaline Phosphatase 1504 U/L Aspartate Amino Transf (AST/SGOT) 231 U/L Alanine Aminotransferase (ALT/SGPT) 143 U/L Total Bilirubin 3.0 MG/DL Sodium Level 134 MEQ/L Potassium Level 3.7 MEQ/L Chloride Level 102 MEQ/L Carbon Dioxide Level 27.0 MEQ/L Anion Gap 5 MEQ/L Estimat Glomerular Filtration Rate 222 ML/MIN Lipase 57 U/L MDM Medical Decision Making Medical Screen Exam Complete: Yes Emergency Medical Condition: Yes Medical Record Reviewed: Yes Differential Diagnosis Gastroenteritis, colitis, medication side effect, chronic abdominal pain, primarily sclerosing cholangitis Narrative Course I have reviewed the patient's electronic medical record. Reviewed her last visit here from 4 days ago. I reviewed her last CT scan of the abdomen and pelvis which was last month. 09 56: I evaluated the patient. I've ordered lab studies Given her chronic abdominal situation with many many evaluations here and CT last month, I don't feel at this point CT would be helpful and changing management 1120: Labs reviewed CBC reasonably normal Electrolytes normal LFTs are elevated but improved from prior Lipase normal 1220: Another recheck of the patient reveals that she is doing well. She is not having acute pain at this point. I don't have concern for invasive bacterial diarrhea, suggested she could try some Imodium. Follow-up with her primary physician Dr. Matos Diagnosis Primary Impression: Diarrhea Qualified Codes: R19.7 - Diarrhea, unspecified Additional Impressions: Liver disease, chronic, with cirrhosis biliary strictures/obstruction, with sclerosing cholangitis Additional Instructions: The patient was advised to follow up with their physician and return if they worsen. Med/Other Pt SpecificInfo: Other Disposition: 01 DISCHARGE HOME Condition: Stable Aurelio Dumont MD Jul 17, 2017 09:59
[2017-07-17] MEDS ORDERED: ONDANSETRON HCL 4 MG/2 ML VIAL IVP ONE (10:00)
[2017-07-17] MEDS ORDERED: SODIUM CHLOR 0.9% 1000 ML INJ 1,000 ML IV ONE (10:00)
[2017-07-17] MEDS ORDERED: SODIUM CHLORIDE 0.9% FLUSH 10 ML FLUSH IV FLUSH PRN (10:00)
[2017-07-17 10:29] LABS: HEMATOCRIT 39.4 % (35.0-46.0); HEMOGLOBIN 12.9 GM/DL (11.6-15.3); MEAN CELL VOLUME 85.9 FL (80.0-100.0); MEAN CORPUSCULAR HEMOGLOBIN 28.2 PG (27.0-34.0); MEAN CORPUSCULAR HGB CONC 32.8 % (32.0-36.0); MEAN PLATELET VOLUME 11.6 FL (7.0-11.0); PLATELET COUNT 299 TH/MM3 (150-450); RED BLOOD COUNT 4.59 MIL/MM3 (4.00-5.30); RED CELL DISTRIBUTION WIDTH 16.4 % (11.6-17.2); WHITE BLOOD COUNT 8.7 TH/MM3 (4.0-11.0)
[2017-07-17 10:58] LABS: ALBUMIN 1.9 GM/DL (3.4-5.0); ALT (GPT) 143 U/L (10-53); AST (GOT) 231 U/L (15-37); BLOOD UREA NITROGEN 5 MG/DL (7-18); CALCIUM 8.7 MG/DL (8.5-10.1); CHLORIDE 102 MEQ/L (98-107); CREATININE 0.32 MG/DL (0.50-1.00); GLOMERULAR FILTRATION RATE 222 ML/MIN (>89); GLUCOSE,RANDOM 148 MG/DL (74-106); SODIUM (NA) 134 MEQ/L (136-145)
[2017-07-17 11:04] LABS: ALKALINE PHOSPHATASE 1504 U/L (45-117); TOTAL PROTEIN 6.6 GM/DL (6.4-8.2)
[2017-07-17 11:25] LABS: BANDS 3 % (0-6); LYMPHOCYTES 6 % (9-44); MONOCYTES 11 % (0-8); NEUTROPHIL # MANUAL DIFF 7.1 TH/MM3 (1.8-7.7); POLYS (SEG NEUTROPHILS) 79 % (16-70)
[2017-07-17 11:26] LABS: TARGET CELLS 2+ (NORMAL)
== END 2017-07-17 13:12 | disposition home or self-care (01) ==
LOC: NEPE 09:09
DX: R19.7 Diarrhea, unspecified (principal); K74.60 Unspecified cirrhosis of liver; K74.5 Biliary cirrhosis, unspecified; K83.0 Cholangitis; K83.1 Obstruction of bile duct; G89.29 Other chronic pain; R10.9 Unspecified abdominal pain
CPT/HCPCS: 80053; 83690; 85007; 85027; 96361; 96374; 99284; J2405; J7030

== ENCOUNTER 2017-07-22 12:54 | Emergency (ER) | payer OTHER ==
--- NOTE | 2017-07-22 13:44 | PD ---
HPI Chief Complaint: GI Complaint Time Seen by Provider: 13:23 Travel History International Travel<30 days: No Contact w/Intl Traveler<30days: No Traveled to known affect area: No History of Present Illness HPI This 47-year-old female says she is having some right flank pain. She also feels as though her left side rib may have moved. She has a history of primary sclerosing cholangitis. [facility] and is due to go there this week. She has had multiple CAT scans done here, her last one was in May. She is not on any medication PFSH Past Medical History Hx Anticoagulant Therapy: No Arthritis: No Asthma: No Autoimmune Disease: No Blood Disorders: No Anxiety: No Depression: No Heart Rhythm Problems: No Cancer: Yes (HX NON HODGKINS LYMPHOMA) Cardiovascular Problems: No High Cholesterol: No Chemotherapy: Yes Chest Pain: No Congestive Heart Failure: No Cirrhosis: Yes COPD: No Cerebrovascular Accident: No Diabetes: Yes Patient Takes Glucophage: No Diminished Hearing: No Endocrine: No Gastrointestinal Disorders: Yes (sclerosing cholangitis) GERD: No Genitourinary: No Headaches: No Hepatitis: No Hiatal Hernia: No Heparin Induced Thrombocytopen: No Hypertension: No Immune Disorder: No Implanted Vascular Access Dvce: Yes Kidney Stones: Yes Medical other: Yes (HX OF ENLARGED SPLEEN, SPLENECTOMY 2004) Musculoskeletal: No Neurologic: No Psychiatric: No Reproductive: No Respiratory: No Immunizations Current: No Migraines: No Radiation Therapy: No Renal Failure: No Seizures: No Sickle Cell Disease: No Sleep Apnea: No Thyroid Disease: No Ulcer: Yes Tetanus Vaccination: < 5 Years Influenza Vaccination: Yes ?: Not Menopausal: Yes : 2 Para: 2 Miscarriage: 0 : 0 Past Surgical History Abdominal Surgery: Yes (splenectomy, liver biopsy) AICD: No Arteriovenous Shunt: No Body Medical Devices: BILIARY DRAIN Cardiac Surgery: No Cholecystectomy: Yes Ear Surgery: No Endocrine Surgery: No Eye Surgery: No Genitourinary Surgery: No Gynecologic Surgery: No Hysterectomy: No Insulin Pump: No Joint Replacement: No Neurologic Surgery: No Oral Surgery: No Pacemaker: No Thoracic Surgery: No Other Surgery: Yes (BILIARY DRAIN PLACED, LIVER BIOPSY, biliary stents) Social History Alcohol Use: No (pt denies) Tobacco Use: No (pt denies ) Substance Use: No Allergies-Medications (Allergen,Severity, Reaction): Coded Allergies: fentanyl (Verified Allergy, Severe, SOB, 07/22/17) gadobenic acid (Verified Allergy, Severe, BREATHING PROBLEMS, N/V,CHILLS, 07/22/17) gadodiamide (Verified Allergy, Severe, BREATHING PROBLEMS, N/V,CHILLS, 07/22) gadoteridol (Verified Allergy, Severe, BREATHING PROBLEMS, N/V,CHILLS, 07/22) ketorolac (Verified Allergy, Severe, Shortness of Breath, 07/22/17) morphine (Verified Allergy, Severe, SOB, 07/22/17) tramadol (Verified Allergy, Mild, Shortness of Breath, 07/22/17) Gadolinium-Containing Contrast Medi (Verified Adverse Reaction, Severe, nauseas /vomiting, 07/22/17) MRI PRECAUTION (Verified Adverse Reaction, Severe, NAUSEA; PER PATIENT IT IS A GADOLINIUM ALLERGY KMD 11/25/12, 07/22/17) Reported Meds & Prescriptions Reported Meds & Active Scripts Active Reported Lantus Inj (Insulin Glargine) 1,000 Unit/10 Ml Vial 35 Units SQ HS Humalog Inj (Insulin Human Lispro) 1,000 Unit/10 Ml Vial 8 Units SQ TID Max dose at bedtime:( )units; sugars< 70,(0)units; sugars 150-199,(1)unit; sugars 200-249,(3)units; sugars 250-299,(5)units; sugars 300-349,(7)units; sugars more than 349,(9)units. Review of Systems General / Constitutional: No: Fever, Chills Eyes: No: Diploplia, Blurred Vision HENT: No: Headaches, Vertigo Cardiovascular: Positive: Chest Pain or Discomfort Respiratory: No: Cough, Shortness of Breath Gastrointestinal: Positive: Nausea, Abdominal Pain Genitourinary: No: Frequency, Dysuria Musculoskeletal: No: Myalgias, Arthralgias Skin: No Rash Neurologic: Positive: Weakness Endocrine: No: Heat Intolerance, Cold Intolerance Hematologic/Lymphatic: No: Easy Bruising Physical Exam Narrative GENERAL: Thin chronically ill-appearing female SKIN: Focused skin assessment warm/dry. HEAD: Atraumatic. Normocephalic. EYES: Pupils equal and round. No scleral icterus. No injection or drainage. ENT: No nasal bleeding or discharge. Mucous membranes pink and moist. NECK: Trachea midline. No JVD. CARDIOVASCULAR: Regular rate and rhythm. No murmur appreciated. RESPIRATORY: No accessory muscle use. Clear to auscultation. Breath sounds equal bilaterally. GASTROINTESTINAL: Abdomen soft, the liver is firm and in the midabdomen with mild distenSIOM. MUSCULOSKELETAL: No obvious deformities. No clubbing. No cyanosis. No edema. NEUROLOGICAL: Awake and alert. No obvious cranial nerve deficits. Motor grossly within normal limits. Normal speech. PSYCHIATRIC: Appropriate mood and affect; insight and judgment normal. Data Data Orders Orders Urinalysis - C+S If Indicated (07/22/17 13:35) Chest, Single Ap (07/22/17 13:35) Labs Laboratory Tests Test 07/22/17 13:35 Urine Collection Type VOIDED Urine Color YELLOW Urine Turbidity CLEAR Urine pH 6.5 Urine Specific [place] LESS/EQUAL 1.005 Urine Protein NEG mg/dL Urine Glucose (UA) 500 mg/dL Urine Ketones NEG mg/dL Urine Occult Blood TRACE Urine Nitrite NEG Urine Bilirubin NEG Urine Urobilinogen 0.2 MG/DL Urine Leukocyte Esterase NEG Urine RBC 0-3 /hpf Urine WBC 0-2 /hpf Urine Squamous Epithelial Cells 0-2 /hpf Urine Yeast (Budding) OCC Urine Oval Fat Bodies Microscopic Urinalysis Comment CULT NOT INDICATED MDM Medical Decision Making Medical Screen Exam Complete: Yes Emergency Medical Condition: Yes Medical Record Reviewed: Yes Differential Diagnosis Differential includes primary sclerosing cholangitis, cirrhosis, rib fracture, renal colic Narrative Course Chest x-ray is negative. Urine does not show any blood suggestive of kidney stone. I have offered pain medication the patient does not want anything. I think her pain is due to progression of her underlying illness which she is cared for at [facility]. I recommended to her that she try to expedite her evaluation there which is supposed to be sometime this month Diagnosis Primary Impression: abdominal pain, acute and chronic Disposition: 01 DISCHARGE HOME Condition: Stable Edgardo Linn MD Jul 22, 2017 13:44
[2017-07-22 14:01] LABS: BILIRUBIN, URINE NEG (NEG); BLOOD, URINE TRACE (NEG); GLUCOSE,URINE 500 mg/dL (NEG); KETONE, URINE NEG (NEG); NITRITE,URINE NEG (NEG); PH, URINE 6.5 (5.0-8.5); URINE COLOR YELLOW (YELLW/STRAW); URINE LEUKOCYTE ESTERASE NEG (NEG)
[2017-07-22 14:11] LABS: RBC, URINE 0-3 /hpf (0-3); WBC, URINE 0-2 /hpf (0-5)
[2017-07-22 14:12] LABS: SQUAMOUS EPITHELIAL CELL URINE 0-2 /hpf (0-5)
--- NOTE | 2017-07-22 14:18 | RADRPT ---
EXAM DATE/TIME: 07/22/2017 13:56 [facility] COMPARISON: CHEST SINGLE AP, February 14, 2017, 21:02. INDICATIONS : Left side rib pain MEDICAL HISTORY : Lymphoma. SURGICAL HISTORY : Splenectomy. Cholecystectomy. ENCOUNTER: Initial ACUITY: 2 days PAIN SCORE: 5/10 LOCATION: chest FINDINGS: A single view of the chest demonstrates the lungs to be symmetrically aerated without evidence of mas s, infiltrate or effusion. The cardiomediastinal contours are unremarkable. Osseous structures are intact. CONCLUSION: Normal examination. Michael Burks Jr., MD on July 22, 2017 at 14:16 Board Certified Radiologist. This report was verified electronically.
== END 2017-07-22 15:30 | disposition home or self-care (01) ==
LOC: PHED 12:54
DX: R10.9 Unspecified abdominal pain (principal); R53.1 Weakness; R11.0 Nausea; E11.9 Type 2 diabetes mellitus without complications; K74.60 Unspecified cirrhosis of liver; K83.0 Cholangitis; R16.1 Splenomegaly, not elsewhere classified; Z79.4 Long term (current) use of insulin; Z79.899 Other long term (current) drug therapy
CPT/HCPCS: 71045; 81001; 99284

== ENCOUNTER 2017-08-01 14:56 | Inpatient (IN) | payer OTHER ==
[~2017-08-01] VITALS: Ht 162.6 cm; Wt 55.0 kg
[2017-08-01] MEDS ORDERED: IOHEXOL 350 MG/ML 10 ML VIAL (for RAD DIAG) IVCONTRAST ONE (14:57)
[2017-08-01 15:09] VITALS: BP 126/82; PULSE 99; RESP 16; TEMP 98.5; O2SAT 99
--- NOTE | 2017-08-01 16:12 | PD ---
HPI Chief Complaint: Abdominal Pain Time Seen by Provider: 15:46 Travel History International Travel<30 days: No Contact w/Intl Traveler<30days: No Traveled to known affect area: No History of Present Illness HPI 47yo F with PMH of primary sclerosing cholangitis presents to the ED with diffuse abdominal pain and distension for 1 week. Associated with nausea. Denies any fever, chest pain, sob, focal weakness or numbness. No dysuria but said urine is dark. Pt was last seen here on 07/22/17 for right flank pain and last had CT a/p on 05/2017. PFSH Past Medical History Hx Anticoagulant Therapy: No Arthritis: No Asthma: No Autoimmune Disease: No Blood Disorders: No Anxiety: No Depression: No Heart Rhythm Problems: No Cancer: Yes (HX NON HODGKINS LYMPHOMA) Cardiovascular Problems: No High Cholesterol: No Chemotherapy: Yes Chest Pain: No Congestive Heart Failure: No Cirrhosis: Yes COPD: No Cerebrovascular Accident: No Diabetes: Yes Patient Takes Glucophage: No Diminished Hearing: No Endocrine: No Gastrointestinal Disorders: Yes (sclerosing cholangitis) GERD: No Genitourinary: No Headaches: No Hepatitis: No Hiatal Hernia: No Heparin Induced Thrombocytopen: No Hypertension: No Immune Disorder: No Implanted Vascular Access Dvce: Yes Kidney Stones: Yes Medical other: Yes (HX OF ENLARGED SPLEEN, SPLENECTOMY 2004) Musculoskeletal: No Neurologic: No Psychiatric: No Reproductive: No Respiratory: No Immunizations Current: No Migraines: No Radiation Therapy: No Renal Failure: No Seizures: No Sickle Cell Disease: No Sleep Apnea: No Thyroid Disease: No Ulcer: Yes Tetanus Vaccination: < 5 Years ?: Not Menopausal: Yes : 2 Para: 2 Miscarriage: 0 : 0 Past Surgical History Abdominal Surgery: Yes (splenectomy, liver biopsy) AICD: No Arteriovenous Shunt: No Body Medical Devices: BILIARY DRAIN Cardiac Surgery: No Cholecystectomy: Yes Ear Surgery: No Endocrine Surgery: No Eye Surgery: No Genitourinary Surgery: No Gynecologic Surgery: No Hysterectomy: No Insulin Pump: No Joint Replacement: No Neurologic Surgery: No Oral Surgery: No Pacemaker: No Thoracic Surgery: No Other Surgery: Yes (BILIARY DRAIN PLACED, LIVER BIOPSY, biliary stents) Social History Alcohol Use: No (pt denies) Tobacco Use: No (pt denies ) Substance Use: No Allergies-Medications (Allergen,Severity, Reaction): Coded Allergies: fentanyl (Verified Allergy, Severe, SOB, 08/01/17) gadobenic acid (Verified Allergy, Severe, BREATHING PROBLEMS, N/V,CHILLS, 08/01/17) gadodiamide (Verified Allergy, Severe, BREATHING PROBLEMS, N/V,CHILLS, ) gadoteridol (Verified Allergy, Severe, BREATHING PROBLEMS, N/V,CHILLS, ) ketorolac (Verified Allergy, Severe, Shortness of Breath, 08/01/17) morphine (Verified Allergy, Severe, SOB, 08/01/17) tramadol (Verified Allergy, Mild, Shortness of Breath, 08/01/17) Gadolinium-Containing Contrast Medi (Verified Adverse Reaction, Severe, nauseas /vomiting, 08/01/17) MRI PRECAUTION (Verified Adverse Reaction, Severe, NAUSEA; PER PATIENT IT IS A GADOLINIUM ALLERGY KMD 11/25/12, 08/01/17) Reported Meds & Prescriptions Reported Meds & Active Scripts Active Reported Lantus Inj (Insulin Glargine) 1,000 Unit/10 Ml Vial 35 Units SQ HS Humalog Inj (Insulin Human Lispro) 1,000 Unit/10 Ml Vial 8 Units SQ TID Max dose at bedtime:( )units; sugars< 70,(0)units; sugars 150-199,(1)unit; sugars 200-249,(3)units; sugars 250-299,(5)units; sugars 300-349,(7)units; sugars more than 349,(9)units. Review of Systems Except as stated in HPI: all other systems reviewed are Neg Physical Exam Narrative GENERAL: 47yo M crying. SKIN: Focused skin assessment warm/dry. HEAD: Atraumatic. Normocephalic. EYES: Pupils equal and round. No scleral icterus. No injection or drainage. ENT: No nasal bleeding or discharge. Mucous membranes pink and moist. NECK: Trachea midline. No JVD. CARDIOVASCULAR: Regular rate and rhythm. No murmur appreciated. RESPIRATORY: No accessory muscle use. Clear to auscultation. Breath sounds equal bilaterally. GASTROINTESTINAL: Abdomen soft, TTP diffusely. No rebound tenderness or guarding. MUSCULOSKELETAL: No obvious deformities. No clubbing. No cyanosis. No edema. NEUROLOGICAL: Awake and alert. No obvious cranial nerve deficits. Motor grossly within normal limits. Normal speech. Data Data Last Documented VS Vital Signs Date Time Temp Pulse Resp B/P (MAP) Pulse Ox O2 Delivery O2 Flow Rate FiO2 08/01/17 15:09 98.5 99 16 126/82 (97) 99 Orders Orders Ondansetron Inj (Zofran Inj) (08/01/17 16:45) Complete Blood Count With Diff (08/01/17 17:48) Comprehensive Metabolic Panel (08/01/17 17:48) Lipase (08/01/17 17:48) Ct Abd/Pel W Iv Contrast(Rout) (08/01/17 17:48) Urinalysis - C+S If Indicated (08/01/17 18:22) Acetaminophen (Tylenol) (08/01/17 18:30) Iohexol 350 Inj (Omnipaque 350 Inj) (08/01/17 14:57) Piperacil-Tazo 4.5 Gm Premix (Zosyn 4.5 (08/01/17 20:00) Hydromorphone Pf Inj (Dilaudid Pf Inj) (08/01/17 20:15) Admit Order (Ed Use Only) (08/01/17 20:03) Labs Laboratory Tests Test 08/01/17 17:55 White Blood Count 8.7 TH/MM3 Red Blood Count 4.15 MIL/MM3 Hemoglobin 11.8 GM/DL Hematocrit 36.0 % Mean Corpuscular Volume 86.7 FL Mean Corpuscular Hemoglobin 28.3 PG Mean Corpuscular Hemoglobin Concent 32.6 % Red Cell Distribution Width 17.0 % Platelet Count 258 TH/MM3 Mean Platelet Volume 12.3 FL CBC Comment AUTO DIFF Differential Total Cells Counted 100 Neutrophils % (Manual) 69 % Band Neutrophils % 7 % Lymphocytes % 12 % Monocytes % 12 % Neutrophils # (Manual) 6.6 TH/MM3 Differential Comment FINAL DIFF MANUAL Platelet Estimate NORMAL Platelet Morphology Comment ENLARGED Target Cells 1+ Blood Urea Nitrogen 6 MG/DL Creatinine 0.52 MG/DL Random Glucose 391 MG/DL Total Protein 6.4 GM/DL Albumin 1.9 GM/DL Calcium Level 8.0 MG/DL Alkaline Phosphatase 1470 U/L Aspartate Amino Transf (AST/SGOT) 174 U/L Alanine Aminotransferase (ALT/SGPT) 122 U/L Total Bilirubin 2.5 MG/DL Sodium Level 138 MEQ/L Potassium Level 3.9 MEQ/L Chloride Level 103 MEQ/L Carbon Dioxide Level 24.6 MEQ/L Anion Gap 10 MEQ/L Estimat Glomerular Filtration Rate 126 ML/MIN Lipase 76 U/L MDM Medical Decision Making Medical Screen Exam Complete: Yes Emergency Medical Condition: Yes Differential Diagnosis Chronic abdominal pain vs. malingering vs. colitis Narrative Course 47yo F here with abdominal pain. Pt has been here multiple times for this. Said only dilaudid helps and she cannot take morphine, toradol. Pt given zofran and acetaminophen. Pt refused acetaminophen. She is pending labs, UA and CT a/p. Sign out to next team to follow up results and reevaluate. Diagnosis Primary Impression: abdominal pain, acute and chronic Cinthia Sadler DO Aug 01, 2017 16:12
[2017-08-01] MEDS ORDERED: ONDANSETRON HCL 4 MG/2 ML VIAL IV PUSH ONE (16:45)
[2017-08-01 18:05] LABS: HEMOGLOBIN 11.8 GM/DL (11.6-15.3); MEAN CELL VOLUME 86.7 FL (80.0-100.0); MEAN CORPUSCULAR HEMOGLOBIN 28.3 PG (27.0-34.0); MEAN CORPUSCULAR HGB CONC 32.6 % (32.0-36.0); MEAN PLATELET VOLUME 12.3 FL (7.0-11.0); PLATELET COUNT 258 TH/MM3 (150-450); RED BLOOD COUNT 4.15 MIL/MM3 (4.00-5.30); WHITE BLOOD COUNT 8.7 TH/MM3 (4.0-11.0)
[2017-08-01] MEDS ORDERED: ACETAMINOPHEN 325 MG TAB PO ONE (18:30)
[2017-08-01 18:34] LABS: ALKALINE PHOSPHATASE 1470 U/L (45-117); TOTAL BILIRUBIN ADULT 2.5 MG/DL (0.2-1.0); TOTAL PROTEIN 6.4 GM/DL (6.4-8.2)
[2017-08-01 18:40] LABS: ALBUMIN 1.9 GM/DL (3.4-5.0); ALT (GPT) 122 U/L (10-53); AST (GOT) 174 U/L (15-37); BICARBONATE 24.6 MEQ/L (21.0-32.0); BLOOD UREA NITROGEN 6 MG/DL (7-18); CHLORIDE 103 MEQ/L (98-107); CREATININE 0.52 MG/DL (0.50-1.00); GLOMERULAR FILTRATION RATE 126 ML/MIN (>89); GLUCOSE,RANDOM 391 MG/DL (74-106); SODIUM (NA) 138 MEQ/L (136-145)
[2017-08-01 18:44] LABS: BANDS 7 % (0-6); LYMPHOCYTES 12 % (9-44); MONOCYTES 12 % (0-8); NEUTROPHIL # MANUAL DIFF 6.6 TH/MM3 (1.8-7.7); POLYS (SEG NEUTROPHILS) 69 % (16-70)
[2017-08-01 18:45] LABS: TARGET CELLS 1+ (NORMAL)
--- NOTE | 2017-08-01 19:31 | RADRPT ---
EXAM DATE/TIME: 08/01/2017 19:02 [facility] COMPARISON: CT ABDOMEN & PELVIS W/O CONTRAST, June 01, 2017, 14:52. CT ABDOMEN & PELVIS W CONTRAST, February 14, 2017, 22:40. INDICATIONS : Right sided abdomen pain radiating to back, IV CONTRAST: 70 cc Omnipaque 350 (iohexol) IV ORAL CONTRAST: No oral contrast ingested. RADIATION DOSE: 6.64 CTDIvol (mGy) MEDICAL HISTORY : Ulcers. Cirrhosis. diabetes,non hodgkin lymphoma,sclerosing cholangitis SURGICAL HISTORY : Splenectomy. Cholecystectomy. ENCOUNTER: Initial ACUITY: 1 day PAIN SCALE: 9/10 LOCATION: Abdomen TECHNIQUE: Volumetric scanning of the abdomen and pelvis was performed. Using automated exposure control and ad justment of the mA and/or kV according to patient size, radiation dose was kept as low as reasonably achievable to obtain optimal diagnostic quality images. DICOM format image data is available electro nically for review and comparison. FINDINGS: Cirrhotic changes are again seen in the liver. There is a small, diffuse ascites, increased from befo re. There is some mucosal enhancement of the gallbladder wall, probably reactive. Intrahepatic and as k her hepatic biliary air again noted, nonspecific but presumably related to previous sphincterotomy. Spleen absent. Chronic pancreatic ductal dilatation. I don't see a mass. Adrenal glands are within no rmal limits. Unchange 10 mm nonobstructing stone lower pole of the left kidney. There is a large amount of stool throughout the colon, especially in the rectum. There is mild wall t hickening throughout as well. No high-grade or focal inflammatory changes are seen. No acute bony abnormality seen. Visualized lung bases are clear. CONCLUSION: 1. Mild, generalized colitis, nonspecific but most likely infectious or inflammatory. Also a large am ount of colonic stool throughout. 2. Cirrhosis again seen. Small ascites, increased. 3. No change biliary air and pancreatic duct dilatation. 4. No change nonobstructing stone lower pole of the left kidney. 5. Previous splenectomy. 6. Reported cholecystectomy but a gallbladder like structure is seen along the inferior margin of the liver Mele Shelton MD on August 01, 2017 at 19:24 Board Certified Radiologist. This report was verified electronically.
[2017-08-01] MEDS ORDERED: PIPERACIL-TAZO 4.5 GM PREMIX 100 ML IV ONE (20:00)
--- NOTE | 2017-08-01 20:13 | PD ---
Data Data Last Documented VS Vital Signs Date Time Temp Pulse Resp B/P (MAP) Pulse Ox O2 Delivery O2 Flow Rate FiO2 08/01/17 15:09 98.5 99 16 126/82 (97) 99 Orders Orders Ondansetron Inj (Zofran Inj) (08/01/17 16:45) Complete Blood Count With Diff (08/01/17 17:48) Comprehensive Metabolic Panel (08/01/17 17:48) Lipase (08/01/17 17:48) Ct Abd/Pel W Iv Contrast(Rout) (08/01/17 17:48) Urinalysis - C+S If Indicated (08/01/17 18:22) Acetaminophen (Tylenol) (08/01/17 18:30) Iohexol 350 Inj (Omnipaque 350 Inj) (08/01/17 14:57) Piperacil-Tazo 4.5 Gm Premix (Zosyn 4.5 (08/01/17 20:00) Hydromorphone Pf Inj (Dilaudid Pf Inj) (08/01/17 20:15) Admit Order (Ed Use Only) (08/01/17 20:03) Labs Laboratory Tests Test 08/01/17 17:55 White Blood Count 8.7 TH/MM3 Red Blood Count 4.15 MIL/MM3 Hemoglobin 11.8 GM/DL Hematocrit 36.0 % Mean Corpuscular Volume 86.7 FL Mean Corpuscular Hemoglobin 28.3 PG Mean Corpuscular Hemoglobin Concent 32.6 % Red Cell Distribution Width 17.0 % Platelet Count 258 TH/MM3 Mean Platelet Volume 12.3 FL CBC Comment AUTO DIFF Differential Total Cells Counted 100 Neutrophils % (Manual) 69 % Band Neutrophils % 7 % Lymphocytes % 12 % Monocytes % 12 % Neutrophils # (Manual) 6.6 TH/MM3 Differential Comment FINAL DIFF MANUAL Platelet Estimate NORMAL Platelet Morphology Comment ENLARGED Target Cells 1+ Blood Urea Nitrogen 6 MG/DL Creatinine 0.52 MG/DL Random Glucose 391 MG/DL Total Protein 6.4 GM/DL Albumin 1.9 GM/DL Calcium Level 8.0 MG/DL Alkaline Phosphatase 1470 U/L Aspartate Amino Transf (AST/SGOT) 174 U/L Alanine Aminotransferase (ALT/SGPT) 122 U/L Total Bilirubin 2.5 MG/DL Sodium Level 138 MEQ/L Potassium Level 3.9 MEQ/L Chloride Level 103 MEQ/L Carbon Dioxide Level 24.6 MEQ/L Anion Gap 10 MEQ/L Estimat Glomerular Filtration Rate 126 ML/MIN Lipase 76 U/L MDM Medical Record Reviewed: Yes Supervised Visit with MYRON: No Narrative Course CBC & BMP Diagram 08/01/17 17:55 Total Protein 6.4, Albumin 1.9 L, Calcium Level 8.0 L, Alkaline Phosphatase 1470 H, Aspartate Amino Transf (AST/SGOT) 174 H, Alanine Aminotransferase (ALT/ SGPT) 122 H, Total Bilirubin 2.5 H Bandemia 7% Lipase 76 CT shows generalized colitis, ascites and minimal GB wall thickening likely 2/2 ascites. Zosyn started Admission for colitis w bandemia and ascites d/w Dr Whyte Diagnosis Primary Impression: Liver disease, chronic, with cirrhosis Additional Impressions: diabetes PSC (primary sclerosing cholangitis) Poorly controlled diabetes mellitus pain Bandemia Colitis Admitting Information Admitting Physician Requests: Admit Farzad Silva MD Aug 01, 2017 20:13
[2017-08-01] MEDS ORDERED: HYDROmorphone HCL PF 2 MG/ML VIAL IV PUSH ONE (20:15)
[2017-08-01] MEDS ORDERED: GLUCAGON 1 MG/ML VIAL OTHER PRN (20:45)
[2017-08-01] MEDS ORDERED: SENNOSIDES 8.6 MG TAB PO PRN (20:45)
[2017-08-01] MEDS ORDERED: BISACODYL 10 MG SUPP RECTAL PRN (20:45)
[2017-08-01] MEDS ORDERED: MAGNESIUM HYDROXIDE SUSP 30 ML CUP PO PRN (20:45)
[2017-08-01] MEDS ORDERED: SODIUM CHLORIDE 0.9% FLUSH 10 ML FLUSH IV FLUSH PRN (20:45)
[2017-08-01] MEDS ORDERED: LACTULOSE SYRUP 20 GM/30 ML CUP PO PRN (20:45)
[2017-08-01] MEDS ORDERED: NALOXONE HCL 0.4 MG/ML AMP IV PUSH PRN (20:45)
[2017-08-01] MEDS ORDERED: DEXTROSE 50% IN WATER 50 ML VIAL(D50) IV PUSH PRN (20:45)
[2017-08-01 20:49] VITALS: BP 124/85; PULSE 95; RESP 18; O2SAT 98
[2017-08-01] MEDS: DOCUSATE SODIUM 50 MG/SENNA 8.6 MG TAB PO SCH (21:00)
--- NOTE | 2017-08-01 22:07 | HHI.HP ---
[facility] Gilmar Matos DO Admission Diagnosis Colitis; Ascites Diagnoses: Travel History International Travel<30 Days: No Contact w/Intl Traveler <30 Da: No Traveled to Known Affected Are: No History of Present Illness 47-year-old female with past medical history significant for primary sclerosing cholangitis, non-Hodgkin's lymphoma and type 1 diabetes mellitus presents with acutely worsening right upper quadrant abdominal pain. The patient reports that the pain has been going on approximately for 5 days and has not been improving at home. She endorses nausea/vomiting with dry heaves. She endorses subjective chills. She states the pain radiates to her right flank and then across her back. She also has complains of an enlarging abdomen with increasing pain/pressure. The patient was initially worked up at [facility] however she reports that she was not accepted by them because she was "not severe enough." She reports her primary sclerosing cholangitis was diagnosed via liver biopsy approximately 5 years ago at [facility]. She has not established with a prevention rn here. Review of Systems Except as stated in HPI: all other systems reviewed are Neg Past Family Social History Past Medical History Primary sclerosing cholangitis History of non-Hodgkin's lymphoma Biliary/pancreatic strictures Type 1 diabetes mellitus Past Surgical History Liver tumor resection in 2004 Splenectomy Reported Medications Reported Meds & Active Scripts Active Reported Lantus Inj (Insulin Glargine) 1,000 Unit/10 Ml Vial 35 Units SQ HS Humalog Inj (Insulin Human Lispro) 1,000 Unit/10 Ml Vial 8 Units SQ TID Max dose at bedtime:( )units; sugars< 70,(0)units; sugars 150-199,(1)unit; sugars 200-249,(3)units; sugars 250-299,(5)units; sugars 300-349,(7)units; sugars more than 349,(9)units. Allergies: Coded Allergies: fentanyl (Verified Allergy, Severe, SOB, 08/01/17) gadobenic acid (Verified Allergy, Severe, BREATHING PROBLEMS, N/V,CHILLS, 08/01/17) gadodiamide (Verified Allergy, Severe, BREATHING PROBLEMS, N/V,CHILLS, ) gadoteridol (Verified Allergy, Severe, BREATHING PROBLEMS, N/V,CHILLS, ) ketorolac (Verified Allergy, Severe, Shortness of Breath, 08/01/17) morphine (Verified Allergy, Severe, SOB, 08/01/17) tramadol (Verified Allergy, Mild, Shortness of Breath, 08/01/17) Gadolinium-Containing Contrast Medi (Verified Adverse Reaction, Severe, nauseas /vomiting, 08/01/17) MRI PRECAUTION (Verified Adverse Reaction, Severe, NAUSEA; PER PATIENT IT IS A GADOLINIUM ALLERGY KMD 11/25/12, 08/01/17) Family History Father with coronary artery disease. Social History Denies tobacco, alcohol or illicit drugs Physical Exam Vital Signs Vital Signs Date Time Temp Pulse Resp B/P (MAP) Pulse Ox O2 Delivery O2 Flow Rate FiO2 08/01/17 20:49 95 18 124/85 (98) 98 08/01/17 15:09 98.5 99 16 126/82 (97) 99 Physical Exam GENERAL: female sitting up SKIN: No rashes, ecchymoses or lesions. Cool and dry. HEAD: Atraumatic. Normocephalic. No temporal or scalp tenderness. EYES: Pupils equal round and reactive. Extraocular motions intact. No scleral icterus. No injection or drainage. ENT: Nose without bleeding, purulent drainage or septal hematoma. Throat without erythema, tonsillar hypertrophy or exudate. Uvula midline. Airway patent. NECK: Trachea midline. No JVD or lymphadenopathy. Supple, nontender, no meningeal signs. CARDIOVASCULAR: Regular rate and rhythm without murmurs, gallops, or rubs. RESPIRATORY: Clear to auscultation. Breath sounds equal bilaterally. No wheezes , rales, or rhonchi. GASTROINTESTINAL: Abdomen soft, distended. Tender to palpation in all 4 quadrants, worse in the right upper quadrant. Voluntary guarding. No peritoneal signs. MUSCULOSKELETAL: Extremities without clubbing, cyanosis, or edema. No joint tenderness, effusion, or edema noted. No calf tenderness. NEUROLOGICAL: Awake and alert. Cranial nerves II through XII intact. Motor and sensory grossly within normal limits. Normal speech. Laboratory Laboratory Tests Test 08/01/17 17:55 White Blood Count 8.7 Red Blood Count 4.15 Hemoglobin 11.8 Hematocrit 36.0 Mean Corpuscular Volume 86.7 Mean Corpuscular Hemoglobin 28.3 Mean Corpuscular Hemoglobin Concent 32.6 Red Cell Distribution Width 17.0 Platelet Count 258 Mean Platelet Volume 12.3 CBC Comment AUTO DIFF Differential Total Cells Counted 100 Neutrophils % (Manual) 69 Band Neutrophils % 7 Lymphocytes % 12 Monocytes % 12 Neutrophils # (Manual) 6.6 Differential Comment FINAL DIFF MANUAL Platelet Estimate NORMAL Platelet Morphology Comment ENLARGED Target Cells 1+ Blood Urea Nitrogen 6 Creatinine 0.52 Random Glucose 391 Total Protein 6.4 Albumin 1.9 Calcium Level 8.0 Alkaline Phosphatase 1470 Aspartate Amino Transf (AST/SGOT) 174 Alanine Aminotransferase (ALT/SGPT) 122 Total Bilirubin 2.5 Sodium Level 138 Potassium Level 3.9 Chloride Level 103 Carbon Dioxide Level 24.6 Anion Gap 10 Estimat Glomerular Filtration Rate 126 Lipase 76 Result Diagram: 08/01/17175408/01/171754 Caprini VTE Risk Assessment Caprini VTE Risk Assessment: No/Low Risk (score <= 1) Caprini Risk Assessment Model Point Value = 1 Point Value = 2 Point Value = 3 Point Value = 5 Age 41-60 Minor surgery BMI > 25 kg/m2 Swollen legs Varicose veins or History of unexplained or recurrent spontaneous Oral contraceptives or hormone replacement Sepsis (< 1 month) Serious lung disease, including pneumonia (< 1 month) Abnormal pulmonary function Acute myocardial infarction Congestive heart failure (< 1 month) History of inflammatory bowel disease Medical patient at bed rest Age 61-74 Arthroscopic surgery Major open surgery (> 45 min) Laparoscopic surgery (> 45 min) Malignancy Confined to bed (> 72 hours) Immobilizing plaster cast Central venous access Age >= 75 History of VTE Family history of VTE Factor V Leiden Prothrombin [id number] Lupus anticoagulant Anticardiolipin antibodies Elevated serum homocysteine Heparin-induced thrombocytopenia Other congenital or acquired thrombophilia Stroke (< 1 month) Elective arthroplasty Hip, pelvis, or leg fracture Acute spinal cord injury (< 1 month) Prophylaxis Regimen Total Risk Factor Score Risk Level Prophylaxis Regimen 0-1 Low Early ambulation 2 Moderate Order ONE of the following: *Sequential Compression Device (SCD) *Heparin 5000 units SQ BID 3-4 Higher Order ONE of the following medications: *Heparin 5000 units SQ TID *Enoxaparin/Lovenox 40 mg SQ daily (WT < 150 kg, CrCl > 30 mL/min) *Enoxaparin/Lovenox 30 mg SQ daily (WT < 150 kg, CrCl > 10-29 mL/min) *Enoxaparin/Lovenox 30 mg SQ BID (WT < 150 kg, CrCl > 30 mL/min) AND/OR *Sequential Compression Device (SCD) 5 or more Highest Order ONE of the following medications: *Heparin 5000 units SQ TID (Preferred with Epidurals) *Enoxaparin/Lovenox 40 mg SQ daily (WT < 150 kg, CrCl > 30 mL/min) *Enoxaparin/Lovenox 30 mg SQ daily (WT < 150 kg, CrCl > 10-29 mL/min) *Enoxaparin/Lovenox 30 mg SQ BID (WT < 150 kg, CrCl > 30 mL/min) AND *Sequential Compression Device (SCD) Assessment and Plan Assessment and Plan Assessment/plan: 1. Abdominal pain/PSC/Strictures/Cirrhosis/Transaminitis CT of the abdomen/pelvis shows mild colitis - cirrhosis at baseline, small ascites, no change in biliary air and pancreatic duct dilation, no change in nonobstructing left kidney stone, personally reviewed Zosyn - transition to oral antibiotics once tolerating by mouth Patient evaluated by gastroenterology at her last hospitalization, recommend outpatient follow-up Transaminitis is baseline Dilaudid for pain as patient states she is allergic to morphine and tramadol 2. Diabetes mellitus Holding home insulin until patient tolerating by mouth Sliding scale insulin Monitor blood glucose FEN Clear liquid diet Electrolytes: Replete prn Case management consulted to assist in outpatient follow-up Physician Certification 2 Midnight Certification Type: Admission for Inpatient Services Order for Inpatient Services The services are ordered in accordance with Medicare regulations or non- Medicare payer requirements, as applicable. In the case of services not specified as inpatient-only, they are appropriately provided as inpatient services in accordance with the 2-midnight benchmark. Estimated LOS (days): 2 2 days is the estimated time the patient will need to remain in the hospital, assuming treatment plan goals are met and no additional complications. Post-Hospital Plan: Not yet determined Isaura Whyte MD Aug 01, 2017 22:07
[2017-08-01] MEDS: SODIUM CHLORIDE 0.9% FLUSH 10 ML FLUSH IV FLUSH SCH (23:00)
[2017-08-01] MEDS: INSULIN ASPART SUPPLEMENTAL SCALE SQ SCH (23:00)
[2017-08-01 23:03] VITALS: BP 140/84; PULSE 94; RESP 18; TEMP 97.9; O2SAT 97
[2017-08-02] VITALS (7 sets, daily range): BP systolic 118–148; BP diastolic 80–89; PULSE 79–91; RESP 18–24; TEMP 97.5–98; O2SAT 96–99
[2017-08-02] MEDS: HYDROmorphone HCL PF 2 MG/ML VIAL IV PUSH PRN ×4 (01:18→19:44)
[2017-08-02] MEDS: PIPERACIL-TAZO 3.375 GM PREMIX 50 ML IV SCH ×4 (02:21→20:24)
[2017-08-02 07:41] LABS: HEMATOCRIT 34.3 % (35.0-46.0); HEMOGLOBIN 11.4 GM/DL (11.6-15.3); MEAN CELL VOLUME 84.2 FL (80.0-100.0); MEAN CORPUSCULAR HGB CONC 33.2 % (32.0-36.0); MEAN PLATELET VOLUME 11.6 FL (7.0-11.0); PLATELET COUNT 261 TH/MM3 (150-450); RED BLOOD COUNT 4.07 MIL/MM3 (4.00-5.30); RED CELL DISTRIBUTION WIDTH 16.5 % (11.6-17.2); WHITE BLOOD COUNT 12.2 TH/MM3 (4.0-11.0)
[2017-08-02 08:15] LABS: ALBUMIN 1.8 GM/DL (3.4-5.0); ALT (GPT) 113 U/L (10-53); AST (GOT) 165 U/L (15-37); BICARBONATE 26.6 MEQ/L (21.0-32.0); BLOOD UREA NITROGEN 5 MG/DL (7-18); CALCIUM 8.1 MG/DL (8.5-10.1); CHLORIDE 106 MEQ/L (98-107); CREATININE 0.28 MG/DL (0.50-1.00); GLOMERULAR FILTRATION RATE 258 ML/MIN (>89); GLUCOSE,RANDOM 133 MG/DL (74-106); SODIUM (NA) 142 MEQ/L (136-145)
[2017-08-02 08:27] LABS: ALKALINE PHOSPHATASE 1384 U/L (45-117); TOTAL BILIRUBIN ADULT 2.4 MG/DL (0.2-1.0)
[2017-08-02 08:39] LABS: BANDS 3 % (0-6); BASOPHILS 1 % (0-2); LYMPHOCYTES 9 % (9-44); METAMYELOCYTES 1 % (0-1); MONOCYTES 7 % (0-8); MYELOCYTES 1 % (0-0); POLYS (SEG NEUTROPHILS) 77 % (16-70); TARGET CELLS 2+ (NORMAL)
[2017-08-02 08:40] LABS: HOWELL-JOLLY BODIES PRESENT (NONE SEEN)
[2017-08-02] MEDS: DOCUSATE SODIUM 50 MG/SENNA 8.6 MG TAB PO SCH ×2 (09:00→21:01)
[2017-08-02] MEDS: SODIUM CHLORIDE 0.9% FLUSH 10 ML FLUSH IV FLUSH SCH ×2 (10:19→21:00)
[2017-08-02] MEDS: INSULIN ASPART SUPPLEMENTAL SCALE SQ SCH ×4 (10:19→22:33)
[2017-08-02] MEDS: POTASSIUM CHLOR 20 MEQ PREMIX 100 ML IV SCH ×3 (11:26→21:13)
--- NOTE | 2017-08-02 15:43 | HHI.PR ---
Subjective Remarks The patient said she only felt a little bit better. She was tolerating clear liquids and wanted more regular food. She said she has not been following up with doctors as an outpatient secondary to insurance problems. She complains of abdominal pain radiating to her back. She says she has had problems with her gallbladder in the past but nobody wants to take it out. Objective Vitals Vital Signs Date Time Temp Pulse Resp B/P (MAP) Pulse Ox O2 Delivery O2 Flow Rate FiO2 08/02/17 15:08 97.7 81 20 148/88 (108) 98 08/02/17 11:11 97.7 87 24 134/89 (104) 98 08/02/17 07:35 97.5 85 20 130/80 (97) 96 08/02/17 04:59 97.9 91 18 118/80 (93) 97 08/02/17 01:12 97.9 87 18 127/86 (100) 97 08/01/17 23:03 97.9 94 18 140/84 (102) 97 08/01/17 22:26 08/01/17 20:49 95 18 124/85 (98) 98 I/O 08/01/17 08/01/17 08/01/17 08/02/17 08/02/17 08/02/17 07:00 15:00 23:00 07:00 15:00 23:00 Intake Total 100 ml 50 ml Balance 100 ml 50 ml Intake IV Total 100 ml 50 ml # Voids 0 # Bowel Movements 0 Result Diagram: 08/02/17 0605 08/02/17 0605 Imaging Last Impressions Abdomen/Pelvis CT 08/01/17 1748 Signed Impressions: Service Date/Time: July 19:02 - CONCLUSION: 1. Mild, generalized colitis, nonspecific but most likely infectious or inflammatory. Also a large amount of colonic stool throughout. 2. Cirrhosis again seen. Small ascites, increased. 3. No change biliary air and pancreatic duct dilatation. 4. No change nonobstructing stone lower pole of the left kidney. 5. Previous splenectomy. 6. Reported cholecystectomy but a gallbladder like structure is seen along the inferior margin of the liver Mele Shelton MD Objective Remarks GENERAL: Resting in bed. SKIN: No rashes, ecchymoses or lesions. Cool and dry. HEAD: Atraumatic. Normocephalic. No temporal or scalp tenderness. EYES: Pupils equal round and reactive. Extraocular motions intact. No scleral icterus. No injection or drainage. ENT: Nose without bleeding, purulent drainage or septal hematoma. Throat without erythema, tonsillar hypertrophy or exudate. Uvula midline. Airway patent. NECK: Trachea midline. No JVD or lymphadenopathy. Supple, nontender, no meningeal signs. CARDIOVASCULAR: Regular rate and rhythm without murmurs, gallops, or rubs. RESPIRATORY: Clear to auscultation. Breath sounds equal bilaterally. No wheezes , rales, or rhonchi. GASTROINTESTINAL: Abdomen soft, distended. Tender to palpation in all 4 quadrants, worse in the right upper quadrant. Voluntary guarding. No peritoneal signs. MUSCULOSKELETAL: Extremities without clubbing, cyanosis, or edema. No joint tenderness, effusion, or edema noted. NEUROLOGICAL: Awake and alert. Cranial nerves II through XII intact. Motor and sensory grossly within normal limits. Normal speech. Medications and IVs Current Medications Medications (Trade) Dose Ordered Sig/Celso Route Start Time Stop Time Status Last Admin Piperacillin Sod/ Tazobactam Sod 50 ml @ 100 mls/hr Q6H IV 08/02/17 02:00 08/02/17 10:28 (Dilaudid Pf Inj) 1 mg Q4H PRN IV PUSH 08/02/17 00:00 08/02/17 14:53 (NS Flush) 2 ml UNSCH PRN IV FLUSH 08/01/17 20:45 (NS Flush) 2 ml BID IV FLUSH 08/01/17 21:00 08/02/17 10:19 (Zofran Inj) 4 mg Q6H PRN IVP 08/01/17 20:45 (Narcan Inj) 0.4 mg UNSCH PRN IV PUSH 08/01/17 20:45 (Tish-Colace) 1 tab BID PO 08/01/17 21:00 (Milk Of Magnesia Liq) 30 ml Q12H PRN PO 08/01/17 20:45 (Senokot) 17.2 mg Q12H PRN PO 08/01/17 20:45 (Dulcolax Supp) 10 mg DAILY PRN RECTAL 08/01/17 20:45 (Lactulose Liq) 30 ml DAILY PRN PO 08/01/17 20:45 (D50w (Vial) Inj) 50 ml UNSCH PRN IV PUSH 08/01/17 20:45 (Glucagon Inj) 1 mg UNSCH PRN OTHER 08/01/17 20:45 (NovoLOG SUPPLEMENTAL SCALE) 1 ACHS SLIDING SCALE SQ 08/01/17 21:00 08/02/17 14:54 A/P Assessment and Plan Abdominal pain/PSC/Strictures/Cirrhosis/Transaminitis/Colitis CT of the abdomen/pelvis shows mild colitis - cirrhosis at baseline, small ascites, no change in biliary air and pancreatic duct dilation, no change in nonobstructing left kidney stone. She has elevated LFTs, which is chronic. - Zosyn IV for now. - IVFs. - gastroenterology consult requested. - Dilaudid for pain as patient states she is allergic to morphine and tramadol. - antiemetics as needed. - bowel regimen. - Advanced to low residue diet. Diabetes mellitus Glucose has been elevated. - Holding home insulin. Start Levemir 5 units twice a day. Adjust as needed. - Sliding scale insulin. Hypokalemia S/t decreased PO intake. - replete and monitor. PPx: KATRINs Ayan Reece DO Aug 02, 2017 15:43
--- NOTE | 2017-08-02 16:39 | PD.CONS ---
HPI History of Present Illness This is a 47 year old readmitted on 08/01/17. Patient was sent home 5 days ago but states symptoms persist with nausea and some vomiting, right upper quadrant pain worsened over the past 3 weeks. Patient also has diffuse abdominal pain with some guarding to light palpation. She notes green stools yesterday, but none today. Still having bouts of nausea but no vomiting today. She has tolerated minimal amounts of clear liquids today. Patient states approximately 20 pound weight loss over the past 2 months, states her appetite is about the sign and she does attempt to take clear liquids. She notes a history of gallstones approximately 2 months ago. According to the medical record patient is here monthly for the past year with some of the same symptoms according to the record she was diagnosed with sclerosing cholangitis be a liver biopsy approximately 5 years ago with the [facility]. She states her insurance changed and currently is seeing no local GI doctor. In January 2017 paracentesis noted with cyst biopsy, July [address] done on shows mild general colitis nonspecific but most likely infectious versus inflammatory. Large amount of colonic stool seen. Small amount of ascites increased. No change biliary air or pancreatic duct dilatation. No change nonobstructing stone in the lower pole of the left kidney previous splenectomy reported cholecystectomy but her gallbladder-like suture is seen along the inferior margin of the liver. Today patient has minimal bowel sounds, abdomen semifirm. (Lola Levin) [facility] Past Medical History According to the record and patient Primary sclerosing cholangitis History of non-Hodgkin's lymphoma Biliary/pancreatic strictures Type 1 diabetes mellitus Past Surgical History Liver tumor resection in 2004 Splenectomy Liver biopsies Paracentesis ERCPs (Lola Levin) Coded Allergies: fentanyl (Verified Allergy, Severe, SOB, 08/01/17) gadobenic acid (Verified Allergy, Severe, BREATHING PROBLEMS, N/V,CHILLS, 08/01/17) gadodiamide (Verified Allergy, Severe, BREATHING PROBLEMS, N/V,CHILLS, ) gadoteridol (Verified Allergy, Severe, BREATHING PROBLEMS, N/V,CHILLS, ) ketorolac (Verified Allergy, Severe, Shortness of Breath, 08/01/17) morphine (Verified Allergy, Severe, SOB, 08/01/17) tramadol (Verified Allergy, Mild, Shortness of Breath, 08/01/17) Gadolinium-Containing Contrast Medi (Verified Adverse Reaction, Severe, nauseas /vomiting, 08/01/17) MRI PRECAUTION (Verified Adverse Reaction, Severe, NAUSEA; PER PATIENT IT IS A GADOLINIUM ALLERGY KMD 11/25/12, 08/01/17) Medications Administered Medications Medications (Trade) Dose Ordered Sig/Celso Route PRN Reason Start Time Stop Time Status Last Admin Dose Admin Piperacillin Sod/ Tazobactam Sod 50 ml @ 100 mls/hr Q6H IV 08/02/17 02:00 08/02/17 10:28 Hydromorphone HCl (Dilaudid Pf Inj) 1 mg Q4H PRN IV PUSH pain 6-10 08/02/17 00:00 08/02/17 14:53 Sodium Chloride (NS Flush) 2 ml BID IV FLUSH 08/01/17 21:00 08/02/17 10:19 Insulin Aspart (NovoLOG SUPPLEMENTAL SCALE) 1 ACHS SLIDING SCALE SQ 08/01/17 21:00 08/02/17 14:54 Family History Father with coronary artery disease. Social History Denies tobacco, alcohol or illicit drugs (Lola Levin) Review of Systems Constitutional: COMPLAINS OF: Weight loss Gastrointestinal: COMPLAINS OF: Abdominal pain (with green stools), Nausea, Vomiting (Lola Levin) GI Exam Vitals I&O Vital Signs Date Time Temp Pulse Resp B/P (MAP) Pulse Ox O2 Delivery O2 Flow Rate FiO2 08/02/17 15:08 97.7 81 20 148/88 (108) 98 08/02/17 11:11 97.7 87 24 134/89 (104) 98 08/02/17 07:35 97.5 85 20 130/80 (97) 96 08/02/17 04:59 97.9 91 18 118/80 (93) 97 08/02/17 01:12 97.9 87 18 127/86 (100) 97 08/01/17 23:03 97.9 94 18 140/84 (102) 97 08/01/17 22:26 08/01/17 20:49 95 18 124/85 (98) 98 I/O 3/15/18 3/08/01/17 08/02/17 08/02/17 08/02/17 07:00 15:00 23:00 07:00 15:00 23:00 Intake Total 100 ml 50 ml Balance 100 ml 50 ml Intake IV Total 100 ml 50 ml # Voids 0 # Bowel Movements 0 Imaging Last Impressions Abdomen/Pelvis CT 08/01/17 174 Signed Impressions: Service Date/Time: July 19:02 - CONCLUSION: 1. Mild, generalized colitis, nonspecific but most likely infectious or inflammatory. Also a large amount of colonic stool throughout. 2. Cirrhosis again seen. Small ascites, increased. 3. No change biliary air and pancreatic duct dilatation. 4. No change nonobstructing stone lower pole of the left kidney. 5. Previous splenectomy. 6. Reported cholecystectomy but a gallbladder like structure is seen along the inferior margin of the liver Mele Shelton MD Laboratory Test 08/01/17 17:55 08/02/17 06:05 White Blood Count 8.7 TH/MM3 12.2 TH/MM3 Red Blood Count 4.15 MIL/MM3 4.07 MIL/MM3 Hemoglobin 11.8 GM/DL 11.4 GM/DL Hematocrit 36.0 % 34.3 % Mean Corpuscular Volume 86.7 FL 84.2 FL Mean Corpuscular Hemoglobin 28.3 PG 28.0 PG Mean Corpuscular Hemoglobin Concent 32.6 % 33.2 % Red Cell Distribution Width 17.0 % 16.5 % Platelet Count 258 TH/MM3 261 TH/MM3 Mean Platelet Volume 12.3 FL 11.6 FL CBC Comment AUTO DIFF AUTO DIFF Differential Total Cells Counted 100 100 Neutrophils % (Manual) 69 % 77 % Band Neutrophils % 7 % 3 % Lymphocytes % 12 % 9 % Monocytes % 12 % 7 % Neutrophils # (Manual) 6.6 TH/MM3 10.0 TH/MM3 Differential Comment FINAL DIFF MANUAL FINAL DIFF MANUAL Platelet Estimate NORMAL NORMAL Platelet Morphology Comment ENLARGED ENLARGED Target Cells 1+ 2+ Blood Urea Nitrogen 6 MG/DL 5 MG/DL Creatinine 0.52 MG/DL 0.28 MG/DL Random Glucose 391 MG/DL 133 MG/DL Total Protein 6.4 GM/DL 6.0 GM/DL Albumin 1.9 GM/DL 1.8 GM/DL Calcium Level 8.0 MG/DL 8.1 MG/DL Alkaline Phosphatase 1470 U/L 1384 U/L Aspartate Amino Transf (AST/SGOT) 174 U/L 165 U/L Alanine Aminotransferase (ALT/SGPT) 122 U/L 113 U/L Total Bilirubin 2.5 MG/DL 2.4 MG/DL Sodium Level 138 MEQ/L 142 MEQ/L Potassium Level 3.9 MEQ/L 3.2 MEQ/L Chloride Level 103 MEQ/L 106 MEQ/L Carbon Dioxide Level 24.6 MEQ/L 26.6 MEQ/L Anion Gap 10 MEQ/L 9 MEQ/L Estimat Glomerular Filtration Rate 126 ML/MIN 258 ML/MIN Lipase 76 U/L Eosinophils % 1 % Basophils % 1 % Metamyelocytes 1 % Myelocytes 1 % [place] Bodies PRESENT Physical Examination HEENT: Pupils round and reactive to light; normocephalic; atraumatic; NECK: Neck supple and thin CHEST: Chest is clear no audible wheezing CARDIAC: Regular rate and rhythm ABDOMEN: Semi-firm,distended and taut, no hepato generalized diffuse tenderness bowel sounds minimal EXTREMITIES: No clubbing, cyanosis, or edema. SKIN: Normal; no rash; no jaundice. SPENT GRAIN DRYER: No focal deficits; alert and oriented times three. (Lola Levin) Assessment and Plan Assessment: (1) chronic anemia Status: Acute (2) hepatic cirrhosis/fibrosis/chronic hepatitis Status: Acute (3) abdominal pain, acute and chronic Status: Acute (4) Colitis ICD Codes: K52.9 - Noninfective gastroenteritis and colitis, unspecified Status: Acute (5) Liver disease, chronic, with cirrhosis ICD Codes: K74.60 - Unspecified cirrhosis of liver; K76.9 - Liver disease, unspecified Status: Chronic Plan Right upper quadrant pain associated with minimal bowel sounds, nausea, distention. Patient has history of sclerosing cholangitis. Small amount of ascites seen which has mildly increased since last x-ray. CT scan shows colitis, patient states green stools 24 hours ago. Onset of symptoms 3 weeks Current labs bilirubin 2.4, LFTs 165 AST, 113 ALT, hemoglobin 11.4, new leukocytosis today 12.2 Plan Diet clear liquids, advanced to heart healthy if tolerated Add Flagyl IV Continue Zosyn MRCP , R/O Obstruction. Measure Abd. girth and Bowel sounds Intake and Output. Consistency of Stools and amounts. Monitor labs Supportive care Patient was seen per sabraelf and Dr. Crawford, note is written on his behalf (Lola Levin) Physician Comments Agree with above assessment and plan. Will follow up with you. Thank you for the consult. (Junior Crawford MD) Lola Levin Aug 02, 2017 16:39 Junior Crawford MD Aug 03, 2017 22:34
[2017-08-02] MEDS: metroNIDAZOLE 250 MG INJ 50 ML IV SCH ×2 (17:00→22:33)
[2017-08-02] MEDS: POLYETHYLENE GLYCOL 17 GM PKG PO SCH (17:52)
[2017-08-02] MEDS: INSULIN DETEMIR 100 UNITS/ML VIAL SQ SCH ×2 (17:57→22:33)
[2017-08-02 18:01] LABS: BILIRUBIN, URINE SMALL (NEG); BLOOD, URINE NEG (NEG); CALCIUM OXALATE CRYSTALS,URINE RARE /hpf; GLUCOSE,URINE 1000 mg/dL (NEG); KETONE, URINE NEG (NEG); NITRITE,URINE NEG (NEG); SQUAMOUS EPITHELIAL CELL URINE 7 /hpf (0-5); URINE COLOR YELLOW (YELLW/STRAW); URINE LEUKOCYTE ESTERASE MOD (NEG)
--- NOTE | 2017-08-02 19:24 | RADRPT ---
EXAM DATE/TIME: 08/02/2017 18:13 [place] COMPARISON: CT ABDOMEN & PELVIS W CONTRAST, August 01, 2017, 19:02. CT ABDOMEN & PELVIS W CONTRAST, January 14 17, 14:53. INDICATIONS : Obstruction. MEDICAL HISTORY : Cirrhosis. Sclerosing cholangitis. SURGICAL HISTORY : Splenectomy. ENCOUNTER: Initial ACUITY: 1 week PAIN SCORE: 7/10 LOCATION: Abdomen TECHNIQUE: Multiplanar, multisequence magnetic resonance imaging of the abdomen was performed. High-resolution 3D dataset was utilized to reconstruct maximum-intensity projection (MIP) images. FINDINGS: Enlarged, nodular and diffusely heterogeneous liver present. No definite mass. There is small perihep atic ascites. There is mild, diffuse intrahepatic biliary distention with patchy air. No focal stenot ic areas are demonstrated. Common bile duct caliber within normal limits, roughly 4 mm at the distal ankit hepatis on series 2 image 21. There is suggestion for mild common bile duct wall thickening at this level. Contracted gallbladder. 8 mm, mildly irregular dilatation of the pancreatic duct within the tail and body. The portion within the head is not distended and appears of uniform caliber. The etiology of this is uncertain but has been present on multiple prior CTs. Don't convincingly see a pancreatic mass. CONCLUSION: 1. Mild intrahepatic biliary prominence, presumably on the basis of sclerosing cholangitis. No well-d efined stenotic areas of the biliary tree are seen. Questionable mild wall thickening of the distal c ommon bile duct. 2. Enlarged, nodular and extremely heterogeneous liver with small perihepatic ascites. 3. Contracted gallbladder. No stones are seen. 4. Nonspecific but chronic appearing dilatation of the pancreatic duct within the tail and body. Mele Shelton MD on August 02, 2017 at 19:16 Board Certified Radiologist. This report was verified electronically.
[2017-08-02] MEDS: ONDANSETRON HCL 4 MG/2 ML VIAL IVP PRN (21:01)
[2017-08-03] MEDS: HYDROmorphone HCL PF 2 MG/ML VIAL IV PUSH PRN ×6 (00:23→23:41)
[2017-08-03] MEDS: PIPERACIL-TAZO 3.375 GM PREMIX 50 ML IV SCH ×3 (02:04→12:39)
[2017-08-03 03:31] VITALS: BP 143/87; PULSE 83; RESP 18; TEMP 97.8; O2SAT 98
[2017-08-03] MEDS: metroNIDAZOLE 250 MG INJ 50 ML IV SCH ×3 (05:33→16:59)
[2017-08-03 08:00] VITALS: BP 122/75; PULSE 82; RESP 19; TEMP 98; O2SAT 96
[2017-08-03] MEDS: INSULIN ASPART SUPPLEMENTAL SCALE SQ SCH ×4 (08:00→22:47)
--- NOTE | 2017-08-03 08:47 | HHI.GIFU ---
Subjective Remarks Awake head of bed elevated, responsive States she feels about the same, abdominal bloating and pressure Able to tolerate clear liquids Afebrile (Lola Levin) Objective Vitals I&O Vital Signs Date Time Temp Pulse Resp B/P (MAP) Pulse Ox O2 Delivery O2 Flow Rate FiO2 08/03/17 03:31 97.8 83 18 143/87 (105) 98 08/02/17 23:44 97.7 85 18 131/85 (100) 99 08/02/17 20:12 98.0 79 18 135/83 (100) 98 08/02/17 15:08 97.7 81 20 148/88 (108) 98 08/02/17 11:11 97.7 87 24 134/89 (104) 98 I/O 08/02/17 08/02/17 08/02/17 08/03/17 08/03/17 08/03/17 07:00 15:00 23:00 07:00 15:00 23:00 Intake Total 50 ml 200 ml 250 ml Balance 50 ml 200 ml 250 ml Intake IV Total 50 ml 200 ml 250 ml # Voids 0 # Bowel Movements 0 Laboratory Laboratory Tests Test 08/02/17 17:40 Urine Color YELLOW Urine Turbidity HAZY Urine pH 7.0 Urine Specific [place] 1.016 Urine Protein TRACE Urine Glucose (UA) 1000 Urine Ketones NEG Urine Occult Blood NEG Urine Nitrite NEG Urine Bilirubin SMALL Urine Urobilinogen LESS THAN 2.0 Urine Leukocyte Esterase MOD Urine WBC 5 Urine Squamous Epithelial Cells 7 Urine Calcium Oxalate Crystals RARE Microscopic Urinalysis Comment CULT NOT INDICATED Imaging Last Impressions Cholangiopancreatography MRI 08/02/17 0000 Signed Impressions: Service Date/Time: Wednesday, August 02, 2017 18:13 - CONCLUSION: 1. Mild intrahepatic biliary prominence, presumably on the basis of sclerosing cholangitis. No well-defined stenotic areas of the biliary tree are seen. Questionable mild wall thickening of the distal common bile duct. 2. Enlarged, nodular and extremely heterogeneous liver with small perihepatic ascites. 3. Contracted gallbladder. No stones are seen. 4. Nonspecific but chronic appearing dilatation of the pancreatic duct within the tail and body. Mele Shelton MD Abdomen/Pelvis CT 08/01/17 1740 Signed Impressions: Service Date/Time: July 19:02 - CONCLUSION: 1. Mild, generalized colitis, nonspecific but most likely infectious or inflammatory. Also a large amount of colonic stool throughout. 2. Cirrhosis again seen. Small ascites, increased. 3. No change biliary air and pancreatic duct dilatation. 4. No change nonobstructing stone lower pole of the left kidney. 5. Previous splenectomy. 6. Reported cholecystectomy but a gallbladder like structure is seen along the inferior margin of the liver Mele Shelton MD Physical Exam HEENT: Pupils round and reactive to light; normocephalic, thin frail cheekbones NECK: Neck is thin CHEST: Chest is clear no obvious rhonchi CARDIAC: Regular rate and rhythm ABDOMEN: Mild to moderate distention, taut, mild diffuse tenderness, bowel sounds soft EXTREMITIES: No clubbing, cyanosis, or edema. SKIN: Thin turgor COUNSELOR DORMITORY: alert and oriented times three. Responds appropriately (Lola Levin) Assessment and Plan Assessment: (1) chronic anemia Status: Acute (2) hepatic cirrhosis/fibrosis/chronic hepatitis Status: Acute (3) abdominal pain, acute and chronic Status: Acute (4) Colitis ICD Codes: K52.9 - Noninfective gastroenteritis and colitis, unspecified Status: Acute (5) Liver disease, chronic, with cirrhosis ICD Codes: K74.60 - Unspecified cirrhosis of liver; K76.9 - Liver disease, unspecified Status: Chronic Plan Right upper quadrant pain associated with minimal bowel sounds, nausea, distention. Patient has history of sclerosing cholangitis. Small amount of ascites seen which has mildly increased since last x-ray. CT scan shows colitis, patient states green stools 24 hours ago. Onset of symptoms 3 weeks Current labs bilirubin 2.4, LFTs 165 AST, 113 ALT, hemoglobin 11.4, new leukocytosis today 12.2 MRCP, 08/02/17, mild intra-hepatic biliary prominence bases of sclerosing cholangitis. No well-defined stenotic area of the biliary tree. Questionable mild wall thickening of the distal common bile duct. Enlarged nodular liver with small perihepatic ascites. Contracted gallbladder with no stones seen chronic with dilatation of the pancreatic duct within the tail and body. Abdominal girth measured this morning 85 cm. Explained to patient findings of MRCP, no stones seen. Plan Diet heart healthy, small amounts also had some outside food in room Flagyl IV Continue Zosyn Continue to measure Measure Abd. girth and Bowel sounds, Girth this a.m. 85 cm Monitor pain and symptoms such as fever, pain, nausea vomiting Intake and Output. Consistency of Stools and amounts. Monitor labs Further recommendations based on symptoms and findings. Supportive care, Patient was seen per myself and Dr. Crawford, note is written on his behalf (Lola Levin) Physician Comments Seen and examined, plan as above, will follow up with you. (Junior Crawford MD) Lola Levin Aug 03, 2017 08:47 Junior Crawford MD Aug 03, 2017 22:37
[2017-08-03] MEDS: POLYETHYLENE GLYCOL 17 GM PKG PO SCH (08:59)
[2017-08-03] MEDS: DOCUSATE SODIUM 50 MG/SENNA 8.6 MG TAB PO SCH ×2 (08:59→21:00)
[2017-08-03] MEDS: INSULIN DETEMIR 100 UNITS/ML VIAL SQ SCH ×2 (09:02→22:47)
[2017-08-03] MEDS: SODIUM CHLORIDE 0.9% FLUSH 10 ML FLUSH IV FLUSH SCH ×2 (09:02→22:46)
[2017-08-03 11:35] LABS: HEMATOCRIT 34.3 % (35.0-46.0); HEMOGLOBIN 11.3 GM/DL (11.6-15.3); MEAN CELL VOLUME 84.9 FL (80.0-100.0); MEAN CORPUSCULAR HGB CONC 32.9 % (32.0-36.0); MEAN PLATELET VOLUME 11.1 FL (7.0-11.0); PLATELET COUNT 290 TH/MM3 (150-450); RED BLOOD COUNT 4.04 MIL/MM3 (4.00-5.30); RED CELL DISTRIBUTION WIDTH 16.8 % (11.6-17.2); WHITE BLOOD COUNT 10.1 TH/MM3 (4.0-11.0)
[2017-08-03 12:00] VITALS: BP 125/69; PULSE 83; RESP 18; TEMP 98; O2SAT 95
[2017-08-03 12:10] LABS: ALBUMIN 1.9 GM/DL (3.4-5.0); BICARBONATE 29.3 MEQ/L (21.0-32.0); CALCIUM 8.1 MG/DL (8.5-10.1); CREATININE 0.35 MG/DL (0.50-1.00); DIRECT BILIRUBIN ADULT 1.8 MG/DL (0.0-0.2); MAGNESIUM 1.7 MG/DL (1.5-2.5)
[2017-08-03 12:25] LABS: INDIRECT BILIRUBIN 0.6 MG/DL (0.0-0.8); TOTAL BILIRUBIN ADULT 2.4 MG/DL (0.2-1.0); TOTAL PROTEIN 6.1 GM/DL (6.4-8.2)
[2017-08-03] MEDS ORDERED: POTASSIUM CHLORIDE 25 MEQ EFFERVESCENT TAB PO ONE (14:15)
--- NOTE | 2017-08-03 14:17 | HHI.PR ---
Subjective Remarks The pt was trying to eat a hamburger. She still complained of a lot of pain. She says she has not been able to move much s/t pain. Discussed with nursing. Objective Vitals Vital Signs Date Time Temp Pulse Resp B/P (MAP) Pulse Ox O2 Delivery O2 Flow Rate FiO2 08/03/17 12:00 98.0 83 18 125/69 (87) 95 08/03/17 08:00 98.0 82 19 122/75 (91) 96 08/03/17 03:31 97.8 83 18 143/87 (105) 98 08/02/17 23:44 97.7 85 18 131/85 (100) 99 08/02/17 20:12 98.0 79 18 135/83 (100) 98 08/02/17 15:08 97.7 81 20 148/88 (108) 98 I/O 08/02/17 08/02/17 08/02/17 08/03/17 08/03/17 08/03/17 07:00 15:00 23:00 07:00 15:00 23:00 Intake Total 50 ml 200 ml 250 ml Balance 50 ml 200 ml 250 ml Intake IV Total 50 ml 200 ml 250 ml # Voids 0 # Bowel Movements 0 Result Diagram: 08/03/17 1044 08/03/17 1044 Imaging Last Impressions Cholangiopancreatography MRI 08/02/17 0000 Signed Impressions: Service Date/Time: Wednesday, August 02, 2017 18:13 - CONCLUSION: 1. Mild intrahepatic biliary prominence, presumably on the basis of sclerosing cholangitis. No well-defined stenotic areas of the biliary tree are seen. Questionable mild wall thickening of the distal common bile duct. 2. Enlarged, nodular and extremely heterogeneous liver with small perihepatic ascites. 3. Contracted gallbladder. No stones are seen. 4. Nonspecific but chronic appearing dilatation of the pancreatic duct within the tail and body. Mele Shelton MD Abdomen/Pelvis CT 08/01/17 1748 Signed Impressions: Service Date/Time: July 19:02 - CONCLUSION: 1. Mild, generalized colitis, nonspecific but most likely infectious or inflammatory. Also a large amount of colonic stool throughout. 2. Cirrhosis again seen. Small ascites, increased. 3. No change biliary air and pancreatic duct dilatation. 4. No change nonobstructing stone lower pole of the left kidney. 5. Previous splenectomy. 6. Reported cholecystectomy but a gallbladder like structure is seen along the inferior margin of the liver Mele Shelton MD Objective Remarks GENERAL: Resting in bed, frail. SKIN: No rashes, ecchymoses or lesions. Cool and dry. HEAD: Atraumatic. Normocephalic. No temporal or scalp tenderness. EYES: Pupils equal round and reactive. Extraocular motions intact. No scleral icterus. No injection or drainage. ENT: Nose without bleeding, purulent drainage or septal hematoma. Throat without erythema, tonsillar hypertrophy or exudate. Uvula midline. Airway patent. NECK: Trachea midline. No JVD or lymphadenopathy. Supple, nontender, no meningeal signs. CARDIOVASCULAR: Regular rate and rhythm without murmurs, gallops, or rubs. RESPIRATORY: Clear to auscultation. Breath sounds equal bilaterally. No wheezes , rales, or rhonchi. GASTROINTESTINAL: Abdomen soft, distended. Tender to palpation in all 4 quadrants, worse in the right upper quadrant. Voluntary guarding. No peritoneal signs. MUSCULOSKELETAL: Extremities without clubbing, cyanosis, or edema. No joint tenderness, effusion, or edema noted. NEUROLOGICAL: Awake and alert. Cranial nerves II through XII intact. Motor and sensory grossly within normal limits. Normal speech. PSYCH: Slightly flattened affect. Medications and IVs Current Medications Medications (Trade) Dose Ordered Sig/Celso Route Start Time Stop Time Status Last Admin Piperacillin Sod/ Tazobactam Sod 50 ml @ 100 mls/hr Q6H IV 08/02/17 02:00 08/03/17 12:39 (Dilaudid Pf Inj) 1 mg Q4H PRN IV PUSH 08/02/17 00:00 08/03/17 10:06 (NS Flush) 2 ml UNSCH PRN IV FLUSH 08/01/17 20:45 (NS Flush) 2 ml BID IV FLUSH 08/01/17 21:00 08/03/17 09:02 (Zofran Inj) 4 mg Q6H PRN IVP 08/01/17 20:45 08/02/17 21:01 (Narcan Inj) 0.4 mg UNSCH PRN IV PUSH 08/01/17 20:45 (Tish-Colace) 1 tab BID PO 08/01/17 21:00 08/03/17 08:59 (Milk Of Magnesia Liq) 30 ml Q12H PRN PO 08/01/17 20:45 (Senokot) 17.2 mg Q12H PRN PO 08/01/17 20:45 (Dulcolax Supp) 10 mg DAILY PRN RECTAL 08/01/17 20:45 (Lactulose Liq) 30 ml DAILY PRN PO 08/01/17 20:45 (D50w (Vial) Inj) 50 ml UNSCH PRN IV PUSH 08/01/17 20:45 (Glucagon Inj) 1 mg UNSCH PRN OTHER 08/01/17 20:45 (NovoLOG SUPPLEMENTAL SCALE) 1 ACHS SLIDING SCALE SQ 08/01/17 21:00 08/02/17 22:33 (Miralax) 17 gm DAILY PO 08/02/17 15:45 08/03/17 08:59 (Levemir Inj) 5 units Q12HR SQ 08/02/17 15:45 08/03/17 09:02 Metronidazole 50 ml @ 100 mls/hr Q6H IV 08/02/17 17:00 08/03/17 12:38 Potassium Chloride 100 ml @ 100 mls/hr Q1H IV 08/03/17 13:45 08/03/17 17:44 A/P Assessment and Plan Abdominal pain/PSC/Strictures/Cirrhosis/Transaminitis/Colitis CT of the abdomen/pelvis shows mild colitis - cirrhosis at baseline, small ascites, no change in biliary air and pancreatic duct dilation, no change in nonobstructing left kidney stone. She has elevated LFTs, which is chronic. GI consult appreciated. MRCP showed: Mild intrahepatic biliary prominence, presumably on the basis of sclerosing cholangitis; No well-defined stenotic areas of the biliary tree are seen' Questionable mild wall thickening of the distal common bile duct; Enlarged, nodular and extremely heterogeneous liver with small perihepatic ascites; Contracted gallbladder; No stones are seen; Nonspecific but chronic appearing dilatation of the pancreatic duct within the tail and body. - Zosyn and Flagyl IV for now. - gastroenterology following. - Dilaudid for pain as patient states she is allergic to morphine and tramadol. Decrease dose. - antiemetics as needed. - bowel regimen. - Advanced to low residue diet. - PT. Diabetes mellitus Glucose has been elevated. - Holding home insulin. Start Levemir 5 units twice a day. Adjust as needed. - Sliding scale insulin. Decrease to low sliding scale. Hypokalemia S/t decreased PO intake. - replete and monitor. IV and PO repletion ordered 08/03. PPx: SCDs Discharge Planning Awaiting GI clearance Ayan Reece DO Aug 03, 2017 14:17
[2017-08-03] MEDS: POTASSIUM CHLOR 10 MEQ PREMIX 100 ML IV SCH ×4 (14:27→17:00)
[2017-08-03] MEDS ORDERED: HYDROmorphone HCL PF 1 MG/ML VIAL IV PUSH ONE (14:30)
[2017-08-03 16:00] VITALS: BP 138/83; PULSE 69; RESP 18; TEMP 97.6; O2SAT 96
[2017-08-03 20:18] VITALS: BP 135/80; PULSE 68; RESP 17; TEMP 98.3; O2SAT 97
[2017-08-03 23:06] VITALS: BP 143/90; PULSE 77; RESP 17; TEMP 98.4; O2SAT 96
[2017-08-03] MEDS: ONDANSETRON HCL 4 MG/2 ML VIAL IVP PRN (23:54)
[2017-08-04] MEDS: PIPERACIL-TAZO 3.375 GM PREMIX 50 ML IV SCH ×5 (00:25→22:20)
[2017-08-04] MEDS: metroNIDAZOLE 250 MG INJ 50 ML IV SCH ×3 (02:03→15:07)
[2017-08-04] MEDS: HYDROmorphone HCL PF 2 MG/ML VIAL IV PUSH PRN ×5 (03:16→22:20)
[2017-08-04 03:49] VITALS: BP 133/82; PULSE 73; RESP 16; TEMP 98; O2SAT 96
[2017-08-04 07:28] VITALS: BP 140/81; PULSE 73; RESP 16; TEMP 97.8; O2SAT 98
[2017-08-04] MEDS: INSULIN ASPART SUPPLEMENTAL SCALE SQ SCH ×4 (08:00→22:40)
[2017-08-04] MEDS: DOCUSATE SODIUM 50 MG/SENNA 8.6 MG TAB PO SCH ×2 (09:00→22:19)
[2017-08-04 09:07] LABS: HEMATOCRIT 34.8 % (35.0-46.0); HEMOGLOBIN 11.6 GM/DL (11.6-15.3); MEAN CELL VOLUME 83.8 FL (80.0-100.0); MEAN CORPUSCULAR HEMOGLOBIN 27.9 PG (27.0-34.0); MEAN CORPUSCULAR HGB CONC 33.3 % (32.0-36.0); MEAN PLATELET VOLUME 11.5 FL (7.0-11.0); PLATELET COUNT 320 TH/MM3 (150-450); RED BLOOD COUNT 4.15 MIL/MM3 (4.00-5.30); RED CELL DISTRIBUTION WIDTH 16.6 % (11.6-17.2); WHITE BLOOD COUNT 7.6 TH/MM3 (4.0-11.0)
[2017-08-04 09:14] LABS: ALBUMIN 1.7 GM/DL (3.4-5.0); ALT (GPT) 103 U/L (10-53); AST (GOT) 183 U/L (15-37); BICARBONATE 26.4 MEQ/L (21.0-32.0); BLOOD UREA NITROGEN 5 MG/DL (7-18); CALCIUM 8.1 MG/DL (8.5-10.1); CHLORIDE 108 MEQ/L (98-107); CREATININE 0.24 MG/DL (0.50-1.00); GLOMERULAR FILTRATION RATE 308 ML/MIN (>89); GLUCOSE,RANDOM 135 MG/DL (74-106); SODIUM (NA) 142 MEQ/L (136-145)
[2017-08-04] MEDS: SODIUM CHLORIDE 0.9% FLUSH 10 ML FLUSH IV FLUSH SCH ×2 (09:24→22:20)
[2017-08-04] MEDS: POLYETHYLENE GLYCOL 17 GM PKG PO SCH (09:24)
[2017-08-04] MEDS: INSULIN DETEMIR 100 UNITS/ML VIAL SQ SCH (09:25)
[2017-08-04 09:28] LABS: ALKALINE PHOSPHATASE 1396 U/L (45-117); TOTAL BILIRUBIN ADULT 2.1 MG/DL (0.2-1.0); TOTAL PROTEIN 5.6 GM/DL (6.4-8.2)
[2017-08-04 10:25] LABS: BANDS 10 % (0-6); BASOPHILS 2 % (0-2); LYMPHOCYTES 20 % (9-44); MONOCYTES 10 % (0-8); NEUTROPHIL # MANUAL DIFF 5.1 TH/MM3 (1.8-7.7); POLYS (SEG NEUTROPHILS) 57 % (16-70); TARGET CELLS 2+ (NORMAL)
--- NOTE | 2017-08-04 11:26 | HHI.GIFU ---
Subjective Remarks Still eating breakfast. + abd pain all over. No new complaints (Brionna Cisse) Objective Vitals I&O Vital Signs Date Time Temp Pulse Resp B/P (MAP) Pulse Ox O2 Delivery O2 Flow Rate FiO2 08/04/17 09:25 20 08/04/17 07:28 97.8 73 16 140/81 (100) 98 08/04/17 03:49 98.0 73 16 133/82 (99) 96 08/03/17 23:06 98.4 77 17 143/90 (107) 96 08/03/17 20:18 98.3 68 17 135/80 (98) 97 08/03/17 16:00 97.6 69 18 138/83 (101) 96 08/03/17 12:00 98.0 83 18 125/69 (87) 95 I/O 08/03/17 08/03/17 08/03/17 08/04/17 08/04/17 08/04/17 07:00 15:00 23:00 07:00 15:00 23:00 Intake Total 250 ml 480 ml 120 ml Balance 250 ml 480 ml 120 ml Intake Oral 480 ml 120 ml IV Total 250 ml # Voids 4 1 # Bowel Movements 0 Laboratory Laboratory Tests Test 08/04/17 08:20 White Blood Count 7.6 Red Blood Count 4.15 Hemoglobin 11.6 Hematocrit 34.8 Mean Corpuscular Volume 83.8 Mean Corpuscular Hemoglobin 27.9 Mean Corpuscular Hemoglobin Concent 33.3 Red Cell Distribution Width 16.6 Platelet Count 320 Mean Platelet Volume 11.5 CBC Comment AUTO DIFF Differential Total Cells Counted 100 Neutrophils % (Manual) 57 Band Neutrophils % 10 Lymphocytes % 20 Monocytes % 10 Eosinophils % 1 Basophils % 2 Neutrophils # (Manual) 5.1 Differential Comment FINAL DIFF MANUAL Platelet Estimate NORMAL Platelet Morphology Comment ENLARGED Target Cells 2+ Blood Urea Nitrogen 5 Creatinine 0.24 Random Glucose 135 Total Protein 5.6 Albumin 1.7 Calcium Level 8.1 Alkaline Phosphatase 1396 Aspartate Amino Transf (AST/SGOT) 183 Alanine Aminotransferase (ALT/SGPT) 103 Total Bilirubin 2.1 Sodium Level 142 Potassium Level 3.4 Chloride Level 108 Carbon Dioxide Level 26.4 Anion Gap 8 Estimat Glomerular Filtration Rate 308 Imaging Last Impressions Cholangiopancreatography MRI 08/02/17 0000 Signed Impressions: Service Date/Time: Wednesday, August 02, 2017 18:13 - CONCLUSION: 1. Mild intrahepatic biliary prominence, presumably on the basis of sclerosing cholangitis. No well-defined stenotic areas of the biliary tree are seen. Questionable mild wall thickening of the distal common bile duct. 2. Enlarged, nodular and extremely heterogeneous liver with small perihepatic ascites. 3. Contracted gallbladder. No stones are seen. 4. Nonspecific but chronic appearing dilatation of the pancreatic duct within the tail and body. Mele Shelton MD Abdomen/Pelvis CT 08/01/17 0077 Signed Impressions: Service Date/Time: July 19:02 - CONCLUSION: 1. Mild, generalized colitis, nonspecific but most likely infectious or inflammatory. Also a large amount of colonic stool throughout. 2. Cirrhosis again seen. Small ascites, increased. 3. No change biliary air and pancreatic duct dilatation. 4. No change nonobstructing stone lower pole of the left kidney. 5. Previous splenectomy. 6. Reported cholecystectomy but a gallbladder like structure is seen along the inferior margin of the liver Mele Shelton MD Physical Exam HEENT: Pupils round and reactive to light; normocephalic CHEST: CTA CARDIAC: RRR ABDOMEN: Mild distention, diffuse tenderness, bowel sounds soft EXTREMITIES: No clubbing, cyanosis, or edema. SKIN: Thin turgor ACTIVITY THERAPY SPECIALIST: alert and oriented times three. (Brionna Cisse [facility]) Assessment and Plan Assessment: (1) chronic anemia Status: Acute (2) hepatic cirrhosis/fibrosis/chronic hepatitis Status: Acute (3) abdominal pain, acute and chronic Status: Acute (4) Colitis ICD Codes: K52.9 - Noninfective gastroenteritis and colitis, unspecified Status: Acute (5) Liver disease, chronic, with cirrhosis ICD Codes: K74.60 - Unspecified cirrhosis of liver; K76.9 - Liver disease, unspecified Status: Chronic Plan Right upper quadrant pain associated with minimal bowel sounds, nausea, distention. Patient has history of sclerosing cholangitis. Small amount of ascites seen which has mildly increased since last x-ray. CT scan shows colitis, patient states green stools 24 hours ago. Onset of symptoms 3 weeks Current labs bilirubin 2.4, LFTs 165 AST, 113 ALT, hemoglobin 11.4, new leukocytosis today 12.2 MRCP, 08/02/17, mild intra-hepatic biliary prominence bases of sclerosing cholangitis. No well-defined stenotic area of the biliary tree. Questionable mild wall thickening of the distal common bile duct. Enlarged nodular liver with small perihepatic ascites. Contracted gallbladder with no stones seen chronic with dilatation of the pancreatic duct within the tail and body. Abdominal girth measured this morning 85 cm. Explained to patient findings of MRCP, no stones seen. 08/04/17 c/o abd pain no change but is tolerating her diet. LFTs stable Plan - heart healthy diet - abx - monitor labs - supportive care Patient was seen per myself and Dr. Crawford, note is written on his behalf (Brionna Cisse) Physician Comments Seen and examined, plan as above, had extensive d/w about her condition. Will follow up with you. (Junior Crawford MD) Brionna Cisse Aug 04, 2017 11:26 Junior Crawford MD Aug 04, 2017 12:41
[2017-08-04 13:20] VITALS: BP 141/81; PULSE 84; RESP 14; TEMP 98; O2SAT 98
[2017-08-04] MEDS: ONDANSETRON HCL 4 MG/2 ML VIAL IVP PRN (14:44)
[2017-08-04] MEDS ORDERED: POTASSIUM CHLORIDE 25 MEQ EFFERVESCENT TAB PO ONE (15:15)
--- NOTE | 2017-08-04 15:22 | HHI.PR ---
Subjective Remarks The patient said that her pain was still bad but tolerable on the current regimen. She mentioned that she was having green urine, which is new for her. She also mentions her bowel movements have been greenish in color. She has been ambulating. She has been taking small bites of food but has been nauseous. Discussed with nursing. Objective Vitals Vital Signs Date Time Temp Pulse Resp B/P (MAP) Pulse Ox O2 Delivery O2 Flow Rate FiO2 08/04/17 14:23 22 08/04/17 13:20 98.0 84 14 141/81 (101) 98 08/04/17 07:28 97.8 73 16 140/81 (100) 98 08/04/17 03:49 98.0 73 16 133/82 (99) 96 08/03/17 23:06 98.4 77 17 143/90 (107) 96 08/03/17 20:18 98.3 68 17 135/80 (98) 97 08/03/17 16:00 97.6 69 18 138/83 (101) 96 I/O 08/03/17 08/03/17 08/03/17 08/04/17 08/04/17 08/04/17 07:00 15:00 23:00 07:00 15:00 23:00 Intake Total 250 ml 480 ml 120 ml Balance 250 ml 480 ml 120 ml Intake Oral 480 ml 120 ml IV Total 250 ml # Voids 4 1 # Bowel Movements 0 Result Diagram: 08/04/17 0820 08/04/17 0820 Imaging Last Impressions Cholangiopancreatography MRI 08/02/17 0000 Signed Impressions: Service Date/Time: Wednesday, August 02, 2017 18:13 - CONCLUSION: 1. Mild intrahepatic biliary prominence, presumably on the basis of sclerosing cholangitis. No well-defined stenotic areas of the biliary tree are seen. Questionable mild wall thickening of the distal common bile duct. 2. Enlarged, nodular and extremely heterogeneous liver with small perihepatic ascites. 3. Contracted gallbladder. No stones are seen. 4. Nonspecific but chronic appearing dilatation of the pancreatic duct within the tail and body. Mele Shelton MD Abdomen/Pelvis CT 08/01/17 1748 Signed Impressions: Service Date/Time: July 19:02 - CONCLUSION: 1. Mild, generalized colitis, nonspecific but most likely infectious or inflammatory. Also a large amount of colonic stool throughout. 2. Cirrhosis again seen. Small ascites, increased. 3. No change biliary air and pancreatic duct dilatation. 4. No change nonobstructing stone lower pole of the left kidney. 5. Previous splenectomy. 6. Reported cholecystectomy but a gallbladder like structure is seen along the inferior margin of the liver Mele Shelton MD Objective Remarks GENERAL: Frail, no distress. SKIN: No rashes, ecchymoses or lesions. Cool and dry. HEAD: Atraumatic. Normocephalic. No temporal or scalp tenderness. EYES: Pupils equal round and reactive. Extraocular motions intact. No scleral icterus. No injection or drainage. ENT: Nose without bleeding, purulent drainage or septal hematoma. Throat without erythema, tonsillar hypertrophy or exudate. Uvula midline. Airway patent. NECK: Trachea midline. No JVD or lymphadenopathy. Supple, nontender, no meningeal signs. CARDIOVASCULAR: Regular rate and rhythm without murmurs, gallops, or rubs. RESPIRATORY: Clear to auscultation. Breath sounds equal bilaterally. No wheezes , rales, or rhonchi. GASTROINTESTINAL: Abdomen soft, distended. Tender to palpation in all 4 quadrants, worse in the right upper quadrant. Voluntary guarding. No peritoneal signs. MUSCULOSKELETAL: Extremities without clubbing, cyanosis, or edema. No joint tenderness, effusion, or edema noted. NEUROLOGICAL: Awake and alert. Cranial nerves II through XII intact. Motor and sensory grossly within normal limits. Normal speech. PSYCH: Slightly flattened affect. Medications and IVs Current Medications Medications (Trade) Dose Ordered Sig/Celso Route Start Time Stop Time Status Last Admin Piperacillin Sod/ Tazobactam Sod 50 ml @ 100 mls/hr Q6H IV 08/02/17 02:00 08/04/17 12:25 (NS Flush) 2 ml UNSCH PRN IV FLUSH 08/01/17 20:45 (NS Flush) 2 ml BID IV FLUSH 08/01/17 21:00 08/04/17 09:24 (Zofran Inj) 4 mg Q6H PRN IVP 08/01/17 20:45 08/04/17 14:44 (Narcan Inj) 0.4 mg UNSCH PRN IV PUSH 08/01/17 20:45 (Tish-Colace) 1 tab BID PO 08/01/17 21:00 08/03/17 08:59 (Milk Of Magnesia Liq) 30 ml Q12H PRN PO 08/01/17 20:45 (Senokot) 17.2 mg Q12H PRN PO 08/01/17 20:45 (Dulcolax Supp) 10 mg DAILY PRN RECTAL 08/01/17 20:45 (Lactulose Liq) 30 ml DAILY PRN PO 08/01/17 20:45 (D50w (Vial) Inj) 50 ml UNSCH PRN IV PUSH 08/01/17 20:45 (Glucagon Inj) 1 mg UNSCH PRN OTHER 08/01/17 20:45 (Miralax) 17 gm DAILY PO 08/02/17 15:45 08/04/17 09:24 (Levemir Inj) 5 units Q12HR SQ 08/02/17 15:45 08/04/17 09:25 Metronidazole 50 ml @ 100 mls/hr Q6H IV 08/02/17 17:00 08/04/17 15:07 (Dilaudid Pf Inj) 0.5 mg Q4H PRN IV PUSH 08/03/17 16:00 08/04/17 12:24 (NovoLOG SUPPLEMENTAL SCALE) 1 ACHS SLIDING SCALE SQ 08/03/17 17:00 08/03/17 22:47 A/P Assessment and Plan Abdominal pain/PSC/Strictures/Cirrhosis/Transaminitis/Colitis CT of the abdomen/pelvis shows mild colitis - cirrhosis at baseline, small ascites, no change in biliary air and pancreatic duct dilation, no change in nonobstructing left kidney stone. She has elevated LFTs, which is chronic. GI consult appreciated. MRCP showed: Mild intrahepatic biliary prominence, presumably on the basis of sclerosing cholangitis; No well-defined stenotic areas of the biliary tree are seen' Questionable mild wall thickening of the distal common bile duct; Enlarged, nodular and extremely heterogeneous liver with small perihepatic ascites; Contracted gallbladder; No stones are seen; Nonspecific but chronic appearing dilatation of the pancreatic duct within the tail and body. - Zosyn and Flagyl IV for now. - gastroenterology following. - Dilaudid for pain as patient states she is allergic to morphine and tramadol. Decrease dose. - antiemetics as needed. - bowel regimen. - Advanced to low residue diet. - PT. - check enteric stool culture, o+p. Abnormal urine The pt reports green urine. - repeat UA. - continue antibiotics. Diabetes mellitus Glucose has been elevated. - Holding home insulin. Decrease Levemir to 5 units daily s/t decreased PO intake. Adjust as needed. - Sliding scale insulin. Decrease to low sliding scale. Hypokalemia S/t decreased PO intake. - replete and monitor. PPx: SCDs Discharge Planning Awaiting GI clearance Ayan Reece DO Aug 04, 2017 15:21
[2017-08-04 16:21] VITALS: BP 137/73; PULSE 83; RESP 14; TEMP 97.6; O2SAT 98
[2017-08-04 20:46] VITALS: BP 131/87; PULSE 78; RESP 18; TEMP 98.2; O2SAT 99
[2017-08-05] MEDS: metroNIDAZOLE 250 MG INJ 50 ML IV SCH ×4 (01:07→16:03)
[2017-08-05] MEDS: HYDROmorphone HCL PF 2 MG/ML VIAL IV PUSH PRN ×6 (01:55→22:57)
[2017-08-05] MEDS: PIPERACIL-TAZO 3.375 GM PREMIX 50 ML IV SCH ×4 (03:32→22:56)
[2017-08-05 08:23] VITALS: BP 126/79; PULSE 76; RESP 20; TEMP 98.1; O2SAT 98
[2017-08-05] MEDS: INSULIN ASPART SUPPLEMENTAL SCALE SQ SCH ×4 (09:27→22:57)
[2017-08-05] MEDS: SODIUM CHLORIDE 0.9% FLUSH 10 ML FLUSH IV FLUSH SCH ×2 (09:27→22:56)
[2017-08-05] MEDS: INSULIN DETEMIR 100 UNITS/ML VIAL SQ SCH (09:27)
[2017-08-05] MEDS: POLYETHYLENE GLYCOL 17 GM PKG PO SCH (09:28)
[2017-08-05] MEDS: DOCUSATE SODIUM 50 MG/SENNA 8.6 MG TAB PO SCH ×3 (09:28→22:27)
--- NOTE | 2017-08-05 10:24 | HHI.PR ---
Subjective Remarks The patient was trying to tolerate food. She was still complaining of continued pain. She said her urine was still green. Discussed with nursing. Objective Vitals Vital Signs Date Time Temp Pulse Resp B/P (MAP) Pulse Ox O2 Delivery O2 Flow Rate FiO2 08/05/17 08:23 98.1 76 20 126/79 (95) 98 08/04/17 20:46 98.2 78 18 131/87 (102) 99 08/04/17 17:24 20 08/04/17 16:21 97.6 83 14 137/73 (94) 98 08/04/17 13:20 98.0 84 14 141/81 (101) 98 I/O 08/04/17 08/04/17 08/04/17 08/05/17 08/05/17 08/05/17 07:00 15:00 23:00 07:00 15:00 23:00 Intake Total 120 ml Balance 120 ml Intake Oral 120 ml # Voids 1 Result Diagram: 08/04/17 0820 08/04/17 0820 Imaging Last Impressions Cholangiopancreatography MRI 08/02/17 0000 Signed Impressions: Service Date/Time: Wednesday, August 02, 2017 18:13 - CONCLUSION: 1. Mild intrahepatic biliary prominence, presumably on the basis of sclerosing cholangitis. No well-defined stenotic areas of the biliary tree are seen. Questionable mild wall thickening of the distal common bile duct. 2. Enlarged, nodular and extremely heterogeneous liver with small perihepatic ascites. 3. Contracted gallbladder. No stones are seen. 4. Nonspecific but chronic appearing dilatation of the pancreatic duct within the tail and body. Mele Shelton MD Abdomen/Pelvis CT 08/01/17 1748 Signed Impressions: Service Date/Time: July 19:02 - CONCLUSION: 1. Mild, generalized colitis, nonspecific but most likely infectious or inflammatory. Also a large amount of colonic stool throughout. 2. Cirrhosis again seen. Small ascites, increased. 3. No change biliary air and pancreatic duct dilatation. 4. No change nonobstructing stone lower pole of the left kidney. 5. Previous splenectomy. 6. Reported cholecystectomy but a gallbladder like structure is seen along the inferior margin of the liver Mele Shelton MD Objective Remarks GENERAL: Frail, no distress. SKIN: No rashes, ecchymoses or lesions. Cool and dry. HEAD: Atraumatic. Normocephalic. No temporal or scalp tenderness. EYES: Pupils equal round and reactive. Extraocular motions intact. No scleral icterus. No injection or drainage. ENT: Nose without bleeding, purulent drainage or septal hematoma. Throat without erythema, tonsillar hypertrophy or exudate. Uvula midline. Airway patent. NECK: Trachea midline. No JVD or lymphadenopathy. Supple, nontender, no meningeal signs. CARDIOVASCULAR: Regular rate and rhythm without murmurs, gallops, or rubs. RESPIRATORY: Clear to auscultation. Breath sounds equal bilaterally. No wheezes , rales, or rhonchi. GASTROINTESTINAL: Abdomen soft, distended. Tender to palpation in all 4 quadrants, worse in the right upper quadrant and epigastric area. Voluntary guarding. No peritoneal signs. MUSCULOSKELETAL: Extremities without clubbing, cyanosis, or edema. No joint tenderness, effusion, or edema noted. NEUROLOGICAL: Awake and alert. Cranial nerves II through XII intact. Motor and sensory grossly within normal limits. Normal speech. PSYCH: Slightly flattened affect. Medications and IVs Current Medications Medications (Trade) Dose Ordered Sig/Celso Route Start Time Stop Time Status Last Admin Piperacillin Sod/ Tazobactam Sod 50 ml @ 100 mls/hr Q6H IV 08/02/17 02:00 08/05/17 04:05 (NS Flush) 2 ml UNSCH PRN IV FLUSH 08/01/17 20:45 (NS Flush) 2 ml BID IV FLUSH 08/01/17 21:00 08/05/17 09:27 (Zofran Inj) 4 mg Q6H PRN IVP 08/01/17 20:45 08/04/17 14:44 (Narcan Inj) 0.4 mg UNSCH PRN IV PUSH 08/01/17 20:45 (Tish-Colace) 1 tab BID PO 08/01/17 21:00 08/04/17 22:19 (Milk Of Magnesia Liq) 30 ml Q12H PRN PO 08/01/17 20:45 (Senokot) 17.2 mg Q12H PRN PO 08/01/17 20:45 (Dulcolax Supp) 10 mg DAILY PRN RECTAL 08/01/17 20:45 (Lactulose Liq) 30 ml DAILY PRN PO 08/01/17 20:45 (D50w (Vial) Inj) 50 ml UNSCH PRN IV PUSH 08/01/17 20:45 (Glucagon Inj) 1 mg UNSCH PRN OTHER 08/01/17 20:45 (Miralax) 17 gm DAILY PO 08/02/17 15:45 08/04/17 09:24 (Dilaudid Pf Inj) 0.5 mg Q4H PRN IV PUSH 08/03/17 16:00 08/05/17 09:27 (NovoLOG SUPPLEMENTAL SCALE) 1 ACHS SLIDING SCALE SQ 08/03/17 17:00 08/05/17 09:27 (Levemir Inj) 5 units DAILY SQ 08/05/17 09:00 08/05/17 09:27 Metronidazole 50 ml @ 100 mls/hr Q6H IV 08/04/17 21:00 08/05/17 04:44 A/P Assessment and Plan Abdominal pain/PSC/Strictures/Cirrhosis/Transaminitis/Colitis CT of the abdomen/pelvis shows mild colitis - cirrhosis at baseline, small ascites, no change in biliary air and pancreatic duct dilation, no change in nonobstructing left kidney stone. She has elevated LFTs, which is chronic. GI consult appreciated. MRCP showed: Mild intrahepatic biliary prominence, presumably on the basis of sclerosing cholangitis; No well-defined stenotic areas of the biliary tree are seen' Questionable mild wall thickening of the distal common bile duct; Enlarged, nodular and extremely heterogeneous liver with small perihepatic ascites; Contracted gallbladder; No stones are seen; Nonspecific but chronic appearing dilatation of the pancreatic duct within the tail and body. - Zosyn and Flagyl IV for now. - gastroenterology following. - Dilaudid for pain as patient states she is allergic to morphine and tramadol. Decrease dose. Palliative care has been consulted for assistance with pain management. - antiemetics as needed. - bowel regimen. - Advanced to low residue diet. - PT. - check enteric stool culture, o+p. Abnormal urine The pt reports green urine. - repeat UA. - continue antibiotics. Diabetes mellitus Glucose fluctuates. - Holding home insulin. Decrease Levemir to 5 units daily s/t decreased PO intake. Adjust as needed. - Sliding scale insulin. Decrease to low sliding scale. Hypokalemia S/t decreased PO intake. - replete and monitor. PPx: SCDs Discharge Planning Awaiting palliative care eval for pain management. D/c when pain controlled and cleared by Ayan Metzger DO Aug 05, 2017 10:24
[2017-08-05 11:35] VITALS: BP 123/76; PULSE 74; RESP 20; TEMP 98; O2SAT 96
[2017-08-05 12:29] LABS: ALBUMIN 1.8 GM/DL (3.4-5.0); ALKALINE PHOSPHATASE 1367 U/L (45-117); ALT (GPT) 95 U/L (10-53); AST (GOT) 150 U/L (15-37); BICARBONATE 25.3 MEQ/L (21.0-32.0); BLOOD UREA NITROGEN 6 MG/DL (7-18); CALCIUM 8.2 MG/DL (8.5-10.1); CHLORIDE 104 MEQ/L (98-107); CREATININE 0.42 MG/DL (0.50-1.00); GLOMERULAR FILTRATION RATE 162 ML/MIN (>89); GLUCOSE,RANDOM 311 MG/DL (74-106); SODIUM (NA) 139 MEQ/L (136-145); TOTAL BILIRUBIN ADULT 2.2 MG/DL (0.2-1.0)
--- NOTE | 2017-08-05 15:08 | PD.CONS ---
Consult Service Palliative Care Consult Requested By Dr. Reece . Primary Care Physician Gilmar Matos DO . Reason for Consultation a. To assist with evaluation and management of symptoms including: Pain b. To assist medical decision maker(s) with: better understanding of current medical conditions; weighing benefits/burdens of medical treatment options; making medical treatment decisions. . HPI History of Present Illness This 47-year-old female, with a history of sclerosing cholangitis, presented to the hospital again on 08/01/17 because of abdominal pain. This is the NINTH presentation to the emergency department in 2018 because of abdominal pain. The patient has had numerous hospitalizations at this facility and at other facilities, and she reports that she was evaluated at [facility] earlier this year in their liver transplant program, and says she was told that her "MELD score was only 11 and I am not sick enough for a transplant." The patient now presented to the emergency department, and findings there are initially included : * Moderate pain, alert * Temp 98.5, pulse 99, respirations 16, blood pressure 126/89, oxygen saturation 99% on room air * White count 8.7, hemoglobin 11.8 * Sodium 138, creatinine 0.52, albumin 1.9 * AST 174, ALT 122, alkaline phosphatase 1470, bilirubin 2.5 * CT abdomen/pelvis consistent with diffuse colitis, ascites, and the previously noted cirrhosis. The patient was admitted, antibiotics were initiated, and pain medicine was provided. The patient currently has an order for hydromorphone 0.5 mg IV every 4 hours PRN for pain, and she has been receiving 4-6 doses per 24 hours. She says that does keep her pain reasonably well controlled. Her pain when she is not in the hospital is fairly continuous, mostly epigastric and right flank, and not affected by movement. She is not sure if eating certain foods may make the pain worse. She spends most of her day each day with a heating pad "because it relaxes me" and sitting or lying in her bed; she says she has lost about 20 pounds over the past year. She has a primary care doctor locally, but she reports that her doctor does not prescribe pain medicine for her. She has not seen a pain management physician. She reports difficulty taking most opiates: Morphine "made me pass out," fentanyl "made me short of breath, and "oxycodone and hydrocodone "made me short of breath and itchy," and she also could not take tramadol. She is able to take parenteral Dilaudid, but that seems to be the only opiate that does not cause problems for her. Palliative Care was consulted to assist with her pain management during this hospitalization. . Function/Cognitive Trajectory The patient remains mentally alert and aware. She does think she has lost about 20 pounds over the past year, and she is weaker. She spends the majority of her time in bed at home. . Review of Systems Constitutional: COMPLAINS OF: Weight loss Endocrine: DENIES: Polyuria Eyes: DENIES: Eye inflammation Ears, nose, mouth, throat: DENIES: Epistaxis Respiratory: DENIES: Cough, Shortness of breath Cardiovascular: DENIES: Chest pain, Syncope Gastrointestinal: COMPLAINS OF: Abdominal pain (Chronic, with exacerbations), DENIES: Black stools, Bloody stools, Constipation, Diarrhea, Vomiting, Vomiting blood Genitourinary: DENIES: Hematuria Musculoskeletal: DENIES: Back pain, Neck pain Integumentary: DENIES: Rash Hematologic/Lymphatics: DENIES: Lymphadenopathy Immunologic/Allergic: DENIES: Urticaria Neurologic: DENIES: Localized weakness, Seizures Psychiatric: DENIES: Hallucinations, Agitation Past Family Social History Coded Allergies: fentanyl (Verified Allergy, Severe, SOB, 08/01/17) gadobenic acid (Verified Allergy, Severe, BREATHING PROBLEMS, N/V,CHILLS, 08/01/17) gadodiamide (Verified Allergy, Severe, BREATHING PROBLEMS, N/V,CHILLS, ) gadoteridol (Verified Allergy, Severe, BREATHING PROBLEMS, N/V,CHILLS, ) ketorolac (Verified Allergy, Severe, Shortness of Breath, 08/01/17) morphine (Verified Allergy, Severe, SOB, 08/01/17) tramadol (Verified Allergy, Mild, Shortness of Breath, 08/01/17) Gadolinium-Containing Contrast Medi (Verified Adverse Reaction, Severe, nauseas /vomiting, 08/01/17) MRI PRECAUTION (Verified Adverse Reaction, Severe, NAUSEA; PER PATIENT IT IS A GADOLINIUM ALLERGY KMD 11/25/12, 08/01/17) Past Medical History * Abdominal pain, chronic, with exacerbations * Primary sclerosing cholangitis * Hepatic cirrhosis/fibrosis/chronic hepatitis * Chronic anemia * History of non-Hodgkin's lymphoma 2004, no known residual disease * Recurrent sepsis/cholangitis episodes * Nonfunctioning gallbladder on scans * Diabetes * Nephrolithiasis . Past Surgical History * Liver biopsy * Multiple ERCP procedures with stent placements * Splenectomy 2004 * Biliary drain * Lithotripsy . Reported Medications Reported Meds & Active Scripts Active Reported Lantus Inj (Insulin Glargine) 1,000 Unit/10 Ml Vial 35 Units SQ HS Humalog Inj (Insulin Human Lispro) 1,000 Unit/10 Ml Vial 8 Units SQ TID Max dose at bedtime:( )units; sugars< 70,(0)units; sugars 150-199,(1)unit; sugars 200-249,(3)units; sugars 250-299,(5)units; sugars 300-349,(7)units; sugars more than 349,(9)units. . Current Medications Medications (Trade) Dose Ordered Sig/Celso Route Start Time Stop Time Status Last Admin Piperacillin Sod/ Tazobactam Sod 50 ml @ 100 mls/hr Q6H IV 08/02/17 02:00 08/05/17 14:02 (NS Flush) 2 ml UNSCH PRN IV FLUSH 08/01/17 20:45 (NS Flush) 2 ml BID IV FLUSH 08/01/17 21:00 08/05/17 09:27 (Zofran Inj) 4 mg Q6H PRN IVP 08/01/17 20:45 08/04/17 14:44 (Narcan Inj) 0.4 mg UNSCH PRN IV PUSH 08/01/17 20:45 (Tish-Colace) 1 tab BID PO 08/01/17 21:00 08/04/17 22:19 (Milk Of Magnesia Liq) 30 ml Q12H PRN PO 08/01/17 20:45 (Senokot) 17.2 mg Q12H PRN PO 08/01/17 20:45 (Dulcolax Supp) 10 mg DAILY PRN RECTAL 08/01/17 20:45 (Lactulose Liq) 30 ml DAILY PRN PO 08/01/17 20:45 (D50w (Vial) Inj) 50 ml UNSCH PRN IV PUSH 08/01/17 20:45 (Glucagon Inj) 1 mg UNSCH PRN OTHER 08/01/17 20:45 (Miralax) 17 gm DAILY PO 08/02/17 15:45 08/04/17 09:24 (Dilaudid Pf Inj) 0.5 mg Q4H PRN IV PUSH 08/03/17 16:00 08/05/17 14:01 (NovoLOG SUPPLEMENTAL SCALE) 1 ACHS SLIDING SCALE SQ 08/03/17 17:00 08/05/17 14:01 (Levemir Inj) 5 units DAILY SQ 08/05/17 09:00 08/05/17 09:27 Metronidazole 50 ml @ 100 mls/hr Q6H IV 08/04/17 21:00 08/05/17 04:44 Family History Father with coronary artery disease, and her mother of an [place] while in her 70s. There is no family history of chronic liver disease. . Substance Use Tobacco: None Alcohol: None Prescription med abuse: None Illicits: None . Psychosocial History The patient was born in [place], [place], and moved to [place] in 1984. She was once, several years ago. She currently lives in the home of a roommate, Doug German. The patient has 2 daughters, 23-year-old Aisha Peterson, and a 17-year-old. She worked as a banking services officer, a occupational therapist aide, and at the local [employer]. Currently , she is receiving disability payments due to her chronic illness. . Spiritual/Cultural Factors She has a Taoism background and has not wanted acoustic sensor operator visits here at the hospital. . Living Will: Never completed Health Care Surrogate: Copy in medical record Durable Power of [employer] Team Member: Never completed Date completed: 08/16/16 . Health Care Surrogate(s): Her daughter Aisha and her friend Doug German are co-HCS. . Today's verbally stated goals: The patient wants to continue aggressive care. She is hoping to get her pain managed and eventually looking toward some definitive treatment, perhaps transplant in the future. . Family/friends goals: The patient's friend Doug German supports her goals . Ethical and Legal Issues There are no ethical issues that would impact her care decision making at this time. The patient has capacity for decision-making. She has appointed her daughter and her friend Doug has co-HCS. . Physical Exam Vital Signs Date Time Temp Pulse Resp B/P (MAP) Pulse Ox O2 Delivery O2 Flow Rate FiO2 08/05/17 11:35 98.0 74 20 123/76 (92) 96 08/05/17 08:23 98.1 76 20 126/79 (95) 98 08/04/17 20:46 98.2 78 18 131/87 (102) 99 08/04/17 17:24 20 08/04/17 16:21 97.6 83 14 137/73 (94) 98 Exam CONSTITUTIONAL/GENERAL: This is an adequately nourished patient, in no apparent distress. She is eating lunch as we talk. TUBES/LINES/DRAINS: Peripheral IV SKIN: No jaundice, rashes, or lesions. Ecchymoses on upper extremities. No wounds seen anteriorly. Skin temperature appropriate. Not diaphoretic. HEAD: Atraumatic. Normocephalic. EYES: Pupils equal and round and reactive. Extraocular motions intact. No scleral icterus. No injection or drainage. Fundi not examined. ENT: Hearing grossly normal. Nose without bleeding or purulent drainage. Throat without visible erythema, exudates, masses, or lesions. NECK: Trachea midline. Supple, nontender. No palpable thyroid enlargement or nodularity. CARDIOVASCULAR: Regular rate and rhythm without murmurs, gallops, or rubs. No JVD. Peripheral pulses symmetric. RESPIRATORY/CHEST: Symmetric, unlabored respirations. Clear to auscultation. Breath sounds equal bilaterally. No wheezes, rales, or rhonchi. GASTROINTESTINAL: Abdomen soft, perhaps mildly distended. No hepato-splenomegaly , or palpable masses. There is mild generalized upper abdominal and right flank tenderness without guarding or rebound. Bowel sounds present. GENITOURINARY: Without palpable bladder distension. MUSCULOSKELETAL: Extremities without clubbing, cyanosis, or edema. No joint tenderness or effusion noted. No calf tenderness. No mottling or clubbing. LYMPHATICS: No palpable cervical or supraclavicular adenopathy. NEUROLOGICAL: Awake and alert. Motor and sensory grossly within normal limits. Follows commands. Cognitively sharp. Moves all extremities. PSYCHIATRIC: No obvious anxiety/depression. no apparent hallucinations or other psychotic thought process. . Diagnostic Tests Laboratory Laboratory Tests Test 08/02/17 17:40 08/03/17 10:44 08/04/17 08:20 08/05/17 10:51 Urine Color YELLOW (YELLW/STRAW) Urine Turbidity HAZY (CLEAR) Urine pH 7.0 (5.0-8.5) Urine Specific Brumley 1.016 (1.002-1.035) Urine Protein TRACE mg/dL (NEG-TRACE) Urine Glucose (UA) 1000 mg/dL (NEG) Urine Ketones NEG mg/dL (NEG) Urine Occult Blood NEG (NEG) Urine Nitrite NEG (NEG) Urine Bilirubin SMALL (NEG) Urine Urobilinogen LESS THAN 2.0 MG/DL (LESS Urine Leukocyte Esterase MOD (NEG) Urine WBC 5 /hpf (0-5) Urine Squamous Epithelial Cells 7 /hpf (0-5) Urine Calcium Oxalate Crystals RARE /hpf (NONE) Microscopic Urinalysis Comment CULT NOT INDICATED White Blood Count 10.1 TH/MM3 (4.0-11.0) 7.6 TH/MM3 (4.0-11.0) Red Blood Count 4.04 MIL/MM3 (4.00-5.30) 4.15 MIL/MM3 (4.00-5.30) Hemoglobin 11.3 GM/DL (11.6-15.3) 11.6 GM/DL (11.6-15.3) Hematocrit 34.3 % (35.0-46.0) 34.8 % (35.0-46.0) Mean Corpuscular Volume 84.9 FL (80.0-100.0) 83.8 FL (80.0-100.0) Mean Corpuscular Hemoglobin 28.0 PG (27.0-34.0) 27.9 PG (27.0-34.0) Mean Corpuscular Hemoglobin Concent 32.9 % (32.0-36.0) 33.3 % (32.0-36.0) Red Cell Distribution Width 16.8 % (11.6-17.2) 16.6 % (11.6-17.2) Platelet Count 290 TH/MM3 (150-450) 320 TH/MM3 (150-450) Mean Platelet Volume 11.1 FL (7.0-11.0) 11.5 FL (7.0-11.0) Blood Urea Nitrogen 8 MG/DL (7-18) 5 MG/DL (7-18) 6 MG/DL (7-18) Creatinine 0.35 MG/DL (0.50-1.00) 0.24 MG/DL (0.50-1.00) 0.42 MG/DL (0.50-1.00) Random Glucose 86 MG/DL (74-106) 135 MG/DL (74-106) 311 MG/DL (74-106) Total Protein 6.1 GM/DL (6.4-8.2) 5.6 GM/DL (6.4-8.2) 6.0 GM/DL (6.4-8.2) Albumin 1.9 GM/DL (3.4-5.0) 1.7 GM/DL (3.4-5.0) 1.8 GM/DL (3.4-5.0) Calcium Level 8.1 MG/DL (8.5-10.1) 8.1 MG/DL (8.5-10.1) 8.2 MG/DL (8.5-10.1) Magnesium Level 1.7 MG/DL (1.5-2.5) Alkaline Phosphatase 1374 U/L (45-117) 1396 U/L (45-117) 1367 U/L (45-117) Aspartate Amino Transf (AST/SGOT) 177 U/L (15-37) 183 U/L (15-37) 150 U/L (15-37) Alanine Aminotransferase (ALT/SGPT) 114 U/L (10-53) 103 U/L (10-53) 95 U/L (10-53) Total Bilirubin 2.4 MG/DL (0.2-1.0) 2.1 MG/DL (0.2-1.0) 2.2 MG/DL (0.2-1.0) Direct Bilirubin 1.8 MG/DL (0.0-0.2) Sodium Level 144 MEQ/L (136-145) 142 MEQ/L (136-145) 139 MEQ/L (136-145) Potassium Level 3.1 MEQ/L (3.5-5.1) 3.4 MEQ/L (3.5-5.1) 3.9 MEQ/L (3.5-5.1) Chloride Level 107 MEQ/L (98-107) 108 MEQ/L (98-107) 104 MEQ/L (98-107) Carbon Dioxide Level 29.3 MEQ/L (21.0-32.0) 26.4 MEQ/L (21.0-32.0) 25.3 MEQ/L (21.0-32.0) Anion Gap 8 MEQ/L (5-15) 8 MEQ/L (5-15) 10 MEQ/L (5-15) Estimat Glomerular Filtration Rate 200 ML/MIN (>89) 308 ML/MIN (>89) 162 ML/MIN (>89) Indirect Bilirubin 0.6 MG/DL (0.0-0.8) CBC Comment AUTO DIFF Differential Total Cells Counted 100 Neutrophils % (Manual) 57 % (16-70) Band Neutrophils % 10 % (0-6) Lymphocytes % 20 % (9-44) Monocytes % 10 % (0-8) Eosinophils % 1 % (0-4) Basophils % 2 % (0-2) Neutrophils # (Manual) 5.1 TH/MM3 (1.8-7.7) Differential Comment FINAL DIFF MANUAL Platelet Estimate NORMAL (NORMAL) Platelet Morphology Comment ENLARGED (NORMAL) Target Cells 2+ (NORMAL) Result Diagram: 08/04/17 0820 08/05/17 1051 Imaging Last Impressions Cholangiopancreatography MRI 08/02/17 0000 Signed Impressions: Service Date/Time: Wednesday, August 02, 2017 18:13 - CONCLUSION: 1. Mild intrahepatic biliary prominence, presumably on the basis of sclerosing cholangitis. No well-defined stenotic areas of the biliary tree are seen. Questionable mild wall thickening of the distal common bile duct. 2. Enlarged, nodular and extremely heterogeneous liver with small perihepatic ascites. 3. Contracted gallbladder. No stones are seen. 4. Nonspecific but chronic appearing dilatation of the pancreatic duct within the tail and body. Mele Shelton MD Abdomen/Pelvis CT 08/01/17 1748 Signed Impressions: Service Date/Time: July 19:02 - CONCLUSION: 1. Mild, generalized colitis, nonspecific but most likely infectious or inflammatory. Also a large amount of colonic stool throughout. 2. Cirrhosis again seen. Small ascites, increased. 3. No change biliary air and pancreatic duct dilatation. 4. No change nonobstructing stone lower pole of the left kidney. 5. Previous splenectomy. 6. Reported cholecystectomy but a gallbladder like structure is seen along the inferior margin of the liver Mele Shelton MD Patient/Family Conference Present at Family Conference: Patient's friend/HCS Doug German . Family Conference Time (mins): 42 Family Conference Location: Bedside Issues Discussed: * Palliative care role, purpose, approach * Additional medical, psychosocial, and spiritual history * Patients general health, functional status, and cognitive changes in the months leading up to the current hospitalization * Patient/family understanding of the current medical problems * Patient/family understanding of prognosis * Patients goals of care as best understood from advance directives and/or conversations and/or values * Current medical treatment options and benefits/burdens of those options * Likely scenarios comparing ongoing aggressive care with a transition to comfort measures only * Questions answered to the best of my ability * Palliative care contact information provided . Assessment and Plan Disease Oriented Problem List: (1) Abdominal pain, chronic, with exacerbations (2) Colitis on CT scan (3) Biliary strictures/obstruction, with sclerosing cholangitis (4) Non-Hodgkin's lymphoma 2004, no known residual disease (5) Hepatic cirrhosis/fibrosis/chronic hepatitis (6) Chronic anemia (7) Diabetes (8) Nephrolithiasis Symptom Scale: (1) pain 0-10 Scale: 4 (The parenteral Dilaudid does help for a few hours each time) Pertinent Non-Medical Issues Psychosocial: , lives with friend/roommate/HCS Spiritual: Taoism but does not desire acoustic sensor operator visit Legal: Patient has capacity for decision-making. She has designated her daughter and her friend/roommate as co-HCS. Ethical issues impacting care: No . Important Contacts Friend/roommate/HCS Doug German [phone] . Prognosis At the present time, the patient's prognosis is fair. Ultimately, as her hepatobiliary disease worsens, her prognosis will worsen.. . Code Status: Full Code Plan * FULL CODE * GOALS: She wants to continue aggressive care; eventually, when her hepatobiliary disease worsens, she would be open to considering transplant again. * SYMPTOMS: The patient has chronic abdominal pain, saying she has pain every day at home, but she has not been on any opiates at home. She deals with the pain thereby using a heating pad and relaxing. My recommendations at this time include: * Continue using the 0.5 mg hydromorphone PRN while in the hospital, as that does seem to be effective. We will presume that her acute pain will subside somewhat with current treatment and her pain level will return more to her chronic baseline pain. * I strongly recommend that she seek evaluation and treatment from a panel edge painter as an outpatient after she is discharged this time. * DECISION-MAKING: The patient has capacity for decision-making. Her daughter Aisha and her friend/roommate Doug co-HCS. * Palliative Care will follow the patient intermittently during this hospitalization. . Time Spent Total Floor Time (mins): 77 Face to Face Time (mins): 53 >50% Counseling/Coord of Care: Yes Thank you for the opportunity to participate in the care of Ms. Peterson. Attestation To help prompt me to consider important information that might be impacting today's encounter and assessment, information from prior notes written by myself or my colleagues may have been "brought forward" into today's note. My signature on this note, however, is an attestation that I personally performed the exam, history, and/or decision-making noted today, and, unless otherwise indicated, the interactions with patient, family, and staff as well as the review of records all occurred today. I also attest that the listed assessment and stated plan reflect my best clinical judgment today based on the combination of historical information, prior notes, and today's exam/ interactions. When time spent is documented, it refers only to time spent today by the signer, or if indicated, combined time spent today by collaborating physician/nurse practitioner. Denise Hewitt MD Aug 05, 2017 15:08
[2017-08-05 15:26] VITALS: BP 122/76; PULSE 91; RESP 20; TEMP 98.4; O2SAT 98
--- NOTE | 2017-08-05 15:30 | HHI.GIFU ---
Subjective Remarks Pt sitting on edge of bed, eating. She denies eating much but 1/2 her food is gone. abd pain unchanged. Objective Vitals I&O Vital Signs Date Time Temp Pulse Resp B/P (MAP) Pulse Ox O2 Delivery O2 Flow Rate FiO2 08/05/17 11:35 98.0 74 20 123/76 (92) 96 08/05/17 08:23 98.1 76 20 126/79 (95) 98 08/04/17 20:46 98.2 78 18 131/87 (102) 99 08/04/17 17:24 20 08/04/17 16:21 97.6 83 14 137/73 (94) 98 I/O 08/04/17 08/04/17 08/04/17 08/05/17 08/05/17 08/05/17 07:00 15:00 23:00 07:00 15:00 23:00 Intake Total 120 ml Balance 120 ml Intake Oral 120 ml # Voids 1 Laboratory Laboratory Tests Test 08/05/17 10:51 Blood Urea Nitrogen 6 Creatinine 0.42 Random Glucose 311 Total Protein 6.0 Albumin 1.8 Calcium Level 8.2 Alkaline Phosphatase 1367 Aspartate Amino Transf (AST/SGOT) 150 Alanine Aminotransferase (ALT/SGPT) 95 Total Bilirubin 2.2 Sodium Level 139 Potassium Level 3.9 Chloride Level 104 Carbon Dioxide Level 25.3 Anion Gap 10 Estimat Glomerular Filtration Rate 162 Imaging Last Impressions Cholangiopancreatography MRI 08/02/17 0000 Signed Impressions: Service Date/Time: Wednesday, August 02, 2017 18:13 - CONCLUSION: 1. Mild intrahepatic biliary prominence, presumably on the basis of sclerosing cholangitis. No well-defined stenotic areas of the biliary tree are seen. Questionable mild wall thickening of the distal common bile duct. 2. Enlarged, nodular and extremely heterogeneous liver with small perihepatic ascites. 3. Contracted gallbladder. No stones are seen. 4. Nonspecific but chronic appearing dilatation of the pancreatic duct within the tail and body. Mele Shelton MD Abdomen/Pelvis CT 08/01/17 5868 Signed Impressions: Service Date/Time: July 19:02 - CONCLUSION: 1. Mild, generalized colitis, nonspecific but most likely infectious or inflammatory. Also a large amount of colonic stool throughout. 2. Cirrhosis again seen. Small ascites, increased. 3. No change biliary air and pancreatic duct dilatation. 4. No change nonobstructing stone lower pole of the left kidney. 5. Previous splenectomy. 6. Reported cholecystectomy but a gallbladder like structure is seen along the inferior margin of the liver Mele Shelton MD Physical Exam HEENT: Pupils round and reactive to light; normocephalic CHEST: CTA CARDIAC: RRR ABDOMEN: semifirm, Mild distention, diffuse tenderness, bowel sounds soft EXTREMITIES: No clubbing, cyanosis, or edema. SKIN: normal VP EMERGING MEDIA: alert and oriented times three. Assessment and Plan Assessment: (1) chronic anemia Status: Acute (2) hepatic cirrhosis/fibrosis/chronic hepatitis Status: Acute (3) abdominal pain, acute and chronic Status: Acute (4) Colitis ICD Codes: K52.9 - Noninfective gastroenteritis and colitis, unspecified Status: Acute (5) Liver disease, chronic, with cirrhosis ICD Codes: K74.60 - Unspecified cirrhosis of liver; K76.9 - Liver disease, unspecified Status: Chronic Plan Right upper quadrant pain associated with minimal bowel sounds, nausea, distention. Patient has history of sclerosing cholangitis. Small amount of ascites seen which has mildly increased since last x-ray. CT scan shows colitis, patient states green stools 24 hours ago. Onset of symptoms 3 weeks Current labs bilirubin 2.4, LFTs 165 AST, 113 ALT, hemoglobin 11.4, new leukocytosis today 12.2 MRCP, 08/02/17, mild intra-hepatic biliary prominence bases of sclerosing cholangitis. No well-defined stenotic area of the biliary tree. Questionable mild wall thickening of the distal common bile duct. Enlarged nodular liver with small perihepatic ascites. Contracted gallbladder with no stones seen chronic with dilatation of the pancreatic duct within the tail and body. Abdominal girth measured this morning 85 cm. Explained to patient findings of MRCP, no stones seen. 08/04/17 c/o abd pain no change but is tolerating her diet. LFTs stable 08/05/17 abd pain unchanged. tolerating diet. LFTs stable. palliative care consulted, recommending pain mgmt Plan - heart healthy diet - monitor labs - supportive care - ok for d/c from GI standpoint - f/u with GI as outpt Patient was seen per myself and Dr. Israel and myself and this note is on her behalf Brionna Cisse Aug 05, 2017 15:30
--- NOTE | 2017-08-05 16:02 | HHI.GIFU ---
Subjective Remarks Pt sitting on side of bed Reports continued abdominal pain- starts in epigastric area and wraps around to right side Also complaining of some nausea, denies emesis Tolerating small amount of PO Complaining of green BMs, states they are loose Also complaining of worsening abdominal distention (Chelsea Henriquez) Objective Vitals I&O Vital Signs Date Time Temp Pulse Resp B/P (MAP) Pulse Ox O2 Delivery O2 Flow Rate FiO2 08/05/17 15:26 98.4 91 20 122/76 (91) 98 08/05/17 11:35 98.0 74 20 123/76 (92) 96 08/05/17 08:23 98.1 76 20 126/79 (95) 98 08/04/17 20:46 98.2 78 18 131/87 (102) 99 08/04/17 17:24 20 08/04/17 16:21 97.6 83 14 137/73 (94) 98 I/O 08/04/17 08/04/17 08/04/17 08/05/17 08/05/17 08/05/17 07:00 15:00 23:00 07:00 15:00 23:00 Intake Total 120 ml Balance 120 ml Intake Oral 120 ml # Voids 1 Laboratory Laboratory Tests Test 08/05/17 10:51 Blood Urea Nitrogen 6 Creatinine 0.42 Random Glucose 311 Total Protein 6.0 Albumin 1.8 Calcium Level 8.2 Alkaline Phosphatase 1367 Aspartate Amino Transf (AST/SGOT) 150 Alanine Aminotransferase (ALT/SGPT) 95 Total Bilirubin 2.2 Sodium Level 139 Potassium Level 3.9 Chloride Level 104 Carbon Dioxide Level 25.3 Anion Gap 10 Estimat Glomerular Filtration Rate 162 Imaging Last Impressions Cholangiopancreatography MRI 08/02/17 0000 Signed Impressions: Service Date/Time: Wednesday, August 02, 2017 18:13 - CONCLUSION: 1. Mild intrahepatic biliary prominence, presumably on the basis of sclerosing cholangitis. No well-defined stenotic areas of the biliary tree are seen. Questionable mild wall thickening of the distal common bile duct. 2. Enlarged, nodular and extremely heterogeneous liver with small perihepatic ascites. 3. Contracted gallbladder. No stones are seen. 4. Nonspecific but chronic appearing dilatation of the pancreatic duct within the tail and body. Mele Shelton MD Abdomen/Pelvis CT 08/01/17 3434 Signed Impressions: Service Date/Time: July 19:02 - CONCLUSION: 1. Mild, generalized colitis, nonspecific but most likely infectious or inflammatory. Also a large amount of colonic stool throughout. 2. Cirrhosis again seen. Small ascites, increased. 3. No change biliary air and pancreatic duct dilatation. 4. No change nonobstructing stone lower pole of the left kidney. 5. Previous splenectomy. 6. Reported cholecystectomy but a gallbladder like structure is seen along the inferior margin of the liver Mele Shelton MD Physical Exam HEENT: Normocephalic, atraumatic CHEST: Even/unlabored CARDIAC: RRR ABDOMEN: Distended, firm, diffuse TTP, bowel sounds active EXTREMITIES: No clubbing, cyanosis, or edema. SKIN: No rash AWS DEVELOPER: Alert and oriented times three. (Chelsea Henriquez) Assessment and Plan Assessment: (1) chronic anemia Status: Acute (2) hepatic cirrhosis/fibrosis/chronic hepatitis Status: Acute (3) abdominal pain, acute and chronic Status: Acute (4) Colitis ICD Codes: K52.9 - Noninfective gastroenteritis and colitis, unspecified Status: Acute (5) Liver disease, chronic, with cirrhosis ICD Codes: K74.60 - Unspecified cirrhosis of liver; K76.9 - Liver disease, unspecified Status: Chronic Plan Assessment: - Abdominal pain- states starts in epigastric area and wraps around to right side of abdomen. Known history of sclerosing cholangitis, not on medication for this. Labs as follows AST-150 ALT-95 Alk phos-1367 T bili-2.2- labs have trended down some since admission. Pt has had multiple ERCPs done in the past, last one done at this facility in July 2016. States had one done middle of last year at [facility], stent was removed. MRCP (08/02) noted --> Mild intrahepatic biliary prominence, presumably on the basis of sclerosing cholangitis. No well-defined stenotic areas of the biliary tree are seen. ? mild wall thickening of the distal CBD. Enlarged, nodular and extremely heterogeneous liver with small perihepatic ascites. contracted gallbladder, no stones. Nonspecific but chronic appearing dilation of the pancreatic duct within the tail and body. Previous chart reviewed. Labs from July 2016 GUSTAVO and ASMA negative. AMA less than 20. 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 Cytoplasmic inclusions suggestive of Alpha-1 antitrypsin are present. Small amount of ascites noted on CT. Pt reports last paracentesis was over a year ago. - Colitis- CT abdomen and pelvis --> Mild, generalized colitis, nonspecific but most likely infectious or inflammatory. Also a large amount of colonic stool throughout. Pt on Flagyl and Zosyn. MiraLax. Denies diarrhea- states green, loose stool. Plan: Ursodiol Obtain records from [facility] Alpha-1 antitrypsin PT/INR Ammonia Stool studies Monitor LFTs Further recommendations based on findings of above and clinical course Pt has been seen and examined by myself and Dr. Israel and this note is written on her behalf (Chelsea Henriquez) Physician Comments seen, examined agree with above as per her she had seen at [facility] -no further appointments s for now she had been seen locally, [facility]. [facility] in the past , not a liver transplant candidate we will also start Creon along with Kaylie States she is not taking currently, larissa though were prescribed in the past She was also evaluated in the past at [facility] for abnormal gb-no surgery recommended (Edel Israel MD) Chelsea Henriquez Aug 05, 2017 16:02 Edel Israel MD Aug 05, 2017 18:50
[2017-08-05 20:27] VITALS: BP 105/72; PULSE 91; RESP 18; TEMP 98.6; O2SAT 97
[2017-08-05] MEDS: URSODIOL 300 MG CAP PO SCH (22:58)
[2017-08-06] MEDS: metroNIDAZOLE 250 MG INJ 50 ML IV SCH ×5 (01:31→23:27)
[2017-08-06] MEDS: PIPERACIL-TAZO 3.375 GM PREMIX 50 ML IV SCH ×4 (02:23→20:35)
[2017-08-06 03:09] VITALS: BP 114/78; PULSE 87; RESP 18; TEMP 98; O2SAT 98
[2017-08-06] MEDS: HYDROmorphone HCL PF 2 MG/ML VIAL IV PUSH PRN ×5 (03:20→20:36)
[2017-08-06 07:44] LABS: PROTHROMBIN TIME - PATIENT 10.2 SEC (9.8-11.6)
[2017-08-06 08:04] LABS: ALBUMIN 1.7 GM/DL (3.4-5.0); ALT (GPT) 86 U/L (10-53); AST (GOT) 121 U/L (15-37); BICARBONATE 27.5 MEQ/L (21.0-32.0); BLOOD UREA NITROGEN 7 MG/DL (7-18); CHLORIDE 102 MEQ/L (98-107); CREATININE 0.36 MG/DL (0.50-1.00); GLOMERULAR FILTRATION RATE 193 ML/MIN (>89); GLUCOSE,RANDOM 346 MG/DL (74-106); SODIUM (NA) 136 MEQ/L (136-145)
[2017-08-06 08:18] LABS: ALKALINE PHOSPHATASE 1260 U/L (45-117); TOTAL BILIRUBIN ADULT 2.1 MG/DL (0.2-1.0); TOTAL PROTEIN 5.6 GM/DL (6.4-8.2)
[2017-08-06 08:35] VITALS: BP 138/84; PULSE 76; RESP 16; TEMP 98; O2SAT 99
[2017-08-06] MEDS: SODIUM CHLORIDE 0.9% FLUSH 10 ML FLUSH IV FLUSH SCH ×2 (09:00→20:35)
[2017-08-06] MEDS: POLYETHYLENE GLYCOL 17 GM PKG PO SCH (09:00)
--- NOTE | 2017-08-06 09:25 | HHI.GIFU ---
Subjective Remarks pt states diarrhea somewhat better today. tolerating diet. (Brionna Cisse) Objective Vitals I&O Vital Signs Date Time Temp Pulse Resp B/P (MAP) Pulse Ox O2 Delivery O2 Flow Rate FiO2 08/06/17 08:35 98.0 76 16 138/84 (102) 99 08/06/17 03:09 98.0 87 18 114/78 (90) 98 08/05/17 20:27 98.6 91 18 105/72 (83) 97 08/05/17 15:26 98.4 91 20 122/76 (91) 98 08/05/17 11:35 98.0 74 20 123/76 (92) 96 I/O 08/05/17 08/05/17 08/05/17 08/06/17 08/06/17 08/06/17 07:00 15:00 23:00 07:00 15:00 23:00 Intake Total 480 ml Output Total 400 ml Balance 80 ml Intake Oral 480 ml Output Urine Total 400 ml Laboratory Laboratory Tests Test 08/05/17 10:51 08/05/17 17:55 08/06/17 07:07 Blood Urea Nitrogen 6 7 Creatinine 0.42 0.36 Random Glucose 311 346 Total Protein 6.0 5.6 Albumin 1.8 1.7 Calcium Level 8.2 8.0 Alkaline Phosphatase 1367 1260 Aspartate Amino Transf (AST/SGOT) 150 121 Alanine Aminotransferase (ALT/SGPT) 95 86 Total Bilirubin 2.2 2.1 Sodium Level 139 136 Potassium Level 3.9 3.8 Chloride Level 104 102 Carbon Dioxide Level 25.3 27.5 Anion Gap 10 7 Estimat Glomerular Filtration Rate 162 193 Stool C. difficile Toxin (PCR) NEGATIVE Stl C. difficile Toxin Epiderm 027 PRESUMPTIVE NEGATIVE Prothrombin Time 10.2 Prothromb Time International Ratio 1.0 Ammonia 17 Date/Time Source Procedure Growth Status 08/05/17 17:55 Stool Stool Cryptosporidium Exam Pending Received 08/05/17 17:55 Stool Stool Giardia Antigen (MARION) Pending Received Imaging Last Impressions Cholangiopancreatography MRI 08/02/17 0000 Signed Impressions: Service Date/Time: Wednesday, August 02, 2017 18:13 - CONCLUSION: 1. Mild intrahepatic biliary prominence, presumably on the basis of sclerosing cholangitis. No well-defined stenotic areas of the biliary tree are seen. Questionable mild wall thickening of the distal common bile duct. 2. Enlarged, nodular and extremely heterogeneous liver with small perihepatic ascites. 3. Contracted gallbladder. No stones are seen. 4. Nonspecific but chronic appearing dilatation of the pancreatic duct within the tail and body. Mele Shelton MD Abdomen/Pelvis CT 08/01/17 7646 Signed Impressions: Service Date/Time: July 19:02 - CONCLUSION: 1. Mild, generalized colitis, nonspecific but most likely infectious or inflammatory. Also a large amount of colonic stool throughout. 2. Cirrhosis again seen. Small ascites, increased. 3. No change biliary air and pancreatic duct dilatation. 4. No change nonobstructing stone lower pole of the left kidney. 5. Previous splenectomy. 6. Reported cholecystectomy but a gallbladder like structure is seen along the inferior margin of the liver Mele Shelton MD Physical Exam HEENT: Normocephalic, atraumatic CHEST: Even/unlabored CARDIAC: RRR ABDOMEN: distended and tender in upper quadrants, firm in upper quadrant, bowel sounds active EXTREMITIES: No clubbing, cyanosis, or edema. SKIN: No rash IT SYSTEMS ADMINISTRATOR: Alert and oriented times three. (Brionna Cisse [facility]) Assessment and Plan Assessment: (1) chronic anemia Status: Acute (2) hepatic cirrhosis/fibrosis/chronic hepatitis Status: Acute (3) abdominal pain, acute and chronic Status: Acute (4) Colitis ICD Codes: K52.9 - Noninfective gastroenteritis and colitis, unspecified Status: Acute (5) Liver disease, chronic, with cirrhosis ICD Codes: K74.60 - Unspecified cirrhosis of liver; K76.9 - Liver disease, unspecified Status: Chronic Plan Assessment: - Abdominal pain- states starts in epigastric area and wraps around to right side of abdomen. Known history of sclerosing cholangitis, not on medication for this. Labs as follows AST-150 ALT-95 Alk phos-1367 T bili-2.2- labs have trended down some since admission. Pt has had multiple ERCPs done in the past, last one done at this facility in July 2016. States had one done middle of last year at [facility], stent was removed. MRCP (08/02) noted --> Mild intrahepatic biliary prominence, presumably on the basis of sclerosing cholangitis. No well-defined stenotic areas of the biliary tree are seen. ? mild wall thickening of the distal CBD. Enlarged, nodular and extremely heterogeneous liver with small perihepatic ascites. contracted gallbladder, no stones. Nonspecific but chronic appearing dilation of the pancreatic duct within the tail and body. Previous chart reviewed. Labs from July 2016 GUSTAVO and ASMA negative. AMA less than 20. 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 Cytoplasmic inclusions suggestive of Alpha-1 antitrypsin are present. Small amount of ascites noted on CT. Pt reports last paracentesis was over a year ago. - Colitis- CT abdomen and pelvis --> Mild, generalized colitis, nonspecific but most likely infectious or inflammatory. Also a large amount of colonic stool throughout. Pt on Flagyl and Zosyn. MiraLax. Denies diarrhea- states green, loose stool. - 08/06/17 diarrhea somewhat improved. LFTs gradual trend down. neg for c diff. coags, [place] WNL. Plan: cont Ursodiol creon Obtain records from [facility] await Alpha-1 antitrypsin Monitor labs supportive care Pt has been seen and examined by myself and Dr. Israel and this note is written on her behalf (Brionna Cisse) Brionna Cisse Aug 06, 2017 09:25 Edel Israel MD Aug 06, 2017 13:47
[2017-08-06] MEDS: INSULIN DETEMIR 100 UNITS/ML VIAL SQ SCH (09:53)
[2017-08-06] MEDS: INSULIN ASPART SUPPLEMENTAL SCALE SQ SCH ×4 (09:53→23:54)
[2017-08-06] MEDS: LIPASE/PROTEASE/AMYLASE (24,000/76,000/120,000) CAP PO SCH ×3 (11:06→17:15)
[2017-08-06] MEDS: URSODIOL 300 MG CAP PO SCH ×2 (11:06→20:35)
[2017-08-06 13:14] VITALS: BP 131/88; PULSE 78; RESP 14; TEMP 98; O2SAT 99
--- NOTE | 2017-08-06 14:52 | HHI.PR ---
Subjective Remarks Follow up abdominal pain, nausea. The patient states that she feels about the same as yesterday. Still having pain in the right upper quadrant and right flank. Diarrhea is improving. No chest pain or dyspnea. She does report nausea. Objective Vitals Vital Signs Date Time Temp Pulse Resp B/P (MAP) Pulse Ox O2 Delivery O2 Flow Rate FiO2 08/06/17 13:14 98.0 78 14 131/88 (102) 99 08/06/17 08:35 98.0 76 16 138/84 (102) 99 08/06/17 03:09 98.0 87 18 114/78 (90) 98 08/05/17 20:27 98.6 91 18 105/72 (83) 97 08/05/17 15:26 98.4 91 20 122/76 (91) 98 I/O 08/05/17 08/05/17 08/05/17 08/06/17 08/06/17 08/06/17 07:00 15:00 23:00 07:00 15:00 23:00 Intake Total 480 ml Output Total 400 ml Balance 80 ml Intake Oral 480 ml Output Urine Total 400 ml Result Diagram: 08/04/17 0820 08/06/17 0707 Imaging Last Impressions Cholangiopancreatography MRI 08/02/17 0000 Signed Impressions: Service Date/Time: Wednesday, August 02, 2017 18:13 - CONCLUSION: 1. Mild intrahepatic biliary prominence, presumably on the basis of sclerosing cholangitis. No well-defined stenotic areas of the biliary tree are seen. Questionable mild wall thickening of the distal common bile duct. 2. Enlarged, nodular and extremely heterogeneous liver with small perihepatic ascites. 3. Contracted gallbladder. No stones are seen. 4. Nonspecific but chronic appearing dilatation of the pancreatic duct within the tail and body. Mele Shelton MD Abdomen/Pelvis CT 08/01/17 1748 Signed Impressions: Service Date/Time: July 19:02 - CONCLUSION: 1. Mild, generalized colitis, nonspecific but most likely infectious or inflammatory. Also a large amount of colonic stool throughout. 2. Cirrhosis again seen. Small ascites, increased. 3. No change biliary air and pancreatic duct dilatation. 4. No change nonobstructing stone lower pole of the left kidney. 5. Previous splenectomy. 6. Reported cholecystectomy but a gallbladder like structure is seen along the inferior margin of the liver Mele Shelton MD Objective Remarks General: Thin female in no acute distress. Heart: Regular rate and rhythm. No murmur. Lungs: Clear to auscultation bilaterally. No wheezes, rales, or rhonchi. Breathing is nonlabored. Abdomen: Soft, moderately distended, tender to palpation right upper quadrant. Extremities: No lower extremity edema. Psych: Alert and oriented. Procedures None Urinary Catheter: No Vascular Central Line Catheter: No A/P Assessment and Plan 1. Abdominal pain: Possible sclerosing cholangitis. Appreciate GI recommendations. Continue pain control. Continue Zosyn, Flagyl. 2. Diabetes mellitus: Glucose fluctuates. Home insulin regimen on hold. Continue Levemir at a lower dose secondary to decreased oral intake. Monitor Accu-Cheks and cover with sliding scale insulin. 3. Hypokalemia: Secondary to decreased oral intake. Improved. 4. DVT prophylaxis: SCDzeke, LESVIA hoff. Discharge Planning Pending further clinical improvement, GI clearance. Aurelio Mallory MD Aug 06, 2017 14:52
[2017-08-06 20:39] VITALS: BP 129/82; PULSE 85; RESP 17; O2SAT 100
[2017-08-06] MEDS: DOCUSATE SODIUM 50 MG/SENNA 8.6 MG TAB PO SCH (21:00)
[2017-08-06 23:44] VITALS: BP 115/76; PULSE 76; RESP 18; TEMP 98.3; O2SAT 97
[2017-08-07] MEDS: HYDROmorphone HCL PF 2 MG/ML VIAL IV PUSH PRN ×5 (00:43→17:55)
[2017-08-07 00:53] VITALS: BP 126/78; PULSE 89; RESP 16
[2017-08-07] MEDS: PIPERACIL-TAZO 3.375 GM PREMIX 50 ML IV SCH ×3 (02:35→14:00)
[2017-08-07] MEDS: metroNIDAZOLE 250 MG INJ 50 ML IV SCH ×3 (03:13→15:00)
[2017-08-07 07:41] LABS: HEMATOCRIT 34.7 % (35.0-46.0); HEMOGLOBIN 11.4 GM/DL (11.6-15.3); MEAN CELL VOLUME 84.9 FL (80.0-100.0); MEAN CORPUSCULAR HEMOGLOBIN 27.9 PG (27.0-34.0); MEAN CORPUSCULAR HGB CONC 32.8 % (32.0-36.0); MEAN PLATELET VOLUME 11.2 FL (7.0-11.0); PLATELET COUNT 287 TH/MM3 (150-450); RED BLOOD COUNT 4.09 MIL/MM3 (4.00-5.30); RED CELL DISTRIBUTION WIDTH 16.8 % (11.6-17.2); WHITE BLOOD COUNT 9.8 TH/MM3 (4.0-11.0)
[2017-08-07 07:47] VITALS: BP 124/79; PULSE 83; RESP 16; TEMP 98.2; O2SAT 97
[2017-08-07 08:30] LABS: ALBUMIN 1.6 GM/DL (3.4-5.0); BICARBONATE 27.6 MEQ/L (21.0-32.0); BLOOD UREA NITROGEN 7 MG/DL (7-18); CALCIUM 7.8 MG/DL (8.5-10.1); CHLORIDE 104 MEQ/L (98-107); GLOMERULAR FILTRATION RATE 238 ML/MIN (>89); GLUCOSE,RANDOM 229 MG/DL (74-106); SODIUM (NA) 138 MEQ/L (136-145)
[2017-08-07 08:31] LABS: AST (GOT) 142 U/L (15-37)
[2017-08-07 08:37] LABS: ALKALINE PHOSPHATASE 1191 U/L (45-117); ALT (GPT) 87 U/L (10-53); TOTAL BILIRUBIN ADULT 2.1 MG/DL (0.2-1.0); TOTAL PROTEIN 5.6 GM/DL (6.4-8.2)
[2017-08-07 08:56] LABS: BANDS 7 % (0-6); LYMPHOCYTES 11 % (9-44); MONOCYTES 5 % (0-8); NEUTROPHIL # MANUAL DIFF 7.9 TH/MM3 (1.8-7.7); POLYS (SEG NEUTROPHILS) 74 % (16-70); TARGET CELLS 2+ (NORMAL)
[2017-08-07 08:57] LABS: HOWELL-JOLLY BODIES PRESENT (NONE SEEN)
[2017-08-07] MEDS: INSULIN DETEMIR 100 UNITS/ML VIAL SQ SCH (09:00)
[2017-08-07] MEDS: DOCUSATE SODIUM 50 MG/SENNA 8.6 MG TAB PO SCH (09:00)
[2017-08-07] MEDS: POLYETHYLENE GLYCOL 17 GM PKG PO SCH (09:00)
--- NOTE | 2017-08-07 09:02 | HHI.PR ---
Subjective Remarks Follow-up abdominal pain. The patient states that her pain is a little worse today. She still reports nausea, but no vomiting. Objective Vitals Vital Signs Date Time Temp Pulse Resp B/P (MAP) Pulse Ox O2 Delivery O2 Flow Rate FiO2 08/07/17 07:47 98.2 83 16 124/79 (94) 97 08/07/17 00:53 89 16 126/78 (94) 08/06/17 23:44 98.3 76 18 115/76 (89) 97 08/06/17 20:39 85 17 129/82 (98) 100 08/06/17 13:14 98.0 78 14 131/88 (102) 99 I/O 08/06/17 08/06/17 08/06/17 08/07/17 08/07/17 08/07/17 07:00 15:00 23:00 07:00 15:00 23:00 Intake Total 480 ml 480 ml Output Total 400 ml 700 ml 1000 ml Balance 80 ml -700 ml -520 ml Intake Oral 480 ml 480 ml Output Urine Total 400 ml 700 ml 1000 ml # Voids 3 Result Diagram: 08/07/17 0655 08/07/17 0655 Imaging Last Impressions Cholangiopancreatography MRI 08/02/17 0000 Signed Impressions: Service Date/Time: Wednesday, August 02, 2017 18:13 - CONCLUSION: 1. Mild intrahepatic biliary prominence, presumably on the basis of sclerosing cholangitis. No well-defined stenotic areas of the biliary tree are seen. Questionable mild wall thickening of the distal common bile duct. 2. Enlarged, nodular and extremely heterogeneous liver with small perihepatic ascites. 3. Contracted gallbladder. No stones are seen. 4. Nonspecific but chronic appearing dilatation of the pancreatic duct within the tail and body. Mele Shelton MD Abdomen/Pelvis CT 08/01/17 1748 Signed Impressions: Service Date/Time: July 19:02 - CONCLUSION: 1. Mild, generalized colitis, nonspecific but most likely infectious or inflammatory. Also a large amount of colonic stool throughout. 2. Cirrhosis again seen. Small ascites, increased. 3. No change biliary air and pancreatic duct dilatation. 4. No change nonobstructing stone lower pole of the left kidney. 5. Previous splenectomy. 6. Reported cholecystectomy but a gallbladder like structure is seen along the inferior margin of the liver Mele Shelton MD Objective Remarks General: Thin female in no acute distress. Heart: Regular rate and rhythm. No murmur. Lungs: Clear to auscultation bilaterally. No wheezes, rales, or rhonchi. Breathing is nonlabored. Abdomen: Soft, moderately distended, tender to palpation right upper quadrant. Extremities: No lower extremity edema. Psych: Alert and oriented. Becomes tearful at times. Procedures None Urinary Catheter: No Vascular Central Line Catheter: No A/P Assessment and Plan 1. Abdominal pain: Possible sclerosing cholangitis. Appreciate GI recommendations. Continue pain control. Continue Zosyn, Flagyl. Monitor LFTs. 2. Diabetes mellitus: Glucose has been elevated. Will increase Levemir. Monitor Accu-Cheks and cover with sliding scale insulin. Patient still has poor oral intake. 3. Hypokalemia: Secondary to decreased oral intake. Improved. 4. DVT prophylaxis: SCDs, LESVIA hoff. Discharge Planning Pending further clinical improvement, GI clearance. Aurelio Mallory MD Aug 07, 2017 09:02
[2017-08-07] MEDS: INSULIN ASPART SUPPLEMENTAL SCALE SQ SCH ×2 (09:34→14:00)
[2017-08-07] MEDS: LIPASE/PROTEASE/AMYLASE (24,000/76,000/120,000) CAP PO SCH ×2 (09:35→14:00)
[2017-08-07] MEDS: SODIUM CHLORIDE 0.9% FLUSH 10 ML FLUSH IV FLUSH SCH (09:35)
[2017-08-07] MEDS: URSODIOL 300 MG CAP PO SCH (09:35)
[2017-08-07 12:04] VITALS: BP 105/73; PULSE 77; RESP 16; TEMP 97.5; O2SAT 97
--- NOTE | 2017-08-07 15:57 | HHI.GIFU ---
Subjective Remarks Pt with continued abdominal pain. States it has not gotten worse, same as chronic pain Occasional nausea, denies emesis Tolerating PO Continued complaints of green stool, formed (Chelsea Henriquez) Objective Vitals I&O Vital Signs Date Time Temp Pulse Resp B/P (MAP) Pulse Ox O2 Delivery O2 Flow Rate FiO2 08/07/17 12:04 97.5 77 16 105/73 (84) 97 08/07/17 07:47 98.2 83 16 124/79 (94) 97 08/07/17 00:53 89 16 126/78 (94) 08/06/17 23:44 98.3 76 18 115/76 (89) 97 08/06/17 20:39 85 17 129/82 (98) 100 I/O 08/06/17 08/06/17 08/06/17 08/07/17 08/07/17 08/07/17 07:00 15:00 23:00 07:00 15:00 23:00 Intake Total 480 ml 480 ml Output Total 400 ml 700 ml 1000 ml Balance 80 ml -700 ml -520 ml Intake Oral 480 ml 480 ml Output Urine Total 400 ml 700 ml 1000 ml # Voids 3 Laboratory Laboratory Tests Test 08/07/17 06:55 White Blood Count 9.8 Red Blood Count 4.09 Hemoglobin 11.4 Hematocrit 34.7 Mean Corpuscular Volume 84.9 Mean Corpuscular Hemoglobin 27.9 Mean Corpuscular Hemoglobin Concent 32.8 Red Cell Distribution Width 16.8 Platelet Count 287 Mean Platelet Volume 11.2 CBC Comment AUTO DIFF Differential Total Cells Counted 100 Neutrophils % (Manual) 74 Band Neutrophils % 7 Lymphocytes % 11 Monocytes % 5 Eosinophils % 3 Neutrophils # (Manual) 7.9 Differential Comment FINAL DIFF MANUAL Platelet Estimate NORMAL Platelet Morphology Comment ENLARGED Target Cells 2+ Kelly-Cowpens Bodies PRESENT Blood Urea Nitrogen 7 Creatinine 0.30 Random Glucose 229 Total Protein 5.6 Albumin 1.6 Calcium Level 7.8 Alkaline Phosphatase 1191 Aspartate Amino Transf (AST/SGOT) 142 Alanine Aminotransferase (ALT/SGPT) 87 Total Bilirubin 2.1 Sodium Level 138 Potassium Level 4.8 Chloride Level 104 Carbon Dioxide Level 27.6 Anion Gap 6 Estimat Glomerular Filtration Rate 238 Date/Time Source Procedure Growth Status 08/05/17 17:55 Stool Stool Cryptosporidium Exam Pending Received 08/05/17 17:55 Stool Stool Giardia Antigen (MARION) Pending Received Imaging Last Impressions Cholangiopancreatography MRI 08/02/17 0000 Signed Impressions: Service Date/Time: Wednesday, August 02, 2017 18:13 - CONCLUSION: 1. Mild intrahepatic biliary prominence, presumably on the basis of sclerosing cholangitis. No well-defined stenotic areas of the biliary tree are seen. Questionable mild wall thickening of the distal common bile duct. 2. Enlarged, nodular and extremely heterogeneous liver with small perihepatic ascites. 3. Contracted gallbladder. No stones are seen. 4. Nonspecific but chronic appearing dilatation of the pancreatic duct within the tail and body. Mele Shelton MD Abdomen/Pelvis CT 08/01/17 1748 Signed Impressions: Service Date/Time: July 19:02 - CONCLUSION: 1. Mild, generalized colitis, nonspecific but most likely infectious or inflammatory. Also a large amount of colonic stool throughout. 2. Cirrhosis again seen. Small ascites, increased. 3. No change biliary air and pancreatic duct dilatation. 4. No change nonobstructing stone lower pole of the left kidney. 5. Previous splenectomy. 6. Reported cholecystectomy but a gallbladder like structure is seen along the inferior margin of the liver Mele Shelton MD Physical Exam HEENT: Normocephalic, atraumatic CHEST: Even/unlabored CARDIAC: RRR ABDOMEN: Distended, upper abdominal tenderness, firm in upper quadrant, bowel sounds active EXTREMITIES: No clubbing, cyanosis, or edema. SKIN: No rash PROTECTION AGENT: Alert and oriented times three. (Chelsea Henriquez) Assessment and Plan Assessment: (1) chronic anemia Status: Acute (2) hepatic cirrhosis/fibrosis/chronic hepatitis Status: Acute (3) abdominal pain, acute and chronic Status: Acute (4) Colitis ICD Codes: K52.9 - Noninfective gastroenteritis and colitis, unspecified Status: Acute (5) Liver disease, chronic, with cirrhosis ICD Codes: K74.60 - Unspecified cirrhosis of liver; K76.9 - Liver disease, unspecified Status: Chronic Plan Assessment: - Abdominal pain- states starts in epigastric area and wraps around to right side of abdomen. Known history of sclerosing cholangitis, not on medication for this. Labs as follows AST-150 ALT-95 Alk [id number]-[id number] T bili-2.2- labs have trended down some since admission. Pt has had multiple ERCPs done in the past, last one done at this facility in July 2016. States had one done middle of last year at [facility], stent was removed. MRCP (08/02) noted --> Mild intrahepatic biliary prominence, presumably on the basis of sclerosing cholangitis. No well-defined stenotic areas of the biliary tree are seen. ? mild wall thickening of the distal CBD. Enlarged, nodular and extremely heterogeneous liver with small perihepatic ascites. contracted gallbladder, no stones. Nonspecific but chronic appearing dilation of the pancreatic duct within the tail and body. Previous chart reviewed. Labs from July 2016 GUSTAVO and ASMA negative. AMA less than 20. - Cirrhosis- previously followed by [facility] but states she last saw them earlier this year and they declined further treatment stating her MELD score was not high enough Liver biopsy July 2016 --> Severe chronic hepatitis with bridging fibrosis and cirrhosis (grade 2/4; stage 3-4/4) with associated bile stasis, fatty change and histopathologic features most suggestive of drug induced liver disease (including alcohol) No evidence of PBC or PSC. Cytoplasmic inclusions suggestive of Alpha-1 antitrypsin are present. Small amount of ascites noted on CT. Pt reports last paracentesis was over a year ago. - Colitis- CT abdomen and pelvis --> Mild, generalized colitis, nonspecific but most likely infectious or inflammatory. Also a large amount of colonic stool throughout. Pt on Flagyl and Zosyn. MiraLax. Denies diarrhea- states green, loose stool. - 08/06/17 diarrhea somewhat improved. LFTs gradual trend down. neg for c diff. lesly WI WNL. (08/07) --> Pt remains with chronic abdominal pain, no change. Reports some nausea, but tolerating PO and denies emesis. Continued complaints of green BMs, states formed. Planning for DC today. Spent a long time discussing with pt that her PSC is chronic and her symptoms are chronic and not something that can be fixed even if she remained in the hospital for a few more days. She can be managed outpatient regarding further care. She is agreeable to this plan. She should be continued on Creon and Ursodiol and follow up in the office. Plan: Ursodiol Creon OK to DC from a GI standpoint Have pt follow up with GI after DC Pt has been seen and examined by myself and Dr. Israel and this note is written on her behalf (Chelsea Henriquez) Physician Comments agree with above (Edel Israle MD) Chelsea Henriquez Aug 07, 2017 15:57 Edel Israel MD Aug 07, 2017 18:16
[2017-08-07 16:00] VITALS: BP 124/80; PULSE 96; RESP 16; TEMP 97.3; O2SAT 97
[2017-08-07] MEDS ORDERED: METR1TAB76 PO (17:55)
[2017-08-07] MEDS ORDERED: LEVEMIR SQ (17:55)
[2017-08-07] MEDS ORDERED: CREON24 PO (17:55)
[2017-08-07] MEDS ORDERED: Ursodiol PO (17:55)
--- NOTE | 2017-08-07 17:56 | HHI.DCPOC ---
Discharge Care Plan Diagnosis: (1) Abdominal pain (2) Diabetes mellitus (3) Pancreatitis Goals to Promote Your Health * To prevent worsening of your condition and complications * To maintain your health at the optimal level Directions to Meet Your Goals Take your medications as prescribed Follow your dietary instruction Follow activity as directed Keep your appointments as scheduled Take your immunizations and boosters as scheduled If your symptoms worsen call your PCP, if no PCP go to Urgent Care Center or Emergency Room Smoking is Dangerous to Your Health. Avoid second hand smoke Call the 24-hour hour crisis hotline for domestic abuse at Aurelio Mallory MD Aug 07, 2017 17:56
--- NOTE | 2017-08-07 17:59 | HHI.DS ---
Discharge Summary Admission Date Aug 01, 2017 at 20:05 Discharge Date: Aug 07, 2017 Admitting Diagnosis Colitis; Ascites (1) Diabetes mellitus ICD Code: E11.9 - Diabetes mellitus Status: Acute (2) Abdominal pain ICD Code: R10.9 - Abdominal pain Status: Acute (3) Chronic pain ICD Code: G89.29 - Other chronic pain Status: Acute (4) Hypokalemia ICD Code: E87.6 - Hypokalemia Status: Acute Procedures None Brief History - From Admission 47-year-old female with past medical history significant for primary sclerosing cholangitis, non-Hodgkin's lymphoma and type 1 diabetes mellitus presents with acutely worsening right upper quadrant abdominal pain. The patient reports that the pain has been going on approximately for 5 days and has not been improving at home. She endorses nausea/vomiting with dry heaves. She endorses subjective chills. She states the pain radiates to her right flank and then across her back. She also has complains of an enlarging abdomen with increasing pain/pressure. The patient was initially worked up at [facility] however she reports that she was not accepted by them because she was "not severe enough." She reports her primary sclerosing cholangitis was diagnosed via liver biopsy approximately 5 years ago at [facility]. She has not established with a chicken catcher here. CBC/BMP: 08/07/17 0655 08/07/17 0655 Significant Findings Laboratory Tests Test 08/05/17 10:51 08/05/17 17:55 08/06/17 07:07 08/07/17 06:55 Blood Urea Nitrogen 6 MG/DL (7-18) Creatinine 0.42 MG/DL (0.50-1.00) 0.36 MG/DL (0.50-1.00) 0.30 MG/DL (0.50-1.00) Random Glucose 311 MG/DL (74-106) 346 MG/DL (74-106) 229 MG/DL (74-106) Total Protein 6.0 GM/DL (6.4-8.2) 5.6 GM/DL (6.4-8.2) 5.6 GM/DL (6.4-8.2) Albumin 1.8 GM/DL (3.4-5.0) 1.7 GM/DL (3.4-5.0) 1.6 GM/DL (3.4-5.0) Calcium Level 8.2 MG/DL (8.5-10.1) 8.0 MG/DL (8.5-10.1) 7.8 MG/DL (8.5-10.1) Alkaline Phosphatase 1367 U/L (45-117) 1260 U/L (45-117) 1191 U/L (45-117) Aspartate Amino Transf (AST/SGOT) 150 U/L (15-37) 121 U/L (15-37) 142 U/L (15-37) Alanine Aminotransferase (ALT/SGPT) 95 U/L (10-53) 86 U/L (10-53) 87 U/L (10-53) Total Bilirubin 2.2 MG/DL (0.2-1.0) 2.1 MG/DL (0.2-1.0) 2.1 MG/DL (0.2-1.0) Ftaod-6-Oduzgyjlrqf 211 mg/dL (100 - 190) Hemoglobin 11.4 GM/DL (11.6-15.3) Hematocrit 34.7 % (35.0-46.0) Mean Platelet Volume 11.2 FL (7.0-11.0) Neutrophils % (Manual) 74 % (16-70) Band Neutrophils % 7 % (0-6) Neutrophils # (Manual) 7.9 TH/MM3 (1.8-7.7) Platelet Morphology Comment ENLARGED (NORMAL) Target Cells 2+ (NORMAL) Imaging Last Impressions Cholangiopancreatography MRI 08/02/17 0000 Signed Impressions: Service Date/Time: Wednesday, August 02, 2017 18:13 - CONCLUSION: 1. Mild intrahepatic biliary prominence, presumably on the basis of sclerosing cholangitis. No well-defined stenotic areas of the biliary tree are seen. Questionable mild wall thickening of the distal common bile duct. 2. Enlarged, nodular and extremely heterogeneous liver with small perihepatic ascites. 3. Contracted gallbladder. No stones are seen. 4. Nonspecific but chronic appearing dilatation of the pancreatic duct within the tail and body. Mele Shelton MD Abdomen/Pelvis CT 08/01/17 1748 Signed Impressions: Service Date/Time: July 19:02 - CONCLUSION: 1. Mild, generalized colitis, nonspecific but most likely infectious or inflammatory. Also a large amount of colonic stool throughout. 2. Cirrhosis again seen. Small ascites, increased. 3. No change biliary air and pancreatic duct dilatation. 4. No change nonobstructing stone lower pole of the left kidney. 5. Previous splenectomy. 6. Reported cholecystectomy but a gallbladder like structure is seen along the inferior margin of the liver Mele Shelton MD PE at Discharge General: Thin female in no acute distress. Heart: Regular rate and rhythm. No murmur. Lungs: Clear to auscultation bilaterally. No wheezes, rales, or rhonchi. Breathing is nonlabored. Abdomen: Soft, moderately distended, tender to palpation right upper quadrant. Extremities: No lower extremity edema. Psych: Alert and oriented. Becomes tearful at times. Hospital Course The patient was admitted for further management of abdominal pain. CT of the abdomen and pelvis showed mild colitis and cirrhosis. Gastroenterology was consulted. Patient was started on IV antibiotics. Her elevated LFTs were felt to be at her baseline. Patient's diet was advanced and her oral intake improved slowly throughout the hospitalization. She continued to have pain. Palliative care was consulted for assistance with pain control. It was recommended to continue the patient on IV Dilaudid during the hospitalization and have her follow-up with pain management as an outpatient. The patient stated that she did not take any pain medications at home because she could not tolerate any of the oral pain medications. She was cleared for discharge by gastroenterology and felt to be stable for discharge home. Pt Condition on Discharge: Stable Discharge Disposition: Discharge Home Discharge Time: > 30 minutes Discharge Instructions DIET: Follow Instructions for: Heart Healthy Diet, Diabetic Diet, Low Residue Diet Activities you can perform: Regular-No Restrictions Follow up Referrals: Gastroenterology - 1 Week with Edel Israel MD Pain Management PCP Follow-up - 1 Week with Gilmar Matos DO New Medications: Metronidazole (Metronidazole) 500 Mg Tab 500 MG PO QID for Infection for 5 Days, #20 TAB 0 Refills Insulin Detemir Inj (Levemir Inj) 1,000 unit/ 10 ML Vial 7 UNITS SQ DAILY for Blood Sugar Management, #30 INJECTION Do not mix with any other Insulin. Pancrelipase (Creon) 24,000-76,000-120,000 Units Cap 1 CAP PO TID for pancrease enzymes, #90 CAP 0 Refills [Ursodiol] () 300 MG CAP 300 MG PO Q12HR for gallbladder, #60 CAP 0 Refills Discontinued Medications: Insulin Glargine Inj (Lantus Inj) 1,000 Unit/10 Ml Vial 35 UNITS SQ HS for Blood Sugar Management, VIAL 0 Refills Insulin Lispro (Human) Inj (Humalog Inj) 1,000 Unit/10 Ml Vial 8 UNITS SQ TID for Blood Sugar Management, #1 VIAL 0 Refills Max dose at bedtime:( )units; sugars< 70,(0)units; sugars 150-199,(1)unit; sugars 200-249,(3)units; sugars 250-299,(5)units; sugars 300-349,(7)units; sugars more than 349,(9)units. Aurelio Mallory MD Aug 07, 2017 17:59
[2017-08-08] MEDS ORDERED: INSULIN DETEMIR 100 UNITS/ML VIAL SQ SCH (09:00)
== END 2017-08-07 19:39 | disposition home or self-care (01) | DRG 445 ==
LOC: NEPC 14:56 → NEDA 20:05 → NEPGCP 22:32
PROVIDERS: ADMIT Family Medicine; ATTEND Family Medicine
DX: K83.0 Cholangitis (principal); R18.8 Other ascites; K74.60 Unspecified cirrhosis of liver; K52.9 Noninfective gastroenteritis and colitis, unspecified; E10.65 Type 1 diabetes mellitus with hyperglycemia; D72.825 Bandemia; N20.0 Calculus of kidney; D64.9 Anemia, unspecified; K73.9 Chronic hepatitis, unspecified; E87.6 Hypokalemia; K86.89 Other specified diseases of pancreas; R82.90 Unspecified abnormal findings in urine; Z79.4 Long term (current) use of insulin; Z85.72 Personal history of non-Hodgkin lymphomas; Z88.5 Allergy status to narcotic agent; Z90.81 Acquired absence of spleen; Z92.21 Personal history of antineoplastic chemotherapy
CPT/HCPCS: 74177; 74181; 76377; 76937; 80048; 80053; 80076; 81001; 82103; 82140; 82948; 83690; 83735; 85007; 85027; 85610; 87328; 87329; 87493; 87506; 96374; J1170; J1815; J2405; J2543; J3480; Q9967

== ENCOUNTER 2017-08-10 13:43 | Emergency (ER) | payer OTHER ==
[~2017-08-10] VITALS: Ht 162.6 cm; Wt 48.0 kg
[~2017-08-10 13:43] MED LIST changes: +CREON24 PO; -HUMALOG SQ; -LANTUS2P SQ; +LEVEMIR SQ; +METR1TAB76 PO; +Ursodiol PO
[2017-08-10 13:54] VITALS: BP 111/81; PULSE 116; RESP 17; TEMP 98.5; O2SAT 99
[2017-08-10] MEDS ORDERED: SODIUM CHLOR 0.9% 1000 ML INJ 1,000 ML IV SCH (16:17)
[2017-08-10] MEDS ORDERED: SODIUM CHLORIDE 0.9% FLUSH 10 ML FLUSH IV FLUSH PRN (16:30)
[2017-08-10] MEDS ORDERED: ONDANSETRON HCL 4 MG/2 ML VIAL IVP ONE (16:30)
--- NOTE | 2017-08-10 16:35 | PD ---
HPI Chief Complaint: GI Complaint Time Seen by Provider: 16:27 Travel History International Travel<30 days: No Contact w/Intl Traveler<30days: No Traveled to known affect area: No History of Present Illness HPI 47-year-old female patient with history of sclerosing cholangitis, cirrhosis, ascites, recently admitted to the hospital for colitis and ascites, here today because she has had increase right upper quadrant abdominal pain and right flank pain which she states is a 10 out of 10. She has been nauseous, vomiting multiple times. She denies any diarrhea, fevers, or other symptoms. She states that it is a worsening of her usual abdominal pains. Modifying Factors: None Associated Signs & Symptoms: Right upper quadrant abdominal pain, nausea and vomiting Risk Factors: History of sclerosing cholangitis PFSH Past Medical History Hx Anticoagulant Therapy: No Arthritis: No Asthma: No Autoimmune Disease: No Blood Disorders: No Anxiety: No Depression: No Heart Rhythm Problems: No Cancer: Yes (HX NON HODGKINS LYMPHOMA) Cardiovascular Problems: No High Cholesterol: No Chemotherapy: Yes Chest Pain: No Congestive Heart Failure: No Cirrhosis: Yes COPD: No Cerebrovascular Accident: No Diabetes: Yes (TYPE 1) Diminished Hearing: No Endocrine: No Gastrointestinal Disorders: Yes (sclerosing cholangitis) GERD: No Genitourinary: No Headaches: No Hepatitis: No Hiatal Hernia: No Heparin Induced Thrombocytopen: No Hypertension: No Immune Disorder: No Implanted Vascular Access Dvce: Yes Kidney Stones: Yes Musculoskeletal: No Neurologic: No Psychiatric: No Reproductive: No Respiratory: No Immunizations Current: No Migraines: No Radiation Therapy: No Renal Failure: No Seizures: No Sickle Cell Disease: No Sleep Apnea: No Thyroid Disease: No Ulcer: Yes Menopausal: Yes : 2 Para: 2 Miscarriage: 0 : 0 Past Surgical History Abdominal Surgery: Yes (splenectomy, liver biopsy) AICD: No Arteriovenous Shunt: No Body Medical Devices: BILIARY DRAIN Cardiac Surgery: No Cholecystectomy: Yes Ear Surgery: No Endocrine Surgery: No Eye Surgery: No Genitourinary Surgery: No Gynecologic Surgery: No Hysterectomy: No Insulin Pump: No Joint Replacement: No Neurologic Surgery: No Oral Surgery: No Pacemaker: No Thoracic Surgery: No Other Surgery: Yes (BILIARY DRAIN PLACED, LIVER BIOPSY, biliary stents) Social History Alcohol Use: No (pt denies) Tobacco Use: No (pt denies ) Substance Use: No Allergies-Medications (Allergen,Severity, Reaction): Coded Allergies: fentanyl (Verified Allergy, Severe, SOB, 08/01/17) gadobenic acid (Verified Allergy, Severe, BREATHING PROBLEMS, N/V,CHILLS, 08/01/17) gadodiamide (Verified Allergy, Severe, BREATHING PROBLEMS, N/V,CHILLS, ) gadoteridol (Verified Allergy, Severe, BREATHING PROBLEMS, N/V,CHILLS, ) ketorolac (Verified Allergy, Severe, Shortness of Breath, 08/01/17) morphine (Verified Allergy, Severe, SOB, 08/01/17) tramadol (Verified Allergy, Mild, Shortness of Breath, 08/01/17) Gadolinium-Containing Contrast Medi (Verified Adverse Reaction, Severe, nauseas /vomiting, 08/01/17) MRI PRECAUTION (Verified Adverse Reaction, Severe, NAUSEA; PER PATIENT IT IS A GADOLINIUM ALLERGY KMD 11/25/12, 08/01/17) Reported Meds & Prescriptions Reported Meds & Active Scripts Active Metronidazole 500 Mg Tab 500 Mg PO QID 5 Days Levemir Inj (Insulin Detemir) 1,000 unit/ 10 ML Vial 7 Units SQ DAILY Do not mix with any other Insulin. Creon (Amylase/Lipase/Protease) 24,000-76,000-120,000 Units Cap 1 Cap PO TID [Ursodiol] 300 MG Cap 300 Mg PO Q12HR Review of Systems Except as stated in HPI: all other systems reviewed are Neg Physical Exam Narrative GENERAL: Thin well-developed middle-age female patient in moderate distress. Awake and oriented 3. SKIN: Focused skin assessment warm/dry. HEAD: Atraumatic. Normocephalic. EYES: Pupils equal and round. No scleral icterus. No injection or drainage. ENT: No nasal bleeding or discharge. Mucous membranes pink and moist. NECK: Trachea midline. No JVD. CARDIOVASCULAR: Regular rate and rhythm. No murmur appreciated. RESPIRATORY: No accessory muscle use. Clear to auscultation. Breath sounds equal bilaterally. GASTROINTESTINAL: Abdomen soft, right upper quadrant epigastric tenderness without guarding or rebound, nondistended. Hepatic and splenic margins not palpable. MUSCULOSKELETAL: No obvious deformities. No clubbing. No cyanosis. No edema. NEUROLOGICAL: Awake and alert. No obvious cranial nerve deficits. Motor grossly within normal limits. Normal speech. PSYCHIATRIC: Appropriate mood and affect; insight and judgment normal. Data Data Last Documented VS Vital Signs Date Time Temp Pulse Resp B/P (MAP) Pulse Ox O2 Delivery O2 Flow Rate FiO2 08/10/17 17:52 100 08/10/17 13:54 98.5 116 17 111/81 (91) Orders Orders Complete Blood Count With Diff (08/10/17 16:17) Comprehensive Metabolic Panel (08/10/17 16:17) Lipase (08/10/17 16:17) Urinalysis - C+S If Indicated (08/10/17 16:17) Iv Access Insert/Monitor (08/10/17 16:17) Ecg Monitoring (08/10/17 16:17) Oximetry (08/10/17 16:17) Ondansetron Inj (Zofran Inj) (08/10/17 16:30) Sodium Chlor 0.9% 1000 Ml Inj (Ns 1000 M (08/10/17 16:17) Sodium Chloride 0.9% Flush (Ns Flush) (08/10/17 16:30) Us Abdomen Gallbladder (08/10/17 16:35) Hydromorphone Pf Inj (Dilaudid Pf Inj) (08/10/17 17:45) Labs Laboratory Tests Test 08/10/17 16:45 White Blood Count 11.6 TH/MM3 Red Blood Count 4.43 MIL/MM3 Hemoglobin 12.9 GM/DL Hematocrit 38.0 % Mean Corpuscular Volume 85.7 FL Mean Corpuscular Hemoglobin 29.2 PG Mean Corpuscular Hemoglobin Concent 34.0 % Red Cell Distribution Width 17.3 % Platelet Count 300 TH/MM3 Mean Platelet Volume 11.5 FL CBC Comment AUTO DIFF Differential Total Cells Counted 100 Neutrophils % (Manual) 68 % Band Neutrophils % 3 % Lymphocytes % 23 % Monocytes % 6 % Neutrophils # (Manual) 8.2 TH/MM3 Differential Comment FINAL DIFF MANUAL Platelet Estimate NORMAL Platelet Morphology Comment ENLARGED Target Cells 1+ Ovalocytes 1+ Blood Urea Nitrogen 6 MG/DL Creatinine 0.52 MG/DL Random Glucose 435 MG/DL Total Protein 7.2 GM/DL Albumin 2.1 GM/DL Calcium Level 8.5 MG/DL Alkaline Phosphatase 1834 U/L Aspartate Amino Transf (AST/SGOT) 231 U/L Alanine Aminotransferase (ALT/SGPT) 130 U/L Total Bilirubin 3.2 MG/DL Sodium Level 132 MEQ/L Potassium Level 4.0 MEQ/L Chloride Level 98 MEQ/L Carbon Dioxide Level 24.5 MEQ/L Anion Gap 10 MEQ/L Estimat Glomerular Filtration Rate 126 ML/MIN Lipase 70 U/L [facility] Medical Decision Making Medical Screen Exam Complete: Yes Emergency Medical Condition: Yes Medical Record Reviewed: Yes Interpretation(s) Laboratory Tests Test 08/10/17 16:45 White Blood Count 11.6 TH/MM3 (4.0-11.0) Red Cell Distribution Width 17.3 % (11.6-17.2) Mean Platelet Volume 11.5 FL (7.0-11.0) Neutrophils # (Manual) 8.2 TH/MM3 (1.8-7.7) Platelet Morphology Comment ENLARGED (NORMAL) Target Cells 1+ (NORMAL) Ovalocytes 1+ (NORMAL) Blood Urea Nitrogen 6 MG/DL (7-18) Random Glucose 435 MG/DL (74-106) Albumin 2.1 GM/DL (3.4-5.0) Alkaline Phosphatase 1834 U/L (45-117) Aspartate Amino Transf (AST/SGOT) 231 U/L (15-37) Alanine Aminotransferase (ALT/SGPT) 130 U/L (10-53) Total Bilirubin 3.2 MG/DL (0.2-1.0) Sodium Level 132 MEQ/L (136-145) Lipase 70 U/L (73-393) Differential Diagnosis Right upper quadrant tenderness: Gastritis versus gastroenteritis versus cholecystitis versus biliary obstruction Narrative Course Lab work shows significant liver enzyme elevations but this appears to be fairly baseline for this patient. Lipase was not significantly elevated. Patient was given IV fluids, Dilaudid, and Zofran. On reevaluation in the ER, she appears to feel improved and did not have further vomiting episodes. Ultrasound of the right upper quadrant did not show any signs of acute processes , shows cirrhosis. At this point, I have discussed findings with the patient and considering she is feeling better, and planning to release the patient with follow-up to her GI doctor. Return for worsening in symptoms as necessary. Physician Communication Physician Communication Patient is signed out to Dr. Bishop at 7 PM pending urine and reevaluation. Diagnosis Primary Impression: abdominal pain, acute and chronic Condition: Stable Franky Flores MD Aug 10, 2017 16:35
[2017-08-10 17:12] LABS: HEMOGLOBIN 12.9 GM/DL (11.6-15.3); MEAN CELL VOLUME 85.7 FL (80.0-100.0); MEAN CORPUSCULAR HEMOGLOBIN 29.2 PG (27.0-34.0); MEAN PLATELET VOLUME 11.5 FL (7.0-11.0); PLATELET COUNT 300 TH/MM3 (150-450); RED BLOOD COUNT 4.43 MIL/MM3 (4.00-5.30); RED CELL DISTRIBUTION WIDTH 17.3 % (11.6-17.2); WHITE BLOOD COUNT 11.6 TH/MM3 (4.0-11.0)
[2017-08-10] MEDS ORDERED: HYDROmorphone HCL PF 1 MG/ML VIAL IV PUSH ONE (17:30)
[2017-08-10 17:35] LABS: ALBUMIN 2.1 GM/DL (3.4-5.0); ALT (GPT) 130 U/L (10-53); AST (GOT) 231 U/L (15-37); BICARBONATE 24.5 MEQ/L (21.0-32.0); BLOOD UREA NITROGEN 6 MG/DL (7-18); CALCIUM 8.5 MG/DL (8.5-10.1); CHLORIDE 98 MEQ/L (98-107); CREATININE 0.52 MG/DL (0.50-1.00); GLOMERULAR FILTRATION RATE 126 ML/MIN (>89); GLUCOSE,RANDOM 435 MG/DL (74-106); SODIUM (NA) 132 MEQ/L (136-145)
[2017-08-10] MEDS ORDERED: HYDROmorphone HCL PF 2 MG/ML VIAL IV ONE (17:45)
[2017-08-10 17:52] VITALS: O2SAT 100
[2017-08-10 17:54] LABS: ALKALINE PHOSPHATASE 1834 U/L (45-117); TOTAL BILIRUBIN ADULT 3.2 MG/DL (0.2-1.0); TOTAL PROTEIN 7.2 GM/DL (6.4-8.2)
[2017-08-10 18:06] LABS: BANDS 3 % (0-6); LYMPHOCYTES 23 % (9-44); MONOCYTES 6 % (0-8); NEUTROPHIL # MANUAL DIFF 8.2 TH/MM3 (1.8-7.7); POLYS (SEG NEUTROPHILS) 68 % (16-70)
[2017-08-10 18:07] LABS: OVALOCYTES 1+ (NORMAL); TARGET CELLS 1+ (NORMAL)
--- NOTE | 2017-08-10 18:23 | RADRPT ---
EXAM DATE/TIME: 08/10/2017 17:48 [facility] COMPARISON: CT ABDOMEN & PELVIS W CONTRAST, June 13, 2016, 19:32. CT ABDOMEN & PELVIS W CONTRAST, July 19 017, 16:00. US ABDOMEN - GALLBLADDER, April 14, 2016, 15:42. INDICATIONS : Nausea/Vomiting. MEDICAL HISTORY : Enlarged liver. Cholangitis. Diabetes. Kidney stones. Liver tumor. Carcinoma, non-hodgkins lymphoma. Chemotherapy. Cirrhosis. MRSA. SURGICAL HISTORY : Cholecystectomy. Splenectomy. Liver biopsy. Bile duct stent. Mass removal lower left abdomen. ENCOUNTER: Subsequent ACUITY: > 1 year PAIN SCORE: 9/10 LOCATION: Right upper quadrant MEASUREMENTS: LIVER: 18.8 cm length COMMON DUCT: 5 mm RIGHT KIDNEY: 10.4 x 5.2 x 5.7 cm FINDINGS: LIVER: Liver appears enlarged. The anterior margin is nodular. Focal hepatic lesions are not seen. There is a small amount of fluid seen around the liver. COMMON DUCT: No intraluminal mass or stone visualized. GALLBLADDER: The gallbladder is not identified. PANCREAS: The visualized portions are within normal limits. RIGHT KIDNEY: No evidence of hydronephrosis, stone, or mass. CONCLUSION: Enlarged liver with changes of cirrhosis. Mele Cuba MD on August 10, 2017 at 18:17 Board Certified Radiologist. This report was verified electronically.
== END 2017-08-10 19:30 | disposition home or self-care (01) ==
LOC: NEPC 13:43
DX: R10.11 Right upper quadrant pain (principal); E11.9 Type 2 diabetes mellitus without complications; R11.2 Nausea with vomiting, unspecified; K74.60 Unspecified cirrhosis of liver; Z88.5 Allergy status to narcotic agent; Z79.4 Long term (current) use of insulin
CPT/HCPCS: 76705; 80053; 83690; 85007; 85027; 96361; 96374; 96375; 99284; J1170; J2405; J7030

== ENCOUNTER 2017-09-07 12:16 | Emergency (ER) | payer OTHER ==
[~2017-09-07] VITALS: Ht 162.6 cm; Wt 48.0 kg
[2017-09-07 12:19] VITALS: BP 118/70; PULSE 93; RESP 17; TEMP 98.6; O2SAT 99
[2017-09-07] MEDS ORDERED: SODIUM CHLORIDE 0.9% FLUSH 10 ML FLUSH IV FLUSH PRN (12:45)
[2017-09-07] MEDS ORDERED: ONDANSETRON HCL 4 MG/2 ML VIAL IVP ONE (12:45)
[2017-09-07] MEDS ORDERED: HYDROmorphone HCL PF 1 MG/ML VIAL IV PUSH ONE ×2 (12:45→16:00)
[2017-09-07 13:46] LABS: HEMATOCRIT 34.7 % (35.0-46.0); HEMOGLOBIN 11.6 GM/DL (11.6-15.3); MEAN CELL VOLUME 86.2 FL (80.0-100.0); MEAN CORPUSCULAR HEMOGLOBIN 28.8 PG (27.0-34.0); MEAN CORPUSCULAR HGB CONC 33.4 % (32.0-36.0); MEAN PLATELET VOLUME 11.3 FL (7.0-11.0); PLATELET COUNT 358 TH/MM3 (150-450); RED BLOOD COUNT 4.02 MIL/MM3 (4.00-5.30); RED CELL DISTRIBUTION WIDTH 18.7 % (11.6-17.2); WHITE BLOOD COUNT 10.3 TH/MM3 (4.0-11.0)
[2017-09-07 13:54] LABS: PROTHROMBIN TIME - PATIENT 10.1 SEC (9.8-11.6)
[2017-09-07 13:55] LABS: BILIRUBIN, URINE NEG (NEG); BLOOD, URINE NEG (NEG); GLUCOSE,URINE 1000 mg/dL (NEG); KETONE, URINE NEG (NEG); MUCUS URINE FEW /lpf (OCC); NITRITE,URINE NEG (NEG); PH, URINE 6.5 (5.0-8.5); SQUAMOUS EPITHELIAL CELL URINE 15 /hpf (0-5); URINE COLOR YELLOW (YELLW/STRAW); URINE LEUKOCYTE ESTERASE NEG (NEG)
[2017-09-07] MEDS ORDERED: HYDROmorphone HCL PF 2 MG/ML VIAL IV PUSH ONE ×2 (14:00→16:15)
--- NOTE | 2017-09-07 14:10 | PD ---
HPI Chief Complaint: Abdominal Pain Time Seen by Provider: 12:34 Travel History International Travel<30 days: No Contact w/Intl Traveler<30days: No Traveled to known affect area: No History of Present Illness HPI Patient is a 47 year old female who comes in complaining of abdominal pain, nausea, vomiting, and diarrhea. She has been here multiple times for the same thing. She has history of primary sclerosing cholangitis. She says these symptoms have been going on for the past 10 days to 2 weeks. She has not taken anything for her symptoms. She says she was trying to get an appointment with her new GI doctor, but has not been able to. She feels like her ascites has increased and she is more jaundice. She denies fevers, but has had chills. She says her pain goes from the middle of her back to the right side of her abdomen. Severity is mild to moderate. PFSH Past Medical History Hx Anticoagulant Therapy: No Arthritis: No Asthma: No Autoimmune Disease: No Blood Disorders: No Anxiety: No Depression: No Heart Rhythm Problems: No Cancer: Yes (HX NON HODGKINS LYMPHOMA) Cardiovascular Problems: No High Cholesterol: No Chemotherapy: Yes Chest Pain: No Congestive Heart Failure: No Cirrhosis: Yes COPD: No Cerebrovascular Accident: No Diabetes: Yes (TYPE 1) Patient Takes Glucophage: No Diminished Hearing: No Endocrine: No Gastrointestinal Disorders: Yes (sclerosing cholangitis) GERD: No Genitourinary: No Headaches: No Hepatitis: No Hiatal Hernia: No Heparin Induced Thrombocytopen: No Hypertension: No Immune Disorder: No Implanted Vascular Access Dvce: Yes Kidney Stones: Yes Medical other: Yes (HX OF ENLARGED SPLEEN, SPLENECTOMY 2004) Musculoskeletal: No Neurologic: No Psychiatric: No Reproductive: No Respiratory: No Immunizations Current: No Migraines: No Radiation Therapy: No Renal Failure: No Seizures: No Sickle Cell Disease: No Sleep Apnea: No Thyroid Disease: No Ulcer: Yes ?: Not Menopausal: Yes : 2 Para: 2 Miscarriage: 0 : 0 Past Surgical History Abdominal Surgery: Yes (splenectomy, liver biopsy) AICD: No Arteriovenous Shunt: No Body Medical Devices: BILIARY DRAIN Cardiac Surgery: No Cholecystectomy: Yes Ear Surgery: No Endocrine Surgery: No Eye Surgery: No Genitourinary Surgery: No Gynecologic Surgery: No Hysterectomy: No Insulin Pump: No Joint Replacement: No Neurologic Surgery: No Oral Surgery: No Pacemaker: No Thoracic Surgery: No Other Surgery: Yes (BILIARY DRAIN PLACED, LIVER BIOPSY, biliary stents, SPLEENECTOMY) Social History Alcohol Use: No (pt denies) Tobacco Use: No (pt denies ) Substance Use: No Allergies-Medications (Allergen,Severity, Reaction): Coded Allergies: fentanyl (Verified Allergy, Severe, SOB, 09/07/17) gadobenic acid (Verified Allergy, Severe, BREATHING PROBLEMS, N/V,CHILLS, 09/07/17) gadodiamide (Verified Allergy, Severe, BREATHING PROBLEMS, N/V,CHILLS, ) gadoteridol (Verified Allergy, Severe, BREATHING PROBLEMS, N/V,CHILLS, ) ketorolac (Verified Allergy, Severe, Shortness of Breath, 09/07/17) morphine (Verified Allergy, Severe, SOB, 09/07/17) tramadol (Verified Allergy, Mild, Shortness of Breath, 09/07/17) Gadolinium-Containing Contrast Medi (Verified Adverse Reaction, Severe, nauseas /vomiting, 09/07/17) MRI PRECAUTION (Verified Adverse Reaction, Severe, NAUSEA; PER PATIENT IT IS A GADOLINIUM ALLERGY KMD 11/25/12, 09/07/17) Reported Meds & Prescriptions Reported Meds & Active Scripts Active Metronidazole 500 Mg Tab 500 Mg PO QID 5 Days Levemir Inj (Insulin Detemir) 1,000 unit/ 10 ML Vial 7 Units SQ DAILY Do not mix with any other Insulin. Creon (Amylase/Lipase/Protease) 24,000-76,000-120,000 Units Cap 1 Cap PO TID [Ursodiol] 300 MG Cap 300 Mg PO Q12HR Review of Systems Except as stated in HPI: all other systems reviewed are Neg General / Constitutional: Positive: Chills, No: Fever HENT: No: Headaches, Lightheadedness Cardiovascular: No: Chest Pain or Discomfort Respiratory: No: Shortness of Breath Gastrointestinal: Positive: Nausea, Vomiting, Diarrhea, Abdominal Pain Genitourinary: No: Dysuria Musculoskeletal: No: Myalgias Skin: Positive Change in Pigmentation Neurologic: No: Weakness, Dizziness Physical Exam Narrative GENERAL: Awake and alert, in no acute distress. SKIN: Focused skin assessment warm/dry. No wounds or signs of infection. HEAD: Atraumatic. Normocephalic. EYES: Pupils equal and round. No scleral icterus. ENT: Mucous membranes pink and moist. NECK: Trachea midline. No JVD. CARDIOVASCULAR: Regular rate and rhythm. No murmur appreciated. RESPIRATORY: No accessory muscle use. Clear to auscultation. Breath sounds equal bilaterally. GASTROINTESTINAL: Abdomen soft, non-tender, diffuse tenderness to palpation, worse in the upper abdomen. No rebound or guarding. MUSCULOSKELETAL: No obvious deformities. No clubbing. No cyanosis. Mild edema of the lower extremities bilaterally. NEUROLOGICAL: Awake and alert. No obvious cranial nerve deficits. Motor grossly within normal limits. Normal speech. PSYCHIATRIC: Appropriate mood and affect; insight and judgment normal. Data Data Last Documented VS Vital Signs Date Time Temp Pulse Resp B/P (MAP) Pulse Ox O2 Delivery O2 Flow Rate FiO2 09/07/17 12:19 98.6 93 17 118/70 (86) 99 Orders Orders Complete Blood Count With Diff (09/07/17 12:42) Comprehensive Metabolic Panel (09/07/17 12:42) Lipase (09/07/17 12:42) Lactic Acid (09/07/17 12:42) Prothrombin Time / Inr (Pt) (09/07/17 12:42) Act Partial Throm Time (Ptt) (09/07/17 12:42) Urinalysis - C+S If Indicated (09/07/17 12:42) Ct Abd/Pel W Iv Contrast(Rout) (09/07/17 12:42) Iv Access Insert/Monitor (09/07/17 12:42) Ecg Monitoring (09/07/17 12:42) Oximetry (09/07/17 12:42) Ondansetron Inj (Zofran Inj) (09/07/17 12:45) Sodium Chloride 0.9% Flush (Ns Flush) (09/07/17 12:45) Hydromorphone Pf Inj (Dilaudid Pf Inj) (09/07/17 12:45) Hydromorphone Pf Inj (Dilaudid Pf Inj) (09/07/17 14:00) Insulin Human Regular Inj (Novolin R Inj (09/07/17 15:15) Iohexol 350 Inj (Omnipaque 350 Inj) (09/07/17 15:46) Prochlorperazine Inj (Compazine Inj) (09/07/17 16:00) Hydromorphone Pf Inj (Dilaudid Pf Inj) (09/07/17 16:15) Labs Laboratory Tests Test 09/07/17 13:16 09/07/17 13:17 White Blood Count 10.3 TH/MM3 Red Blood Count 4.02 MIL/MM3 Hemoglobin 11.6 GM/DL Hematocrit 34.7 % Mean Corpuscular Volume 86.2 FL Mean Corpuscular Hemoglobin 28.8 PG Mean Corpuscular Hemoglobin Concent 33.4 % Red Cell Distribution Width 18.7 % Platelet Count 358 TH/MM3 Mean Platelet Volume 11.3 FL CBC Comment AUTO DIFF Differential Total Cells Counted 100 Neutrophils % (Manual) 75 % Band Neutrophils % 7 % Lymphocytes % 10 % Monocytes % 7 % Basophils % 1 % Neutrophils # (Manual) 8.4 TH/MM3 Differential Comment FINAL DIFF MANUAL Platelet Estimate NORMAL Platelet Morphology Comment ENLARGED Target Cells 2+ Prothrombin Time 10.1 SEC Prothromb Time International Ratio 1.0 RATIO Activated Partial Thromboplast Time 24.7 SEC Blood Urea Nitrogen 5 MG/DL Creatinine 0.51 MG/DL Random Glucose 532 MG/DL Total Protein 6.3 GM/DL Albumin 1.9 GM/DL Calcium Level 7.7 MG/DL Alkaline Phosphatase 1195 U/L Aspartate Amino Transf (AST/SGOT) 154 U/L Alanine Aminotransferase (ALT/SGPT) 108 U/L Total Bilirubin 2.8 MG/DL Sodium Level 136 MEQ/L Potassium Level 4.0 MEQ/L Chloride Level 103 MEQ/L Carbon Dioxide Level 23.3 MEQ/L Anion Gap 10 MEQ/L Estimat Glomerular Filtration Rate 129 ML/MIN Lactic Acid Level 1.7 mmol/L Lipase 80 U/L Urine Color YELLOW Urine Turbidity CLEAR Urine pH 6.5 Urine Specific Hulbert 1.026 Urine Protein NEG mg/dL Urine Glucose (UA) 1000 mg/dL Urine Ketones NEG mg/dL Urine Occult Blood NEG Urine Nitrite NEG Urine Bilirubin NEG Urine Urobilinogen LESS THAN 2.0 MG/DL Urine Leukocyte Esterase NEG Urine RBC LESS THAN 1 /hpf Urine WBC 1 /hpf Urine Squamous Epithelial Cells 15 /hpf Urine Mucus FEW /lpf Microscopic Urinalysis Comment CULT NOT INDICATED MDM Medical Decision Making Medical Screen Exam Complete: Yes Emergency Medical Condition: Yes Medical Record Reviewed: Yes Differential Diagnosis worsening liver function vs worsening ascites vs dehydration vs electrolyte abnormalities Narrative Course Patient is a 47-year-old female who comes in complaining of abdominal pain, nausea, vomiting, diarrhea. She is here often for these complaints. Exam shows abdominal tenderness, specifically in the upper abdomen. IV established, labs sent. Labs show elevated liver function tests as well as bilirubin, but this is unchanged from her previous. CT abdomen pelvis performed shows no changes from previous exam. Last 24 hours Impressions Abdomen/Pelvis CT 09/07/17 1242 Signed Impressions: Service Date/Time: Thursday, September 07, 2017 15:33 - CONCLUSION: 1. Stable appearance of the abdomen with a nodular hepatic border and enlargement of the left hepatic lobe characteristic of a reported history of cirrhosis. Stable pneumobilia. 2. Pancreas is atrophic with stable dilation of the pancreatic duct. 3. Reported history of splenectomy and cholecystectomy. There is a decompressed tubular structure in the gallbladder fossa, however. This is unchanged. 4. Bilateral nonobstructing renal calculi, the largest in the lower pole of the left measuring 7 mm in diameter. 5. Mild peritoneal ascites, unchanged. 6. 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 Noel Isaac MD Given pain medicine and anti-emetics. Given insulin for her diabetes. She is able to drink water without vomiting. Should be discharged with a prescription for Zofran. She is advised follow-up with her doctors. Advised return anytime for any worsening symptoms. Diagnosis Primary Impression: Abdominal pain, chronic, with exacerbations Patient Instructions: Abdominal Pain (ED), Acute Nausea and Vomiting (ED), General Instructions Additional Instructions: Follow-up with your doctors. Take Zofran as needed for nausea. Return to the ED as needed for any worsening symptoms. Scripts Ondansetron Odt (Zofran Odt) 4 Mg Tab 4 MG SL Q6HR Y for Nausea/Vomiting, #12 TAB 0 Refills Prov: Chelly Georges MD 09/07/17 Disposition: 01 DISCHARGE HOME Condition: Stable Chelly Georges MD Sep 07, 2017 14:10
[2017-09-07 14:22] LABS: ALBUMIN 1.9 GM/DL (3.4-5.0); ALKALINE PHOSPHATASE 1195 U/L (45-117); ALT (GPT) 108 U/L (10-53); AST (GOT) 154 U/L (15-37); BICARBONATE 23.3 MEQ/L (21.0-32.0); BLOOD UREA NITROGEN 5 MG/DL (7-18); CALCIUM 7.7 MG/DL (8.5-10.1); CHLORIDE 103 MEQ/L (98-107); CREATININE 0.51 MG/DL (0.50-1.00); GLOMERULAR FILTRATION RATE 129 ML/MIN (>89); SODIUM (NA) 136 MEQ/L (136-145); TOTAL BILIRUBIN ADULT 2.8 MG/DL (0.2-1.0); TOTAL PROTEIN 6.3 GM/DL (6.4-8.2)
[2017-09-07 14:31] LABS: BANDS 7 % (0-6); BASOPHILS 1 % (0-2); LYMPHOCYTES 10 % (9-44); MONOCYTES 7 % (0-8); NEUTROPHIL # MANUAL DIFF 8.4 TH/MM3 (1.8-7.7); POLYS (SEG NEUTROPHILS) 75 % (16-70); TARGET CELLS 2+ (NORMAL)
[2017-09-07 14:32] LABS: GLUCOSE,RANDOM 532 MG/DL (74-106)
[2017-09-07] MEDS ORDERED: INSULIN HUMAN REGULAR 1,000 UNITS/10 ML VIAL IV PUSH ONE (15:15)
[2017-09-07] MEDS ORDERED: IOHEXOL 350 MG/ML 10 ML VIAL (for RAD DIAG) IVCONTRAST ONE (15:46)
[2017-09-07] MEDS ORDERED: PROCHLORPERAZINE INJ 10 MG/2 ML VIAL IV PUSH ONE (16:00)
--- NOTE | 2017-09-07 16:02 | RADRPT ---
EXAM DATE/TIME: 09/07/2017 15:33 [facility] COMPARISON: CT ABDOMEN & PELVIS W CONTRAST, August 01, 2017, 19:02. INDICATIONS : Abdomen pain. IV CONTRAST: 71 cc Omnipaque 350 (iohexol) IV ORAL CONTRAST: No oral contrast ingested. RADIATION DOSE: 4.5 CTDIvol (mGy) MEDICAL HISTORY : Lymphoma. Cirrhosis. Renal calculi. SURGICAL HISTORY : Splenectomy. Cholecystectomy. ENCOUNTER: Initial ACUITY: 1 day PAIN SCALE: 5/10 LOCATION: Bilateral abdomen TECHNIQUE: Volumetric scanning of the abdomen and pelvis was performed. Using automated exposure control and ad justment of the mA and/or kV according to patient size, radiation dose was kept as low as reasonably achievable to obtain optimal diagnostic quality images. DICOM format image data is available electro nically for review and comparison. FINDINGS: LOWER LUNGS: The visualized lower lungs are clear. LIVER: Nodular appearance of the liver with enlargement of the left hepatic lobe characteristic of a reporte d history of cirrhosis. Stable biliary air. History of prior cholecystectomy but there does appear to be a decompressed cystic structure in the gallbladder fossa. SPLEEN: Not visualized characteristic of a reported history of splenectomy. PANCREAS: Atrophic with some dilation of the pancreatic duct. KIDNEYS: Normal in size and shape. Nonobstructing stones in the lower pole collecting systems of both kidneys. The largest on the left measures 7 mm in diameter. ADRENAL GLANDS: Within normal limits. VASCULAR: There is no aortic aneurysm. BOWEL/MESENTERY: Markedly diffuse peritoneal ascites.. ABDOMINAL WALL: Within normal limits. RETROPERITONEUM: There is no lymphadenopathy. BLADDER: No wall thickening or mass. REPRODUCTIVE: Varicosities on the left side of the uterus with a dilated left gonadal vein. INGUINAL: There is no lymphadenopathy or hernia. MUSCULOSKELETAL: Within normal limits for patient age. CONCLUSION: 1. Stable appearance of the abdomen with a nodular hepatic border and enlargement of the left hepatic lobe characteristic of a reported history of cirrhosis. Stable pneumobilia. 2. Pancreas is atrophic with stable dilation of the pancreatic duct. 3. Reported history of splenectomy and cholecystectomy. There is a decompressed tubular structure in the gallbladder fossa, however. This is unchanged. 4. Bilateral nonobstructing renal calculi, the largest in the lower pole of the left measuring 7 mm i n diameter. 5. Mild peritoneal ascites, unchanged. 6. 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 Noel Isaac MD on September 07, 2017 at 15:54 Board Certified Radiologist. This report was verified electronically.
[2017-09-07] MEDS ORDERED: ZOFR4TAB3 SL (16:24)
== END 2017-09-07 16:37 | disposition home or self-care (01) ==
LOC: NEPD 12:16
DX: R10.10 Upper abdominal pain, unspecified (principal); G89.29 Other chronic pain; R11.2 Nausea with vomiting, unspecified; R19.7 Diarrhea, unspecified; R18.8 Other ascites; M54.6 Pain in thoracic spine; K74.60 Unspecified cirrhosis of liver; E10.9 Type 1 diabetes mellitus without complications; Z79.4 Long term (current) use of insulin; Z87.19 Personal history of other diseases of the digestive system; Z87.442 Personal history of urinary calculi; Z85.72 Personal history of non-Hodgkin lymphomas
CPT/HCPCS: 74177; 80053; 81001; 83605; 83690; 85007; 85027; 85610; 85730; 96374; 96375; 96376; 99284; J0780; J1170; J1815; J2405; Q9967

== ENCOUNTER 2017-09-13 13:46 | Emergency (ER) | payer OTHER ==
[~2017-09-13] VITALS: Ht 162.6 cm; Wt 48.0 kg
[~2017-09-13 13:46] MED LIST changes: +ZOFR4TAB3 SL
[2017-09-13 13:53] VITALS: BP 145/97; PULSE 104; RESP 22; TEMP 98.3; O2SAT 98
--- NOTE | 2017-09-13 14:17 | PD ---
HPI Chief Complaint: Abdominal Pain Time Seen by Provider: 14:13 Travel History International Travel<30 days: No Contact w/Intl Traveler<30days: No Traveled to known affect area: No History of Present Illness HPI 47-year-old woman chronic recurrent abdominal pain attributed to cirrhosis and sclerosing cholangitis, here at the same. States it "feels worse than ever". Multiple ED visits over the past year, multiple rounds of imaging, multiple sets of labs. In the process of establishing follow-up with GI. Sees her primary physician. A little bit more lower extremity edema. No vomiting. History Past Medical History Narrative Medical Primary sclerosing cholangitis Cirrhosis Non-Hodgkin's lymphoma 2004, no recurrent disease Diabetes Biliary strictures Chronic recurrent abdominal pain Menopausal: Yes : 2 Para: 2 Social History Alcohol Use: No (pt denies) Tobacco Use: No (pt denies ) Allergies-Medications (Allergen,Severity, Reaction): Coded Allergies: fentanyl (Verified Allergy, Severe, SOB, 09/07/17) gadobenic acid (Verified Allergy, Severe, BREATHING PROBLEMS, N/V,CHILLS, 09/07/17) gadodiamide (Verified Allergy, Severe, BREATHING PROBLEMS, N/V,CHILLS, ) gadoteridol (Verified Allergy, Severe, BREATHING PROBLEMS, N/V,CHILLS, ) ketorolac (Verified Allergy, Severe, Shortness of Breath, 09/07/17) morphine (Verified Allergy, Severe, SOB, 09/07/17) tramadol (Verified Allergy, Mild, Shortness of Breath, 09/07/17) Gadolinium-Containing Contrast Medi (Verified Adverse Reaction, Severe, nauseas /vomiting, 09/07/17) MRI PRECAUTION (Verified Adverse Reaction, Severe, NAUSEA; PER PATIENT IT IS A GADOLINIUM ALLERGY KMD 11/25/12, 09/07/17) Reported Meds & Prescriptions Reported Meds & Active Scripts Active Zofran Odt (Ondansetron Odt) 4 Mg Tab 4 Mg SL Q6HR PRN Metronidazole 500 Mg Tab 500 Mg PO QID 5 Days Levemir Inj (Insulin Detemir) 1,000 unit/ 10 ML Vial 7 Units SQ DAILY Do not mix with any other Insulin. Creon (Amylase/Lipase/Protease) 24,000-76,000-120,000 Units Cap 1 Cap PO TID [Ursodiol] 300 MG Cap 300 Mg PO Q12HR Review of Systems Except as stated in HPI: all other systems reviewed are Neg Physical Exam Narrative GENERAL: Well-appearing 47-year-old woman, uncomfortable and nontoxic. SKIN: Focused skin assessment warm/dry. HEAD: Atraumatic. Normocephalic. CARDIOVASCULAR: Regular rate and rhythm. No murmur appreciated. RESPIRATORY: No accessory muscle use. Clear to auscultation. Breath sounds equal bilaterally. GASTROINTESTINAL: Abdomen is distended with ascites. Mild diffuse tenderness. No rebound or guarding. MUSCULOSKELETAL: No obvious deformities. No clubbing. No cyanosis. No edema. NEUROLOGICAL: Awake and alert. No obvious cranial nerve deficits. Motor grossly within normal limits. Normal speech. PSYCHIATRIC: Appropriate mood and affect; insight and judgment normal. Data Data Last Documented VS Vital Signs Date Time Temp Pulse Resp B/P (MAP) Pulse Ox O2 Delivery O2 Flow Rate FiO2 09/13/17 13:53 98.3 104 22 145/97 (113) 98 Orders Orders Hydromorphone (Dilaudid) (09/13/17 14:30) MDM Medical Decision Making Medical Screen Exam Complete: Yes Emergency Medical Condition: Yes Differential Diagnosis Cirrhosis, chronic abdominal pain, other Narrative Course This 47-year-old woman with chronic abdominal pain, at the same, multiple allergies. Extensive testing done in our system, extensive number of CAT scans this year alone, extensive sets of laboratory testing, here with the same. Recommend continue chronic opiates. I do not think she is repeat labs or imaging at this time. She can follow-up with her primary doctor if she is planning on doing. Diagnosis Primary Impression: Liver disease, chronic, with cirrhosis Additional Impressions: abdominal pain, acute and chronic PSC (primary sclerosing cholangitis) Additional Instructions: Continue current medications. Follow with her primary doctor in the next 1-2 days. Return to the emergency department for any new or worsening symptoms. Med/Other Pt SpecificInfo: Prescription(s) given Scripts Hydromorphone (Hydromorphone) 2 Mg Tab 2 MG PO Q8H Y for PAIN, #6 TAB 0 Refills Prov: Fadi Ashford MD 09/13/17 Disposition: 01 DISCHARGE HOME Condition: Stable Fadi Ashford MD Sep 13, 2017 14:17
[2017-09-13] MEDS ORDERED: HYDROmorphone HCL 2 MG TAB PO ONE (14:30)
[2017-09-13] MEDS ORDERED: HYDR2TAB PO (14:31)
== END 2017-09-13 15:06 | disposition home or self-care (01) ==
LOC: NEPD 13:46
DX: K74.60 Unspecified cirrhosis of liver (principal); K83.0 Cholangitis; G89.29 Other chronic pain; E11.9 Type 2 diabetes mellitus without complications; Z79.4 Long term (current) use of insulin
CPT/HCPCS: 99283

== ENCOUNTER 2017-10-08 09:43 | Emergency (ER) | payer OTHER ==
[~2017-10-08] VITALS: Ht 162.6 cm; Wt 48.0 kg
[~2017-10-08 09:43] MED LIST changes: +HYDR2TAB PO
[2017-10-08 09:47] VITALS: BP 140/82; PULSE 88; RESP 16; TEMP 97.8; O2SAT 100
[2017-10-08 10:03] VITALS: BP 145/90; PULSE 85; RESP 16; O2SAT 100
[2017-10-08] MEDS ORDERED: HYDROmorphone HCL PF 0.5 MG/0.5 ML SYRINGE ONE (10:07)
--- NOTE | 2017-10-08 10:09 | PD ---
HPI Chief Complaint: Abdominal Pain Time Seen by Provider: 09:54 Travel History International Travel<30 days: No Contact w/Intl Traveler<30days: No Traveled to known affect area: No History of Present Illness HPI 47 y/o female presents with nonbloody emesis and flank pain over the past couple days. She went to her primary doctor yesterday who advised her to come here if she got worse. She denies getting a Dilaudid prescription on her last visit and states that she does not take that medicine. She denies any other concurrent complaints. Quality is nonbloody. Severity is frequent. Duration is 1 week. She is present with her . She denies specific modifying factors. She has been here multiple times for similar visits. PFSH Past Medical History Hx Anticoagulant Therapy: No Arthritis: No Asthma: No Autoimmune Disease: No Blood Disorders: No Anxiety: No Depression: No Heart Rhythm Problems: No Cancer: Yes (HX NON HODGKINS LYMPHOMA) Cardiovascular Problems: No High Cholesterol: No Chemotherapy: Yes Chest Pain: No Congestive Heart Failure: No Cirrhosis: Yes COPD: No Cerebrovascular Accident: No Diabetes: Yes Patient Takes Glucophage: No Diminished Hearing: No Endocrine: No Gastrointestinal Disorders: Yes (sclerosing cholangitis) GERD: No Genitourinary: No Headaches: No Hepatitis: No Hiatal Hernia: No Heparin Induced Thrombocytopen: No Hypertension: No Immune Disorder: No Implanted Vascular Access Dvce: Yes Kidney Stones: Yes Musculoskeletal: No Neurologic: No Psychiatric: No Reproductive: No Respiratory: No Immunizations Current: No Migraines: No Radiation Therapy: No Renal Failure: No Seizures: No Sickle Cell Disease: No Sleep Apnea: No Thyroid Disease: No Ulcer: Yes Tetanus Vaccination: < 5 Years Influenza Vaccination: Yes ?: Not Menopausal: Yes : 2 Para: 2 Miscarriage: 0 : 0 Past Surgical History Abdominal Surgery: Yes (splenectomy, liver biopsy) AICD: No Arteriovenous Shunt: No Body Medical Devices: BILIARY DRAIN Cardiac Surgery: No Cholecystectomy: Yes Ear Surgery: No Endocrine Surgery: No Eye Surgery: No Genitourinary Surgery: No Gynecologic Surgery: No Hysterectomy: No Insulin Pump: No Joint Replacement: No Neurologic Surgery: No Oral Surgery: No Pacemaker: No Thoracic Surgery: No Other Surgery: Yes (BILIARY DRAIN PLACED, LIVER BIOPSY, biliary stents, SPLEENECTOMY) Social History Alcohol Use: No Tobacco Use: No Substance Use: No Allergies-Medications (Allergen,Severity, Reaction): Coded Allergies: fentanyl (Verified Allergy, Severe, SOB, 10/08/17) gadobenic acid (Verified Allergy, Severe, BREATHING PROBLEMS, N/V,CHILLS, 10/08/17) gadodiamide (Verified Allergy, Severe, BREATHING PROBLEMS, N/V,CHILLS, ) gadoteridol (Verified Allergy, Severe, BREATHING PROBLEMS, N/V,CHILLS, ) ketorolac (Verified Allergy, Severe, Shortness of Breath, 10/08/17) morphine (Verified Allergy, Severe, SOB, 10/08/17) tramadol (Verified Allergy, Mild, Shortness of Breath, 10/08/17) Gadolinium-Containing Contrast Medi (Verified Adverse Reaction, Severe, nauseas /vomiting, 10/08/17) MRI PRECAUTION (Verified Adverse Reaction, Severe, NAUSEA; PER PATIENT IT IS A GADOLINIUM ALLERGY KMD 11/25/12, 10/08/17) Reported Meds & Prescriptions Reported Meds & Active Scripts Active Zofran Odt (Ondansetron Odt) 4 Mg Tab 4 Mg SL Q8HR PRN Levemir Inj (Insulin Detemir) 1,000 unit/ 10 ML Vial 7 Units SQ DAILY Do not mix with any other Insulin. Review of Systems Except as stated in HPI: all other systems reviewed are Neg Physical Exam Narrative GENERAL: 47-year-old female who appears uncomfortable SKIN: Focused skin assessment warm/dry. HEAD: Atraumatic. Normocephalic. EYES: Pupils equal and round. No scleral icterus. No injection or drainage. ENT: No nasal bleeding or discharge. Mucous membranes pink and moist. NECK: Trachea midline. CARDIOVASCULAR: Regular rate and rhythm. RESPIRATORY: No accessory muscle use. Clear to auscultation. Breath sounds equal bilaterally. GASTROINTESTINAL: Abdomen soft, mild tenderness diffusely, nondistended. No rebound MUSCULOSKELETAL: No obvious deformities. No clubbing. No cyanosis. No midline pain or CVA tenderness NEUROLOGICAL: Awake and alert. No obvious cranial nerve deficits. Motor grossly within normal limits. Normal speech. Data Data Last Documented VS Vital Signs Date Time Temp Pulse Resp B/P (MAP) Pulse Ox O2 Delivery O2 Flow Rate FiO2 10/08/17 14:13 84 16 143/89 (107) 98 10/08/17 12:15 Room Air 10/08/17 09:47 97.8 Orders Orders Complete Blood Count With Diff (10/08/17 10:01) Comprehensive Metabolic Panel (10/08/17 10:01) Urinalysis - C+S If Indicated (10/08/17 10:01) Lipase (10/08/17 10:01) Ct Abd/Pel W/O Iv Contrast (10/08/17 ) Iv Access Insert/Monitor (10/08/17 10:01) Hydromorphone Pf Inj (Dilaudid Pf Inj) (10/08/17 10:15) Sodium Chlor 0.9% 1000 Ml Inj (Ns 1000 M (10/08/17 10:15) Hydromorphone Pf Inj (Dilaudid Pf Inj) (10/08/17 10:07) Ondansetron Odt (Zofran Odt) (10/08/17 10:30) Potassium Chloride Eff (K-Lyte Cl Eff) (10/08/17 12:15) Oral Rehydration (10/08/17 12:06) Chest, Pa & Lat (10/08/17 ) Metoclopramide Inj (Reglan Inj) (10/08/17 12:30) Ed Discharge Order (10/08/17 14:04) Labs Laboratory Tests Test 10/08/17 10:15 10/08/17 10:50 Urine Color YELLOW Urine Turbidity SLIGHT Urine pH 8.5 Urine Specific [place] 1.010 Urine Protein TRACE mg/dL Urine Glucose (UA) NEG mg/dL Urine Ketones NEG mg/dL Urine Occult Blood NEG Urine Nitrite NEG Urine Bilirubin SMALL Urine Urobilinogen 1.0 MG/DL Urine Leukocyte Esterase TRACE Urine RBC LESS THAN 1 /hpf Urine WBC 6 /hpf Urine Squamous Epithelial Cells 20 /hpf Urine Bacteria RARE /hpf Urine Mucus FEW /lpf Microscopic Urinalysis Comment CULT NOT INDICATED White Blood Count 9.3 TH/MM3 Red Blood Count 4.87 MIL/MM3 Hemoglobin 13.4 GM/DL Hematocrit 40.4 % Mean Corpuscular Volume 82.9 FL Mean Corpuscular Hemoglobin 27.5 PG Mean Corpuscular Hemoglobin Concent 33.1 % Red Cell Distribution Width 17.9 % Platelet Count 544 TH/MM3 Mean Platelet Volume 10.2 FL CBC Comment AUTO DIFF Differential Total Cells Counted 100 Neutrophils % (Manual) 90 % Lymphocytes % 4 % Monocytes % 6 % Neutrophils # (Manual) 8.4 TH/MM3 Differential Comment FINAL DIFF MANUAL Platelet Estimate HIGH Platelet Morphology Comment ENLARGED Target Cells 3+ Kelly-Albertson Bodies PRESENT Blood Urea Nitrogen 8 MG/DL Creatinine 0.38 MG/DL Random Glucose 109 MG/DL Total Protein 7.4 GM/DL Albumin 2.4 GM/DL Calcium Level 8.8 MG/DL Alkaline Phosphatase 1679 U/L Aspartate Amino Transf (AST/SGOT) 164 U/L Alanine Aminotransferase (ALT/SGPT) 99 U/L Total Bilirubin 4.6 MG/DL Sodium Level 139 MEQ/L Potassium Level 3.2 MEQ/L Chloride Level 101 MEQ/L Carbon Dioxide Level 29.5 MEQ/L Anion Gap 9 MEQ/L Estimat Glomerular Filtration Rate 182 ML/MIN Lipase 71 U/L MDM Medical Decision Making Medical Screen Exam Complete: Yes Emergency Medical Condition: Yes Medical Record Reviewed: Yes (Past history confirmed) Interpretation(s) CBC & BMP Diagram 10/08/17 10:50 Total Protein 7.4, Albumin 2.4 L, Calcium Level 8.8, Alkaline Phosphatase 1679 H , Aspartate Amino Transf (AST/SGOT) 164 H, Alanine Aminotransferase (ALT/SGPT) 99 H, Total Bilirubin 4.6 H Last 24 hours Impressions Chest X-Ray 10/08/17 0000 Signed Impressions: CONCLUSION: No acute disease Abdomen/Pelvis CT 10/08/17 0000 Signed Impressions: CONCLUSION: CT abdomen pelvis with mild increase in ascites but when reviewed by me no significant area that can be drained easily. Stones within the kidneys noted, stable cirrhotic and pneumobilia Differential Diagnosis Kidney stone, adhesions, musculoskeletal, UTI, dehydration Narrative Course We will check blood work, urinalysis, CT scan abdominal pelvis and dose with Dilaudid and Zofran and reevaluate no emesis here, tolerating oral hydration, Patient denies any new complaints, all questions answered. Patient knows that follow up is incumbent on them and to return to the emergency room immediately if new or worsening symptoms develop. Patient given strict return precautions, vitals reviewed and are normal , agrees to further workup as an outpatient. Diagnosis Primary Impression: abdominal pain, acute and chronic Additional Impression: Vomiting Qualified Codes: R11.10 - Vomiting, unspecified Patient Instructions: General Instructions Additional Instructions: return as needed, zofran as needed, follow with primary tommorrow Med/Other Pt SpecificInfo: Prescription(s) given Scripts Ondansetron Odt (Zofran Odt) 4 Mg Tab 4 MG SL Q8HR Y for Nausea/Vomiting, #10 TAB 0 Refills Prov: Cara Rogers MD 10/08/17 Disposition: 01 DISCHARGE HOME Condition: Stable Cara Rogers MD October 08, 2017 10:09
[2017-10-08] MEDS ORDERED: HYDROmorphone HCL PF 1 MG/ML VIAL IV PUSH ONE (10:15)
[2017-10-08] MEDS ORDERED: SODIUM CHLOR 0.9% 1000 ML INJ 1,000 ML IV ONE (10:15)
[2017-10-08] MEDS ORDERED: ONDANSETRON HCL 4 MG/2 ML VIAL IV PUSH ONE (10:15)
[2017-10-08] MEDS ORDERED: ONDANSETRON ODT 4 MG TAB PO ONE (10:30)
[2017-10-08 10:55] LABS: BILIRUBIN, URINE SMALL (NEG); BLOOD, URINE NEG (NEG); GLUCOSE,URINE NEG (NEG); KETONE, URINE NEG (NEG); NITRITE,URINE NEG (NEG); PH, URINE 8.5 (5.0-8.5); URINE COLOR YELLOW (YELLW/STRAW); URINE LEUKOCYTE ESTERASE TRACE (NEG)
[2017-10-08 10:58] LABS: BACTERIA, URINE RARE /hpf; MUCUS URINE FEW /lpf (OCC); SQUAMOUS EPITHELIAL CELL URINE 20 /hpf (0-5)
[2017-10-08 11:11] LABS: HEMATOCRIT 40.4 % (35.0-46.0); HEMOGLOBIN 13.4 GM/DL (11.6-15.3); MEAN CELL VOLUME 82.9 FL (80.0-100.0); MEAN CORPUSCULAR HEMOGLOBIN 27.5 PG (27.0-34.0); MEAN CORPUSCULAR HGB CONC 33.1 % (32.0-36.0); MEAN PLATELET VOLUME 10.2 FL (7.0-11.0); PLATELET COUNT 544 TH/MM3 (150-450); RED BLOOD COUNT 4.87 MIL/MM3 (4.00-5.30); RED CELL DISTRIBUTION WIDTH 17.9 % (11.6-17.2); WHITE BLOOD COUNT 9.3 TH/MM3 (4.0-11.0)
--- NOTE | 2017-10-08 11:44 | RADRPT ---
EXAM DATE: 10/08/2017 11:15 AM EDT AGE/SEX: 47 years / Female INDICATIONS: Right side pain CLINICAL DATA: This is the patient's initial encounter. Patient reports that signs and symptoms have been present for 1 day and indicates a pain score of 8/10. MEDICAL/SURGICAL HISTORY: Renal calculi. Diabetes. Lymphoma. Splenectomy. Cholecystectomy. RADIATION DOSE: 3.55 CTDI (mGy) COMPARISON: [facility] – [place], CT ABDOMEN & PELVIS W/O CONTRAST, 06/01/2017. . TECHNIQUE: Multiple contiguous axial images were obtained through the abdomen. Images were obtained using multiple row detector helical technique. Using dose reduction techniques, radiation dose was ke pt as low as reasonably achievable to obtain optimal diagnostic quality images. FINDINGS: Lower Lungs: The visualized lower lungs are clear. Liver: Advanced liver disease with cirrhotic changes are noted. The hepatic texture is heterogeneous and nodular in appearance. Gas remains evident within the biliary tree. Increasing fluid is identifie d surrounding the liver. There are no discrete hepatic masses. Gallbladder is absent. Spleen: Status post splenectomy Pancreas: Unremarkable without mass or calcification. Kidneys: Bilateral renal calculi are identified. Again noted is a 1 cm calculus in the lower pole of the right kidney. 3 mm calculus is identified in the lower pole of the right kidney. There is no bren dence of hydronephrosis. Adrenal Glands: Unremarkable. Aorta: The aorta and proximal iliac vessels are grossly unremarkable without aneurysmal dilation. Bowel/Mesentery: The bowel loops are grossly unremarkable. There is no evidence of ileus or free air . Moderate ascites is noted. Abdominal Wall: Intact. Retroperitoneum: No evidence of adenopathy in the retrocrural, para-aortic, or deep pelvic regions. Bladder: Distended but otherwise unremarkable. Reproductive Organs: No abnormal masses or calcifications seen. Inguinal: The inguinal region is unremarkable without evidence of adenopathy. Bony Structures: Unremarkable. CONCLUSION: 1. Cirrhotic liver with pneumobilia 2. Mild to moderate ascites with interval increase compared to previous study. 3. Status post splenectomy and cholecystectomy. 4. Bilateral renal calculi without evidence of hydronephrosis. 5. No acute intestinal abnormality. Electronically signed by: Adeel Esteban MD 10/08/2017 11:42 AM EDT
[2017-10-08 11:47] LABS: ALBUMIN 2.4 GM/DL (3.4-5.0); ALT (GPT) 99 U/L (10-53); AST (GOT) 164 U/L (15-37); BICARBONATE 29.5 MEQ/L (21.0-32.0); BLOOD UREA NITROGEN 8 MG/DL (7-18); CALCIUM 8.8 MG/DL (8.5-10.1); CHLORIDE 101 MEQ/L (98-107); CREATININE 0.38 MG/DL (0.50-1.00); GLOMERULAR FILTRATION RATE 182 ML/MIN (>89); GLUCOSE,RANDOM 109 MG/DL (74-106); SODIUM (NA) 139 MEQ/L (136-145)
[2017-10-08 11:51] LABS: LYMPHOCYTES 4 % (9-44); MONOCYTES 6 % (0-8); NEUTROPHIL # MANUAL DIFF 8.4 TH/MM3 (1.8-7.7); POLYS (SEG NEUTROPHILS) 90 % (16-70)
[2017-10-08 11:52] LABS: TARGET CELLS 3+ (NORMAL)
[2017-10-08 11:53] LABS: HOWELL-JOLLY BODIES PRESENT (NONE SEEN)
[2017-10-08 12:01] LABS: ALKALINE PHOSPHATASE 1679 U/L (45-117); TOTAL BILIRUBIN ADULT 4.6 MG/DL (0.2-1.0); TOTAL PROTEIN 7.4 GM/DL (6.4-8.2)
[2017-10-08 12:15] VITALS: BP 141/88; PULSE 82; RESP 15; O2SAT 99
[2017-10-08] MEDS ORDERED: POTASSIUM CHLORIDE 25 MEQ EFFERVESCENT TAB PO ONE (12:15)
[2017-10-08] MEDS ORDERED: METOCLOPRAMIDE HCL 10 MG/2 ML VIAL IV PUSH ONE (12:30)
--- NOTE | 2017-10-08 13:38 | RADRPT ---
EXAM DATE: 10/08/2017 12:52 PM EDT AGE/SEX: 47 years / Female INDICATIONS: Right upper flank pain. Vomiting. CLINICAL DATA: This is the patient's initial encounter. Patient reports that signs and symptoms have been present for 4 - 6 days and indicates a pain score of 8/10. MEDICAL/SURGICAL HISTORY: Renal disease. Renal calculi. Lymphoma. Diabetic. Chemotherapy. Ci rrhosis. Ulcers. Splenectomy. [place] [facility] [place]. . FINDINGS: PA and lateral views of the chest demonstrate the lungs to be symmetrically aerated withou t evidence of mass, infiltrate or effusion. The cardiomediastinal contours are unremarkable. Osseous structures are intact. CONCLUSION: No acute disease Electronically signed by: Mele Limon MD 10/08/2017 1:37 PM EDT
[2017-10-08] MEDS ORDERED: ZOFR4TAB3 SL (14:03)
[2017-10-08 14:13] VITALS: BP 143/89
== END 2017-10-08 14:14 | disposition home or self-care (01) ==
LOC: NEPC 09:43
DX: N20.0 Calculus of kidney (principal); K74.60 Unspecified cirrhosis of liver; E11.9 Type 2 diabetes mellitus without complications; Z79.4 Long term (current) use of insulin
CPT/HCPCS: 71046; 74176; 80053; 81001; 83690; 85007; 85027; 96361; 96374; 96375; 99285; J1170; J2765; J7030

== ENCOUNTER 2017-11-04 12:05 | Emergency (ER) | payer OTHER ==
[~2017-11-04] VITALS: Ht 162.6 cm; Wt 50.0 kg
[~2017-11-04 12:05] MED LIST changes: -CREON24 PO; -HYDR2TAB PO; -METR1TAB76 PO; -Ursodiol PO
[2017-11-04 12:15] VITALS: PULSE 93; RESP 16; TEMP 98.2; O2SAT 99
--- NOTE | 2017-11-04 12:47 | PD ---
HPI Chief Complaint: Abdominal Pain Time Seen by Provider: 12:38 Travel History International Travel<30 days: No Contact w/Intl Traveler<30days: No Traveled to known affect area: No History of Present Illness HPI 47-year-old female came to the emergency room with history lower back and abdominal pain. Patient points to her lumbar area as the origin of the pain and then says it radiates across on the right side to the anterior abdomen. She said this is been going on for past couple days. Her is here with her and says that every time she is driving and hits a pothole she winces in pain in her back. Patient has history of sclerosing cholangitis and chronic hepatitis. She recently found a pro shop attendant that she has seen 2 months ago for the first time. She has been seen in the emergency room and hospitalized in this hospital multiple times. Her last hospitalization was in mid July. The says that she is not on any medications for her cirrhosis and liver disease. They went to [facility] to see if she was a candidate for liver transplant which they denied. Patient currently says that the pain is 9 out of 10. She is allergic to multiple pain medications. Vital signs are relatively stable. [facility] Past Medical History Narrative Medical List of her past medical, surgical, social and family history is reviewed from the nursing note Hx Anticoagulant Therapy: No Arthritis: No Asthma: No Autoimmune Disease: No Blood Disorders: No Anxiety: No Depression: No Heart Rhythm Problems: No Cancer: Yes (HX NON HODGKINS LYMPHOMA) Cardiovascular Problems: No High Cholesterol: No Chemotherapy: Yes Chest Pain: No Congestive Heart Failure: No Cirrhosis: Yes COPD: No Cerebrovascular Accident: No Diabetes: Yes Diminished Hearing: No Endocrine: No Gastrointestinal Disorders: Yes (sclerosing cholangitis) GERD: No Genitourinary: No Headaches: No Hepatitis: No Hiatal Hernia: No Heparin Induced Thrombocytopen: No Hypertension: No Immune Disorder: No Implanted Vascular Access Dvce: Yes Kidney Stones: Yes Musculoskeletal: No Neurologic: No Psychiatric: No Reproductive: No Respiratory: No Immunizations Current: No Migraines: No Radiation Therapy: No Renal Failure: No Seizures: No Sickle Cell Disease: No Sleep Apnea: No Thyroid Disease: No Ulcer: Yes ?: Not Menopausal: Yes : 2 Para: 2 Miscarriage: 0 : 0 Past Surgical History Abdominal Surgery: Yes (splenectomy, liver biopsy) AICD: No Arteriovenous Shunt: No Body Medical Devices: BILIARY DRAIN Cardiac Surgery: No Cholecystectomy: Yes Ear Surgery: No Endocrine Surgery: No Eye Surgery: No Genitourinary Surgery: No Gynecologic Surgery: No Hysterectomy: No Insulin Pump: No Joint Replacement: No Neurologic Surgery: No Oral Surgery: No Pacemaker: No Thoracic Surgery: No Other Surgery: Yes (BILIARY DRAIN PLACED, LIVER BIOPSY, biliary stents, SPLEENECTOMY) Social History Alcohol Use: No Tobacco Use: No Substance Use: No Allergies-Medications (Allergen,Severity, Reaction): Coded Allergies: fentanyl (Verified Allergy, Severe, SOB, 11/04/17) gadobenic acid (Verified Allergy, Severe, BREATHING PROBLEMS, N/V,CHILLS, 11/04/17) gadodiamide (Verified Allergy, Severe, BREATHING PROBLEMS, N/V,CHILLS, ) gadoteridol (Verified Allergy, Severe, BREATHING PROBLEMS, N/V,CHILLS, ) ketorolac (Verified Allergy, Severe, Shortness of Breath, 11/04/17) morphine (Verified Allergy, Severe, SOB, 11/04/17) tramadol (Verified Allergy, Mild, Shortness of Breath, 11/04/17) Gadolinium-Containing Contrast Medi (Verified Adverse Reaction, Severe, nauseas /vomiting, 11/04/17) MRI PRECAUTION (Verified Adverse Reaction, Severe, NAUSEA; PER PATIENT IT IS A GADOLINIUM ALLERGY KMD 11/25/12, 11/04/17) Comments List of her allergies reviewed from the nursing note. Reported Meds & Prescriptions Reported Meds & Active Scripts Active Creon (Amylase/Lipase/Protease) 24,000-76,000-120,000 Units Cap 1 Cap PO TIDPC Ursodiol 300 Mg Cap 300 Mg PO BID Reported Humalog Inj (Insulin Human Lispro) 1,000 Unit/10 Ml Vial 1-9 Units SQ ACHS Max dose at bedtime:( )units; sugars< 70,(0)units; sugars 150-199,(1)unit; sugars 200-249,(3)units; sugars 250-299,(5)units; sugars 300-349,(7)units; sugars more than 349,(9)units. Lantus Inj (Insulin Glargine) 1,000 Unit/10 Ml Vial 30 Units SQ HS Narrative Medication List of her home medications reviewed from the nursing note. Review of Systems Except as stated in HPI: all other systems reviewed are Neg Gastrointestinal: Positive: Abdominal Pain Musculoskeletal: Positive: Pain Physical Exam Narrative GENERAL: Awake, alert, moderate distress SKIN: Focused skin assessment warm/dry. Jaundice HEAD: Atraumatic. Normocephalic. EYES: Pupils equal and round. Icterus. No injection or drainage. ENT: No nasal bleeding or discharge. Mucous membranes pink and moist. NECK: Trachea midline. No JVD. CARDIOVASCULAR: Regular rate and rhythm. No murmur appreciated. RESPIRATORY: No accessory muscle use. Clear to auscultation. Breath sounds equal bilaterally. GASTROINTESTINAL: Abdomen soft, abdominal distention and tenderness in the right upper quadrant and periumbilical. Hepatic and splenic margins not palpable. MUSCULOSKELETAL: No obvious deformities. No clubbing. No cyanosis. No edema. Tenderness on palpation of the lumbar area NEUROLOGICAL: Awake and alert. No obvious cranial nerve deficits. Motor grossly within normal limits. Normal speech. PSYCHIATRIC: Appropriate mood and affect; insight and judgment normal. Data Data Last Documented VS Vital Signs Date Time Temp Pulse Resp B/P (MAP) Pulse Ox O2 Delivery O2 Flow Rate FiO2 11/04/17 18:20 11/04/17 17:00 82 19 98 Room Air 11/04/17 12:15 98.2 Orders Orders Complete Blood Count With Diff (11/04/17 12:53) Comprehensive Metabolic Panel (11/04/17 12:53) Lipase (11/04/17 12:53) Urinalysis - C+S If Indicated (11/04/17 12:53) Iv Access Insert/Monitor (11/04/17 12:53) Ecg Monitoring (11/04/17 12:53) Oximetry (11/04/17 12:53) Sodium Chloride 0.9% Flush (Ns Flush) (11/04/17 13:00) Direct Bilirubin (11/04/17 12:53) Ct Abd/Pel W/O Iv Contrast (11/04/17 ) Insulin Aspart Inj (Novolog Inj) (11/04/17 14:30) Sodium Chlor 0.9% 1000 Ml Inj (Ns 1000 M (11/04/17 15:31) Ed Discharge Order (11/04/17 17:53) Hydromorphone (Dilaudid) (11/04/17 18:15) Labs Laboratory Tests Test 11/04/17 13:25 White Blood Count 9.9 TH/MM3 Red Blood Count 4.30 MIL/MM3 Hemoglobin 11.8 GM/DL Hematocrit 36.8 % Mean Corpuscular Volume 85.5 FL Mean Corpuscular Hemoglobin 27.4 PG Mean Corpuscular Hemoglobin Concent 32.0 % Red Cell Distribution Width 18.9 % Platelet Count 318 TH/MM3 Mean Platelet Volume 11.8 FL CBC Comment AUTO DIFF Differential Total Cells Counted 100 Neutrophils % (Manual) 77 % Band Neutrophils % 2 % Lymphocytes % 13 % Monocytes % 8 % Neutrophils # (Manual) 7.8 TH/MM3 Differential Comment FINAL DIFF MANUAL Platelet Estimate NORMAL Platelet Morphology Comment ENLARGED Target Cells 2+ Blood Urea Nitrogen 7 MG/DL Creatinine 0.37 MG/DL Random Glucose 455 MG/DL Total Protein 6.4 GM/DL Albumin 2.0 GM/DL Calcium Level 8.3 MG/DL Alkaline Phosphatase 2056 U/L Aspartate Amino Transf (AST/SGOT) 145 U/L Alanine Aminotransferase (ALT/SGPT) 85 U/L Total Bilirubin 3.5 MG/DL Direct Bilirubin 2.8 MG/DL Sodium Level 136 MEQ/L Potassium Level 3.5 MEQ/L Chloride Level 102 MEQ/L Carbon Dioxide Level 23.7 MEQ/L Anion Gap 10 MEQ/L Estimat Glomerular Filtration Rate 187 ML/MIN Lipase 59 U/L MDM Medical Decision Making Medical Screen Exam Complete: Yes Emergency Medical Condition: Yes Medical Record Reviewed: Yes Differential Diagnosis Acute on chronic abdominal pain, compression fracture, muscular skeletal pain Narrative Course 2:06 PM awaiting for blood test and CAT scan to be done and resulted. 4:16 PM blood test results are back in shows elevated LFTs which is due to the liver disease. Awaiting for UA and CT scan read. 4:[address] scan shows chronic cirrhotic changes. Awaiting for the UA still. Patient will get a repeat blood glucose once the fluids are done. She will be discharged home. 5:06 PM awaiting for the UA. Case will be signed over to the oncoming ER physician. I had a discussion with the patient and her and let them know about the test results and the follow-up plan. Procedures EKG Prior to Arrival: No Diagnosis Primary Impression: Acute on chronic abdominal pain Additional Impressions: Cirrhosis Qualified Codes: K74.60 - Unspecified cirrhosis of liver; R18.8 - Other ascites Acute exacerbation of chronic low back pain Additional Instructions: Please follow-up with your GI specialist. Take the medication as per the prescription direction and ask your primary care to give refills. Med/Other Pt SpecificInfo: Prescription(s) given Scripts Pancrelipase (Creon) 24,000-76,000-120,000 Units Cap 1 CAP PO TIDPC for Digestive Aid, #90 CAP 0 Refills Prov: Piper Marrero MD 11/04/17 Ursodiol (Ursodiol) 300 Mg Cap 300 MG PO BID for Gallstones, #60 CAP 0 Refills Prov: Piper Marrero MD 11/04/17 Disposition: 01 DISCHARGE HOME Condition: Stable Piper Marrero MD Nov 04, 2017 12:47
[2017-11-04] MEDS ORDERED: SODIUM CHLORIDE 0.9% FLUSH 10 ML FLUSH IV FLUSH PRN (13:00)
[2017-11-04 13:32] VITALS: O2SAT 97
[2017-11-04] MEDS ORDERED: LANTUS2P SQ (13:32)
[2017-11-04] MEDS ORDERED: NOVORP2 SQ (13:32)
[2017-11-04 13:47] LABS: HEMATOCRIT 36.8 % (35.0-46.0); HEMOGLOBIN 11.8 GM/DL (11.6-15.3); MEAN CELL VOLUME 85.5 FL (80.0-100.0); MEAN CORPUSCULAR HEMOGLOBIN 27.4 PG (27.0-34.0); MEAN PLATELET VOLUME 11.8 FL (7.0-11.0); PLATELET COUNT 318 TH/MM3 (150-450); RED CELL DISTRIBUTION WIDTH 18.9 % (11.6-17.2); WHITE BLOOD COUNT 9.9 TH/MM3 (4.0-11.0)
[2017-11-04 14:06] VITALS: BP 114/77
[2017-11-04 14:22] LABS: ALKALINE PHOSPHATASE 2056 U/L (45-117); ALT (GPT) 85 U/L (10-53); AST (GOT) 145 U/L (15-37); BICARBONATE 23.7 MEQ/L (21.0-32.0); BLOOD UREA NITROGEN 7 MG/DL (7-18); CALCIUM 8.3 MG/DL (8.5-10.1); CHLORIDE 102 MEQ/L (98-107); CREATININE 0.37 MG/DL (0.50-1.00); DIRECT BILIRUBIN ADULT 2.8 MG/DL (0.0-0.2); GLOMERULAR FILTRATION RATE 187 ML/MIN (>89); SODIUM (NA) 136 MEQ/L (136-145); TOTAL BILIRUBIN ADULT 3.5 MG/DL (0.2-1.0); TOTAL PROTEIN 6.4 GM/DL (6.4-8.2)
[2017-11-04 14:23] LABS: BANDS 2 % (0-6); LYMPHOCYTES 13 % (9-44); MONOCYTES 8 % (0-8); NEUTROPHIL # MANUAL DIFF 7.8 TH/MM3 (1.8-7.7); POLYS (SEG NEUTROPHILS) 77 % (16-70)
[2017-11-04 14:24] LABS: TARGET CELLS 2+ (NORMAL)
[2017-11-04 14:25] LABS: GLUCOSE,RANDOM 455 MG/DL (74-106)
[2017-11-04] MEDS ORDERED: INSULIN ASPART 1,000 UNITS/10 ML VIAL SQ ONE (14:30)
[2017-11-04] MEDS ORDERED: HUMALOG SQ (14:32)
[2017-11-04] MEDS ORDERED: SODIUM CHLOR 0.9% 1000 ML INJ 1,000 ML IV SCH (15:31)
--- NOTE | 2017-11-04 16:38 | RADRPT ---
EXAM DATE: 11/04/2017 3:22 PM EDT AGE/SEX: 47 years / Female INDICATIONS: Abdomen and back pain with nausea for 2 weeks CLINICAL DATA: This is the patient's initial encounter. Patient reports that signs and symptoms have been present for 1 day and indicates a pain score of 9/10. MEDICAL/SURGICAL HISTORY: Diabetes. Lymphoma. Sclerosing cholangitis Splenectomy. RADIATION DOSE: 5.04 CTDI (mGy) COMPARISON: [facility] [place], [place] ABDOMEN & PELVIS W/O CONTRAST, 10/08/2017. . TECHNIQUE: Multiple contiguous axial images were obtained through the abdomen. Images were obtained using multiple row detector helical technique. Using automated exposure control and adjustment of the mA and/or kV according to patient size, radiation dose was kept as low as reasonably achievable to o btain optimal diagnostic quality images. DICOM format image data is available electronically for rev iew and comparison. FINDINGS: Imaging through the lung bases demonstrates COPD changes. There is an area of atelectasis in the left lower lobe along the left hemidiaphragm. Imaging through the abdomen demonstrates cirrhotic appearing liver. There is gas within the intrahepa tic biliary system suggesting a previous sphincterotomy. There is ascites within the upper abdomen. The patient is post splenectomy. The adrenal glands are normal in appearance.. The examination demonstrates a 7 mm stone within the co llecting system of the left kidney. There is a 2 mm nonobstructing stone in the right kidney. The black creas is unremarkable in appearance. There is free fluid within the upper abdomen. No free intraperit meier air is identified. The abdominal aorta is normal in caliber. The bladder is distended. No significant free fluid is seen within the pelvis. No iliac or inguinal a denopathy is present. CONCLUSION: 1. There are cirrhotic changes within the liver. There is ascites within the upper abdomen. There is pneumobilia. These changes are stable compared to the previous exam. 2. Bilateral nonobstructing renal stones. The stone on the left measures 7 mm. The stone on the righ t measures 2 mm. 3. Atelectatic changes in the left lower lobe with minimal left basilar effusion. The atelectasis at the lung bases new compared to previous. The effusion is stable. Electronically signed by: Farzad Morales MD 11/04/2017 4:37 PM EDT
[2017-11-04] MEDS ORDERED: CREON24 PO (16:55)
[2017-11-04] MEDS ORDERED: URSO300C2 PO (16:55)
[2017-11-04 17:00] VITALS: BP 138/90; PULSE 82; RESP 19; O2SAT 98
--- NOTE | 2017-11-04 17:53 | PD ---
Data Data Last Documented VS Vital Signs Date Time Temp Pulse Resp B/P (MAP) Pulse Ox O2 Delivery O2 Flow Rate FiO2 11/04/17 17:00 82 19 138/90 (106) 98 Room Air 11/04/17 12:15 98.2 Orders Orders Complete Blood Count With Diff (11/04/17 12:53) Comprehensive Metabolic Panel (11/04/17 12:53) Lipase (11/04/17 12:53) Urinalysis - C+S If Indicated (11/04/17 12:53) Iv Access Insert/Monitor (11/04/17 12:53) Ecg Monitoring (11/04/17 12:53) Oximetry (11/04/17 12:53) Sodium Chloride 0.9% Flush (Ns Flush) (11/04/17 13:00) Direct Bilirubin (11/04/17 12:53) Ct Abd/Pel W/O Iv Contrast (11/04/17 ) Insulin Aspart Inj (Novolog Inj) (11/04/17 14:30) Sodium Chlor 0.9% 1000 Ml Inj (Ns 1000 M (11/04/17 15:31) Labs Laboratory Tests Test 11/04/17 13:25 White Blood Count 9.9 TH/MM3 Red Blood Count 4.30 MIL/MM3 Hemoglobin 11.8 GM/DL Hematocrit 36.8 % Mean Corpuscular Volume 85.5 FL Mean Corpuscular Hemoglobin 27.4 PG Mean Corpuscular Hemoglobin Concent 32.0 % Red Cell Distribution Width 18.9 % Platelet Count 318 TH/MM3 Mean Platelet Volume 11.8 FL CBC Comment AUTO DIFF Differential Total Cells Counted 100 Neutrophils % (Manual) 77 % Band Neutrophils % 2 % Lymphocytes % 13 % Monocytes % 8 % Neutrophils # (Manual) 7.8 TH/MM3 Differential Comment FINAL DIFF MANUAL Platelet Estimate NORMAL Platelet Morphology Comment ENLARGED Target Cells 2+ Blood Urea Nitrogen 7 MG/DL Creatinine 0.37 MG/DL Random Glucose 455 MG/DL Total Protein 6.4 GM/DL Albumin 2.0 GM/DL Calcium Level 8.3 MG/DL Alkaline Phosphatase 2056 U/L Aspartate Amino Transf (AST/SGOT) 145 U/L Alanine Aminotransferase (ALT/SGPT) 85 U/L Total Bilirubin 3.5 MG/DL Direct Bilirubin 2.8 MG/DL Sodium Level 136 MEQ/L Potassium Level 3.5 MEQ/L Chloride Level 102 MEQ/L Carbon Dioxide Level 23.7 MEQ/L Anion Gap 10 MEQ/L Estimat Glomerular Filtration Rate 187 ML/MIN Lipase 59 U/L MDM Supervised Visit with MYRON: No Narrative Course 47-year-old woman, known to me history of liver disease and chronic pain, here with the same. Not taking any pain medicines at home. Is following up with GI , has followed up with pain management. Labs are unremarkable. CT scan shows no change. Unable to give a urine sample. Offered straight cath. Patient will prefer to follow-up with her physician was I think is reasonable. Diagnosis Primary Impression: Acute on chronic abdominal pain Additional Impressions: Acute exacerbation of chronic low back pain Cirrhosis Qualified Codes: K74.60 - Unspecified cirrhosis of liver; R18.8 - Other ascites Patient Instructions: General Instructions Additional Instruction: Please follow-up with your GI specialist. Take the medication as per the prescription direction and ask your primary care to give refills. Med/Other Pt SpecificInfo: No Change to Meds Scripts Pancrelipase (Creon) 24,000-76,000-120,000 Units Cap 1 CAP PO TIDPC for Digestive Aid, #90 CAP 0 Refills Prov: Piper Marrero MD 11/04/17 Ursodiol (Ursodiol) 300 Mg Cap 300 MG PO BID for Gallstones, #60 CAP 0 Refills Prov: Piper Marrero MD 11/04/17 Disposition: 01 DISCHARGE HOME Condition: Stable Fadi Ashford MD Nov 04, 2017 17:53
[2017-11-04] MEDS ORDERED: HYDROmorphone HCL 2 MG TAB PO ONE (18:15)
== END 2017-11-04 18:27 | disposition home or self-care (01) ==
LOC: NEPD 12:05
DX: K74.60 Unspecified cirrhosis of liver (principal); R18.8 Other ascites; M54.5 Low back pain; G89.29 Other chronic pain; E11.9 Type 2 diabetes mellitus without complications; K83.0 Cholangitis; Z87.442 Personal history of urinary calculi; Z79.4 Long term (current) use of insulin
CPT/HCPCS: 74176; 80053; 82248; 83690; 85007; 85027; 96360; 96361; 96372; 99284; J1815; J7030

== ENCOUNTER 2018-01-10 17:53 | Inpatient (IN) ==
[2018-01-10] MEDS ORDERED: Acetaminophen 325 MG Tablet PO ONE (19:08)
[2018-01-10] MEDS ORDERED: HYDROmorphone PF Inj 2 MG/ML Vial IV.PUSH ONE ×2 (19:13→22:17)
[2018-01-10] MEDS ORDERED: Piperacil/Tazo 3.375 GM Premix 50 ML IV.SIG ONE (19:13)
[2018-01-10] MEDS ORDERED: Sod Chloride 0.9% Inj 1,000 ML IV.SIG SCH ×3 (19:15→22:00)
[2018-01-10] MEDS ORDERED: Sod Chloride 0.9% Inj 800 ML IV.SIG SCH (19:15)
--- NOTE | 2018-01-10 19:37 | ED ---
HPI General Chief Complaint: Abdominal Pain Stated Complaint: fever Time Seen by Provider: 01/10/18 19:03 Source: patient Mode of arrival: ambulatory Limitations: no limitations History of Present Illness HPI narrative: 47 yo F c/o abdominal pain, n/v/d and dysuria with fever for approximately 24 hours. Pt has hx non-alcoholic liver cirrhosis. Emesis is nonbloody. Diarrhea non-bloody. Appetite decreased. Associated symptoms include increased LE edema. Patient has had similar episodes previously which were diagnosed as urinary tract infection. MD complaint: abdominal pain Onset (ago): day(s) Pain Consistency: constant Location: diffuse Related Data Allergies Allergy/AdvReac Type Severity Reaction Status Date / Time fentanyl Allergy Severe SOB Verified 01/10/18 18:09 gadobenic acid Allergy Severe BREATHING Verified 01/10/18 18:09 PROBLEMS, N/V,CHILLS gadodiamide Allergy Severe BREATHING Verified 01/10/18 18:09 PROBLEMS, N/V,CHILLS gadoteridol Allergy Severe BREATHING Verified 01/10/18 18:09 PROBLEMS, N/V,CHILLS ketorolac Allergy Severe Shortness Verified 01/10/18 18:09 of Breath morphine Allergy Severe SOB Verified 01/10/18 18:09 tramadol Allergy Mild Shortness Verified 01/10/18 18:09 of Breath Gadolinium-Containing AdvReac Severe nauseas Verified 01/10/18 18:09 Contrast Medi /vomiting MRI PRECAUTION AdvReac Severe NAUSEA; Uncoded 01/10/18 18:09 PER PATIENT IT IS A GADOLINIUM ALLERGY KMD 11/25/12 Review of Systems ROS: all other systems reviewed are negative Constitutional Reports fever(s) [facility] Medical History Medical History Diabetes (Acute) Hepatomegaly (Acute) Kidney stone (Acute) Non Hodgkin's lymphoma (Acute) Surgical History Surgical History H/O splenectomy (Acute) History of liver biopsy (Acute) Social History Social History Substance History: No History of Abuse Second Hand Smoke Exposure: No Smoking Status: Never smoker How Often Do You Have a Drink Containing Alcohol: Never Recent Travel in [facility] within the Last 8 Weeks: No Recent Out of Country Travel within the Last 8 Weeks: No Immunization History Tetanus Immunization: <5 Years Hx Influenza Vaccine This Season: No Exam Narrative Exam Narrative: GENERAL:47 yo F, thin, mild distress 2/2 pain and/or fever/ nausea SKIN: Focused skin assessment warm/dry. HEAD: Atraumatic. Normocephalic. EYES: Pupils equal and round. No scleral icterus. No injection or drainage. ENT: No nasal bleeding or discharge. Mucous membranes pink and moist. NECK: Trachea midline. No JVD. CARDIOVASCULAR: Tachycardia. Regular rhythm. RESPIRATORY: No accessory muscle use. Clear to auscultation. Breath sounds equal bilaterally. GASTROINTESTINAL: Soft. + Hepatomegaly. Non-specific diffuse TTP. MUSCULOSKELETAL: No obvious deformities. No clubbing. No cyanosis. No edema. NEUROLOGICAL: Awake and alert. No obvious cranial nerve deficits. Motor grossly within normal limits. Normal speech. PSYCHIATRIC: Appropriate mood and affect; insight and judgment normal. Procedures Central Line Placement Left IJ: Time Out Performed: Yes Patient Placed on Monitor/Pulse Ox: Yes MD Prep: mask, gown and gloves Central Line Prep: Chlorhexidine scrub and sterile drapes applied Local anesthesia used: lidocaine 1% Ultrasound Used for Placement: Yes Central Line Lumen Inserted: triple Post Procedure: sutured in place (securing adhesive), good blood return, all ports aspirated, flushed, capped and sterile dressing applied Patient Tolerated Procedure: well Complications: none Course Initial Documented Vital Signs Temperature 102.7 F H 01/10/18 18:01 Pulse Rate 130 H 01/10/18 18:01 Respiratory Rate 22 01/10/18 18:01 Blood Pressure 87/57 L 01/10/18 18:01 Pulse Oximetry 96 01/10/18 18:01 Last Documented Vital Signs Temperature 98.8 F 01/11/18 04:00 Pulse Rate 79 01/11/18 04:00 Respiratory Rate 14 01/11/18 04:00 Blood Pressure 92/59 L 01/11/18 04:00 Pulse Oximetry 98 01/11/18 04:00 Critical Care Time Critical Care Time: Yes Total Critical Care Time: 40 Attestation: Aggregate critical care time was 40 minutes. Time to perform other separately billable procedures was not included in the critical care time. My time did not include minutes spent treating any other patients simultaneously or on activities that did not directly contribute to the patient's treatment. The services I provided to this patient were to treat and/or prevent clinically significant deterioration that could result in: septic shock, MODS, permanent disability I provided critical care services requiring my management, as noted below: Chart data review, documentation time, medication orders and management, vital sign assessments/reviewing monitor data, ordering and reviewing lab tests, ordering and interpreting/reviewing x-rays and diagnostic studies, care of the patient and discussion of the patient with the admitting physicians. Medical Decision Making MDM Narrative Medical decision making narrative: The patient arrives with a pulse of 130 and a blood pressure 87/57 with a temperature of 102.7. Sepsis bundle initiated. She received 30 cc/kg normal saline bolus. The blood pressure remained about 70 and at the 50 at one point. A left IJ triple-lumen central line was placed. Norepinephrine started. Additional 1 L normal saline bolus started. The patient reports pain in the lower abdomen and dysuria. Workup reveals lactic acid 3.6 and a leukocytosis of 19 with 30% bands. Zosyn started. Call placed to Dr. Del Rio at 9:10 PM. The patient recieved Narcan 0.4 mg IV with no change in vital signs. CT thorax is added on for possible pneumothorax found on plain film that did not correlate clinically. Fortunately there was back no pneumothorax. Etiology considered to be most probably urinary tract infection. CT of the pelvis added on following discussion with Dr. Del Rio specifically with concern for hydronephrosis. On the right side there did appear to be hydronephrosis. Visualization of left kidney somewhat limited due to the fact the patient has no spleen in identifying the kidney was therefore somewhat challenging. Case discussed with Dr. Del Rio for the provider relations representative service. Medical Screen Exam Complete: Yes Emergency Medical Condition: Yes Medical Records Medical records reviewed: Yes I reviewed the patient's medical records. Lab Data Lab results reviewed: Yes I reviewed the patient's lab results. Result diagrams: 01/10/18 19:45 01/10/18 19:45 Lab Results 01/10/18 01/10/18 01/10/18 Range/Units 19:45 19:45 19:45 WBC 19.3 H (4.0-11.0) th/mm3 RBC 4.19 (4.00-5.30) mil/mm3 Hgb 12.3 (11.6-15.3) gm/dL Hct 37.7 (35.0-46.0) % MCV 90.2 (80.0-100.0) fL MCH 29.3 (27.0-34.0) pg MCHC 32.5 (32.0-36.0) % RDW 15.7 (11.6-17.2) % Plt Count 196 (150-450) th/mm3 MPV 12.0 H (7.0-11.0) fL Prelim Diff (Auto) Slide review pending WBC Differential Manual diff final Seg Neuts % (Manual) 62 (16-70) % Band Neuts % (Manual) 32 H (0-6) % Lymphocytes % (Manual) 2 L (9-44) % Monocytes % (Manual) 1 (0-8) % Basophils % (Manual) 1 (0-2) % Metamyelocytes % (Man) 2 H (0-1) % Abs Neuts (Manual) 18.5 H (1.8-7.7) th/mm3 Differential Comment . Platelet Estimate Normal (Normal) Platelet Morphology Normal (Normal) Target Cells 3+ H (None) PT 10.7 (9.8-11.6) sec INR 1.1 Ratio APTT 24.3 (24.3-30.1) sec Sodium (136-145) meq/L Potassium (3.5-5.1) meq/L Chloride (98-107) meq/L Carbon Dioxide (21.0-32.0) meq/L Anion Gap (5-15) meq/L BUN (7-18) mg/dL Creatinine (0.50-1.00) mg/dL Estimated GFR (>89) mL/min POC Glucose (68-110) mg/dl Random Glucose (74-106) mg/dL Lactic Acid (0.4-2.0) mmol/L Calcium (8.5-10.1) mg/dL Total Bilirubin (0.2-1.0) mg/dL AST (15-37) U/L ALT (10-53) U/L Alkaline Phosphatase (45-117) U/L Total Protein (6.4-8.2) g/dL Albumin (3.4-5.0) g/dL Lipase 68 L (73-393) U/L Urine Color (Yellw/Straw) Urine Clarity (Clear) Urine pH (5.0-8.5) Ur Specific [place] (1.002-1.035) Urine Protein (Neg-Trace) mg/dL Urine Glucose (UA) (Negative) mg/dL Urine Ketones (Negative) mg/dL Urine Occult Blood (Negative) Urine Nitrate (Negative) Urine Bilirubin (Negative) Urine Ictotest (Negative) Urine Urobilinogen (Less than 2) mg/dL Ur Leukocyte Esterase (Negative) Urine RBC (0-3) /hpf Urine WBC (0-5) /hpf Amorphous Sediment (None) /hpf Urine Bacteria (None) /hpf Urine Yeast (None) /hpf Micro UA Comment Ur Microscopic Review Urine Culture Comments Nasal Screen MRSA (PCR) (Negative) 01/10/18 01/10/18 01/10/18 Range/Units 19:45 19:45 22:38 WBC (4.0-11.0) th/mm3 RBC (4.00-5.30) mil/mm3 Hgb (11.6-15.3) gm/dL Hct (35.0-46.0) % MCV (80.0-100.0) fL MCH (27.0-34.0) pg MCHC (32.0-36.0) % RDW (11.6-17.2) % Plt Count (150-450) th/mm3 MPV (7.0-11.0) fL Prelim Diff (Auto) WBC Differential Seg Neuts % (Manual) (16-70) % Band Neuts % (Manual) (0-6) % Lymphocytes % (Manual) (9-44) % Monocytes % (Manual) (0-8) % Basophils % (Manual) (0-2) % Metamyelocytes % (Man) (0-1) % Abs Neuts (Manual) (1.8-7.7) th/mm3 Differential Comment Platelet Estimate (Normal) Platelet Morphology (Normal) Target Cells (None) PT (9.8-11.6) sec INR Ratio APTT (24.3-30.1) sec Sodium 132 L (136-145) meq/L Potassium 3.0 L (3.5-5.1) meq/L Chloride 97 L (98-107) meq/L Carbon Dioxide 20.5 L (21.0-32.0) meq/L Anion Gap 15 (5-15) meq/L BUN 17 (7-18) mg/dL Creatinine 1.05 H (0.50-1.00) mg/dL Estimated GFR 56 L (>89) mL/min POC Glucose (68-110) mg/dl Random Glucose 455 H* (74-106) mg/dL Lactic Acid 3.6 H 3.4 H (0.4-2.0) mmol/L Calcium 8.2 L (8.5-10.1) mg/dL Total Bilirubin 5.7 H (0.2-1.0) mg/dL AST 252 H (15-37) U/L ALT 152 H (10-53) U/L Alkaline Phosphatase 1472 H (45-117) U/L Total Protein 6.0 L (6.4-8.2) g/dL Albumin 1.8 L (3.4-5.0) g/dL Lipase (73-393) U/L Urine Color (Yellw/Straw) Urine Clarity (Clear) Urine pH (5.0-8.5) Ur Specific [place] (1.002-1.035) Urine Protein (Neg-Trace) mg/dL Urine Glucose (UA) (Negative) mg/dL Urine Ketones (Negative) mg/dL Urine Occult Blood (Negative) Urine Nitrate (Negative) Urine Bilirubin (Negative) Urine Ictotest (Negative) Urine Urobilinogen (Less than 2) mg/dL Ur Leukocyte Esterase (Negative) Urine RBC (0-3) /hpf Urine WBC (0-5) /hpf Amorphous Sediment (None) /hpf Urine Bacteria (None) /hpf Urine Yeast (None) /hpf Micro UA Comment Ur Microscopic Review Urine Culture Comments Nasal Screen MRSA (PCR) (Negative) 01/10/18 01/11/18 01/11/18 Range/Units 23:57 00:15 00:26 WBC (4.0-11.0) th/mm3 RBC (4.00-5.30) mil/mm3 Hgb (11.6-15.3) gm/dL Hct (35.0-46.0) % MCV (80.0-100.0) fL MCH (27.0-34.0) pg MCHC (32.0-36.0) % RDW (11.6-17.2) % Plt Count (150-450) th/mm3 MPV (7.0-11.0) fL Prelim Diff (Auto) WBC Differential Seg Neuts % (Manual) (16-70) % Band Neuts % (Manual) (0-6) % Lymphocytes % (Manual) (9-44) % Monocytes % (Manual) (0-8) % Basophils % (Manual) (0-2) % Metamyelocytes % (Man) (0-1) % Abs Neuts (Manual) (1.8-7.7) th/mm3 Differential Comment Platelet Estimate (Normal) Platelet Morphology (Normal) Target Cells (None) PT (9.8-11.6) sec INR Ratio APTT (24.3-30.1) sec Sodium (136-145) meq/L Potassium (3.5-5.1) meq/L Chloride (98-107) meq/L Carbon Dioxide (21.0-32.0) meq/L Anion Gap (5-15) meq/L BUN (7-18) mg/dL Creatinine (0.50-1.00) mg/dL Estimated GFR (>89) mL/min POC Glucose 314 H (68-110) mg/dl Random Glucose (74-106) mg/dL Lactic Acid (0.4-2.0) mmol/L Calcium (8.5-10.1) mg/dL Total Bilirubin (0.2-1.0) mg/dL AST (15-37) U/L ALT (10-53) U/L Alkaline Phosphatase (45-117) U/L Total Protein (6.4-8.2) g/dL Albumin (3.4-5.0) g/dL Lipase (73-393) U/L Urine Color Sheri (Yellw/Straw) Urine Clarity Cloudy H (Clear) Urine pH 5.0 (5.0-8.5) Ur Specific [place] 1.011 (1.002-1.035) Urine Protein 100 H (Neg-Trace) mg/dL Urine Glucose (UA) 500 or greater (Negative) mg/dL Urine Ketones Negative (Negative) mg/dL Urine Occult Blood Small H (Negative) Urine Nitrate Negative (Negative) Urine Bilirubin Small H (Negative) Urine Ictotest Positive H (Negative) Urine Urobilinogen Less than 2 (Less than 2) mg/dL Ur Leukocyte Esterase Small H (Negative) Urine RBC 1 (0-3) /hpf Urine WBC 16 H (0-5) /hpf Amorphous Sediment Rare H (None) /hpf Urine Bacteria Moderate H (None) /hpf Urine Yeast Occasional H (None) /hpf Micro UA Comment Cath-culture ind Ur Microscopic Review Not Reportable Urine Culture Comments Cath-cult indicated Nasal Screen MRSA (PCR) Mrsa detected (Negative) 01/11/18 01/11/18 01/11/18 Range/Units 01:17 02:00 02:58 WBC (4.0-11.0) th/mm3 RBC (4.00-5.30) mil/mm3 Hgb (11.6-15.3) gm/dL Hct (35.0-46.0) % MCV (80.0-100.0) fL MCH (27.0-34.0) pg MCHC (32.0-36.0) % RDW (11.6-17.2) % Plt Count (150-450) th/mm3 MPV (7.0-11.0) fL Prelim Diff (Auto) WBC Differential Seg Neuts % (Manual) (16-70) % Band Neuts % (Manual) (0-6) % Lymphocytes % (Manual) (9-44) % Monocytes % (Manual) (0-8) % Basophils % (Manual) (0-2) % Metamyelocytes % (Man) (0-1) % Abs Neuts (Manual) (1.8-7.7) th/mm3 Differential Comment Platelet Estimate (Normal) Platelet Morphology (Normal) Target Cells (None) PT (9.8-11.6) sec INR Ratio APTT (24.3-30.1) sec Sodium (136-145) meq/L Potassium (3.5-5.1) meq/L Chloride (98-107) meq/L Carbon Dioxide (21.0-32.0) meq/L Anion Gap (5-15) meq/L BUN (7-18) mg/dL Creatinine (0.50-1.00) mg/dL Estimated GFR (>89) mL/min POC Glucose 288 H 240 H (68-110) mg/dl Random Glucose (74-106) mg/dL Lactic Acid 1.3 (0.4-2.0) mmol/L Calcium (8.5-10.1) mg/dL Total Bilirubin (0.2-1.0) mg/dL AST (15-37) U/L ALT (10-53) U/L Alkaline Phosphatase (45-117) U/L Total Protein (6.4-8.2) g/dL Albumin (3.4-5.0) g/dL Lipase (73-393) U/L Urine Color (Yellw/Straw) Urine Clarity (Clear) Urine pH (5.0-8.5) Ur Specific [place] (1.002-1.035) Urine Protein (Neg-Trace) mg/dL Urine Glucose (UA) (Negative) mg/dL Urine Ketones (Negative) mg/dL Urine Occult Blood (Negative) Urine Nitrate (Negative) Urine Bilirubin (Negative) Urine Ictotest (Negative) Urine Urobilinogen (Less than 2) mg/dL Ur Leukocyte Esterase (Negative) Urine RBC (0-3) /hpf Urine WBC (0-5) /hpf Amorphous Sediment (None) /hpf Urine Bacteria (None) /hpf Urine Yeast (None) /hpf Micro UA Comment Ur Microscopic Review Urine Culture Comments Nasal Screen MRSA (PCR) (Negative) 01/11/18 01/11/18 Range/Units 03:59 05:13 WBC (4.0-11.0) th/mm3 RBC (4.00-5.30) mil/mm3 Hgb (11.6-15.3) gm/dL Hct (35.0-46.0) % MCV (80.0-100.0) fL MCH (27.0-34.0) pg MCHC (32.0-36.0) % RDW (11.6-17.2) % Plt Count (150-450) th/mm3 MPV (7.0-11.0) fL Prelim Diff (Auto) WBC Differential Seg Neuts % (Manual) (16-70) % Band Neuts % (Manual) (0-6) % Lymphocytes % (Manual) (9-44) % Monocytes % (Manual) (0-8) % Basophils % (Manual) (0-2) % Metamyelocytes % (Man) (0-1) % Abs Neuts (Manual) (1.8-7.7) th/mm3 Differential Comment Platelet Estimate (Normal) Platelet Morphology (Normal) Target Cells (None) PT (9.8-11.6) sec INR Ratio APTT (24.3-30.1) sec Sodium (136-145) meq/L Potassium (3.5-5.1) meq/L Chloride (98-107) meq/L Carbon Dioxide (21.0-32.0) meq/L Anion Gap (5-15) meq/L BUN (7-18) mg/dL Creatinine (0.50-1.00) mg/dL Estimated GFR (>89) mL/min POC Glucose 182 H 115 H (68-110) mg/dl Random Glucose (74-106) mg/dL Lactic Acid (0.4-2.0) mmol/L Calcium (8.5-10.1) mg/dL Total Bilirubin (0.2-1.0) mg/dL AST (15-37) U/L ALT (10-53) U/L Alkaline Phosphatase (45-117) U/L Total Protein (6.4-8.2) g/dL Albumin (3.4-5.0) g/dL Lipase (73-393) U/L Urine Color (Yellw/Straw) Urine Clarity (Clear) Urine pH (5.0-8.5) Ur Specific [place] (1.002-1.035) Urine Protein (Neg-Trace) mg/dL Urine Glucose (UA) (Negative) mg/dL Urine Ketones (Negative) mg/dL Urine Occult Blood (Negative) Urine Nitrate (Negative) Urine Bilirubin (Negative) Urine Ictotest (Negative) Urine Urobilinogen (Less than 2) mg/dL Ur Leukocyte Esterase (Negative) Urine RBC (0-3) /hpf Urine WBC (0-5) /hpf Amorphous Sediment (None) /hpf Urine Bacteria (None) /hpf Urine Yeast (None) /hpf Micro UA Comment Ur Microscopic Review Urine Culture Comments Nasal Screen MRSA (PCR) (Negative) Band neutrophils 32% Lactic acid 3.6 AST 252 ALT 152 Alk phos 1472 Anion gap 15 Imaging Data Attestation: I personally reviewed and interpreted this imaging study as follows : Radiologist's impression: Chest X-Ray 01/10/18 19:09 CONCLUSION: The lungs are clear. Chest X-Ray 01/10/18 21:09 CONCLUSION: Interval placement of left IJ catheter with 1.5 cm lateral pneumothorax on the left side. Chest CT 01/10/18 22:04 CONCLUSION: 1. No evidence of pneumothorax on the left side. Abdomen/Pelvis CT 01/10/18 23:21 CONCLUSION: 1. There are stable findings of hepatic cirrhosis, pneumobilia and probable portal hypertension with prominence of the portal venous system. 2. Mild, diffuse abdominal ascites and mesenteric edema probably due to passive congestion. Small amount of free fluid in the deep pelvis. 3. Stable bilateral lower pole, nonobstructing renal stones. Largest on the left measures 9.5 mm in diameter. 4. No significant change from prior. Discharge Plan Discharge Disposition Patient Disposition: 30 Still Patient Physicians Team ED Provider: Farzad Silva Primary Care Provider: Gilmar Matos Attending Provider: Leonor Del Rio Other Providers: Markus Newberry Status ED Status: Left Department Discharge Information Discharge Date/Time: 01/11/18 00:41
--- NOTE | 2018-01-10 19:42 | XR ---
EXAM DATE: 01/10/2018 7:29 PM EDT AGE/SEX: 47 years / Female INDICATIONS: Flank pain and fever. CLINICAL DATA: This is the patient's initial encounter. Patient reports that signs and symptoms have been present for 2 days and indicates a pain score of 4/10. MEDICAL/SURGICAL HISTORY: Diabetes. Lymphoma. Sclerosing cholangitis. Thyroidectomy. COMPARISON: [facility], CHEST PA & LAT, 10/08/2017. . FINDINGS: A single AP view of the chest demonstrates the lungs to be symmetrically aerated without evidence of mass, infiltrate or effusion. The cardiomediastinal contours are unremarkable. Osseous structures a re intact. CONCLUSION: The lungs are clear. Electronically signed by: Michael Santamaria MD 01/10/2018 7:41 PM EDT
[2018-01-10] MEDS ORDERED: Naloxone Inj 0.4 MG/ML Vial IV.PUSH ONE (20:06)
[2018-01-10 20:19] LABS: Activated Partial Thrombo Time 24.3 sec (24.3-30.1); Hematocrit 37.7 % (35.0-46.0); Hemoglobin 12.3 gm/dL (11.6-15.3); INR 1.1 Ratio; Mean Corpuscular HGB Conc 32.5 % (32.0-36.0); Mean Corpuscular Hemoglobin 29.3 pg (27.0-34.0); Mean Corpuscular Volume 90.2 fL (80.0-100.0); Platelet Count 196 th/mm3 (150-450); Prothrombin Time 10.7 sec (9.8-11.6); Red Blood Count 4.19 mil/mm3 (4.00-5.30); Red Cell Distribution Width 15.7 % (11.6-17.2); White Blood Count 19.3 th/mm3 (4.0-11.0)
[2018-01-10 20:37] LABS: Alanine Aminotransferase 152 U/L (10-53); Albumin 1.8 g/dL (3.4-5.0); Anion Gap 15 meq/L (5-15); Aspartate Aminotransferase 252 U/L (15-37); Blood Urea Nitrogen 17 mg/dL (7-18); Calcium 8.2 mg/dL (8.5-10.1); Carbon Dioxide 20.5 meq/L (21.0-32.0); Chloride 97 meq/L (98-107); Glomerular Filtration Rate 56 mL/min (>89); Sodium 132 meq/L (136-145)
[2018-01-10 20:42] LABS: Alkaline Phosphatase 1472 U/L (45-117); Glucose,Random 455 mg/dL (74-106); Lymphocytes 2 % (9-44); Metamyelocytes 2 % (0-1); Monocytes 1 % (0-8)
[2018-01-10 20:43] LABS: Platelet Estimate Normal (Normal); Platelet Morphology Normal (Normal); Target Cells 3+
--- NOTE | 2018-01-10 21:49 | XR ---
EXAM DATE: 01/10/2018 9:44 PM EDT AGE/SEX: 47 years / Female INDICATIONS: Left sided central line placement. CLINICAL DATA: This is the patient's initial encounter. Patient reports that signs and symptoms have been present for 1 day and indicates a pain score of 0/10. MEDICAL/SURGICAL HISTORY: None. None. COMPARISON: [facility], CHEST 1V SINGLE AP, 01/10/2018. . FINDINGS: Interval placement of left internal jugular catheter with the tip projected at the cavoatrial junctio n. There is evidence of a left-sided pneumothorax laterally extending from upper to mid lung measurin g up to 1.5 cm in thickness. No infiltrates seen. The heart is normal in size. Both hemidiaphragms we ll delineated. CONCLUSION: Interval placement of left IJ catheter with 1.5 cm lateral pneumothorax on the left side. Electronically signed by: Michael Santamaria MD 01/10/2018 9:48 PM EDT
--- NOTE | 2018-01-10 22:42 | CT ---
EXAM DATE: 01/10/2018 10:34 PM EDT AGE/SEX: 47 years / Female INDICATIONS: Evaluate for pneumothorax. CLINICAL DATA: This is the patient's initial encounter. Patient reports that signs and symptoms have been present for 1 day and indicates a pain score of 7/10. MEDICAL/SURGICAL HISTORY: Diabetes. Lymphoma. Splenectomy. RADIATION DOSE: 4.91 CTDI (mGy) COMPARISON: [facility], CHEST 1V SINGLE AP, 01/10/2018. . TECHNIQUE: Multiple contiguous axial images were obtained through the chest without contrast. Image s were obtained in suspended respiration using multiple row detector helical technique. Using automa scott exposure control and adjustment of the mA and/or kV according to patient size, radiation dose was kept as low as reasonably achievable to obtain optimal diagnostic quality images. DICOM format imag e data is available electronically for review and comparison. FINDINGS: Lungs: There is no evidence of pneumothorax on the left side. There is bibasilar atelectasis in the dependent lower lungs. The remainder of the lungs are clear. Mediastinum: There is good visualization of the great vessels of the middle mediastinum. No evidenc e of mediastinal or hilar adenopathy/mass. Central line tip in the distal superior vena cava. Pleurae: No evidence of focal thickening or pleural effusion. Axillae: Unremarkable. Bony Structures: Unremarkable. Miscellaneous: Irregular margins to the liver. Mild upper abdominal ascites. Pneumobilia. CONCLUSION: 1. No evidence of pneumothorax on the left side. Electronically signed by: Michael Santamaria MD 01/10/2018 10:41 PM EDT
[2018-01-11 00:14] LABS: Amorphous Sediment,Urine Rare /hpf; Bacteria,Urine Moderate /hpf; Bilirubin,Urine Small (Negative); Clarity,Urine Cloudy (Clear); Color,Urine Amber (Yellw/Straw); Glucose,Urine (UA) 500 or Greater mg/dL (Negative); Ictotest,Urine Positive (Negative); Leukocyte Esterase,Urine Small (Negative); Nitrite,Urine Negative (Negative); Specific Gravity,Urine 1.011 (1.002-1.035)
--- NOTE | 2018-01-11 00:23 | CT ---
EXAM DATE: 01/11/2018 12:11 AM EDT AGE/SEX: 47 years / Female INDICATIONS: Left flank pain; sepsis. CLINICAL DATA: This is the patient's initial encounter. Patient reports that signs and symptoms have been present for 1 day and indicates a pain score of 7/10. MEDICAL/SURGICAL HISTORY: Diabetes. Renal calculi. Non Hodgkin lymphoma Splenectomy. RADIATION DOSE: 6.64 CTDI (mGy) [place] [facility] [place] 11/04/2017. . TECHNIQUE: Multiple contiguous axial images were obtained through the abdomen. Images were obtained using multiple row detector helical technique. Using automated exposure control and adjustment of the mA and/or kV according to patient size, radiation dose was kept as low as reasonably achievable to o btain optimal diagnostic quality images. DICOM format image data is available electronically for rev iew and comparison. FINDINGS: Lower Lungs: Small bilateral pleural effusions with associated atelectatic changes. Liver: The liver shows capsular nodularity with some enlargement of the left hepatic lobe, CHARACTERI STICS of some degree of cirrhosis. Stable pneumobilia. Portal vein is prominent suggesting some degre e of portal hypertension. Spleen: Nonvisualized characteristic of prior splenectomy Pancreas: Unremarkable without mass or calcification. Kidneys: Nonobstructing calculi in the lower pole collecting systems of both kidneys. The largest on the left measures approximately 9.5 mm in diameter Adrenal Glands: Unremarkable. Aorta: The aorta and proximal iliac vessels are grossly unremarkable without aneurysmal dilation. Bowel/Mesentery: Mild, diffuse abdominal ascites. Diffuse stranding in the mesentery probably repres enting some passive edema. Small amount of free fluid in the deep pelvis. Abdominal Wall: Intact. Retroperitoneum: No evidence of adenopathy in the retrocrural, para-aortic, or deep pelvic regions. Bladder: Decompressed with a Fuentes catheter. Reproductive Organs: No abnormal masses or calcifications seen. Inguinal: The inguinal region is unremarkable without evidence of adenopathy. Bony Structures: Unremarkable. CONCLUSION: 1. There are stable findings of hepatic cirrhosis, pneumobilia and probable portal hypertension with prominence of the portal venous system. 2. Mild, diffuse abdominal ascites and mesenteric edema probably due to passive congestion. Small am ount of free fluid in the deep pelvis. 3. Stable bilateral lower pole, nonobstructing renal stones. Largest on the left measures 9.5 mm in diameter. 4. No significant change from prior. Electronically signed by: Noel Isaac MD 01/11/2018 12:21 AM EDT
--- NOTE | 2018-01-11 00:27 | P.HPCC ---
History of Present Illness Service: Critical care medicine Primary Care Physician: Gilmar Matos Chief Complaint: Abdominal pain, hypotension History of Present Illness: 47-year-old female with past medical history of non-Hodgkin's lymphoma who underwent chemotherapy in 2004. 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 She states yesterday she developed diarrhea and had 5-6 loose bowel movements, non-melena, nonbloody. She also experienced dysuria and nausea without vomiting. She noted she was jaundiced and had abdominal pain.. Today she has been in bed most of the day, had a fever of 103, and now developed "severe" bilateral flank pain. She presented to the ED hypotensive with leukocytosis and bandemia. Left IJ central venous line was placed by ED physician and there was concern regarding left pneumothorax on chest x-ray but follow-up CT showed no pneumothorax. CT abd/pelvis with mild ascites. No e/o urinary obstruction. Inpatient Certification: I certify that the inpatient services were ordered in accordance with Medicare regulations governing the order. This includes certification that hospital inpatient services are reasonable and necessary and in the case of services not specified as inpatient-only under 42 CFR 419.22(n), that they are appropriately provided as inpatient services in accordance to with the 2-midnight benchmark under 43 CFR 412.3(e) Review of Systems Constitutional: Reports anorexia, Reports chills Gastrointestinal: Reports abdominal pain, Reports nausea, Reports vomiting Musculoskeletal: Reports back pain PMFSH - History History Provided By: Patient - Medical History Medical History: Medical History (Last Updated 01/10/18 @ 19:08 by Angelo Allen RN) Diabetes Hepatomegaly Kidney stone Non Hodgkin's lymphoma - Surgical History Surgical History: Surgical History (Last Updated 01/10/18 @ 19:08 by Angelo Allen RN) H/O splenectomy History of liver biopsy - Family History Family History: Family History (Last Updated 01/11/18 @ 09:32 by Leonor Del Rio MD) Father CAD (coronary artery disease) - Tobacco History Second Hand Smoke Exposure: No Tobacco Use In Past 30 Days: No Smoking Status: Never smoker - Alcohol History How Often Do You Have a Drink Containing Alcohol: Never - Substance Use History Substance History: No History of Abuse - Travel History Recent Travel in the [place] Within the Last 8 Weeks: No Recent Travel Out of the Country Within the Last 8 Weeks: No - Immunization History Tetanus Immunization: <5 Years Hx Influenza Vaccine This Season: No Medications and Allergies Active Medications: Active Medications Sodium Chloride (Ns Inj) 1,000 mls @ 0 mls/hr IV.SIG .Q0M DESTINI Last Infusion: 01/10/18 20:19 Dose: Infused Sodium Chloride (Ns Inj) 800 mls @ 0 mls/hr IV.SIG .Q0M DESTINI Last Infusion: 01/10/18 20:19 Dose: Infused Norepinephrine Bitartrate (Levophed-Dextrose 4 Mg/250 Ml Drip) 4 mg in 250 mls @ 7.5 mls/hr IV.SIG TITRATE PRN; Protocol PRN Reason: Per Protocol Last Titration: 01/10/18 23:44 Dose: 8 mcg/min, 30 mls/hr Sodium Chloride (Ns Inj) 1,000 mls @ 0 mls/hr IV.SIG BOLUS DESTINI Sodium Chloride (Ns Inj) 1,000 mls @ 0 mls/hr IV.SIG BOLUS DESTINI Last Infusion: 01/10/18 23:51 Dose: Infused Terbutaline Sulfate (Brethine Inj) 1 mg SQ UNSCH PRN PRN Reason: For Extravasation Allergies Allergy/AdvReac Type Severity Reaction Status Date / Time fentanyl Allergy Severe SOB Verified 01/10/18 18:09 gadobenic acid Allergy Severe BREATHING Verified 01/10/18 18:09 PROBLEMS, N/V,CHILLS gadodiamide Allergy Severe BREATHING Verified 01/10/18 18:09 PROBLEMS, N/V,CHILLS gadoteridol Allergy Severe BREATHING Verified 01/10/18 18:09 PROBLEMS, N/V,CHILLS ketorolac Allergy Severe Shortness Verified 01/10/18 18:09 of Breath morphine Allergy Severe SOB Verified 01/10/18 18:09 tramadol Allergy Mild Shortness Verified 01/10/18 18:09 of Breath Gadolinium-Containing AdvReac Severe nauseas Verified 01/10/18 18:09 Contrast Medi /vomiting MRI PRECAUTION AdvReac Severe NAUSEA; Uncoded 01/10/18 18:09 PER PATIENT IT IS A GADOLINIUM ALLERGY KMD 11/25/12 Results - Labs CBC & Chem 7: 01/10/18 19:45 01/10/18 19:45 Labs: Short CBC 08/24/18 Range/Units 19:45 WBC 19.3 H (4.0-11.0) th/mm3 Hgb 12.3 (11.6-15.3) gm/dL Hct 37.7 (35.0-46.0) % Plt Count 196 (150-450) th/mm3 BMP 01/10/18 19:45 Sodium 132 L Potassium 3.0 L Chloride 97 L Carbon Dioxide 20.5 L BUN 17 Creatinine 1.05 H Calcium 8.2 L Liver Function 01/10/18 Range/Units 19:45 Total Bilirubin 5.7 H (0.2-1.0) mg/dL AST 252 H (15-37) U/L ALT 152 H (10-53) U/L Alkaline Phosphatase 1472 H (45-117) U/L Albumin 1.8 L (3.4-5.0) g/dL Urine 01/10/18 Range/Units 23:57 Urine Color Sheri (Yellw/Straw) Urine Clarity Cloudy H (Clear) Urine pH 5.0 (5.0-8.5) Ur Specific Rowley 1.011 (1.002-1.035) Urine Protein 100 H (Neg-Trace) mg/dL Urine Glucose (UA) 500 or greater (Negative) mg/dL - Imaging Impressions Chest X-Ray 01/10/18 19:09 CONCLUSION: The lungs are clear. Chest X-Ray 01/10/18 21:09 CONCLUSION: Interval placement of left IJ catheter with 1.5 cm lateral pneumothorax on the left side. Chest CT 01/10/18 22:04 CONCLUSION: 1. No evidence of pneumothorax on the left side. Abdomen/Pelvis CT 01/10/18 23:21 CONCLUSION: 1. There are stable findings of hepatic cirrhosis, pneumobilia and probable portal hypertension with prominence of the portal venous system. 2. Mild, diffuse abdominal ascites and mesenteric edema probably due to passive congestion. Small amount of free fluid in the deep pelvis. 3. Stable bilateral lower pole, nonobstructing renal stones. Largest on the left measures 9.5 mm in diameter. 4. No significant change from prior. Exam Vital signs: Vital Signs 01/10/18 18:01 01/10/18 20:30 01/10/18 20:45 Temperature 102.7 F H Pulse Rate 130 H 96 H 92 H Respiratory Rate 22 20 20 Blood Pressure 87/57 L 65/45 L 61/41 L Pulse Oximetry 96 97 96 01/10/18 21:00 01/10/18 21:15 01/10/18 21:16 Temperature 98.3 F Pulse Rate 92 H 90 92 H Respiratory Rate 20 20 18 Blood Pressure 70/44 L 73/48 L 73/48 L Pulse Oximetry 96 95 94 L 01/10/18 21:30 01/10/18 21:45 01/10/18 22:00 Temperature Pulse Rate 88 86 84 Respiratory Rate 20 20 20 Blood Pressure 68/48 L 74/52 L 82/53 L Pulse Oximetry 95 100 100 01/10/18 22:15 01/10/18 22:30 01/10/18 22:45 Temperature Pulse Rate 88 89 90 Respiratory Rate 20 20 20 Blood Pressure 84/56 L 85/52 L 84/57 L Pulse Oximetry 100 99 98 01/10/18 23:00 01/10/18 23:15 01/10/18 23:30 Temperature Pulse Rate 90 96 H 88 Respiratory Rate 20 20 20 Blood Pressure 89/55 L 75/43 L 85/58 L Pulse Oximetry 98 99 98 Intake & Output 01/10/18 01/10/18 01/11/18 06:59 18:59 06:59 Intake Total 2850 / 2850 Balance 2850 / 2850 Weight 47.627 kg Intake: IV 2850 / 2850 Zosyn 3.375 GM Premix 50 ML @ 50 / 50 100 mls/hr IV.SIG ONCE ONE Rx#: [id number] NS Inj 1,000 ML @ Wide Open IV. 2800 / 2800 SIG BOLUS DESTINI Rx#:[id number] Narrative: GENERAL: Clinically ill-appearing jaundiced female. SKIN: Warm and dry. HEAD: Atraumatic. Normocephalic. EYES: Pupils equal and round, 3 mm react. Anicteric.. No injection or drainage. ENT: No nasal bleeding or discharge. Mucous membranes dry. NECK: Trachea midline. No JVD. CARDIOVASCULAR: Regular rate and rhythm, sinus on the monitor.. No murmurs rubs or gallops. RESPIRATORY: No accessory muscle use. Clear to auscultation. Breath sounds equal bilaterally. On room air. GASTROINTESTINAL: Abdomen distended and mildly tympanitic, tender to palpation relatively diffusely though she reports worse in right upper quadrant. Tender with abdominal percussion, no rebound. Bilateral costovertebral angle tenderness. MUSCULOSKELETAL: Extremities without clubbing, cyanosis, or edema. NEUROLOGICAL: Awake and alert. No obvious cranial nerve deficits. Motor grossly within normal limits. Normal speech. Septic Shock Reassessment Septic shock perfusion: reassessment completed Caprini VTE Risk Assessment Caprini VTE Risk Assessment: Moderate/High Risk (score >= 2) Caprini Risk Assessment Model: Point Value = 1 Point Value = 2 Point Value = 3 Point Value = 5 Age 41-60 Minor surgery BMI > 25 kg/m2 Swollen legs Varicose veins or History of unexplained or recurrent spontaneous Oral contraceptives or hormone replacement Sepsis (< 1 month) Serious lung disease, including pneumonia (< 1 month) Abnormal pulmonary function Acute myocardial infarction Congestive heart failure (< 1 month) History of inflammatory bowel disease Medical patient at bed rest Age 61-74 Arthroscopic surgery Major open surgery (> 45 min) Laparoscopic surgery (> 45 min) Malignancy Confined to bed (> 72 hours) Immobilizing plaster cast Central venous access Age >= 75 History of VTE Family history of VTE Factor V Leiden Prothrombin [id number] Lupus anticoagulant Anticardiolipin antibodies Elevated serum homocysteine Heparin-induced thrombocytopenia Other congenital or acquired thrombophilia Stroke (< 1 month) Elective arthroplasty Hip, pelvis, or leg fracture Acute spinal cord injury (< 1 month) Prophylaxis Regimen: Total Risk Factor Score Risk Level Prophylaxis Regimen 0-1 Low Early ambulation 2 Moderate Order ONE of the following: *Sequential Compression Device (SCD) *Heparin 5000 units SQ BID 3-4 Higher Order ONE of the following medications: *Heparin 5000 units SQ TID *Enoxaparin/Lovenox 40 mg SQ daily (WT < 150 kg, CrCl > 30 mL/min) *Enoxaparin/Lovenox 30 mg SQ daily (WT < 150 kg, CrCl > 10-29 mL/min) *Enoxaparin/Lovenox 30 mg SQ BID (WT < 150 kg, CrCl > 30 mL/min) AND/OR *Sequential Compression Device (SCD) 5 or more Highest Order ONE of the following medications: *Heparin 5000 units SQ TID (Preferred with Epidurals) *Enoxaparin/Lovenox 40 mg SQ daily (WT < 150 kg, CrCl > 30 mL/min) *Enoxaparin/Lovenox 30 mg SQ daily (WT < 150 kg, CrCl > 10-29 mL/min) *Enoxaparin/Lovenox 30 mg SQ BID (WT < 150 kg, CrCl > 30 mL/min) AND *Sequential Compression Device (SCD) Assessment and Plan - Assessment and Plan Plan: NEURO: Dilaudid as needed for pain RESP: On room air CV: Septic shock Received 3 L normal saline in the emergency department. NS 100 mL/h. Levophed titrate to maintain mean arterial pressure greater than 65, at 9 mcg/min. Serial lactic acid. GI: Cirrhosis Sclerosing Cholangitis Portal hypertension Mild ascites. Hx sclerosing cholangitis (pt states secondary to mass from NHL). Has chronic hepatitis/cholangitis. LFTs chronically elevated, bili 5.7. Difficult to exclude concomitant bacterial cholangitis at this point but suspect LFt elevation due to chronic condition and superimposed sepsis from other source ( UTI/SBP). Defer to GI regarding need for further w/u. Patient has previously been evaluated by [facility]. Appears she has not been taking GI meds, only insulin. FEN/RENAL: KORY Fluid resuscitating for sepsis, will follow up response in creatinine. She is nonoliguric. Monitor intake and output. ID: Septic shock Bandemia UTI - not complicated by obstruction. UTI alone would not explain her degree of abdominal tenderness. Seems that she may have concomitant SBP. Will cover with zosyn; vancomycin 1gram IV x1. Will need bedside u/s to determine if enough fluid for paracentesis. Follow-up blood and urine cultures. Diarrhea - present on admission F/u stool for C diff. Multiple prior courses of abx. HEME: History of non-Hodgkin's lymphoma In remission following chemotherapy 2004 Coags and platelet count nl. ENDO: Diabetes mellitus with acute hyperglycemia. Patient states glucose has been poorly controlled over the last couple of days despite administering insulin therapy which is likely related to sepsis. Will place on insulin drip algorithm #2. PROPH: SCDs for DVT prophylaxis. Heparin can be initiated after possible paracentesis. Protonix 40 mg p.o. daily for stress ulcer prophylaxis. ACCESS: Left IJ central venous line placed 01/10 by ED physician. Full code Level 3 H&P
[2018-01-11] MEDS ORDERED: Insulin Regular (For Infusion) 100 UNIT in Sodium Chlor 0.9% Inj 99 ML IV.CONT PRN (00:50)
[2018-01-11] MEDS ORDERED: Dextrose 50% in Water 50 ML Vial IV.PUSH PRN ×2 (00:50→12:31)
[2018-01-11] MEDS ORDERED: Bisacodyl 10 MG Supp RECTAL PRN (01:09)
[2018-01-11] MEDS: Sod Chloride 0.9% Inj 1,000 ML IV.CONT SCH ×2 (01:28→17:07)
[2018-01-11] MEDS: Potassium Chlor 20 mEq Premix 20 MEQ/100 ML PIGGYBACK IV.SIG SCH ×2 (01:28→03:19)
[2018-01-11] MEDS: Piperacil/Tazo 3.375 GM Premix 50 ML IV.SIG SCH ×4 (01:32→19:52)
[2018-01-11] MEDS: Chlorhexidine Gluconate 2% 1 Pack (2 Cloths) TOPICAL SCH (03:36)
[2018-01-11] MEDS ORDERED: Chlorhexidine Gluconate 2% 1 Pack (2 Cloths) TOPICAL SCH (04:00)
[2018-01-11] MEDS ORDERED: Chlorhexidine Gluconate 2% 1 Pack (2 Cloths) TOPICAL PRN ×2 (04:00)
[2018-01-11] MEDS: HYDROmorphone PF Inj 2 MG/ML Vial IV.PUSH PRN ×5 (04:15→21:41)
[2018-01-11] MEDS: Senna/Docusate Sodium 8.6/50 MG Tablet PO SCH ×2 (08:16→21:42)
[2018-01-11] MEDS ORDERED: Vancomycin Inj 1 GM/200 ML PIGGYBACK IV.SIG ONE (09:52)
[2018-01-11] MEDS ORDERED: Vancomycin Inj 1,000 MG in Sodium Chlor 0.9% Inj 250 ML IV.SIG ONE (10:00)
[2018-01-11 14:05] LABS: Magnesium 1.4 mg/dL (1.5-2.5); Phosphorus 3.4 mg/dL (2.5-4.9)
[2018-01-11 14:13] LABS: Hematocrit 32.2 % (35.0-46.0); Hemoglobin 10.4 gm/dL (11.6-15.3); Mean Corpuscular HGB Conc 32.5 % (32.0-36.0); Mean Corpuscular Hemoglobin 29.8 pg (27.0-34.0); Mean Corpuscular Volume 91.7 fL (80.0-100.0); Mean Platelet Volume 11.6 fL (7.0-11.0); Platelet Count 171 th/mm3 (150-450); Red Blood Count 3.51 mil/mm3 (4.00-5.30); White Blood Count 23.6 th/mm3 (4.0-11.0)
[2018-01-11 14:43] LABS: Lymphocytes 7 % (9-44); Monocytes 5 % (0-8)
[2018-01-11 14:45] LABS: Dohle Bodies Present; Howell-Jolly Bodies Present; Platelet Estimate Normal (Normal); Platelet Morphology Normal (Normal); Toxic Vacuolation Present
[2018-01-11 14:46] LABS: Target Cells 1+
[2018-01-11] MEDS ORDERED: Potassium Chloride 25 MEQ Effervescent Tablet PO PRN (15:57)
[2018-01-11] MEDS ORDERED: Magnesium Oxide 400 MG Tablet PO PRN (15:57)
[2018-01-11] MEDS ORDERED: Potassium Phosphate Inj 30 MMOL in Sodium Chlor 0.9% Inj 250 ML IV.SIG PRN (15:57)
[2018-01-11] MEDS ORDERED: Sodium Phosphate Inj 30 MMOL in Sodium Chlor 0.9% Inj 250 ML IV.SIG PRN (15:57)
[2018-01-11] MEDS ORDERED: Magnesium Sulfate Inj 4 GM in Sodium Chlor 0.9% Inj 92 ML IV.SIG PRN (15:57)
[2018-01-11] MEDS ORDERED: Potassium Chlor 40 mEq Premix 40 MEQ/100 ML PIGGYBACK IV.SIG PRN ×2 (15:57)
[2018-01-11] MEDS ORDERED: Potassium Chlor 20 mEq Premix 20 MEQ/100 ML PIGGYBACK IV.SIG PRN (15:57)
[2018-01-11] MEDS ORDERED: Potassium Phosphate 500 MG Soluble Tablet PO PRN ×2 (15:57)
[2018-01-11] MEDS ORDERED: Magnesium Sulfate Inj 2 GM in Sodium Chlor 0.9% Inj 96 ML IV.SIG PRN (15:57)
[2018-01-11] MEDS: Insulin NovoLIN Regular Correctional Sugar Inj SQ SCH ×2 (17:07→19:56)
--- NOTE | 2018-01-11 19:52 | P.CONGI ---
History of Present Illness Consult date: 01/11/18 Consult reason: Cholangitis, cirrhosis Chief complaint: Sepsis History of Present Illness: Patient is a pleasant 47-year-old female well-known to our service from numerous prior encounters with known history of primary sclerosing cholangitis and cirrhosis who apparently began to experience fever that was very high and this is similar to prior presentations of cholangitis and so she decides to present her blood sugar was skyhigh her liver function tests are above her usual baseline but currently seems to be laying comfortably in bed feeling much better denies any pain nausea or vomiting at this point but did have some abdominal pain nausea and vomiting prior to coming in her blood culture reveals gram-negative rods Review of Systems All other systems reviewed negative except as stated in HPI PMFSH - History History Provided By: Patient - Medical History Medical History: Medical History (Last Updated 01/10/18 @ 19:08 by Angelo Allen RN) Diabetes Hepatomegaly Kidney stone Non Hodgkin's lymphoma - Surgical History Surgical History: Surgical History (Last Updated 01/10/18 @ 19:08 by Angelo Allen RN) H/O splenectomy History of liver biopsy - Family History Family History: Family History (Last Updated 01/11/18 @ 09:32 by Leonor Del Rio MD) Father CAD (coronary artery disease) - Tobacco History Second Hand Smoke Exposure: No Tobacco Use In Past 30 Days: No Smoking Status: Never smoker - Alcohol History How Often Do You Have a Drink Containing Alcohol: Never - Substance Use History Substance History: No History of Abuse - Travel History Recent Travel in the [place] Within the Last 8 Weeks: No Recent Travel Out of the Country Within the Last 8 Weeks: No - Immunization History Tetanus Immunization: <5 Years Hx Influenza Vaccine This Season: No Medications and Allergies Active Medications: Active Medications Al Hydroxide/Mg Hydroxide (Milk Of Roberth Liq) 30 ml PO Q12H PRN PRN Reason: Mild Constipation Bisacodyl (Dulcolax Supp) 10 mg RECTAL DAILY PRN PRN Reason: SEVERE CONSITIPATION Chlorhexidine Gluconate (Chlorhexidine 2% Cloth) 3 pack TOPICAL DAILY@0400 [facility] Stop: 01/16/18 03:59 Last Admin: 01/11/18 03:36 Dose: 3 pack Chlorhexidine Gluconate (Chlorhexidine 2% Cloth) 3 pack TOPICAL DAILY@0400 PRN PRN Reason: Extra cloth needed Stop: 01/16/18 03:59 Dextrose (D50w Vial) 50 ml IV.PUSH UNSCH PRN PRN Reason: PER HYPOGLYCEMIA PROTOCOL Glucagon (Glucagon Inj) 1 mg OTHER PRN PRN PRN Reason: for Hypoglycemia Protocol Hydromorphone HCl (Dilaudid Pf Inj) 0.5 mg IV.PUSH Q4H PRN PRN Reason: pain Last Admin: 01/11/18 17:04 Dose: 0.5 mg Norepinephrine Bitartrate (Levophed-Dextrose 4 Mg/250 Ml Drip) 4 mg in 250 mls @ 7.5 mls/hr IV.SIG TITRATE PRN; Protocol PRN Reason: Per Protocol Last Admin: 01/11/18 17:52 Dose: 7 mcg/min, 26.25 mls/hr Sodium Chloride (Ns Inj) 1,000 mls @ 0 mls/hr IV.SIG BOLUS DESTINI Insulin Human Regular 100 unit (/ Sodium Chloride) 100 mls @ 0 mls/hr IV.CONT TITRATE PRN; Protocol PRN Reason: See protocol Last Titration: 01/11/18 19:18 Dose: Infused Piperacillin/Tazobactam/Dextrose (Zosyn 3.375 Gm Premix) 50 mls @ 100 mls/hr IV.SIG Q6H [facility] Last Infusion: 01/11/18 19:15 Dose: Infused Sodium Chloride (Ns Inj) 1,000 mls @ 84 mls/hr IV.CONT .[id number] [facility] Last Admin: 01/11/18 17:07 Dose: 84 mls/hr Magnesium Sulfate Inj 4 gm/ (Sodium Chloride) 100 mls @ 50 mls/hr IV.SIG UNSCH PRN PRN Reason: For Magnesium 0.9 - 1.1 mg/dL Magnesium Sulfate Inj 2 gm/ (Sodium Chloride) 100 mls @ 50 mls/hr IV.SIG UNSCH PRN PRN Reason: For Magnesium 1.2 - 1.6 mg/dL Potassium Chloride (Kcl 20 Meq Premix Inj) 20 meq in 100 mls @ 50 mls/hr IV.SIG Q2H PRN PRN Reason: For Potassium 3.3 - 3.5 mEq/L Potassium Chloride (Kcl 40 Meq Premix Inj) 40 meq in 100 mls @ 25 mls/hr IV.SIG UNSCH PRN PRN Reason: For Potassium 3.3 - 3.5 mEq/L Potassium Chloride (Kcl 20 Meq Premix Inj) 20 meq in 100 mls @ 50 mls/hr IV.SIG Q2H PRN PRN Reason: For Potassium 2.8 - 3.2 mEq/L Potassium Phosphate 30 mmol/ (Sodium Chloride) 260 mls @ 42 mls/hr IV.SIG UNSCH PRN PRN Reason: SEE LABEL COMMENTS Sodium Phosphate 30 mmol/ (Sodium Chloride) 260 mls @ 42 mls/hr IV.SIG UNSCH PRN PRN Reason: For Phosphorus < 2.5 mg/dL Potassium Chloride (Kcl 40 Meq Premix Inj) 40 meq in 100 mls @ 25 mls/hr IV.SIG Q2H PRN PRN Reason: For Potassium 2.8 - 3.2 mEq/L Insulin Human Regular (Novolin R Correctional Sugar Inj) 0 units SQ Q4HR [facility]; Protocol Last Admin: 01/11/18 17:07 Dose: Not Given Lactulose (Lactulose Liq) 30 ml PO DAILY PRN PRN Reason: SEVERE CONSITIPATION Magnesium Oxide (Mag-Ox) 800 mg PO UNSCH PRN PRN Reason: For Magnesium 1.2 - 1.6 mg/dL Ondansetron HCl (Zofran Inj) 4 mg IV.PUSH Q6H PRN PRN Reason: NAUSEA OR VOMITING Pantoprazole Sodium (Protonix) 40 mg PO DAILY [facility] Last Admin: 01/11/18 08:16 Dose: 40 mg Potassium Bicarb/Potassium Chloride (K-Lyte Cl Eff) 50 meq PO UNSCH PRN PRN Reason: For Potassium 3.3 - 3.5 mEq/L Potassium Phosphate (K-Phos Original) 2,000 mg PO Q4H PRN PRN Reason: Phosphorus Less Than 2.5 mg/dL Potassium Phosphate (K-Phos Original) 2,000 mg PO UNSCH PRN PRN Reason: SEE LABEL COMMENTS Senna/Docusate Sodium (Tish-Colace) 1 tab PO BID [facility] Last Admin: 01/11/18 08:16 Dose: 1 tab Sennosides (Senokot) 17.2 mg PO Q12H PRN PRN Reason: Moderate Constipation Sodium Chloride (Ns Flush) 2 ml IV.FLUSH BID [facility] Last Admin: 01/11/18 08:16 Dose: 2 ml Sodium Chloride (Ns Flush) 2 ml IV.FLUSH PRN PRN PRN Reason: FLUSH AFTER USING IV ACCESS Terbutaline Sulfate (Brethine Inj) 1 mg SQ UNSCH PRN PRN Reason: For Extravasation Allergies Allergy/AdvReac Type Severity Reaction Status Date / Time fentanyl Allergy Severe SOB Verified 01/10/18 18:09 gadobenic acid Allergy Severe BREATHING Verified 01/10/18 18:09 PROBLEMS, N/V,CHILLS gadodiamide Allergy Severe BREATHING Verified 01/10/18 18:09 PROBLEMS, N/V,CHILLS gadoteridol Allergy Severe BREATHING Verified 01/10/18 18:09 PROBLEMS, N/V,CHILLS ketorolac Allergy Severe Shortness Verified 01/10/18 18:09 of Breath morphine Allergy Severe SOB Verified 01/10/18 18:09 tramadol Allergy Mild Shortness Verified 01/10/18 18:09 of Breath Gadolinium-Containing AdvReac Severe nauseas Verified 01/10/18 18:09 Contrast Medi /vomiting MRI PRECAUTION AdvReac Severe NAUSEA; Uncoded 01/10/18 18:09 PER PATIENT IT IS A GADOLINIUM ALLERGY KMD 11/25/12 Exam Vital signs: Vital Signs 01/10/18 20:30 01/10/18 20:45 01/10/18 21:00 Temperature Pulse Rate 96 H 92 H 92 H Respiratory Rate 20 20 20 Blood Pressure 65/45 L 61/41 L 70/44 L Pulse Oximetry 97 96 96 01/10/18 21:15 01/10/18 21:16 01/10/18 21:30 Temperature 98.3 F Pulse Rate 90 92 H 88 Respiratory Rate 20 18 20 Blood Pressure 73/48 L 73/48 L 68/48 L Pulse Oximetry 95 94 L 95 01/10/18 21:45 01/10/18 22:00 01/10/18 22:15 Temperature Pulse Rate 86 84 88 Respiratory Rate 20 20 20 Blood Pressure 74/52 L 82/53 L 84/56 L Pulse Oximetry 100 100 100 01/10/18 22:30 01/10/18 22:45 01/10/18 23:00 Temperature Pulse Rate 89 90 90 Respiratory Rate 20 20 20 Blood Pressure 85/52 L 84/57 L 89/55 L Pulse Oximetry 99 98 98 01/10/18 23:15 01/10/18 23:30 01/11/18 00:40 Temperature 99 F Pulse Rate 96 H 88 92 H Respiratory Rate 20 20 20 Blood Pressure 75/43 L 85/58 L 103/65 Pulse Oximetry 99 98 100 01/11/18 02:00 01/11/18 02:56 01/11/18 04:00 Temperature 98.8 F Pulse Rate 86 79 Respiratory Rate 14 Blood Pressure 92/59 L Pulse Oximetry 98 98 01/11/18 06:00 01/11/18 08:00 01/11/18 08:04 Temperature 99 F Pulse Rate 79 78 Respiratory Rate 16 Blood Pressure 96/61 L Pulse Oximetry 97 99 01/11/18 08:45 01/11/18 10:00 01/11/18 12:00 Temperature 99.2 F Pulse Rate 74 74 Respiratory Rate 16 18 Blood Pressure 96/60 L Pulse Oximetry 97 01/11/18 13:01 01/11/18 14:00 01/11/18 16:00 Temperature 99 F Pulse Rate 73 81 Respiratory Rate 16 20 Blood Pressure 107/69 Pulse Oximetry 01/11/18 18:00 01/11/18 18:59 Temperature Pulse Rate 86 Respiratory Rate 16 Blood Pressure Pulse Oximetry Intake & Output 01/11/18 01/11/18 01/12/18 06:59 18:59 06:59 Intake Total 3100 / 3100 1780 / 1780 400 / 400 Output Total 1050 / 1050 750 / 750 Balance 2050 / 2050 1030 / 1030 400 / 400 Weight 51.9 kg Intake: IV 3100 / 3100 1300 / 1300 400 / 400 NovoLIN R (IV Infusion) 100 100 / 100 UNIT In NS Inj 99 ML @ Per Protocol IV.CONT TITRATE PRN Rx #:[id number] NS Inj 1,000 ML @ 84 mls/hr IV. 1000 / 1000 CONT .[id number] DESTINI Rx#:[id number] Levophed-Dextrose 4 mg/250 ml 250 / 250 Drip 4 mg In 250 ml @ 2 MCG/MIN 7.5 mls/hr IV.SIG TITRATE PRN Rx#:[id number] Zosyn 3.375 GM Premix 50 ML @ 100 / 100 50 / 50 50 / 50 100 mls/hr IV.SIG Q6H DESTINI Rx#: [id number] KCl 20 mEq Premix Inj 20 meq In 200 / 200 100 ml @ 50 mls/hr IV.SIG Q2H DESTINI Rx#:[id number] NS Inj 1,000 ML @ Wide Open IV. 2800 / 2800 SIG BOLUS DESTINI Rx#:[id number] Vancomycin Inj 1,000 MG In NS 250 / 250 Inj 250 ML @ 250 mls/hr IV.SIG ONCE ONE Rx#:[id number] Oral 480 / 480 Output: Urine 750 / 750 Urine Amount (Catheter) 1050 / 1050 Indwelling Urethral Catheter 1050 / 1050 Other: Date of Last Bowel Movement 01/10/18 01/10/18 Weight On Admission 50 kg - Constitutional no acute distress - Routine HEENT Exam Head: Present: normocephalic, atraumatic Eye: Present: EOMI, PERRL ENT: Present: mucous membranes moist - Routine Neck Exam Present: supple. Absent: lymphadenopathy - Routine Respiratory Exam Present: CTA bilaterally - Routine Cardiovascular Exam Present: RRR, S1, S2 - Routine Abdominal Exam Present: soft, normoactive bowel sounds. Absent: tenderness, distended, rebound - Routine Extremities Exam Absent: cyanosis, clubbing, edema - Routine Skin Exam Present: dry, warm - Routine Neurological Exam Present: alert, oriented X3 Results - Labs CBC & Chem 7: 01/11/18 13:15 01/11/18 12:03 Labs: Laboratory Results - last 24 hr 01/10/18 01/10/18 01/10/18 19:45 19:45 19:45 WBC 19.3 H RBC 4.19 Hgb 12.3 Hct 37.7 MCV 90.2 MCH 29.3 MCHC 32.5 RDW 15.7 Plt Count 196 MPV 12.0 H Prelim Diff (Auto) Slide review pending WBC Differential Manual diff final Seg Neuts % (Manual) 62 Band Neuts % (Manual) 32 H Lymphocytes % (Manual) 2 L Monocytes % (Manual) 1 Basophils % (Manual) 1 Metamyelocytes % (Man) 2 H Abs Neuts (Manual) 18.5 H Differential Comment . Toxic Vacuolation Dohle Bodies Platelet Estimate Normal Platelet Morphology Normal Target Cells 3+ H Kelly-Holladay Bodies PT 10.7 INR 1.1 APTT 24.3 Sodium Potassium Chloride Carbon Dioxide Anion Gap BUN Creatinine Estimated GFR POC Glucose Random Glucose Lactic Acid Calcium Phosphorus Magnesium Total Bilirubin AST ALT Alkaline Phosphatase Total Protein Albumin Lipase 68 L Urine Color Urine Clarity Urine pH Ur Specific Elizabeth Urine Protein Urine Glucose (UA) Urine Ketones Urine Occult Blood Urine Nitrate Urine Bilirubin Urine Ictotest Urine Urobilinogen Ur Leukocyte Esterase Urine RBC Urine WBC Amorphous Sediment Urine Bacteria Urine Yeast Micro UA Comment Ur Microscopic Review Urine Culture Comments Nasal Screen MRSA (PCR) 01/10/18 01/10/18 01/10/18 19:45 19:45 22:38 WBC RBC Hgb Hct MCV MCH MCHC RDW Plt Count MPV Prelim Diff (Auto) WBC Differential Seg Neuts % (Manual) Band Neuts % (Manual) Lymphocytes % (Manual) Monocytes % (Manual) Basophils % (Manual) Metamyelocytes % (Man) Abs Neuts (Manual) Differential Comment Toxic Vacuolation Dohle Bodies Platelet Estimate Platelet Morphology Target Cells Kelly-Holladay Bodies PT INR APTT Sodium 132 L Potassium 3.0 L Chloride 97 L Carbon Dioxide 20.5 L Anion Gap 15 BUN 17 Creatinine 1.05 H Estimated GFR 56 L POC Glucose Random Glucose 455 H* Lactic Acid 3.6 H 3.4 H Calcium 8.2 L Phosphorus Magnesium Total Bilirubin 5.7 H AST 252 H ALT 152 H Alkaline Phosphatase 1472 H Total Protein 6.0 L Albumin 1.8 L Lipase Urine Color Urine Clarity Urine pH Ur Specific Elizabeth Urine Protein Urine Glucose (UA) Urine Ketones Urine Occult Blood Urine Nitrate Urine Bilirubin Urine Ictotest Urine Urobilinogen Ur Leukocyte Esterase Urine RBC Urine WBC Amorphous Sediment Urine Bacteria Urine Yeast Micro UA Comment Ur Microscopic Review Urine Culture Comments Nasal Screen MRSA (PCR) 01/10/18 01/11/18 01/11/18 23:57 00:15 00:26 WBC RBC Hgb Hct MCV MCH MCHC RDW Plt Count MPV Prelim Diff (Auto) WBC Differential Seg Neuts % (Manual) Band Neuts % (Manual) Lymphocytes % (Manual) Monocytes % (Manual) Basophils % (Manual) Metamyelocytes % (Man) Abs Neuts (Manual) Differential Comment Toxic Vacuolation Dohle Bodies Platelet Estimate Platelet Morphology Target Cells Kelly-Holladay Bodies PT INR APTT Sodium Potassium Chloride Carbon Dioxide Anion Gap BUN Creatinine Estimated GFR POC Glucose 314 H Random Glucose Lactic Acid Calcium Phosphorus Magnesium Total Bilirubin AST ALT Alkaline Phosphatase Total Protein Albumin Lipase Urine Color Sheri Urine Clarity Cloudy H Urine pH 5.0 Ur Specific Elizabeth 1.011 Urine Protein 100 H Urine Glucose (UA) 500 or greater Urine Ketones Negative Urine Occult Blood Small H Urine Nitrate Negative Urine Bilirubin Small H Urine Ictotest Positive H Urine Urobilinogen Less than 2 Ur Leukocyte Esterase Small H Urine RBC 1 Urine WBC 16 H Amorphous Sediment Rare H Urine Bacteria Moderate H Urine Yeast Occasional H Micro UA Comment Cath-culture ind Ur Microscopic Review Not Reportable Urine Culture Comments Cath-cult indicated Nasal Screen MRSA (PCR) Mrsa detected 01/11/18 01/11/18 01/11/18 01:17 02:00 02:58 WBC RBC Hgb Hct MCV MCH MCHC RDW Plt Count MPV Prelim Diff (Auto) WBC Differential Seg Neuts % (Manual) Band Neuts % (Manual) Lymphocytes % (Manual) Monocytes % (Manual) Basophils % (Manual) Metamyelocytes % (Man) Abs Neuts (Manual) Differential Comment Toxic Vacuolation Dohle Bodies Platelet Estimate Platelet Morphology Target Cells Kelly-Holladay Bodies PT INR APTT Sodium Potassium Chloride Carbon Dioxide Anion Gap BUN Creatinine Estimated GFR POC Glucose 288 H 240 H Random Glucose Lactic Acid 1.3 Calcium Phosphorus Magnesium Total Bilirubin AST ALT Alkaline Phosphatase Total Protein Albumin Lipase Urine Color Urine Clarity Urine pH Ur Specific Elizabeth Urine Protein Urine Glucose (UA) Urine Ketones Urine Occult Blood Urine Nitrate Urine Bilirubin Urine Ictotest Urine Urobilinogen Ur Leukocyte Esterase Urine RBC Urine WBC Amorphous Sediment Urine Bacteria Urine Yeast Micro UA Comment Ur Microscopic Review Urine Culture Comments Nasal Screen MRSA (PCR) 01/11/18 01/11/18 01/11/18 03:59 05:13 06:06 WBC RBC Hgb Hct MCV MCH MCHC RDW Plt Count MPV Prelim Diff (Auto) WBC Differential Seg Neuts % (Manual) Band Neuts % (Manual) Lymphocytes % (Manual) Monocytes % (Manual) Basophils % (Manual) Metamyelocytes % (Man) Abs Neuts (Manual) Differential Comment Toxic Vacuolation Dohle Bodies Platelet Estimate Platelet Morphology Target Cells Kelly-Holladay Bodies PT INR APTT Sodium Potassium Chloride Carbon Dioxide Anion Gap BUN Creatinine Estimated GFR POC Glucose 182 H 115 H 92 Random Glucose Lactic Acid Calcium Phosphorus Magnesium Total Bilirubin AST ALT Alkaline Phosphatase Total Protein Albumin Lipase Urine Color Urine Clarity Urine pH Ur Specific Elizabeth Urine Protein Urine Glucose (UA) Urine Ketones Urine Occult Blood Urine Nitrate Urine Bilirubin Urine Ictotest Urine Urobilinogen Ur Leukocyte Esterase Urine RBC Urine WBC Amorphous Sediment Urine Bacteria Urine Yeast Micro UA Comment Ur Microscopic Review Urine Culture Comments Nasal Screen MRSA (PCR) 01/11/18 01/11/18 01/11/18 06:58 09:46 10:53 WBC RBC Hgb Hct MCV MCH MCHC RDW Plt Count MPV Prelim Diff (Auto) WBC Differential Seg Neuts % (Manual) Band Neuts % (Manual) Lymphocytes % (Manual) Monocytes % (Manual) Basophils % (Manual) Metamyelocytes % (Man) Abs Neuts (Manual) Differential Comment Toxic Vacuolation Dohle Bodies Platelet Estimate Platelet Morphology Target Cells Kelly-Holladay Bodies PT INR APTT Sodium Potassium Chloride Carbon Dioxide Anion Gap BUN Creatinine Estimated GFR POC Glucose 105 127 H 135 H Random Glucose Lactic Acid Calcium Phosphorus Magnesium Total Bilirubin AST ALT Alkaline Phosphatase Total Protein Albumin Lipase Urine Color Urine Clarity Urine pH Ur Specific Elizabeth Urine Protein Urine Glucose (UA) Urine Ketones Urine Occult Blood Urine Nitrate Urine Bilirubin Urine Ictotest Urine Urobilinogen Ur Leukocyte Esterase Urine RBC Urine WBC Amorphous Sediment Urine Bacteria Urine Yeast Micro UA Comment Ur Microscopic Review Urine Culture Comments Nasal Screen MRSA (PCR) 01/11/18 01/11/18 01/11/18 12:03 12:28 12:30 WBC RBC Hgb Hct MCV MCH MCHC RDW Plt Count MPV Prelim Diff (Auto) WBC Differential Seg Neuts % (Manual) Band Neuts % (Manual) Lymphocytes % (Manual) Monocytes % (Manual) Basophils % (Manual) Metamyelocytes % (Man) Abs Neuts (Manual) Differential Comment Toxic Vacuolation Dohle Bodies Platelet Estimate Platelet Morphology Target Cells Kelly-Holladay Bodies PT INR APTT Sodium Potassium 3.6 Chloride Carbon Dioxide Anion Gap BUN Creatinine Estimated GFR POC Glucose 118 H Random Glucose Lactic Acid Calcium Phosphorus 3.4 Magnesium 1.4 L Total Bilirubin AST ALT Alkaline Phosphatase Total Protein Albumin Lipase Urine Color Urine Clarity Urine pH Ur Specific Elizabeth Urine Protein Urine Glucose (UA) Urine Ketones Urine Occult Blood Urine Nitrate Urine Bilirubin Urine Ictotest Urine Urobilinogen Ur Leukocyte Esterase Urine RBC Urine WBC Amorphous Sediment Urine Bacteria Urine Yeast Micro UA Comment Ur Microscopic Review Urine Culture Comments Nasal Screen MRSA (PCR) 01/11/18 01/11/18 13:15 17:02 WBC 23.6 H RBC 3.51 L Hgb 10.4 L Hct 32.2 L MCV 91.7 MCH 29.8 MCHC 32.5 RDW 16.0 Plt Count 171 MPV 11.6 H Prelim Diff (Auto) Manual diff required WBC Differential Manual diff final Seg Neuts % (Manual) 66 Band Neuts % (Manual) 22 H Lymphocytes % (Manual) 7 L Monocytes % (Manual) 5 Basophils % (Manual) Metamyelocytes % (Man) Abs Neuts (Manual) 20.8 H Differential Comment . Toxic Vacuolation Present H Dohle Bodies Present H Platelet Estimate Normal Platelet Morphology Normal Target Cells 1+ H Kelly-Holladay Bodies Present H PT INR APTT Sodium Potassium Chloride Carbon Dioxide Anion Gap BUN Creatinine Estimated GFR POC Glucose 94 Random Glucose Lactic Acid Calcium Phosphorus Magnesium Total Bilirubin AST ALT Alkaline Phosphatase Total Protein Albumin Lipase Urine Color Urine Clarity Urine pH Ur Specific Elizabeth Urine Protein Urine Glucose (UA) Urine Ketones Urine Occult Blood Urine Nitrate Urine Bilirubin Urine Ictotest Urine Urobilinogen Ur Leukocyte Esterase Urine RBC Urine WBC Amorphous Sediment Urine Bacteria Urine Yeast Micro UA Comment Ur Microscopic Review Urine Culture Comments Nasal Screen MRSA (PCR) - Imaging Impressions Chest X-Ray 01/10/18 21:09 CONCLUSION: Interval placement of left IJ catheter with 1.5 cm lateral pneumothorax on the left side. Chest CT 01/10/18 22:04 CONCLUSION: 1. No evidence of pneumothorax on the left side. Abdomen/Pelvis CT 01/10/18 23:21 CONCLUSION: 1. There are stable findings of hepatic cirrhosis, pneumobilia and probable portal hypertension with prominence of the portal venous system. 2. Mild, diffuse abdominal ascites and mesenteric edema probably due to passive congestion. Small amount of free fluid in the deep pelvis. 3. Stable bilateral lower pole, nonobstructing renal stones. Largest on the left measures 9.5 mm in diameter. 4. No significant change from prior. Assessment and Plan - Plan Patient presenting with fever is noted to have leukocytosis gram-negative rods in her blood suggestive of sepsis she does have a history of primary sclerosing cholangitis PSC and does have cirrhosis or liver function tests are above their usual baseline and her chemistry profile reveals severely elevated blood sugar with probable DKA and her albumin is very low suggestive of malnutrition At this point the patient appears to be improving Agree with current supportive care Continue with antibiotics Monitor labs May need an ERCP although her current CT does not show any dilations of bile ducts Nutrition needs to be addressed sometime soon we will defer to admitting service
[2018-01-12] MEDS: Insulin NovoLIN Regular Correctional Sugar Inj SQ SCH ×6 (00:35→20:44)
[2018-01-12] MEDS: Sod Chloride 0.9% Inj 1,000 ML IV.CONT SCH ×2 (01:50→12:15)
[2018-01-12] MEDS: Piperacil/Tazo 3.375 GM Premix 50 ML IV.SIG SCH ×4 (01:51→20:44)
[2018-01-12] MEDS: HYDROmorphone PF Inj 2 MG/ML Vial IV.PUSH PRN ×5 (01:51→20:27)
[2018-01-12 04:04] LABS: Hematocrit 31.4 % (35.0-46.0); Hemoglobin 10.3 gm/dL (11.6-15.3); Mean Corpuscular HGB Conc 32.9 % (32.0-36.0); Mean Corpuscular Hemoglobin 29.9 pg (27.0-34.0); Mean Corpuscular Volume 90.9 fL (80.0-100.0); Mean Platelet Volume 11.7 fL (7.0-11.0); Platelet Count 154 th/mm3 (150-450); Red Blood Count 3.46 mil/mm3 (4.00-5.30); Red Cell Distribution Width 16.1 % (11.6-17.2); White Blood Count 18.6 th/mm3 (4.0-11.0)
[2018-01-12 04:08] LABS: INR 1.2 Ratio; Prothrombin Time 11.8 sec (9.8-11.6)
[2018-01-12] MEDS: Chlorhexidine Gluconate 2% 1 Pack (2 Cloths) TOPICAL SCH (04:13)
[2018-01-12 07:12] LABS: Chloride 110 meq/L (98-107); Potassium 3.1 meq/L (3.5-5.1); Sodium 144 meq/L (136-145)
[2018-01-12 07:13] LABS: Alanine Aminotransferase 153 U/L (10-53); Anion Gap 10 meq/L (5-15); Aspartate Aminotransferase 253 U/L (15-37); Blood Urea Nitrogen 8 mg/dL (7-18); Calcium 7.6 mg/dL (8.5-10.1); Carbon Dioxide 24.3 meq/L (21.0-32.0); Glomerular Filtration Rate Greater Than 89 mL/min (>89); Glucose,Random 112 mg/dL (74-106); Magnesium 1.7 mg/dL (1.5-2.5); Phosphorus 2.7 mg/dL (2.5-4.9)
[2018-01-12 07:14] LABS: Albumin 1.5 g/dL (3.4-5.0); Alkaline Phosphatase 994 U/L (45-117); Total Protein 5.3 g/dL (6.4-8.2)
[2018-01-12 07:32] LABS: Lymphocytes 9 % (9-44); Monocytes 3 % (0-8)
[2018-01-12 07:33] LABS: Target Cells 2+
[2018-01-12 07:34] LABS: Howell-Jolly Bodies Present; Platelet Estimate Normal (Normal); Platelet Morphology Normal (Normal)
[2018-01-12 07:35] LABS: Toxic Vacuolation Present
[2018-01-12] MEDS: Senna/Docusate Sodium 8.6/50 MG Tablet PO SCH ×2 (08:24→20:30)
--- NOTE | 2018-01-12 14:16 | P.PNCC ---
Subjective Subjective Remarks/Hospital Course: 47-year-old female with past medical history of non-Hodgkin's lymphoma who underwent chemotherapy in 2004. 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 She states yesterday she developed diarrhea and had 5-6 loose bowel movements, non-melena, nonbloody. She also experienced dysuria and nausea without vomiting. She noted she was jaundiced and had abdominal pain.. Today she has been in bed most of the day, had a fever of 103, and now developed "severe" bilateral flank pain. She presented to the ED hypotensive with leukocytosis and bandemia. Left IJ central venous line was placed by ED physician and there was concern regarding left pneumothorax on chest x-ray but follow-up CT showed no pneumothorax. CT abd/pelvis with mild ascites. No e/o urinary obstruction. SUBJECTIVE: 01/12: Resting comfortably in bed on nasal cannula. Off norepinephrine drip. Tolerating diet with minimal nausea. Abdominal pain better control. Objective Vital Signs / I&O: Vital Signs 01/11/18 16:00 01/11/18 18:00 01/11/18 18:59 Temperature 99 F Pulse Rate 81 86 Respiratory Rate 20 16 Blood Pressure 107/69 Pulse Oximetry 01/11/18 20:00 01/11/18 21:41 01/11/18 22:00 Temperature 98.4 F Pulse Rate 75 94 H Respiratory Rate 16 Blood Pressure 106/65 Pulse Oximetry 98 98 01/11/18 23:17 01/12/18 00:00 01/12/18 02:00 Temperature 98.7 F Pulse Rate 74 80 Respiratory Rate 17 19 Blood Pressure 106/61 Pulse Oximetry 96 01/12/18 02:38 01/12/18 04:00 01/12/18 06:00 Temperature 99 F Pulse Rate 83 78 Respiratory Rate 14 13 24 Blood Pressure 109/69 Pulse Oximetry 98 01/12/18 08:00 01/12/18 09:47 01/12/18 10:00 Temperature 98.7 F Pulse Rate 73 71 Respiratory Rate 16 Blood Pressure 94/63 L Pulse Oximetry 97 98 01/12/18 12:00 01/12/18 14:00 Temperature 98.6 F Pulse Rate 71 87 Respiratory Rate 18 Blood Pressure 106/66 Pulse Oximetry 98 Intake & Output 01/11/18 01/12/18 01/12/18 18:59 06:59 18:59 Intake Total 1780 / 1780 1500 / 1500 1000 / 1000 Output Total 750 / 750 750 / 750 Balance 1030 / 1030 750 / 750 1000 / 1000 Weight 53.7 kg Intake: IV 1300 / 1300 1500 / 1500 1000 / 1000 NovoLIN R (IV Infusion) 100 100 / 100 UNIT In NS Inj 99 ML @ Per Protocol IV.CONT TITRATE PRN Rx #:[id number] NS Inj 1,000 ML @ 84 mls/hr IV. 1000 / 1000 1000 / 1000 1000 / 1000 CONT .[id number] [facility] Rx#:[id number] Levophed-Dextrose 4 mg/250 ml 250 / 250 Drip 4 mg In 250 ml @ 2 MCG/MIN 7.5 mls/hr IV.SIG TITRATE PRN Rx#:[id number] Zosyn 3.375 GM Premix 50 ML @ 50 / 50 150 / 150 100 mls/hr IV.SIG Q6H [facility] Rx#: [id number] Vancomycin Inj 1,000 MG In NS 250 / 250 Inj 250 ML @ 250 mls/hr IV.SIG ONCE ONE Rx#:[id number] Oral 480 / 480 Output: Urine 750 / 750 750 / 750 Other: Date of Last Bowel Movement 01/10/18 01/10/18 01/10/18 # Bowel Movements 0 Result Diagrams: 01/12/18 Unknown 01/12/18 04:00 Other Results: Microbiology 01/10/18 19:45 Blood - Peripheral Aerobic Blood Culture - Preliminary gram negative rods 01/10/18 19:45 Blood - Peripheral Anaerobic Blood Culture - Preliminary gram negative rods 01/10/18 19:40 Blood - Peripheral Aerobic Blood Culture - Preliminary gram negative rods 01/10/18 19:40 Blood - Peripheral Anaerobic Blood Culture - Preliminary gram negative rods 01/10/18 23:57 Catheterized Urine Urine Culture - Preliminary Yeast - ID to follow Imaging: ITS Impressions Chest X-Ray 01/10/18 21:09 CONCLUSION: Interval placement of left IJ catheter with 1.5 cm lateral pneumothorax on the left side. Chest CT 01/10/18 22:04 CONCLUSION: 1. No evidence of pneumothorax on the left side. Abdomen/Pelvis CT 01/10/18 23:21 CONCLUSION: 1. There are stable findings of hepatic cirrhosis, pneumobilia and probable portal hypertension with prominence of the portal venous system. 2. Mild, diffuse abdominal ascites and mesenteric edema probably due to passive congestion. Small amount of free fluid in the deep pelvis. 3. Stable bilateral lower pole, nonobstructing renal stones. Largest on the left measures 9.5 mm in diameter. 4. No significant change from prior. Objective Remarks: GENERAL: 47-year-old female resting in bed in no acute distress SKIN: Warm and dry. HEAD: Atraumatic. Normocephalic. EYES: Pupils equal and round. No scleral icterus. No injection or drainage. ENT: No nasal bleeding or discharge. Mucous membranes pink and moist. NECK: Trachea midline. No JVD. CARDIOVASCULAR: Regular rate and rhythm. RESPIRATORY: No accessory muscle use. Clear to auscultation. Breath sounds equal bilaterally. GASTROINTESTINAL: Abdomen soft, non-tender, nondistended. Hepatic and splenic margins not palpable. MUSCULOSKELETAL: Extremities without clubbing, cyanosis, or edema. No obvious deformities. NEUROLOGICAL: Awake and alert. No obvious cranial nerve deficits. Motor grossly within normal limits. Five out of 5 muscle strength in the arms and legs. Normal speech. PSYCHIATRIC: Appropriate mood and affect; insight and judgment normal. Assessment and Plan - Assessment and Plan Plan: NEURO/PSYCH: Hydromorphone 0.5 mg every 4 hours as needed for pain RESP: Incentive spirometry while awake nasal cannula to maintain saturations greater than equal to 92% CV: Septic shock Elevated LDL Received 3 L normal saline in the emergency department. NS 100 mL/h. Norepinephrine drip has been weaned off titrate to maintain mean arterial pressure greater than 65, Serial lactic acid will be rechecked in a.m. 01/13. GI: Severe chronic hepatitis cirrhosis Diagnosis of sclerosing Cholangitis Portal hypertension Mild abdominal ascites. Diarrhea - present on admission Chronic pancreatitis on Creon as an outpatient previously Hypoalbuminemia Hx sclerosing cholangitis (pt states secondary to mass from NHL from liver biopsy 2013). Liver biopsy or 08/03 different revealing severe chronic hepatitis likely drug- induced Currently followed by GI . Started ADA diet today Status post stent by Dr. Plummer at [facility] 2017 Patient has previously been evaluated by [facility] transplant. Previously on ursodiol 300 mg twice daily FEN/RENAL/: KORY Bilateral nephrolithiasis CT abdomen/pelvis revealed stable findings of hepatic cirrhosis, pneumobilia and probable portal hypertension with prominence of the portal venous system. Mild, diffuse abdominal ascites and mesenteric edema probably due to passive congestion. Small amount of free fluid in the deep pelvis. Stable bilateral lower pole, nonobstructing renal stones. Largest on the left measures 9.5 mm in diameter. creatinine is normalizing. Monitor urine output Accurate I's and O's ID: Septic shock secondary to gram-negative romeo bacteremia Funguria Currently on piperacillin/tazobactam. Continue Vancomycin provided as well Repeat blood cultures 01/12 Blood cultures 2 01/10 gram-negative rods. F/u stool for C diff. Multiple prior courses of abx. Infectious disease consultation HEME: Leukocytosis Normocytic anemia History of non-Hodgkin's lymphoma In remission following chemotherapy 2004 Coags and platelet count nl.. Recheck in a.m. ENDO: Diabetes mellitus Previously on insulin detemir 25 units at night with sliding scale insulin. We will restart insulin detemir 5 units twice daily with sliding scale insulin Accu-Cheks q. before meals at bedtime to maintain euglycemia. FEN: Hypokalemia Replace electrolytes as clinically indicated MSK: PT evaluate and treat PROPH: SCDs for DVT prophylaxis. Heparin 5000 units twice daily sub. Pantoprazole 40 mg p.o. daily for stress ulcer prophylaxis. ACCESS: Left IJ central venous line placed 01/10 by ED physician. Full code Level 2 follow-up
--- NOTE | 2018-01-12 19:54 | P.PNGI ---
Subjective Interval history: Patient comfortable in bed feeling better tolerating intake but still has some pain Physical Exam Vital signs: Vital Signs 01/11/18 20:00 01/11/18 21:41 01/11/18 22:00 Temperature 98.4 F Pulse Rate 75 94 H Respiratory Rate 16 Blood Pressure 106/65 Pulse Oximetry 98 98 01/11/18 23:17 01/12/18 00:00 01/12/18 02:00 Temperature 98.7 F Pulse Rate 74 80 Respiratory Rate 17 19 Blood Pressure 106/61 Pulse Oximetry 96 01/12/18 02:38 01/12/18 04:00 01/12/18 06:00 Temperature 99 F Pulse Rate 83 78 Respiratory Rate 14 13 24 Blood Pressure 109/69 Pulse Oximetry 98 01/12/18 08:00 01/12/18 09:47 01/12/18 10:00 Temperature 98.7 F Pulse Rate 73 71 Respiratory Rate 16 Blood Pressure 94/63 L Pulse Oximetry 97 98 01/12/18 12:00 01/12/18 14:00 01/12/18 15:50 Temperature 98.6 F Pulse Rate 71 87 Respiratory Rate 18 16 Blood Pressure 106/66 Pulse Oximetry 98 01/12/18 16:00 01/12/18 18:00 01/12/18 18:07 Temperature 98 F Pulse Rate 85 95 H Respiratory Rate 16 16 Blood Pressure 117/66 Pulse Oximetry 99 Intake & Output 01/12/18 01/12/18 01/13/18 06:59 18:59 06:59 Intake Total 1500 / 1500 1650 / 1650 Output Total 750 / 750 750 / 750 Balance 750 / 750 900 / 900 Weight 53.7 kg Intake: IV 1500 / 1500 1050 / 1050 NovoLIN R (IV Infusion) 100 100 / 100 UNIT In NS Inj 99 ML @ Per Protocol IV.CONT TITRATE PRN Rx #:[id number] NS Inj 1,000 ML @ 84 mls/hr IV. 1000 / 1000 1000 / 1000 CONT .[id number] [facility] Rx#:[id number] Zosyn 3.375 GM Premix 50 ML @ 150 / 150 50 / 50 100 mls/hr IV.SIG Q6H [facility] Rx#: [id number] Vancomycin Inj 1,000 MG In NS 250 / 250 Inj 250 ML @ 250 mls/hr IV.SIG ONCE ONE Rx#:[id number] Oral 600 / 600 Output: Urine 750 / 750 Urine Amount (Catheter) 750 / 750 Indwelling Urethral Catheter 750 / 750 Other: Date of Last Bowel Movement 01/10/18 01/10/18 # Bowel Movements 0 - Constitutional no acute distress - Routine HEENT Exam Head: Present: normocephalic Eye: Present: EOMI - Routine Neck Exam Present: supple - Routine Respiratory Exam Present: CTA bilaterally - Routine Cardiovascular Exam Present: RRR - Routine Abdominal Exam Present: soft, tenderness (Mild to moderate upper abdominal tenderness especially the right side). Absent: distended, rebound - Routine Extremities Exam Absent: cyanosis, clubbing - Urinary Catheter Management Indwelling Urethral Catheter Cath placed during this visit: yes Reason for continuing: Hourly intake/output Insertion date: 01/10/18 Insertion time: 23:30 Results - Labs CBC & Chem 7: 01/12/18 Unknown 01/12/18 04:00 Laboratory Results - last 24 hr 01/11/18 01/11/18 01/11/18 12:30 19:53 21:48 WBC RBC Hgb Hct MCV MCH MCHC RDW Plt Count MPV Prelim Diff (Auto) WBC Differential Seg Neuts % (Manual) Band Neuts % (Manual) Lymphocytes % (Manual) Monocytes % (Manual) Basophils % (Manual) Abs Neuts (Manual) Differential Comment Toxic Vacuolation Platelet Estimate Platelet Morphology Target Cells [place] Bodies PT 11.8 H INR 1.2 Sodium Cancelled Potassium Cancelled Chloride Cancelled Carbon Dioxide Cancelled Anion Gap Cancelled BUN Cancelled Creatinine Cancelled Estimated GFR Cancelled POC Glucose 100 Random Glucose Cancelled Calcium Cancelled Prot Corrected Calcium Cancelled Phosphorus Magnesium Total Bilirubin Cancelled AST Cancelled ALT Cancelled Alkaline Phosphatase Cancelled Total Protein Cancelled Albumin Cancelled 01/12/18 01/12/18 01/12/18 00:31 03:29 04:00 WBC RBC Hgb Hct MCV MCH MCHC RDW Plt Count MPV Prelim Diff (Auto) WBC Differential Seg Neuts % (Manual) Band Neuts % (Manual) Lymphocytes % (Manual) Monocytes % (Manual) Basophils % (Manual) Abs Neuts (Manual) Differential Comment Toxic Vacuolation Platelet Estimate Platelet Morphology Target Cells [place] Bodies PT INR Sodium 144 D Potassium 3.1 L Chloride 110 H D Carbon Dioxide 24.3 Anion Gap 10 BUN 8 Creatinine 0.65 Estimated GFR Greater than 89 POC Glucose 92 112 H Random Glucose 112 H D Calcium 7.6 L Prot Corrected Calcium Phosphorus 2.7 Magnesium 1.7 Total Bilirubin 5.0 H AST 253 H ALT 153 H Alkaline Phosphatase 994 H Total Protein 5.3 L D Albumin 1.5 L 01/12/18 01/12/18 01/12/18 12:09 16:20 Unknown WBC 18.6 H RBC 3.46 L Hgb 10.3 L Hct 31.4 L MCV 90.9 MCH 29.9 MCHC 32.9 RDW 16.1 Plt Count 154 MPV 11.7 H Prelim Diff (Auto) Manual diff required WBC Differential Manual diff final Seg Neuts % (Manual) 70 Band Neuts % (Manual) 17 H Lymphocytes % (Manual) 9 Monocytes % (Manual) 3 Basophils % (Manual) 1 Abs Neuts (Manual) 16.2 H Differential Comment . Toxic Vacuolation Present H Platelet Estimate Normal Platelet Morphology Normal Target Cells 2+ H [place] Bodies Present H PT INR Sodium Potassium Chloride Carbon Dioxide Anion Gap BUN Creatinine Estimated GFR POC Glucose 115 H 132 H Random Glucose Calcium Prot Corrected Calcium Phosphorus Magnesium Total Bilirubin AST ALT Alkaline Phosphatase Total Protein Albumin Microbiology 01/10/18 19:45 Blood - Peripheral Aerobic Blood Culture - Preliminary gram negative rods 01/10/18 19:45 Blood - Peripheral Anaerobic Blood Culture - Preliminary gram negative rods 01/10/18 19:40 Blood - Peripheral Aerobic Blood Culture - Preliminary gram negative rods 01/10/18 19:40 Blood - Peripheral Anaerobic Blood Culture - Preliminary gram negative rods 01/10/18 23:57 Catheterized Urine Urine Culture - Preliminary Yeast - ID to follow Assessment and Plan - Plan Patient presenting with fever is noted to have leukocytosis gram-negative rods in her blood suggestive of sepsis she does have a history of primary sclerosing cholangitis PSC and does have cirrhosis or liver function tests are above their usual baseline and her chemistry profile reveals severely elevated blood sugar with probable DKA and her albumin is very low suggestive of malnutrition At this point the patient appears to be improving her alk phos has come down significantly and it is more like her baseline at this point Agree with current supportive care Continue with antibiotics Monitor labs Nutrition needs to be addressed sometime soon we will defer to admitting service consider supplements
[2018-01-12] MEDS: Heparin - SQ 10,000 UNITS/ML Vial SQ SCH ×2 (20:28→20:34)
[2018-01-12] MEDS: Insulin Detemir Inj 1,000 UNIT/10 ML Vial SQ SCH (20:29)
[2018-01-13] MEDS: HYDROmorphone PF Inj 2 MG/ML Vial IV.PUSH PRN ×3 (00:35→21:13)
[2018-01-13] MEDS: Sod Chloride 0.9% Inj 1,000 ML IV.CONT SCH (02:04)
[2018-01-13] MEDS: Piperacil/Tazo 3.375 GM Premix 50 ML IV.SIG SCH ×4 (02:04→20:45)
[2018-01-13] MEDS: Insulin NovoLIN Regular Correctional Sugar Inj SQ SCH ×5 (03:00→20:46)
[2018-01-13] MEDS: Chlorhexidine Gluconate 2% 1 Pack (2 Cloths) TOPICAL SCH (04:00)
[2018-01-13 07:06] LABS: Hematocrit 37.6 % (35.0-46.0); Hemoglobin 12.5 gm/dL (11.6-15.3); Mean Corpuscular HGB Conc 33.3 % (32.0-36.0); Mean Corpuscular Volume 90.1 fL (80.0-100.0); Mean Platelet Volume 12.1 fL (7.0-11.0); Platelet Count 196 th/mm3 (150-450); Red Blood Count 4.18 mil/mm3 (4.00-5.30); Red Cell Distribution Width 16.2 % (11.6-17.2); White Blood Count 12.6 th/mm3 (4.0-11.0)
[2018-01-13 07:22] LABS: Activated Partial Thrombo Time 26.5 sec (24.3-30.1); INR 1.1 Ratio; Prothrombin Time 10.7 sec (9.8-11.6)
[2018-01-13 07:53] LABS: Alanine Aminotransferase 170 U/L (10-53); Albumin 1.8 g/dL (3.4-5.0); Alkaline Phosphatase 1315 U/L (45-117); Anion Gap 12 meq/L (5-15); Aspartate Aminotransferase 225 U/L (15-37); Blood Urea Nitrogen 8 mg/dL (7-18); Calcium 8.6 mg/dL (8.5-10.1); Carbon Dioxide 23.5 meq/L (21.0-32.0); Chloride 106 meq/L (98-107); Glomerular Filtration Rate Greater Than 89 mL/min (>89); Glucose,Random 76 mg/dL (74-106); Magnesium 1.9 mg/dL (1.5-2.5); Phosphorus 2.4 mg/dL (2.5-4.9); Potassium 3.8 meq/L (3.5-5.1); Sodium 141 meq/L (136-145); Total Protein 7.2 g/dL (6.4-8.2)
[2018-01-13] MEDS: Heparin - SQ 10,000 UNITS/ML Vial SQ SCH ×3 (08:12→20:44)
[2018-01-13] MEDS: Senna/Docusate Sodium 8.6/50 MG Tablet PO SCH ×2 (08:12→20:46)
[2018-01-13] MEDS: Insulin Detemir Inj 1,000 UNIT/10 ML Vial SQ SCH ×2 (08:15→20:45)
[2018-01-13 08:23] LABS: Eosinophils 1 % (0-4); Howell-Jolly Bodies Present; Lymphocytes 19 % (9-44); Monocytes 3 % (0-8); Platelet Estimate Normal (Normal); Target Cells 2+
--- NOTE | 2018-01-13 08:53 | P.PNCC ---
Subjective Subjective Remarks/Hospital Course: 47-year-old female with past medical history of non-Hodgkin's lymphoma who underwent chemotherapy in 2004. 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 She states yesterday she developed diarrhea and had 5-6 loose bowel movements, non-melena, nonbloody. She also experienced dysuria and nausea without vomiting. She noted she was jaundiced and had abdominal pain.. Today she has been in bed most of the day, had a fever of 103, and now developed "severe" bilateral flank pain. She presented to the ED hypotensive with leukocytosis and bandemia. Left IJ central venous line was placed by ED physician and there was concern regarding left pneumothorax on chest x-ray but follow-up CT showed no pneumothorax. CT abd/pelvis with mild ascites. No e/o urinary obstruction. SUBJECTIVE: 01/12: Resting comfortably in bed on nasal cannula. Off norepinephrine drip. Tolerating diet with minimal nausea. Abdominal pain better control. 01/13 Patient pulled off her central line and PIV's overnight. Awake and alert, denies any SOB/CP, on no drips. Afebrile. Objective Vital Signs / I&O: Vital Signs 01/12/18 09:47 01/12/18 10:00 01/12/18 12:00 Temperature 98.6 F Pulse Rate 71 71 Respiratory Rate 18 Blood Pressure 106/66 Pulse Oximetry 98 98 01/12/18 14:00 01/12/18 15:50 01/12/18 16:00 Temperature 98 F Pulse Rate 87 85 Respiratory Rate 16 16 Blood Pressure 117/66 Pulse Oximetry 99 01/12/18 18:00 01/12/18 18:07 01/12/18 20:00 Temperature 98.3 F Pulse Rate 95 H 93 H Respiratory Rate 16 22 Blood Pressure 113/71 Pulse Oximetry 98 01/12/18 20:30 01/12/18 22:00 01/13/18 00:00 Temperature 98.5 F Pulse Rate 103 H 85 Respiratory Rate 14 Blood Pressure 110/74 Pulse Oximetry 98 95 01/13/18 02:00 01/13/18 04:00 01/13/18 06:00 Temperature 98.4 F Pulse Rate 97 H 86 87 Respiratory Rate 12 Blood Pressure 110/71 Pulse Oximetry 97 Intake & Output 01/12/18 01/13/18 01/13/18 18:59 06:59 18:59 Intake Total 1900 / 1900 1380 / 1380 Output Total 750 / 750 700 / 700 Balance 1150 / 1150 680 / 680 Weight 56 kg Intake: IV 1300 / 1300 900 / 900 NS Inj 1,000 ML @ 84 mls/hr IV. 1000 / 1000 850 / 850 CONT .[id number] [facility] Rx#:[id number] Zosyn 3.375 GM Premix 50 ML @ 100 / 100 50 / 50 100 mls/hr IV.SIG Q6H [facility] Rx#: [id number] KCl 40 mEq Premix Inj 40 meq In 200 / 200 100 ml @ 25 mls/hr IV.SIG UNSCH PRN Rx#:[id number] Oral 600 / 600 480 / 480 Output: Urine 250 / 250 Urine Amount (Catheter) 750 / 750 450 / 450 Indwelling Urethral Catheter 750 / 750 450 / 450 Other: Date of Last Bowel Movement 01/10/18 01/10/18 # Bowel Movements 0 Result Diagrams: 01/13/18 06:16 01/13/18 06:16 Other Results: Laboratory Results - last 12 hr 01/12/18 01/13/18 01/13/18 21:20 00:45 03:07 WBC RBC Hgb Hct MCV MCH MCHC RDW Plt Count MPV Prelim Diff (Auto) WBC Differential Seg Neuts % (Manual) Band Neuts % (Manual) Lymphocytes % (Manual) Monocytes % (Manual) Eosinophils % (Manual) Basophils % (Manual) Abs Neuts (Manual) Differential Comment Platelet Estimate Platelet Morphology Target Cells [place] Bodies PT INR APTT Sodium Cancelled Potassium Cancelled Chloride Cancelled Carbon Dioxide Cancelled Anion Gap Cancelled BUN Cancelled Creatinine Cancelled Estimated GFR Cancelled POC Glucose 235 H 135 H Random Glucose Cancelled Lactic Acid Calcium Cancelled Phosphorus Magnesium Total Bilirubin AST ALT Alkaline Phosphatase Ammonia Total Protein Albumin 01/13/18 01/13/18 01/13/18 06:16 06:16 06:16 WBC 12.6 H RBC 4.18 Hgb 12.5 D Hct 37.6 MCV 90.1 MCH 30.0 MCHC 33.3 RDW 16.2 Plt Count 196 MPV 12.1 H Prelim Diff (Auto) Manual diff required WBC Differential Manual diff final Seg Neuts % (Manual) 68 Band Neuts % (Manual) 8 H Lymphocytes % (Manual) 19 Monocytes % (Manual) 3 Eosinophils % (Manual) 1 Basophils % (Manual) 1 Abs Neuts (Manual) 9.6 H Differential Comment . Platelet Estimate Normal Platelet Morphology Enlarged H Target Cells 2+ H [place] Bodies Present H PT 10.7 INR 1.1 APTT 26.5 Sodium 141 Potassium 3.8 Chloride 106 Carbon Dioxide 23.5 Anion Gap 12 BUN 8 Creatinine 0.50 Estimated GFR Greater than 89 POC Glucose Random Glucose 76 Lactic Acid Calcium 8.6 D Phosphorus 2.4 L Magnesium 1.9 Total Bilirubin 5.8 H AST 225 H ALT 170 H Alkaline Phosphatase 1315 H Ammonia Total Protein 7.2 D Albumin 1.8 L 01/13/18 01/13/18 01/13/18 06:16 06:16 08:14 WBC RBC Hgb Hct MCV MCH MCHC RDW Plt Count MPV Prelim Diff (Auto) WBC Differential Seg Neuts % (Manual) Band Neuts % (Manual) Lymphocytes % (Manual) Monocytes % (Manual) Eosinophils % (Manual) Basophils % (Manual) Abs Neuts (Manual) Differential Comment Platelet Estimate Platelet Morphology Target Cells [place] Bodies PT INR APTT Sodium Potassium Chloride Carbon Dioxide Anion Gap BUN Creatinine Estimated GFR POC Glucose 81 Random Glucose Lactic Acid 0.9 Calcium Phosphorus Magnesium Total Bilirubin AST ALT Alkaline Phosphatase Ammonia 24 Total Protein Albumin Imaging: Chest X-Ray 01/10/18 21:09 CONCLUSION: Interval placement of left IJ catheter with 1.5 cm lateral pneumothorax on the left side. Chest CT 01/10/18 22:04 CONCLUSION: 1. No evidence of pneumothorax on the left side. Abdomen/Pelvis CT 01/10/18 23:21 CONCLUSION: 1. There are stable findings of hepatic cirrhosis, pneumobilia and probable portal hypertension with prominence of the portal venous system. 2. Mild, diffuse abdominal ascites and mesenteric edema probably due to passive congestion. Small amount of free fluid in the deep pelvis. 3. Stable bilateral lower pole, nonobstructing renal stones. Largest on the left measures 9.5 mm in diameter. 4. No significant change from prior. Objective Remarks: GENERAL: 47-year-old female resting in bed in no acute distress SKIN: Warm and dry. HEAD: Atraumatic. Normocephalic. EYES: Pupils equal and round. No scleral icterus. No injection or drainage. ENT: No nasal bleeding or discharge. Mucous membranes pink and moist. NECK: Trachea midline. No JVD. CARDIOVASCULAR: Regular rate and rhythm. RESPIRATORY: No accessory muscle use. Clear to auscultation. Breath sounds equal bilaterally. GASTROINTESTINAL: Abdomen soft, non-tender, nondistended. Hepatic and splenic margins not palpable. MUSCULOSKELETAL: Extremities without clubbing, cyanosis, or edema. No obvious deformities. NEUROLOGICAL: Awake and alert. No obvious cranial nerve deficits. Motor grossly within normal limits. Five out of 5 muscle strength in the arms and legs. Normal speech. PSYCHIATRIC: Appropriate mood and affect; insight and judgment normal. Assessment and Plan - Assessment and Plan Plan: NEURO/PSYCH: Awake and alert Hydromorphone 0.5 mg every 4 hours as needed for pain RESP: Incentive spirometry while awake nasal cannula to maintain saturations > 92% CV: s/p Septic shock Elevated LDL Received 3 L normal saline in the emergency department. Monitor HR and BP keep MAP>65mmHg Lactic acid: 0.9 GI: Severe chronic hepatitis cirrhosis Diagnosis of sclerosing Cholangitis Portal hypertension Mild abdominal ascites. Diarrhea - present on admission Chronic pancreatitis on Creon as an outpatient previously Hypoalbuminemia Elevated LFT's For MRCP discussed with GI. US abdomen: diffuse gallbladder wall thickening with edema. No stones. The wall thickening/edema may be related to chronic liver disease. Liver demonstrates imaging features characteristic of cirrhosis. No focal lesion is seen. Hx sclerosing cholangitis (pt states secondary to mass from NHL from liver biopsy 2013). Liver biopsy or 08/03 revealing severe chronic hepatitis likely drug-induced Currently followed by GI . On ADA diet Status post stent by Dr. Plummer at [facility] 2017 Patient has previously been evaluated by [facility] transplant. Previously on ursodiol 300 mg twice daily FEN/RENAL/: KORY- Resolved Bilateral nephrolithiasis Monitor renal function, I/O's, electrolytes replacement protocol. CT abdomen/pelvis revealed stable findings of hepatic cirrhosis, pneumobilia and probable portal hypertension with prominence of the portal venous system. Mild, diffuse abdominal ascites and mesenteric edema probably due to passive congestion. Small amount of free fluid in the deep pelvis. Stable bilateral lower pole, nonobstructing renal stones. Largest on the left measures 9.5 mm in diameter. ID: Septic shock secondary to gram-negative romeo bacteremia Funguria Currently on piperacillin/tazobactam , Micafungin added today by ID. Dr. Santos. Monitor for signs of infections ( Fever, WBC) Repeat blood cultures 01/12 Blood cultures 2 01/10 Kleb pneumonia Urine cx 01/10: Yeast BC 01/12: NGTD F/u stool for C diff. Multiple prior courses of abx. HEME: Leukocytosis Normocytic anemia History of non-Hodgkin's lymphoma In remission following chemotherapy 2004 Monitor CBC ENDO: Diabetes mellitus Previously on insulin detemir 25 units at night with sliding scale insulin. On detemir 5 units twice daily with sliding scale insulin MSK: PT evaluate and treat PROPH: SCDs for DVT prophylaxis. Heparin 5000 units twice daily sub. Pantoprazole 40 mg p.o. daily for stress ulcer prophylaxis. Will sign off and transfer care to [facility] Full code Level 2
--- NOTE | 2018-01-13 12:13 | US ---
EXAM DATE: 01/13/2018 11:50 AM EDT AGE/SEX: 47 years / Female INDICATIONS: Abdominal pain. CLINICAL DATA: This is the patient's initial encounter. Patient reports that signs and symptoms have been present for 2 days and indicates a pain score of 3/10. MEDICAL/SURGICAL HISTORY: Diabetes. Non-Hodgkin's lymphoma. Hepatomegaly. Kidney stone. History of chemotherapy. Non-alcoholic cirrhosis. Sclerosing cholangitis. Splenectomy. Liver biopsy. COMPARISON: [facility] [place]EL[place]/O CONTRAST, 01/11/2018. . MEASUREMENTS: Liver:__ 17.9 cm. Common Bile Duct:__ 5mm. Right Kidney:__ 12.7 x 6.4 x 6.0 cm. FINDINGS: Liver: The liver demonstrates mildly heterogeneous coarsened echotexture with nodular contour. No foc al liver lesion is identified. Portal Vein: Hepatopedal flow seen in portal vein. Common Duct: No intraluminal mass or stone visualized. Gallbladder: Gallbladder demonstrates severe wall thickening and edema. Pancreas: The visualized portions are within normal limits Right Kidney: Normal echotexture and cortical thickness. No mass or hydronephrosis. The renal stones documented on recent CT are not appreciated. Other: There is trace perihepatic free fluid. A right pleural effusion is present. CONCLUSION: 1. Abnormal diffuse gallbladder wall thickening with edema. No stones are visualized and sonographic Raygoza sign is negative suggesting against acute inflammation. The wall thickening/edema may be rela scott to chronic liver disease. 2. Liver demonstrates imaging features characteristic of cirrhosis. No focal lesion is seen. 3. Trace perihepatic free fluid/ascites and right pleural effusion. Electronically signed by: Mele Yoo MD 01/13/2018 12:12 PM EDT
--- NOTE | 2018-01-13 12:57 | P.PNGI ---
Subjective Interval history: Patient sitting on side of the bed getting ready to eat a regular breakfast appears hungry denies any nausea or vomiting states some abdominal distention and some generalized soreness along with some right upper quadrant pressure. <Lola Levin - Last Filed: 01/13/18 12:51> Physical Exam Vital signs: Vital Signs 01/12/18 14:00 01/12/18 15:50 01/12/18 16:00 Temperature 98 F Pulse Rate 87 85 Respiratory Rate 16 16 Blood Pressure 117/66 Pulse Oximetry 99 01/12/18 18:00 01/12/18 18:07 01/12/18 20:00 Temperature 98.3 F Pulse Rate 95 H 93 H Respiratory Rate 16 22 Blood Pressure 113/71 Pulse Oximetry 98 01/12/18 20:30 01/12/18 22:00 01/13/18 00:00 Temperature 98.5 F Pulse Rate 103 H 85 Respiratory Rate 14 Blood Pressure 110/74 Pulse Oximetry 98 95 01/13/18 02:00 01/13/18 04:00 01/13/18 06:00 Temperature 98.4 F Pulse Rate 97 H 86 87 Respiratory Rate 12 Blood Pressure 110/71 Pulse Oximetry 97 01/13/18 08:00 01/13/18 09:11 01/13/18 10:00 Temperature 98.4 F Pulse Rate 88 88 Respiratory Rate 12 Blood Pressure 109/66 Pulse Oximetry 94 L 97 01/13/18 12:00 Temperature 99.1 F Pulse Rate 96 H Respiratory Rate 17 Blood Pressure 138/88 Pulse Oximetry 96 Intake & Output 01/12/18 01/13/18 01/13/18 18:59 06:59 18:59 Intake Total 1900 / 1900 1380 / 1380 50 / 50 Output Total 750 / 750 700 / 700 Balance 1150 / 1150 680 / 680 50 / 50 Weight 56 kg Intake: IV 1300 / 1300 900 / 900 50 / 50 NS Inj 1,000 ML @ 84 mls/hr IV. 1000 / 1000 850 / 850 CONT .[id number] DESTINI Rx#:[id number] Zosyn 3.375 GM Premix 50 ML @ 100 / 100 50 / 50 50 / 50 100 mls/hr IV.SIG Q6H DESTINI Rx#: [id number] KCl 40 mEq Premix Inj 40 meq In 200 / 200 100 ml @ 25 mls/hr IV.SIG UNSCH PRN Rx#:[id number] Oral 600 / 600 480 / 480 Output: Urine 250 / 250 Urine Amount (Catheter) 750 / 750 450 / 450 Indwelling Urethral Catheter 750 / 750 450 / 450 Other: Date of Last Bowel Movement 01/10/18 01/10/18 01/10/18 # Bowel Movements 0 - Constitutional mild distress, thin, cachectic (Round abdomen) - Routine HEENT Exam Head: Present: normocephalic ENT: Present: mucous membranes moist - Routine Respiratory Exam Present: accessory muscle use (Mild shortness of breath, low volumes) - Routine Abdominal Exam Present: soft (Soft bowel sounds), distended (Some right upper quadrant pressure and distention generalized abdominal soreness) - Routine Neurological Exam Present: alert (Answering simple questions and simple conversation) - Urinary Catheter Management Indwelling Urethral Catheter Cath placed during this visit: yes, but has since been removed by the nurse Reason for continuing: Decision to DC catheter Insertion date: 01/10/18 Insertion time: 23:30 Removal date: 01/12/18 Removal time: 23:00 <Lola Levin - Last Filed: 01/13/18 12:51> Vital signs: Vital Signs 01/12/18 18:00 01/12/18 18:07 01/12/18 20:00 Temperature 98.3 F Pulse Rate 95 H 93 H Respiratory Rate 16 22 Blood Pressure 113/71 Pulse Oximetry 98 01/12/18 20:30 01/12/18 22:00 01/13/18 00:00 Temperature 98.5 F Pulse Rate 103 H 85 Respiratory Rate 14 Blood Pressure 110/74 Pulse Oximetry 98 95 01/13/18 02:00 01/13/18 04:00 01/13/18 06:00 Temperature 98.4 F Pulse Rate 97 H 86 87 Respiratory Rate 12 Blood Pressure 110/71 Pulse Oximetry 97 01/13/18 08:00 01/13/18 09:11 01/13/18 10:00 Temperature 98.4 F Pulse Rate 88 88 Respiratory Rate 12 Blood Pressure 109/66 Pulse Oximetry 94 L 97 01/13/18 12:00 01/13/18 14:00 Temperature 99.1 F Pulse Rate 96 H 87 Respiratory Rate 17 Blood Pressure 138/88 Pulse Oximetry 96 Intake & Output 08/01/13/18 01/13/18 18:59 06:59 18:59 Intake Total 1900 / 1900 1380 / 1380 200 / 200 Output Total 750 / 750 700 / 700 Balance 1150 / 1150 680 / 680 200 / 200 Weight 56 kg Intake: IV 1300 / 1300 900 / 900 200 / 200 NS Inj 1,000 ML @ 84 mls/hr IV. 1000 / 1000 850 / 850 CONT .[id number] DESTINI Rx#:[id number] Mycamine Inj 100 MG In NS Inj 100 / 100 100 ML @ 100 mls/hr IV.SIG Q24H DESTINI Rx#:[id number] Zosyn 3.375 GM Premix 50 ML @ 100 / 100 50 / 50 100 / 100 100 mls/hr IV.SIG Q6H DESTINI Rx#: [id number] KCl 40 mEq Premix Inj 40 meq In 200 / 200 100 ml @ 25 mls/hr IV.SIG UNSCH PRN Rx#:[id number] Oral 600 / 600 480 / 480 Output: Urine 250 / 250 Urine Amount (Catheter) 750 / 750 450 / 450 Indwelling Urethral Catheter 750 / 750 450 / 450 Other: Date of Last Bowel Movement 01/10/18 01/10/18 01/10/18 # Bowel Movements 0 - Urinary Catheter Management Indwelling Urethral Catheter Cath placed during this visit: no <Madison Jarvis - Last Filed: 01/13/18 16:03> Results - Labs CBC & Chem 7: 01/13/18 06:16 01/13/18 06:16 Laboratory Results - last 24 hr 01/12/18 01/12/18 01/12/18 16:20 20:26 21:20 WBC RBC Hgb Hct MCV MCH MCHC RDW Plt Count MPV Prelim Diff (Auto) WBC Differential Seg Neuts % (Manual) Band Neuts % (Manual) Lymphocytes % (Manual) Monocytes % (Manual) Eosinophils % (Manual) Basophils % (Manual) Abs Neuts (Manual) Differential Comment Platelet Estimate Platelet Morphology Target Cells Kelly-Lavelle Bodies PT INR APTT Sodium Cancelled Potassium Cancelled Chloride Cancelled Carbon Dioxide Cancelled Anion Gap Cancelled BUN Cancelled Creatinine Cancelled Estimated GFR Cancelled POC Glucose 132 H 273 H Random Glucose Cancelled Lactic Acid Calcium Cancelled Phosphorus Magnesium Total Bilirubin AST ALT Alkaline Phosphatase Ammonia Total Protein Albumin 01/13/18 01/13/18 01/13/18 00:45 03:07 06:16 WBC 12.6 H RBC 4.18 Hgb 12.5 D Hct 37.6 MCV 90.1 MCH 30.0 MCHC 33.3 RDW 16.2 Plt Count 196 MPV 12.1 H Prelim Diff (Auto) Manual diff required WBC Differential Manual diff final Seg Neuts % (Manual) 68 Band Neuts % (Manual) 8 H Lymphocytes % (Manual) 19 Monocytes % (Manual) 3 Eosinophils % (Manual) 1 Basophils % (Manual) 1 Abs Neuts (Manual) 9.6 H Differential Comment . Platelet Estimate Normal Platelet Morphology Enlarged H Target Cells 2+ H Kelly-Lavelle Bodies Present H PT INR APTT Sodium Potassium Chloride Carbon Dioxide Anion Gap BUN Creatinine Estimated GFR POC Glucose 235 H 135 H Random Glucose Lactic Acid Calcium Phosphorus Magnesium Total Bilirubin AST ALT Alkaline Phosphatase Ammonia Total Protein Albumin 01/13/18 01/13/18 01/13/18 06:16 06:16 06:16 WBC RBC Hgb Hct MCV MCH MCHC RDW Plt Count MPV Prelim Diff (Auto) WBC Differential Seg Neuts % (Manual) Band Neuts % (Manual) Lymphocytes % (Manual) Monocytes % (Manual) Eosinophils % (Manual) Basophils % (Manual) Abs Neuts (Manual) Differential Comment Platelet Estimate Platelet Morphology Target Cells Kelly-Lavelle Bodies PT 10.7 INR 1.1 APTT 26.5 Sodium 141 Potassium 3.8 Chloride 106 Carbon Dioxide 23.5 Anion Gap 12 BUN 8 Creatinine 0.50 Estimated GFR Greater than 89 POC Glucose Random Glucose 76 Lactic Acid 0.9 Calcium 8.6 D Phosphorus 2.4 L Magnesium 1.9 Total Bilirubin 5.8 H AST 225 H ALT 170 H Alkaline Phosphatase 1315 H Ammonia Total Protein 7.2 D Albumin 1.8 L 01/13/18 01/13/18 01/13/18 06:16 08:14 12:00 WBC RBC Hgb Hct MCV MCH MCHC RDW Plt Count MPV Prelim Diff (Auto) WBC Differential Seg Neuts % (Manual) Band Neuts % (Manual) Lymphocytes % (Manual) Monocytes % (Manual) Eosinophils % (Manual) Basophils % (Manual) Abs Neuts (Manual) Differential Comment Platelet Estimate Platelet Morphology Target Cells Kelly-Lavelle Bodies PT INR APTT Sodium Potassium Chloride Carbon Dioxide Anion Gap BUN Creatinine Estimated GFR POC Glucose 81 96 Random Glucose Lactic Acid Calcium Phosphorus Magnesium Total Bilirubin AST ALT Alkaline Phosphatase Ammonia 24 Total Protein Albumin Microbiology 01/12/18 21:48 Blood - Peripheral Aerobic Blood Culture - Preliminary No growth in 1 day 01/12/18 21:48 Blood - Peripheral Anaerobic Blood Culture - Preliminary No growth in 1 day 01/12/18 21:20 Blood - Peripheral Aerobic Blood Culture - Preliminary No growth in 1 day 01/12/18 21:20 Blood - Peripheral Anaerobic Blood Culture - Final QNS - See aerobic report. 01/10/18 19:45 Blood - Peripheral Aerobic Blood Culture - Final Klebsiella pneumoniae 01/10/18 19:45 Blood - Peripheral Anaerobic Blood Culture - Final Klebsiella pneumoniae 01/10/18 19:40 Blood - Peripheral Aerobic Blood Culture - Final Klebsiella pneumoniae 01/10/18 19:40 Blood - Peripheral Anaerobic Blood Culture - Final Klebsiella pneumoniae - Imaging Impressions Liver Ultrasound 01/13/18 00:00 CONCLUSION: 1. Abnormal diffuse gallbladder wall thickening with edema. No stones are visualized and sonographic Raygoza sign is negative suggesting against acute inflammation. The wall thickening/edema may be related to chronic liver disease. 2. Liver demonstrates imaging features characteristic of cirrhosis. No focal lesion is seen. 3. Trace perihepatic free fluid/ascites and right pleural effusion. <Lola Levin - Last Filed: 01/13/18 12:51> - Labs CBC & Chem 7: 01/13/18 06:16 01/13/18 06:16 Laboratory Results - last 24 hr 01/12/18 01/12/18 01/12/18 16:20 20:26 21:20 WBC RBC Hgb Hct MCV MCH MCHC RDW Plt Count MPV Prelim Diff (Auto) WBC Differential Seg Neuts % (Manual) Band Neuts % (Manual) Lymphocytes % (Manual) Monocytes % (Manual) Eosinophils % (Manual) Basophils % (Manual) Abs Neuts (Manual) Differential Comment Platelet Estimate Platelet Morphology Target Cells Kelly-Lavelle Bodies PT INR APTT Sodium Cancelled Potassium Cancelled Chloride Cancelled Carbon Dioxide Cancelled Anion Gap Cancelled BUN Cancelled Creatinine Cancelled Estimated GFR Cancelled POC Glucose 132 H 273 H Random Glucose Cancelled Lactic Acid Calcium Cancelled Phosphorus Magnesium Total Bilirubin AST ALT Alkaline Phosphatase Ammonia Total Protein Albumin 01/13/18 01/13/18 01/13/18 00:45 03:07 06:16 WBC 12.6 H RBC 4.18 Hgb 12.5 D Hct 37.6 MCV 90.1 MCH 30.0 MCHC 33.3 RDW 16.2 Plt Count 196 MPV 12.1 H Prelim Diff (Auto) Manual diff required WBC Differential Manual diff final Seg Neuts % (Manual) 68 Band Neuts % (Manual) 8 H Lymphocytes % (Manual) 19 Monocytes % (Manual) 3 Eosinophils % (Manual) 1 Basophils % (Manual) 1 Abs Neuts (Manual) 9.6 H Differential Comment . Platelet Estimate Normal Platelet Morphology Enlarged H Target Cells 2+ H Kelly-Lavelle Bodies Present H PT INR APTT Sodium Potassium Chloride Carbon Dioxide Anion Gap BUN Creatinine Estimated GFR POC Glucose 235 H 135 H Random Glucose Lactic Acid Calcium Phosphorus Magnesium Total Bilirubin AST ALT Alkaline Phosphatase Ammonia Total Protein Albumin 01/13/18 01/13/18 01/13/18 06:16 06:16 06:16 WBC RBC Hgb Hct MCV MCH MCHC RDW Plt Count MPV Prelim Diff (Auto) WBC Differential Seg Neuts % (Manual) Band Neuts % (Manual) Lymphocytes % (Manual) Monocytes % (Manual) Eosinophils % (Manual) Basophils % (Manual) Abs Neuts (Manual) Differential Comment Platelet Estimate Platelet Morphology Target Cells Kelly-Lavelle Bodies PT 10.7 INR 1.1 APTT 26.5 Sodium 141 Potassium 3.8 Chloride 106 Carbon Dioxide 23.5 Anion Gap 12 BUN 8 Creatinine 0.50 Estimated GFR Greater than 89 POC Glucose Random Glucose 76 Lactic Acid 0.9 Calcium 8.6 D Phosphorus 2.4 L Magnesium 1.9 Total Bilirubin 5.8 H AST 225 H ALT 170 H Alkaline Phosphatase 1315 H Ammonia Total Protein 7.2 D Albumin 1.8 L 01/13/18 01/13/18 01/13/18 06:16 08:14 12:00 WBC RBC Hgb Hct MCV MCH MCHC RDW Plt Count MPV Prelim Diff (Auto) WBC Differential Seg Neuts % (Manual) Band Neuts % (Manual) Lymphocytes % (Manual) Monocytes % (Manual) Eosinophils % (Manual) Basophils % (Manual) Abs Neuts (Manual) Differential Comment Platelet Estimate Platelet Morphology Target Cells Kelly-Lavelle Bodies PT INR APTT Sodium Potassium Chloride Carbon Dioxide Anion Gap BUN Creatinine Estimated GFR POC Glucose 81 96 Random Glucose Lactic Acid Calcium Phosphorus Magnesium Total Bilirubin AST ALT Alkaline Phosphatase Ammonia 24 Total Protein Albumin Microbiology 01/10/18 23:57 Catheterized Urine Urine Culture - Final Luda glabrata 01/12/18 21:48 Blood - Peripheral Aerobic Blood Culture - Preliminary No growth in 1 day 01/12/18 21:48 Blood - Peripheral Anaerobic Blood Culture - Preliminary No growth in 1 day 01/12/18 21:20 Blood - Peripheral Aerobic Blood Culture - Preliminary No growth in 1 day 01/12/18 21:20 Blood - Peripheral Anaerobic Blood Culture - Final QNS - See aerobic report. 01/10/18 19:45 Blood - Peripheral Aerobic Blood Culture - Final Klebsiella pneumoniae 01/10/18 19:45 Blood - Peripheral Anaerobic Blood Culture - Final Klebsiella pneumoniae 01/10/18 19:40 Blood - Peripheral Aerobic Blood Culture - Final Klebsiella pneumoniae 01/10/18 19:40 Blood - Peripheral Anaerobic Blood Culture - Final Klebsiella pneumoniae - Imaging Impressions Liver Ultrasound 01/13/18 00:00 CONCLUSION: 1. Abnormal diffuse gallbladder wall thickening with edema. No stones are visualized and sonographic Raygoza sign is negative suggesting against acute inflammation. The wall thickening/edema may be related to chronic liver disease. 2. Liver demonstrates imaging features characteristic of cirrhosis. No focal lesion is seen. 3. Trace perihepatic free fluid/ascites and right pleural effusion. <Madison Jarvis - Last Filed: 01/13/18 16:03> Assessment and Plan - Plan 01/12/2018 Patient presenting with fever is noted to have leukocytosis gram-negative rods in her blood suggestive of sepsis she does have a history of primary sclerosing cholangitis PSC and does have cirrhosis or liver function tests are above their usual baseline and her chemistry profile reveals severely elevated blood sugar with probable DKA and her albumin is very low suggestive of malnutrition At this point the patient appears to be improving her alk phos has come down significantly and it is more like her baseline at this point Agree with current supportive care Continue with antibiotics Monitor labs Nutrition needs to be addressed sometime soon we will defer to admitting service consider supplements 01/13/2018, patient has been n.p.o. this morning pending liver ultrasound but is now eating a regular breakfast appears to have good appetite and denies any nausea or vomiting does note some generalized abdominal soreness and some right upper quadrant pressure but overall is feeling better 01/13/2018 liver ultrasound this morning shows findings of abnormal diffuse gallbladder wall thickening with edema but no stones are visualized Raygoza sign is negative suggesting any acute inflammation. The gallbladder wall thickening may be related to the chronic liver disease characteristics of cirrhosis. Trace of perihepatic free fluid ascites and right pleural effusion Patient appears to have symptoms managed at this time. Current labs show hemoglobin 12.5 alkaline phosphatase initially 1472 now 1315. AST 225 ALT 170. Continues treatment for liver cirrhosis. And monitoring of symptoms Plan Diet per attending regular food Monitor labs with special attention to LFTs, bilirubin and hemoglobin Protonix Zosyn per attending Anti-emetics as needed Pain management per attending Supportive care Patient was seen per myself and Dr. Jarvis, note was written on his behalf <Lola Levin - Last Filed: 01/13/18 12:51> - Plan Seen and examined with PASTRY COOK, feeling better but still with abdominal pain. LFTs improving. Given previous h/o strictures in CBD and possible recent cholangitis MRCP ordered. Discussed with Izzy Euceda/Syeda. The exam, history, and the medical decision-making described in the above note were completed with the assistance of the mid-level provider. I reviewed and agree with the findings presented. I attest that I had a [id number] encounter with the patient on the same day, and personally performed and documented my assessment and findings in the medical record. <Madison Jarvis - Last Filed: 01/13/18 16:03>
--- NOTE | 2018-01-13 13:45 | MB ---
cc: Joseph Santos MD DATE: 01/13/2018 REQUESTING PHYSICIAN: Leonor Del Rio MD REASON FOR CONSULTATION: Gram-negative romeo bacteremia. Funguria. History of peritonitis. Assistance with antibiotic management. HISTORY OF PRESENT ILLNESS: This is a 47-year-old white female who presented to the emergency department with abdominal pain and fever. The patient states that she developed sudden onset of fever that would not go away after 24 hours and she came to the emergency department because she was having abdominal pain and also nausea and vomiting. The patient has a known history of nonalcoholic liver cirrhosis. She had temperature of 102.7 degrees in the emergency department along with elevated heart rate of 130, elevated respiratory rate of 22 and blood pressure of 87/57. White blood cell count was elevated at 19.3 and lactic acid level elevated at 3.6. Blood cultures and urine cultures were obtained. The blood culture has Klebsiella pneumoniae in all 4 bottles. Urine culture has yeast. CT scan of the chest was performed and showed bibasilar atelectasis in the lower lungs. CT scan of the abdomen and pelvis showed findings of hepatic cirrhosis and also diffuse abdominal ascites and small bilateral lower pole nonobstructing renal stones. The patient has a history of biliary stent placed many years ago. Currently, she is sitting up on the side of the bed, eating. She has abdominal pain, which she says is constant on the right side of the abdomen. She denies other symptoms currently. Her temperature has improved and currently it is 99.1 degrees. White blood cell count decreased to 12.6. PAST MEDICAL HISTORY: Diabetes mellitus, kidney stones, non-Hodgkin's lymphoma, history of splenectomy, cirrhosis of the liver. ALLERGIES: FENTANYL, GADOBENIC ACID, GADODIAMIDE, GADOTERIDOL, KETOROLAC, MORPHINE, TRAMADOL GADOLINIUM MRI PRECAUTION. CURRENT MEDICATIONS: Piperacillin/tazobactam, Tish-Colace, potassium, Protonix, sliding scale insulin. SOCIAL HISTORY: Denies tobacco, alcohol or illicit drugs. FAMILY HISTORY: Noncontributory. REVIEW OF SYSTEMS: All systems have been reviewed and are negative, except for abdominal pain. PHYSICAL EXAMINATION: GENERAL: Slender female who is in no acute distress. She is awake and alert and oriented. VITAL SIGNS: Temperature of 99.1, BP 138/88, respirations 18, heart rate 96. HEENT: Head atraumatic. Extraocular movements are grossly intact. Pupils reactive to light. No icterus. Oropharynx moist mucosa. No thrush. No visible lesions. NECK: Supple without adenopathy or swelling. LUNGS: Clear. HEART: Regular S1, S2. No murmurs, rubs or gallops. ABDOMEN: Mildly distended, soft, mild tenderness at the right upper quadrant. RECTAL: Not performed. EXTREMITIES: No clubbing, cyanosis or edema. SKIN: No rash. NEUROLOGIC: No gross focal finding. PSYCHIATRIC: The patient is calm and cooperative. LABORATORY DATA: WBC 12.6, platelets 196, hemoglobin 12.5. Differential includes 8% bands. Creatinine 0.5, BUN 8, sodium 141, estimated GFR 89, AST 225, AST 170, total bilirubin 5.8. Urine culture greater than 100,000 colonies of Luda glabrata. RECOMMENDATIONS: 1. Continue piperacillin/tazobactam for Klebsiella. 2. Add micafungin for Luda glabrata. IMPRESSION: 1. Sepsis due to Klebsiella pneumoniae originating from the biliary system. 2. Cholangitis. 3. Luda urinary tract infection. 4. History of cirrhosis of the liver. The patient appears to be responding to current antibiotics for the bacteremia with temperature improvement and decreased white blood cell count and clinically she appears stable. RECOMMENDATIONS: 1. Continue piperacillin/tazobactam. 2. Add micafungin for Luda glabrata. 3. Follow repeat blood culture. 4. Monitor response to antibiotic treatment. 5. Further recommendations will be made upon followup if necessary. Thank you for this consultation. MD GABBIE Bennett/es , 01:16 PM , 01:30 PM
--- NOTE | 2018-01-13 15:35 | ECHRPT ---
Indication: SHORTNESS OF BREATH CONCLUSIONS Normal left ventricular size. The left ventricular systolic function is mildly reduced with an estimated ejection fraction in the range of 45- 50%. Mild mitral valve regurgitation. There is trace tricuspid valve regurgitation. The estimated pulmonary arterial pressure is 18 mmHg. A right sided pleural effusion is present. BP: / HR: Rhythm: Sinus MEASUREMENTS (Male / Female) Normal Values Technical Quality:Fair 2D ECHO LVOT Diameter 2.1 cm Aortic Root Diameter 3.2 cm M-MODE AV Cusp Separation MM 2.1 cm DOPPLER AV Peak Velocity 105.0 cm/s AV Peak Gradient 4.4 mmHg AV Mean Gradient 2.0 mmHg AV Velocity Time Integral 16.8 cm LVOT Peak Velocity 80.5 cm/s LVOT Peak Gradient 2.6 mmHg LVOT Velocity Time Integral 15.3 cm AV Area Cont Eq vti 3.2 cm AV Area Cont Eq pk 2.7 cm Mitral E Point Velocity 84.4 cm/s Mitral A Point Velocity 90.8 cm/s Mitral E to A Ratio 0.9 LV E' Lateral Velocity 6.6 cm/s Mitral E to LV E' Lateral Ratio 12.7 LV E' Septal Velocity 5.2 cm/s Mitral E to LV E' Septal Ratio 16.3 TR Peak Velocity 145.0 cm/s TR Peak Gradient 8.4 mmHg Right Atrial Pressure 10.0 mmHg Pulmonary Artery Systolic Pressu 18.4 mmHg Right Ventricular Systolic Press 18.4 mmHg PV Peak Velocity 63.2 cm/s PV Peak Gradient 1.6 mmHg FINDINGS LEFT VENTRICLE Normal left ventricular size. The left ventricular systolic function is mildly reduced with an estimated ejection fraction in the range of 45- 50%. RIGHT VENTRICLE Normal right ventricular size and systolic function. LEFT ATRIUM The left atrial size is normal. RIGHT ATRIUM The right atrial size is normal. ATRIAL SEPTUM No atrial level shunt is demonstrated by color flow Doppler interrogation. AORTA The aortic root and proximal ascending aorta are normal in size on limited imaging. MITRAL VALVE Mild mitral valve regurgitation. AORTIC VALVE Trileaflet aortic valve. No aortic valve stenosis or regurgitation. TRICUSPID VALVE There is trace tricuspid valve regurgitation. The estimated pulmonary arterial pressure is 18.4 mmHg. PULMONARY VALVE No pulmonary valve regurgitation or stenosis. VESSELS The inferior vena cava is normal in size. PERICARDIUM No pericardial effusion. A right sided pleural effusion is present. Santiago Forbes MD, FACC (Electronically Signed) Final Date:13 January 2018 15:34
--- NOTE | 2018-01-13 20:44 | MR ---
EXAM DATE: 01/13/2018 8:26 PM EDT AGE/SEX: 47 years / Female INDICATIONS: Abdominal pain. CLINICAL DATA: This is the patient's subsequent encounter. Patient reports that signs and symptoms h ave been present for 1 day and indicates a pain score of 6/10. MEDICAL/SURGICAL HISTORY: Diabetes mellitus type II. Non-hodgkins lymphoma. Splenectomy. Bilia ry stent insertion and removal. COMPARISON: [facility], MRCP W/O CONTRAST, 08/02/2017. [facility], CT ABDOMEN & PELVIS W/O CONTRAST, 01/11/2018 . . TECHNIQUE: Multiplanar, multisequence images of the abdomen were obtained without contrast including dedicated cholangiographic images. FINDINGS: Liver: The liver is abnormal with diffuse hypertrophy of the left lobe and caudate. There is atrophy of the right lobe. This is likely secondary to cirrhosis. There is some heterogeneity to the liver. There is a 0.7 cm cyst seen. Intrahepatic Bile Ducts: There is dilatation of the biliary ducts. There are some scattered areas of low signal seen within the liver which could represent pneumobilia. Common Bile Duct: There is a 1 cm filling defect seen in the mid common duct. This is best seen on t he coronal MRCP images. Gallbladder: The gallbladder is normal with no evidence for cholelithiasis, gallbladder wall thicken ing, or pericholecystic fluid. Pancreas: The pancreas appears normal in signal with no focal parenchymal abnormalities. The pancrea tic duct is normal in caliber with no filling defects, or obstructing lesions identified. The patient is status post splenectomy. There are bilateral moderate pleural effusions. There is mild ascites seen around the liver. There is edema seen throughout the subcutaneous fat. The kidneys appe ar large measuring 20.7 cm on the right and 13.8 cm on the left. CONCLUSION: 1. Cirrhosis. 2. Areas of low signal seen in the intrahepatic biliary ducts likely related to pneumobilia. There i s a 1 cm filling defect within the common bile duct. This could represent a stone or a focal area of pneumobilia. There is intrahepatic biliary duct dilatation. The gallbladder is nondistended. 3. Bilateral moderate pleural effusions. 4. Mild ascites. 5. Edema in the subcutaneous tissues which could represent anasarca. Electronically signed by: Mele Cuba MD 01/13/2018 8:43 PM EDT
[2018-01-14] MEDS: HYDROmorphone PF Inj 2 MG/ML Vial IV.PUSH PRN ×5 (01:53→20:28)
[2018-01-14] MEDS: Piperacil/Tazo 3.375 GM Premix 50 ML IV.SIG SCH ×4 (01:58→20:26)
[2018-01-14] MEDS: Insulin NovoLIN Regular Correctional Sugar Inj SQ SCH ×5 (03:27→20:28)
[2018-01-14] MEDS: Chlorhexidine Gluconate 2% 1 Pack (2 Cloths) TOPICAL SCH (04:00)
[2018-01-14 06:03] LABS: Hematocrit 34.2 % (35.0-46.0); Hemoglobin 11.3 gm/dL (11.6-15.3); Mean Corpuscular HGB Conc 32.9 % (32.0-36.0); Mean Corpuscular Hemoglobin 30.1 pg (27.0-34.0); Mean Corpuscular Volume 91.5 fL (80.0-100.0); Mean Platelet Volume 11.9 fL (7.0-11.0); Platelet Count 186 th/mm3 (150-450); Red Blood Count 3.74 mil/mm3 (4.00-5.30); Red Cell Distribution Width 16.2 % (11.6-17.2)
[2018-01-14 06:46] LABS: Alanine Aminotransferase 114 U/L (10-53); Albumin 1.4 g/dL (3.4-5.0); Alkaline Phosphatase 1131 U/L (45-117); Anion Gap 11 meq/L (5-15); Aspartate Aminotransferase 142 U/L (15-37); Blood Urea Nitrogen 7 mg/dL (7-18); Calcium 7.6 mg/dL (8.5-10.1); Carbon Dioxide 23.5 meq/L (21.0-32.0); Chloride 106 meq/L (98-107); Glomerular Filtration Rate Greater Than 89 mL/min (>89); Glucose,Random 125 mg/dL (74-106); Magnesium 1.7 mg/dL (1.5-2.5); Phosphorus 2.6 mg/dL (2.5-4.9); Potassium 3.3 meq/L (3.5-5.1); Sodium 140 meq/L (136-145); Total Protein 5.6 g/dL (6.4-8.2)
[2018-01-14 08:05] LABS: Lymphocytes 13 % (9-44); Monocytes 6 % (0-8); Platelet Estimate Normal (Normal); Tallied Nucleated RBC 1 (0-0); Target Cells 2+
[2018-01-14] MEDS: Insulin Detemir Inj 1,000 UNIT/10 ML Vial SQ SCH (08:27)
[2018-01-14] MEDS: Senna/Docusate Sodium 8.6/50 MG Tablet PO SCH ×2 (08:27→20:27)
[2018-01-14] MEDS: Heparin - SQ 10,000 UNITS/ML Vial SQ SCH ×2 (08:27→20:26)
[2018-01-14] MEDS: Potassium Chlor 20 mEq Premix 20 MEQ/100 ML PIGGYBACK IV.SIG PRN ×2 (09:03→12:41)
--- NOTE | 2018-01-14 09:23 | P.PNIM ---
Subjective Interval history: f/u; bacteremia/ elevated LFT's in no acute distress. looks comfortabel. however still has some pain and tenderness over the RUQ. no fever, nausea or vomiting. Physical Exam Vital signs: Vital Signs 01/13/18 10:00 01/13/18 12:00 01/13/18 14:00 Temperature 99.1 F Pulse Rate 88 96 H 87 Respiratory Rate 17 Blood Pressure 138/88 Pulse Oximetry 96 01/13/18 16:00 01/13/18 18:00 01/13/18 20:00 Temperature 99.3 F 98.6 F Pulse Rate 91 H 87 104 H Respiratory Rate 24 18 Blood Pressure 125/76 128/80 Pulse Oximetry 97 97 01/13/18 22:00 01/14/18 00:00 01/14/18 02:00 Temperature 98.7 F Pulse Rate 100 H 92 H 83 Respiratory Rate 16 Blood Pressure 118/83 Pulse Oximetry 99 01/14/18 04:00 01/14/18 06:00 01/14/18 08:00 Temperature 98.5 F Pulse Rate 89 71 Respiratory Rate 16 Blood Pressure 123/91 H Pulse Oximetry 98 96 Intake & Output 01/13/18 01/14/18 01/14/18 18:59 06:59 18:59 Intake Total 830 / 830 580 / 580 50 / 50 Output Total 900 / 900 375 / 375 Balance -70 / -70 205 / 205 50 / 50 Weight 56.4 kg Intake: IV 350 / 350 100 / 100 50 / 50 NS Inj 1,000 ML @ 84 mls/hr IV. 150 / 150 CONT .[id number] DESTINI Rx#:[id number] Mycamine Inj 100 MG In NS Inj 100 / 100 100 ML @ 100 mls/hr IV.SIG Q24H DESTINI Rx#:[id number] Zosyn 3.375 GM Premix 50 ML @ 100 / 100 100 / 100 50 / 50 100 mls/hr IV.SIG Q6H DESTINI Rx#: [id number] Oral 480 / 480 480 / 480 Output: Urine 900 / 900 375 / 375 Other: Date of Last Bowel Movement 01/10/18 01/10/18 01/10/18 # Bowel Movements 0 0 - Constitutional no acute distress - Routine Respiratory Exam Present: CTA bilaterally - Routine Cardiovascular Exam Present: RRR - Routine Abdominal Exam Present: soft, tenderness Comments: RUQ tenderness. - Routine Extremities Exam Comments: no pedal edema. - Routine Neurological Exam Present: alert, oriented X3 - Urinary Catheter Management Indwelling Urethral Catheter Cath placed during this visit: yes, but has since been removed by the nurse Reason for continuing: Decision to DC catheter Insertion date: 01/10/18 Insertion time: 23:30 Removal date: 01/12/18 Removal time: 23:00 Results - Labs CBC & Chem 7: 01/14/18 05:07 01/14/18 05:07 Laboratory Results - last 24 hr 01/13/18 01/13/18 01/13/18 12:00 16:54 20:43 WBC RBC Hgb Hct MCV MCH MCHC RDW Plt Count MPV Prelim Diff (Auto) WBC Differential Seg Neuts % (Manual) Band Neuts % (Manual) Lymphocytes % (Manual) Monocytes % (Manual) Abs Neuts (Manual) Nucleated RBCs/100 WBC Differential Comment Platelet Estimate Platelet Morphology Target Cells Sodium Potassium Chloride Carbon Dioxide Anion Gap BUN Creatinine Estimated GFR POC Glucose 96 212 H 126 H Random Glucose Calcium Phosphorus Magnesium Total Bilirubin AST ALT Alkaline Phosphatase Total Protein Albumin 01/13/18 01/14/18 01/14/18 23:19 03:20 05:07 WBC 8.0 RBC 3.74 L Hgb 11.3 L Hct 34.2 L MCV 91.5 MCH 30.1 MCHC 32.9 RDW 16.2 Plt Count 186 MPV 11.9 H Prelim Diff (Auto) Manual diff required WBC Differential Manual diff final Seg Neuts % (Manual) 72 H Band Neuts % (Manual) 9 H Lymphocytes % (Manual) 13 Monocytes % (Manual) 6 Abs Neuts (Manual) 6.5 Nucleated RBCs/100 WBC 1 H Differential Comment . Platelet Estimate Normal Platelet Morphology Enlarged H Target Cells 2+ H Sodium Potassium Chloride Carbon Dioxide Anion Gap BUN Creatinine Estimated GFR POC Glucose 197 H 162 H Random Glucose Calcium Phosphorus Magnesium Total Bilirubin AST ALT Alkaline Phosphatase Total Protein Albumin 01/14/18 01/14/18 01/14/18 05:07 07:59 08:11 WBC RBC Hgb Hct MCV MCH MCHC RDW Plt Count MPV Prelim Diff (Auto) WBC Differential Seg Neuts % (Manual) Band Neuts % (Manual) Lymphocytes % (Manual) Monocytes % (Manual) Abs Neuts (Manual) Nucleated RBCs/100 WBC Differential Comment Platelet Estimate Platelet Morphology Target Cells Sodium 140 Potassium 3.3 L Chloride 106 Carbon Dioxide 23.5 Anion Gap 11 BUN 7 Creatinine 0.42 L Estimated GFR Greater than 89 POC Glucose 66 L 66 L Random Glucose 125 H Calcium 7.6 L D Phosphorus 2.6 Magnesium 1.7 Total Bilirubin 4.8 H AST 142 H ALT 114 H Alkaline Phosphatase 1131 H Total Protein 5.6 L D Albumin 1.4 L 01/14/18 01/14/18 08:18 08:33 WBC RBC Hgb Hct MCV MCH MCHC RDW Plt Count MPV Prelim Diff (Auto) WBC Differential Seg Neuts % (Manual) Band Neuts % (Manual) Lymphocytes % (Manual) Monocytes % (Manual) Abs Neuts (Manual) Nucleated RBCs/100 WBC Differential Comment Platelet Estimate Platelet Morphology Target Cells Sodium Potassium Chloride Carbon Dioxide Anion Gap BUN Creatinine Estimated GFR POC Glucose 64 L 205 H Random Glucose Calcium Phosphorus Magnesium Total Bilirubin AST ALT Alkaline Phosphatase Total Protein Albumin Microbiology 01/10/18 23:57 Catheterized Urine Urine Culture - Final Luda glabrata 01/12/18 21:48 Blood - Peripheral Aerobic Blood Culture - Preliminary No growth in 1 day 01/12/18 21:48 Blood - Peripheral Anaerobic Blood Culture - Preliminary No growth in 1 day 01/12/18 21:20 Blood - Peripheral Aerobic Blood Culture - Preliminary No growth in 1 day 01/12/18 21:20 Blood - Peripheral Anaerobic Blood Culture - Final QNS - See aerobic report. 01/10/18 19:45 Blood - Peripheral Aerobic Blood Culture - Final Klebsiella pneumoniae 01/10/18 19:45 Blood - Peripheral Anaerobic Blood Culture - Final Klebsiella pneumoniae 01/10/18 19:40 Blood - Peripheral Aerobic Blood Culture - Final Klebsiella pneumoniae 01/10/18 19:40 Blood - Peripheral Anaerobic Blood Culture - Final Klebsiella pneumoniae - Imaging Impressions Cholangiopancreatography MRI 01/13/18 00:00 CONCLUSION: 1. Cirrhosis. 2. Areas of low signal seen in the intrahepatic biliary ducts likely related to pneumobilia. There is a 1 cm filling defect within the common bile duct. This could represent a stone or a focal area of pneumobilia. There is intrahepatic biliary duct dilatation. The gallbladder is nondistended. 3. Bilateral moderate pleural effusions. 4. Mild ascites. 5. Edema in the subcutaneous tissues which could represent anasarca. Liver Ultrasound 01/13/18 00:00 CONCLUSION: 1. Abnormal diffuse gallbladder wall thickening with edema. No stones are visualized and sonographic Raygoza sign is negative suggesting against acute inflammation. The wall thickening/edema may be related to chronic liver disease. 2. Liver demonstrates imaging features characteristic of cirrhosis. No focal lesion is seen. 3. Trace perihepatic free fluid/ascites and right pleural effusion. Assessment and Plan - Plan s/p Septic shock-resolved. 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 Diarrhea - present on admission Chronic pancreatitis on Creon as an outpatient previously Hypoalbuminemia Elevated LFT's US abdomen: diffuse gallbladder wall thickening with edema. No stones. The wall thickening/edema may be related to chronic liver disease. Liver demonstrates imaging features characteristic of cirrhosis. No focal lesion is seen. MRCP result reviewed. Hx sclerosing cholangitis (pt states secondary to mass from NHL from liver biopsy 2013). Liver biopsy or 08/03 revealing severe chronic hepatitis likely drug-induced Currently followed by GI . On ADA diet Status post stent by Dr. Plummer at [facility] 2017 Patient has previously been evaluated by [facility] transplant. Previously on ursodiol 300 mg twice daily awaiting GI f/u and recommendations. KORY- Resolved Bilateral nephrolithiasis hypokalemia Monitor renal function, I/O's, electrolytes . CT abdomen/pelvis revealed stable findings of hepatic cirrhosis, pneumobilia and probable portal hypertension with prominence of the portal venous system. Mild, diffuse abdominal ascites and mesenteric edema probably due to passive congestion. Small amount of free fluid in the deep pelvis. Stable bilateral lower pole, nonobstructing renal stones. Largest on the left measures 9.5 mm in diameter. Leukocytosis- improved. Normocytic anemia History of non-Hodgkin's lymphoma In remission following chemotherapy 2004 Monitor CBC Diabetes mellitus Hypoglycemic episode hold levemir for now- continue with sliding scale insulin MSK: PT evaluate and treat PROPH: SCDs for DVT prophylaxis. Heparin 5000 units twice daily sub. transfer to telemetry.
--- NOTE | 2018-01-14 15:58 | P.PNID ---
Subjective Remarks: Patient feels okay. States that she gets pain in the abdomen off and on. Denies chills. Afebrile. Repeat blood culture has no growth. This is a 47-year-old white female who presented to the emergency department with abdominal pain and fever. The patient states that she developed sudden onset of fever that would not go away after 24 hours and she came to the emergency department because she was having abdominal pain and also nausea and vomiting. The patient has a known history of nonalcoholic liver cirrhosis. She had temperature of 102.7 degrees in the emergency department along with elevated heart rate of 130, elevated respiratory rate of 22 and blood pressure of 87/57. White blood cell count was elevated at 19.3 and lactic acid level elevated at 3.6. Past Medical History: PAST MEDICAL HISTORY: Diabetes mellitus, kidney stones, non-Hodgkin's lymphoma, history of splenectomy, cirrhosis of the liver. Allergies/Adverse Reactions: Allergies fentanyl Allergy (Severe, Verified 01/10/18 18:09) SOB gadobenic acid Allergy (Severe, Verified 01/10/18 18:09) BREATHING PROBLEMS, N/V,CHILLS gadodiamide Allergy (Severe, Verified 01/10/18 18:09) BREATHING PROBLEMS, N/V,CHILLS gadoteridol Allergy (Severe, Verified 01/10/18 18:09) BREATHING PROBLEMS, N/V,CHILLS ketorolac Allergy (Severe, Verified 01/10/18 18:09) Shortness of Breath morphine Allergy (Severe, Verified 01/10/18 18:09) SOB tramadol Allergy (Mild, Verified 01/10/18 18:09) Shortness of Breath Gadolinium-Containing Contrast Medi Adverse Reaction (Severe, Verified 01/10/18 18:09) nauseas /vomiting MRI PRECAUTION Adverse Reaction (Severe, Uncoded 01/10/18 18:09) NAUSEA; PER PATIENT IT IS A GADOLINIUM ALLERGY KMD 11/25/12 Objective Vital Signs 01/13/18 16:00 01/13/18 18:00 01/13/18 20:00 Temperature 99.3 F 98.6 F Pulse Rate 91 H 87 104 H Respiratory Rate 24 18 Blood Pressure 125/76 128/80 Pulse Oximetry 97 97 01/13/18 22:00 01/14/18 00:00 01/14/18 02:00 Temperature 98.7 F Pulse Rate 100 H 92 H 83 Respiratory Rate 16 Blood Pressure 118/83 Pulse Oximetry 99 01/14/18 04:00 01/14/18 06:00 01/14/18 08:00 Temperature 98.5 F 98.1 F Pulse Rate 89 71 89 Respiratory Rate 16 12 Blood Pressure 123/91 H 113/68 Pulse Oximetry 98 96 01/14/18 10:00 01/14/18 12:00 01/14/18 14:00 Temperature 98.8 F Pulse Rate 79 72 94 H Respiratory Rate 12 Blood Pressure 113/75 Pulse Oximetry 95 Intake & Output 01/13/18 01/14/18 01/14/18 18:59 06:59 18:59 Intake Total 830 / 830 580 / 580 390 / 390 Output Total 900 / 900 375 / 375 1100 / 1100 Balance -70 / -70 205 / 205 -710 / -710 Weight 56.4 kg Intake: IV 350 / 350 100 / 100 150 / 150 NS Inj 1,000 ML @ 84 mls/hr IV. 150 / 150 CONT .[id number] DESTINI Rx#:[id number] Mycamine Inj 100 MG In NS Inj 100 / 100 100 ML @ 100 mls/hr IV.SIG Q24H DESTINI Rx#:[id number] Zosyn 3.375 GM Premix 50 ML @ 100 / 100 100 / 100 50 / 50 100 mls/hr IV.SIG Q6H DESTINI Rx#: [id number] KCl 20 mEq Premix Inj 20 meq In 100 / 100 100 ml @ 50 mls/hr IV.SIG Q2H PRN Rx#:[id number] Oral 480 / 480 480 / 480 240 / 240 Output: Urine 900 / 900 375 / 375 1100 / 1100 Other: Date of Last Bowel Movement 01/10/18 01/10/18 01/10/18 # Bowel Movements 0 0 01/12/18 21:48 Blood - Peripheral Aerobic Blood Culture - Preliminary No growth in 2 days 01/12/18 21:48 Blood - Peripheral Anaerobic Blood Culture - Preliminary No growth in 2 days 01/12/18 21:20 Blood - Peripheral Aerobic Blood Culture - Preliminary No growth in 2 days 01/12/18 21:20 Blood - Peripheral Anaerobic Blood Culture - Final QNS - See aerobic report. 01/10/18 23:57 Catheterized Urine Urine Culture - Final Luda glabrata 01/10/18 19:45 Blood - Peripheral Aerobic Blood Culture - Final Klebsiella pneumoniae 01/10/18 19:45 Blood - Peripheral Anaerobic Blood Culture - Final Klebsiella pneumoniae 01/10/18 19:40 Blood - Peripheral Aerobic Blood Culture - Final Klebsiella pneumoniae 01/10/18 19:40 Blood - Peripheral Anaerobic Blood Culture - Final Klebsiella pneumoniae Lab - Hematology Results 01/13/18 01/14/18 06:16 05:07 WBC 12.6 H 8.0 RBC 4.18 3.74 L Hgb 12.5 D 11.3 L Hct 37.6 34.2 L MCV 90.1 91.5 MCH 30.0 30.1 MCHC 33.3 32.9 RDW 16.2 16.2 Plt Count 196 186 MPV 12.1 H 11.9 H Prelim Diff (Auto) Manual diff required Manual diff required WBC Differential Manual diff final Manual diff final Seg Neuts % (Manual) 68 72 H Band Neuts % (Manual) 8 H 9 H Lymphocytes % (Manual) 19 13 Monocytes % (Manual) 3 6 Eosinophils % (Manual) 1 Basophils % (Manual) 1 Abs Neuts (Manual) 9.6 H 6.5 Nucleated RBCs/100 WBC 1 H Differential Comment . . Platelet Estimate Normal Normal Platelet Morphology Enlarged H Enlarged H Target Cells 2+ H 2+ H [place] Bodies Present H Lab - Chemistry Results 01/12/18 01/12/18 01/12/18 16:20 20:26 21:20 Sodium Cancelled Potassium Cancelled Chloride Cancelled Carbon Dioxide Cancelled Anion Gap Cancelled BUN Cancelled Creatinine Cancelled Estimated GFR Cancelled POC Glucose 132 H 273 H Random Glucose Cancelled Lactic Acid Calcium Cancelled Phosphorus Magnesium Total Bilirubin AST ALT Alkaline Phosphatase Ammonia Total Protein Albumin 01/13/18 01/13/18 01/13/18 00:45 03:07 06:16 Sodium 141 Potassium 3.8 Chloride 106 Carbon Dioxide 23.5 Anion Gap 12 BUN 8 Creatinine 0.50 Estimated GFR Greater than 89 POC Glucose 235 H 135 H Random Glucose 76 Lactic Acid Calcium 8.6 D Phosphorus 2.4 L Magnesium 1.9 Total Bilirubin 5.8 H AST 225 H ALT 170 H Alkaline Phosphatase 1315 H Ammonia Total Protein 7.2 D Albumin 1.8 L 01/13/18 01/13/18 01/13/18 06:16 06:16 08:14 Sodium Potassium Chloride Carbon Dioxide Anion Gap BUN Creatinine Estimated GFR POC Glucose 81 Random Glucose Lactic Acid 0.9 Calcium Phosphorus Magnesium Total Bilirubin AST ALT Alkaline Phosphatase Ammonia 24 Total Protein Albumin 01/13/18 01/13/18 01/13/18 12:00 16:54 20:43 Sodium Potassium Chloride Carbon Dioxide Anion Gap BUN Creatinine Estimated GFR POC Glucose 96 212 H 126 H Random Glucose Lactic Acid Calcium Phosphorus Magnesium Total Bilirubin AST ALT Alkaline Phosphatase Ammonia Total Protein Albumin 01/13/18 01/14/18 01/14/18 23:19 03:20 05:07 Sodium 140 Potassium 3.3 L Chloride 106 Carbon Dioxide 23.5 Anion Gap 11 BUN 7 Creatinine 0.42 L Estimated GFR Greater than 89 POC Glucose 197 H 162 H Random Glucose 125 H Lactic Acid Calcium 7.6 L D Phosphorus 2.6 Magnesium 1.7 Total Bilirubin 4.8 H AST 142 H ALT 114 H Alkaline Phosphatase 1131 H Ammonia Total Protein 5.6 L D Albumin 1.4 L 01/14/18 01/14/18 01/14/18 07:59 08:11 08:18 Sodium Potassium Chloride Carbon Dioxide Anion Gap BUN Creatinine Estimated GFR POC Glucose 66 L 66 L 64 L Random Glucose Lactic Acid Calcium Phosphorus Magnesium Total Bilirubin AST ALT Alkaline Phosphatase Ammonia Total Protein Albumin 01/14/18 01/14/18 08:33 12:03 Sodium Potassium Chloride Carbon Dioxide Anion Gap BUN Creatinine Estimated GFR POC Glucose 205 H 286 H Random Glucose Lactic Acid Calcium Phosphorus Magnesium Total Bilirubin AST ALT Alkaline Phosphatase Ammonia Total Protein Albumin Imaging: ITS Impressions Chest X-Ray 01/10/18 21:09 CONCLUSION: Interval placement of left IJ catheter with 1.5 cm lateral pneumothorax on the left side. Chest CT 01/10/18 22:04 CONCLUSION: 1. No evidence of pneumothorax on the left side. Abdomen/Pelvis CT 01/10/18 23:21 CONCLUSION: 1. There are stable findings of hepatic cirrhosis, pneumobilia and probable portal hypertension with prominence of the portal venous system. 2. Mild, diffuse abdominal ascites and mesenteric edema probably due to passive congestion. Small amount of free fluid in the deep pelvis. 3. Stable bilateral lower pole, nonobstructing renal stones. Largest on the left measures 9.5 mm in diameter. 4. No significant change from prior. Cholangiopancreatography MRI 01/13/18 00:00 CONCLUSION: 1. Cirrhosis. 2. Areas of low signal seen in the intrahepatic biliary ducts likely related to pneumobilia. There is a 1 cm filling defect within the common bile duct. This could represent a stone or a focal area of pneumobilia. There is intrahepatic biliary duct dilatation. The gallbladder is nondistended. 3. Bilateral moderate pleural effusions. 4. Mild ascites. 5. Edema in the subcutaneous tissues which could represent anasarca. Liver Ultrasound 01/13/18 00:00 CONCLUSION: 1. Abnormal diffuse gallbladder wall thickening with edema. No stones are visualized and sonographic Raygoza sign is negative suggesting against acute inflammation. The wall thickening/edema may be related to chronic liver disease. 2. Liver demonstrates imaging features characteristic of cirrhosis. No focal lesion is seen. 3. Trace perihepatic free fluid/ascites and right pleural effusion. Physical Exam: PHYSICAL EXAMINATION: GENERAL: No acute distress. She is awake and alert and oriented. HEENT: Head atraumatic. Extraocular movements are grossly intact. Pupils reactive to light. No icterus. Oropharynx moist mucosa. No thrush. No visible lesions. NECK: Supple without adenopathy or swelling. LUNGS: Clear breath sounds. HEART: Regular S1, S2. No murmurs, rubs or gallops. ABDOMEN: Mildly distended, soft, mild tenderness at the right upper quadrant. EXTREMITIES: No clubbing, cyanosis or edema. SKIN: No rash. NEUROLOGIC: No gross focal finding. PSYCHIATRIC: calm and cooperative. Assessment and Plan - Plan IMPRESSION: 1. Sepsis due to Klebsiella pneumoniae originating from the biliary system. 2. Cholangitis. 3. Luda urinary tract infection. 4. History of cirrhosis of the liver. RECOMMENDATIONS: 1. Continue piperacillin/tazobactam. 2. Continue micafungin for Luda glabrata. 3. Follow repeat blood culture. 4. Monitor response.
--- NOTE | 2018-01-14 17:15 | P.PNGI ---
Subjective Interval history: Patient sitting up on side of bed. Reports generalized abdominal tenderness on palpation during examination. Denies nausea or vomiting. <Lola Levin - Last Filed: 01/14/18 18:12> Physical Exam Vital signs: Vital Signs 01/13/18 18:00 01/13/18 20:00 01/13/18 22:00 Temperature 98.6 F Pulse Rate 87 104 H 100 H Respiratory Rate 18 Blood Pressure 128/80 Pulse Oximetry 97 01/14/18 00:00 01/14/18 02:00 01/14/18 04:00 Temperature 98.7 F 98.5 F Pulse Rate 92 H 83 89 Respiratory Rate 16 16 Blood Pressure 118/83 123/91 H Pulse Oximetry 99 98 01/14/18 06:00 01/14/18 08:00 01/14/18 10:00 Temperature 98.1 F Pulse Rate 71 89 79 Respiratory Rate 12 Blood Pressure 113/68 Pulse Oximetry 96 01/14/18 12:00 01/14/18 14:00 Temperature 98.8 F Pulse Rate 72 94 H Respiratory Rate 12 Blood Pressure 113/75 Pulse Oximetry 95 Intake & Output 01/13/18 01/14/18 01/14/18 18:59 06:59 18:59 Intake Total 830 / 830 580 / 580 540 / 540 Output Total 900 / 900 375 / 375 1100 / 1100 Balance -70 / -70 205 / 205 -560 / -560 Weight 56.4 kg Intake: IV 350 / 350 100 / 100 300 / 300 NS Inj 1,000 ML @ 84 mls/hr IV. 150 / 150 CONT .[id number] DESTINI Rx#:[id number] Mycamine Inj 100 MG In NS Inj 100 / 100 100 / 100 100 ML @ 100 mls/hr IV.SIG Q24H DESTINI Rx#:[id number] Zosyn 3.375 GM Premix 50 ML @ 100 / 100 100 / 100 100 / 100 100 mls/hr IV.SIG Q6H DESTINI Rx#: [id number] KCl 20 mEq Premix Inj 20 meq In 100 / 100 100 ml @ 50 mls/hr IV.SIG Q2H PRN Rx#:[id number] Oral 480 / 480 480 / 480 240 / 240 Output: Urine 900 / 900 375 / 375 1100 / 1100 Other: Date of Last Bowel Movement 01/10/18 01/10/1801/10/18 # Bowel Movements 0 0 - Constitutional mild distress, thin, cooperative - Routine HEENT Exam Head: Present: normocephalic - Routine Respiratory Exam Present: CTA bilaterally - Routine Abdominal Exam Present: soft, normoactive bowel sounds, distended Comments: Pt reports generalized abdominal tenderness on exam - Routine Skin Exam Present: dry, warm - Routine Neurological Exam Present: alert, oriented X3 - Urinary Catheter Management Indwelling Urethral Catheter Cath placed during this visit: yes, but has since been removed by the nurse Reason for continuing: Decision to DC catheter Insertion date: 01/10/18 Insertion time: 23:30 Removal date: 01/12/18 Removal time: 23:00 <Lola Levin - Last Filed: 01/14/18 18:12> Vital signs: Vital Signs 01/13/18 22:00 01/14/18 00:00 01/14/18 02:00 Temperature 98.7 F Pulse Rate 100 H 92 H 83 Respiratory Rate 16 Blood Pressure 118/83 Pulse Oximetry 99 01/14/18 04:00 01/14/18 06:00 01/14/18 08:00 Temperature 98.5 F 98.1 F Pulse Rate 89 71 89 Respiratory Rate 16 12 Blood Pressure 123/91 H 113/68 Pulse Oximetry 98 96 01/14/18 10:00 01/14/18 12:00 01/14/18 14:00 Temperature 98.8 F Pulse Rate 79 72 94 H Respiratory Rate 12 Blood Pressure 113/75 Pulse Oximetry 95 01/14/18 14:20 Temperature 98.2 F Pulse Rate 77 Respiratory Rate 16 Blood Pressure 111/74 Pulse Oximetry 16 L Intake & Output 01/14/18 01/14/18 01/15/18 06:59 18:59 06:59 Intake Total 580 / 580 640 / 640 Output Total 375 / 375 1100 / 1100 Balance 205 / 205 -460 / -460 Weight 56.4 kg 58.1 kg Intake: IV 100 / 100 400 / 400 Mycamine Inj 100 MG In NS Inj 100 / 100 100 ML @ 100 mls/hr IV.SIG Q24H DESTINI Rx#:[id number] Zosyn 3.375 GM Premix 50 ML @ 100 / 100 100 / 100 100 mls/hr IV.SIG Q6H DESTINI Rx#: [id number] KCl 20 mEq Premix Inj 20 meq In 200 / 200 100 ml @ 50 mls/hr IV.SIG Q2H PRN Rx#:[id number] Oral 480 / 480 240 / 240 Output: Urine 375 / 375 1100 / 1100 Other: Date of Last Bowel Movement 01/10/18 01/10/18 # Bowel Movements 0 - Urinary Catheter Management Indwelling Urethral Catheter Cath placed during this visit: no <Madison Jarvis - Last Filed: 01/14/18 20:14> Results - Labs CBC & Chem 7: 01/14/18 05:07 01/14/18 05:07 Laboratory Results - last 24 hr 01/13/18 01/13/18 01/13/18 16:54 20:43 23:19 WBC RBC Hgb Hct MCV MCH MCHC RDW Plt Count MPV Prelim Diff (Auto) WBC Differential Seg Neuts % (Manual) Band Neuts % (Manual) Lymphocytes % (Manual) Monocytes % (Manual) Abs Neuts (Manual) Nucleated RBCs/100 WBC Differential Comment Platelet Estimate Platelet Morphology Target Cells Sodium Potassium Chloride Carbon Dioxide Anion Gap BUN Creatinine Estimated GFR POC Glucose 212 H 126 H 197 H Random Glucose Calcium Phosphorus Magnesium Total Bilirubin AST ALT Alkaline Phosphatase Total Protein Albumin 01/14/18 01/14/18 01/14/18 03:20 05:07 05:07 WBC 8.0 RBC 3.74 L Hgb 11.3 L Hct 34.2 L MCV 91.5 MCH 30.1 MCHC 32.9 RDW 16.2 Plt Count 186 MPV 11.9 H Prelim Diff (Auto) Manual diff required WBC Differential Manual diff final Seg Neuts % (Manual) 72 H Band Neuts % (Manual) 9 H Lymphocytes % (Manual) 13 Monocytes % (Manual) 6 Abs Neuts (Manual) 6.5 Nucleated RBCs/100 WBC 1 H Differential Comment . Platelet Estimate Normal Platelet Morphology Enlarged H Target Cells 2+ H Sodium 140 Potassium 3.3 L Chloride 106 Carbon Dioxide 23.5 Anion Gap 11 BUN 7 Creatinine 0.42 L Estimated GFR Greater than 89 POC Glucose 162 H Random Glucose 125 H Calcium 7.6 L D Phosphorus 2.6 Magnesium 1.7 Total Bilirubin 4.8 H AST 142 H ALT 114 H Alkaline Phosphatase 1131 H Total Protein 5.6 L D Albumin 1.4 L 01/14/18 01/14/18 01/14/18 07:59 08:11 08:18 WBC RBC Hgb Hct MCV MCH MCHC RDW Plt Count MPV Prelim Diff (Auto) WBC Differential Seg Neuts % (Manual) Band Neuts % (Manual) Lymphocytes % (Manual) Monocytes % (Manual) Abs Neuts (Manual) Nucleated RBCs/100 WBC Differential Comment Platelet Estimate Platelet Morphology Target Cells Sodium Potassium Chloride Carbon Dioxide Anion Gap BUN Creatinine Estimated GFR POC Glucose 66 L 66 L 64 L Random Glucose Calcium Phosphorus Magnesium Total Bilirubin AST ALT Alkaline Phosphatase Total Protein Albumin 01/14/18 01/14/18 01/14/18 08:33 12:03 16:47 WBC RBC Hgb Hct MCV MCH MCHC RDW Plt Count MPV Prelim Diff (Auto) WBC Differential Seg Neuts % (Manual) Band Neuts % (Manual) Lymphocytes % (Manual) Monocytes % (Manual) Abs Neuts (Manual) Nucleated RBCs/100 WBC Differential Comment Platelet Estimate Platelet Morphology Target Cells Sodium Potassium Chloride Carbon Dioxide Anion Gap BUN Creatinine Estimated GFR POC Glucose 205 H 286 H 309 H Random Glucose Calcium Phosphorus Magnesium Total Bilirubin AST ALT Alkaline Phosphatase Total Protein Albumin Microbiology 01/12/18 21:48 Blood - Peripheral Aerobic Blood Culture - Preliminary No growth in 2 days 01/12/18 21:48 Blood - Peripheral Anaerobic Blood Culture - Preliminary No growth in 2 days 01/12/18 21:20 Blood - Peripheral Aerobic Blood Culture - Preliminary No growth in 2 days 01/12/18 21:20 Blood - Peripheral Anaerobic Blood Culture - Final QNS - See aerobic report. 01/10/18 23:57 Catheterized Urine Urine Culture - Final Luda glabrata - Imaging Impressions Cholangiopancreatography MRI 01/13/18 00:00 CONCLUSION: 1. Cirrhosis. 2. Areas of low signal seen in the intrahepatic biliary ducts likely related to pneumobilia. There is a 1 cm filling defect within the common bile duct. This could represent a stone or a focal area of pneumobilia. There is intrahepatic biliary duct dilatation. The gallbladder is nondistended. 3. Bilateral moderate pleural effusions. 4. Mild ascites. 5. Edema in the subcutaneous tissues which could represent anasarca. <Lola Levin - Last Filed: 01/14/18 18:12> - Labs CBC & Chem 7: 01/14/18 05:07 01/14/18 05:07 Laboratory Results - last 24 hr 01/13/18 01/13/18 01/14/18 20:43 23:19 03:20 WBC RBC Hgb Hct MCV MCH MCHC RDW Plt Count MPV Prelim Diff (Auto) WBC Differential Seg Neuts % (Manual) Band Neuts % (Manual) Lymphocytes % (Manual) Monocytes % (Manual) Abs Neuts (Manual) Nucleated RBCs/100 WBC Differential Comment Platelet Estimate Platelet Morphology Target Cells Sodium Potassium Chloride Carbon Dioxide Anion Gap BUN Creatinine Estimated GFR POC Glucose 126 H 197 H 162 H Random Glucose Calcium Phosphorus Magnesium Total Bilirubin AST ALT Alkaline Phosphatase Total Protein Albumin 01/14/18 01/14/18 01/14/18 05:07 05:07 07:59 WBC 8.0 RBC 3.74 L Hgb 11.3 L Hct 34.2 L MCV 91.5 MCH 30.1 MCHC 32.9 RDW 16.2 Plt Count 186 MPV 11.9 H Prelim Diff (Auto) Manual diff required WBC Differential Manual diff final Seg Neuts % (Manual) 72 H Band Neuts % (Manual) 9 H Lymphocytes % (Manual) 13 Monocytes % (Manual) 6 Abs Neuts (Manual) 6.5 Nucleated RBCs/100 WBC 1 H Differential Comment . Platelet Estimate Normal Platelet Morphology Enlarged H Target Cells 2+ H Sodium 140 Potassium 3.3 L Chloride 106 Carbon Dioxide 23.5 Anion Gap 11 BUN 7 Creatinine 0.42 L Estimated GFR Greater than 89 POC Glucose 66 L Random Glucose 125 H Calcium 7.6 L D Phosphorus 2.6 Magnesium 1.7 Total Bilirubin 4.8 H AST 142 H ALT 114 H Alkaline Phosphatase 1131 H Total Protein 5.6 L D Albumin 1.4 L 01/14/18 01/14/18 01/14/18 08:11 08:18 08:33 WBC RBC Hgb Hct MCV MCH MCHC RDW Plt Count MPV Prelim Diff (Auto) WBC Differential Seg Neuts % (Manual) Band Neuts % (Manual) Lymphocytes % (Manual) Monocytes % (Manual) Abs Neuts (Manual) Nucleated RBCs/100 WBC Differential Comment Platelet Estimate Platelet Morphology Target Cells Sodium Potassium Chloride Carbon Dioxide Anion Gap BUN Creatinine Estimated GFR POC Glucose 66 L 64 L 205 H Random Glucose Calcium Phosphorus Magnesium Total Bilirubin AST ALT Alkaline Phosphatase Total Protein Albumin 01/14/18 01/14/18 01/14/18 12:03 16:47 19:43 WBC RBC Hgb Hct MCV MCH MCHC RDW Plt Count MPV Prelim Diff (Auto) WBC Differential Seg Neuts % (Manual) Band Neuts % (Manual) Lymphocytes % (Manual) Monocytes % (Manual) Abs Neuts (Manual) Nucleated RBCs/100 WBC Differential Comment Platelet Estimate Platelet Morphology Target Cells Sodium Potassium Chloride Carbon Dioxide Anion Gap BUN Creatinine Estimated GFR POC Glucose 286 H 309 H 256 H Random Glucose Calcium Phosphorus Magnesium Total Bilirubin AST ALT Alkaline Phosphatase Total Protein Albumin Microbiology 01/12/18 21:48 Blood - Peripheral Aerobic Blood Culture - Preliminary No growth in 2 days 01/12/18 21:48 Blood - Peripheral Anaerobic Blood Culture - Preliminary No growth in 2 days 01/12/18 21:20 Blood - Peripheral Aerobic Blood Culture - Preliminary No growth in 2 days 01/12/18 21:20 Blood - Peripheral Anaerobic Blood Culture - Final QNS - See aerobic report. - Imaging Impressions Cholangiopancreatography MRI 01/13/18 00:00 CONCLUSION: 1. Cirrhosis. 2. Areas of low signal seen in the intrahepatic biliary ducts likely related to pneumobilia. There is a 1 cm filling defect within the common bile duct. This could represent a stone or a focal area of pneumobilia. There is intrahepatic biliary duct dilatation. The gallbladder is nondistended. 3. Bilateral moderate pleural effusions. 4. Mild ascites. 5. Edema in the subcutaneous tissues which could represent anasarca. 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 this morning pending liver ultrasound but is now eating a regular breakfast appears to have good appetite and denies any nausea or vomiting does note some generalized abdominal soreness and some right upper quadrant pressure but overall is feeling better 01/13/2018 liver ultrasound this morning shows findings of abnormal diffuse gallbladder wall thickening with edema but no stones are visualized Raygoza sign is negative suggesting any acute inflammation. The gallbladder wall thickening may be related to the chronic liver disease characteristics of cirrhosis. Trace of perihepatic free fluid ascites and right pleural effusion Patient appears to have symptoms managed at this time. Current labs show hemoglobin 12.5 alkaline phosphatase initially 1472 now 1315. AST 225 ALT 170. Continues treatment for liver cirrhosis. And monitoring of symptoms 01/14/18-Patient sitting up on side of bed. Denies nausea or vomiting. States continued generalized abdominal tenderness during exam on palpation. States she is tolerating diet well. Discussed need for NPO after midnight for planned ERCP. 01/13/18 MRCP--> Cirrhosis. Areas of low signal seen in the intrahepatic biliary ducts likely related to pneumobilia. There is a 1 cm filling defect within the common bile duct. This could represent a stone or a focal area of pneumobilia. There is intrahepatic biliary duct dilatation. The gallbladder is nondistended. Bilateral moderate pleural effusions. Mild ascites. Edema in the subcutaneous tissues which could represent anasarca. Current labs reviewed 01/14/18 WBC 8.0, Hgb 11.3, Total Bili 4.8, AST 142, ALT 114, ALK PHOS 1131. Will continue to monitor patient closely. Plan Diet npo after midnight for procedure in am consent for ERCP for tomorrow 01/15/18 Monitor labs with special attention to LFTs, bilirubin and hemoglobin Continue Protonix 40 mg po daily Antiemetics prn Supportive care Further recommendations to follow after ERCP. patient has been seen per myself and Dr. Jarvis and this note is written on his behalf. <Lola Levin - Last Filed: 01/14/18 18:12> - Plan Seen and examined with [employer], MRCP suggestive of cholidocholithiasis. ERCP planned for tomorrow. Discussed with pt. The exam, history, and the medical decision-making described in the above note were completed with the assistance of the mid-level provider. I reviewed and agree with the findings presented. I attest that I had a cqop-sd-thal encounter with the patient on the same day, and personally performed and documented my assessment and findings in the medical record. <Madison Jarvis - Last Filed: 01/14/18 20:14>
[2018-01-15] MEDS: HYDROmorphone PF Inj 2 MG/ML Vial IV.PUSH PRN ×5 (00:33→22:23)
[2018-01-15] MEDS: Piperacil/Tazo 3.375 GM Premix 50 ML IV.SIG SCH ×4 (02:27→22:21)
[2018-01-15] MEDS: Insulin NovoLIN Regular Correctional Sugar Inj SQ SCH ×5 (02:27→22:29)
[2018-01-15] MEDS: Chlorhexidine Gluconate 2% 1 Pack (2 Cloths) TOPICAL SCH (04:31)
[2018-01-15 06:00] LABS: Hematocrit 32.4 % (35.0-46.0); Hemoglobin 10.8 gm/dL (11.6-15.3); Mean Corpuscular HGB Conc 33.4 % (32.0-36.0); Mean Platelet Volume 12.5 fL (7.0-11.0); Platelet Count 179 th/mm3 (150-450); Red Cell Distribution Width 15.6 % (11.6-17.2); White Blood Count 7.6 th/mm3 (4.0-11.0)
[2018-01-15 06:27] LABS: Alanine Aminotransferase 97 U/L (10-53); Albumin 1.4 g/dL (3.4-5.0); Anion Gap 9 meq/L (5-15); Aspartate Aminotransferase 119 U/L (15-37); Blood Urea Nitrogen 6 mg/dL (7-18); Calcium 7.3 mg/dL (8.5-10.1); Carbon Dioxide 25.3 meq/L (21.0-32.0); Chloride 105 meq/L (98-107); Glomerular Filtration Rate Greater Than 89 mL/min (>89); Glucose,Random 170 mg/dL (74-106); Magnesium 1.7 mg/dL (1.5-2.5); Phosphorus 2.1 mg/dL (2.5-4.9); Potassium 3.6 meq/L (3.5-5.1); Sodium 139 meq/L (136-145)
[2018-01-15 06:42] LABS: Alkaline Phosphatase 1111 U/L (45-117); Total Protein 5.5 g/dL (6.4-8.2)
[2018-01-15 08:07] LABS: Lymphocytes 14 % (9-44); Metamyelocytes 1 % (0-1); Monocytes 10 % (0-8)
[2018-01-15 08:08] LABS: Platelet Estimate Normal (Normal)
[2018-01-15 08:09] LABS: Target Cells 2+
--- NOTE | 2018-01-15 12:59 | GIPROC ---
[facility] [address] [facility]. [facility], [address] ERCP PROCEDURE REPORT EXAM DATE: 01/15/2018 PATIENT NAME: Suni Peterson MR #: [id number] BIRTHDATE: 1970 ATTENDING: Madison Jarvis MD ORDER #: [id number] [employer]IE [employer] OPERATOR: Bozena Pat Powell, Bianca, and Natalya Corbin STATUS: inpatient INDICATIONS: The patient is a 47 yr old female here for an ERCP due to abdominal pain of suspected biliary origin and abnormal abdominal CT PROCEDURE PERFORMED: ERCP, diagnostic MEDICATIONS: None and Per Anesthesia. CONSENT: The patient understands the risks and benefits of the procedure and understands that these risks include, but are not limited to: sedation, allergic reaction, infection, perforation and/or bleeding. Alternative means of evaluation and treatment include, among others: physical exam, x-rays, and/or surgical intervention. The patient elects to proceed with this endoscopic procedure. medical equipment was checked for proper function. Hand hygiene and appropriate measures for infection prevention was taken. After the risks, benefits and alternatives of the procedure were thoroughly explained, Informed was verified, confirmed and timeout was successfully executed by the treatment team. With the patient in left semi-prone position, medications were administered intravenously.The Pentax [id number] was passed from the mouth into the esophagus and further advanced from the esophagus into the stomach. From stomach scope was directed to the second portion of the duodenum. Major papilla was aligned with the duodenoscope. The scope position was confirmed fluoroscopically. Rest of the findings/therapeutics are given below. The scope was then completely withdrawn from the patient and the procedure completed. The pulse, BP, and O2 saturation were monitored and documented by the physician and the nursing staff throughout the entire procedure. The patient was cared for as planned according to standard protocol. The patient was then discharged to recovery in stable condition and with appropriate post procedure care. Dilated distal CBD, biliary sludge, flushed with saline. ADVERSE EVENT: There were no complications. IMPRESSIONS: Dilated distal CBD, biliary sludge, flushed with saline RECOMMENDATIONS: 1. Antibiotics 2. Liver enzymes REPEAT EXAM: Return as needed for ERCP Madison Jarvis MD eSigned: Madison Jarvis MD 01/15/2018 12:58 PM cc:
--- NOTE | 2018-01-15 13:25 | FL ---
EXAM DATE: 01/15/2018 1:13 PM EDT AGE/SEX: 47 years / Female INDICATIONS: ERCP. CLINICAL DATA: This is the patient's initial encounter. Patient reports that signs and symptoms have been present for 1 day and indicates a pain score of Nonresponsive. MEDICAL/SURGICAL HISTORY: . Diabetes. Non-Hodgkin's lymphoma. Hepatomegaly. Kidney stone. Histo ry of chemotherapy. Non-alcoholic cirrhosis. Sclerosing cholangitis. . Splenectomy. Liver biopsy. [place] [facility] [place]IARY [place] 08/20/2016. . FINDINGS: An ERCP was performed by the ordering physician. The images demonstrate a patent common duct. There is focal concentric stricturing of the proximal proper hepatic duct and there appear to be intrahepat ic duct strictures as well. CONCLUSION: Multifocal bile duct strictures which appear nonobstructing at present. The appearance would be consi stent with recurrent cholangitis or sclerosing cholangitis. Electronically signed by: Mele Limon MD 01/15/2018 1:24 PM EDT
[2018-01-15] MEDS: Senna/Docusate Sodium 8.6/50 MG Tablet PO SCH ×2 (14:02→22:22)
[2018-01-15] MEDS: Heparin - SQ 10,000 UNITS/ML Vial SQ SCH ×2 (14:03→22:22)
--- NOTE | 2018-01-15 15:22 | P.PNIM ---
Subjective Interval history: RN denies any setbacks since last night. Pt s/p ERCP w/ cannulation. denies n/v/ d. says she has mild diffuse edema in hands and feet, present for a week, family member says it's intermittent. Physical Exam Vital signs: Vital Signs 01/14/18 20:00 01/15/18 00:00 01/15/18 02:27 Temperature 98.1 F 99.0 F Pulse Rate 80 90 Respiratory Rate 19 18 16 Blood Pressure 108/73 116/72 Pulse Oximetry 97 95 01/15/18 04:00 01/15/18 07:48 01/15/18 13:36 Temperature 98.9 F 97.7 F Pulse Rate 92 H 74 Respiratory Rate 18 16 Blood Pressure 106/61 94/64 L Pulse Oximetry 92 L 95 94 L Intake & Output 01/14/18 01/15/18 01/15/18 18:59 06:59 18:59 Intake Total 640 / 640 100 / 100 900 / 900 Output Total 1100 / 1100 Balance -460 / -460 100 / 100 900 / 900 Weight 58.1 kg 58.3 kg Intake: IV 400 / 400 100 / 100 100 / 100 Mycamine Inj 100 MG In NS Inj 100 / 100 100 ML @ 100 mls/hr IV.SIG Q24H DESTINI Rx#:[id number] Zosyn 3.375 GM Premix 50 ML @ 100 / 100 100 / 100 100 / 100 100 mls/hr IV.SIG Q6H DESTINI Rx#: [id number] KCl 20 mEq Premix Inj 20 meq In 200 / 200 100 ml @ 50 mls/hr IV.SIG Q2H PRN Rx#:[id number] Oral 240 / 240 0 / 0 Anesthesia Amount 800 / 800 Output: Urine 1100 / 1100 Other: # Voids 2 Date of Last Bowel Movement 01/10/18 01/13/18 01/13/18 Narrative: hrt sounds rrr, no murmurs clear lungs BL, unlabored breathing mild edema noted in right hand and BL feet and LLs that is nonpitting abd is soft, mild diffuse TTP, ND - Urinary Catheter Management Indwelling Urethral Catheter Cath placed during this visit: yes, but has since been removed by the nurse Reason for continuing: Decision to DC catheter Insertion date: 01/10/18 Insertion time: 23:30 Removal date: 01/12/18 Removal time: 23:00 Results - Labs CBC & Chem 7: 01/15/18 04:05 01/15/18 04:05 Laboratory Results - last 24 hr 01/14/18 01/14/18 01/15/18 16:47 19:43 02:16 WBC RBC Hgb Hct MCV MCH MCHC RDW Plt Count MPV Prelim Diff (Auto) WBC Differential Seg Neuts % (Manual) Band Neuts % (Manual) Lymphocytes % (Manual) Monocytes % (Manual) Metamyelocytes % (Man) Abs Neuts (Manual) Differential Comment Platelet Estimate Platelet Morphology Target Cells Sodium Potassium Chloride Carbon Dioxide Anion Gap BUN Creatinine Estimated GFR POC Glucose 309 H 256 H 147 H Random Glucose Calcium Prot Corrected Calcium Phosphorus Magnesium Total Bilirubin AST ALT Alkaline Phosphatase Total Protein Albumin 01/15/18 01/15/18 01/15/18 04:05 04:05 07:34 WBC 7.6 RBC 3.60 L Hgb 10.8 L Hct 32.4 L MCV 90.0 MCH 30.0 MCHC 33.4 RDW 15.6 Plt Count 179 MPV 12.5 H Prelim Diff (Auto) Manual diff required WBC Differential Manual diff final Seg Neuts % (Manual) 74 H Band Neuts % (Manual) 1 Lymphocytes % (Manual) 14 Monocytes % (Manual) 10 H Metamyelocytes % (Man) 1 Abs Neuts (Manual) 5.8 Differential Comment . Platelet Estimate Normal Platelet Morphology Enlarged H Target Cells 2+ H Sodium 139 Potassium 3.6 Chloride 105 Carbon Dioxide 25.3 Anion Gap 9 BUN 6 L Creatinine 0.36 L Estimated GFR Greater than 89 POC Glucose 216 H Random Glucose 170 H Calcium 7.3 L* Prot Corrected Calcium 8.2 L Phosphorus 2.1 L Magnesium 1.7 Total Bilirubin 4.4 H AST 119 H ALT 97 H Alkaline Phosphatase 1111 H Total Protein 5.5 L Albumin 1.4 L 01/15/18 13:19 WBC RBC Hgb Hct MCV MCH MCHC RDW Plt Count MPV Prelim Diff (Auto) WBC Differential Seg Neuts % (Manual) Band Neuts % (Manual) Lymphocytes % (Manual) Monocytes % (Manual) Metamyelocytes % (Man) Abs Neuts (Manual) Differential Comment Platelet Estimate Platelet Morphology Target Cells Sodium Potassium Chloride Carbon Dioxide Anion Gap BUN Creatinine Estimated GFR POC Glucose 240 H Random Glucose Calcium Prot Corrected Calcium Phosphorus Magnesium Total Bilirubin AST ALT Alkaline Phosphatase Total Protein Albumin Microbiology 01/12/18 21:48 Blood - Peripheral Aerobic Blood Culture - Preliminary No growth in 3 days 01/12/18 21:48 Blood - Peripheral Anaerobic Blood Culture - Preliminary No growth in 3 days 01/12/18 21:20 Blood - Peripheral Aerobic Blood Culture - Preliminary No growth in 3 days 01/12/18 21:20 Blood - Peripheral Anaerobic Blood Culture - Final QNS - See aerobic report. - Imaging Impressions GI Procedure 01/15/18 00:00 CONCLUSION: Multifocal bile duct strictures which appear nonobstructing at present. The appearance would be consistent with recurrent cholangitis or sclerosing cholangitis. Assessment and Plan - Plan 47 y/o WF admitted with septic shock 2/2 klebsiella bacteremia with sclerosing cholangitis w/ subsequent KORY. Septic shock and KORY resolved. had resolved. UC grew out danielle. Recently completed ERCP with some sludge findings. On med floor clinically stable. Klebsiella Bacteremia UC with danielle continue antibiotics per ID repeated blood cultures negative Severe chronic hepatitis cirrhosis Diagnosis of sclerosing Cholangitis Portal hypertension Mild abdominal ascites. Diarrhea - present on admission Chronic pancreatitis on Creon as an outpatient previously Hypoalbuminemia Elevated LFT's US abdomen: diffuse gallbladder wall thickening with edema. No stones. The wall thickening/edema may be related to chronic liver disease. Liver demonstrates imaging features characteristic of cirrhosis. No focal lesion is seen. Hx sclerosing cholangitis (pt states secondary to mass from NHL from liver biopsy 2013). Liver biopsy or 08/03 revealing severe chronic hepatitis likely drug-induced Currently followed by GI . Status post stent by Dr. Plummer at [facility] 2017 Patient has previously been evaluated by [facility] transplant. Previously on ursodiol 300 mg twice daily Bilateral nephrolithiasis hypokalemia CT abdomen/pelvis revealed stable findings of hepatic cirrhosis, pneumobilia and probable portal hypertension with prominence of the portal venous system. Mild, diffuse abdominal ascites and mesenteric edema probably due to passive congestion. Small amount of free fluid in the deep pelvis. Stable bilateral lower pole, nonobstructing renal stones. Largest on the left measures 9.5 mm in diameter. Leukocytosis- improved. Normocytic anemia History of non-Hodgkin's lymphoma In remission following chemotherapy 2004 Diabetes mellitus continue with sliding scale insulin Heparin 5000 units twice daily sub.
[2018-01-15] MEDS ORDERED: Lidocaine PF 1% Inj 5 ML Syringe INFILTRATN ONE (16:37)
--- NOTE | 2018-01-15 21:19 | ECG ---
Date Performed: 01/15/2018 Time Performed: 03:52:10 PTAGE: 47 years EKG: Sinus rhythm . Lead(s) unsuitable for analysis: V2 Leftward axis Poor R wave progression - probable normal variant Lateral ST-T changes may be due to myocardial ischemia Abnormal ECG PREVIOUS TRACING : 02/14/2017 21.20 Since the previous tracing, no significant change noted DOCTOR: Elan Lester Interpretating Date/Time 01/15/2018 21:18:38
[2018-01-16] MEDS: HYDROmorphone PF Inj 2 MG/ML Vial IV.PUSH PRN ×2 (02:45→06:49)
[2018-01-16] MEDS: Piperacil/Tazo 3.375 GM Premix 50 ML IV.SIG SCH ×3 (02:45→14:16)
[2018-01-16] MEDS: Insulin NovoLIN Regular Correctional Sugar Inj SQ SCH ×3 (03:00→13:41)
[2018-01-16 04:42] LABS: Hematocrit 32.2 % (35.0-46.0); Hemoglobin 10.7 gm/dL (11.6-15.3); Mean Corpuscular HGB Conc 33.3 % (32.0-36.0); Mean Corpuscular Hemoglobin 30.2 pg (27.0-34.0); Mean Corpuscular Volume 90.9 fL (80.0-100.0); Mean Platelet Volume 11.4 fL (7.0-11.0); Platelet Count 199 th/mm3 (150-450); Red Blood Count 3.54 mil/mm3 (4.00-5.30); Red Cell Distribution Width 15.9 % (11.6-17.2); White Blood Count 7.6 th/mm3 (4.0-11.0)
[2018-01-16 05:12] LABS: Alanine Aminotransferase 84 U/L (10-53); Albumin 1.3 g/dL (3.4-5.0); Alkaline Phosphatase 1079 U/L (45-117); Anion Gap 9 meq/L (5-15); Aspartate Aminotransferase 102 U/L (15-37); Blood Urea Nitrogen 5 mg/dL (7-18); Calcium 7.1 mg/dL (8.5-10.1); Carbon Dioxide 26.6 meq/L (21.0-32.0); Chloride 106 meq/L (98-107); Glomerular Filtration Rate Greater Than 89 mL/min (>89); Glucose,Random 172 mg/dL (74-106); Magnesium 1.6 mg/dL (1.5-2.5); Phosphorus 1.9 mg/dL (2.5-4.9); Sodium 142 meq/L (136-145); Total Protein 5.2 g/dL (6.4-8.2)
[2018-01-16 05:26] VITALS: PULSE 82
[2018-01-16 08:35] LABS: Eosinophils 2 % (0-4); Lymphocytes 17 % (9-44); Monocytes 17 % (0-8); Myelocytes 2 % (0-0); Platelet Estimate Normal (Normal); Platelet Morphology Normal (Normal)
[2018-01-16 08:39] LABS: Howell-Jolly Bodies Present; Target Cells 2+
[2018-01-16] MEDS: Senna/Docusate Sodium 8.6/50 MG Tablet PO SCH (08:59)
[2018-01-16] MEDS: Heparin - SQ 10,000 UNITS/ML Vial SQ SCH (08:59)
--- NOTE | 2018-01-16 11:31 | P.PNGI ---
Subjective Interval history: Pt resting in bed. Tolerating PO. Reports some nausea, denies any emesis. Some pain in RUQ of abdomen, well controlled on pain medication. No BM since ERCP yesterday. <FuentesmaryChelsea - Last Filed: 01/16/18 11:29> Physical Exam Vital signs: Vital Signs 01/15/18 13:36 01/15/18 20:00 01/15/18 22:20 Temperature 97.7 F 98.2 F Pulse Rate 74 89 86 Respiratory Rate 16 18 Blood Pressure 94/64 L 94/64 L 129/84 Pulse Oximetry 94 L 94 L 01/16/18 00:00 01/16/18 04:00 Temperature 98.2 F 98.1 F Pulse Rate 84 82 Respiratory Rate 18 18 Blood Pressure 115/69 100/56 L Pulse Oximetry 95 93 L Intake & Output 01/15/18 01/16/18 01/16/18 18:59 06:59 18:59 Intake Total 1360 / 1360 340 / 340 50 / 50 Output Total 700 / 700 Balance 1360 / 1360 -360 / -360 50 / 50 Weight 55.8 kg Intake: IV 200 / 200 100 / 100 50 / 50 Mycamine Inj 100 MG In NS Inj 100 / 100 100 ML @ 100 mls/hr IV.SIG Q24H DESTINI Rx#:[id number] Zosyn 3.375 GM Premix 50 ML @ 100 / 100 100 / 100 50 / 50 100 mls/hr IV.SIG Q6H DESTINI Rx#: [id number] Oral 360 / 360 240 / 240 Anesthesia Amount 800 / 800 Output: Urine 700 / 700 Other: # Voids 3 2 Date of Last Bowel Movement 01/13/18 # Bowel Movements 0 0 - Constitutional no acute distress - Routine HEENT Exam Head: Present: normocephalic, atraumatic - Routine Respiratory Exam Absent: accessory muscle use - Routine Abdominal Exam Present: soft, normoactive bowel sounds, tenderness (mild RUQ tenderness ). Absent: distended - Routine Skin Exam Present: dry, warm - Routine Neurological Exam Present: alert, oriented X3 - Urinary Catheter Management Indwelling Urethral Catheter Cath placed during this visit: yes, but has since been removed by the nurse Reason for continuing: Decision to DC catheter Insertion date: 01/10/18 Insertion time: 23:30 Removal date: 01/12/18 Removal time: 23:00 <Chelsea Henriquez - Last Filed: 01/16/18 11:29> Vital signs: Vital Signs 01/15/18 20:00 01/15/18 22:20 01/16/18 00:00 Temperature 98.2 F 98.2 F Pulse Rate 89 86 84 Respiratory Rate 18 18 Blood Pressure 94/64 L 129/84 115/69 Pulse Oximetry 94 L 95 01/16/18 04:00 Temperature 98.1 F Pulse Rate 82 Respiratory Rate 18 Blood Pressure 100/56 L Pulse Oximetry 93 L Intake & Output 01/15/18 01/16/18 01/16/18 18:59 06:59 18:59 Intake Total 1360 / 1360 340 / 340 1064 / 1064 Output Total 700 / 700 Balance 1360 / 1360 -360 / -360 1064 / 1064 Weight 55.8 kg Intake: IV 200 / 200 100 / 100 1064 / 1064 Mycamine Inj 100 MG In NS Inj 100 / 100 100 ML @ 100 mls/hr IV.SIG Q24H DESTINI Rx#:[id number] Zosyn 3.375 GM Premix 50 ML @ 100 / 100 100 / 100 50 / 50 100 mls/hr IV.SIG Q6H DESTINI Rx#: [id number] KCl Inj 20 MEQ Magnesium 1014 / 1014 Sulfate Inj 2 GM In NS Inj 1, 000 ML @ 500 mls/hr IV.SIG ONCE ONE Rx#:[id number] Oral 360 / 360 240 / 240 Anesthesia Amount 800 / 800 Output: Urine 700 / 700 Other: # Voids 3 2 Date of Last Bowel Movement 01/13/18 01/13/18 # Bowel Movements 0 0 - Urinary Catheter Management Indwelling Urethral Catheter Cath placed during this visit: no <Madison Jarvis - Last Filed: 01/16/18 15:41> Results - Labs CBC & Chem 7: 01/16/18 03:42 01/16/18 03:42 Laboratory Results - last 24 hr 01/15/18 01/15/18 01/15/18 13:19 16:35 20:14 WBC RBC Hgb Hct MCV MCH MCHC RDW Plt Count MPV Prelim Diff (Auto) WBC Differential Seg Neuts % (Manual) Band Neuts % (Manual) Lymphocytes % (Manual) Monocytes % (Manual) Eosinophils % (Manual) Myelocytes % (Man) Abs Neuts (Manual) Differential Comment Platelet Estimate Platelet Morphology Target Cells [place] Bodies Sodium Potassium Chloride Carbon Dioxide Anion Gap BUN Creatinine Estimated GFR POC Glucose 240 H 346 H 528 H* Random Glucose Calcium Prot Corrected Calcium Phosphorus Magnesium Total Bilirubin AST ALT Alkaline Phosphatase Total Protein Albumin 01/15/18 01/16/18 01/16/18 22:19 02:50 03:42 WBC 7.6 RBC 3.54 L Hgb 10.7 L Hct 32.2 L MCV 90.9 MCH 30.2 MCHC 33.3 RDW 15.9 Plt Count 199 MPV 11.4 H Prelim Diff (Auto) Manual diff required WBC Differential Manual diff final Seg Neuts % (Manual) 57 Band Neuts % (Manual) 5 Lymphocytes % (Manual) 17 Monocytes % (Manual) 17 H Eosinophils % (Manual) 2 Myelocytes % (Man) 2 H Abs Neuts (Manual) 4.9 Differential Comment . Platelet Estimate Normal Platelet Morphology Normal Target Cells 2+ H [place] Bodies Present H Sodium Potassium Chloride Carbon Dioxide Anion Gap BUN Creatinine Estimated GFR POC Glucose 496 H* 202 H Random Glucose Calcium Prot Corrected Calcium Phosphorus Magnesium Total Bilirubin AST ALT Alkaline Phosphatase Total Protein Albumin 01/16/18 01/16/18 03:42 07:25 WBC RBC Hgb Hct MCV MCH MCHC RDW Plt Count MPV Prelim Diff (Auto) WBC Differential Seg Neuts % (Manual) Band Neuts % (Manual) Lymphocytes % (Manual) Monocytes % (Manual) Eosinophils % (Manual) Myelocytes % (Man) Abs Neuts (Manual) Differential Comment Platelet Estimate Platelet Morphology Target Cells [place] Bodies Sodium 142 Potassium 3.0 L Chloride 106 Carbon Dioxide 26.6 Anion Gap 9 BUN 5 L Creatinine 0.39 L Estimated GFR Greater than 89 POC Glucose 71 Random Glucose 172 H Calcium 7.1 L* Prot Corrected Calcium 8.1 L Phosphorus 1.9 L Magnesium 1.6 Total Bilirubin 4.0 H AST 102 H ALT 84 H Alkaline Phosphatase 1079 H Total Protein 5.2 L Albumin 1.3 L Microbiology 01/12/18 21:48 Blood - Peripheral Aerobic Blood Culture - Preliminary No growth in 4 days 01/12/18 21:48 Blood - Peripheral Anaerobic Blood Culture - Preliminary No growth in 4 days 01/12/18 21:20 Blood - Peripheral Aerobic Blood Culture - Preliminary No growth in 4 days 01/12/18 21:20 Blood - Peripheral Anaerobic Blood Culture - Final QNS - See aerobic report. - Imaging Impressions GI Procedure 01/15/18 00:00 CONCLUSION: Multifocal bile duct strictures which appear nonobstructing at present. The appearance would be consistent with recurrent cholangitis or sclerosing cholangitis. <Chelsea Henriquez - Last Filed: 01/16/18 11:29> - Labs CBC & Chem 7: 01/16/18 03:42 01/16/18 03:42 Laboratory Results - last 24 hr 01/15/18 01/15/18 01/15/18 16:35 20:14 22:19 WBC RBC Hgb Hct MCV MCH MCHC RDW Plt Count MPV Prelim Diff (Auto) WBC Differential Seg Neuts % (Manual) Band Neuts % (Manual) Lymphocytes % (Manual) Monocytes % (Manual) Eosinophils % (Manual) Myelocytes % (Man) Abs Neuts (Manual) Differential Comment Platelet Estimate Platelet Morphology Target Cells [place] Bodies Sodium Potassium Chloride Carbon Dioxide Anion Gap BUN Creatinine Estimated GFR POC Glucose 346 H 528 H* 496 H* Random Glucose Calcium Prot Corrected Calcium Phosphorus Magnesium Total Bilirubin AST ALT Alkaline Phosphatase Total Protein Albumin 01/16/18 01/16/18 01/16/18 02:50 03:42 03:42 WBC 7.6 RBC 3.54 L Hgb 10.7 L Hct 32.2 L MCV 90.9 MCH 30.2 MCHC 33.3 RDW 15.9 Plt Count 199 MPV 11.4 H Prelim Diff (Auto) Manual diff required WBC Differential Manual diff final Seg Neuts % (Manual) 57 Band Neuts % (Manual) 5 Lymphocytes % (Manual) 17 Monocytes % (Manual) 17 H Eosinophils % (Manual) 2 Myelocytes % (Man) 2 H Abs Neuts (Manual) 4.9 Differential Comment . Platelet Estimate Normal Platelet Morphology Normal Target Cells 2+ H [place] Bodies Present H Sodium 142 Potassium 3.0 L Chloride 106 Carbon Dioxide 26.6 Anion Gap 9 BUN 5 L Creatinine 0.39 L Estimated GFR Greater than 89 POC Glucose 202 H Random Glucose 172 H Calcium 7.1 L* Prot Corrected Calcium 8.1 L Phosphorus 1.9 L Magnesium 1.6 Total Bilirubin 4.0 H AST 102 H ALT 84 H Alkaline Phosphatase 1079 H Total Protein 5.2 L Albumin 1.3 L 01/16/18 01/16/18 07:25 12:01 WBC RBC Hgb Hct MCV MCH MCHC RDW Plt Count MPV Prelim Diff (Auto) WBC Differential Seg Neuts % (Manual) Band Neuts % (Manual) Lymphocytes % (Manual) Monocytes % (Manual) Eosinophils % (Manual) Myelocytes % (Man) Abs Neuts (Manual) Differential Comment Platelet Estimate Platelet Morphology Target Cells [place] Bodies Sodium Potassium Chloride Carbon Dioxide Anion Gap BUN Creatinine Estimated GFR POC Glucose 71 294 H Random Glucose Calcium Prot Corrected Calcium Phosphorus Magnesium Total Bilirubin AST ALT Alkaline Phosphatase Total Protein Albumin Microbiology 01/15/18 14:21 Clean Catch Urine Urine Culture - Preliminary Immature growth - reincubate 01/12/18 21:48 Blood - Peripheral Aerobic Blood Culture - Preliminary No growth in 4 days 01/12/18 21:48 Blood - Peripheral Anaerobic Blood Culture - Preliminary No growth in 4 days 01/12/18 21:20 Blood - Peripheral Aerobic Blood Culture - Preliminary No growth in 4 days 01/12/18 21:20 Blood - Peripheral Anaerobic Blood Culture - Final QNS - See aerobic report. <Madison Jarvis - Last Filed: 01/16/18 15:41> Assessment and Plan - Plan Assessment: - Primary sclerosing cholangitis and cirrhosis with elevated LFTs US liver (01/13) Abnormal diffuse gallbladder wall thickening with edema. No stones are visualized and sonographic Raygoza sign is negative suggesting against acute inflammation. The wall thickening/edema may be related to chronic liver disease. Liver demonstrates imaging features characteristic of cirrhosis. No focal lesion is seen. Trace perihepatic free fluid/ascites and right pleural effusion. MRCP (01/13) Cirrhosis. Areas of low signal seen in the intrahepatic biliary ducts likely related to pneumobilia. There is a 1 cm filling defect within the common bile duct. This could represent a stone or a focal area of pneumobilia. There is intrahepatic biliary duct dilatation. The gallbladder is nondistended. Bilateral moderate pleural effusions. Mild ascites. Edema in the subcutaneous tissues which could represent anasarca. ERCP (01/15) Dilated distal CBD, biliary sludge, flushed with saline. Multifocal bile duct strictures which appear nonobstructing at present. The appearance would be consistent with recurrent cholangitis or sclerosing cholangitis. - Leukocytosis, afebrile and hypotensive on admission- septic shock secondary to Klebsiella bacteremia from cholangitis Leukocytosis now improved, afebrile. (01/16) Tolerating PO. Some nausea, denies emesis. Some pain to RUQ but well controlled on pain medication. Mild improvement in LFTs today. Plan: Add Ursodiol Restart Creon with meals Monitor LFTs ID following- abx per recommendations Diet as tolerated Our service will sign off, pleas reconsult as needed Have pt follow up with GI after DC Pt has been seen and examined by myself and Dr. Jarvis and this note is written on his behalf <Chelsea Henriquez - Last Filed: 01/16/18 11:29> - Plan Seen and examined with GEOLOGICAL ENGINEERING TEACHER, s/p ercp. Actigal and creon. GI fu upon dc. Thank you The exam, history, and the medical decision-making described in the above note were completed with the assistance of the mid-level provider. I reviewed and agree with the findings presented. I attest that I had a [id number] encounter with the patient on the same day, and personally performed and documented my assessment and findings in the medical record. <Madison Jarvis - Last Filed: 01/16/18 15:41>
[2018-01-16] MEDS ORDERED: Sod Chloride 0.9% Inj 1,000 ML IV.SIG SCH (12:00)
[2018-01-16] MEDS ORDERED: Potassium Chloride Inj 20 MEQ, Magnesium Sulfate Inj 2 GM in Sod Chloride 0.9% Inj 1,00... IV.SIG ONE (12:00)
--- NOTE | 2018-01-16 12:14 | P.PNID ---
Subjective Remarks: Patient feels okay. States that she gets pain in the abdomen off and on. Denies chills. Afebrile. Post ERCP 01/15/2018. Repeat blood culture has no growth. 47-year-old white female who presented to the emergency department with abdominal pain and fever. The patient states that she developed sudden onset of fever that would not go away after 24 hours and she came to the emergency department because she was having abdominal pain and also nausea and vomiting. The patient has a known history of nonalcoholic liver cirrhosis. She had temperature of 102.7 degrees in the emergency department along with elevated heart rate of 130, elevated respiratory rate of 22 and blood pressure of 87/57. White blood cell count was elevated at 19.3 and lactic acid level elevation at 3.6. Past Medical History: PAST MEDICAL HISTORY: Diabetes mellitus, kidney stones, non-Hodgkin's lymphoma, history of splenectomy, cirrhosis of the liver. Allergies/Adverse Reactions: Allergies fentanyl Allergy (Severe, Verified 01/10/18 18:09) SOB gadobenic acid Allergy (Severe, Verified 01/10/18 18:09) BREATHING PROBLEMS, N/V,CHILLS gadodiamide Allergy (Severe, Verified 01/10/18 18:09) BREATHING PROBLEMS, N/V,CHILLS gadoteridol Allergy (Severe, Verified 01/10/18 18:09) BREATHING PROBLEMS, N/V,CHILLS ketorolac Allergy (Severe, Verified 01/10/18 18:09) Shortness of Breath morphine Allergy (Severe, Verified 01/10/18 18:09) SOB tramadol Allergy (Mild, Verified 01/10/18 18:09) Shortness of Breath Gadolinium-Containing Contrast Medi Adverse Reaction (Severe, Verified 01/10/18 18:09) nauseas /vomiting MRI PRECAUTION Adverse Reaction (Severe, Uncoded 01/10/18 18:09) NAUSEA; PER PATIENT IT IS A GADOLINIUM ALLERGY KMD 11/25/12 Objective Vital Signs 01/15/18 13:36 01/15/18 20:00 01/15/18 22:20 Temperature 97.7 F 98.2 F Pulse Rate 74 89 86 Respiratory Rate 16 18 Blood Pressure 94/64 L 94/64 L 129/84 Pulse Oximetry 94 L 94 L 01/16/18 00:00 01/16/18 04:00 Temperature 98.2 F 98.1 F Pulse Rate 84 82 Respiratory Rate 18 18 Blood Pressure 115/69 100/56 L Pulse Oximetry 95 93 L Intake & Output 01/15/18 01/16/18 01/16/18 18:59 06:59 18:59 Intake Total 1360 / 1360 340 / 340 50 / 50 Output Total 700 / 700 Balance 1360 / 1360 -360 / -360 50 / 50 Weight 55.8 kg Intake: IV 200 / 200 100 / 100 50 / 50 Mycamine Inj 100 MG In NS Inj 100 / 100 100 ML @ 100 mls/hr IV.SIG Q24H DESTINI Rx#:[id number] Zosyn 3.375 GM Premix 50 ML @ 100 / 100 100 / 100 50 / 50 100 mls/hr IV.SIG Q6H DESTINI Rx#: [id number] Oral 360 / 360 240 / 240 Anesthesia Amount 800 / 800 Output: Urine 700 / 700 Other: # Voids 3 2 Date of Last Bowel Movement 01/13/18 # Bowel Movements 0 0 01/12/18 21:48 Blood - Peripheral Aerobic Blood Culture - Preliminary No growth in 4 days 01/12/18 21:48 Blood - Peripheral Anaerobic Blood Culture - Preliminary No growth in 4 days 01/12/18 21:20 Blood - Peripheral Aerobic Blood Culture - Preliminary No growth in 4 days 01/12/18 21:20 Blood - Peripheral Anaerobic Blood Culture - Final QNS - See aerobic report. 01/15/18 14:21 Clean Catch Urine Urine Culture - Pending 01/10/18 23:57 Catheterized Urine Urine Culture - Final Luda glabrata 01/10/18 19:45 Blood - Peripheral Aerobic Blood Culture - Final Klebsiella pneumoniae 01/10/18 19:45 Blood - Peripheral Anaerobic Blood Culture - Final Klebsiella pneumoniae 01/10/18 19:40 Blood - Peripheral Aerobic Blood Culture - Final Klebsiella pneumoniae 01/10/18 19:40 Blood - Peripheral Anaerobic Blood Culture - Final Klebsiella pneumoniae Lab - Hematology Results 01/15/18 01/16/18 04:05 03:42 WBC 7.6 7.6 RBC 3.60 L 3.54 L Hgb 10.8 L 10.7 L Hct 32.4 L 32.2 L MCV 90.0 90.9 MCH 30.0 30.2 MCHC 33.4 33.3 RDW 15.6 15.9 Plt Count 179 199 MPV 12.5 H 11.4 H Prelim Diff (Auto) Manual diff required Manual diff required WBC Differential Manual diff final Manual diff final Seg Neuts % (Manual) 74 H 57 Band Neuts % (Manual) 1 5 Lymphocytes % (Manual) 14 17 Monocytes % (Manual) 10 H 17 H Eosinophils % (Manual) 2 Metamyelocytes % (Man) 1 Myelocytes % (Man) 2 H Abs Neuts (Manual) 5.8 4.9 Differential Comment . . Platelet Estimate Normal Normal Platelet Morphology Enlarged H Normal Target Cells 2+ H 2+ H [place] Bodies Present H Lab - Chemistry Results 01/14/18 01/14/18 01/14/18 12:03 16:47 19:43 Sodium Potassium Chloride Carbon Dioxide Anion Gap BUN Creatinine Estimated GFR POC Glucose 286 H 309 H 256 H Random Glucose Calcium Prot Corrected Calcium Phosphorus Magnesium Total Bilirubin AST ALT Alkaline Phosphatase Total Protein Albumin 01/15/18 01/15/18 01/15/18 02:16 04:05 07:34 Sodium 139 Potassium 3.6 Chloride 105 Carbon Dioxide 25.3 Anion Gap 9 BUN 6 L Creatinine 0.36 L Estimated GFR Greater than 89 POC Glucose 147 H 216 H Random Glucose 170 H Calcium 7.3 L* Prot Corrected Calcium 8.2 L Phosphorus 2.1 L Magnesium 1.7 Total Bilirubin 4.4 H AST 119 H ALT 97 H Alkaline Phosphatase 1111 H Total Protein 5.5 L Albumin 1.4 L 01/15/18 01/15/18 01/15/18 13:19 16:35 20:14 Sodium Potassium Chloride Carbon Dioxide Anion Gap BUN Creatinine Estimated GFR POC Glucose 240 H 346 H 528 H* Random Glucose Calcium Prot Corrected Calcium Phosphorus Magnesium Total Bilirubin AST ALT Alkaline Phosphatase Total Protein Albumin 01/15/18 01/16/18 01/16/18 22:19 02:50 03:42 Sodium 142 Potassium 3.0 L Chloride 106 Carbon Dioxide 26.6 Anion Gap 9 BUN 5 L Creatinine 0.39 L Estimated GFR Greater than 89 POC Glucose 496 H* 202 H Random Glucose 172 H Calcium 7.1 L* Prot Corrected Calcium 8.1 L Phosphorus 1.9 L Magnesium 1.6 Total Bilirubin 4.0 H AST 102 H ALT 84 H Alkaline Phosphatase 1079 H Total Protein 5.2 L Albumin 1.3 L 01/16/18 07:25 Sodium Potassium Chloride Carbon Dioxide Anion Gap BUN Creatinine Estimated GFR POC Glucose 71 Random Glucose Calcium Prot Corrected Calcium Phosphorus Magnesium Total Bilirubin AST ALT Alkaline Phosphatase Total Protein Albumin Imaging: ITS Impressions Chest X-Ray 01/10/18 21:09 CONCLUSION: Interval placement of left IJ catheter with 1.5 cm lateral pneumothorax on the left side. Chest CT 01/10/18 22:04 CONCLUSION: 1. No evidence of pneumothorax on the left side. Abdomen/Pelvis CT 01/10/18 23:21 CONCLUSION: 1. There are stable findings of hepatic cirrhosis, pneumobilia and probable portal hypertension with prominence of the portal venous system. 2. Mild, diffuse abdominal ascites and mesenteric edema probably due to passive congestion. Small amount of free fluid in the deep pelvis. 3. Stable bilateral lower pole, nonobstructing renal stones. Largest on the left measures 9.5 mm in diameter. 4. No significant change from prior. Cholangiopancreatography MRI 01/13/18 00:00 CONCLUSION: 1. Cirrhosis. 2. Areas of low signal seen in the intrahepatic biliary ducts likely related to pneumobilia. There is a 1 cm filling defect within the common bile duct. This could represent a stone or a focal area of pneumobilia. There is intrahepatic biliary duct dilatation. The gallbladder is nondistended. 3. Bilateral moderate pleural effusions. 4. Mild ascites. 5. Edema in the subcutaneous tissues which could represent anasarca. Liver Ultrasound 01/13/18 00:00 CONCLUSION: 1. Abnormal diffuse gallbladder wall thickening with edema. No stones are visualized and sonographic Raygoza sign is negative suggesting against acute inflammation. The wall thickening/edema may be related to chronic liver disease. 2. Liver demonstrates imaging features characteristic of cirrhosis. No focal lesion is seen. 3. Trace perihepatic free fluid/ascites and right pleural effusion. GI Procedure 01/15/18 00:00 CONCLUSION: Multifocal bile duct strictures which appear nonobstructing at present. The appearance would be consistent with recurrent cholangitis or sclerosing cholangitis. Physical Exam: PHYSICAL EXAMINATION: GENERAL: No acute distress. She is awake and alert and oriented. HEENT: No icterus. Oropharynx moist mucosa. No thrush. No visible lesions. NECK: Supple without adenopathy or swelling. LUNGS: Clear breath sounds. HEART: Regular S1, S2. No murmurs, rubs or gallops. ABDOMEN: Mildly distended, soft, very little tenderness at RUQ. EXTREMITIES: No clubbing, cyanosis or edema. SKIN: No rash. NEUROLOGIC: No gross focal finding. PSYCHIATRIC: calm and cooperative. Assessment and Plan - Plan IMPRESSION: 1. Sepsis due to Klebsiella pneumoniae originating from the biliary system. 2. Cholangitis. 3. Luda urinary tract infection. repeat urine culture has few colonies. 4. History of cirrhosis of the liver. RECOMMENDATIONS: 1. Stop piperacillin/tazobactam. 2. Stop micafungin for Luda glabrata. 3. Okay to discharge with PO Levaquin 750 daily x 7 more days. 4. Follow up with GI.
[2018-01-16] MEDS ORDERED: Lipase/Protease/Amylase 24/76/120 DR Capsule PO SCH (13:00)
--- NOTE | 2018-01-16 13:03 | P.DS ---
Date of admission: 01/10/18 22:56 Primary care physician: Gilmar Matos Brief History from admission: 47-year-old female with past medical history of non-Hodgkin's lymphoma who underwent chemotherapy in 2004. 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 She states yesterday she developed diarrhea and had 5-6 loose bowel movements, non-melena, nonbloody. She also experienced dysuria and nausea without vomiting. She noted she was jaundiced and had abdominal pain.. Today she has been in bed most of the day, had a fever of 103, and now developed "severe" bilateral flank pain. She presented to the ED hypotensive with leukocytosis and bandemia. Left IJ central venous line was placed by ED physician and there was concern regarding left pneumothorax on chest x-ray but follow-up CT showed no pneumothorax. CT abd/pelvis with mild ascites. No e/o urinary obstruction. DS: Medications - Discharge Medications Prescriptions: levofloxacin 750 mg PO DAILY #7 tab [id number] [Creon] 1 cap PO QID #120 cap ondansetron 4 mg PO Q6-8H PRN #9 tab PRN Reason: Nausea oxycodone 5 mg PO Q8HR PRN #21 tab PRN Reason: Acute Pain polyethylene glycol 3350 [Miralax] 17 g PO DAILY #1 bottle potassium chloride 20 meq PO DAILY #30 tab ursodiol [Actigall] 300 mg PO BID #60 cap DS: Summary Hospital Course: Patient was admitted and started on antibiotics. Ultimately grew out Klebsiella and Luda bacteremia and fungemia. Infectious disease helped co- manage antibiotics. Patient underwent ERCP which showed some biliary sludging. LFTs were stabilizing. Patient was tolerating p.o. intake well and bacteremia showed clearance on repeat cultures. Patient was educated that her constipation was contributing to the exacerbation of her abdominal pain and was informed to start taking some laxatives. Patient has met maximal benefit from hospitalization and is clinically stable for discharge. - Time Spent with Patient Total time spent providing and/or coordinating discharge services: Less than 30 minutes - Quality: VTE Deep Vein Thrombosis/Pulmonary Embolism Present on Admission: No Exam Vital signs: Vital Signs 01/15/18 13:36 01/15/18 20:00 01/15/18 22:20 Temperature 97.7 F 98.2 F Pulse Rate 74 89 86 Respiratory Rate 16 18 Blood Pressure 94/64 L 94/64 L 129/84 Pulse Oximetry 94 L 94 L 01/16/18 00:00 01/16/18 04:00 Temperature 98.2 F 98.1 F Pulse Rate 84 82 Respiratory Rate 18 18 Blood Pressure 115/69 100/56 L Pulse Oximetry 95 93 L Intake & Output 01/15/18 01/16/18 01/16/18 18:59 06:59 18:59 Intake Total 1360 / 1360 340 / 340 50 / 50 Output Total 700 / 700 Balance 1360 / 1360 -360 / -360 50 / 50 Weight 55.8 kg Intake: IV 200 / 200 100 / 100 50 / 50 Mycamine Inj 100 MG In NS Inj 100 / 100 100 ML @ 100 mls/hr IV.SIG Q24H DESTINI Rx#:[id number] Zosyn 3.375 GM Premix 50 ML @ 100 / 100 100 / 100 50 / 50 100 mls/hr IV.SIG Q6H DESTINI Rx#: [id number] Oral 360 / 360 240 / 240 Anesthesia Amount 800 / 800 Output: Urine 700 / 700 Other: # Voids 3 2 Date of Last Bowel Movement 01/13/18 01/13/18 # Bowel Movements 0 0 Narrative: Abdomen is soft, mild to moderately tender to palpation, no guarding, Sitting up in bed, no acute distress Results Procedures completed during hospitalization: Left-sided CVL insertion Labs on day of discharge: Labs from last 24 hours 01/16/18 01/16/18 01/16/18 12:01 07:25 03:42 WBC RBC Hgb Hct MCV MCH MCHC RDW Plt Count MPV Prelim Diff (Auto) WBC Differential Seg Neuts % (Manual) Band Neuts % (Manual) Lymphocytes % (Manual) Monocytes % (Manual) Eosinophils % (Manual) Myelocytes % (Man) Abs Neuts (Manual) Differential Comment Platelet Estimate Platelet Morphology Target Cells [place] Bodies Sodium 142 Potassium 3.0 L Chloride 106 Carbon Dioxide 26.6 Anion Gap 9 BUN 5 L Creatinine 0.39 L Estimated GFR Greater than 89 POC Glucose 294 H 71 Random Glucose 172 H Calcium 7.1 L* Prot Corrected Calcium 8.1 L Phosphorus 1.9 L Magnesium 1.6 Total Bilirubin 4.0 H AST 102 H ALT 84 H Alkaline Phosphatase 1079 H Total Protein 5.2 L Albumin 1.3 L 01/16/18 01/16/18 01/15/18 03:42 02:50 22:19 WBC 7.6 RBC 3.54 L Hgb 10.7 L Hct 32.2 L MCV 90.9 MCH 30.2 MCHC 33.3 RDW 15.9 Plt Count 199 MPV 11.4 H Prelim Diff (Auto) Manual diff required WBC Differential Manual diff final Seg Neuts % (Manual) 57 Band Neuts % (Manual) 5 Lymphocytes % (Manual) 17 Monocytes % (Manual) 17 H Eosinophils % (Manual) 2 Myelocytes % (Man) 2 H Abs Neuts (Manual) 4.9 Differential Comment . Platelet Estimate Normal Platelet Morphology Normal Target Cells 2+ H [place] Bodies Present H Sodium Potassium Chloride Carbon Dioxide Anion Gap BUN Creatinine Estimated GFR POC Glucose 202 H 496 H* Random Glucose Calcium Prot Corrected Calcium Phosphorus Magnesium Total Bilirubin AST ALT Alkaline Phosphatase Total Protein Albumin 01/15/18 01/15/18 01/15/18 20:14 16:35 13:19 WBC RBC Hgb Hct MCV MCH MCHC RDW Plt Count MPV Prelim Diff (Auto) WBC Differential Seg Neuts % (Manual) Band Neuts % (Manual) Lymphocytes % (Manual) Monocytes % (Manual) Eosinophils % (Manual) Myelocytes % (Man) Abs Neuts (Manual) Differential Comment Platelet Estimate Platelet Morphology Target Cells [place] Bodies Sodium Potassium Chloride Carbon Dioxide Anion Gap BUN Creatinine Estimated GFR POC Glucose 528 H* 346 H 240 H Random Glucose Calcium Prot Corrected Calcium Phosphorus Magnesium Total Bilirubin AST ALT Alkaline Phosphatase Total Protein Albumin Preliminary micro results at discharge 01/12/18 21:48 Aerobic Blood Culture - Preliminary Blood - Peripheral No growth in 4 days Anaerobic Blood Culture - Preliminary No growth in 4 days 01/12/18 21:20 Aerobic Blood Culture - Preliminary Blood - Peripheral No growth in 4 days - Impressions ITS Impressions Chest X-Ray 01/10/18 21:09 CONCLUSION: Interval placement of left IJ catheter with 1.5 cm lateral pneumothorax on the left side. Chest CT 01/10/18 22:04 CONCLUSION: 1. No evidence of pneumothorax on the left side. Abdomen/Pelvis CT 01/10/18 23:21 CONCLUSION: 1. There are stable findings of hepatic cirrhosis, pneumobilia and probable portal hypertension with prominence of the portal venous system. 2. Mild, diffuse abdominal ascites and mesenteric edema probably due to passive congestion. Small amount of free fluid in the deep pelvis. 3. Stable bilateral lower pole, nonobstructing renal stones. Largest on the left measures 9.5 mm in diameter. 4. No significant change from prior. Cholangiopancreatography MRI 01/13/18 00:00 CONCLUSION: 1. Cirrhosis. 2. Areas of low signal seen in the intrahepatic biliary ducts likely related to pneumobilia. There is a 1 cm filling defect within the common bile duct. This could represent a stone or a focal area of pneumobilia. There is intrahepatic biliary duct dilatation. The gallbladder is nondistended. 3. Bilateral moderate pleural effusions. 4. Mild ascites. 5. Edema in the subcutaneous tissues which could represent anasarca. Liver Ultrasound 01/13/18 00:00 CONCLUSION: 1. Abnormal diffuse gallbladder wall thickening with edema. No stones are visualized and sonographic Raygoza sign is negative suggesting against acute inflammation. The wall thickening/edema may be related to chronic liver disease. 2. Liver demonstrates imaging features characteristic of cirrhosis. No focal lesion is seen. 3. Trace perihepatic free fluid/ascites and right pleural effusion. GI Procedure 01/15/18 00:00 CONCLUSION: Multifocal bile duct strictures which appear nonobstructing at present. The appearance would be consistent with recurrent cholangitis or sclerosing cholangitis. Discharge Plan - Discharge Disposition Patient Disposition: 01 Discharge Home - Discharge Condition Condition: Stable - Discharge Order Discharge Orders: Discharge Order (Routine); Ordered 01/16/18 Ordered By: Frantz Muñiz - Physicians Team Primary Care Provider: Gilmar Matos Attending Provider: Frantz Muñiz Other Providers: Markus Newberry MD ; Joseph Santos MD
[2018-01-16 16:44] VITALS: RESP 17; O2SAT 94
[2018-01-16 16:45] VITALS: BP 115/82; TEMP 99.1
== END 2018-01-16 16:38 | disposition home or self-care (01) ==
LOC: NEPE 17:53 → NEDA 22:56 → HIMC 01-11 00:15 → N04 01-14 14:21
PROVIDERS: ADMIT Hospitalist; ATTEND Hospitalist

== ENCOUNTER 2018-01-31 00:34 | Inpatient (IN) ==
[2018-01-31 01:55] LABS: Hematocrit 38.8 % (35.0-46.0); Hemoglobin 12.5 gm/dL (11.6-15.3); Mean Corpuscular HGB Conc 32.2 % (32.0-36.0); Mean Corpuscular Volume 93.3 fL (80.0-100.0); Mean Platelet Volume 11.5 fL (7.0-11.0); Platelet Count 260 th/mm3 (150-450); Red Blood Count 4.16 mil/mm3 (4.00-5.30); Red Cell Distribution Width 16.3 % (11.6-17.2); White Blood Count 8.3 th/mm3 (4.0-11.0)
[2018-01-31 01:57] LABS: Activated Partial Thrombo Time 25.8 sec (24.3-30.1); INR 1.1 Ratio; Prothrombin Time 11.6 sec (9.8-11.6)
[2018-01-31] MEDS ORDERED: HYDROmorphone PF Inj 0.5 MG/0.5 ML Syringe IV.PUSH ONE (02:06)
--- NOTE | 2018-01-31 02:06 | ED ---
HPI General Chief Complaint: Abdominal Pain Stated Complaint: Fever, right side pain, feet swelling Time Seen by Provider: 01/31/18 01:04 Source: patient Mode of arrival: ambulatory Limitations: no limitations History of Present Illness HPI narrative: 47-year-old female with history of cirrhosis and non-Hodgkin's lymphoma in remission who presents with 1 week and gradually worsening abdominal pain and distention in addition to 3 days of fever. She came tonight because the pain got significantly worse. She did not take her temperature at home. She reports that she does not have a circulation sales representative and she takes no medication for her cirrhosis and ascites. She reports she has been nauseated without vomiting. No diarrhea or bloody bowel movements. No hematemesis. No chest pain or shortness of breath. Related Data Home Medications Medication Instructions Recorded Confirmed insulin glargine [Lantus U-100 30 unit SUB-Q HS 01/24/18 01/31/18 Insulin] insulin aspart U-100 [Novolog 1 sliding scale dose SUB-Q UD 01/31/18 01/31/18 U-100 Insulin aspart] Allergies Allergy/AdvReac Type Severity Reaction Status Date / Time fentanyl Allergy Severe SOB Verified 01/31/18 00:52 gadobenic acid Allergy Severe BREATHING Verified 01/31/18 00:52 PROBLEMS, N/V,CHILLS gadodiamide Allergy Severe BREATHING Verified 01/31/18 00:52 PROBLEMS, N/V,CHILLS gadoteridol Allergy Severe BREATHING Verified 01/31/18 00:52 PROBLEMS, N/V,CHILLS ketorolac Allergy Severe Shortness Verified 01/31/18 00:52 of Breath morphine Allergy Severe SOB Verified 01/31/18 00:52 tramadol Allergy Mild Shortness Verified 01/31/18 00:52 of Breath Gadolinium-Containing AdvReac Severe nauseas Verified 01/31/18 00:52 Contrast Medi /vomiting MRI PRECAUTION AdvReac Severe NAUSEA; Uncoded 01/31/18 00:52 PER PATIENT IT IS A GADOLINIUM ALLERGY KMD 11/25/12 Review of Systems ROS: all other systems reviewed are negative [facility] Medical History Medical History Cirrhosis (Acute) Diabetes (Acute) Hepatomegaly (Acute) Kidney stone (Acute) Non Hodgkin's lymphoma (Acute) Surgical History Surgical History H/O splenectomy (Acute) History of liver biopsy (Acute) Family History Family History Father CAD (coronary artery disease) Social History Social History Substance History: No History of Abuse Second Hand Smoke Exposure: No Smoking Status: Never smoker How Often Do You Have a Drink Containing Alcohol: Never Recent Travel in [facility] within the Last 8 Weeks: No Recent Out of Country Travel within the Last 8 Weeks: No Immunization History Tetanus Immunization: <5 Years Hx Influenza Vaccine This Season: No Exam Narrative Exam Narrative: GENERAL: Chronically ill-appearing 47-year-old woman lying on stretcher in no apparent distress. Her male friend is seated in chair next to bed. SKIN: Focused skin assessment warm/dry. Jaundiced. HEAD: Atraumatic. Normocephalic. EYES: Pupils equal and round. Scleral icterus present. No injection or drainage. ENT: No nasal bleeding or discharge. Mucous membranes pink and moist. NECK: Trachea midline. No JVD. CARDIOVASCULAR: Regular rate and rhythm. No murmur appreciated. RESPIRATORY: No accessory muscle use. Clear to auscultation. Breath sounds equal bilaterally. GASTROINTESTINAL: Abdomen softBut distended with ascites, Generalized tenderness without rebound or guarding, Well-healed splenectomy incision. Hepatomegaly.. MUSCULOSKELETAL: No obvious deformities. No clubbing. No cyanosis. 1+ bilateral pedal edema. NEUROLOGICAL: Awake and alert. No obvious cranial nerve deficits. Motor grossly within normal limits. Normal speech. PSYCHIATRIC: Appropriate mood and affect; insight and judgment normal. Procedures Paracentesis Time Out Performed: Yes Indication: possible spontaneous bacterial peritonitis Procedure: diagnostic paracentesis Location: RLQ Local anesthetic used: lidocaine 1% Amount of anesthesia used (mL): 5 Bed Used: yes, real-time guidance Preparation: sterile prep and drape Amount of fluid obtained (mL): 40 Fluid: cloudy Needle Gauge Used: 18 Post Procedure Exam: awake, alert Patient Tolerated Procedure: well Complications: pain Course Hospital Course: Patient admitted to Dr. Whyte service for further evaluation and treatment. Patient was admitted with CT pending. Initial Documented Vital Signs Temperature 100.7 F H 01/31/18 00:52 Pulse Rate 119 H 01/31/18 00:52 Respiratory Rate 18 01/31/18 00:52 Blood Pressure 125/86 01/31/18 00:52 Pulse Oximetry 95 01/31/18 00:52 Last Documented Vital Signs Temperature 98.8 F 01/31/18 07:57 Pulse Rate 97 H 01/31/18 07:57 Respiratory Rate 18 01/31/18 07:57 Blood Pressure 115/78 01/31/18 07:57 Pulse Oximetry 95 01/31/18 07:57 Medical Decision Making MDM Narrative Medical decision making narrative: 47-year-old woman with generalized abdominal pain and fevers. My chief concern is SBP and therefore I performed a bedside paracentesis immediately after my initial evaluation of the patient. Ascites labs were sent and are pending. Order CT abdomen pelvis in order to rule out small bowel obstruction, perforation, intra-abdominal mass, retroperitoneal hemorrhage, appendicitis or hernia. Patient needs circulation sales representative to manage her cirrhosis and is seems that she has poor knowledge of cirrhosis treatment and poor health literacy in general. She met criteria for sepsis by a service and I treated her with ceftriaxone 2 g IV. She is not hypotensive and had normal lactic acid crystalloid fluid bolus is not mandatory According to CMS surviving sepsis campaign guidelines. 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 Medical Screen Exam Complete: Yes Emergency Medical Condition: Yes Medical Records Medical records reviewed: Yes I reviewed the patient's medical records. Lab Data Result diagrams: 01/31/18 01:20 01/31/18 01:20 POC Results POC Urine Results Negative Lab Results 01/31/18 01/31/18 01/31/18 Range/Units 01:20 01:20 01:20 WBC 8.3 (4.0-11.0) th/mm3 RBC 4.16 (4.00-5.30) mil/mm3 Hgb 12.5 (11.6-15.3) gm/dL Hct 38.8 (35.0-46.0) % MCV 93.3 (80.0-100.0) fL MCH 30.0 (27.0-34.0) pg MCHC 32.2 (32.0-36.0) % RDW 16.3 (11.6-17.2) % Plt Count 260 (150-450) th/mm3 MPV 11.5 H (7.0-11.0) fL Prelim Diff (Auto) Manual diff required WBC Differential Manual diff final Seg Neuts % (Manual) 62 (16-70) % Band Neuts % (Manual) 8 H (0-6) % Lymphocytes % (Manual) 18 (9-44) % Monocytes % (Manual) 11 H (0-8) % Basophils % (Manual) 1 (0-2) % Abs Neuts (Manual) 5.8 (1.8-7.7) th/mm3 Differential Comment . Platelet Estimate Normal (Normal) Platelet Morphology Enlarged H (Normal) Target Cells 1+ H (None) Kelly[place] Bodies Present H (None) PT (9.8-11.6) sec INR Ratio APTT (24.3-30.1) sec Sodium 136 (136-145) meq/L Potassium 3.6 (3.5-5.1) meq/L Chloride 101 (98-107) meq/L Carbon Dioxide 24.6 (21.0-32.0) meq/L Anion Gap 10 (5-15) meq/L BUN 7 (7-18) mg/dL Creatinine 0.68 (0.50-1.00) mg/dL Estimated GFR Greater than 89 (>89) mL/min POC Glucose (68-110) mg/dl Random Glucose 444 H (74-106) mg/dL Lactic Acid 0.9 (0.4-2.0) mmol/L Calcium 7.7 L (8.5-10.1) mg/dL Total Bilirubin 5.6 H (0.2-1.0) mg/dL AST 204 H (15-37) U/L ALT 100 H (10-53) U/L Alkaline Phosphatase 1555 H (45-117) U/L Ammonia (11-32) mcmol/L Lactate Dehydrogenase 275 H (84-246) U/L Total Protein 6.4 (6.4-8.2) g/dL Albumin 1.7 L (3.4-5.0) g/dL Lipase 44 L (73-393) U/L Urine Color (Yellw/Straw) Urine Clarity (Clear) Urine pH (5.0-8.5) Ur Specific [place] (1.002-1.035) Urine Protein (Neg-Trace) mg/dL Urine Glucose (UA) (Negative) mg/dL Urine Ketones (Negative) mg/dL Urine Occult Blood (Negative) Urine Nitrate (Negative) Urine Bilirubin (Negative) Urine Urobilinogen (Less than 2) mg/dL Ur Leukocyte Esterase (Negative) Urine RBC (0-3) /hpf Urine WBC (0-5) /hpf Ur Squamous Epith Cells (0-5) /hpf Urine Bacteria (None) /hpf Urine Mucus (Occasional) /lpf Urine Yeast (None) /hpf Micro UA Comment Ur Microscopic Review Urine Culture Comments Peritoneal RBC (0-0) /mm3 Periton Nuc Cells (0-10) /mm3 Periton Neutrophils % Periton Lymphocytes % Peritoneal Monocytes % [place] Mesothelial % Periton Histiocytes % Peritoneal Fld Comment Peritoneal Tot Protein gm/dL Peritoneal Albumin g/dL Peritoneal LDH U/L Peritoneal Glucose mg/dL 01/31/18 01/31/18 01/31/18 Range/Units 01:20 01:20 02:06 WBC (4.0-11.0) th/mm3 RBC (4.00-5.30) mil/mm3 Hgb (11.6-15.3) gm/dL Hct (35.0-46.0) % MCV (80.0-100.0) fL MCH (27.0-34.0) pg MCHC (32.0-36.0) % RDW (11.6-17.2) % Plt Count (150-450) th/mm3 MPV (7.0-11.0) fL Prelim Diff (Auto) WBC Differential Seg Neuts % (Manual) (16-70) % Band Neuts % (Manual) (0-6) % Lymphocytes % (Manual) (9-44) % Monocytes % (Manual) (0-8) % Basophils % (Manual) (0-2) % Abs Neuts (Manual) (1.8-7.7) th/mm3 Differential Comment Platelet Estimate (Normal) Platelet Morphology (Normal) Target Cells (None) [place] Bodies (None) PT 11.6 (9.8-11.6) sec INR 1.1 Ratio APTT 25.8 (24.3-30.1) sec Sodium (136-145) meq/L Potassium (3.5-5.1) meq/L Chloride (98-107) meq/L Carbon Dioxide (21.0-32.0) meq/L Anion Gap (5-15) meq/L BUN (7-18) mg/dL Creatinine (0.50-1.00) mg/dL Estimated GFR (>89) mL/min POC Glucose (68-110) mg/dl Random Glucose (74-106) mg/dL Lactic Acid (0.4-2.0) mmol/L Calcium (8.5-10.1) mg/dL Total Bilirubin (0.2-1.0) mg/dL AST (15-37) U/L ALT (10-53) U/L Alkaline Phosphatase (45-117) U/L Ammonia Less than 10 L (11-32) mcmol/L Lactate Dehydrogenase (84-246) U/L Total Protein (6.4-8.2) g/dL Albumin (3.4-5.0) g/dL Lipase (73-393) U/L Urine Color (Yellw/Straw) Urine Clarity (Clear) Urine pH (5.0-8.5) Ur Specific [place] (1.002-1.035) Urine Protein (Neg-Trace) mg/dL Urine Glucose (UA) (Negative) mg/dL Urine Ketones (Negative) mg/dL Urine Occult Blood (Negative) Urine Nitrate (Negative) Urine Bilirubin (Negative) Urine Urobilinogen (Less than 2) mg/dL Ur Leukocyte Esterase (Negative) Urine RBC (0-3) /hpf Urine WBC (0-5) /hpf Ur Squamous Epith Cells (0-5) /hpf Urine Bacteria (None) /hpf Urine Mucus (Occasional) /lpf Urine Yeast (None) /hpf Micro UA Comment Ur Microscopic Review Urine Culture Comments Peritoneal RBC 29 H (0-0) /mm3 Periton Nuc Cells 410 H (0-10) /mm3 Periton Neutrophils 3 % Periton Lymphocytes 85 % Peritoneal Monocytes 8 % Periton Mesothelial 1 % Periton Histiocytes 3 % Peritoneal Fld Comment Peritoneal Tot Protein gm/dL Peritoneal Albumin g/dL Peritoneal LDH U/L Peritoneal Glucose mg/dL 01/31/18 01/31/18 01/31/18 Range/Units 02:06 02:15 03:34 WBC (4.0-11.0) th/mm3 RBC (4.00-5.30) mil/mm3 Hgb (11.6-15.3) gm/dL Hct (35.0-46.0) % MCV (80.0-100.0) fL MCH (27.0-34.0) pg MCHC (32.0-36.0) % RDW (11.6-17.2) % Plt Count (150-450) th/mm3 MPV (7.0-11.0) fL Prelim Diff (Auto) WBC Differential Seg Neuts % (Manual) (16-70) % Band Neuts % (Manual) (0-6) % Lymphocytes % (Manual) (9-44) % Monocytes % (Manual) (0-8) % Basophils % (Manual) (0-2) % Abs Neuts (Manual) (1.8-7.7) th/mm3 Differential Comment Platelet Estimate (Normal) Platelet Morphology (Normal) Target Cells (None) [place] Bodies (None) PT (9.8-11.6) sec INR Ratio APTT (24.3-30.1) sec Sodium (136-145) meq/L Potassium (3.5-5.1) meq/L Chloride (98-107) meq/L Carbon Dioxide (21.0-32.0) meq/L Anion Gap (5-15) meq/L BUN (7-18) mg/dL Creatinine (0.50-1.00) mg/dL Estimated GFR (>89) mL/min POC Glucose 374 H (68-110) mg/dl Random Glucose (74-106) mg/dL Lactic Acid (0.4-2.0) mmol/L Calcium (8.5-10.1) mg/dL Total Bilirubin (0.2-1.0) mg/dL AST (15-37) U/L ALT (10-53) U/L Alkaline Phosphatase (45-117) U/L Ammonia (11-32) mcmol/L Lactate Dehydrogenase (84-246) U/L Total Protein (6.4-8.2) g/dL Albumin (3.4-5.0) g/dL Lipase (73-393) U/L Urine Color Sheri (Yellw/Straw) Urine Clarity Hazy H (Clear) Urine pH 6.0 (5.0-8.5) Ur Specific [place] 1.030 (1.002-1.035) Urine Protein Negative (Neg-Trace) mg/dL Urine Glucose (UA) 500 or greater (Negative) mg/dL Urine Ketones Negative (Negative) mg/dL Urine Occult Blood Negative (Negative) Urine Nitrate Negative (Negative) Urine Bilirubin Negative (Negative) Urine Urobilinogen 2.0 H (Less than 2) mg/dL Ur Leukocyte Esterase Trace H (Negative) Urine RBC 11 H (0-3) /hpf Urine WBC 7 H (0-5) /hpf Ur Squamous Epith Cells 11 (0-5) /hpf Urine Bacteria Rare H (None) /hpf Urine Mucus Few H (Occasional) /lpf Urine Yeast Many H (None) /hpf Micro UA Comment Culture not ind Ur Microscopic Review Not Reportable Urine Culture Comments Culture not ind Peritoneal RBC (0-0) /mm3 Periton Nuc Cells (0-10) /mm3 Periton Neutrophils % Periton Lymphocytes % Peritoneal Monocytes % Periton Mesothelial % Periton Histiocytes % Peritoneal Fld Comment Peritoneal Tot Protein 1.2 gm/dL Peritoneal Albumin 0.4 g/dL Peritoneal LDH 58 U/L Peritoneal Glucose 481 mg/dL 01/31/18 01/31/18 Range/Units 04:28 08:07 WBC (4.0-11.0) th/mm3 RBC (4.00-5.30) mil/mm3 Hgb (11.6-15.3) gm/dL Hct (35.0-46.0) % MCV (80.0-100.0) fL MCH (27.0-34.0) pg MCHC (32.0-36.0) % RDW (11.6-17.2) % Plt Count (150-450) th/mm3 MPV (7.0-11.0) fL Prelim Diff (Auto) WBC Differential Seg Neuts % (Manual) (16-70) % Band Neuts % (Manual) (0-6) % Lymphocytes % (Manual) (9-44) % Monocytes % (Manual) (0-8) % Basophils % (Manual) (0-2) % Abs Neuts (Manual) (1.8-7.7) th/mm3 Differential Comment Platelet Estimate (Normal) Platelet Morphology (Normal) Target Cells (None) [place] Bodies (None) PT (9.8-11.6) sec INR Ratio APTT (24.3-30.1) sec Sodium (136-145) meq/L Potassium (3.5-5.1) meq/L Chloride (98-107) meq/L Carbon Dioxide (21.0-32.0) meq/L Anion Gap (5-15) meq/L BUN (7-18) mg/dL Creatinine (0.50-1.00) mg/dL Estimated GFR (>89) mL/min POC Glucose 276 H 196 H (68-110) mg/dl Random Glucose (74-106) mg/dL Lactic Acid (0.4-2.0) mmol/L Calcium (8.5-10.1) mg/dL Total Bilirubin (0.2-1.0) mg/dL AST (15-37) U/L ALT (10-53) U/L Alkaline Phosphatase (45-117) U/L Ammonia (11-32) mcmol/L Lactate Dehydrogenase (84-246) U/L Total Protein (6.4-8.2) g/dL Albumin (3.4-5.0) g/dL Lipase (73-393) U/L Urine Color (Yellw/Straw) Urine Clarity (Clear) Urine pH (5.0-8.5) Ur Specific [place] (1.002-1.035) Urine Protein (Neg-Trace) mg/dL Urine Glucose (UA) (Negative) mg/dL Urine Ketones (Negative) mg/dL Urine Occult Blood (Negative) Urine Nitrate (Negative) Urine Bilirubin (Negative) Urine Urobilinogen (Less than 2) mg/dL Ur Leukocyte Esterase (Negative) Urine RBC (0-3) /hpf Urine WBC (0-5) /hpf Ur Squamous Epith Cells (0-5) /hpf Urine Bacteria (None) /hpf Urine Mucus (Occasional) /lpf Urine Yeast (None) /hpf Micro UA Comment Ur Microscopic Review Urine Culture Comments Peritoneal RBC (0-0) /mm3 Periton Nuc Cells (0-10) /mm3 Periton Neutrophils % Periton Lymphocytes % Peritoneal Monocytes % Periton Mesothelial % Periton Histiocytes % Peritoneal Fld Comment Peritoneal Tot Protein gm/dL Peritoneal Albumin g/dL Peritoneal LDH U/L Peritoneal Glucose mg/dL Imaging Data Radiologist's impression: Abdomen/Pelvis CT 01/31/18 02:07 CONCLUSION: 1. Cirrhotic liver with pneumobilia and focal intrahepatic ductal dilatation in the posterior right lobe of the liver. Findings may reflect sequela of recent biliary intervention or passage of gallstone. The focal bile duct dilatation and pneumobilia in the posterior right lobe is otherwise concerning for cholangitis in the appropriate clinical setting. 2. Moderate amount of ascites with small bilateral pleural effusions and associated airspace consolidation at the lung bases likely reflecting compressive atelectasis. 3. Bilateral nonobstructing calyceal calculi, as above. Discharge Plan Discharge Disposition Patient Disposition: 30 Still Patient Discharge Condition Condition: Fair Discharge Details Diagnosis: Common bile duct dilatation, Pneumobilia, Sepsis Physicians Team ED Provider: Doug Llamas Primary Care Provider: Gilmar Matos Attending Provider: Kelsie Lofton Discharge Interventions Interventions: ED Discharge Assessment Last Done: 01/31/18 03:58 Status ED Status: Left Department Discharge Information Discharge Date/Time: 01/31/18 03:59
[2018-01-31 02:07] LABS: Alanine Aminotransferase 100 U/L (10-53); Albumin 1.7 g/dL (3.4-5.0); Alkaline Phosphatase 1555 U/L (45-117); Anion Gap 10 meq/L (5-15); Aspartate Aminotransferase 204 U/L (15-37); Blood Urea Nitrogen 7 mg/dL (7-18); Calcium 7.7 mg/dL (8.5-10.1); Carbon Dioxide 24.6 meq/L (21.0-32.0); Chloride 101 meq/L (98-107); Glomerular Filtration Rate Greater Than 89 mL/min (>89); Glucose,Random 444 mg/dL (74-106); Lactate Dehydrogenase 275 U/L (84-246); Lipase 44 U/L (73-393); Potassium 3.6 meq/L (3.5-5.1); Sodium 136 meq/L (136-145); Total Protein 6.4 g/dL (6.4-8.2)
[2018-01-31] MEDS ORDERED: HYDROmorphone PF Inj 2 MG/ML Vial IV.PUSH ONE (02:30)
[2018-01-31] MEDS ORDERED: Sodium Chlor 0.9% Inj 500 ML IV.SIG SCH (03:00)
[2018-01-31 03:02] LABS: Bacteria,Urine Rare /hpf; Bilirubin,Urine Negative (Negative); Clarity,Urine Hazy (Clear); Color,Urine Amber (Yellw/Straw); Glucose,Urine (UA) 500 or Greater mg/dL (Negative); Leukocyte Esterase,Urine Trace (Negative); Mucus,Urine Few /lpf (Occasional); Nitrite,Urine Negative (Negative); Squamous Epithelial Cell,Urine 11 /hpf (0-5)
[2018-01-31] MEDS ORDERED: Acetaminophen 325 MG Tablet PO PRN (03:11)
[2018-01-31] MEDS ORDERED: Dextrose 50% in Water 50 ML Vial IV.PUSH PRN (03:14)
[2018-01-31 03:24] LABS: Total Protein,Peritoneal Fluid 1.2 gm/dL
[2018-01-31 04:04] LABS: Howell-Jolly Bodies Present; Lymphocytes 18 % (9-44); Monocytes 11 % (0-8); Platelet Estimate Normal (Normal); Target Cells 1+
[2018-01-31 04:27] LABS: RBC,Peritoneal Fluid 29 /mm3 (0-0)
[2018-01-31 04:29] LABS: Mesothelial,Peritoneal Fluid 1 %; Neutrophils,Peritoneal Fluid 3 %
[2018-01-31] MEDS: HYDROmorphone PF Inj 2 MG/ML Vial IV.PUSH PRN ×5 (04:52→22:51)
[2018-01-31] MEDS: Insulin NovoLOG Aspart Correctional Sugar Inj SQ SCH ×4 (08:49→21:23)
[2018-01-31] MEDS: Insulin Detemir Inj 1,000 UNIT/10 ML Vial SQ SCH (21:23)
[2018-02-01 05:55] LABS: Hematocrit 31.4 % (35.0-46.0); Hemoglobin 10.4 gm/dL (11.6-15.3); Mean Corpuscular Hemoglobin 29.7 pg (27.0-34.0); Mean Corpuscular Volume 90.2 fL (80.0-100.0); Mean Platelet Volume 12.2 fL (7.0-11.0); Platelet Count 222 th/mm3 (150-450); Red Blood Count 3.48 mil/mm3 (4.00-5.30); Red Cell Distribution Width 16.2 % (11.6-17.2); White Blood Count 8.6 th/mm3 (4.0-11.0)
[2018-02-01 06:25] LABS: Anion Gap 12 meq/L (5-15); Blood Urea Nitrogen 11 mg/dL (7-18); Calcium 7.4 mg/dL (8.5-10.1); Carbon Dioxide 24.5 meq/L (21.0-32.0); Chloride 104 meq/L (98-107); Glomerular Filtration Rate Greater Than 89 mL/min (>89); Glucose,Random 66 mg/dL (74-106); Sodium 140 meq/L (136-145)
[2018-02-01 06:33] LABS: Potassium 2.9 meq/L (3.5-5.1)
[2018-02-01 06:40] LABS: Eosinophils 1 % (0-4); Lymphocytes 18 % (9-44); Monocytes 8 % (0-8)
[2018-02-01 06:41] LABS: Howell-Jolly Bodies Present; Ovalocytes 1+; Platelet Estimate Normal (Normal); Platelet Morphology Normal (Normal); Target Cells 3+
[2018-02-01 07:06] LABS: Total Protein 5.2 g/dL (6.4-8.2)
[2018-02-01] MEDS: Insulin NovoLOG Aspart Correctional Sugar Inj SQ SCH ×4 (08:34→20:45)
[2018-02-01] MEDS: HYDROmorphone PF Inj 2 MG/ML Vial IV.PUSH PRN ×4 (09:31→22:39)
[2018-02-01] MEDS ORDERED: Magnesium Oxide 400 MG Tablet PO ONE (10:00)
[2018-02-01] MEDS: Insulin Detemir Inj 1,000 UNIT/10 ML Vial SQ SCH (20:45)
[2018-02-02] MEDS: HYDROmorphone PF Inj 2 MG/ML Vial IV.PUSH PRN ×5 (04:24→20:42)
[2018-02-02 05:57] LABS: Hematocrit 33.8 % (35.0-46.0); Hemoglobin 11.1 gm/dL (11.6-15.3); Mean Corpuscular HGB Conc 32.9 % (32.0-36.0); Mean Corpuscular Hemoglobin 30.1 pg (27.0-34.0); Mean Corpuscular Volume 91.5 fL (80.0-100.0); Mean Platelet Volume 11.9 fL (7.0-11.0); Platelet Count 235 th/mm3 (150-450); Red Blood Count 3.69 mil/mm3 (4.00-5.30); Red Cell Distribution Width 15.7 % (11.6-17.2); White Blood Count 7.5 th/mm3 (4.0-11.0)
[2018-02-02 06:27] LABS: Anion Gap 11 meq/L (5-15); Blood Urea Nitrogen 12 mg/dL (7-18); Calcium 7.1 mg/dL (8.5-10.1); Carbon Dioxide 26.5 meq/L (21.0-32.0); Chloride 105 meq/L (98-107); Glomerular Filtration Rate Greater Than 89 mL/min (>89); Glucose,Random 99 mg/dL (74-106); Magnesium 1.5 mg/dL (1.5-2.5); Potassium 3.2 meq/L (3.5-5.1); Sodium 142 meq/L (136-145)
[2018-02-02 06:43] LABS: Total Protein 5.3 g/dL (6.4-8.2)
[2018-02-02 07:22] LABS: Eosinophils 2 % (0-4); Lymphocytes 10 % (9-44); Metamyelocytes 1 % (0-1); Monocytes 8 % (0-8); Platelet Estimate Normal (Normal); Platelet Morphology Normal (Normal)
[2018-02-02 07:23] LABS: Howell-Jolly Bodies Present; Target Cells 2+
[2018-02-02] MEDS: Insulin NovoLOG Aspart Correctional Sugar Inj SQ SCH ×4 (07:50→20:40)
[2018-02-02] MEDS ORDERED: Magnesium Oxide 400 MG Tablet PO ONE (14:24)
[2018-02-02] MEDS: Insulin Detemir Inj 1,000 UNIT/10 ML Vial SQ SCH (20:40)
[2018-02-03] MEDS: HYDROmorphone PF Inj 2 MG/ML Vial IV.PUSH PRN ×5 (00:48→22:31)
[2018-02-03] MEDS: Insulin NovoLOG Aspart Correctional Sugar Inj SQ SCH ×4 (09:07→22:45)
[2018-02-03] MEDS: Albumin Human 25% Inj 100 ML IV.SIG SCH (22:30)
[2018-02-03] MEDS: Insulin Detemir Inj 1,000 UNIT/10 ML Vial SQ SCH (22:45)
[2018-02-04] MEDS: HYDROmorphone PF Inj 2 MG/ML Vial IV.PUSH PRN ×5 (02:34→20:32)
[2018-02-04] MEDS: Albumin Human 25% Inj 100 ML IV.SIG SCH ×4 (06:28→21:13)
[2018-02-04 06:57] LABS: Hematocrit 31.2 % (35.0-46.0); Hemoglobin 10.2 gm/dL (11.6-15.3); Mean Corpuscular HGB Conc 32.7 % (32.0-36.0); Mean Corpuscular Hemoglobin 29.6 pg (27.0-34.0); Mean Corpuscular Volume 90.6 fL (80.0-100.0); Mean Platelet Volume 11.2 fL (7.0-11.0); Platelet Count 302 th/mm3 (150-450); Red Blood Count 3.44 mil/mm3 (4.00-5.30); Red Cell Distribution Width 16.1 % (11.6-17.2); White Blood Count 6.7 th/mm3 (4.0-11.0)
[2018-02-04 07:01] LABS: INR 1.1 Ratio; Prothrombin Time 11.2 sec (9.8-11.6)
[2018-02-04 07:49] LABS: Alanine Aminotransferase 73 U/L (10-53); Albumin 1.6 g/dL (3.4-5.0); Alkaline Phosphatase 1246 U/L (45-117); Anion Gap 11 meq/L (5-15); Aspartate Aminotransferase 158 U/L (15-37); Blood Urea Nitrogen 9 mg/dL (7-18); Calcium 7.2 mg/dL (8.5-10.1); Carbon Dioxide 26.3 meq/L (21.0-32.0); Chloride 104 meq/L (98-107); Glomerular Filtration Rate Greater Than 89 mL/min (>89); Glucose,Random 129 mg/dL (74-106); Sodium 141 meq/L (136-145); Total Protein 5.5 g/dL (6.4-8.2)
[2018-02-04 07:56] LABS: Potassium 2.8 meq/L (3.5-5.1)
[2018-02-04 08:20] LABS: Eosinophils 3 % (0-4); Howell-Jolly Bodies Present; Lymphocytes 22 % (9-44); Monocytes 3 % (0-8); Platelet Estimate Normal (Normal); Target Cells 2+
[2018-02-04] MEDS: Insulin NovoLOG Aspart Correctional Sugar Inj SQ SCH ×4 (09:05→20:46)
[2018-02-04] MEDS: Potassium Chlor 20 mEq Premix 20 MEQ/100 ML PIGGYBACK IV.SIG SCH ×2 (10:25→17:43)
[2018-02-04] MEDS: Insulin Detemir Inj 1,000 UNIT/10 ML Vial SQ SCH (20:46)
[2018-02-05] MEDS: HYDROmorphone PF Inj 2 MG/ML Vial IV.PUSH PRN ×6 (01:04→21:43)
[2018-02-05] MEDS: Albumin Human 25% Inj 100 ML IV.SIG SCH ×3 (05:05→21:42)
[2018-02-05] MEDS: Insulin NovoLOG Aspart Correctional Sugar Inj SQ SCH ×4 (09:23→21:42)
[2018-02-05 13:37] LABS: Anion Gap 11 meq/L (5-15); Blood Urea Nitrogen 9 mg/dL (7-18); Calcium 7.8 mg/dL (8.5-10.1); Carbon Dioxide 26.5 meq/L (21.0-32.0); Chloride 102 meq/L (98-107); Glomerular Filtration Rate Greater Than 89 mL/min (>89); Glucose,Random 161 mg/dL (74-106); Potassium 3.3 meq/L (3.5-5.1); Sodium 139 meq/L (136-145)
[2018-02-05] MEDS: Insulin Detemir Inj 1,000 UNIT/10 ML Vial SQ SCH (21:42)
[2018-02-06] MEDS: HYDROmorphone PF Inj 2 MG/ML Vial IV.PUSH PRN ×6 (02:05→21:42)
[2018-02-06] MEDS: Albumin Human 25% Inj 100 ML IV.SIG SCH ×3 (06:03→21:41)
[2018-02-06 07:39] LABS: Hematocrit 31.2 % (35.0-46.0); Hemoglobin 10.3 gm/dL (11.6-15.3); Mean Corpuscular Hemoglobin 29.7 pg (27.0-34.0); Mean Corpuscular Volume 89.9 fL (80.0-100.0); Mean Platelet Volume 11.3 fL (7.0-11.0); Platelet Count 348 th/mm3 (150-450); Red Blood Count 3.46 mil/mm3 (4.00-5.30); White Blood Count 8.1 th/mm3 (4.0-11.0)
[2018-02-06 07:59] LABS: Alanine Aminotransferase 67 U/L (10-53); Albumin 2.8 g/dL (3.4-5.0); Anion Gap 8 meq/L (5-15); Aspartate Aminotransferase 136 U/L (15-37); Blood Urea Nitrogen 12 mg/dL (7-18); Calcium 7.8 mg/dL (8.5-10.1); Carbon Dioxide 25.8 meq/L (21.0-32.0); Chloride 104 meq/L (98-107); Glomerular Filtration Rate Greater Than 89 mL/min (>89); Glucose,Random 284 mg/dL (74-106); Potassium 3.2 meq/L (3.5-5.1); Sodium 138 meq/L (136-145)
[2018-02-06] MEDS: Insulin NovoLOG Aspart Correctional Sugar Inj SQ SCH ×4 (08:02→21:49)
[2018-02-06 08:06] LABS: Alkaline Phosphatase 1071 U/L (45-117); Total Protein 6.3 g/dL (6.4-8.2)
[2018-02-06 08:56] LABS: Eosinophils 1 % (0-4); Howell-Jolly Bodies Present; Lymphocytes 16 % (9-44); Monocytes 14 % (0-8); Myelocytes 3 % (0-0); Platelet Estimate Normal (Normal); Tallied Nucleated RBC 1 (0-0); Target Cells 2+
[2018-02-06] MEDS: Insulin Detemir Inj 1,000 UNIT/10 ML Vial SQ SCH (21:49)
[2018-02-07] MEDS: HYDROmorphone PF Inj 2 MG/ML Vial IV.PUSH PRN ×6 (01:32→22:34)
[2018-02-07 05:24] LABS: Hematocrit 30.3 % (35.0-46.0); Hemoglobin 10.2 gm/dL (11.6-15.3); Mean Corpuscular HGB Conc 33.6 % (32.0-36.0); Mean Corpuscular Hemoglobin 29.8 pg (27.0-34.0); Mean Corpuscular Volume 88.7 fL (80.0-100.0); Mean Platelet Volume 10.9 fL (7.0-11.0); Platelet Count 360 th/mm3 (150-450); Red Blood Count 3.42 mil/mm3 (4.00-5.30); Red Cell Distribution Width 15.8 % (11.6-17.2); White Blood Count 8.6 th/mm3 (4.0-11.0)
[2018-02-07 05:55] LABS: Alanine Aminotransferase 60 U/L (10-53); Albumin 2.9 g/dL (3.4-5.0); Alkaline Phosphatase 985 U/L (45-117); Anion Gap 9 meq/L (5-15); Aspartate Aminotransferase 120 U/L (15-37); Blood Urea Nitrogen 13 mg/dL (7-18); Calcium 7.8 mg/dL (8.5-10.1); Carbon Dioxide 27.2 meq/L (21.0-32.0); Chloride 104 meq/L (98-107); Glomerular Filtration Rate Greater Than 89 mL/min (>89); Glucose,Random 189 mg/dL (74-106); Sodium 140 meq/L (136-145); Total Protein 6.1 g/dL (6.4-8.2)
[2018-02-07 06:02] LABS: Potassium 2.9 meq/L (3.5-5.1)
[2018-02-07] MEDS ORDERED: Potassium Chloride 25 MEQ Effervescent Tablet PO ONE (06:21)
[2018-02-07 06:49] LABS: Eosinophils 2 % (0-4); Lymphocytes 7 % (9-44); Monocytes 13 % (0-8); Platelet Estimate Normal (Normal); Platelet Morphology Normal (Normal)
[2018-02-07 06:50] LABS: Howell-Jolly Bodies Present; Target Cells 2+
[2018-02-07] MEDS: Insulin NovoLOG Aspart Correctional Sugar Inj SQ SCH ×4 (10:11→21:13)
[2018-02-07] MEDS: Potassium Chlor 10 mEq Premix 10 MEQ/100 ML PIGGYBACK IV.SIG SCH ×3 (16:57→21:05)
[2018-02-07 20:19] LABS: INR 1.1 Ratio
[2018-02-07] MEDS: Insulin Detemir Inj 1,000 UNIT/10 ML Vial SQ SCH (21:13)
[2018-02-08] MEDS: Potassium Chlor 10 mEq Premix 10 MEQ/100 ML PIGGYBACK IV.SIG SCH ×2 (00:40→01:43)
[2018-02-08] MEDS: HYDROmorphone PF Inj 2 MG/ML Vial IV.PUSH PRN ×2 (02:38→06:35)
[2018-02-08 06:23] LABS: Anion Gap 10 meq/L (5-15); Blood Urea Nitrogen 13 mg/dL (7-18); Calcium 7.6 mg/dL (8.5-10.1); Carbon Dioxide 25.8 meq/L (21.0-32.0); Chloride 108 meq/L (98-107); Glomerular Filtration Rate Greater Than 89 mL/min (>89); Glucose,Random 84 mg/dL (74-106); Potassium 3.4 meq/L (3.5-5.1); Sodium 144 meq/L (136-145)
[2018-02-08] MEDS: Insulin NovoLOG Aspart Correctional Sugar Inj SQ SCH (09:40)
== END 2018-02-08 10:49 | disposition home or self-care (01) ==
LOC: NEPC 00:34 → NEDA 02:47 → N07 04:04
PROVIDERS: ADMIT Hospitalist; ATTEND Hospitalist

== ENCOUNTER 2018-03-04 17:39 | Inpatient (IN) ==
[2018-03-04] MEDS ORDERED: Acetaminophen 325 MG Tablet PO ONE (19:15)
[2018-03-04] MEDS ORDERED: Sod Chloride 0.9% Inj 1,000 ML IV.SIG ONE (19:15)
[2018-03-04] MEDS ORDERED: Piperacil/Tazo 3.375 GM Premix 50 ML IV.SIG ONE (19:15)
[2018-03-04] MEDS ORDERED: Vancomycin Inj 1 GM/200 ML PIGGYBACK IV.SIG ONE (19:15)
[2018-03-04] MEDS ORDERED: HYDROmorphone PF Inj 2 MG/ML Vial IV.PUSH ONE (19:23)
--- NOTE | 2018-03-04 19:41 | ED ---
HPI General Chief complaint: Abdominal Pain Stated complaint: Fever 103.2 Time Seen by Provider: 03/04/18 19:13 Source: patient Mode of arrival: ambulatory Limitations: no limitations History of Present Illness HPI narrative: The patient is a 47 year old female who presents to the [facility] emergency department with a history of developing a fever today with a T- max of 103 at home. The patient reports that she was just recently evaluated in the emergency department last night and discharged home. 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 The patient has had recurrent ascites over the last few months. She reports that her last paracentesis was done in January. She reports that over the last week she has had increasing abdominal pain in the right side of the abdomen that radiates to the right shoulder. She reports that she has had nausea and vomiting twice today. She reports that over the last 2 days she is also had diarrhea 2 times per day. She denies having any blood in her stool or black or tarry stools. She reports having darkening of her urine and pain with urination, however no urinary frequency or urgency. The patient's primary care physician is Dr. Matos. The patient has an appointment with a GI doctor at [facility] in [place], however she has not had the appointment yet. She denies taking anything for pain at home. On review of systems otherwise, the patient denies having any cough, congestion, neck pain, chest pain, shortness of breath, or neurologic symptoms. Related Data Home Medications Medication Instructions Recorded Confirmed insulin glargine [Lantus U-100 25 unit SUB-Q HS 01/24/18 03/04/18 Insulin] insulin aspart U-100 [Novolog 1 sliding scale dose SUB-Q UD 01/31/18 03/04/18 U-100 Insulin aspart] Allergies Allergy/AdvReac Type Severity Reaction Status Date / Time fentanyl Allergy Severe SOB Verified 03/04/18 18:24 gadobenic acid Allergy Severe BREATHING Verified 03/04/18 18:24 PROBLEMS, N/V,CHILLS gadodiamide Allergy Severe BREATHING Verified 03/04/18 18:24 PROBLEMS, N/V,CHILLS gadoteridol Allergy Severe BREATHING Verified 03/04/18 18:24 PROBLEMS, N/V,CHILLS ketorolac Allergy Severe Shortness Verified 03/04/18 18:24 of Breath morphine Allergy Severe SOB Verified 03/04/18 18:24 tramadol Allergy Mild Shortness Verified 03/04/18 18:24 of Breath Gadolinium-Containing AdvReac Severe nauseas Verified 03/04/18 18:24 Contrast Medi /vomiting MRI PRECAUTION AdvReac Severe NAUSEA; Uncoded 03/04/18 18:24 PER PATIENT IT IS A GADOLINIUM ALLERGY D 11/25/12 Review of Systems ROS: all other systems reviewed are negative [facility] Medical History Medical History Cirrhosis (Acute) Diabetes (Acute) Gallstones (Acute) Hepatomegaly (Acute) Kidney stone (Acute) Non Hodgkin's lymphoma (Acute) Surgical History Surgical History H/O splenectomy (Acute) History of liver biopsy (Acute) Family History Family History Father CAD (coronary artery disease) Social History Social History Substance History: No History of Abuse Second Hand Smoke Exposure: No Smoking Status: Never smoker Tobacco Type: Cigarettes How Often Do You Have a Drink Containing Alcohol: Never Recent Travel in [facility] within the Last 8 Weeks: No Recent Out of Country Travel within the Last 8 Weeks: No Immunization History Tetanus Immunization: <5 Years Exam Const General: cooperative, well developed and acute distress (Related to reported abdominal pain) mild Nutritional Appearance: well nourished Orientation: alert, awake and oriented x3 HENMT Head: normocephalic and atraumatic Nose: no nasal discharge and no epistaxis Mouth: other (Tacky mucous membranes.) Eyes Sclera: normal sclerae Pupils: PERRL Neck Neck: no meningeal signs, trachea midline and no JVD Resp Effort & Inspection: no use of accessory muscles Auscultation: clear to auscultation bilaterally Cardio Rate: tachycardic Rhythm: regular rhythm Heart Sounds: no gallops, no murmurs and no rubs GI Inspection: distended Palpation: soft, no hepatosplenomegaly, no guarding, not rigid and tender (The patient reports having tenderness on palpation in the right upper and lower quadrant on examination. Patient is mildly distended. The patient has no significant fluid wave noted.) in the RLQ and in the RUQ; not in the epigastrum , not in the LLQ, not in the LUQ, not at McBurney's point, Raygoza's sign negative and with no rebound tenderness Auscultation: normal bowel sounds Back/Spine/Pelvis Back: CVA tenderness (Right-sided CVA tenderness on palpation.) Skin General: dry skin (warm) Neuro General: alert, awake and oriented x3 Cranial Nerves: CN's II-XI intact bilaterally Speech: speech normal Motor: strength 5/5 throughout, no movement abnormalities noted, no tremors and No asterixis Sensory Exam: no sensory deficits noted Extrem General: normal to inspection (2+ pulses in all 4 extremities.), no calf tenderness, no clubbing, no cyanosis and edema (Trace to 1+ bilateral lower extremity swelling noted.) Laterality: bilaterally Psych Mood: congruent mood Affect: normal affect Judgment: judgment good Course Initial Documented Vital Signs Temperature 102.4 F H 03/04/18 17:45 Pulse Rate 127 H 03/04/18 17:45 Respiratory Rate 18 03/04/18 17:45 Blood Pressure 129/73 03/04/18 17:45 Pulse Oximetry 100 03/04/18 17:45 Last Documented Vital Signs Temperature 97.8 F 03/05/18 04:00 Pulse Rate 75 03/05/18 04:00 Respiratory Rate 19 03/05/18 04:00 Blood Pressure 87/56 L 03/05/18 04:00 Pulse Oximetry 97 03/05/18 04:00 Medical Decision Making MDM Narrative Medical decision making narrative: During the course of the patient's emergency department visit, the patient's history, examination, and differential diagnosis were reviewed with the patient. The patient was placed on a night monitor with oximetry and frequent blood pressure monitoring. The patient had IV access obtained and blood work sent for analysis. Diagnostic evaluation is started regarding the patient's febrile illness and abdominal pain. The patient was initially provided normal saline 1 L IV fluid bolus, broad- spectrum antibiotic coverage to include Zosyn and vancomycin. The patient was given Tylenol for fever. The patient's diagnostic studies are remarkable for a white count of 12.9, hemoglobin 11.2, platelets 302 with 95 neutrophils, PT 10.9, PTT 27, chemistry is remarkable for a sodium of 133, creatinine 0.47, glucose 464. The patient was given regular insulin 9 units subcutaneously x1. Lactic acid was within normal limits, calcium 8.1, AST 152, total bilirubin 5.4, ALT 123, alk phos 1557 , cardiac enzymes within normal limits, lipase within normal limits. Urinalysis shows 500 or greater glucose, 25 RBCs, many yeast otherwise unremarkable. A chest x-ray shows suspected left lung atelectasis. The patient's case including history, pertinent physical examination findings, and laboratory studies were discussed with Dr. Whyte. It was agreed that the patient would be admitted to the hospitalist service. The patient's results were discussed with the patient, including the plan of care. I explained that further testing and/ or monitoring is indicated based on the patient's history, examination, and/ or laboratory findings. Therefore, I recommended admission for additional evaluation. The patient expressed understanding and was agreeable with this plan. The patient was admitted to the hospital in guarded condition and sent to a bed under the care of the [facility] service. Medical Screen Exam Complete: Yes Emergency Medical Condition: Yes Differential Diagnosis Differential Diagnosis: Pneumonia, versus pyelonephritis, versus spontaneous bacterial peritonitis, versus sepsis of undetermined origin Medical Records Medical records reviewed: Yes I reviewed the patient's medical records. Lab Data Lab results reviewed: Yes I reviewed the patient's lab results. Result diagrams: 03/05/18 06:42 03/04/18 20:10 POC Results POC Urine Results Negative Lab Results 03/04/18 03/04/18 03/04/18 Range/Units 20:10 20:10 20:10 WBC 12.9 H (4.0-11.0) th/mm3 RBC 3.88 L (4.00-5.30) mil/mm3 Hgb 11.2 L (11.6-15.3) gm/dL Hct 35.0 (35.0-46.0) % MCV 90.3 (80.0-100.0) fL MCH 28.9 (27.0-34.0) pg MCHC 32.0 (32.0-36.0) % RDW 18.1 H (11.6-17.2) % Plt Count 302 (150-450) th/mm3 MPV 11.6 H (7.0-11.0) fL Prelim Diff (Auto) Manual diff required WBC Differential Manual diff final Seg Neuts % (Manual) 95 H (16-70) % Band Neuts % (Manual) 2 (0-6) % Monocytes % (Manual) 1 (0-8) % Basophils % (Manual) 1 (0-2) % Metamyelocytes % (Man) 1 (0-1) % Abs Neuts (Manual) 12.6 H (1.8-7.7) th/mm3 Nucleated RBCs/100 WBC 1 H (0-0) /100 WBC Differential Comment . Platelet Estimate Normal (Normal) Platelet Morphology Normal (Normal) Target Cells 2+ H (None) [place] Bodies Present H (None) PT 10.9 (9.8-11.6) sec INR 1.1 Ratio APTT 27.0 (24.3-30.1) sec Sodium 133 L (136-145) meq/L Potassium 3.9 (3.5-5.1) meq/L Chloride 99 (98-107) meq/L Carbon Dioxide 21.8 (21.0-32.0) meq/L Anion Gap 12 (5-15) meq/L BUN 7 (7-18) mg/dL Creatinine 0.47 L (0.50-1.00) mg/dL Estimated GFR Greater than 89 (>89) mL/min POC Glucose (68-110) mg/dl Random Glucose 464 H* (74-106) mg/dL Lactic Acid (0.4-2.0) mmol/L Calcium 8.1 L (8.5-10.1) mg/dL Magnesium 1.6 (1.5-2.5) mg/dL Total Bilirubin 5.4 H (0.2-1.0) mg/dL AST 192 H (15-37) U/L ALT 123 H (10-53) U/L Alkaline Phosphatase 1557 H (45-117) U/L Ammonia (11-32) mcmol/L Total Creatine Kinase 119 (26-192) U/L CK-MB (CK-2) Less than 1.0 (0.5-3.6) ng/mL Troponin I Less than 0.02 L (0.02-0.05) ng/mL Total Protein 6.3 L D (6.4-8.2) g/dL Albumin 1.9 L (3.4-5.0) g/dL Lipase 61 L (73-393) U/L Urine Color (Yellw/Straw) Urine Clarity (Clear) Urine pH (5.0-8.5) Ur Specific [place] (1.002-1.035) Urine Protein (Neg-Trace) mg/dL Urine Glucose (UA) (Negative) mg/dL Urine Ketones (Negative) mg/dL Urine Occult Blood (Negative) Urine Nitrate (Negative) Urine Bilirubin (Negative) Urine Urobilinogen (Less than 2) mg/dL Ur Leukocyte Esterase (Negative) Urine RBC (0-3) /hpf Urine WBC (0-5) /hpf Ur Squamous Epith Cells (0-5) /hpf Urine Yeast (None) /hpf Micro UA Comment Ur Microscopic Review Urine Culture Comments 03/04/18 03/04/18 03/04/18 Range/Units 20:10 20:10 20:10 WBC (4.0-11.0) th/mm3 RBC (4.00-5.30) mil/mm3 Hgb (11.6-15.3) gm/dL Hct (35.0-46.0) % MCV (80.0-100.0) fL MCH (27.0-34.0) pg MCHC (32.0-36.0) % RDW (11.6-17.2) % Plt Count (150-450) th/mm3 MPV (7.0-11.0) fL Prelim Diff (Auto) WBC Differential Seg Neuts % (Manual) (16-70) % Band Neuts % (Manual) (0-6) % Monocytes % (Manual) (0-8) % Basophils % (Manual) (0-2) % Metamyelocytes % (Man) (0-1) % Abs Neuts (Manual) (1.8-7.7) th/mm3 Nucleated RBCs/100 WBC (0-0) /100 WBC Differential Comment Platelet Estimate (Normal) Platelet Morphology (Normal) Target Cells (None) [place] Bodies (None) PT (9.8-11.6) sec INR Ratio APTT (24.3-30.1) sec Sodium (136-145) meq/L Potassium (3.5-5.1) meq/L Chloride (98-107) meq/L Carbon Dioxide (21.0-32.0) meq/L Anion Gap (5-15) meq/L BUN (7-18) mg/dL Creatinine (0.50-1.00) mg/dL Estimated GFR (>89) mL/min POC Glucose (68-110) mg/dl Random Glucose (74-106) mg/dL Lactic Acid 1.6 (0.4-2.0) mmol/L Calcium (8.5-10.1) mg/dL Magnesium (1.5-2.5) mg/dL Total Bilirubin (0.2-1.0) mg/dL AST (15-37) U/L ALT (10-53) U/L Alkaline Phosphatase (45-117) U/L Ammonia Less than 10 L (11-32) mcmol/L Total Creatine Kinase (26-192) U/L CK-MB (CK-2) (0.5-3.6) ng/mL Troponin I (0.02-0.05) ng/mL Total Protein (6.4-8.2) g/dL Albumin (3.4-5.0) g/dL Lipase (73-393) U/L Urine Color Yellow (Yellw/Straw) Urine Clarity Hazy H (Clear) Urine pH 6.0 (5.0-8.5) Ur Specific [place] 1.028 (1.002-1.035) Urine Protein Negative (Neg-Trace) mg/dL Urine Glucose (UA) 500 or greater (Negative) mg/dL Urine Ketones Negative (Negative) mg/dL Urine Occult Blood Negative (Negative) Urine Nitrate Negative (Negative) Urine Bilirubin Negative (Negative) Urine Urobilinogen Less than 2 (Less than 2) mg/dL Ur Leukocyte Esterase Negative (Negative) Urine RBC 25 H (0-3) /hpf Urine WBC Less than 1 (0-5) /hpf Ur Squamous Epith Cells 6 (0-5) /hpf Urine Yeast Many H (None) /hpf Micro UA Comment Culture not ind Ur Microscopic Review Not Reportable Urine Culture Comments Culture not ind 03/05/18 03/05/18 03/05/18 Range/Units 03:56 06:42 06:42 WBC 12.0 H (4.0-11.0) th/mm3 RBC 3.26 L (4.00-5.30) mil/mm3 Hgb 9.4 L (11.6-15.3) gm/dL Hct 28.8 L (35.0-46.0) % MCV 88.3 (80.0-100.0) fL MCH 28.9 (27.0-34.0) pg MCHC 32.7 (32.0-36.0) % RDW 17.7 H (11.6-17.2) % Plt Count 264 (150-450) th/mm3 MPV 11.1 H (7.0-11.0) fL Prelim Diff (Auto) Manual diff required WBC Differential Seg Neuts % (Manual) (16-70) % Band Neuts % (Manual) (0-6) % Monocytes % (Manual) (0-8) % Basophils % (Manual) (0-2) % Metamyelocytes % (Man) (0-1) % Abs Neuts (Manual) (1.8-7.7) th/mm3 Nucleated RBCs/100 WBC (0-0) /100 WBC Differential Comment . Platelet Estimate (Normal) Platelet Morphology (Normal) Target Cells (None) [place] Bodies (None) PT 11.5 (9.8-11.6) sec INR 1.1 Ratio APTT (24.3-30.1) sec Sodium (136-145) meq/L Potassium (3.5-5.1) meq/L Chloride (98-107) meq/L Carbon Dioxide (21.0-32.0) meq/L Anion Gap (5-15) meq/L BUN (7-18) mg/dL Creatinine (0.50-1.00) mg/dL Estimated GFR (>89) mL/min POC Glucose 200 H (68-110) mg/dl Random Glucose (74-106) mg/dL Lactic Acid (0.4-2.0) mmol/L Calcium (8.5-10.1) mg/dL Magnesium (1.5-2.5) mg/dL Total Bilirubin (0.2-1.0) mg/dL AST (15-37) U/L ALT (10-53) U/L Alkaline Phosphatase (45-117) U/L Ammonia (11-32) mcmol/L Total Creatine Kinase (26-192) U/L CK-MB (CK-2) (0.5-3.6) ng/mL Troponin I (0.02-0.05) ng/mL Total Protein (6.4-8.2) g/dL Albumin (3.4-5.0) g/dL Lipase (73-393) U/L Urine Color (Yellw/Straw) Urine Clarity (Clear) Urine pH (5.0-8.5) Ur Specific [place] (1.002-1.035) Urine Protein (Neg-Trace) mg/dL Urine Glucose (UA) (Negative) mg/dL Urine Ketones (Negative) mg/dL Urine Occult Blood (Negative) Urine Nitrate (Negative) Urine Bilirubin (Negative) Urine Urobilinogen (Less than 2) mg/dL Ur Leukocyte Esterase (Negative) Urine RBC (0-3) /hpf Urine WBC (0-5) /hpf Ur Squamous Epith Cells (0-5) /hpf Urine Yeast (None) /hpf Micro UA Comment Ur Microscopic Review Urine Culture Comments 03/05/18 Range/Units 07:36 WBC (4.0-11.0) th/mm3 RBC (4.00-5.30) mil/mm3 Hgb (11.6-15.3) gm/dL Hct (35.0-46.0) % MCV (80.0-100.0) fL MCH (27.0-34.0) pg MCHC (32.0-36.0) % RDW (11.6-17.2) % Plt Count (150-450) th/mm3 MPV (7.0-11.0) fL Prelim Diff (Auto) WBC Differential Seg Neuts % (Manual) (16-70) % Band Neuts % (Manual) (0-6) % Monocytes % (Manual) (0-8) % Basophils % (Manual) (0-2) % Metamyelocytes % (Man) (0-1) % Abs Neuts (Manual) (1.8-7.7) th/mm3 Nucleated RBCs/100 WBC (0-0) /100 WBC Differential Comment Platelet Estimate (Normal) Platelet Morphology (Normal) Target Cells (None) [place] Bodies (None) PT (9.8-11.6) sec INR Ratio APTT (24.3-30.1) sec Sodium (136-145) meq/L Potassium (3.5-5.1) meq/L Chloride (98-107) meq/L Carbon Dioxide (21.0-32.0) meq/L Anion Gap (5-15) meq/L BUN (7-18) mg/dL Creatinine (0.50-1.00) mg/dL Estimated GFR (>89) mL/min POC Glucose 84 (68-110) mg/dl Random Glucose (74-106) mg/dL Lactic Acid (0.4-2.0) mmol/L Calcium (8.5-10.1) mg/dL Magnesium (1.5-2.5) mg/dL Total Bilirubin (0.2-1.0) mg/dL AST (15-37) U/L ALT (10-53) U/L Alkaline Phosphatase (45-117) U/L Ammonia (11-32) mcmol/L Total Creatine Kinase (26-192) U/L CK-MB (CK-2) (0.5-3.6) ng/mL Troponin I (0.02-0.05) ng/mL Total Protein (6.4-8.2) g/dL Albumin (3.4-5.0) g/dL Lipase (73-393) U/L Urine Color (Yellw/Straw) Urine Clarity (Clear) Urine pH (5.0-8.5) Ur Specific [place] (1.002-1.035) Urine Protein (Neg-Trace) mg/dL Urine Glucose (UA) (Negative) mg/dL Urine Ketones (Negative) mg/dL Urine Occult Blood (Negative) Urine Nitrate (Negative) Urine Bilirubin (Negative) Urine Urobilinogen (Less than 2) mg/dL Ur Leukocyte Esterase (Negative) Urine RBC (0-3) /hpf Urine WBC (0-5) /hpf Ur Squamous Epith Cells (0-5) /hpf Urine Yeast (None) /hpf Micro UA Comment Ur Microscopic Review Urine Culture Comments Imaging Data Radiologist's impression: Chest X-Ray 03/04/18 19:15 CONCLUSION: Suspected left lower lung atelectasis. Discharge Plan Discharge Disposition Patient Disposition: 30 Still Patient Discharge Details Diagnosis: Abdominal pain, Fever Physicians Team ED Provider: Elena Holloway Primary Care Provider: Gilmar Matos Attending Provider: Daryl Sky Discharge Interventions Interventions: ED Discharge Assessment Last Done: 03/05/18 01:15 Vital Signs Last Done: 03/05/18 00:13 Status ED Status: Left Department Discharge Information Discharge Date/Time: 03/05/18 01:16
[2018-03-04] MEDS ORDERED: Vancomycin Inj 1,000 MG in Sodium Chlor 0.9% Inj 250 ML IV.SIG ONE (20:00)
--- NOTE | 2018-03-04 20:06 | XR ---
EXAM DATE: 03/04/2018 7:15 PM EDT AGE/SEX: 47 years / Female INDICATIONS: Short of breath. CLINICAL DATA: This is the patient's initial encounter. Patient reports that signs and symptoms have been present for 1 day and indicates a pain score of 0/10. MEDICAL/SURGICAL HISTORY: Cirrhosis. Renal calculi. Lymphoma. Splenectomy. [place] [facility] [place]. . FINDINGS: The heart size is normal. There is linear density at the left lateral base. The right lung is clear. No effusion is seen. There is a clip in the left upper quadrant. CONCLUSION: Suspected left lower lung atelectasis. Electronically signed by: Mele Cuba MD 03/04/2018 8:04 PM EDT
[2018-03-04 21:03] LABS: Hemoglobin 11.2 gm/dL (11.6-15.3); Mean Corpuscular Hemoglobin 28.9 pg (27.0-34.0); Mean Corpuscular Volume 90.3 fL (80.0-100.0); Mean Platelet Volume 11.6 fL (7.0-11.0); Platelet Count 302 th/mm3 (150-450); Red Blood Count 3.88 mil/mm3 (4.00-5.30); Red Cell Distribution Width 18.1 % (11.6-17.2); White Blood Count 12.9 th/mm3 (4.0-11.0)
[2018-03-04 21:17] LABS: INR 1.1 Ratio; Prothrombin Time 10.9 sec (9.8-11.6)
[2018-03-04 21:26] LABS: Bilirubin,Urine Negative (Negative); Clarity,Urine Hazy (Clear); Color,Urine Yellow (Yellw/Straw); Glucose,Urine (UA) 500 or Greater mg/dL (Negative); Leukocyte Esterase,Urine Negative (Negative); Nitrite,Urine Negative (Negative); Specific Gravity,Urine 1.028 (1.002-1.035); Squamous Epithelial Cell,Urine 6 /hpf (0-5)
[2018-03-04 22:05] LABS: Alanine Aminotransferase 123 U/L (10-53); Albumin 1.9 g/dL (3.4-5.0); Alkaline Phosphatase 1557 U/L (45-117); Anion Gap 12 meq/L (5-15); Aspartate Aminotransferase 192 U/L (15-37); Blood Urea Nitrogen 7 mg/dL (7-18); Calcium 8.1 mg/dL (8.5-10.1); Carbon Dioxide 21.8 meq/L (21.0-32.0); Chloride 99 meq/L (98-107); Creatine Kinase 119 U/L (26-192); Glomerular Filtration Rate Greater Than 89 mL/min (>89); Lipase 61 U/L (73-393); Magnesium 1.6 mg/dL (1.5-2.5); Sodium 133 meq/L (136-145); Total Protein 6.3 g/dL (6.4-8.2)
[2018-03-04 22:17] LABS: Potassium 3.9 meq/L (3.5-5.1)
[2018-03-04 22:19] LABS: Glucose,Random 464 mg/dL (74-106)
[2018-03-04 22:35] LABS: Metamyelocytes 1 % (0-1); Monocytes 1 % (0-8); Tallied Nucleated RBC 1 (0-0)
[2018-03-04 22:38] LABS: Howell-Jolly Bodies Present; Platelet Estimate Normal (Normal); Platelet Morphology Normal (Normal)
[2018-03-04 22:39] LABS: Target Cells 2+
[2018-03-04] MEDS ORDERED: Sod Chloride 0.9% Inj 1,000 ML IV.CONT SCH (22:45)
[2018-03-05] MEDS ORDERED: Bisacodyl 10 MG Supp RECTAL PRN (00:31)
[2018-03-05] MEDS ORDERED: Dextrose 50% in Water 50 ML Vial IV.PUSH PRN (00:37)
--- NOTE | 2018-03-05 00:44 | P.HP ---
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 The patient also reports a fever at home to 103. She is an extremely poor historian who does not follow with a yarn twister and reports she has been to [facility] in [place] for evaluation of the liver transplant however states she was told that she was "not sick enough to receive a liver." She denies any chest pain. Endorses shortness of breath. No lateralizing signs /symptoms. Inpatient Certification: I certify that the inpatient services were ordered in accordance with Medicare regulations governing the order. This includes certification that hospital inpatient services are reasonable and necessary and in the case of services not specified as inpatient-only under 42 CFR 419.22(n), that they are appropriately provided as inpatient services in accordance to with the 2-midnight benchmark under 43 CFR 412.3(e) Review of Systems All other systems reviewed negative except as stated in HPI PMFSH - History History Provided By: Patient, Family Member - Medical History Medical History: Medical History (Last Reviewed 03/05/18 @ 00:37 by Isaura Whyte MD) Cirrhosis Diabetes Gallstones Hepatomegaly Kidney stone Non Hodgkin's lymphoma - Surgical History Surgical History: Surgical History (Last Reviewed 03/05/18 @ 00:37 by Isaura Whyte MD) H/O splenectomy History of liver biopsy - Family History Family History: Family History (Last Reviewed 03/05/18 @ 00:37 by Isaura Whyte MD) Father CAD (coronary artery disease) - Tobacco History Second Hand Smoke Exposure: No Smoking Status: Never smoker Tobacco Type: Cigarettes - Alcohol History How Often Do You Have a Drink Containing Alcohol: Never - Substance Use History Substance History: No History of Abuse - Travel History Recent Travel in the [place] Within the Last 8 Weeks: No Recent Travel Out of the Country Within the Last 8 Weeks: No - Immunization History Tetanus Immunization: <5 Years Medications and Allergies Active Medications: Active Medications Sodium Chloride (Ns Inj) 1,000 mls @ 125 mls/hr IV.CONT .Q8H DESTINI Last Admin: 03/04/18 22:52 Dose: 125 mls/hr Allergies Allergy/AdvReac Type Severity Reaction Status Date / Time fentanyl Allergy Severe SOB Verified 03/04/18 18:24 gadobenic acid Allergy Severe BREATHING Verified 03/04/18 18:24 PROBLEMS, N/V,CHILLS gadodiamide Allergy Severe BREATHING Verified 03/04/18 18:24 PROBLEMS, N/V,CHILLS gadoteridol Allergy Severe BREATHING Verified 03/04/18 18:24 PROBLEMS, N/V,CHILLS ketorolac Allergy Severe Shortness Verified 03/04/18 18:24 of Breath morphine Allergy Severe SOB Verified 03/04/18 18:24 tramadol Allergy Mild Shortness Verified 03/04/18 18:24 of Breath Gadolinium-Containing AdvReac Severe nauseas Verified 03/04/18 18:24 Contrast Medi /vomiting MRI PRECAUTION AdvReac Severe NAUSEA; Uncoded 03/04/18 18:24 PER PATIENT IT IS A GADOLINIUM ALLERGY KMD 11/25/12 Home Medications Medication Instructions Recorded Confirmed Type insulin glargine [Lantus U-100 25 unit SUB-Q HS 01/24/18 03/04/18 History Insulin] insulin aspart U-100 [Novolog 1 sliding scale dose SUB-Q UD 01/31/18 03/04/18 History U-100 Insulin aspart] Exam Vital signs: Vital Signs 03/04/18 17:45 03/04/18 18:25 03/04/18 20:45 Temperature 102.4 F H Pulse Rate 127 H 122 H 113 H Respiratory Rate 18 15 Blood Pressure 129/73 126/92 H Pulse Oximetry 100 98 96 03/04/18 20:46 03/05/18 00:13 Temperature Pulse Rate 115 H 90 Respiratory Rate 16 16 Blood Pressure 106/59 L 101/56 L Pulse Oximetry 96 Intake & Output 03/04/18 03/04/18 03/05/18 06:59 18:59 06:59 Intake Total 1300 / 1300 Balance 1300 / 1300 Weight 54.431 kg Intake: IV 1300 / 1300 Zosyn 3.375 GM Premix 50 ML @ 50 / 50 100 mls/hr IV.SIG ONCE ONE Rx#: [id number] NS Inj 1,000 ML @ Wide Open IV. 1000 / 1000 SIG BOLUS ONE Rx#:[id number] Vancomycin Inj 1,000 MG In NS 250 / 250 Inj 250 ML @ 200 mls/hr IV.SIG ONCE ONE Rx#:[id number] Narrative: Gen.: No acute distress Head: Normocephalic. Atraumatic. EENT: Pupils equal round and reactive to light. Nose without drainage. Airway intact. Throat without injection. Cardiovascular: Regular rate and rhythm. No murmurs, rubs or gallops. Respiratory: Lungs clear to auscultation bilaterally. No wheezes or rhonchi. Abdomen: Soft, diffusely tender to palpation, mildly distended. No peritoneal signs. Musculoskeletal: No gross deformities. No edema. Skin: No obvious rashes or erythema. Neuro: Sensory and motor grossly intact. Cranial nerves II through XII grossly intact. Results - Labs CBC & Chem 7: 03/04/18 20:10 03/04/18 20:10 Labs: Laboratory Results - last 24 hr 03/04/18 03/04/18 03/04/18 20:10 20:10 20:10 WBC 12.9 H RBC 3.88 L Hgb 11.2 L Hct 35.0 MCV 90.3 MCH 28.9 MCHC 32.0 RDW 18.1 H Plt Count 302 MPV 11.6 H Prelim Diff (Auto) Manual diff required WBC Differential Manual diff final Seg Neuts % (Manual) 95 H Band Neuts % (Manual) 2 Monocytes % (Manual) 1 Basophils % (Manual) 1 Metamyelocytes % (Man) 1 Abs Neuts (Manual) 12.6 H Nucleated RBCs/100 WBC 1 H Differential Comment . Platelet Estimate Normal Platelet Morphology Normal Target Cells 2+ H [place] Bodies Present H PT 10.9 INR 1.1 APTT 27.0 Sodium 133 L Potassium 3.9 Chloride 99 Carbon Dioxide 21.8 Anion Gap 12 BUN 7 Creatinine 0.47 L Estimated GFR Greater than 89 Random Glucose 464 H* Lactic Acid Calcium 8.1 L Magnesium 1.6 Total Bilirubin 5.4 H AST 192 H ALT 123 H Alkaline Phosphatase 1557 H Ammonia Total Creatine Kinase 119 CK-MB (CK-2) Less than 1.0 Troponin I Less than 0.02 L Total Protein 6.3 L D Albumin 1.9 L Lipase 61 L Urine Color Urine Clarity Urine pH Ur Specific [place] Urine Protein Urine Glucose (UA) Urine Ketones Urine Occult Blood Urine Nitrate Urine Bilirubin Urine Urobilinogen Ur Leukocyte Esterase Urine RBC Urine WBC Ur Squamous Epith Cells Urine Yeast Micro UA Comment Ur Microscopic Review Urine Culture Comments 03/04/18 03/04/18 03/04/18 20:10 20:10 20:10 WBC RBC Hgb Hct MCV MCH MCHC RDW Plt Count MPV Prelim Diff (Auto) WBC Differential Seg Neuts % (Manual) Band Neuts % (Manual) Monocytes % (Manual) Basophils % (Manual) Metamyelocytes % (Man) Abs Neuts (Manual) Nucleated RBCs/100 WBC Differential Comment Platelet Estimate Platelet Morphology Target Cells [place] Bodies PT INR APTT Sodium Potassium Chloride Carbon Dioxide Anion Gap BUN Creatinine Estimated GFR Random Glucose Lactic Acid 1.6 Calcium Magnesium Total Bilirubin AST ALT Alkaline Phosphatase Ammonia Less than 10 L Total Creatine Kinase CK-MB (CK-2) Troponin I Total Protein Albumin Lipase Urine Color Yellow Urine Clarity Hazy H Urine pH 6.0 Ur Specific [place] 1.028 Urine Protein Negative Urine Glucose (UA) 500 or greater Urine Ketones Negative Urine Occult Blood Negative Urine Nitrate Negative Urine Bilirubin Negative Urine Urobilinogen Less than 2 Ur Leukocyte Esterase Negative Urine RBC 25 H Urine WBC Less than 1 Ur Squamous Epith Cells 6 Urine Yeast Many H Micro UA Comment Culture not ind Ur Microscopic Review Not Reportable Urine Culture Comments Culture not ind - Imaging Impressions Chest X-Ray 03/04/18 19:15 CONCLUSION: Suspected left lower lung atelectasis. Caprini VTE Risk Assessment Caprini VTE Risk Assessment: No/Low Risk (score <= 1) Caprini Risk Assessment Model: Point Value = 1 Point Value = 2 Point Value = 3 Point Value = 5 Age 41-60 Minor surgery BMI > 25 kg/m2 Swollen legs Varicose veins or History of unexplained or recurrent spontaneous Oral contraceptives or hormone replacement Sepsis (< 1 month) Serious lung disease, including pneumonia (< 1 month) Abnormal pulmonary function Acute myocardial infarction Congestive heart failure (< 1 month) History of inflammatory bowel disease Medical patient at bed rest Age 61-74 Arthroscopic surgery Major open surgery (> 45 min) Laparoscopic surgery (> 45 min) Malignancy Confined to bed (> 72 hours) Immobilizing plaster cast Central venous access Age >= 75 History of VTE Family history of VTE Factor V Leiden Prothrombin [id number] Lupus anticoagulant Anticardiolipin antibodies Elevated serum homocysteine Heparin-induced thrombocytopenia Other congenital or acquired thrombophilia Stroke (< 1 month) Elective arthroplasty Hip, pelvis, or leg fracture Acute spinal cord injury (< 1 month) Prophylaxis Regimen: Total Risk Factor Score Risk Level Prophylaxis Regimen 0-1 Low Early ambulation 2 Moderate Order ONE of the following: *Sequential Compression Device (SCD) *Heparin 5000 units SQ BID 3-4 Higher Order ONE of the following medications: *Heparin 5000 units SQ TID *Enoxaparin/Lovenox 40 mg SQ daily (WT < 150 kg, CrCl > 30 mL/min) *Enoxaparin/Lovenox 30 mg SQ daily (WT < 150 kg, CrCl > 10-29 mL/min) *Enoxaparin/Lovenox 30 mg SQ BID (WT < 150 kg, CrCl > 30 mL/min) AND/OR *Sequential Compression Device (SCD) 5 or more Highest Order ONE of the following medications: *Heparin 5000 units SQ TID (Preferred with Epidurals) *Enoxaparin/Lovenox 40 mg SQ daily (WT < 150 kg, CrCl > 30 mL/min) *Enoxaparin/Lovenox 30 mg SQ daily (WT < 150 kg, CrCl > 10-29 mL/min) *Enoxaparin/Lovenox 30 mg SQ BID (WT < 150 kg, CrCl > 30 mL/min) AND *Sequential Compression Device (SCD) Assessment and Plan - Plan Assessment/plan: 1. SIRS Patient with leukocytosis, fever and tachycardia Concern for SBP Abdominal ultrasound pending to evaluate for ascites/paracentesis Rocephin Blood cultures pending UA negative Chest x-ray significant for a left lower lung atelectasis 2. Cirrhosis LFTs elevated, baseline She reports that she will follow up with a yarn twister however has not yet done so. Patient has been evaluated multiple times by gastroenterology during her many previous hospital admissions. 3. Diabetes mellitus/hyperglycemia Status post insulin in the ED Continue home Lantus Sliding-scale insulin Monitor blood glucose FEN N.p.o. Electrolytes: Monitor and replete as needed
[2018-03-05] MEDS: Insulin NovoLOG Aspart Correctional Sugar Inj SQ SCH ×5 (04:13→22:03)
[2018-03-05 07:10] LABS: Hematocrit 28.8 % (35.0-46.0); Hemoglobin 9.4 gm/dL (11.6-15.3); Mean Corpuscular HGB Conc 32.7 % (32.0-36.0); Mean Corpuscular Hemoglobin 28.9 pg (27.0-34.0); Mean Corpuscular Volume 88.3 fL (80.0-100.0); Mean Platelet Volume 11.1 fL (7.0-11.0); Platelet Count 264 th/mm3 (150-450); Red Blood Count 3.26 mil/mm3 (4.00-5.30); Red Cell Distribution Width 17.7 % (11.6-17.2)
[2018-03-05 07:11] LABS: INR 1.1 Ratio; Prothrombin Time 11.5 sec (9.8-11.6)
[2018-03-05 07:43] LABS: Alanine Aminotransferase 96 U/L (10-53); Albumin 1.5 g/dL (3.4-5.0); Anion Gap 9 meq/L (5-15); Aspartate Aminotransferase 144 U/L (15-37); Blood Urea Nitrogen 9 mg/dL (7-18); Calcium 7.5 mg/dL (8.5-10.1); Carbon Dioxide 23.6 meq/L (21.0-32.0); Chloride 108 meq/L (98-107); Glomerular Filtration Rate Greater Than 89 mL/min (>89); Glucose,Random 80 mg/dL (74-106); Sodium 141 meq/L (136-145)
[2018-03-05 07:55] LABS: Alkaline Phosphatase 1146 U/L (45-117); Total Protein 4.9 g/dL (6.4-8.2)
[2018-03-05 07:59] LABS: Potassium 2.9 meq/L (3.5-5.1)
[2018-03-05 08:29] LABS: Lymphocytes 12 % (9-44); Monocytes 7 % (0-8)
[2018-03-05 08:30] LABS: Howell-Jolly Bodies Present; Platelet Estimate Normal (Normal); Platelet Morphology Normal (Normal); Target Cells 1+
--- NOTE | 2018-03-05 09:23 | US ---
EXAM DATE: 03/05/2018 12:00 AM EDT AGE/SEX: 47 years / Female INDICATIONS: Evaluate for ascites. CLINICAL DATA: This is the patient's initial encounter. Patient reports that signs and symptoms have been present for 1 day and indicates a pain score of 8/10. MEDICAL/SURGICAL HISTORY: . Cirrhosis. Diabetic. Gallstones. Hepatomegaly. Kidney stone. N on Hodgkin's lymphoma. Splenectomy. Liver biopsy. COMPARISON: [facility] [place] ABDOMEN LOWER LIMITED, 02/07/2018. . FINDINGS: Masses: None Fluid Collections: None Other: None. CONCLUSION: 1. Trace to minimal ascites, not enough for safe paracentesis Electronically signed by: You Morales MD 03/05/2018 9:22 AM EDT
[2018-03-05] MEDS: Mag Sulf 1 gm/100 ml Premix 100 ML IV.SIG SCH ×2 (10:03→10:27)
[2018-03-05] MEDS: Potassium Chlor 20 mEq Premix 20 MEQ/100 ML PIGGYBACK IV.SIG SCH ×2 (10:03→11:17)
[2018-03-05] MEDS ORDERED: HYDROmorphone PF Inj 2 MG/ML Vial IV.PUSH ONE (12:11)
[2018-03-05] MEDS ORDERED: HYDROmorphone PF Inj 2 MG/ML Vial SQ ONE (13:10)
[2018-03-05] MEDS: HYDROmorphone PF Inj 2 MG/ML Vial IV.PUSH PRN ×3 (15:11→23:31)
--- NOTE | 2018-03-05 18:03 | P.PNADD ---
Addendum to Inpatient Note Additional information: Patient seen/examined. Complains of significant abdominal pain. Abd US did not reveal much ascites. Will see if we can do a diagnostic paracentesis, especially if patient continues to have fever. Continue Ceftriaxone.
[2018-03-05] MEDS ORDERED: Insulin Detemir Inj 1,000 UNIT/10 ML Vial SQ SCH (21:00)
[2018-03-05] MEDS ORDERED: Ibuprofen 600 MG Tablet PO ONE (21:39)
[2018-03-06] MEDS: Insulin NovoLOG Aspart Correctional Sugar Inj SQ SCH ×5 (02:08→20:24)
[2018-03-06] MEDS: HYDROmorphone PF Inj 2 MG/ML Vial IV.PUSH PRN ×5 (03:33→20:16)
[2018-03-06 07:55] LABS: Hematocrit 32.4 % (35.0-46.0); Hemoglobin 10.5 gm/dL (11.6-15.3); Mean Corpuscular HGB Conc 32.4 % (32.0-36.0); Mean Corpuscular Hemoglobin 28.8 pg (27.0-34.0); Mean Corpuscular Volume 88.6 fL (80.0-100.0); Mean Platelet Volume 10.9 fL (7.0-11.0); Platelet Count 249 th/mm3 (150-450); Red Blood Count 3.66 mil/mm3 (4.00-5.30); Red Cell Distribution Width 17.8 % (11.6-17.2); White Blood Count 12.9 th/mm3 (4.0-11.0)
[2018-03-06 08:31] LABS: Howell-Jolly Bodies Present; Lymphocytes 10 % (9-44); Monocytes 8 % (0-8); Platelet Estimate Normal (Normal)
[2018-03-06 08:32] LABS: Target Cells 2+
--- NOTE | 2018-03-06 10:45 | P.PNIM ---
Subjective Interval history: 47 year old female with cirrhosis, IDDM, gallstones, hepatomegaly, kidney stones , and non-Hodgkins lymphoma, presented to the ED on 03/04 due to developing a sever of 103 at home. She was also experiencing nausea, vomiting, and diarrhea. She has drug induced hepatic injury diagnosed in 2017. She has recurrent ascites last drained in Jan. The patient states she is in pain. It is worst in her midepigastric and RUQ. She feels mildly nauseous and states she had 2 episodes of diarrhea but it is improving. She has begged me for a regular diet. She did not sleep well and is scared since she does not know what is wrong and is concerned about her sugar levels. She also was freezing last night despite a warm room. At 6:20 am her sugar went down to 40. She was given juice and it only increased to 69. Her vital signs are within normal limits aside from a blood pressure of 95/63. Her temperature is 97.1 at 8am which is down from 101.8 at 20:00 on 03/05. However, patient reports that her temperature was 103 last night. On physial exam the patient is in mild distress due to pain and fear. Her abdomen is very distended and sensitive to touch on the right side. Her lab results at 7:13 am were WBC of 12.9 and Hgb of 10.5L. Her smear showed [place] bodies and Target cells, likely due to her prior splenectomy. 1. Abdominal Pain- continue pain medication, which the patient states helps. Possibly switch to solid food diet as patient says the liquids make her more nauseous and in pain. 2. Infection- continue ceftriaxone. Due to recent fever consider performing a diagnostic paracentesis. 3. Diabetes- continue to monitor her glucose levels closely. Physical Exam Vital signs: Vital Signs 03/05/18 12:00 03/05/18 16:00 03/05/18 20:00 Temperature 99.3 F 98.9 F 101.8 F H Pulse Rate 99 H 100 H 121 H Respiratory Rate 18 17 21 Blood Pressure 109/67 100/62 126/72 Pulse Oximetry 96 95 97 03/05/18 23:59 03/06/18 04:00 03/06/18 08:00 Temperature 100.8 F H 97.7 F 97.1 F L Pulse Rate 106 H 77 72 Respiratory Rate 21 20 20 Blood Pressure 94/55 L 91/59 L 95/63 L Pulse Oximetry 94 L 97 99 Intake & Output 03/05/18 03/06/18 03/06/18 18:59 06:59 18:59 Intake Total 1400 / 1400 700 / 700 Balance 1400 / 1400 700 / 700 Weight 52.9 kg Intake: IV 1400 / 1400 100 / 100 NS Inj 1,000 ML @ 125 mls/hr IV 1000 / 1000 .CONT .Q8H DESTINI Rx#:[id number] Magnesium Sulfate 1 gm/D5W 100 200 / 200 ml Premix 100 ML @ 100 mls/hr IV.SIG Q1H DESTINI Rx#:[id number] KCl 20 mEq Premix Inj 20 meq In 200 / 200 100 ml @ 50 mls/hr IV.SIG Q2H DESTINI Rx#:[id number] Rocephin Inj 2,000 MG In NS Inj 100 / 100 100 ML @ 200 mls/hr IV.SIG Q24H DESTINI Rx#:[id number] Oral 600 / 600 Other: # Voids 8 Date of Last Bowel Movement 03/05/18 Results - Labs CBC & Chem 7: 03/06/18 07:13 03/06/18 07:48 Laboratory Results - last 24 hr 03/05/18 03/05/18 03/05/18 11:14 15:59 16:00 WBC RBC Hgb Hct MCV MCH MCHC RDW Plt Count MPV Prelim Diff (Auto) WBC Differential Seg Neuts % (Manual) Lymphocytes % (Manual) Monocytes % (Manual) Abs Neuts (Manual) Differential Comment Platelet Estimate Platelet Morphology Target Cells [place] Bodies POC Glucose 128 H 318 H 312 H Random Glucose Lactic Acid 03/05/18 03/06/18 03/06/18 22:00 02:08 06:35 WBC RBC Hgb Hct MCV MCH MCHC RDW Plt Count MPV Prelim Diff (Auto) WBC Differential Seg Neuts % (Manual) Lymphocytes % (Manual) Monocytes % (Manual) Abs Neuts (Manual) Differential Comment Platelet Estimate Platelet Morphology Target Cells [place] Bodies POC Glucose 176 H 82 40 L* Random Glucose Lactic Acid 03/06/18 03/06/18 03/06/18 06:50 07:13 07:13 WBC 12.9 H RBC 3.66 L Hgb 10.5 L Hct 32.4 L MCV 88.6 MCH 28.8 MCHC 32.4 RDW 17.8 H Plt Count 249 MPV 10.9 Prelim Diff (Auto) Manual diff required WBC Differential Manual diff final Seg Neuts % (Manual) 82 H Lymphocytes % (Manual) 10 Monocytes % (Manual) 8 Abs Neuts (Manual) 10.6 H Differential Comment . Platelet Estimate Normal Platelet Morphology Enlarged H Target Cells 2+ H [place] Bodies Present H POC Glucose 69 Random Glucose Lactic Acid 2.2 H 03/06/18 03/06/18 03/06/18 07:15 07:48 08:11 WBC RBC Hgb Hct MCV MCH MCHC RDW Plt Count MPV Prelim Diff (Auto) WBC Differential Seg Neuts % (Manual) Lymphocytes % (Manual) Monocytes % (Manual) Abs Neuts (Manual) Differential Comment Platelet Estimate Platelet Morphology Target Cells [place] Bodies POC Glucose 69 81 Random Glucose 132 H Lactic Acid Microbiology 03/04/18 20:10 Blood - Peripheral Aerobic Blood Culture - Preliminary No growth in 1 day 03/04/18 20:10 Blood - Peripheral Anaerobic Blood Culture - Preliminary No growth in 1 day 03/04/18 20:05 Blood - Peripheral Aerobic Blood Culture - Preliminary No growth in 1 day 03/04/18 20:05 Blood - Peripheral Anaerobic Blood Culture - Preliminary No growth in 1 day
--- NOTE | 2018-03-06 19:28 | P.PN ---
Subjective Interval history: Follow-up for abdominal pain, fever in a patient with a history of drug-induced nonalcoholic liver cirrhosis. Patient is resting in bed well. Tolerating diet well. She complains of significant abdominal pain. She had a fever of 101.8 F and 100.8 F at midnight. Afebrile since midnight. Physical Exam Vital signs: Vital Signs 03/05/18 20:00 03/05/18 23:59 03/06/18 04:00 Temperature 101.8 F H 100.8 F H 97.7 F Pulse Rate 121 H 106 H 77 Respiratory Rate 21 21 20 Blood Pressure 126/72 94/55 L 91/59 L Pulse Oximetry 97 94 L 97 03/06/18 08:00 03/06/18 12:00 03/06/18 16:00 Temperature 97.1 F L 97.2 F L 98.3 F Pulse Rate 72 69 81 Respiratory Rate 20 18 18 Blood Pressure 95/63 L 94/58 L 94/68 L Pulse Oximetry 99 97 98 Intake & Output 03/06/18 03/06/18 03/07/18 06:59 18:59 06:59 Intake Total 700 / 700 1250 / 1250 Balance 700 / 700 1250 / 1250 Weight 52.9 kg Intake: IV 100 / 100 Rocephin Inj 2,000 MG In NS Inj 100 / 100 100 ML @ 200 mls/hr IV.SIG Q24H EDSTINI Rx#:[id number] Oral 600 / 600 1250 / 1250 Other: # Voids 8 6 Date of Last Bowel Movement 03/05/18 # Bowel Movements 0 Narrative: Gen.: No acute distress Head: Normocephalic. Atraumatic. EENT: Pupils equal round and reactive to light. Nose without drainage. Airway intact. Throat without injection. Cardiovascular: Regular rate and rhythm. No murmurs, rubs or gallops. Respiratory: Lungs clear to auscultation bilaterally. No wheezes or rhonchi. Abdomen: Soft, diffusely tender to palpation, mildly distended. No peritoneal signs. Musculoskeletal: No gross deformities. No edema. Skin: No obvious rashes or erythema. Neuro: Sensory and motor grossly intact. Cranial nerves II through XII grossly intact. Results - Labs CBC & Chem 7: 03/06/18 07:13 03/06/18 07:48 Laboratory Results - last 24 hr 03/05/18 03/06/18 03/06/18 22:00 02:08 06:35 WBC RBC Hgb Hct MCV MCH MCHC RDW Plt Count MPV Prelim Diff (Auto) WBC Differential Seg Neuts % (Manual) Lymphocytes % (Manual) Monocytes % (Manual) Abs Neuts (Manual) Differential Comment Platelet Estimate Platelet Morphology Target Cells [place] Bodies POC Glucose 176 H 82 40 L* Random Glucose Lactic Acid 03/06/18 03/06/18 03/06/18 06:50 07:13 07:13 WBC 12.9 H RBC 3.66 L Hgb 10.5 L Hct 32.4 L MCV 88.6 MCH 28.8 MCHC 32.4 RDW 17.8 H Plt Count 249 MPV 10.9 Prelim Diff (Auto) Manual diff required WBC Differential Manual diff final Seg Neuts % (Manual) 82 H Lymphocytes % (Manual) 10 Monocytes % (Manual) 8 Abs Neuts (Manual) 10.6 H Differential Comment . Platelet Estimate Normal Platelet Morphology Enlarged H Target Cells 2+ H [place] Bodies Present H POC Glucose 69 Random Glucose Lactic Acid 2.2 H 03/06/18 03/06/18 03/06/18 07:15 07:48 08:11 WBC RBC Hgb Hct MCV MCH MCHC RDW Plt Count MPV Prelim Diff (Auto) WBC Differential Seg Neuts % (Manual) Lymphocytes % (Manual) Monocytes % (Manual) Abs Neuts (Manual) Differential Comment Platelet Estimate Platelet Morphology Target Cells [place] Bodies POC Glucose 69 81 Random Glucose 132 H Lactic Acid 03/06/18 03/06/18 10:55 16:30 WBC RBC Hgb Hct MCV MCH MCHC RDW Plt Count MPV Prelim Diff (Auto) WBC Differential Seg Neuts % (Manual) Lymphocytes % (Manual) Monocytes % (Manual) Abs Neuts (Manual) Differential Comment Platelet Estimate Platelet Morphology Target Cells [place] Bodies POC Glucose 114 H 170 H Random Glucose Lactic Acid Microbiology 03/04/18 20:10 Blood - Peripheral Aerobic Blood Culture - Preliminary No growth in 2 days 03/04/18 20:10 Blood - Peripheral Anaerobic Blood Culture - Preliminary No growth in 2 days 03/04/18 20:05 Blood - Peripheral Aerobic Blood Culture - Preliminary No growth in 2 days 03/04/18 20:05 Blood - Peripheral Anaerobic Blood Culture - Preliminary No growth in 2 days Assessment and Plan - Plan 47-year-old female well-known to me with a past medical history of non-Hodgkin' s lymphoma who underwent chemotherapy in 2004 and 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 Sepsis (heart rate over 100, WBC count 12.9, possible intra-abdominal infection ) Possible spontaneous bacterial peritonitis -Abdominal ultrasound showed trace to minimal amount of ascites. -Continue ceftriaxone 2 g daily. -We will obtain CBC and BMP in the morning. -IV Dilaudid 0.5 mg every 4 hours as needed for pain. Diabetes mellitus -Continue sliding scale insulin. Decrease Levemir from 25 unit to 18 units nightly. Drug-induced, nonalcoholic liver cirrhosis History of non-Hodgkin's lymphoma -Patient is scheduled to follow-up with [facility] gastroenterology regarding possible liver transplant. Full code. Ambulation.
[2018-03-06] MEDS: Insulin Detemir Inj 1,000 UNIT/10 ML Vial SQ SCH (20:24)
[2018-03-06] MEDS ORDERED: Insulin Detemir Inj 1,000 UNIT/10 ML Vial SQ SCH (21:00)
[2018-03-07] MEDS: HYDROmorphone PF Inj 2 MG/ML Vial IV.PUSH PRN ×6 (00:16→21:44)
[2018-03-07] MEDS: Insulin NovoLOG Aspart Correctional Sugar Inj SQ SCH ×5 (05:34→21:56)
[2018-03-07 07:42] LABS: Hematocrit 30.1 % (35.0-46.0); Hemoglobin 9.6 gm/dL (11.6-15.3); Mean Corpuscular Hemoglobin 28.6 pg (27.0-34.0); Mean Corpuscular Volume 89.5 fL (80.0-100.0); Mean Platelet Volume 11.5 fL (7.0-11.0); Platelet Count 238 th/mm3 (150-450); Red Blood Count 3.36 mil/mm3 (4.00-5.30); Red Cell Distribution Width 18.1 % (11.6-17.2); White Blood Count 8.9 th/mm3 (4.0-11.0)
[2018-03-07 08:05] LABS: Anion Gap 8 meq/L (5-15); Blood Urea Nitrogen 7 mg/dL (7-18); Calcium 7.2 mg/dL (8.5-10.1); Carbon Dioxide 24.3 meq/L (21.0-32.0); Chloride 108 meq/L (98-107); Glomerular Filtration Rate Greater Than 89 mL/min (>89); Glucose,Random 139 mg/dL (74-106); Potassium 3.9 meq/L (3.5-5.1); Sodium 140 meq/L (136-145)
[2018-03-07 08:20] LABS: Total Protein 5.1 g/dL (6.4-8.2)
[2018-03-07] MEDS: Spironolactone 50 MG Tablet PO SCH (09:03)
[2018-03-07] MEDS: Furosemide 20 MG Tablet PO SCH (09:03)
[2018-03-07 09:43] LABS: Lymphocytes 3 % (9-44); Monocytes 12 % (0-8)
[2018-03-07 09:44] LABS: Target Cells 3+
[2018-03-07 09:45] LABS: Howell-Jolly Bodies Present; Platelet Estimate Normal (Normal); Platelet Morphology Normal (Normal)
[2018-03-07] MEDS: Insulin Detemir Inj 1,000 UNIT/10 ML Vial SQ SCH (21:43)
[2018-03-08] MEDS: HYDROmorphone PF Inj 2 MG/ML Vial IV.PUSH PRN ×6 (01:53→23:11)
[2018-03-08] MEDS: Insulin NovoLOG Aspart Correctional Sugar Inj SQ SCH ×5 (02:04→20:06)
[2018-03-08] MEDS: Furosemide 20 MG Tablet PO SCH (09:06)
[2018-03-08] MEDS: Spironolactone 50 MG Tablet PO SCH (09:06)
--- NOTE | 2018-03-08 13:53 | P.PN ---
Subjective Interval history: Follow-up sepsis/abdominal pain March 08, 2018-patient seen and examined, continues to complain of abdominal pain and states it is radiating to her back. Afebrile. Labile blood glucose. Physical Exam Vital signs: Vital Signs 03/07/18 16:00 03/07/18 20:00 03/07/18 21:40 Temperature 98.4 F 98.5 F Pulse Rate 88 83 Respiratory Rate 16 18 Blood Pressure 100/66 85/52 L 102/72 Pulse Oximetry 97 96 03/07/18 22:42 03/08/18 00:00 03/08/18 08:00 Temperature 98.6 F 97.8 F Pulse Rate 85 80 Respiratory Rate 18 18 16 Blood Pressure 118/73 102/68 Pulse Oximetry 95 97 Intake & Output 03/07/18 03/08/18 03/08/18 18:59 06:59 18:59 Intake Total 1400 / 1400 100 / 100 Balance 1400 / 1400 100 / 100 Weight 59 kg Intake: IV 100 / 100 Rocephin Inj 2,000 MG In NS Inj 100 / 100 100 ML @ 200 mls/hr IV.SIG Q24H DESTNII Rx#:[id number] Oral 1400 / 1400 Other: # Voids 3 Date of Last Bowel Movement 03/05/18 03/07/18 # Bowel Movements 1 Narrative: Gen.: No acute distress Head: Normocephalic. Atraumatic. EENT: Pupils equal round and reactive to light. Nose without drainage. Airway intact. Throat without injection. Cardiovascular: Regular rate and rhythm. No murmurs, rubs or gallops. Respiratory: Lungs clear to auscultation bilaterally. No wheezes or rhonchi. Abdomen: Soft, diffusely tender to palpation, mildly distended. +BS Musculoskeletal: No gross deformities. No edema. Skin: No obvious rashes or erythema. Neuro: Sensory and motor grossly intact. Cranial nerves II through XII grossly intact. Results - Labs CBC & Chem 7: 03/07/18 06:38 03/07/18 06:38 Laboratory Results - last 24 hr 03/07/18 03/07/18 03/08/18 16:23 21:43 01:58 POC Glucose 309 H 277 H 323 H 03/08/18 03/08/18 08:11 11:50 POC Glucose 133 H 354 H Microbiology 03/04/18 20:10 Blood - Peripheral Aerobic Blood Culture - Preliminary No growth in 4 days 03/04/18 20:10 Blood - Peripheral Anaerobic Blood Culture - Preliminary No growth in 4 days 03/04/18 20:05 Blood - Peripheral Aerobic Blood Culture - Preliminary No growth in 4 days 03/04/18 20:05 Blood - Peripheral Anaerobic Blood Culture - Preliminary No growth in 4 days Assessment and Plan - Plan 47-year-old female with Sepsis Possible spontaneous bacterial peritonitis -Abdominal ultrasound showed trace to minimal amount of ascites. -Continue ceftriaxone 2 g daily. -IV Dilaudid 0.5 mg every 4 hours as needed for pain. Diabetes mellitus -Continue sliding scale insulin. Increase Levemir to 20 units nightly. Drug-induced, nonalcoholic liver cirrhosis History of non-Hodgkin's lymphoma -Patient is scheduled to follow-up with [facility] gastroenterology regarding possible liver transplant. Full code. Ambulation.
[2018-03-08] MEDS: Insulin Detemir Inj 1,000 UNIT/10 ML Vial SQ SCH (20:05)
[2018-03-09] MEDS: Insulin NovoLOG Aspart Correctional Sugar Inj SQ SCH ×5 (02:07→20:26)
[2018-03-09] MEDS: HYDROmorphone PF Inj 2 MG/ML Vial IV.PUSH PRN ×6 (03:08→23:06)
[2018-03-09] MEDS: Furosemide 20 MG Tablet PO SCH (08:32)
[2018-03-09] MEDS: Spironolactone 50 MG Tablet PO SCH (08:32)
--- NOTE | 2018-03-09 10:09 | P.PN ---
Subjective Interval history: Follow-up sepsis/abdominal pain 03/09: Seen in her bedroom, no nausea, vomit or diarrhea. Physical Exam Vital signs: Vital Signs 03/08/18 12:00 03/08/18 16:00 03/08/18 20:00 Temperature 98.5 F 99.1 F 99.3 F Pulse Rate 85 82 101 H Respiratory Rate 16 20 16 Blood Pressure 113/72 96/62 L 102/67 Pulse Oximetry 98 98 97 03/09/18 00:00 03/09/18 07:46 03/09/18 08:00 Temperature 99.6 F 98.4 F Pulse Rate 96 H 89 Respiratory Rate 16 18 17 Blood Pressure 96/54 L 102/68 Pulse Oximetry 97 98 Intake & Output 03/08/18 03/09/18 03/09/18 18:59 06:59 18:59 Intake Total 830 / 830 Balance 830 / 830 Weight 60 kg Intake: IV 100 / 100 Rocephin Inj 2,000 MG In NS Inj 100 / 100 100 ML @ 200 mls/hr IV.SIG Q24H [facility] Rx#:[id number] Oral 730 / 730 Other: # Voids 2 Date of Last Bowel Movement 03/07/18 03/08/18 # Bowel Movements 1 Narrative: Gen.: No acute distress Head: Normocephalic. Atraumatic. EENT: Pupils equal round and reactive to light. Nose without drainage. Airway intact. Throat without injection. Cardiovascular: Regular rate and rhythm. No murmurs, rubs or gallops. Respiratory: Lungs clear to auscultation bilaterally. No wheezes or rhonchi. Abdomen: Soft, diffusely tender to palpation, mildly distended. +BS Musculoskeletal: No gross deformities. No edema. Skin: No obvious rashes or erythema. Neuro: Sensory and motor grossly intact. Cranial nerves II through XII grossly intact. Results - Labs CBC & Chem 7: 03/07/18 06:38 03/07/18 06:38 Laboratory Results - last 24 hr 03/08/18 03/08/18 03/08/18 11:50 16:31 19:12 POC Glucose 354 H 293 H 284 H 03/09/18 03/09/18 02:02 07:21 POC Glucose 203 H 103 Microbiology 03/04/18 20:10 Blood - Peripheral Aerobic Blood Culture - Preliminary No growth in 4 days 03/04/18 20:10 Blood - Peripheral Anaerobic Blood Culture - Preliminary No growth in 4 days 03/04/18 20:05 Blood - Peripheral Aerobic Blood Culture - Preliminary No growth in 4 days 03/04/18 20:05 Blood - Peripheral Anaerobic Blood Culture - Preliminary No growth in 4 days Assessment and Plan - Plan 47-year-old female with Sepsis no BSI. Possible spontaneous bacterial peritonitis -Abdominal ultrasound showed trace to minimal amount of ascites. -Continue ceftriaxone 2 g daily. -IV Dilaudid 0.5 mg every 4 hours as needed for pain. Diabetes mellitus -Continue sliding scale insulin. continue Levemir to 20 units nightly. adjusted insulin sliding scale. Drug-induced, nonalcoholic liver cirrhosis History of non-Hodgkin's lymphoma -Patient is scheduled to follow-up with [facility] gastroenterology regarding possible liver transplant. Full code. Ambulation. Code Status: Full code. Discussed Condition With: patient and nurse Mr. Shabazz. Discharge Planning: Expected by tomorrow.
[2018-03-09] MEDS: Insulin Detemir Inj 1,000 UNIT/10 ML Vial SQ SCH (20:25)
[2018-03-10] MEDS: HYDROmorphone PF Inj 2 MG/ML Vial IV.PUSH PRN ×6 (03:01→22:44)
[2018-03-10] MEDS: Insulin NovoLOG Aspart Correctional Sugar Inj SQ SCH ×5 (03:03→20:43)
[2018-03-10] MEDS: Spironolactone 50 MG Tablet PO SCH (09:25)
[2018-03-10] MEDS: Furosemide 20 MG Tablet PO SCH (09:25)
--- NOTE | 2018-03-10 17:55 | P.PNIM ---
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 The patient also reports a fever at home to 103. She is an extremely poor historian who does not follow with a program services planner and reports she has been to [facility] in [place] for evaluation of the liver transplant however states she was told that she was "not sick enough to receive a liver." She denies any chest pain. Endorses shortness of breath. No lateralizing signs /symptoms. Patient seen/examined. Complains of significant abdominal pain. Abd US did not reveal much ascites. Will see if we can do a diagnostic paracentesis, especially if patient continues to have fever. Continue Ceftriaxone. 03-06 47 year old female with cirrhosis, IDDM, gallstones, hepatomegaly, kidney stones, and non-Hodgkins lymphoma, presented to the ED on 03/04 due to developing a sever of 103 at home. She was also experiencing nausea, vomiting, and diarrhea. She has drug induced hepatic injury diagnosed in 2016. She has recurrent ascites last drained in Jan. The patient states she is in pain. It is worst in her midepigastric and RUQ. She feels mildly nauseous and states she had 2 episodes of diarrhea but it is improving. She has begged me for a regular diet. She did not sleep well and is scared since she does not know what is wrong and is concerned about her sugar levels. She also was freezing last night despite a warm room. At 6:20 am her sugar went down to 40. She was given juice and it only increased to 69. Her vital signs are within normal limits aside from a blood pressure of 95/63. Her temperature is 97.1 at 8am which is down from 101.8 at 20:00 on 03/05. However, patient reports that her temperature was 103 last night. On physial exam the patient is in mild distress due to pain and fear. Her abdomen is very distended and sensitive to touch on the right side. Her lab results at 7:13 am were WBC of 12.9 and Hgb of 10.5L. 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 1. Abdominal Pain- continue pain medication, which the patient states helps. Possibly switch to solid food diet as patient says the liquids make her more nauseous and in pain. 2. Infection- continue ceftriaxone. Due to recent fever consider performing a diagnostic paracentesis. 3. Diabetes- continue to monitor her glucose levels closely. Follow-up for abdominal pain, fever in a patient with a history of drug-induced nonalcoholic liver cirrhosis. Patient is resting in bed well. Tolerating diet well. She complains of significant abdominal pain. She had a fever of 101.8 F and 100.8 F at midnight. Afebrile since midnight. Levemir was reduced to 12 units nightly was titrated up 03-08 Follow-up sepsis/abdominal pain March 08, 2018-patient seen and examined, continues to complain of abdominal pain and states it is radiating to her back. Afebrile. Labile blood glucose. 03-09 Follow-up sepsis/abdominal pain 03/09: Seen in her bedroom, no nausea, vomit or diarrhea. 03-10 WILL GET AM LABS LOOKS GOOD AT THIS MOMENT IF LABS ARE STABLE [facility]OPEF[facility] HOME TOMORROW DANIEL RN AND PT AND CM Physical Exam Vital signs: Vital Signs 03/09/18 20:00 03/10/18 00:00 03/10/18 08:00 Temperature 98.4 F 98.5 F 98.9 F Pulse Rate 89 95 H 87 Respiratory Rate 16 16 17 Blood Pressure 93/59 L 93/66 L 101/70 Pulse Oximetry 97 98 97 03/10/18 12:00 Temperature 97.7 F Pulse Rate 80 Respiratory Rate 17 Blood Pressure 100/62 Pulse Oximetry 96 Intake & Output 03/09/18 03/10/18 03/10/18 18:59 06:59 18:59 Intake Total 100 / 100 Balance 100 / 100 Weight 55.9 kg Intake: IV 100 / 100 Rocephin Inj 2,000 MG In NS Inj 100 / 100 100 ML @ 200 mls/hr IV.SIG Q24H [facility] Rx#:[id number] Other: # Voids 3 Date of Last Bowel Movement 03/09/18 03/09/18 Narrative: Gen.: No acute distress Head: Normocephalic. Atraumatic. EENT: Pupils equal round and reactive to light. Nose without drainage. Airway intact. Throat without injection. Cardiovascular: Regular rate and rhythm. No murmurs, rubs or gallops. Respiratory: Lungs clear to auscultation bilaterally. No wheezes or rhonchi. Abdomen: Soft, diffusely tender to palpation, mildly distended. +BS Musculoskeletal: No gross deformities. No edema. Skin: No obvious rashes or erythema. Neuro: Sensory and motor grossly intact. Cranial nerves II through XII grossly intact. Results - Labs CBC & Chem 7: 03/07/18 06:38 03/07/18 06:38 Laboratory Results - last 24 hr 03/09/18 03/10/18 03/10/18 19:04 03:01 07:50 POC Glucose 295 H 282 H 74 03/10/18 03/10/18 11:34 16:37 POC Glucose 187 H 200 H - Imaging ITS Impressions Chest X-Ray 03/04/18 19:15 CONCLUSION: Suspected left lower lung atelectasis. Abdomen Ultrasound 03/05/18 00:00 CONCLUSION: 1. Trace to minimal ascites, not enough for safe paracentesis - Procedures 47-year-old female with Sepsis no BSI. Possible spontaneous bacterial peritonitis -Abdominal ultrasound showed trace to minimal amount of ascites. -Continue ceftriaxone 2 g daily. -IV Dilaudid 0.5 mg every 4 hours as needed for pain. Diabetes mellitus -Continue sliding scale insulin. Increase Levemir to 20 units nightly. Drug-induced, nonalcoholic liver cirrhosis History of non-Hodgkin's lymphoma -Patient is scheduled to follow-up with [facility] gastroenterology regarding possible liver transplant. Full code. Ambulation. Assessment and Plan - Plan 47-year-old female with Sepsis no BSI. Possible spontaneous bacterial peritonitis -Abdominal ultrasound showed trace to minimal amount of ascites. -Continue ceftriaxone 2 g daily. -IV Dilaudid 0.5 mg every 4 hours as needed for pain. Diabetes mellitus -Continue sliding scale insulin. continue Levemir to 20 units nightly. adjusted insulin sliding scale. Drug-induced, nonalcoholic liver cirrhosis History of non-Hodgkin's lymphoma -Patient is scheduled to follow-up with [facility] gastroenterology regarding possible liver transplant. AND TO FOLLOW UP WITH GI IN [facility] IN THE H[facility]AL GROUP Full code. Ambulation. Code Status: FULL CODE Discussed Condition With: RN AND PT AND CM Discharge Planning: NEXT 24 TO 48 HOURS
[2018-03-10] MEDS: Insulin Detemir Inj 1,000 UNIT/10 ML Vial SQ SCH (20:43)
--- NOTE | 2018-03-10 21:37 | P.PN ---
Subjective Interval history: Delayed entry for 03/07/2018 Follow-up for abdominal pain, fever in a patient with a history of drug-induced nonalcoholic liver cirrhosis. Patient complains of persistent abdominal pain. Currently afebrile. Tolerating diet well, ambulating well. Physical Exam Vital signs: Vital Signs 03/10/18 00:00 03/10/18 08:00 03/10/18 12:00 Temperature 98.5 F 98.9 F 97.7 F Pulse Rate 95 H 87 80 Respiratory Rate 16 17 17 Blood Pressure 93/66 L 101/70 100/62 Pulse Oximetry 98 97 96 03/10/18 16:00 03/10/18 19:22 Temperature 98.0 F Pulse Rate 81 Respiratory Rate 17 17 Blood Pressure 91/59 L Pulse Oximetry 95 Intake & Output 03/10/18 03/10/18 03/11/18 06:59 18:59 06:59 Intake Total 100 / 100 750 / 750 Balance 100 / 100 750 / 750 Weight 55.9 kg Intake: IV 100 / 100 Rocephin Inj 2,000 MG In NS Inj 100 / 100 100 ML @ 200 mls/hr IV.SIG Q24H [facility] Rx#:[id number] Oral 750 / 750 Other: # Voids 3 5 Date of Last Bowel Movement 03/09/18 # Bowel Movements 1 Narrative: Gen.: No acute distress Head: Normocephalic. Atraumatic. EENT: Pupils equal round and reactive to light. Nose without drainage. Airway intact. Throat without injection. Cardiovascular: Regular rate and rhythm. No murmurs, rubs or gallops. Respiratory: Lungs clear to auscultation bilaterally. No wheezes or rhonchi. Abdomen: Soft, diffusely tender to palpation, mildly distended. +BS Musculoskeletal: No gross deformities. No edema. Skin: No obvious rashes or erythema. Neuro: Sensory and motor grossly intact. Cranial nerves II through XII grossly intact. Results - Labs CBC & Chem 7: 03/07/18 06:38 03/07/18 06:38 Laboratory Results - last 24 hr 03/10/18 03/10/18 03/10/18 03:01 07:50 11:34 POC Glucose 282 H 74 187 H 03/10/18 03/10/18 16:37 20:36 POC Glucose 200 H 371 H - Procedures 47-year-old female with Sepsis no BSI. Possible spontaneous bacterial peritonitis -Abdominal ultrasound showed trace to minimal amount of ascites. -Continue ceftriaxone 2 g daily. -IV Dilaudid 0.5 mg every 4 hours as needed for pain. Diabetes mellitus -Continue sliding scale insulin. Increase Levemir to 20 units nightly. Drug-induced, nonalcoholic liver cirrhosis History of non-Hodgkin's lymphoma -Patient is scheduled to follow-up with [facility] gastroenterology regarding possible liver transplant. Full code. Ambulation. Assessment and Plan - Plan 47-year-old female well-known to me with a past medical history of non-Hodgkin' s lymphoma who underwent chemotherapy in 2004 and 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 Sepsis (heart rate over 100, WBC count 12.9, possible intra-abdominal infection ) Possible spontaneous bacterial peritonitis -Abdominal ultrasound showed trace to minimal amount of ascites. -Continue ceftriaxone 2 g daily. -CBC shows improvement of Leukocytosis. -IV Dilaudid 0.5 mg every 4 hours as needed for pain. -Will consider Cipro for SBP prophylaxis. Diabetes mellitus -Continue sliding scale insulin. Decrease Levemir to 15 units nightly. Drug-induced, nonalcoholic liver cirrhosis History of non-Hodgkin's lymphoma -Patient is scheduled to follow-up with [facility] gastroenterology regarding possible liver transplant. Full code. Ambulation.
[2018-03-11] MEDS: HYDROmorphone PF Inj 2 MG/ML Vial IV.PUSH PRN ×4 (02:28→14:01)
[2018-03-11] MEDS: Insulin NovoLOG Aspart Correctional Sugar Inj SQ SCH ×5 (03:00→21:02)
[2018-03-11 07:55] LABS: Alanine Aminotransferase 72 U/L (10-53); Albumin 1.3 g/dL (3.4-5.0); Anion Gap 8 meq/L (5-15); Aspartate Aminotransferase 114 U/L (15-37); Blood Urea Nitrogen 8 mg/dL (7-18); Calcium 7.2 mg/dL (8.5-10.1); Carbon Dioxide 24.4 meq/L (21.0-32.0); Chloride 108 meq/L (98-107); Free T4 (Free Thyroxine) 1.07 ng/dL (0.76-1.46); Glomerular Filtration Rate Greater Than 89 mL/min (>89); Glucose,Random 67 mg/dL (74-106); Magnesium 1.6 mg/dL (1.5-2.5); Phosphorus 1.8 mg/dL (2.5-4.9); Potassium 3.5 meq/L (3.5-5.1); Sodium 140 meq/L (136-145); Total Protein 5.2 g/dL (6.4-8.2)
[2018-03-11 07:58] LABS: Baso # (Auto) 0.1 th/mm3 (0.0-0.2); Baso % (Auto) 1.3 % (0.0-2.0); Eos # (Auto) 0.1 th/mm3 (0.0-0.4); Eos % (Auto) 0.9 % (0.0-4.0); Hematocrit 30.7 % (35.0-46.0); Lymph # (Auto) 5.9 th/mm3 (1.0-4.8); Mean Corpuscular HGB Conc 32.4 % (32.0-36.0); Mean Corpuscular Volume 89.5 fL (80.0-100.0); Mono # (Auto) 0.3 th/mm3 (0.0-0.9); Mono % (Auto) 3.6 % (0.0-8.0); Neut # (Auto) 2.8 th/mm3 (1.8-7.7); Neut % (Auto) 30.2 % (16.0-70.0); Platelet Count 272 th/mm3 (150-450); Red Blood Count 3.43 mil/mm3 (4.00-5.30); Red Cell Distribution Width 17.8 % (11.6-17.2); White Blood Count 9.2 th/mm3 (4.0-11.0)
[2018-03-11 08:34] LABS: Alkaline Phosphatase 997 U/L (45-117)
[2018-03-11] MEDS: Furosemide 20 MG Tablet PO SCH (09:04)
[2018-03-11] MEDS: Spironolactone 50 MG Tablet PO SCH (09:04)
[2018-03-11] MEDS ORDERED: Magnesium Sulfate Inj 2 GM in Sodium Chlor 0.9% Inj 96 ML IV.SIG ONE (10:00)
[2018-03-11 10:27] LABS: Eosinophils 5 % (0-4); Lymphocytes 28 % (9-44); Metamyelocytes 1 % (0-1); Monocytes 14 % (0-8)
[2018-03-11 10:28] LABS: Howell-Jolly Bodies Present; Platelet Estimate Normal (Normal); Target Cells 3+
--- NOTE | 2018-03-11 15:25 | P.PNIM ---
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 The patient also reports a fever at home to 103. She is an extremely poor historian who does not follow with a machine operator slitter technician and reports she has been to [facility] in [place] for evaluation of the liver transplant however states she was told that she was "not sick enough to receive a liver." She denies any chest pain. Endorses shortness of breath. No lateralizing signs /symptoms. Patient seen/examined. Complains of significant abdominal pain. Abd US did not reveal much ascites. Will see if we can do a diagnostic paracentesis, especially if patient continues to have fever. Continue Ceftriaxone. 03-06 47 year old female with cirrhosis, IDDM, gallstones, hepatomegaly, kidney stones, and non-Hodgkins lymphoma, presented to the ED on 03/04 due to developing a sever of 103 at home. She was also experiencing nausea, vomiting, and diarrhea. She has drug induced hepatic injury diagnosed in 2016. She has recurrent ascites last drained in Jan. The patient states she is in pain. It is worst in her midepigastric and RUQ. She feels mildly nauseous and states she had 2 episodes of diarrhea but it is improving. She has begged me for a regular diet. She did not sleep well and is scared since she does not know what is wrong and is concerned about her sugar levels. She also was freezing last night despite a warm room. At 6:20 am her sugar went down to 40. She was given juice and it only increased to 69. Her vital signs are within normal limits aside from a blood pressure of 95/63. Her temperature is 97.1 at 8am which is down from 101.8 at 20:00 on 03/05. However, patient reports that her temperature was 103 last night. On physial exam the patient is in mild distress due to pain and fear. Her abdomen is very distended and sensitive to touch on the right side. Her lab results at 7:13 am were WBC of 12.9 and Hgb of 10.5L. 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 1. Abdominal Pain- continue pain medication, which the patient states helps. Possibly switch to solid food diet as patient says the liquids make her more nauseous and in pain. 2. Infection- continue ceftriaxone. Due to recent fever consider performing a diagnostic paracentesis. 3. Diabetes- continue to monitor her glucose levels closely. Follow-up for abdominal pain, fever in a patient with a history of drug-induced nonalcoholic liver cirrhosis. Patient is resting in bed well. Tolerating diet well. She complains of significant abdominal pain. She had a fever of 101.8 F and 100.8 F at midnight. Afebrile since midnight. Levemir was reduced to 12 units nightly was titrated up 03-08 Follow-up sepsis/abdominal pain March 08, 2018-patient seen and examined, continues to complain of abdominal pain and states it is radiating to her back. Afebrile. Labile blood glucose. 03-09 Follow-up sepsis/abdominal pain 03/09: Seen in her bedroom, no nausea, vomit or diarrhea. 03-10 WILL GET AM LABS LOOKS GOOD AT THIS MOMENT IF LABS ARE STABLE [facility]OP[facility] HOME TOMORROW DANIEL RN AND PT AND CM 03-11 STILL TAKING IV PAIN MEDS SWITCH TO PO TYLENOL/CODEINE LIQUID SINCE STATES CANNOT TAKE PILLS APPEARS DRUG SEEKING BEHAVIOR TO SOME DEGREE WILL HOPEFULLY DC TO HOME TOMORROW AM LABS DANIEL RN AND PT AND CM REPLACE POTASSIUM AND MAGNESIUM Physical Exam Vital signs: Vital Signs 03/10/18 16:00 03/10/18 19:22 03/10/18 20:00 Temperature 98.0 F 98.4 F Pulse Rate 81 83 Respiratory Rate 17 17 18 Blood Pressure 91/59 L 100/62 Pulse Oximetry 95 96 03/10/18 23:14 03/11/18 00:00 03/11/18 02:58 Temperature 98.5 F Pulse Rate 89 Respiratory Rate 18 18 17 Blood Pressure 96/63 L Pulse Oximetry 96 03/11/18 08:00 03/11/18 12:00 Temperature 98.3 F 98.4 F Pulse Rate 84 85 Respiratory Rate 17 18 Blood Pressure 93/60 L 103/64 Pulse Oximetry 97 95 Intake & Output 03/10/18 03/11/18 03/11/18 18:59 06:59 18:59 Intake Total 750 / 750 580 / 580 100 / 100 Balance 750 / 750 580 / 580 100 / 100 Weight 57 kg Intake: IV 100 / 100 100 / 100 Magnesium Sulfate Inj 2 GM In 100 / 100 NS Inj 96 ML @ 50 mls/hr IV.SIG ONCE ONE Rx#:[id number] Rocephin Inj 2,000 MG In NS Inj 100 / 100 100 ML @ 200 mls/hr IV.SIG Q24H [facility] Rx#:[id number] Oral 750 / 750 480 / 480 Other: # Voids 5 2 Date of Last Bowel Movement 03/09/18 # Bowel Movements 1 Narrative: Gen.: No acute distress Head: Normocephalic. Atraumatic. EENT: Pupils equal round and reactive to light. Nose without drainage. Airway intact. Throat without injection. Cardiovascular: Regular rate and rhythm. No murmurs, rubs or gallops. Respiratory: Lungs clear to auscultation bilaterally. No wheezes or rhonchi. Abdomen: Soft, diffusely tender to palpation, mildly distended. +BS Musculoskeletal: No gross deformities. No edema. Skin: No obvious rashes or erythema. Neuro: Sensory and motor grossly intact. Cranial nerves II through XII grossly intact. Results - Labs CBC & Chem 7: 03/11/18 06:57 03/11/18 06:57 Laboratory Results - last 24 hr 03/10/18 03/10/18 03/11/18 16:37 20:36 02:32 WBC RBC Hgb Hct MCV MCH MCHC RDW Plt Count MPV Prelim Diff (Auto) Neut % (Auto) Lymph % (Auto) [place] % (Auto) Eos % (Auto) Baso % (Auto) Neut # (Auto) Lymph # (Auto) [place] # (Auto) Eos # (Auto) Baso # (Auto) WBC Differential Seg Neuts % (Manual) Band Neuts % (Manual) Lymphocytes % (Manual) Monocytes % (Manual) Eosinophils % (Manual) Basophils % (Manual) Metamyelocytes % (Man) Abs Neuts (Manual) Differential Comment Platelet Estimate Platelet Morphology Target Cells [place] Bodies Sodium Potassium Chloride Carbon Dioxide Anion Gap BUN Creatinine Estimated GFR POC Glucose 200 H 371 H 120 H Random Glucose Calcium Prot Corrected Calcium Phosphorus Magnesium Total Bilirubin AST ALT Alkaline Phosphatase Ammonia Total Protein Albumin TSH Free T4 03/11/18 03/11/18 03/11/18 06:57 06:57 06:57 WBC 9.2 RBC 3.43 L Hgb 10.0 L Hct 30.7 L MCV 89.5 MCH 29.0 MCHC 32.4 RDW 17.8 H Plt Count 272 MPV 11.0 Prelim Diff (Auto) Slide review pending Neut % (Auto) 30.2 Lymph % (Auto) 64.0 H [place] % (Auto) 3.6 Eos % (Auto) 0.9 Baso % (Auto) 1.3 Neut # (Auto) 2.8 Lymph # (Auto) 5.9 H [place] # (Auto) 0.3 Eos # (Auto) 0.1 Baso # (Auto) 0.1 WBC Differential Manual diff final Seg Neuts % (Manual) 44 Band Neuts % (Manual) 7 H Lymphocytes % (Manual) 28 Monocytes % (Manual) 14 H Eosinophils % (Manual) 5 H Basophils % (Manual) 1 Metamyelocytes % (Man) 1 Abs Neuts (Manual) 4.8 Differential Comment . Platelet Estimate Normal Platelet Morphology Enlarged H Target Cells 3+ H [place] Bodies Present H Sodium 140 Potassium 3.5 Chloride 108 H Carbon Dioxide 24.4 Anion Gap 8 BUN 8 Creatinine 0.16 L Estimated GFR Greater than 89 POC Glucose Random Glucose 67 L Calcium 7.2 L* Prot Corrected Calcium 8.2 L Phosphorus 1.8 L Magnesium 1.6 Total Bilirubin 2.6 H AST 114 H ALT 72 H Alkaline Phosphatase 997 H Ammonia 41 H Total Protein 5.2 L Albumin 1.3 L TSH 2.010 Free T4 1.07 03/11/18 03/11/18 03/11/18 07:35 08:10 12:09 WBC RBC Hgb Hct MCV MCH MCHC RDW Plt Count MPV Prelim Diff (Auto) Neut % (Auto) Lymph % (Auto) [place] % (Auto) Eos % (Auto) Baso % (Auto) Neut # (Auto) Lymph # (Auto) [place] # (Auto) Eos # (Auto) Baso # (Auto) WBC Differential Seg Neuts % (Manual) Band Neuts % (Manual) Lymphocytes % (Manual) Monocytes % (Manual) Eosinophils % (Manual) Basophils % (Manual) Metamyelocytes % (Man) Abs Neuts (Manual) Differential Comment Platelet Estimate Platelet Morphology Target Cells [place] Bodies Sodium Potassium Chloride Carbon Dioxide Anion Gap BUN Creatinine Estimated GFR POC Glucose 55 L 82 272 H Random Glucose Calcium Prot Corrected Calcium Phosphorus Magnesium Total Bilirubin AST ALT Alkaline Phosphatase Ammonia Total Protein Albumin TSH Free T4 - Imaging ITS Impressions Chest X-Ray 03/04/18 19:15 CONCLUSION: Suspected left lower lung atelectasis. Abdomen Ultrasound 03/05/18 00:00 CONCLUSION: 1. Trace to minimal ascites, not enough for safe paracentesis - Procedures NONE Assessment and Plan - Plan 47-year-old female with Sepsis no BSI. Possible spontaneous bacterial peritonitis -Abdominal ultrasound showed trace to minimal amount of ascites. -Continue ceftriaxone 2 g daily. -IV Dilaudid 0.5 mg every 4 hours as needed for pain. Diabetes mellitus -Continue sliding scale insulin. continue Levemir to 20 units nightly. adjusted insulin sliding scale. Drug-induced, nonalcoholic liver cirrhosis History of non-Hodgkin's lymphoma -Patient is scheduled to follow-up with [facility] gastroenterology regarding possible liver transplant. AND TO FOLLOW UP WITH GI IN [facility] IN THE HILAL GROUP DRUG SEEKING BEHAVIOR- MULTIPLE ALLERGIES SWITCH TO PO LIQUID CODEINE AND TYLENOL HYPOKALEMIA- WILL REPLACE HYPOMAGNESIA WILL REPLACE Full code. Ambulation. Code Status: FULL CODE Discussed Condition With: RN AND PT AND CM AND FAMILY Discharge Planning: NEXT 24 TO 48 HOURS
[2018-03-11] MEDS: Acetaminophen/Codeine 120/12 MG Elixir 5 ML UDC PO PRN (18:06)
[2018-03-11] MEDS: Insulin Detemir Inj 1,000 UNIT/10 ML Vial SQ SCH (21:02)
[2018-03-12] MEDS: Acetaminophen/Codeine 120/12 MG Elixir 5 ML UDC PO PRN ×3 (00:08→14:44)
[2018-03-12] MEDS: Insulin NovoLOG Aspart Correctional Sugar Inj SQ SCH ×5 (03:53→21:36)
[2018-03-12 09:47] LABS: Hemoglobin 10.3 gm/dL (11.6-15.3); Mean Corpuscular HGB Conc 33.1 % (32.0-36.0); Mean Corpuscular Volume 87.8 fL (80.0-100.0); Mean Platelet Volume 11.3 fL (7.0-11.0); Platelet Count 303 th/mm3 (150-450); Red Blood Count 3.53 mil/mm3 (4.00-5.30); Red Cell Distribution Width 17.4 % (11.6-17.2); White Blood Count 15.4 th/mm3 (4.0-11.0)
[2018-03-12 10:15] LABS: Albumin 1.6 g/dL (3.4-5.0); Anion Gap 6 meq/L (5-15); Aspartate Aminotransferase 137 U/L (15-37); Blood Urea Nitrogen 11 mg/dL (7-18); Calcium 7.7 mg/dL (8.5-10.1); Carbon Dioxide 25.6 meq/L (21.0-32.0); Chloride 108 meq/L (98-107); Glomerular Filtration Rate Greater Than 89 mL/min (>89); Glucose,Random 132 mg/dL (74-106); Potassium 4.2 meq/L (3.5-5.1); Sodium 140 meq/L (136-145)
[2018-03-12 10:30] LABS: Alanine Aminotransferase 75 U/L (10-53); Alkaline Phosphatase 1071 U/L (45-117); Phosphorus 1.8 mg/dL (2.5-4.9); Total Protein 5.5 g/dL (6.4-8.2)
[2018-03-12] MEDS: Spironolactone 50 MG Tablet PO SCH (10:44)
[2018-03-12] MEDS: Furosemide 20 MG Tablet PO SCH (10:45)
[2018-03-12 10:50] LABS: Eosinophils 3 % (0-4); Lymphocytes 4 % (9-44); Monocytes 9 % (0-8); Platelet Estimate Normal (Normal); Platelet Morphology Normal (Normal); Target Cells 2+
[2018-03-12 10:51] LABS: Howell-Jolly Bodies Present
[2018-03-12] MEDS ORDERED: Naloxone Inj 0.4 MG/ML Vial IV.PUSH PRN (14:50)
--- NOTE | 2018-03-12 14:58 | P.PNIM ---
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 The patient also reports a fever at home to 103. She is an extremely poor historian who does not follow with a physician representative and reports she has been to [facility] in [place] for evaluation of the liver transplant however states she was told that she was "not sick enough to receive a liver." She denies any chest pain. Endorses shortness of breath. No lateralizing signs /symptoms. Patient seen/examined. Complains of significant abdominal pain. Abd US did not reveal much ascites. Will see if we can do a diagnostic paracentesis, especially if patient continues to have fever. Continue Ceftriaxone. 03-06 47 year old female with cirrhosis, IDDM, gallstones, hepatomegaly, kidney stones, and non-Hodgkins lymphoma, presented to the ED on 03/04 due to developing a sever of 103 at home. She was also experiencing nausea, vomiting, and diarrhea. She has drug induced hepatic injury diagnosed in 2016. She has recurrent ascites last drained in Jan. The patient states she is in pain. It is worst in her midepigastric and RUQ. She feels mildly nauseous and states she had 2 episodes of diarrhea but it is improving. She has begged me for a regular diet. She did not sleep well and is scared since she does not know what is wrong and is concerned about her sugar levels. She also was freezing last night despite a warm room. At 6:20 am her sugar went down to 40. She was given juice and it only increased to 69. Her vital signs are within normal limits aside from a blood pressure of 95/63. Her temperature is 97.1 at 8am which is down from 101.8 at 20:00 on 03/05. However, patient reports that her temperature was 103 last night. On physial exam the patient is in mild distress due to pain and fear. Her abdomen is very distended and sensitive to touch on the right side. Her lab results at 7:13 am were WBC of 12.9 and Hgb of 10.5L. Her smear showed Kelly-Cotopaxi bodies and Target cells, likely due to her prior splenectomy. 1. Abdominal Pain- continue pain medication, which the patient states helps. Possibly switch to solid food diet as patient says the liquids make her more nauseous and in pain. 2. Infection- continue ceftriaxone. Due to recent fever consider performing a diagnostic paracentesis. 3. Diabetes- continue to monitor her glucose levels closely. Follow-up for abdominal pain, fever in a patient with a history of drug-induced nonalcoholic liver cirrhosis. Patient is resting in bed well. Tolerating diet well. She complains of significant abdominal pain. She had a fever of 101.8 F and 100.8 F at midnight. Afebrile since midnight. Levemir was reduced to 12 units nightly was titrated up 03-08 Follow-up sepsis/abdominal pain March 08, 2018-patient seen and examined, continues to complain of abdominal pain and states it is radiating to her back. Afebrile. Labile blood glucose. 03-09 Follow-up sepsis/abdominal pain 03/09: Seen in her bedroom, no nausea, vomit or diarrhea. 03-10 WILL GET AM LABS LOOKS GOOD AT THIS MOMENT IF LABS ARE STABLE [facility] TOMORROW DANIEL RN AND PT AND CM 03-11 STILL TAKING IV PAIN MEDS SWITCH TO PO TYLENOL/CODEINE LIQUID SINCE STATES CANNOT TAKE PILLS APPEARS DRUG SEEKING BEHAVIOR TO SOME DEGREE WILL HOPEFULLY DC TO HOME TOMORROW AM LABS DANIEL RN AND PT AND CM REPLACE POTASSIUM AND MAGNESIUM 03-12 STATES CAN NOW TAKE PILLS IF CRUSHED WILL SWITCH TO PERCOCET THAT CAN BE CRUSHED HAD FEVERS LAST NIGHT CHECK UA AND CXR AND LABS AND BLOOD CULTURES Physical Exam Vital signs: Vital Signs 03/11/18 16:00 03/11/18 19:00 03/11/18 20:00 Temperature 98.3 F 98.3 F Pulse Rate 83 88 Respiratory Rate 18 18 18 Blood Pressure 98/58 L 88/53 L Pulse Oximetry 97 97 03/11/18 21:25 03/11/18 23:36 03/12/18 00:00 Temperature 98.1 F 101.8 F H Pulse Rate 94 H 113 H Respiratory Rate 22 20 20 Blood Pressure 138/76 88/61 L Pulse Oximetry 98 95 03/12/18 00:38 03/12/18 04:00 03/12/18 07:20 Temperature 99.8 F H Pulse Rate 95 H Respiratory Rate 18 18 18 Blood Pressure 95/59 L Pulse Oximetry 97 03/12/18 08:00 03/12/18 12:00 Temperature 98.2 F 97.5 F L Pulse Rate 77 69 Respiratory Rate 17 17 Blood Pressure 91/53 L 92/57 L Pulse Oximetry 98 97 Intake & Output 03/11/18 03/12/18 03/12/18 18:59 06:59 18:59 Intake Total 750 / 750 340 / 340 Balance 750 / 750 340 / 340 Weight 60.5 kg Intake: IV 100 / 100 100 / 100 Magnesium Sulfate Inj 2 GM In 100 / 100 NS Inj 96 ML @ 50 mls/hr IV.SIG ONCE ONE Rx#:[id number] Rocephin Inj 2,000 MG In NS Inj 100 / 100 100 ML @ 200 mls/hr IV.SIG Q24H DESTINI Rx#:[id number] Oral 650 / 650 240 / 240 Other: # Voids 5 3 # Bowel Movements 1 Narrative: Gen.: No acute distress Head: Normocephalic. Atraumatic. EENT: Pupils equal round and reactive to light. Nose without drainage. Airway intact. Throat without injection. Cardiovascular: Regular rate and rhythm. No murmurs, rubs or gallops. Respiratory: Lungs clear to auscultation bilaterally. No wheezes or rhonchi. Abdomen: Soft, diffusely tender to palpation, mildly distended. +BS Musculoskeletal: No gross deformities. No edema. Skin: No obvious rashes or erythema. Neuro: Sensory and motor grossly intact. Cranial nerves II through XII grossly intact. Results - Labs CBC & Chem 7: 03/12/18 08:36 03/12/18 08:36 Laboratory Results - last 24 hr 03/11/18 03/11/18 03/11/18 06:57 16:37 20:51 WBC RBC Hgb Hct MCV MCH MCHC RDW Plt Count MPV Prelim Diff (Auto) WBC Differential Seg Neuts % (Manual) Band Neuts % (Manual) Lymphocytes % (Manual) Monocytes % (Manual) Eosinophils % (Manual) Abs Neuts (Manual) Differential Comment Platelet Estimate Platelet Morphology Target Cells Kelly-Cot[place]ax[place] Bodies Sodium Potassium Chloride Carbon Dioxide Anion Gap BUN Creatinine Estimated GFR POC Glucose 251 H 350 H Random Glucose Hemoglobin A1c 10.0 H Calcium Phosphorus Magnesium Total Bilirubin AST ALT Alkaline Phosphatase Total Protein Albumin 03/12/18 03/12/18 03/12/18 03:47 05:55 07:30 WBC RBC Hgb Hct MCV MCH MCHC RDW Plt Count MPV Prelim Diff (Auto) WBC Differential Seg Neuts % (Manual) Band Neuts % (Manual) Lymphocytes % (Manual) Monocytes % (Manual) Eosinophils % (Manual) Abs Neuts (Manual) Differential Comment Platelet Estimate Platelet Morphology Target Cells Kelly-C[place] Bodies Sodium Potassium Chloride Carbon Dioxide Anion Gap BUN Creatinine Estimated GFR POC Glucose 175 H 143 H 146 H Random Glucose Hemoglobin A1c Calcium Phosphorus Magnesium Total Bilirubin AST ALT Alkaline Phosphatase Total Protein Albumin 03/12/18 03/12/18 03/12/18 08:36 08:36 12:53 WBC 15.4 H RBC 3.53 L Hgb 10.3 L Hct 31.0 L MCV 87.8 MCH 29.0 MCHC 33.1 RDW 17.4 H Plt Count 303 MPV 11.3 H Prelim Diff (Auto) Manual diff required WBC Differential Manual diff final Seg Neuts % (Manual) 71 H Band Neuts % (Manual) 13 H Lymphocytes % (Manual) 4 L Monocytes % (Manual) 9 H Eosinophils % (Manual) 3 Abs Neuts (Manual) 12.9 H Differential Comment . Platelet Estimate Normal Platelet Morphology Normal Target Cells 2+ H Kelly-Cot[place]ax[place] Bodies Present H Sodium 140 Potassium 4.2 Chloride 108 H Carbon Dioxide 25.6 Anion Gap 6 BUN 11 Creatinine 0.30 L Estimated GFR Greater than 89 POC Glucose 204 H Random Glucose 132 H Hemoglobin A1c Calcium 7.7 L Phosphorus 1.8 L Magnesium 2.0 Total Bilirubin 3.2 H AST 137 H ALT 75 H Alkaline Phosphatase 1071 H Total Protein 5.5 L Albumin 1.6 L - Imaging ITS Impressions Chest X-Ray 03/04/18 19:15 CONCLUSION: Suspected left lower lung atelectasis. Abdomen Ultrasound 03/05/18 00:00 CONCLUSION: 1. Trace to minimal ascites, not enough for safe paracentesis - Procedures NONE Assessment and Plan - Plan 47-year-old female with Sepsis no BSI. Possible spontaneous bacterial peritonitis -Abdominal ultrasound showed trace to minimal amount of ascites. -Continue ceftriaxone 2 g daily. -IV Dilaudid 0.5 mg every 4 hours as needed for pain. Diabetes mellitus -Continue sliding scale insulin. continue Levemir to 20 units nightly. adjusted insulin sliding scale. Drug-induced, nonalcoholic liver cirrhosis History of non-Hodgkin's lymphoma -Patient is scheduled to follow-up with [facility] gastroenterology regarding possible liver transplant. AND TO FOLLOW UP WITH GI IN [facility] IN THE [place] GROUP DRUG SEEKING BEHAVIOR- MULTIPLE ALLERGIES SWITCH TO PO PERCOCET HYPOKALEMIA- WILL REPLACE HYPOMAGNESIA WILL REPLACE Full code. Ambulation. Code Status: FULL CODE Discussed Condition With: RN AND PT AND CM Discharge Planning: NEXT 24 TO 48 HOURS
--- NOTE | 2018-03-12 16:43 | XR ---
EXAM DATE: 03/12/2018 12:00 AM EDT AGE/SEX: 47 years / Female INDICATIONS: . Fever. CLINICAL DATA: This is the patient's subsequent encounter. Patient reports that signs and symptoms h ave been present for 1 week and indicates a pain score of 0/10. MEDICAL/SURGICAL HISTORY: . Cirrhosis. Diabetic. Hepatomegaly. Non Hodgkin's lymphoma. Splene ctomy. COMPARISON: No prior exams available for comparison. FINDINGS: PA and lateral views of the chest demonstrate left basilar consolidation. Small left pleural effusion . Linear densities in the right mid lung. Heart in the upper limits of normal in size. The cardiomediastinal contours are unremarkable. Osseous structures are intact. CONCLUSION: 1. Left basilar consolidation likely pneumonia. 2. Small left pleural effusion. 3. Minimal scarring right midlung. Electronically signed by: Delvin Hodge MD 03/12/2018 4:42 PM EDT
[2018-03-12] MEDS: oxyCODONE/Acetaminophen 10/325 Tablet PO PRN (18:02)
[2018-03-12] MEDS: Insulin Detemir Inj 1,000 UNIT/10 ML Vial SQ SCH (21:35)
[2018-03-13] MEDS: Insulin NovoLOG Aspart Correctional Sugar Inj SQ SCH ×5 (03:52→20:09)
[2018-03-13 06:42] LABS: Bilirubin,Urine Negative (Negative); Clarity,Urine Hazy (Clear); Color,Urine Amber (Yellw/Straw); Glucose,Urine (UA) Negative (Negative); Leukocyte Esterase,Urine Negative (Negative); Mucus,Urine Few /lpf (Occasional); Nitrite,Urine Negative (Negative); Specific Gravity,Urine 1.011 (1.002-1.035); Squamous Epithelial Cell,Urine 1 /hpf (0-5)
[2018-03-13 08:00] LABS: Hematocrit 31.7 % (35.0-46.0); Hemoglobin 10.3 gm/dL (11.6-15.3); Mean Corpuscular HGB Conc 32.5 % (32.0-36.0); Mean Corpuscular Hemoglobin 28.7 pg (27.0-34.0); Mean Corpuscular Volume 88.4 fL (80.0-100.0); Mean Platelet Volume 11.2 fL (7.0-11.0); Platelet Count 323 th/mm3 (150-450); Red Blood Count 3.58 mil/mm3 (4.00-5.30); Red Cell Distribution Width 17.6 % (11.6-17.2); White Blood Count 9.6 th/mm3 (4.0-11.0)
[2018-03-13] MEDS: Furosemide 20 MG Tablet PO SCH (08:24)
[2018-03-13] MEDS: Spironolactone 50 MG Tablet PO SCH (08:24)
[2018-03-13 08:33] LABS: Alanine Aminotransferase 68 U/L (10-53); Albumin 1.4 g/dL (3.4-5.0); Alkaline Phosphatase 971 U/L (45-117); Anion Gap 8 meq/L (5-15); Aspartate Aminotransferase 120 U/L (15-37); Blood Urea Nitrogen 10 mg/dL (7-18); Calcium 7.4 mg/dL (8.5-10.1); Carbon Dioxide 23.6 meq/L (21.0-32.0); Chloride 108 meq/L (98-107); Glomerular Filtration Rate Greater Than 89 mL/min (>89); Glucose,Random 123 mg/dL (74-106); Magnesium 1.6 mg/dL (1.5-2.5); Phosphorus 1.8 mg/dL (2.5-4.9); Potassium 3.8 meq/L (3.5-5.1); Sodium 140 meq/L (136-145); Total Protein 5.3 g/dL (6.4-8.2)
[2018-03-13 09:47] LABS: Eosinophils 1 % (0-4); Lymphocytes 11 % (9-44); Monocytes 10 % (0-8); Platelet Estimate Normal (Normal); Tallied Nucleated RBC 1 (0-0)
[2018-03-13 09:48] LABS: Target Cells 1+
[2018-03-13] MEDS: Azithromycin 250 MG Tablet PO SCH (11:06)
[2018-03-13] MEDS: oxyCODONE/Acetaminophen 10/325 Tablet PO PRN ×2 (12:07→17:58)
--- NOTE | 2018-03-13 13:04 | P.PNIM ---
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 The patient also reports a fever at home to 103. She is an extremely poor historian who does not follow with a psychiatry resident and reports she has been to [facility] in [place] for evaluation of the liver transplant however states she was told that she was "not sick enough to receive a liver." She denies any chest pain. Endorses shortness of breath. No lateralizing signs /symptoms. Patient seen/examined. Complains of significant abdominal pain. Abd US did not reveal much ascites. Will see if we can do a diagnostic paracentesis, especially if patient continues to have fever. Continue Ceftriaxone. 03-06 47 year old female with cirrhosis, IDDM, gallstones, hepatomegaly, kidney stones, and non-Hodgkins lymphoma, presented to the ED on 03/04 due to developing a sever of 103 at home. She was also experiencing nausea, vomiting, and diarrhea. She has drug induced hepatic injury diagnosed in 2016. She has recurrent ascites last drained in Jan. The patient states she is in pain. It is worst in her midepigastric and RUQ. She feels mildly nauseous and states she had 2 episodes of diarrhea but it is improving. She has begged me for a regular diet. She did not sleep well and is scared since she does not know what is wrong and is concerned about her sugar levels. She also was freezing last night despite a warm room. At 6:20 am her sugar went down to 40. She was given juice and it only increased to 69. Her vital signs are within normal limits aside from a blood pressure of 95/63. Her temperature is 97.1 at 8am which is down from 101.8 at 20:00 on 03/05. However, patient reports that her temperature was 103 last night. On physial exam the patient is in mild distress due to pain and fear. Her abdomen is very distended and sensitive to touch on the right side. Her lab results at 7:13 am were WBC of 12.9 and Hgb of 10.5L. Her smear showed Kelly-Marland bodies and Target cells, likely due to her prior splenectomy. 1. Abdominal Pain- continue pain medication, which the patient states helps. Possibly switch to solid food diet as patient says the liquids make her more nauseous and in pain. 2. Infection- continue ceftriaxone. Due to recent fever consider performing a diagnostic paracentesis. 3. Diabetes- continue to monitor her glucose levels closely. Follow-up for abdominal pain, fever in a patient with a history of drug-induced nonalcoholic liver cirrhosis. Patient is resting in bed well. Tolerating diet well. She complains of significant abdominal pain. She had a fever of 101.8 F and 100.8 F at midnight. Afebrile since midnight. Levemir was reduced to 12 units nightly was titrated up 03-08 Follow-up sepsis/abdominal pain March 08, 2018-patient seen and examined, continues to complain of abdominal pain and states it is radiating to her back. Afebrile. Labile blood glucose. 03-09 Follow-up sepsis/abdominal pain 03/09: Seen in her bedroom, no nausea, vomit or diarrhea. 03-10 WILL GET AM LABS LOOKS GOOD AT THIS MOMENT IF LABS ARE STABLE [facility] TOMORROW DANIEL RN AND PT AND CM 03-11 STILL TAKING IV PAIN MEDS SWITCH TO PO TYLENOL/CODEINE LIQUID SINCE STATES CANNOT TAKE PILLS APPEARS DRUG SEEKING BEHAVIOR TO SOME DEGREE WILL HOPEFULLY DC TO HOME TOMORROW AM LABS DANIEL RN AND PT AND CM REPLACE POTASSIUM AND MAGNESIUM 03-12 STATES CAN NOW TAKE PILLS IF CRUSHED WILL SWITCH TO PERCOCET THAT CAN BE CRUSHED HAD FEVERS LAST NIGHT CHECK UA AND CXR AND LABS AND BLOOD CULTURES 03-13 WANTS PARACENTESIS WANTS ALL PILL CRUSHED WANTS IV DILAUDID- HAVE MADE PO PILLS THAT CAN BE CRUSHED AVAILABLE DANIEL RN AND PT AND CM Physical Exam Vital signs: Vital Signs 03/12/18 16:00 03/12/18 20:00 03/12/18 21:01 Temperature 97.9 F 97.9 F Pulse Rate 81 79 86 Respiratory Rate 17 16 18 Blood Pressure 97/59 L 91/56 L 92/57 L Pulse Oximetry 99 97 96 03/13/18 00:00 03/13/18 04:00 03/13/18 08:00 Temperature 98.3 F 98.2 F 99.2 F Pulse Rate 79 78 84 Respiratory Rate 16 17 17 Blood Pressure 92/60 L 98/60 L 101/67 Pulse Oximetry 97 97 96 03/13/18 12:00 Temperature 98.5 F Pulse Rate 81 Respiratory Rate 16 Blood Pressure 101/61 Pulse Oximetry 96 Intake & Output 03/12/18 03/13/18 03/13/18 18:59 06:59 18:59 Intake Total 700 / 700 Output Total 1000 / 1000 Balance -300 / -300 Weight 60.4 kg Intake: IV 100 / 100 Rocephin Inj 2,000 MG In NS Inj 100 / 100 100 ML @ 200 mls/hr IV.SIG Q24H DESTINI Rx#:[id number] Oral 600 / 600 Output: Urine 1000 / 1000 Other: # Voids 2 Narrative: Gen.: No acute distress Head: Normocephalic. Atraumatic. EENT: Pupils equal round and reactive to light. Nose without drainage. Airway intact. Throat without injection. Cardiovascular: Regular rate and rhythm. No murmurs, rubs or gallops. Respiratory: Lungs clear to auscultation bilaterally. No wheezes or rhonchi. Abdomen: Soft, diffusely tender to palpation, mildly distended. +BS MORE DISTENDED Musculoskeletal: No gross deformities. No edema. Skin: No obvious rashes or erythema. Neuro: Sensory and motor grossly intact. Cranial nerves II through XII grossly intact. Results - Labs CBC & Chem 7: 03/13/18 07:07 03/13/18 07:07 Laboratory Results - last 24 hr 03/12/18 03/12/18 03/12/18 12:53 17:57 20:56 WBC RBC Hgb Hct MCV MCH MCHC RDW Plt Count MPV Prelim Diff (Auto) WBC Differential Seg Neuts % (Manual) Band Neuts % (Manual) Lymphocytes % (Manual) Monocytes % (Manual) Eosinophils % (Manual) Abs Neuts (Manual) Nucleated RBCs/100 WBC Differential Comment Platelet Estimate Platelet Morphology Target Cells Sodium Potassium Chloride Carbon Dioxide Anion Gap BUN Creatinine Estimated GFR POC Glucose 204 H 399 H 177 H Random Glucose Calcium Prot Corrected Calcium Phosphorus Magnesium Total Bilirubin AST ALT Alkaline Phosphatase Total Protein Albumin Urine Color Urine Clarity Urine pH Ur Specific [place] Urine Protein Urine Glucose (UA) Urine Ketones Urine Occult Blood Urine Nitrate Urine Bilirubin Urine Urobilinogen Ur Leukocyte Esterase Urine RBC Urine WBC Ur Squamous Epith Cells Urine Mucus Urine Yeast Micro UA Comment Ur Microscopic Review Urine Culture Comments 03/13/18 03/13/18 03/13/18 03:41 06:05 07:07 WBC 9.6 RBC 3.58 L Hgb 10.3 L Hct 31.7 L MCV 88.4 MCH 28.7 MCHC 32.5 RDW 17.6 H Plt Count 323 MPV 11.2 H Prelim Diff (Auto) Manual diff required WBC Differential Manual diff final Seg Neuts % (Manual) 69 Band Neuts % (Manual) 9 H Lymphocytes % (Manual) 11 Monocytes % (Manual) 10 H Eosinophils % (Manual) 1 Abs Neuts (Manual) 7.5 Nucleated RBCs/100 WBC 1 H Differential Comment . Platelet Estimate Normal Platelet Morphology Enlarged H Target Cells 1+ H Sodium Potassium Chloride Carbon Dioxide Anion Gap BUN Creatinine Estimated GFR POC Glucose 133 H Random Glucose Calcium Prot Corrected Calcium Phosphorus Magnesium Total Bilirubin AST ALT Alkaline Phosphatase Total Protein Albumin Urine Color Sheri Urine Clarity Hazy H Urine pH 6.0 Ur Specific [place] 1.011 Urine Protein Negative Urine Glucose (UA) Negative Urine Ketones Negative Urine Occult Blood Negative Urine Nitrate Negative Urine Bilirubin Negative Urine Urobilinogen Less than 2 Ur Leukocyte Esterase Negative Urine RBC 1 Urine WBC 2 Ur Squamous Epith Cells 1 Urine Mucus Few H Urine Yeast Many H Micro UA Comment Culture indicated Ur Microscopic Review Not Reportable Urine Culture Comments Culture indicated 03/13/18 03/13/18 03/13/18 07:07 08:23 11:08 WBC RBC Hgb Hct MCV MCH MCHC RDW Plt Count MPV Prelim Diff (Auto) WBC Differential Seg Neuts % (Manual) Band Neuts % (Manual) Lymphocytes % (Manual) Monocytes % (Manual) Eosinophils % (Manual) Abs Neuts (Manual) Nucleated RBCs/100 WBC Differential Comment Platelet Estimate Platelet Morphology Target Cells Sodium 140 Potassium 3.8 Chloride 108 H Carbon Dioxide 23.6 Anion Gap 8 BUN 10 Creatinine 0.29 L Estimated GFR Greater than 89 POC Glucose 125 H 213 H Random Glucose 123 H Calcium 7.4 L* Prot Corrected Calcium 8.4 L Phosphorus 1.8 L Magnesium 1.6 Total Bilirubin 2.6 H AST 120 H ALT 68 H Alkaline Phosphatase 971 H Total Protein 5.3 L Albumin 1.4 L Urine Color Urine Clarity Urine pH Ur Specific [place] Urine Protein Urine Glucose (UA) Urine Ketones Urine Occult Blood Urine Nitrate Urine Bilirubin Urine Urobilinogen Ur Leukocyte Esterase Urine RBC Urine WBC Ur Squamous Epith Cells Urine Mucus Urine Yeast Micro UA Comment Ur Microscopic Review Urine Culture Comments Microbiology 03/12/18 00:40 Blood - Peripheral Aerobic Blood Culture - Preliminary No growth in 1 day 03/12/18 00:40 Blood - Peripheral Anaerobic Blood Culture - Preliminary No growth in 1 day 03/12/18 00:45 Blood - Peripheral Aerobic Blood Culture - Preliminary No growth in 1 day 03/12/18 00:45 Blood - Peripheral Anaerobic Blood Culture - Preliminary No growth in 1 day - Imaging Impressions Chest X-Ray 03/12/18 00:00 CONCLUSION: 1. Left basilar consolidation likely pneumonia. 2. Small left pleural effusion. 3. Minimal scarring right midlung. - Procedures NONE Assessment and Plan - Plan 47-year-old female with Sepsis no BSI. Possible spontaneous bacterial peritonitis -Abdominal ultrasound showed trace to minimal amount of ascites. -Continue ceftriaxone 2 g daily. -IV Dilaudid 0.5 mg every 4 hours as needed for pain. Diabetes mellitus -Continue sliding scale insulin. continue Levemir to 20 units nightly. adjusted insulin sliding scale. Drug-induced, nonalcoholic liver cirrhosis History of non-Hodgkin's lymphoma -Patient is scheduled to follow-up with [facility] gastroenterology regarding possible liver transplant. AND TO FOLLOW UP WITH GI IN [facility] IN THE [place] DRUG SEEKING BEHAVIOR- MULTIPLE ALLERGIES SWITCH TO PO PERCOCET PNEUMONIA- CONTINUE ROCEPHIN ADD ZITHROMAX UTI FUNGAL ADD DIFLUCAN CONSULT IR FOR PARACENTESIS HYPOKALEMIA- WILL REPLACE HYPOMAGNESIA WILL REPLACE Full code. Ambulation. Code Status: FULL CODE Discussed Condition With: RN AND PT AND CM Discharge Planning: ONCE AFEBRILE AND HAS HAD PARACENTESIS
[2018-03-13] MEDS ORDERED: Magnesium Sulfate Inj 2 GM in Sodium Chlor 0.9% Inj 96 ML IV.SIG ONE (14:00)
--- NOTE | 2018-03-13 14:40 | US ---
EXAM DATE: 03/13/2018 2:32 PM EDT AGE/SEX: 47 years / Female INDICATIONS: Evaluate for ascites. CLINICAL DATA: This is the patient's subsequent encounter. Patient reports that signs and symptoms h ave been present for 1 day and indicates a pain score of 7/10. MEDICAL/SURGICAL HISTORY: . Cirrhosis. Diabetic. Gallstones, Hepatomegaly. Kidney stone. N on Hodgkin's lymphoma. . Splenectomy. Liver biopsy. [place] [facility] [place]. . FINDINGS: Masses: None Fluid Collections: None Other: None. CONCLUSION: 1. No sonographic evidence for ascites. Electronically signed by: Carlos Tobias MD 03/13/2018 2:39 PM EDT
[2018-03-13 15:15] LABS: Hematocrit 33.2 % (35.0-46.0); Hemoglobin 10.8 gm/dL (11.6-15.3); Mean Corpuscular HGB Conc 32.5 % (32.0-36.0); Mean Corpuscular Hemoglobin 28.8 pg (27.0-34.0); Mean Corpuscular Volume 88.4 fL (80.0-100.0); Mean Platelet Volume 11.6 fL (7.0-11.0); Platelet Count 342 th/mm3 (150-450); Red Blood Count 3.76 mil/mm3 (4.00-5.30); Red Cell Distribution Width 17.7 % (11.6-17.2); White Blood Count 9.1 th/mm3 (4.0-11.0)
[2018-03-13 15:25] LABS: Activated Partial Thrombo Time 27.9 sec (24.3-30.1); INR 1.1 Ratio; Prothrombin Time 11.1 sec (9.8-11.6)
[2018-03-13 15:59] LABS: Total Protein 5.9 g/dL (6.4-8.2)
[2018-03-13] MEDS: Insulin Detemir Inj 1,000 UNIT/10 ML Vial SQ SCH (20:09)
[2018-03-13 23:40] VITALS: RESP 18
[2018-03-14] MEDS: oxyCODONE/Acetaminophen 10/325 Tablet PO PRN (00:15)
[2018-03-14] MEDS: Insulin NovoLOG Aspart Correctional Sugar Inj SQ SCH ×4 (03:19→17:45)
[2018-03-14 05:15] LABS: Hematocrit 32.3 % (35.0-46.0); Hemoglobin 10.6 gm/dL (11.6-15.3); Mean Corpuscular Volume 87.8 fL (80.0-100.0); Mean Platelet Volume 10.9 fL (7.0-11.0); Platelet Count 321 th/mm3 (150-450); Red Blood Count 3.68 mil/mm3 (4.00-5.30); Red Cell Distribution Width 17.5 % (11.6-17.2); White Blood Count 8.4 th/mm3 (4.0-11.0)
[2018-03-14 05:20] LABS: Alanine Aminotransferase 76 U/L (10-53); Albumin 1.7 g/dL (3.4-5.0); Alkaline Phosphatase 1045 U/L (45-117); Anion Gap 9 meq/L (5-15); Aspartate Aminotransferase 134 U/L (15-37); Blood Urea Nitrogen 13 mg/dL (7-18); Calcium 7.9 mg/dL (8.5-10.1); Carbon Dioxide 23.1 meq/L (21.0-32.0); Chloride 107 meq/L (98-107); Glomerular Filtration Rate Greater Than 89 mL/min (>89); Glucose,Random 204 mg/dL (74-106); Magnesium 2.2 mg/dL (1.5-2.5); Phosphorus 1.9 mg/dL (2.5-4.9); Sodium 139 meq/L (136-145); Total Protein 5.9 g/dL (6.4-8.2)
[2018-03-14 05:21] LABS: Potassium 4.7 meq/L (3.5-5.1)
[2018-03-14] MEDS: Furosemide 20 MG Tablet PO SCH (07:59)
[2018-03-14] MEDS: Azithromycin 250 MG Tablet PO SCH (08:00)
[2018-03-14] MEDS: Spironolactone 50 MG Tablet PO SCH (08:00)
[2018-03-14 08:21] LABS: Eosinophils 1 % (0-4); Lymphocytes 5 % (9-44); Monocytes 10 % (0-8); Target Cells 2+
[2018-03-14 08:22] LABS: Howell-Jolly Bodies Present; Platelet Estimate Normal (Normal)
--- NOTE | 2018-03-14 14:36 | P.PNIM ---
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 The patient also reports a fever at home to 103. She is an extremely poor historian who does not follow with a ethanol quality leader and reports she has been to [facility] in [place] for evaluation of the liver transplant however states she was told that she was "not sick enough to receive a liver." She denies any chest pain. Endorses shortness of breath. No lateralizing signs /symptoms. Patient seen/examined. Complains of significant abdominal pain. Abd US did not reveal much ascites. Will see if we can do a diagnostic paracentesis, especially if patient continues to have fever. Continue Ceftriaxone. 03-06 47 year old female with cirrhosis, IDDM, gallstones, hepatomegaly, kidney stones, and non-Hodgkins lymphoma, presented to the ED on 03/04 due to developing a sever of 103 at home. She was also experiencing nausea, vomiting, and diarrhea. She has drug induced hepatic injury diagnosed in 2016. She has recurrent ascites last drained in Jan. The patient states she is in pain. It is worst in her midepigastric and RUQ. She feels mildly nauseous and states she had 2 episodes of diarrhea but it is improving. She has begged me for a regular diet. She did not sleep well and is scared since she does not know what is wrong and is concerned about her sugar levels. She also was freezing last night despite a warm room. At 6:20 am her sugar went down to 40. She was given juice and it only increased to 69. Her vital signs are within normal limits aside from a blood pressure of 95/63. Her temperature is 97.1 at 8am which is down from 101.8 at 20:00 on 03/05. However, patient reports that her temperature was 103 last night. On physial exam the patient is in mild distress due to pain and fear. Her abdomen is very distended and sensitive to touch on the right side. Her lab results at 7:13 am were WBC of 12.9 and Hgb of 10.5L. 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 1. Abdominal Pain- continue pain medication, which the patient states helps. Possibly switch to solid food diet as patient says the liquids make her more nauseous and in pain. 2. Infection- continue ceftriaxone. Due to recent fever consider performing a diagnostic paracentesis. 3. Diabetes- continue to monitor her glucose levels closely. Follow-up for abdominal pain, fever in a patient with a history of drug-induced nonalcoholic liver cirrhosis. Patient is resting in bed well. Tolerating diet well. She complains of significant abdominal pain. She had a fever of 101.8 F and 100.8 F at midnight. Afebrile since midnight. Levemir was reduced to 12 units nightly was titrated up 03-08 Follow-up sepsis/abdominal pain March 08, 2018-patient seen and examined, continues to complain of abdominal pain and states it is radiating to her back. Afebrile. Labile blood glucose. 03-09 Follow-up sepsis/abdominal pain 03/09: Seen in her bedroom, no nausea, vomit or diarrhea. 03-10 WILL GET AM LABS LOOKS GOOD AT THIS MOMENT IF LABS ARE STABLE [facility] HOME TOMORROW DANIEL RN AND PT AND CM 03-11 STILL TAKING IV PAIN MEDS SWITCH TO PO TYLENOL/CODEINE LIQUID SINCE STATES CANNOT TAKE PILLS APPEARS DRUG SEEKING BEHAVIOR TO SOME DEGREE WILL HOPEFULLY DC TO HOME TOMORROW AM LABS DANIEL RN AND PT AND CM REPLACE POTASSIUM AND MAGNESIUM 03-12 STATES CAN NOW TAKE PILLS IF CRUSHED WILL SWITCH TO PERCOCET THAT CAN BE CRUSHED HAD FEVERS LAST NIGHT CHECK UA AND CXR AND LABS AND BLOOD CULTURES 03-13 WANTS [facility] WANTS ALL PILL CRUSHED WANTS IV DILAUDID- HAVE MADE PO PILLS THAT CAN BE CRUSHED AVAILABLE DANIEL RN AND PT AND CM 03-14 DC TO HOME TODAY [facility] [place] DC TO HOME TODAY SWITCH TO PO MEDS Physical Exam Vital signs: Vital Signs 03/13/18 15:41 03/13/18 20:00 03/14/18 00:00 Temperature 98.5 F 98.5 F 98.0 F Pulse Rate 81 85 86 Respiratory Rate 16 18 18 Blood Pressure 89/57 L 100/70 117/61 Pulse Oximetry 97 95 96 03/14/18 08:00 03/14/18 12:00 Temperature 98.2 F 98.5 F Pulse Rate 76 85 Respiratory Rate 18 18 Blood Pressure 92/54 L 104/63 Pulse Oximetry 97 98 Intake & Output 03/13/18 03/14/18 03/14/18 18:59 06:59 18:59 Intake Total 100 / 100 100 / 100 Balance 100 / 100 100 / 100 Weight 59.4 kg Intake: IV 100 / 100 100 / 100 Magnesium Sulfate Inj 2 GM In 100 / 100 NS Inj 96 ML @ 50 mls/hr IV.SIG ONCE ONE Rx#:[id number] Rocephin Inj 2,000 MG In NS Inj 100 / 100 100 ML @ 200 mls/hr IV.SIG Q24H DESTINI Rx#:[id number] Other: # Voids 2 Date of Last Bowel Movement 03/14/18 Narrative: Gen.: No acute distress Head: Normocephalic. Atraumatic. EENT: Pupils equal round and reactive to light. Nose without drainage. Airway intact. Throat without injection. Cardiovascular: Regular rate and rhythm. No murmurs, rubs or gallops. Respiratory: Lungs clear to auscultation bilaterally. No wheezes or rhonchi. Abdomen: Soft, diffusely tender to palpation, mildly distended. +BS MORE DISTENDED Musculoskeletal: No gross deformities. No edema. Skin: No obvious rashes or erythema. Neuro: Sensory and motor grossly intact. Cranial nerves II through XII grossly intact. Results - Labs CBC & Chem 7: 03/14/18 04:32 03/14/18 04:32 Laboratory Results - last 24 hr 03/13/18 03/13/18 03/13/18 14:24 14:24 14:24 WBC 9.1 RBC 3.76 L Hgb 10.8 L Hct 33.2 L MCV 88.4 MCH 28.8 MCHC 32.5 RDW 17.7 H Plt Count 342 MPV 11.6 H Prelim Diff (Auto) WBC Differential Seg Neuts % (Manual) Band Neuts % (Manual) Lymphocytes % (Manual) Monocytes % (Manual) Eosinophils % (Manual) Basophils % (Manual) Abs Neuts (Manual) Differential Comment Platelet Estimate Platelet Morphology Target Cells [place] Bodies PT 11.1 INR 1.1 APTT 27.9 Sodium Potassium Chloride Carbon Dioxide Anion Gap BUN Creatinine Estimated GFR POC Glucose Random Glucose Calcium Phosphorus Magnesium Total Bilirubin AST ALT Alkaline Phosphatase Ammonia Lactate Dehydrogenase 202 Total Protein 5.9 L D Albumin 03/13/18 03/13/18 03/14/18 15:43 20:03 03:18 WBC RBC Hgb Hct MCV MCH MCHC RDW Plt Count MPV Prelim Diff (Auto) WBC Differential Seg Neuts % (Manual) Band Neuts % (Manual) Lymphocytes % (Manual) Monocytes % (Manual) Eosinophils % (Manual) Basophils % (Manual) Abs Neuts (Manual) Differential Comment Platelet Estimate Platelet Morphology Target Cells [place] Bodies PT INR APTT Sodium Potassium Chloride Carbon Dioxide Anion Gap BUN Creatinine Estimated GFR POC Glucose 400 H 317 H 263 H Random Glucose Calcium Phosphorus Magnesium Total Bilirubin AST ALT Alkaline Phosphatase Ammonia Lactate Dehydrogenase Total Protein Albumin 03/14/18 03/14/18 03/14/18 04:32 04:32 04:32 WBC 8.4 RBC 3.68 L Hgb 10.6 L Hct 32.3 L MCV 87.8 MCH 29.0 MCHC 33.0 RDW 17.5 H Plt Count 321 MPV 10.9 Prelim Diff (Auto) Manual diff required WBC Differential Manual diff final Seg Neuts % (Manual) 78 H Band Neuts % (Manual) 5 Lymphocytes % (Manual) 5 L Monocytes % (Manual) 10 H Eosinophils % (Manual) 1 Basophils % (Manual) 1 Abs Neuts (Manual) 7.0 Differential Comment . Platelet Estimate Normal Platelet Morphology Enlarged H Target Cells 2+ H [place] Bodies Present H PT INR APTT Sodium 139 Potassium 4.7 D Chloride 107 Carbon Dioxide 23.1 Anion Gap 9 BUN 13 Creatinine 0.32 L Estimated GFR Greater than 89 POC Glucose Random Glucose 204 H Calcium 7.9 L Phosphorus 1.9 L Magnesium 2.2 D Total Bilirubin 2.9 H AST 134 H ALT 76 H Alkaline Phosphatase 1045 H Ammonia 36 H Lactate Dehydrogenase Total Protein 5.9 L Albumin 1.7 L Microbiology 03/12/18 00:40 Blood - Peripheral Aerobic Blood Culture - Preliminary No growth in 2 days 03/12/18 00:40 Blood - Peripheral Anaerobic Blood Culture - Preliminary No growth in 2 days 03/12/18 00:45 Blood - Peripheral Aerobic Blood Culture - Preliminary No growth in 2 days 03/12/18 00:45 Blood - Peripheral Anaerobic Blood Culture - Preliminary No growth in 2 days - Imaging Impressions Abdomen Ultrasound 03/13/18 00:00 CONCLUSION: 1. No sonographic evidence for ascites. - Procedures NONE Assessment and Plan - Plan 47-year-old female with Sepsis no BSI. Possible spontaneous bacterial peritonitis -Abdominal ultrasound showed trace to minimal amount of ascites. -Continue ceftriaxone 2 g daily. -IV Dilaudid 0.5 mg every 4 hours as needed for pain. Diabetes mellitus -Continue sliding scale insulin. continue Levemir to 20 units nightly. adjusted insulin sliding scale. Drug-induced, nonalcoholic liver cirrhosis History of non-Hodgkin's lymphoma -Patient is scheduled to follow-up with [facility] gastroenterology regarding possible liver transplant. AND TO FOLLOW UP WITH GI IN [facility] IN [place] [facility] [place] DRUG SEEKING BEHAVIOR- MULTIPLE ALLERGIES SWITCH TO PO PERCOCET PNEUMONIA- CONTINUE ROCEPHIN ADD ZITHROMAX-- SWITCH TO PO MEDS UTI FUNGAL ADD DIFLUCAN CONSULT IR FOR PARACENTESIS HYPOKALEMIA- WILL REPLACE HYPOMAGNESIA WILL REPLACE Full code. Ambulation. DC TO HOME TODAY WANTS TO GO HOME WITH PAIN MEDS Code Status: FULL CODE Discussed Condition With: RN AND PT AND CM Discharge Planning: CANNOT GET [facility] NOT ENOUGH FLUID
--- NOTE | 2018-03-14 14:47 | P.DS ---
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 The patient also reports a fever at home to 103. She is an extremely poor historian who does not follow with a plant attendant or assistant operator and reports she has been to [facility] for evaluation of the liver transplant however states she was told that she was "not sick enough to receive a liver." She denies any chest pain. Endorses shortness of breath. No lateralizing signs /symptoms. 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 The patient also reports a fever at home to 103. She is an extremely poor historian who does not follow with a plant attendant or assistant operator and reports she has been to [facility] for evaluation of the liver transplant however states she was told that she was "not sick enough to receive a liver." She denies any chest pain. Endorses shortness of breath. No lateralizing signs /symptoms. Patient seen/examined. Complains of significant abdominal pain. Abd US did not reveal much ascites. Will see if we can do a diagnostic paracentesis, especially if patient continues to have fever. Continue Ceftriaxone. 03-06 47 year old female with cirrhosis, IDDM, gallstones, hepatomegaly, kidney stones, and non-Hodgkins lymphoma, presented to the ED on 03/04 due to developing a sever of 103 at home. She was also experiencing nausea, vomiting, and diarrhea. She has drug induced hepatic injury diagnosed in 2017. She has recurrent ascites last drained in Jan. The patient states she is in pain. It is worst in her midepigastric and RUQ. She feels mildly nauseous and states she had 2 episodes of diarrhea but it is improving. She has begged me for a regular diet. She did not sleep well and is scared since she does not know what is wrong and is concerned about her sugar levels. She also was freezing last night despite a warm room. At 6:20 am her sugar went down to 40. She was given juice and it only increased to 69. Her vital signs are within normal limits aside from a blood pressure of 95/63. Her temperature is 97.1 at 8am which is down from 101.8 at 20:00 on 03/05. However, patient reports that her temperature was 103 last night. On physial exam the patient is in mild distress due to pain and fear. Her abdomen is very distended and sensitive to touch on the right side. Her lab results at 7:13 am were WBC of 12.9 and Hgb of 10.5L. 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 1. Abdominal Pain- continue pain medication, which the patient states helps. Possibly switch to solid food diet as patient says the liquids make her more nauseous and in pain. 2. Infection- continue ceftriaxone. Due to recent fever consider performing a diagnostic paracentesis. 3. Diabetes- continue to monitor her glucose levels closely. Follow-up for abdominal pain, fever in a patient with a history of drug-induced nonalcoholic liver cirrhosis. Patient is resting in bed well. Tolerating diet well. She complains of significant abdominal pain. She had a fever of 101.8 F and 100.8 F at midnight. Afebrile since midnight. Levemir was reduced to 12 units nightly was titrated up 03-08 Follow-up sepsis/abdominal pain March 08, 2018-patient seen and examined, continues to complain of abdominal pain and states it is radiating to her back. Afebrile. Labile blood glucose. 03-09 Follow-up sepsis/abdominal pain 03/09: Seen in her bedroom, no nausea, vomit or diarrhea. 03-10 WILL GET AM LABS LOOKS GOOD AT THIS MOMENT IF LABS ARE STABLE [facility] TOMORROW DNAIEL RN AND PT AND CM 03-11 STILL TAKING IV PAIN MEDS SWITCH TO PO TYLENOL/CODEINE LIQUID SINCE STATES CANNOT TAKE PILLS APPEARS DRUG SEEKING BEHAVIOR TO SOME DEGREE WILL HOPEFULLY DC TO HOME TOMORROW AM LABS DW RN AND PT AND CM REPLACE POTASSIUM AND MAGNESIUM 03-12 STATES CAN NOW TAKE PILLS IF CRUSHED WILL SWITCH TO PERCOCET THAT CAN BE CRUSHED HAD FEVERS LAST NIGHT CHECK UA AND CXR AND LABS AND BLOOD CULTURES 03-13 WANTS [facility] WANTS ALL PILL CRUSHED WANTS IV DILAUDID- HAVE MADE PO PILLS THAT CAN BE CRUSHED AVAILABLE DW RN AND PT AND CM 03-14 DC TO HOME TODAY NEED[facility]S AT DC DC TO HOME TODAY SWITCH TO PO MEDS DS: Diagnosis - Discharge Diagnosis (1) Sepsis Status: Acute (2) Hyperglycemia Status: Chronic (3) Acute hypokalemia Status: Chronic (4) Ascites Status: Chronic (5) Abdominal pain Status: Chronic (6) Fever Status: Acute DS: Medications - Discharge Medications Prescriptions: azithromycin 500 mg PO DAILY #5 tab cefuroxime axetil 500 mg PO Q12H #20 tab fluconazole 200 mg PO DAILY #10 tab furosemide 20 mg PO DAILY #30 tab insulin glargine [Lantus U-100 Insulin] 25 unit SUB-Q HS #5 vial oxycodone-acetaminophen 1 tab PO Q6H PRN #12 tab PRN Reason: Pain Scale 6 To 10 spironolactone 50 mg PO DAILY #30 tab DS: Summary Hospital Course: 47-year-old female well-known to me with a past medical history of non-Hodgkin' s lymphoma who underwent chemotherapy in 2004 and 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 The patient also reports a fever at home to 103. She is an extremely poor historian who does not follow with a plant attendant or assistant operator and reports she has been to [facility] in [place] for evaluation of the liver transplant however states she was told that she was "not sick enough to receive a liver." She denies any chest pain. Endorses shortness of breath. No lateralizing signs /symptoms. Patient seen/examined. Complains of significant abdominal pain. Abd US did not reveal much ascites. Will see if we can do a diagnostic paracentesis, especially if patient continues to have fever. Continue Ceftriaxone. 10-18 47 year old female with cirrhosis, IDDM, gallstones, hepatomegaly, kidney stones, and non-Hodgkins lymphoma, presented to the ED on 03/04 due to developing a sever of 103 at home. She was also experiencing nausea, vomiting, and diarrhea. She has drug induced hepatic injury diagnosed in 2016. She has recurrent ascites last drained in Jan. The patient states she is in pain. It is worst in her midepigastric and RUQ. She feels mildly nauseous and states she had 2 episodes of diarrhea but it is improving. She has begged me for a regular diet. She did not sleep well and is scared since she does not know what is wrong and is concerned about her sugar levels. She also was freezing last night despite a warm room. At 6:20 am her sugar went down to 40. She was given juice and it only increased to 69. Her vital signs are within normal limits aside from a blood pressure of 95/63. Her temperature is 97.1 at 8am which is down from 101.8 at 20:00 on 03/05. However, patient reports that her temperature was 103 last night. On physial exam the patient is in mild distress due to pain and fear. Her abdomen is very distended and sensitive to touch on the right side. Her lab results at 7:13 am were WBC of 12.9 and Hgb of 10.5L. 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 1. Abdominal Pain- continue pain medication, which the patient states helps. Possibly switch to solid food diet as patient says the liquids make her more nauseous and in pain. 2. Infection- continue ceftriaxone. Due to recent fever consider performing a diagnostic paracentesis. 3. Diabetes- continue to monitor her glucose levels closely. Follow-up for abdominal pain, fever in a patient with a history of drug-induced nonalcoholic liver cirrhosis. Patient is resting in bed well. Tolerating diet well. She complains of significant abdominal pain. She had a fever of 101.8 F and 100.8 F at midnight. Afebrile since midnight. Levemir was reduced to 12 units nightly was titrated up - Follow-up sepsis/abdominal pain March 08, 2018-patient seen and examined, continues to complain of abdominal pain and states it is radiating to her back. Afebrile. Labile blood glucose. 03-09 Follow-up sepsis/abdominal pain 03/09: Seen in her bedroom, no nausea, vomit or diarrhea. 03-10 WILL GET AM LABS LOOKS GOOD AT THIS MOMENT IF LABS ARE STABLE [facility] TOMORROW DANIEL RN AND PT AND CM 03-11 STILL TAKING IV PAIN MEDS SWITCH TO PO TYLENOL/CODEINE LIQUID SINCE STATES CANNOT TAKE PILLS APPEARS DRUG SEEKING BEHAVIOR TO SOME DEGREE WILL HOPEFULLY DC TO HOME TOMORROW AM LABS DW RN AND PT AND CM REPLACE POTASSIUM AND MAGNESIUM 03-12 STATES CAN NOW TAKE PILLS IF CRUSHED WILL SWITCH TO PERCOCET THAT CAN BE CRUSHED HAD FEVERS LAST NIGHT CHECK UA AND CXR AND LABS AND BLOOD CULTURES 03-13 WANTS [facility] WANTS ALL PILL CRUSHED WANTS IV DILAUDID- HAVE MADE PO PILLS THAT CAN BE CRUSHED AVAILABLE DANIEL RN AND PT AND CM 03-14 DC TO HOME TODAY NEEDS [facility] WITH [facility] WANT[facility] MEDS AT DC DC TO HOME TODAY SWITCH TO PO MEDS [employer] Prescription Drug Monitoring Database has been queried and verified prior to prescribing the controlled substance. Acute pain exception. This patient has normal, predicted, physiological, and time limited response to an adverse mechanical stimulus associated with surgery, trauma, or acute illness as described in my notes. There is a lack of alternative treatment options other than to include the prescribed narcotic treatment for this condition. rx written - Time Spent with Patient Total time spent providing and/or coordinating discharge services: Greater than 30 minutes Exam Vital signs: Vital Signs 03/13/18 15:41 03/13/18 20:00 03/14/18 00:00 Temperature 98.5 F 98.5 F 98.0 F Pulse Rate 81 85 86 Respiratory Rate 16 18 18 Blood Pressure 89/57 L 100/70 117/61 Pulse Oximetry 97 95 96 03/14/18 08:00 03/14/18 12:00 Temperature 98.2 F 98.5 F Pulse Rate 76 85 Respiratory Rate 18 18 Blood Pressure 92/54 L 104/63 Pulse Oximetry 97 98 Intake & Output 03/13/18 03/14/18 03/14/18 18:59 06:59 18:59 Intake Total 100 / 100 100 / 100 Balance 100 / 100 100 / 100 Weight 59.4 kg Intake: IV 100 / 100 100 / 100 Magnesium Sulfate Inj 2 GM In 100 / 100 NS Inj 96 ML @ 50 mls/hr IV.SIG ONCE ONE Rx#:[id number] Rocephin Inj 2,000 MG In NS Inj 100 / 100 100 ML @ 200 mls/hr IV.SIG Q24H DESTINI Rx#:[id number] Other: # Voids 2 Date of Last Bowel Movement 03/14/18 Narrative: Gen.: No acute distress Head: Normocephalic. Atraumatic. EENT: Pupils equal round and reactive to light. Nose without drainage. Airway intact. Throat without injection. Cardiovascular: Regular rate and rhythm. No murmurs, rubs or gallops. Respiratory: Lungs clear to auscultation bilaterally. No wheezes or rhonchi. Abdomen: Soft, diffusely tender to palpation, mildly distended. +BS MORE DISTENDED Musculoskeletal: No gross deformities. No edema. Skin: No obvious rashes or erythema. Neuro: Sensory and motor grossly intact. Cranial nerves II through XII grossly intact. Results Procedures completed during hospitalization: NONE Completed studies during hospitalization: Laboratory Results WBC 8.4 th/mm3 (4.0-11.0) 03/14/18 04:32 RBC 3.68 mil/mm3 (4.00-5.30) L 03/14/18 04:32 Hgb 10.6 gm/dL (11.6-15.3) L 03/14/18 04:32 Hct 32.3 % (35.0-46.0) L 03/14/18 04:32 MCV 87.8 fL (80.0-100.0) 03/14/18 04:32 MCH 29.0 pg (27.0-34.0) 03/14/18 04:32 MCHC 33.0 % (32.0-36.0) 03/14/18 04:32 RDW 17.5 % (11.6-17.2) H 03/14/18 04:32 Plt Count 321 th/mm3 (150-450) 03/14/18 04:32 MPV 10.9 fL (7.0-11.0) 03/14/18 04:32 Prelim Diff (Auto) Manual diff required 03/14/18 04:32 Neut % (Auto) 30.2 % (16.0-70.0) 03/11/18 06:57 Lymph % (Auto) 64.0 % (9.0-44.0) H 03/11/18 06:57 Prentiss % (Auto) 3.6 % (0.0-8.0) 03/11/18 06:57 Eos % (Auto) 0.9 % (0.0-4.0) 03/11/18 06:57 Baso % (Auto) 1.3 % (0.0-2.0) 03/11/18 06:57 Neut # (Auto) 2.8 th/mm3 (1.8-7.7) 03/11/18 06:57 Lymph # (Auto) 5.9 th/mm3 (1.0-4.8) H 03/11/18 06:57 Prentiss # (Auto) 0.3 th/mm3 (0.0-0.9) 03/11/18 06:57 Eos # (Auto) 0.1 th/mm3 (0.0-0.4) 03/11/18 06:57 Baso # (Auto) 0.1 th/mm3 (0.0-0.2) 03/11/18 06:57 WBC Differential Manual diff final 03/14/18 04:32 Seg Neuts % (Manual) 78 % (16-70) H 03/14/18 04:32 Band Neuts % (Manual) 5 % (0-6) 03/14/18 04:32 Lymphocytes % (Manual) 5 % (9-44) L 03/14/18 04:32 Monocytes % (Manual) 10 % (0-8) H 03/14/18 04:32 Eosinophils % (Manual) 1 % (0-4) 03/14/18 04:32 Basophils % (Manual) 1 % (0-2) 03/14/18 04:32 Metamyelocytes % (Man) 1 % (0-1) 03/11/18 06:57 Abs Neuts (Manual) 7.0 th/mm3 (1.8-7.7) 03/14/18 04:32 Nucleated RBCs/100 WBC 1 /100 WBC (0-0) H 03/13/18 07:07 Differential Comment . 03/14/18 04:32 Platelet Estimate Normal (Normal) 03/14/18 04:32 Platelet Morphology Enlarged (Normal) H 03/14/18 04:32 Target Cells 2+ (None) H 03/14/18 04:32 [place] Bodies Present (None) H 03/14/18 04:32 PT 11.1 sec (9.8-11.6) 03/13/18 14:24 INR 1.1 Ratio 03/13/18 14:24 APTT 27.9 sec (24.3-30.1) 03/13/18 14:24 Sodium 139 meq/L (136-145) 03/14/18 04:32 Potassium 4.7 meq/L (3.5-5.1) D 03/14/18 04:32 Chloride 107 meq/L (98-107) 03/14/18 04:32 Carbon Dioxide 23.1 meq/L (21.0-32.0) 03/14/18 04:32 Anion Gap 9 meq/L (5-15) 03/14/18 04:32 BUN 13 mg/dL (7-18) 03/14/18 04:32 Creatinine 0.32 mg/dL (0.50-1.00) L 03/14/18 04:32 Estimated GFR Greater than 89 mL/min (>89) 03/14/18 04:32 POC Glucose 263 mg/dl (68-110) H 03/14/18 03:18 Random Glucose 204 mg/dL (74-106) H 03/14/18 04:32 Hemoglobin A1c 10.0 % (4.3-6.0) H 03/11/18 06:57 Lactic Acid 2.2 mmol/L (0.4-2.0) H 03/06/18 07:13 Calcium 7.9 mg/dL (8.5-10.1) L 03/14/18 04:32 Prot Corrected Calcium 8.4 mg/dL (8.5-10.1) L 03/13/18 07:07 Phosphorus 1.9 mg/dL (2.5-4.9) L 03/14/18 04:32 Magnesium 2.2 mg/dL (1.5-2.5) D 03/14/18 04:32 Total Bilirubin 2.9 mg/dL (0.2-1.0) H 03/14/18 04:32 AST 134 U/L (15-37) H 03/14/18 04:32 ALT 76 U/L (10-53) H 03/14/18 04:32 Alkaline Phosphatase 1045 U/L (45-117) H 03/14/18 04:32 Ammonia 36 mcmol/L (11-32) H 03/14/18 04:32 Lactate Dehydrogenase 202 U/L (84-246) 03/13/18 14:24 Total Creatine Kinase 119 U/L (26-192) 03/04/18 20:10 CK-MB (CK-2) Less than 1.0 ng/mL (0.5-3.6) 03/04/18 20:10 Troponin I Less than 0.02 ng/mL (0.02-0.05) L 03/04/18 20:10 Total Protein 5.9 g/dL (6.4-8.2) L 03/14/18 04:32 Albumin 1.7 g/dL (3.4-5.0) L 03/14/18 04:32 Lipase 61 U/L (73-393) L 03/04/18 20:10 TSH 2.010 uIU/mL (0.358-3.740) 03/11/18 06:57 Free T4 1.07 ng/dL (0.76-1.46) 03/11/18 06:57 Urine Color Sheri (Yellw/Straw) 03/13/18 06:05 Urine Clarity Hazy (Clear) H 03/13/18 06:05 Urine pH 6.0 (5.0-8.5) 03/13/18 06:05 Ur Specific Adel 1.011 (1.002-1.035) 03/13/18 06:05 Urine Protein Negative mg/dL (Neg-Trace) 03/13/18 06:05 Urine Glucose (UA) Negative mg/dL (Negative) 03/13/18 06:05 Urine Ketones Negative mg/dL (Negative) 03/13/18 06:05 Urine Occult Blood Negative (Negative) 03/13/18 06:05 Urine Nitrate Negative (Negative) 03/13/18 06:05 Urine Bilirubin Negative (Negative) 03/13/18 06:05 Urine Urobilinogen Less than 2 mg/dL (Less than 2) 03/13/18 06:05 Ur Leukocyte Esterase Negative (Negative) 03/13/18 06:05 Urine RBC 1 /hpf (0-3) 03/13/18 06:05 Urine WBC 2 /hpf (0-5) 03/13/18 06:05 Ur Squamous Epith Cells 1 /hpf (0-5) 03/13/18 06:05 Urine Mucus Few /lpf (Occasional) H 03/13/18 06:05 Urine Yeast Many /hpf (None) H 03/13/18 06:05 Micro UA Comment Culture indicated 03/13/18 06:05 Ur Microscopic Review Not Reportable 03/13/18 06:05 Urine Culture Comments Culture indicated 03/13/18 06:05 Impressions Chest X-Ray 03/12/18 00:00 CONCLUSION: 1. Left basilar consolidation likely pneumonia. 2. Small left pleural effusion. 3. Minimal scarring right midlung. Abdomen Ultrasound 03/13/18 00:00 CONCLUSION: 1. No sonographic evidence for ascites. Labs on day of discharge: Labs from last 24 hours 03/14/18 03/14/18 03/14/18 04:32 04:32 04:32 WBC 8.4 RBC 3.68 L Hgb 10.6 L Hct 32.3 L MCV 87.8 MCH 29.0 MCHC 33.0 RDW 17.5 H Plt Count 321 MPV 10.9 Prelim Diff (Auto) Manual diff required WBC Differential Manual diff final Seg Neuts % (Manual) 78 H Band Neuts % (Manual) 5 Lymphocytes % (Manual) 5 L Monocytes % (Manual) 10 H Eosinophils % (Manual) 1 Basophils % (Manual) 1 Abs Neuts (Manual) 7.0 Differential Comment . Platelet Estimate Normal Platelet Morphology Enlarged H Target Cells 2+ H [place] Bodies Present H PT INR APTT Sodium 139 Potassium 4.7 D Chloride 107 Carbon Dioxide 23.1 Anion Gap 9 BUN 13 Creatinine 0.32 L Estimated GFR Greater than 89 POC Glucose Random Glucose 204 H Calcium 7.9 L Phosphorus 1.9 L Magnesium 2.2 D Total Bilirubin 2.9 H AST 134 H ALT 76 H Alkaline Phosphatase 1045 H Ammonia 36 H Lactate Dehydrogenase Total Protein 5.9 L Albumin 1.7 L 03/14/18 03/13/18 03/13/18 03:18 20:03 15:43 WBC RBC Hgb Hct MCV MCH MCHC RDW Plt Count MPV Prelim Diff (Auto) WBC Differential Seg Neuts % (Manual) Band Neuts % (Manual) Lymphocytes % (Manual) Monocytes % (Manual) Eosinophils % (Manual) Basophils % (Manual) Abs Neuts (Manual) Differential Comment Platelet Estimate Platelet Morphology Target Cells [place] Bodies PT INR APTT Sodium Potassium Chloride Carbon Dioxide Anion Gap BUN Creatinine Estimated GFR POC Glucose 263 H 317 H 400 H Random Glucose Calcium Phosphorus Magnesium Total Bilirubin AST ALT Alkaline Phosphatase Ammonia Lactate Dehydrogenase Total Protein Albumin 03/13/18 03/13/18 03/13/18 14:24 14:24 14:24 WBC 9.1 RBC 3.76 L Hgb 10.8 L Hct 33.2 L MCV 88.4 MCH 28.8 MCHC 32.5 RDW 17.7 H Plt Count 342 MPV 11.6 H Prelim Diff (Auto) WBC Differential Seg Neuts % (Manual) Band Neuts % (Manual) Lymphocytes % (Manual) Monocytes % (Manual) Eosinophils % (Manual) Basophils % (Manual) Abs Neuts (Manual) Differential Comment Platelet Estimate Platelet Morphology Target Cells [place] Bodies PT 11.1 INR 1.1 APTT 27.9 Sodium Potassium Chloride Carbon Dioxide Anion Gap BUN Creatinine Estimated GFR POC Glucose Random Glucose Calcium Phosphorus Magnesium Total Bilirubin AST ALT Alkaline Phosphatase Ammonia Lactate Dehydrogenase 202 Total Protein 5.9 L D Albumin Preliminary micro results at discharge 03/12/18 00:40 Aerobic Blood Culture - Preliminary Blood - Peripheral No growth in 2 days Anaerobic Blood Culture - Preliminary No growth in 2 days 03/12/18 00:45 Aerobic Blood Culture - Preliminary Blood - Peripheral No growth in 2 days Anaerobic Blood Culture - Preliminary No growth in 2 days - Impressions ITS Impressions Chest X-Ray 03/12/18 00:00 CONCLUSION: 1. Left basilar consolidation likely pneumonia. 2. Small left pleural effusion. 3. Minimal scarring right midlung. Abdomen Ultrasound 03/13/18 00:00 CONCLUSION: 1. No sonographic evidence for ascites. Discharge Plan - Discharge Disposition Patient Disposition: 01 Discharge Home - Discharge Condition Condition: Good - Discharge Order Discharge Orders: Discharge Order (Routine); Ordered 03/14/18 Ordered By: You Schaefer - Discharge Details Anticipated Discharge Date: 03/14/18 Discharge Comment: dc to home today - Physicians Team Primary Care Provider: Gilmar Matos Attending Provider: You Schaefer
[2018-03-14 16:50] VITALS: BP 105/60; PULSE 89; TEMP 98.4; O2SAT 99
== END 2018-03-14 17:53 | disposition home or self-care (01) ==
LOC: NEPC 17:39 → NEDA 22:37 → N07 03-05 00:54
PROVIDERS: ADMIT Hospitalist; ATTEND Hospitalist

== ENCOUNTER 2018-04-10 14:35 | Inpatient (IN) ==
--- NOTE | 2018-04-10 14:52 | ED ---
HPI General Chief complaint: Nausea/Vomiting/Diarrhea Stated complaint: Fever/Nausea/Abd Complaint Time Seen by Provider: 04/10/18 14:46 Source: patient Mode of arrival: ambulatory Limitations: no limitations History of Present Illness HPI Narrative: 47-year-old female patient with history of cirrhosis, ascites, diabetes, presents to the ER today because she states that over the last few days she has been vomiting, having diarrhea, having increased abdominal bloating and pain currently rated a 7 out of 10, and running fevers of 102. She states that it just hurts all over from the front of her belly to the back. She denies any shortness of breath, chest pains, or other symptoms. Modifying Factors: None Associated Signs & Symptoms: Nausea, vomiting, diarrhea, abdominal pains, increased abdominal bloating, fevers Risk Factors: Cirrhosis, ascites Related Data Home Medications Medication Instructions Recorded Confirmed insulin aspart U-100 [Novolog 1 sliding scale dose SUB-Q UD 01/31/18 04/10/18 U-100 Insulin aspart] Previous Rx's Medication Instructions Recorded insulin glargine [Lantus U-100 25 unit SUB-Q HS #5 vial 03/14/18 Insulin] Allergies Allergy/AdvReac Type Severity Reaction Status Date / Time fentanyl Allergy Severe SOB Verified 04/10/18 14:49 gadobenic acid Allergy Severe BREATHING Verified 04/10/18 14:49 PROBLEMS, N/V,CHILLS gadodiamide Allergy Severe BREATHING Verified 04/10/18 14:49 PROBLEMS, N/V,CHILLS gadoteridol Allergy Severe BREATHING Verified 04/10/18 14:49 PROBLEMS, N/V,CHILLS ketorolac Allergy Severe Shortness Verified 04/10/18 14:49 of Breath morphine Allergy Severe SOB Verified 04/10/18 14:49 tramadol Allergy Mild Shortness Verified 04/10/18 14:49 of Breath Gadolinium-Containing AdvReac Severe nauseas Verified 04/10/18 14:49 Contrast Medi /vomiting MRI PRECAUTION AdvReac Severe NAUSEA; Uncoded 04/10/18 14:40 PER PATIENT IT IS A GADOLINIUM ALLERGY KMD 11/25/12 Review of Systems ROS: all other systems reviewed are negative PMFSH History History Provided By: Patient Medical History Medical History Cirrhosis (Acute) Diabetes (Acute) Gallstones (Acute) Hepatomegaly (Acute) Kidney stone (Acute) Non Hodgkin's lymphoma (Acute) Surgical History Surgical History H/O splenectomy (Acute) History of liver biopsy (Acute) Social History Social History Substance History: No History of Abuse Second Hand Smoke Exposure: No Smoking Status: Never smoker Tobacco Type: Cigarettes How Often Do You Have a Drink Containing Alcohol: Never Recent Travel in [facility] within the Last 8 Weeks: No Recent Out of Country Travel within the Last 8 Weeks: No Exam Narrative Exam Narrative: GENERAL: Well-developed middle-age female patient currently and mild distress. Awake and oriented x3. SKIN: Focused skin assessment warm/dry. HEAD: Atraumatic. Normocephalic. EYES: Pupils equal and round. No scleral icterus. No injection or drainage. ENT: No nasal bleeding or discharge. Mucous membranes pink and moist. NECK: Trachea midline. No JVD. CARDIOVASCULAR: Regular rate and rhythm. No murmur appreciated. RESPIRATORY: No accessory muscle use. Clear to auscultation. Breath sounds equal bilaterally. GASTROINTESTINAL: Abdomen soft, diffusely tender, mildly distended. Hepatic and splenic margins not palpable. MUSCULOSKELETAL: No obvious deformities. No clubbing. No cyanosis. No edema. NEUROLOGICAL: Awake and alert. No obvious cranial nerve deficits. Motor grossly within normal limits. Normal speech. PSYCHIATRIC: Appropriate mood and affect; insight and judgment normal. Course Initial Documented Vital Signs Temperature 102.4 F H 04/10/18 14:38 Pulse Rate 125 H 04/10/18 14:38 Respiratory Rate 18 04/10/18 14:38 Blood Pressure 128/70 04/10/18 14:38 Pulse Oximetry 97 04/10/18 14:38 Last Documented Vital Signs Temperature 102.4 F H 04/10/18 14:38 Pulse Rate 106 H 04/10/18 18:24 Respiratory Rate 16 04/10/18 18:24 Blood Pressure 121/78 04/10/18 18:24 Pulse Oximetry 100 04/10/18 18:24 Medical Decision Making MDM Narrative Medical decision making narrative: Lab work is reviewed and she has signs of sepsis, IV antibiotics were initiated after blood cultures are drawn. She does have a UTI. However, I also worry about a possible underlying SBP. CAT scan was ordered to rule out other acute intra-abdominal processes. At this point, case is discussed with Dr. Sky for admission. Medical Screen Exam Complete: Yes Emergency Medical Condition: Yes Differential Diagnosis Differential Diagnosis: Gastroenteritis versus obstruction versus SBP versus sepsis Lab Data Lab results reviewed: Yes I reviewed the patient's lab results. Result diagrams: 04/10/18 15:19 04/10/18 15:19 Lab Results 04/10/18 04/10/18 04/10/18 Range/Units 15:19 15: 15:59 WBC 16.6 H (4.0-11.0) th/mm3 RBC 3.86 L (4.00-5.30) mil/mm3 Hgb 10.9 L (11.6-15.3) gm/dL Hct 33.7 L (35.0-46.0) % MCV 87.4 (80.0-100.0) fL MCH 28.4 (27.0-34.0) pg MCHC 32.5 (32.0-36.0) % RDW 18.3 H (11.6-17.2) % Plt Count 231 (150-450) th/mm3 MPV 11.5 H (7.0-11.0) fL Prelim Diff (Auto) Manual diff required WBC Differential Manual diff final Seg Neuts % (Manual) 77 H (16-70) % Band Neuts % (Manual) 10 H (0-6) % Lymphocytes % (Manual) 9 (9-44) % Monocytes % (Manual) 3 (0-8) % Basophils % (Manual) 1 (0-2) % Abs Neuts (Manual) 14.4 H (1.8-7.7) th/mm3 Differential Comment . Platelet Estimate Normal (Normal) Platelet Morphology Enlarged H (Normal) Target Cells 2+ H (None) Sodium 136 (136-145) meq/L Potassium 3.2 L (3.5-5.1) meq/L Chloride 103 (98-107) meq/L Carbon Dioxide 23.8 (21.0-32.0) meq/L Anion Gap 9 (5-15) meq/L BUN 7 (7-18) mg/dL Creatinine 0.47 L (0.50-1.00) mg/dL Estimated GFR Greater than 89 (>89) mL/min Random Glucose 364 H (74-106) mg/dL Calcium 7.9 L (8.5-10.1) mg/dL Magnesium 1.6 (1.5-2.5) mg/dL Total Bilirubin 4.1 H (0.2-1.0) mg/dL AST 229 H (15-37) U/L ALT 135 H (10-53) U/L Alkaline Phosphatase 1580 H (45-117) U/L Total Protein 5.9 L D (6.4-8.2) g/dL Albumin 1.8 L (3.4-5.0) g/dL Lipase 50 L (73-393) U/L Urine Color Dark-yellow H (Yellw/Straw) Urine Clarity Cloudy H (Clear) Urine pH 6.0 (5.0-8.5) Ur Specific Riley 1.024 (1.002-1.035) Urine Protein Negative (Neg-Trace) mg/dL Urine Glucose (UA) 500 or greater (Negative) mg/dL Urine Ketones Negative (Negative) mg/dL Urine Occult Blood Large H (Negative) Urine Nitrate Negative (Negative) Urine Bilirubin Negative (Negative) Urine Urobilinogen 2.0 H (Less than 2) mg/dL Ur Leukocyte Esterase Small H (Negative) Urine RBC (0-3) /hpf Urine WBC 34 H (0-5) /hpf Ur Squamous Epith Cells 18 (0-5) /hpf Urine Bacteria Rare H (None) /hpf Urine Mucus Few H (Occasional) /lpf Urine Yeast Many H (None) /hpf Micro UA Comment Culture indicated Ur Microscopic Review Not Reportable Urine Culture Comments Culture indicated Discharge Plan Discharge Disposition Patient Disposition: 30 Still Patient Discharge Condition Condition: Stable Discharge Details Anticipated Discharge Date: 04/10/18 Diagnosis: Sepsis, UTI (urinary tract infection) Physicians Team ED Provider: Franky Flores Primary Care Provider: Arielle Perez Rxs /Orders / Referrals /Forms Prescriptions: No Action insulin glargine [Lantus U-100 Insulin] 100 unit/mL Solution 25 unit SUB-Q HS Qty: 5 RF: 0 insulin aspart U-100 [Novolog U-100 Insulin aspart] 100 unit/mL Solution 1 sliding scale dose SUB-Q UD RF: 0 Discharge Interventions Interventions: Vital Signs Last Done: 04/10/18 18:24 Status ED Status: Pending Admission
[2018-04-10 15:48] LABS: Hematocrit 33.7 % (35.0-46.0); Hemoglobin 10.9 gm/dL (11.6-15.3); Mean Corpuscular HGB Conc 32.5 % (32.0-36.0); Mean Corpuscular Hemoglobin 28.4 pg (27.0-34.0); Mean Corpuscular Volume 87.4 fL (80.0-100.0); Mean Platelet Volume 11.5 fL (7.0-11.0); Platelet Count 231 th/mm3 (150-450); Red Blood Count 3.86 mil/mm3 (4.00-5.30); Red Cell Distribution Width 18.3 % (11.6-17.2); White Blood Count 16.6 th/mm3 (4.0-11.0)
[2018-04-10] MEDS ORDERED: Piperacil/Tazo 3.375 GM Premix 50 ML IV.SIG ONE (15:57)
[2018-04-10] MEDS ORDERED: Sodium Chlor 0.9% Inj 500 ML IV.SIG SCH (16:00)
[2018-04-10 16:10] LABS: Alanine Aminotransferase 135 U/L (10-53); Albumin 1.8 g/dL (3.4-5.0); Anion Gap 9 meq/L (5-15); Aspartate Aminotransferase 229 U/L (15-37); Blood Urea Nitrogen 7 mg/dL (7-18); Calcium 7.9 mg/dL (8.5-10.1); Carbon Dioxide 23.8 meq/L (21.0-32.0); Chloride 103 meq/L (98-107); Glomerular Filtration Rate Greater Than 89 mL/min (>89); Glucose,Random 364 mg/dL (74-106); Lipase 50 U/L (73-393); Magnesium 1.6 mg/dL (1.5-2.5); Potassium 3.2 meq/L (3.5-5.1); Sodium 136 meq/L (136-145)
[2018-04-10 16:19] LABS: Lymphocytes 9 % (9-44); Monocytes 3 % (0-8); Platelet Estimate Normal (Normal); Target Cells 2+
[2018-04-10 16:24] LABS: Alkaline Phosphatase 1580 U/L (45-117); Total Protein 5.9 g/dL (6.4-8.2)
[2018-04-10 16:33] LABS: Bacteria,Urine Rare /hpf; Bilirubin,Urine Negative (Negative); Clarity,Urine Cloudy (Clear); Glucose,Urine (UA) 500 or Greater mg/dL (Negative); Leukocyte Esterase,Urine Small (Negative); Mucus,Urine Few /lpf (Occasional); Nitrite,Urine Negative (Negative); Specific Gravity,Urine 1.024 (1.002-1.035); Squamous Epithelial Cell,Urine 18 /hpf (0-5)
[2018-04-10 16:38] LABS: Color,Urine Dark-Yellow (Yellw/Straw)
[2018-04-10] MEDS ORDERED: Bisacodyl 10 MG Supp RECTAL PRN (18:36)
[2018-04-10] MEDS ORDERED: Acetaminophen 325 MG Tablet PO PRN (18:36)
--- NOTE | 2018-04-10 20:01 | CT ---
EXAM DATE: 04/10/2018 7:41 PM EST AGE/SEX: 47 years / Female INDICATIONS: Diffuse abdomen pain today. CLINICAL DATA: This is the patient's initial encounter. Patient reports that signs and symptoms have been present for 1 day and indicates a pain score of 7/10. MEDICAL/SURGICAL HISTORY: Cirrhosis. Lymphoma. Renal calculi. Splenectomy. ORAL CONTRAST: No oral contrast ingested. RADIATION DOSE: 6.64 CTDI (mGy) COMPARISON: No prior exams available for comparison. TECHNIQUE: Multiple contiguous axial images were obtained through the abdomen and pelvis following b olus infusion of 80 ml Omnipaque 350 (iohexol) nonionic water-soluble contrast as a single exam dos e. No oral contrast ingested. Using automated exposure control and adjustment of the mA and/or kV ac cording to patient size, radiation dose was kept as low as reasonably achievable to obtain optimal di agnostic quality images. DICOM format image data is available electronically for review and comparis on. FINDINGS: Cirrhotic liver with pneumobilia and enlargement of the left lobe again noted. There is a vague lesio n near the dome of the right hepatic lobe that is larger and more conspicuous, currently estimated at approximately 3.6 x 5.3 x 4.4 cm. Small ascites. There is diffuse mesenteric edema. Varices are agai n noted at the gastroesophageal junction. Splenectomy changes are again noted. Patent portal vein. Colon has mild to moderate distention and wall thickening throughout. No abrupt caliber changes are d emonstrated. No abscess, perforation or obstruction demonstrated. Some questionable wall thickening o f the small bowel, especially in the proximal jejunal region, for example series 2 image 27. Similar findings are seen in the stomach. No free air. Diffusely atrophic pancreas with ductal dilatation and a tail region unchanged. No perceptible pancre atic mass. 1 cm stone of the lower pole of the left kidney again noted and unchanged. The 3 mm stone previously demonstrated of the left lower pole is no longer seen and appears to be in the distal ureter, series 601 image 67. No significant hydronephrosis or hydroureter but the right nephrogram appears slightly fainter than the left. No pathologic-appearing lymphadenopathy seen. Tiny pleural effusion of the visualized left lung base, smaller than before. CONCLUSION: 1. An apparent generalized colitis in the proper clinical setting, presumably infectious or inflamma tory. Right side of the colon appears more severely involved than the rest of it. 2. A mild gastroenteritis is also possible. 3. No GI tract obstruction. 4. Since the prior exam, the 3 mm right renal stone has dislodged and is now in the distal right ure ter. Associated minimal obstructive uropathy. I don't clearly see this stone on the initial jigsaw operator rad iograph. 5. The 10 mm nonobstructing renal stone of the left lower pole is unchanged. 6. Heterogeneous cirrhotic liver with pneumobilia. There is increased size and enhancement of the va naseem lesion near the dome of the right hepatic lobe and this is of concern for a evolving hepatocellul ar carcinoma. 7. Small ascites and diffuse mesenteric edema. 8. Varices. 9. Previous splenectomy. 10. Atrophy of the pancreas and ductal dilatation in the tail region similar to before. No perceptib le mass. 11. Tiny left pleural effusion, smaller. Electronically signed by: Mele Shelton MD 04/10/2018 8:00 PM EST
[2018-04-10] MEDS ORDERED: Dextrose 50% in Water 50 ML Vial IV.PUSH PRN (20:35)
--- NOTE | 2018-04-10 20:36 | P.HP ---
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 The patient reports she believes she needs a paracentesis. She cannot remember when her last paracentesis was done however believes it was during her previous hospital stay at the end of February. The patient reports she had a fever of 103 at home. Temp in emergency department 102.4. She denies any chest pain. Positive shortness of breath. Positive generalized weakness. Inpatient Certification: I certify that the inpatient services were ordered in accordance with Medicare regulations governing the order. This includes certification that hospital inpatient services are reasonable and necessary and in the case of services not specified as inpatient-only under 42 CFR 419.22(n), that they are appropriately provided as inpatient services in accordance to with the 2-midnight benchmark under 43 CFR 412.3(e) Estimated Total Length of Stay (Days): 3 Plans for Post Hospital Care: Home Review of Systems All other systems reviewed negative except as stated in HPI PMFSH - History History Provided By: Patient - Medical History Medical History: Medical History (Last Reviewed 04/10/18 @ 20:26 by Isaura Whyte MD) Cirrhosis Diabetes Gallstones Hepatomegaly Kidney stone Non Hodgkin's lymphoma - Surgical History Surgical History: Surgical History (Last Reviewed 04/10/18 @ 20:27 by Isaura Whyte MD) H/O splenectomy History of liver biopsy - Family History Family History: Family History (Last Reviewed 04/10/18 @ 20:27 by Isaura Whyte MD) Father CAD (coronary artery disease) - Tobacco History Second Hand Smoke Exposure: No Smoking Status: Never smoker Tobacco Type: Cigarettes - Alcohol History How Often Do You Have a Drink Containing Alcohol: Never - Substance Use History Substance History: No History of Abuse - Travel History Recent Travel in the [place] Within the Last 8 Weeks: No Recent Travel Out of the Country Within the Last 8 Weeks: No - Immunization History Tetanus Immunization: <5 Years Medications and Allergies Active Medications: Active Medications Acetaminophen (Tylenol) 500 mg PO Q6H PRN PRN Reason: Fever, headache, pain 1-4 Al Hydroxide/Mg Hydroxide (Milk Of Magnesia Liq) 30 ml PO Q12H PRN PRN Reason: Mild Constipation Bisacodyl (Dulcolax Supp) 10 mg RECTAL DAILY PRN PRN Reason: SEVERE CONSITIPATION Ciprofloxacin/Dextrose (Cipro 400 Mg/200 Ml Inj) 400 mg in 200 mls @ 200 mls/ hr IV.SIG Q8H DESTINI Metronidazole/Sodium Chloride (Flagyl 500 Mg Inj) 100 mls @ 100 mls/hr IV.SIG Q8H DESTINI Lactulose (Lactulose Liq) 30 ml PO DAILY PRN PRN Reason: SEVERE CONSITIPATION Ondansetron HCl (Zofran Inj) 4 mg IV.PUSH Q6H PRN PRN Reason: NAUSEA OR VOMITING Sennosides (Senokot) 17.2 mg PO Q12H PRN PRN Reason: Moderate Constipation Sodium Chloride (Ns Flush) 2 ml IV.FLUSH PRN PRN PRN Reason: FLUSH AFTER USING IV ACCESS Allergies Allergy/AdvReac Type Severity Reaction Status Date / Time fentanyl Allergy Severe SOB Verified 04/10/18 14:49 gadobenic acid Allergy Severe BREATHING Verified 04/10/18 14:49 PROBLEMS, N/V,CHILLS gadodiamide Allergy Severe BREATHING Verified 04/10/18 14:49 PROBLEMS, N/V,CHILLS gadoteridol Allergy Severe BREATHING Verified 04/10/18 14:49 PROBLEMS, N/V,CHILLS ketorolac Allergy Severe Shortness Verified 04/10/18 14:49 of Breath morphine Allergy Severe SOB Verified 04/10/18 14:49 tramadol Allergy Mild Shortness Verified 04/10/18 14:49 of Breath Gadolinium-Containing AdvReac Severe nauseas Verified 04/10/18 14:49 Contrast Medi /vomiting MRI PRECAUTION AdvReac Severe NAUSEA; Uncoded 04/10/18 14:40 PER PATIENT IT IS A GADOLINIUM ALLERGY KMD 11/25/12 Home Medications Medication Instructions Recorded Confirmed Type insulin aspart U-100 [Novolog 1 sliding scale dose SUB-Q UD 01/31/18 04/10/18 History U-100 Insulin aspart] Exam Vital signs: Vital Signs 04/10/18 14:38 04/10/18 18:24 04/10/18 19:28 Temperature 102.4 F H 98.8 F Pulse Rate 125 H 106 H 100 H Respiratory Rate 18 16 18 Blood Pressure 128/70 121/78 118/74 Pulse Oximetry 97 100 98 Intake & Output 04/10/18 04/10/18 04/11/18 06:59 18:59 06:59 Intake Total 550 / 550 Balance 550 / 550 Weight 52.163 kg Intake: IV 550 / 550 Zosyn 3.375 GM Premix 50 ML @ 50 / 50 100 mls/hr IV.SIG ONCE ONE Rx#: [id number] NS Inj 500 ML @ 1000 mls/hr IV. 500 / 500 SIG BOLUS DESTINI Rx#:[id number] Narrative: Gen.: No acute distress Head: Normocephalic. Atraumatic. EENT: Pupils equal round and reactive to light. Nose without drainage. Airway intact. Throat without injection. Cardiovascular: Regular rate and rhythm. No murmurs, rubs or gallops. Respiratory: Lungs clear to auscultation bilaterally. No wheezes or rhonchi. Abdomen: Soft, tender to palpation, mildly distended. No peritoneal signs. Musculoskeletal: No gross deformities. Bilateral lower extremity edema. Skin: No obvious rashes or erythema. Neuro: Sensory and motor grossly intact. Cranial nerves II through XII grossly intact. Results - Labs CBC & Chem 7: 04/10/18 15:19 04/10/18 15:19 Labs: Laboratory Results - last 24 hr 04/10/18 04/10/18 04/10/18 15:19 15:19 15:59 WBC 16.6 H RBC 3.86 L Hgb 10.9 L Hct 33.7 L MCV 87.4 MCH 28.4 MCHC 32.5 RDW 18.3 H Plt Count 231 MPV 11.5 H Prelim Diff (Auto) Manual diff required WBC Differential Manual diff final Seg Neuts % (Manual) 77 H Band Neuts % (Manual) 10 H Lymphocytes % (Manual) 9 Monocytes % (Manual) 3 Basophils % (Manual) 1 Abs Neuts (Manual) 14.4 H Differential Comment . Platelet Estimate Normal Platelet Morphology Enlarged H Target Cells 2+ H Sodium 136 Potassium 3.2 L Chloride 103 Carbon Dioxide 23.8 Anion Gap 9 BUN 7 Creatinine 0.47 L Estimated GFR Greater than 89 Random Glucose 364 H Calcium 7.9 L Magnesium 1.6 Total Bilirubin 4.1 H AST 229 H ALT 135 H Alkaline Phosphatase 1580 H Total Protein 5.9 L D Albumin 1.8 L Lipase 50 L Urine Color Dark-yellow H Urine Clarity Cloudy H Urine pH 6.0 Ur Specific Sharon 1.024 Urine Protein Negative Urine Glucose (UA) 500 or greater Urine Ketones Negative Urine Occult Blood Large H Urine Nitrate Negative Urine Bilirubin Negative Urine Urobilinogen 2.0 H Ur Leukocyte Esterase Small H Urine RBC Urine WBC 34 H Ur Squamous Epith Cells 18 Urine Bacteria Rare H Urine Mucus Few H Urine Yeast Many H Micro UA Comment Culture indicated Ur Microscopic Review Not Reportable Urine Culture Comments Culture indicated - Imaging Impressions Abdomen/Pelvis CT 04/10/18 14:46 CONCLUSION: 1. An apparent generalized colitis in the proper clinical setting, presumably infectious or inflammatory. Right side of the colon appears more severely involved than the rest of it. 2. A mild gastroenteritis is also possible. 3. No GI tract obstruction. 4. Since the prior exam, the 3 mm right renal stone has dislodged and is now in the distal right ureter. Associated minimal obstructive uropathy. I don't clearly see this stone on the initial geophysical laboratory director radiograph. 5. The 10 mm nonobstructing renal stone of the left lower pole is unchanged. 6. Heterogeneous cirrhotic liver with pneumobilia. There is increased size and enhancement of the vague lesion near the dome of the right hepatic lobe and this is of concern for a evolving hepatocellular carcinoma. 7. Small ascites and diffuse mesenteric edema. 8. Varices. 9. Previous splenectomy. 10. Atrophy of the pancreas and ductal dilatation in the tail region similar to before. No perceptible mass. 11. Tiny left pleural effusion, smaller. Caprini VTE Risk Assessment Caprini VTE Risk Assessment: No/Low Risk (score <= 1) Caprini Risk Assessment Model: Point Value = 1 Point Value = 2 Point Value = 3 Point Value = 5 Age 41-60 Minor surgery BMI > 25 kg/m2 Swollen legs Varicose veins or History of unexplained or recurrent spontaneous Oral contraceptives or hormone replacement Sepsis (< 1 month) Serious lung disease, including pneumonia (< 1 month) Abnormal pulmonary function Acute myocardial infarction Congestive heart failure (< 1 month) History of inflammatory bowel disease Medical patient at bed rest Age 61-74 Arthroscopic surgery Major open surgery (> 45 min) Laparoscopic surgery (> 45 min) Malignancy Confined to bed (> 72 hours) Immobilizing plaster cast Central venous access Age >= 75 History of VTE Family history of VTE Factor V Leiden Prothrombin [id number] Lupus anticoagulant Anticardiolipin antibodies Elevated serum homocysteine Heparin-induced thrombocytopenia Other congenital or acquired thrombophilia Stroke (< 1 month) Elective arthroplasty Hip, pelvis, or leg fracture Acute spinal cord injury (< 1 month) Prophylaxis Regimen: Total Risk Factor Score Risk Level Prophylaxis Regimen 0-1 Low Early ambulation 2 Moderate Order ONE of the following: *Sequential Compression Device (SCD) *Heparin 5000 units SQ BID 3-4 Higher Order ONE of the following medications: *Heparin 5000 units SQ TID *Enoxaparin/Lovenox 40 mg SQ daily (WT < 150 kg, CrCl > 30 mL/min) *Enoxaparin/Lovenox 30 mg SQ daily (WT < 150 kg, CrCl > 10-29 mL/min) *Enoxaparin/Lovenox 30 mg SQ BID (WT < 150 kg, CrCl > 30 mL/min) AND/OR *Sequential Compression Device (SCD) 5 or more Highest Order ONE of the following medications: *Heparin 5000 units SQ TID (Preferred with Epidurals) *Enoxaparin/Lovenox 40 mg SQ daily (WT < 150 kg, CrCl > 30 mL/min) *Enoxaparin/Lovenox 30 mg SQ daily (WT < 150 kg, CrCl > 10-29 mL/min) *Enoxaparin/Lovenox 30 mg SQ BID (WT < 150 kg, CrCl > 30 mL/min) AND *Sequential Compression Device (SCD) Assessment and Plan - Plan Assessment/plan: 1. Fever/nausea/vomiting/diarrhea/abdominal pain CT of the abdomen/pelvis significant for an apparent generalized colitis Cipro/Flagyl Small ascites present on CT -no indication for paracentesis at this time 2 mg morphine for pain. Patient with drug-seeking behaviors on previous hospital admissions. Use opiates with caution. 2. Cirrhosis Patient with biopsy-proven drug-induced hepatitis Per patient, she reports she has primary sclerosing cholangitis however there is no record of this She was evaluated at [facility] for liver biopsy but reports she was "not sick enough" for transplantation Needs to follow-up as outpatient with restaurant team member -patient reports she has a liver doctor but has not yet seen him CT of the abdomen/pelvis significant for cirrhotic liver with increased size and enhancement of the vague lesion near the dome of the right hepatic lobe, concerning for evolving HCC Patient will need outpatient follow-up with oncology and hepatology 3. Nephrolithiasis Patient with 3 mm right renal stone that has dislodged and is now in the right distal ureter with associated minimal obstructive uropathy Creatinine 0.47 Patient denies any flank pain at this time UA dirty, repeat cath specimen pending Monitor closely 4. Diabetes mellitus Holding home Lantus as patient reports she has not had any p.o. intake Sliding-scale insulin Resume home Lantus once patient tolerating p.o. FEN Cardiac diet as tolerated Electrolytes: Monitor and replete as needed
[2018-04-10] MEDS: Ciprofloxacin 400 MG/200 ML 400 MG/200 ML PIGGYBACK IV.SIG SCH ×2 (20:51→23:05)
[2018-04-10] MEDS: Morphine Sulfate Inj 2 MG/ML Vial IV.PUSH PRN (20:52)
[2018-04-10] MEDS: Insulin NovoLOG Aspart Correctional Sugar Inj SQ SCH (20:54)
[2018-04-11] MEDS: Morphine Sulfate Inj 2 MG/ML Vial IV.PUSH PRN ×3 (02:11→10:23)
[2018-04-11] MEDS: Insulin NovoLOG Aspart Correctional Sugar Inj SQ SCH ×5 (02:11→23:40)
[2018-04-11 05:59] LABS: Hematocrit 32.4 % (35.0-46.0); Hemoglobin 10.5 gm/dL (11.6-15.3); Mean Corpuscular HGB Conc 32.5 % (32.0-36.0); Mean Corpuscular Hemoglobin 28.1 pg (27.0-34.0); Mean Corpuscular Volume 86.4 fL (80.0-100.0); Mean Platelet Volume 11.9 fL (7.0-11.0); Platelet Count 210 th/mm3 (150-450); Red Blood Count 3.75 mil/mm3 (4.00-5.30); Red Cell Distribution Width 17.9 % (11.6-17.2); White Blood Count 11.5 th/mm3 (4.0-11.0)
[2018-04-11] MEDS: Ciprofloxacin 400 MG/200 ML 400 MG/200 ML PIGGYBACK IV.SIG SCH ×3 (06:23→23:37)
[2018-04-11 06:38] LABS: Alanine Aminotransferase 129 U/L (10-53); Albumin 1.7 g/dL (3.4-5.0); Alkaline Phosphatase 1338 U/L (45-117); Anion Gap 10 meq/L (5-15); Aspartate Aminotransferase 221 U/L (15-37); Blood Urea Nitrogen 7 mg/dL (7-18); Calcium 7.7 mg/dL (8.5-10.1); Carbon Dioxide 25.4 meq/L (21.0-32.0); Chloride 104 meq/L (98-107); Glomerular Filtration Rate Greater Than 89 mL/min (>89); Glucose,Random 171 mg/dL (74-106); Potassium 3.1 meq/L (3.5-5.1); Sodium 139 meq/L (136-145); Total Protein 5.6 g/dL (6.4-8.2)
[2018-04-11 07:45] LABS: Lymphocytes 6 % (9-44); Monocytes 13 % (0-8)
[2018-04-11 07:46] LABS: Target Cells 2+
[2018-04-11 07:47] LABS: Platelet Estimate Normal (Normal)
[2018-04-11 07:48] LABS: Howell-Jolly Bodies Present
[2018-04-11 08:20] LABS: Bilirubin,Urine Small (Negative); Clarity,Urine Clear (Clear); Color,Urine Amber (Yellw/Straw); Glucose,Urine (UA) 500 or Greater mg/dL (Negative); Leukocyte Esterase,Urine Negative (Negative); Mucus,Urine Few /lpf (Occasional); Nitrite,Urine Negative (Negative); Specific Gravity,Urine 1.024 (1.002-1.035); Squamous Epithelial Cell,Urine <1 /hpf (0-5)
[2018-04-11 08:25] LABS: Ictotest,Urine Positive (Negative)
[2018-04-11 08:30] LABS: Urobilinogen,Urine 0.2 mg/dL (Less than 2)
--- NOTE | 2018-04-11 11:00 | P.PNIM ---
Subjective Interval history: 47yo f with hx NHL, non alcoholic cirrhosis and PSC, admitted with fever, severe n/v/d and abd pain, found on CT scan abd and pelvis to have generalized Colitis and gastroenteritis, with a new 3mm R renal stone in distal R ureter causing minimal hydronephrosis. Pt is seen and examined and doing fair, still nauseated states the morphine causes itching and does better with dilaudid, states her pain is much worse than her normal abd pain and she is having severe diarrhea Physical Exam Vital signs: Last Vital Signs Temp 99.6 F 04/11/18 08:00 Pulse 102 H 04/11/18 08:00 Resp 19 04/11/18 08:00 BP 98/64 L 04/11/18 09:49 Pulse Ox 96 04/11/18 08:00 Intake & Output 04/09/18 04/10/18 04/11/18 04/12/18 06:59 06:59 06:59 06:59 Intake Total 1186 / 1186 300 / 300 Balance 1186 / 1186 300 / 300 Weight 48.6 kg chronicall appearing frail 47yo f nad heart s1s2 reg lungs clear decreased bs bl abd mod dt protuberant w diffuse tenderness to min touch, increased bs, no Guarding ext no edema, pulses palpable Results Labs CBC & Chem 7: 04/11/18 04:59 04/11/18 04:59 Imaging Imaging: Impressions Abdomen/Pelvis CT 04/10/18 14:46 CONCLUSION: 1. An apparent generalized colitis in the proper clinical setting, presumably infectious or inflammatory. Right side of the colon appears more severely involved than the rest of it. 2. A mild gastroenteritis is also possible. 3. No GI tract obstruction. 4. Since the prior exam, the 3 mm right renal stone has dislodged and is now in the distal right ureter. Associated minimal obstructive uropathy. I don't clearly see this stone on the initial zigzag elastic attacher radiograph. 5. The 10 mm nonobstructing renal stone of the left lower pole is unchanged. 6. Heterogeneous cirrhotic liver with pneumobilia. There is increased size and enhancement of the vague lesion near the dome of the right hepatic lobe and this is of concern for a evolving hepatocellular carcinoma. 7. Small ascites and diffuse mesenteric edema. 8. Varices. 9. Previous splenectomy. 10. Atrophy of the pancreas and ductal dilatation in the tail region similar to before. No perceptible mass. 11. Tiny left pleural effusion, smaller. Assessment and Plan Plan ACUTE COLITIS suspected infectious - rule out cdif, multiple hospitalizations, stool studies and gi consult, IV abx, PSC/ CIRRHOSIS (drug induced) w min ascites - compensated, will need fu w gi LIVER MASS R hepatic lobe per ct - concern for hepatocellular ca per ct, will get AFP level follow up w GI RENAL CALCULI - 3mm stone lodged in distal ureter w mild hydronephrosis - w hematuria and possible uti, on abx fu cx pending HX NHL DM insulin dependent CHRONIC PAIN/NARCOTIC dependence - pain management for acute pain indicated for now
[2018-04-11] MEDS: HYDROmorphone PF Inj 0.5 MG/0.5 ML Syringe IV.PUSH PRN ×3 (15:08→23:37)
[2018-04-12] MEDS: Insulin NovoLOG Aspart Correctional Sugar Inj SQ SCH ×5 (02:42→20:52)
[2018-04-12] MEDS: HYDROmorphone PF Inj 0.5 MG/0.5 ML Syringe IV.PUSH PRN ×5 (03:29→20:47)
[2018-04-12 05:54] LABS: Baso # (Auto) 0.1 th/mm3 (0.0-0.2); Baso % (Auto) 0.9 % (0.0-2.0); Eos # (Auto) 0.1 th/mm3 (0.0-0.4); Eos % (Auto) 1.3 % (0.0-4.0); Hemoglobin 9.7 gm/dL (11.6-15.3); Lymph # (Auto) 0.7 th/mm3 (1.0-4.8); Lymph % (Auto) 7.8 % (9.0-44.0); Mean Corpuscular HGB Conc 32.2 % (32.0-36.0); Mean Corpuscular Hemoglobin 28.1 pg (27.0-34.0); Mean Corpuscular Volume 87.2 fL (80.0-100.0); Mean Platelet Volume 11.9 fL (7.0-11.0); Mono # (Auto) 2.2 th/mm3 (0.0-0.9); Mono % (Auto) 24.7 % (0.0-8.0); Neut # (Auto) 5.8 th/mm3 (1.8-7.7); Neut % (Auto) 65.3 % (16.0-70.0); Platelet Count 189 th/mm3 (150-450); Red Blood Count 3.44 mil/mm3 (4.00-5.30); Red Cell Distribution Width 17.7 % (11.6-17.2); White Blood Count 8.8 th/mm3 (4.0-11.0)
[2018-04-12 05:58] LABS: Albumin 1.5 g/dL (3.4-5.0); Anion Gap 7 meq/L (5-15); Aspartate Aminotransferase 136 U/L (15-37); Blood Urea Nitrogen 9 mg/dL (7-18); Calcium 7.6 mg/dL (8.5-10.1); Carbon Dioxide 25.8 meq/L (21.0-32.0); Chloride 104 meq/L (98-107); Glomerular Filtration Rate Greater Than 89 mL/min (>89); Glucose,Random 262 mg/dL (74-106); Potassium 3.3 meq/L (3.5-5.1); Sodium 137 meq/L (136-145)
[2018-04-12 06:13] LABS: Alanine Aminotransferase 101 U/L (10-53); Alkaline Phosphatase 1056 U/L (45-117); Total Protein 5.2 g/dL (6.4-8.2)
[2018-04-12] MEDS: Ciprofloxacin 400 MG/200 ML 400 MG/200 ML PIGGYBACK IV.SIG SCH ×4 (07:39→22:09)
[2018-04-12 09:59] LABS: Eosinophils 1 % (0-4); Lymphocytes 10 % (9-44); Monocytes 12 % (0-8); Toxic Granulation 1+
[2018-04-12 10:00] LABS: Platelet Estimate Normal (Normal); Target Cells 1+
[2018-04-12] MEDS ORDERED: Insulin Glargine Inj 1,000 UNITS/10 ML Vial SQ SCH (10:00)
--- NOTE | 2018-04-12 17:17 | P.PNIM ---
Subjective Interval history: 47yo f with hx NHL, non alcoholic cirrhosis and PSC, admitted with fever, severe n/v/d and abd pain, found on CT scan abd and pelvis to have generalized Colitis and gastroenteritis, with a new 3mm R renal stone in distal R ureter causing minimal hydronephrosis. Pt is seen and examined looking better but states still with severe pain in abd and diarrhea persists cdif is neg Physical Exam Vital signs: Last Vital Signs Temp 98.6 F 04/12/18 16:00 Pulse 101 H 04/12/18 16:00 Resp 17 04/12/18 16:00 BP 103/67 04/12/18 16:00 Pulse Ox 99 04/12/18 16:00 Intake & Output 04/10/18 04/11/18 04/12/18 04/13/18 06:59 06:59 06:59 06:59 Intake Total 1186 / 1186 2100 / 2100 600 / 600 Balance 1186 / 1186 2100 / 2100 600 / 600 Weight 48.6 kg 49.3 kg chronicall appearing frail 47yo f nad heart s1s2 reg lungs clear decreased bs bl abd mod increased dt protuberant w diffuse tenderness to min touch, increased bs, no Guarding ext +1 edema, pulses palpable no calf tenderness Results Labs CBC & Chem 7: 04/12/18 04:47 04/12/18 04:47 Labs: Microbiology 04/11/18 06:30 Catheterized Urine Urine Culture - Preliminary Yeast - ID to follow 04/10/18 15:19 Blood - Peripheral Aerobic Blood Culture - Preliminary No growth in 2 days 04/10/18 15:19 Blood - Peripheral Anaerobic Blood Culture - Preliminary No growth in 2 days 04/10/18 15:13 Blood - Peripheral Aerobic Blood Culture - Preliminary No growth in 2 days 04/10/18 15:13 Blood - Peripheral Anaerobic Blood Culture - Preliminary No growth in 2 days 04/10/18 15:59 Clean Catch Urine Urine Culture - Final 50-100,000 cfu/mL mixed gram positive matthew (probable contaminants) Assessment and Plan Plan ACUTE COLITIS suspected infectious - cdif negative , multiple hospitalizations , stool studies and gi consult, IV abx, PSC/ CIRRHOSIS (drug induced) w min ascites on ct - compensated, will need fu w gi , start lasix and aldactone LIVER MASS R hepatic lobe per ct - concern for hepatocellular ca per ct, will get AFP level follow up w GI RENAL CALCULI - 3mm stone lodged in distal ureter w mild hydronephrosis - w hematuria and possible uti, on abx fu cx w yeast, will give diflucan HX NHL DM insulin dependent uncontrolled, increase lantus as needed, cont diet and iss. CHRONIC PAIN/NARCOTIC dependence - pain management for acute pain indicated for now DVT PROPHYLAXIS - lovenox DISPO - plan home when stable
[2018-04-12] MEDS: Enoxaparin Inj 30 MG/0.3 ML Syringe SQ SCH (17:48)
[2018-04-13] MEDS: HYDROmorphone PF Inj 0.5 MG/0.5 ML Syringe IV.PUSH PRN ×6 (00:45→20:48)
[2018-04-13] MEDS: Insulin NovoLOG Aspart Correctional Sugar Inj SQ SCH ×5 (03:22→20:52)
[2018-04-13] MEDS: Ciprofloxacin 400 MG/200 ML 400 MG/200 ML PIGGYBACK IV.SIG SCH ×3 (05:22→22:33)
[2018-04-13 07:27] LABS: Mean Corpuscular HGB Conc 33.2 % (32.0-36.0); Mean Corpuscular Hemoglobin 28.8 pg (27.0-34.0); Mean Corpuscular Volume 86.9 fL (80.0-100.0); Mean Platelet Volume 12.3 fL (7.0-11.0); Platelet Count 206 th/mm3 (150-450); Red Blood Count 3.45 mil/mm3 (4.00-5.30); Red Cell Distribution Width 17.8 % (11.6-17.2)
[2018-04-13 07:32] LABS: Anion Gap 6 meq/L (5-15); Blood Urea Nitrogen 7 mg/dL (7-18); Calcium 7.2 mg/dL (8.5-10.1); Carbon Dioxide 25.6 meq/L (21.0-32.0); Chloride 103 meq/L (98-107); Glomerular Filtration Rate Greater Than 89 mL/min (>89); Glucose,Random 341 mg/dL (74-106); Magnesium 1.7 mg/dL (1.5-2.5); Potassium 3.9 meq/L (3.5-5.1); Sodium 135 meq/L (136-145)
[2018-04-13 07:51] LABS: Calcium-Albumin Corrected 8.2 mg/dL (8.5-10.1); Total Protein 5.2 g/dL (6.4-8.2)
[2018-04-13] MEDS: Enoxaparin Inj 30 MG/0.3 ML Syringe SQ SCH (08:07)
[2018-04-13 08:43] LABS: Eosinophils 1 % (0-4); Lymphocytes 7 % (9-44); Monocytes 8 % (0-8); Platelet Estimate Normal (Normal); Target Cells 2+
[2018-04-13] MEDS: Insulin Detemir Inj 1,000 UNIT/10 ML Vial SQ SCH ×2 (08:47→20:52)
[2018-04-13] MEDS ORDERED: Insulin Detemir Inj 1,000 UNIT/10 ML Vial SQ SCH (09:00)
--- NOTE | 2018-04-13 13:11 | P.CONGI ---
History of Present Illness Consult date: 04/13/18 Consult reason: Colitis Fever Chief complaint: Sepsis, UTI, Possible SBP History of Present Illness: This patient is a 47-year-old female with a past medical history of non- Hodgkin's lymphoma, nonalcoholic cirrhosis, drug induced hepatic injury, previous biliary stent, and diabetes mellitus. Patient presented to the emergency room at [facility] with complaint of abdominal pain and bloating, bilateral lower extremity edema, nausea, vomiting and loose stools. Patient endorses having a fever of 102 at home with increasing generalized weakness. Upon consultation, patient reports 4-day history of loose green to yellow colored stool. Patient endorses accompanied fever times 1 day of 102 F. Patient denies any recent travel or sick contacts. Patient also reports right upper quadrant pain that is chronic with intermittent nausea. Patient denies any noted bleeding. Our service has been consulted to evaluate patient for colitis. <Madyson Raymond - Last Filed: 04/13/18 12:57> Review of Systems All other systems reviewed negative except as stated in HPI <Madyson Raymond - Last Filed: 04/13/18 12:57> PMFSH - History History Provided By: Patient - Medical History Medical History: Medical History (Last Reviewed 04/10/18 @ 20:26 by Isaura Whyte MD) Cirrhosis Diabetes Gallstones Hepatomegaly Kidney stone Non Hodgkin's lymphoma - Surgical History Surgical History: Surgical History (Last Reviewed 04/10/18 @ 20:27 by Isaura Whyte MD) H/O splenectomy History of liver biopsy - Family History Family History: Family History (Last Reviewed 04/10/18 @ 20:27 by Isaura Whyte MD) Father CAD (coronary artery disease) - Tobacco History Second Hand Smoke Exposure: No Smoking Status: Never smoker Tobacco Type: Cigarettes - Alcohol History How Often Do You Have a Drink Containing Alcohol: Never - Substance Use History Substance History: No History of Abuse - Travel History Recent Travel in the [place] Within the Last 8 Weeks: No Recent Travel Out of the Country Within the Last 8 Weeks: No - Immunization History Tetanus Immunization: <5 Years Hx Influenza Vaccine This Season: Yes <Madyson Raymond - Last Filed: 04/13/18 12:57> - Medical History Medical History: Medical History (Last Reviewed 04/10/18 @ 20:26 by Isaura Whyte MD) Cirrhosis Diabetes Gallstones Hepatomegaly Kidney stone Non Hodgkin's lymphoma - Surgical History Surgical History: Surgical History (Last Reviewed 04/10/18 @ 20:27 by Isaura Whyte MD) H/O splenectomy History of liver biopsy - Family History Family History: Family History (Last Reviewed 04/10/18 @ 20:27 by Isaura Whyte MD) Father CAD (coronary artery disease) <Junior Crawford A - Last Filed: 04/14/18 12:42> Medications and Allergies Active Medications: Active Medications Acetaminophen (Tylenol) 500 mg PO Q6H PRN PRN Reason: Fever, headache, pain 1-4 Al Hydroxide/Mg Hydroxide (Milk Of Magnesia Liq) 30 ml PO Q12H PRN PRN Reason: Mild Constipation Bisacodyl (Dulcolax Supp) 10 mg RECTAL DAILY PRN PRN Reason: SEVERE CONSITIPATION Dextrose (D50w Vial) 50 ml IV.PUSH UNSCH PRN PRN Reason: PER HYPOGLYCEMIA PROTOCOL Diphenhydramine HCl (Benadryl) 50 mg PO Q6H PRN PRN Reason: itching Enoxaparin Sodium (Lovenox Inj) 30 mg SQ DAILY DESTINI Last Admin: 04/13/18 08:07 Dose: Not Given Glucagon (Glucagon Inj) 1 mg OTHER PRN PRN PRN Reason: for Hypoglycemia Protocol Hydromorphone HCl (Dilaudid Pf Inj) 0.5 mg IV.PUSH Q4H PRN PRN Reason: ABDOMINAL PAIN Last Admin: 04/13/18 12:41 Dose: 0.5 mg Ciprofloxacin/Dextrose (Cipro 400 Mg/200 Ml Inj) 400 mg in 200 mls @ 200 mls/ hr IV.SIG Q8H DESTINI Last Infusion: 04/13/18 06:33 Dose: Infused Metronidazole/Sodium Chloride (Flagyl 500 Mg Inj) 100 mls @ 100 mls/hr IV.SIG Q8H DESTINI Last Admin: 04/13/18 12:41 Dose: 100 mls/hr Insulin Aspart (Novolog Insulin Correctional Sugar Inj) 0 unit SQ ACHS AND 3AM DESTINI; Protocol Last Admin: 04/13/18 12:41 Dose: 7 unit Insulin Detemir (Levemir Inj) 25 unit SQ BID DESTINI Last Admin: 04/13/18 08:47 Dose: 25 unit Lactulose (Lactulose Liq) 30 ml PO DAILY PRN PRN Reason: SEVERE CONSITIPATION Ondansetron HCl (Zofran Inj) 4 mg IV.PUSH Q6H PRN PRN Reason: NAUSEA OR VOMITING Sennosides (Senokot) 17.2 mg PO Q12H PRN PRN Reason: Moderate Constipation Sodium Chloride (Ns Flush) 2 ml IV.FLUSH PRN PRN PRN Reason: FLUSH AFTER USING IV ACCESS <Madyson Raymond - Last Filed: 04/13/18 12:57> Active Medications: Active Medications Acetaminophen (Tylenol) 500 mg PO Q6H PRN PRN Reason: Fever, headache, pain 1-4 Last Admin: 04/13/18 20:47 Dose: 500 mg Al Hydroxide/Mg Hydroxide (Milk Of Magnesia Liq) 30 ml PO Q12H PRN PRN Reason: Mild Constipation Bisacodyl (Dulcolax Supp) 10 mg RECTAL DAILY PRN PRN Reason: SEVERE CONSITIPATION Dextrose (D50w Vial) 50 ml IV.PUSH UNSCH PRN PRN Reason: PER HYPOGLYCEMIA PROTOCOL Diphenhydramine HCl (Benadryl) 50 mg PO Q6H PRN PRN Reason: itching Enoxaparin Sodium (Lovenox Inj) 30 mg SQ DAILY DESTINI Last Admin: 04/14/18 09:25 Dose: Not Given Glucagon (Glucagon Inj) 1 mg OTHER PRN PRN PRN Reason: for Hypoglycemia Protocol Hydromorphone HCl (Dilaudid Pf Inj) 0.5 mg IV.PUSH Q4H PRN PRN Reason: ABDOMINAL PAIN Last Admin: 04/14/18 10:32 Dose: 0.5 mg Ciprofloxacin/Dextrose (Cipro 400 Mg/200 Ml Inj) 400 mg in 200 mls @ 200 mls/ hr IV.SIG Q8H DESTINI Last Infusion: 04/14/18 07:00 Dose: Infused Metronidazole/Sodium Chloride (Flagyl 500 Mg Inj) 100 mls @ 100 mls/hr IV.SIG Q8H DESTINI Last Infusion: 04/14/18 06:45 Dose: Infused Insulin Aspart (Novolog Insulin Correctional Sugar Inj) 0 unit SQ ACHS AND 3AM DESTINI; Protocol Last Admin: 04/14/18 08:14 Dose: Not Given Insulin Detemir (Levemir Inj) 25 unit SQ BID DESTINI Last Admin: 04/14/18 09:25 Dose: 25 unit Lactulose (Lactulose Liq) 30 ml PO DAILY PRN PRN Reason: SEVERE CONSITIPATION Ondansetron HCl (Zofran Inj) 4 mg IV.PUSH Q6H PRN PRN Reason: NAUSEA OR VOMITING Sennosides (Senokot) 17.2 mg PO Q12H PRN PRN Reason: Moderate Constipation Sodium Chloride (Ns Flush) 2 ml IV.FLUSH PRN PRN PRN Reason: FLUSH AFTER USING IV ACCESS Last Admin: 04/14/18 05:47 Dose: 2 ml <Junior Crawford A - Last Filed: 04/14/18 12:42> Allergies Allergy/AdvReac Type Severity Reaction Status Date / Time fentanyl Allergy Severe SOB Verified 04/10/18 14:49 gadobenic acid Allergy Severe BREATHING Verified 04/10/18 14:49 PROBLEMS, N/V,CHILLS gadodiamide Allergy Severe BREATHING Verified 04/10/18 14:49 PROBLEMS, N/V,CHILLS gadoteridol Allergy Severe BREATHING Verified 04/10/18 14:49 PROBLEMS, N/V,CHILLS ketorolac Allergy Severe Shortness Verified 04/10/18 14:49 of Breath tramadol Allergy Mild Shortness Verified 04/10/18 14:49 of Breath Gadolinium-Containing AdvReac Severe nauseas Verified 04/10/18 14:49 Contrast Medi /vomiting morphine AdvReac Intermediate SOB Verified 04/10/18 21:18 MRI PRECAUTION AdvReac Severe NAUSEA; Uncoded 04/10/18 14:40 PER PATIENT IT IS A GADOLINIUM ALLERGY KMD 11/25/12 Home Medications Medication Instructions Recorded Confirmed Type insulin aspart U-100 [Novolog 1 sliding scale dose SUB-Q UD 01/31/18 04/10/18 History U-100 Insulin aspart] Exam Vital signs: Vital Signs 04/12/18 16:00 04/12/18 20:00 04/13/18 00:00 Temperature 98.6 F 100.9 F H 99.2 F Pulse Rate 101 H 105 H 101 H Respiratory Rate 17 16 16 Blood Pressure 103/67 98/60 L 106/67 Pulse Oximetry 99 96 95 04/13/18 08:00 04/13/18 12:00 Temperature 98.7 F 98.1 F Pulse Rate 94 H 90 Respiratory Rate 17 17 Blood Pressure 106/61 95/57 L Pulse Oximetry 95 96 Intake & Output 04/12/18 04/13/18 04/13/18 18:59 06:59 18:59 Intake Total 1800 / 1800 1080 / 1080 Balance 1800 / 1800 1080 / 1080 Weight 49 kg Intake: IV 600 / 600 600 / 600 Cipro 400 MG/200 ML Inj 400 mg 400 / 400 400 / 400 In 200 ml @ 200 mls/hr IV.SIG Q8H DESTINI Rx#:[id number] Flagyl 500 MG Inj 100 ML @ 100 200 / 200 200 / 200 mls/hr IV.SIG Q8H DESTINI Rx#: [id number] Oral 1200 / 1200 480 / 480 Other: # Voids 3 2 Date of Last Bowel Movement 04/12/18 04/12/18 04/13/18 # Bowel Movements 1 1 - Constitutional no acute distress, chronically ill appearing - Routine HEENT Exam Head: Present: normocephalic - Routine Respiratory Exam Present: CTA bilaterally. Absent: accessory muscle use - Routine Cardiovascular Exam Present: RRR - Routine Abdominal Exam Present: soft, normoactive bowel sounds, tenderness, distended, guarding. Absent: firm - Routine Extremities Exam Present: edema - Routine Skin Exam Present: dry, warm - Routine Neurological Exam Present: alert <Raymond,Madyson - Last Filed: 04/13/18 12:57> Vital signs: Vital Signs 04/13/18 16:00 04/13/18 20:00 04/13/18 21:40 Temperature 98.9 F 100.7 F H Pulse Rate 97 H 101 H Respiratory Rate 17 16 6 L Blood Pressure 98/65 L 101/63 Pulse Oximetry 98 95 04/14/18 00:00 04/14/18 08:00 Temperature 99.4 F 97.9 F Pulse Rate 97 H 88 Respiratory Rate 16 18 Blood Pressure 102/60 100/67 Pulse Oximetry 96 98 Intake & Output 04/13/18 04/14/18 04/14/18 18:59 06:59 18:59 Intake Total 1020 / 1020 880 / 880 200 / 200 Balance 1020 / 1020 880 / 880 200 / 200 Weight 49 kg Intake: IV 300 / 300 400 / 400 200 / 200 Cipro 400 MG/200 ML Inj 400 mg 200 / 200 200 / 200 200 / 200 In 200 ml @ 200 mls/hr IV.SIG Q8H DESTINI Rx#:[id number] Flagyl 500 MG Inj 100 ML @ 100 100 / 100 200 / 200 mls/hr IV.SIG Q8H DESTINI Rx#: [id number] Oral 720 / 720 480 / 480 Other: # Voids 4 2 Date of Last Bowel Movement 04/13/18 # Bowel Movements 2 1 <Junior Crawford - Last Filed: 04/14/18 12:42> Results - Labs CBC & Chem 7: 04/13/18 05:13 04/13/18 05:13 Labs: Laboratory Results - last 24 hr 04/12/18 04/12/18 04/13/18 16:40 20:52 05:13 WBC 9.0 RBC 3.45 L Hgb 10.0 L Hct 30.0 L MCV 86.9 MCH 28.8 MCHC 33.2 RDW 17.8 H Plt Count 206 MPV 12.3 H Prelim Diff (Auto) Manual diff required WBC Differential Manual diff final Seg Neuts % (Manual) 84 H Lymphocytes % (Manual) 7 L Monocytes % (Manual) 8 Eosinophils % (Manual) 1 Abs Neuts (Manual) 7.6 Differential Comment . Platelet Estimate Normal Platelet Morphology Enlarged H Target Cells 2+ H Sodium Potassium Chloride Carbon Dioxide Anion Gap BUN Creatinine Estimated GFR POC Glucose 369 H 295 H Random Glucose Calcium Prot Corrected Calcium Magnesium Total Protein 04/13/18 04/13/18 04/13/18 05:13 07:19 12:11 WBC RBC Hgb Hct MCV MCH MCHC RDW Plt Count MPV Prelim Diff (Auto) WBC Differential Seg Neuts % (Manual) Lymphocytes % (Manual) Monocytes % (Manual) Eosinophils % (Manual) Abs Neuts (Manual) Differential Comment Platelet Estimate Platelet Morphology Target Cells Sodium 135 L Potassium 3.9 Chloride 103 Carbon Dioxide 25.6 Anion Gap 6 BUN 7 Creatinine 0.33 L Estimated GFR Greater than 89 POC Glucose 355 H 347 H Random Glucose 341 H Calcium 7.2 L* Prot Corrected Calcium 8.2 L Magnesium 1.7 Total Protein 5.2 L <Madyson Raymond - Last Filed: 04/13/18 12:57> - Labs CBC & Chem 7: 04/13/18 05:13 04/13/18 05:13 Labs: Laboratory Results - last 24 hr 04/13/18 04/13/18 04/13/18 05:13 11:11 17:38 Sodium 135 L Potassium 3.9 Chloride 103 Carbon Dioxide 25.6 Anion Gap 6 BUN 7 Creatinine 0.33 L Estimated GFR Greater than 89 POC Glucose 237 H Random Glucose 341 H Calcium 7.2 L* Prot Corrected Calcium 8.2 L Magnesium 1.7 Total Protein 5.2 L Alpha Fetoprotein Cancelled Tumor Marker AFP 8.6 H HCG, Quant Cancelled Gestational Age Cancelled AFP MoM Cancelled AFP Interpretation Cancelled HCG MoM Cancelled Unconj (Free) Estriol Cancelled Unconj Estriol MoM Cancelled Down's Maternal Age Risk Cancelled Down Syndrome Risk Cancelled Trisomy 18 Risk Cancelled NTD Risk Assessment Cancelled 04/13/18 04/14/18 04/14/18 20:18 03:59 07:56 Sodium Potassium Chloride Carbon Dioxide Anion Gap BUN Creatinine Estimated GFR POC Glucose 109 90 86 Random Glucose Calcium Prot Corrected Calcium Magnesium Total Protein Alpha Fetoprotein Tumor Marker AFP HCG, Quant Gestational Age AFP MoM AFP Interpretation HCG MoM Unconj (Free) Estriol Unconj Estriol MoM Down's Maternal Age Risk Down Syndrome Risk Trisomy 18 Risk NTD Risk Assessment <Junior Crawford - Last Filed: 04/14/18 12:42> Assessment and Plan (1) Colitis Status: Acute Code(s): K52.9 - Noninfective gastroenteritis and colitis, unspecified (2) Ascites Status: Chronic Code(s): R18.8 - Other ascites (3) Abdominal pain Status: Chronic Code(s): R10.9 - Unspecified abdominal pain - Plan This patient is a 47-year-old female with a past medical history of non-Hodgkin' s lymphoma, nonalcoholic cirrhosis, drug induced hepatic injury, previous biliary stent, and diabetes mellitus. Patient presented to the emergency room at [facility] with complaint of abdominal pain and bloating, bilateral lower extremity edema, nausea, vomiting and loose stools. Patient endorses having a fever of 102 at home with increasing generalized weakness. Upon consultation, patient reports 4-day history of loose green to yellow colored stool. Patient endorses accompanied fever times 1 day of 102 F. Patient denies any recent travel or sick contacts. Patient also reports right upper quadrant pain that is chronic with intermittent nausea. Patient denies any noted bleeding. Our service has been consulted to evaluate patient for colitis. Colitis -Patient endorses 4-day history of loose green to yellow colored stools. Fever of 102 x 1 day. -04/10/2018 CT abdomen and pelvis: 1. An apparent generalized colitis in the proper clinical setting, presumably infectious or inflammatory. Right side of the colon appears more severely involved than the rest of it. 2. A mild gastroenteritis is also possible. 3. No GI tract obstruction. 4. Since the prior exam, the 3 mm right renal stone has dislodged and is now in the distal right ureter. Associated minimal obstructive uropathy. 5. The 10 mm nonobstructing renal stone of the left lower pole is unchanged. 6. Heterogeneous cirrhotic liver with pneumobilia. There is increased size and enhancement of the vague lesion near the dome of the right hepatic lobe and this is of concern for a evolving hepatocellular carcinoma. 7. Small ascites and diffuse mesenteric edema. 8. Varices. 9. Previous splenectomy. -04/13/2018 WBC 9.0 hemoglobin 10.0 hematocrit 30.0 platelet count 206 -04/12/2018 total bilirubin 3.8 AST 136 ALT 101 alk phos 1056 Plan -Cardiac diet as tolerated -Ciprofloxacin 400 mg IV q. 8 -Flagyl 500 mg IV q. 8 -Antiemetics and analgesics as per attending -Supportive care -Further recommendations to follow This patient has been seen by myself and Dr. Crawford and this note is written on his behalf - Attending Attestation Dr. Crawford <Madyson Raymond - Last Filed: 04/13/18 12:57> (1) Colitis Status: Acute Code(s): K52.9 - Noninfective gastroenteritis and colitis, unspecified (2) Ascites Status: Chronic Code(s): R18.8 - Other ascites (3) Abdominal pain Status: Chronic Code(s): R10.9 - Unspecified abdominal pain - Attending Attestation Seen and examined, plan as above. Colitis by imaging study. Check stool studies and continue antibiotics for now. Thank you for the consult. <Junior Crawford - Last Filed: 04/14/18 12:42> <Madyson Raymond - Last Filed: 04/13/18 12:57> (2) Ascites Qualifiers: Ascites type: other type Qualified Code(s): R18.8 - Other ascites (3) Abdominal pain Qualifiers: Abdominal location: generalized Qualified Code(s): R10.84 - Generalized abdominal pain <Junior Crawford - Last Filed: 04/14/18 12:42> (2) Ascites Qualifiers: Ascites type: other type Qualified Code(s): R18.8 - Other ascites (3) Abdominal pain Qualifiers: Abdominal location: generalized Qualified Code(s): R10.84 - Generalized abdominal pain
--- NOTE | 2018-04-13 13:59 | P.PNIM ---
Subjective Interval history: 47yo f with hx NHL, non alcoholic cirrhosis and PSC, admitted with fever, severe n/v/d and abd pain, found on CT scan abd and pelvis to have generalized Colitis and gastroenteritis, with a new 3mm R renal stone in distal R ureter causing minimal hydronephrosis. Pt is seen and examined looking better but states still with severe pain in abd is but better after pain meds and diarrhea i improving only a little Physical Exam Vital signs: Last Vital Signs Temp 98.1 F 04/13/18 12:00 Pulse 90 04/13/18 12:00 Resp 17 04/13/18 12:00 BP 95/57 L 04/13/18 12:00 Pulse Ox 96 04/13/18 12:00 Intake & Output 04/11/18 04/12/18 04/13/18 04/14/18 06:59 06:59 06:59 06:59 Intake Total 1186 / 1186 2100 / 2100 2880 / 2880 100 / 100 Balance 1186 / 1186 2100 / 2100 2880 / 2880 100 / 100 Weight 48.6 kg 49.3 kg 49 kg chronically appearing 47yo f aaox3 nad pleasant heart s1s2 reg lungs clear no wrr full expansion abd soft mod dt, hernia, Results Labs CBC & Chem 7: 04/13/18 05:13 04/13/18 05:13 Labs: Microbiology 04/11/18 06:30 Catheterized Urine Urine Culture - Final Luda glabrata 04/10/18 15:19 Blood - Peripheral Aerobic Blood Culture - Preliminary No growth in 3 days 04/10/18 15:19 Blood - Peripheral Anaerobic Blood Culture - Preliminary No growth in 3 days 04/10/18 15:13 Blood - Peripheral Aerobic Blood Culture - Preliminary No growth in 3 days 04/10/18 15:13 Blood - Peripheral Anaerobic Blood Culture - Preliminary No growth in 3 days Assessment and Plan (1) Colitis: Code(s): K52.9 - Noninfective gastroenteritis and colitis, unspecified Status: Acute (2) Ascites: Code(s): R18.8 - Other ascites Status: Chronic (3) Abdominal pain: Code(s): R10.9 - Unspecified abdominal pain Status: Chronic Plan ACUTE COLITIS with diarrhea, suspected infectious - cdif negative cont cipro flagyl, multiple hospitalizations, stool studies and gi consult, PSC/ CIRRHOSIS (drug induced) w min ascites on ct - compensated, will need fu w gi , start lasix and aldactone when stable LIVER MASS R hepatic lobe per ct - concern for hepatocellular ca per ct, will get AFP level follow up w GI RENAL CALCULI - 3mm stone lodged in distal ureter w mild hydronephrosis - w hematuria and possible uti, on abx fu cx w yeast, will give diflucan HX NHL DM insulin dependent remains uncontrolled, increase levemir today to bid, cont diet and iss. CHRONIC PAIN/NARCOTIC dependence - pain management for acute pain indicated for now DVT PROPHYLAXIS - lovenox DISPO - plan home when stable _ (1) Ascites Qualifiers: Ascites type: other type Qualified Code(s): R18.8 - Other ascites (2) Abdominal pain Qualifiers: Abdominal location: generalized Qualified Code(s): R10.84 - Generalized abdominal pain
--- NOTE | 2018-04-13 20:04 | P.PN ---
Subjective Interval history: NOT seen Physical Exam Vital signs: Vital Signs 04/13/18 00:00 04/13/18 08:00 04/13/18 12:00 Temperature 99.2 F 98.7 F 98.1 F Pulse Rate 101 H 94 H 90 Respiratory Rate 16 17 17 Blood Pressure 106/67 106/61 95/57 L Pulse Oximetry 95 95 96 04/13/18 16:00 Temperature 98.9 F Pulse Rate 97 H Respiratory Rate 17 Blood Pressure 98/65 L Pulse Oximetry 98 Intake & Output 04/13/18 04/13/18 04/14/18 06:59 18:59 06:59 Intake Total 1080 / 1080 1020 / 1020 Balance 1080 / 1080 1020 / 1020 Weight 49 kg Intake: IV 600 / 600 300 / 300 Cipro 400 MG/200 ML Inj 400 mg 400 / 400 200 / 200 In 200 ml @ 200 mls/hr IV.SIG Q8H DESTINI Rx#:[id number] Flagyl 500 MG Inj 100 ML @ 100 200 / 200 100 / 100 mls/hr IV.SIG Q8H DESTINI Rx#: [id number] Oral 480 / 480 720 / 720 Other: # Voids 2 4 Date of Last Bowel Movement 04/12/18 04/13/18 # Bowel Movements 1 2 Narrative: chronically appearing 47yo f aaox3 nad pleasant heart s1s2 reg lungs clear no wrr full expansion abd soft mod dt, hernia, Results - Labs CBC & Chem 7: 04/13/18 05:13 04/13/18 05:13 Laboratory Results - last 24 hr 04/12/18 04/13/18 04/13/18 20:52 05:13 05:13 WBC 9.0 RBC 3.45 L Hgb 10.0 L Hct 30.0 L MCV 86.9 MCH 28.8 MCHC 33.2 RDW 17.8 H Plt Count 206 MPV 12.3 H Prelim Diff (Auto) Manual diff required WBC Differential Manual diff final Seg Neuts % (Manual) 84 H Lymphocytes % (Manual) 7 L Monocytes % (Manual) 8 Eosinophils % (Manual) 1 Abs Neuts (Manual) 7.6 Differential Comment . Platelet Estimate Normal Platelet Morphology Enlarged H Target Cells 2+ H Sodium 135 L Potassium 3.9 Chloride 103 Carbon Dioxide 25.6 Anion Gap 6 BUN 7 Creatinine 0.33 L Estimated GFR Greater than 89 POC Glucose 295 H Random Glucose 341 H Calcium 7.2 L* Prot Corrected Calcium 8.2 L Magnesium 1.7 Total Protein 5.2 L 04/13/18 04/13/18 04/13/18 07:19 12:11 17:38 WBC RBC Hgb Hct MCV MCH MCHC RDW Plt Count MPV Prelim Diff (Auto) WBC Differential Seg Neuts % (Manual) Lymphocytes % (Manual) Monocytes % (Manual) Eosinophils % (Manual) Abs Neuts (Manual) Differential Comment Platelet Estimate Platelet Morphology Target Cells Sodium Potassium Chloride Carbon Dioxide Anion Gap BUN Creatinine Estimated GFR POC Glucose 355 H 347 H 237 H Random Glucose Calcium Prot Corrected Calcium Magnesium Total Protein Microbiology 04/11/18 06:30 Catheterized Urine Urine Culture - Final Luda glabrata 04/10/18 15:19 Blood - Peripheral Aerobic Blood Culture - Preliminary No growth in 3 days 04/10/18 15:19 Blood - Peripheral Anaerobic Blood Culture - Preliminary No growth in 3 days 04/10/18 15:13 Blood - Peripheral Aerobic Blood Culture - Preliminary No growth in 3 days 04/10/18 15:13 Blood - Peripheral Anaerobic Blood Culture - Preliminary No growth in 3 days - Imaging ITS Impressions Abdomen/Pelvis CT 04/10/18 14:46 CONCLUSION: 1. An apparent generalized colitis in the proper clinical setting, presumably infectious or inflammatory. Right side of the colon appears more severely involved than the rest of it. 2. A mild gastroenteritis is also possible. 3. No GI tract obstruction. 4. Since the prior exam, the 3 mm right renal stone has dislodged and is now in the distal right ureter. Associated minimal obstructive uropathy. I don't clearly see this stone on the initial nursing home manager radiograph. 5. The 10 mm nonobstructing renal stone of the left lower pole is unchanged. 6. Heterogeneous cirrhotic liver with pneumobilia. There is increased size and enhancement of the vague lesion near the dome of the right hepatic lobe and this is of concern for a evolving hepatocellular carcinoma. 7. Small ascites and diffuse mesenteric edema. 8. Varices. 9. Previous splenectomy. 10. Atrophy of the pancreas and ductal dilatation in the tail region similar to before. No perceptible mass. 11. Tiny left pleural effusion, smaller. Assessment and Plan - Assessment (1) Colitis Code(s): K52.9 - Noninfective gastroenteritis and colitis, unspecified Status : Acute (2) Ascites Code(s): R18.8 - Other ascites Status: Chronic (3) Abdominal pain Code(s): R10.9 - Unspecified abdominal pain Status: Chronic - Plan ACUTE COLITIS with diarrhea, suspected infectious - cdif negative cont cipro flagyl, multiple hospitalizations, stool studies and gi consult, PSC/ CIRRHOSIS (drug induced) w min ascites on ct - compensated, will need fu w gi , start lasix and aldactone when stable LIVER MASS R hepatic lobe per ct - concern for hepatocellular ca per ct, will get AFP level follow up w GI RENAL CALCULI - 3mm stone lodged in distal ureter w mild hydronephrosis - w hematuria and possible uti, on abx fu cx w yeast, will give diflucan HX NHL DM insulin dependent remains uncontrolled, increase levemir to bid, cont diet and iss. CHRONIC PAIN/NARCOTIC dependence - pain management for acute pain indicated for now DVT PROPHYLAXIS - lovenox (2) Ascites Qualifiers: Ascites type: other type Qualified Code(s): R18.8 - Other ascites (3) Abdominal pain Qualifiers: Abdominal location: generalized Qualified Code(s): R10.84 - Generalized abdominal pain
[2018-04-14] MEDS: HYDROmorphone PF Inj 0.5 MG/0.5 ML Syringe IV.PUSH PRN ×6 (01:11→22:20)
[2018-04-14] MEDS: Insulin NovoLOG Aspart Correctional Sugar Inj SQ SCH ×5 (05:43→22:20)
[2018-04-14] MEDS: Ciprofloxacin 400 MG/200 ML 400 MG/200 ML PIGGYBACK IV.SIG SCH ×3 (05:47→22:17)
[2018-04-14] MEDS: Enoxaparin Inj 30 MG/0.3 ML Syringe SQ SCH (09:25)
[2018-04-14] MEDS: Insulin Detemir Inj 1,000 UNIT/10 ML Vial SQ SCH ×2 (09:25→22:20)
[2018-04-14 10:33] LABS: Alpha Fetoprotein Tumor Marker 8.6 ng/mL (0.5-8.0)
--- NOTE | 2018-04-14 14:51 | P.PN ---
Subjective Interval history: Follow-up colitis, UTI and diabetes mellitus. States she is weak continues to have loose stools and dysuria. Physical Exam Vital signs: Vital Signs 04/13/18 16:00 04/13/18 20:00 04/13/18 21:40 Temperature 98.9 F 100.7 F H Pulse Rate 97 H 101 H Respiratory Rate 17 16 6 L Blood Pressure 98/65 L 101/63 Pulse Oximetry 98 95 04/14/18 00:00 04/14/18 08:00 04/14/18 12:00 Temperature 99.4 F 97.9 F 97.9 F Pulse Rate 97 H 88 87 Respiratory Rate 16 18 18 Blood Pressure 102/60 100/67 93/57 L Pulse Oximetry 96 98 97 Intake & Output 04/13/18 04/14/18 04/14/18 18:59 06:59 18:59 Intake Total 1020 / 1020 880 / 880 200 / 200 Balance 1020 / 1020 880 / 880 200 / 200 Weight 49 kg Intake: IV 300 / 300 400 / 400 200 / 200 Cipro 400 MG/200 ML Inj 400 mg 200 / 200 200 / 200 200 / 200 In 200 ml @ 200 mls/hr IV.SIG Q8H DESTINI Rx#:[id number] Flagyl 500 MG Inj 100 ML @ 100 100 / 100 200 / 200 mls/hr IV.SIG Q8H DESTINI Rx#: [id number] Oral 720 / 720 480 / 480 Other: # Voids 4 2 Date of Last Bowel Movement 04/13/18 # Bowel Movements 2 1 Narrative: chronically appearing 47yo f aaox3 nad pleasant heart s1s2 reg lungs clear no wrr full expansion abd soft mod with generalized tenderness, hernia, Extremities no edema or cyanosis Skin is warm no lesions Results - Labs CBC & Chem 7: 04/13/18 05:13 04/13/18 05:13 Laboratory Results - last 24 hr 04/13/18 04/13/18 04/13/18 05:13 11:11 17:38 Sodium 135 L Potassium 3.9 Chloride 103 Carbon Dioxide 25.6 Anion Gap 6 BUN 7 Creatinine 0.33 L Estimated GFR Greater than 89 POC Glucose 237 H Random Glucose 341 H Calcium 7.2 L* Prot Corrected Calcium 8.2 L Magnesium 1.7 Total Protein 5.2 L Alpha Fetoprotein Cancelled Tumor Marker AFP 8.6 H HCG, Quant Cancelled Gestational Age Cancelled AFP MoM Cancelled AFP Interpretation Cancelled HCG MoM Cancelled Unconj (Free) Estriol Cancelled Unconj Estriol MoM Cancelled Down's Maternal Age Risk Cancelled Down Syndrome Risk Cancelled Trisomy 18 Risk Cancelled NTD Risk Assessment Cancelled 04/13/18 04/14/18 04/14/18 20:18 03:59 07:56 Sodium Potassium Chloride Carbon Dioxide Anion Gap BUN Creatinine Estimated GFR POC Glucose 109 90 86 Random Glucose Calcium Prot Corrected Calcium Magnesium Total Protein Alpha Fetoprotein Tumor Marker AFP HCG, Quant Gestational Age AFP MoM AFP Interpretation HCG MoM Unconj (Free) Estriol Unconj Estriol MoM Down's Maternal Age Risk Down Syndrome Risk Trisomy 18 Risk NTD Risk Assessment 04/14/18 13:04 Sodium Potassium Chloride Carbon Dioxide Anion Gap BUN Creatinine Estimated GFR POC Glucose 304 H Random Glucose Calcium Prot Corrected Calcium Magnesium Total Protein Alpha Fetoprotein Tumor Marker AFP HCG, Quant Gestational Age AFP MoM AFP Interpretation HCG MoM Unconj (Free) Estriol Unconj Estriol MoM Down's Maternal Age Risk Down Syndrome Risk Trisomy 18 Risk NTD Risk Assessment Microbiology 04/13/18 15:08 Stool Stool for WBCs - Final No WBC's seen 04/10/18 15:19 Blood - Peripheral Aerobic Blood Culture - Preliminary No growth in 4 days 04/10/18 15:19 Blood - Peripheral Anaerobic Blood Culture - Preliminary No growth in 4 days 04/10/18 15:13 Blood - Peripheral Aerobic Blood Culture - Preliminary No growth in 4 days 04/10/18 15:13 Blood - Peripheral Anaerobic Blood Culture - Preliminary No growth in 4 days 04/11/18 06:30 Catheterized Urine Urine Culture - Final Luda glabrata - Imaging ITS Impressions Abdomen/Pelvis CT 04/10/18 14:46 CONCLUSION: 1. An apparent generalized colitis in the proper clinical setting, presumably infectious or inflammatory. Right side of the colon appears more severely involved than the rest of it. 2. A mild gastroenteritis is also possible. 3. No GI tract obstruction. 4. Since the prior exam, the 3 mm right renal stone has dislodged and is now in the distal right ureter. Associated minimal obstructive uropathy. I don't clearly see this stone on the initial axle polisher radiograph. 5. The 10 mm nonobstructing renal stone of the left lower pole is unchanged. 6. Heterogeneous cirrhotic liver with pneumobilia. There is increased size and enhancement of the vague lesion near the dome of the right hepatic lobe and this is of concern for a evolving hepatocellular carcinoma. 7. Small ascites and diffuse mesenteric edema. 8. Varices. 9. Previous splenectomy. 10. Atrophy of the pancreas and ductal dilatation in the tail region similar to before. No perceptible mass. 11. Tiny left pleural effusion, smaller. Assessment and Plan - Assessment (1) Colitis Code(s): K52.9 - Noninfective gastroenteritis and colitis, unspecified Status : Acute (2) Ascites Code(s): R18.8 - Other ascites Status: Chronic (3) Abdominal pain Code(s): R10.9 - Unspecified abdominal pain Status: Chronic - Plan ACUTE COLITIS with diarrhea, suspected infectious - cdif negative cont cipro flagyl, multiple hospitalizations, stool studies and gi consult, PSC/ CIRRHOSIS (drug induced) w min ascites on ct - compensated, will need fu w gi , start lasix and aldactone when stable LIVER MASS R hepatic lobe per ct - concern for hepatocellular ca per ct, AFP level 8.6 follow up w GI RENAL CALCULI - 3mm stone lodged in distal ureter w mild hydronephrosis - w hematuria and possible uti, on abx fu cx w C glabrata consult ID HX NHL DM insulin dependent remains uncontrolled, increase levemir to bid, cont diet and iss. CHRONIC PAIN/NARCOTIC dependence - pain management for acute pain indicated for now DVT PROPHYLAXIS - lovenox (2) Ascites Qualifiers: Ascites type: other type Qualified Code(s): R18.8 - Other ascites (3) Abdominal pain Qualifiers: Abdominal location: generalized Qualified Code(s): R10.84 - Generalized abdominal pain
--- NOTE | 2018-04-14 16:34 | P.PNGI ---
Subjective Interval history: Patient sitting up at bedside Significant other visiting States she continues to have loose stools <SegundoMadyson - Last Filed: 04/14/18 16:30> Physical Exam Vital signs: Vital Signs 04/13/18 20:00 04/13/18 21:40 04/14/18 00:00 Temperature 100.7 F H 99.4 F Pulse Rate 101 H 97 H Respiratory Rate 16 6 L 16 Blood Pressure 101/63 102/60 Pulse Oximetry 95 96 04/14/18 08:00 04/14/18 12:00 Temperature 97.9 F 97.9 F Pulse Rate 88 87 Respiratory Rate 18 18 Blood Pressure 100/67 93/57 L Pulse Oximetry 98 97 Intake & Output 04/13/18 04/14/18 04/14/18 18:59 06:59 18:59 Intake Total 1020 / 1020 880 / 880 500 / 500 Balance 1020 / 1020 880 / 880 500 / 500 Weight 49 kg Intake: IV 300 / 300 400 / 400 500 / 500 Cipro 400 MG/200 ML Inj 400 mg 200 / 200 200 / 200 400 / 400 In 200 ml @ 200 mls/hr IV.SIG Q8H DESTINI Rx#:[id number] Flagyl 500 MG Inj 100 ML @ 100 100 / 100 200 / 200 100 / 100 mls/hr IV.SIG Q8H DESTINI Rx#: [id number] Oral 720 / 720 480 / 480 Other: # Voids 4 2 Date of Last Bowel Movement 04/13/18 # Bowel Movements 2 1 - Constitutional no acute distress, chronically ill appearing - Routine HEENT Exam Head: Present: normocephalic - Routine Respiratory Exam Present: CTA bilaterally - Routine Abdominal Exam Present: soft, normoactive bowel sounds, tenderness, distended. Absent: guarding, firm Comments: Mild tenderness on palpation generally during exam Possible umbilical hernia present apparently reduces when patient changes positioning - Routine Extremities Exam Absent: edema - Routine Skin Exam Present: dry, warm - Routine Neurological Exam Present: alert - Routine Psychiatric Exam Present: normal affect, cooperative <Madyson Raymond - Last Filed: 04/14/18 16:30> Vital signs: Vital Signs 04/13/18 20:00 04/13/18 21:40 04/14/18 00:00 Temperature 100.7 F H 99.4 F Pulse Rate 101 H 97 H Respiratory Rate 16 6 L 16 Blood Pressure 101/63 102/60 Pulse Oximetry 95 96 04/14/18 08:00 04/14/18 12:00 04/14/18 16:00 Temperature 97.9 F 97.9 F 98 F Pulse Rate 88 87 102 H Respiratory Rate 18 18 18 Blood Pressure 100/67 93/57 L 92/64 L Pulse Oximetry 98 97 98 Intake & Output 04/13/18 04/14/18 04/14/18 18:59 06:59 18:59 Intake Total 1020 / 1020 880 / 880 500 / 500 Balance 1020 / 1020 880 / 880 500 / 500 Weight 49 kg Intake: IV 300 / 300 400 / 400 500 / 500 Cipro 400 MG/200 ML Inj 400 mg 200 / 200 200 / 200 400 / 400 In 200 ml @ 200 mls/hr IV.SIG Q8H DESTINI Rx#:[id number] Flagyl 500 MG Inj 100 ML @ 100 100 / 100 200 / 200 100 / 100 mls/hr IV.SIG Q8H DESTINI Rx#: [id number] Oral 720 / 720 480 / 480 Other: # Voids 4 2 Date of Last Bowel Movement 04/13/18 # Bowel Movements 2 1 <Junior Crawford A - Last Filed: 04/14/18 17:42> Results - Labs CBC & Chem 7: 04/13/18 05:13 04/13/18 05:13 Laboratory Results - last 24 hr 04/13/18 04/13/18 04/13/18 05:13 11:11 17:38 Sodium 135 L Potassium 3.9 Chloride 103 Carbon Dioxide 25.6 Anion Gap 6 BUN 7 Creatinine 0.33 L Estimated GFR Greater than 89 POC Glucose 237 H Random Glucose 341 H Calcium 7.2 L* Prot Corrected Calcium 8.2 L Magnesium 1.7 Total Protein 5.2 L Alpha Fetoprotein Cancelled Tumor Marker AFP 8.6 H HCG, Quant Cancelled Gestational Age Cancelled AFP MoM Cancelled AFP Interpretation Cancelled HCG MoM Cancelled Unconj (Free) Estriol Cancelled Unconj Estriol MoM Cancelled Down's Maternal Age Risk Cancelled Down Syndrome Risk Cancelled Trisomy 18 Risk Cancelled NTD Risk Assessment Cancelled 04/13/18 04/14/18 04/14/18 20:18 03:59 07:56 Sodium Potassium Chloride Carbon Dioxide Anion Gap BUN Creatinine Estimated GFR POC Glucose 109 90 86 Random Glucose Calcium Prot Corrected Calcium Magnesium Total Protein Alpha Fetoprotein Tumor Marker AFP HCG, Quant Gestational Age AFP MoM AFP Interpretation HCG MoM Unconj (Free) Estriol Unconj Estriol MoM Down's Maternal Age Risk Down Syndrome Risk Trisomy 18 Risk NTD Risk Assessment 04/14/18 13:04 Sodium Potassium Chloride Carbon Dioxide Anion Gap BUN Creatinine Estimated GFR POC Glucose 304 H Random Glucose Calcium Prot Corrected Calcium Magnesium Total Protein Alpha Fetoprotein Tumor Marker AFP HCG, Quant Gestational Age AFP MoM AFP Interpretation HCG MoM Unconj (Free) Estriol Unconj Estriol MoM Down's Maternal Age Risk Down Syndrome Risk Trisomy 18 Risk NTD Risk Assessment Microbiology 04/13/18 15:08 Stool Cryptosporidium Antigen - Final Negative - No Cryptosporicium antigen detected In selected cases of patients with a history of immunosuppression or foreign travel, a full ova and parasites examination may be desired. Contact the microbiology lab if full workup is indicated and subit another specimen for testing. 04/13/18 15:08 Stool Giardia Antigen ([facility]) - Final Negative - No Giardia Antigen detected In selected cases of patients with a history of immunosuppression or foreign travel, a full ova and parasites examination may be desired. Contact the microbiology lab if full workup is indicated and subit another specimen for testing. 04/13/18 15:08 Stool Stool for WBCs - Final No WBC's seen 04/10/18 15:19 Blood - Peripheral Aerobic Blood Culture - Preliminary No growth in 4 days 04/10/18 15:19 Blood - Peripheral Anaerobic Blood Culture - Preliminary No growth in 4 days 04/10/18 15:13 Blood - Peripheral Aerobic Blood Culture - Preliminary No growth in 4 days 04/10/18 15:13 Blood - Peripheral Anaerobic Blood Culture - Preliminary No growth in 4 days 04/11/18 06:30 Catheterized Urine Urine Culture - Final Luda glabrata <Madyson Raymond - Last Filed: 04/14/18 16:30> - Labs CBC & Chem 7: 04/13/18 05:13 04/13/18 05:13 Laboratory Results - last 24 hr 04/13/18 04/13/18 04/13/18 05:13 11:11 17:38 Sodium 135 L Potassium 3.9 Chloride 103 Carbon Dioxide 25.6 Anion Gap 6 BUN 7 Creatinine 0.33 L Estimated GFR Greater than 89 POC Glucose 237 H Random Glucose 341 H Calcium 7.2 L* Prot Corrected Calcium 8.2 L Magnesium 1.7 Total Protein 5.2 L Alpha Fetoprotein Cancelled Tumor Marker AFP 8.6 H HCG, Quant Cancelled Gestational Age Cancelled AFP MoM Cancelled AFP Interpretation Cancelled HCG MoM Cancelled Unconj (Free) Estriol Cancelled Unconj Estriol MoM Cancelled Down's Maternal Age Risk Cancelled Down Syndrome Risk Cancelled Trisomy 18 Risk Cancelled NTD Risk Assessment Cancelled 04/13/18 04/14/18 04/14/18 20:18 03:59 07:56 Sodium Potassium Chloride Carbon Dioxide Anion Gap BUN Creatinine Estimated GFR POC Glucose 109 90 86 Random Glucose Calcium Prot Corrected Calcium Magnesium Total Protein Alpha Fetoprotein Tumor Marker AFP HCG, Quant Gestational Age AFP MoM AFP Interpretation HCG MoM Unconj (Free) Estriol Unconj Estriol MoM Down's Maternal Age Risk Down Syndrome Risk Trisomy 18 Risk NTD Risk Assessment 04/14/18 13:04 Sodium Potassium Chloride Carbon Dioxide Anion Gap BUN Creatinine Estimated GFR POC Glucose 304 H Random Glucose Calcium Prot Corrected Calcium Magnesium Total Protein Alpha Fetoprotein Tumor Marker AFP HCG, Quant Gestational Age AFP MoM AFP Interpretation HCG MoM Unconj (Free) Estriol Unconj Estriol MoM Down's Maternal Age Risk Down Syndrome Risk Trisomy 18 Risk NTD Risk Assessment Microbiology 04/13/18 15:08 Stool Cryptosporidium Antigen - Final Negative - No Cryptosporicium antigen detected In selected cases of patients with a history of immunosuppression or foreign travel, a full ova and parasites examination may be desired. Contact the microbiology lab if full workup is indicated and subit another specimen for testing. 04/13/18 15:08 Stool Giardia Antigen ([facility]) - Final Negative - No Giardia Antigen detected In selected cases of patients with a history of immunosuppression or foreign travel, a full ova and parasites examination may be desired. Contact the microbiology lab if full workup is indicated and subit another specimen for testing. 04/13/18 15:08 Stool Stool for WBCs - Final No WBC's seen 04/10/18 15:19 Blood - Peripheral Aerobic Blood Culture - Preliminary No growth in 4 days 04/10/18 15:19 Blood - Peripheral Anaerobic Blood Culture - Preliminary No growth in 4 days 04/10/18 15:13 Blood - Peripheral Aerobic Blood Culture - Preliminary No growth in 4 days 04/10/18 15:13 Blood - Peripheral Anaerobic Blood Culture - Preliminary No growth in 4 days <Junior Crawford - Last Filed: 04/14/18 17:42> Assessment and Plan (1) Colitis Status: Acute Code(s): K52.9 - Noninfective gastroenteritis and colitis, unspecified (2) Ascites Status: Chronic Code(s): R18.8 - Other ascites (3) Abdominal pain Status: Chronic Code(s): R10.9 - Unspecified abdominal pain - Plan This patient is a 47-year-old female with a past medical history of non-Hodgkin' s lymphoma, nonalcoholic cirrhosis, drug induced hepatic injury, previous biliary stent, and diabetes mellitus. Patient presented to the emergency room at [facility] with complaint of abdominal pain and bloating, bilateral lower extremity edema, nausea, vomiting and loose stools. Patient endorses having a fever of 102 at home with increasing generalized weakness. Upon consultation, patient reports 4-day history of loose green to yellow colored stool. Patient endorses accompanied fever times 1 day of 102 F. Patient denies any recent travel or sick contacts. Patient also reports right upper quadrant pain that is chronic with intermittent nausea. Patient denies any noted bleeding. Our service has been consulted to evaluate patient for colitis. Colitis -Patient endorses 4-day history of loose green to yellow colored stools. Fever of 102 x 1 day. -04/10/2018 CT abdomen and pelvis: 1. An apparent generalized colitis in the proper clinical setting, presumably infectious or inflammatory. Right side of the colon appears more severely involved than the rest of it. 2. A mild gastroenteritis is also possible. 3. No GI tract obstruction. 4. Since the prior exam, the 3 mm right renal stone has dislodged and is now in the distal right ureter. Associated minimal obstructive uropathy. 5. The 10 mm nonobstructing renal stone of the left lower pole is unchanged. 6. Heterogeneous cirrhotic liver with pneumobilia. There is increased size and enhancement of the vague lesion near the dome of the right hepatic lobe and this is of concern for a evolving hepatocellular carcinoma. 7. Small ascites and diffuse mesenteric edema. 8. Varices. 9. Previous splenectomy. -04/13/2018 WBC 9.0 hemoglobin 10.0 hematocrit 30.0 platelet count 206 -04/12/2018 total bilirubin 3.8 AST 136 ALT 101 alk phos 1056 04/14/2018 Colitis Patient reports continued loose green stool No fever today. Denies any nausea or vomiting Reports intermittent generalized abdominal discomfort. No new labs today Plan -diet as tolerated -Continue ciprofloxacin 400 mg IV q. 8 -Continue Flagyl 500 mg IV q. 8 -Antiemetics and analgesics as per attending -Monitor labs -Supportive care -Further recommendations to follow This patient has been seen by myself and Dr. Crawford and this note is written on his behalf - Attending Attestation Dr. Crawford <Madyson Raymond - Last Filed: 04/14/18 16:30> (1) Colitis Status: Acute Code(s): K52.9 - Noninfective gastroenteritis and colitis, unspecified (2) Ascites Status: Chronic Code(s): R18.8 - Other ascites (3) Abdominal pain Status: Chronic Code(s): R10.9 - Unspecified abdominal pain - Attending Attestation Agree with above assessment and plan. Will follow up with you. <Junior Crawford - Last Filed: 04/14/18 17:42> <Madyson Raymond - Last Filed: 04/14/18 16:30> (2) Ascites Qualifiers: Ascites type: other type Qualified Code(s): R18.8 - Other ascites (3) Abdominal pain Qualifiers: Abdominal location: generalized Qualified Code(s): R10.84 - Generalized abdominal pain <Junior Crawford - Last Filed: 04/14/18 17:42> (2) Ascites Qualifiers: Ascites type: other type Qualified Code(s): R18.8 - Other ascites (3) Abdominal pain Qualifiers: Abdominal location: generalized Qualified Code(s): R10.84 - Generalized abdominal pain
[2018-04-15] MEDS: HYDROmorphone PF Inj 0.5 MG/0.5 ML Syringe IV.PUSH PRN ×6 (02:35→21:40)
[2018-04-15] MEDS: Insulin NovoLOG Aspart Correctional Sugar Inj SQ SCH ×5 (03:58→20:37)
[2018-04-15] MEDS: Ciprofloxacin 400 MG/200 ML 400 MG/200 ML PIGGYBACK IV.SIG SCH ×3 (06:26→21:37)
[2018-04-15 06:27] LABS: Alanine Aminotransferase 64 U/L (10-53); Albumin 1.3 g/dL (3.4-5.0); Alkaline Phosphatase 961 U/L (45-117); Anion Gap 6 meq/L (5-15); Aspartate Aminotransferase 111 U/L (15-37); Blood Urea Nitrogen 10 mg/dL (7-18); Calcium 7.2 mg/dL (8.5-10.1); Carbon Dioxide 25.7 meq/L (21.0-32.0); Chloride 107 meq/L (98-107); Glomerular Filtration Rate Greater Than 89 mL/min (>89); Glucose,Random 63 mg/dL (74-106); Magnesium 1.7 mg/dL (1.5-2.5); Potassium 3.3 meq/L (3.5-5.1); Sodium 139 meq/L (136-145)
[2018-04-15] MEDS: Insulin Detemir Inj 1,000 UNIT/10 ML Vial SQ SCH ×2 (08:51→20:37)
[2018-04-15] MEDS: Enoxaparin Inj 30 MG/0.3 ML Syringe SQ SCH (08:51)
[2018-04-15] MEDS ORDERED: Potassium Bicarbonate 25 MEQ Effervescent Tablet PO ONE (10:03)
--- NOTE | 2018-04-15 13:15 | P.PN ---
Subjective Interval history: Follow-up UTI and colitis. Complains of dysuria and loose stools. Fingerstick 70 this morning patient received 10 units of regular insulin last night. Physical Exam Vital signs: Vital Signs 04/14/18 16:00 04/14/18 20:00 04/15/18 00:00 Temperature 98 F 99.1 F 98.8 F Pulse Rate 102 H 101 H 105 H Respiratory Rate 18 20 18 Blood Pressure 92/64 L 97/56 L 92/58 L Pulse Oximetry 98 97 97 04/15/18 08:00 04/15/18 12:00 Temperature 97.6 F 97.8 F Pulse Rate 96 H 87 Respiratory Rate 16 16 Blood Pressure 92/60 L 100/60 Pulse Oximetry 96 97 Intake & Output 04/14/18 04/15/18 04/15/18 18:59 06:59 18:59 Intake Total 500 / 500 300 / 300 300 / 300 Balance 500 / 500 300 / 300 300 / 300 Weight 56.7 kg Intake: IV 500 / 500 300 / 300 300 / 300 Cipro 400 MG/200 ML Inj 400 mg 400 / 400 200 / 200 200 / 200 In 200 ml @ 200 mls/hr IV.SIG Q8H DESTINI Rx#:[id number] Flagyl 500 MG Inj 100 ML @ 100 100 / 100 100 / 100 100 / 100 mls/hr IV.SIG Q8H DESTINI Rx#: [id number] Other: # Voids 4 2 Date of Last Bowel Movement 04/14/18 04/14/18 04/15/18 # Bowel Movements 3 1 Narrative: chronically appearing 47yo f aaox3 nad [place] heart s1s2 reg lungs clear no wrr full expansion abd soft +BS right CVA tenderness Extremities no edema or cyanosis Skin is warm no lesions Results - Labs CBC & Chem 7: 04/13/18 05:13 04/15/18 04:25 Laboratory Results - last 24 hr 04/14/18 04/14/18 04/14/18 13:04 17:33 22:20 Sodium Potassium Chloride Carbon Dioxide Anion Gap BUN Creatinine Estimated GFR POC Glucose 304 H 160 H 230 H Random Glucose Calcium Calcium Adj for Albumin Magnesium Total Bilirubin AST ALT Alkaline Phosphatase Total Protein Albumin 04/15/18 04/15/18 04/15/18 04:25 06:33 11:15 Sodium 139 Potassium 3.3 L Chloride 107 Carbon Dioxide 25.7 Anion Gap 6 BUN 10 Creatinine 0.24 L Estimated GFR Greater than 89 POC Glucose 70 192 H Random Glucose 63 L D Calcium 7.2 L* Calcium Adj for Albumin 8.3 L Magnesium 1.7 Total Bilirubin 2.6 H AST 111 H ALT 64 H Alkaline Phosphatase 961 H Total Protein 5.0 L Albumin 1.3 L Microbiology 04/10/18 15:19 Blood - Peripheral Aerobic Blood Culture - Final No growth in 5 days 04/10/18 15:19 Blood - Peripheral Anaerobic Blood Culture - Final No growth in 5 days 04/10/18 15:13 Blood - Peripheral Aerobic Blood Culture - Final No growth in 5 days 04/10/18 15:13 Blood - Peripheral Anaerobic Blood Culture - Final No growth in 5 days 04/13/18 15:08 Stool Cryptosporidium Antigen - Final Negative - No Cryptosporicium antigen detected In selected cases of patients with a history of immunosuppression or foreign travel, a full ova and parasites examination may be desired. Contact the microbiology lab if full workup is indicated and subit another specimen for testing. 04/13/18 15:08 Stool Giardia Antigen ([facility]ION) - Final Negative - No Giardia Antigen detected In selected cases of patients with a history of immunosuppression or foreign travel, a full ova and parasites examination may be desired. Contact the microbiology lab if full workup is indicated and subit another specimen for testing. 04/13/18 15:08 Stool Stool for WBCs - Final No WBC's seen - Imaging ITS Impressions Abdomen/Pelvis CT 04/10/18 14:46 CONCLUSION: 1. An apparent generalized colitis in the proper clinical setting, presumably infectious or inflammatory. Right side of the colon appears more severely involved than the rest of it. 2. A mild gastroenteritis is also possible. 3. No GI tract obstruction. 4. Since the prior exam, the 3 mm right renal stone has dislodged and is now in the distal right ureter. Associated minimal obstructive uropathy. I don't clearly see this stone on the initial trade show coordinator radiograph. 5. The 10 mm nonobstructing renal stone of the left lower pole is unchanged. 6. Heterogeneous cirrhotic liver with pneumobilia. There is increased size and enhancement of the vague lesion near the dome of the right hepatic lobe and this is of concern for a evolving hepatocellular carcinoma. 7. Small ascites and diffuse mesenteric edema. 8. Varices. 9. Previous splenectomy. 10. Atrophy of the pancreas and ductal dilatation in the tail region similar to before. No perceptible mass. 11. Tiny left pleural effusion, smaller. - Procedures none Assessment and Plan - Assessment (1) Colitis Code(s): K52.9 - Noninfective gastroenteritis and colitis, unspecified Status : Acute (2) Ascites Code(s): R18.8 - Other ascites Status: Chronic (3) Abdominal pain Code(s): R10.9 - Unspecified abdominal pain Status: Chronic - Plan ACUTE COLITIS with diarrhea, suspected infectious - cdif negative cont cipro flagyl, multiple hospitalizations and gi consult, PSC/ CIRRHOSIS (drug induced) w min ascites on ct - compensated, will need fu w gi , start lasix and aldactone when stable LIVER MASS R hepatic lobe per ct - concern for hepatocellular ca per ct, AFP level 8.6 follow up w GI RENAL CALCULI - 3mm stone lodged in distal ureter w mild hydronephrosis - w hematuria and possible uti, on abx fu cx w C glabrata consult ID HX NHL DM insulin dependent remains uncontrolled, increase levemir to bid, cont diet and iss. CHRONIC PAIN/NARCOTIC dependence - pain management for acute pain indicated for now DVT PROPHYLAXIS - lovenox Discharge Planning: Discharge when clinically improved still having diarrhea (2) Ascites Qualifiers: Ascites type: other type Qualified Code(s): R18.8 - Other ascites (3) Abdominal pain Qualifiers: Abdominal location: generalized Qualified Code(s): R10.84 - Generalized abdominal pain
--- NOTE | 2018-04-15 15:32 | P.PNGI ---
Subjective Interval history: Patient sitting on side of the bed eating small amounts of food brought in from the outside No current nausea or vomiting but decreased appetite continues Diarrhea x3 stools today, brown no obvious bleed <Lola Levin - Last Filed: 04/15/18 15:32> Physical Exam Vital signs: Vital Signs 04/14/18 16:00 04/14/18 20:00 04/15/18 00:00 Temperature 98 F 99.1 F 98.8 F Pulse Rate 102 H 101 H 105 H Respiratory Rate 18 20 18 Blood Pressure 92/64 L 97/56 L 92/58 L Pulse Oximetry 98 97 97 04/15/18 08:00 04/15/18 12:00 Temperature 97.6 F 97.8 F Pulse Rate 96 H 87 Respiratory Rate 16 16 Blood Pressure 92/60 L 100/60 Pulse Oximetry 96 97 Intake & Output 04/14/18 04/15/18 04/15/18 18:59 06:59 18:59 Intake Total 500 / 500 300 / 300 600 / 600 Balance 500 / 500 300 / 300 600 / 600 Weight 56.7 kg Intake: IV 500 / 500 300 / 300 600 / 600 Cipro 400 MG/200 ML Inj 400 mg 400 / 400 200 / 200 400 / 400 In 200 ml @ 200 mls/hr IV.SIG Q8H DESTINI Rx#:[id number] Flagyl 500 MG Inj 100 ML @ 100 100 / 100 100 / 100 200 / 200 mls/hr IV.SIG Q8H DESTINI Rx#: [id number] Other: # Voids 4 2 Date of Last Bowel Movement 04/14/18 04/14/18 04/15/18 # Bowel Movements 3 1 - Constitutional mild distress, thin, cachectic, disheveled, cooperative - Routine HEENT Exam Head: Present: normocephalic ENT: Present: mucous membranes dry - Routine Neck Exam Present: supple - Routine Respiratory Exam Present: decreased breath sounds - Routine Cardiovascular Exam Present: S1, S2 (Low volumes but even and unlabored at rest) - Routine Abdominal Exam Present: distended (Mild to moderate, generalized tenderness to minimal palpation) - Routine Extremities Exam Present: edema (Generalized lower extremity 1+/4+), pallor <Lola Levin - Last Filed: 04/15/18 15:32> Vital signs: Vital Signs 04/15/18 16:00 11/27/18 20:00 04/15/18 21:40 Temperature 98.5 F 98.3 F Pulse Rate 89 93 H Respiratory Rate 16 17 18 Blood Pressure 97/58 L 93/58 L 97/65 L Pulse Oximetry 99 95 04/16/18 00:00 04/16/18 01:59 04/16/18 08:00 Temperature 98.1 F 98 F Pulse Rate 97 H 98 H 81 Respiratory Rate 18 16 Blood Pressure 92/60 L 100/69 96/59 L Pulse Oximetry 97 96 04/16/18 12:00 Temperature 98.5 F Pulse Rate 84 Respiratory Rate 16 Blood Pressure 91/57 L Pulse Oximetry 97 Intake & Output 04/15/18 04/16/18 04/16/18 18:59 06:59 18:59 Intake Total 2099 / 2099 1600 / 1600 Balance 2099 / 2099 1600 / 1600 Weight 58.6 kg Intake: IV 600 / 600 600 / 600 Cipro 400 MG/200 ML Inj 400 mg 400 / 400 400 / 400 In 200 ml @ 200 mls/hr IV.SIG Q8H DESTINI Rx#:[id number] Flagyl 500 MG Inj 100 ML @ 100 200 / 200 200 / 200 mls/hr IV.SIG Q8H DESTINI Rx#: [id number] Oral 1500 / 1500 1000 / 1000 Other: # Voids 3 3 Date of Last Bowel Movement 04/15/18 04/15/18 # Bowel Movements 3 <Junior Crawford A - Last Filed: 04/16/18 14:35> Results - Labs CBC & Chem 7: 04/13/18 05:13 04/15/18 04:25 Laboratory Results - last 24 hr 04/14/18 04/14/18 04/15/18 17:33 22:20 04:25 Sodium 139 Potassium 3.3 L Chloride 107 Carbon Dioxide 25.7 Anion Gap 6 BUN 10 Creatinine 0.24 L Estimated GFR Greater than 89 POC Glucose 160 H 230 H Random Glucose 63 L D Calcium 7.2 L* Calcium Adj for Albumin 8.3 L Magnesium 1.7 Total Bilirubin 2.6 H AST 111 H ALT 64 H Alkaline Phosphatase 961 H Total Protein 5.0 L Albumin 1.3 L 04/15/18 04/15/18 06:33 11:15 Sodium Potassium Chloride Carbon Dioxide Anion Gap BUN Creatinine Estimated GFR POC Glucose 70 192 H Random Glucose Calcium Calcium Adj for Albumin Magnesium Total Bilirubin AST ALT Alkaline Phosphatase Total Protein Albumin Microbiology 04/10/18 15:19 Blood - Peripheral Aerobic Blood Culture - Final No growth in 5 days 04/10/18 15:19 Blood - Peripheral Anaerobic Blood Culture - Final No growth in 5 days 04/10/18 15:13 Blood - Peripheral Aerobic Blood Culture - Final No growth in 5 days 04/10/18 15:13 Blood - Peripheral Anaerobic Blood Culture - Final No growth in 5 days 04/13/18 15:08 Stool Cryptosporidium Antigen - Final Negative - No Cryptosporicium antigen detected In selected cases of patients with a history of immunosuppression or foreign travel, a full ova and parasites examination may be desired. Contact the microbiology lab if full workup is indicated and subit another specimen for testing. 04/13/18 15:08 Stool Giardia Antigen ([facility]ION) - Final Negative - No Giardia Antigen detected In selected cases of patients with a history of immunosuppression or foreign travel, a full ova and parasites examination may be desired. Contact the microbiology lab if full workup is indicated and subit another specimen for testing. 04/13/18 15:08 Stool Stool for WBCs - Final No WBC's seen <Lola Levin - Last Filed: 04/15/18 15:32> - Labs CBC & Chem 7: 04/13/18 05:13 04/16/18 05:28 Laboratory Results - last 24 hr 04/15/18 04/15/18 04/16/18 16:24 20:26 02:17 Sodium Potassium Chloride Carbon Dioxide Anion Gap BUN Creatinine Estimated GFR POC Glucose 224 H 250 H 85 Random Glucose Calcium Calcium Adj for Albumin Magnesium Albumin Urine Color Urine Clarity Urine pH Ur Specific [place] Urine Protein Urine Glucose (UA) Urine Ketones Urine Occult Blood Urine Nitrate Urine Bilirubin Urine Ictotest Urine Urobilinogen Ur Leukocyte Esterase Urine RBC Urine WBC Ur Squamous Epith Cells Calcium Oxalate Crystal Urine Mucus Urine Yeast Micro UA Comment Ur Microscopic Review Urine Culture Comments Stl C.difficile DNA Amp St C. diff Tox Epid 027 04/16/18 04/16/18 04/16/18 05:28 07:36 10:44 Sodium 139 Potassium 3.3 L Chloride 107 Carbon Dioxide 24.7 Anion Gap 7 BUN 7 Creatinine 0.28 L Estimated GFR Greater than 89 POC Glucose 100 Random Glucose 115 H Calcium 7.2 L* Calcium Adj for Albumin 9.3 Magnesium 1.7 Albumin 1.4 L Urine Color Urine Clarity Urine pH Ur Specific [place] Urine Protein Urine Glucose (UA) Urine Ketones Urine Occult Blood Urine Nitrate Urine Bilirubin Urine Ictotest Urine Urobilinogen Ur Leukocyte Esterase Urine RBC Urine WBC Ur Squamous Epith Cells Calcium Oxalate Crystal Urine Mucus Urine Yeast Micro UA Comment Ur Microscopic Review Urine Culture Comments Stl C.difficile DNA Amp Negative St C. diff Tox Epid 027 Negative 04/16/18 04/16/18 04/16/18 10:44 12:02 12:13 Sodium Potassium Chloride Carbon Dioxide Anion Gap BUN Creatinine Estimated GFR POC Glucose 104 Random Glucose Calcium Calcium Adj for Albumin Magnesium 1.8 Albumin Urine Color Sheri Urine Clarity Cloudy H Urine pH 6.0 Ur Specific [place] 1.017 Urine Protein 30 H Urine Glucose (UA) Negative Urine Ketones Negative Urine Occult Blood Negative Urine Nitrate Negative Urine Bilirubin Small H Urine Ictotest Positive H Urine Urobilinogen 2.0 H Ur Leukocyte Esterase Moderate H Urine RBC 25 H Urine WBC 59 H Ur Squamous Epith Cells 28 Calcium Oxalate Crystal Rare H Urine Mucus Few H Urine Yeast Many H Micro UA Comment Cath-culture ind Ur Microscopic Review Not Reportable Urine Culture Comments Cath-cult indicated Stl C.difficile DNA Amp St C. diff Tox Epid 027 Microbiology 04/13/18 15:08 Stool Enteric Pathogens (PCR) - Final No enteric pathogens detected by PCR (No Salmonella sp., Shigella sp., Campylobacter sp., Yersinia enterocolitica, Vibrio sp., Norovirus, or EHEC (Shiga Toxin 1 or Shiga Toxin 2) detected. 04/10/18 15:19 Blood - Peripheral Aerobic Blood Culture - Final No growth in 5 days 04/10/18 15:19 Blood - Peripheral Anaerobic Blood Culture - Final No growth in 5 days 04/10/18 15:13 Blood - Peripheral Aerobic Blood Culture - Final No growth in 5 days 04/10/18 15:13 Blood - Peripheral Anaerobic Blood Culture - Final No growth in 5 days - Imaging Impressions Abdomen/Bladder Ultrasound 04/16/18 00:00 CONCLUSION: No hydronephrosis. <Junior Crawford - Last Filed: 04/16/18 14:35> Assessment and Plan (1) Colitis Status: Acute Code(s): K52.9 - Noninfective gastroenteritis and colitis, unspecified (2) Ascites Status: Chronic Code(s): R18.8 - Other ascites (3) Abdominal pain Status: Chronic Code(s): R10.9 - Unspecified abdominal pain - Plan This patient is a 47-year-old female with a past medical history of non-Hodgkin' s lymphoma, nonalcoholic cirrhosis, drug induced hepatic injury, previous biliary stent, and diabetes mellitus. Patient presented to the emergency room at [facility] with complaint of abdominal pain and bloating, bilateral lower extremity edema, nausea, vomiting and loose stools. Patient endorses having a fever of 102 at home with increasing generalized weakness. Upon consultation, patient reports 4-day history of loose green to yellow colored stool. Patient endorses accompanied fever times 1 day of 102 F. Patient denies any recent travel or sick contacts. Patient also reports right upper quadrant pain that is chronic with intermittent nausea. Patient denies any noted bleeding. Our service has been consulted to evaluate patient for colitis. Colitis -Patient endorses 4-day history of loose green to yellow colored stools. Fever of 102 x 1 day. -04/10/2018 CT abdomen and pelvis: 1. An apparent generalized colitis in the proper clinical setting, presumably infectious or inflammatory. Right side of the colon appears more severely involved than the rest of it. 2. A mild gastroenteritis is also possible. 3. No GI tract obstruction. 4. Since the prior exam, the 3 mm right renal stone has dislodged and is now in the distal right ureter. Associated minimal obstructive uropathy. 5. The 10 mm nonobstructing renal stone of the left lower pole is unchanged. 6. Heterogeneous cirrhotic liver with pneumobilia. There is increased size and enhancement of the vague lesion near the dome of the right hepatic lobe and this is of concern for a evolving hepatocellular carcinoma. 7. Small ascites and diffuse mesenteric edema. 8. Varices. 9. Previous splenectomy. -04/13/2018 WBC 9.0 hemoglobin 10.0 hematocrit 30.0 platelet count 206 -04/12/2018 total bilirubin 3.8 AST 136 ALT 101 alk phos 1056 04/14/2018 Colitis Patient reports continued loose green stool No fever today. Denies any nausea or vomiting Reports intermittent generalized abdominal discomfort. No new labs today 04/15/2018, patient states decreased appetite but is eating small amounts of food brought in from a friend. Encourage small feedings with hydration. Patient states 3 loose brown stools today not related to feeding time, last hemoglobin check 10., no obvious bleeding. We will continue treatment for colitis associated with fever initially, treated infectious versus inflammatory Anemia chronic, probably secondary to her cirrhotic liver. Abdomen shows mild distention without obvious changes. Plan Diet as tolerated per attending Briana Moon continue for now Pain management per attending's Monitor labs and monitor for any obvious bleeding Supportive care, once patient is stable from her abdominal pain and back to her baseline number of stools per day GI can follow-up on an outpatient basis Patient was seen per myself and Dr. Crawford, note was written on his behalf <Lola Levin - Last Filed: 04/15/18 15:32> (1) Colitis Status: Acute Code(s): K52.9 - Noninfective gastroenteritis and colitis, unspecified (2) Ascites Status: Chronic Code(s): R18.8 - Other ascites (3) Abdominal pain Status: Chronic Code(s): R10.9 - Unspecified abdominal pain - Attending Attestation Agree with above assessment and plan. Will continue supportive care, colonoscopy if no improvement within the next 24 to 48 hours. Will follow up with you. <Junior Crawford A - Last Filed: 04/16/18 14:35> <Lola Levin - Last Filed: 04/15/18 15:32> (2) Ascites Qualifiers: Ascites type: other type Qualified Code(s): R18.8 - Other ascites (3) Abdominal pain Qualifiers: Abdominal location: generalized Qualified Code(s): R10.84 - Generalized abdominal pain <Junior Crawford - Last Filed: 04/16/18 14:35> (2) Ascites Qualifiers: Ascites type: other type Qualified Code(s): R18.8 - Other ascites (3) Abdominal pain Qualifiers: Abdominal location: generalized Qualified Code(s): R10.84 - Generalized abdominal pain
--- NOTE | 2018-04-15 17:31 | P.CONID ---
History of Present Illness Service: ID Consult date: 04/15/18 Requesting Physician: Dillon Landeros Reason for Consult: jovanni layton Primary Care Provider: Arielle Perez MD History of Present Illness: 47 yo female known to me from multiple previous clicnail enconters Pt has h/o primary biliary sclerosis, not on transplant list and was admitted numerous times for cholangitis and biliary sepsis This time pt presented with fever, chills worsening abdominal pain; she also has some disuria Her fever was up to 102, she had shakes and chills On presentation fever 102.4, WBC 16 K + elevated AST, ALT, markely elevated alk phos Blood clx NGTD- final Pt started on CIpro+ flagyl and clinically improved, currently no fever and nl WBC CT from admisstion apparent generalized colitis in the proper clinical setting, presumably infectious or inflammatory. Right side of the colon appears more severely involved than the rest of it. 3 mm right renal stone has dislodged and is now in the distal right ureter. Associated minimal obstructive uropathy. I don't clearly see this stone on the initial psychometric examiner radiograph, 10 mm nonobstructing renal stone of the left lower pole is unchanged. It also showed heterogeneous cirrhotic liver with pneumobilia and an increased size and enhancement of the vague lesion near the dome of the right hepatic lobe and this is of concern for a evolving hepatocellular carcinoma. She has small ascites and diffuse mesenteric edema. GFR is normal UA was markedly abnormal, however first appear to be a por speciman with excess of sq epis and skin matthew on the culture, repeat one showed C.glarata Review of Systems All other systems reviewed negative except as stated in HPI PMFSH - History History Provided By: Patient - Medical History Medical History: Medical History (Last Reviewed 04/16/18 @ 06:08 by Christiane Jackson MD) Cirrhosis Diabetes Gallstones Hepatomegaly Kidney stone Non Hodgkin's lymphoma - Surgical History Surgical History: Surgical History (Last Reviewed 04/16/18 @ 06:08 by Christiane Jcakson MD) H/O splenectomy History of liver biopsy - Family History Family History: Family History (Last Reviewed 04/16/18 @ 06:08 by Christiane Jackson MD) Father CAD (coronary artery disease) - Social History I have reviewed the patient's Social History: Yes - Tobacco History Second Hand Smoke Exposure: No Smoking Status: Never smoker Tobacco Type: Cigarettes - Alcohol History How Often Do You Have a Drink Containing Alcohol: Never - Substance Use History Substance History: No History of Abuse - Travel History Recent Travel in the [place] Within the Last 8 Weeks: No Recent Travel Out of the Country Within the Last 8 Weeks: No - Immunization History Tetanus Immunization: <5 Years Hx Influenza Vaccine This Season: Yes Medications and Allergies Active Medications: Active Medications Acetaminophen (Tylenol) 500 mg PO Q6H PRN PRN Reason: Fever, headache, pain 1-4 Last Admin: 04/13/18 20:47 Dose: 500 mg Al Hydroxide/Mg Hydroxide (Milk Of Magnesia Liq) 30 ml PO Q12H PRN PRN Reason: Mild Constipation Bisacodyl (Dulcolax Supp) 10 mg RECTAL DAILY PRN PRN Reason: SEVERE CONSITIPATION Dextrose (D50w Vial) 50 ml IV.PUSH UNSCH PRN PRN Reason: PER HYPOGLYCEMIA PROTOCOL Diphenhydramine HCl (Benadryl) 50 mg PO Q6H PRN PRN Reason: itching Enoxaparin Sodium (Lovenox Inj) 30 mg SQ DAILY DESTINI Last Admin: 04/15/18 08:51 Dose: Not Given Glucagon (Glucagon Inj) 1 mg OTHER PRN PRN PRN Reason: for Hypoglycemia Protocol Hydromorphone HCl (Dilaudid Pf Inj) 0.5 mg IV.PUSH Q4H PRN PRN Reason: ABDOMINAL PAIN Last Admin: 04/15/18 14:03 Dose: 0.5 mg Ciprofloxacin/Dextrose (Cipro 400 Mg/200 Ml Inj) 400 mg in 200 mls @ 200 mls/ hr IV.SIG Q8H DESTINI Last Infusion: 04/15/18 13:27 Dose: Infused Metronidazole/Sodium Chloride (Flagyl 500 Mg Inj) 100 mls @ 100 mls/hr IV.SIG Q8H DESTINI Last Infusion: 04/15/18 13:16 Dose: Infused Insulin Aspart (Novolog Insulin Correctional Sugar Inj) 0 unit SQ ACHS AND 3AM DESTINI; Protocol Last Admin: 04/15/18 16:42 Dose: 3 unit Insulin Detemir (Levemir Inj) 25 unit SQ BID DESTINI Last Admin: 04/15/18 08:51 Dose: 25 unit Lactulose (Lactulose Liq) 30 ml PO DAILY PRN PRN Reason: SEVERE CONSITIPATION Ondansetron HCl (Zofran Inj) 4 mg IV.PUSH Q6H PRN PRN Reason: NAUSEA OR VOMITING Sennosides (Senokot) 17.2 mg PO Q12H PRN PRN Reason: Moderate Constipation Sodium Chloride (Ns Flush) 2 ml IV.FLUSH PRN PRN PRN Reason: FLUSH AFTER USING IV ACCESS Last Admin: 04/14/18 05:47 Dose: 2 ml Allergies Allergy/AdvReac Type Severity Reaction Status Date / Time fentanyl Allergy Severe SOB Verified 04/10/18 14:49 gadobenic acid Allergy Severe BREATHING Verified 04/10/18 14:49 PROBLEMS, N/V,CHILLS gadodiamide Allergy Severe BREATHING Verified 04/10/18 14:49 PROBLEMS, N/V,CHILLS gadoteridol Allergy Severe BREATHING Verified 04/10/18 14:49 PROBLEMS, N/V,CHILLS ketorolac Allergy Severe Shortness Verified 04/10/18 14:49 of Breath tramadol Allergy Mild Shortness Verified 04/10/18 14:49 of Breath Gadolinium-Containing AdvReac Severe nauseas Verified 04/10/18 14:49 Contrast Medi /vomiting morphine AdvReac Intermediate SOB Verified 04/10/18 21:18 MRI PRECAUTION AdvReac Severe NAUSEA; Uncoded 04/10/18 14:40 PER PATIENT IT IS A GADOLINIUM ALLERGY D 11/25/12 Home Medications Medication Instructions Recorded Confirmed Type insulin aspart U-100 [Novolog 1 sliding scale dose SUB-Q UD 01/31/18 04/10/18 History U-100 Insulin aspart] Exam Vital signs: Vital Signs 04/14/18 20:00 04/15/18 00:00 04/15/18 08:00 Temperature 99.1 F 98.8 F 97.6 F Pulse Rate 101 H 105 H 96 H Respiratory Rate 20 18 16 Blood Pressure 97/56 L 92/58 L 92/60 L Pulse Oximetry 97 97 96 04/15/18 12:00 04/15/18 16:00 Temperature 97.8 F 98.5 F Pulse Rate 87 89 Respiratory Rate 16 16 Blood Pressure 100/60 97/58 L Pulse Oximetry 97 99 Intake & Output 04/14/18 04/15/18 04/15/18 18:59 06:59 18:59 Intake Total 500 / 500 300 / 300 600 / 600 Balance 500 / 500 300 / 300 600 / 600 Weight 56.7 kg Intake: IV 500 / 500 300 / 300 600 / 600 Cipro 400 MG/200 ML Inj 400 mg 400 / 400 200 / 200 400 / 400 In 200 ml @ 200 mls/hr IV.SIG Q8H DESTINI Rx#:[id number] Flagyl 500 MG Inj 100 ML @ 100 100 / 100 100 / 100 200 / 200 mls/hr IV.SIG Q8H DESTINI Rx#: [id number] Other: # Voids 4 2 Date of Last Bowel Movement 04/14/18 04/14/18 04/15/18 # Bowel Movements 3 1 - Constitutional no acute distress, thin, chronically ill appearing - Routine HEENT Exam Head: Present: normocephalic, atraumatic Eye: Present: EOMI, PERRL, conjunctival icterus (mild) ENT: Present: mucous membranes moist. Absent: dentition normal (edentulous) - Routine Neck Exam Present: supple. Absent: JVD, lymphadenopathy - Routine Chest/Breast/Axilla Exam Axillae: Absent: lymphadenopathy - Routine Respiratory Exam Present: CTA bilaterally. Absent: decreased breath sounds, rhonchi, stridor - Routine Cardiovascular Exam Present: RRR, S1, S2. Absent: murmur, gallop, rubs - Routine Abdominal Exam Present: soft, normoactive bowel sounds, tenderness, distended (markedly), guarding. Absent: rebound, organomegaly, mass - Routine Extremities Exam Present: edema (mild), full ROM, normal capillary refill. Absent: cyanosis, clubbing - Routine Skin Exam Present: intact, dry, warm, jaundice - Routine Neurological Exam Present: alert, oriented X3, CN II-XII intact. Absent: sensory deficit, motor deficit - Routine Psychiatric Exam Present: normal affect, cooperative Results - Labs CBC & Chem 7: 04/13/18 05:13 04/15/18 04:25 Labs: Laboratory Results - last 24 hr 04/14/18 04/14/18 04/15/18 17:33 22:20 04:25 Sodium 139 Potassium 3.3 L Chloride 107 Carbon Dioxide 25.7 Anion Gap 6 BUN 10 Creatinine 0.24 L Estimated GFR Greater than 89 POC Glucose 160 H 230 H Random Glucose 63 L D Calcium 7.2 L* Calcium Adj for Albumin 8.3 L Magnesium 1.7 Total Bilirubin 2.6 H AST 111 H ALT 64 H Alkaline Phosphatase 961 H Total Protein 5.0 L Albumin 1.3 L 04/15/18 04/15/18 04/15/18 06:33 11:15 16:24 Sodium Potassium Chloride Carbon Dioxide Anion Gap BUN Creatinine Estimated GFR POC Glucose 70 192 H 224 H Random Glucose Calcium Calcium Adj for Albumin Magnesium Total Bilirubin AST ALT Alkaline Phosphatase Total Protein Albumin - Imaging Abdomen/Pelvis CT 04/10/18 14:46 CONCLUSION: 1. An apparent generalized colitis in the proper clinical setting, presumably infectious or inflammatory. Right side of the colon appears more severely involved than the rest of it. 2. A mild gastroenteritis is also possible. 3. No GI tract obstruction. 4. Since the prior exam, the 3 mm right renal stone has dislodged and is now in the distal right ureter. Associated minimal obstructive uropathy. I don't clearly see this stone on the initial psychometric examiner radiograph. 5. The 10 mm nonobstructing renal stone of the left lower pole is unchanged. 6. Heterogeneous cirrhotic liver with pneumobilia. There is increased size and enhancement of the vague lesion near the dome of the right hepatic lobe and this is of concern for a evolving hepatocellular carcinoma. 7. Small ascites and diffuse mesenteric edema. 8. Varices. 9. Previous splenectomy. 10. Atrophy of the pancreas and ductal dilatation in the tail region similar to before. No perceptible mass. 11. Tiny left pleural effusion, smaller. Assessment and Plan - Plan Biliary sepsis, clinically improved: now with normal temps and no leukocytosis Rimary biliary sclerosis ? hepatocellular carcinoma - bx needed Candiduaria vs candidal UTI Obstructive uropathy, renal stone Edematous colon, and small bowel, c.diff negative - presented with diarrhea, stool studies all negative - likley reflects generalised edema Multiple abx allergies REc's: cont current abx will add diflkucan po high dose repeat ua, c+s US kidney
--- NOTE | 2018-04-15 17:35 | P.PNADD ---
Addendum to Inpatient Note Additional information: pt seen, interviewed , examenid known to me A/P sepsis, biliary CHolangitis PBC improved on empiric abx mult abx allergies last time sepsis 22 panS Kleb - cont current abx full note to follow
[2018-04-15] MEDS: Lactobacillus Acidophilus/L. Spores Tablet PO SCH (20:27)
[2018-04-16] MEDS: HYDROmorphone PF Inj 0.5 MG/0.5 ML Syringe IV.PUSH PRN ×6 (02:14→22:13)
[2018-04-16] MEDS: Insulin NovoLOG Aspart Correctional Sugar Inj SQ SCH ×5 (02:17→22:12)
[2018-04-16] MEDS: Ciprofloxacin 400 MG/200 ML 400 MG/200 ML PIGGYBACK IV.SIG SCH ×3 (05:23→22:12)
[2018-04-16 07:22] LABS: Anion Gap 7 meq/L (5-15); Blood Urea Nitrogen 7 mg/dL (7-18); Calcium 7.2 mg/dL (8.5-10.1); Carbon Dioxide 24.7 meq/L (21.0-32.0); Chloride 107 meq/L (98-107); Glomerular Filtration Rate Greater Than 89 mL/min (>89); Glucose,Random 115 mg/dL (74-106); Magnesium 1.7 mg/dL (1.5-2.5); Potassium 3.3 meq/L (3.5-5.1); Sodium 139 meq/L (136-145)
[2018-04-16 07:49] LABS: Albumin 1.4 g/dL (3.4-5.0); Calcium-Albumin Corrected 9.3 mg/dL (8.5-10.1)
[2018-04-16] MEDS: Lactobacillus Acidophilus/L. Spores Tablet PO SCH ×3 (09:32→17:25)
[2018-04-16] MEDS: Insulin Detemir Inj 1,000 UNIT/10 ML Vial SQ SCH ×2 (09:32→22:13)
[2018-04-16] MEDS: Enoxaparin Inj 30 MG/0.3 ML Syringe SQ SCH (09:33)
--- NOTE | 2018-04-16 09:40 | P.PN ---
Subjective Interval history: Follow-up colitis and UTI. Ct diarrhea and dark urine . Per RN, formed stool Physical Exam Vital signs: Vital Signs 04/15/18 12:00 04/15/18 16:00 04/15/18 20:00 Temperature 97.8 F 98.5 F 98.3 F Pulse Rate 87 89 93 H Respiratory Rate 16 16 17 Blood Pressure 100/60 97/58 L 93/58 L Pulse Oximetry 97 99 95 04/15/18 21:40 04/16/18 00:00 04/16/18 01:59 Temperature 98.1 F Pulse Rate 97 H 98 H Respiratory Rate 18 18 Blood Pressure 97/65 L 92/60 L 100/69 Pulse Oximetry 97 04/16/18 08:00 Temperature 98 F Pulse Rate 81 Respiratory Rate 16 Blood Pressure 96/59 L Pulse Oximetry 96 Intake & Output 04/15/18 04/16/18 04/16/18 18:59 06:59 18:59 Intake Total 2100 / 2100 1600 / 1600 Balance 2100 / 2100 1600 / 1600 Weight 58.6 kg Intake: IV 600 / 600 600 / 600 Cipro 400 MG/200 ML Inj 400 mg 400 / 400 400 / 400 In 200 ml @ 200 mls/hr IV.SIG Q8H DESTINI Rx#:[id number] Flagyl 500 MG Inj 100 ML @ 100 200 / 200 200 / 200 mls/hr IV.SIG Q8H DESTINI Rx#: [id number] Oral 1500 / 1500 1000 / 1000 Other: # Voids 3 3 Date of Last Bowel Movement 04/15/18 04/15/18 # Bowel Movements 3 Narrative: chronically appearing 47yo f aaox3 nad pleasant heart s1s2 reg lungs clear no wrr full expansion abd soft +BS right CVA tenderness Extremities no edema or cyanosis Skin is warm no lesions Results - Labs CBC & Chem 7: 04/13/18 05:13 04/16/18 05:28 Laboratory Results - last 24 hr 04/15/18 04/15/18 04/15/18 11:15 16:24 20:26 Sodium Potassium Chloride Carbon Dioxide Anion Gap BUN Creatinine Estimated GFR POC Glucose 192 H 224 H 250 H Random Glucose Calcium Calcium Adj for Albumin Magnesium Albumin 04/16/18 05:28 Sodium 139 Potassium 3.3 L Chloride 107 Carbon Dioxide 24.7 Anion Gap 7 BUN 7 Creatinine 0.28 L Estimated GFR Greater than 89 POC Glucose Random Glucose 115 H Calcium 7.2 L* Calcium Adj for Albumin 9.3 Magnesium 1.7 Albumin 1.4 L Microbiology 04/13/18 15:08 Stool Enteric Pathogens (PCR) - Final No enteric pathogens detected by PCR (No Salmonella sp., Shigella sp., Campylobacter sp., Yersinia enterocolitica, Vibrio sp., Norovirus, or EHEC (Shiga Toxin 1 or Shiga Toxin 2) detected. 04/10/18 15:19 Blood - Peripheral Aerobic Blood Culture - Final No growth in 5 days 04/10/18 15:19 Blood - Peripheral Anaerobic Blood Culture - Final No growth in 5 days 04/10/18 15:13 Blood - Peripheral Aerobic Blood Culture - Final No growth in 5 days 04/10/18 15:13 Blood - Peripheral Anaerobic Blood Culture - Final No growth in 5 days - Imaging ITS Impressions Abdomen/Pelvis CT 04/10/18 14:46 CONCLUSION: 1. An apparent generalized colitis in the proper clinical setting, presumably infectious or inflammatory. Right side of the colon appears more severely involved than the rest of it. 2. A mild gastroenteritis is also possible. 3. No GI tract obstruction. 4. Since the prior exam, the 3 mm right renal stone has dislodged and is now in the distal right ureter. Associated minimal obstructive uropathy. I don't clearly see this stone on the initial digital content coordinator radiograph. 5. The 10 mm nonobstructing renal stone of the left lower pole is unchanged. 6. Heterogeneous cirrhotic liver with pneumobilia. There is increased size and enhancement of the vague lesion near the dome of the right hepatic lobe and this is of concern for a evolving hepatocellular carcinoma. 7. Small ascites and diffuse mesenteric edema. 8. Varices. 9. Previous splenectomy. 10. Atrophy of the pancreas and ductal dilatation in the tail region similar to before. No perceptible mass. 11. Tiny left pleural effusion, smaller. - Procedures none Assessment and Plan - Assessment (1) Colitis Code(s): K52.9 - Noninfective gastroenteritis and colitis, unspecified Status : Acute (2) Ascites Code(s): R18.8 - Other ascites Status: Chronic (3) Abdominal pain Code(s): R10.9 - Unspecified abdominal pain Status: Chronic - Plan ACUTE COLITIS with diarrhea, suspected infectious - cdif negative cont cipro flagyl, multiple hospitalizations and gi consult. Added Lactinex. Improving PSC/ CIRRHOSIS (drug induced) w min ascites on ct - compensated, will need fu w gi , start lasix and aldactone if tolerated LIVER MASS R hepatic lobe per ct - concern for hepatocellular ca per ct, AFP level 8.6 follow up w GI RENAL CALCULI - 3mm stone lodged in distal ureter w mild hydronephrosis - w hematuria and possible uti, on abx fu cx w C glabrata consulted ID started on high-dose Diflucan and follow-up pending abdominal ultrasound HX NHL DM insulin dependent remains uncontrolled, increase levemir to bid, cont diet and iss. CHRONIC PAIN/NARCOTIC dependence - pain management for acute pain indicated for now Hypoalbuminemia with low normal BP. Start IV albumin. Glucerna Hypokalemia from diarrhea. Start daily potassium and monitor DVT PROPHYLAXIS - lovenox Discharge Planning: Discharge when clinically improved possible in 1-2 days (2) Ascites Qualifiers: Ascites type: other type Qualified Code(s): R18.8 - Other ascites (3) Abdominal pain Qualifiers: Abdominal location: generalized Qualified Code(s): R10.84 - Generalized abdominal pain
[2018-04-16] MEDS: Albumin Human 25% Inj 100 ML IV.SIG SCH ×2 (10:35→17:25)
--- NOTE | 2018-04-16 10:58 | US ---
EXAM DATE: 04/16/2018 10:27 AM EST AGE/SEX: 47 years / Female INDICATIONS: Abnormal labs. CLINICAL DATA: This is the patient's initial encounter. Patient reports that signs and symptoms have been present for 1 day and indicates a pain score of 7/10. MEDICAL/SURGICAL HISTORY: Cirrhosis. Diabetes. Renal calculi. Gallstones. Hepatomegaly. Non Hodgkin's lymphoma. Splenectomy. Liver biopsy. COMPAR[place]: [facility] [place]EL[place] W CONTRAST, 04/10/2018. . MEASUREMENTS: Right Kidney:__13. x 7.0 x 5.8 cm Left Kidney:__13.6 x 4.8 x 5.9 cm FINDINGS: Right Kidney: Normal echotexture and cortical thickness. No mass or hydronephrosis. Left Kidney: Upper pole stone not well seen on this ultrasound exam. Normal cortical thickness and ec hogenicity. No evidence of hydronephrosis. Bladder: Within normal limits given the degree of distension. Other: Moderate ascites.. CONCLUSION: No hydronephrosis. Electronically signed by: Mele Limon MD 04/16/2018 10:57 AM EST
[2018-04-16 11:27] LABS: Bilirubin,Urine Small (Negative); Calcium Oxalate Crystals,Urine Rare /hpf; Clarity,Urine Cloudy (Clear); Color,Urine Amber (Yellw/Straw); Glucose,Urine (UA) Negative (Negative); Ictotest,Urine Positive (Negative); Leukocyte Esterase,Urine Moderate (Negative); Mucus,Urine Few /lpf (Occasional); Nitrite,Urine Negative (Negative); Specific Gravity,Urine 1.017 (1.002-1.035); Squamous Epithelial Cell,Urine 28 /hpf (0-5)
[2018-04-17] MEDS: HYDROmorphone PF Inj 0.5 MG/0.5 ML Syringe IV.PUSH PRN ×2 (02:09→06:08)
[2018-04-17] MEDS: Albumin Human 25% Inj 100 ML IV.SIG SCH ×2 (02:09→10:18)
[2018-04-17] MEDS: Insulin NovoLOG Aspart Correctional Sugar Inj SQ SCH ×3 (02:16→13:13)
[2018-04-17] MEDS: Ciprofloxacin 400 MG/200 ML 400 MG/200 ML PIGGYBACK IV.SIG SCH ×2 (06:09→14:42)
[2018-04-17 06:33] LABS: Anion Gap 7 meq/L (5-15); Blood Urea Nitrogen 9 mg/dL (7-18); Calcium 7.5 mg/dL (8.5-10.1); Carbon Dioxide 24.5 meq/L (21.0-32.0); Chloride 109 meq/L (98-107); Glomerular Filtration Rate Greater Than 89 mL/min (>89); Glucose,Random 75 mg/dL (74-106); Potassium 3.9 meq/L (3.5-5.1); Sodium 140 meq/L (136-145)
[2018-04-17] MEDS ORDERED: HYDROmorphone PF Inj 0.5 MG/0.5 ML Syringe IV.PUSH PRN (07:59)
--- NOTE | 2018-04-17 08:00 | P.PN ---
Subjective Interval history: Follow-up colitis and UTI. Improved stools per RN no diarrhea. No dysuria. Discussed with infectious disease and GI Physical Exam Vital signs: Vital Signs 04/16/18 08:00 04/16/18 12:00 04/16/18 20:00 Temperature 98 F 98.5 F 97.8 F Pulse Rate 81 84 89 Respiratory Rate 16 16 18 Blood Pressure 96/59 L 91/57 L 94/60 L Pulse Oximetry 96 97 98 04/17/18 00:00 04/17/18 02:10 Temperature 98.5 F Pulse Rate 96 H 100 H Respiratory Rate 15 18 Blood Pressure 92/54 L 111/76 Pulse Oximetry 94 L Intake & Output 04/16/18 04/17/18 04/17/18 18:59 06:59 18:59 Intake Total 1600 / 1600 1200 / 1200 Balance 1600 / 1600 1200 / 1200 Weight 58.6 kg Intake: IV 400 / 400 600 / 600 Flexbumin 25% Inj 100 ML @ 60 100 / 100 200 / 200 mls/hr IV.SIG Q8H DESTINI Rx#: [id number] Cipro 400 MG/200 ML Inj 400 mg 200 / 200 200 / 200 In 200 ml @ 200 mls/hr IV.SIG Q8H DESTINI Rx#:[id number] Flagyl 500 MG Inj 100 ML @ 100 100 / 100 200 / 200 mls/hr IV.SIG Q8H DESTINI Rx#: [id number] Oral 1200 / 1200 600 / 600 Other: # Voids 3 Date of Last Bowel Movement 04/16/18 # Bowel Movements 3 2 Narrative: chronically appearing 47yo f aaox3 nad pleasant heart s1s2 reg lungs clear no wrr full expansion abd soft +BS Extremities no cyanosis with bilateral lower extremity pitting edema distal leg Skin is warm no lesions Results - Labs CBC & Chem 7: 04/13/18 05:13 04/17/18 05:20 Laboratory Results - last 24 hr 04/16/18 04/16/18 04/16/18 02:17 07:36 10:44 Sodium Potassium Chloride Carbon Dioxide Anion Gap BUN Creatinine Estimated GFR POC Glucose 85 100 Random Glucose Calcium Magnesium Urine Color Urine Clarity Urine pH Ur Specific [place] Urine Protein Urine Glucose (UA) Urine Ketones Urine Occult Blood Urine Nitrate Urine Bilirubin Urine Ictotest Urine Urobilinogen Ur Leukocyte Esterase Urine RBC Urine WBC Ur Squamous Epith Cells Calcium Oxalate Crystal Urine Mucus Urine Yeast Micro UA Comment Ur Microscopic Review Urine Culture Comments Stl C.difficile DNA Amp Negative St C. diff Tox Epid 027 Negative 04/16/18 04/16/18 04/16/18 10:44 12:02 12:13 Sodium Potassium Chloride Carbon Dioxide Anion Gap BUN Creatinine Estimated GFR POC Glucose 104 Random Glucose Calcium Magnesium 1.8 Urine Color Sheri Urine Clarity Cloudy H Urine pH 6.0 Ur Specific [place] 1.017 Urine Protein 30 H Urine Glucose (UA) Negative Urine Ketones Negative Urine Occult Blood Negative Urine Nitrate Negative Urine Bilirubin Small H Urine Ictotest Positive H Urine Urobilinogen 2.0 H Ur Leukocyte Esterase Moderate H Urine RBC 25 H Urine WBC 59 H Ur Squamous Epith Cells 28 Calcium Oxalate Crystal Rare H Urine Mucus Few H Urine Yeast Many H Micro UA Comment Cath-culture ind Ur Microscopic Review Not Reportable Urine Culture Comments Cath-cult indicated Stl C.difficile DNA Amp St C. diff Tox Epid 027 04/16/18 04/16/18 04/17/18 17:24 21:05 02:16 Sodium Potassium Chloride Carbon Dioxide Anion Gap BUN Creatinine Estimated GFR POC Glucose 156 H 163 H 145 H Random Glucose Calcium Magnesium Urine Color Urine Clarity Urine pH Ur Specific [place] Urine Protein Urine Glucose (UA) Urine Ketones Urine Occult Blood Urine Nitrate Urine Bilirubin Urine Ictotest Urine Urobilinogen Ur Leukocyte Esterase Urine RBC Urine WBC Ur Squamous Epith Cells Calcium Oxalate Crystal Urine Mucus Urine Yeast Micro UA Comment Ur Microscopic Review Urine Culture Comments Stl C.difficile DNA Amp St C. diff Tox Epid 027 04/17/18 04/17/18 05:20 07:39 Sodium 140 Potassium 3.9 Chloride 109 H Carbon Dioxide 24.5 Anion Gap 7 BUN 9 Creatinine 0.23 L Estimated GFR Greater than 89 POC Glucose 83 Random Glucose 75 Calcium 7.5 L Magnesium 2.0 Urine Color Urine Clarity Urine pH Ur Specific [place] Urine Protein Urine Glucose (UA) Urine Ketones Urine Occult Blood Urine Nitrate Urine Bilirubin Urine Ictotest Urine Urobilinogen Ur Leukocyte Esterase Urine RBC Urine WBC Ur Squamous Epith Cells Calcium Oxalate Crystal Urine Mucus Urine Yeast Micro UA Comment Ur Microscopic Review Urine Culture Comments Stl C.difficile DNA Amp St C. diff Tox Epid 027 - Imaging Impressions Abdomen/Bladder Ultrasound 04/16/18 00:00 CONCLUSION: No hydronephrosis. - Procedures none Assessment and Plan - Assessment (1) Colitis Code(s): K52.9 - Noninfective gastroenteritis and colitis, unspecified Status : Acute (2) Ascites Code(s): R18.8 - Other ascites Status: Chronic (3) Abdominal pain Code(s): R10.9 - Unspecified abdominal pain Status: Chronic - Plan ACUTE COLITIS with diarrhea, suspected infectious - cdif negative cont cipro flagyl, multiple hospitalizations and gi consult. Added Lactinex. Improving PSC/ CIRRHOSIS (drug induced) w min ascites on ct - compensated, will need fu w gi , start lasix and aldactone if tolerated LIVER MASS R hepatic lobe per ct - concern for hepatocellular ca per ct, AFP level 8.6 follow up w GI RENAL CALCULI - 3mm stone lodged in distal ureter w mild hydronephrosis - w hematuria and possible uti, on abx fu cx w C glabrata consulted ID started on high-dose Diflucan and abdominal ultrasound HX NHL DM insulin dependent remains uncontrolled, increase levemir to bid, cont diet and iss. CHRONIC PAIN/NARCOTIC dependence - pain management for acute pain indicated for now, will decrease IV Dilaudid. Eforcse queried not on scheduled pain meds. Hypoalbuminemia with low normal BP. Continue IV albumin. Glucerna Hypokalemia from diarrhea. Start daily potassium and monitor DVT PROPHYLAXIS - lovenox Discharge Planning: She is medically stable. She can be discharged today (2) Ascites Qualifiers: Ascites type: other type Qualified Code(s): R18.8 - Other ascites (3) Abdominal pain Qualifiers: Abdominal location: generalized Qualified Code(s): R10.84 - Generalized abdominal pain
[2018-04-17] MEDS: Enoxaparin Inj 30 MG/0.3 ML Syringe SQ SCH (10:18)
[2018-04-17] MEDS: Lactobacillus Acidophilus/L. Spores Tablet PO SCH ×2 (10:18→13:14)
[2018-04-17] MEDS: Insulin Detemir Inj 1,000 UNIT/10 ML Vial SQ SCH (10:18)
[2018-04-17 13:25] VITALS: BP 110/71; PULSE 86; RESP 19; TEMP 97.9; O2SAT 96
--- NOTE | 2018-04-17 13:58 | P.PNGI ---
Subjective Interval history: Patient sitting up at bedside Significant other visiting Reports "mushy" stools x4 today Denies any noted bleeding No nausea or vomiting <Raymond,Madyson - Last Filed: 04/17/18 13:55> Physical Exam Vital signs: Vital Signs 04/16/18 20:00 04/17/18 00:00 04/17/18 02:10 Temperature 97.8 F 98.5 F Pulse Rate 89 96 H 100 H Respiratory Rate 18 15 18 Blood Pressure 94/60 L 92/54 L 111/76 Pulse Oximetry 98 94 L 04/17/18 08:00 04/17/18 12:00 Temperature 98.1 F 97.9 F Pulse Rate 84 86 Respiratory Rate 18 19 Blood Pressure 92/59 L 110/71 Pulse Oximetry 97 96 Intake & Output 04/16/18 04/17/18 04/17/18 18:59 06:59 18:59 Intake Total 1600 / 1600 1200 / 1200 300 / 300 Balance 1600 / 1600 1200 / 1200 300 / 300 Weight 58.6 kg Intake: IV 400 / 400 600 / 600 300 / 300 Flexbumin 25% Inj 100 ML @ 60 100 / 100 200 / 200 100 / 100 mls/hr IV.SIG Q8H DESTINI Rx#: [id number] Cipro 400 MG/200 ML Inj 400 mg 200 / 200 200 / 200 200 / 200 In 200 ml @ 200 mls/hr IV.SIG Q8H DESTINI Rx#:[id number] Flagyl 500 MG Inj 100 ML @ 100 100 / 100 200 / 200 mls/hr IV.SIG Q8H DESTINI Rx#: [id number] Oral 1200 / 1200 600 / 600 Other: # Voids 3 Date of Last Bowel Movement 04/16/18 # Bowel Movements 3 2 - Constitutional no acute distress, chronically ill appearing - Routine HEENT Exam Head: Present: normocephalic - Routine Respiratory Exam Present: CTA bilaterally. Absent: accessory muscle use - Routine Cardiovascular Exam Present: RRR - Routine Abdominal Exam Present: soft, normoactive bowel sounds, tenderness, distended. Absent: guarding, firm, rigid Comments: Patient reports continued abdominal generalized tenderness with palpation on exam - Routine Extremities Exam Present: edema - Routine Skin Exam Present: dry, warm - Routine Neurological Exam Present: alert <Raymond,Madyson - Last Filed: 04/17/18 13:55> Vital signs: Vital Signs 04/16/18 20:00 04/17/18 00:00 04/17/18 02:10 Temperature 97.8 F 98.5 F Pulse Rate 89 96 H 100 H Respiratory Rate 18 15 18 Blood Pressure 94/60 L 92/54 L 111/76 Pulse Oximetry 98 94 L 04/17/18 08:00 04/17/18 12:00 Temperature 98.1 F 97.9 F Pulse Rate 84 86 Respiratory Rate 18 19 Blood Pressure 92/59 L 110/71 Pulse Oximetry 97 96 Intake & Output 04/16/18 04/17/18 04/17/18 18:59 06:59 18:59 Intake Total 1600 / 1600 1200 / 1200 500 / 500 Balance 1600 / 1600 1200 / 1200 500 / 500 Weight 58.6 kg Intake: IV 400 / 400 600 / 600 500 / 500 Flexbumin 25% Inj 100 ML @ 60 100 / 100 200 / 200 100 / 100 mls/hr IV.SIG Q8H DESTINI Rx#: [id number] Cipro 400 MG/200 ML Inj 400 mg 200 / 200 200 / 200 300 / 300 In 200 ml @ 200 mls/hr IV.SIG Q8H DESTINI Rx#:[id number] Flagyl 500 MG Inj 100 ML @ 100 100 / 100 200 / 200 100 / 100 mls/hr IV.SIG Q8H DESTINI Rx#: [id number] Oral 1200 / 1200 600 / 600 Other: # Voids 3 Date of Last Bowel Movement 04/16/18 04/16/18 # Bowel Movements 3 2 <Junior Crawford - Last Filed: 04/17/18 16:29> Results - Labs CBC & Chem 7: 04/13/18 05:13 04/17/18 05:20 Laboratory Results - last 24 hr 04/16/18 04/16/18 04/17/18 17:24 21:05 02:16 Sodium Potassium Chloride Carbon Dioxide Anion Gap BUN Creatinine Estimated GFR POC Glucose 156 H 163 H 145 H Random Glucose Calcium Magnesium 04/17/18 04/17/18 04/17/18 05:20 07:39 11:31 Sodium 140 Potassium 3.9 Chloride 109 H Carbon Dioxide 24.5 Anion Gap 7 BUN 9 Creatinine 0.23 L Estimated GFR Greater than 89 POC Glucose 83 195 H Random Glucose 75 Calcium 7.5 L Magnesium 2.0 - Procedures none <Madyson Raymond - Last Filed: 04/17/18 13:55> - Labs CBC & Chem 7: 04/13/18 05:13 04/17/18 05:20 Laboratory Results - last 24 hr 04/16/18 04/16/18 04/17/18 17:24 21:05 02:16 Sodium Potassium Chloride Carbon Dioxide Anion Gap BUN Creatinine Estimated GFR POC Glucose 156 H 163 H 145 H Random Glucose Calcium Magnesium 04/17/18 04/17/18 04/17/18 05:20 07:39 11:31 Sodium 140 Potassium 3.9 Chloride 109 H Carbon Dioxide 24.5 Anion Gap 7 BUN 9 Creatinine 0.23 L Estimated GFR Greater than 89 POC Glucose 83 195 H Random Glucose 75 Calcium 7.5 L Magnesium 2.0 Microbiology 04/16/18 10:44 Catheterized Urine Urine Culture - Preliminary Yeast - ID to follow <Junior Crawford - Last Filed: 04/17/18 16:29> Assessment and Plan (1) Colitis Status: Acute Code(s): K52.9 - Noninfective gastroenteritis and colitis, unspecified (2) Ascites Status: Chronic Code(s): R18.8 - Other ascites (3) Abdominal pain Status: Chronic Code(s): R10.9 - Unspecified abdominal pain - Plan This patient is a 47-year-old female with a past medical history of non-Hodgkin' s lymphoma, nonalcoholic cirrhosis, drug induced hepatic injury, previous biliary stent, and diabetes mellitus. Patient presented to the emergency room at [facility] with complaint of abdominal pain and bloating, bilateral lower extremity edema, nausea, vomiting and loose stools. Patient endorses having a fever of 102 at home with increasing generalized weakness. Upon consultation, patient reports 4-day history of loose green to yellow colored stool. Patient endorses accompanied fever times 1 day of 102 F. Patient denies any recent travel or sick contacts. Patient also reports right upper quadrant pain that is chronic with intermittent nausea. Patient denies any noted bleeding. Our service has been consulted to evaluate patient for colitis. Colitis -Patient endorses 4-day history of loose green to yellow colored stools. Fever of 102 x 1 day. -04/10/2018 CT abdomen and pelvis: 1. An apparent generalized colitis in the proper clinical setting, presumably infectious or inflammatory. Right side of the colon appears more severely involved than the rest of it. 2. A mild gastroenteritis is also possible. 3. No GI tract obstruction. 4. Since the prior exam, the 3 mm right renal stone has dislodged and is now in the distal right ureter. Associated minimal obstructive uropathy. 5. The 10 mm nonobstructing renal stone of the left lower pole is unchanged. 6. Heterogeneous cirrhotic liver with pneumobilia. There is increased size and enhancement of the vague lesion near the dome of the right hepatic lobe and this is of concern for a evolving hepatocellular carcinoma. 7. Small ascites and diffuse mesenteric edema. 8. Varices. 9. Previous splenectomy. -04/13/2018 WBC 9.0 hemoglobin 10.0 hematocrit 30.0 platelet count 206 -04/12/2018 total bilirubin 3.8 AST 136 ALT 101 alk phos 1056 04/14/2018 Colitis Patient reports continued loose green stool No fever today. Denies any nausea or vomiting Reports intermittent generalized abdominal discomfort. No new labs today 04/15/2018, patient states decreased appetite but is eating small amounts of food brought in from a friend. Encourage small feedings with hydration. Patient states 3 loose brown stools today not related to feeding time, last hemoglobin check 10., no obvious bleeding. We will continue treatment for colitis associated with fever initially, treated infectious versus inflammatory Anemia chronic, probably secondary to her cirrhotic liver. Abdomen shows mild distention without obvious changes. 04/17/2018 Colitis Patient reports brown mushy stool x4 today Denies fever or bleeding Abdomen mildly distended with generalized discomfort unchanged as per patient Plan Diet as tolerated per attending Cipro and Flagyl Pain management per attending's Monitor labs and monitor for any obvious bleeding Supportive care, once patient is stable from her abdominal pain and back to her baseline number of stools per day GI can follow-up on an outpatient basis Patient was seen per myself and Dr. Crawford, note was written on his behalf - Attending Attestation Dr. Crawford <Madyson Raymond - Last Filed: 04/17/18 13:55> (1) Colitis Status: Acute Code(s): K52.9 - Noninfective gastroenteritis and colitis, unspecified (2) Ascites Status: Chronic Code(s): R18.8 - Other ascites (3) Abdominal pain Status: Chronic Code(s): R10.9 - Unspecified abdominal pain - Attending Attestation Agree with above assessment and plan. Doing better clinically. Will follow up with you. <Junior Crawford - Last Filed: 04/17/18 16:29> <Madyson Raymond - Last Filed: 04/17/18 13:55> (2) Ascites Qualifiers: Ascites type: other type Qualified Code(s): R18.8 - Other ascites (3) Abdominal pain Qualifiers: Abdominal location: generalized Qualified Code(s): R10.84 - Generalized abdominal pain <Junior Crawford - Last Filed: 04/17/18 16:29> (2) Ascites Qualifiers: Ascites type: other type Qualified Code(s): R18.8 - Other ascites (3) Abdominal pain Qualifiers: Abdominal location: generalized Qualified Code(s): R10.84 - Generalized abdominal pain
[2018-04-17] MEDS ORDERED: HYDROmorphone PF Inj 0.5 MG/0.5 ML Syringe IV.PUSH ONE (14:30)
--- NOTE | 2018-04-17 16:01 | P.DS ---
Date of admission: 04/10/18 18:38 Primary care physician: Arilele Perez MD Brief History from admission: 47-year-old female well-known to me with a past medical history of non-Hodgkin' s lymphoma who underwent chemotherapy in 2004 and nonalcoholic cirrhosis with liver biopsy done on 08/03 showing drug-induced hepatic injury, previously biliary stent and diabetes mellitus presents to the emergency department for the evaluation of abdominal pain and swelling, bilateral lower extremity edema, nausea/vomiting/diarrhea. The patient reports she believes she needs a paracentesis. She cannot remember when her last paracentesis was done however believes it was during her previous hospital stay at the end of February. The patient reports she had a fever of 103 at home. Temp in emergency department 102.4. She denies any chest pain. Positive shortness of breath. Positive generalized weakness. DS: Diagnosis - Discharge Diagnosis (1) Colitis Status: Acute (2) Ascites Status: Chronic (3) Abdominal pain Status: Chronic DS: Medications - Discharge Medications Prescriptions: acidophilus-sporogenes [Acidophilus Ex Str (L. sporog)] 1 tab PO TID #30 tab ciprofloxacin HCl 500 mg PO Q12HR #6 tab fluconazole 400 mg PO DAILY #10 tab metronidazole 500 mg PO Q8HR #9 tab DS: Summary Hospital Course: ACUTE COLITIS with diarrhea, suspected infectious - cdif negative cont cipro flagyl, multiple hospitalizations and gi consult. Added Lactinex. Improving PSC/ CIRRHOSIS (drug induced) w min ascites on ct - compensated, will need fu w gi , start lasix and aldactone if tolerated LIVER MASS R hepatic lobe per ct - concern for hepatocellular ca per ct, AFP level 8.6 follow up w GI RENAL CALCULI - 3mm stone lodged in distal ureter w mild hydronephrosis - w hematuria and possible uti, on abx fu cx w C glabrata consulted ID started on high-dose Diflucan and abdominal ultrasound HX NHL DM insulin dependent remains uncontrolled, increase levemir to bid, cont diet and iss. CHRONIC PAIN/NARCOTIC dependence - pain management for acute pain indicated for now, will decrease IV Dilaudid. Eforcse queried not on scheduled pain meds. Hypoalbuminemia with low normal BP. Improved on IV albumin. Glucerna Hypokalemia from diarrhea. Start daily potassium and monitor DVT PROPHYLAXIS - lovenox - Time Spent with Patient Total time spent providing and/or coordinating discharge services: Greater than 30 minutes Exam Vital signs: Vital Signs 04/16/18 20:00 04/17/18 00:00 04/17/18 02:10 Temperature 97.8 F 98.5 F Pulse Rate 89 96 H 100 H Respiratory Rate 18 15 18 Blood Pressure 94/60 L 92/54 L 111/76 Pulse Oximetry 98 94 L 04/17/18 08:00 04/17/18 12:00 Temperature 98.1 F 97.9 F Pulse Rate 84 86 Respiratory Rate 18 19 Blood Pressure 92/59 L 110/71 Pulse Oximetry 97 96 Intake & Output 04/16/18 04/17/18 04/17/18 18:59 06:59 18:59 Intake Total 1600 / 1600 1200 / 1200 500 / 500 Balance 1600 / 1600 1200 / 1200 500 / 500 Weight 58.6 kg Intake: IV 400 / 400 600 / 600 500 / 500 Flexbumin 25% Inj 100 ML @ 60 100 / 100 200 / 200 100 / 100 mls/hr IV.SIG Q8H DESTINI Rx#: [id number] Cipro 400 MG/200 ML Inj 400 mg 200 / 200 200 / 200 300 / 300 In 200 ml @ 200 mls/hr IV.SIG Q8H DESTINI Rx#:[id number] Flagyl 500 MG Inj 100 ML @ 100 100 / 100 200 / 200 100 / 100 mls/hr IV.SIG Q8H DESTINI Rx#: [id number] Oral 1200 / 1200 600 / 600 Other: # Voids 3 Date of Last Bowel Movement 04/16/18 04/16/18 # Bowel Movements 3 2 Narrative: chronically appearing 47yo f aaox3 nad pleasant heart s1s2 reg lungs clear no wrr full expansion abd soft +BS Extremities no cyanosis with bilateral lower extremity pitting edema distal leg Skin is warm no lesions Results Procedures completed during hospitalization: none Labs on day of discharge: Labs from last 24 hours 04/17/18 04/17/18 04/17/18 11:31 07:39 05:20 Sodium 140 Potassium 3.9 Chloride 109 H Carbon Dioxide 24.5 Anion Gap 7 BUN 9 Creatinine 0.23 L Estimated GFR Greater than 89 POC Glucose 195 H 83 Random Glucose 75 Calcium 7.5 L Magnesium 2.0 04/17/18 04/16/18 04/16/18 02:16 21:05 17:24 Sodium Potassium Chloride Carbon Dioxide Anion Gap BUN Creatinine Estimated GFR POC Glucose 145 H 163 H 156 H Random Glucose Calcium Magnesium Preliminary micro results at discharge 04/16/18 10:44 Urine Culture - Preliminary Catheterized Urine Yeast - ID to follow - Impressions ITS Impressions Abdomen/Pelvis CT 04/10/18 14:46 CONCLUSION: 1. An apparent generalized colitis in the proper clinical setting, presumably infectious or inflammatory. Right side of the colon appears more severely involved than the rest of it. 2. A mild gastroenteritis is also possible. 3. No GI tract obstruction. 4. Since the prior exam, the 3 mm right renal stone has dislodged and is now in the distal right ureter. Associated minimal obstructive uropathy. I don't clearly see this stone on the initial systems lead radiograph. 5. The 10 mm nonobstructing renal stone of the left lower pole is unchanged. 6. Heterogeneous cirrhotic liver with pneumobilia. There is increased size and enhancement of the vague lesion near the dome of the right hepatic lobe and this is of concern for a evolving hepatocellular carcinoma. 7. Small ascites and diffuse mesenteric edema. 8. Varices. 9. Previous splenectomy. 10. Atrophy of the pancreas and ductal dilatation in the tail region similar to before. No perceptible mass. 11. Tiny left pleural effusion, smaller. Abdomen/Bladder Ultrasound 04/16/18 00:00 CONCLUSION: No hydronephrosis. Discharge Plan - Discharge Disposition Patient Disposition: 01 Discharge Home - Discharge Condition Condition: Stable - Discharge Order Discharge Orders: Discharge Order (Routine); Ordered 04/17/18 Ordered By: Dillon Landeros - Discharge Details Anticipated Discharge Date: 04/10/18 - Physicians Team Primary Care Provider: Arielle Perez Attending Provider: Dillon Landeros Other Providers: Junior Crawford MD ; Christiane Jackson MD
[2018-04-17] MEDS ORDERED: Ciprofloxacin 500 MG Tablet PO SCH (21:00)
[2018-04-17] MEDS ORDERED: metroNIDAZOLE 500 MG Tablet PO SCH (22:00)
== END 2018-04-17 16:32 | disposition home or self-care (01) ==
LOC: NEPC 14:35 → NEDA 18:38 → N07 20:44
PROVIDERS: ADMIT Internal Medicine; ATTEND Internal Medicine
DX: Z88.5 Allergy status to narcotic agent; E88.09 Other disorders of plasma-protein metabolism, not elsewhere classified; K75.9 Inflammatory liver disease, unspecified; E11.9 Type 2 diabetes mellitus without complications; R18.8 Other ascites; Z87.442 Personal history of urinary calculi; Z82.49 Family history of ischemic heart disease and other diseases of the circulatory system; G89.29 Other chronic pain; E87.6 Hypokalemia; F11.20 Opioid dependence, uncomplicated; Z85.72 Personal history of non-Hodgkin lymphomas; Z90.81 Acquired absence of spleen; R53.1 Weakness; K52.9 Noninfective gastroenteritis and colitis, unspecified; Z79.4 Long term (current) use of insulin; K74.60 Unspecified cirrhosis of liver; N13.6 Pyonephrosis; A41.9 Sepsis, unspecified organism; Z92.21 Personal history of antineoplastic chemotherapy; C22.0 Liver cell carcinoma